=== PATIENT | female | born 1970 | race Hispanic/Latino ===

== ENCOUNTER 2017-12-10 20:14 | Emergency (ER) | payer OTHER ==
[2017-12-10 21:38] LABS: Potassium 4.1 mEq/L (3.6-5.0)
[2017-12-10 22:10] LABS: MCH 28.6 pg (27.0-35.0); MCV 86.6 fL (80-100); MPV 8.4 fL (7.6-11.3); RBC Red Blood Cell Count 3.47 M/uL (3.86-4.86)
[2017-12-10 22:32] LABS: Blood Morphology Comment NOT SEEN (NOT SEEN); Platelet Estimate ADEQ
--- NOTE | 2017-12-10 22:35 | ER ---
Nurse's Notes [facility] Name: Jazmín Perez Age: 47 yrs Sex: Female : 1970 Arrival Date: 12/10/2017 Time: 20:15 Bed 30 Private MD: Diagnosis: Chest pain, unspecified Presentation: 12/10 20:25 Presenting complaint: Patient states: left chest wall pain since 1500. pt c/o left arm ak1 pain with palpation. pt denies N/V, denies SOB. Transition of care: patient was not received from another setting of care. Onset of symptoms was December 10, 2017. Initial Sepsis Screen: Does the patient meet any 2 criteria? No. Patient's initial sepsis screen is negative. Does the patient have a suspected source of infection? No. Patient's initial sepsis screen is negative. Care prior to arrival: None. 20:25 Method Of Arrival: Ambulatory ak1 20:25 Acuity: LOU 3 ak1 Triage Assessment: 20:27 General: Appears in no apparent distress. General: Appears Behavior is calm, ak1 cooperative. Pain: Complains of pain in chest. EENT: No signs and/or symptoms were reported regarding the EENT system. Neuro: No deficits noted. Cardiovascular: Reports chest pain. Respiratory: No deficits noted. GI: No signs and/or symptoms were reported involving the gastrointestinal system. : No signs and/or symptoms were reported regarding the genitourinary system. Derm: No signs and/or symptoms reported regarding the dermatologic system. Musculoskeletal: No signs and/or symptoms reported regarding the musculoskeletal system. 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 - Social history:: Smoking status: Patient/guardian denies using tobacco. - Family history:: not pertinent. - Hospitalizations: : No recent hospitalization is reported. Assessment: 23:00 Reassessment: Patient appears in no apparent distress at this time. Patient is alert, aa1 oriented x 3, equal unlabored respirations, skin warm/dry/pink. Discussed d/c \T\ f/u instructions with pt; denies questions or concerns at this time Patient states feeling better. Vital Signs: 20:27 BP 137 / 61; Pulse 85; Resp 20; Temp 98.3(TE); Pulse Ox 98% on R/A; Weight 117.93 kg ak1 (R); Height 5 ft. 2 in. (157.48 cm) (R); Pain 7/10; 23:00 BP 122 / 76; Pulse 81; Resp 18; Pulse Ox 99% on R/A; Pain 0/10; aa1 20:27 Body Mass Index 47.55 (117.93 kg, 157.48 cm) ak1 ED Course: 20:15 Patient arrived in ED. al2 20:26 Triage completed. ak1 20:27 Arm band placed on Patient placed in an exam room, on a stretcher, Patient notified of ak1 wait time. 20:35 Krzysztof Em MD is Attending Physician. rn 20:43 EKG done, by ED staff, reviewed by Krzysztof Em MD. aa1 20:44 Dago Gunter, BERNABE is Primary Nurse. mb3 20:53 X-ray completed. Portable x-ray completed in exam room. Patient tolerated procedure ml well. 20:54 XRAY Chest (1 view) In Process Unspecified. EDMS 21:00 Inserted saline lock: 20 gauge in left forearm, using aseptic technique. Patient mb3 maintains SpO2 saturation greater than 95% on room air. 23:02 No provider procedures requiring assistance completed. IV discontinued, intact, aa1 bleeding controlled, No redness/swelling at site. Pressure dressing applied. Administered Medications: 22:56 Drug: Ibuprofen 800 mg Route: PO; aa1 23:04 Follow up: Response: No adverse reaction; Medication administered at discharge. aa1 Outcome: 22:33 Discharge ordered by MD. rn 23:00 Discharged to home ambulatory, with family. aa1 23:00 Condition: good 23:00 Discharge instructions given to patient, family, Instructed on discharge instructions, follow up and referral plans. medication usage, Demonstrated understanding of instructions, follow-up care, medications. 23:04 Patient left the ED. aa1 Signatures: Dispatcher [employer] EDMS Hermelinda Galo RN RN arlette1 Yeni Infante Roman, MD MD rn Krenek, Amber, RN RN della1 Oliva Henson Mark, RN RN mb3
--- NOTE | 2017-12-10 22:35 | EDPHYS ---
Physician Documentation [facility] Name: Jazmín Perez Age: 47 yrs Sex: Female : 1970 Arrival Date: 12/10/2017 Time: 20:15 Bed 30 Private MD: ED Physician Krzysztof Em HPI: 12/10 21:07 This 47 yrs old Female presents to ER via Ambulatory with complaints of Chest rn Pain, LEFT ARM NUMBNESS. 21:07 The patient or guardian reports chest pain that is located primarily in the anterior rn chest wall, left. Onset: today. The pain radiates to the left arm. The chest pain is described as aching. Duration: The patient or guardian reports a single episode, that is still ongoing. Severity of pain: At its worst the pain was mild in the emergency department the pain is unchanged. The patient has not experienced similar symptoms in the past. Reports doing normal stuff today, + left upper outer chest wall pain, shoots to proximal shoulder, no injury, left handed, does work with arms a lot, no fever/cough/sob, constant chest pain since this early afternoon. No famhx of early cardiac problems/SC. 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 - Social history:: Smoking status: Patient/guardian denies using tobacco. - Family history:: not pertinent. - Hospitalizations: : No recent hospitalization is reported. ROS: 21:07 Constitutional: Negative for fever, chills, and weight loss, Eyes: Negative for injury, rn pain, redness, and discharge, Neck: Negative for injury, pain, and swelling, Cardiovascular: Negative for edema, Respiratory: Negative for shortness of breath, cough, wheezing, and pleuritic chest pain, Abdomen/GI: Negative for abdominal pain, nausea, vomiting, diarrhea, and constipation, Back: Negative for injury and pain, MS/Extremity: Negative for injury and deformity, Skin: Negative for injury, rash, and discoloration, Neuro: Negative for headache, weakness, and seizure. Exam: 20:43 ECG was reviewed by the Attending Physician. rn 21:07 Constitutional: Overweight female, no acute distress Head/Face: Normocephalic, rn atraumatic. Eyes: Pupils equal round and reactive to light, extra-ocular motions intact. Lids and lashes normal. Conjunctiva and sclera are non-icteric and not injected. Cornea within normal limits. Periorbital areas with no swelling, redness, or edema. Neck: Trachea midline, no thyromegaly or masses palpated, and no cervical lymphadenopathy. Supple, full range of motion without nuchal rigidity, or vertebral point tenderness. No Meningismus. Chest/axilla: + reproducible left anterior/upper/outer chest tenderness, no crepitus Cardiovascular: Regular rate and rhythm with a normal S1 and S2. No gallops, murmurs, or rubs. Normal PMI, no JVD. No pulse deficits. Respiratory: Lungs have equal breath sounds bilaterally, clear to auscultation and percussion. No rales, rhonchi or wheezes noted. No increased work of breathing, no retractions or nasal flaring. Abdomen/GI: Soft, non-tender, with normal bowel sounds. No distension or tympany. No guarding or rebound. No evidence of tenderness throughout. Skin: Warm, dry with normal turgor. Normal color with no rashes, no lesions, and no evidence of cellulitis. MS/ Extremity: Pulses equal, no cyanosis. Neurovascular intact. Full, normal range of motion. Equal circumference. Neuro: Awake and alert, GCS 15, oriented to person, place, time, and situation. Cranial nerves II-XII grossly intact. Motor strength 5/5 in all extremities. Sensory grossly intact. Cerebellar exam normal. Normal gait. Vital Signs: 20:27 BP 137 / 61; Pulse 85; Resp 20; Temp 98.3(TE); Pulse Ox 98% on R/A; Weight 117.93 kg ak1 (R); Height 5 ft. 2 in. (157.48 cm) (R); Pain 7/10; 23:00 BP 122 / 76; Pulse 81; Resp 18; Pulse Ox 99% on R/A; Pain 0/10; aa1 20:27 Body Mass Index 47.55 (117.93 kg, 157.48 cm) ak1 MDM: 20:35 Patient medically screened. rn 20:43 ED course: no Change in ECG compared to 2007, twave inversions still present. rn 22:32 Differential diagnosis: acute myocardial infarction, acute pericarditis, coronary rn artery disease chest wall pain, costochondritis, esophagitis, gastritis, gastroesophageal reflux disease (GERD), pleurisy, pneumothorax. Data reviewed: vital signs, nurses notes, lab test result(s), EKG, radiologic studies, plain films, and as a result, I will discharge patient. Counseling: I had a detailed discussion with the patient and/or guardian regarding: the historical points, exam findings, and any diagnostic results supporting the discharge/admit diagnosis, lab results, radiology results, the need for outpatient follow up, to return to the emergency department if symptoms worsen or persist or if there are any questions or concerns that arise at home. Special discussion: Based on the patient's history, exam, and Dx evaluation, there is no indication for emergent intervention or inpatient Tx. It is understood by the patient/guardian that if the Sx's persist or worsen they need to return immediately for re-evaluation. I discussed with the patient/guardian in detail that at this point there is no indication for admission to the hospital. It is understood, however, that if the symptoms persist or worsen the patient needs to return immediately for re-evaluation. ED course: Reproducible chest wall tenderness, no change or ischemia on ecg, trop neg, will dc home with cardiology and pcp f/u. . 12/10 20:42 Order name: Basic Metabolic Panel; Complete Time: 22:30 rn 12/10 20:42 Order name: BNP; Complete Time: 22:30 rn 12/10 20:42 Order name: CBC with Diff rn 12/10 20:42 Order name: Troponin (emerg Dept Use Only); Complete Time: 22:30 rn 12/10 22:13 Order name: Manual Differential EDMS 12/10 22:32 Order name: Urine Dipstick--Ancillary (enter results) em1 12/10 20:42 Order name: Urine Dipstick-Ancillary (obtain specimen); Complete Time: 22:29 rn 12/10 20:42 Order name: Urine Test (obtain specimen); Complete Time: 22:29 rn 12/10 20:42 Order name: XRAY Chest (1 view) rn 12/10 20:42 Order name: EKG; Complete Time: 20:43 rn 12/10 20:42 Order name: Cardiac monitoring; Complete Time: 21:33 rn 12/10 20:42 Order name: EKG - Nurse/Tech; Complete Time: 20:48 rn 12/10 20:42 Order name: IV Saline Lock; Complete Time: 21:33 rn 12/10 20:42 Order name: Labs collected and sent; Complete Time: 21:33 rn 12/10 20:42 Order name: O2 Per Protocol; Complete Time: : rn 12/10 20:42 Order name: O2 Sat Monitoring; Complete Time: 21:33 rn EC:43 Rate is 74 beats/min. Rhythm is regular. QRS [place] is Normal. AK interval is normal. QRS rn interval is normal. QT interval is normal. No Q waves. T waves are Inverted in leads V1, V2, V3. No ST changes noted. Clinical impression: NSR w/ Non-specific ST/T Changes. Interpreted by me. Administered Medications: 22:56 Drug: Ibuprofen 800 mg Route: PO; aa1 23:04 Follow up: Response: No adverse reaction; Medication administered at discharge. aa1 Disposition: 12/10/17 22:33 Discharged to Home. Impression: Chest pain, unspecified. - Condition is Stable. - Discharge Instructions: Nonspecific Chest Pain, Chest Wall Pain, Pain Without a Known Cause. - Medication Reconciliation Form, Thank You Letter, Antibiotic Education, Prescription Opioid Use form. - Follow up: Private Physician; When: As needed; Reason: Recheck today's complaints, Re-evaluation by your physician. - Problem is new. - Symptoms have improved. Signatures: Dispatcher [employer] EDMS Hermelinda Galo, RN RN aa1 Krzysztof Em MD MD rn Krenek, Amber, RN RN ak1 Corrections: (The following items were deleted from the chart) 23:04 22:33 12/10/2017 22:33 Discharged to Home. Impression: Chest pain, unspecified. aa1 Condition is Stable. Forms are Medication Reconciliation Form, Thank You Letter, Antibiotic Education, Prescription Opioid Use. Follow up: Private Physician; When: As needed; Reason: Recheck today's complaints, Re-evaluation by your physician. Problem is new. Symptoms have improved. rn
[2017-12-10 22:52] LABS: Urine Blood NEGATIVE (NEG); Urine Glucose NEGATIVE (NEG); Urine Protein NEGATIVE (NEG)
[2017-12-10] MEDS ORDERED: IBUPROFEN 400 MG TAB ONE (22:56)
[2017-12-10 23:14] VITALS: BP 137/61; TEMP 98.3; O2SAT 98
--- NOTE | 2017-12-11 06:04 | EKG ---
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
--- NOTE | 2017-12-11 07:20 | RAD REPORT ---
EXAM DESCRIPTION: RAD - Chest Single View - 12/10/2017 8:56 pm CLINICAL HISTORY: Left chest wall pain COMPARISON: None. TECHNIQUE: AP portable chest image was obtained 2045 hours . FINDINGS: Low lung volumes are noted. No failure, infiltrate or mass. Heart and vasculature are norm al. No measurable pleural effusion and no pneumothorax. No gross bony abnormality seen. No acute aort ic findings suspected. IMPRESSION: No acute cardiopulmonary process.
== END 2017-12-10 23:04 | disposition home or self-care (01) ==
LOC: ER 20:14
DX: R07.9 Chest pain, unspecified (principal); E11.9 Type 2 diabetes mellitus without complications
CPT/HCPCS: 36415; 71045; 80048; 81003; 83880; 84484; 85025; 93005; 99284

== ENCOUNTER 2018-02-24 05:43 | Emergency (ER) | payer OTHER ==
[2018-02-24] MEDS ORDERED: FENTANYL CITR 100 MCG/2 ML ONE ×2 (06:16→07:16)
[2018-02-24] MEDS ORDERED: NA CHLORIDE 0.9% 1,000 ML ONE ×2 (06:16→09:19)
[2018-02-24] MEDS ORDERED: KETOROLAC 30 MG/ML INJ ONE (06:16)
[2018-02-24] MEDS ORDERED: ONDANSETRON 4 MG/2 ML VIAL ONE (06:16)
[2018-02-24 06:23] LABS: Absolute Lymphocytes (CBC) 3.1 K/uL (0.7-4.9); Absolute Neutrophil 5.3 K/uL (1.8-8.0); Basophils % 0.4 % (0-1.3); Eosinophils % 1.2 % (0-4.4); Hematocrit 33.9 % (36.0-45.0); Lymphocytes % 33.8 % (15.3-44.8); MCH 28.6 pg (27.0-35.0); MCV 86.8 fL (80-100); MPV 8.8 fL (7.6-11.3); Monocytes % 6.3 % (3.3-12.3); RBC Red Blood Cell Count 3.91 M/uL (3.86-4.86)
[2018-02-24 06:24] LABS: Absolute Monocytes 0.6 K/uL (0.1-1.3)
[2018-02-24 06:41] LABS: ALT/SGPT 23 U/L (12-78); AST/SGOT 16 U/L (15-37); Albumin 3.5 g/dL (3.4-5.0); Alkaline Phosphatase 100 U/L (45-117); Amylase Level 56 U/L (25-115); BUN Blood Urea Nitrogen 10 mg/dL (7-18); Bicarbonate 27 mmol/L (21-32); Bilirubin Direct < 0.1 mg/dL (0-0.2); Bilirubin Total 0.2 mg/dL (0.2-1.0); Glucose Level 101 mg/dL (74-106); Lipase 164 U/L (73-393); Potassium 3.5 mmol/L (3.5-5.1); Protein, Total 8.2 g/dL (6.4-8.2); Sodium Level 141 mmol/L (136-145)
--- NOTE | 2018-02-24 08:43 | RAD REPORT ---
EXAM DESCRIPTION: CT - Stone Protocol - 02/24/2018 6:45 am CLINICAL HISTORY: Abdominal pain. For 2 hours COMPARISON: June 2017 TECHNIQUE: Computed axial tomography of the abdomen pelvis was obtained without oral or IV contrast. Lack of IV and oral contrast limits evaluation of solid organs, bowel, and vessels. Coronal reformat billy images were obtained and reviewed. All CT scans are performed using dose optimization technique as appropriate and may include automated exposure control or mA/KV adjustment according to patient size. FINDINGS: A small calculus is present within each kidney. Mild left hydronephrosis is present. A 2 m illimeter calculus is present within the proximal left ureter. The liver, spleen, pancreas and adrenals appear grossly normal There is no evidence of diverticulitis. The appendix appears normal The gallbladder has been removed. A small hiatal hernia is present Spondylosis involves lumbar spine resulting in spinal stenosis IMPRESSION: 2 millimeter calculus within the proximal left ureter with mild left hydronephrosis
--- NOTE | 2018-02-24 09:09 | EDPHYS ---
Physician Documentation [facility] Name: Jazmín Perez Age: 47 yrs Sex: Female : 1970 Arrival Date: 02/24/2018 Time: 05:46 Bed 7 Private MD: ED Physician Robert Olsen HPI: 02/24 06:20 This 47 yrs old Female presents to ER via Wheelchair with complaints of flank snw and abd pain. 06:20 The patient complains of pain in the left mid back. The pain radiates to the left lower snw quadrant. Onset: The symptoms/episode began/occurred suddenly, at 05:00. Associated signs and symptoms: Pertinent positives: nausea, Pertinent negatives: dysuria, fever. Severity of pain: At its worst the pain was severe this morning, in the emergency department the pain is unchanged. The patient has not experienced similar symptoms in the past. The patient has not recently seen a physician. takes metformin, no allergies. 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 - Social history:: Smoking status: Patient/guardian denies using tobacco. - Ebola Screening: : No symptoms or risks identified at this time. ROS: 06:19 Constitutional: Negative for fever, chills, and weight loss, Eyes: Negative for injury, snw pain, redness, and discharge, ENT: Negative for injury, pain, and discharge, Neck: Negative for injury, pain, and swelling, Cardiovascular: Negative for chest pain, palpitations, and edema, Respiratory: Negative for shortness of breath, cough, wheezing, and pleuritic chest pain, : Negative for injury, bleeding, discharge, and swelling, MS/Extremity: Negative for injury and deformity, Skin: Negative for injury, rash, and discoloration, Neuro: Negative for headache, weakness, numbness, tingling, and seizure. 06:19 Abdomen/GI: Positive for abdominal pain, nausea. 06:19 Back: Positive for flank pain, on the left. Exam: 06:18 Constitutional: This is a well developed, well nourished patient who is awake, alert, snw and in no acute distress. Head/Face: Normocephalic, atraumatic. Eyes: Pupils equal round and reactive to light, extra-ocular motions intact. Lids and lashes normal. Conjunctiva and sclera are non-icteric and not injected. Cornea within normal limits. Periorbital areas with no swelling, redness, or edema. ENT: Nares patent. No nasal discharge, no septal abnormalities noted. Tympanic membranes are normal and external auditory canals are clear. Oropharynx with no redness, swelling, or masses, exudates, or evidence of obstruction, uvula midline. Mucous membranes moist. Neck: Trachea midline, no thyromegaly or masses palpated, and no cervical lymphadenopathy. Supple, full range of motion without nuchal rigidity, or vertebral point tenderness. No Meningismus. Chest/axilla: Normal chest wall appearance and motion. Nontender with no deformity. No lesions are appreciated. Cardiovascular: Regular rate and rhythm with a normal S1 and S2. No gallops, murmurs, or rubs. Normal PMI, no JVD. No pulse deficits. Respiratory: Lungs have equal breath sounds bilaterally, clear to auscultation and percussion. No rales, rhonchi or wheezes noted. No increased work of breathing, no retractions or nasal flaring. Skin: Warm, dry with normal turgor. Normal color with no rashes, no lesions, and no evidence of cellulitis. MS/ Extremity: Pulses equal, no cyanosis. Neurovascular intact. Full, normal range of motion. Neuro: Awake and alert, GCS 15, oriented to person, place, time, and situation. Cranial nerves II-XII grossly intact. Motor strength 5/5 in all extremities. Sensory grossly intact. Cerebellar exam normal. Normal gait. 06:18 Abdomen/GI: Inspection: abdomen appears normal, Bowel sounds: normal, Palpation: abdomen is soft and non-tender, in the shooting pain that is minimally reproducible to left lower quad. 06:18 Back: CVA tenderness, is absent, + shooting left flank pain. Vital Signs: 05:54 BP 155 / 96; Pulse 80; Resp 18; Temp 97.2(TE); Pulse Ox 100% on R/A; Weight 107.95 kg; lp1 Height 5 ft. 2 in. (157.48 cm); Pain 10/10; 06:27 BP 142 / 79; Pulse 67; Resp 22; Pulse Ox 97% on R/A; aa1 07:30 BP 120 / 73; Pulse 70; Resp 17; Pulse Ox 100% on R/A; tw2 08:30 BP 117 / 75; Pulse 73; Resp 17; Pulse Ox 95% on R/A; tw2 09:23 BP 124 / 72; Pulse 60; Resp 17; Pulse Ox 97% on R/A; tw2 09:59 BP 123 / 74; Pulse 64; Resp 17; Pulse Ox 95% on R/A; tw2 05:54 Body Mass Index 43.53 (107.95 kg, 157.48 cm) lp1 MDM: 06:11 Patient medically screened. snw 09:09 Data reviewed: vital signs, nurses notes. Data interpreted: Pulse oximetry: on room air snw is 95 %. Interpretation: acceptable. Counseling: I had a detailed discussion with the patient and/or guardian regarding: the historical points, exam findings, and any diagnostic results supporting the discharge/admit diagnosis, lab results, radiology results, the need for outpatient follow up, to return to the emergency department if symptoms worsen or persist or if there are any questions or concerns that arise at home. Special discussion: Based on the patient's Hx, exam, and Dx evaluation, there is no indication for emergent surgery or inpatient Tx. It is understood by the patient/guardian that if the Sx's persist or worsen they need to return immediately for re-evaluation. Based on the history and exam findings, there is no indication for further emergent testing or inpatient evaluation. I discussed with the patient/guardian the need to see the primary care provider for further evaluation of the symptoms. I discussed with the patient/guardian the need to see the urologist for further evaluation of the symptoms. 02/24 06:05 Order name: Amylase, Serum; Complete Time: 06:41 aa02/24 06:05 Order name: Basic Metabolic Panel; Complete Time: 06:41 aa02/24 06:05 Order name: CBC with Diff; Complete Time: 07:02 aa02/24 06:05 Order name: Creatinine for Radiology; Complete Time: 06:41 02/24 06:05 Order name: Hepatic Function; Complete Time: 06:41 02/24 06:05 Order name: Lipase; Complete Time: 06:41 02/24 06:05 Order name: Urine Microscopic Only; Complete Time: 09:51 02/24 06:13 Order name: CT Stone Protocol; Complete Time: 08:49 snw 02/24 09:19 Order name: Urine Dipstick--Ancillary (enter results); Complete Time: 09:49 bd 02/24 09:19 Order name: Urine --Ancillary (enter results); Complete Time: 09:49 bd 02/24 06:05 Order name: IV Saline Lock; Complete Time: 06:05 02/24 06:05 Order name: Labs collected and sent; Complete Time: 06:05 02/24 06:05 Order name: Urine Dipstick-Ancillary (obtain specimen); Complete Time: 09:19 aa Administered Medications: 06:25 Drug: Zofran 4 mg Route: IVP; Site: right forearm; aa1 07:49 Follow up: Response: No adverse reaction tw2 06:26 Drug: fentaNYL (PF) 50 mcg Route: IVP; Site: right forearm; aa1 07:49 Follow up: Response: No adverse reaction tw2 06:26 Drug: NS 0.9% 1000 ml Route: IV; Rate: 1 bolus; Site: right forearm; aa1 09:11 Follow up: Response: No adverse reaction; IV Status: Completed infusion; IV Intake: tw2 1000ml 06:26 Drug: TORadol 30 mg Route: IVP; Site: right forearm; aa1 07:49 Follow up: Response: No adverse reaction; Pain is unchanged, physician notified tw2 07:15 Drug: fentaNYL (PF) 50 mcg Route: IVP; Site: right forearm; tw2 09:14 Follow up: Response: No adverse reaction 09:14 Drug: Flomax 0.4 mg Route: PO; 09:24 Follow up: Response: No adverse reaction 09:18 Drug: NS 0.9% 1000 ml Route: IV; Rate: 1 bolus; Site: right forearm; tw2 10:22 Follow up: Response: No adverse reaction; IV Status: Completed infusion; IV Intake: tw2 1000ml Disposition: 02/24/18 09:08 Discharged to Home. Impression: Hydronephrosis with renal and ureteral calculous obstruction. - Condition is Stable. - Discharge Instructions: Kidney Stones, Dietary Guidelines to Help Prevent Kidney Stones. - Prescriptions for Zofran 4 mg Oral Tablet - take 1 tablet by ORAL route every 12 hours As needed; 20 tablet. Diclofenac Sodium 75 mg Oral Tablet Sustained Release - take 1 tablet by ORAL route 2 times per day; 30 tablet. - Work release form, Medication Reconciliation Form, Thank You Letter, Antibiotic Education, Prescription Opioid Use form. - Follow up: Private Physician; When: 1 - 2 days; Reason: Recheck today's complaints, Continuance of care, Re-evaluation by your physician. Follow up: Emergency Department; When: As needed; Reason: Worsening of condition. Signatures: Dispatcher [employer] EDMS Hermelinda Galo RN RN aa1 Anusha Hernandez, RENAN-C FARM OPERATIONS MANAGER-Hilariaw Ailyn Luna RN RN lp1 Donna Jenkins RN RN tw2 Corrections: (The following items were deleted from the chart) 10:23 09:08 02/24/2018 09:08 Discharged to Home. Impression: Hydronephrosis with renal and tw2 ureteral calculous obstruction. Condition is Stable. Forms are Medication Reconciliation Form, Thank You Letter, Antibiotic Education, Prescription Opioid Use. Follow up: Private Physician; When: 1 - 2 days; Reason: Recheck today's complaints, Continuance of care, Re-evaluation by your physician. Follow up: Emergency Department; When: As needed; Reason: Worsening of condition. snw
--- NOTE | 2018-02-24 09:09 | ER ---
Nurse's Notes [facility] Name: Jazmín Perez Age: 47 yrs Sex: Female : 1970 Arrival Date: 02/24/2018 Time: 05:46 Bed 7 Private MD: Diagnosis: Hydronephrosis with renal and ureteral calculous obstruction Presentation: 02/24 05:52 Presenting complaint: Patient states: Pain to left low back radiating to abdomen that lp1 began 2 hours ago; Denies any pain with urination; states nausea at this time. Transition of care: patient was not received from another setting of care. Onset of symptoms was February 24, 2018 at 04:00. Risk Assessment: Do you want to hurt yourself or someone else? Patient reports no desire to harm self or others. Initial Sepsis Screen: Does the patient meet any 2 criteria? No. Patient's initial sepsis screen is negative. Does the patient have a suspected source of infection? No. Patient's initial sepsis screen is negative. Care prior to arrival: None. 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 - Social history:: Smoking status: Patient/guardian denies using tobacco. - Ebola Screening: : No symptoms or risks identified at this time. Screenin:57 Abuse screen: Denies threats or abuse. Denies injuries from another. Nutritional lp1 screening: No deficits noted. Tuberculosis screening: No symptoms or risk factors identified. Fall Risk None identified. Assessment: 06:00 General: Appears in no apparent distress. uncomfortable, obese, Behavior is aa1 cooperative, appropriate for age, restless. Pain: Complains of pain in left lower quadrant and left mid back Pain currently is 10 out of 10 on a pain scale. Quality of pain is described as sharp, stabbing, Pain began 2 hours ago. Is continuous. Neuro: Level of Consciousness is awake, alert, obeys commands, Oriented to person, place, time, situation, Moves all extremities. Full function Speech is normal. Cardiovascular: Heart tones S1 S2 present. Respiratory: Airway is patent Respiratory effort is even, unlabored, Respiratory pattern is regular, symmetrical. GI: Abdomen is obese, Abd is soft X 4 quads Reports lower abdominal pain, nausea. : Reports pain in left flank(s). EENT: No signs and/or symptoms were reported regarding the EENT system. Derm: Skin is intact, is healthy with good turgor, Skin is pink, warm \\T\\ dry. Musculoskeletal: Circulation, motion, and sensation intact. Capillary refill < 3 seconds. 06:40 Reassessment: Patient appears in no apparent distress at this time. Patient and/or aa1 family updated on plan of care and expected duration. Pain level reassessed. Patient is alert, oriented x 3, equal unlabored respirations, skin warm/dry/pink. Awaiting CT results. Pt reports she is still in pain. 07:30 Reassessment: Patient appears in no apparent distress at this time. Patient and/or tw2 family updated on plan of care and expected duration. Pain level reassessed. Patient is alert, oriented x 3, equal unlabored respirations, skin warm/dry/pink. Patient states symptoms have not improved. 08:30 Reassessment: No changes from previously documented assessment. Patient and/or family tw2 updated on plan of care and expected duration. Pain level reassessed. Patient is alert, oriented x 3, equal unlabored respirations, skin warm/dry/pink. 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 09:23 Reassessment: Patient appears in no apparent distress at this time. No changes from tw2 previously documented assessment. Patient and/or family updated on plan of care and expected duration. Pain level reassessed. Patient is alert, oriented x 3, equal unlabored respirations, skin warm/dry/pink. Vital Signs: 05:54 BP 155 / 96; Pulse 80; Resp 18; Temp 97.2(TE); Pulse Ox 100% on R/A; Weight 107.95 kg; lp1 Height 5 ft. 2 in. (157.48 cm); Pain 10/10; 06:27 BP 142 / 79; Pulse 67; Resp 22; Pulse Ox 97% on R/A; aa1 07:30 BP 120 / 73; Pulse 70; Resp 17; Pulse Ox 100% on R/A; tw2 08:30 BP 117 / 75; Pulse 73; Resp 17; Pulse Ox 95% on R/A; tw2 09:23 BP 124 / 72; Pulse 60; Resp 17; Pulse Ox 97% on R/A; tw2 09:59 BP 123 / 74; Pulse 64; Resp 17; Pulse Ox 95% on R/A; tw2 05:54 Body Mass Index 43.53 (107.95 kg, 157.48 cm) lp1 ED Course: 05:46 Patient arrived in ED. bb 05:54 Triage completed. lp1 05:54 Arm band placed on left wrist. lp1 05:57 Patient has correct armband on for positive identification. Bed in low position. Call lp1 light in reach. Pulse ox on. NIBP on. 06:06 Initial lab(s) drawn, by me, sent to lab. Inserted saline lock: 20 gauge in right aa1 forearm, using aseptic technique. Blood collected. 06:11 [facility]usha Hernandez FNP-C [facility] snw 06:11 Robert Olsen MD is Attending Physician. snw 06:21 Radiology exam delayed due to test not completed at this time. kw1 06:[address] via wheelchair. kw1 06:43 CT completed. Patient tolerated procedure well. Patient moved back from CT. kw1 06:44 CT Stone Protocol In Process Unspecified. EDMS 07:00 Report given to Donna Jenkins RN and Virginia Eubanks RN. aa1 07:14 Donna Jenkins, BERNABE is Primary Nurse. tw2 09:22 Awaiting: completion of IV fluids PRIOR to discharge. tw2 10:22 No provider procedures requiring assistance completed. IV discontinued, intact, tw2 bleeding controlled, No redness/swelling at site. Pressure dressing applied. Administered Medications: 06:25 Drug: Zofran 4 mg Route: IVP; Site: right forearm; aa1 07:49 Follow up: Response: No adverse reaction tw2 06:26 Drug: fentaNYL (PF) 50 mcg Route: IVP; Site: right forearm; aa1 07:49 Follow up: Response: No adverse reaction tw2 06:26 Drug: NS 0.9% 1000 ml Route: IV; Rate: 1 bolus; Site: right forearm; aa1 09:11 Follow up: Response: No adverse reaction; IV Status: Completed infusion; IV Intake: tw2 1000ml 06:26 Drug: TORadol 30 mg Route: IVP; Site: right forearm; aa1 07:49 Follow up: Response: No adverse reaction; Pain is unchanged, physician notified tw2 07:15 Drug: fentaNYL (PF) 50 mcg Route: IVP; Site: right forearm; tw2 09:14 Follow up: Response: No adverse reaction tw2 09:14 Drug: Flomax 0.4 mg Route: PO; tw2 09:24 Follow up: Response: No adverse reaction tw2 09:18 Drug: NS 0.9% 1000 ml Route: IV; Rate: 1 bolus; Site: right forearm; tw2 10:22 Follow up: Response: No adverse reaction; IV Status: Completed infusion; IV Intake: tw2 1000ml Intake: 09:11 IV: 1000ml; Total: 1000ml. tw2 10:22 IV: 1000ml; Total: 2000ml. 2 Outcome: 09:08 Discharge ordered by . snradha 10:22 Discharged to home ambulatory. tw 10:22 Condition: stable 10:22 Discharge instructions given to patient, Instructed on discharge instructions, follow up and referral plans. medication usage, Demonstrated understanding of instructions, follow-up care, medications, Prescriptions given X 2. 10:23 Patient left the ED. tw2 Signatures: Dispatcher [employer] EDMS Hermelinda Galo RN RN aa1 Anusha Hernandez, DISABILITY AIDE-C DISABILITY AIDE-Csnw Jennifer Dillon RN RN bb Ailyn Luna RN RN lp1 Donna Jenkins RN RN tw2 Nicky Churchill [facility]
[2018-02-24] MEDS ORDERED: TAMSULOSIN 0.4 MG SR CAP ONE (09:16)
[2018-02-24 09:44] LABS: Urine Blood 3+ (NEG); Urine Glucose NEGATIVE (NEG); Urine Protein 2+ (NEG); Urine Specific Gravity >1.030 (1.005-1.030)
[2018-02-24 09:50] LABS: Urine Bacteria <20 /HPF (<20); Urine RBC >50 /HPF (NONE SEEN)
[2018-02-24 09:51] LABS: Urine Culture Reflex Order NOT NEEDED; Urine Mucus 1+ /HPF (NONE SEEN)
[2018-02-24 10:29] VITALS: TEMP 97.2
[2018-02-24 10:35] VITALS: BP 123/74; O2SAT 95
== END 2018-02-24 10:23 | disposition home or self-care (01) ==
LOC: ER 05:43
DX: N13.2 Hydronephrosis with renal and ureteral calculous obstruction (principal); E11.9 Type 2 diabetes mellitus without complications; Z88.5 Allergy status to narcotic agent
CPT/HCPCS: 36415; 74176; 76377; 80048; 80076; 81003; 81015; 81025; 82150; 83690; 85025; 96361; 96374; 96375; 99284; J2405; J3010; J7030

== ENCOUNTER 2018-03-16 15:16 | Emergency (ER) | payer OTHER ==
--- NOTE | 2018-03-16 16:17 | RAD REPORT ---
EXAM DESCRIPTION: CTSpine Lumbar Wo Con03/16/2018 4:07 pm CLINICAL HISTORY: Right leg radiculopathy COMPARISON: None TECHNIQUE: Computed axial tomography lumbar spine was obtained with coronal and sagittal reconstruct ion. All CT scans are performed using dose optimization technique as appropriate and may include automated exposure control or mA/KV adjustment according to patient size. FINDINGS: No fracture is seen. No dislocation is noted. Spondylosis involves the distal thoracic spine L1-2, L2-3 and L3-4 demonstrate no significant abnormality. Disc bulge with ligamentum flavum and facet hypertrophy is present at L4-5. The thecal sac measures a bout 8.5 millimeters. Mild to moderate narrowing of the right neural foramina is present L5-S1 appears unremarkable IMPRESSION: Negative for a lumbar fracture. Spondylosis most marked at L4-5 resulting in mild central and mild to moderate right foraminal stenos is. If clinically indicated further evaluation could be obtained with MRI
[2018-03-16] MEDS ORDERED: FENTANYL CITR 100 MCG/2 ML ONE (16:21)
--- NOTE | 2018-03-16 17:00 | EDPHYS ---
Physician Documentation [facility] Name: Jazmín Perez Age: 47 yrs Sex: Female : 1970 Arrival Date: 03/16/2018 Time: 15:19 Bed 24 Private MD: Mahendra Moses M ED Physician Onel Rausch HPI: 03/16 16:00 This 47 yrs old Female presents to ER via Wheelchair with complaints of Leg snw Pain. 16:00 The patient presents with pain, that is acute. The complaints affect the right knee. snw Context: The problem was sustained at a parking lot, resulted from an unknown cause, the patient can partially bear weight, the patient is not able to ambulate, Problem is a result from a previous injury: No. Onset: The symptoms/episode began/occurred suddenly, just prior to arrival. Associated signs and symptoms: The patient has no apparent associated signs or symptoms. Treatment prior to arrival includes: no previous treatment. Severity of symptoms: At their worst the symptoms were moderate, severe. The patient has not experienced similar symptoms in the past. It is unknown whether or not the patient has recently seen a physician. hx of NIDDM. 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 - Social history:: Smoking status: Patient/guardian denies using tobacco. - Ebola Screening: : No symptoms or risks identified at this time. ROS: 16:04 Constitutional: Negative for fever, chills, and weight loss, Eyes: Negative for injury, snw pain, redness, and discharge, ENT: Negative for injury, pain, and discharge, Neck: Negative for injury, pain, and swelling, Cardiovascular: Negative for chest pain, palpitations, and edema, Respiratory: Negative for shortness of breath, cough, wheezing, and pleuritic chest pain, Abdomen/GI: Negative for abdominal pain, nausea, vomiting, diarrhea, and constipation, Back: Negative for injury and pain, : Negative for injury, bleeding, discharge, and swelling, Skin: Negative for injury, rash, and discoloration, Neuro: Negative for headache, weakness, numbness, tingling, and seizure, Psych: Negative for depression, anxiety, suicide ideation, homicidal ideation, and hallucinations. 16:04 MS/extremity: Positive for injury or acute deformity, pain, of the right knee. Exam: 16:04 Constitutional: This is a well developed, well nourished patient who is awake, alert, snw and in no acute distress. Head/Face: Normocephalic, atraumatic. Eyes: Pupils equal round and reactive to light, extra-ocular motions intact. Lids and lashes normal. Conjunctiva and sclera are non-icteric and not injected. Cornea within normal limits. Periorbital areas with no swelling, redness, or edema. ENT: Nares patent. No nasal discharge, no septal abnormalities noted. Tympanic membranes are normal and external auditory canals are clear. Oropharynx with no redness, swelling, or masses, exudates, or evidence of obstruction, uvula midline. Mucous membranes moist. Neck: Trachea midline, no thyromegaly or masses palpated, and no cervical lymphadenopathy. Supple, full range of motion without nuchal rigidity, or vertebral point tenderness. No Meningismus. Chest/axilla: Normal chest wall appearance and motion. Nontender with no deformity. No lesions are appreciated. Cardiovascular: Regular rate and rhythm with a normal S1 and S2. No gallops, murmurs, or rubs. Normal PMI, no JVD. No pulse deficits. Respiratory: Lungs have equal breath sounds bilaterally, clear to auscultation and percussion. No rales, rhonchi or wheezes noted. No increased work of breathing, no retractions or nasal flaring. Abdomen/GI: Soft, non-tender, with normal bowel sounds. No distension or tympany. No guarding or rebound. No evidence of tenderness throughout. Back: No spinal tenderness. No costovertebral tenderness. Full range of motion. Skin: Warm, dry with normal turgor. Normal color with no rashes, no lesions, and no evidence of cellulitis. Neuro: Awake and alert, GCS 15, oriented to person, place, time, and situation. Cranial nerves II-XII grossly intact. Motor strength 5/5 in all extremities. Sensory grossly intact. Cerebellar exam normal. Normal gait. Psych: Awake, alert, with orientation to person, place and time. Behavior, mood, and affect are within normal limits. 16:04 Musculoskeletal/extremity: pt unable to locate any tenderness but states she cannot bear weight or ambulate on right leg suddenly this am. Vital Signs: 15:45 BP 132 / 80; Pulse 93; Resp 22; Temp 98.5; Pulse Ox 98% ; Weight 113.4 kg; Height 5 ft. jl7 2 in. (157.48 cm); Pain 10/10; 16:21 BP 120 / 67; Pulse 83; Resp 18; Pulse Ox 96% on R/A; tl3 17:58 BP 141 / 81; Pulse 83; Resp 18; Pulse Ox 100% ; tl3 15:45 Body Mass Index 45.73 (113.40 kg, 157.48 cm) jl7 MDM: 15:48 Patient medically screened. snw 17:01 Data reviewed: vital signs, nurses notes. Data interpreted: Pulse oximetry: on room air snw is 96 %. Interpretation: acceptable. Counseling: I had a detailed discussion with the patient and/or guardian regarding: the historical points, exam findings, and any diagnostic results supporting the discharge/admit diagnosis, radiology results, the need for outpatient follow up, to return to the emergency department if symptoms worsen or persist or if there are any questions or concerns that arise at home. Special discussion: Based on the history and exam findings, there is no indication for further emergent testing or inpatient evaluation. I discussed with the patient/guardian the need to see the back specialist for further evaluation of the symptoms. I discussed with the patient/guardian the need to see the primary care provider for further evaluation of the symptoms. 03/16 15:54 Order name: CT Lumbar Spine Wo Con; Complete Time: 16:19 snw Administered Medications: 16:21 Drug: fentaNYL (PF) 50 mcg Route: IM; Site: left gluteus; tl3 18:00 Follow up: Response: No adverse reaction tl3 17:00 Drug: Valium 2 mg Route: PO; tl3 18:00 Follow up: Response: No adverse reaction tl3 Disposition: 03/17 11:16 Co-signature as Attending Physician, Onel Rausch MD I agree with the assessment and jae plan of care. Disposition: 03/16/18 16:59 Discharged to Home. Impression: Spondylosis, unspecified, Radiculopathy, lumbar region. - Condition is Stable. - Discharge Instructions: Back Pain, Adult, Lumbosacral Radiculopathy, Cryotherapy, Heat Therapy, Back Exercises, Back Injury Prevention. - Prescriptions for Diclofenac Sodium 75 mg Oral Tablet Sustained Release - take 1 tablet by ORAL route 2 times per day; 30 tablet. orphenadrine citrate 100 mg Oral Tablet Sustained Release - take 1 tablet by ORAL route 2 times per day As needed; 20 tablet. - Medication Reconciliation Form, Thank You Letter, Antibiotic Education, Prescription Opioid Use, Work release form form. - Follow up: Private Physician; When: 1 - 2 days; Reason: Recheck today's complaints, Continuance of care, Re-evaluation by your physician. Follow up: Emergency Department; When: As needed; Reason: Worsening of condition. - Problem is new. - Symptoms are unchanged. Signatures: Dispatcher [employer] EDID Onel Rausch MD MD cha Therrien, Shelly, TIE SAWYER-C TIE SAWYER-Csnw Marylou Warren RN RN jl7 Kelsi Rosales, RN RN tl3 Corrections: (The following items were deleted from the chart) 03/16 18:01 16:59 03/16/2018 16:59 Discharged to Home. Impression: Spondylosis, unspecified; tl3 Radiculopathy, lumbar region. Condition is Stable. Forms are Medication Reconciliation Form, Thank You Letter, Antibiotic Education, Prescription Opioid Use. Follow up: Private Physician; When: 1 - 2 days; Reason: Recheck today's complaints, Continuance of care, Re-evaluation by your physician. Follow up: Emergency Department; When: As needed; Reason: Worsening of condition. Problem is new. Symptoms are unchanged. snw
--- NOTE | 2018-03-16 17:00 | ER ---
Nurse's Notes [facility] Name: Jazmín Perez Age: 47 yrs Sex: Female : 1970 Arrival Date: 03/16/2018 Time: 15:19 Bed 24 Private MD: Mahendra Moses M Diagnosis: Spondylosis, unspecified;Radiculopathy, lumbar region Presentation: 03/16 15:42 Presenting complaint: Patient states: Right leg pain began at 1200, reports unable to jl7 walk. Denies any trauma. Transition of care: patient was not received from another setting of care. Onset of symptoms was March 16, 2018 at 12:00. Risk Assessment: Do you want to hurt yourself or someone else? Patient reports no desire to harm self or others. Initial Sepsis Screen: Does the patient meet any 2 criteria? No. Patient's initial sepsis screen is negative. Does the patient have a suspected source of infection? No. Patient's initial sepsis screen is negative. Care prior to arrival: None. 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 - Social history:: Smoking status: Patient/guardian denies using tobacco. - Ebola Screening: : No symptoms or risks identified at this time. Screenin:00 Abuse screen: Denies threats or abuse. Nutritional screening: No deficits noted. tl3 Tuberculosis screening: No symptoms or risk factors identified. Fall Risk None identified. Assessment: 16:00 General: Appears distressed, uncomfortable, well groomed, well developed, well tl3 nourished, Behavior is calm, cooperative, appropriate for age, anxious. Pain: Complains of pain in right hamstring, posterior aspect of right knee and right calf Pain currently is 10 out of 10 on a pain scale. Aggravated by weight bearing. Neuro: Level of Consciousness is awake, alert, obeys commands, Oriented to person, place, time, situation, Appropriate for age. Cardiovascular: Patient's skin is warm and dry. Respiratory: Airway is patent Respiratory effort is even, unlabored, Respiratory pattern is regular, symmetrical. GI: No signs and/or symptoms were reported involving the gastrointestinal system. : No signs and/or symptoms were reported regarding the genitourinary system. EENT: No signs and/or symptoms were reported regarding the EENT system. Derm: No signs and/or symptoms reported regarding the dermatologic system. Musculoskeletal: Range of motion: limited in right leg. Injury Description: Puncture no injury reported, pt was ambulating into work when her right leg began hurting, was unable to bear weight and can not fully extend right leg. 17:58 Reassessment: No changes from previously documented assessment. Patient and/or family tl3 updated on plan of care and expected duration. Pain level reassessed. Patient is alert, oriented x 3, equal unlabored respirations, skin warm/dry/pink. pt still having difficulty with using right leg, meds helped but did not completely take away the pain. Vital Signs: 15:45 BP 132 / 80; Pulse 93; Resp 22; Temp 98.5; Pulse Ox 98% ; Weight 113.4 kg; Height 5 ft. jl7 2 in. (157.48 cm); Pain 10/10; 16:21 BP 120 / 67; Pulse 83; Resp 18; Pulse Ox 96% on R/A; tl3 17:58 BP 141 / 81; Pulse 83; Resp 18; Pulse Ox 100% ; tl3 15:45 Body Mass Index 45.73 (113.40 kg, 157.48 cm) jl7 ED Course: 15:19 Patient arrived in ED. sb2 15:20 Mahendra Moses MD is Private Physician. sb2 15:44 Triage completed. jl7 15:45 Arm band placed on right wrist. jl7 15:47 [facility]C [facility] snw 15:47 Onel Rausch MD is Attending Physician. snw 15:54 Kelsi Rosales, BERNABE is Primary Nurse. tl3 15:[address] nj 16:00 Patient has correct armband on for positive identification. Bed in low position. Call tl3 light in reach. Pulse ox on. NIBP on. 16:00 No provider procedures requiring assistance completed. tl3 16:04 CT completed. Patient tolerated procedure well. Patient moved back from CT. vm2 16:06 CT Lumbar Spine Wo Con In Process Unspecified. EDMS 17:58 Patient did not have IV access during this emergency room visit. tl3 Administered Medications: 16:21 Drug: fentaNYL (PF) 50 mcg Route: IM; Site: left gluteus; tl3 18:00 Follow up: Response: No adverse reaction tl3 17:00 Drug: Valium 2 mg Route: PO; tl3 18:00 Follow up: Response: No adverse reaction tl3 Outcome: 16:59 Discharge ordered by . amol 17:58 Discharged to home via wheelchair. tl3 17:58 Condition: stable 17:58 Discharge instructions given to patient, Instructed on discharge instructions, Demonstrated understanding of instructions, follow-up care, Prescriptions given X 2. 18:01 Patient left the ED. tl3 Signatures: Dispatcher [employer] EDVT Anusha Hernandez, DUMP OPERATOR-C DUMP OPERATOR-Csnw Davin Joaquin Jahala, RN RN jl7 Rhiannon Bocanegra 2 Brigid Resendiz2 Kelsi Rosales, RN RN tl3
[2018-03-16] MEDS ORDERED: DIAZEPAM 2 MG TABLET ONE (17:03)
[2018-03-16 18:21] VITALS: TEMP 98.5
[2018-03-16 18:23] VITALS: BP 141/81; O2SAT 100
== END 2018-03-16 18:01 | disposition home or self-care (01) ==
LOC: ER 15:16
DX: M47.9 Spondylosis, unspecified (principal); M54.16 Radiculopathy, lumbar region; E11.9 Type 2 diabetes mellitus without complications; Z88.5 Allergy status to narcotic agent
CPT/HCPCS: 72131; 96372; 99284; J3010

== ENCOUNTER 2018-12-05 19:24 | Emergency (ER) | payer OTHER ==
[2018-12-05 20:32] LABS: Absolute Lymphocytes (CBC) 3.1 K/uL (0.7-4.9); Absolute Monocytes 0.7 K/uL (0.1-1.3); Absolute Neutrophil 5.1 K/uL (1.8-8.0); Basophils % 0.4 % (0-1.3); Hematocrit 33.5 % (36.0-45.0); Lymphocytes % 34.3 % (15.3-44.8); Monocytes % 7.5 % (3.3-12.3); RBC Red Blood Cell Count 3.85 M/uL (3.86-4.86)
[2018-12-05] MEDS ORDERED: MEPERIDINE HCL 25 MG/0.5 ML ONE (20:38)
[2018-12-05] MEDS ORDERED: ONDANSETRON 4 MG/2 ML VIAL ONE (20:38)
[2018-12-05] MEDS ORDERED: ACETAMINOPHEN 325 MG TABLET ONE (20:38)
[2018-12-05 20:50] LABS: ALT/SGPT 17 U/L (12-78); AST/SGOT 13 U/L (15-37); Albumin 3.4 g/dL (3.4-5.0); Alkaline Phosphatase 97 U/L (45-117); BUN Blood Urea Nitrogen 17 mg/dL (7-18); Bicarbonate 28 mmol/L (21-32); Bilirubin Direct < 0.1 mg/dL (0-0.2); Bilirubin Total 0.2 mg/dL (0.2-1.0); Glucose Level 107 mg/dL (74-106); Lipase 194 U/L (73-393); Potassium 3.9 mmol/L (3.5-5.1); Protein, Total 7.7 g/dL (6.4-8.2); Sodium Level 144 mmol/L (136-145)
[2018-12-05] MEDS ORDERED: MORPHINE 4 MG/ML SYR ONE (21:52)
--- NOTE | 2018-12-06 02:50 | ER ---
Nurse's Notes [facility] Name: Jazmín Perez Age: 48 yrs Sex: Female : 1970 Arrival Date: 12/05/2018 Time: 19:25 Bed 19 Private MD: Diagnosis: Unspecified abdominal pain Presentation: 12/05 19:30 Presenting complaint: Patient states: The lower left part of my stomach has been ed1 hurting. It started last week and went away some. Then it started back about 2 hours ago. Transition of care: patient was not received from another setting of care. Onset of symptoms was November 28, 2018. Risk Assessment: Do you want to hurt yourself or someone else? Patient reports no desire to harm self or others. Initial Sepsis Screen: Does the patient meet any 2 criteria? No. Patient's initial sepsis screen is negative. Does the patient have a suspected source of infection? No. Patient's initial sepsis screen is negative. Care prior to arrival: None. 19:30 Method Of Arrival: Wheelchair ed1 19:30 Acuity: LOU 3 ed1 Triage Assessment: 19:33 General: Appears uncomfortable, Behavior is calm, cooperative. Pain: Complains of pain ed1 in left lower quadrant Pain currently is 9 out of 10 on a pain scale. Quality of pain is described as unable to describe. Pt states "It's just there". GI: Abdomen is obese, Reports lower abdominal pain, Patient currently denies diarrhea, nausea, vomiting. 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 - Social history:: Smoking status: Patient/guardian denies using tobacco. - Ebola Screening: : Patient negative for fever greater than or equal to 101.5 degrees Fahrenheit, and additional compatible Ebola Virus Disease symptoms Patient denies exposure to infectious person Patient denies travel to an Ebola-affected area in the 21 days before illness onset. - Family history:: not pertinent. - Hospitalizations: : No recent hospitalization is reported. Screenin:08 Abuse screen: Denies threats or abuse. Denies injuries from another. Nutritional aj1 screening: No deficits noted. Tuberculosis screening: No symptoms or risk factors identified. 12/06 03:05 Fall Risk None identified. Assessment: 12/05 20:08 General: Appears in no apparent distress. uncomfortable, Behavior is cooperative, aj1 restless. Pain: Complains of pain in left lower quadrant. Neuro: Level of Consciousness is awake, alert, obeys commands, Oriented to person, place, time, situation. Cardiovascular: Patient's skin is warm and dry. Respiratory: Airway is patent Respiratory effort is even, unlabored, Respiratory pattern is regular, symmetrical. GI: Abdomen is distended, non-distended, Bowel sounds present X 4 quads. Abd is soft and non tender X 4 quads. Patient currently denies diarrhea, nausea, vomiting. : Denies burning with urination, discharge, urinary frequency, urgency, vaginal bleeding. EENT: No signs and/or symptoms were reported regarding the EENT system. Derm: No signs and/or symptoms reported regarding the dermatologic system. Skin is pink, warm \\T\\ dry. normal. Musculoskeletal: No signs and/or symptoms reported regarding the musculoskeletal system. Circulation, motion, and sensation intact. 21:05 Reassessment: Patient appears in no apparent distress at this time. No changes from aj1 previously documented assessment. Patient and/or family updated on plan of care and expected duration. Pain level reassessed. Patient states that her pain has not improved yet. 21:55 Reassessment: Patient states that her pain has not improved at all since she was given aj1 IV Demerol. Notified Dr. Em. Order received. 22:07 Reassessment: Patient states that she is cold, patient was provided with a warm aj1 blanket. Lights dimmed per patient request. 23:38 Reassessment: Patient appears in no apparent distress at this time. No changes from previously documented assessment. Patient and/or family updated on plan of care and expected duration. Pain level reassessed. 12/06 00:01 Reassessment: Pt complained of pain and nausea. Discussed with Dr Em and pt to get fc phenergan and Ns bolus. 00:35 Reassessment: Patient appears in no apparent distress at this time. No changes from previously documented assessment. Patient and/or family updated on plan of care and expected duration. Pain level reassessed. 01:13 Reassessment: Patient appears in no apparent distress at this time. No changes from previously documented assessment. Patient and/or family updated on plan of care and expected duration. Pain level reassessed. Patient is alert, oriented x 3, equal unlabored respirations, skin warm/dry/pink. 02:51 Reassessment: Patient appears in no apparent distress at this time. Patient and/or family updated on plan of care and expected duration. Pain level reassessed. Patient is alert, oriented x 3, equal unlabored respirations, skin warm/dry/pink. Patient states feeling better. Patient states symptoms have improved. Vital Signs: 12/05 19:33 BP 119 / 73; Pulse 106; Resp 20; Temp 99.1; Pulse Ox 99% on R/A; Height 5 ft. 2 in. ed1 (157.48 cm); Pain 9/10; 20:30 BP 113 / 76; Pulse 92; Resp 18; Pulse Ox 97% on R/A; aj1 21:30 BP 118 / 78; Pulse 84; Resp 16; Pulse Ox 97% on R/A; aj1 22:35 BP 110 / 75; Pulse 74; Resp 18; Pulse Ox 99% on R/A; 23:38 BP 146 / 100; Pulse 74; Resp 18; Pulse Ox 99% on R/A; 12/06 00:15 BP 126 / 70; Pulse 76; Resp 18; Pulse Ox 94% on R/A; 01:14 BP 98 / 82; Pulse 87; Resp 18; Pulse Ox 95% on R/A; 02:51 BP 114 / 80; Pulse 77; Resp 18; Pulse Ox 96% on R/A; 12/05 19:33 Pt unable to provide weight ed1 ED Course: 19:25 Patient arrived in ED. ss4 19:31 Triage completed. ed1 19:33 Arm band placed on right wrist. ed1 20:03 Krzysztof Em MD is Attending Physician. rn 20:08 Rosario Blackwell, BERNABE is Primary Nurse. aj1 20:08 Patient has correct armband on for positive identification. aj1 20:08 No provider procedures requiring assistance completed. aj1 23:10 Report given to BERNABE Del [facility]. [facility] 12/06 03:04 IV discontinued, intact, bleeding controlled, No redness/swelling at site. 04:22 CT Abd/Pelvis - W/Contrast In Process Unspecified. EDMS Administered Medications: 12/05 20:48 Drug: Tylenol 650 mg Route: PO; aj1 :57 Follow up: Response: No adverse reaction aj1 :49 Drug: Zofran 4 mg Route: IVP; Site: left upper arm; aj1 :57 Follow up: Response: No adverse reaction aj1 :49 Drug: Demerol 25 mg Route: IVP; Site: left upper arm; aj1 :57 Follow up: Response: No adverse reaction; Pain is decreased aj : Drug: morphine 4 mg Route: IVP; Site: left upper arm; 1 12/06 00:17 Follow up: Response: No adverse reaction; Pain is unchanged, physician notified 00:12 Drug: Phenergan 12.5 mg Route: IVP; Site: left antecubital; 03:05 Follow up: Response: No adverse reaction 00:12 Drug: NS 0.9% 500 ml Route: IV; Rate: bolus; Site: left antecubital; 03:05 Follow up: Response: No adverse reaction; IV Status: Completed infusion Outcome: 02:50 Discharge ordered by . rn 03:04 Discharged to home ambulatory, with family. 03:04 Condition: improved 03:04 Discharge instructions given to patient, Instructed on discharge instructions, follow up and referral plans. POC Abd Pain Demonstrated understanding of instructions, follow-up care, POC 03:05 Patient left the ED. Signatures: Dispatcher [employer] EDMS Rosario Blackwell RN RN aj1 Karyn Malloy RN RN Krzysztof Em MD MD rn Riggs, Erika, RN RN ed1 Habalo, Winsy Virginia Cee
--- NOTE | 2018-12-06 02:50 | EDPHYS ---
Physician Documentation [facility] Name: Jazmín Perez Age: 48 yrs Sex: Female : 1970 Arrival Date: 12/05/2018 Time: 19:25 Bed 19 Private MD: ED Physician Krzysztof Em HPI: 12/05 21:14 This 48 yrs old Female presents to ER via Wheelchair with complaints of rn Abdominal Pain. 21:14 The patient presents with abdominal pain in the left lower quadrant. Onset: The rn symptoms/episode began/occurred 1 hour(s) ago. The symptoms do not radiate. Associated signs and symptoms: Pertinent negatives: nausea and vomiting, anorexia, blood in stools, constipation, diarrhea, fever, hematuria. The symptoms are described as crampy. Modifying factors: The symptoms are alleviated by nothing, the symptoms are aggravated by touching the area. Severity of pain: At its worst the pain was moderate in the emergency department the pain is unchanged. The patient has not experienced similar symptoms in the past. The patient has not recently seen a physician. 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 - Social history:: Smoking status: Patient/guardian denies using tobacco. - Ebola Screening: : Patient negative for fever greater than or equal to 101.5 degrees Fahrenheit, and additional compatible Ebola Virus Disease symptoms Patient denies exposure to infectious person Patient denies travel to an Ebola-affected area in the 21 days before illness onset. - Family history:: not pertinent. - Hospitalizations: : No recent hospitalization is reported. ROS: 21:14 Constitutional: Negative for fever, chills, and weight loss, Eyes: Negative for injury, rn pain, redness, and discharge, Neck: Negative for injury, pain, and swelling, Cardiovascular: Negative for chest pain, palpitations, and edema, Respiratory: Negative for shortness of breath, cough, wheezing, and pleuritic chest pain, Abdomen/GI: Negative for nausea, vomiting, diarrhea, and constipation, MS/Extremity: Negative for injury and deformity, Skin: Negative for injury, rash, and discoloration, Neuro: Negative for headache, weakness, numbness, tingling, and seizure. Exam: 21:14 Constitutional: This is a well developed, well nourished patient who is awake, alert, rn and in no acute distress. Head/Face: Normocephalic, atraumatic. Eyes: Pupils equal round and reactive to light, extra-ocular motions intact. Lids and lashes normal. Conjunctiva and sclera are non-icteric and not injected. Cornea within normal limits. Periorbital areas with no swelling, redness, or edema. ENT: MMM Abdomen/GI: soft, + mild tenderness LLQ, no masses Skin: Warm, dry MS/ Extremity: Pulses equal, no cyanosis Neuro: Awake and alert, GCS 15, oriented to person, place, time, and situation. Cranial nerves II-XII grossly intact. Motor strength 5/5 in all extremities. Sensory grossly intact. Cerebellar exam normal. Normal gait. Vital Signs: 19:33 BP 119 / 73; Pulse 106; Resp 20; Temp 99.1; Pulse Ox 99% on R/A; Height 5 ft. 2 in. ed1 (157.48 cm); Pain 9/10; 20:30 BP 113 / 76; Pulse 92; Resp 18; Pulse Ox 97% on R/A; aj1 21:30 BP 118 / 78; Pulse 84; Resp 16; Pulse Ox 97% on R/A; aj1 22:35 BP 110 / 75; Pulse 74; Resp 18; Pulse Ox 99% on R/A; wh 23:38 BP 146 / 100; Pulse 74; Resp 18; Pulse Ox 99% on R/A; wh 12/06 00:15 BP 126 / 70; Pulse 76; Resp 18; Pulse Ox 94% on R/A; wh 01:14 BP 98 / 82; Pulse 87; Resp 18; Pulse Ox 95% on R/A; wh 02:51 BP 114 / 80; Pulse 77; Resp 18; Pulse Ox 96% on R/A; wh 12/05 19:33 Pt unable to provide weight ed1 MDM: 20:03 Patient medically screened. rn 12/06 02:38 Differential diagnosis: appendicitis, diverticulitis, gastritis, non-specific abd pain, rn pancreatitis, Ureterolithiasis. 02:49 Data reviewed: vital signs, nurses notes, lab test result(s), radiologic studies, CT rn scan, and as a result, I will discharge patient. Counseling: I had a detailed discussion with the patient and/or guardian regarding: the historical points, exam findings, and any diagnostic results supporting the discharge/admit diagnosis, lab results, radiology results, the need for outpatient follow up, to return to the emergency department if symptoms worsen or persist or if there are any questions or concerns that arise at home. Special discussion: Based on the patient's Hx, exam, and Dx evaluation, there is no indication for emergent surgery or inpatient Tx. It is understood by the patient/guardian that if the Sx's persist or worsen they need to return immediately for re-evaluation. I discussed with the patient/guardian in detail that at this point there is no indication for admission to the hospital. It is understood, however, that if the symptoms persist or worsen the patient needs to return immediately for re-evaluation. 12/05 20:10 Order name: Basic Metabolic Panel; Complete Time: 21:03 rn 12/05 20:10 Order name: CBC with Diff; Complete Time: 21:03 rn 12/05 20:10 Order name: Hepatic Function; Complete Time: 21: rn 12/05 20:10 Order name: Lipase; Complete Time: 21:03 rn 12/05 20:10 Order name: CT Abd/Pelvis - W/Contrast rn 12/06 02:59 Order name: Urine Dipstick--Ancillary (enter results) ed1 12/05 20:10 Order name: IV Saline Lock; Complete Time: 20:23 rn 12/05 20:10 Order name: Labs collected and sent; Complete Time: 20:23 rn 12/06 02:38 Order name: Urine Dipstick-Ancillary (obtain specimen); Complete Time: 02:45 rn Administered Medications: 12/05 20:48 Drug: Tylenol 650 mg Route: PO; aj1 21:57 Follow up: Response: No adverse reaction aj1 20:49 Drug: Zofran 4 mg Route: IVP; Site: left upper arm; aj1 21:57 Follow up: Response: No adverse reaction aj1 20:49 Drug: Demerol 25 mg Route: IVP; Site: left upper arm; aj1 21:57 Follow up: Response: No adverse reaction; Pain is decreased [facility][1] :57 Drug: morphine 4 mg Route: IVP; Site: left upper arm; aj1 12/06 00:17 Follow up: Response: No adverse reaction; Pain is unchanged, physician notified 00:12 Drug: Phenergan 12.5 mg Route: IVP; Site: left antecubital; 03:05 Follow up: Response: No adverse reaction 00:12 Drug: NS 0.9% 500 ml Route: IV; Rate: bolus; Site: left antecubital; 03:05 Follow up: Response: No adverse reaction; IV Status: Completed infusion Disposition: 12/06/18 02:50 Discharged to Home. Impression: Unspecified abdominal pain. - Condition is Stable. - Discharge Instructions: Abdominal Pain, Adult. - Medication Reconciliation Form, Thank You Letter, Antibiotic Education, Prescription Opioid Use form. - Follow up: Private Physician; When: As needed; Reason: Recheck today's complaints, Re-evaluation by your physician. - Problem is new. - Symptoms have improved. Signatures: Dispatcher [employer] EDMS Rosario Blackwell RN RN aj1 Karyn Malloy RN RN Krzysztof Em MD MD rn Riggs, Erika RN RN ed1 Eligio Howell Corrections: (The following items were deleted from the chart) 03:05 02:50 12/06/2018 02:50 Discharged to Home. Impression: Unspecified abdominal pain. Condition is Stable. Forms are Medication Reconciliation Form, Thank You Letter, Antibiotic Education, Prescription Opioid Use. Follow up: Private Physician; When: As needed; Reason: Recheck today's complaints, Re-evaluation by your physician. Problem is new. Symptoms have improved. rn
[2018-12-06 03:19] VITALS: TEMP 99.1
[2018-12-06 03:28] VITALS: BP 114/80; O2SAT 96
[2018-12-06 04:11] LABS: Urine Blood TRACE (NEG); Urine Glucose NEGATIVE (NEG); Urine Protein NEGATIVE (NEG); Urine Specific Gravity 1.025 (1.005-1.030); Urine pH 5.5 (5.0-7.0)
--- NOTE | 2018-12-08 11:06 | RAD REPORT ---
EXAM DESCRIPTION: CT - Abdomen Pelvis W Contrast - 12/06/2018 4:21 am CLINICAL HISTORY: Abdominal pain. Left lower quadrant pain COMPARISON: February 2018 TECHNIQUE: Computed axial tomography of the abdomen and pelvis was obtained. 100 cc Isovue-300 is ad ministered intravenously. Oral contrast was given. All CT scans are performed using dose optimization technique as appropriate and may include automated exposure control or mA/KV adjustment according to patient size. FINDINGS: Small nonobstructing right renal calculus The liver, spleen, pancreas, adrenals and kidneys appear un remarkable. The appendix is normal caliber. There is no evidence of diverticulitis Small umbilical hernia contains fat Cholecystectomy IMPRESSION: No acute abnormality displayed Exam was discussed with Dr. Em in the Emergency Room
== END 2018-12-06 03:05 | disposition home or self-care (01) ==
LOC: ER 19:24
DX: R10.32 Left lower quadrant pain (principal); E11.9 Type 2 diabetes mellitus without complications; Z79.84 Long term (current) use of oral hypoglycemic drugs
CPT/HCPCS: 36415; 74177; 80048; 80076; 81003; 83690; 85025; 99283; J2175; J2405; Q9967

== ENCOUNTER 2019-02-18 15:29 | Emergency (ER) | payer SELFPAY ==
[2019-02-18] MEDS ORDERED: ACETAMINOPHEN 325 MG TABLET ONE (16:30)
[2019-02-18] MEDS ORDERED: KETOROLAC 30 MG/ML INJ ONE (16:47)
[2019-02-18 16:52] LABS: Urine Blood TRACE (NEG); Urine Glucose NEGATIVE (NEG); Urine Protein NEGATIVE (NEG); Urine pH 5.5 (5.0-7.0)
[2019-02-18] MEDS ORDERED: ONDANSETRON 4 MG (ODT) TAB ONE (16:53)
--- NOTE | 2019-02-18 17:17 | RAD REPORT ---
EXAM DESCRIPTION: CT - Head C Spine Mpr Wo Con - 02/18/2019 5:01 pm CLINICAL HISTORY: Head and neck injury status post fall. Head and neck pain COMPARISON: None. TECHNIQUE: Computed axial tomography of the head and cervical spine was obtained. Sagittal and coronal reconstruction was performed. All CT scans are performed using dose optimization technique as appropriate and may include automated exposure control or mA/KV adjustment according to patient size. FINDINGS: An intracranial bleed is not seen. The ventricles are normal in caliber. An extra-axial fl uid collection is not noted.Fluid within the visualized sinuses and mastoids is not seen A cervical fracture is not visualized. No dislocation is noted. Loss of the normal lordosis may be se condary to muscle spasm. Spondylosis involves the cervical spine IMPRESSION: No acute intracranial abnormality is seen. A cervical fracture is not visualized. If the patient continues to have symptoms to suggest intracra nial /spinal cord pathology then MRI would be recommended
--- NOTE | 2019-02-18 17:47 | RAD REPORT ---
EXAM DESCRIPTION: RAD - Elbow Left 3 View - 02/18/2019 5:37 pm CLINICAL HISTORY: Left elbow pain status post trauma FINDINGS: No fracture or dislocation is seen.If patient continues have symptoms to suggest an occult fracture follow-up plain film series in 1 week would be recommended
--- NOTE | 2019-02-18 17:48 | RAD REPORT ---
EXAM DESCRIPTION: RAD - Forearm Left - 02/18/2019 5:39 pm CLINICAL HISTORY: Left forearm pain status post injury FINDINGS: No fracture is seen
--- NOTE | 2019-02-18 17:50 | RAD REPORT ---
EXAM DESCRIPTION: RAD - Knee Left 3 View - 02/18/2019 5:36 pm CLINICAL HISTORY: Left knee pain status post injury FINDINGS: No fracture or dislocation is seen.
--- NOTE | 2019-02-18 17:51 | RAD REPORT ---
EXAM DESCRIPTION: [place] Left02/18/2019 5:36 pm CLINICAL HISTORY: Left leg pain status post injury FINDINGS: No fracture is seen
--- NOTE | 2019-02-18 18:05 | RAD REPORT ---
EXAM DESCRIPTION: RAD - Pelvis - 02/18/2019 5:36 pm CLINICAL HISTORY: Pelvic pain status post injury FINDINGS: No fracture or dislocation is seen. If the patient continues to have symptoms to suggest an occult fracture then MRI would be recommended
--- NOTE | 2019-02-18 18:17 | ER ---
Nurse's Notes [facility] Name: Jazmín Perez Age: 48 yrs Sex: Female : 1970 Arrival Date: 02/18/2019 Time: 15:31 Bed 17 Private MD: Diagnosis: Other specified sprain of left wrist;Internal derangement of knee Presentation: 02/18 15:32 Presenting complaint: EMS states: Pt was walking into [facility] and tripped over rug, fell ph onto L side, denies LOC and does not take blood thinners, c/o pain to L knee and L wrist. Care prior to arrival: None. Mechanism of Injury: Fall from standing position. Trauma event details: Injury occurred in the [facility], Injury occurred: in a public building. Injury occurred: February 18, 2019. 15:32 Acuity: LOU 4 ph 15:32 Method Of Arrival: EMS: [facility] 15:39 Transition of care: patient was not received from another setting of care. Onset of ph symptoms was February 18, 2019. Risk Assessment: Do you want to hurt yourself or someone else? Patient reports no desire to harm self or others. Initial Sepsis Screen: Does the patient meet any 2 criteria? No. Patient's initial sepsis screen is negative. Does the patient have a suspected source of infection? No. Patient's initial sepsis screen is negative. Trauma Activation: Not Applicable Physician: ED Physician; Name: ; Notified At: ; Arrived At: Physician: General Surgeon; Name: ; Notified At: ; Arrived At: Physician: Radiology; Name: ; Notified At: ; Arrived At: Physician: Respiratory; Name: ; Notified At: ; Arrived At: Physician: Lab; Name: ; Notified At: ; Arrived At: Historical: - Allergies: 15:34 Codeine (Upset stomach); ph - Home Meds: 15:34 Claritin 10 mg Oral tab 1 tab once daily [Active]; metformin 1,000 mg Oral tab 1 tab 2 ph times per day [Active]; - PMHx: 15:34 allergies; Diabetes - NIDDM; ph - PSHx: 15:34 None; ph - Immunization history: Last tetanus immunization: unknown. - Social history:: Smoking status: Patient/guardian denies using tobacco. - Ebola Screening: : No symptoms or risks identified at this time. Screenin:39 Abuse screen: Denies threats or abuse. Denies injuries from another. Nutritional ph screening: No deficits noted. Tuberculosis screening: No symptoms or risk factors identified. Fall Risk Fall in past 12 months (25 points). No secondary diagnosis (0 pts). No IV (0 pts). Ambulatory Aid- None/Bed Rest/Nurse Assist (0 pts). Gait- Impaired (20 pts.). Mental Status- Oriented to own ability (0 pts). Total Meyers Fall Scale indicates Low Risk Score (25-44 pts). Fall prevention measures have been instituted. Side Rails Up X 2 Family Present and informed to notify staff if they need to leave bedside As available Patient and Family Educated on Fall Prevention Program and strategies. Primary Survey: 15:35 NO uncontrolled hemorrhage observed. A: The patient is alert. Airway: patent, No ph supplemental oxygen in use on arrival. Oral cavity: clear, Trachea midline. Breathing/Chest: Respiratory pattern: regular, Respiratory effort: spontaneous, unlabored, Chest inspection: symmetrical rise and fall of the chest. Circulation: Pulses: palpable right dorsalis pedis artery and left dorsalis pedis artery. Skin color: pink, Skin temperature: warm, dry. Disability Alert. Exposure/Environment: There is no evidence of uncontrolled external bleeding. Obvious injury(ies) are noted at this time: small abrasion to L knee, L knee swelling and pain]. 18:30 Reassessment Airway Airway Patent Breathing/Chest Respiratory pattern Regular ph Respiratory effort Spontaneous Unlabored Circulation Color [place] Temperature Warm Dry Disability Alert. Assessment: 15:37 General: Appears in no apparent distress. uncomfortable, obese, well groomed, Behavior ph is calm, cooperative, appropriate for age. Pain: Complains of pain in left knee and left wrist. Neuro: Level of Consciousness is awake, alert, obeys commands, Oriented to person, place, time, situation, Reports headache in left parietal area, Denies weakness blurred vision dizziness. Cardiovascular: Capillary refill < 3 seconds in bilateral fingers Patient's skin is warm and dry. Respiratory: Airway is patent Respiratory effort is even, unlabored, Respiratory pattern is regular, symmetrical. Derm: Skin is healthy with good turgor, Skin is pink, warm \T\ dry. Musculoskeletal: Circulation, motion, and sensation intact. Range of motion: limited in left knee Swelling present in left knee. Injury Description: Abrasion sustained to left knee. 16:45 Reassessment: Patient appears in no apparent distress at this time. Patient and/or ph family updated on plan of care and expected duration. Pain level reassessed. Patient is alert, oriented x 3, equal unlabored respirations, skin warm/dry/pink. pt assisted to restroom via wheelchair to obtain urine sample and change into gown, upon returning to room began to c/o nausea, dry heaving noted w/ no vomitus, ERP notified of nausea, PO Zofran and head CT ordered. 17:55 Reassessment: Patient appears in no apparent distress at this time. Patient and/or ph family updated on plan of care and expected duration. Pain level reassessed. Patient is alert, oriented x 3, equal unlabored respirations, skin warm/dry/pink. Pt resturned from radiology, continues to c/o pain to L knee. 18:50 Reassessment: Patient appears in no apparent distress at this time. Patient and/or ph family updated on plan of care and expected duration. Pain level reassessed. Patient is alert, oriented x 3, equal unlabored respirations, skin warm/dry/pink. Alvaro wrap placed to R knee and R wrist, d/c home w/ daughter. Vital Signs: 15:34 BP 150 / 77; Pulse 54; Resp 18; Temp 97.9; Pulse Ox 100% on R/A; Weight 127.01 kg; ph Height 5 ft. 1 in. (154.94 cm); 16:30 BP 135 / 78; Pulse 58; Resp 18; Pulse Ox 99% on R/A; ph 18:00 BP 142 / 76; Pulse 61; Resp 16; Temp 97.5; Pulse Ox 99% on R/A; ph 15:34 Body Mass Index 52.90 (127.01 kg, 154.94 cm) ph [place] Coma Score: 15:34 Eye Response: spontaneous(4). Verbal Response: oriented(5). Motor Response: obeys ph commands(6). Total: 15. 16:30 Eye Response: spontaneous(4). Verbal Response: oriented(5). Motor Response: obeys ph commands(6). Total: 15. 18:00 Eye Response: spontaneous(4). Verbal Response: oriented(5). Motor Response: obeys ph commands(6). Total: 15. Trauma Score (Adult): 15:34 Eye Response: spontaneous(1); Verbal Response: oriented(1); Motor Response: obeys ph commands(2); Systolic BP: > 89 mm Hg(4); Respiratory Rate: 10 to 29 per min(4); Carlos Score: 15; Trauma Score: 12 16:30 Eye Response: spontaneous(1); Verbal Response: oriented(1); Motor Response: obeys ph commands(2); Systolic BP: > 89 mm Hg(4); Respiratory Rate: 10 to 29 per min(4); [place]ken[place] Score: 15; Trauma Score: 12 18:00 Eye Response: spontaneous(1); Verbal Response: oriented(1); Motor Response: obeys ph commands(2); Systolic BP: > 89 mm Hg(4); Respiratory Rate: 10 to 29 per min(4); [place] Score: 15; Trauma Score: 12 ED Course: 15:31 Patient arrived in ED. ph 15:33 Triage completed. ph 15:37 Mahendra Mckenzie PA is PHCP. [facility] 15:37 Robert Olsen MD is Attending Physician. jmm 15:39 Arm band placed on. ph 15:40 Patient has correct armband on for positive identification. Bed in low position. Call ph light in reach. Side rails up X 1. Pulse ox on. NIBP on. Door closed. Noise minimized. Warm blanket given. Ice pack to injury. 15:40 Patient maintains SpO2 saturation greater than 95% on room air. Thermoregulation: warm ph blanket given to patient. 16:03 Autumn Sky, RN is Primary Nurse. ph 16:22 Radiology exam delayed due to PAIN MEDS. sw 17:01 CT Head C Spine In Process Unspecified. EDMS 17:37 Elbow Left 3 View XRAY In Process Unspecified. EDMS 17:37 Forearm Left XRAY In Process Unspecified. EDMS 17:37 Pelvis XRAY In Process Unspecified. EDMS 17:37 Knee Left 3 View XRAY In Process Unspecified. EDMS 17:37 Tib Fib Left XRAY In Process Unspecified. EDMS 17:50 No provider procedures requiring assistance completed. Patient did not have IV access ph during this emergency room visit. Administered Medications: 16:15 Drug: Tylenol 650 mg Route: PO; ph 18:19 Follow up: Response: No adverse reaction ph 16:50 Drug: Zofran 4 mg Route: PO; ph 18:20 Follow up: Response: No adverse reaction ph 16:51 Drug: Ketorolac 30 mg Route: IM; Site: left vastus lateralis; ph 18:19 Follow up: Response: No adverse reaction ph Intake: 15:34 PO: 0ml; Total: 0ml. ph 16:30 PO: 0ml; Total: 0ml. ph Output: 15:34 Urine: 0ml; Total: 0ml. ph 16:30 Urine: 0ml; Total: 0ml. ph Outcome: 18:16 Discharge ordered by . bienvenido 18:54 Patient left the ED. ph 18:54 Discharged to home via wheelchair, with family. ph 18:54 Condition: good 18:54 Patient's length of stay was not longer than 2 hours. 18:54 Discharge instructions given to patient, Instructed on discharge instructions, follow ph up and referral plans. medication usage, Demonstrated understanding of instructions, follow-up care, medications, Prescriptions given X 1. Signatures: Dispatcher [employer] EDMS Mahendra Mckenzie PA PA jmm Hall, Patricia, RN RN Mary Ch
--- NOTE | 2019-02-18 18:17 | EDPHYS ---
Physician Documentation [facility] Name: Jazmín Perez Age: 48 yrs Sex: Female : 1970 Arrival Date: 02/18/2019 Time: 15:31 Bed 17 Private MD: ED Physician Robert Olsen HPI: 02/18 15:55 This 48 yrs old Female presents to ER via EMS with complaints of Fall Injury. jmm 15:55 Details of fall: The patient fell from an upright position, while walking. Onset: The jmm symptoms/episode began/occurred acutely, just prior to arrival. Associated injuries: The patient sustained left arm, left knee, right hip. This is a 48 year old female with a history of dm that presents to the ED with complaints of headache, left arm pain, left knee, pain, and right hip pain after a fall which occurred just prior to arrival. Patient states she tripped on a rug landing on her left side. Patient denies Loc but states she is nauseous. . Historical: - Allergies: 15:34 Codeine (Upset stomach); ph - Home Meds: 15:34 Claritin 10 mg Oral tab 1 tab once daily [Active]; metformin 1,000 mg Oral tab 1 tab 2 ph times per day [Active]; - PMHx: 15:34 allergies; Diabetes - NIDDM; ph - PSHx: 15:34 None; ph - Immunization history: Last tetanus immunization: unknown. - Social history:: Smoking status: Patient/guardian denies using tobacco. - Ebola Screening: : No symptoms or risks identified at this time. ROS: 15:55 Constitutional: Negative for fever, chills, and weight loss, Cardiovascular: Negative jmm for chest pain, palpitations, and edema, Respiratory: Negative for shortness of breath, cough, wheezing, and pleuritic chest pain. 15:55 MS/extremity: Positive for injury or acute deformity, pain. 15:55 Neuro: Positive for headache. 15:55 All other systems are negative. Exam: 15:55 Head/Face: atraumatic. Eyes: EOMI, no conjunctival erythema appreciated ENT: Moist jmm Mucus Membranes Neck: Trachea midline, Supple Chest/axilla: Normal chest wall appearance and motion. Cardiovascular: Regular rate and rhythm. No edema appreciated Respiratory: Normal respirations, no respiratory distress appreciated Abdomen/GI: Non distended, soft Back: Normal ROM 15:55 Constitutional: The patient appears alert, awake, anxious, uncomfortable. 15:55 Musculoskeletal/extremity: pain is elicited on palpation of the left forearm, no snuffbox tenderness noted to the left wrist, painful rom noted, < 2 sec distal cap refill, NVI. Left anterior knee ttp, left tibia ttp diffusely, no obvious deformity appreciated, from appreciated, right hip TTP, no obvious deformity appreciated. . 15:55 Skin: abrasion noted to the left knee. 15:55 Neuro: Orientation: is normal, Mentation: is normal, Memory: is normal. 15:55 Psych: Behavior/mood is pleasant, cooperative. Vital Signs: 15:34 BP 150 / 77; Pulse 54; Resp 18; Temp 97.9; Pulse Ox 100% on R/A; Weight 127.01 kg; ph Height 5 ft. 1 in. (154.94 cm); 16:30 BP 135 / 78; Pulse 58; Resp 18; Pulse Ox 99% on R/A; ph 18:00 BP 142 / 76; Pulse 61; Resp 16; Temp 97.5; Pulse Ox 99% on R/A; ph 15:34 Body Mass Index 52.90 (127.01 kg, 154.94 cm) ph Carlos Coma Score: 15:34 Eye Response: spontaneous(4). Verbal Response: oriented(5). Motor Response: obeys ph commands(6). Total: 15. 16:30 Eye Response: spontaneous(4). Verbal Response: oriented(5). Motor Response: obeys ph commands(6). Total: 15. 18:00 Eye Response: spontaneous(4). Verbal Response: oriented(5). Motor Response: obeys ph commands(6). Total: 15. Trauma Score (Adult): 15:34 Eye Response: spontaneous(1); Verbal Response: oriented(1); Motor Response: obeys ph commands(2); Systolic BP: > 89 mm Hg(4); Respiratory Rate: 10 to 29 per min(4); Carlos Score: 15; Trauma Score: 12 16:30 Eye Response: spontaneous(1); Verbal Response: oriented(1); Motor Response: obeys ph commands(2); Systolic BP: > 89 mm Hg(4); Respiratory Rate: 10 to 29 per min(4); Carlos Score: 15; Trauma Score: 12 18:00 Eye Response: spontaneous(1); Verbal Response: oriented(1); Motor Response: obeys ph commands(2); Systolic BP: > 89 mm Hg(4); Respiratory Rate: 10 to 29 per min(4); Stebbins Score: 15; Trauma Score: 12 MDM: 15:52 Patient medically screened. [facility] 18:14 Data reviewed: vital signs, nurses notes. Counseling: I had a detailed discussion with bienvenido the patient and/or guardian regarding: the historical points, exam findings, and any diagnostic results supporting the discharge/admit diagnosis, radiology results, the need for outpatient follow up, to return to the emergency department if symptoms worsen or persist or if there are any questions or concerns that arise at home. Response to treatment: the patient's symptoms have mildly improved after treatment. 02/18 16:44 Order name: Urine Dipstick--Ancillary (enter results) 02/18 16:44 Order name: Urine --Ancillary (enter results); Complete Time: 18:10 02/18 15:58 Order name: Elbow Left 3 View XRAY; Complete Time: 18:10 [facility] 02/18 15:58 Order name: Forearm Left XRAY; Complete Time: 18:10 [facility] 02/18 15:58 Order name: Pelvis XRAY; Complete Time: 18:10 [facility] 02/18 16:45 Order name: Urine Dipstick-Ancillary; Complete Time: 18:10 [facility] 02/18 15:58 Order name: Knee Left 3 View XRAY; Complete Time: 18:10 [facility] 02/18 15:58 Order name: Tib Fib Left XRAY; Complete Time: 18:10 [facility] 02/18 16:19 Order name: Urine Dipstick-Ancillary (obtain specimen); Complete Time: 17:10 [facility] 02/18 16:46 Order name: CT Head C Spine; Complete Time: 18:10 [facility] 02/18 18:16 Order name: Alvaro wrap-joint; Complete Time: 18:54 [facility] Administered Medications: 16:15 Drug: Tylenol 650 mg Route: PO; ph 18:19 Follow up: Response: No adverse reaction ph 16:50 Drug: Zofran 4 mg Route: PO; ph 18:20 Follow up: Response: No adverse reaction ph 16:51 Drug: Ketorolac 30 mg Route: IM; Site: left vastus lateralis; ph 18:19 Follow up: Response: No adverse reaction ph Disposition: 02/18/19 18:16 Discharged to Home. Impression: Other specified sprain of left wrist, Internal derangement of knee. - Condition is Stable. - Discharge Instructions: Knee Pain, Wrist Sprain. - Prescriptions for Ibuprofen 800 mg Oral Tablet - take 1 tablet by ORAL route every 8 hours As needed take with food; 30 tablet. Cyclobenzaprine 10 mg Oral Tablet - take 1 tablet by ORAL route every 8 hours As needed; 30 tablet. - Medication Reconciliation Form, Thank You Letter, Antibiotic Education, Prescription Opioid Use, Work release form form. - Follow up: Private Physician; When: 2 - 3 days; Reason: Recheck today's complaints, Continuance of care, Re-evaluation by your physician. Addendum: 02/20/2019 07:54 Co-signature as Attending Physician, Robert Olsen MD. g s Signatures: Dispatcher [employer] EDMS Mahendra Mckenzie PA PA jmm Hall, Patricia, RN RN Pretty, MD CHINTAN Jones Corrections: (The following items were deleted from the chart) 02/18 18:54 18:16 02/18/2019 18:16 Discharged to Home. Impression: Other specified sprain of left ph wrist; Internal derangement of knee. Condition is Stable. Forms are Medication Reconciliation Form, Thank You Letter, Antibiotic Education, Prescription Opioid Use. Follow up: Private Physician; When: 2 - 3 days; Reason: Recheck today's complaints, Continuance of care, Re-evaluation by your physician. bienvenido
[2019-02-18 19:09] VITALS: BP 150/77; TEMP 97.9; O2SAT 100
== END 2019-02-18 18:54 | disposition home or self-care (01) ==
LOC: ER 15:29
DX: S63.502A Unspecified sprain of left wrist, initial encounter (principal); M23.92 Unspecified internal derangement of left knee; W01.0XXA Fall on same level from slipping, tripping and stumbling without subsequent striking against object, initial encounter; Y93.01 Activity, walking, marching and hiking; M25.551 Pain in right hip; E11.9 Type 2 diabetes mellitus without complications; Z79.84 Long term (current) use of oral hypoglycemic drugs; Z88.5 Allergy status to narcotic agent
CPT/HCPCS: 70450; 72125; 72170; 81003; 81025; 96372; 99284

== ENCOUNTER 2019-08-14 22:10 | Emergency (ER) | payer OTHER ==
[2019-08-14] MEDS ORDERED: ONDANSETRON 4 MG/2 ML VIAL ONE (22:48)
[2019-08-14] MEDS ORDERED: KETOROLAC 30 MG/ML INJ ONE (22:48)
[2019-08-14] MEDS ORDERED: NA CHLORIDE 0.9% 1,000 ML ONE (22:48)
[2019-08-14] MEDS ORDERED: MORPHINE 4 MG/ML SYR ONE (22:49)
[2019-08-14 22:52] LABS: Absolute Lymphocytes (CBC) 2.5 K/uL (0.7-4.9); Basophils % 0.7 % (0-1.3); Hematocrit 33.2 % (36.0-45.0); Lymphocytes % 30.4 % (15.3-44.8); Protime INR 0.97
[2019-08-14 23:03] LABS: Urine Blood 1+ (NEG); Urine Glucose NEGATIVE (NEG); Urine Protein NEGATIVE (NEG); Urine Specific Gravity >1.030 (1.005-1.030); Urine pH 6.5 (5.0-7.0)
[2019-08-14 23:08] LABS: ALT/SGPT 19 U/L (12-78); AST/SGOT 10 U/L (15-37); Albumin 3.3 g/dL (3.4-5.0); Alkaline Phosphatase 126 U/L (45-117); BUN Blood Urea Nitrogen 17 mg/dL (7-18); Bicarbonate 28 mmol/L (21-32); Bilirubin Direct < 0.1 mg/dL (0-0.2); Bilirubin Total 0.2 mg/dL (0.2-1.0); Glucose Level 97 mg/dL (74-106); Lipase 265 U/L (73-393); Magnesium 1.7 mg/dL (1.8-2.4); NT PRO-BNP 19 pg/mL (<125); Potassium 3.9 mmol/L (3.5-5.1); Protein, Total 7.5 g/dL (6.4-8.2); Sodium Level 145 mmol/L (136-145); Troponin (Emerg Dept Use Only) < 0.02 ng/mL (0.0-0.045)
--- NOTE | 2019-08-14 23:10 | RAD REPORT ---
EXAM DESCRIPTION: RAD - Chest Single View - 08/14/2019 11:04 pm CLINICAL HISTORY: ABDOMINAL DISTENTION Chest pain. COMPARISON: Chest Single View dated 12/10/2017 FINDINGS: Portable technique limits examination quality. The lungs are grossly clear. The heart is normal in size. No displaced fractures. IMPRESSION: No acute intrathoracic process suspected.
[2019-08-15] MEDS ORDERED: MAGNESIUM SULFATE 1 gm IVPB 1 GM/100 ML BAG IV ONE (00:36)
[2019-08-15] MEDS ORDERED: CEFTRIAXONE/SWI 1gm 1 GM/10 ML SYR ONE (00:36)
[2019-08-15] MEDS ORDERED: MORPHINE 4 MG/ML SYR ONE (00:37)
--- NOTE | 2019-08-15 00:54 | ER ---
Nurse's Notes [facility] Name: Jazmín Perez Age: 49 yrs Sex: Female : 1970 Arrival Date: 08/14/2019 Time: 22:13 Bed 6 Private MD: Diagnosis: Abdominal tenderness;Type 2 diabetes mellitus;Obesity, unspecified;Hypomagnesemia Presentation: 08/14 22:16 Presenting complaint: Patient states: I have been having lower back pain for the past 2 jb4 days. Tonight it got worse at around 9pm so I drove here. My entire lower back hurts and it radiates to my left lower stomach. 22:16 Transition of care: patient was not received from another setting of care. Onset of jb4 symptoms was August 12, 2019. Risk Assessment: Do you want to hurt yourself or someone else? Patient reports no desire to harm self or others. Initial Sepsis Screen: Does the patient meet any 2 criteria? No. Patient's initial sepsis screen is negative. Does the patient have a suspected source of infection? Yes: Acute abdominal pain. Care prior to arrival: None. 22:16 Method Of Arrival: Wheelchair jb4 22:16 Acuity: LOU 3 jb4 Historical: - Allergies: 22:16 Codeine (Upset stomach); jb4 - Home Meds: 22:16 None [Active]; jb4 - PMHx: 22:16 Diabetes - NIDDM; allergies; jb4 - PSHx: 22:16 Tubal ligation; jb4 - Immunization history:: Adult Immunizations up to date. - Social history:: Smoking status: Patient/guardian denies using tobacco, Patient/guardian denies using alcohol, street drugs. - Ebola Screening: : No symptoms or risks identified at this time. Screenin:16 Abuse screen: Denies threats or abuse. Nutritional screening: No deficits noted. jb4 Tuberculosis screening: No symptoms or risk factors identified. Fall Risk None identified. Assessment: 22:16 General: Appears in no apparent distress. uncomfortable, Behavior is calm, cooperative, jb4 appropriate for age. Pain: Complains of pain in low back area Pain radiates to left lower quadrant Pain currently is 8 out of 10 on a pain scale. Neuro: Level of Consciousness is awake, alert, obeys commands, Oriented to person, place, time, situation. Cardiovascular: Patient's skin is warm and dry. Respiratory: Airway is patent Respiratory effort is even, unlabored, Respiratory pattern is regular, symmetrical. GI: Abdomen is non-distended, obese. : No signs and/or symptoms were reported regarding the genitourinary system. EENT: No signs and/or symptoms were reported regarding the EENT system. Derm: Skin is intact, Skin is pink, warm \T\ dry. Musculoskeletal: Circulation, motion, and sensation intact. Range of motion: intact in all extremities. 23:15 Reassessment: Patient appears in no apparent distress at this time. Patient and/or jb4 family updated on plan of care and expected duration. Pain level reassessed. Patient is alert, oriented x 3, equal unlabored respirations, skin warm/dry/pink. Pt to CT. 08/15 00:30 Reassessment: Patient appears in no apparent distress at this time. Patient and/or jb4 family updated on plan of care and expected duration. Pain level reassessed. Patient is alert, oriented x 3, equal unlabored respirations, skin warm/dry/pink. 01:30 Reassessment: Patient appears in no apparent distress at this time. Patient and/or jb4 family updated on plan of care and expected duration. Pain level reassessed. Patient is alert, oriented x 3, equal unlabored respirations, skin warm/dry/pink. 01:52 Reassessment: Dr. Rausch at bedside to discuss results with patient, demonstrates 1 understanding. Vital Signs: 08/14 22:16 BP 142 / 82; Pulse 89; Resp 20; Temp 98.6(O); Pulse Ox 98% on R/A; Weight 104.33 kg [facility] (R); Height 5 ft. 1 in. (154.94 cm) (R); Pain 8/10; 23:00 BP 121 / 76; Pulse 86; Resp 16; Pulse Ox 98% on R/A; jb4 08/15 00:15 BP 106 / 63; Pulse 78; Resp 18; Pulse Ox 98% on R/A; jb4 01:45 BP 121 / 81; Pulse 75; Resp 18; Pulse Ox 98% on R/A; lp1 08/14 22:16 Body Mass Index 43.46 (104.33 kg, 154.94 cm) [facility] ED Course: 08/14 22:13 Patient arrived in ED. jg7 22:16 Thanh Conde, RN is Primary Nurse. jb4 22:16 Onel Rausch MD is Attending Physician. jae 22:16 Arm band placed on right wrist. jb4 22:16 Patient has correct armband on for positive identification. Placed in gown. Bed in low jb4 position. Call light in reach. Side rails up X 1. youth nutritional monitor on. Pulse ox on. NIBP on. 22:27 Triage completed. jb4 22:54 Radiology exam delayed due to pt states: I am not moving without pain meds- Nurse Maikel mw3 Notified. 23:04 XRAY Chest (1 view) In Process Unspecified. EDMS 08/15 00:15 CT Stone Protocol In Process Unspecified. EDMS 00:15 Missed attempt(s): 20 gauge Bleeding controlled, band aid applied, catheter tip intact. oe 00:18 Inserted saline lock: 22 gauge in right forearm, using aseptic technique. oe 01:54 No provider procedures requiring assistance completed. IV discontinued, No lp1 redness/swelling at site. Pressure dressing applied. Administered Medications: 08/14 23:05 Drug: Zofran 4 mg Route: IVP; Site: right antecubital; 4 23:30 Follow up: Response: No adverse reaction jb 23:08 Drug: TORadol 30 mg Route: IVP; Site: right antecubital; 4 08/15 00:00 Follow up: Response: No adverse reaction; Pain is unchanged, physician notified [facility] 08/14 23:09 Drug: morphine 4 mg {Note: Rass score 0.} Route: IVP; Site: right antecubital; 4 08/15 00:00 Follow up: Response: No adverse reaction; Pain is unchanged, physician notified [facility] 08/14 23:10 Drug: NS 0.9% 1000 ml Route: IV; Rate: 125 ml/hr; Site: right antecubital; [facility] 08/15 01:59 Follow up: Response: No adverse reaction; IV Status: Order to discontinue infusion jb4 00:44 Drug: morphine 4 mg {Note: Rass score 0.} Route: IVP; Site: right forearm; [facility] 01:00 Follow up: Response: Pain is decreased jb4 00:46 Drug: Rocephin 1 grams Route: IV; Rate: per protocol; Site: right forearm; jb4 00:48 Follow up: Response: No adverse reaction; IV Status: Completed infusion; IV Intake: [id number] 00:48 Drug: Magnesium Sulfate 1 grams Route: IVPB; Infused Over: 1 hrs; Site: right forearm; jb4 01:52 Follow up: IV Status: Completed infusion; IV Intake: 100ml lp1 Intake: 00:48 IV: 10ml; Total: 10ml. jb4 01:52 IV: 100ml; Total: 110ml. lp1 Outcome: 00:53 Discharge ordered by . jae 01:54 Discharged to home ambulatory, with family. lp1 01:54 Condition: good 01:54 Discharge instructions given to patient, Instructed on discharge instructions, follow up and referral plans. medication usage, Demonstrated understanding of instructions, follow-up care, medications, Prescriptions given X 3. 02:03 Patient left the ED. lp1 Signatures: Dispatcher [employer] EDMS Onel Rausch MD MD cha Pena, Laura, RN RN lp1 Thanh Conde, BERNABE RN jb4 [place] Michelle mw3 Cathryn Downing jg7 Corrections: (The following items were deleted from the chart) 00:20 00:18 Missed attempt(s): 20 gauge Bleeding controlled, band aid applied, catheter tip oe intact. oe
--- NOTE | 2019-08-15 00:55 | EDPHYS ---
Physician Documentation [facility] Name: Jazmín Perez Age: 49 yrs Sex: Female : 1970 Arrival Date: 08/14/2019 Time: 22:13 Bed 6 Private MD: BERNARD Physician Onel Rausch HPI: 08/14 23:45 This 49 yrs old Female presents to ER via Wheelchair with complaints of jae Abdominal Pain, Back Pain. 23:45 The patient presents with pain that is acute, with no known mechanism of injury. The jae symptoms are located in the low back, lumbar area, left low back and right low back. Onset: The symptoms/episode began/occurred 2 day(s) ago. The pain radiates to the left low back, left mid back, right mid back and right low back. Historical: - Allergies: 22:16 Codeine (Upset stomach); jb4 - Home Meds: 22:16 None [Active]; jb4 - PMHx: 22:16 Diabetes - NIDDM; allergies; jb4 - PSHx: 22:16 Tubal ligation; jb4 - Immunization history:: Adult Immunizations up to date. - Social history:: Smoking status: Patient/guardian denies using tobacco, Patient/guardian denies using alcohol, street drugs. - Ebola Screening: : No symptoms or risks identified at this time. ROS: 23:55 Constitutional: Negative for fever, chills, and weight loss, Eyes: Negative for injury, jae pain, redness, and discharge, ENT: Negative for injury, pain, and discharge, Neck: Negative for injury, pain, and swelling, Cardiovascular: Negative for chest pain, palpitations, and edema, Respiratory: Negative for shortness of breath, cough, wheezing, and pleuritic chest pain, : Negative for injury, bleeding, discharge, and swelling, MS/Extremity: Negative for injury and deformity, Skin: Negative for injury, rash, and discoloration, Neuro: Negative for headache, weakness, numbness, tingling, and seizure, Psych: Negative for depression, anxiety, suicide ideation, homicidal ideation, and hallucinations, Allergy/Immunology: Negative for hives, rash, and allergies, Endocrine: Negative for neck swelling, polydipsia, polyuria, polyphagia, and marked weight changes, Hematologic/Lymphatic: Negative for swollen nodes, abnormal bleeding, and unusual bruising. 23:55 Abdomen/GI: Positive for abdominal pain, of the posterior aspect of right lateral abdomen, posterior aspect of left lateral abdomen, right lower quadrant and left lower quadrant. 23:55 Back: Positive for pain at rest, flank pain, on the left. Exam: 23:55 Constitutional: This is a well developed, well nourished patient who is awake, alert, jae and in no acute distress. Head/Face: Normocephalic, atraumatic. Eyes: Pupils equal round and reactive to light, extra-ocular motions intact. Lids and lashes normal. Conjunctiva and sclera are non-icteric and not injected. Cornea within normal limits. Periorbital areas with no swelling, redness, or edema. ENT: Nares patent. No nasal discharge, no septal abnormalities noted. Tympanic membranes are normal and external auditory canals are clear. Oropharynx with no redness, swelling, or masses, exudates, or evidence of obstruction, uvula midline. Mucous membranes moist. Neck: Trachea midline, no thyromegaly or masses palpated, and no cervical lymphadenopathy. Supple, full range of motion without nuchal rigidity, or vertebral point tenderness. No Meningismus. Chest/axilla: Normal chest wall appearance and motion. Nontender with no deformity. No lesions are appreciated. Cardiovascular: Regular rate and rhythm with a normal S1 and S2. No gallops, murmurs, or rubs. Normal PMI, no JVD. No pulse deficits. Respiratory: Lungs have equal breath sounds bilaterally, clear to auscultation and percussion. No rales, rhonchi or wheezes noted. No increased work of breathing, no retractions or nasal flaring. Skin: Warm, dry with normal turgor. Normal color with no rashes, no lesions, and no evidence of cellulitis. MS/ Extremity: Pulses equal, no cyanosis. Neurovascular intact. Full, normal range of motion. Neuro: Awake and alert, GCS 15, oriented to person, place, time, and situation. Cranial nerves II-XII grossly intact. Motor strength 5/5 in all extremities. Sensory grossly intact. Cerebellar exam normal. Normal gait. Psych: Awake, alert, with orientation to person, place and time. Behavior, mood, and affect are within normal limits. 23:55 Abdomen/GI: Inspection: distension, Bowel sounds: normal, Palpation: moderate abdominal tenderness, in the posterior aspect of left lateral abdomen, anterior aspect of left lateral abdomen and left lower quadrant, Liver: no appreciated palpable abnormalities. Vital Signs: 22:16 BP 142 / 82; Pulse 89; Resp 20; Temp 98.6(O); Pulse Ox 98% on R/A; Weight 104.33 kg jb4 (R); Height 5 ft. 1 in. (154.94 cm) (R); Pain 8/10; 23:00 BP 121 / 76; Pulse 86; Resp 16; Pulse Ox 98% on R/A; jb4 08/15 00:15 BP 106 / 63; Pulse 78; Resp 18; Pulse Ox 98% on R/A; jb4 01:45 BP 121 / 81; Pulse 75; Resp 18; Pulse Ox 98% on R/A; lp1 08/14 22:16 Body Mass Index 43.46 (104.33 kg, 154.94 cm) 4 MDM: 08/14 22:16 Patient medically screened. [facility] 23:59 Data reviewed: vital signs, nurses notes, lab test result(s), radiologic studies, CT jae scan. 08/14 22:17 Order name: Basic Metabolic Panel [facility] 08/14 22:17 Order name: CBC with Diff [facility] 08/14 22:17 Order name: LFT's; Complete Time: 00:04 [facility] 08/14 22:17 Order name: Magnesium; Complete Time: 00:04 [facility] 08/14 22:17 Order name: NT PRO-BNP; Complete Time: 00:04 [facility] 08/14 22:17 Order name: PT-INR; Complete Time: 00:04 [facility] 08/14 22:17 Order name: Troponin (emerg Dept Use Only); Complete Time: 00:04 [facility] 08/14 22:17 Order name: XRAY Chest (1 view); Complete Time: 00:04 [facility] 08/14 22:17 Order name: Lipase; Complete Time: 00:04 [facility] 08/14 22:17 Order name: Urine Culture [facility] 08/14 22:18 Order name: Basic Metabolic Panel; Complete Time: 00:04 EDMS 08/14 22:18 Order name: CBC with Automated Diff; Complete Time: 00:04 EDTX 08/14 22:43 Order name: Urine Dipstick--Ancillary (enter results); Complete Time: 00:04 [facility] 08/14 22:43 Order name: Urine --Ancillary (enter results); Complete Time: 00:04 [facility] 08/14 22:17 Order name: EKG; Complete Time: 22:18 [facility] 08/14 22:17 Order name: Cardiac monitoring; Complete Time: 23:18 [facility] 08/14 22:17 Order name: EKG - Nurse/Tech; Complete Time: 23:18 [facility] 08/14 22:17 Order name: IV Saline Lock; Complete Time: 22:43 [facility] 08/14 22:17 Order name: Labs collected and sent; Complete Time: 22:43 [facility] 08/14 22:17 Order name: O2 Per Protocol; Complete Time: :43 [facility] 08/14 22:17 Order name: O2 Sat Monitoring; Complete Time: :43 [facility] 08/14 22:17 Order name: Urine Dipstick-Ancillary (obtain specimen); Complete Time: :43 [facility] 08/14 22:26 Order name: CT Stone Protocol jae Administered Medications: 23:05 Drug: Zofran 4 mg Route: IVP; Site: right antecubital; 23:30 Follow up: Response: No adverse reaction 23:08 Drug: TORadol 30 mg Route: IVP; Site: right antecubital; 08/15 00:00 Follow up: Response: No adverse reaction; Pain is unchanged, physician notified 08/14 23:09 Drug: morphine 4 mg {Note: Rass score 0.} Route: IVP; Site: right antecubital; 08/15 00:00 Follow up: Response: No adverse reaction; Pain is unchanged, physician notified 08/14 23:10 Drug: NS 0.9% 1000 ml Route: IV; Rate: 125 ml/hr; Site: right antecubital; 08/15 01:59 Follow up: Response: No adverse reaction; IV Status: Order to discontinue infusion 00:44 Drug: morphine 4 mg {Note: Rass score 0.} Route: IVP; Site: right forearm; 4 01:00 Follow up: Response: Pain is decreased jb4 00:46 Drug: Rocephin 1 grams Route: IV; Rate: per protocol; Site: right forearm; 00:48 Follow up: Response: No adverse reaction; IV Status: Completed infusion; IV Intake: [id number] 00:48 Drug: Magnesium Sulfate 1 grams Route: IVPB; Infused Over: 1 hrs; Site: right forearm; jb4 01:52 Follow up: IV Status: Completed infusion; IV Intake: 100ml lp1 Disposition: 08/15/19 00:53 Discharged to Home. Impression: Abdominal tenderness, Type 2 diabetes mellitus, Obesity, unspecified, Hypomagnesemia. - Condition is Stable. - Discharge Instructions: Abdominal Pain, Adult, Type 2 Diabetes Mellitus, Diagnosis, Adult, Hypomagnesemia, Nausea and Vomiting, Adult, Abdominal Pain, Adult, [id number], Type 2 Diabetes Mellitus, Diagnosis, Adult, [id number]. - Prescriptions for Bentyl 20 mg Oral Tablet - take 1 tablet by ORAL route every 6 hours As needed; 20 tablet. Pepcid 20 mg Oral Tablet - take 1 tablet by ORAL route every 12 hours for 10 days; 20 tablet. Zofran 4 mg Oral Tablet - take 1 tablet by ORAL route every 12 hours As needed; 20 tablet. - Medication Reconciliation Form, Thank You Letter, Antibiotic Education, Prescription Opioid Use, Work release form form. - Follow up: Private Physician; When: 2 - 3 days; Reason: Recheck today's complaints, Continuance of care, Re-evaluation by your physician. - Problem is new. - Symptoms have improved. Signatures: Dispatcher [employer] EDOnel Gambino MD MD cha Pena, Laura, RN RN lp1 Thanh Conde RN RN jb4 Corrections: (The following items were deleted from the chart) 00:54 00:53 08/15/2019 00:53 Discharged to Home. Impression: Abdominal tenderness; Type 2 jae diabetes mellitus; Obesity, unspecified. Condition is Stable. Forms are Medication Reconciliation Form, Thank You Letter, Antibiotic Education, Prescription Opioid Use. Follow up: Private Physician; When: 2 - 3 days; Reason: Recheck today's complaints, Continuance of care, Re-evaluation by your physician. Problem is new. Symptoms have improved. jae 02:03 00:54 08/15/2019 00:53 Discharged to Home. Impression: Abdominal tenderness; Type 2 lp1 diabetes mellitus; Obesity, unspecified; Hypomagnesemia. Condition is Stable. Forms are Medication Reconciliation Form, Thank You Letter, Antibiotic Education, Prescription Opioid Use. Follow up: Private Physician; When: 2 - 3 days; Reason: Recheck today's complaints, Continuance of care, Re-evaluation by your physician. Problem is new. Symptoms have improved. jae
[2019-08-15 02:56] VITALS: TEMP 98.6; O2SAT 98
[2019-08-15 03:00] VITALS: BP 121/81
--- NOTE | 2019-08-15 06:32 | EKG ---
Test Date: 2019-08-14 Test Time: 23:09:20 Director Call: JENNIFER MEASUREMENT RESULTS: Intervals: Rate: 82 DE: 144 QRSD: 90 QT: 396 QTc: 462 [place]: P: 48 DE: 144 QRS: 65 T: 78 INTERPRETIVE STATEMENTS: Normal sinus rhythm Normal ECG Compared to ECG 12/10/2017 20:37:57 T-wave abnormality no longer present Electronically Signed On 08-15-19 06:32:23 TOOL HONING MACHINE SET UP OPERATOR by Froylan Mccoy
--- NOTE | 2019-08-16 11:02 | RAD REPORT ---
EXAM DESCRIPTION: Stone Protocol CLINICAL HISTORY: ABD PAIN COMPARISON: None Available. TECHNIQUE: CT of the abdomen and pelvis without IV contrast. Evaluation of the solid organs and vasc ulature is suboptimal due to lack of IV contrast. FINDINGS: Lung Bases: The visualized lung bases are clear. Bones: Multilevel degenerative endplate spondylosis and facet arthropathy. Abdomen: Liver: The liver has normal size and density. Gallbladder: Prior cholecystectomy. Spleen, Pancreas, and Adrenal Glands: The spleen, pancreas, and adrenal glands are unremarkable. Kidneys: The kidneys have normal size without evidence of hydronephrosis. No obstructing ureteral danielle culi. Punctate nonobstructing right nephrolithiasis. Vasculature: The aorta and IVC have normal caliber and position. Stomach: The stomach and duodenum have normal course. Other: No free intraperitoneal air. No free fluid or lymphadenopathy. Pelvis: Bladder: Urinary bladder is unremarkable. Bowel: No dilated loops of large or small bowel. Appendix: Normal appendix. Pelvis: Uterus is not enlarged. IMPRESSION: 1. No acute inflammatory or obstructive process identified. There is an eccentric. Punct ate nonobstructing right nephrolithiasis. This exam was performed according to our departmental dose-optimization program, which includes autom ated exposure control, adjustment of the mA and/or kV according to patient size and/or use of iterati ve reconstruction technique. Electronically signed by: Laureano Su 08/15/2019 12:31 AM ASSISTANT PROFESSOR OF SOCIOLOGY Due to temporary technical issues with the PACS/Fluency reporting system, reports are being signed by the in house radiologist as a courtesy to ensure prompt reporting. The interpreting radiologist is f ully responsible for the content of the report.
== END 2019-08-15 02:03 | disposition home or self-care (01) ==
LOC: ER 22:10
DX: R10.819 Abdominal tenderness, unspecified site (principal); E83.42 Hypomagnesemia; E11.9 Type 2 diabetes mellitus without complications; E66.9 Obesity, unspecified; Z88.5 Allergy status to narcotic agent
CPT/HCPCS: 96365; 96361; 93005; 87088; 85025; 87086; 80048; 36415; 83735; 81025; 85610; 80076; 81003; 84484; 83690; 83880; 76377; 74176; 71045; 96375; 99284; J3475; J0696; J7030; J2405

== ENCOUNTER 2019-10-05 22:23 | Emergency (ER) | payer OTHER ==
[2019-10-05] MEDS ORDERED: ASPIRIN 81 MG CHEWABLE TABLET ONE (23:26)
[2019-10-05 23:37] LABS: Absolute Lymphocytes (CBC) 2.6 K/uL (0.7-4.9); Basophils % 0.4 % (0-1.3); Hematocrit 31.5 % (36.0-45.0); Lymphocytes % 34.3 % (15.3-44.8); MPV 8.9 fL (7.6-11.3); Protime INR 0.98; RBC Red Blood Cell Count 3.71 M/uL (3.86-4.86)
[2019-10-05 23:55] LABS: ALT/SGPT 15 U/L (12-78); AST/SGOT 10 U/L (15-37); Albumin 3.1 g/dL (3.4-5.0); Alkaline Phosphatase 121 U/L (45-117); BUN Blood Urea Nitrogen 15 mg/dL (7-18); Bicarbonate 28 mmol/L (21-32); Bilirubin Direct < 0.1 mg/dL (0-0.2); Bilirubin Total 0.2 mg/dL (0.2-1.0); Glucose Level 109 mg/dL (74-106); Lipase 149 U/L (73-393); Magnesium 1.7 mg/dL (1.8-2.4); NT PRO-BNP 27 pg/mL (<125); Potassium 3.7 mmol/L (3.5-5.1); Protein, Total 7.5 g/dL (6.4-8.2); Sodium Level 144 mmol/L (136-145); Troponin (Emerg Dept Use Only) < 0.02 ng/mL (0.0-0.045)
[2019-10-06] MEDS ORDERED: MAGNESIUM SULFATE 1 gm IVPB 1 GM/100 ML BAG IV ONE (00:46)
[2019-10-06] MEDS ORDERED: KETOROLAC 30 MG/ML INJ ONE (00:46)
[2019-10-06] MEDS ORDERED: HYDROCODONE/APAP 10/325 TAB ONE (01:29)
[2019-10-06] MEDS ORDERED: ONDANSETRON 4 MG/2 ML VIAL ONE (01:49)
[2019-10-06 02:07] LABS: Urine Blood 1+ (NEG); Urine Glucose NEGATIVE (NEG); Urine Protein NEGATIVE (NEG); Urine Specific Gravity 1.025 (1.005-1.030)
[2019-10-06 02:12] LABS: Urine Bacteria <20 /HPF (<20); Urine Culture Reflex Order REFLEXED
[2019-10-06] MEDS ORDERED: AMOX/K CLAV 875 MG TAB ONE (03:04)
--- NOTE | 2019-10-06 03:04 | EDPHYS ---
Physician Documentation [facility] Name: Jazmín Perez Age: 49 yrs Sex: Female : 1970 Arrival Date: 10/05/2019 Time: 22:25 Bed 20 Private MD: ED Physician Krzysztof Em HPI: 10/04 23:15 This 49 yrs old Female presents to ER via Ambulatory with complaints of Chest cp Pain, Sore Throat, Low Back Pain, Ear Pain. 23:15 The patient or guardian reports chest pain that is located primarily in the anterior cp chest wall, left. 23:15 Onset: today. The patient or guardian reports cough, that is intermittent, sore throat, cp ear pain. Onset: The symptoms/episode began/occurred 3 day(s) ago. The pain does not radiate. Associated signs and symptoms: Pertinent positives: low back pain, Pertinent negatives: diarrhea, fever, vomiting. The chest pain is described as aching. 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 - Social history:: Smoking status: Patient/guardian denies using. ROS: 23:20 Constitutional: Negative for chills, fever, poor PO intake. cp 23:20 Eyes: Negative for injury, pain, redness, and discharge. cp 23:20 ENT: Positive for ear pain, sore throat, Negative for drainage from ear(s), sinus congestion, sinus pain, difficulty swallowing, difficulty handling secretions. 23:20 Cardiovascular: Positive for chest pain, Negative for edema, palpitations. 23:20 Respiratory: Positive for cough, Negative for shortness of breath, wheezing. 23:20 Abdomen/GI: Negative for abdominal pain, vomiting, diarrhea, constipation. 23:20 Back: Positive for pain at rest, pain with movement, of the low back area. 23:20 Skin: Negative for cellulitis, rash. 23:20 Neuro: Negative for altered mental status, dizziness, headache, syncope, weakness. 23:20 All other systems are negative. Exam: 23:13 ECG was reviewed by the Attending Physician. cp 23:25 Head/Face: Normocephalic, atraumatic. Eyes: Pupils equal round and reactive to light, cp extra-ocular motions intact. Lids and lashes normal. Conjunctiva and sclera are non-icteric and not injected. Cornea within normal limits. Periorbital areas with no swelling, redness, or edema. ENT: Nares patent. No nasal discharge, no septal abnormalities noted. Tympanic membranes are normal and external auditory canals are clear. Oropharynx with no redness, swelling, or masses, exudates, or evidence of obstruction, uvula midline. Mucous membranes moist. 23:25 Chest/axilla: Normal chest wall appearance and motion. Nontender with no deformity. No lesions are appreciated. Cardiovascular: Regular rate and rhythm with a normal S1 and S2. No gallops, murmurs, or rubs. Normal PMI, no JVD. No pulse deficits. Respiratory: Lungs have equal breath sounds bilaterally, clear to auscultation and percussion. No rales, rhonchi or wheezes noted. No increased work of breathing, no retractions or nasal flaring. Abdomen/GI: Soft, non-tender, with normal bowel sounds. No distension or tympany. No guarding or rebound. No evidence of tenderness throughout. 23:25 Constitutional: The patient appears in no acute distress, alert, awake, non-diaphoretic, non-toxic, well developed, well nourished, obese. 23:25 Neck: ROM/movement: is normal, is supple, without pain, no range of motions limitations, no meningismus. 23:25 Back: pain, that is mild, of the low back area, ROM is normal. 23:25 Skin: no rash present. 23:25 Neuro: Orientation: to person, place \T\ time. Mentation: is normal, Motor: moves all fours, strength is normal, Gait: is steady, at a normal pace, without difficulty. 10/05 02:21 ECG was reviewed by the Attending Physician. cp Vital Signs: 10/04 22:36 BP 140 / 76; Pulse 84; Resp 17; Temp 99.6; Pulse Ox 99% ; Weight 110.22 kg; Height 5 wh ft. 2 in. (157.48 cm); 10/05 00:00 BP 115 / 59; Pulse 71; Resp 18; Pulse Ox 99% on R/A; 01:00 BP 100 / 61; Pulse 75; Resp 18; Pulse Ox 97% on R/A; 03:00 BP 111 / 58; Pulse 74; Resp 18; Pulse Ox 99% on R/A; 10/04 22:36 Body Mass Index 44.44 (110.22 kg, 157.48 cm) MDM: 10/04 22:31 Patient medically screened. 23:30 Differential diagnosis: bronchitis, abnormal EKG, acute myocardial infarction, acute cp pericarditis, chest wall pain, pneumonia, pneumothorax, pulmonary embolus, influenza, UTI, strep throat. 10/05 00:21 ED course: chest xray negative for infiltrates or focal pneumonia. 01:21 HEART Score: History: Slightly Suspicious (0), ECG: Non specific repolarization cp disturbance / LBTB / PM (1), Age: > 45 and < 65 years (1), Risk Factors: 1 or 2 risk factors (1), [DM] [Obesity] Troponin: < or = 1 x Normal Limit (0). The patient was given aspirin in the Emergency Department. 03:02 Data reviewed: vital signs, nurses notes, lab test result(s), EKG, radiologic studies, cp CT scan, and as a result, I will discharge patient. 10/04 23:03 Order name: Basic Metabolic Panel; Complete Time: 00: 10/05 00:18 Interpretation: Normal except: CL 110; GLUC 109; GFR 82; CA 8.2. 10/04 23:03 Order name: CBC with Diff; Complete Time: : 10/05 00:17 Interpretation: Normal except: RBC 3.71; HGB 9.9; HCT 31.5; MCH 26.8; MCHC 31.5; RDW cp 15.9. 10/04 23:03 Order name: LFT's; Complete Time: : 10/05 00:17 Interpretation: Normal except: AST 10; ALK 121; ALB 3.1; GLOB 4.4; A/G 0.7. 10/04 23:03 Order name: Magnesium; Complete Time: 00: 10/05 00:17 Interpretation: Abnormal: MG 1.7. 10/04 23:03 Order name: NT PRO-BNP; Complete Time: 00:16 10/04 23:03 Order name: PT-INR; Complete Time: 00:16 10/04 23:03 Order name: Troponin (emerg Dept Use Only); Complete Time: 00:16 10/05 00:18 Interpretation: Within normal limits: TROPED < 0.02; Reviewed. cp 10/04 23:03 Order name: Lipase; Complete Time: 00:16 10/04 23:08 Order name: Strep; Complete Time: 00:16 cp 10/05 00:17 Interpretation: Abnormal: GP A STREP SC \T\nbsp; GROUP A STREP SCREEN-- \T\nbsp; \T\nbsp; cp POSITIVE. 10/04 23:09 Order name: Urine Microscopic Only; Complete Time: 02:42 cp 10/05 02:42 Interpretation: Normal except: UWBC 5-10; URBC 5-10. cp 10/05 01:37 Order name: Urine Dipstick--Ancillary (enter results); Complete Time: 02:42 mw2 10/05 02:42 Interpretation: Normal except: UBLD 1+. cp 10/05 01:37 Order name: Urine --Ancillary (enter results); Complete Time: 02:42 mw2 10/05 02:12 Order name: Troponin (emerg Dept Use Only) 10/04 23:03 Order name: EKG; Complete Time: 23:11 10/04 23:03 Order name: Cardiac monitoring; Complete Time: 23:27 10/04 23:03 Order name: EKG - Nurse/Tech; Complete Time: 23:27 10/04 23:03 Order name: IV Saline Lock; Complete Time: 23:27 10/04 23:03 Order name: Labs collected and sent; Complete Time: 23:27 10/04 23:03 Order name: O2 Per Protocol; Complete Time: 23:28 10/04 23:03 Order name: O2 Sat Monitoring; Complete Time: 23:28 10/04 23:08 Order name: XRAY Chest Pa And Lat (2 Views) 10/05 02:14 Order name: Urine Culture EDNY 10/04 23:09 Order name: Urine Dipstick-Ancillary (obtain specimen); Complete Time: 01:31 10/04 23:09 Order name: Urine Test (obtain specimen); Complete Time: 01:31 cp 10/05 02:12 Order name: EKG - Nurse/Tech; Complete Time: 02:37 EC/03 23:13 Rate is 76 beats/min. Rhythm is regular. WI interval is normal. QRS interval is normal. cp QT interval is normal. T waves are Inverted in leads aVL, V2, V3. Interpreted by me. Reviewed by me. 10/05 02:21 Rate is 71 beats/min. Rhythm is regular. WI interval is normal. QRS interval is normal. cp QT interval is normal. T waves are Inverted in leads aVL, V2. Interpreted by me. Reviewed by me. Administered Medications: 10/04 23:37 Drug: Aspirin Chewable Tablet 324 mg Route: PO; rr5 10/05 02:13 Follow up: Response: No adverse reaction 00:44 Drug: TORadol 30 mg Route: IVP; Site: left forearm; 02:13 Follow up: Response: No adverse reaction 00:46 Drug: Magnesium Sulfate 1 grams Route: IVPB; Infused Over: 1 hrs; Site: left forearm; 02:13 Follow up: Response: No adverse reaction; IV Status: Completed infusion 01:28 Drug: HYDROcodone-acetaminophen 10 mg-325 mg 1 tabs {Note: RASS 0.} Route: PO; 02:14 Follow up: Response: No adverse reaction; Pain is decreased; RASS: Alert and Calm (0) 01:50 Drug: Zofran (Ondansetron) 4 mg Route: IVP; Site: left forearm; 02:14 Follow up: Response: No adverse reaction; Nausea is decreased 03:00 Drug: Augmentin 875 mg Route: PO; 03:22 Follow up: Response: No adverse reaction Disposition: 03:52 Co-signature as Attending Physician, Krzysztof Em MD. rn Disposition: 10/06/19 03:03 Discharged to Home. Impression: Streptococcal pharyngitis, Cough, Other chest pain, Low back pain. - Condition is Stable. - Discharge Instructions: Back Pain, Adult, Nonspecific Chest Pain, Strep Throat, Aspirin and Your Heart, Cough, Adult, Heat Therapy, Back Exercises. - Prescriptions for Augmentin 875- 125 mg Oral Tablet - take 1 tablet by ORAL route every 12 hours for 10 days; 20 tablet. Zofran 4 mg Oral Tablet - take 1 tablet by ORAL route every 12 hours As needed; 20 tablet. Tessalon Perles 100 mg Oral Capsule - take 2 capsule by ORAL route every 8 hours As needed; 30 capsule. Cyclobenzaprine 10 mg Oral Tablet - take 1 tablet by ORAL route every 8 hours As needed; 20 tablet. Diclofenac Sodium 75 mg Oral Tablet, Delayed Release (E.C.) - take 1 tablet by ORAL route 2 times per day; 20 tablet. - Medication Reconciliation Form, Thank You Letter, Antibiotic Education, Prescription Opioid Use, Work release form form. - Follow up: Private Physician; When: 2 - 3 days; Reason: symptoms continue. - Problem is new. - Symptoms have improved. Signatures: Dispatcher [employer] [facility] Krzysztof Em MD MD rn Onel Gibbs PA PA cp [place]alo, Winsy wh Roque, Raymond RN RN [id number] Corrections: (The following items were deleted from the chart) 10/04 23:27 23:11 Chest Single View+[email or web address] ordered. [facility] 10/05 00:18 00:17 Normal except: CL 110; GLUC 109; GFR 82. cp cp 03:22 03:03 10/06/2019 03:03 Discharged to Home. Impression: Streptococcal pharyngitis; wh Cough; Other chest pain; Low back pain. Condition is Stable. Forms are Medication Reconciliation Form, Thank You Letter, Antibiotic Education, Prescription Opioid Use. Follow up: Private Physician; When: 2 - 3 days; Reason: symptoms continue. Problem is new. Symptoms have improved. cp
--- NOTE | 2019-10-06 03:04 | ER ---
Nurse's Notes [facility] Name: Jazmín Perez Age: 49 yrs Sex: Female : 1970 Arrival Date: 10/05/2019 Time: 22:25 Bed 20 Private MD: Diagnosis: Streptococcal pharyngitis;Cough;Other chest pain;Low back pain Presentation: 10/04 22:36 Chief complaint: Patient states: C/O chest pain that started today, coughing, sore wh throat, ear pain and fever for a few days now accompanied by lower back pain. Coronavirus screen: The patient has NOT traveled to [place] in the past 14 days. Ebola Screen: Patient negative for fever greater than or equal to 101.5 degrees Fahrenheit, and additional compatible Ebola Virus Disease symptoms Patient denies exposure to infectious person. Initial Sepsis Screen: Does the patient meet any 2 criteria? No. Patient's initial sepsis screen is negative. Does the patient have a suspected source of infection? Yes: Productive cough/pneumonia. Risk Assessment: Do you want to hurt yourself or someone else? Patient reports no desire to harm self or others. 22:36 Method Of Arrival: Ambulatory 22:36 Acuity: LOU 3 22:42 Onset of symptoms is unknown. 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 - Social history:: Smoking status: Patient/guardian denies using. Screenin:39 Abuse screen: Denies threats or abuse. Denies injuries from another. Nutritional screening: No deficits noted. Tuberculosis screening: No symptoms or risk factors identified. Fall Risk None identified. Assessment: 22:40 General: Appears in no apparent distress. Behavior is calm, cooperative, appropriate for age. Pain: Complains of pain in chest Pain does not radiate. Pain currently is 8 out of 10 on a pain scale. Quality of pain is described as pressure, Pain began 1 day ago. Neuro: Level of Consciousness is awake, alert, obeys commands, Oriented to person, place, time, situation, Appropriate for age. Cardiovascular: Heart tones S1 S2. Respiratory: Airway is patent Respiratory effort is even, unlabored, Respiratory pattern is regular, symmetrical, Breath sounds are clear bilaterally. GI: Abdomen is round non-distended, Abd is soft and non tender X 4 quads. : No signs and/or symptoms were reported regarding the genitourinary system. EENT: Throat is pink. Derm: Skin is intact, is healthy with good turgor, Skin is pink, warm \T\ dry. normal. Musculoskeletal: Circulation, motion, and sensation intact. 10/05 00:10 Reassessment: Patient appears in no apparent distress at this time. No changes from previously documented assessment. Patient and/or family updated on plan of care and expected duration. Pain level reassessed. Patient is alert, oriented x 3, equal unlabored respirations, skin warm/dry/pink. 01:29 Reassessment: Patient appears in no apparent distress at this time. No changes from previously documented assessment. Patient and/or family updated on plan of care and expected duration. Pain level reassessed. Patient is alert, oriented x 3, equal unlabored respirations, skin warm/dry/pink. 03:00 Reassessment: Patient appears in no apparent distress at this time. No changes from previously documented assessment. Patient and/or family updated on plan of care and expected duration. Pain level reassessed. Patient is alert, oriented x 3, equal unlabored respirations, skin warm/dry/pink. Patient states feeling better. Patient states symptoms have improved. Vital Signs: 10/04 22:36 BP 140 / 76; Pulse 84; Resp 17; Temp 99.6; Pulse Ox 99% ; Weight 110.22 kg; Height 5 ft. 2 in. (157.48 cm); 10/05 00:00 BP 115 / 59; Pulse 71; Resp 18; Pulse Ox 99% on R/A; 01:00 BP 100 / 61; Pulse 75; Resp 18; Pulse Ox 97% on R/A; 03:00 BP 111 / 58; Pulse 74; Resp 18; Pulse Ox 99% on R/A; 10/04 22:36 Body Mass Index 44.44 (110.22 kg, 157.48 cm) ED Course: 10/04 22:25 Patient arrived in ED. jg7 22:30 Onel Gibbs PA is PHCP. cp 22:30 Krzysztof Em MD is Attending Physician. cp 22:35 Eligio Howell is Primary Nurse. 22:38 Triage completed. 22:42 Arm band placed on right wrist. wh 22:42 Patient has correct armband on for positive identification. Placed in gown. Bed in low wh position. Call light in reach. Side rails up X 1. hall monitor on. Pulse ox on. NIBP on. 22:43 Patient maintains SpO2 saturation greater than 95% on room air. wh 23:05 Inserted saline lock: 20 gauge in left forearm, using aseptic technique. Blood rr5 collected. 23:10 Strep swab sent to lab. patient refused for the flu test. rr5 23:36 XRAY Chest Pa And Lat (2 Views) In Process Unspecified. EDMS 04 03:21 No provider procedures requiring assistance completed. IV discontinued, intact, wh bleeding controlled, No redness/swelling at site. Administered Medications: 03 23:37 Drug: Aspirin Chewable Tablet 324 mg Route: PO; rr5 03/04 02:13 Follow up: Response: No adverse reaction 00:44 Drug: TORadol 30 mg Route: IVP; Site: left forearm; 02:13 Follow up: Response: No adverse reaction 00:46 Drug: Magnesium Sulfate 1 grams Route: IVPB; Infused Over: 1 hrs; Site: left forearm; 02:13 Follow up: Response: No adverse reaction; IV Status: Completed infusion 01:28 Drug: HYDROcodone-acetaminophen 10 mg-325 mg 1 tabs {Note: RASS 0.} Route: PO; 02:14 Follow up: Response: No adverse reaction; Pain is decreased; RASS: Alert and Calm (0) 01:50 Drug: Zofran (Ondansetron) 4 mg Route: IVP; Site: left forearm; 02:14 Follow up: Response: No adverse reaction; Nausea is decreased 03:00 Drug: Augmentin 875 mg Route: PO; 03:22 Follow up: Response: No adverse reaction Outcome: 03:03 Discharge ordered by . cp 03:21 Discharged to home ambulatory. 03:21 Condition: stable 03:21 Discharge instructions given to patient, Instructed on discharge instructions, follow up and referral plans. medication usage, POC Demonstrated understanding of instructions, follow-up care, medications, POC Prescriptions given X 4. 03:22 Patient left the ED. Signatures: Dispatcher [employer] EDMS Onel Gibbs PA PA cp [place], Winsy Leo Neri RN RN rr5 Cathryn Downingg7 Corrections: (The following items were deleted from the chart) 01:28 01:28 HYDROcodone-acetaminophen 10 mg-325 mg 1 tabs PO [facility]
[2019-10-06 03:43] VITALS: TEMP 99.6
[2019-10-06 03:46] VITALS: BP 111/58; O2SAT 99
--- NOTE | 2019-10-06 08:15 | RAD REPORT ---
EXAM DESCRIPTION: RAD - Chest Pa And Lat (2 Views) - 10/05/2019 11:36 pm CLINICAL HISTORY: Cough;Chest pain Chest pain. COMPARISON: Chest Single View dated 08/14/2019; Chest Single View dated 12/10/2017 FINDINGS: The lungs are clear. The heart is upper limit of normal in size. No displaced fractures.
--- NOTE | 2019-10-06 08:24 | EKG ---
Test Date: 2019-10-05 Test Time: 23:03:15 Critical Care Rn: RAY MEASUREMENT RESULTS: Intervals: Rate: 76 CA: 154 QRSD: 90 QT: 384 QTc: 432 [place]: P: 71 CA: 154 QRS: 75 T: 88 INTERPRETIVE STATEMENTS: Normal sinus rhythm Nonspecific T wave abnormality Abnormal ECG Compared to ECG 08/14/2019 23:09:20 T-wave abnormality now present Electronically Signed On 10-06-19 08:23:38 HYDRAULIC TESTER by Froylan Mccoy
--- NOTE | 2019-10-06 09:04 | EKG ---
Test Date: 2019-10-06 Test Time: 02:16:46 Strategic Intelligence Officer: JESSICA MEASUREMENT RESULTS: Intervals: Rate: 71 TN: 162 QRSD: 92 QT: 440 QTc: 478 [place]: P: 52 TN: 162 QRS: 49 T: 76 INTERPRETIVE STATEMENTS: Normal sinus rhythm Nonspecific ST and T wave abnormality Prolonged QT Abnormal ECG Compared to ECG 10/05/2019 23:03:15 ST (T wave) deviation now present Prolonged QT interval now present T-wave abnormality no longer present Electronically Signed On 10-06-19 09:03:56 LOSS CONTROL REPRESENTATIVE by Froylan Mccoy
== END 2019-10-06 03:22 | disposition home or self-care (01) ==
LOC: ER 22:23
DX: J02.0 Streptococcal pharyngitis (principal); R05 Cough; R07.89 Other chest pain; M54.5 Low back pain; Z88.6 Allergy status to analgesic agent; E11.9 Type 2 diabetes mellitus without complications
CPT/HCPCS: 96365; 93005 ×2; 87088; 85025; 87086; 80048; 36415; 83735; 81025; 85610; 80076; 87081; 84484 ×2; 83690; 83880; 71046; 96375; 99285; J3475; J2405; 81003; 81015

== ENCOUNTER 2020-05-14 08:14 | Emergency (ER) | payer OTHER ==
--- OUTSIDE RECORDS SUMMARY | 2020-05-14 08:16 | XMS REPORT | Continuity of Care Document ---
:1970 Author Organization [facility] t Address [address] [place] [address] Care Team Providers Name Role Phone Lazar DO Attending Clinician Doctor Unassigned, Name Attending Clinician Unavailable Problems Condition Condition Condition Status Onset Resolution Last Treating Co mments Source Name Details Category Date Date Treatment Clinician Date Trigger Trigger Problem Active [facility], [facility] right ring [facility] Trigger Trigger Problem Active [facility] left ring Eder ebenezer [facility] Pain, Pain, Diagnosis Active [facility], left hand, left [facility] Pain, Pain, Problem Active [facility] Allergies, Adverse Reactions, Alerts This patient has no known allergies or adverse reactions. Medications Ordered Filled Start Stop Current Ordering Indication Dosage Frequency Signature Comments Components Source Medication Medication Date Date Medication? Clinician (SIG) Name Name Meloxicam Meloxicam Yes Ron[facility] not [facility] [place] [facility] Metformin Metformin Yes Ron[facility] not [facility] HCl HCl [place] [facility] Naproxen Naproxen Yes Ronen not [facility] [place] [facility] Amoxicillin Amoxicillin Yes Ronen not [facility] -Pot -Pot [place] [facility] Clavulanate Clavulanate [facility] Hydrochloro Hydrochloro Yes Ronen not [facility] thiazide thiazide [place] [facility] Cyclobenzap Cyclobenzap Yes Ronen not [facility] rine HCl rine HCl [place] [facility] Vitamin D Vitamin D Yes Ron[facility] not [facility] (Ergocalcif (Ergocalcif [place] defined [facility] satya) satya) [facility] Ferrous Ferrous Yes Ronen not [facility] Sulfate Sulfate [place] [facility] Amitriptyli Amitriptyli Yes Ronen not [facility] ne HCl ne HCl [place] [facility] Methocarbam Methocarbam Yes Ronen not [facility] ol ol [place] [facility] Ondansetron Ondansetron Yes Ronen not [facility] HCl HCl [place] [facility] BusPIRone BusPIRone Yes Ron[facility] not [facility] HCl HCl [place] [facility] Diclofenac Diclofenac Yes Ronen not [facility] Sodium Sodium [place] [facility] Benzonatate Benzonatate Yes Ronen not [facility] [place] [facility] Gabapentin Gabapentin Yes Ronen not [facility] [place] [facility] Procedures This patient has no known procedures. Encounters Start End Encounter Admission Attending Care Care Encounter Source Date/Time Date/Time Type Type Clinicians Facility Department ID 2020-01-26 2020-01-26 Emergency Lazar, [facility] [id number] 20:05:19 21:04:00 Calin Hurtado [id number] [place] [id number] [place] [id number] 2020-01-26 2020-01-26 Orders Doctor TRANG [id number] 22 00:00:00 00:00:00 Only Unassigned, DIONICIO [id number] [place] [facility] [id number] 2020-01-20 2020-01-20 [facility] [id number] [facility] 08:00:00 08:00:00 [facility] Clin[facility] 2020-01-20 2020-01-20 Orders Doctor TRANG [id number] 00:00:00 00:00:00 Only Unassigned, DIONICIO [id number] [place] [facility] [id number] Results This patient has no known results.
[2020-05-14 08:57] LABS: Urine Blood 2+ (NEG); Urine Glucose NEGATIVE (NEG); Urine Protein NEGATIVE (NEG); Urine Specific Gravity 1.025 (1.005-1.030)
[2020-05-14 08:58] LABS: Urine Bacteria 20-50 /HPF (<20); Urine Culture Reflex Order REFLEXED; Urine Mucus LIGHT /HPF (NONE SEEN); Urine RBC <5 /HPF (NONE SEEN)
[2020-05-14] MEDS ORDERED: KETOROLAC 30 MG/ML INJ ONE (09:04)
--- NOTE | 2020-05-14 09:18 | RAD REPORT ---
EXAM DESCRIPTION: CT - Stone Protocol - 05/14/2020 8:57 am CLINICAL HISTORY: Abdominal pain. COMPARISON: August 2019 TECHNIQUE: Computed axial tomography of the abdomen pelvis was obtained without oral or IV contrast. Lack of IV and oral contrast limits evaluation of solid organs, bowel, and vessels. Coronal reformat billy images were obtained and reviewed. All CT scans are performed using dose optimization technique as appropriate and may include automated exposure control or mA/KV adjustment according to patient size. FINDINGS: 3 millimeter calculus right kidney. No hydronephrosis. No left renal calculus. Ureteral ca lculus is not seen. No bladder calculus. The liver, spleen, pancreas and adrenals appear grossly normal There is no evidence of diverticulitis. The appendix appears normal. Cholecystectomy Small ventral hernia contains fat at the level of the mid to lower abdomen. IMPRESSION: Nonobstructing right renal calculus
--- NOTE | 2020-05-14 09:39 | ER ---
Nurse's Notes [facility] Name: Jazmín Perez Age: 50 yrs Sex: Female : 1970 Arrival Date: 05/14/2020 Time: 08:16 Bed 5 Private MD: Diagnosis: Right kidney stone.;renal colic;back pain Presentation: 05/14 08:23 Risk Assessment: Do you want to hurt yourself or someone else? Patient reports no ph desire to harm self or others. 08:23 Chief complaint: Patient states: low back pain that began this morning. No known ss injury. Pt also c/o urinary frequency. Coronavirus screen: Client denies travel out of the [place] in the last 14 days. Ebola Screen: Patient denies exposure to infectious person. Patient denies travel to an Ebola-affected area in the 21 days before illness onset. Initial Sepsis Screen: Does the patient meet any 2 criteria? No. Patient's initial sepsis screen is negative. Does the patient have a suspected source of infection? No. Patient's initial sepsis screen is negative. Onset of symptoms was May 14, 2020. 08:23 Method Of Arrival: Ambulatory ss 08:23 Acuity: LOU 4 ss Historical: - Allergies: 08:27 Codeine (Upset stomach); ss - Home Meds: 08:27 metformin 500 mg Oral tr24 1 tab once daily [Active]; ss - PMHx: 08:27 Diabetes - NIDDM; ss - Immunization history:: Adult Immunizations up to date. - Social history:: Smoking status: Patient denies any tobacco usage or history of. Screenin:22 Abuse screen: Denies threats or abuse. Denies injuries from another. Nutritional ph screening: No deficits noted. Tuberculosis screening: No symptoms or risk factors identified. Fall Risk None identified. Assessment: 08:21 Reassessment: Dr Lazar at beside. ph 08:35 General: Appears in no apparent distress. uncomfortable, obese, well groomed, Behavior ph is calm, cooperative, appropriate for age, Denies fever. Pain: Complains of pain in left low back. Neuro: Level of Consciousness is awake, alert, obeys commands, Oriented to person, place, time, situation. Cardiovascular: Capillary refill < 3 seconds in bilateral fingers Patient's skin is warm and dry. Respiratory: Airway is patent Respiratory effort is even, unlabored. GI: No signs and/or symptoms were reported involving the gastrointestinal system. : Reports urinary frequency, Denies burning with urination. Derm: Skin is intact, is healthy with good turgor, Skin is pink, warm \T\ dry. Musculoskeletal: Circulation, motion, and sensation intact. Range of motion: limited in all extremities. 10:17 Reassessment: attempted to discharge patient. Pt c/o severe pain and states that ss previous medication administration did not seem to help. Dr. Lazar notified. Additional medications ordered and administered. Will continue to monitor patient. Vital Signs: 08:36 BP 131 / 69; Pulse 78; Resp 18; Temp 98.3; Pulse Ox 98% on R/A; ph 10:00 BP 128 / 78; Pulse 72; Resp 16; Temp 98.0; Pulse Ox 99% on R/A; ph ED Course: 08:16 Patient arrived in ED. ds1 08:18 Calin Lazar MD is Attending Physician. ps1 08:19 Autumn Sky, BERNABE is Primary Nurse. ph 08:22 Patient has correct armband on for positive identification. Bed in low position. Call ph light in reach. Side rails up X 1. Pulse ox on. NIBP on. 08:27 Triage completed. ss 08:27 Arm band placed on right wrist. ss 08:57 Stone Protocol In Process Unspecified. EDMS 10:07 No provider procedures requiring assistance completed. Patient did not have IV access ss during this emergency room visit. Administered Medications: 09:22 Drug: TORadol - Ketorolac 30 mg Route: IM; Site: right deltoid; hb 09:52 Follow up: Response: No adverse reaction hb 10:18 Follow up: Response: Pain is unchanged, physician notified ss 10:15 Drug: Zofran (Ondansetron) 4 mg Route: PO; ss 10:20 Follow up: Response: No adverse reaction ph 10:16 Drug: [place] 5 mg-325 mg 1 tabs Route: PO; ss 10:20 Follow up: Response: No adverse reaction ph Outcome: 09:39 Discharge ordered by . ps1 10:07 Discharged to home via wheelchair. ss 10:07 Condition: good 10:07 Discharge instructions given to patient, Instructed on discharge instructions, follow up and referral plans. medication usage, Demonstrated understanding of instructions, follow-up care, medications, Prescriptions given X 3. 10:08 Patient left the ED. 10:20 Patient left the ED. Signatures: Dispatcher [employer] [facility] Roberta Castillo ds1 Rosaura Michelle RN RN ss Autumn Sky RN RN ph Geraldine Platt RN RN hb Singer, Phillip, MD MD ps1 Corrections: (The following items were deleted from the chart) 08:38 08:23 Risk Assessment: Do you want to hurt yourself or someone else? Patient reports no ph desire to harm self or others. ph
--- NOTE | 2020-05-14 09:39 | EDPHYS ---
Physician Documentation [facility] Name: Jazmín Perez Age: 50 yrs Sex: Female : 1970 Arrival Date: 05/14/2020 Time: 08:16 Bed 5 Private MD: ED Physician Calin Lazar HPI: 05/14 08:23 This 50 yrs old Female presents to ER via Ambulatory with complaints of Lower ps1 Back Pain. 08:23 The patient presents with pain that is acute, with no known mechanism of injury. The ps1 symptoms are located in the low back, left low back. The pain does not radiate. The problem was sustained without known cause, Woke up this morning in pain. . Associated signs and symptoms: The patient has no apparent associated signs or symptoms, Pertinent negatives: abdominal pain, fever, incontinence, numbness, tingling, urinary retention, weakness. Severity of symptoms: At their worst the symptoms were severe, in the emergency department the symptoms are unchanged. Historical: - Allergies: 08:27 Codeine (Upset stomach); ss - Home Meds: 08:27 metformin 500 mg Oral tr24 1 tab once daily [Active]; ss - PMHx: 08:27 Diabetes - NIDDM; ss - Immunization history:: Adult Immunizations up to date. - Social history:: Smoking status: Patient denies any tobacco usage or history of. ROS: 08:23 Constitutional: Negative for fever, chills, and weight loss, Eyes: Negative for injury, ps1 pain, redness, and discharge, Cardiovascular: Negative for chest pain, palpitations, and edema, Respiratory: Negative for shortness of breath, cough, wheezing, and pleuritic chest pain, Abdomen/GI: Negative for abdominal pain, nausea, vomiting, diarrhea, and constipation, Skin: Negative for injury, rash, and discoloration, Neuro: Negative for headache, weakness, numbness, tingling, and seizure. 08:23 Back: Positive for pain with movement, Negative for injury or acute deformity, radiated pain. Exam: 08:23 Constitutional: This is a well developed, well nourished patient who is awake, alert, ps1 and in no acute distress. Head/Face: Normocephalic, atraumatic. Eyes: Pupils equal round and reactive to light, extra-ocular motions intact. Lids and lashes normal. Conjunctiva and sclera are non-icteric and not injected. Cardiovascular: Regular rate and rhythm. No gallops, murmurs, or rubs. Normal PMI, no JVD. No pulse deficits. Respiratory: Lungs have equal breath sounds bilaterally, clear to auscultation and percussion. No rales, rhonchi or wheezes noted. No increased work of breathing, no retractions or nasal flaring. Abdomen/GI: Soft, non-tender, with normal bowel sounds. No distension or tympany. No guarding or rebound. No evidence of tenderness throughout. Skin: Warm, dry with normal turgor. Normal color with no rashes, no lesions, and no evidence of cellulitis. MS/ Extremity: Pulses equal, no cyanosis. Neurovascular intact. Full, normal range of motion. Neuro: Awake and alert, GCS 15, oriented to person, place, time, and situation. Cranial nerves II-XII grossly intact. Sensory grossly intact. 08:23 Back: pain, that is moderate, of the left low back, ROM is normal, kyphosis, CVA tenderness, is absent, vertebral tenderness, is not appreciated, muscle spasm, is appreciated in the left low back, patient has leg length discrepancy. SI joint dysfunction. Paraspinal tenderness. Vital Signs: 08:36 BP 131 / 69; Pulse 78; Resp 18; Temp 98.3; Pulse Ox 98% on R/A; ph 10:00 BP 128 / 78; Pulse 72; Resp 16; Temp 98.0; Pulse Ox 99% on R/A; ph MDM: 08:23 Differential diagnosis: strain, sciatica, UTI, somatic dysfunction, Sacroiliitis. ps1 08:23 Data reviewed: vital signs, nurses notes. ED course: Patient has lower back pain cw ps1 sacroiliitis and fullness with palpation. Offered OMT to adjust in which the patient refused. Check UA for UTI. Atraumatic back pain and without features of CCS. No urinary retention or overflow. No saddle anesthesia or VPT. Patient had hematuria. CT stone ordered and had 3 mm non-obstructing stone. Home with Toradol and Zofran. Expectant management. Follow up with Arnoldo ([facility]) for further evaluation. . 08:34 Patient medically screened. ps1 05/14 08:33 Order name: Urine Microscopic Only; Complete Time: 09:01 05/14 08:39 Order name: Urine Dipstick-Ancillary; Complete Time: 09:01 EDCT 05/14 08:36 Order name: Stone Protocol; Complete Time: 09:46 EDCT 05/14 08:39 Order name: Urine --Ancillary; Complete Time: 09:01 EDCT 05/14 09:00 Order name: Urine Culture [facility] 05/14 08:30 Order name: Urine Dipstick-Ancillary (obtain specimen); Complete Time: 08:35 ps1 Administered Medications: 09:22 Drug: TORadol - Ketorolac 30 mg Route: IM; Site: right deltoid; hb 09:52 Follow up: Response: No adverse reaction hb 10:18 Follow up: Response: Pain is unchanged, physician notified ss 10:15 Drug: Zofran (Ondansetron) 4 mg Route: PO; ss 10:20 Follow up: Response: No adverse reaction ph 10:16 Drug: [place] 5 mg-325 mg 1 tabs Route: PO; ss 10:20 Follow up: Response: No adverse reaction ph Disposition: 05/14/20 09:39 Discharged to Home. Impression: Right kidney stone., renal colic, back pain. - Condition is Stable. - Discharge Instructions: Kidney Stones. - Prescriptions for ketorolac 10 mg Oral tablet - take 1 tablet by ORAL route every 4-6 hours not to exceed 40mg in 24hrs for up to 5 days total use; 10 tablet. Zofran 4 mg Oral Tablet - take 1 tablet by ORAL route every 12 hours As needed; 20 tablet. Keflex 500 mg Oral Capsule - take 1 capsule by ORAL route every 8 hours for 5 days; 15 capsule. - Medication Reconciliation Form, Thank You Letter, Antibiotic Education, Prescription Opioid Use form. - Follow up: Emergency Department; When: As needed; Reason: Fever > 102 F, Worsening of condition. Follow up: Private Physician; When: 1 - 2 days; Reason: Further diagnostic work-up. - Problem is new. - Symptoms have improved. Signatures: Dispatcher [employer] [facility] Rosaura Michelle RN RN Geraldine Platt RN RN Calin Lazar MD MD [facility] Autumn Sky RN ph Corrections: (The following items were deleted from the chart) 08:58 08:45 Stone Protocol+CT.RAD.BRZ ordered. EDMS EDMS 09:42 08:23 ED course: Patient has lower back pain cw sacroiliitis and fullness with ps1 palpation. Offered OMT to adjust in which the patient refused. Check UA for UTI. Atraumatic back pain and without features of CCS. No urinary retention or overflow. No saddle anesthesia or VPT. Home with Anaprox and Robaxin. Follow up with pain control if symptoms last longer than 2 weeks for further evaluation and management. . ps1 09:47 08:23 ED course: Patient has lower back pain cw sacroiliitis and fullness with ps1 palpation. Offered OMT to adjust in which the patient refused. Check UA for UTI. Atraumatic back pain and without features of CCS. No urinary retention or overflow. No saddle anesthesia or VPT. Patient had hematuria. CT stone ordered and had 5mm non-obstructing stone. Home with toradol and zofran. Expectant management. Follow up with Arnoldo ([facility]) for further evaluation. . ps1 09:47 09:39 05/14/2020 09:39 Discharged to Home. Impression: Right kidney stone.; renal ps1 colic; back pain. Condition is Stable. Forms are Medication Reconciliation Form, Thank You Letter, Antibiotic Education, Prescription Opioid Use. Follow up: Emergency Department; When: As needed; Reason: Fever > 102 F, Worsening of condition. Follow up: Private Physician; When: 1 - 2 days; Reason: Further diagnostic work-up. Problem is new. Symptoms have improved. ps1 10:08 09:47 05/14/2020 09:39 Discharged to Home. Impression: Right kidney stone.; renal ss colic; back pain. Condition is Stable. Discharge Instructions: Kidney Stones. Prescriptions for ketorolac 10 mg Oral tablet - take 1 tablet by ORAL route every 4-6 hours not to exceed 40mg in 24hrs for up to 5 days total use; 10 tablet, Zofran 4 mg Oral Tablet - take 1 tablet by ORAL route every 12 hours As needed; 20 tablet. and Forms are Medication Reconciliation Form, Thank You Letter, Antibiotic Education, Prescription Opioid Use. Follow up: Emergency Department; When: As needed; Reason: Fever > 102 F, Worsening of condition. Follow up: Private Physician; When: 1 - 2 days; Reason: Further diagnostic work-up. Problem is new. Symptoms have improved. ps1 10:20 10:08 05/14/2020 09:39 Discharged to Home. Impression: Right kidney stone.; renal ss colic; back pain. Condition is Stable. Discharge Instructions: Kidney Stones. Prescriptions for ketorolac 10 mg Oral tablet - take 1 tablet by ORAL route every 4-6 hours not to exceed 40mg in 24hrs for up to 5 days total use; 10 tablet, Zofran 4 mg Oral Tablet - take 1 tablet by ORAL route every 12 hours As needed; 20 tablet, Keflex 500 mg Oral Capsule - take 1 capsule by ORAL route every 8 hours for 5 days; 15 capsule. and Forms are Medication Reconciliation Form, Thank You Letter, Antibiotic Education, Prescription Opioid Use. Follow up: Emergency Department; When: As needed; Reason: Fever > 102 F, Worsening of condition. Follow up: Private Physician; When: 1 - 2 days; Reason: Further diagnostic work-up. Problem is new. Symptoms have improved. ss
[2020-05-14 10:16] VITALS: BP 131/69; TEMP 98.3; O2SAT 98
[2020-05-14] MEDS ORDERED: HYDROCODONE/APAP 5/325 MG TAB ONE (10:24)
[2020-05-14] MEDS ORDERED: ONDANSETRON 4 MG (ODT) TAB ONE (10:24)
== END 2020-05-14 10:20 | disposition home or self-care (01) ==
LOC: ER 08:14
DX: N20.0 Calculus of kidney (principal); E11.9 Type 2 diabetes mellitus without complications; Z88.5 Allergy status to narcotic agent
CPT/HCPCS: 74176; 76377; 81003; 81015; 81025; 87086; 87088; 96372; 99284

== ENCOUNTER 2020-05-29 22:27 | Emergency (ER) | payer OTHER ==
--- OUTSIDE RECORDS SUMMARY | 2020-05-29 22:29 | XMS REPORT | Continuity of Care Document ---
:1970 Author Organization [facility] t Address [address] [place] [address] Care Team Providers Name Role Phone Lazar [...] St (Ergocalcif (Ergocalcif [place] defined [facility] Ferrous Ferrous Yes Ronen not [facility] Sulfate Sulfate [facility] defined [facility] Amitriptyli Amitriptyli Yes Ronen not [facility] ne HCl ne HCl Puag defined [facility] [...] Department ID 2020-01-26 2020-01-26 Emergency Lazar, [facility] [place] [id number] 20:05:19 21:04:00 Calin Hurtado [id number] [place] [id number] [place] [id number] 2020-01-26 2020-01-26 Orders Doctor TRANG [id number] 00:00:00 00:00:00 Only UnassignedDIONICIO [id number] [place] [facility] [id number] 2020-01-20 2020-01-20 [facility] [id number] 08:00:00 08:00:00 [facility] ent Clinics 2020-01-20 2020-01-20 Orders Doctor TRANG [id number] 00:00:00 00:00:00 Only Unassigned, DIONICIO [id number] [place] [facility] [id number] Results This patient has no known results.
--- NOTE | 2020-05-29 22:43 | ER ---
Nurse's Notes [facility] Name: Jazmín Perez Age: 50 yrs Sex: Female : 1970 Arrival Date: 05/29/2020 Time: 22:31 Bed External Waiting Private MD: Diagnosis: Assessment: 05/29 22:42 Reassessment: contacted pt at [phone], pt reports she had to go home and will come sg back at a later time. ED Course: 22:31 Patient arrived in ED. bp1 22:35 William Villa MD is Attending Physician. mh7 Administered Medications: No medications were administered Outcome: 22:41 Eloped from waiting room. sg 22:41 Condition: good 22:42 Patient left the ED. Signatures: Aditya Zabala RN RN Anne Rivero bp1 William Villa MD MD mh7
== END 2020-05-29 22:42 | disposition left against medical advice (07) ==
LOC: ER 22:27
DX: Z02.9 Encounter for administrative examinations, unspecified (principal)

== ENCOUNTER 2020-08-02 | Emergency (ER) | payer SELFPAY ==
--- OUTSIDE RECORDS SUMMARY | 2020-08-02 15:52 | XMS REPORT ---
:1970 Author Organization [facility] Address [address] [place] [address] Care Team Providers Name Role Phone Ronen Puga Unavailable [phone] PROBLEMS Type Condition ICD9-CM [id number] Onset Condition SNOMED Code Notes Code Code Dates Status Problem Pain, joint, M25.542 Active 9600980296970356 hand, left Problem Primary M16.12 Active 310269013502566 osteoarthritis of left hip Problem Trigger finger, M65.342 Active 674820670 left ring finger Problem Trigger finger, M65.341 Active 990460650 right ring finger Problem Pain, joint, M25.541 Active 1795824378486939 hand, right ALLERGIES No Known Allergies ENCOUNTERS from 1970 to 2020-07-17 Encounter Location Date Provider Diagnosis [facility] [address] [place] [address] IMMUNIZATIONS Vaccine Route Administration Date Status Depo-Medrol (Methylprednisolone) 40mg Unknown January 19 Administered Depo-Medrol (Methylprednisolone) 40mg Unknown January 19 Administered LIDOCAINE HCL 10MG/ML Unknown January 20, 2020 Administer ed LIDOCAINE HCL 10MG/ML Unknown January 20, 2020 Administer ed SOCIAL HISTORY Tobacco Use: Social History Observation Description Date Details (start date - stop date) Never Smoker Sex Assigned At : Social History Observation Description Sex Assigned At Unknown Alcohol Screen Question Answer Notes Did you have a drink containing alcohol in the past year? No Points 0 Interpretation Negative Tobacco Use/Smoking Question Answer Notes Are you a never smoker Additional Findings: Tobacco Non-User Current non-smoker REASON FOR REFERRAL No Information VITAL SIGNS No information MEDICATIONS Medication SIG (Take, Route, Notes Start Date End Date Status Frequency, Duration) Ketorolac Tromethamine No t-Taking Diclofenac Sodium Not-Jarod ing Metformin HCl Active PROCEDURES No Information RESULTS No Results REASON FOR VISIT new water therapy orders MEDICAL (GENERAL) HISTORY Type Description Date Medical History DIABETES Surgical History gallstones Surgical History right shoulder Goals Section No Information Health Concerns No Information MEDICAL EQUIPMENT No Information MENTAL STATUS No Information FUNCTIONAL STATUS No Information ASSESSMENTS No Information PLAN OF TREATMENT Next Appt Details Provider Name:Ronen Puga, 2020-08-08 1 0:00:00 AM, [address], [place], [address], Insurance Providers Payer Name Payer Payer Insured Patient Coverage Coverage End Address Phone Name Relationship to Start Date Jose Daniel e Insured Ambetter from [phone] Shelly Da Silva self [place] [id number] a Health Plan [facility] [id number]
--- OUTSIDE RECORDS SUMMARY | 2020-08-02 15:52 | XMS REPORT ---
:1970 Author Organization [facility] Address [address] [place] [address] Care Team Providers Name Role Phone Ronen Puga Unavailable [phone] PROBLEMS Type Condition ICD9-CM [id number] Onset Condition SNOMED Code Notes Code Code Dates Status Problem Pain, joint, M25.542 Active 2208286505302961 hand, left Problem Primary M16.12 Active 002530306201635 osteoarthritis of left hip Problem Trigger finger, M65.342 Active 108764085 left ring finger Problem Trigger finger, M65.341 Active 370026455 right ring finger Problem Pain, joint, M25.541 Active 9442493850242876 hand, right ALLERGIES No Known Allergies ENCOUNTERS from 1970 to 2020-07-20 Encounter Location Date Provider Diagnosis [facility] [address], [place] [address] IMMUNIZATIONS Vaccine Route Administration Date Status Depo-Medrol [...] Information RESULTS No Results REASON FOR VISIT mobic refill MEDICAL (GENERAL) HISTORY Type Description Date Medical History DIABETES Surgical History gallstones Surgical History right shoulder Goals Section No Information Health Concerns No Information MEDICAL EQUIPMENT No Information MENTAL STATUS No Information FUNCTIONAL STATUS No Information ASSESSMENTS No Information PLAN OF TREATMENT Next Appt Details Provider Name:Ronen Puga, 2020-08-08 1 0:00:00 AM, [address], [place], [address], Insurance Providers Payer Name Payer Payer Insured Patient Coverage Coverage End Address Phone Name Relationship to Start Date Jose Daniel e Insured Ambetter from [phone] Shelly Da [place] self [place] [id number] [phone] a Health Plan [facility] [id number]
--- OUTSIDE RECORDS SUMMARY | 2020-08-02 15:52 | XMS REPORT | Continuity of Care Document ---
:1970 Author Organization [facility] t Address [address] [place] [address] Care Team Providers Name Role Phone Lazar DO Attending Clinician Doctor Unassigned, Name Attending Clinician Unavailable Problems This patient has no known problems. Allergies, Adverse Reactions, Alerts This patient has [...] Date/Time Type Type Clinicians Facility Department ID 2020-07-20 2020-07-20 Outpatient [facility] [id number] [facility] 2020-07-12 2020-07-12 Outpatient [facility] [id number] [facility] 2020-06-21 2020-06-21 Outpatient [facility] [id number] [facility] 2020-06-12 2020-06-12 Outpatient [facility] [id number] [facility] 2020-06-06 2020-06-06 Outpatient [facility] [id number] [facility] 2020-01-26 2020-01-26 [facility] [id number] 20:05:19 21:04:00 Calin Hurtado 350.1.13.10 [place] [id number] [place] [id number] 2020-01-26 2020-01-26 Orders Doctor TRANG [id number] 22 00:00:00 00:00:00 Only UnassignedDIONICIO 350.1.13.10 [place] [id number] [id number] 2020-01-20 2020-01-20 [facility] [id number] 08:00:00 08:00:00 [facility] ent Clinics 2020-01-20 2020-01-20 Orders Doctor TRANG [id number] 00:00:00 00:00:00 Only UnassignedDIONICIO 350.1.13.10 [place] [address]686 [id number] [id number] Results This patient has no known results.
--- NOTE | 2020-08-02 16:39 | ER ---
Nurse's Notes [facility] Name: Jazmín Perez Age: 50 yrs Sex: Female : 1970 Arrival Date: 08/02/2020 Time: 15:50 Bed Waiting Private MD: Diagnosis: Presentation: 08/02 16:00 Chief complaint: Patient states: right elbow pain that began 1 week ago. Pt denies aa5 known injury. Coronavirus screen: Client denies travel out of the [place] in the last 14 days. At this time, the client does not indicate any symptoms associated with coronavirus-19. Ebola Screen: Patient negative for fever greater than or equal to 101.5 degrees Fahrenheit, and additional compatible Ebola Virus Disease symptoms. Initial Sepsis Screen: Does the patient meet any 2 criteria? No. Patient's initial sepsis screen is negative. Does the patient have a suspected source of infection? No. Patient's initial sepsis screen is negative. Risk Assessment: Do you want to hurt yourself or someone else? Patient reports no desire to harm self or others. Onset of symptoms was July 2020. 16:00 Acuity: LOU 4 aa5 16:00 Method Of Arrival: Ambulatory aa5 Historical: - Allergies: 16:01 Codeine (Upset stomach); aa5 - Home Meds: 16:01 metformin 500 mg Oral tr24 1 tab once daily [Active]; meloxicam oral oral [Active]; aa5 - PMHx: 16:01 allergies; Diabetes - NIDDM; aa5 - Immunization history:: Adult Immunizations unknown. - Social history:: Smoking status: Patient denies any tobacco usage or history of. Vital Signs: 16:01 BP 126 / 84; Pulse 93; Resp 18 S; Temp 99.6(O); Pulse Ox 98% on R/A; Pain 8/10; aa5 ED Course: 15:50 Patient arrived in ED. ag5 15:59 Arm band placed on. aa5 16:00 Triage completed. aa5 Administered Medications: No medications were administered Outcome: 16:38 Patient left the ED. dm5 Signatures: Ama Malin RN RN dm5 Maria T Jeffrey RN RN aa5 Gale Amaya [facility]
== END 2020-08-02 16:38 | disposition left against medical advice (07) ==
DX: Z53.21 Procedure and treatment not carried out due to patient leaving prior to being seen by health care provider (principal)
CPT/HCPCS: 99281

== ENCOUNTER 2022-05-16 18:12 | Emergency (ER) | payer OTHER ==
--- OUTSIDE RECORDS SUMMARY | 2022-05-16 18:16 | XMS REPORT | Continuity of Care Document ---
:1970 Author Organization [facility] t Address [facility] [place] [address] Care Team Providers Name Role Phone RICASAM WILLOUGHBYIN Primary Care Physician Unavailable KAYLA LUTZ Attending Clinician Unavailable LACEY IVERSON Attending Clinician Unavailable BERNICE COLUNGA Attending Clinician Unavailable Bernice Amaya Attending Clinician FILIPE WIGGINS Attending Clinician Unavailable CLAYTON GARRIDO Attending Clinician Unavailable Kayla Lutz MD Attending Clinician Bharath Padgett CRNA Attending Clinician Trang Hunt MD Attending Clinician Doctor Unassigned, [place] Attending Clinician Unavailable Pob, Adc Lab Main Attending Clinician Unavailable Only, Adc Test Attending Clinician Unavailable RENÉE AGUILERA Attending Clinician Unavailable RENÉE AGUILERA Attending Clinician Unavailable ANDREW RESENDIZ Attending Clinician Unavailable Nurse, Hailey Pob Immunization Attending Clinician Unavailable Andrew Resendiz DO Attending Clinician Jonas Barker MD Attending Clinician Kyler Lazar DOip Attending Clinician KAYLA LUTZ Admitting Clinician Unavailable Kayla Lutz MD Admitting Clinician BERNICE COLUNGA Admitting Clinician Unavailable Payers Payer Name Policy Type Policy Number Effective Date Expiration Date Lucrecia clement [facility] JEY [id number] 2021 PLUS 00:00:00 [facility] [id number] 2015 HEALTH CHOICE 00:00:00 AMBETTER [id number] 2020 [facility] 00:00:00 PLAN Ambetter from [id number] Common Spi rit [facility] HIM AMBETTER [id number] 2019 FROM [place] 00:00:00 HEALTH Ambetter from [id number] Common Spi rit [facility] Ambetter from [id number] Common Spi rit [facility] Ambetter from [id number] Common Spi rit [facility] Problems Condition Condition Condition Status Onset Resolution Last Treating Co mments Source Name Details Category Date Date Treatment Clinician Date Morbid Morbid Disease Active Univers obesity obesity 6-14 [place] of with [place] mass index 00 [place] dical of of Branch 40.0-49.9 40.0-49.9 Arthritis Arthritis Disease Active Overview: Univers of left of left 01-04 Formattin ity o f hip hip 00:00: g of this [place] [address] note Medical might be Branch different from the original. Added automatic ally from request for surgery [id number] Hip pain, Hip pain, Disease Active UT left left 12-18 Health 00:00: 00 Left knee Left knee Disease Active UT pain pain 17 Health 00:00: 00 Arthritis Arthritis Disease Active Last UT of right of right 17 Assessmen Angela lth hip hip 00:00: t & Plan: 00 Formattin g of this note might be different from the original. She does have a component of hip arthritis on both hips, but more severe osteoarth ritis of the left knee as well. Today, I recommend ed activity modificat ions, weight loss, NSAIDs as needed (if no contraind ication such as a history of kidney disease), and gentle self-driv en exercise program. We discussed joint replaceme nt as a last resort option, which is guided by progressi ve symptomat ic worsening and unsuccess ful non-opera tive treatment . She does have a history of diet-cont rolled and medicatio n controlle d diabetes which she has worked very hard to try and control per her history. I recommend ed avoiding oral or injectabl e corticost eroid injection today. In the follow-up in 6 weeks as needed after failed physical therapy. Patient verbalize d cherrie vann. Recommend weight loss. 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 jail Disease Active Uni vers (current) (current) 8 ity of use of use of 00:00: [place] non-steroi non-steroi 00 Me dical jaiden jaiden Branch anti-infla anti-infla mmatories mmatories (nsaid) (nsaid) Other iron Other iron Disease Active U nivers deficiency deficiency 828 it y of anemia anemia 00:00: Medical Branch Subcutaneo Subcutaneo Disease Active U nivers us nodules us nodules 8 it y of 00:00: [place] [facility] Bilateral Bilateral Disease Active Uni vers knee pain knee pain 3-09 ity of 00:00: [place] [facility] [id number] [place] [address] osteoarthr Spirit itis of - [facility] left hip [facility] [id number] Trigger Problem Active Commo n finger, Spirit right ring - [facility] finger [facility] [id number] Pain, Problem Active Commo n [id number] joint, Spirit hand, - [facility] right [facility] [id number] Pain, Problem Active Commo n [id number] joint, Spirit hand, left - [facility] Allergies, Adverse Reactions, Alerts Allergy Allergy Status Severity Reaction(s) Onset Inactive Treating Comm ents Source Name Type Date Date Clinician CODEINE DRUG Active N/V Univers INGREDI 2-04 ity of 00:00: [place] [facility] Codeine Propensi Active Nausea And UT ty to Vomiting 09-07 Health adverse 00:00: reaction 00 s Social History Social Habit Start Date Stop Date Quantity Comments Source History of Common Spirit - Tobacco Use [facility] Sex Assigned At Common Sp mingo - [facility] History [facility] Alcohol Std Drinks History [facility] Alcohol Binge Exposure to 2022-04-09 2022-04-19 Not sure [facility]-CoV-2 00:00:00 08:10:00 [facility] (event) [place] Alcohol intake 2020-12-18 2020-12-18 Lif[facility] [place] Health 00:00:00 00:00:00 non-drinker (finding) History [facility] 2020-12-18 2020-12-18 1 [facility] Alcohol Frequency 00:00:00 00:00:00 Tobacco use and 2017-07-24 2017-07-24 Smokeless tobacco Un iversity of exposure 00:00:00 00:00:00 non-user [facility] Smoking Status Start Date Stop Date Source Never Smoker [facility] Never smoked tobacco [facility] Medications Ordered Filled Start Stop Current Ordering Indication Dosage Frequency Signature Comments Components Source Medication Medication Date Date Medication? Clinician (SIG) Name Name amitriptyli Yes amitriptyl Univers ne 150 mg 6-13 ine 150 mg ity of tablet 09:33: tablet [place] [id number] Take 1 Medical tablet Branch every day by oral route for 30 days. Fesoterodin Yes Toviaz 4 Un james e (TOVIAZ) 6-13 mg ity of 4 mg tablet 09:33: tablet,ext [place] 45 ended Medical release Branch oxybutynin Yes oxybutynin U nivers 10 mg 24 hr 6-13 chloride ity of tablet 09:33: ER 10 mg [place] 45 tablet,ext Medical ended Branch release 24 hr semaglutide Yes .25mg 0.25 mg. U nivers (OZEMPIC) 6-13 ity of 0.25 mg or 09:33: [place] 0.5 mg(2 45 Medical mg/1.5 mL) Branch PnIj semaglutide Yes Wegovy Univ ers , weight 6-13 0.25 ity of loss, 09:33: mg/0.5 mL [place] (WEGOVY) 45 subcutaneo Medic al 0.25 mg/0.5 us pen Branch mL PnIj SC injector injection 0.25 mg SC qwk x4wk, then 0.5 mg SC qwk x4wk, then 1 mg SC qwk x4wk, then 1.7 mg SC qwk x4wk, then 2.4 mg SC qwk dapaglifloz Yes Xigduo XR U nivers in-metformi 6-13 10 mg-500 ity of n (XIGDUO 09:33: mg [place] XR) 10-500 45 tablet,ext Med ical mg TBph ended Branch release Take 1 tablet every day by oral route for 30 days. clindamycin Yes clindamyci Univers 300 mg 6-13 n HCl 300 ity of capsule 09:33: mg capsule [place] 45 Take 1 Medical capsule 3 Branch times a day by oral route for 10 days. cyclobenzap Yes 10mg Take 10 mg Univers rine 10 mg 6-13 by mouth 2 ity of tablet 09:33: (two) [place] 45 times Medical daily. Branch DULoxetine Yes 60mg Take 60 mg U nivers 60 mg 6-13 by mouth ity of capsule 09:33: daily. [place] 45 Medical Branch gabapentin 0 Yes 100mg Take 100 Un james 100 mg 4-28 mg by ity of capsule 00:00: mouth 2 [place] 00 (two) Medical times Branch daily. lidocaine-p Yes APPLY TO Un james rilocaine 2-28 AFFECTED ity of 2.5-2.5 % 00:00: AREA EVERY [place] cream 00 DAY Medical NEEDED Branch eszopiclone Yes 1mg Take 1 mg U nivers 1 mg tablet 2-28 by mouth ity of 00:00: daily. [place] 00 Medical Branch methylPREDN 0 Yes [id number] 84mg Take 21 Univers ISolone 2-21 tablets by ity of (MEDROL, 00:00: mouth [place] LUNA,) 4 mg 00 SEE-INSTRU Med ical tablets CTIONS. Branch follow package directions methylPREDN 2020-08 Yes [id number] 84mg Take 21 Univers ISolone 0-19 [id number] tablets by ity of (MEDROL, 00:00: mouth [place] LUNA,) 4 mg 00 SEE-INSTRU Med ical tablets CTIONS. Branch follow package directions methocarbam Yes [id number] 750mg [id number] Take 1 UT ol 5-17 9103 [id number] tablet Health (Robaxin) 00:00: 3D (750 mg 750 MG 00 total) by tablet mouth 3 (three) times a day if needed for muscle spasms for up to 10 days. methocarbam 2020- No [id number] 750mg Q.[id number] Take 1 UT ol 5-17 05-28 9103 [id number] tablet Health (Robaxin) 00:00: 04:59 3D (750 mg 750 MG 00 :00 total) by tablet mouth 3 (three) times a day if needed for muscle spasms for up to 10 days. metFORMIN Yes UT (Glucophage 5-13 Health ) 1000 MG 00:00: tablet 00 metFORMIN Yes UT (Glucophage 5-13 Health ) 1000 MG 00:00: tablet 00 benzonatate 2019- Yes [id number] 100mg Take 1 Univers 100 mg 6-24 capsule by ity of capsule 00:00: mouth 3 [place] 00 (three) Medical times Branch daily as needed for Cough. chlorphenir Yes [id number] 4mg Take 1 Univers amine 4 mg 6-24 tablet by ity of tablet 00:00: mouth [place] 00 every 6 Medical (six) Branch hours as needed for Allergies or Runny nose. loratadine Yes 10mg Take 10 mg U nivers 10 mg 7-31 by mouth ity of tablet 00:00: daily. [address] Branch metFORMIN Yes TAKE 1 Univer s 1,000 mg 7-07 TABLET BY ity of tablet 00:00: MOUTH [place] 00 TWICE A Medical DAY Branch NEEDED WITH MORNING AND EVENING MEAL famotidine 2017 Yes 40mg Take 1 Unive rs 40 mg 2-20 tablet by ity of tablet 00:00: mouth [place] 00 daily. Medical Branch Meloxicam Meloxicam Yes Ronen not Co mmon [place] defined [facility] Metformin Metformin Yes Ronen not Co mmon HCl HCl [place] defined [facility] Naproxen Naproxen Yes Ronen not Comm on [place] defined [facility] Amoxicillin Amoxicillin Yes Ronen not Common -Pot -Pot [place] defined Spirit Clavulanate Clavulanate [facility] Hydrochloro Hydrochloro Yes Ronen not Common thiazide thiazide [place] defined [facility] Cyclobenzap Cyclobenzap Yes Ronen not Common rine HCl rine HCl [place] defined [facility] Vitamin D Vitamin D Yes Ronen not Co mmon (Ergocalcif (Ergocalcif [place] defined Spirit satya) satya) [facility] Ferrous Ferrous Yes Ronen not Common Sulfate Sulfate [place] defined [facility] Amitriptyli Amitriptyli Yes Ronen not Common ne HCl ne HCl [place] defined [facility] Methocarbam Methocarbam Yes Ronen not Common ol ol [place] defined [facility] Ondansetron Ondansetron Yes Ronen not Common HCl HCl [place] defined [facility] BusPIRone BusPIRone Yes Ronen not Co mmon HCl HCl [place] defined [facility] Diclofenac Diclofenac Yes Ronen not Common Sodium Sodium [place] defined [facility] Benzonatate Benzonatate Yes Ronen not Common [place] defined [facility] Gabapentin Gabapentin Yes Ronen not Common [place] defined [facility] Ketorolac Ketorolac No Ketorolac Tromethamin Tromethamin Tromethami e e ne Diclofenac Diclofenac No Diclofenac Sodium Sodium Sodium Metformin Metformin No Metformin HCl HCl HCl Ketorolac Ketorolac No Ketorolac Tromethamin Tromethamin Tromethami e e ne Diclofenac Diclofenac No Diclofenac Sodium Sodium Sodium Metformin Metformin No Metformin HCl HCl HCl Ketorolac Ketorolac No Ketorolac Tromethamin Tromethamin Tromethami e e ne Diclofenac Diclofenac No Diclofenac Sodium Sodium Sodium Metformin Metformin No Metformin HCl HCl HCl Ketorolac Ketorolac No Ketorolac Tromethamin Tromethamin Tromethami e e ne Diclofenac Diclofenac No Diclofenac Sodium Sodium Sodium metFORMIN metFORMIN No metFORMIN HCl HCl HCl Immunizations Ordered Filled Immunization Date Status Comments Sourc e Immunization Name Name SARS-COV-2 COVID-19 2021-04-23 Completed Unive rsity of PFIZER VACCINE 00:00:00 [facility] SARS-COV-2 COVID-19 2021-04-23 Completed Unive rsity of ALY/J&J VACCINE 00:00:00 [facility] SARS-COV-2 COVID-19 2021-04-02 Completed Unive rsity of PFIZER VACCINE 00:00:00 [facility] SARS-COV-2 COVID-19 2021-04-02 Completed Unive rsity of ALY/J&J VACCINE 00:00:00 [facility] Influenza Virus 2020-05-12 Completed Universit y of Vaccine Quad IM 3+ 00:00:00 [facility] LIDOCAINE HCL LIDOCAINE HCL 2020-01-20 Completed Common S pirit - 10MG/ML 10MG/ML 08:45:00 [facility] LIDOCAINE HCL LIDOCAINE HCL 2020-01-20 Completed Common S pirit - 10MG/ML 10MG/ML 08:45:00 [facility] LIDOCAINE HCL LIDOCAINE HCL 2020-01-20 Completed Common S pirit - 10MG/ML 10MG/ML 08:45:00 [facility] LIDOCAINE HCL LIDOCAINE HCL 2020-01-20 Completed Common S pirit - 10MG/ML 10MG/ML 08:45:00 [facility] LIDOCAINE HCL LIDOCAINE HCL 2020-01-20 Completed Common S pirit - 10MG/ML 10MG/ML 08:45:00 [facility] LIDOCAINE HCL LIDOCAINE HCL 2020-01-20 Completed Common S pirit - 10MG/ML 10MG/ML 08:45:00 [facility] Depo-Medrol Depo-Medrol 2020-01-20 Completed Common Spiri t - (Methylprednisolone (Methylprednisolone 08:44:00 [facility] ) 40mg ) 40mg [facility] Depo-Medrol Depo-Medrol 2020-01-20 Completed Common Spiri t - (Methylprednisolone (Methylprednisolone 08:44:00 [facility] ) 40mg ) 40mg Medical Center Depo-Medrol Depo-Medrol 2020-01-20 Completed Common Spiri t - (Methylprednisolone (Methylprednisolone 08:44:[address] [facility] ) 40mg ) 40mg Medical Center Depo-Medrol Depo-Medrol 2020-01-20 Completed Common Spiri t - (Methylprednisolone (Methylprednisolone 08:43:[address] [facility] ) 40mg ) 40mg [facility] Depo-Medrol Depo-Medrol 2020-01-20 Completed Common Spiri t - (Methylprednisolone (Methylprednisolone 08:43:[address] [facility] ) 40mg ) 40mg Medical Center Depo-Medrol Depo-Medrol 2020-01-20 Completed Common Spiri t - (Methylprednisolone (Methylprednisolone 08:43:[address] [facility] ) 40mg ) 40mg [facility] Influenza Virus 2019-09-13 Completed Universit y of Vaccine Quad IM 3+ 00:00:00 [facility] Vital Signs Vital Name Observation Time Observation Value Comments Source Systolic blood 2022-04-19 13:32:00 127 [facility]Hg[facility] Diastolic blood 2022-04-19 13:32:00 67 mm[Hg] [place] [facility] [place] Heart rate 2022-04-19 13:32:00 88 /min [facility] Body height 2022-04-19 13:32:00 154.9 cm [facility] Body weight 2022-04-19 13:32:00 117.028 kg [facility] BMI 2022-04-19 13:32:00 48.75 kg/m2 [facility] Body height 2020-12-18 16:17:00 157.5 [facility] weight 2020-12-18 16:17:00 115.667 [facility] BMI 2020-12-18 16:17:00 46.64 kg/m2 [facility] Body height 2020-12-18 16:17:00 157.5 cm [facility] Body weight 2020-12-18 16:17:00 115.667 [facility] BMI 2020-12-18 16:17:00 46.64 kg/m2 [facility] Procedures This patient has no known procedures. Encounters Start End Encounter Admission Attending Care Care Encounter Source Date/Time Date/Time Type Type Clinicians Facility Department ID 2022-01-04 Outpatient Shira LUTZ [facility] SOR [id number] Univers 12:25:16 KAYLA [facility] 2021-08-29 Outpatient [facility] Common 12:51:44 [id number] [facility] 2021-08-29 [facility] Common 11:59:56 [id number] [facility] 2021-08-29 [facility] Common 11:28:05 [id number] [facility] 2021-08-29 [facility] Common 11:27:12 [id number] [facility] 2021-06-01 Emergency [facility] [id number] Univers 02:46:06 [facility] 2020-12-18 Outpatient [facility] [id number] UT 09:37:27 [facility] 2020-12-18 Outpatient [facility] [id number] UT 09:37:27 [facility] 2020-12-18 Outpatient [facility] [id number] UT 09:37:27 [facility] 2020-12-15 Outpatient [facility] [id number] UT 12:03:34 [facility] 2020-12-15 Outpatient [facility] [id number] UT 12:03:34 [facility] 2020-12-15 Outpatient [facility] [id number] UT 12:00:05 [facility] 2020-12-09 [facility] [id number] UT 04:06:39 [facility] 2022-04-19 2022-04-19 Outpatient Shira COLUNGA [facility] [id number] Univers 08:55:00 23:59:00 BERNICE [facility] 2022-04-19 2022-04-19 Office Keanu [facility] [id number] Univers 08:45:00 09:00:00 Visit Bernice [facility] [id number] it [facility] [id number] Blaze as GREGOR?BLEA [id number] Pr betsy [address] OFFICE [facility] 2022-04-19 2022-04-19 Outpatient R KEANU [facility] [id number] Univers 08:45:00 08:45:00 BERNICE [facility] 2022-02-25 2022-02-25 [facility] [id number] Univers 15:15:00 15:15:00 [facility] 2022-02-21 2022-02-21 [facility] [id number] Univers 10:45:00 10:45:00 [facility] 2022-02-18 2022-02-18 Outpatient R ROSALIE [facility] [id number] Univers 10:30:00 10:30:00 CHILVANA ity o f [facility] 2022-01-18 2022-01-18 Outpatient R HEMA [facility] [id number] Univers 10:00:00 10:00:00 [facility]TON [facility] 2022-01-17 2022-01-17 Refill [facility] [id number] Univers 00:00:00 00:00:00 Kayla Serra [facility] [id number] it y of [place] [id number] Blaze as GREGOR?BLEA [id number] Pr betsy [address] OFFICE [facility] 2022-01-14 2022-01-14 [facility] [id number] Univers 06:59:00 09:15:00 KAYLA hills [facility] 2022-01-14 2022-01-14 Hospital [facility] [id number] Univers 06:59:00 09:15:00 Encounter Kayla MEEKS [id number] ity of [place].2.[place].2.686 [place] SUR[place] [id number] [place] [id number] Branch 2022-01-14 2022-01-14 Surgery [facility] [id number] Univers 08:20:00 09:12:00 Kayla MEEKS [id number] i ty of [place].2.[place].2.686 [place]ICAL [id number] [facility] 020 Branch 2022-01-14 2022-01-14 Anesthesia Bharath Padgett [facility] [id number] Univers 08:25:00 08:39:00 Event Trang Hunt [id number] ity of [facility] 4.2.7.2.686 [place]ICAL [id number] [facility] 020 Branch 2022-01-14 2022-01-14 Orders Doctor TRANG [id number] Univers 00:00:00 00:00:00 Only Unassigned, DIONICIO 350.1.13.[address] [facility] 4.2.7.2.686 Blaze as [id number] [facility] 009 Branch 2022-01-11 2022-01-11 [facility] [id number] Univers 07:39:32 23:59:00 Encounter Kayla MEEKS 350.1.13.10 ity of [place].2.7.2.[place] [id number] [facility] 807 Branch 2022-01-11 2022-01-11 [facility] [id number] Univers 07:39:18 23:59:00 KAYLA ity of [facility] 2022-01-11 2022-01-11 Sociology Instructor Luzmaria, Adc Lab Main [facility] [id number] [id number] Univers 08:30:00 08:45:00 Visit Kayla Lutz 350.1.13.10 ity of [place] 4.2.7.2.686 [place] PROFESSIO [id number] [facility] 353 Branch BUILDING 2022-01-11 2022-01-11 Laboratory Only, Adc Test [facility] 1.2.840. [id number] Univers 08:15:00 08:30:00 Only Kayla Lutz 350.1.13.10 ity of [place].2.[place].2.[place] [id number] [address] 2022-01-11 2022-01-11 Outpatient R BOLIVAR [facility] [id number] Univers 08:15:00 08:15:00 KAYLA hills [facility] 2022-01-11 2022-01-11 Telephone [facility] [id number] [id number] Univers 00:00:00 00:00:00 Kayla Serra HEALTH 350.1.13.10 it y of [place] 4.2.7.2.686 Blaze as GREGOR?BLEA [id number] Pr betsy PAREDES [address] [place] [address] OFFICE [facility] 2022-01-04 2022-01-04 Office [facility] [id number] Univers 11:15:00 11:30:00 Visit Bernice Singer [facility] [id number] it y of [place] 4.2.7.2.686 Blaze as GREGOR?BLEA [id number] Pr betsy PAREDES [address] [place] [address] OFFICE [facility] 2022-01-04 2022-01-04 Outpatient R KEANU [facility] [id number] Univers 11:15:00 11:15:00 [facility] 2022-01-04 2022-01-04 Outpatient [facility] [id number] Univers 11:15:00 11:15:00 [facility] 2022-01-04 2022-01-04 [facility] .2.840.114 [id number] Univers 00:00:00 00:00:00 Surgery Kayla Serra HEALTH 350.1.13.10 it y of [place] 4.2.7.2.686 Blaze as GREGOR?BLEA [id number] Pr betsy [address]NA[address] OFFICE [facility] 2021-12-20 2021-12-20 [facility] [id number] Univers 10:00:00 10:00:00 KAYLA hills [facility] 2021-12-11 2021-12-11 Telephone [facility] .2.840.114 [id number] Univers 00:00:00 00:00:00 Kayla Serra HEALTH 350.1.13.10 it y of [place] 4.2.7.2.686 Blaze as GREGOR?BLEA [id number] Pr betsy PAREDES [address] MEDICAL OFFICE [facility] 2021-12-07 2021-12-07 Outpatient R KEANU [facility] [id number] Univers 10:23:58 23:59:00 BERNICE ity of [facility] 2021-12-07 2021-12-07 Hospital [facility] 1.2.840.114 [id number] Univers 10:23:58 23:59:00 Encounter Bernice MEEKS 350.1.13.10 ity of [place] 4.2.7.2.686 [place] [id number] [facility] [address] [place] 2021-11-30 2021-11-30 Office [facility] 1.2.840.114 [id number] Univers 10:45:00 11:13:44 Visit Bernice Singer [facility] 350.1.13.10 it y of [place] 4.2.7.2.686 Blaze as GREGOR?BLEA [id number] Pr betsy PAREDES [address] [place] [address] OFFICE [facility] 2021-11-30 2021-11-30 Outpatient R KEANU [facility] [id number] Univers 10:45:00 11:13:44 BERNICE ity [facility] 2021-11-30 2021-11-30 [facility] [id number] Univers 10:45:00 10:45:00 BERNICE ity of [facility] 2021-11-28 2021-11-28 Telephone [place] [facility] 1.2.840.114 [id number] Univers 00:00:00 00:00:00 [facility] 350.1.13.10 it y of [place] 4.2.7.2.686 Blaze as GREGOR?BLEA [phone] Pr dicbernard PAREDES [address] [place] [address] MEDICAL OFFICE [facility] 2021-11-28 2021-11-28 Orders Doctor COSTELLO 1.2.840.114 [id number] Univers 00:00:00 00:00:00 Only Unassigned, DIONICIO 350.1.13.[address] [place] [facility] 4.2.7.2.686 Blaze as [phone] [address] 2021-11-27 2021-11-27 Telephone [facility] 1.2.840.114 [id number] Univers 00:00:00 00:00:00 Kayla L HEALTH 350.1.13.10 it y of [place] 4.2.7.2.686 Blaze as GREGOR?BLEA [phone] Pr betsy PAREDES [address] MEDICAL OFFICE [facility] 2021-11-22 2021-11-22 Orders Doctor TRANG 1.2.840.114 [id number] Univers 00:00:00 00:00:00 Only Unassigned, DIONICIO 350.1.13.[address] [facility] 4.2.7.2.686 Blaze as [phone] [address] 2021-11-21 2021-11-21 Telephone [facility] 1.2.840.114 [id number] Univers 00:00:00 00:00:00 Kayla L HEALTH 350.1.13.10 it y of [place] 4.2.7.2.686 Blaze as GREGOR?BLEA [phone] Pr betsy PAREDES [address] [place] [address] OFFICE [facility] 2021-11-21 2021-11-21 Telephone [facility] 1.2.840.114 [id number] Univers 00:00:00 00:00:00 Kayla L HEALTH 350.1.13.10 it y of [place] 4.2.7.2.686 Blaze as GREGOR?BLEA [phone] Pr betsy PAREDES [address] [place] [address] OFFICE [facility] 2021-11-19 2021-11-[address] [facility] 1.2.902.138 [id number] Univers 00:00:00 00:00:00 Bernice S HEALTH 350.1.13.10 it y of [place] 4.2.7.2.686 Blaze as GREGOR?BLEA [phone] Pr betsy PAREDES [address] [facility] OFFICE [facility] 2021-11-19 2021-11-19 Telephone [facility] 1.2.840.114 [id number] Univers 00:00:00 00:00:00 Kayla L HEALTH 350.1.13.10 it y of [place] 4.2.7.2.686 Blaze as GREGOR?BLEA [phone] Me betsy PAREDES [address] [facility] OFFICE [facility] 2021-11-12 2021-11-12 Telephone [facility] 1.2.840.114 [id number] Univers 00:00:00 00:00:00 Kayla L HEALTH 350.1.13.10 it y of [place] 4.2.7.2.686 Blaze as GREGOR?BLEA [phone] Pr betsy PAREDES [address] [facility] OFFICE [facility] 2021-10-29 2021-10-29 Telephone [facility] 1.2.840.114 [id number] Univers 00:00:00 00:00:00 Kayla L HEALTH 350.1.13.10 it y of [place] 4.2.7.2.686 Blaze as GREGOR?BLEA [phone] Pr betsy PAREDES 198 [facility] 2021-10-26 2021-10-26 Telephone [facility] 1.2.840.114 [id number] Univers 00:00:00 00:00:00 Kayla L HEALTH 350.1.13.10 it y of [place] 4.2.7.2.686 Blaze as GREGOR?BLEA [phone] Pr betsy PAREDES 198 [facility] 2021-10-24 2021-10-24 Outpatient Shira COLUNGA [facility] [id number] Univers 09:30:00 10:20:40 [facility] 2021-10-24 2021-10-24 [facility] 1..840.114 [id number] Univers 09:30:00 10:20:40 Visit [facility] 350.1.13.10 it y of [place] 4.2.7.2.686 Blaze as GREGOR?BLEA [phone] Pr betsy PAREDES [address] [place] [address] OFFICE [facility] 2021-10-24 2021-10-24 Outpatient [facility] [id number] Univers 09:30:00 10:20:40 [facility] 2021-10-24 2021-10-24 [facility] 1.2.840.114 [id number] Univers 09:30:00 10:20:40 Visit Bernice S HEALTH 350.1.13.10 it y of [place] 4.2.7.2.686 Blaze as GREGOR?BLEA [phone] Pr betsy PAREDES 198 [facility] 2021-10-19 2021-10-19 [facility]phone [facility] 1.2.294.338 [id number] Univers 00:00:00 00:00:00 Bernice S HEALTH 350.1.13.10 it y of [place] 4.2.7.2.686 Blaze as GREGOR?BLEA [phone] Pr betsy PAREDES [address] [place] [address] 2021-10-18 2021-10-18 [facility]phone [facility] 1.2.629.002 [id number] Univers 00:00:00 00:00:00 Bernice S HEALTH 350.1.13.10 it y of [place] 4.2.7.2.686 Blaze as GREGOR?BLEA [phone] Pr betsy PAREDES [address] [place] [address] 2021-10-12 2021-10-12 Outpatient R RENÉE AGUILERA [facility] [id number] Univers 14:00:00 15:00:16 [facility] 2021-10-02 2021-10-[address] [facility] 1.2.195.048 [id number] Univers 00:00:00 00:00:00 Bernice Singer HEALTH 350.1.13.10 it y of [place] 4.2.7.2.686 Blaze as GREGOR?BLEA [phone] Pr betsy PAREDES [address] [place] [address] 2021-10-02 2021-10-02 Orders Doctor TRANG 1.2.840.114 [id number] Univers 00:00:00 00:00:00 Only Unassigned, DIONICIO 350.1.13.10 ity of [place] [facility] 4.2.7.2.686 Blaze as [phone] [address] 2021-09-27 2021-09-27 Orders Doctor TRANG 1.2.840.114 [id number] Univers 00:00:00 00:00:00 Only Unassigned, DIONICIO 350.1.13.10 ity of [place] [facility] 4.2.7.2.686 Blaze as [phone] [address] 2021-09-24 2021-09-24 [facility]patient [facility] [id number] Univers 15:50:00 23:59:00 [facility] 2021-07-02 2021-07-02 (TEL) STLMLC STLMLC [id number] Co mmon 00:00:00 00:00:00 [facility] 2021-06-27 2021-06-27 Outpatient Shira COLUNGA [facility] [id number] Univers 14:15:00 14:15:00 [facility] 2021-06-27 2021-06-27 [facility]patient [facility] [id number] Univers 14:15:00 14:15:00 [facility] 2021-06-27 2021-06-[address] [facility] 1.2.840.114 [id number] Univers 13:39:57 13:54:57 Visit Bernice Singer [place] 350.1.13.10 it y [facility] 4.2.7.2.686 Blaze as GREGOR?BLEA [phone] [address] MEDICAL OFFICE BUILDING 2021-06-26 2021-06-26 Outpatient [facility] [id number] Univers 15:45:00 15:45:00 [facility] 2021-06-26 2021-06-26 Outpatient [facility] [id number] Univers 15:45:00 15:45:00 [facility] 2021-06-25 2021-06-[address] [facility] 1.2.303.069 [id number] Univers 00:00:00 00:00:00 Bernice Lucrecia FUENTESTON 350.1.13.10 i ty of [place] [phone] Pr betsy [place] [address] [address] BUILDING 2021-05-23 2021-05-[address] [facility] 1.2.702.570 [id number] Univers 00:00:00 00:00:00 Bernice Singer [facility] 350.1.13.10 it y of [place] 4.2.7.2.686 Blaze as Gregor?Blea [phone] Pr betsy paredes 198 [facility] Office [facility] 2021-05-22 2021-05-[address] [facility] 1.2.840.114 [id number] Univers 13:00:00 23:59:00 Encounter [facility] 350.1.13.10 ity of [place] 4.2.7.2.686 Blaze as Gregor?Blea [phone] Pr betsy paredes 809 [facility] Office [facility] 2021-05-22 2021-05-22 Outpatient R [facility] [id number] Univers 16:15:00 14:56:21 [facility] 2021-05-22 2021-05-22 Outpatient R [facility] [id number] Univers 16:15:00 14:56:21 [facility] 2021-05-22 2021-05-[address] [facility] 1.2.840.114 [id number] Univers 12:47:56 14:56:21 Visit [facility] 350.1.13.10 it y of [place] 4.2.7.2.686 Blaze as Gregor?Blea [phone] Pr betsy paredes 198 [facility] 2021-05-22 2021-05-22 Orders Doctor TRANG 1.2.840.114 [id number] Univers 00:00:00 00:00:00 Only Unassigned, DIONICIO 350.1.13.[address] [place] [facility] 4.2.7.2.686 Blaze as [phone] [address] 2021-04-23 2021-04-23 Outpatient R ASTRID [facility] [id number] Univers 10:10:00 10:10:00 ANDREW hills [facility] 2021-04-23 2021-04-23 Imm/Inj Nurse, Adc Pob Immunization [facility] 1.2.840.114 [id number] Univers 10:00:06 10:00:17 Visit Andrew Resendiz 350.1.13 .10 ity of [place] [phone] Pr dical nal [address] [facility] 2021-04-02 2021-04-02 Outpatient R ASTRID [facility] [id number] Univers 14:40:00 14:40:00 ANDREW hills [facility] 2021-04-02 2021-04-02 Imm/Inj Nurse, Adc Pob Immunization [facility] 1.2.840.114 [id number] Univers 13:41:25 13:41:44 Visit Andrew Resendiz 350.1.13 .10 [facility] [place]2.7.2.[place] [phone] Pr dical nal [address] [facility] 2021-01-26 2021-01-26 RefANIHSA Mccormack 1.2.840.114 [id number] CO 00:00:00 00:00:00 Lacey DARDENJOSE 350.1.13.58 [facility] Lillie TORRES 9.2.7.2.686 SPECIALTY [phone] CLINIC 1 2021-01-26 2021-01-26 Refill ANISHA Iverson 1.2.840.114 [id number] 00:00:00 00:00:00 Lacey [facility] 350.1.13.58 Lillie MULTI 9.2.7.2.686 SPECIALTY [phone] CLINIC 1 2020-12-18 2020-12-18 Office Timbo [facility] 1.2.840.114 [id number] [place] 09:22:21 12:11:17 Visit PAUL Hayward 350.1.13.58 [facility] Jonas MEDICAL 9.2.7.2.686 [address] 2 [phone] 2020-12-18 2020-12-18 Office Noemi-Baldomero [facility] 1.2.840.114 [id number] 09:22:21 12:11:17 Visit PAUL Hayward 350.1.13.58 [place] MEDICAL 9.2.7.2.686 [address] 1 [phone] [id number] 2020-09-06 2020-09-06 (TEL) STLMLC STLMLC [id number] Co mmon 00:00:00 00:00:00 [facility] 2020-07-20 2020-07-20 (TEL) STLMLC STLMLC [id number] Co mmon 00:00:00 00:00:00 [facility] 2020-07-12 2020-07-12 (TEL) STLMLC STLMLC [id number] Co mmon 00:00:00 00:00:00 [facility] 2020-06-21 2020-06-21 Outpatient STLMLC STLMLC [id number] Common 00:00:00 00:00:00 [facility] 2020-06-12 2020-06-12 Outpatient STLMLC STLMLC [id number] Common 00:00:00 00:00:00 [facility] 2020-06-06 2020-06-06 Outpatient STLMLC STLMLC [id number] Common 00:00:00 00:00:00 [facility] 2020-01-26 2020-01-26 Emergency [place], [facility] 1.2.062.898 [id number] Univers 20:05:19 21:04:00 Calin Meeks 350.1.13.10 i ty of [place] 4.2.7.2.686 [facility] [phone] [facility] [address] 2020-01-26 2020-01-26 Emergency [facility] 1.2.436.971 [id number] 20:05:19 21:04:00 Calin Meeks 350.1.13.10 [place] 4.2.7.2.686 [place] [phone] [facility] 2020-01-26 2020-01-26 Orders Doctor TRANG 1.2.840.114 [id number] Univers 00:00:00 00:00:00 Only Unassigned, DIONICIO 350.1.13.[address] [place] [facility] 4.2.7.2.686 Blaze [phone] [facility] [address] 2020-01-26 2020-01-26 Orders Doctor TRANG 1.2.840.114 [id number] 00:00:00 00:00:00 Only Unassigned, DIONICIO 350.1.13.[address] [facility] [phone] 009 2020-01-20 2020-01-20 Outpatient [id number] Common 08:00:00 08:00:00 [facility] 2020-01-20 2020-01-20 Orders Doctor TRANG Matthews.2.840.114 [id number] Univers 00:00:00 00:00:00 Only UnassignedDIONICIO 350.1.13.[address] [place] [facility] 4.2.7.2.686 Blaze as [phone] [facility] [address] 2020-01-20 2020-01-20 Orders Doctor TRANG Matthews.2.840.114 [id number] 00:00:00 00:00:00 Only UnassignedDIONICIO [facility].13.10 [facility] 4.2.7.2.686 [phone] 009 Results This patient has no known results.
[2022-05-16] MEDS ORDERED: ACETAMINOPHEN 500 MG TAB ONE (18:44)
--- NOTE | 2022-05-16 18:59 | RAD REPORT ---
EXAM DESCRIPTION: CT - Head Brain Wo Cont - 05/16/2022 6:53 pm CLINICAL HISTORY: headache, ear pain Headache, drowsiness COMPARISON: No comparisons TECHNIQUE: All CT scans are performed using dose optimization technique as appropriate and may inclu de automated exposure control or mA/KV adjustment according to patient size. FINDINGS: No intracranial hemorrhage, hydrocephalus or extra-axial fluid collection.No areas of brai n edema or evidence of midline shift. The paranasal sinuses and mastoids are clear. The calvarium is intact. IMPRESSION: No acute intracranial abnormality.
[2022-05-16] MEDS ORDERED: IBUPROFEN 400 MG TAB ONE (19:22)
--- NOTE | 2022-05-16 19:51 | ER ---
Nurse's Notes [facility] Name: Jazmín Perez Age: 52 yrs Sex: Female : 1970 Arrival Date: 05/16/2022 Time: 18:20 Bed Treatment Private MD: Diagnosis: Otitis media, unspecified, bilateral;Headache Presentation: 05/16 18:34 Chief complaint: Patient states: my ears and back of my head hurting so bad since [facility] today. Coronavirus screen: Vaccine status: Patient reports receiving the 2nd dose of the covid vaccine. Client denies travel out of the [place] in the last 14 days. Ebola Screen: Patient negative for fever greater than or equal to 101.5 degrees Fahrenheit, and additional compatible Ebola Virus Disease symptoms Patient denies exposure to infectious person. Patient denies travel to an Ebola-affected area in the 21 days before illness onset. Initial Sepsis Screen: Does the patient meet any 2 criteria? No. Patient's initial sepsis screen is negative. Does the patient have a suspected source of infection? No. Patient's initial sepsis screen is negative. Risk Assessment: Do you want to hurt yourself or someone else? Patient reports no desire to harm self or others. Onset of symptoms was May 16, 2022. 18:34 Method Of Arrival: Ambulatory [facility] 18:34 Acuity: LOU 3 [facility] Triage Assessment: 18:36 General: Appears uncomfortable, obese, Behavior is calm, cooperative, appropriate for [facility] age, anxious. Pain: Complains of pain in left ear. EENT: Reports pain in left ear ringing. 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 - Social history:: Smoking status: Patient denies any tobacco usage or history of. Screenin:50 Abuse screen: Denies threats or abuse. Nutritional screening: No deficits noted. em6 Tuberculosis screening: No symptoms or risk factors identified. Fall Risk Total Meyers Fall Scale indicates No Risk (0-24 pts). Assessment: 18:49 General: Appears uncomfortable, Behavior is cooperative. Pain: Complains of pain in em6 left ear. Neuro: Level of Consciousness is awake, alert, obeys commands, Oriented to person, place, time, situation. Cardiovascular: Patient's skin is warm and dry. Respiratory: Airway is patent Respiratory effort is even, unlabored, Respiratory pattern is regular, symmetrical. GI: No signs and/or symptoms were reported involving the gastrointestinal system. : No signs and/or symptoms were reported regarding the genitourinary system. EENT: Reports left ear pain . Derm: No signs and/or symptoms reported regarding the dermatologic system. Musculoskeletal: Circulation, motion, and sensation intact. Range of motion: intact in all extremities. Vital Signs: 18:34 BP 131 / 88; Pulse 106; Resp 18; Temp 98.8; Pulse Ox 98% ; Weight 104.33 kg; Height 5 5 ft. 1 in. (154.94 cm); Pain 10/10; 18:34 Body Mass Index 43.46 (104.33 kg, 154.94 cm) 5 ED Course: 18:20 Patient arrived in ED. mr 18:21 Onel Gibbs PA is PHCP. cp 18:21 Krzysztof Em MD is Attending Physician. cp 18:36 Triage completed. [facility] 18:36 Arm band placed on right wrist. [facility] 18:42 Hayde Holland, BERNABE is Primary Nurse. em6 18:51 Call light in reach. Warm blanket given. em6 18:51 CT Head Brain wo Cont Sent. em6 20:26 No provider procedures requiring assistance completed. Patient did not have IV access kb3 during this emergency room visit. Administered Medications: 18:49 Drug: Tylenol 1000 mg Route: PO; em6 19:33 Follow up: Response: No adverse reaction em6 19:24 Drug: Ibuprofen 800 mg Route: PO; em6 20:00 Follow up: Response: No adverse reaction; Pain is unchanged, physician notified kb3 20:20 Drug: morphine 8 mg Route: IM; Site: right ventrogluteal; kb3 20:26 Follow up: Response: No adverse reaction kb3 Medication: 20:26 VIS not applicable for this client. kb3 Outcome: 19:50 Discharge ordered by . cp 20:26 Discharged to home ambulatory. kb3 20:26 Condition: stable 20:26 Discharge instructions given to patient, Instructed on discharge instructions, follow up and referral plans. medication usage, Demonstrated understanding of instructions, follow-up care, medications. 20:27 Patient left the ED. kb3 Signatures: Lacey Dowd mr Bernie, ENEDINA Sykes cp, Jessica RN RN jh5 Hayde Holland RN RN em6 Brionna Dow RN RN kb3 Corrections: (The following items were deleted from the chart) 18:36 18:36 Allergies: Codeine (Upset stomach) [Inactive]; ginger 5
--- NOTE | 2022-05-16 19:51 | EDPHYS ---
Physician Documentation [facility] Name: Jazmín Perez Age: 52 yrs Sex: Female : 1970 Arrival Date: 05/16/2022 Time: 18:20 Bed Treatment Private MD: ED Physician Krzysztof Em HPI: 05/16 18:45 This 52 yrs old Female presents to ER via Ambulatory with complaints of Ear cp Pain. 18:45 The patient presents with pain, that is acute. The complaints affect the left ear and cp left occipital area. 18:45 Onset: The symptoms/episode began/occurred today. Associated signs and symptoms: cp Pertinent negatives: cough, fever, sinus trouble, sore throat, vomiting, neck pain. 18:45 Severity of symptoms: in the emergency department the symptoms are unchanged has not cp taken anything at home for pain. 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 - Social history:: Smoking status: Patient denies any tobacco usage or history of. ROS: 18:50 Constitutional: Negative for body aches, chills, fever, poor PO intake. cp 18:50 Eyes: Negative for injury, pain, redness, and discharge. cp 18:50 ENT: Positive for ear pain, Negative for drainage from ear(s), sore throat, difficulty swallowing, difficulty handling secretions. 18:50 Neck: Negative for pain with movement, pain at rest, stiffness, tenderness. 18:50 Cardiovascular: Negative for chest pain, palpitations. 18:50 Respiratory: Negative for cough, shortness of breath, wheezing. 18:50 Abdomen/GI: Negative for abdominal pain, nausea, vomiting, and diarrhea. 18:50 Skin: Negative for cellulitis, rash. 18:50 Neuro: Positive for headache, of the left occipital area, Negative for altered mental status, dizziness, numbness, syncope, weakness. 18:50 All other systems are negative. Exam: 18:55 Constitutional: The patient appears in no acute distress, alert, awake, non-toxic, well cp developed, well nourished, obese. 18:55 Head/face: Noted is swelling, that is mild, of the left occipital area, tenderness, cp that is moderate. 18:55 Eyes: Periorbital structures: appear normal, Pupils: equal, round, and reactive to light and accomodation, Extraocular movements: intact throughout, Conjunctiva: normal, no exudate, no injection, Sclera: no appreciated abnormality, Lids and lashes: appear normal, bilaterally. 18:55 ENT: External ear(s): are unremarkable, Ear canal(s): are normal, clear, TM's: bulging, is not appreciated, bilaterally, erythema, that is mild, bilaterally, Nose: is normal, Mouth: Lips: moist, Oral mucosa: pink and intact, moist, Posterior pharynx: Airway: no evidence of obstruction, patent, Tonsils: are normal in appearance, erythema, is not appreciated, exudate, is not appreciated. 18:55 Neck: C-spine: vertebral tenderness, is not appreciated, crepitus, is not appreciated, ROM/movement: is normal, is supple, without pain, no range of motions limitations, no meningismus, Lymph nodes: no appreciated lymphadenopathy. 18:55 Chest/axilla: Inspection: normal. 18:55 Cardiovascular: Rate: normal. 18:55 Respiratory: the patient does not display signs of respiratory distress, Respirations: normal, Breath sounds: are clear throughout, no decreased breath sounds, no stridor, no wheezing. 18:55 Abdomen/GI: Exam negative for discomfort, distension, guarding, Inspection: abdomen appears normal. 18:55 Back: pain, is absent, ROM is normal. 18:55 Skin: cellulitis, is not appreciated, no rash present. 18:55 Neuro: Orientation: to person, place \T\ time. Mentation: is normal, Motor: moves all fours, strength is normal, Sensation: is normal, Gait: is steady, at a normal pace, without difficulty. Vital Signs: 18:34 BP 131 / 88; Pulse 106; Resp 18; Temp 98.8; Pulse Ox 98% ; Weight 104.33 kg; Height 5 [facility] ft. 1 in. (154.94 cm); Pain 10/10; 18:34 Body Mass Index 43.46 (104.33 kg, 154.94 cm) [facility] MDM: 18:41 Patient medically screened. cp 19:00 Differential diagnosis: otitis media, otitis externa, ruptured TM, foreign body, acute cp otalgia, cerumen impaction. 19:50 Data reviewed: vital signs, nurses notes, radiologic studies, CT scan. cp 19:50 Counseling: I had a detailed discussion with the patient and/or guardian regarding: the cp historical points, exam findings, and any diagnostic results supporting the discharge/admit diagnosis, radiology results, to return to the emergency department if symptoms worsen or persist or if there are any questions or concerns that arise at home. Response to treatment: the patient's symptoms have markedly improved after treatment, and as a result, I will discharge patient. 05/16 18:42 Order name: CT Head Brain wo Cont cp 05/16 19:00 Order name: CT; Complete Time: 19:33 EDMS 05/16 19:33 Interpretation: Report reviewed. cp Administered Medications: 18:49 Drug: Tylenol 1000 mg Route: PO; em6 19:33 Follow up: Response: No adverse reaction em6 19:24 Drug: Ibuprofen 800 mg Route: PO; em6 20:00 Follow up: Response: No adverse reaction; Pain is unchanged, physician notified kb3 20:20 Drug: morphine 8 mg Route: IM; Site: right ventrogluteal; kb3 20:26 Follow up: Response: No adverse reaction kb3 Disposition Summary: 05/16/22 19:50 Discharge Ordered Location: Home cp Problem: new cp Symptoms: have improved cp Condition: Stable cp Diagnosis - Otitis media, unspecified, bilateral cp - Headache cp Followup: cp - With: Private Physician - When: 1 - 2 days - Reason: Recheck today's complaints Discharge Instructions: - Discharge Summary Sheet cp - Otitis Media, Adult cp - General Headache Without Cause cp Forms: - Medication Reconciliation Form cp - Thank You Letter cp - Antibiotic Education cp - Prescription Opioid Use cp Prescriptions: - Amoxicillin 875 mg Oral Tablet - take 1 tablet by ORAL route every 12 hours for 10 days; 20 tablet; Refills: 0, cp Product Selection Permitted - Diclofenac Sodium 75 mg Oral Tablet Sustained Release - take 1 tablet by ORAL route 2 times per day; 30 tablet; Refills: 0, Product cp Selection Permitted Addendum: 05/20/2022 21:07 Co-signature as Attending Physician, Krzysztof Em MD. r n Signatures: Dispatcher [employer] EDKrzysztof Branch MD MD rn Onel Gibbs, Cathryn Jose cp, RN RN jh5 Hayde Holland, RN RN em6 Brionna Dow RN RN kb3 Corrections: (The following items were deleted from the chart) 05/16 18:36 18:36 Allergies: Codeine (Upset stomach) [Inactive]; ginger jh5
[2022-05-16] MEDS ORDERED: MORPHINE 4 MG/ML SYR ONE (20:14)
[2022-05-16 20:50] VITALS: BP 131/88; TEMP 98.8; O2SAT 98
== END 2022-05-16 20:27 | disposition home or self-care (01) ==
LOC: ER 18:12
DX: H66.93 Otitis media, unspecified, bilateral (principal); R51.9 Headache, unspecified; E11.9 Type 2 diabetes mellitus without complications
CPT/HCPCS: 70450; 96372; 99283

== ENCOUNTER 2022-07-10 13:38 | Emergency (ER) | payer OTHER ==
--- OUTSIDE RECORDS SUMMARY | 2022-07-10 13:44 | XMS REPORT | Continuity of Care Document ---
:1970 Author Organization [facility] t Address [address] [place] [address] [address] [place] [address] Care Team Providers Name Role Phone AZUCENA STRAUSS Primary Care Physician Unavailable KAYLA LUTZ Attending Clinician Unavailable LACEY CLEMENTS Attending Clinician Unavailable Clemente KIDD, Chelo Larson Attending Clinician Unavailable ANNAMARIA BARKER Attending Clinician Unavailable Brodie Clemons MD Attending Clinician Annamaria Barker DO Attending Clinician BERNICE COLUNGA Attending Clinician Unavailable Bernice Amaya Attending Clinician FILIPE WIGGINS Attending Clinician Unavailable CLAYTON GARRIDO Attending Clinician Unavailable Kayla Lutz MD Attending Clinician Bharath Padgett CRNA Attending Clinician Trang Hunt MD Attending Clinician Doctor Unassigned, [place] Attending Clinician Unavailable Pob, Adc Lab Main Attending Clinician Unavailable Only, Adc Test Attending Clinician Unavailable RENÉE AGUILERA Attending Clinician Unavailable WILLY, RENÉE GENE Attending Clinician Unavailable ANDREW RESENDIZ Attending Clinician Unavailable Nurse, Adc Pob Immunization Attending Clinician Unavailable Andrew Resendiz DO Attending Clinician Timbo Hayward MD, Jonas Attending Clinician Calin Lazar DO Attending Clinician KAYLA LUTZ Admitting Clinician Unavailable ANNAMARIA BARKER Admitting Clinician Unavailable Annamaria Barker DO Admitting Clinician Kayla Lutz MD Admitting Clinician BERNICE COLUNGA Admitting Clinician Unavailable Payers Payer Name Policy Type Policy Number Effective Date Expiration Date Lucrecia clement [facility] [id number] 2021 PLUS 00:00:00 REPLACED BY [facility] [id number] 2015 HEALTH CHOICE 00:00:00 AMBETTER [id number] 2020 [facility] 00:00:00 PLAN Ambetter from [id number] Common Spi rit [facility] AMBETTER [id number] 2019 FROM [place] 00:00:00 HEALTH Ambetter from [id number] Common Spi rit [facility] Ambetter from [id number] Common Spi rit [facility] Ambetter from [id number] Common Spi rit [facility] Problems Condition Condition Condition Status Onset Resolution Last Treating Co mments Source Name Details Category Date Date Treatment Clinician Date Right Right Disease Active 2021-08 Univers lower lower 1-07 ity of quadrant quadrant 00:00: [place] abdominal abdominal 00 Medi danielle pain pain Branch Morbid Morbid Disease Active Univers obesity obesity 6-14 ity of with body with body 00:[place] mass index mass index 00 Me dical of of Branch 40.0-49.9 40.0-49.9 Arthritis Arthritis Disease Active Overview: Univers of left of left 603 Formatt[place] ity o f hip hip 00:00: g of this [place] 00 note Medical might be Branch different from the original. Added automatic ally from request for surgery [id number] Hip pain, Hip pain, Disease Active [facility] left left 5-17 Health 00:00: 00 Left knee Left knee Disease Active [facility] pain pain 5-17 Health 00:00: 00 Arthritis Arthritis Disease Active Last [facility] of right of right 5-17 Assessmen Angela lth hip hip 00:00: t [...] needed after failed physical therapy. Patient verbalize kate vann. Recommend weight loss. 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) (current) 8-28 ity of use of use of 00:00: [place] non-steroi non-steroi 00 Me dical jaiden jaiden Branch anti-infla anti-infla mmatories mmatories (nsaid) (nsaid) Other iron Other iron Disease Active U nivers deficiency deficiency 8-28 it y of anemia anemia 00:00: Medical Branch Subcutaneo Subcutaneo Disease Active U nivers us nodules us nodules 8-28 it y of 00:00: [place] 00 Medical Branch Bilateral Bilateral Disease Active Uni vers knee pain knee pain 3- ity of 00:00: [place] [address] Medical Branch Bilateral Bilateral Disease Active Uni vers knee pain knee pain 3- ity of 00:00: [place] [address] Medical Branch [id number] Pain, Problem Active Commo n [id number] joint, [facility] hand, left - [facility] [id number] [place] [address] osteoarthr [facility] itis of - [facility] left hip [facility] [id number] Trigger Problem Active Commo n finger, [facility] right ring - [facility] finger [facility] [id number] Pain, Problem Active Commo n [id number] joint, [facility] hand, - [facility] right [facility] Allergies, Adverse Reactions, Alerts Allergy Allergy Status Severity Reaction(s) Onset Inactive Treating Comm ents Source Name Type Date Date Clinician CODEINE DRUG Active N/V Univers INGREDI 2- ity of 00:00: [place] [address] Medical Branch Codeine Propensi Active Nausea And [facility] ty to Vomiting 09-07 Health adverse 00:00: reaction 00 s Social History Social Habit Start Date Stop Date Quantity Comments Source History [facility] Health Alcohol Std Drinks History [facility] Health Alcohol Binge History of Common [facility] - Tobacco Use [facility] Sex Assigned At Common Sp mingo - [facility] History [facility] Food 2022-06-13 2022-06-13 1 Univers ity of Worry 00:00:00 00:00:00 [facility] Branch History [facility] Food 2022-06-13 2022-06-13 1 Univers ity of Scarcity 00:00:00 00:00:00 [place] [facility] History SDOH 2022-06-13 2022-06-13 2 University o f Transport Med 00:00:00 00:00:00 [place] Medic al Branch History SDTX 2022-06-13 2022-06-13 2 University o f Transport Non-Med 00:00:00 00:00:00 [place] M edical Branch Tobacco use and 2022-06-11 2022-06-11 Smokeless tobacco Un iversity of exposure 00:00:00 00:00:00 non-user [facility] Exposure to 2022-05-31 2022-06-10 Not sure University of SARS-CoV-2 00:00:00 19:45:00 [facility] (event) Branch Education 2022-06-10 2022-06-10 21 [facility] :00:00 00:00:00 [facility] Alcohol intake 2020-12-18 2020-12-18 Lifetime [facility] 00:00:00 00:00:00 non-drinker (finding) History SDOH 2020-12-18 2020-12-18 1 [facility] Alcohol Frequency 00:00:00 00:00:00 Smoking Status Start Date Stop Date Source Never smoked tobacco [facility] Medications Ordered Filled Start Stop Current Ordering Indication Dosage Frequency Signature Comments Components Source Medication Medication Date Date Medication? Clinician (SIG) Name Name cefTRIAXone 2021-08- Yes 1000mg 1,000 mg, Univers (ROCEPHIN) 08-13 IV ity of 1,000 mg in 18:00: 17:59 [facility], [place] NaCl 0.9% 00 :00 Q24H ABX, Medic al (NS) 50 mL 2 doses, Branc h MINI-BAG First dose (after last modificati on) on Sneha 06/13/22 at 1200, Last dose on Fri06/14/22 at 1200, Administer over 30 Minutes, 50 mL
Reas on for Anti-Infec tive: Documented Infection< br>Documen billy Infection Site: Urine
D uration of Therapy: 7 days lactobacill 2021-08- Yes [id number] .5mg Take 1 Univers us 08-13-11 tablet by ity of acidophilus 00:00: 05:59 mouth in [place] 00 :00 the Medical morning [place] for 30 days. polyethylen 2021-08- Yes [id number] 17g Take 1 Univers e glycol 08-13-11 Packet by ity o f 3350 17 00:00: 05:59 mouth in [place] gram powder 00 :00 the Medical morning [place] for 30 days. lactobacill 2021-08- Yes [id number] .5mg Take 1 Univers us - 12-11 tablet by ity of acidophilus 00:00: 05:59 mouth [place] 00 :00 the Medical morning [place] for 30 days. polyethylen 2021-08- Yes [id number] 17g Take 1 Univers e glycol 1-10 12- Packet by ity o f 3350 17 00:00: 05:59 mouth in [place] gram powder 00 :00 the Medical morning Branch for 30 days. sennosides- 2021-08 Yes 1{tbl} 1 tablet, Univers docusate 1-09 Oral, ity of sodium 16:15: DAILY, [place] (SENOKOT-S) 00 First dose Me dical 8.6-50 mg on Fri per tablet 06/12/22 at 1 tablet 1015, Until Discontinu ed, Routine polyethylen 2021-08 Yes 17g 17 g, Unive rs e glycol -09 Oral, ity of 3350 powder 16:15: DAILY, [place] 17 g 00 First dose Medical on Fri Branch 06/12/22 at 1015, Until Discontinu ed, Routine amitriptyli 2021-08 Yes amitriptyl Univers ne 150 mg 1-09 ine 150 mg ity of tablet 16:08: tablet 30 Take 1 Medical tablet Branch every day by oral route for 30 days. Fesoterodin 2021-08 Yes Toviaz 4 Un james e (TOVIAZ) 1-09 mg ity of 4 mg tablet 16:08: tablet,ext [place] 30 ended Medical release Branch dapaglifloz 2021-08 Yes Xigduo XR U nivers in-metformi -09 10 mg-500 ity of n (XIGDUO 16:08: mg [place] XR) 10-500 30 tablet,ext Med ical mg TBph ended Branch release Take 1 tablet every day by oral route for 30 days. cyclobenzap 2021-08 Yes 10mg Take 10 mg Univers rine 10 mg -09 by mouth 2 ity of tablet 16:08: (two) [place] 30 times Medical daily. Branch DULoxetine 2021-08 Yes 60mg Take 60 mg U nivers 60 mg -09 by mouth ity of capsule 16:08: daily. [place] 30 Medical Branch amitriptyli 2021-08 Yes amitriptyl Univers ne 150 mg 1-09 ine 150 mg ity of tablet 16:08: tablet [place] 30 Take 1 Medical tablet Branch every day by oral route for 30 days. Fesoterodin 2021-08 Yes Toviaz 4 Un james e (TOVIAZ) 1-09 mg ity of 4 mg tablet 16:08: tablet,ext [place] 30 ended Medical release Branch dapaglifloz 2021-08 Yes Xigduo XR U nivers in-metformi -09 10 mg-500 ity of n (XIGDUO 16:08: mg [place] XR) 10-500 30 tablet,ext Med ical mg TBph ended Branch release Take 1 tablet every day by oral route for 30 days. cyclobenzap 2021-08 Yes 10mg Take 10 mg Univers rine 10 mg 09 by mouth 2 ity of tablet 16:08: (two) [place] 30 times Medical daily. Branch DULoxetine 2021-08 Yes 60mg Take 60 mg U nivers 60 mg 09 by mouth ity of capsule 16:08: daily. [place] 30 Medical Branch proMETHazin 2021-08 Yes [id number] 25mg Take 1 Univers e 25 mg 09 tablet by ity of tablet 00:00: mouth [place] 00 every 4 Medical (four) Branch hours as needed for N/V unresponsi ve to Ondansetro n. proMETHazin 2021-08 Yes [id number] 25mg Take 1 Univers e 25 mg 09 tablet by ity of tablet 00:00: mouth [place] 00 every 4 Medical (four) Branch hours as needed for N/V unresponsi ve to Ondansetro n. docusate 2021-08- Yes [id number] 100mg Take 1 Univers 100 mg 08-12 12-10 capsule by ity of capsule 00:00: 05:59 mouth in [place] 00 :00 the Medical morning Branch and 1 capsule in the evening. Do all this for 30 days. docusate 2021-08- Yes [id number] 100mg Take 1 Univers 100 mg 08-12 12-10 capsule by ity of capsule 00:00: 05:59 mouth in [place] 00 :00 the Medical morning Branch and 1 capsule in the evening. Do all this for 30 days. HYDROcodone 2021-08- Yes [id number] 1{tbl} Take 1 U nivers -acetaminop 08-12 11-17 tablet by it y of hen 5-325 00:00: 05:59 mouth [place] mg tablet 00 :00 every 6 Medical (six) Branch hours as needed for Pain (scale 7-10) for up to 7 days. Indication s: acute pain ciprofloxac 2021-08- Yes [id number] 500mg Take 1 Univers in HCl 500 08-12 tablet by ity of mg tablet 00:00: 05:59 mouth [place] 00 :00 every 12 Medical (twelve) Branch hours for 7 days. metroNIDAZO 2021-08- Yes [id number] 500mg Take 2 Univers LE 250 mg 08-12 tablets by ity of tablet 00:00: 05:59 mouth [place] 00 :00 every 12 Medical (twelve) Branch hours for 7 days. HYDROcodone 2021-08- Yes [id number] 1{tbl} Take 1 U nivers -acetaminop 08-12 tablet by it y of hen 5-325 00:00: 05:59 mouth [place] mg tablet 00 :00 every 6 Medical (six) Branch hours as needed for Pain (scale 7-10) for up to 7 days. Indication s: acute pain ciprofloxac 2021-08- Yes [id number] 500mg Take 1 Univers in HCl 500 08-12 tablet by ity of mg tablet 00:00: 05:59 mouth [place] 00 :00 every 12 Medical (twelve) Branch hours for 7 days. metroNIDAZO 2021-08- Yes [id number] 500mg Take 2 Univers LE 250 mg 08-12 tablets by ity of tablet 00:00: 05:59 mouth [place] 00 :00 every 12 Medical (twelve) Branch hours for 7 days. proMETHazin 2021-08 Yes 25mg 25 mg, IV U nivers e 08-11 Piggyback, ity of (PHENERGAN) 21:26: Q4HPRN, [place] 25 mg in 59 Starting Medical NaCl 0.9% on Fri (NS) 50 mL 06/11/22 at IV 1526, piggyback Until Discontinu ed, Routine, Nausea and Vomiting (N/V), N/V unresponsi ve to Ondansetro n acetaminoph 2021-08 Yes 650mg 650 mg, Un james en 08-11 Oral, ity of (TYLENOL) 15:55: Q6HPRN, [place] tablet 650 26 Starting Medic al mg on Fri Branch 06/11/22 at 0955, Until Discontinu ed, Routine, Pain (scale 1-3) enoxaparin 2021-08 Yes 40mg 40 mg, Unive rs (LOVENOX) 08 Subcutaneo ity of injection 15:00: [place], [place]ILY, [place] 40 mg 00 First dose Medical on [facility] 06/11/22 at 0900, Until Discontinu ed, Routine DULoxetine 2021-08 Yes 60mg 60 mg, Unive rs (CYMBALTA) 08 Oral, ity of capsule 60 15:00: DAILY, [place] mg 00 First dose Medical on [facility] 06/11/22 at 0900, Until Discontinu ed, Routine lactobacill 2021-08 Yes .5mg 0.5 mg, Uni vers us 08 Oral, ity of acidophilus 15:00: DAILY, [place] tablet 0.5 00 First dose Med ical mg on [facility] 06/11/22 at 0900, Until Discontinu ed, Routine Sliding 2021-08 Yes Subcutaneo Univ ers Scale 1-08 us, TID ity of Insulin - 14:00: MEALS, [place] Lispro 00 First dose Medical (HumaLOG) + on [facility] Fsbg 06/11/22 at Testing 0800, Until Discontinu ed, Routine morpHINE (4 2021-08 Yes 4mg 4 mg, Slow Univers mg/mL) 08-11 IV Push, ity of injection 4 12:52: Q4HPRN, [place] mg 08 Starting Medical on [facility] 06/11/22 at 0652, Until Discontinu ed, Routine, Pain (scale 7-10) cefTRIAXone 2021-08 No 1000mg 1,000 mg, Univers (ROCEPHIN) 08-11 11-09 IV ity of 1,000 mg in 08:00: 18:21 Piggyback, [place] NaCl 0.9% 00 :49 Q12H ABX, Medic al (NS) 50 mL 14 doses, Bran ch MINI-BAG First dose (after last reorder) on Fri06/11/22 at 0200, Last dose on Fri06/17/22 at 1400, Administer over 30 Minutes, 50 mL
Reas on for Anti-Infec tive: Documented Infection< br>Documen billy Infection Site: Urine
D uration of Therapy: 7 days docusate 2021-08 Yes 100mg 100 mg, Unive rs (COLACE) 1-08 Oral, BID, ity o f capsule 100 06:15: First dose [place] mg 00 on [facility] 06/11/22 at Branch 0015, Until Discontinu ed, Routine gabapentin 2021-08 Yes 200mg 200 mg, Uni vers (NEURONTIN) 108 Oral, BID, it y of capsule 200 06:15: First dose [place] mg 00 on [facility] 06/11/22 at Branch 0015, Until Discontinu ed, Routine cyclobenzap 2021-08 Yes 10mg 10 mg, Univ ers rine 108 Oral, BID, ity of (FLEXERIL) 06:15: First dose [place] tablet 10 00 on [facility] mg 06/11/22 at Branch 0015, Until Discontinu ed, Routine ondansetron 2021-08 Yes 4mg 4 mg, Slow Univers (ZOFRAN 08-11 IV Push, ity of (PF)) 06:06: Q6HPRN, [place] injection 4 47 Starting Medi danielle mg on [facility] 06/11/22 at 0006, Until Discontinu ed, Routine, Nausea and Vomiting (N/V) traMADoL 2021-08- Yes 50mg 50 mg, Univer s (ULTRAM) 08-1110 Oral, ity of tablet 50 06:06: 06:05 Q8HPRN, [place] mg 37 :37 Starting Medical on 06/11/22 at 0006, Until Sneha 06/13/22 at 0005, Routine, Pain (scale 4-6) FENTanyl PF 2021-08- No 50ug 50 mcg, Un james (SUBLIMAZE 08-11 Slow IV ity o f (PF)) 05:58: 12:52 Push, [place] injection 16 :20 Q4HPRN, Medical 50 mcg Starting Branch on Fri06/10/22 at 2358, Until Fri06/11/22 at 0652, Routine, Pain (scale 7-10) NaCl 0.9% 2021-08 Yes 1000mL at 100 Univ ers (NS) IV 1-08 mL/hr, IV ity of infusion 04:30: Infusion, [place] 1,000 mL 00 CONTINUOUS Medic al , Starting Branch on Fri06/10/22 at 2230, Until Discontinu ed, Routine NaCl 0.9% 2021-08 No 1500mL at 999 Uni vers (NS) bolus 08-11 mL/hr, ity of infusion 03:45: 03:33 1,500 mL, [place] 1,500 mL 00 :01 IV Medical Infusion, Branch ONCE, 1 dose, On Fri06/10/22 at 2145, KUNAL ondansetron 2021-08 No 4mg 4 mg, Slow Univers (ZOFRAN 08-11 IV Push, ity of (PF)) 03:17: 06:07 Q6HPRN, [place] injection 4 24 :04 Starting Medi danielle mg on Fri06/10/22 at 2117, Until Fri06/11/22 at 0007, KUNAL, Nausea and Vomiting (N/V) metoclopram 2021-08 No 10mg 10 mg, Uni vers raven HCl 08-11 Slow IV ity of (REGLAN) 03:17: 21:27 Push, [place] injection 15 :54 TIDPRN, Medical 10 mg Starting Branch on Fri06/10/22 at 2117, Until Fri06/11/22 at 1527, Routine, Nausea and Vomiting (N/V) morpHINE (4 2021-08 4mg 4 mg, Slow Univers mg/mL) 08-11 IV Push, ity of injection 4 03:16: 05:58 Q4HPRN, [place] mg 49 :48 Starting Medical on Fri06/10/22 at 2116, Until Fri06/10/22 at 2358, Routine, Pain (scale 7-10) oxybutynin 2021-08- No oxybutynin Univers 10 mg 24 hr 08-11 chloride ity of tablet 00:05: 00:00 ER 10 mg [place] 07 :00 tablet,ext Medical ended Branch release 24 hr semaglutide 2021-08- No .25mg 0.25 mg. Univers (OZEMPIC) 08-11 ity of 0.25 mg or 00:05: 00:00 [place] 0.5 mg(2 07 :00 Medical mg/1.5 mL) Branch PnIj semaglutide 2021-08 Wegovy Uni vers , weight 08-11 0.25 ity of loss, 00:05: 00:00 mg/0.5 mL [place] (WEGOVY) 07 :00 subcutaneo Medic al 0.25 mg/0.5 us pen Branch mL PnIj SC injector injection 0.25 mg SC qwk x4wk, then 0.5 mg [place] qwk x4wk, then 1 mg [place] qwk x4wk, then 1.7 mg [place] qwk x4wk, then 2.4 mg [place] qwk clindamycin 2021-08 clindamyci Univers 300 mg 08-11 n HCl 300 ity of capsule 00:05: 00:00 mg capsule [place] 07 :00 Take 1 Medical capsule 3 Branch times a day by oral route for 10 days. NaCl 0.9% 2021-08 500mL at 999 Univ ers (NS) bolus 08-11 mL/hr, 500 it y of infusion 00:00: 00:17 mL, IV [place] 500 mL 00 :00 Infusion, Medical ONCE, 1 Branch dose, On 06/10/22 at 1800, STAT proMETHazin 2021-08 No 25mg 25 mg, IV Univers e 08-11 Piggyback, ity of (PHENERGAN) 00:00: 00:06 ONCE, 1 [place] 25 mg in 00 :00 dose, On Medical NaCl 0.9% Mon Branch (NS) 50 mL 06/10/22 at IV 1800, KUNAL piggyback ondansetron 2021-08 No 4mg 4 mg, Slow Univers (ZOFRAN 08-10 IV Push, ity of (PF)) 23:15: 22:25 ONCE, 1 [place] injection 4 00 :00 dose, On Medi danielle mg [facility] Branch 06/10/22 at 1715, KUNAL morpHINE (4 2021-08 No 4mg 4 mg, Slow Univers mg/mL) 08-10 IV Push, ity of injection 4 22:15: 21:21 ONCE, 1 [place] mg 00 :00 dose, On Medical [facility] Branch 06/10/22 at 1615, STAT cefTRIAXone 2021-08- No 1000mg 1,000 mg, Univers (ROCEPHIN) 08-10 IV ity of 1,000 mg in 20:15: 20:51 Piggyback, [place] NaCl 0.9% 00 :00 ONCE, 1 Medical (NS) 50 mL dose, On Bran h MINI-BAG Fri06/10/22 at 1415, Administer over 30 Minutes, 50 mL
Reas on for Anti-Infec tive: Documented Infection< br>Documen billy Infection Site: Urine<br&g t;Duration of Therapy: 7 days ketorolac 2021-08 No 30mg 30 mg, Unive rs (TORADOL) 08-10 Slow IV ity of injection 20:00: 19:01 Push, [place] 30 mg 00 :00 ONCE, 1 Medical dose, On Branch Fri06/10/22 at 1400, Routine morpHINE (4 2021-08 No 4mg 4 mg, Slow Univers mg/mL) 08-10 IV Push, ity of injection 4 19:30: 19:29 ONCE, 1 [place] mg 00 :00 dose, On Medical [facility] Branch 06/10/22 at 1330, STAT ondansetron 2021-08 No 4mg 4 mg, Slow Univers (ZOFRAN 08-10 IV Push, ity of (PF)) 19:30: 19:29 ONCE, 1 [place] injection 4 00 :00 dose, On Medi danielle mg [facility] 06/10/22 at 1330, KUNAL FENTanyl PF 2021-08 No 50ug 50 mcg, Un james (SUBLIMAZE 08-10 Slow IV ity o f (PF)) 18:01: 18:02 Push, [place] injection 00 :00 ONCE, 1 Medical 50 mcg dose, On Branch Fri06/10/22 at 1215, Routine cefpodoxime 2021-08 No [id number] 100mg Take 1 Univers 100 mg 08-10 tablet by ity of tablet 00:00: 00:00 mouth in [place] 00 :00 the Medical morning Branch and 1 tablet in the evening. Do all this for 7 days. amitriptyli Yes amitriptyl Univers ne 150 mg 6-13 ine 150 mg ity of tablet 09:33: tablet [place] 45 Take 1 Medical tablet Branch every day by oral route for 30 days. Fesoterodin Yes Toviaz 4 Un james e (TOVIAZ) 6-13 mg ity of 4 mg tablet 09:33: tablet,ext [place] 45 ended Medical release Branch oxybutynin 0 Yes oxybutynin U nivers 10 mg 24 hr 6-13 chloride ity of tablet 09:33: ER 10 mg [place] 45 tablet,ext Medical ended Branch release 24 [...] 09:33: daily. [place] 45 Medical Branch gabapentin 2022-0 Yes 100mg Take 100 Un james 100 mg 4-28 mg by ity of capsule 00:00: mouth 2 [place] (two) Medical times Branch daily. gabapentin 2022-0 Yes 100mg Take 100 Un james 100 mg 4-28 mg by ity of capsule 00:00: mouth 2 [place] (two) Medical times Branch daily. gabapentin 2022-0 Yes 100mg Take 100 Un james 100 mg 4-28 mg by ity of capsule 00:00: mouth 2 [place] (two) Medical times Branch daily. lidocaine-p 2021-0 Yes APPLY TO Un james rilocaine 2-28 AFFECTED ity of 2.5-2.5 % 00:00: AREA EVERY [place] cream 00 DAY Medical NEEDED Branch eszopiclone 2021-0 Yes 1mg Take 1 mg U nivers 1 mg tablet 2-28 by mouth ity of 00:00: daily. [place] [facility] Branch lidocaine-p 2021-0 Yes APPLY TO Un james rilocaine 2-28 AFFECTED ity of 2.5-2.5 % 00:00: AREA EVERY [place] cream 00 DAY Medical NEEDED Branch eszopiclone 2021-0 Yes 1mg Take 1 mg U nivers 1 mg tablet 2-28 by mouth ity of 00:00: daily. [place] [facility] Branch lidocaine-p 2-0 Yes APPLY TO Un james rilocaine 2-28 AFFECTED ity of 2.5-2.5 % 00:00: AREA EVERY [place] cream 00 DAY Medical NEEDED Branch eszopiclone 2021-0 Yes 1mg Take 1 mg U nivers 1 mg tablet 2-28 by mouth ity of 00:00: daily. [address] Branch methylPREDN 2-0 Yes [id number] 84mg Take 21 Univers ISolone 2-21 tablets by ity of (MEDROL, 00:00: mouth Medardo CARRASCO,) 4 mg 00 SEE-INSTRU Med ical tablets CTIONS. Branch follow package directions methylPREDN 2-0 2- No [id number] 84mg Take 21 Univers ISolone 2-21 11-08 tablets by ity o f (MEDROL, 00:00: 00:00 mouth Medardo CARRASCO,) 4 mg 00 :00 SEE-INSTRU Med ical tablets CTIONS. Branch follow package directions methylPREDN 2020-08 Yes [id number] 84mg Take 21 Univers ISolone 0-19 [id number] tablets by ity of (MEDROL, 00:00: mouth [place] LUNA,) 4 mg 00 SEE-INSTRU Med ical tablets CTIONS. Branch follow package directions methylPREDN 2020-08- No [id number] 84mg Take 21 Univers ISolone 0-19 11-08 [id number] tablets by ity of (MEDROL, 00:00: 00:00 mouth [place] LUNA,) 4 mg 00 :00 SEE-INSTRU Med ical tablets CTIONS. Branch follow package directions methocarbam Yes [id number] 750mg Q.[id number] Take 1 [place] ol 5-17 9103 [id number] tablet Health (Robaxin) 00:00: 3D (750 mg 750 MG 00 total) by tablet mouth 3 (three) times a day if needed for muscle spasms for up to 10 days. methocarbam 2020- No [id number] 750mg Q.[id number] Take 1 [place] ol 5-17 05-28 9103 [id number] tablet Health (Robaxin) 00:00: 04:59 3D (750 mg 750 MG 00 :00 total) by tablet mouth 3 (three) times a day if needed for muscle spasms for up to 10 days. metFORMIN Yes [place] (Glucophage 5-13 Health ) 1000 MG 00:00: tablet 00 metFORMIN Yes [place] (Glucophage 5-13 Health ) 1000 MG 00:00: tablet 00 benzonatate 2019- Yes [id number] 100mg Take 1 Univers 100 mg 6-24 capsule by ity of capsule 00:00: mouth 3 [place] 00 (three) Medical times Branch daily as needed for Cough. chlorphenir 2019-0 Yes [id number] 4mg Take 1 Univers amine 4 mg 6-24 tablet by ity of tablet 00:00: mouth [place] 00 every 6 Medical (six) Branch hours as needed for Allergies or Runny nose. benzonatate 0 2021- No [id number] 100mg Take 1 Univers 100 mg 6-24 11-08 capsule by ity of capsule 00:00: 00:00 mouth 3 [place] 00 :00 (three) Medical times Branch daily as needed for Cough. chlorphenir 2019-0 2- No [id number] 4mg Take 1 Univers amine 4 mg 6-24 -08 tablet by ity of tablet 00:00: 00:00 mouth [place] 00 :00 every 6 Medical (six) Branch hours as needed for Allergies or Runny nose. loratadine Yes 10mg Take 10 mg U nivers 10 mg 7-31 by mouth ity of tablet 00:00: daily. Medical Branch loratadine Yes 10mg Take 10 mg U nivers 10 mg 7-31 by mouth ity of tablet 00:00: daily. Medical Branch loratadine Yes 10mg Take 10 mg U nivers 10 mg 7-31 by mouth ity of tablet 00:00: daily. [place] Medical Branch metFORMIN Yes TAKE 1 Univer s 1,000 mg 7-07 TABLET BY ity of tablet 00:00: MOUTH [place] 00 TWICE A Medical DAY Branch NEEDED WITH MORNING AND EVENING MEAL metFORMIN Yes TAKE 1 Univer s 1,000 mg 7-07 TABLET BY ity of tablet 00:00: MOUTH [place] 00 TWICE A Medical DAY Branch NEEDED WITH MORNING AND EVENING MEAL metFORMIN Yes TAKE 1 Univer s 1,000 mg 7-07 TABLET BY ity of tablet 00:00: MOUTH 00 TWICE A Medical DAY Branch NEEDED WITH MORNING AND EVENING MEAL famotidine Yes 40mg Take 1 Unive rs 40 mg 2-20 tablet by ity of tablet 00:00: mouth [place] 00 daily. Medical Branch famotidine Yes 40mg Take 1 Unive rs 40 mg 2-20 tablet by ity of tablet 00:00: mouth [place] 00 daily. Medical Branch famotidine Yes 40mg Take 1 Unive rs 40 mg 2-20 tablet by ity of tablet 00:00: mouth [place] 00 daily. Medical Branch Meloxicam Meloxicam Yes Ronen not Co mmon [place] defined [facility] Metformin Metformin Yes Ronen not Co mmon HCl HCl [place] defined [facility] Naproxen Naproxen Yes Ronen not Comm on [place] defined [facility] Amoxicillin Amoxicillin Yes Ronen not Common -Pot -Pot [place] defined Spirit Clavulanate Clavulanate - [facility] Hydrochloro Hydrochloro Yes Ronen not Common thiazide thiazide [place] defined [facility] Cyclobenzap Cyclobenzap Yes Ronen not Common rine HCl rine HCl [place] defined [facility] Vitamin D Vitamin D Yes Ronen not Co mmon (Ergocalcif (Ergocalcif [place] defined Spirit satya) satya) [facility] Ferrous Ferrous Yes Ronen not Common Sulfate Sulfate [place] defined [facility] Amitriptyli Amitriptyli Yes Ronen not Common ne HCl ne HCl [place] defined [facility] Methocarbam Methocarbam Yes Ronen not Common ol ol [place] defined [facility] Ondansetron Ondansetron Yes Ronen not Common HCl HCl [place] defined [facility] BusPIRone BusPIRone Yes Ronen not Co mmon HCl HCl [place] defined [facility] Diclofenac Diclofenac Yes Ronen not Common Sodium Sodium [place] defined [facility] Benzonatate Benzonatate Yes Ronen not Common [place] defined [facility] Gabapentin Gabapentin Yes Ronen not Common [place] defined [facility] Ketorolac Ketorolac No Ketorolac Tromethamin [...] Status Comments Sourc e Immunization Name Name Influenza Virus 2021-06-24 Completed Universit y of Vaccine Quad IM 3+ 00:00:00 [facility] Influenza Virus 2021-06-24 Completed Universit y of Vaccine Quad IM 3+ 00:00:00 [facility] SARS-COV-2 COVID-19 2021-04-23 Completed Unive rsity of PFIZER VACCINE 00:00:00 [facility] [place] [facility] SARS-COV-2 COVID-19 2021-04-23 Completed Unive rsity of ALY/J&J VACCINE 00:00:00 [facility] SARS-COV-2 COVID-19 2021-04-23 Completed Unive rsity of PFIZER VACCINE 00:00:00 [facility] [place] [facility] SARS-COV-2 COVID-19 2021-04-23 Completed Unive rsity of ALY/J&J VACCINE 00:00:00 [facility] SARS-COV-2 COVID-19 2021-04-23 Completed Unive rsity of PFIZER VACCINE 00:00:00 [facility] [place] [facility] SARS-COV-2 COVID-19 2021-04-23 Completed Unive rsity of ALY/J&J VACCINE 00:00:00 [facility] SARS-COV-2 COVID-19 2021-04-02 Completed Unive rsity of PFIZER VACCINE 00:00:00 [facility] [place] [facility] SARS-COV-2 COVID-19 2021-04-02 Completed Unive rsity of ALY/J&J VACCINE 00:00:00 [facility] SARS-COV-2 COVID-19 2021-04-02 Completed Unive rsity of PFIZER VACCINE 00:00:00 [facility] [place] [facility] SARS-COV-2 COVID-19 2021-04-02 Completed Unive rsity of ALY/J&J VACCINE 00:00:00 [facility] SARS-COV-2 COVID-19 2021-04-02 Completed Unive rsity of PFIZER VACCINE 00:00:00 [facility] [place] [facility] SARS-COV-2 COVID-19 2021-04-02 Completed Unive rsity of ALY/J&J VACCINE 00:00:00 [facility] Influenza Virus 2020-05-12 Completed Universit y of Vaccine Quad IM 3+ 00:00:00 [facility] Influenza Virus 2020-05-12 Completed Universit y of Vaccine Quad IM 3+ 00:00:00 [facility] Influenza Virus 2020-05-12 Completed Universit y of Vaccine Quad IM 3+ 00:00:00 [facility] LIDOCAINE HCL LIDOCAINE HCL 2020-01-20 Completed Common S pirit - 10MG/ML 10MG/ML 08:45:00 [facility] LIDOCAINE HCL LIDOCAINE HCL 2020-01-20 Completed Common S pirit - 10MG/ML 10MG/ML 08:45:00 [facility] LIDOCAINE HCL LIDOCAINE HCL 2020-01-20 Completed Common S pirit - 10MG/ML 10MG/ML 08:45:00 [facility] LIDOCAINE HCL LIDOCAINE HCL 2020-01-20 Completed Common S pirit - 10MG/ML 10MG/ML 08:45:00 [facility] LIDOCAINE HCL LIDOCAINE HCL 2020-01-20 Completed Common S pirit - 10MG/ML 10MG/ML 08:45:00 [facility] LIDOCAINE HCL LIDOCAINE HCL 2020-01-20 Completed Common S pirit - 10MG/ML 10MG/ML 08:45:00 [facility] Depo-Medrol Depo-Medrol 2020-01-20 Completed Common Spiri t - (Methylprednisolone (Methylprednisolone 08:44:[address] [facility] ) 40mg ) 40mg [facility] Depo-Medrol Depo-Medrol 2020-01-20 Completed Common Spiri t - (Methylprednisolone (Methylprednisolone 08:44:[address] [facility] ) 40mg ) 40mg [facility] Depo-Medrol Depo-Medrol 2020-01-20 Completed Common Spiri t - (Methylprednisolone (Methylprednisolone 08:44:[address] [facility] ) 40mg ) 40mg [facility] Depo-Medrol Depo-Medrol 2020-01-20 Completed Common Spiri t - (Methylprednisolone (Methylprednisolone 08:43:[address] [facility] ) 40mg ) 40mg [facility] Depo-Medrol Depo-Medrol 2020-01-20 Completed Common Spiri t - (Methylprednisolone (Methylprednisolone 08:43:[address] [facility] ) 40mg ) 40mg [facility] Depo-Medrol Depo-Medrol 2020-01-20 Completed Common Spiri t - (Methylprednisolone (Methylprednisolone 08:43:[address] [facility] ) 40mg ) 40mg [facility] Influenza Virus 2019-09-13 Completed Universit y of Vaccine Quad IM 3+ 00:00:00 [facility] Influenza Virus 2019-09-13 Completed Universit y of Vaccine Quad IM 3+ 00:00:00 [facility] Influenza Virus 2019-09-13 Completed Universit y of Vaccine Quad IM 3+ 00:00:00 [facility] Vital Signs Vital Name Observation Time Observation Value Comments Source Systolic blood 2022-06-12 18:06:00 155 mm[Hg] Univer sity of pressure [facility] Diastolic blood 2022-06-12 18:06:00 84 mm[Hg] Unive rsity of pressure [facility] Heart rate 2022-06-12 18:06:00 90 /min Universi ty of [facility] Body temperature 2022-06-12 18:06:00 36 Vika [facility] Respiratory rate 2022-06-12 18:06:00 18 /min [facility] Oxygen saturation in 2022-06-12 18:06:00 94 /min [facility] Arterial blood by [facility] Pulse oximetry Branch Body weight 2022-06-11 09:20:00 113.49 kg Universi ty of [facility] BMI 2022-06-11 09:20:00 47.27 kg/m2 Universi ty of [facility] Body height 2022-06-11 01:52:00 154.9 cm Universi ty of [facility] Systolic blood 2022-04-19 13:32:00 127 mm[Hg] Univer sity of [facility] Diastolic blood 2022-04-19 13:32:00 67 mm[Hg] Unive rsity of [facility] Heart rate 2022-04-19 13:32:00 88 /min Universi ty of [facility] Body height 2022-04-19 13:32:00 154.9 cm Universi ty of [facility] Body weight 2022-04-19 13:32:00 117.028 kg Universi ty of [facility] BMI 2022-04-19 13:32:00 48.75 kg/m2 Universi ty of [facility] Body height 2020-12-18 16:17:00 [facility] 2020-12-18 16:17:00 115[facility]667 [facility] BMI 2020-12-18 16:17:00 46.64 kg/m2 [facility] Body height 2020-12-18 16:17:00 157[facility] weight 2020-12-18 16:17:00 [facility]667 [facility] BMI 2020-12-18 16:17:00 46.64 [facility]/m2 [facility] Procedures Procedure Date / Time Performing Clinician Source Performed POCT GLUCOSE (AUTOMATED) 2022-06-12 18:08:00 Annamaria Barker [facility] BASIC METABOLIC PANEL 2022-06-12 09:27:00 Jimmy Rowland [facility] (NA, K, CL, CO2, Medical Branch GLUCOSE, BUN, CREATININE, CA) CBC WITH DIFF 2022-06-12 09:27:[address] [facility] POCT GLUCOSE (AUTOMATED) 2022-06-12 07:56:00 Annamaria Barker [facility] POCT GLUCOSE (AUTOMATED) 2022-06-12 01:45:00 Annamaria Barker [facility] POCT GLUCOSE (AUTOMATED) 2022-06-11 22:56:00 Annamaria Barker [facility] POCT GLUCOSE (AUTOMATED) 2022-06-11 18:11:00 Annamaria Barker [facility] POCT GLUCOSE (AUTOMATED) 2022-06-11 14:05:00 Annamaria Barker [facility] PHOSPHORUS 2022-06-11 10:40:00 Bhaskar [facility] CREATINE KINASE 2022-06-11 10:40:00 Bhaskar [facility] AMYLASE 2022-06-11 10:40:00 Bhaskar [facility] LIPASE 2022-06-11 10:40:00 Bhaskar [facility] MAGNESIUM 2022-06-11 10:40:00 Bhaskar [facility] COMP. METABOLIC PANEL 2022-06-11 10:40:00 Robbi Muro [facility] ([id number]) [facility] CBC WITH DIFF 2022-06-11 10:40:00 Bhaskar [facility] GLYCOSYLATED HEMOGLOBIN 2022-06-11 10:40:00 Jimmy Rowland [facility] (A1C) [facility] N-TERMINAL PRO-BNP 2022-06-11 10:40:00 Robbi Muro [facility] POCT GLUCOSE (AUTOMATED) 2022-06-11 07:56:[address] [facility] URINE CULTURE 2022-06-11 05:18:00 Bhaskar [facility] PROTHROMBIN TIME / INR 2022-06-11 03:24:00 Bhaskar ender [facility] LACTIC ACID WHOLE BLOOD 2022-06-11 03:18:00 Bhaskar [facility] C-REACTIVE PROTEIN 2022-06-11 03:17:00 Bhaskar [facility] SEDIMENTATION RATE 2022-06-11 03:17:00 Bhaskar [facility] PROCALCITONIN 2022-06-11 03:17:00 Bhaskar [facility] US OVARY TORSION 2022-06-10 22:01:[address] [facility] URINALYSIS 2022-06-10 19:14:[address] [facility] CT ABDOMEN PELVIS WO 2022-06-10 18:36:36 Brodie Clemons [facility] CONTRAST [facility] PHOSPHORUS 2022-06-10 17:54:00 Bhaskar [facility] URIC ACID 2022-06-10 17:54:00 Bhaskar [facility] LIPASE 2022-06-10 17:54:[address] [facility] MAGNESIUM 2022-06-10 17:54:00 Bhaskar [facility] FERRITIN SERUM 2022-06-10 17:54:00 Bhaskar [facility] HEPATIC FUNCTION PANEL 2022-06-10 17:54:00 Brodie Clemons [facility] ([id number]) (ALB,T.PRO,BILI [facility] Branch T,BU/BC,ALT,AST,ALK PHOS) BASIC METABOLIC PANEL 2022-06-10 17:54:00 Brodie Clemons [facility] (NA, K, CL, CO2, Medical Branch GLUCOSE, BUN, CREATININE, CA) IRON PANEL 2022-06-10 17:54:[address] [facility] CBC WITH DIFF 2022-06-10 17:54:[address] [facility] N-TERMINAL PRO-BNP 2022-06-10 17:54:00 Robbi Muro [facility] CONSENT/REFUSAL FOR 2022-06-10 17:38:54 Doctor Unassigned, No Un [facility] DIAGNOSIS AND TREATMENT Name Medical Branch Encounters Start End Encounter Admission Attending Care Care Encounter Source Date/Time Date/Time Type Type Clinicians Facility Department ID 2022-01-04 Outpatient Shira LUTZ, [facility] SOR [id number] Univers 12:25:16 KAYLA [facility] 2021-08-29 Outpatient STLMLC STLMLC Common 12:51:44 [id number] [facility] 2021-08-29 Outpatient STLMLC STLMLC Common 11:59:56 [id number] [facility] 2021-08-29 Outpatient STLMLC STLMLC Common 11:28:05 [id number] [facility] 2021-08-29 Outpatient STLMLC STLMLC Common 11:27:12 [id number] [facility] 2021-06-01 Emergency [facility] [id number] Univers 02:46:06 [facility] 2020-12-18 Outpatient [facility] [id number] [place] 09:37:27 [facility] 2020-12-18 Outpatient [facility] [id number] [place] 09:37:27 [facility] 2020-12-18 Outpatient [facility] [id number] [place] 09:37:27 [facility] 2020-12-15 Outpatient [facility] [id number] [place] 12:03:34 [facility] 2020-12-15 Outpatient [facility] [id number] [place] 12:03:34 [facility] 2020-12-15 Outpatient [facility] [id number] [place] 12:00:05 [facility] 2020-12-09 Outpatient STARR [facility] [id number] [place] 04:06:39 [facility] 2022-06-13 2022-06-13 Transition TOM Cornejo [id number] Univers 00:00:00 00:00:00 of Care Chelo SIDDIQIY [id number] it y of [place] [id number] [facility] 403 Branch 2022-06-10 2022-06-12 Outpatient X MJ [facility] [id number] Univers 11:37:00 16:00:00 ANNAMARIA hills [facility] 2022-06-10 2022-06-[address] [facility] [id number] Univers 11:37:00 16:00:00 Annamaria Barker 350.1.13.10 ity of [id number] [id number] [facility] [address] 2022-04-19 2022-04-19 Outpatient [facility] [id number] Univers 08:55:00 23:59:00 [facility] 2022-04-19 2022-04-19 Outpatient [facility] [id number] Univers 08:55:00 23:59:00 [facility] 2022-04-19 2022-04-19 Office [facility] 1.2.840.114 [id number] Univers 08:45:00 09:00:00 Visit [facility] [id number] it y of [place]AN[place] [id number] Blaze as [place]REGOR?BLEA [id number] Co betsy [address] MEDICAL OFFICE [facility] 2022-02-25 2022-02-25 Outpatient [facility] [id number] Univers 15:15:00 15:15:00 BERNICE dahlia [facility] 2022-02-21 2022-02-21 Outpatient [facility] [id number] Univers 10:45:00 10:45:00 BERNICE [facility] 2022-02-18 2022-02-18 Outpatient Shira WIGGINS [facility] [id number] Univers 10:30:00 10:30:00 CHIZACH ity o f [facility] 2022-01-18 2022-01-18 Outpatient R [facility] [id number] Univers 10:00:00 10:00:00 CLAYTON ity of [facility] 2022-01-17 2022-01-17 [facility] [id number] Univers 00:00:00 00:00:00 Kayla Serra [facility] 350.1.13.10 it y [facility] 4.2.7.2.686 Blaze as GREGOR?BLEA [id number] [address] MEDICAL OFFICE BUILDING 2022-01-14 2022-01-14 Outpatient [facility] S[facility] [id number] Univers 06:59:00 09:15:00 KAYLA ity of [facility] 2022-01-14 2022-01-14 Hospital [facility] 1.2.840.114 [id number] Univers 06:59:00 09:15:00 Encounter Kayla MEEKS 350.1.13.10 ity of [place] [id number] [facility] 071 Branch 2022-01-14 2022-01-14 Surgery [facility] [id number] Univers 08:20:00 09:12:00 Kayla MEEKS 350.1.13.10 i ty of [place] [id number] [facility] [address] 2022-01-14 2022-01-[address] [facility] [id number] Univers 08:25:00 08:39:00 Event Trang Hunt 350.1.13.10 ity [facility] 4.2.7.2.[place] [id number] [facility] [address] 2022-01-14 2022-01-14 Orders Doctor COSTELLO 1.2.840.114 [id number] Univers 00:00:00 00:00:00 Only Unassigned, DIONICIO 350.1.13.10 ity of [place] [facility] 4.2.7.2.686 Blaze as [id number] [facility] 009 Branch 2022-01-11 2022-01-[address] [facility] 1.2.840.114 [id number] Univers 07:39:32 23:59:00 Encounter Kayla MEEKS 350.1.13.10 ity of [facility] 4.2.7.2.686 [facility] [id number] [facility] 807 [address] 2022-01-11 2022-01-11 Outpatient R BOLIVAR [facility] [id number] Univers 07:39:18 23:59:00 KAYLA hills [facility] 2022-01-11 2022-01-11 Media Reconciliation Specialist Luzmaria, Adc Lab Main [facility] [id number] Univers 08:30:00 08:45:00 Visit Kayla Lutz 350.1.13.10 ity of [facility] 4.2.7.2.[place] [phone] Co betsy JEAN-BAPTISTE [address] [facility] 2022-01-11 2022-01-11 Laboratory Only, Adc Test [facility] 1.2.840. [id number] Univers 08:15:00 08:30:00 Only Kayla Lutz 350.1.13.10 ity of [facility] 4.2.7.2.686 [facility] [phone] [facility] 353 Branch 2022-01-11 2022-01-11 Outpatient R BOLIVAR [facility] [id number] Univers 08:15:00 08:15:00 KAYLA hills [facility] 2022-01-11 2022-01-[address] [facility] 1.2.840.114 [id number] Univers 00:00:00 00:00:00 Kayla Serra HEALTH 350.1.13.10 it y of [facility] 4.2.7.2.686 Blaze as [place]REGOR?BLEA [phone] Co dical KNEY [address] MEDICAL OFFICE BUILDING 2022-01-04 2022-01-04 Office [facility] 1.2.840.114 [id number] Univers 11:15:00 11:30:00 Visit Bernice S HEALTH 350.1.13.10 it y of [place] 4.2.7.2.686 Blaze as GREGOR?BLEA [id number] Co betsy PAREDES 198 [facility] OFFICE [facility] 2022-01-04 2022-01-04 Outpatient Shira COLUNGA [facility] [id number] Univers 11:15:00 11:15:00 BERNICE itdahlia [facility] 2022-01-04 2022-01-04 Outpatient Shira COLUNGA [facility] [id number] Univers 11:15:00 11:15:00 [facility] 2022-01-04 2022-01-04 Prep [facility] 1.2.840.114 [id number] Univers 00:00:00 00:00:00 Surgery Kayla Serra Suja Juice 350.1.13.10 it y of [place] 4.2.7.2.686 Blaze as GREGOR?BLEA [phone] Co betsy PAREDES 198 [facility] 2021-12-20 2021-12-20 Outpatient R BOLIVAR [facility] [id number] Univers 10:00:00 10:00:00 [facility] 2021-12-11 2021-12-11 Telephone [facility] 1.2.840.114 [id number] Univers 00:00:00 00:00:00 Kayla Serra HEALTH 350.1.13.10 it y of [place] 4.2.7.2.686 Blaze as GREGOR?BLEA [phone] Co betsy PAREDES 198 [facility] 2021-12-07 2021-12-07 Outpatient Shira COLUNGA [facility] [id number] Univers 10:23:58 23:59:00 BERNICE ity [facility] 2021-12-07 2021-12-07 [facility] 1.2.840.114 [id number] Univers 10:23:58 23:59:00 Encounter Bernice FUNETESTON 350.1.13.10 ity of [place].2.686 [place] [id number] [facility] [address] 2021-11-30 2021-11-30 Outpatient Shira COLUNGA [facility] [id number] Univers 10:45:00 11:13:44 BERNICE ity [facility] 2021-11-30 2021-11-[address] [facility] 1.2.840.114 [id number] Univers 10:45:00 11:13:44 Visit Bernice Singer HEALTH 350.1.13.10 it y of [place] 4.2.7.2.686 Blaze as GREGOR?BLEA [id number] Co betsy PAREDES [address] [place] [address] OFFICE [facility] 2021-11-30 2021-11-30 Outpatient R KEANU [facility] [id number] Univers 10:45:00 11:13:44 BERNICE ity [facility] 2021-11-28 2021-11-28 Telephone [facility] 1.2.840.114 [id number] Univers 00:00:00 00:00:00 Kayla HEALTH 350.1.13.10 it y of [place] 4.2.7.2.686 Blaze as GREGOR?BLEA [phone] Co betsy PAREDES [address] [place] [address] OFFICE [facility] 2021-11-28 2021-11-28 Orders Doctor TRANG 1.2.840.114 [id number] Univers 00:00:00 00:00:00 Only Unassigned, DIONICIO 350.1.13.10 ity of [place] [facility] 4.2.7.2.686 Blaze as [id number] [address] 2021-11-27 2021-11-[address] [facility] 1.2.840.114 [id number] Univers 00:00:00 00:00:00 Kayla HEALTH 350.1.13.10 it y of [place] 4.2.7.2.686 Blaze as GREGOR?BLEA [phone] Co betsy PAREDES [address] [place] [address] OFFICE [facility] 2021-11-22 2021-11-22 Orders Doctor TRANG 1.2.840.114 [id number] Univers 00:00:00 00:00:00 Only Unassigned, DIONICIO 350.1.13.10 ity of [place] [facility] 4.2.7.2.686 Blaze as [id number] [address] 2021-11-21 2021-11-21 Telephone [facility] 1.2.840.114 [id number] Univers 00:00:00 00:00:00 Kayla L HEALTH 350.1.13.10 it y of [place] 4.2.7.2.686 Blaze as GREGOR?BLEA [phone] Co betsy PAREDES 198 [facility] OFFICE [facility] 2021-11-21 2021-11-21 Telephone [facility] 1.2.840.114 [id number] Univers 00:00:00 00:00:00 Kayla L HEALTH 350.1.13.10 it y of [place] 4.2.7.2.686 Blaze as GREGOR?BLEA [phone] Co betsy PAREDES 198 [facility] OFFICE [facility] 2021-11-19 2021-11-19 Telephone [facility] [id number] Univers 00:00:00 00:00:00 Bernice S HEALTH 350.1.13.10 it y of [place] 4.2.7.2.686 Blaze as GREGOR?BLEA [id number] Co betsy PAREDES 198 [facility] OFFICE [facility] 2021-11-19 2021-11-19 Telephone [facility] 1.2.840.114 [id number] Univers 00:00:00 00:00:00 Kayla L HEALTH 350.1.13.10 it y of [place] 4.2.7.2.686 Blaze as GREGOR?BLEA [id number] Co betsy PAREDES 198 [facility] OFFICE [facility] 2021-11-12 2021-11-12 Telephone [facility] 1.2.840.114 [id number] Univers 00:00:00 00:00:00 Kayla L HEALTH 350.1.13.10 it y of [place] 4.2.7.2.686 Blaze as GREGOR?BLEA [phone] Co betsy PAREDES 198 [facility] OFFICE [facility] 2021-10-29 2021-10-29 Telephone [facility] 1.2.840.114 [id number] Univers 00:00:00 00:00:00 Kayla L HEALTH 350.1.13.10 it y of [place] 4.2.7.2.686 Blaze as GREGOR?BLEA [phone] Me betsy PAREDES 198 [facility] OFFICE [facility] 2021-10-26 2021-10-26 Telephone [facility] [place] 1.2.840.114 [id number] Univers 00:00:00 00:00:00 Kayla L HEALTH 350.1.13.10 it y of [place] 4.2.7.2.686 Blaze as GREGOR?BLEA [phone] Co betsy PAREDES 198 [facility] OFFICE [facility] 2021-10-24 2021-10-24 [facility]patient [facility] [id number] Univers 09:30:00 10:20:40 [facility] 2021-10-24 [facility] 1.2.840.114 [id number] Univers 09:30:00 10:20:40 Visit Bernice S HEALTH 350.1.13.10 it y of [place] 4.2.7.2.686 Blaze as GREGOR?BLEA [phone] Co betsy PAREDES [address] [place] [address] OFFICE [facility] 2021-10-24 2021-10-24 Outpatient [facility] [id number] Univers 09:30:00 10:20:40 BERNICE [facility] 2021-10-24 2021-10-24 Office [facility] 1.2.840.114 [id number] Univers 09:30:00 10:20:40 Visit Bernice S HEALTH 350.1.13.10 it y of [place] 4.2.7.2.686 Blaze as GREGOR?BLEA [phone] Co betsy PAREDES [address] [place] [address] OFFICE [facility] 2021-10-19 2021-10-19 Telephone [facility] [id number] Univers 00:00:00 00:00:00 Bernice S HEALTH 350.1.13.10 it y of [place] 4.2.7.2.686 Blaze as GREGOR?BLEA [phone] Co betsy PAREDES 198 [facility] OFFICE [facility] 2021-10-18 2021-10-18 Telephone [facility] 1.2.162.284 [id number] Univers 00:00:00 00:00:00 Bernice S HEALTH 350.1.13.10 it y of [place] 4.2.7.2.686 Blaze as GREGOR?BLEA [phone] Co betsy FERNANDEZ 198 [facility] OFFICE [facility] 2021-10-12 2021-10-12 Outpatient R WILLY RENÉE [facility] [id number] Univers 14:00:00 15:00:16 RENÉE AGUILERA [facility] 2021-10-02 2021-10-[address] [facility] 1.2.286.350 [id number] Univers 00:00:00 00:00:00 [facility] 350.1.13.10 it y of [place] 4.2.7.2.686 Blaze as GREGOR?BLEA [phone] Co betsy [address] OFFICE [facility] 2021-10-02 2021-10-02 Orders Doctor COSTELLO 1.2.840.114 [id number] Univers 00:00:00 00:00:00 Only Unassigned, DIONICIO 350.1.13.10 ity of [place] [facility] 4.2.7.2.686 Blaze as [phone] [address] 2021-09-27 2021-09-27 Orders Doctor TRANG 1.2.840.114 [id number] Univers 00:00:00 00:00:00 Only Unassigned, DIONICIO 350.1.13.10 ity of [place] [facility] 4.2.7.2.686 Blaze as [phone] [address] 2021-09-24 2021-09-24 Outpatient Shira COLUNGA [facility] [id number] Univers 15:50:00 23:59:00 [facility] 2021-07-02 2021-07-02 (TEL) STLMLC STLMLC [id number] Co mmon 00:00:00 00:00:00 [facility] 2021-06-27 2021-06-27 Outpatient Shira COLUNGA [facility] [id number] Univers 14:15:00 14:15:00 [facility] 2021-06-27 2021-06-27 Outpatient Shira COLUNGA [facility] [id number] Univers 14:15:00 14:15:00 [facility] 2021-06-27 2021-06-27 Office [facility] 1.2.840.114 [id number] Univers 13:39:57 13:54:57 Visit Bernice S HEALTH 350.1.13.10 it y of [place] 4.2.7.2.686 Blaze as GREGOR?BLEA [phone] Co betsy PAREDES 198 [facility] OFFICE [facility] 2021-06-26 2021-06-26 Outpatient [facility] [id number] Univers 15:45:00 15:45:00 BERNICE [facility] 2021-06-26 2021-06-26 Outpatient [facility] [id number] Univers 15:45:00 15:45:00 [facility] 2021-06-25 2021-06-25 Telephone [facility] [id number] Univers 00:00:00 00:00:00 Bernice S [place] 350.1.13.10 i ty of [place]2.7.2.[place] [phone] Co betsy JEAN-BAPTISTE 198 [facility] 2021-05-23 2021-05-23 Telephone [facility] 1.2.614.518 [id number] Univers 00:00:00 00:00:00 Bernice S Health 350.1.13.10 it y of [place] 4.2.7.2.686 Blaze as Gregor?Blea [phone] Co dicbernard paredes 198 [facility] 2021-05-22 2021-05-22 [facility] 1.2.840.114 [id number] Univers 13:00:00 23:59:00 Encounter Bernice S Health 350.1.13.10 ity of [place] 4.2.7.2.686 Blaze as Gregor?Blea [phone] Co dical reggie 809 [facility] Office [facility] 2021-05-22 2021-05-22 Outpatient [facility] [id number] Univers 16:15:00 14:56:21 BERNICE [facility] 2021-05-22 2021-05-22 Outpatient [facility] [id number] Univers 16:15:00 14:56:21 BERNICE dahlia [facility] 2021-05-22 2021-05-22 Office [facility] 1.2.840.114 [id number] Univers 12:47:56 14:56:21 Visit Bernice [facility] 350.1.13.10 it y of [place] 4.2.7.2.686 Blaze as Gregor?Blea [phone] Co dical [facility] 198 [facility] Office [facility] 2021-05-22 2021-05-22 Orders Doctor TRANG 1.2.840.114 [id number] Univers 00:00:00 00:00:00 Only Unassigned, DIONICIO 350.1.13.10 ity of [place] [facility] 4.2.7.2.686 Blaze as [phone] [address] 2021-04-23 2021-04-23 Outpatient Shira [facility] [id number] Univers 10:10:00 10:10:00 ANDREW hills [facility] 2021-04-23 2021-04-23 Imm/Inj Nurse, Adc Pob Immunization [facility] 1.2.840.114 [id number] Univers 10:00:06 10:00:17 Visit Andrew Resendiz 350.1.13 .10 ity [facility] [place]2.7.2.[place] [phone] Co dical [facility] 421 [facility] 2021-04-02 2021-04-02 Outpatient Shira RESENDIZ [facility] [id number] Univers 14:40:00 14:40:00 ANDREW hills [facility] 2021-04-02 2021-04-02 Imm/Inj Nurse, Adc Pob Immunization [facility] 1.2.840.114 [id number] Univers 13:41:25 13:41:44 Visit Andrew Resendiz 350.1.13 .10 ity [facility] 4.2.7.2.[place] [phone] Co dical nal 421 [facility] 2021-01-26 2021-01-26 RefANISHA Mccormack 1.2.840.114 [id number] [place] 00:00:00 00:00:00 Lacey DARDENJOSE 350.1.13.58 [facility] Lillie MULTI 9.2.7.2.686 SPECIALTY [phone] CLINIC 1 2021-01-26 2021-01-26 ANISHA Granados 1.2.840.114 [id number] 00:00:00 00:00:00 Lacey DARDENJOSE 350.1.13.58 Lillie TORRSE 9.2.7.2.686 SPECIALTY [phone] CLINIC 1 2020-12-18 2020-12-18 Office Timbo [facility] 1.2.840.114 [id number] [place] 09:22:21 12:11:17 Visit ROGERS HaywardBRITTANY 350.1.13.58 H [facility] 9.2.7.2.686 [place] 2 [phone] [id number] 2020-12-18 2020-12-18 Office Timbo [facility] 1.2.840.114 [id number] 09:22:21 12:11:17 Visit ROGERS HaywardBRITTANY 350.1.13.58 [facility] 9.2.7.2.686 [place] 2 [id number] [id number] 2020-09-06 2020-09-06 (TEL) STLMLC STLMLC [id number] Co mmon 00:00:00 00:00:00 [facility] 2020-07-20 2020-07-20 (TEL) STLMLC STLMLC [id number] Co mmon 00:00:00 00:00:00 [facility] 2020-07-12 2020-07-12 (TEL) STLMLC STLMLC [id number] Co mmon 00:00:00 00:00:00 [facility] 2020-06-21 2020-06-21 Outpatient STLMLC STLMLC [id number] Common 00:00:00 00:00:00 [facility] 2020-06-12 2020-06-12 Outpatient STLMLC STLMLC [id number] Common 00:00:00 00:00:00 [facility] 2020-06-06 2020-06-06 Outpatient STLMLC STLMLC [id number] Common 00:00:00 00:00:00 [facility] 2020-01-26 2020-01-26 Emergency , [facility] [id number] [id number] [facility] 20:05:19 21:04:00 Calin Meeks 350.1.13.10 i ty of [place] 4.2.7.2.686 [place] [facility] [phone] [address] 2020-01-26 2020-01-26 Emergency , [facility] [id number] 20:05:19 21:04:00 Calin Meeks 350.1.13.10 [place] 4.2.7.2.686 [place] [phone] [facility] 2020-01-26 2020-01-26 Orders Doctor COSTELLO 1.2.840.114 [id number] Univers 00:00:00 00:00:00 Only Unassigned, DIONICIO 350.1.13.10 ity of [place] [facility] 4.2.7.2.686 Blaze as [phone] [address] 2020-01-26 2020-01-26 Orders Doctor COSTELLO 1.2.840.114 [id number] 00:00:00 00:00:00 Only Unassigned, DIONICIO 350.1.13.10 [place] [facility] [phone] 009 2020-01-20 2020-01-20 [id number] Common 08:00:00 08:00:00 [facility] 2020-01-20 2020-01-20 Orders Doctor TRANG Matthews.2.840.114 [id number] Univers 00:00:00 00:00:00 Only Unassigned, DIONICIO 350.1.13.10 ity of [place] [facility] 4.2.7.2.686 Blaze as [phone] [address] 2020-01-20 2020-01-20 Orders Doctor TRANG Bolanos2.840.114 [id number] 00:00:00 00:00:00 Only Unassigned, DIONICIO 350.1.13.10 [place] [facility] 4.2.7.2.686 [id number] 009 Results Test Description Test Time Test Comments Results Result Comments Source POCT GLUCOSE (AUTOMATED) 2022-06-12 18:17:12 Test Item Value Reference Range Interpretation Comme nts POCT GLU (test code = 0434661147) 161 mg/dL 70-110 H Lab Interpretation (test code = 18792-0) Abnormal [facility] GLUCOSE (AUTOMATED)2022-06-12 08:00:25 Test Item Value Reference Range Interpretation Comments POCT GLU (test code = 7257410867) 122 mg/dL 70-110 H Lab Interpretation (test code = Abnormal 80008-0) [facility] GLUCOSE (AUTOMATED)2022-06-12 01:58:54 Test Item Value Reference Range Interpretation Comments POCT GLU (test code = 3007455453) 124 mg/dL 70-110 H Lab Interpretation (test code = Abnormal 06398-2) [facility] GLUCOSE (AUTOMATED)2022-06-11 22:59:46 Test Item Value Reference Range Interpretation Comments POCT GLU (test code = 6163823987) 115 mg/dL 70-110 H Lab Interpretation (test code = Abnormal 61145-3) [facility] GLUCOSE (AUTOMATED)2022-06-11 22:59:46 Test Item Value Reference Range Interpretation Comments POCT GLU (test code = 5903036187) 104 mg/dL 70-110 Lab Interpretation (test code = Normal 85650-6) [facility] GLUCOSE (AUTOMATED)2022-06-11 14:11:49 Test Item Value Reference Range Interpretation Comments POCT GLU (test code = 8413772372) 91 mg/dL 70-110 Lab Interpretation (test code = Normal 86578-2) [id number] 09:07:50 Test Item Value Reference Range Interpretation Comments IRON (test code = 7406470934) 39 ug/dL 50-160 L TIBC (test code = 7578500978) 346 ug/dL 250-410 % FE SAT (test code = 9039997641) 11 % 20-50 L Lab Interpretation (test code = Abnormal 79455-2) [facility] [id number] 08:27:06 Test Item Value Reference Range Interpretation Comments FERRITIN (test code = 7.5 ng/mL 11.0-264.0 L 4615173547) SRIRAM (test code = SRIRAM) Biotin has been reported to cause a negative bias, interpret results relative to patient's use of biotin. Lab Interpretation (test Abnormal code = 93711-3) [id number] 08:01:40 Test Item Value Reference Range Interpretation Comments NT-proBNP (test code 39 pg/mL See_Comment [Autom ated = 8065240658) message] The system which generated this result transmitted reference range : <=125. The reference range was not used to interpret this result as normal/abnormal . SRIRAM (test code = SRIRAM) Biotin has been reported to cause a negative bias, interpret results relative to patient's use of biotin. Lab Interpretation Normal (test code = 00893-2) [facility]2022-06-11 07:59:15 Test Item Value Reference Range Interpretation Comments POCT GLU (test code = 4484310518) 141 mg/dL 70-110 H Lab Interpretation (test code = Abnormal 68671-3) [facility]2022-[facility]-08 07:59:15 Test Item Value Reference Range Interpretation Comments MAGNESIUM (test code = 1399364776) 1.6 mg/dL 1.7-2.4 L Lab Interpretation (test code = Abnormal 17344-8) [facility]22-[facility]-08 07:59:10 Test Item Value Reference Range Interpretation Comments PHOSPHORUS (test code = 1804479391) 2.6 mg/dL 2.5-5.0 Lab Interpretation (test code = Normal 06688-9) [facility] [id number] 07:59:05 Test Item Value Reference Range Interpretation Comments URIC ACID (test code = 1019640676) 3.0 mg/dL 2.9-6.0 Lab Interpretation (test code = Normal 06270-2) [facility]OL[facility] (NA, K, CL, CO2, GLUCOSE, BUN, CREATININE, CA)2022-06-10 18:34:39 Test Item Value Reference Range Interpretation Comments NA (test code = 139 mmol/L 135-145 4495459526) K (test code = 4.2 mmol/L 3.5-5.0 8079983693) CL (test code = 105 mmol/L 98-108 0652936768) CO2 TOTAL (test code 28 mmol/L 23-31 = 1561018577) AGAP (test code = 2-16 2326642509) BUN (test code = 15 mg/dL 7-23 9783676038) GLUCOSE (test code = 106 mg/dL 70-110 7425662680) CREATININE (test code 0.75 mg/dL 0.50-1.04 = 0784645394) CALCIUM (test code = 9.0 mg/dL 8.6-10.6 2855576248) eGFR (test code = mL/min/1.73m2 8649284423) SRIRAM (test code = SRIRAM) Association of Glomerular Filtration Rate (GFR) and Staging of Kidney Disease* + + +- +| GFR (mL/min/1.73 m2) ?| With Kidney Damage ?| ?Without Kidney Damage+ ------+ ----+ ------+| ?>90 ?| ?Stage one ?| ? Normal ?+ -+ + -+| ?60-89 ?| ?Stage two ?| ? Decreased GFR ? + + +- +| ?30-59 ?| ?Stage three ?| ? Stage three ? + + +- +| ?15-29 ?| ?Stage four ? | ? Stage four ?+ -+ + -+| ?<15 (or dialysis) ? ?| ?Stage five ? | ? Stage five ?+ -+ + -+ *Each stage assumes the associated GFR level has been in effect for at least three months. ?Stages 1 to 5, with or without kidney disease, indicate chronic kidney disease. Notes: Determination of stages one and two (with eGFR >59mL/min/1.73 m2) requires estimation of kidney damage for at least three months as defined by structural or functional abnormalities of the kidney, manifested by either:Pathological abnormalities or Markers of kidney damage (including abnormalities in the composition of the blood or urine or abnormalities in imaging tests). [facility] (73682) (ALB,T.PRO,BILI T,BU/BC,ALT,AST,ALK PHOS)2022-06-10 18:34:39 Test Item Value Reference Range Interpretation Comments TOTAL BILI (test code = 1245681789) 0.4 mg/dL 0.1-1.1 BILI UNCON (test code = 3369817014) 0.2 mg/dL 0.1-1.1 BILI CONJ (test code = 6255424438) 0.0 mg/dL 0.0-0.3 T PROTEIN (test code = 4102421557) 6.9 g/dL 6.3-8.2 ALBUMIN (test code = 0144382522) 4.0 g/dL 3.5-5.0 ALK PHOS (test code = 6079171923) 139 U/L 34-122 H ALTv (test code = 1742-6) 23 U/L 5-35 AST(SGOT) (test code = 1451006717) 21 U/L 13-40 Lab Interpretation (test code = Abnormal 44043-9) [facility] 18:34:39 Test Item Value Reference Range Interpretation Comments LIPASE (test code = 2839078288) 108 U/L 0-220 Lab Interpretation (test code = Normal 83224-8) [facility] WITH [id number] 18:27:20 Test Item Value Reference Range Interpretation Comments WBC (test code = See_Comment [Automated message] 2190-2) The system [employer] generated this result transmitted ref erence range: 4.30 - 1 1.10 10*3/?L. The re ference range was not u sed to interpret this result as normal/abnor mal. RBC (test code = See_Comment [Automated message] 349-8) The system [employer] generated this result transmitted ref erence range: 3.93 - 5 .25 10*6/?L. The re ference range was not u sed to interpret this result as normal/abnor mal. HGB (test code = 11.7 g/dL 11.6-15.0 718-7) HCT (test code = 36.8 % 35.7-45.2 4544-3) MCV (test code = 87.6 fL 80.6-95.5 787-2) MCH (test code = 27.9 pg 25.9-32.8 785-6) MCHC (test code = 31.8 g/dL 31.6-35.1 786-4) RDW-SD (test code 48.3 fL 39.0-49.9 = 42131-7) RDW-CV (test code 15.4 % 12.0-15.5 = 788-0) PLT (test code = See_Comment [Automated message] 777-3) The system whic h generated this result transmitted ref erence range: 166 - 35 8 10*3/?L. The re ference range was not u sed to interpret this result as normal/abnor mal. MPV (test code = 10.4 fL 9.5-12.9 43570-9) NRBC/100 WBC (test See_Comment [Automat ed message] code = 2331395162) The syste m which generated this result transmitted ref erence range: 0.0 - 10 .0 /100 WBCs. The refer ence range was not u sed to interpret this result as normal/abnor mal. NRBC x10^3 (test See_Comment [Automated message] code = 5307249951) The syste m which generated this result transmitted ref erence range: 10*3/?L. The reference range was not used to interpr et this result as normal/abnormal . GRAN MAT (NEUT) % 62.1 % (test code = 770-8) IMM GRAN % (test 0.50 % code = 9591054628) LYMPH % (test code 29.1 % = 736-9) MONO % (test code 7.3 % = 5905-5) EOS % (test code = 0.6 % 713-8) BASO % (test code 0.4 % = 706-2) GRAN MAT 5.30 10*3/uL 1.88-7.09 x10^3(ANC) (test code = 3028419852) IMM GRAN x10^3 0.04 10*3/uL 0.00-0.06 (test code = 6090298755) LYMPH x10^3 (test 2.48 10*3/uL 1.32-3.29 code = 731-0) MONO x10^3 (test 0.62 10*3/uL 0.33-0.92 code = 742-7) EOS x10^3 (test 0.05 10*3/uL 0.03-0.39 code = 711-2) BASO x10^3 (test 0.03 10*3/uL 0.01-0.07 code = 704-7) [facility]"
--- NOTE | 2022-07-10 15:08 | RAD REPORT ---
EXAM DESCRIPTION: CT - Stone Protocol - 07/10/2022 2:46 pm CLINICAL HISTORY: RLQ pain, flank pain COMPARISON: Stone Protocol dated 05/14/2020 TECHNIQUE: Axial 3 mm thick images were obtained without oral or IV contrast. The [id number] span s the entirety of the system including uppermost abdomen and lung bases. All CT scans are performed using dose optimization technique as appropriate and may include automated exposure control or mA/KV adjustment according to patient size. FINDINGS: No hydronephrosis is present and no obstructing ureteral calculi. Patient has a 3-4 mm danielle yx calcification mid right kidney unchanged from the 2020 study. No suspicious renal masses. Isodense masses and pyelonephritis are not excluded on a stone protocol CT scan. No significant adrenal findi ng. Urinary bladder is fully contracted limiting evaluation. No bladder calculi seen. Uterus and ovar ies show no suspicious findings. Imaged portions of the liver, spleen and pancreas show no suspicious findings on non-contrast imaging . Cholecystectomy clips are present. No abnormal biliary tree dilatation. Liver attenuation is border line for fatty infiltration. Moderate stool volume is seen in the colon. No acute GI process seen. The appendix is well-visualized and normal. A few small scattered mesenteric subcentimeter lymph nodes are seen. No mass or bulky lymphadenopathy. Patient has a 4 centimeter diameter fat only supraumbilical midline ventral hernia. Neck is 2 cm. This does not appear significantly different from 2020 imaging. No duane e air, free fluid or inflammatory stranding. No significant bony abnormality. IMPRESSION: No hydronephrosis, obstructing calculus or acute finding. A 3-4 mm right-side calyx c alcification has not change from 2020 exam. Isodense masses and pyelonephritis are not excluded on stone protocol technique. Nonacute findings are detailed in the body of the report.
[2022-07-10] MEDS ORDERED: MORPHINE 4 MG/ML SYR ONE ×2 (15:32→17:28)
[2022-07-10] MEDS ORDERED: ONDANSETRON 4 MG/2 ML VIAL ONE (15:32)
[2022-07-10 15:35] LABS: Absolute Lymphocytes (CBC) 1.7 K/uL (0.7-4.9); MCV 87.7 fL (80-100); MPV 8.3 fL (7.6-11.3); RBC Red Blood Cell Count 4.33 M/uL (3.86-4.86)
[2022-07-10] MEDS ORDERED: NA CHLORIDE 0.9% 1,000 ML ONE (15:39)
[2022-07-10 15:43] LABS: Albumin 3.4 g/dL (3.4-5.0); Bilirubin Total 0.4 mg/dL (0.2-1.0); Magnesium 1.9 mg/dL (1.8-2.4); Potassium 3.6 mmol/L (3.5-5.1); Protein, Total 7.8 g/dL (6.4-8.2)
[2022-07-10 17:13] LABS: Urine Blood Trace-intact (Negative); Urine Glucose 2+ (Negative); Urine Protein 1+ (Negative); Urine Specific Gravity 1.025 (1.005-1.030)
--- NOTE | 2022-07-10 18:03 | EDPHYS ---
Physician Documentation [facility] Name: Jazmín Perez Age: 52 yrs Sex: Female : 1970 Arrival Date: 07/10/2022 Time: 13:42 Bed 12 Private MD: Dhara Linda ED Physician Krzysztof Em HPI: 07/10 14:27 This 52 yrs old Female presents to ER via Ambulatory with complaints of sb4 Abdominal Pain. 14:27 The patient presents with abdominal pain in the lower abdomen, that is diffuse. Onset: sb4 The symptoms/episode began/occurred just prior to arrival. Associated signs and symptoms: Pertinent positives: nausea and vomiting, Pertinent negatives: dysuria, fever, hematuria. Severity of pain: in the emergency department the pain is a 10 / 10. The patient has experienced a previous episode, approximately 3 weeks ago, but today's symptoms are worse. The patient has been recently seen by a physician: in the hospital, in [facility]. Patient reports that she was seen at [facility] 3 weeks ago where they found a 3 mm kidney stone. She was admitted to the hospital for 2 days for pain control. She states the pain was under control but is returned today and is now a 10 out of 10. She denies dysuria, flank pain, or hematuria.. Historical: - Allergies: 14:17 No Known Allergies; vg1 - Home Meds: 14:17 Ozempic [Active]; vg1 - PMHx: 14:17 allergies; Diabetes - NIDDM; vg1 - Immunization history:: Client reports receiving the 2nd dose of the Covid vaccine. - Social history:: Smoking status: Patient denies any tobacco usage or history of. ROS: 14:29 Constitutional: Negative for fever, chills, and weight loss, Eyes: Negative for injury, sb4 pain, redness, and discharge, Cardiovascular: Negative for chest pain, palpitations, and edema, Respiratory: Negative for shortness of breath, cough, wheezing, and pleuritic chest pain, MS/Extremity: Negative for injury and deformity, Skin: Negative for injury, rash, and discoloration. 14:29 Abdomen/GI: Positive for abdominal pain, nausea. 14:29 : Negative for urinary symptoms, hematuria, flank pain, burning with urination, difficulty urinating. Exam: 14:30 Constitutional: This is a well developed, well nourished patient who is awake, alert, sb4 and in no acute distress. Head/Face: Normocephalic, atraumatic. ENT: Mucous membranes moist. Chest/axilla: Normal chest wall appearance and motion. Nontender with no deformity. No lesions are appreciated. Cardiovascular: Regular rate and rhythm with a normal S1 and S2. Respiratory: Lungs have equal breath sounds bilaterally, clear to auscultation and percussion. No rales, rhonchi or wheezes noted. No increased work of breathing, no retractions or nasal flaring. 14:30 Abdomen/GI: Inspection: abdomen appears normal, Bowel sounds: normal, Palpation: mild abdominal tenderness, in the suprapubic area and right lower quadrant. Vital Signs: 14:14 BP 130 / 83; Pulse 106; Resp 18; Temp 98.6; Pulse Ox 97% ; Weight 111.13 kg; Height 5 vg1 ft. 2 in. (157.48 cm); Pain 10/10; 16:27 BP 126 / 74; Pulse 96; Resp 18; Pulse Ox 98% on R/A; ld1 14:14 Body Mass Index 44.81 (111.13 kg, 157.48 cm) vg1 MDM: 14:23 Patient medically screened. sb4 18:02 Data reviewed: vital signs, nurses notes, lab test result(s), radiologic studies, and sb4 as a result, I will discharge patient. 07/10 14:25 Order name: CBC with Diff; Complete Time: 15:37 sb4 07/10 14:25 Order name: CMP; Complete Time: 15:44 sb4 07/10 14:25 Order name: CT Stone Protocol; Complete Time: 15:11 sb4 07/10 14:25 Order name: Magnesium; Complete Time: 15:44 sb4 07/10 17:13 Order name: Urine Dipstick-Ancillary; Complete Time: 17:14 EDMS 07/10 14:25 Order name: Urine Dipstick-Ancillary (obtain specimen); Complete Time: 17:13 sb4 Administered Medications: 14:28 Drug: TORadol (ketorolac) 30 mg Route: IM; Site: right gluteus; vg1 17:46 Follow up: Response: No adverse reaction ld1 15:36 Drug: morphine 4 mg Route: IVP; Infused Over: 4 mins; Site: right antecubital; ld1 17:46 Follow up: Response: No adverse reaction ld1 15:36 Drug: Zofran (Ondansetron) 4 mg Route: IVP; Site: right antecubital; ld1 17:46 Follow up: Response: No adverse reaction ld1 16:04 Drug: NS 0.9% 1000 ml Route: IV; Rate: 1 bolus; Site: left forearm; ld1 17:46 Follow up: Response: No adverse reaction; IV Status: Completed infusion; IV Intake: ld1 1000ml 17:33 Drug: morphine 4 mg Route: IVP; Infused Over: 4 mins; Site: left forearm; ld1 17:46 Follow up: Response: No adverse reaction ld1 Disposition: 18:49 Co-signature as Attending Physician, Krzysztof Em MD. Chart complete. rn Disposition Summary: 07/10/22 18:03 Discharge Ordered Location: Home sb4 Problem: new sb4 Symptoms: have improved sb4 Condition: Stable sb4 Diagnosis - Lower abdominal pain, unspecified sb4 - Calculus of kidney sb4 Followup: sb4 - With: Dhara Linad - When: 1 - 2 days - Reason: Recheck today's complaints, Continuance of care, Re-evaluation by your physician Discharge Instructions: - Discharge Summary Sheet sb4 - Kidney Stones, [id number] sb4 Forms: - Medication Reconciliation Form sb4 - Thank You Letter sb4 - Antibiotic Education sb4 - Prescription Opioid Use sb4 Prescriptions: - Cyclobenzaprine 5 mg Oral Tablet - take 1 tablet by ORAL route 3 times per day As needed; 15 tablet; Refills: 0, sb4 Product Selection Permitted Signatures: Dispatcher [employer] EDKrzysztof Branch MD MD rn Garcia, Victoria RN RN vg1 Celia Curran RN RN ld1 Bethany Baca PA-C PA-C sb4 Corrections: (The following items were deleted from the chart) 14:31 14:29 : Positive for Negative for urinary symptoms, hematuria, flank pain, burning sb4 with urination, difficulty urinating, sb4
--- NOTE | 2022-07-10 18:03 | ER ---
Nurse's Notes [facility] Name: Jazmín Perez Age: 52 yrs Sex: Female : 1970 Arrival Date: 07/10/2022 Time: 13:42 Bed 12 Private MD: Dhara Linda Diagnosis: Lower abdominal pain, unspecified;Calculus of kidney Presentation: 07/10 14:14 Chief complaint: Patient states: Lower ABD pain that began about an hour ago and CP; vg1 also stated about 3 [address] [facility] for same thing and was dx with a 3 mm kidney stone. Also states nausea. Coronavirus screen: Vaccine status: Patient reports receiving the 2nd dose of the covid vaccine. Client denies travel out of the [place] in the last 14 days. Ebola Screen: Patient negative for fever greater than or equal to 101.5 degrees Fahrenheit, and additional compatible Ebola Virus Disease symptoms. Initial Sepsis Screen: Does the patient meet any 2 criteria? HR > 90 bpm. Does the patient have a suspected source of infection? No. Patient's initial sepsis screen is negative. Risk Assessment: Do you want to hurt yourself or someone else? Patient reports no desire to harm self or others. Onset of symptoms was July 10, 2022. 14:14 Method Of Arrival: Ambulatory vg1 14:14 Acuity: LOU 3 vg1 Triage Assessment: 14:17 General: Appears uncomfortable, Behavior is cooperative, crying. Pain: Complains of vg1 pain in posterior aspect of right lateral abdomen, right lower quadrant and left lower quadrant Pain currently is 10 out of 10 on a pain scale. GI: Abdomen is non-distended, Reports nausea. : Denies burning with urination. Historical: - Allergies: 14:17 No Known Allergies; vg1 - Home Meds: 14:17 Ozempic [Active]; vg1 - PMHx: 14:17 allergies; Diabetes - NIDDM; vg1 - Immunization history:: Client reports receiving the 2nd dose of the Covid vaccine. - Social history:: Smoking status: Patient denies any tobacco usage or history of. Screenin:20 Abuse screen: Denies threats or abuse. Denies injuries from another. Nutritional ld1 screening: No deficits noted. Tuberculosis screening: No symptoms or risk factors identified. Fall Risk None identified. Assessment: 14:23 Reassessment: received VO from Keven MCCONNELL to administer Ketorolac 30 mg IM x1. vg1 18:20 GI: Bowel sounds present X 4 quads. ld1 Vital Signs: 14:14 BP 130 / 83; Pulse 106; Resp 18; Temp 98.6; Pulse Ox 97% ; Weight 111.13 kg; Height 5 vg1 ft. 2 in. (157.48 cm); Pain 10/10; 16:27 BP 126 / 74; Pulse 96; Resp 18; Pulse Ox 98% on R/A; ld1 14:14 Body Mass Index 44.81 (111.13 kg, 157.48 cm) vg1 ED Course: 13:42 Patient arrived in ED. mr 13:42 Dhara Linda is Private Physician. mr 14:17 Triage completed. vg1 14:17 Arm band placed on. vg1 14:23 Bethany Baca [facility]-C [facility]. sb4 14:23 Krzysztof Em MD is Attending Physician. sb4 14:47 CT Stone Protocol In Process Unspecified. EDMS 15:19 Initial lab(s) drawn, by or, sent to lab. Inserted saline lock: 20 gauge in right iw antecubital area, using aseptic technique. Blood collected. 15:24 Celia Curran, BERNABE is Primary Nurse. ld1 16:05 Inserted saline lock: 20 gauge in left forearm, using aseptic technique. ld1 18:02 Dhara Linda is Referral Physician. sb4 18:20 No provider procedures requiring assistance completed. IV discontinued, intact, ld1 bleeding controlled, No redness/swelling at site. 18:21 Patient has correct armband on for positive identification. Placed in gown. Bed in low ld1 position. Call light in reach. Side rails up X2. Pulse ox on. NIBP on. Administered Medications: 14:28 Drug: TORadol (ketorolac) 30 mg Route: IM; Site: right gluteus; vg1 17:46 Follow up: Response: No adverse reaction ld1 15:36 Drug: morphine 4 mg Route: IVP; Infused Over: 4 mins; Site: right antecubital; ld1 17:46 Follow up: Response: No adverse reaction ld1 15:36 Drug: Zofran (Ondansetron) 4 mg Route: IVP; Site: right antecubital; ld1 17:46 Follow up: Response: No adverse reaction ld1 16:04 Drug: NS 0.9% 1000 ml Route: IV; Rate: 1 bolus; Site: left forearm; ld1 17:46 Follow up: Response: No adverse reaction; IV Status: Completed infusion; IV Intake: ld1 1000ml 17:33 Drug: morphine 4 mg Route: IVP; Infused Over: 4 mins; Site: left forearm; ld1 17:46 Follow up: Response: No adverse reaction ld1 Medication: 18:20 VIS not applicable for this client. ld1 Intake: 17:46 IV: 1000ml; Total: 1000ml. ld1 Outcome: 18:03 Discharge ordered by . sb4 18:20 Discharged to home ambulatory, with family. ld1 18:20 Condition: stable 18:20 Discharge instructions given to patient, family, Instructed on discharge instructions, follow up and referral plans. medication usage, Demonstrated understanding of instructions, follow-up care, medications, Prescriptions given X 1. 18:21 Patient left the ED. ld1 Signatures: Dispatcher [employer] Lacey Eric Irene, RN RN Rhiannon Woods RN RN vg1 Celia Curran RN RN ld1 Bethany Baca, PADeborah woods4
[2022-07-10 22:55] VITALS: TEMP 98.6
[2022-07-10 22:56] VITALS: BP 126/74; O2SAT 98
== END 2022-07-10 18:21 | disposition home or self-care (01) ==
LOC: ER 13:38
DX: N20.0 Calculus of kidney (principal); E11.9 Type 2 diabetes mellitus without complications
CPT/HCPCS: 85025; 36415; 83735; 81003; 80053; 76377; 74176; J7030; J2405

== ENCOUNTER 2022-08-20 20:35 | Emergency (ER) | payer OTHER ==
--- OUTSIDE RECORDS SUMMARY | 2022-08-20 20:41 | XMS REPORT | Continuity of Care Document ---
:1970 Author Organization [facility] t Address [address] [place] [address] [address] [place] [address] Care Team Providers Name Role Phone AZUCENA STRAUSS Primary Care Physician Unavailable KAYLA LUTZ Attending Clinician Unavailable LACEY CLEMENTS Attending Clinician Unavailable Clemente KIDD, Chelo Larson Attending Clinician Unavailable ANNAMARIA BARKER Attending Clinician Unavailable Brodie Clemons MD Attending Clinician Annamaria Barker DO Attending Clinician BERNICE COLUNGA Attending Clinician Unavailable Bernice Amaya Attending Clinician FILIPE WIGGINS Attending Clinician Unavailable CLAYTON GARRIDO Attending Clinician Unavailable Kayal Lutz MD Attending Clinician Bharath Padgett CRNA Attending Clinician Trang Hunt MD Attending Clinician Doctor Unassigned, Ali Molina Attending Clinician Unavailable Pob, Adc Lab Main [...] Number Effective Date Expiration Date Lucrecia clement [facility] [id number] 2021 PLUS 00:00:00 FORMERLY [facility] [id number] 2015 HEALTH CHOICE 00:00:00 AMBETTER [id number] 2020 [facility] 00:00:00 PLAN Ambetter from [id number] Common Spi rit [facility] AMBETTER [id number] 2019 FROM [facility]UNEDIN 00:00:00 HEALTH Ambetter from [id number] Common Spi rit [facility] Ambetter from [id number] Common Spi rit [facility] Ambetter from [id number] Common Spi rit [facility] Problems Condition Condition Condition Status Onset [...] Added automatic ally from request for surgery [id number] Hip pain, Hip pain, Disease Active UT [...] of 00:00: [place] 00 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 (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) (current) 8-28 [...] pain knee pain 3- ity of 00:00: [place] [address] Medical Branch Bilateral Bilateral Disease Active Uni vers knee pain knee pain 3- ity of 00:00: [place] [address] Medical Branch [id number] Pain, Problem Active Commo n [id number] joint, Spirit hand, left - [facility] [id number] [place] [id number] osteoarthr Spirit itis of - [facility] left hip [facility] [id number] Trigger Problem Active Commo n finger, Spirit right ring - [facility] finger [facility] [id number] Pain, Problem Active Commo n [id number] joint, Spirit hand, - [facility] right [facility] Allergies, Adverse Reactions, Alerts Allergy Allergy Status Severity Reaction(s) Onset Inactive Treating Comm ents Source Name Type Date Date Clinician CODEINE DRUG Active N/V Univers INGREDI 2- ity of 00:00: [place] [address] Medical Branch Codeine Propensi Active Nausea And [place] ty to Vomiting 09-07 Health adverse 00:00: reaction 00 s Social History Social Habit Start Date Stop Date Quantity Comments Source History [facility] Health Alcohol Std Drinks History [facility] Health Alcohol Binge History of Common Spirit - Tobacco Use [facility] Sex Assigned At Common Sp mingo - [facility] History [facility] Food 2022-06-13 2022-06-13 1 Univers ity of Worry 00:00:00 00:00:00 [facility] Branch History [facility] Food 2022-06-13 2022-06-13 1 Univers ity of Scarcity 00:00:00 00:00:00 [place] [facility] History SDOH 2022-06-13 2022-06-13 2 University o f Transport Med 00:00:00 00:00:00 [place] Medic al Branch History SDTN 2022-06-13 2022-06-13 2 University o f Transport Non-Med 00:00:00 00:00:00 [place] M edical Branch Tobacco use and 2022-06-11 2022-06-11 Smokeless tobacco Un iversity of exposure 00:00:00 00:00:00 non-user [facility] Exposure to 2022-05-31 2022-06-10 Not sure University of SARS-CoV-2 00:00:00 19:45:00 [facility] (event) Branch Education 2022-06-10 2022-06-10 21 [facility] :00:00 00:00:00 [facility] Alcohol intake 2020-12-18 2020-12-18 Lifetime [facility] 00:00:00 00:00:00 non-drinker (finding) History SDOH 2020-12-18 2020-12-18 1 [facility] Alcohol Frequency 00:00:00 00:00:00 Smoking Status Start Date Stop Date Source Never smoked tobacco [facility] Medications Ordered Filled Start Stop Current Ordering Indication Dosage Frequency Signature Comments Components Source Medication Medication Date Date Medication? Clinician (SIG) Name Name cefTRIAXone 2021-08- Yes 1000mg 1,000 mg, Univers (ROCEPHIN) 08-13 IV ity of 1,000 mg [facility]:00[facility] [place] NaCl 0.9% 00 :00 Q24H ABX, Medic al (NS) 50 mL 2 doses, Branc h MINI-BAG First dose (after last modificati on) on Sneha 06/13/22 at 1200, Last dose on Fri06/14/22 at 1200, Administer over 30 Minutes, 50 mL
Reas on for Anti-Infec tive: Documented Infection< br>Documen billy Infection Site: Urine
D uration of Therapy: 7 days lactobacill 2021-08- Yes [id number] .5mg Take 1 Univers us 08-13-11 tablet by ity of acidophilus 00:00: 05:59 mouth in [place] 00 :00 the Medical morning Tiro for 30 days. polyethylen 2021-08- Yes [id number] 17g Take 1 Univers e glycol 08-13-11 Packet by ity o f 3350 17 00:00: 05:59 mouth in [place] gram powder 00 :00 the Medical morning Tiro for 30 days. lactobacill 2021-08- Yes [id number] .5mg Take 1 Univers us - 12-11 tablet by ity of acidophilus 00:00: 05:59 [place] 00 :[place] the Medical morning Tiro for 30 days. polyethylen 2021-08- Yes [id number] 17g Take 1 Univers e glycol 1-10 [...] mouth 2 ity of tablet 16:08: (two) [place] 30 times Medical daily. Branch DULoxetine 2021-08 Yes 60mg Take 60 mg U nivers 60 mg 09 by mouth ity of capsule 16:08: daily. [place] 30 Medical Branch proMETHazin 2021-08 Yes [id number] 25mg Take 1 Univers e 25 mg 09 tablet by ity of tablet 00:00: mouth [place] 00 every 4 Medical (four) Branch hours as needed for N/V unresponsi ve to Ondansetro n. proMETHazin 2021-08 Yes [id number] 25mg Take 1 Univers e 25 mg 09 tablet by ity of tablet 00:00: mouth [place] 00 every 4 Medical (four) Branch hours as needed for N/V unresponsi ve to Ondansetro n. docusate 2021-08- Yes [id number] 100mg Take 1 Univers 100 mg 08-12 12-10 capsule by ity of capsule 00:00: 05:59 mouth in [place] 00 :00 the Medical morning Branch and 1 capsule in the evening. Do all this for 30 days. docusate 2021-08- Yes [id number] 100mg Take 1 Univers 100 mg 08-12 12-10 capsule by ity of capsule 00:00: 05:59 mouth in [place] 00 :00 the Medical morning Branch and [...] Indication s: acute pain ciprofloxac 2021-08- Yes [id number] 500mg Take 1 Univers in HCl 500 08-12 tablet by ity of mg tablet 00:00: 05:59 mouth [place] 00 :00 every 12 Medical (twelve) Branch hours for 7 days. metroNIDAZO 2021-08- Yes [id number] 500mg Take 2 Univers LE 250 mg [...] Indication s: acute pain ciprofloxac 2021-08- Yes [id number] 500mg Take 1 Univers in HCl 500 08-12 tablet by ity of mg tablet 00:00: 05:59 mouth [place] 00 :00 every 12 Medical (twelve) Branch hours for 7 days. metroNIDAZO 2021-08- Yes [id number] 500mg Take 2 Univers LE 250 mg [...] 40 mg 00 First dose Medical on [facility] 06/11/22 at 0900, Until Discontinu ed, Routine DULoxetine 2021-08 Yes 60mg 60 mg, Unive rs (CYMBALTA) 08 Oral, ity of capsule 60 15:00: DAILY, [place] mg 00 First dose Medical on [facility] 06/11/22 at 0900, Until Discontinu ed, Routine lactobacill 2021-08 Yes .5mg 0.5 mg, Uni vers us 08 Oral, ity of acidophilus 15:00: DAILY, [place] tablet 0.5 00 First dose Med ical mg on [facility] 06/11/22 at 0900, Until Discontinu ed, Routine Sliding 2021-08 Yes Subcutaneo Univ ers Scale 1-08 us, TID ity of Insulin - 14:00: MEALS, [place] Lispro 00 First dose Medical (HumaLOG) + on [facility] Fsbg 06/11/22 at Testing 0800, Until Discontinu ed, Routine morpHINE (4 2021-08 Yes 4mg 4 mg, Slow Univers mg/mL) 08-11 IV Push, ity of injection 4 12:52: Q4HPRN, [place] mg 08 Starting Medical on [facility] 06/11/22 at 0652, Until Discontinu ed, Routine, Pain (scale 7-10) cefTRIAXone 2021-08 No 1000mg 1,000 mg, Univers (ROCEPHIN) 08-11 11-09 IV ity of 1,000 mg in 08:00: 18:21 Piggyback, [place] NaCl 0.9% 00 :49 Q12H ABX, Medic [...] 06:15: First dose [place] mg 00 on [facility] 06/11/22 at Branch 0015, Until Discontinu ed, Routine gabapentin 2021-08 Yes 200mg 200 mg, Uni vers (NEURONTIN) 108 Oral, BID, it y of capsule 200 06:15: First dose [place] mg 00 on [facility] 06/11/22 at Branch 0015, Until Discontinu ed, Routine cyclobenzap 2021-08 Yes 10mg 10 mg, Univ ers rine 108 Oral, BID, ity of (FLEXERIL) 06:15: First dose [place] tablet 10 00 on [facility] mg 06/11/22 at Branch 0015, Until Discontinu ed, Routine ondansetron 2021-08 Yes 4mg 4 mg, Slow Univers (ZOFRAN 08-11 IV Push, ity of (PF)) 06:06: Q6HPRN, [place] injection 4 47 Starting Medi danielle mg on [facility] 06/11/22 at 0006, Until Discontinu ed, Routine, [...] ity o f (PF)) 05:58: 12:52 Push, [place] injection 16 :20 Q4HPRN, Medical 50 mcg [...] IV ity of (REGLAN) 03:17: 21:27 Push, [place] injection 15 :54 TIDPRN, Medical 10 mg [...] 00 :00 dose, On Medi danielle mg [facility] Branch 06/10/22 at 1715, KUNAL morpHINE (4 2021-08 No 4mg 4 mg, Slow Univers mg/mL) 08-10 IV Push, ity of injection 4 22:15: 21:21 ONCE, 1 [place] mg 00 :00 dose, On Medical [facility] Branch 06/10/22 at 1615, STAT cefTRIAXone 2021-08- No 1000mg 1,000 mg, Univers (ROCEPHIN) 08-10 IV ity of 1,000 mg in 20:15: 20:51 Piggyback, [place] NaCl 0.9% 00 :00 ONCE, 1 Medical [...] [place] mg 00 :00 dose, On Medical [facility] Branch 06/10/22 at 1330, STAT ondansetron 2021-08 No 4mg 4 mg, Slow Univers (ZOFRAN 08-10 IV Push, ity of (PF)) 19:30: 19:29 ONCE, 1 [place] injection 4 00 :00 dose, On Medi danielle mg [facility] 06/10/22 at 1330, KUNAL FENTanyl PF 2021-08 No 50ug 50 mcg, Un james (SUBLIMAZE 08-10 Slow IV ity o f (PF)) 18:01: 18:02 Push, [place] injection 00 :00 ONCE, 1 Medical 50 mcg dose, On Branch Fri06/10/22 at 1215, Routine cefpodoxime 2021-08 No [id number] 100mg Take 1 Univers 100 mg 08-10 tablet by ity of tablet 00:00: 00:00 mouth in [place] 00 :00 the Medical morning Branch and [...] by ity of capsule 00:00: mouth 2 [place] (two) Medical times Branch daily. gabapentin 2022-0 Yes 100mg Take 100 Un james 100 mg 4-28 mg by ity of capsule 00:00: mouth 2 [place] (two) Medical times Branch daily. gabapentin 2022-0 Yes 100mg Take 100 Un james 100 mg 4-28 mg by ity of capsule 00:00: mouth 2 [place] (two) Medical times Branch daily. lidocaine-p 2021-0 Yes APPLY TO Un james rilocaine 2-28 AFFECTED ity of 2.5-2.5 % 00:00: AREA EVERY [place] cream 00 DAY Medical NEEDED Branch eszopiclone 2021-0 Yes 1mg Take 1 mg U nivers 1 mg tablet 2-28 by mouth ity of 00:00: daily. [place] [facility] Branch lidocaine-p 2021-0 Yes APPLY TO Un james rilocaine 2-28 AFFECTED ity of 2.5-2.5 % 00:00: AREA EVERY [place] cream 00 DAY Medical NEEDED Branch eszopiclone 2021-0 Yes 1mg Take 1 mg U nivers 1 mg tablet 2-28 by mouth ity of 00:00: daily. [place] [facility] Branch lidocaine-p 2-0 Yes APPLY TO Un james rilocaine 2-28 AFFECTED ity of 2.5-2.5 % 00:00: AREA EVERY [place] cream 00 DAY Medical NEEDED Branch eszopiclone 2021-0 Yes 1mg Take 1 mg U nivers 1 mg tablet 2-28 by mouth ity of 00:00: daily. [address] Branch methylPREDN 2-0 Yes [id number] 84mg Take 21 Univers ISolone 2-21 tablets by ity of (MEDROL, 00:00: mouth Medardo CARRASCO,) 4 mg 00 SEE-INSTRU Med ical tablets CTIONS. Branch follow package directions methylPREDN 2-0 2- No [id number] 84mg Take 21 Univers ISolone 2-21 11-08 tablets by ity o f (MEDROL, 00:00: 00:00 mouth Medardo CARRASCO,) 4 mg 00 :00 SEE-INSTRU Med ical tablets CTIONS. Branch follow package directions methylPREDN 2020-08 Yes [id number] 84mg Take 21 Univers ISolone 0-19 [id number] tablets by ity of (MEDROL, 00:00: mouth [place] LUNA,) 4 mg 00 SEE-INSTRU Med ical tablets CTIONS. Branch follow package directions methylPREDN 2020-08- No [id number] 84mg Take 21 Univers ISolone 0-19 11-08 [id number] tablets by ity of (MEDROL, 00:00: 00:00 mouth [place] LUNA,) 4 mg 00 :00 SEE-INSTRU Med ical tablets CTIONS. Branch follow package directions methocarbam Yes [id number] 750mg [id number] Take 1 [place] ol 5-17 9103 [id number] tablet Health (Robaxin) 00:00: 3D (750 mg 750 MG 00 total) by tablet mouth 3 (three) times a day if needed for muscle spasms for up to 10 days. methocarbam 2020- No [id number] 750mg Q.[id number] Take 1 [place] ol 5-17 05-28 9103 [id number] tablet Health (Robaxin) 00:00: 04:59 3D (750 mg 750 MG 00 :00 total) by tablet mouth 3 (three) times a day if needed for muscle spasms for up to 10 days. metFORMIN Yes [place] (Glucophage 5-13 Health ) 1000 MG 00:00: tablet 00 metFORMIN Yes [place] (Glucophage 5-13 Health ) 1000 MG 00:00: tablet 00 benzonatate 2019- Yes [id number] 100mg Take 1 Univers 100 mg 6-24 capsule by ity of capsule 00:00: mouth 3 [place] 00 (three) Medical times Branch daily as needed for Cough. chlorphenir 2019-0 Yes [id number] 4mg Take 1 Univers amine 4 mg 6-24 tablet by ity of tablet 00:00: mouth [place] 00 every 6 Medical (six) Branch hours as needed for Allergies or Runny nose. benzonatate 0 2021- No [id number] 100mg Take 1 Univers 100 mg 6-24 11-08 capsule by ity of capsule 00:00: 00:00 mouth 3 [place] 00 :00 (three) Medical times Branch daily as needed for Cough. chlorphenir 2019-0 2- No [id number] 4mg Take 1 Univers amine 4 mg [...] by mouth ity of tablet 00:00: daily. [place] Medical Branch metFORMIN Yes TAKE 1 Univer [...] Co mmon [place] defined Spirit - [facility] Metformin Metformin Yes Ronen not Co mmon HCl HCl [place] Spirit - [facility] Naproxen Naproxen Yes Ronen not Comm on [place] Spirit - [facility] Amoxicillin Amoxicillin Yes Ronen not Common -Pot -Pot [place] Spirit Clavulanate Clavulanate - [facility] Hydrochloro Hydrochloro Yes Ronen not Common thiazide thiazide [place] defined [facility] Cyclobenzap Cyclobenzap Yes Ronen not Common rine HCl rine HCl [place] defined [facility] Vitamin D Vitamin D Yes Ronen not Co mmon (Ergocalcif (Ergocalcif [place] Spirit satya) satya) [facility] Ferrous Ferrous Yes Ronen not Common Sulfate Sulfate [place] defined [facility] Amitriptyli Amitriptyli Yes Ronen not Common ne HCl ne HCl [place] defined [facility] Methocarbam Methocarbam Yes Ronen not Common ol ol [place] defined [facility] Ondansetron Ondansetron Yes Ronen not Common HCl HCl [place] [facility] BusPIRone BusPIRone Yes Ronen not Co mmon HCl HCl [place] defined [facility] Diclofenac Diclofenac Yes Ronen not Common Sodium Sodium [place] defined [facility] Benzonatate Benzonatate Yes Ronen not Common [place] [facility] Gabapentin Gabapentin Yes Ronen not Common [place] defined [facility] Ketorolac Ketorolac No Ketorolac Tromethamin [...] y of Vaccine Quad IM 3+ 00:00:00 [facility] Influenza Virus 2021-06-24 Completed Universit y of Vaccine Quad IM 3+ 00:00:00 [facility] SARS-COV-2 COVID-19 2021-04-23 Completed Unive rsity of PFIZER VACCINE 00:00:00 [facility] SARS-COV-2 COVID-19 2021-04-23 Completed Unive rsity of ALY/J&J VACCINE 00:00:00 [facility] SARS-COV-2 COVID-19 2021-04-23 Completed Unive rsity of PFIZER VACCINE 00:00:00 [facility] SARS-COV-2 COVID-19 2021-04-23 Completed Unive rsity of ALY/J&J VACCINE 00:00:00 [facility] SARS-COV-2 COVID-19 2021-04-23 Completed Unive rsity of PFIZER VACCINE 00:00:00 [facility] SARS-COV-2 COVID-19 2021-04-23 Completed Unive rsity of ALY/J&J VACCINE 00:00:00 [facility] SARS-COV-2 COVID-19 2021-04-02 Completed Unive rsity of PFIZER VACCINE 00:00:00 [facility] SARS-COV-2 COVID-19 2021-04-02 Completed Unive rsity of ALY/J&J VACCINE 00:00:00 [facility] SARS-COV-2 COVID-19 2021-04-02 Completed Unive rsity of PFIZER VACCINE 00:00:00 [facility] SARS-COV-2 COVID-19 2021-04-02 Completed Unive rsity of ALY/J&J VACCINE 00:00:00 [facility] SARS-COV-2 COVID-19 2021-04-02 Completed Unive rsity of PFIZER VACCINE 00:00:00 [facility] SARS-COV-2 COVID-19 2021-04-02 Completed Unive rsity of ALY/J&J VACCINE 00:00:00 [facility] Influenza Virus 2020-05-12 Completed Universit y of Vaccine Quad IM 3+ 00:00:00 [facility] Influenza Virus 2020-05-12 Completed Universit y of Vaccine Quad IM 3+ 00:00:00 [facility] Influenza Virus 2020-05-12 Completed Universit y of Vaccine Quad IM 3+ 00:00:00 [facility] LIDOCAINE HCL LIDOCAINE HCL 2020-01-20 Completed Common S pirit - 10MG/ML 10MG/ML 08:45:00 [facility] LIDOCAINE HCL LIDOCAINE HCL 2020-01-20 Completed Common S pirit - 10MG/ML 10MG/ML 08:45:00 [facility] LIDOCAINE HCL LIDOCAINE HCL 2020-01-20 Completed Common S pirit - 10MG/ML 10MG/ML 08:45:00 [facility] LIDOCAINE HCL LIDOCAINE HCL 2020-01-20 Completed Common S pirit - 10MG/ML 10MG/ML 08:45:00 [facility] LIDOCAINE HCL LIDOCAINE HCL 2020-01-20 Completed Common S pirit - 10MG/ML 10MG/ML 08:45:00 [facility] LIDOCAINE HCL LIDOCAINE HCL 2020-01-20 Completed Common S pirit - 10MG/ML 10MG/ML 08:45:00 [facility] Depo-Medrol Depo-Medrol 2020-01-20 Completed Common Spiri t - (Methylprednisolone (Methylprednisolone 08:44:[address] [facility] 40mg ) 40mg [facility] Depo-Medrol Depo-Medrol 2020-01-20 Completed Common Spiri t - (Methylprednisolone (Methylprednisolone 08:44:[address] [facility] ) 40mg ) 40mg [facility] Depo-Medrol Depo-Medrol 2020-01-20 Completed Common Spiri t - (Methylprednisolone (Methylprednisolone 08:44:[address] [facility] ) 40mg ) 40mg [facility] Depo-Medrol Depo-Medrol 2020-01-20 Completed Common Spiri t - (Methylprednisolone (Methylprednisolone 08:43:[address] [facility] ) 40mg ) 40mg [facility] Depo-Medrol Depo-Medrol 2020-01-20 Completed Common Spiri t - (Methylprednisolone (Methylprednisolone 08:43:[address] [facility] ) 40mg ) 40mg [facility] Depo-Medrol Depo-Medrol 2020-01-20 Completed Common Spiri t - (Methylprednisolone (Methylprednisolone 08:43:[address] [facility] ) 40mg ) 40mg [facility] Influenza Virus 2019-09-13 Completed Universit y of Vaccine Quad IM 3+ 00:00:00 [facility] Influenza Virus 2019-09-13 Completed Universit y of Vaccine Quad IM 3+ 00:00:00 [facility] Influenza Virus 2019-09-13 Completed Universit y of Vaccine Quad IM 3+ 00:00:00 [facility] Vital Signs Vital Name Observation Time Observation Value Comments Source Systolic blood 2022-06-12 18:06:00 155 mm[Hg] Univer sity of pressure [facility] Diastolic blood 2022-06-12 18:06:00 84 mm[Hg] Unive rsity of pressure [facility] Heart rate 2022-06-12 18:06:00 90 /min Universi ty of [facility] Body temperature 2022-06-12 18:06:00 36 [facility] Respiratory rate 2022-06-12 18:06:00 18 /min [facility] Oxygen saturation in 2022-06-12 18:06:00 94 /min [facility] Arterial blood by [facility] Pulse oximetry Branch Body weight 2022-06-11 09:20:00 113.49 kg Universi ty of [facility] BMI 2022-06-11 09:20:00 47.27 kg/m2 Universi ty of [facility] Body height 2022-06-11 01:52:00 154.9 cm Universi ty of [facility] Systolic blood 2022-04-19 13:32:00 127 mm[Hg] Univer sity of [facility] Diastolic blood 2022-04-19 13:32:00 67 mm[Hg] Unive rsity of [facility] Heart rate 2022-04-19 13:32:00 88 /min Universi ty of [facility] Body height 2022-04-19 13:32:00 154.9 cm Universi ty of [facility] Body weight 2022-04-19 13:32:00 117.028 kg Universi ty of [facility] BMI 2022-04-19 13:32:00 48.75 kg/m2 Universi ty of [facility] Body height 2020-12-18 16:17:00 [facility] 2020-12-18 16:17:00 115[facility]667 [facility] BMI 2020-12-18 16:17:00 46.64 kg[facility]m2 [facility] Body height 2020-12-18 16:17:00 [facility]5 [facility] 2020-12-18 16:17:00 [facility]667 [facility] 2020-12-18 16:17:00 46.64 kg/m2 [facility] [place] [facility] h Procedures Procedure Date / Time Performing Clinician Source Performed POCT GLUCOSE (AUTOMATED) 2022-06-12 18:08:00 Annamaria Barker [facility] BASIC METABOLIC PANEL 2022-06-12 09:27:00 Jimmy Rowland [facility] (NA, K, CL, CO2, Medical Branch GLUCOSE, BUN, CREATININE, CA) CBC WITH DIFF 2022-06-12 09:27:00 Jimmy Rowland [facility] POCT GLUCOSE (AUTOMATED) 2022-06-12 07:56:00 Annamaria Barker [facility] POCT GLUCOSE (AUTOMATED) 2022-06-12 01:45:00 Annamaria Barker [facility] POCT GLUCOSE (AUTOMATED) 2022-06-11 22:56:00 Annamaria Barker [facility] POCT GLUCOSE (AUTOMATED) 2022-06-11 18:11:00 Annamaria Barker [facility] POCT GLUCOSE (AUTOMATED) 2022-06-11 14:05:00 Annamaria Barker [facility] PHOSPHORUS 2022-06-11 10:40:00 Bhaskar [facility] CREATINE KINASE 2022-06-11 10:40:00 Bhaskar [facility] AMYLASE 2022-06-11 10:40:00 Bhaskar [facility] LIPASE 2022-06-11 10:40:00 Bhaskar [facility] MAGNESIUM 2022-06-11 10:40:00 Bhaskar [facility] COMP. METABOLIC PANEL 2022-06-11 10:40:00 Robbi Muro [facility] ([id number]) [facility] CBC WITH DIFF 2022-06-11 10:40:00 Bhaskar [facility] GLYCOSYLATED HEMOGLOBIN 2022-06-11 10:40:00 Jimmy Rowland [facility] (A1C) [facility] N-TERMINAL PRO-BNP 2022-06-11 10:40:00 Robbi Muro [facility] POCT GLUCOSE (AUTOMATED) 2022-06-11 07:56:00 Annamaria Barker [facility] URINE CULTURE 2022-06-11 05:18:00 Bhaskar [facility] PROTHROMBIN TIME / INR 2022-06-11 03:24:00 Bhaskar ender [facility] LACTIC ACID WHOLE BLOOD 2022-06-11 03:18:00 Bhaskar [facility] C-REACTIVE PROTEIN 2022-06-11 03:17:00 Bhaskar [facility] SEDIMENTATION RATE 2022-06-11 03:17:00 Bhaskar [facility] PROCALCITONIN 2022-06-11 03:17:00 Bhaskar [facility] US OVARY TORSION 2022-06-10 22:01:56 Brodie Clemons [facility] URINALYSIS 2022-06-10 19:14:00 Brodie Clemons [facility] CT ABDOMEN PELVIS WO 2022-06-10 18:36:36 Brodie Clemons [facility] CONTRAST [facility] PHOSPHORUS 2022-06-10 17:54:00 Bhaskar [facility] URIC ACID 2022-06-10 17:54:00 Bhaskar [facility] LIPASE 2022-06-10 17:54:00 Brodie Clemons [facility] MAGNESIUM 2022-06-10 17:54:00 Bhaskar [facility] FERRITIN SERUM 2022-06-10 17:54:00 Bhaskar [facility] HEPATIC FUNCTION PANEL 2022-06-10 17:54:00 Brodie Clemons [facility] ([id number]) (ALB,T.PRO,BILI [facility] Branch T,BU/BC,ALT,AST,ALK PHOS) BASIC METABOLIC PANEL 2022-06-10 17:54:00 Brodie Clemons [facility] (NA, K, CL, CO2, Medical Branch GLUCOSE, BUN, CREATININE, CA) IRON PANEL 2022-06-10 17:54:00 Robbi Muro [facility] CBC WITH DIFF 2022-06-10 17:54:00 Brodie Clemons [facility] N-TERMINAL PRO-BNP 2022-06-10 17:54:00 Robbi Muro [facility] CONSENT/REFUSAL FOR 2022-06-10 17:38:54 Doctor Unassigned, No Un [facility] DIAGNOSIS AND TREATMENT Name Medical Branch Encounters Start End Encounter Admission Attending Care Care Encounter Source Date/Time Date/Time Type Type Clinicians Facility Department ID 2022-01-04 Outpatient Shira LUTZ, [facility] SOR [id number] Univers 12:25:16 KAYLA [facility] 2021-08-29 Outpatient STLMLC STLMLC Common 12:51:44 [id number] [facility] 2021-08-29 Outpatient STLMLC STLMLC Common 11:59:56 [id number] [facility] 2021-08-29 Outpatient STLMLC STLMLC Common 11:28:05 [id number] [facility] 2021-08-29 Outpatient STLMLC STLMLC Common 11:27:12 [id number] [facility] 2021-06-01 Emergency [facility] [id number] Univers 02:46:06 [facility] 2020-12-18 Outpatient [facility] [id number] [place] 09:37:27 [facility] 2020-12-18 Outpatient [facility] [id number] [place] 09:37:27 [facility] 2020-12-18 Outpatient [facility] [id number] [place] 09:37:27 [facility] 2020-12-15 Outpatient [facility] [id number] [place] 12:03:34 [facility] 2020-12-15 Outpatient [facility] [id number] [place] 12:03:34 [facility] 2020-12-15 Outpatient [facility] [id number] [place] 12:00:05 [facility] 2020-12-09 Outpatient STARR [facility] [id number] [place] 04:06:39 [facility] 2022-06-13 2022-06-13 Transition TOM Cornejo 1.2.840.114 [id number] Univers 00:00:00 00:00:00 of Care Chelo SIDDIQIY 350.1.13.10 it y of [place] [phone] [facility] 403 Branch 2022-06-10 2022-06-12 Outpatient X MJ [facility] [id number] Univers 11:37:00 16:00:00 ANNAMARIA hills [facility] 2022-06-10 2022-06-12 Emergency Deonte Jackson [facility] 1.2.840.1 14 [id number] Univers 11:37:00 16:00:00 Annamaria Barker 350.1.13.10 ity of [place] [phone] [facility] 081 Tiro 2022-04-19 2022-04-19 Outpatient [facility] [id number] Univers 08:55:00 23:59[facility] 2022-04-19 2022-04-19 Outpatient Sh[facility] [id number] Univers 08:55:00 23:59:00 [facility] 2022-04-19 2022-04-19 Office [email or web address] 1.2.840.114 [id number] Univers 08:45:00 09:00:00 Visit [facility] 350.1.13.10 it y of [place] 4.2.7.2.686 Blaze as GREGOR?BLEA [phone] Ak betsy [address] MEDICAL OFFICE [facility] 2022-02-25 2022-02-25 Outpatient Shira [facility] [id number] Univers 15:15:00 15:15:00 BERNICE dahlia [facility] 2022-02-21 2022-02-21 Outpatient Sh[facility] [id number] Univers 10:45:00 10:45:00 BERNICE [facility] 2022-02-18 2022-02-18 Outpatient Shira WIGGINS [facility] [id number] Univers 10:30:00 10:30:00 CHIZACH ity o f [facility] 2022-01-18 2022-01-18 Outpatient R [facility] [id number] Univers 10:00:00 10:00:00 CLAYTON ity of [facility] 2022-01-17 2022-01-17 [facility]ill [email or web address] 1.2.447.509 [id number] Univers 00:00:00 00:00:00 Kayla Serra [facility] 350.1.13.10 it y [facility] 4.2.7.2.686 Blaze as GREGOR?BLEA [phone] [address] MEDICAL OFFICE BUILDING 2022-01-14 2022-01-14 Outpatient R [email or web address] SOR [id number] Univers 06:59:00 09:15:00 KAYLA ity of [facility] 2022-01-14 2022-01-14 Hospital [facility] 1.2.840.114 [id number] Univers 06:59:00 09:15:00 Encounter Kayla MEEKS 350.1.13.10 ity of [place] SURGICAL [id number] [facility] 071 Branch 2022-01-14 2022-01-14 Surgery [facility] 1.2.005.804 [id number] Univers 08:20:00 09:12:00 Kayla MEEKS 350.1.13.10 i ty of [place] SURGICAL [phone] [facility] 020 Tiro 2022-01-14 2022-01-14 Anesthesia Bharath Padgett [facility] 1.2.840.11 [id number] Univers 08:25:00 08:39:00 Event Trang Hunt 350.1.13.10 ity of [facility] 4.2.7.2.[place]GICAL [id number] [facility] 020 Tiro 2022-01-14 2022-01-14 Orders Doctor COSTELLO 1.2.840.114 [id number] Univers 00:00:00 00:00:00 Only Unassigned, DIONICIO 350.1.13.10 ity of Ali Molina [facility] 4.2.7.2.686 Blaze as [phone] [facility] 009 Branch 2022-01-11 2022-01-11 Hospital Bolivar [facility] 1.2.840.114 [id number] Univers 07:39:32 23:59:00 Encounter Kayla MEEKS 350.1.13.10 ity of [facility] 4.2.7.2.686 [facility] [id number] [facility] 807 Branch 2022-01-11 2022-01-11 Outpatient R BOLIVAR [facility] [id number] Univers 07:39:18 23:59:00 KAYLA hills [facility] 2022-01-11 2022-01-11 Bailer Operators Supervisor Luzmaria, Adc Lab Main [facility] 1.2.8 40.114 [id number] Univers 08:30:00 08:45:00 Visit Kayla Lutz 350.1.13.10 ity of [facility] 4.2.7.2.[place] [phone] Ak betsy JEAN-BAPTISTE 353 [facility] 2022-01-11 2022-01-11 Laboratory Only, Adc Test [facility] 1.2.840. 114 [id number] Univers 08:15:00 08:30:00 Only Kayla Lutz 350.1.13.10 ity of [facility] 4.2.7.2.686 [facility] [phone] [facility] 353 Branch 2022-01-11 2022-01-11 Outpatient R BOLIVAR [facility] [id number] Univers 08:15:00 08:15:00 KAYLA hills [facility] 2022-01-11 2022-01-11 Telephone Bolivar [facility] 1.2.840.114 [id number] Univers 00:00:00 00:00:00 Kayla Serra HEALTH 350.1.13.10 it y [facility] 4.2.7.2.686 Blaze as GREGOR?BLEA [phone] Ak dical KNEY [address] MEDICAL OFFICE BUILDING 2022-01-04 2022-01-04 Office [facility] 1.2.840.114 [id number] Univers 11:15:00 11:30:00 Visit Bernice S HEALTH 350.1.13.10 it y of [place] 4.2.7.2.686 Blaze as GREGOR?BLEA [id number] Ak betsy PAREDES 198 [facility] OFFICE [facility] 2022-01-04 2022-01-04 Outpatient Shira COLUNGA [facility] [id number] Univers 11:15:00 11:15:00 BERNICE itdahlia [facility] 2022-01-04 2022-01-04 Outpatient Shira COLUNGA [facility] [id number] Univers 11:15:00 11:15:00 [facility] 2022-01-04 2022-01-04 Prep For [email or web address] 1.2.840.114 [id number] Univers 00:00:00 00:00:00 Surgery Kayla Serra MadeiraMadeira 350.1.13.10 it y of [place] 4.2.7.2.686 Blaze as GREGOR?BLEA [id number] Ak betsy PAREDES [address] [facility] 2021-12-20 2021-12-20 Outpatient R BOLIVAR [facility] [id number] Univers 10:00:00 10:00:00 [facility] 2021-12-11 2021-12-11 Telephone [email or web address] 1.2.840.114 [id number] Univers 00:00:00 00:00:00 Kayla Serra HEALTH 350.1.13.10 it y of [place] 4.2.7.2.686 Blaze as GREGOR?BLEA [phone] Ak betsy PAREDES [address] [facility] 2021-12-07 2021-12-07 Outpatient Shira COLUNGA [facility] [id number] Univers 10:23:58 23:59:00 BERNICE ity [facility] 2021-12-07 2021-12-07 [email or web address] 1.2.840.114 [id number] Univers 10:23:58 23:59:00 Encounter Bernice FUENTESTON 350.1.13.10 ity of [place] [phone] [facility] 804 Tiro 2021-11-30 2021-11-30 Outpatient Shira COLUNGA [facility] [id number] Univers 10:45:00 11:13:44 BERNICE ity [facility] 2021-11-30 2021-11-30 Office Keanu [facility] 1.2.840.114 [id number] Univers 10:45:00 11:13:44 Visit Bernice Singer HEALTH 350.1.13.10 it y of [place] 4.2.7.2.686 Blaze as GREGOR?BLEA [phone] Ak betsy PAREDES [address] [place] [address] OFFICE [facility] 2021-11-30 2021-11-30 Outpatient R KEANU [facility] [id number] Univers 10:45:00 11:13:44 BERNICE ity [facility] 2021-11-28 2021-11-28 Telephone [email or web address] 1.2.840.114 [id number] Univers 00:00:00 00:00:00 Kayla HEALTH 350.1.13.10 it y of [place] 4.2.7.2.686 Blaze as GREGOR?BLEA [phone] Ak betsy PAREDES [address] [place] [address] OFFICE [facility] 2021-11-28 2021-11-28 Orders Doctor TRANG 1.2.840.114 [id number] Univers 00:00:00 00:00:00 Only Unassigned, DIONICIO 350.1.13.10 ity of Ali Molina [facility] 4.2.7.2.686 Blaze as [phone] [address] 2021-11-27 2021-11-27 Telephone Bolivar [facility] 1.2.840.114 [id number] Univers 00:00:00 00:00:00 Kayla HEALTH 350.1.13.10 it y of [place] 4.2.7.2.686 Blaze as GREGOR?BLEA [phone] Ak betsy PAREDES [address] [place] [address] OFFICE [facility] 2021-11-22 2021-11-22 Orders Doctor TRANG 1.2.840.114 [id number] Univers 00:00:00 00:00:00 Only Unassigned, DIONICIO 350.1.13.10 ity of Ali Molina [facility] 4.2.7.2.686 Blaze as [phone] [address] 2021-11-21 2021-11-21 Telephone [email or web address] 1.2.840.114 [id number] Univers 00:00:00 00:00:00 Kayla L HEALTH 350.1.13.10 it y of [place] 4.2.7.2.686 Blaze as GREGOR?BLEA [phone] Ak betsy PAREDES 198 [facility] OFFICE [facility] 2021-11-21 2021-11-21 Telephone [email or web address] 1.2.840.114 [id number] Univers 00:00:00 00:00:00 Kayla L HEALTH 350.1.13.10 it y of [place] 4.2.7.2.686 Blaze as GREGOR?BLEA [phone] Ak betsy PAREDES 198 [facility] OFFICE [facility] 2021-11-19 2021-11-19 Telephone [facility] 1.2.398.829 [id number] Univers 00:00:00 00:00:00 Bernice S HEALTH 350.1.13.10 it y of [place] 4.2.7.2.686 Blaze as GREGOR?BLEA [phone] Ak betsy PAREDES 198 [facility] OFFICE [facility] 2021-11-19 2021-11-19 Telephone [email or web address] 1.2.840.114 [id number] Univers 00:00:00 00:00:00 Kayla L HEALTH 350.1.13.10 it y of [place] 4.2.7.2.686 Blaze as GREGOR?BLEA [phone] Ak ebtsy PAREDES 198 [facility] OFFICE [facility] 2021-11-12 2021-11-12 Telephone [email or web address] 1.2.840.114 [id number] Univers 00:00:00 00:00:00 Kayla L HEALTH 350.1.13.10 it y of [place] 4.2.7.2.686 Blaze as GREGOR?BLEA [phone] Ak betsy PAREDES 198 [facility] OFFICE [facility] 2021-10-29 2021-10-29 Telephone [email or web address] 1.2.840.114 [id number] Univers 00:00:00 00:00:00 Kayla L HEALTH 350.1.13.10 it y of [place] 4.2.7.2.686 Blaze as GREGOR?BLEA [phone] Me betsy PAREDES 198 [facility] OFFICE [facility] 2021-10-26 2021-10-26 Telephone [email or web address] 1.2.840.114 [id number] Univers 00:00:00 00:00:00 Kayla L HEALTH 350.1.13.10 it y of [place] 4.2.7.2.686 Blaze as GREGOR?BLEA [phone] Ak betsy PAREDES 198 [facility] OFFICE [facility] 2021-10-24 2021-10-24 Outpatient [facility] [id number] Univers 09:30:00 10:20:40 [facility] 2021-10-24 2021-10-24 Office [email or web address] 1.2.840.114 [id number] Univers 09:30:00 10:20:40 Visit Bernice S HEALTH 350.1.13.10 it y of [place] 4.2.7.2.686 Blaze as GREGOR?BLEA [phone] Ak betsy PAREDES [address] [place] [address] OFFICE [facility] 2021-10-24 2021-10-24 Outpatient R [facility] [id number] Univers 09:30:00 10:20:40 BERNICE [facility] 2021-10-24 2021-10-24 Office [facility] 1.2.840.114 [id number] Univers 09:30:00 10:20:40 Visit Bernice S HEALTH 350.1.13.10 it y of [place] 4.2.7.2.686 Blaze as GREGOR?BLEA [phone] Ak betsy PAREDES [address] [place] [address] OFFICE [facility] 2021-10-19 2021-10-19 Telephone [email or web address] 1.2.410.404 [id number] Univers 00:00:00 00:00:00 Bernice S HEALTH 350.1.13.10 it y of [place] 4.2.7.2.686 Blaze as GREGOR?BLEA [phone] Ak betsy PAREDES 198 [facility] OFFICE [facility] 2021-10-18 2021-10-18 Telephone [email or web address] 1.2.516.315 [id number] Univers 00:00:00 00:00:00 Bernice S HEALTH 350.1.13.10 it y of [place] 4.2.7.2.686 Blaze as GREGOR?BLEA [phone] Ak betsy FERNANDEZ 198 [facility] OFFICE [facility] 2021-10-12 2021-10-12 Outpatient R WILLY RENÉE [facility] [id number] Univers 14:00:00 15:00:16 RENÉE AGUILERA [facility] 2021-10-02 2021-10-02 Fabi Colunga [facility] 1.2.903.026 [id number] Univers 00:00:00 00:00:00 [facility] 350.1.13.10 it y of [place] 4.2.7.2.686 Blaze as GREGOR?BLEA [phone] Ak betsy [address] OFFICE [facility] 2021-10-02 2021-10-02 Orders Doctor COSTELLO 1.2.840.114 [id number] Univers 00:00:00 00:00:00 Only Unassigned, DIONICIO 350.1.13.10 ity of Ali Molina [facility] 4.2.7.2.686 Blaze as [phone] [address] 2021-09-27 2021-09-27 Orders Doctor TRANG 1.2.840.114 [id number] Univers 00:00:00 00:00:00 Only Unassigned, DIONICIO 350.1.13.10 ity of [place] [facility] 4.2.7.2.686 Blaze as [phone] [address] 2021-09-24 2021-09-24 Outpatient Shira COLUNGA [facility] [id number] Univers 15:50:00 23:59:00 [facility] 2021-07-02 2021-07-02 (TEL) STLMLC STLMLC [id number] Co mmon 00:00:00 00:00:00 [facility] 2021-06-27 2021-06-27 Outpatient Shira COLUNGA [facility] [id number] Univers 14:15:00 14:15:00 [facility] 2021-06-27 2021-06-27 Outpatient Shira COLUNGA [facility] [id number] Univers 14:15:00 14:15:00 [facility] 2021-06-27 2021-06-27 Office [facility] 1.2.840.114 [id number] Univers 13:39:57 13:54:57 Visit Bernice S HEALTH 350.1.13.10 it y of [place] 4.2.7.2.686 Blaze as GREGOR?BLEA [phone] Ak betsy PAREDES 198 [facility] OFFICE [facility] 2021-06-26 2021-06-26 Outpatient R [facility] [id number] Univers 15:45:00 15:45:00 BERNICE [facility] 2021-06-26 2021-06-26 Outpatient R [facility] [id number] Univers 15:45:00 15:45:00 [facility] 2021-06-25 2021-06-25 Telephone [facility] 1.2.254.719 [id number] Univers 00:00:00 00:00:00 Bernice S [place] 350.1.13.10 i ty of [place].2.[place] [phone] Ak betsy JEAN-BAPTISTE 198 [facility] 2021-05-23 2021-05-23 Telephone [facility] 1.2.601.908 [id number] Univers 00:00:00 00:00:00 Bernice S Health 350.1.13.10 it y of [place] 4.2.7.2.686 Blaze as Gregor?Blea [phone] Ak dicbernard paredes 198 [facility] 2021-05-22 2021-05-22 [facility] 1.2.840.114 [id number] Univers 13:00:00 23:59:00 Encounter Bernice S Health 350.1.13.10 ity of [place] 4.2.7.2.686 Blaze as Gregor?Blea [phone] Ak dical reggie 809 [facility] Office [facility] 2021-05-22 2021-05-22 Outpatient [facility] [id number] Univers 16:15:00 14:56:21 BERNICE [facility] 2021-05-22 2021-05-22 Outpatient R [facility] [id number] Univers 16:15:00 14:56:21 BERNICE dahlia [facility] 2021-05-22 2021-05-22 Office [email or web address] 1.2.840.114 [id number] Univers 12:47:56 14:56:21 Visit Bernice [facility] 350.1.13.10 it y of [place] 4.2.7.2.686 Blaze as Gregor?Blea [phone] Ak dical [facility] 198 [facility] Office [facility] 2021-05-22 2021-05-22 Orders Doctor TRANG 1.2.840.114 [id number] Univers 00:00:00 00:00:00 Only Unassigned, DIONICIO 350.1.13.10 ity of [place] [facility] 4.2.7.2.686 Blaze as [phone] [address] 2021-04-23 2021-04-23 Outpatient Shira [facility] [id number] Univers 10:10:00 10:10:00 ANDREW hills [facility] 2021-04-23 2021-04-23 Imm/Inj Nurse, Adc Pob Immunization [facility] 1.2.840.114 [id number] Univers 10:00:06 10:00:17 Visit Andrew Resendiz 350.1.13 .10 ity [facility] 4.2.7.2.[place] [phone] Ak dical [facility] 421 [facility] 2021-04-02 2021-04-02 Outpatient Shira RESENDIZ [facility] [id number] Univers 14:40:00 14:40:00 ANDREW hills [facility] 2021-04-02 2021-04-02 Imm/Inj Nurse, Adc Pob Immunization [facility] 1.2.840.114 [id number] Univers 13:41:25 13:41:44 Visit Andrew Resendiz 350.1.13 .10 ity [facility] 4.2.7.2.[place] Profess[place] [phone] Ak dical nal 421 [facility] 2021-01-26 2021-01-26 RefANISHA Mccormack 1.2.840.114 [id number] [place] 00:00:00 00:00:00 Lacey DARDENJOSE 350.1.13.58 [facility] Lillie MULTI 9.2.7.2.686 SPECIALTY [id number] CLINIC 1 2021-01-26 2021-01-26 ANISHA Granados 1.2.840.114 [id number] 00:00:00 00:00:00 Lacey DARDENJOSE 350.1.13.58 Lillie TORRES 9.2.7.2.686 SPECIALTY [id number] CLINIC 1 2020-12-18 2020-12-18 Office Timbo [facility] 1.2.840.114 [id number] [place] 09:22:21 12:11:17 Visit ROGERS HaywardBRITTANY 350.1.13.[address] [facility] 9.2.7.2.686 [address] 5 [phone] 7 2020-12-18 2020-12-18 Office Timbo [facility] 1.2.840.114 [id number] 09:22:21 12:11:17 Visit ROGERS HaywardBRITTANY 350.1.13.58 [facility] 9.2.7.2.686 [address] [phone] 7 2020-09-06 2020-09-06 (TEL) STLMLC STLMLC [id number] Co mmon 00:00:00 00:00:00 [facility] 2020-07-20 2020-07-20 (TEL) STLMLC STLMLC [id number] Co mmon 00:00:00 00:00:00 [facility] 2020-07-12 2020-07-12 (TEL) STLMLC STLMLC [id number] Co mmon 00:00:00 00:00:00 [facility] 2020-06-21 2020-06-21 Outpatient STLMLC STLMLC [id number] Common 00:00:00 00:00:00 [facility] 2020-06-12 2020-06-12 Outpatient STLMLC STLMLC [id number] Common 00:00:00 00:00:00 [facility] 2020-06-06 2020-06-06 Outpatient STLMLC STLMLC [id number] Common 00:00:00 00:00:00 Spirit [facility] 2020-01-26 2020-01-26 Emergency , [facility] 1.2.529.994 [id number] [facility] 20:05:19 21:04:00 Calin Meeks 350.1.13.10 i ty of [place] 4.2.7.2.686 [place] [facility] [phone] [address] 2020-01-26 2020-01-26 Emergency , [facility] 1.2.918.610 [id number] 20:05:19 21:04:00 Calin Meeks 350.1.13.10 [place] 4.2.7.2.686 [place] [phone] [facility] 2020-01-26 2020-01-26 Orders Doctor COSTELLO 1.2.840.114 [id number] Univers 00:00:00 00:00:00 Only Unassigned, DIONICIO 350.1.13.10 ity of Ali Mol[facility] 4.2.7.2.686 Blaze as [id number] [address] 2020-01-26 2020-01-26 Orders Doctor COSTELLO 1.2.840.114 [id number] 00:00:00 00:00:00 Only Unassigned, DIONICIO 350.1.13.10 [place]ina [facility] 4.2.7.2.686 [id number] 009 2020-01-20 2020-01-20 Outpatient [facility] [id number] Common 08:00:00 08:00:00 [facility] 2020-01-20 2020-01-20 Orders Doctor TRANG Matthews.2.840.114 [id number] Univers 00:00:00 00:00:00 Only Unassigned, DIONICIO 350.1.13.10 [facility] of [facility] 4.2.7.2.686 Blaze as [phone] [address] 2020-01-20 2020-01-20 Orders Doctor TRANG Bolanos2.840.114 [id number] 43 00:00:00 00:00:00 Only Unassigned, DIONICIO 350.1.13.10 [facility] 4.2.7.2.686 [id number] Results Test Description Test Time Test Comments Results Result Comments Source POCT GLUCOSE (AUTOMATED) 2022-06-12 18:17:12 Test Item Value Reference Range Interpretation Comme nts POCT GLU (test code = 8575694128) 161 mg/dL 70-110 H Lab Interpretation (test code = 14583-5) Abnormal [facility] GLUCOSE (AUTOMATED)2022-06-12 08:00:25 Test Item Value Reference Range Interpretation Comments POCT GLU (test code = 0912305867) 122 mg/dL 70-110 H Lab Interpretation (test code = Abnormal 14314-2) [facility] GLUCOSE (AUTOMATED)2022-06-12 01:58:54 Test Item Value Reference Range Interpretation Comments POCT GLU (test code = 6969925138) 124 mg/dL 70-110 H Lab Interpretation (test code = Abnormal 51036-0) [facility] GLUCOSE (AUTOMATED)2022-06-11 22:59:46 Test Item Value Reference Range Interpretation Comments POCT GLU (test code = 8971423433) 115 mg/dL 70-110 H Lab Interpretation (test code = Abnormal 34243-6) [facility] GLUCOSE (AUTOMATED)2022-06-11 22:59:46 Test Item Value Reference Range Interpretation Comments POCT GLU (test code = 1843667777) 104 mg/dL 70-110 Lab Interpretation (test code = Normal 35467-3) [facility] GLUCOSE (AUTOMATED)2022-06-11 14:11:49 Test Item Value Reference Range Interpretation Comments POCT GLU (test code = 9857386193) 91 mg/dL 70-110 Lab Interpretation (test code = Normal 93682-7) [id number]07:50 Test Item Value Reference Range Interpretation Comments IRON (test code = 8889600659) 39 ug/dL 50-160 L TIBC (test code = 9638294584) 346 ug/dL 250-410 % FE SAT (test code = 1009816601) 11 % 20-50 L Lab Interpretation (test code = Abnormal 96858-3) [facility] [id number] 08:27:06 Test Item Value Reference Range Interpretation Comments FERRITIN (test code = 7.5 ng/mL 11.0-264.0 L [id number]) SRIRAM (test code = SRIRAM) Biotin has been reported to cause a negative bias, interpret results relative to patient's use of biotin. Lab Interpretation (test Abnormal code = 22097-4) [id number] 08:01:40 Test Item Value Reference Range Interpretation Comments NT-proBNP (test code 39 pg/mL See_Comment [Autom ated = 3861858124) message] The system which generated this result transmitted reference range : <=125. The reference range was not used to interpret this result as normal/abnormal . SRIRAM (test code = SRIRAM) Biotin has been reported to cause a negative bias, interpret results relative to patient's use of biotin. Lab Interpretation Normal (test code = 69940-6) [facility]22-06-11 07:59:15 Test Item Value Reference Range Interpretation Comments POCT GLU (test code = 5632617152) 141 mg/dL 70-110 H Lab Interpretation (test code = Abnormal 52451-7) [facility] 07:59:15 Test Item Value Reference Range Interpretation Comments MAGNESIUM (test code = 4459538688) 1.6 mg/dL 1.7-2.4 L Lab Interpretation (test code = Abnormal 04404-6) [facility] 07:59:10 Test Item Value Reference Range Interpretation Comments PHOSPHORUS (test code = 7967208640) 2.6 mg/dL 2.5-5.0 Lab Interpretation (test code = Normal 73352-7) [facility] [id number] 07:59:05 Test Item Value Reference Range Interpretation Comments URIC ACID (test code = 1610345257) 3.0 mg/dL 2.9-6.0 Lab Interpretation (test code = Normal 29259-5) [facility] (NA, K, CL, CO2, GLUCOSE, BUN, CREATININE, CA)2022-06-10 18:34:39 Test Item Value Reference Range Interpretation Comments NA (test code = 139 mmol/L 135-145 9777088918) K (test code = 4.2 mmol/L 3.5-5.0 5800764631) CL (test code = 105 mmol/L 98-108 5191048242) CO2 TOTAL (test code 28 mmol/L 23-31 = 7826833786) AGAP (test code = 2-16 6300821862) BUN (test code = 15 mg/dL 7-23 5585895725) GLUCOSE (test code = 106 mg/dL 70-110 1759514888) CREATININE (test code 0.75 mg/dL 0.50-1.04 = 7272288976) CALCIUM (test code = 9.0 mg/dL 8.6-10.6 1720159145) eGFR (test code = mL/min/1.73m2 0054175981) SRIRAM (test code = SRIRAM) Association of [...] or urine or abnormalities in imaging tests). [facility]68993[facility] (ALB,T.PRO,BILI T,BU/BC,ALT,AST,ALK PHOS)2022-06-10 18:34:39 Test Item Value Reference Range Interpretation Comments TOTAL BILI (test code = 5882272697) 0.4 mg/dL 0.1-1.1 BILI UNCON (test code = 7287396779) 0.2 mg/dL 0.1-1.1 BILI CONJ (test code = 1192326445) 0.0 mg/dL 0.0-0.3 T PROTEIN (test code = 0799138679) 6.9 g/dL 6.3-8.2 ALBUMIN (test code = 3968409904) 4.0 g/dL 3.5-5.0 ALK PHOS (test code = 8316893920) 139 U/L 34-122 H ALTv (test code = 1742-6) 23 U/L 5-35 AST(SGOT) (test code = 0150815898) 21 U/L 13-40 Lab Interpretation (test code = Abnormal 08026-4) [facility] 18:34:39 Test Item Value Reference Range Interpretation Comments LIPASE (test code = 4897616805) 108 U/L 0-220 Lab Interpretation (test code = Normal 38220-9) [facility] WITH [id number] 18:27:20 Test Item Value Reference Range Interpretation Comments WBC (test code = See_Comment [Automated message] 5990-2) The system CSS99 generated this result transmitted ref erence range: 4.30 - 1 1.10 10*3/?L. The re ference range was not u sed to interpret this result as normal/abnor mal. RBC (test code = See_Comment [Automated message] 589-8) The system CSS99 generated this result transmitted ref erence range: [...] RDW-SD (test code 48.3 fL 39.0-49.9 = 82550-1) RDW-CV (test code 15.4 % 12.0-15.5 = 788-0) PLT (test code = See_Comment [Automated message] 777-3) The system whic h generated this result transmitted ref erence range: 166 - 35 8 10*3/?L. The re ference range was not u sed to interpret this result as normal/abnor mal. MPV (test code = 10.4 fL 9.5-12.9 22664-8) NRBC/100 WBC (test See_Comment [Automat ed message] code = 2101482385) The syste m which generated this result transmitted ref erence range: 0.0 - 10 .0 /100 WBCs. The refer ence range was not u sed to interpret this result as normal/abnor mal. NRBC x10^3 (test See_Comment [Automated message] code = 3940045787) The syste m which generated this result transmitted ref erence range: 10*3/?L. The reference range was not used to interpr et this result as normal/abnormal . GRAN MAT (NEUT) % 62.1 % (test code = 770-8) IMM GRAN % (test 0.50 % code = 2560920648) LYMPH % (test code 29.1 % = 736-9) MONO % (test code 7.3 % = 5905-5) EOS % (test code = 0.6 % 713-8) BASO % (test code 0.4 % = 706-2) GRAN MAT 5.30 10*3/uL 1.88-7.09 x10^3(ANC) (test code = 8108286646) IMM GRAN x10^3 0.04 10*3/uL 0.00-0.06 (test code = 0232028522) LYMPH x10^3 (test 2.48 10*3/uL 1.32-3.29 code = 731-0) MONO x10^3 (test 0.62 10*3/uL 0.33-0.92 code = 742-7) EOS x10^3 (test 0.05 10*3/uL 0.03-0.39 code = 711-2) BASO x10^3 (test 0.03 10*3/uL 0.01-0.07 code = 704-7) [facility]"
[2022-08-20] MEDS ORDERED: MORPHINE 4 MG/ML SYR ONE (21:34)
[2022-08-20] MEDS ORDERED: ONDANSETRON 4 MG/2 ML VIAL ONE (21:34)
[2022-08-20] MEDS ORDERED: NA CHLORIDE 0.9% 1,000 ML ONE (21:34)
[2022-08-20 21:49] LABS: Urine Blood Trace-lysed (Negative); Urine Glucose 2+ (Negative); Urine Protein Negative (Negative); Urine pH 5.5 (5.0-7.0)
[2022-08-20 21:52] LABS: Absolute Lymphocytes (CBC) 2.1 K/uL (0.7-4.9); Hematocrit 35.4 % (36.0-45.0); Lymphocytes % 17.1 % (15.3-44.8); MCV 89.8 fL (80-100); MPV 8.4 fL (7.6-11.3); RBC Red Blood Cell Count 3.94 M/uL (3.86-4.86)
[2022-08-20 21:54] LABS: Urine Bacteria <20 /HPF (<20); Urine Mucus 1+ /HPF (None Seen); Urine RBC <5 /HPF (None Seen)
[2022-08-20] MEDS ORDERED: HYDROMORPHONE HCL 1 MG/ML INJ ONE (22:16)
[2022-08-20 22:47] LABS: Albumin 3.1 g/dL (3.4-5.0); Bilirubin Total 0.2 mg/dL (0.2-1.0); Potassium 3.6 mmol/L (3.5-5.1); Protein, Total 6.8 g/dL (6.4-8.2)
[2022-08-20] MEDS ORDERED: KETOROLAC 30 MG/ML INJ ONE (23:50)
[2022-08-21] MEDS ORDERED: HYDROMORPHONE HCL 1 MG/ML INJ ONE (00:26)
[2022-08-21] MEDS ORDERED: CEFTRIAXONE 1000 MG/VIAL ONE (01:11)
--- NOTE | 2022-08-21 05:08 | EDPHYS ---
Physician Documentation [facility] Name: Jazmín Perez Age: 52 yrs Sex: Female : 1970 Arrival Date: 08/20/2022 Time: 20:37 Bed 16 Private MD: ED Physician Krzysztof Em HPI: 08/20 21:35 This 52 yrs old Female presents to ER via Wheelchair with complaints of cp Abdominal Pain. 21:35 The patient presents with abdominal pain right lower quadrant. Onset: The cp symptoms/episode began/occurred 2 hour(s) ago. 21:35 The symptoms do not radiate. Associated signs and symptoms: Pertinent negatives: blood cp in stools, chest pain, constipation, diarrhea, fever, vomiting. The symptoms are described as constant. 21:35 Severity of pain: in the emergency department the pain is unchanged despite home cp interventions. 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 - Social history:: Smoking status: Patient denies any tobacco usage or history of. ROS: 21:40 Constitutional: Negative for body aches, chills, fever, poor PO intake. cp 21:40 Eyes: Negative for injury, pain, redness, and discharge. cp 21:40 ENT: Negative for drainage from ear(s), ear pain, sore throat, difficulty swallowing, difficulty handling secretions. 21:40 Cardiovascular: Negative for chest pain. 21:40 Respiratory: Negative for cough, shortness of breath, wheezing. 21:40 Abdomen/GI: Positive for abdominal pain, Negative for vomiting, diarrhea, constipation, anorexia, black/tarry stool, rectal bleeding. 21:40 : Negative for hematuria, pelvic pain, vaginal bleeding, vaginal discharge. 21:40 All other systems are negative. Exam: 21:45 Constitutional: The patient appears in no acute distress, alert, awake, cp non-diaphoretic, non-toxic, well developed, well nourished, obese. 21:45 Head/Face: Normocephalic, atraumatic. cp 21:45 Eyes: Periorbital structures: appear normal, Conjunctiva: normal, no exudate, no injection, Sclera: no appreciated abnormality, Lids and lashes: appear normal, bilaterally. 21:45 ENT: External ear(s): are unremarkable, Nose: is normal, Mouth: Lips: moist, Oral mucosa: moist, Posterior pharynx: Airway: no evidence of obstruction, patent, swelling, is not appreciated, erythema, is not appreciated, exudate, is not appreciated. 21:45 Chest/axilla: Inspection: normal. 21:45 Cardiovascular: Rate: normal. 21:45 Respiratory: the patient does not display signs of respiratory distress, Respirations: normal, no use of accessory muscles, no retractions, labored breathing, is not present, Breath sounds: are clear throughout, no decreased breath sounds, no stridor, no wheezing. 21:45 Abdomen/GI: Inspection: obese Bowel sounds: active, all quadrants, Palpation: soft, in all quadrants, moderate abdominal tenderness, in the right lower quadrant, rebound tenderness, is not appreciated, involuntary guarding, is not appreciated. 21:45 Back: CVA tenderness, is absent. 21:45 Neuro: Orientation: to person, place \T\ time. Mentation: is normal. Vital Signs: 21:06 Temp 98.5(O); Weight 106.14 kg (R); Height 5 ft. 2 in. (157.48 cm) (R); Pain 10/10; ll3 21:10 BP 133 / 72; Pulse 97; Resp 18 S; Pulse Ox 97% on R/A; as6 22:00 BP 125 / 70; Pulse 94; Resp 18 S; Pulse Ox 99% on R/A; as6 23:17 BP 105 / 60; Pulse 95; Resp 19 S; Pulse Ox 96% on R/A; as6 18 00:26 BP 102 / 62; Pulse 94; Resp 18; Pulse Ox 92% on R/A; as6 08/20 21:06 Body Mass Index 42.80 (106.14 kg, 157.48 cm) ll3 MDM: 08/20 21:10 Patient medically screened. cp 22:00 Differential diagnosis: appendicitis, non-specific abd pain, Pyelonephritis, cp Ureterolithiasis, urinary tract infection. 08/21 00:52 Data reviewed: vital signs, nurses notes, lab test result(s), radiologic studies, CT cp scan. 00:52 I considered the following discharge prescriptions or medication management in the emergency department Medications were administered in the Emergency Department. See MAR. Test considered but Not performed: Other Details US. Care significantly affected by the following chronic conditions: Diabetes, Obesity. Counseling: I had a detailed discussion with the patient and/or guardian regarding: the historical points, exam findings, and any diagnostic results supporting the discharge/admit diagnosis, lab results, radiology results, the need for outpatient follow up, a family practitioner, to return to the emergency department if symptoms worsen or persist or if there are any questions or concerns that arise at home. Response to treatment: Pain improved. Review of labs, CT abdomen/pelvis do not give indication of significant causes of patient's complaints. Will discharge to home for continued monitor. Patient may return if pain/symptoms worsen for reevaluation. 08/20 21:28 Order name: CBC with Diff; Complete Time: 22:11 cp 08/21 00:04 Interpretation: Normal except: WBC 12.30; HGB 11.2; HCT 35.4; MCHC 31.6; RDW 16.6; NEUT cp A 9.0. 08/20 21:28 Order name: CMP; Complete Time: 22:51 cp 08/21 00:05 Interpretation: Normal except: CL 113; GLUC 126; GFR 73; AST 11; ALB 3.1; GLOB 3.7; A/G cp 0.8. 08/20 21:28 Order name: Lipase; Complete Time: 22:51 cp 08/20 21:28 Order name: Urine Microscopic Only; Complete Time: 22:11 cp 08/21 00:05 Interpretation: Reviewed. 08/20 21:50 Order name: Urine Dipstick-Ancillary; Complete Time: 22:11 EDMS 08/21 00:05 Interpretation: Normal except: UGLUC 2+; UBLD Trace-lysed. 08/20 21:55 Order name: Urine --Ancillary (enter results); Complete Time: 22:11 mw2 08/20 22:52 Order name: CT Abd/Pelvis - IV Contrast Only cp 08/20 21:28 Order name: IV Saline Lock; Complete Time: 21:49 cp 08/20 21:28 Order name: Labs collected and sent; Complete Time: 21:49 cp 08/20 21:28 Order name: Urine Dipstick-Ancillary (obtain specimen); Complete Time: 21:49 cp 08/20 21:28 Order name: Urine Test (obtain specimen); Complete Time: 21:49 cp 08/20 21:58 Order name: Labs - recollect needed: blue top needed; Complete Time: 22:12 mw2 Administered Medications: 08/20 21:49 Drug: Zofran (Ondansetron) 4 mg Route: IVP; Site: left forearm; as6 21:49 Drug: morphine 4 mg Route: IVP; Infused Over: 4 mins; Site: left forearm; as6 21:49 Drug: NS 0.9% 1000 ml Route: IV; Rate: 1 bolus; Site: left forearm; as6 22:17 Drug: Dilaudid (HYDROmorphone) 1 mg Route: IVP; Site: left forearm; as6 23:49 Drug: Ketorolac 30 mg Route: IVP; Site: left forearm; as6 08/21 00:25 Drug: Dilaudid (HYDROmorphone) 1 mg Route: IVP; Site: left forearm; as6 01:13 Drug: Rocephin (cefTRIAXone) 1 grams Route: IV; Rate: calculated rate; Site: left jj7 forearm; Disposition: 04:51 Co-signature as Attending Physician, Krzysztof Em MD. rn Disposition Summary: 08/21/22 00:53 Discharge Ordered Location: Home cp Problem: new cp Symptoms: have improved cp Condition: Stable cp Diagnosis - Lower abdominal pain, unspecified cp - Acute cystitis cp Followup: cp - With: Private Physician - When: 1 - 2 days - Reason: Recheck today's complaints Discharge Instructions: - Discharge Summary Sheet cp - Abdominal Pain, Adult cp - Urinary Tract Infection, Adult cp Forms: - Medication Reconciliation Form cp - Thank You Letter cp - Antibiotic Education cp - Prescription Opioid Use cp Prescriptions: - Diclofenac Sodium 75 mg Oral Tablet Sustained Release - take 1 tablet by ORAL route 2 times per day; 30 tablet; Refills: 0, Product cp Selection Permitted - Macrobid 100 mg Oral Capsule - take 1 capsule by ORAL route every 12 hours for 7 days; 14 capsule; Refills: 0, cp Product Selection Permitted - Tramadol 50 mg Oral Tablet - take 1 tablet by ORAL route every 8 hours as needed; 12 tablet; Refills: 0, cp Product Selection Permitted Signatures: Dispatcher [employer] EDMS Krzysztof Em MD MD rn Onel Gibbs PA PA cp Connie Carlin mw2 Jeet Calloway RN RN as6 Demetrio Minor RN RN ll3 Maria E Blackwell RN RN jj7 Corrections: (The following items were deleted from the chart) :08/19 21:35 This 52 yrs old Female presents to ER via Wheelchair with cp complaints of Abdominal Pain. cp 08/21 23:24 08/19 21:35 The patient presents with abdominal pain right lower quadrant, cp cp 08/21 23:24 08/19 21:35 Onset: The symptoms/episode began/occurred 2 hour(s) ago, cp cp
--- NOTE | 2022-08-21 05:08 | ER ---
Nurse's Notes [facility] Name: Jazmín Perez Age: 52 yrs Sex: Female : 1970 Arrival Date: 08/20/2022 Time: 20:37 Bed 16 Private MD: Diagnosis: Lower abdominal pain, unspecified;Acute cystitis Presentation: 08/20 21:05 Chief complaint: Chief complaint: Patient states: C/o RLQ pain, N/V, and dizziness ll3 since 1930. 21:06 Coronavirus screen: Vaccine status: Patient reports receiving the 2nd dose of the covid ll3 vaccine. muscle pain, nausea, vomiting. Ebola Screen: No symptoms or risks identified at this time. Initial Sepsis Screen: Does the patient meet any 2 criteria? No. Patient's initial sepsis screen is negative. Does the patient have a suspected source of infection? No. Patient's initial sepsis screen is negative. Risk Assessment: Do you want to hurt yourself or someone else? Patient reports no desire to harm self or others. Onset of symptoms was August 20, 2022 at 19:30. 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 - Social history:: Smoking status: Patient denies any tobacco usage or history of. Screenin:29 [facility] ED Fall Risk Assessment (Adult) Score/Fall Risk Level 0 - 2 = Low Risk. Abuse as6 screen: Denies threats or abuse. Denies injuries from another. Nutritional screening: No deficits noted. Tuberculosis screening: No symptoms or risk factors identified. Assessment: 21:30 General: Appears uncomfortable, obese, Behavior is crying, restless. Pain: Complains of as6 pain in right lower quadrant Pain radiates to right flank Quality of pain is described as sharp, shooting. Neuro: Level of Consciousness is awake, alert, obeys commands, Oriented to person, place, time, situation. Cardiovascular: Capillary refill < 3 seconds Patient's skin is warm and dry. Respiratory: Respiratory effort is even, unlabored, Respiratory pattern is regular, symmetrical. GI: Reports lower abdominal pain, nausea. 23:19 General: pt restless in the bed, moaning. provider aware . as6 Vital Signs: 21:06 Temp 98.5(O); Weight 106.14 kg (R); Height 5 ft. 2 in. (157.48 cm) (R); Pain 10/10; ll3 21:10 BP 133 / 72; Pulse 97; Resp 18 S; Pulse Ox 97% on R/A; as6 22:00 BP 125 / 70; Pulse 94; Resp 18 S; Pulse Ox 99% on R/A; as6 23:17 BP 105 / 60; Pulse 95; Resp 19 S; Pulse Ox 96% on R/A; as6 08/21 00:26 BP 102 / 62; Pulse 94; Resp 18; Pulse Ox 92% on R/A; as6 08/20 21:06 Body Mass Index 42.80 (106.14 kg, 157.48 cm) ll3 ED Course: 08/20 20:37 Patient arrived in ED. ja2 21:00 Onel Gibbs PA is PHCP. cp 21:00 Krzysztof Em MD is Attending Physician. cp 21:03 Jeet Calloway, BERNABE is Primary Nurse. as6 21:08 Triage completed. ll3 21:08 Arm band placed on Patient placed in an exam room, on a stretcher, on pulse oximetry. ll3 21:30 Placed in gown. Bed in low position. Call light in reach. Side rails up X2. as6 21:40 Inserted saline lock: 20 gauge in left forearm, using aseptic technique. Blood as6 collected. 21:49 CBC with Diff Sent. as6 21:49 CMP Sent. as6 21:49 Lipase Sent. as6 21:49 Urine Microscopic Only Sent. as6 23:38 CT Abd/Pelvis - IV Contrast Only In Process Unspecified. EDMS 08/21 01:18 No provider procedures requiring assistance completed. IV discontinued, intact, jj7 bleeding controlled, No redness/swelling at site. Pressure dressing applied. Administered Medications: 08/20 21:49 Drug: Zofran (Ondansetron) 4 mg Route: IVP; Site: left forearm; as6 21:49 Drug: morphine 4 mg Route: IVP; Infused Over: 4 mins; Site: left forearm; as6 21:49 Drug: NS 0.9% 1000 ml Route: IV; Rate: 1 bolus; Site: left forearm; as6 22:17 Drug: Dilaudid (HYDROmorphone) 1 mg Route: IVP; Site: left forearm; as6 23:49 Drug: Ketorolac 30 mg Route: IVP; Site: left forearm; as6 08/21 00:25 Drug: Dilaudid (HYDROmorphone) 1 mg Route: IVP; Site: left forearm; as6 01:13 Drug: Rocephin (cefTRIAXone) 1 grams Route: IV; Rate: calculated rate; Site: left jj7 forearm; Medication: 08/20 21:30 VIS not applicable for this client. Outcome: 08/21 00:53 Discharge ordered by . yony 01:18 Discharged to home ambulatory. jj7 01:18 Condition: improved 01:18 Discharge instructions given to patient, Instructed on discharge instructions, follow up and referral plans. medication usage, Demonstrated understanding of instructions, follow-up care, medications, Prescriptions given X 2. 01:19 Patient left the ED. jj7 Signatures: Dispatcher [employer] EDMS Onel Gibbs PA PA cp Alexander, Jessica ja2 Slawson, Ashby, RN RN as6 Demetrio Minor RN RN ll3 Maria E Blackwell RN RN jj7 Corrections: (The following items were deleted from the chart) 08/20 21:08 21:05 Chief complaint: ll3 ll3
[2022-08-21 06:12] VITALS: TEMP 98.5
[2022-08-21 06:16] VITALS: BP 102/62; O2SAT 92
--- NOTE | 2022-08-21 10:48 | RAD REPORT ---
EXAM DESCRIPTION: CT of the abdomen and pelvis with contrast CLINICAL HISTORY: Right lower abdomen pain. COMPARISON: CT of the abdomen and pelvis without contrast from July 10, 2022. CLINICAL HISTORY: Right lower abdomen pain. COMPARISON: CT of the abdomen and pelvis without contrast from July 10, 2022. TECHNIQUE: CT of the abdomen and pelvis was performed following intravenous administration of iodina billy contrast. Arterial phase images through the abdomen, and portal venous phase images through the a bdomen and pelvis were obtained. Oral contrast was not administered. Axial, coronal, and sagittal sof t tissue window reconstructions were created and sent to PACS. This exam was performed according to our departmental dose-optimization program, which includes autom ated exposure control, adjustment of the mA and/or kV according to patient size and/or use of iterati ve reconstruction technique. FINDINGS: Thoracic: No significant abnormality. Hepatobiliary: No concerning hepatic lesion identified. The portal veins are patent. The gallbladder is surgically absent. No biliary ductal dilatation. Pancreas: Unremarkable. Spleen: Unremarkable. Gastrointestinal: No evidence of bowel obstruction or perienteric inflammation. The appendix is chito l. Mild left colonic diverticulosis. Small to moderate amount of fecal material throughout the colon. Adrenals: No abnormality identified in either adrenal gland. Renal: No concerning parenchymal abnormality in either kidney. Punctate nonobstructive calculus in th e mid right kidney. No hydronephrosis or ureteral calculi bilaterally. Bladder/Reproductive: Few punctate foci of gas within the urinary bladder. Unremarkable CT appearance of the uterus and ovaries. Vascular/Lymphatics: No lymphadenopathy identified by CT size criteria. Abdominal aorta is normal in caliber. Musculoskeletal: No concerning osseous lesion identified. Small periumbilical fat-containing hernia w ith no associated inflammatory changes. Moderate bilateral hip osteoarthrosis, worse on the left. Fluid / peritoneum: No significant free fluid. No free intraperitoneal air identified. IMPRESSION 1. Few punctate foci of gas in the urinary bladder. Correlate for potential cystitis. 2. Normal appendix. Electronically signed by: Dinah Long MD 08/21/2022 12:00 AM MENDING CARRIER Due to temporary technical issues with the PACS/Fluency reporting system, reports are being signed by the in house radiologists without review as a courtesy to insure prompt reporting. The interpreting radiologist is fully responsible for the content of the report.
== END 2022-08-21 01:19 | disposition home or self-care (01) ==
LOC: ER 20:35
DX: N30.00 Acute cystitis without hematuria (principal); E11.9 Type 2 diabetes mellitus without complications
CPT/HCPCS: 85025; 36415; 81025; 83690; 80053; 74177; Q9967; J1170; J7030; J2405; 81003; 81015

== ENCOUNTER 2022-08-26 14:02 | Emergency (ER) | payer OTHER ==
--- OUTSIDE RECORDS SUMMARY | 2022-08-26 14:07 | XMS REPORT | Continuity of Care Document ---
:[address] [facility] t Address [address] [place] [address] Dr. Rosales [address] [place] [address] Care Team Providers Name Role Phone AZUCENA [...] Trang Hunt MD Attending Clinician Doctor Unassigned, [place] Attending Clinician Unavailable Pob, Adc Lab Main [...] Number Effective Date Expiration Date Lucrecia clement FORMERLY [facility] [id number] 2021 [facility] 00:00[facility] [id number] 2015 HEALTH CHOICE 00:00:00 AMBETTER [id number] 2020 [facility] 00:00:00 PLAN Ambetter from [id number] Common Spi rit [facility] AMBETTER [id number] 2019 FROM [place] 00:00:00 HEALTH Ambetter from [id number] Common Spi rit [facility] Ambetter from [id number] Common Spi rit [facility] Ambetter from [id number] Common Spi rit [facility] Problems Condition Condition Condition Status Onset Resolution [...] Added automatic ally from request for surgery [id number] Hip pain, Hip pain, Disease Active UT [...] ity of 00:00: [place] 00 Medical Branch MCFP rn long term care Disease Active Uni vers (current) (current) 8-28 [...] pain knee pain 3- ity of 00:00: [place] [address] Medical Branch Bilateral Bilateral Disease Active Uni vers knee pain knee pain 3- ity of 00:00: [place] [address] Medical Branch [id number] Pain, Problem Active Commo n [id number] joint, Spirit hand, left - [facility] [id number] [place] [id number] osteoarthr Spirit itis of - [facility] left hip [facility] [id number] Trigger Problem Active Commo n finger, Spirit right ring - [facility] finger [facility] [id number] Pain, Problem Active Commo n [id number] joint, Spirit hand, - [facility] right [facility] Allergies, Adverse Reactions, Alerts Allergy Allergy Status Severity Reaction(s) Onset Inactive Treating Comm ents Source Name Type Date Date Clinician CODEINE DRUG Active N/V Univers INGREDI 2- ity of 00:00: [place] [address] Medical Branch Codeine Propensi Active Nausea And UT ty to Vomiting 09-07 Health adverse 00:00: reaction 00 s Social History Social Habit Start Date Stop Date Quantity Comments Source History [facility] Health Alcohol Std Drinks History [facility] Health Alcohol Binge History of Common Spirit - Tobacco Use [facility] Sex Assigned At Common Sp mingo - [facility] History [facility] Food 2022-06-13 2022-06-13 1 Univers ity of Worry 00:00:00 00:00:00 [facility] Branch History [facility] Food 2022-06-13 2022-06-13 1 Univers ity of Scarcity 00:00:00 00:00:00 [place] [facility] History SDOH 2022-06-13 2022-06-13 2 University o f Transport Med 00:00:00 00:00:00 [place] [facility] History SDWI 2022-06-13 2022-06-13 2 University o f Transport Non-Med 00:00:00 00:00:00 [place] M edical Branch Tobacco use and 2022-06-11 2022-06-11 Smokeless tobacco Un iversity of exposure 00:00:00 00:00:00 non-user [facility] Exposure to 2022-05-31 2022-06-10 Not sure University of SARS-CoV-2 00:00:00 19:45:00 [facility] (event) Branch Education 2022-06-10 2022-06-10 21 [facility] :00:00 00:00:00 [facility] Alcohol intake 2020-12-18 2020-12-18 Lifetime [facility] 00:00:00 00:00:00 non-drinker (finding) History SDOH 2020-12-18 2020-12-18 1 [facility] Alcohol Frequency 00:00:00 00:00:00 Smoking Status Start Date Stop Date Source Never smoked tobacco [facility] Medications Ordered Filled Start Stop Current Ordering Indication Dosage Frequency Signature Comments Components Source Medication Medication Date Date Medication? Clinician (SIG) Name Name cefTRIAXone 2021-08- Yes 1000mg 1,000 mg, Univers (ROCEPHIN) 08-13 IV ity of 1,000 mg in 18:00: 17:[facility] [place] NaCl 0.9% 00 :00 Q24H ABX, Medic al (NS) 50 mL 2 doses, Branc h MINI-BAG First dose (after last modificati on) on Sneha 06/13/22 at 1200, Last dose on Fri06/14/22 at 1200, Administer over 30 Minutes, 50 mL
Reas on for Anti-Infec tive: Documented Infection< br>Documen billy Infection Site: Urine
D uration of Therapy: 7 days lactobacill 2021-08- Yes [id number] .5mg Take 1 Univers us 08-13-11 tablet by ity of acidophilus 00:00: 05:59 mouth in [place] 00 :00 the Medical morning [place] for 30 days. polyethylen 2021-08- Yes [id number] 17g Take 1 Univers e glycol 08-13-11 Packet by ity o f 3350 17 00:00: 05:59 mouth in [place] gram powder 00 :00 the Medical morning [place] for 30 days. lactobacill 2021-08- Yes [id number] .5mg Take 1 Univers us - 12-11 tablet by ity of acidophilus 00:00: 05:59 mouth [place] 00 :[place] the Medical morning [place] for 30 days. polyethylen 2021-08- Yes [id number] 17g Take 1 Univers e glycol 1-10 [...] mouth 2 ity of tablet 16:08: (two) [place] 30 times Medical daily. Branch DULoxetine 2021-08 Yes 60mg Take 60 mg U nivers 60 mg 09 by mouth ity of capsule 16:08: daily. [place] 30 Medical Branch proMETHazin 2021-08 Yes [id number] 25mg Take 1 Univers e 25 mg 09 tablet by ity of tablet 00:00: mouth [place] 00 every 4 Medical (four) Branch hours as needed for N/V unresponsi ve to Ondansetro n. proMETHazin 2021-08 Yes [id number] 25mg Take 1 Univers e 25 mg 09 tablet by ity of tablet 00:00: mouth [place] 00 every 4 Medical (four) Branch hours as needed for N/V unresponsi ve to Ondansetro n. docusate 2021-08- Yes [id number] 100mg Take 1 Univers 100 mg 08-12 12-10 capsule by ity of capsule 00:00: 05:59 mouth in [place] 00 :00 the Medical morning Branch and 1 capsule in the evening. Do all this for 30 days. docusate 2021-08- Yes [id number] 100mg Take 1 Univers 100 mg 08-12 12-10 capsule by ity of capsule 00:00: 05:59 mouth in [place] 00 :00 the Medical morning Branch and [...] Indication s: acute pain ciprofloxac 2021-08- Yes [id number] 500mg Take 1 Univers in HCl 500 08-12 tablet by ity of mg tablet 00:00: 05:59 mouth [place] 00 :00 every 12 Medical (twelve) Branch hours for 7 days. metroNIDAZO 2021-08- Yes [id number] 500mg Take 2 Univers LE 250 mg [...] Indication s: acute pain ciprofloxac 2021-08- Yes [id number] 500mg Take 1 Univers in HCl 500 08-12 tablet by ity of mg tablet 00:00: 05:59 mouth [place] 00 :00 every 12 Medical (twelve) Branch hours for 7 days. metroNIDAZO 2021-08- Yes [id number] 500mg Take 2 Univers LE 250 mg [...] 40 mg 00 First dose Medical on [facility] 06/11/22 at 0900, Until Discontinu ed, Routine DULoxetine 2021-08 Yes 60mg 60 mg, Unive rs (CYMBALTA) 08 Oral, ity of capsule 60 15:00: DAILY, [place] mg 00 First dose Medical on [facility] 06/11/22 at 0900, Until Discontinu ed, Routine lactobacill 2021-08 Yes .5mg 0.5 mg, Uni vers us 08 Oral, ity of acidophilus 15:00: DAILY, [place] tablet 0.5 00 First dose Med ical mg on [facility] 06/11/22 at 0900, Until Discontinu ed, Routine Sliding 2021-08 Yes Subcutaneo Univ ers Scale 1-08 us, TID ity of Insulin - 14:00: MEALS, [place] Lispro 00 First dose Medical (HumaLOG) + on [facility] Fsbg 06/11/22 at Testing 0800, Until Discontinu ed, Routine morpHINE (4 2021-08 Yes 4mg 4 mg, Slow Univers mg/mL) 08-11 IV Push, ity of injection 4 12:52: Q4HPRN, [place] mg 08 Starting Medical on [facility] 06/11/22 at 0652, Until Discontinu ed, Routine, Pain (scale 7-10) cefTRIAXone 2021-08 No 1000mg 1,000 mg, Univers (ROCEPHIN) 08-11 11-09 IV ity of 1,000 mg in 08:00: 18:21 Pig[place]back, [place] NaCl 0.9% 00 :49 Q12H ABX, Medic [...] 06:15: First dose [place] mg 00 on [facility] 06/11/22 at Branch 0015, Until Discontinu ed, Routine gabapentin 2021-08 Yes 200mg 200 mg, Uni vers (NEURONTIN) 108 Oral, BID, it y of capsule 200 06:15: First dose [place] mg 00 on [facility] 06/11/22 at Branch 0015, Until Discontinu ed, Routine cyclobenzap 2021-08 Yes 10mg 10 mg, Univ ers rine 108 Oral, BID, ity of (FLEXERIL) 06:15: First dose [place] tablet 10 00 on [facility] mg 06/11/22 at Branch 0015, Until Discontinu ed, Routine ondansetron 2021-08 Yes 4mg 4 mg, Slow Univers (ZOFRAN 08-11 IV Push, ity of (PF)) 06:06: Q6HPRN, [place] injection 4 47 Starting Medi danielle mg on [facility] 06/11/22 at 0006, Until Discontinu [...] ity o f (PF)) 05:58: 12:52 Push, [place] injection 16 :20 Q4HPRN, Medical 50 mcg [...] IV ity of (REGLAN) 03:17: 21:27 Push, [place] injection 15 :54 TIDPRN, Medical 10 mg [...] 00 :00 dose, On Medi danielle mg [facility] 06/10/22 at 1715, KUNAL morpHINE (4 2021-08 No 4mg 4 mg, Slow Univers mg/mL) 08-10 IV Push, ity of injection 4 22:15: 21:21 ONCE, 1 [place] mg 00 :00 dose, On Medical [facility] 06/10/22 at 1615, STAT cefTRIAXone 2021-08- No 1000mg 1,000 mg, Univers (ROCEPHIN) 08-10 IV ity of 1,000 mg in 20:15: 20:51 [place], [place] NaCl 0.9% 00 :00 ONCE, 1 Medical [...] [place] mg 00 :00 dose, On Medical [facility] 06/10/22 at 1330, STAT ondansetron 2021-08 No 4mg 4 mg, Slow Univers (ZOFRAN 08-10 IV Push, ity of (PF)) 19:30: 19:29 ONCE, 1 [place] injection 4 00 :00 dose, On Medi danielle mg [facility] 06/10/22 at 1330, KUNAL FENTanyl PF 2021-08 No 50ug 50 mcg, Un james (SUBLIMAZE 08-10 Slow IV ity o f (PF)) 18:01: 18:02 Push, [place] injection 00 :00 ONCE, 1 Medical 50 mcg dose, On Branch Fri06/10/22 at 1215, Routine cefpodoxime 2021-08 No [id number] 100mg Take 1 Univers 100 mg 08-10 tablet by ity of tablet 00:00: 00:00 mouth in [place] 00 :00 the Medical morning Branch and 1 tablet in the evening. Do all this for 7 days. amitriptyli Yes amitriptyl Univers ne 150 mg 6-13 ine 150 mg ity of tablet 09:33: tablet [place] 45 Take 1 Medical tablet Branch every day by oral route for 30 days. Fesoterodin Yes Toviaz 4 Un jaems e (TOVIAZ) 6-13 mg ity of 4 [...] by ity of capsule 00:00: mouth 2 [place] (two) Medical times Branch daily. gabapentin 2022-0 Yes 100mg Take 100 Un james 100 mg 4-28 mg by ity of capsule 00:00: mouth 2 [place] (two) Medical times Branch daily. gabapentin 2022-0 Yes 100mg Take 100 Un james 100 mg 4-28 mg by ity of capsule 00:00: mouth 2 [place] (two) Medical times Branch daily. lidocaine-p 2021-0 Yes APPLY TO Un james rilocaine 2-28 AFFECTED ity of 2.5-2.5 % 00:00: AREA EVERY [place] cream 00 DAY Medical NEEDED Branch eszopiclone 2021-0 Yes 1mg Take 1 mg U nivers 1 mg tablet 2-28 by mouth ity of 00:00: daily. [place] [facility] Branch lidocaine-p 2021-0 Yes APPLY TO Un james rilocaine 2-28 AFFECTED ity of 2.5-2.5 % 00:00: AREA EVERY [place] cream 00 DAY Medical NEEDED Branch eszopiclone 2021-0 Yes 1mg Take 1 mg U nivers 1 mg tablet 2-28 by mouth ity of 00:00: daily. [place] [facility] Branch lidocaine-p 2-0 Yes APPLY TO Un james rilocaine 2-28 AFFECTED ity of 2.5-2.5 % 00:00: AREA EVERY [place] cream 00 DAY Medical NEEDED Branch eszopiclone 2021-0 Yes 1mg Take 1 mg U nivers 1 mg tablet 2-28 by mouth ity of 00:00: daily. [address] Branch methylPREDN 2-0 Yes [id number] 84mg Take 21 Univers ISolone 2-21 tablets by ity of (MEDROL, 00:00: mouth Medardo CARRASCO,) 4 mg 00 SEE-INSTRU Med ical tablets CTIONS. Branch follow package directions methylPREDN 2-0 2- No [id number] 84mg Take 21 Univers ISolone 2-21 11-08 tablets by ity o f (MEDROL, 00:00: 00:00 mouth Med[place] CARRASCO,) 4 mg 00 :00 SEE-INSTRU Med ical tablets CTIONS. Branch follow package directions methylPREDN 2020-08 Yes [id number] 84mg Take 21 Univers ISolone 0-19 [id number] tablets by ity of (MEDROL, 00:00: mouth [place] LUNA,) 4 mg 00 SEE-INSTRU Med ical tablets CTIONS. Branch follow package directions methylPREDN 2020-08- No [id number] 84mg Take 21 Univers ISolone 0-19 11-08 [id number] tablets by ity of (MEDROL, 00:00: 00:00 mouth [place] LUNA,) 4 mg 00 :00 SEE-INSTRU Med ical tablets CTIONS. Branch follow package directions methocarbam Yes [id number] 750mg [id number] Take 1 [place] ol 5-17 9103 [id number] tablet Health (Robaxin) 00:00: 3D (750 mg 750 MG 00 total) by tablet mouth 3 (three) times a day if needed for muscle spasms for up to 10 days. methocarbam 2020- No [id number] 750mg Q.[id number] Take 1 [place] ol 5-17 05-28 9103 [id number] tablet Health (Robaxin) 00:00: 04:59 3D (750 mg 750 MG 00 :00 total) by tablet mouth 3 (three) times a day if needed for muscle spasms for up to 10 days. metFORMIN Yes [facility] (Glucophage 5-13 Health ) 1000 MG 00:00: tablet 00 metFORMIN Yes [place] (Glucophage 5-13 Health ) 1000 MG 00:00: tablet 00 benzonatate 2019- Yes [id number] 100mg Take 1 Univers 100 mg 6-24 capsule by ity of capsule 00:00: mouth 3 [place] 00 (three) Medical times Branch daily as needed for Cough. chlorphenir 2019-0 Yes [id number] 4mg Take 1 Univers amine 4 mg 6-24 tablet by ity of tablet 00:00: mouth [place] 00 every 6 Medical (six) Branch hours as needed for Allergies or Runny nose. benzonatate 0 2021- No [id number] 100mg Take 1 Univers 100 mg 6-24 11-08 capsule by ity of capsule 00:00: 00:00 mouth 3 [place] 00 :00 (three) Medical times Branch daily as needed for Cough. chlorphenir 2019-0 2- No [id number] 4mg Take 1 Univers amine 4 mg [...] by mouth ity of tablet 00:00: daily. [place] Medical Branch metFORMIN Yes TAKE 1 Univer [...] Co mmon [place] defined Spirit - [facility] Metformin Metformin Yes Ronen not Co mmon HCl HCl [place] Spirit - [facility] Naproxen Naproxen Yes Ron[place] not Comm on [place] defined Spirit - [facility] Amoxicillin Amoxicillin Yes Ronen not Common -Pot -Pot [place] Spirit Clavulanate Clavulanate - [facility] Hydrochloro Hydrochloro Yes Ronen not Common thiazide thiazide [place] defined [facility] Cyclobenzap Cyclobenzap Yes Ronen not Common rine HCl rine HCl [place] defined [facility] Vitamin D Vitamin D Yes Ronen not Co mmon (Ergocalcif (Ergocalcif [place] defined Spirit satya) satya) [facility] Ferrous Ferrous Yes Ronen not Common Sulfate Sulfate [place] defined [facility] Amitriptyli Amitriptyli Yes Ronen not Common ne HCl ne HCl [place] defined [facility] Methocarbam Methocarbam Yes Ronen not Common ol ol [place] defined [facility] Ondansetron Ondansetron Yes Ronen not Common HCl HCl [place] defined [facility] BusPIRone BusPIRone Yes Ronen not Co mmon HCl HCl [place] defined [facility] Diclofenac Diclofenac Yes Ronen not Common Sodium Sodium [place] defined [facility] Benzonatate Benzonatate Yes Ronen not Common [place] defined [facility] Gabapentin Gabapentin Yes Ronen not Common [place] defined [facility] Ketorolac Ketorolac No Ketorolac Tromethamin [...] y of Vaccine Quad IM 3+ 00:00:00 [facility] Influenza Virus 2021-06-24 Completed Universit y of Vaccine Quad IM 3+ 00:00:00 [facility] SARS-COV-2 COVID-19 2021-04-23 Completed Unive rsity of PFIZER VACCINE 00:00:00 [facility] SARS-COV-2 COVID-19 2021-04-23 Completed Unive rsity of ALY/J&J VACCINE 00:00:00 [facility] SARS-COV-2 COVID-19 2021-04-23 Completed Unive rsity of PFIZER VACCINE 00:00:00 [facility] SARS-COV-2 COVID-19 2021-04-23 Completed Unive rsity of ALY/J&J VACCINE 00:00:00 [facility] SARS-COV-2 COVID-19 2021-04-23 Completed Unive rsity of PFIZER VACCINE 00:00:00 [facility] SARS-COV-2 COVID-19 2021-04-23 Completed Unive rsity of ALY/J&J VACCINE 00:00:00 [facility] SARS-COV-2 COVID-19 2021-04-02 Completed Unive rsity of PFIZER VACCINE 00:00:00 [facility] SARS-COV-2 COVID-19 2021-04-02 Completed Unive rsity of ALY/J&J VACCINE 00:00:00 [facility] SARS-COV-2 COVID-19 2021-04-02 Completed Unive rsity of PFIZER VACCINE 00:00:00 [facility] SARS-COV-2 COVID-19 2021-04-02 Completed Unive rsity of ALY/J&J VACCINE 00:00:00 [facility] SARS-COV-2 COVID-19 2021-04-02 Completed Unive rsity of PFIZER VACCINE 00:00:00 [facility] SARS-COV-2 COVID-19 2021-04-02 Completed Unive rsity of ALY/J&J VACCINE 00:00:00 [facility] Influenza Virus 2020-05-12 Completed Universit y of Vaccine Quad IM 3+ 00:00:00 [facility] Influenza Virus 2020-05-12 Completed Universit y of Vaccine Quad IM 3+ 00:00:00 [facility] Influenza Virus 2020-05-12 Completed Universit y of Vaccine Quad IM 3+ 00:00:00 [facility] LIDOCAINE HCL LIDOCAINE HCL 2020-01-20 Completed Common S pirit - 10MG/ML 10MG/ML 08:45:00 [facility] LIDOCAINE HCL LIDOCAINE HCL 2020-01-20 Completed Common S pirit - 10MG/ML 10MG/ML 08:45:00 [facility] LIDOCAINE HCL LIDOCAINE HCL 2020-01-20 Completed Common S pirit - 10MG/ML 10MG/ML 08:45:00 [facility] LIDOCAINE HCL LIDOCAINE HCL 2020-01-20 Completed Common S pirit - 10MG/ML 10MG/ML 08:45:00 [facility] LIDOCAINE HCL LIDOCAINE HCL 2020-01-20 Completed Common S pirit - 10MG/ML 10MG/ML 08:45:00 [facility] LIDOCAINE HCL LIDOCAINE HCL 2020-01-20 Completed Common S pirit - 10MG/ML 10MG/ML 08:45:00 [facility] Depo-Medrol Depo-Medrol 2020-01-20 Completed Common Spiri t - (Methylprednisolone (Methylprednisolone 08:44:[address] [facility] 40mg ) 40mg [facility] Depo-Medrol Depo-Medrol 2020-01-20 Completed Common Spiri t - (Methylprednisolone (Methylprednisolone 08:44:[address] [facility] ) 40mg ) 40mg [facility] Depo-Medrol Depo-Medrol 2020-01-20 Completed Common Spiri t - (Methylprednisolone (Methylprednisolone 08:44:[address] [facility] ) 40mg ) 40mg [facility] Depo-Medrol Depo-Medrol 2020-01-20 Completed Common Spiri t - (Methylprednisolone (Methylprednisolone 08:43:[address] [facility] ) 40mg ) 40mg [facility] Depo-Medrol Depo-Medrol 2020-01-20 Completed Common Spiri t - (Methylprednisolone (Methylprednisolone 08:43:[address] [facility] ) 40mg ) 40mg [facility] Depo-Medrol Depo-Medrol 2020-01-20 Completed Common Spiri t - (Methylprednisolone (Methylprednisolone 08:43:[address] [facility] ) 40mg ) 40mg [facility] Influenza Virus 2019-09-13 Completed Universit y of Vaccine Quad IM 3+ 00:00:00 [facility] Influenza Virus 2019-09-13 Completed Universit y of Vaccine Quad IM 3+ 00:00:00 [facility] Influenza Virus 2019-09-13 Completed Universit y of Vaccine Quad IM 3+ 00:00:00 [facility] Vital Signs Vital Name Observation Time Observation Value Comments Source Systolic blood 2022-06-12 18:06:00 155 mm[Hg] Univer sity of pressure [facility] Diastolic blood 2022-06-12 18:06:00 84 mm[Hg] Unive rsity of pressure [facility] Heart rate 2022-06-12 18:06:00 90 /min Universi ty of [facility] Body temperature 2022-06-12 18:06:00 36 [place] [facility] Respiratory rate 2022-06-12 18:06:00 18 /min [facility] Oxygen saturation in 2022-06-12 18:06:00 94 /min [facility] Arterial blood by [facility] Pulse oximetry Branch Body weight 2022-06-11 09:20:00 113.49 kg Universi ty of [facility] BMI 2022-06-11 09:20:00 47.27 kg/m2 Universi ty of [facility] Body height 2022-06-11 01:52:00 154.9 cm Universi ty of [facility] Systolic blood 2022-04-19 13:32:00 127 mm[Hg] Univer sity of [facility] Diastolic blood 2022-04-19 13:32:00 67 mm[Hg] Unive rsity of [facility] Heart rate 2022-04-19 13:32:00 88 /min Universi ty of [facility] Body height 2022-04-19 13:32:00 154.9 cm Universi ty of [facility] Body weight 2022-04-19 13:32:00 117.028 kg Universi ty of [facility] BMI 2022-04-19 13:32:00 48.75 kg/m2 Universi ty of [facility] Body height 2020-12-18 16:17:00 [facility] 2020-12-18 16:17:00 115[facility]667 [facility] BMI 2020-12-18 16:17:00 46.64 kg[facility]m2 [facility] Body height 2020-12-18 16:17:00 [facility]5 [facility] 2020-12-18 16:17:00 115.667 [facility] BMI 2020-12-18 16:17:00 46.64 kg/m2 [facility] h Procedures Procedure Date / Time Performing Clinician Source Performed POCT GLUCOSE (AUTOMATED) 2022-06-12 18:08:00 Annamaria Barker [facility] BASIC METABOLIC PANEL 2022-06-12 09:27:00 Jimmy Rowland [facility] (NA, K, CL, CO2, Medical Branch GLUCOSE, BUN, CREATININE, CA) CBC WITH DIFF 2022-06-12 09:27:00 Jimmy Rowland [facility] POCT GLUCOSE (AUTOMATED) 2022-06-12 07:56:00 Annamaria Barker [facility] POCT GLUCOSE (AUTOMATED) 2022-06-12 01:45:00 Annamaria Barker [facility] POCT GLUCOSE (AUTOMATED) 2022-06-11 22:56:00 Annamaria Barker [facility] POCT GLUCOSE (AUTOMATED) 2022-06-11 18:11:00 Annamaria Barker [facility] POCT GLUCOSE (AUTOMATED) 2022-06-11 14:05:00 Annamaria Barker [facility] PHOSPHORUS 2022-06-11 10:40:00 Bhaskar [facility] CREATINE KINASE 2022-06-11 10:40:00 Bhaskar [facility] AMYLASE 2022-06-11 10:40:00 Bhaskar [facility] LIPASE 2022-06-11 10:40:00 Bhaskar [facility] MAGNESIUM 2022-06-11 10:40:00 Bhaskar [facility] COMP. METABOLIC PANEL 2022-06-11 10:40:00 Robbi Muro [facility] ([id number]) [facility] CBC WITH DIFF 2022-06-11 10:40:00 Bhaskar [facility] GLYCOSYLATED HEMOGLOBIN 2022-06-11 10:40:00 Jimmy Rowland [facility] (A1C) [facility] N-TERMINAL PRO-BNP 2022-06-11 10:40:00 Robbi Muro [facility] POCT GLUCOSE (AUTOMATED) 2022-06-11 07:56:00 Annamaria Barker [facility] URINE CULTURE 2022-06-11 05:18:00 Bhaskar [facility] PROTHROMBIN TIME / INR 2022-06-11 03:24:00 Bhaskar ender [facility] LACTIC ACID WHOLE BLOOD 2022-06-11 03:18:00 Bhaskar [facility] C-REACTIVE PROTEIN 2022-06-11 03:17:00 Bhaskar [facility] SEDIMENTATION RATE 2022-06-11 03:17:00 Bhaskar [facility] PROCALCITONIN 2022-06-11 03:17:00 Bhaskar [facility] US OVARY TORSION 2022-06-10 22:01:56 Brodie Clemons [facility] URINALYSIS 2022-06-10 19:14:00 Brodie Clemons [facility] CT ABDOMEN PELVIS WO 2022-06-10 18:36:36 Brodie Clemons [facility] CONTRAST [facility] PHOSPHORUS 2022-06-10 17:54:00 Bhaskar [facility] URIC ACID 2022-06-10 17:54:00 Bhaskar [facility] LIPASE 2022-06-10 17:54:00 Brodie Clemons [facility] MAGNESIUM 2022-06-10 17:54:00 Bhaskar [facility] FERRITIN SERUM 2022-06-10 17:54:00 Bhaskar [facility] HEPATIC FUNCTION PANEL 2022-06-10 17:54:00 Brodie Clemons [facility] ([id number]) (ALB,T.PRO,BILI [facility] Branch T,BU/BC,ALT,AST,ALK PHOS) BASIC METABOLIC PANEL 2022-06-10 17:54:00 Brodie Clemons [facility] (NA, K, CL, CO2, Medical Branch GLUCOSE, BUN, CREATININE, CA) IRON PANEL 2022-06-10 17:54:00 Robbi Muro [facility] CBC WITH DIFF 2022-06-10 17:54:00 Brodie Clemons [facility] N-TERMINAL PRO-BNP 2022-06-10 17:54:00 Robbi Muro [facility] CONSENT/REFUSAL FOR 2022-06-10 17:38:54 Doctor Unassigned, No Un [facility] DIAGNOSIS AND TREATMENT Name Medical Branch Encounters Start End Encounter Admission Attending Care Care Encounter Source Date/Time Date/Time Type Type Clinicians Facility Department ID 2022-01-04 Outpatient Shira LUTZ, [facility] SOR [id number] Univers 12:25:16 KAYLA [facility] 2021-08-29 Outpatient STLMLC STLMLC Common 12:51:44 [id number] [facility] 2021-08-29 Outpatient STLMLC STLMLC Common 11:59:56 [id number] [facility] 2021-08-29 Outpatient STLMLC STLMLC Common 11:28:05 [id number] [facility] 2021-08-29 Outpatient STLMLC STLMLC Common 11:27:12 [id number] [facility] 2021-06-01 Emergency [facility] [id number] Univers 02:46:06 [facility] 2020-12-[address] [facility] [id number] [place] 09:37:27 [facility] 2020-12-[address] [facility] [id number] [place] 09:37:27 [facility] 2020-12-[address] [facility] [id number] [place] 09:37:27 [facility] 2020-12-[address] [facility] [id number] [place] 12:03:34 [facility] 2020-12-[address] [facility] [id number] [place] 12:03:34 [facility] 2020-12-[address] [facility] [id number] [place] 12:00:05 [facility] 2020-12-[address] [facility] [id number] [place] 04:06:39 [facility] 2022-06-13 2022-06-13 Transition TOM Cornejo 1.2.840.114 [id number] Univers 00:00:00 00:00:00 of Care Chelo SIDDIQIY 350.1.13.10 it y of [place] [id number] [facility] 403 Branch 2022-06-10 2022-06-12 Outpatient X MJ [facility] [id number] Univers 11:37:00 16:00:[address] [facility] 2022-06-10 2022-06-12 Emergency Deonte Jackson [facility] 1.2.840.1 [id number] Univers 11:37:00 16:00:00 Annamaria Barker 350.1.13.10 ity of [place] MARTINEZ [id number] [facility] [address] [place] 2022-04-19 2022-04-19 Outpatient [facility] [id number] Univers 08:55:00 23:59:[facility] 2022-04-19 2022-04-19 Outpatient Sh[facility] [id number] Univers 08:55:00 23:59:00 [facility] 2022-04-19 2022-04-19 [facility] 1.2.840.114 [id number] Univers 08:45:00 09:00:[address] [facility] 350.1.13.10 it y of [place] 4.2.7.2.686 Blaze [place] GREGOR?BLEA [id number] Ri betsy [address] MEDICAL OFFICE [facility] 2022-02-25 2022-02-25 Outpatient Sh[facility] [id number] Univers 15:15:00 15:15:[address] [facility] 2022-02-21 2022-02-21 Outpatient Sh[facility] [id number] Univers 10:45:00 10:45:00 BERNICE [facility] 2022-02-18 2022-02-18 Outpatient Shira WIGGINS [facility] [id number] Univers 10:30:00 10:30:00 CHIZACH ity o f [facility] 2022-01-18 2022-01-18 Outpatient R [facility] [id number] Univers 10:00:00 10:00:00 CLAYTON ity of [facility] 2022-01-17 2022-01-17 [facility] 1.2.357.828 [id number] Univers 00:00:00 00:00:00 Kayla Serra [facility] 350.1.13.10 it y of [facility] 4.2.7.2.686 Blaze as GREGOR?BLEA [id number] [address] MEDICAL OFFICE BUILDING 2022-01-14 2022-01-14 [facility] [id number] Univers 06:59:00 09:15:00 KAYLA ity of [facility] 2022-01-14 2022-01-14 Hospital [facility] 1.2.840.114 [id number] Univers 06:59:00 09:15:00 Encounter Kayla MEEKS 350.1.13.10 ity of [place] SURGICAL [id number] [facility] 071 Branch 2022-01-14 2022-01-14 Surgery [facility] 1.2.391.811 [id number] Univers 08:20:00 09:12:00 Kayla MEEKS 350.1.13.10 i ty of [place] SURGICAL [id number] [facility] [address] [place] 2022-01-14 2022-01-14 Anesthesia Bharath Padgett [facility] 1.2.840.11 [id number] Univers 08:25:00 08:39:00 Event Trang Hunt 350.1.13.10 ity of [facility] [place].2.7.2.[place]ICAL [id number] [facility] [address] [place] 2022-01-14 2022-01-14 Orders Doctor COSTELLO 1.2.840.114 [id number] Univers 00:00:00 00:00:00 Only Unassigned, DIONICIO 350.1.13.[address] [place] [facility] 4.2.7.2.686 Blaze as [id number] [facility] 009 Branch 2022-01-11 2022-01-11 Hospital Bolivar [facility] 1.2.840.114 [id number] Univers 07:39:32 23:59:00 Encounter Kayla MEEKS 350.1.13.10 ity of [facility] 4.2.7.2.[address] [facility] [id number] [facility] 807 Branch 2022-01-11 2022-01-11 Outpatient R BOLIVAR [facility] [id number] Univers 07:39:18 23:59:[address] 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 114 [id number] Univers 08:15:00 08:30:00 Only Kayla Lutz 350.1.13.10 ity of [facility] 4.2.7.2.[address] [facility] [id number] [facility] 353 Branch 2022-01-11 2022-01-11 Outpatient R BOLIVAR [facility] [id number] Univers 08:15:00 08:15:[address] [facility] 2022-01-11 2022-01-11 Telephone Bolivar [facility] 1.2.840.114 [id number] Univers 00:00:00 00:00:00 Kayla Serra HEALTH 350.1.13.10 it y of [facility] 4.2.7.2.686 Blaze as GREGOR?BLEA [phone] Ri dical KNEY [address] [place] MEDICAL OFFICE BUILDING 2022-01-04 2022-01-04 Office [facility] 1.2.840.114 [id number] Univers 11:15:00 11:30:00 Visit Bernice S HEALTH 350.1.13.10 it y of [place] 4.2.7.2.686 Blaze as GREGOR?BLEA [id number] Ri betsy PAREDES 198 [facility] OFFICE [facility] 2022-01-04 2022-01-04 Outpatient Shira COLUNGA [facility] [id number] Univers 11:15:00 11:15:[address] [facility] 2022-01-04 2022-01-04 Outpatient Shira COLUNGA [facility] [id number] Univers 11:15:00 11:15:00 [facility] 2022-01-04 2022-01-04 Prep [facility] 1.2.840.114 [id number] Univers 00:00:00 00:00:00 Surgery Kayla Serra [facility] 350.1.13.10 it y of [place] 4.2.7.2.686 Blaze as GREGOR?BLEA [phone] Ri betsy PAREDES 198 [facility] 2021-12-20 2021-12-20 Outpatient R BOLIVAR [facility] [id number] Univers 10:00:00 10:00:00 [facility] 2021-12-11 2021-12-11 Telephone [facility] 1.2.840.114 [id number] Univers 00:00:00 00:00:00 Kayla Serra HEALTH 350.1.13.10 it y of [place] 4.2.7.2.686 Blaze as GREGOR?BLEA [id number] Ri betsy PAREDES 198 [facility] 2021-12-07 2021-12-07 Outpatient Shira COLUNGA [facility] [id number] Univers 10:23:58 23:59:[address] [facility] 2021-12-07 2021-12-07 [facility] 1.2.840.114 [id number] Univers 10:23:58 23:59:00 Encounter Bernice FUENTESTON 350.1.13.10 ity of [place].2.[place]ART[place] [id number] [facility] [address] [place] 2021-11-30 2021-11-30 Outpatient Shira COLUNGA [facility] [id number] Univers 10:45:00 11:13:[address] [facility] 2021-11-30 2021-11-30 Office Keanu [facility] 1.2.840.114 [id number] Univers 10:45:00 11:13:44 Visit Bernice Singer HEALTH 350.1.13.10 it y of [place] 4.2.7.2.686 Blaze as GREGOR?BLEA [phone] Ri betsy PAREDES [address] [place] [address] OFFICE [facility] 2021-11-30 2021-11-30 Outpatient R KEANU [facility] [id number] Univers 10:45:00 11:13:[address] [facility] 2021-11-28 2021-11-28 Telephone [facility] 1.2.840.114 [id number] Univers 00:00:00 00:00:00 Kayla HEALTH 350.1.13.10 it y of [place] 4.2.7.2.686 Blaze as GREGOR?BLEA [phone] Ri betsy PAREDES [address] [place] [address] OFFICE [facility] 2021-11-28 2021-11-28 Orders Doctor TRANG 1.2.840.114 [id number] Univers 00:00:00 00:00:00 Only Unassigned, DIONICIO 350.1.13.10 ity of [place] 4.2.7.2.686 Blaze as [phone] [address] 2021-11-27 2021-11-27 Telephone Bolivar [facility] 1.2.840.114 [id number] Univers 00:00:00 00:00:00 Kayla HEALTH 350.1.13.10 it y of [place] 4.2.7.2.686 Blaze as GREGOR?BLEA [phone] Ri betsy PAREDES [address] [place] [address] OFFICE [facility] 2021-11-22 2021-11-22 Orders Doctor TRANG 1.2.840.114 [id number] Univers 00:00:00 00:00:00 Only Unassigned, DIONICIO 350.1.13.10 ity of [place] [facility] 4.2.7.2.686 Blaze as [phone] [address] 2021-11-21 2021-11-21 Telephone [facility] 1.2.840.114 [id number] Univers 00:00:00 00:00:00 Kayla L HEALTH 350.1.13.10 it y of [place] 4.2.7.2.686 Blaze as GREGOR?BLEA [phone] Ri betsy PAREDES 198 [facility] OFFICE [facility] 2021-11-21 2021-11-21 Telephone [facility] 1.2.840.114 [id number] Univers 00:00:00 00:00:00 Kayla L HEALTH 350.1.13.10 it y of [place] 4.2.7.2.686 Blaze as GREGOR?BLEA [id number] Ri betsy PAREDES 198 [facility] OFFICE [facility] 2021-11-19 2021-11-19 Telephone [facility] 1.2.146.183 [id number] Univers 00:00:00 00:00:00 Bernice S HEALTH 350.1.13.10 it y of [place] 4.2.7.2.686 Blaze as GREGOR?BLEA [phone] Ri betsy PAREDSE 198 [facility] OFFICE [facility] 2021-11-19 2021-11-19 Telephone [facility] 1.2.840.114 [id number] Univers 00:00:00 00:00:00 Kayla L HEALTH 350.1.13.10 it y of [place] 4.2.7.2.686 Blaze as GREGOR?BLEA [phone] Ri betsy PAREDES 198 [facility] OFFICE [facility] 2021-11-12 2021-11-12 Telephone [facility] 1.2.840.114 [id number] Univers 00:00:00 00:00:00 Kayla L HEALTH 350.1.13.10 it y of [place] 4.2.7.2.686 Blaze as GREGOR?BLEA [phone] Ri betsy PAREDES 198 [facility] OFFICE [facility] 2021-10-29 2021-10-29 Telephone [facility] 1.2.840.114 [id number] Univers 00:00:00 00:00:00 Kayla L HEALTH 350.1.13.10 it y of [place] 4.2.7.2.686 Blaze as GREGOR?BLEA [id number] Me betsy PAREDES 198 [facility] OFFICE [facility] 2021-10-26 2021-10-26 Telephone [facility] 1.2.840.114 [id number] Univers 00:00:00 00:00:00 Kayla L HEALTH 350.1.13.10 it y of [place] 4.2.7.2.686 Blaze as GREGOR?BLEA [phone] Ri betsy PAREDES 198 [facility] OFFICE [facility] 2021-10-24 2021-10-24 Out[facility] [id number] Univers 09:30:00 10:20:40 [facility] 2021-10-24 2021-10-24 Office [facility] 1.2.840.114 [id number] Univers 09:30:00 10:20:40 Visit Bernice S HEALTH 350.1.13.10 it y of [place] 4.2.7.2.686 Blaze as GREGOR?BLEA [phone] Ri betsy PAREDES [address] [place] [address] OFFICE [facility] 2021-10-24 2021-10-24 Outpatient [facility] [id number] Univers 09:30:00 10:20:40 BERNICE [facility] 2021-10-24 2021-10-24 Office [facility] 1.2.840.114 [id number] Univers 09:30:00 10:20:40 Visit Bernice S HEALTH 350.1.13.10 it y of [place] 4.2.7.2.686 Blaze as GREGOR?BLEA [phone] Ri betsy PAREDES [address] [place] [address] OFFICE [facility] 2021-10-19 2021-10-19 Telephone [facility] 1.2.945.924 [id number] Univers 00:00:00 00:00:00 Bernice S HEALTH 350.1.13.10 it y of [place] 4.2.7.2.686 Blaze as GREGOR?BLEA [phone] Ri betsy PAREDES 198 [facility] OFFICE [facility] 2021-10-18 2021-10-18 Telephone [facility] 1.2.943.606 [id number] Univers 00:00:00 00:00:00 Bernice S HEALTH 350.1.13.10 it y of [place] 4.2.7.2.686 Blaze as GREGOR?BLEA [phone] Ri betsy FERNANDEZ 198 [facility] OFFICE [facility] 2021-10-12 2021-10-12 Outpatient R WILLY RENÉE [facility] [id number] Univers 14:00:00 15:00:16 RENÉE AGUILERA [facility] 2021-10-02 2021-10-02 Fabi Colunga [facility] 1.2.953.475 [id number] Univers 00:00:00 00:00:00 [facility] 350.1.13.10 it y of [place] 4.2.7.2.686 Blaze as GREGOR?BLEA [id number] Ri betsy [address] OFFICE [facility] 2021-10-02 2021-10-02 Orders Doctor COSTELLO 1.2.840.114 [id number] Univers 00:00:00 00:00:00 Only Unassigned, DIONICIO 350.1.13.10 ity of [place] [facility] 4.2.7.2.686 Blaze as [phone] [address] 2021-09-27 2021-09-27 Orders Doctor TRANG 1.2.840.114 [id number] Univers 00:00:00 00:00:00 Only Unassigned, DIONICIO 350.1.13.10 ity of [place] [facility] 4.2.7.2.686 Blaze as [phone] [address] 2021-09-24 2021-09-24 Outpatient Shira COLUNGA [facility] [id number] Univers 15:50:00 23:59:00 [facility] 2021-07-02 2021-07-02 (TEL) STLMLC STLMLC [id number] Co mmon 00:00:00 00:00:00 [facility] 2021-06-27 2021-06-27 Outpatient Shira COLUNGA [facility] [id number] Univers 14:15:00 14:15:00 [facility] 2021-06-27 2021-06-27 Outpatient Shira COLUNGA [facility] [id number] Univers 14:15:00 14:15:00 [facility] 2021-06-27 2021-06-27 Office [facility] 1.2.840.114 [id number] Univers 13:39:57 13:54:57 Visit Bernice S HEALTH 350.1.13.10 it y of [place] 4.2.7.2.686 Blaze as GREGOR?BLEA [phone] Ri betsy PAREDES 198 [facility] OFFICE [facility] 2021-06-26 2021-06-26 Out[facility] [id number] Univers 15:45:00 15:45:00 BERNICE [facility] 2021-06-26 2021-06-26 Out[facility] [id number] Univers 15:45:00 15:45:00 [facility] 2021-06-25 2021-06-25 Telephone [facility] 1.2.889.030 [id number] Univers 00:00:00 00:00:00 Bernice S [place] 350.1.13.10 i ty of [place].2.[place] [phone] Ri betsy JEAN-BAPTISTE 198 [facility] 2021-05-23 2021-05-23 Telephone [facility] 1.2.275.500 [id number] Univers 00:00:00 00:00:00 Bernice S Health 350.1.13.10 it y of [place] 4.2.7.2.686 Blaze as Gregor?Blea [phone] Ri dicbernard paredes 198 [facility] 2021-05-22 2021-05-22 [facility] 1.2.840.114 [id number] Univers 13:00:00 23:59:00 Encounter Bernice S Health 350.1.13.10 ity of [place] 4.2.7.2.686 Blaze as Gregor?Blea [phone] Ri dical reggie [address] [facility] Office [facility] 2021-05-22 2021-05-22 Outpatient [facility] [id number] Univers 16:15:00 14:56:21 BERNICE [facility] 2021-05-22 2021-05-22 Outpatient [facility] [id number] Univers 16:15:00 14:56:[address] [facility] 2021-05-22 2021-05-22 Office [facility] 1.2.840.114 [id number] Univers 12:47:56 14:56:21 Visit Bernice [facility] 350.1.13.10 it y of [place] 4.2.7.2.686 Blaze as Gregor?Blea [phone] Ri dical [facility] 198 [facility] Office [facility] 2021-05-22 2021-05-22 Orders Doctor TRANG 1.2.840.114 [id number] Univers 00:00:00 00:00:00 Only Unassigned, DIONICIO 350.1.13.[address] [place] [facility] 4.2.7.2.686 Blaze as [phone] [address] 2021-04-23 2021-04-23 Outpatient [facility] [id number] Univers 10:10:00 10:10:[address] [facility] 2021-04-23 2021-04-23 Imm/Inj Nurse, Adc Pob Immunization [facility] 1.2.840.114 [id number] Univers 10:00:06 10:00:17 Visit Andrew Resendiz 350.1.13 .10 ity [facility] [place].2.7.2.[place] [phone] Ri dical [facility] 2021-04-02 2021-04-02 Outpatient Shira RESENDIZ [facility] [id number] Univers 14:40:00 14:40:[address] [facility] 2021-04-02 2021-04-02 Imm/Inj Nurse, Adc Pob Immunization [facility] 1.2.840.114 [id number] Univers 13:41:25 13:41:44 Visit Andrew Resendiz 350.1.13 .10 ity [facility] 4.2.7.2.[place] [phone] Ri dical nal 421 [facility] 2021-01-26 2021-01-26 ANISHA Granados 1.2.840.114 [id number] 00:00:00 00:00:00 [facility] 350.1.13.58 Lillie TORRES 9.2.7.2.686 SPECIALTY [id number] CLINIC 1 2021-01-26 2021-01-26 RefANISHA Mccormack 1.2.840.114 [id number] [place] 00:00:00 00:00:00 Lacey DARDENJOSE 350.1.13.58 [facility] Lillie TORRES 9.2.7.2.686 SPECIALTY [id number] CLINIC 1 2020-12-18 2020-12-18 Office Timbo [facility] 1.2.840.114 [id number] 09:22:21 12:11:17 Visit PAUL Hayward 350.1.13.58 [facility] 9.2.7.2.686 [address] [phone] 7 2020-12-18 2020-12-18 Office Timbo [facility] 1.2.840.114 [id number] UT 09:22:21 12:11:17 Visit [facility].13.58 [facility] 9.2.7.2.686 [address] [id number] 7 2020-09-06 2020-09-06 (TEL) STLMLC STLMLC [id number] Co mmon 00:00:00 00:00:00 [facility] 2020-07-20 2020-07-20 (TEL) STLMLC STLMLC [id number] Co mmon 00:00:00 00:00:00 [facility] 2020-07-12 2020-07-12 (TEL) STLMLC STLMLC [id number] Co mmon 00:00:00 00:00:00 [facility] 2020-06-21 2020-06-21 Outpatient STLMLC STLMLC [id number] Common 00:00:00 00:00:00 [facility] 2020-06-12 2020-06-12 Outpatient STLMLC STLMLC [id number] Common 00:00:00 00:00:00 [facility] 2020-06-06 2020-06-06 Outpatient STLMLC STLMLC [id number] Common 00:00:00 00:00:00 [facility] 2020-01-26 2020-01-26 Emergency , [facility] 1.2.579.504 [id number] [facility] 20:05:19 21:04:00 Calin Meeks 350.1.13.10 i ty of [place] 4.2.7.2.686 [place] [facility] [phone] [address] 2020-01-26 2020-01-26 Emergency , [facility] 1.2.456.307 [id number] 20:05:19 21:04:00 Calin Meeks 350.1.13.10 [place] 4.2.7.2.686 [place] [phone] [facility] 2020-01-26 2020-01-26 Orders Doctor COSTELLO 1.2.840.114 [id number] Univers 00:00:00 00:00:00 Only Unassigned, DIONICIO 350.1.13.10 ity of [place] [facility] 4.2.7.2.686 Blaze as [phone] [address] 2020-01-26 2020-01-26 Orders Doctor COSTELLO 1.2.840.114 [id number] 00:00:00 00:00:00 Only Unassigned, DIONICIO 350.1.13.[address] [place] [facility] 4.2.7.2.686 [id number] 009 2020-01-20 2020-01-20 Outpatient [facility] [id number] Common 08:00:00 08:00:00 [facility] 2020-01-20 2020-01-20 Orders Doctor TRANG Matthews.2.840.114 [id number] Univers 00:00:00 00:00:00 Only Unassigned, DIONICIO 350.1.13.10 ity of [place] [facility] 4.2.7.2.686 Blaze as [phone] [address] 2020-01-20 2020-01-20 Orders Doctor TRANG Bolanos2.840.114 [id number] 00:00:00 00:00:00 Only Unassigned, DIONICIO 350.1.13.10 [place] [facility] 4.2.7.2.686 [phone] 009 Results Test Description Test Time Test Comments Results Result Comments Source POCT GLUCOSE (AUTOMATED) 2022-06-12 18:17:12 Test Item Value Reference Range Interpretation Comme nts POCT GLU (test code = 8245812090) 161 mg/dL 70-110 H Lab Interpretation (test code = 99246-3) Abnormal [facility] GLUCOSE (AUTOMATED)2022-06-12 08:00:25 Test Item Value Reference Range Interpretation Comments POCT GLU (test code = 4805959563) 122 mg/dL 70-110 H Lab Interpretation (test code = Abnormal 32929-3) [facility] GLUCOSE (AUTOMATED)2022-06-12 01:58:54 Test Item Value Reference Range Interpretation Comments POCT GLU (test code = 9416745398) 124 mg/dL 70-110 H Lab Interpretation (test code = Abnormal 96405-3) [facility] GLUCOSE (AUTOMATED)2022-06-11 22:59:46 Test Item Value Reference Range Interpretation Comments POCT GLU (test code = 3349041530) 115 mg/dL 70-110 H Lab Interpretation (test code = Abnormal 74545-7) [facility] GLUCOSE (AUTOMATED)2022-06-11 22:59:46 Test Item Value Reference Range Interpretation Comments POCT GLU (test code = 2090849993) 104 mg/dL 70-110 Lab Interpretation (test code = Normal 84859-9) [facility] GLUCOSE (AUTOMATED)2022-06-11 14:11:49 Test Item Value Reference Range Interpretation Comments POCT GLU (test code = 9773738079) 91 mg/dL 70-110 Lab Interpretation (test code = Normal 12606-3) [id number]:07:50 Test Item Value Reference Range Interpretation Comments IRON (test code = 3605539532) 39 ug/dL 50-160 L TIBC (test code = 8135067422) 346 ug/dL 250-410 % FE SAT (test code = 4718082189) 11 % 20-50 L Lab Interpretation (test code = Abnormal 71425-4) [facility] [id number] 08:27:06 Test Item Value Reference Range Interpretation Comments FERRITIN (test code = 7.5 ng/mL 11.0-264.0 L [id number]) SRIRAM (test code = SRIRAM) Biotin has been reported to cause a negative bias, interpret results relative to patient's use of biotin. Lab Interpretation (test Abnormal code = 69275-2) [facility] [id number] 08:01:40 Test Item Value Reference Range Interpretation Comments NT-proBNP (test code 39 pg/mL See_Comment [Autom ated = [id number]) message] The system which generated this result transmitted reference range : <=125. The reference range was not used to interpret this result as normal/abnormal . SRIRAM (test code = SRIRAM) Biotin has been reported to cause a negative bias, interpret results relative to patient's use of biotin. Lab Interpretation Normal (test code = 09503-7) [facility] 07:59:15 Test Item Value Reference Range Interpretation Comments POCT GLU (test code = 6046136937) 141 mg/dL 70-110 H Lab Interpretation (test code = Abnormal 04276-5) [facility] 07:59:15 Test Item Value Reference Range Interpretation Comments MAGNESIUM (test code = 0892309956) 1.6 mg/dL 1.7-2.4 L Lab Interpretation (test code = Abnormal 18014-5) [facility] 07:59:10 Test Item Value Reference Range Interpretation Comments PHOSPHORUS (test code = 3713831681) 2.6 mg/dL 2.5-5.0 Lab Interpretation (test code = Normal 60463-3) [id number] 07:59:05 Test Item Value Reference Range Interpretation Comments URIC ACID (test code = 7371570744) 3.0 mg/dL 2.9-6.0 Lab Interpretation (test code = Normal 60918-3) [facility] (NA, K, CL, CO2, GLUCOSE, BUN, CREATININE, CA)2022-06-10 18:34:39 Test Item Value Reference Range Interpretation Comments NA (test code = 139 mmol/L 135-145 0431417953) K (test code = 4.2 mmol/L 3.5-5.0 5847519433) CL (test code = 105 mmol/L 98-108 7383770142) CO2 TOTAL (test code 28 mmol/L 23-31 = 6125541312) AGAP (test code = 2-16 7162883423) BUN (test code = 15 mg/dL 7-23 1722408082) GLUCOSE (test code = 106 mg/dL 70-110 1602810039) CREATININE (test code 0.75 mg/dL 0.50-1.04 = 2518334266) CALCIUM (test code = 9.0 mg/dL 8.6-10.6 6956230523) eGFR (test code = mL/min/1.73m2 8189363601) SRIRAM (test code = SRIRAM) Association of [...] or urine or abnormalities in imaging tests). [facility]64136[facility] (ALB,T.PRO,BILI T,BU/BC,ALT,AST,ALK PHOS)2022-06-10 18:34:39 Test Item Value Reference Range Interpretation Comments TOTAL BILI (test code = 4000237250) 0.4 mg/dL 0.1-1.1 BILI UNCON (test code = 5470408662) 0.2 mg/dL 0.1-1.1 BILI CONJ (test code = 4832975743) 0.0 mg/dL 0.0-0.3 T PROTEIN (test code = 1707814896) 6.9 g/dL 6.3-8.2 ALBUMIN (test code = 9331207350) 4.0 g/dL 3.5-5.0 ALK PHOS (test code = 1823372358) 139 U/L 34-122 H ALTv (test code = 1742-6) 23 U/L 5-35 AST(SGOT) (test code = 7495403061) 21 U/L 13-40 Lab Interpretation (test code = Abnormal 50578-7) [facility] 18:34:39 Test Item Value Reference Range Interpretation Comments LIPASE (test code = 9772603040) 108 U/L 0-220 Lab Interpretation (test code = Normal 10214-0) [facility] WITH [id number] 18:27:20 Test Item Value Reference Range Interpretation Comments WBC (test code = See_Comment [Automated message] 6090-2) The system [employer] generated this result transmitted ref erence range: 4.30 - 1 1.10 10*3/?L. The re ference range was not u sed to interpret this result as normal/abnor mal. RBC (test code = See_Comment [Automated message] 409-8) The system [employer] generated this result transmitted ref erence range: [...] RDW-SD (test code 48.3 fL 39.0-49.9 = 06176-4) RDW-CV (test code 15.4 % 12.0-15.5 = 788-0) PLT (test code = See_Comment [Automated message] 777-3) The system whic h generated this result transmitted ref erence range: 166 - 35 8 10*3/?L. The re ference range was not u sed to interpret this result as normal/abnor mal. MPV (test code = 10.4 fL 9.5-12.9 87298-8) NRBC/100 WBC (test See_Comment [Automat ed message] code = 5837114148) The syste m which generated this result transmitted ref erence range: 0.0 - 10 .0 /100 WBCs. The refer ence range was not u sed to interpret this result as normal/abnor mal. NRBC x10^3 (test See_Comment [Automated message] code = 1849871175) The syste m which generated this result transmitted ref erence range: 10*3/?L. The reference range was not used to interpr et this result as normal/abnormal . GRAN MAT (NEUT) % 62.1 % (test code = 770-8) IMM GRAN % (test 0.50 % code = 2182554312) LYMPH % (test code 29.1 % = 736-9) MONO % (test code 7.3 % = 5905-5) EOS % (test code = 0.6 % 713-8) BASO % (test code 0.4 % = 706-2) GRAN MAT 5.30 10*3/uL 1.88-7.09 x10^3(ANC) (test code = 6999947327) IMM GRAN x10^3 0.04 10*3/uL 0.00-0.06 (test code = 8662653256) LYMPH x10^3 (test 2.48 10*3/uL 1.32-3.29 code = 731-0) MONO x10^3 (test 0.62 10*3/uL 0.33-0.92 code = 742-7) EOS x10^3 (test 0.05 10*3/uL 0.03-0.39 code = 711-2) BASO x10^3 (test 0.03 10*3/uL 0.01-0.07 code = 704-7) [facility]"
[2022-08-26] MEDS ORDERED: KETOROLAC 30 MG/ML INJ ONE (14:57)
[2022-08-26] MEDS ORDERED: HYDROCODONE/APAP 10/325 TAB ONE (14:57)
--- NOTE | 2022-08-26 15:49 | RAD REPORT ---
EXAM DESCRIPTION: CT - CTHCSPWOC - 08/26/2022 3:35 pm CLINICAL HISTORY: fall injury COMPARISON: Head C Spine Mpr Wo Con dated 02/18/2019 TECHNIQUE: Axial 5 mm thick images of the head were obtained. Axial 2 mm thick images of the cervic al spine were obtained with sagittal and coronal reconstruction images generated and reviewed. All CT scans are performed using dose optimization technique as appropriate and may include automated exposure control or mA/KV adjustment according to patient size. FINDINGS: No intracranial hemorrhage, mass, edema or acute intracranial finding. No suspicion for ac nez perce infarction. No extra-axial fluid collections. Mastoid air cells and paranasal sinuses are clear. No globe or orbit abnormality seen. Cervical bodies are normal in height. No subluxation abnormality seen. No reversal of the usual cervi danielle lordosis which matches the prior imaging. Minimal disc space narrowing at C4-5 and C5-6 as well a s C6-7. Small endplate spurs are present. No significant degree of canal or foramen stenosis from the endplate spurring. No fracture or acute bony abnormality. Central canal detail is inherently limite d. No paraspinal mass or hematoma. IMPRESSION: Negative CT head examination for acute or significant finding. Negative CT cervical spine examination for acute or significant finding.
--- NOTE | 2022-08-26 16:14 | RAD REPORT ---
EXAM DESCRIPTION: RAD - Tib Fib Left - 08/26/2022 4:01 pm CLINICAL HISTORY: Fall, leg pain COMPARISON: None. FINDINGS: No fracture is identified. There is no dislocation or periosteal reaction noted. No acute or suspicious bony finding. Mild degenerative changes are present in the lateral compartment of the k nee. No foreign body or other soft tissue abnormality. IMPRESSION: Negative left tibia & fibula examination for acute finding.
--- NOTE | 2022-08-26 16:16 | RAD REPORT ---
EXAM DESCRIPTION: RAD - Humerus Left - 08/26/2022 4:01 pm CLINICAL HISTORY: Fall, arm pain COMPARISON: None. FINDINGS: No fracture is identified. There is no dislocation or periosteal reaction noted. No forei gn body or other soft tissue abnormality. IMPRESSION: Negative left humerus examination.
--- NOTE | 2022-08-26 16:16 | RAD REPORT ---
EXAM DESCRIPTION: RAD - Hip Left 2 View - 08/26/2022 4:01 pm CLINICAL HISTORY: PAIN COMPARISON: Hip Left 2 View dated 12/14/2020 FINDINGS: AP and frogleg views of the left hip were obtained. No acute fractures seen. There is no dislocation or periosteal reaction. Patient has very advanced fo r age degenerative change at the left hip joint. The joint space is effaced and there is subcortical cystic change in the superior aspect of the femoral head. Femoral head articular marginal spurring is present along with spurring superior acetabular rim. Femoral head has a slightly irregular contour. Developing AVN is not excluded. No fracture of the left hemipelvis. SI joint and pubic symphysis show no significant findings. No pat hologic bone process. No soft tissue abnormality. IMPRESSION: Left hip examination shows no acute finding. Patient has very advanced degenerative change of the left hip joint that has progressed even further since the December 2020 study.
--- NOTE | 2022-08-26 16:17 | RAD REPORT ---
EXAM DESCRIPTION: RAD - Forearm Left - 08/26/2022 4:01 pm CLINICAL HISTORY: PAINafter fall COMPARISON: February 2019 FINDINGS: No fracture is identified. There is no dislocation or periosteal reaction noted. No foreign body or other soft tissue abnormality. IMPRESSION: Negative left forearm examination.
--- NOTE | 2022-08-26 16:18 | RAD REPORT ---
EXAM DESCRIPTION: RAD - Hand Left 3 View - 08/26/2022 4:01 pm CLINICAL HISTORY: PAINafter fall COMPARISON: None. FINDINGS: No fracture, dislocation or periosteal reaction noted. No acute or destructive bone proces s. No abnormal joint space narrowing, spurring or erosive change. No air or foreign body in the soft tissues. IMPRESSION: Negative left hand examination.
--- NOTE | 2022-08-26 16:46 | ER ---
Nurse's Notes [facility] Name: Jazmín Perez Age: 52 yrs Sex: Female : 1970 Arrival Date: 08/26/2022 Time: 14:04 Bed 11 Private MD: Diagnosis: Contusion of shoulder and upper arm;Contusion of lower leg;Acute post-traumatic headache Presentation: 08/26 14:35 Chief complaint: Patient states: fell down two steps, fell on left side, hit her head iw and left arm. 14:35 Acuity: LOU 4 iw 14:36 Coronavirus screen: At this time, the client does not indicate any symptoms associated iw with coronavirus-19. Ebola Screen: Patient negative for fever greater than or equal to 101.5 degrees Fahrenheit, and additional compatible Ebola Virus Disease symptoms Patient denies exposure to infectious person. Patient denies travel to an Ebola-affected area in the 21 days before illness onset. No symptoms or risks identified at this time. Initial Sepsis Screen: Does the patient meet any 2 criteria? No. Patient's initial sepsis screen is negative. Does the patient have a suspected source of infection? No. Patient's initial sepsis screen is negative. Risk Assessment: Do you want to hurt yourself or someone else? Patient reports no desire to harm self or others. Onset of symptoms was August 26, 2022. 14:36 Method Of Arrival: Wheelchair iw ED Course: 14:04 Patient arrived in ED. mr 14:18 Jean Aponte PA is PHCP. jr8 14:18 Gerardo Velazquez DO is Attending Physician. jr8 14:36 Triage completed. iw 14:53 Marlen Gutierrez, RN is Primary Nurse. iw 15:36 CT Head C Spine In Process Unspecified. EDMS 16:02 Humerus Left XRAY In Process Unspecified. EDMS 16:02 Forearm Left XRAY In Process Unspecified. EDMS 16:02 Hand Left 3 View XRAY In Process Unspecified. EDMS 16:02 Hip Left 2 View XRAY In Process Unspecified. EDMS 16:02 Tib Fib Left XRAY In Process Unspecified. EDMS Administered Medications: 15:00 Drug: [place] (HYDROcodone-acetaminophen) 10 mg-325 mg 1 tabs Route: PO; iw 15:00 Drug: Ketorolac 30 mg Route: IM; Site: left ventrogluteal; iw 17:08 Drug: morphine 4 mg Route: IM; Site: left ventrogluteal; iw 17:08 Drug: Ondansetron 4 mg Route: PO; iw Outcome: 16:45 Discharge ordered by MD. ochoa 17:19 Patient left the ED. iw Signatures: Dispatcher [employer] Lacey Eric Irene, RN RN iw Jean Aponte PA PA jrOrlando
--- NOTE | 2022-08-26 16:46 | EDPHYS ---
Physician Documentation [facility] Name: Jazmín Perez Age: 52 yrs Sex: Female : 1970 Arrival Date: 08/26/2022 Time: 14:04 Bed 11 Private MD: ED Physician Gerardo Velazquez HPI: 08/26 16:06 This 52 yrs old Female presents to ER via Wheelchair with complaints of Fall jr8 Injury, Head Injury-Adult. 16:06 Details of fall: The patient fell from a height, down approximately 4 stairs. Onset: jr8 The symptoms/episode began/occurred acutely, today. Associated injuries: The patient sustained injury to the head, neck injury, left arm and left leg. Severity of symptoms: At their worst the symptoms were moderate, in the emergency department the symptoms are unchanged. The patient has not experienced similar symptoms in the past. The patient has not recently seen a physician. +LOC. ROS: 16:06 Eyes: Negative for injury, pain, redness, and discharge, ENT: Negative for injury, jr8 pain, and discharge, Cardiovascular: Negative for chest pain, palpitations, and edema, Respiratory: Negative for shortness of breath, cough, wheezing, and pleuritic chest pain, Abdomen/GI: Negative for abdominal pain, nausea, vomiting, diarrhea, and constipation, Back: Negative for injury and pain, Skin: Negative for injury, rash, and discoloration. 16:06 Neck: Positive for pain with movement, pain at rest, tenderness. 16:06 MS/extremity: Positive for decreased range of motion, pain, tenderness, of the left arm and left leg. 16:06 Neuro: Positive for headache, loss of consciousness. Exam: 16:06 Head/Face: Normocephalic, atraumatic. Eyes: Pupils equal round and reactive to light, jr8 extra-ocular motions intact. Lids and lashes normal. Conjunctiva and sclera are non-icteric and not injected. Cornea within normal limits. Periorbital areas with no swelling, redness, or edema. ENT: Nares patent. No nasal discharge, no septal abnormalities noted. Tympanic membranes are normal and external auditory canals are clear. Oropharynx with no redness, swelling, or masses, exudates, or evidence of obstruction, uvula midline. Mucous membranes moist. 16:06 Cardiovascular: Regular rate and rhythm with a normal S1 and S2. No gallops, murmurs, or rubs. Normal PMI, no JVD. No pulse deficits. Respiratory: Lungs have equal breath sounds bilaterally, clear to auscultation and percussion. No rales, rhonchi or wheezes noted. No increased work of breathing, no retractions or nasal flaring. Abdomen/GI: Soft, non-tender, with normal bowel sounds. No distension or tympany. No guarding or rebound. No evidence of tenderness throughout. Back: No spinal tenderness. No costovertebral tenderness. Full range of motion. Skin: Warm, dry with normal turgor. Normal color with no rashes, no lesions, and no evidence of cellulitis. Neuro: Awake and alert, GCS 15, oriented to person, place, time, and situation. Motor strength 5/5 in all extremities. Sensory grossly intact. 16:06 Constitutional: The patient appears alert, awake, in obvious pain. 16:06 Neck: External neck: tenderness, that is mild, of the left mid cervical area and left trapezius, C-spine: appears grossly normal, Thyroid: appears normal, Trachea: is midline with no obvious abnormalities, ROM/movement: pain, that is moderate, with any movement. 16:06 Musculoskeletal/extremity: Extremities: grossly normal except: noted in the left arm: pain, tenderness, To left upper humerus down through left distal humerus. Pain also to left forearm and left wrist and CMC region of left thumb. Mild bruising noted to the CMC region the left thumb into the dorsal forearm., noted in the left leg: Patient has tenderness to the left hip, left lateral aspect of the proximal tibia, and left ankle. Small abrasion noted to the left ankle lateral malleolus., ROM: intact in all extremities, limited active range of motion due to pain, limited passive range of motion due to pain, Circulation is intact in all extremities. Sensation intact. MDM: 14:33 Patient medically screened. jr8 16:20 Data reviewed: vital signs, nurses notes, radiologic studies, CT scan, plain films. I jr8 considered the following discharge prescriptions or medication management in the emergency department Medications were administered in the Emergency Department. See MAR. Counseling: I had a detailed discussion with the patient and/or guardian regarding: the historical points, exam findings, and any diagnostic results supporting the discharge/admit diagnosis, radiology results, the need for outpatient follow up, a family practitioner, to return to the emergency department if symptoms worsen or persist or if there are any questions or concerns that arise at home. Response to treatment: the patient's symptoms have mildly improved after treatment. ED course: Discussed with patient that there are no acute findings on CT scan or plain film images. Patient has had some improvement with pain medication both oral and IM. Will go home on medication to help as well. Needs to follow-up with family practice. If after a week she is still having pain to certain areas to come back for reimaging or follow-up and primary care can order outpatient imaging. Otherwise patient hemodynamically stable at this time and being that there is no acute fracture or other acute abnormality on physical exam can go home safely.. 08/26 14:39 Order name: CT Head C Spine; Complete Time: 15:54 08/26 14:39 Order name: Humerus Left XRAY; Complete Time: 16:20 08/26 14:39 Order name: Forearm Left XRAY; Complete Time: 16:20 08/26 14:39 Order name: Hand Left 3 View XRAY; Complete Time: 16:20 08/26 14:39 Order name: Hip Left 2 View XRAY; Complete Time: 16:20 08/26 14:39 Order name: Tib Fib Left XRAY; Complete Time: 16:20 Administered Medications: 15:00 Drug: [place] (HYDROcodone-acetaminophen) 10 mg-325 mg 1 tabs Route: PO; iw 15:00 Drug: Ketorolac 30 mg Route: IM; Site: left ventrogluteal; iw 17:08 Drug: morphine 4 mg Route: IM; Site: left ventrogluteal; iw 17:08 Drug: Ondansetron 4 mg Route: PO; iw Disposition: 19:21 Co-signature as Attending Physician, Gerardo PIERRE was immediately available on-site ms3 in the Emergency Department for consultation in the care of the patient. Disposition Summary: 08/26/22 16:45 Discharge Ordered Location: Home jr8 Problem: new jr8 Symptoms: have improved jr8 Condition: Stable jr8 Diagnosis - Contusion of shoulder and upper arm jr8 - Contusion of lower leg jr8 - Acute post-traumatic headache jr8 Followup: jr8 - With: Private Physician - When: 2 - 3 days - Reason: Recheck today's complaints, Continuance of care, Re-evaluation by your physician Discharge Instructions: - Discharge Summary Sheet jr8 Forms: - Medication Reconciliation Form jr8 - Thank You Letter jr8 - Antibiotic Education jr8 - Prescription Opioid Use jr8 Prescriptions: - Ibuprofen 800 mg Oral Tablet - take 1 tablet by ORAL route every 8 hours As needed take with food; 30 tablet; jr8 Refills: 0, Product Selection Permitted - Tylenol-Codeine #3 300 mg-30 mg Oral - take 2 tablet by ORAL route every 8 hours As needed; 18 tablet; Refills: 0, jr8 Product Selection Permitted Signatures: Dispatcher [employer] EDMS Marlen Gutierrez RN RN iw Jean Aponte PA PA jr8 Gerardo Velazquez DO DO ms3 Corrections: (The following items were deleted from the chart) 16:44 16:20 ED course: Discussed with patient that there are no acute findings on CT scan or jr8 plain film images. Patient has had some improvement with pain medication both oral and IM. Will go home on medication to help as well. Needs to follow-up with family practice. If after a week she is still having pain to certain areas to come back for reimaging or follow-up and primary care can order outpatient imaging. Otherwise patient hemodynamically stable at this time and being that there is no acute fracture or other acute abnormality on physical exam can go home safely.. jr8
[2022-08-26] MEDS ORDERED: ONDANSETRON 4 MG (ODT) TAB ONE (17:08)
[2022-08-26] MEDS ORDERED: MORPHINE 4 MG/ML SYR ONE (17:08)
== END 2022-08-26 17:19 | disposition home or self-care (01) ==
LOC: ER 14:02
DX: S40.012A Contusion of left shoulder, initial encounter (principal); S40.022A Contusion of left upper arm, initial encounter; S80.12XA Contusion of left lower leg, initial encounter; G44.319 Acute post-traumatic headache, not intractable
CPT/HCPCS: 70450; 72125; 73130; 73502; 73090; 73060; 73590; Q0162; 96372; 99283

== ENCOUNTER 2022-09-17 21:28 | Emergency (ER) | payer OTHER ==
--- OUTSIDE RECORDS SUMMARY | 2022-09-17 22:12 | XMS REPORT | Continuity of Care Document ---
:1970 Author Organization [facility] t Address [address] [place] [address] [address] [place] [address] Care Team Providers Name Role Phone RICA AZUCENA Primary Care Physician Unavailable KAYLA LUTZ Attending Clinician Unavailable LACEY CLEMENTS Attending Clinician Unavailable Doctor Unassigned, [place] Attending Clinician Unavailable Kayla Lutz MD Attending Clinician BERNICE COLUNGA Attending Clinician Unavailable Bernice Amaya Attending Clinician Chelo Cornejo RN Attending Clinician Unavailable ANNAMARIA BARKER Attending Clinician Unavailable Brodie Celmons MD Attending Clinician Annamaria Barker DO Attending Clinician FILIPE WIGGINS Attending Clinician Unavailable CLAYTON GARRIDO Attending Clinician Unavailable Bharath Padgett CRNA Attending Clinician Trang Hunt MD Attending Clinician Pob, [facility] Main Attending Clinician Unavailable [...] Policy Number Effective Date Expiration Date Lucrecia CANALES/[facility] [id number] 2022 DUAL COMP HMO D 00:00:00 [facility] [id number] 2021 PLUS 00:00:00 [facility] [id number] 2015 HEALTH CHOICE 00:00:00 AMBETTER [id number] 2020 [facility] 00:00:00 PLAN Ambetter from [id number] Common [facility] [place] HIM AMBETTER [id number] 2019 FROM [place] 00:00:00 HEALTH Ambetter from [id number] Common [facility] [place] Ambetter from [id number] Common [facility] [place] Ambetter from [id number] Common [facility] [place] Problems Condition Condition Condition Status Onset Resolution [...] Active Overview: Univers of left of left 03 Formattin ity o f hip hip 00:00: g of this [place] 00 note Medical might be Branch different from the original. Added automatic ally from request for surgery [id number] Arthritis Arthritis Disease Active [facility] of left of left 5-17 Health hip hip 00:00: 00 Arthritis Arthritis Disease Active [place] of left of left 5-17 Health knee knee 00:00: 00 Trochanter Trochanter Disease Active U T ic ic -17 Health bursitis, bursitis, 00:00: left hip left hip 00 Hip pain, Hip pain, Disease Active UT [...] verbalize d cherrie vann. Recommend weight loss. 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 half-way Disease Active Uni vers (current) (current) 8-28 ity of use of use of 00:00: [place] non-steroi non-steroi 00 Me dical jaiden jaiden Branch anti-infla anti-infla mmatories mmatories (nsaid) (nsaid) Other iron Other iron Disease Active U nivers deficiency deficiency 8-28 it y of anemia anemia 00:00: [place] [address] Medical Branch Subcutaneo Subcutaneo Disease Active U nivers us nodules us nodules 8-28 it y of 00:00: [place] [address] Medical Branch Bilateral Bilateral Disease Active Uni vers knee pain knee pain 3- ity of 00:00: [place] [address] Medical Branch Bilateral Bilateral Disease Active Uni vers knee pain knee pain 3- ity of 00:00: [place] [address] Medical Branch [id number] Pain, Problem Active Commo n [id number] joint, Spirit hand, left - [facility] [id number] [place] [id number] osteoarthr Spirit itis of [facility] left hip [facility] [id number] Trigger Problem Active Commo n finger, Spirit right ring - [facility] finger [facility] [id number] Pain, Problem Active Commo n [id number] joint, [facility] hand, - [facility] right [facility] Allergies, Adverse Reactions, Alerts Allergy Allergy Status Severity Reaction(s) Onset Inactive Treating Comm ents Source Name Type Date Date Clinician CODEINE DRUG Active N/V Univers INGREDI 2-04 ity of 00:00: [place] [address] Medical Branch Codeine Propensi Active Nausea And [facility] ty to Vomiting 2-04 Health adverse 00:00: reaction 00 s Social History Social Habit Start Date Stop Date Quantity Comments Source History [facility] Alcohol Std Drinks History [facility] Alcohol Binge History of Common [facility] - Tobacco Use [facility] Sex Assigned At Common Sp mingo - [facility] Exposure to 2022-08-31 2022-09-10 Not sure University of SARS-CoV-2 00:00:00 15:32:00 [place] Medical (event) Branch History SDOH Food 2022-06-13 2022-06-13 1 Univers ity of Worry 00:00:00 00:00:00 [place] [facility] History SDOH Food 2022-06-13 2022-06-13 1 Univers ity of Scarcity 00:00:00 00:00:00 [place] [facility] History SDOH 2022-06-13 2022-06-13 2 University o f Transport Med 00:00:00 00:00:00 [place] Medic al Branch History SDOH 2022-06-13 2022-06-13 2 University o f Transport Non-Med 00:00:00 00:00:00 [facility] Tobacco use and 2022-06-11 2022-06-11 Smokeless tobacco Un iversity of exposure 00:00:00 00:00:00 non-user [facility] [place] [facility] Education 2022-06-10 2022-06-10 21 [facility] 00:00:00 00:00:00 [facility] [place] [facility] Alcohol intake 2020-12-18 2020-12-18 [facility] 00:00:00 00:00:00 non-drinker (finding) History SDOH 2020-12-18 2020-12-18 1 [facility] Alcohol Frequency 00:00:00 00:00:00 Smoking Status Start Date Stop Date Source Never smoked tobacco [facility] Medications Ordered Filled Start Stop Current Ordering Indication Dosage Frequency Signature Comments Components Source Medication Medication Date Date Medication? Clinician (SIG) Name Name cefTRIAXone 2021-08 1000mg 1,000 mg, Univers (ROCEPHIN) 08-13 IV ity of 1,000 mg in 18:00: 17:59 [place], [place] NaCl 0.9% 00 :00 Q24H ABX, Medic al (NS) 50 mL 2 doses, Branc h MINI-BAG First dose (after last modificati on) on Sneha 06/13/22 at 1200, Last dose on Fri06/14/22 at 1200, Administer over 30 Minutes, 50 mL
Reas on for Anti-Infec tive: Documented Infection< br>Documen billy Infection Site: Urine
D uration of Therapy: 7 days lactobacill 2021-08- No [id number] .5mg Take 1 Univers us 08-13- tablet by ity of acidophilus 00:00: 05:59 mouth in [place] 00 :00 the Medical morning [place] for 30 days. polyethylen 2021-08- No [id number] 17g Take 1 Univers e glycol 08-13- Packet by ity o f 3350 17 00:00: 05:59 mouth in [place] gram powder 00 :00 the Medical morning [place] for 30 days. lactobacill 2021-08- No [id number] .5mg Take 1 Univers us 08-13- tablet by ity of acidophilus 00:00: 05:59 mouth in [place] 00 :00 the Medical morning [place] for 30 days. polyethylen 2021-08- No [id number] 17g Take 1 Univers e glycol 1-10 12-11 Packet by ity o f 3350 17 00:00: 05:59 mouth in [place] gram powder 00 :00 the Medical morning Branch for 30 days. sennosides- 2021-08 Yes 1{tbl} 1 tablet, Univers docusate -09 Oral, ity of sodium 16:15: DAILY, [place] (SENOKOT-S) 00 First dose Me dical 8.6-50 mg on Fri Branch per tablet 06/12/22 at 1 tablet 1015, [...] Take 60 mg U nivers 60 mg 1-09 by mouth ity of capsule 16:08: daily. [...] 2021-08 Yes Xigduo XR U nivers in-metformi 1-09 10 mg-500 ity of n (XIGDUO 16:08: mg [place] XR) 10-500 30 tablet,ext Med ical mg TBph ended Branch release Take 1 tablet every day by oral route for 30 days. cyclobenzap 2021-08 Yes 10mg Take 10 mg Univers rine 10 mg 1-09 by mouth 2 ity of tablet 16:08: (two) [place] 30 times Medical daily. Branch DULoxetine 2021-08 Yes 60mg Take 60 mg U nivers 60 mg 1-09 by mouth ity of capsule 16:08: daily. 30 Medical Branch amitriptyli 2021-08 Yes amitriptyl [...] Take 10 mg Univers rine 10 mg 1-09 by mouth 2 ity of tablet 16:08: (two) [place] 30 times Medical daily. Branch DULoxetine 2021-08 Yes 60mg Take 60 mg U nivers 60 mg 1-09 by mouth ity of capsule 16:08: daily. [...] 2021-08 Yes Xigduo XR U nivers in-metformi 1-09 10 mg-500 ity of n (XIGDUO 16:08: mg [place] XR) 10-500 30 tablet,ext Med ical mg TBph ended Branch release Take 1 tablet every day by oral route for 30 days. cyclobenzap 2021-08 Yes 10mg Take 10 mg Univers rine 10 mg 1-09 by mouth 2 ity of tablet 16:08: (two) [place] 30 times Medical daily. Branch DULoxetine 2021-08 Yes 60mg Take 60 mg U nivers 60 mg 1-09 by mouth ity of capsule 16:08: daily. [...] 2021-08 Yes Xigduo XR U nivers in-metformi 1-09 10 mg-500 ity of n (XIGDUO 16:08: mg [place] XR) 10-500 30 tablet,ext Med ical mg TBph ended Branch release Take 1 tablet every day by oral route for 30 days. cyclobenzap 2021-08 Yes 10mg Take 10 mg Univers rine 10 mg 1-09 by mouth 2 ity of tablet 16:08: (two) [place] 30 times Medical daily. Branch DULoxetine 2021-08 Yes 60mg Take 60 mg U nivers 60 mg 1-09 by mouth ity of capsule 16:08: daily. [...] 2021-08 Yes Xigduo XR U nivers in-metformi 1-09 10 mg-500 ity of n (XIGDUO 16:08: mg [place] XR) 10-500 30 tablet,ext Med ical mg TBph ended Branch release Take 1 tablet every day by oral route for 30 days. cyclobenzap 2021-08 Yes 10mg Take 10 mg Univers rine 10 mg 1-09 by mouth 2 ity of tablet 16:08: (two) [place] 30 times Medical daily. Branch DULoxetine 2021-08 Yes 60mg Take 60 mg U nivers 60 mg 1-09 by mouth ity of capsule 16:08: daily. 30 Medical Branch amitriptyli 2021-08 Yes amitriptyl [...] 2021-08 Yes Xigduo XR U nivers in-metformi 1-09 10 mg-500 ity of n (XIGDUO 16:08: mg [place] XR) 10-500 30 tablet,ext Med ical mg TBph ended Branch release Take 1 tablet every day by oral route for 30 days. cyclobenzap 2021-08 Yes 10mg Take 10 mg Univers rine 10 mg 1-09 by mouth 2 ity of tablet 16:08: (two) [place] 30 times Medical daily. Branch DULoxetine 2021-08 Yes 60mg Take 60 mg U nivers 60 mg 1-09 by mouth ity of capsule 16:08: daily. 30 Medical Branch amitriptyli 2021-08 Yes amitriptyl [...] 2021-08 Yes Xigduo XR U nivers in-metformi 1-09 10 mg-500 ity of n (XIGDUO 16:08: mg [place] XR) 10-500 30 tablet,ext Med ical mg TBph ended Branch release Take 1 tablet every day by oral route for 30 days. cyclobenzap 2021-08 Yes 10mg Take 10 mg Univers rine 10 mg 1-09 by mouth 2 ity of tablet 16:08: (two) [place] 30 times Medical daily. Branch DULoxetine 2021-08 Yes 60mg Take 60 mg U nivers 60 mg 1-09 by mouth ity of capsule 16:08: daily. 30 Medical Branch amitriptyli 2021-08 Yes amitriptyl Univers ne 150 mg 1- ine 150 mg ity of tablet 16:08: tablet 30 Take 1 Medical tablet Branch every day by oral route for 30 days. Fesoterodin 2021-08 Yes Toviaz 4 Un james e (TOVIAZ) 1-09 mg ity of 4 mg tablet 16:08: tablet,ext [place] 30 ended Medical release Branch dapaglifloz 2021-08 Yes Xigduo XR U nivers in-metformi 1-09 10 mg-500 ity of n (XIGDUO 16:08: mg [place] XR) 10-500 30 tablet,ext Med ical mg TBph ended Branch release Take 1 tablet every day by oral route for 30 days. cyclobenzap 2021-08 Yes 10mg Take 10 mg Univers rine 10 mg 1-09 by mouth 2 ity of tablet 16:08: (two) [place] 30 times Medical daily. Branch DULoxetine 2021-08 Yes 60mg Take 60 mg U nivers 60 mg 1-09 by mouth ity of capsule 16:08: daily. 30 Medical Branch proMETHazin 2021-08 Yes [id number] 25mg Take 1 Univers e 25 mg 1-09 tablet by ity of tablet 00:00: mouth [place] 00 every 4 Medical (four) Branch hours as needed for N/V unresponsi ve to Ondansetro n. proMETHazin 2021-08 Yes [id number] 25mg Take 1 Univers e 25 mg 1-09 tablet by ity of tablet 00:00: mouth [place] 00 every 4 Medical (four) Branch hours as needed for N/V unresponsi ve to Ondansetro n. proMETHazin 2021-08 Yes [id number] 25mg Take 1 Univers e 25 mg 1-09 tablet by ity of tablet 00:00: mouth [place] 00 every 4 Medical (four) Branch hours as needed for N/V unresponsi ve to Ondansetro n. proMETHazin 2021-08 Yes [id number] 25mg Take 1 Univers e 25 mg 1-09 tablet by ity of tablet 00:00: mouth [place] 00 every 4 Medical (four) Branch hours as needed for N/V unresponsi ve to Ondansetro n. proMETHazin 2021-08 Yes [id number] 25mg Take 1 Univers e 25 mg 1-09 tablet by ity of tablet 00:00: mouth [place] 00 every 4 Medical (four) Branch hours as needed for N/V unresponsi ve to Ondansetro n. proMETHazin 2021-08 Yes [id number] 25mg Take 1 Univers e 25 mg 1-09 tablet by ity of tablet 00:00: mouth [place] 00 every 4 Medical (four) Branch hours as needed for N/V unresponsi ve to Ondansetro n. proMETHazin 2021-08 Yes [id number] 25mg Take 1 Univers e 25 mg 1-09 tablet by ity of tablet 00:00: mouth [place] 00 every 4 Medical (four) Branch hours as needed for N/V unresponsi ve to Ondansetro n. proMETHazin 2021-08 Yes [id number] 25mg Take 1 Univers e 25 mg 1-09 tablet by ity of tablet 00:00: mouth [place] 00 every 4 Medical (four) Branch hours as needed for N/V unresponsi ve to Ondansetro n. proMETHazin 2021-08 Yes [id number] 25mg Take 1 Univers e 25 mg 1-09 tablet by ity of tablet 00:00: mouth [place] 00 every 4 Medical (four) Branch hours as needed for N/V unresponsi ve to Ondansetro n. docusate 2021-08- No [id number] 100mg Take 1 Univers 100 mg - 12-10 capsule by ity of capsule 00:00: 05:59 mouth in [place] 00 :00 the Medical morning Branch and 1 capsule in the evening. Do all this for 30 days. docusate 2021-08- No [id number] 100mg Take 1 Univers 100 mg 08-12 capsule by ity of capsule 00:00: 05:59 mouth in [place] 00 :00 the Medical morning Branch and 1 capsule in the evening. Do all this for 30 days. HYDROcodone 2021-08- No [id number] 1{tbl} Take 1 U nivers -acetaminop 08-12 tablet by it y of hen 5-325 00:00: 05:59 mouth [place] mg tablet 00 :00 every 6 Medical (six) Branch hours as needed for Pain (scale 7-10) for up to 7 days. Indication s: acute pain ciprofloxac 2021-08- No [id number] 500mg Take 1 Univers in HCl 500 08-12 tablet by ity of mg tablet 00:00: 05:59 mouth [place] 00 :00 every 12 Medical (twelve) Branch hours for 7 days. metroNIDAZO 2021-08- No [id number] 500mg Take 2 Univers LE 250 mg 08-12 tablets by ity of tablet 00:00: 05:59 mouth [place] 00 :00 every 12 Medical (twelve) Branch hours for 7 days. HYDROcodone 2021-08- No [id number] 1{tbl} Take 1 U nivers -acetaminop 08-12 tablet by it y of hen 5-325 00:00: 05:59 mouth [place] mg tablet 00 :00 every 6 Medical (six) Branch hours as needed for Pain (scale 7-10) for up to 7 days. Indication s: acute pain ciprofloxac 2021-08- No [id number] 500mg Take 1 Univers in HCl 500 08-12 tablet by ity of mg tablet 00:00: 05:59 mouth [place] 00 :00 every 12 Medical (twelve) Branch hours for 7 days. metroNIDAZO 2021-08- No [id number] 500mg Take 2 Univers LE 250 mg 08-12 tablets by ity of tablet 00:00: 05:59 mouth [place] 00 :00 every 12 Medical (twelve) Branch hours for 7 days. proMETHazin 2021-08 Yes 25mg 25 mg, IV U nivers e 08-11 Piggyback, ity of (PHENERGAN) 21:26: Q4HPRN, [place] 25 mg in 59 Starting Medical NaCl 0.9% on (NS) 50 mL 06/11/22 at IV 1526, piggyback Until Discontinu ed, Routine, Nausea and Vomiting (N/V), N/V unresponsi ve to Ondansetro n acetaminoph 2021-08 Yes 650mg 650 mg, Un james en 08 Oral, ity of (TYLENOL) 15:55: Q6HPRN, [place] tablet 650 26 Starting Medic al mg on 06/11/22 at 0955, Until Discontinu ed, Routine, Pain (scale 1-3) enoxaparin 2021-08 Yes 40mg 40 mg, Unive rs (LOVENOX) 08 Subcutaneo ity of injection 15:00: us, DAILY, [place] 40 mg 00 First dose Medical on [facility] 06/11/22 at 0900, Until Discontinu ed, Routine DULoxetine 2021-08 Yes 60mg 60 mg, Unive rs (CYMBALTA) 08 Oral, ity of capsule 60 15:00: DAILY, [place] mg 00 First dose Medical on [facility] 06/11/22 at 0900, Until Discontinu ed, Routine lactobacill 2021-08 Yes .5mg 0.5 mg, Uni vers us 08 Oral, ity of acidophilus 15:00: DAILY, [place] tablet 0.5 00 First dose Med ical mg on [facility] 06/11/22 at 0900, Until Discontinu ed, Routine Sliding 2021-08 Yes Subcutaneo Univ ers Scale 1-08 us, TID ity of Insulin - 14:00: MEALS, [place] Lispro 00 First dose Medical (HumaLOG) + on Fri Fsbg 06/11/22 at Testing 0800, Until Discontinu ed, Routine morpHINE (4 2021-08 Yes 4mg 4 mg, Slow Univers mg/mL) 1-08 IV Push, ity of injection 4 12:52: Q4HPRN, [place] mg 08 Starting Medical on Fri06/11/22 at 0652, Until Discontinu ed, Routine, Pain (scale 7-10) cefTRIAXone 2021-08 No 1000mg 1,000 mg, Univers (ROCEPHIN) 08-1109 IV ity of 1,000 mg in 08:00: 18:21 [place], [place] NaCl 0.9% 00 :49 Q12H ABX, Medic [...] Yes 100mg 100 mg, Unive rs (COLACE) 108 Oral, BID, ity o f capsule 100 06:15: First dose [place] mg 00 on [facility] 06/11/22 at Branch 0015, Until Discontinu ed, Routine gabapentin 2021-08 Yes 200mg 200 mg, Uni vers (NEURONTIN) 08-11 Oral, BID, it y of capsule 200 06:15: First dose [place] mg 00 on [facility] 06/11/22 at Branch 0015, Until Discontinu ed, Routine cyclobenzap 2021-08 Yes 10mg 10 mg, Univ ers rine 08-11 Oral, BID, ity of (FLEXERIL) 06:15: First dose [place] tablet 10 00 on [facility] mg 06/11/22 at Branch 0015, Until Discontinu ed, Routine ondansetron 2021-08 Yes 4mg 4 mg, Slow Univers (ZOFRAN 08-11 IV Push, ity of (PF)) 06:06: Q6HPRN, [place] injection 4 47 Starting Medi danielle mg on [facility] 06/11/22 at 0006, Until Discontinu ed, Routine, Nausea and Vomiting (N/V) traMADoL 2021-08- No 50mg 50 mg, Univer s (ULTRAM) 08-1110 Oral, ity of tablet 50 06:06: 06:05 Q8HPRN, [place] mg 37 :37 Starting Medical on [facility] 06/11/22 at 0006, Until [place] 06/13/22 at 0005, Routine, Pain (scale 4-6) FENTanyl PF 2021-08 No 50ug 50 mcg, Un james (SUBLIMAZE 08-11 Slow IV ity o f (PF)) 05:58: 12:52 [place], [place] injection 16 :20 Q4HPRN, Medical 50 mcg [...] IV ity of (REGLAN) 03:17: 21:27 [place], [place] injection 15 :54 TIDPRN, Medical 10 mg Starting Branch on Fri06/10/22 at 2117, Until Fri06/11/22 at 1527, Routine, Nausea and Vomiting (N/V) morpHINE (4 2021-08 No 4mg 4 mg, Slow Univers mg/mL) 08-11 IV Push, ity of injection 4 03:16: 05:58 Q4HPRN, [place] mg 49 :48 Starting Medical on Fri06/10/22 at 2116, Until Fri06/10/22 at 2358, Routine, Pain (scale 7-10) oxybutynin 2021-08 No oxybutynin Univers 10 mg 24 hr 08-11 chloride ity of tablet 00:05: 00:00 ER 10 mg [place] 07 :00 tablet,ext Medical ended Branch release 24 hr semaglutide 2021-08 No .25mg 0.25 mg. Univers (OZEMPIC) 08-11 [...] route for 10 days. NaCl 0.9% 2021-08 No 500mL at 999 Univ ers (NS) bolus 08-11 mL/hr, 500 it y of infusion 00:00: 00:17 mL, IV [place] 500 mL 00 :00 Infusion, Medical ONCE, 1 Branch dose, On Fri06/10/22 at 1800, STAT proMETHazin 2021-08 No 25mg [...] 00 :00 dose, On Medi danielle mg [facility] 06/10/22 at 1715, KUNAL morpHINE (4 2021-08 No 4mg 4 mg, Slow Univers mg/mL) 08-10 IV Push, ity of injection 4 22:15: 21:21 ONCE, 1 [place] mg 00 :00 dose, On Medical [facility] 06/10/22 at 1615, STAT cefTRIAXone 2021-08 No 1000mg 1,000 mg, Univers (ROCEPHIN) 08-10 IV ity of 1,000 mg in 20:15: 20:51 [place], [place] NaCl 0.9% 00 :00 ONCE, 1 Medical (NS) 50 mL dose, On Bran h MINI-BAG [facility] 06/10/22 at 1415, Administer over 30 Minutes, 50 mL
Reas on for Anti-Infec tive: Documented Infection< br>Documen billy Infection Site: Urine<br&g t;Duration of Therapy: 7 days ketorolac 2021-08 No 30mg 30 mg, Unive rs (TORADOL) 08-10 Slow IV ity of injection 20:00: 19:01 Push, [place] 30 mg 00 :00 ONCE, 1 Medical dose, On Branch [facility] 06/10/22 at 1400, Routine morpHINE (4 2021-08 No 4mg 4 mg, Slow Univers mg/mL) 08-10 IV Push, ity of injection 4 19:30: 19:29 ONCE, 1 [place] mg 00 :00 dose, On Medical [facility] 06/10/22 at 1330, STAT ondansetron 2021-08 No 4mg 4 mg, Slow Univers (ZOFRAN 08-10 IV Push, ity of (PF)) 19:30: 19:29 ONCE, 1 [place] injection 4 00 :00 dose, On Medi danielle mg [facility] 06/10/22 at 1330, KUNAL FENTanyl PF 2022-1 2022- No 50ug 50 mcg, Un james (SUBLIMAZE 08-10 Slow IV ity o f (PF)) 18:01: 18:02 Push, [place] injection 00 :00 ONCE, 1 Medical 50 mcg dose, On Branch 06/10/22 at 1215, Routine cefpodoxime 2021-08- No [id number] 100mg Take 1 Univers 100 mg 08-10 tablet by ity of tablet 00:00: 00:00 mouth in [place] 00 :00 the Medical morning Branch and [...] by oral route for 30 days. clindamycin 2022-0 Yes clindamyci Univers 300 mg 6-13 n HCl 300 ity of capsule 09:33: mg capsule [place] 45 Take 1 Medical capsule 3 Branch times a day by oral route for 10 days. cyclobenzap 2022-0 Yes 10mg Take 10 mg Univers rine 10 mg 6-13 by mouth 2 ity of tablet 09:33: (two) [place] 45 times Medical daily. Branch DULoxetine 2022-0 Yes 60mg Take 60 mg U nivers 60 mg 6-13 by mouth ity of capsule 09:33: daily. [place] 45 Medical Branch gabapentin 2022-0 Yes 100mg Take 100 Un james 100 mg 4-28 mg by ity of capsule 00:00: mouth [place] (two) Medical times Branch daily. gabapentin 2022-0 Yes 100mg Take 100 Un james 100 mg 4-28 mg by ity of capsule 00:00: mouth [place] (two) Medical times Branch daily. gabapentin 2022-0 Yes 100mg Take 100 Un james 100 mg 4-28 mg by ity of capsule 00:00: mouth [place] (two) Medical times Branch daily. gabapentin 2022-0 Yes 100mg Take 100 Un james 100 mg 4-28 mg by ity of capsule 00:00: mouth [place] (two) Medical times Branch daily. gabapentin 2022-0 Yes 100mg Take 100 Un james 100 mg 4-28 mg by ity of capsule 00:00: mouth [place] (two) Medical times Branch daily. gabapentin 2022-0 Yes 100mg Take 100 Un james 100 mg 4-28 mg by ity of capsule 00:00: mouth [place] (two) Medical times Branch daily. gabapentin 2022-0 Yes 100mg Take 100 Un james 100 mg 4-28 mg by ity of capsule 00:00: mouth [place] (two) Medical times Branch daily. gabapentin 2022-0 Yes 100mg Take 100 Un james 100 mg 4-28 mg by ity of capsule 00:00: mouth 2 [place] (two) Medical times Branch daily. gabapentin 2022-0 Yes 100mg Take 100 Un james 100 mg 4-28 mg by ity of capsule 00:00: mouth 2 (two) Medical times Branch daily. gabapentin 2021-0 Yes 100mg Take 100 Un james 100 mg 4-28 mg by ity of capsule 00:00: mouth 2 (two) Medical times Branch daily. lidocaine-p 202-0 Yes APPLY TO Un james rilocaine 2-28 AFFECTED ity of 2.5-2.5 % 00:00: AREA EVERY [place] cream 00 DAY Medical NEEDED Branch eszopiclone 2021-0 Yes 1mg Take 1 mg U nivers 1 mg tablet 2-28 by mouth ity of 00:00: daily. Medical Branch lidocaine-p 2021-0 Yes APPLY TO Un james rilocaine 2-28 AFFECTED ity of 2.5-2.5 % 00:00: AREA EVERY [place] cream 00 DAY Medical NEEDED Branch eszopiclone 2021-0 Yes 1mg Take 1 mg U nivers 1 mg tablet 2-28 by mouth ity of 00:00: daily. Medical Branch lidocaine-p 2021-0 Yes APPLY TO Un james rilocaine 2-28 AFFECTED ity of 2.5-2.5 % 00:00: AREA EVERY [place] cream 00 DAY Medical NEEDED Branch eszopiclone 2021-0 Yes 1mg Take 1 mg U nivers 1 mg tablet 2-28 by mouth ity of 00:00: daily. Medical Branch lidocaine-p 2-0 Yes APPLY TO Un [place]ames rilocaine 2-28 AFFECTED ity of 2.5-2.5 % 00:00: AREA EVERY [place] cream 00 DAY Medical NEEDED Branch eszopiclone 2021-0 Yes 1mg Take 1 mg U nivers 1 mg tablet 2-28 by mouth ity of 00:00: daily. Medical Branch lidocaine-p 2-0 Yes APPLY TO Un james rilocaine 2-28 AFFECTED ity of 2.5-2.5 % 00:00: AREA EVERY [place] cream 00 DAY Medical NEEDED Branch eszopiclone 2021-0 Yes 1mg Take 1 mg U nivers 1 mg tablet 2-28 by mouth ity of 00:00: daily. Medical Branch lidocaine-p 2022-0 Yes APPLY TO Un james rilocaine 2-28 AFFECTED ity of 2.5-2.5 % 00:00: AREA EVERY [place] cream 00 DAY Medical NEEDED Branch eszopiclone 2021-0 Yes 1mg Take 1 mg U nivers 1 mg tablet 2-28 by mouth ity of 00:00: daily. [place] Medical Branch lidocaine-p 2021-0 Yes APPLY TO Un james rilocaine 2-28 AFFECTED ity of 2.5-2.5 % 00:00: AREA EVERY [place] cream 00 DAY Medical NEEDED Branch eszopiclone 2021-0 Yes 1mg Take 1 mg U nivers 1 mg tablet 2-28 by mouth ity of 00:00: daily. [place] Medical Branch lidocaine-p 2021- Yes APPLY TO Un james rilocaine 2-28 AFFECTED ity of 2.5-2.5 % 00:00: AREA EVERY [place] cream 00 DAY Medical NEEDED Branch eszopiclone Yes 1mg Take 1 mg U nivers 1 mg tablet 2-28 by mouth ity of 00:00: daily. [place] Medical Branch lidocaine-p 2021-0 Yes APPLY TO Un james rilocaine 2-28 AFFECTED ity of 2.5-2.5 % 00:00: AREA EVERY [place] cream 00 DAY Medical NEEDED Branch eszopiclone 0 Yes 1mg Take 1 mg U nivers 1 mg tablet 2-28 by mouth ity of 00:00: daily. [place] Medical Branch lidocaine-p 2021-0 Yes APPLY TO Un james rilocaine 2-28 AFFECTED ity of 2.5-2.5 % 00:00: [place]A [place] cream 00 DAY Medical NEEDED Branch eszopiclone 2021- Yes 1mg Take 1 mg U nivers 1 mg tablet 2-28 by mouth ity of 00:00: daily. [place] [facility] methylPREDN 2021-0 Yes [id number] 84mg Take 21 Univers ISolone 2-21 tablets by ity of (MEDROL, 00:00: mouth [place] LUNA,) 4 mg 00 SEE-INSTRU Med ical tablets CTIONS. Branch follow package directions methylPREDN 2021-2021- No [id number] 84mg Take 21 Univers ISolone 2-21 11-08 tablets by ity o f (MEDROL, 00:00: 00:00 mouth [place] LUNA,) 4 mg 00 :00 SEE-INSTRU Med ical tablets CTIONS. Branch follow package directions methylPREDN 2020-08 Yes [id number] 84mg Take 21 Univers ISolone 0-19 [id number] tablets by ity of (MEDROL, 00:00: mouth [place] LUNA,) 4 mg 00 SEE-INSTRU Med ical tablets CTIONS. Branch follow package directions methylPREDN 2020-08- No [id number] 84mg Take 21 Univers ISolone 0-19 11-08 [id number] tablets by ity of (MEDROL, 00:00: 00:00 mouth [place] LUNA,) 4 mg 00 :00 SEE-INSTRU Med ical tablets CTIONS. Branch follow package directions methocarbam Yes [id number] 750mg [id number] Take 1 [place] ol 5-17 9103 [id number] tablet Health (Robaxin) 00:00: 3D (750 mg 750 MG 00 total) by tablet mouth 3 (three) times a day if needed for muscle spasms for up to 10 days. methocarbam 2020- No [id number] 750mg [id number] Take 1 [place] ol 5-17 05-28 9103 [id number] tablet Health (Robaxin) 00:00: 04:59 3D (750 mg 750 MG 00 :00 total) by tablet mouth 3 (three) times a day if needed for muscle spasms for up to 10 days. metFORMIN Yes [place] (Glucophage 5-13 Health ) 1000 MG 00:00: tablet 00 metFORMIN Yes [place] (Glucophage 5-13 Health ) 1000 MG 00:00: tablet 00 benzonatate Yes [id number] 100mg Take 1 Univers 100 mg 6-24 capsule by ity of capsule 00:00: mouth 3 [place] 00 (three) Medical times Branch daily as needed for Cough. chlorphenir Yes [id number] 4mg Take 1 Univers amine 4 mg 6-24 tablet by ity of tablet 00:00: mouth [place] 00 every 6 Medical (six) Branch hours as needed for Allergies or Runny nose. benzonatate 2021- No [id number] 100mg Take 1 Univers 100 mg 6-24 11-08 capsule by ity of capsule 00:00: 00:00 mouth 3 [place] 00 :00 (three) Medical times Branch daily as needed for Cough. chlorphenir 2019-0 2- No [id number] 4mg Take 1 Univers amine 4 mg [...] by mouth ity of tablet 00:00: daily. [facility] Branch loratadine Yes 10mg Take 10 mg U nivers 10 mg 7-31 by mouth ity of tablet 00:00: daily. [facility] Branch loratadine Yes 10mg Take 10 mg U nivers 10 mg 7-31 by mouth ity of tablet 00:00: daily. [facility] Branch loratadine Yes 10mg Take 10 mg U nivers 10 mg 7-31 by mouth ity of tablet 00:00: daily. [place] [facility] Branch loratadine Yes 10mg Take 10 mg U nivers 10 mg 7-31 by mouth ity of tablet 00:00: daily. [facility] Branch loratadine Yes 10mg Take 10 mg U nivers 10 mg 7-31 by mouth ity of tablet 00:00: daily. [facility] Branch loratadine Yes 10mg Take 10 mg U nivers 10 mg 7-31 by mouth ity of tablet 00:00: daily. [facility] Branch loratadine Yes 10mg Take 10 mg U nivers 10 mg 7-31 by mouth ity of tablet 00:00: daily. [place] [facility] Branch loratadine Yes 10mg Take 10 mg U nivers 10 mg 7-31 by mouth ity of tablet 00:00: daily. [place] [facility] Branch metFORMIN Yes TAKE 1 Univer s 1,000 mg 7-07 TABLET BY ity of tablet 00:00: MOUTH [place] [address] TWICE A Medical DAY Branch NEEDED WITH MORNING AND EVENING MEAL metFORMIN Yes TAKE 1 Univer s 1,000 mg 7-07 TABLET BY ity of tablet 00:00: MOUTH [place] 00 TWICE A Medical DAY Branch NEEDED WITH MORNING AND EVENING MEAL metFORMIN 2016- Yes TAKE 1 Univer s 1,000 mg [...] NEEDED WITH MORNING AND EVENING MEAL metFORMIN 2016- Yes TAKE 1 Univer s 1,000 mg [...] mouth [place] 00 daily. Medical Branch famotidine 2017 Yes 40mg Take 1 Unive rs 40 mg 2-20 tablet by ity of tablet 00:00: mouth [place] 00 daily. [facility] Branch famotidine 2017 Yes 40mg Take 1 Unive rs 40 mg 2-20 tablet by ity of tablet 00:00: mouth [place] 00 daily. [facility] Branch famotidine Yes 40mg Take 1 Unive rs 40 mg 2-20 tablet by ity of tablet 00:00: mouth [place] 00 daily. [facility] Branch famotidine Yes 40mg Take 1 Unive rs 40 mg 2-20 tablet by ity of tablet 00:00: mouth [place] 00 daily. [facility] Branch famotidine Yes 40mg Take 1 Unive rs 40 mg 2-20 tablet by ity of tablet 00:00: mouth [place] 00 daily. [facility] Branch famotidine Yes 40mg Take 1 Unive rs 40 mg 2-20 tablet by ity of tablet 00:00: mouth [place] 00 daily. Medical Branch Meloxicam Meloxicam Yes Ronen not Co mmon [place] defined [facility] Metformin Metformin Yes Ronen not Co mmon HCl HCl [place] defined [facility] Naproxen Naproxen Yes Ronen not Comm on [place] defined [facility] Amoxicillin Amoxicillin Yes Ronen not Common -Pot -Pot [place] defined [facility] Clavulanate Clavulanate [facility] Hydrochloro Hydrochloro Yes Ronen not Common thiazide thiazide [place] defined [facility] Cyclobenzap Cyclobenzap Yes Ronen not Common rine HCl rine HCl [place] defined [facility] Vitamin D Vitamin D Yes Ronen not Co mmon (Ergocalcif (Ergocalcif [place] defined Spirit satya) satya) [facility] Ferrous Ferrous Yes Ronen not Common Sulfate Sulfate [place] defined [facility] Amitriptyli Amitriptyli Yes Ronen not Common ne HCl ne HCl [place] defined [facility] Methocarbam Methocarbam Yes Ronen not Common ol ol [place] defined [facility] Ondansetron Ondansetron Yes Ronen not Common HCl HCl [place] defined [facility] BusPIRone BusPIRone Yes Ronen not Co mmon HCl HCl [place] defined [facility] Diclofenac Diclofenac Yes Ronen not Common Sodium Sodium [place] defined [facility] Benzonatate Benzonatate Yes Ronen not Common [place] defined [facility] Gabapentin Gabapentin Yes Ronen not Common [place] defined [facility] Ketorolac Ketorolac No Ketorolac Tromethamin Tromethamin Tromethami [...] Immunizations Ordered Filled Immunization Date Status Comments Sour e Immunization Name Name Influenza Virus 2021-06-24 Completed Universit y of Vaccine Quad IM 3+ 00:00:00 [facility] Influenza Virus 2021-06-24 Completed Universit y of Vaccine Quad IM 3+ 00:00:00 [facility] Influenza Virus 2021-06-24 Completed Universit y of Vaccine Quad IM 3+ 00:00:00 [facility] Influenza Virus 2021-06-24 Completed Universit y of Vaccine Quad IM 3+ 00:00:00 [facility] Influenza Virus 2021-06-24 Completed Universit y of Vaccine Quad IM 3+ 00:00:00 [facility] Influenza Virus 2021-06-24 Completed Universit y of Vaccine Quad IM 3+ 00:00:00 [facility] Influenza Virus 2021-06-24 Completed Universit y of Vaccine Quad IM 3+ 00:00:00 [facility] Influenza Virus 2021-06-24 Completed Universit y of Vaccine Quad IM 3+ 00:00:00 [facility] Influenza Virus 2021-06-24 Completed Universit y of Vaccine Quad IM 3+ 00:00:00 [facility] SARS-COV-2 COVID-19 2021-04-23 Completed Unive rsity of PFIZER VACCINE 00:00:00 [facility] SARS-COV-2 COVID-19 2021-04-23 Completed Unive rsity of ALY/J&J VACCINE 00:00:00 [facility] [place] [facility] SARS-COV-2 COVID-19 2021-04-23 Completed Unive rsity of PFIZER VACCINE 00:00:00 [facility] SARS-COV-2 COVID-19 2021-04-23 Completed Unive rsity of ALY/J&J VACCINE 00:00:00 [facility] [place] [facility] SARS-COV-2 COVID-19 2021-04-23 Completed Unive rsity of PFIZER VACCINE 00:00:00 [facility] SARS-COV-2 COVID-19 2021-04-23 Completed Unive rsity of ALY/J&J VACCINE 00:00:00 [facility] [place] [facility] SARS-COV-2 COVID-19 2021-04-23 Completed Unive rsity of PFIZER VACCINE 00:00:00 [facility] SARS-COV-2 COVID-19 2021-04-23 Completed Unive rsity of ALY/J&J VACCINE 00:00:00 [facility] [place] [facility] SARS-COV-2 COVID-19 2021-04-23 Completed Unive rsity of PFIZER VACCINE 00:00:00 [facility] SARS-COV-2 COVID-19 2021-04-23 Completed Unive rsity of ALY/J&J VACCINE 00:00:00 [facility] [place] [facility] SARS-COV-2 COVID-19 2021-04-23 Completed Unive rsity of PFIZER VACCINE 00:00:00 [facility] SARS-COV-2 COVID-19 2021-04-23 Completed Unive rsity of ALY/J&J VACCINE 00:00:00 [facility] [place] [facility] SARS-COV-2 COVID-19 2021-04-23 Completed Unive rsity of PFIZER VACCINE 00:00:00 [facility] SARS-COV-2 COVID-19 2021-04-23 Completed Unive rsity of ALY/J&J VACCINE 00:00:00 [facility] [place] [facility] SARS-COV-2 COVID-19 2021-04-23 Completed Unive rsity of PFIZER VACCINE 00:00:00 [facility] SARS-COV-2 COVID-19 2021-04-23 Completed Unive rsity of ALY/J&J VACCINE 00:00:00 [facility] Branch SARS-COV-2 COVID-19 2021-04-23 Completed Unive rsity of PFIZER VACCINE 00:00:00 [facility] Branch SARS-COV-2 COVID-19 2021-04-23 Completed Unive rsity of ALY/J&J VACCINE 00:00:00 [facility] Branch SARS-COV-2 COVID-19 2021-04-23 Completed Unive rsity of PFIZER VACCINE 00:00:00 [facility] Branch SARS-COV-2 COVID-19 2021-04-23 Completed Unive rsity of ALY/J&J VACCINE 00:00:00 [facility] Branch SARS-COV-2 COVID-19 2021-04-02 Completed Unive rsity of PFIZER VACCINE 00:00:00 [facility] SARS-COV-2 COVID-19 2021-04-02 Completed Unive rsity of ALY/J&J VACCINE 00:00:00 [facility] Branch SARS-COV-2 COVID-19 2021-04-02 Completed Unive rsity of PFIZER VACCINE 00:00:00 [facility] SARS-COV-2 COVID-19 2021-04-02 Completed Unive rsity of ALY/J&J VACCINE 00:00:00 [facility] Branch SARS-COV-2 COVID-19 2021-04-02 Completed Unive rsity of PFIZER VACCINE 00:00:00 [facility] SARS-COV-2 COVID-19 2021-04-02 Completed Unive rsity of ALY/J&J VACCINE 00:00:00 [facility] Branch SARS-COV-2 COVID-19 2021-04-02 Completed Unive rsity of PFIZER VACCINE 00:00:00 [facility] SARS-COV-2 COVID-19 2021-04-02 Completed Unive rsity of ALY/J&J VACCINE 00:00:00 [facility] Branch SARS-COV-2 COVID-19 2021-04-02 Completed Unive rsity of PFIZER VACCINE 00:00:00 [facility] SARS-COV-2 COVID-19 2021-04-02 Completed Unive rsity of ALY/J&J VACCINE 00:00:00 [place] [facility] SARS-COV-2 COVID-19 2021-04-02 Completed Unive rsity of PFIZER VACCINE 00:00:00 [facility] SARS-COV-2 COVID-19 2021-04-02 Completed Unive rsity of ALY/J&J VACCINE 00:00:00 [facility] [place] [facility] SARS-COV-2 COVID-19 2021-04-02 Completed Unive rsity of PFIZER VACCINE 00:00:00 [facility] SARS-COV-2 COVID-19 2021-04-02 Completed Unive rsity of ALY/J&J VACCINE 00:00:00 [facility] [place] [facility] SARS-COV-2 COVID-19 2021-04-02 Completed Unive rsity of PFIZER VACCINE 00:00:00 [facility] SARS-COV-2 COVID-19 2021-04-02 Completed Unive rsity of ALY/J&J VACCINE 00:00:00 [facility] [place] [facility] SARS-COV-2 COVID-19 2021-04-02 Completed Unive rsity of PFIZER VACCINE 00:00:00 [facility] SARS-COV-2 COVID-19 2021-04-02 Completed Unive rsity of ALY/J&J VACCINE 00:00:00 [facility] [place] [facility] SARS-COV-2 COVID-19 2021-04-02 Completed Unive rsity of PFIZER VACCINE 00:00:00 [facility] SARS-COV-2 COVID-19 2021-04-02 Completed Unive rsity of ALY/J&J VACCINE 00:00:00 [facility] [place] [facility] Influenza Virus 2020-05-12 Completed Universit y of Vaccine Quad IM 3+ 00:00:00 [facility] Influenza Virus 2020-05-12 Completed Universit y of Vaccine Quad IM 3+ 00:00:00 [facility] Influenza Virus 2020-05-12 Completed Universit y of Vaccine Quad IM 3+ 00:00:00 [facility] Influenza Virus 2020-05-12 Completed Universit y of Vaccine Quad IM 3+ 00:00:00 [facility] Influenza Virus 2020-05-12 Completed Universit y of Vaccine Quad IM 3+ 00:00:00 [facility] Influenza Virus 2020-05-12 Completed Universit y of Vaccine Quad IM 3+ 00:00:00 [facility] Influenza Virus 2020-05-12 Completed Universit y of Vaccine Quad IM 3+ 00:00:00 [facility] Influenza Virus 2020-05-12 Completed Universit y of Vaccine Quad IM 3 00:00:00 [facility] Influenza Virus 2020-05-12 Completed Universit y of Vaccine Quad IM 3 00:00:00 [facility] Influenza Virus 2020-05-12 Completed Universit y of Vaccine Quad IM 3+ 00:00:00 [facility] LIDOCAINE HCL LIDOCAINE HCL 2020-01-20 Completed Common S pirit - 10MG/ML 10MG/ML 08:45:00 [facility] LIDOCAINE HCL LIDOCAINE HCL 2020-01-20 Completed Common S pirit - 10MG/ML 10MG/ML 08:45:00 [facility] LIDOCAINE HCL LIDOCAINE HCL 2020-01-20 Completed Common S pirit - 10MG/ML 10MG/ML 08:45:00 [facility] LIDOCAINE HCL LIDOCAINE HCL 2020-01-20 Completed Common S pirit - 10MG/ML 10MG/ML 08:45:00 [facility] LIDOCAINE HCL LIDOCAINE HCL 2020-01-20 Completed Common S pirit - 10MG/ML 10MG/ML 08:45:00 [facility] LIDOCAINE HCL LIDOCAINE HCL 2020-01-20 Completed Common S pirit - 10MG/ML 10MG/ML 08:45:00 [facility] Depo-Medrol Depo-Medrol 2020-01-20 Completed Common Spiri t - (Methylprednisolone (Methylprednisolone 08:44:00 [facility] ) 40mg ) 40mg [facility] Depo-Medrol Depo-Medrol 2020-01-20 Completed Common Spiri t - (Methylprednisolone (Methylprednisolone 08:44:00 [facility] ) 40mg ) 40mg [facility] Depo-Medrol Depo-Medrol 2020-01-20 Completed Common Spiri t - (Methylprednisolone (Methylprednisolone 08:44:00 [facility] ) 40mg ) 40mg [facility] Depo-Medrol Depo-Medrol 2020-01-20 Completed Common Spiri t - (Methylprednisolone (Methylprednisolone 08:43:00 [facility] ) 40mg ) 40mg [facility] Depo-Medrol Depo-Medrol 2020-01-20 Completed Common Spiri t - (Methylprednisolone (Methylprednisolone 08:43:00 [facility] ) 40mg ) 40mg [facility] Depo-Medrol Depo-Medrol 2020-01-20 Completed Common Spiri t - (Methylprednisolone (Methylprednisolone 08:43:[address] [facility] ) 40mg ) 40mg [facility] Influenza Virus 2019-09-13 Completed Universit y of Vaccine Quad IM 3+ 00:00:00 [facility] Influenza Virus 2019-09-13 Completed Universit y of Vaccine Quad IM 3+ 00:00:00 [facility] Influenza Virus 2019-09-13 Completed Universit y of Vaccine Quad IM 3+ 00:00:00 [facility] Influenza Virus 2019-09-13 Completed Universit y of Vaccine Quad IM 3+ 00:00:00 [facility] Influenza Virus 2019-09-13 Completed Universit y of Vaccine Quad IM 3+ 00:00:00 [facility] Influenza Virus 2019-09-13 Completed Universit y of Vaccine Quad IM 3+ 00:00:00 [facility] Influenza Virus 2019-09-13 Completed Universit y of Vaccine Quad IM 3+ 00:00:00 [facility] Influenza Virus 2019-09-13 Completed Universit y of Vaccine Quad IM 3+ 00:00:00 [facility] Influenza Virus 2019-09-13 Completed Universit y of Vaccine Quad IM 3+ 00:00:00 [facility] Influenza Virus 2019-09-13 Completed Universit y of Vaccine Quad IM 3+ 00:00:00 [facility] Vital Signs Vital Name Observation Time Observation Value Comments Source Body weight 2022-09-10 21:39:00 113.399 kg [facility] BMI 2022-09-10 21:39:00 47.24 kg/m2 [facility] Systolic blood 2022-06-12 18:06:00 155 mm[Hg] Univer sity of pressure [facility] [place] [facility] Diastolic blood 2022-06-12 18:06:00 84 mm[Hg] Unive rsity of pressure [facility] [place] [facility] Heart rate 2022-06-12 18:06:00 90 /min [facility] Body temperature 2022-06-12 18:06:00 36 Vika [facility] Respiratory rate 2022-06-12 18:06:00 18 /min [facility] Oxygen saturation in 2022-06-12 18:06:00 94 /min [facility] blood by [facility] Pulse oximetry Branch Body weight 2022-06-11 09:20:00 113.49 [address] [facility]i [facility] BMI 2022-06-11 09:20:00 47.27 kg/m2 Universi ty [facility] Body height 2022-06-11 01:52:00 154.9 cm [facility]i ty [facility] Systolic blood 2022-04-19 13:32:00 127 mm[Hg] Univer sity of pressure [facility] [place] [facility] Diastolic blood 2022-04-19 13:32:00 67 mm[Hg] [facility] Heart rate 2022-04-19 13:32:00 88 /min Universi ty [facility] Body height 2022-04-19 13:32:00 154.9 cm [facility]i [facility] Body weight 2022-04-19 13:32:00 117.028 kg [facility]i [facility] BMI 2022-04-19 13:32:00 48.75 kg/m2 Universi ty [facility] Body height 2020-12-18 16:17:00 [facility] 2020-12-18 16:17:00 [facility] BMI 2020-12-18 16:17:00 46.64 kg[facility] Body height 2020-12-18 16:17:00 [facility] Body weight 2020-12-18 16:17:00 115[facility]667 [facility] BMI 2020-12-18 16:17:00 46.64 kg[facility] Procedures Procedure Date / Time Performing Clinician Source Performed EXTERNAL PROVIDER 2022-09-17 06:01:00 Doctor Unassigned, No [facility] RECORDS Name Medical Branch ASSIGNMENT OF BENEFITS 2022-09-10 21:32:35 Doctor Unassigned, No [facility] Name [facility] Branch POCT GLUCOSE (AUTOMATED) 2022-06-12 18:08:00 Annamaria Barker [facility] BASIC METABOLIC PANEL 2022-06-12 09:27:00 Jimmy Rowland [facility] (NA, K, CL, CO2, Medical Branch GLUCOSE, BUN, CREATININE, CA) CBC WITH DIFF 2022-06-12 09:27:00 Jimmy Rowland [facility] POCT GLUCOSE (AUTOMATED) 2022-06-12 07:56:00 Annamaria Barker [facility] POCT GLUCOSE (AUTOMATED) 2022-06-12 01:45:00 Annamaria Barker [facility] POCT GLUCOSE (AUTOMATED) 2022-06-11 22:56:00 Annamaria Barker [facility] POCT GLUCOSE (AUTOMATED) 2022-06-11 18:11:00 Annamaria Barker [facility] POCT GLUCOSE (AUTOMATED) 2022-06-11 14:05:00 Annamaria Barker [facility] PHOSPHORUS 2022-06-11 10:40:00 Bhaskar [facility] CREATINE KINASE 2022-06-11 10:40:00 Bhaskar [facility] AMYLASE 2022-06-11 10:40:00 Bhaskar [facility] LIPASE 2022-06-11 10:40:00 Bhaskar [facility] MAGNESIUM 2022-06-11 10:40:00 Bhaskar [facility] COMP. METABOLIC PANEL 2022-06-11 10:40:00 Robbi Muro [facility] ([id number]) [facility] CBC WITH DIFF 2022-06-11 10:40:00 Bhaskar ender [facility] GLYCOSYLATED HEMOGLOBIN 2022-06-11 10:40:00 Jimmy Rowland [facility] (A1C) [facility] N-TERMINAL PRO-BNP 2022-06-11 10:40:00 Robbi Muro [facility] POCT GLUCOSE (AUTOMATED) 2022-06-11 07:56:00 Annamaria Barker [facility] URINE CULTURE 2022-06-11 05:18:00 Bhaskar ender [facility] PROTHROMBIN TIME / INR 2022-06-11 03:24:00 Robbi Muro [facility] LACTIC ACID WHOLE BLOOD 2022-06-11 03:18:00 Robbi Muro [facility] C-REACTIVE PROTEIN 2022-06-11 03:17:00 Bhaskar ender [facility] SEDIMENTATION RATE 2022-06-11 03:17:00 Bhaskar [facility] PROCALCITONIN 2022-06-11 03:17:00 Bhaskar ender [facility] US OVARY TORSION 2022-06-10 22:01:56 Brodie Clemons [facility] URINALYSIS 2022-06-10 19:14:00 Brodie Clemons [facility] CT ABDOMEN PELVIS WO 2022-06-10 18:36:[address] [facility] CONTRAST [facility] PHOSPHORUS 2022-06-10 17:54:00 Bhaskar [facility] URIC ACID 2022-06-10 17:54:00 Bhaskar [facility] LIPASE 2022-06-10 17:54:00 Brodie Clemons [facility] MAGNESIUM 2022-06-10 17:54:00 Bhaskar [facility] FERRITIN SERUM 2022-06-10 17:54:00 Bhaskar [facility] HEPATIC FUNCTION PANEL 2022-06-10 17:54:00 Brodie Clemons [facility] ([id number]) (ALB,T.PRO,BILI [facility] Branch T,BU/BC,ALT,AST,ALK PHOS) BASIC METABOLIC PANEL 2022-06-10 17:54:00 Brodie Clemons [facility] (NA, K, CL, CO2, Medical Branch GLUCOSE, BUN, CREATININE, CA) IRON PANEL 2022-06-10 17:54:00 Bhaskar [facility] CBC WITH DIFF 2022-06-10 17:54:00 Brodie Clemons [facility] N-TERMINAL PRO-BNP 2022-06-10 17:54:00 Bhaskar ender [facility] CONSENT/REFUSAL FOR 2022-06-10 17:38:54 Doctor Unassigned, No Un [facility] DIAGNOSIS AND TREATMENT Name Medical Branch Encounters Start End Encounter Admission Attending Care Care Encounter Source Date/Time Date/Time Type Type Clinicians Facility Department ID 2022-09-17 [id number] Univers 09:38:49 [facility] 2022-01-04 [facility] [id number] Univers 12:25:16 [facility] 2021-08-29 Outpatient [facility] Common 12:51:44 [id number] [facility] 2021-08-29 [facility] Common 11:59:56 [id number] [facility] 2021-08-29 [facility] Common 11:28:05 [id number] [facility] 2021-08-29 [facility] Common 11:27:12 [id number] [facility] 2021-06-01 Emergency [facility] [id number] Univers 02:46:06 [facility] 2020-12-18 Outpatient [facility] [id number] [place] 09:37:27 [facility] 2020-12-18 Outpatient [facility] [id number] [place] 09:37:27 [facility] 2020-12-18 Outpatient [facility] [id number] [place] 09:37:27 [facility] 2020-12-15 Outpatient [facility] [id number] [place] 12:03:34 [facility] 2020-12-15 Outpatient [facility] [id number] [place] 12:03:34 [facility] 2020-12-15 Outpatient [facility] [id number] [place] 12:00:05 [facility] 2020-12-09 Outpatient STARR [facility] [id number] [place] 04:06:39 [facility] 2022-09-19 2022-09-19 Outpatient [facility] [id number] [facility] 00:00:00 00:00:00 [facility] [place] 2022-09-17 2022-09-17 Orders Doctor COSTELLO 1.2.840.114 [id number] Univers 00:00:00 00:00:00 Only Unassigned, DIONICIO 350.1.13.10 ity of [facility] 4.2.7.2.686 Blaze as [phone] [address] 2022-09-16 2022-09-16 [facility] 1.2.840.114 [id number] Univers 00:00:00 00:00:00 Surgery Kayla L HEALTH 350.1.13.10 it y of [place] 4.2.7.2.686 Blaze as GREGOR?BLEA [phone] Wi betsy [address] OFFICE [facility] 2022-09-10 2022-09-10 Outpatient [facility] [id number] Univers 16:30:00 23:59:00 BERNICE ity of [facility] 2022-09-10 2022-09-10 Office [facility] 1.2.840.114 [id number] Univers 16:00:00 16:15:00 Visit [facility] HEALTH 350.1.13.10 it y [facility] 4.2.7.2.686 Blaze as GREGOR?BLEA [phone] [address] OFFICE [facility] 2022-09-10 2022-09-10 Orders Doctor TRANG 1.2.840.114 [id number] Univers 00:00:00 00:00:00 Only Unassigned, DIONICIO 350.1.13.10 ity of [facility] 4.2.7.2.686 Blaze as [phone] [address] 2022-09-10 2022-09-[address] [facility] 1.2.147.918 [id number] Univers 00:00:00 00:00:00 Bernice S HEALTH 350.1.13.10 it y of [place] 4.2.7.2.686 Blaze as GREGOR?BLEA [phone] [facility] [address] OFFICE [facility] 2022-09-09 2022-09-09 Telephone [facility] 1.2.642.254 [id number] [id number] Univers 00:00:00 00:00:00 Bernice S HEALTH 350.1.13.10 it y of [place] 4.2.7.2.686 Blaze as GREGOR?BLEA [phone] Me betsy PAREDES [address] [place] MEDICAL OFFICE [facility] 2022-06-13 2022-06-13 Transition TOM Cornejo 1.2.840.114 [id number] Univers 00:00:00 00:00:00 of Dinesh SIMS 350.1.13.10 it y of [place].2.[place] [phone] [facility] [address] 2022-06-10 2022-06-12 Outpatient X [facility] [id number] Univers 11:37:00 16:00:[address] [facility] 2022-06-10 2022-06-12 Emergency Brodie Clemons [facility] 1.2.840.1 14 [id number] Univers 11:37:00 16:00:00 Annamaria Barker 350.1.13.10 ity of [facility] 4.2.7.2.686 [place] [phone] [facility] [address] [place] 2022-04-19 2022-04-19 Outpatient Shira COLUNGA [facility] [id number] Univers 08:55:00 23:59:00 [facility] 2022-04-19 2022-04-19 Outpatient Shira [facility] [id number] Univers 08:55:00 23:59:00 [facility] 2022-04-19 2022-04-19 Office [facility] 1.2.840.114 [id number] Univers 08:45:00 09:00:00 Visit [facility] 350.1.13.10 it y [facility] 4.2.7.2.686 Blaze as GREGOR?BLEA [phone] Wi betsy PAREDES [address] [facility] OFFICE [facility] 2022-02-25 2022-02-25 Outpatient Shira COLUNGA [facility] [id number] Univers 15:15:00 15:15:00 [facility] 2022-02-21 2022-02-21 Outpatient Shira COLUNGA [facility] [id number] Univers 10:45:00 10:45:00 BERNICE [facility] 2022-02-18 2022-02-18 Outpatient R ROSALIE, [facility] [id number] Univers 10:30:00 10:30:00 CHISONALISHANA ity o f [facility] 2022-01-18 2022-01-18 Outpatient R [facility] [id number] Univers 10:00:00 10:00:00 CLAYTON [facility] 2022-01-17 2022-01-17 [facility] 1.2.854.473 [id number] Univers 00:00:00 00:00:00 Kayla Serra HEALTH 350.1.13.10 it y of [place] 4.2.7.2.686 Blaze as GREGOR?BLEA [phone] Wi ag[address] MEDICAL OFFICE BUILDING 2022-01-14 2022-01-14 Outpatient R [facility] SOR [id number] Univers 06:59:00 09:15:[address] [facility] 2022-01-14 2022-01-14 [facility] 1.2.840.114 [id number] Univers 06:59:00 09:15:00 Encounter Kayla MEEKS 350.1.13.10 ity of [facility] 4.2.7.2.686 [place] [phone] [facility] [address] [place] 2022-01-14 2022-01-14 Surgery [facility] 1.2.485.327 [id number] Univers 08:20:00 09:12:00 Kayla MEEKS 350.1.13.10 i ty of [place] 4.2.7.2.686 [place] SURGICAL [phone] [facility] [address] [place] 2022-01-14 2022-01-14 Anesthesia Bharath Padgett [facility] 1.2.840.11 4 [id number] Univers 08:25:00 08:39:00 Event Trang Hunt 350.1.13.10 ity of [place] 4.2.7.2.686 [place] SURGICAL [id number] [facility] [address] [place] 2022-01-14 2022-01-14 Orders Doctor COSTELLO 1.2.840.114 [id number] Univers 00:00:00 00:00:00 Only Unassigned, DIONICIO 350.1.13.10 ity of [facility] 4.2.7.2.686 Blaze as [phone] [facility] [address] 2022-01-11 2022-01-11 Hospital [facility] 1.2.840.114 [id number] Univers 07:39:32 23:59:00 Encounter Kayla MEEKS 350.1.13.10 ity of [facility] 4.2.7.2.686 [place] [phone] [facility] [address] 2022-01-11 2022-01-11 Outpatient [facility] [id number] Univers 07:39:18 23:59:[address] [facility] 2022-01-11 2022-01-11 It Assistant Luzmaria, Adc Lab Main [facility] 1.2.8 40.114 [id number] Univers 08:30:00 08:45:00 Visit Kayla Lutz Ponce MEEKS 350.1.13.10 ity of [facility] 4.2.7.2.686 [place] [phone] [facility] 353 [facility] 2022-01-11 2022-01-11 Laboratory Only, Adc Test [facility] 1.2.840. 114 [id number] Univers 08:15:00 08:30:00 Only Kayla Lutz Ponce JEANNA 350.1.13.10 ity of [facility] 4.2.7.2.686 [place] [id number] [facility] [address] [place] 2022-01-11 2022-01-11 Outpatient R BOLIVAR [facility] [id number] Univers 08:15:00 08:15:[address] [facility] 2022-01-11 2022-01-11 Telephone Bolivar [facility] 1.2.840.114 [id number] Univers 00:00:00 00:00:00 Kayla Serra HEALTH 350.1.13.10 it y [facility] 4.2.7.2.686 Blaze as GREGOR?BLEA [phone] Wi dical KNEY [address] MEDICAL OFFICE BUILDING 2022-01-04 2022-01-[address] [facility] 1.2.840.114 [id number] Univers 11:15:00 11:30:00 Visit Bernice Singer HEALTH 350.1.13.10 it y of [place] 4.2.7.2.686 Blaze as GREGOR?BLEA [phone] Wi betsy PAREDES [address] [place] [address] OFFICE [facility] 2022-01-04 2022-01-04 Outpatient R KEANU [facility] [id number] Univers 11:15:00 11:15:00 [facility] 2022-[facility]-04 2022-01-04 Outpatient [facility] [id number] Univers 11:15:00 11:15:00 [facility] 2022-01-04 2022-01-04 Prep [facility] 1.2.840.114 [id number] Univers 00:00:00 00:00:00 Surgery Kayla Serra HEALTH 350.1.13.10 it y of [place] 4.2.7.2.686 Blaze as GREGOR?BLEA [phone] Wi betsy PAREDES [address] [place] [address] OFFICE [facility] 2021-12-20 2021-12-20 Outpatient [facility] [id number] Univers 10:00:00 10:00:00 [facility] 2021-12-11 2021-12-11 Telephone [facility] 1..840.114 93 [id number] Univers 00:00:00 00:00:00 Kayla Serra HEALTH 350.1.13.10 it y of [place] 4.2.7.2.686 Blaze as GREGOR?BLEA [phone] Wi betsy PAREDES [address] [place] [address] OFFICE [facility] 2021-12-07 2021-12-07 Outpatient [facility] [id number] Univers 10:23:58 23:59:00 [facility] 2021-12-07 2021-12-07 [facility] 1.2.840.114 [id number] Univers 10:23:58 23:59:00 Encounter Bernice Singer [place] 350.1.13.10 ity of [facility] 4.2.7.2.686 [place] [facility] [phone] [facility] [address] [place] 2021-11-30 2021-11-30 Outpatient [facility] [id number] Univers 10:45:00 11:13:[address] [facility] 2021-11-30 2021-11-[address] [facility] 1.2.840.114 [id number] Univers 10:45:00 11:13:44 Visit Bernice [facility] 350.1.13.10 it y of [place] 4.2.7.2.686 Blaze as GREGOR?BLEA [phone] Wi ag[address] OFFICE [facility] 2021-11-30 2021-11-30 Outpatient R [facility] [id number] Univers 10:45:00 11:13:[address] [facility] 2021-11-28 2021-11-28 Telephone [facility] 1.2.840.114 [id number] Univers 00:00:00 00:00:00 [facility] HEALTH 350.1.13.10 it y of [place] 4.2.7.2.686 Blaze as GREGOR?BLEA [phone] Wi ag[address] MEDICAL OFFICE [facility] 2021-11-28 2021-11-28 Orders Doctor TRANG 1.2.840.114 [id number] Univers 00:00:00 00:00:00 Only Unassigned, DIONICIO 350.1.13.10 ity of [place] [facility] 4.2.7.2.686 Blaze as [phone] [facility] [address] [place] 2021-11-27 2021-11-27 Telephone [facility] 1.2.840.114 [id number] Univers 00:00:00 00:00:00 Kayla HEALTH 350.1.13.10 it y of [facility] 4.2.7.2.686 Blaze as GREGOR?BLEA [phone] Wi betsy [address] MEDICAL OFFICE [facility] 2021-11-22 2021-11-22 Orders Doctor TRANG 1.2.840.114 [id number] Univers 00:00:00 00:00:00 Only Unassigned, DIONICIO 350.1.13.10 [facility] 4.2.7.2.686 Blaze as [phone] [address] 2021-11-21 2021-11-21 Telephone [facility] 1.2.840.114 [id number] Univers 00:00:00 00:00:00 Kayla L HEALTH 350.1.13.10 it y of [place] 4.2.7.2.686 Blaze as GREGOR?BLEA [phone] Wi betsy PAREDES [address] [place] MEDICAL OFFICE [facility] 2021-11-21 2021-11-21 Telephone [facility] 1.2.840.114 [id number] Univers 00:00:00 00:00:00 Kayla L HEALTH 350.1.13.10 it y of [place] 4.2.7.2.686 Blaze as GREGOR?BLEA [phone] Wi betsy PAREDES [address] [facility] OFFICE [facility] 2021-11-19 2021-11-[address] [facility] 1.2.561.332 [id number] Univers 00:00:00 00:00:00 [facility] HEALTH 350.1.13.10 it y of [place] 4.2.7.2.686 Blaze as GREGOR?BLEA [phone] Wi betsy PAREDES [address] [facility] OFFICE [facility] 2021-11-19 2021-11-19 Telephone [facility] 1.2.840.114 [id number] Univers 00:00:00 00:00:00 Kayla L HEALTH 350.1.13.10 it y of [place] 4.2.7.2.686 Blaze as GREGOR?BLEA [phone] Wi betsy PAREDES [address] [facility] OFFICE [facility] 2021-11-12 2021-11-12 Telephone [facility] 1.2.840.114 [id number] Univers 00:00:00 00:00:00 Kayla L HEALTH 350.1.13.10 it y of [place] 4.2.7.2.686 Blaze as GREGOR?BLEA [phone] Wi betsy PAREDES [address] [facility] OFFICE [facility] 2021-10-29 2021-10-29 [facility]phone [facility] 1.2.840.114 [id number] Univers 00:00:00 00:00:00 Kayla L HEALTH 350.1.13.10 it y of [place] 4.2.7.2.686 Blaze as GREGOR?BLEA [phone] Me agal LINDA 198 [facility] OFFICE BUILDING 2021-10-26 2021-10-26 Telephone [facility] 1.2.840.114 [id number] Univers 00:00:00 00:00:00 Kayla L HEALTH 350.1.13.10 it y of [place] 4.2.7.2.686 Blaze as GREGOR?BLEA [phone] Me betsy PAREDES [address] [facility] OFFICE [facility] 2021-10-24 2021-10-24 Outpatient Shira COLUNGA [facility] [id number] Univers 09:30:00 10:20:40 [facility] 2021-10-24 2021-10-24 Office [facility] 1.2.840.114 [id number] Univers 09:30:00 10:20:40 Visit Bernice S HEALTH 350.1.13.10 it y of [place] 4.2.7.2.686 Blaze as GREGOR?BLEA [phone] Wi betsy PAREDES [address] [facility] OFFICE [facility] 2021-10-24 2021-10-24 Outpatient Shira [facility] [id number] Univers 09:30:00 10:20:40 [facility] 2021-10-24 2021-10-24 Office [facility] 1.2.840.114 [id number] Univers 09:30:00 10:20:40 Visit Bernice S HEALTH 350.1.13.10 it y of [place] 4.2.7.2.686 Blaze as GREGOR?BLEA [phone] Wi betsy PAREDES [address] [facility] OFFICE [facility] 2021-10-19 2021-10-19 Telephone [facility] 1.2.750.164 [id number] Univers 00:00:00 00:00:00 Bernice S HEALTH 350.1.13.10 it y of [place] 4.2.7.2.686 Blaze as GREGOR?BLEA [phone] Wi dical LINDA [address] [facility] OFFICE [facility] 2021-10-182021-10-[address] [facility] 1.2.836.815 [id number] Univers 00:00:00 00:00:00 Bernice S HEALTH 350.1.13.10 it y [facility] 4.2.7.2.686 Blaze as GREGOR?BLEA [phone] Wi betsy FERNANDEZ [address] [facility] OFFICE [facility] 2021-10-12 2021-10-12 Outpatient R RENÉE AGUILERA [facility] [id number] Univers 14:00:00 15:00:16 RENÉE AGUILERA [facility] 2021-10-02 2021-10-02 Telephone [facility] 1.2.954.495 [id number] Univers 00:00:00 00:00:00 Bernice S HEALTH 350.1.13.10 it y of [facility] 4.2.7.2.686 Blaze as GREGOR?BLEA [phone] Wi agbernard [facility] 198 [facility] 2021-10-02 2021-10-02 Orders Doctor TRANG 1.2.840.114 [id number] Univers 00:00:00 00:00:00 Only Unassigned, DIONICIO 350.1.13.10 ity of [facility] 4.2.7.2.686 Blaze as [phone] [address] 2021-09-27 2021-09-27 Orders Doctor TRANG 1.2.840.114 [id number] Univers 00:00:00 00:00:00 Only Unassigned, DIONICIO 350.1.13.10 ity of [facility] 4.2.7.2.686 Blaze as [phone] [address] 2021-09-24 2021-09-24 Outpatient Shira COLUNGA [facility] [id number] Univers 15:50:00 23:59:00 BERNICE [facility] 2021-07-02 2021-07-02 (TEL) STLMLC STLMLC [id number] Co mmon 00:00:00 00:00:00 [facility] 2021-06-27 2021-06-27 Outpatient Shira COLUNGA [facility] [id number] Univers 14:15:00 14:15:00 [facility] 2021-06-27 2021-06-27 Outpatient [facility] [id number] Univers 14:15:00 14:15:00 [facility] 2021-06-27 2021-06-[address] [facility] 1.2.840.114 [id number] Univers 13:39:57 13:54:57 Visit Bernice S HEALTH 350.1.13.10 it y of [place] 4.2.7.2.686 Blaze as GREGOR?BLEA [phone] Wi betsy PAREDES 198 [facility] 2021-06-26 2021-06-26 Outpatient [facility] [id number] Univers 15:45:00 15:45:00 [facility] 2021-06-26 2021-06-26 Outpatient Shira [facility] [id number] Univers 15:45:00 15:45:00 [facility] 2021-06-25 2021-06-[address] [facility] 1.2.975.518 [id number] Univers 00:00:00 00:00:00 Bernice S [place] 350.1.13.10 i ty of [facility] 4.2.7.2.686 [place] [phone] Wi betsy JEAN-BAPTISTE 198 [facility] 2021-05-23 2021-05-[address] [facility] 1.2.014.649 [id number] Univers 00:00:00 00:00:00 Bernice S Health 350.1.13.10 it y of [place] 4.2.7.2.686 Blaze as Gregor?Blea [phone] Wi dicbernard paredes 198 [facility] 2021-05-22 2021-05-22 [facility] 1.2.840.114 [id number] Univers 13:00:00 23:59:00 Encounter Bernice S Health 350.1.13.10 ity of [place] 4.2.7.2.686 Blaze as Gregor?Blea [phone] Wi dicbernard paredes 809 [facility] 2021-05-22 2021-05-22 Outpatient R [facility] [id number] Univers 16:15:00 14:56:[address] [facility] 2021-05-22 2021-05-22 Outpatient Shira COLUNGA [facility] [id number] Univers 16:15:00 14:56:[address] [facility] 2021-05-22 2021-05-22 Office [facility] 1.2.840.114 [id number] Univers 12:47:56 14:56:21 Visit Bernice [facility] 350.1.13.10 it y of [place] 4.2.7.2.686 Blaze as Gregor?Blea [phone] Wi dical kney [address] [place] Medical Office [facility] 2021-05-22 2021-05-22 Orders Doctor TRANG 1.2.840.114 [id number] Univers 00:00:00 00:00:00 Only Unassigned, DIONICIO 350.1.13.10 ity of [place] [facility] 4.2.7.2.686 Blaze as [phone] [address] 2021-04-23 2021-04-23 Outpatient [facility] [id number] Univers 10:10:00 10:10:[address] [facility] 2021-04-23 2021-04-23 Imm/Inj Nurse, Adc Pob Immunization [facility] 1.2.840.114 [id number] Univers 10:00:06 10:00:17 Visit Andrew Resendiz 350.1.13 .10 ity [place].2.7.2.686 [place] [phone] Wi betsy jean-baptiste 421 [facility] 2021-04-02 2021-04-02 Outpatient [facility] [id number] Univers 14:40:00 14:40:[address] [facility] 2021-04-02 2021-04-02 Imm/Inj Nurse, Adc Pob Immunization [facility] 1.2.840.114 [id number] Univers 13:41:25 13:41:44 Visit Andrew Resendiz 350.1.13 .10 ity [facility] 4.2.7.2.686 [place] Profess[place] [phone] Wi dical nal [address] [facility] 2021-01-26 2021-01-26 Refill Starr ANISHA 1.2.840.114 [id number] [place] 00:00:00 00:00:00 [place] 350.1.13.58 [facility] Lillie TORRES 9.2.7.2.686 SPECIALTY [phone] CLINIC 1 2021-01-26 2021-01-26 Refill Starr [facility] 1.2.840.114 [id number] 00:00:00 00:00:00 [place] 350.1.13.58 Lillie TORRES 9.2.7.2.686 SPECIALTY [phone] CLINIC 1 2020-12-18 2020-12-18 Office Timbo [facility] 1.2.840.114 [id number] [place] 09:22:21 12:11:17 Visit PAUL [place] 350.1.13.58 H [facility] 9.2.7.2.686 [address] [phone] 7 2020-12-18 2020-12-18 Office Timbo [facility] 1.2.840.114 [id number] 09:22:21 12:11:17 Visit PAUL [place] 350.1.13.58 [facility] 9.2.7.2.686 [address] [id number] 7 2020-09-06 2020-09-06 (TEL) STLMLC STLMLC [id number] Co mmon 00:00:00 00:00:00 [facility] 2020-07-20 2020-07-20 (TEL) STLMLC STLMLC [id number] Co mmon 00:00:00 00:00:00 [facility] 2020-07-12 2020-07-12 (TEL) STLMLC STLMLC [id number] Co mmon 00:00:00 00:00:00 [facility] 2020-06-21 2020-06-21 Outpatient STLMLC STLMLC [id number] Common 00:00:00 00:00:00 [facility] 2020-06-12 2020-06-12 [facility] [id number] Common 00:00:00 00:00:00 [facility] 2020-06-06 2020-06-06 [facility] [id number] Common 00:00:00 00:00:00 [facility] 2020-01-26 2020-01-26 Emergency Lazar, [facility] 1.2.359.094 [id number] [facility] 20:05:19 21:04:00 Calin Meeks 350.1.13.10 i ty of [place] 4.2.7.2.686 [facility] s Winder [phone] [facility] danielle [address] 2020-01-26 2020-01-26 Emergency Lazar, [facility] 1.2.549.798 [id number] [id number] 20:05:19 21:04:00 Calin Meeks 350.1.13.10 [place] 4.2.7.2.686 [place] [phone] [facility] 2020-01-26 2020-01-26 Orders Doctor COSTELLO 1.2.840.114 [id number] 00:00:00 00:00:00 Only Unassigned, DIONICIO 350.1.13.10 [place] [facility] 4.2.7.2.686 [id number] 009 2020-01-26 2020-01-26 Orders Doctor COSTELLO 1.2.840.114 [id number] [facility] 00:00:00 00:00:00 Only Unassigned, DIONICIO 350.1.13.10 ity of [place] [facility] 4.2.7.2.686 Blaze [phone] [facility] danielle [address] 2020-01-20 2020-01-20 [facility] [id number] Common 08:00:00 08:00:00 [facility] 2020-01-20 2020-01-20 Orders Doctor TRANG Bolanos2.840.114 [id number] 00:00:00 00:00:00 Only Unassigned, DIONICIO 350.1.13.10 [place] [facility] 4.2.7.2.686 [id number] 009 2020-01-20 2020-01-20 Orders Doctor TRANG 1Yohana2.840.114 [id number] 43 Univers 00:00:00 00:00:00 Only Unassigned, DIONICIO 350.1.13.10 ity of [place] [facility] 4.2.7.2.686 Blaze as [phone] [address] Results Test Description Test Time Test Comments Results Result Comments Source POCT GLUCOSE (AUTOMATED) 2022-06-12 18:17:12 Test Item Value Reference Range Interpretation Comme nts POCT GLU (test code = 9564325157) 161 mg/dL 70-110 H Lab Interpretation (test code = 61378-8) Abnormal [facility] GLUCOSE (AUTOMATED)2022-06-12 08:00:25 Test Item Value Reference Range Interpretation Comments POCT GLU (test code = 8277197035) 122 mg/dL 70-110 H Lab Interpretation (test code = Abnormal 74347-8) [facility] GLUCOSE (AUTOMATED)2022-06-12 01:58:54 Test Item Value Reference Range Interpretation Comments POCT GLU (test code = 0750267282) 124 mg/dL 70-110 H Lab Interpretation (test code = Abnormal 04642-2) [facility] GLUCOSE (AUTOMATED)2022-06-11 22:59:46 Test Item Value Reference Range Interpretation Comments POCT GLU (test code = 2579238095) 115 mg/dL 70-110 H Lab Interpretation (test code = Abnormal 67393-3) [facility] GLUCOSE (AUTOMATED)2022-06-11 22:59:46 Test Item Value Reference Range Interpretation Comments POCT GLU (test code = 7278753698) 104 mg/dL 70-110 Lab Interpretation (test code = Normal 87586-1) [facility] GLUCOSE (AUTOMATED)2022-06-11 14:11:49 Test Item Value Reference Range Interpretation Comments POCT GLU (test code = 1853776130) 91 mg/dL 70-110 Lab Interpretation (test code = Normal 45736-0) [id number] 09:07:50 Test Item Value Reference Range Interpretation Comments IRON (test code = 3561250314) 39 ug/dL 50-160 L TIBC (test code = 1351065872) 346 ug/dL 250-410 % FE SAT (test code = 1020509779) 11 % 20-50 L Lab Interpretation (test code = Abnormal 83054-0) [facility] [id number] 08:27:06 Test Item Value Reference Range Interpretation Comments FERRITIN (test code = 7.5 ng/mL 11.0-264.0 L 6106123070) SRIRAM (test code = SRIRAM) Biotin has been reported to cause a negative bias, interpret results relative to patient's use of biotin. Lab Interpretation (test Abnormal code = 81754-4) [facility] [id number] 08:01:40 Test Item Value Reference Range Interpretation Comments NT-proBNP (test code 39 pg/mL See_Comment [Autom ated = [id number]) message] The system which generated this result transmitted reference range : <=125. The reference range was not used to interpret this result as normal/abnormal . SRIRAM (test code = SRIRAM) Biotin has been reported to cause a negative bias, interpret results relative to patient's use of biotin. Lab Interpretation Normal (test code = 51144-5) [facility]-11 07:59:15 Test Item Value Reference Range Interpretation Comments POCT GLU (test code = 7034239809) 141 mg/dL 70-110 H Lab Interpretation (test code = Abnormal 27167-3) [facility] 07:59:15 Test Item Value Reference Range Interpretation Comments MAGNESIUM (test code = 8188103275) 1.6 mg/dL 1.7-2.4 L Lab Interpretation (test code = Abnormal 81308-5) [facility] 07:59:10 Test Item Value Reference Range Interpretation Comments PHOSPHORUS (test code = 4934663531) 2.6 mg/dL 2.5-5.0 Lab Interpretation (test code = Normal 64112-3) [facility] [id number] 07:59:05 Test Item Value Reference Range Interpretation Comments URIC ACID (test code = 8588719301) 3.0 mg/dL 2.9-6.0 Lab Interpretation (test code = Normal 55642-7) [facility] (NA, K, CL, CO2, GLUCOSE, BUN, CREATININE, CA)2022-06-10 18:34:39 Test Item Value Reference Range Interpretation Comments NA (test code = 139 mmol/L 135-145 7177196493) K (test code = 4.2 mmol/L 3.5-5.0 7736045471) CL (test code = 105 mmol/L 98-108 9572678585) CO2 TOTAL (test code 28 mmol/L 23-31 = 0592156903) AGAP (test code = 2-16 1960967333) BUN (test code = 15 mg/dL 7-23 2526713907) GLUCOSE (test code = 106 mg/dL 70-110 2117786562) CREATININE (test code 0.75 mg/dL 0.50-1.04 = 0766001433) CALCIUM (test code = 9.0 mg/dL 8.6-10.6 2243016879) eGFR (test code = mL/min/1.73m2 6268189241) SRIRAM (test code = SRIRAM) Association of [...] or urine or abnormalities in imaging tests). [facility]382[facility] (ALB,T.PRO,BILI T,BU/BC,ALT,AST,ALK PHOS)2022-06-10 18:34:39 Test Item Value Reference Range Interpretation Comments TOTAL BILI (test code = 2178447219) 0.4 mg/dL 0.1-1.1 BILI UNCON (test code = 2858765810) 0.2 mg/dL 0.1-1.1 BILI CONJ (test code = 5295001047) 0.0 mg/dL 0.0-0.3 T PROTEIN (test code = 9032717735) 6.9 g/dL 6.3-8.2 ALBUMIN (test code = 0843695581) 4.0 g/dL 3.5-5.0 ALK PHOS (test code = 1707067444) 139 U/L 34-122 H ALTv (test code = 1742-6) 23 U/L 5-35 AST(SGOT) (test code = 2695644280) 21 U/L 13-40 Lab Interpretation (test code = Abnormal 79875-8) [facility] 18:34:39 Test Item Value Reference Range Interpretation Comments LIPASE (test code = 5131320996) 108 U/L 0-220 Lab Interpretation (test code = Normal 31078-4) [facility] [id number] 18:27:20 Test Item Value Reference Range Interpretation Comments WBC (test code = See_Comment [Automated message] 6690-2) The system [employer] generated this result transmitted ref erence range: 4.30 - 1 1.10 10*3/?L. The re ference range was not u sed to interpret this result as normal/abnor mal. RBC (test code = See_Comment [Automated message] 789-8) The system [employer] generated this result transmitted ref erence range: [...] RDW-SD (test code 48.3 fL 39.0-49.9 = 80212-6) RDW-CV (test code 15.4 % 12.0-15.5 = 788-0) PLT (test code = See_Comment [Automated message] 777-3) The system whic h generated this result transmitted ref erence range: 166 - 35 8 10*3/?L. The re ference range was not u sed to interpret this result as normal/abnor mal. MPV (test code = 10.4 fL 9.5-12.9 69153-2) NRBC/100 WBC (test See_Comment [Automat ed message] code = 6750408693) The syste m which generated this result transmitted ref erence range: 0.0 - 10 .0 /100 WBCs. The refer ence range was not u sed to interpret this result as normal/abnor mal. NRBC x10^3 (test See_Comment [Automated message] code = 0671707163) The syste m which generated this result transmitted ref erence range: 10*3/?L. The reference range was not used to interpr et this result as normal/abnormal . GRAN MAT (NEUT) % 62.1 % (test code = 770-8) IMM GRAN % (test 0.50 % code = 2332878759) LYMPH % (test code 29.1 % = 736-9) MONO % (test code 7.3 % = 5905-5) EOS % (test code = 0.6 % 713-8) BASO % (test code 0.4 % = 706-2) GRAN MAT 5.30 10*3/uL 1.88-7.09 x10^3(ANC) (test code = 6575972621) IMM GRAN x10^3 0.04 10*3/uL 0.00-0.06 (test code = 5835014158) LYMPH x10^3 (test 2.48 10*3/uL 1.32-3.29 code = 731-0) MONO x10^3 (test 0.62 10*3/uL 0.33-0.92 code = 742-7) EOS x10^3 (test 0.05 10*3/uL 0.03-0.39 code = 711-2) BASO x10^3 (test 0.03 10*3/uL 0.01-0.07 code = 704-7) [facility]"
[2022-09-18] MEDS ORDERED: MORPHINE 4 MG/ML SYR ONE ×2 (01:49→04:28)
[2022-09-18] MEDS ORDERED: ONDANSETRON 4 MG/2 ML VIAL ONE (01:49)
[2022-09-18] MEDS ORDERED: NA CHLORIDE 0.9% 1,000 ML ONE (01:50)
[2022-09-18 02:39] LABS: Absolute Lymphocytes (CBC) 2.1 K/uL (0.7-4.9); Hematocrit 34.1 % (36.0-45.0); Lymphocytes % 24.2 % (15.3-44.8); MCV 90.3 fL (80-100); MPV 8.4 fL (7.6-11.3); RBC Red Blood Cell Count 3.78 M/uL (3.86-4.86)
[2022-09-18 02:44] LABS: Albumin 3.3 g/dL (3.4-5.0); Bilirubin Total 0.4 mg/dL (0.2-1.0); Potassium 3.6 mmol/L (3.5-5.1); Protein, Total 7.1 g/dL (6.4-8.2)
[2022-09-18 03:57] LABS: Urine Blood Negative (Negative); Urine Glucose 2+ (Negative); Urine Protein Negative (Negative); Urine pH 5.5 (5.0-7.0)
--- NOTE | 2022-09-18 04:32 | EDPHYS ---
Physician Documentation [facility] Name: Jazmín Perez Age: 52 yrs Sex: Female : 1970 Arrival Date: 09/17/2022 Time: 21:31 Bed Treatment Private MD: Onel Tucker HPI: 09/18 03:09 This 52 yrs old Female presents to ER via Ambulatory with complaints of jae Abdominal Pain, Nausea. 03:09 The patient presents to the emergency department with nausea, vomiting, abdominal pain, jae of the posterior aspect of right lateral abdomen, anterior aspect of right lateral abdomen and right lower quadrant. Onset: The symptoms/episode began/occurred 2 day(s) ago. Possible causes: unknown. The symptoms are aggravated by. Associated signs and symptoms: The patient has no apparent associated signs or symptoms. Severity of symptoms: At their worst the symptoms were. The patient has not experienced similar symptoms in the past. Historical: - Allergies: 09/17 21:43 Codeine; kl - Home Meds: 21:43 ozempic [Active]; kl - PMHx: 21:43 allergies; Diabetes - NIDDM; kl - Immunization history:: Adult Immunizations up to date. - Social history:: Smoking status: Patient denies any tobacco usage or history of. ROS: 09/18 03:10 Constitutional: Negative for fever, chills, and weight loss, Eyes: Negative for injury, jae pain, redness, and discharge, ENT: Negative for injury, pain, and discharge, Neck: Negative for injury, pain, and swelling, Cardiovascular: Negative for chest pain, palpitations, and edema, Respiratory: Negative for shortness of breath, cough, wheezing, and pleuritic chest pain, Back: Negative for injury and pain, : Negative for injury, bleeding, discharge, and swelling, MS/Extremity: Negative for injury and deformity, Skin: Negative for injury, rash, and discoloration, Neuro: Negative for headache, weakness, numbness, tingling, and seizure, Psych: Negative for depression, anxiety, suicide ideation, homicidal ideation, and hallucinations, Allergy/Immunology: Negative for hives, rash, and allergies, Endocrine: Negative for neck swelling, polydipsia, polyuria, polyphagia, and marked weight changes, Hematologic/Lymphatic: Negative for swollen nodes, abnormal bleeding, and unusual bruising. Abdomen/GI: Positive for abdominal pain, nausea and vomiting, of the right lower quadrant. Exam: 03:10 Constitutional: This is a well developed, well nourished patient who is awake, alert, jae and in no acute distress. Head/Face: Normocephalic, atraumatic. Eyes: Pupils equal round and reactive to light, extra-ocular motions intact. Lids and lashes normal. Conjunctiva and sclera are non-icteric and not injected. Cornea within normal limits. Periorbital areas with no swelling, redness, or edema. ENT: Nares patent. No nasal discharge, no septal abnormalities noted. Tympanic membranes are normal and external auditory canals are clear. Oropharynx with no redness, swelling, or masses, exudates, or evidence of obstruction, uvula midline. Mucous membranes moist. Neck: Trachea midline, no thyromegaly or masses palpated, and no cervical lymphadenopathy. Supple, full range of motion without nuchal rigidity, or vertebral point tenderness. No Meningismus. Chest/axilla: Normal chest wall appearance and motion. Nontender with no deformity. No lesions are appreciated. Cardiovascular: Regular rate and rhythm with a normal S1 and S2. No gallops, murmurs, or rubs. Normal PMI, no JVD. No pulse deficits. Respiratory: Lungs have equal breath sounds bilaterally, clear to auscultation and percussion. No rales, rhonchi or wheezes noted. No increased work of breathing, no retractions or nasal flaring. Back: No spinal tenderness. No costovertebral tenderness. Full range of motion. Female : Normal external genitalia. Skin: Warm, dry with normal turgor. Normal color with no rashes, no lesions, and no evidence of cellulitis. MS/ Extremity: Pulses equal, no cyanosis. Neurovascular intact. Full, normal range of motion. Neuro: Awake and alert, GCS 15, oriented to person, place, time, and situation. Cranial nerves II-XII grossly intact. Motor strength 5/5 in all extremities. Sensory grossly intact. Cerebellar exam normal. Normal gait. Psych: Awake, alert, with orientation to person, place and time. Behavior, mood, and affect are within normal limits. 03:10 Abdomen/GI: Inspection: distension, that is mild, obese Bowel sounds: normal, in all quadrants, active, all quadrants, high pitched, all quadrants. Palpation: mild abdominal tenderness, in the right lower quadrant, Liver: no appreciated palpable abnormalities, Hernia: not appreciated. Vital Signs: 09/17 21:40 BP 126 / 69; Pulse 96; Resp 18; Temp 98(O); Pulse Ox 98% ; Weight 106.14 kg (R); Height kl 5 ft. 2 in. (157.48 cm); Pain 10/10; 09/18 03:56 BP 132 / 88; Pulse 79; Resp 16; kl 04:49 BP 128 / 75; Pulse 68; Resp 18; kl 09/17 21:40 Body Mass Index 42.80 (106.14 kg, 157.48 cm) MDM: 09/17 21:49 Patient medically screened. [facility] 09/18 03:12 Differential diagnosis: Nonspecific abd pain. Data reviewed: vital signs, nurses notes, [facility] lab test result(s), radiologic studies, CT scan. Consideration of Admission/Observation Patient was admitted/placed on observation. Escalation of care including admission/observation considered. Test considered but Not performed: MRI: MRI ABD PELVIS. Care significantly affected by the following chronic conditions: Diabetes. 09/18 01:41 Order name: CBC with Diff [facility] 09/18 01:41 Order name: CMP [facility] 09/18 01:41 Order name: Lipase [facility] 09/18 01:41 Order name: Urine Microscopic Only [facility] 09/18 01:41 Order name: CT Abd/Pelvis - IV Contrast Only [facility] 09/18 02:44 Order name: CBC with Automated Diff; Complete Time: 03:09 [facility] 09/18 02:45 Order name: Comprehensive Metabolic Panel; Complete Time: 03:09 [facility] 09/18 02:45 Order name: Lipase; Complete Time: 03:09 [facility] 09/18 03:57 Order name: Urine Dipstick-Ancillary; Complete Time: 04:29 [facility] 09/18 01:41 Order name: IV Saline Lock [facility] 09/18 01:41 Order name: Labs collected and sent [facility] 09/18 03:09 Order name: Urine Dipstick-Ancillary (obtain specimen) [facility] Administered Medications: 02:15 Drug: NS 0.9% 1000 ml Route: IV; Rate: 1 bolus; Site: right forearm; 02:15 Drug: Zofran (Ondansetron) 4 mg Route: IVP; Site: right forearm; kl 02:15 Drug: morphine 4 mg Route: IVP; Infused Over: 4 mins; Site: right forearm; kl 04:30 Drug: morphine 4 mg Route: IVP; Infused Over: 4 mins; Site: right forearm; kl 04:48 Follow up: Response: No adverse reaction; Marked relief of symptoms kl 04:31 Drug: ProTONIX (pantoprazole) 40 mg Route: IVP; Site: right forearm; kl 04:48 Follow up: Response: No adverse reaction kl 04:35 Drug: Ketorolac 30 mg Route: IVP; Site: right forearm; kl 04:48 Follow up: Response: No adverse reaction kl Disposition Summary: 09/18/22 04:31 Discharge Ordered Location: Home jae Problem: new jae Symptoms: have improved jae Condition: Stable jae Diagnosis - Right lower quadrant abdominal tenderness jae - Acute gastritis without bleeding jae Followup: jae - With: Private Physician - When: 2 - 3 days - Reason: Recheck today's complaints, Continuance of care, Re-evaluation by your physician Discharge Instructions: - Discharge Summary Sheet jae - Abdominal Pain, Adult jae - Abdominal Pain, Adult, [id number] jae - Gastritis, Adult jae Forms: - Medication Reconciliation Form [facility] - Thank You Letter jae - Antibiotic Education jae - Prescription Opioid Use [facility] Prescriptions: - Zofran 4 mg Oral Tablet - take 1 tablet by ORAL route every 12 hours As needed; 20 tablet; Refills: 0, jae Product Selection Permitted - Protonix 40 mg Oral Tablet - take 1 tablet by ORAL route once daily; 30 tablet; Refills: 0, Product [facility] Selection Permitted - dicyclomine 20 mg Oral Tablet - take 1 tablet by ORAL route 4 times per day; 28 tablet; Refills: 0, Product [facility] Selection Permitted Signatures: Dispatcher [employer] Nicky Larson RN RN kl Anderson, Corey, MD MD cha Page, Corey, PA PA cp Corrections: (The following items were deleted from the chart) 00:33 00:32 IV Saline Lock ordered. cp cp 00:33 00:32 Labs collected and sent ordered. cp cp 00:33 00:32 Urine Dipstick-Ancillary ordered. cp cp
--- NOTE | 2022-09-18 04:32 | ER ---
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 Coronavirus screen: Vaccine status: Patient reports receiving the 2nd dose of the covid vaccine. Ebola Screen: Patient negative for fever greater than or equal to 101.5 degrees Fahrenheit, and additional compatible Ebola Virus Disease symptoms. Initial Sepsis Screen: Does the patient meet any 2 criteria? No. Patient's initial sepsis screen is negative. Does the patient have a suspected source of infection? No. Patient's initial sepsis screen is negative. Risk Assessment: Do you want to hurt yourself or someone else? Patient reports no desire to harm self or others. 21:40 Method Of Arrival: Ambulatory 21:40 Acuity: LOU 3 kl Triage Assessment: 21:44 General: Appears distressed, uncomfortable. General: Behavior is anxious. Pain: kl Complains of pain in right lower quadrant Pain currently is 10 out of 10 on a pain scale. GI: Reports intolerance of fluids, intolerance of food, nausea, vomiting. Historical: - Allergies: 21:43 Codeine; kl - Home Meds: 21:43 ozempic [Active]; kl - PMHx: 21:43 allergies; Diabetes - NIDDM; kl - Immunization history:: Adult Immunizations up to date. - Social history:: Smoking status: Patient denies any tobacco usage or history of. Screenin/15 02:14 [facility] ED Fall Risk Assessment (Adult) History of falling in the last 3 months, kl including since admission No falls in past 3 months (0 pts) Confusion or Disorientation No (0 pts) Intoxicated or Sedated No (0 pts) Impaired Gait No (0 pts) Mobility Assist Device Used No (0 pt) Altered Elimination No (0 pt) Score/Fall Risk Level 0 - 2 = Low Risk Oriented to surroundings, Maintained a safe environment. Abuse screen: Denies threats or abuse. Nutritional screening: No deficits noted. Tuberculosis screening: No symptoms or risk factors identified. Assessment: 02:14 General: Appears uncomfortable, Behavior is calm, cooperative. Pain: Complains of pain kl in abdomen and right lower quadrant Pain currently is 10 out of 10 on a pain scale. Quality of pain is described as aching, crampy. Cardiovascular: No deficits noted. Respiratory: No deficits noted. GI: Bowel sounds present X 4 quads. Abd is soft Abdomen is tender to palpation X 4 quads. 02:49 Reassessment: Patient appears in no apparent distress at this time. Patient and/or kl family updated on plan of care and expected duration. Pain level reassessed. Patient is alert, oriented x 3, equal unlabored respirations, skin warm/dry/pink. Patient states symptoms have improved. 03:56 Reassessment: Patient and/or family updated on plan of care and expected duration. Pain kl level reassessed. Patient is alert, oriented x 3, equal unlabored respirations, skin warm/dry/pink. Vital Signs: 09/17 21:40 BP 126 / 69; Pulse 96; Resp 18; Temp 98(O); Pulse Ox 98% ; Weight 106.14 kg (R); Height kl 5 ft. 2 in. (157.48 cm); Pain 10/10; 09/18 03:56 BP 132 / 88; Pulse 79; Resp 16; kl 04:49 BP 128 / 75; Pulse 68; Resp 18; kl 02 21:40 Body Mass Index 42.80 (106.14 kg, 157.48 cm) ED Course: 09/17 21:31 Patient arrived in ED. ag3 21:43 Triage completed. kl 21:48 [facility] cp 21:48 Onel Rausch MD is Attending Physician. cp 09/18 01:34 Onel Rausch MD is Attending Physician. jae 02:13 No provider procedures requiring assistance completed. Inserted saline lock: 20 gauge kl in right forearm, using aseptic technique. 03:24 CBC with Diff Sent. kl 03:24 CMP Sent. kl 03:24 Lipase Sent. kl 04:49 IV discontinued, intact, bleeding controlled, No redness/swelling at site. Pressure kl dressing applied. 04:49 Patient has correct armband on for positive identification. kl Administered Medications: 02:15 Drug: NS 0.9% 1000 ml Route: IV; Rate: 1 bolus; Site: right forearm; kl 02:15 Drug: Zofran (Ondansetron) 4 mg Route: IVP; Site: right forearm; kl 02:15 Drug: morphine 4 mg Route: IVP; Infused Over: 4 mins; Site: right forearm; kl 04:30 Drug: morphine 4 mg Route: IVP; Infused Over: 4 mins; Site: right forearm; kl 04:48 Follow up: Response: No adverse reaction; Marked relief of symptoms kl 04:31 Drug: ProTONIX (pantoprazole) 40 mg Route: IVP; Site: right forearm; kl 04:48 Follow up: Response: No adverse reaction kl 04:35 Drug: Ketorolac 30 mg Route: IVP; Site: right forearm; kl 04:48 Follow up: Response: No adverse reaction kl Medication: 04:50 VIS not applicable for this client. kl Outcome: 04:31 Discharge ordered by . jae 04:49 Discharged to home ambulatory. kl 04:49 Condition: improved 04:49 Discharge instructions given to patient, Instructed on discharge instructions, follow up and referral plans. medication usage, Demonstrated understanding of instructions, follow-up care, medications, Prescriptions given X 3. 04:50 Patient left the ED. kl Signatures: Nicky Woodruff RN RN kl Anderson, Corey, MD MD cha Page, Corey, PA PA cp Gomez, Alice 3
[2022-09-18] MEDS ORDERED: KETOROLAC 30 MG/ML INJ ONE (04:46)
[2022-09-18] MEDS ORDERED: PANTOPRAZOLE 40 MG INJ ONE (04:46)
[2022-09-18 05:04] VITALS: TEMP 98; O2SAT 98
[2022-09-18 05:34] VITALS: BP 128/75
--- NOTE | 2022-09-18 15:11 | RAD REPORT ---
EXAM DESCRIPTION: CT - Abdomen Pelvis W Contrast - 09/18/2022 5:31 am CLINICAL HISTORY: ABD PAIN COMPARISON: 08/20/2022 TECHNIQUE: CT of the abdomen and pelvis performed following IV administration of iodinated contras t. This exam was performed according to our departmental dose-optimization program, which includes au tomated exposure control, adjustment of the mA and/or kV according to patient size and/or use of iter ative reconstruction technique. FINDINGS: Lung Bases: Mild bibasilar dependent atelectasis. Bones: Multilevel endplate spondylosis and facet arthropathy. Abdomen: Liver: The liver has normal size and decreased density. No intrahepatic biliary dilatation. Gallbladder: Prior cholecystectomy. Spleen, Pancreas, and Adrenal Glands: The spleen, pancreas, and adrenal glands are unremarkable. Kidneys: No hydronephrosis or obstructing calculus. Small bilateral renal cysts. No follow-up shonna ging structures recommended. Nonobstructing right nephrolithiasis. Vasculature: The aorta and IVC have normal caliber and position. The portal vein is patent. The pro ximal visceral and renal arteries are patent. Stomach: Mild wall thickening gastric antrum. Other: No free intraperitoneal air. No free fluid or lymphadenopathy. Small fat-containing ventra l hernia. Pelvis: Bladder: Urinary bladder is unremarkable. Bowel: No dilated loops of large or small bowel. Scattered diverticula of the colon. Moderate amoun t of stool. Appendix: Normal appendix. Pelvis: Uterus is not enlarged. IMPRESSION: 1. Mild wall thickening of the gastric antrum. This could be seen with gastritis. 2. Nonobstructing right nephrolithiasis. 3. Hepatic steatosis. 4. Diverticulosis without evidence of acute diverticulitis. Electronically signed by: Laureano Su 09/18/2022 3:52 AM FINE GRADER Due to temporary technical issues with the PACS/Fluency reporting system, reports are being signed by the in house radiologists without review as a courtesy to insure prompt reporting. The interpreting radiologist is fully responsible for the content of the report.
== END 2022-09-18 04:50 | disposition home or self-care (01) ==
LOC: ER 21:28
DX: K29.00 Acute gastritis without bleeding (principal); E11.9 Type 2 diabetes mellitus without complications; Z88.5 Allergy status to narcotic agent
CPT/HCPCS: 36415; 74177; 80053; 81003; 83690; 85025; C9113; J2405; J7030; Q9967

== ENCOUNTER 2022-12-12 18:07 | Observation (INO) | payer OTHER ==
--- OUTSIDE RECORDS SUMMARY | 2022-12-12 18:43 | XMS REPORT | Continuity of Care Document ---
:1970 Author Organization [facility] t Address [address] [place] [address] [place] [id number] Care Team Providers Name Role Phone AZUCENA STRAUSS Primary Care Physician Unavailable KAYLA LUTZ Attending Clinician Unavailable LACEY IVERSON Attending Clinician Unavailable Kayla Lutz MD Attending Clinician Doctor Unassigned, [place] Attending Clinician Unavailable Bernice Amaya Attending Clinician PEDRO LUIS RUSHING Attending Clinician Unavailable PEDRO LUIS RUSHING Attending Clinician Unavailable Pob, [facility] Main Attending Clinician Unavailable BERNICE COLUNGA Attending Clinician Unavailable Chelo Cornejo RN Attending Clinician Unavailable ANNAMARIA BARKER Attending Clinician Unavailable Brodie Clemons MD Attending Clinician Annamaria Barker DO Attending Clinician FILIPE WIGGINS Attending Clinician Unavailable CLAYTON GARRIDO Attending Clinician Unavailable Bharath Padgett CRNA Attending Clinician Trang Hunt MD Attending Clinician Only, Adc Test Attending Clinician Unavailable RENÉE AGUILERA Attending Clinician Unavailable RENÉE AGUILERA Attending Clinician Unavailable ANDREW RESENDIZ Attending Clinician Unavailable Nurse, Adc Pob Immunization Attending Clinician Unavailable Andrew Resendiz DO Attending Clinician Timbo Hayward MD, Jonas Attending Clinician Calin Lazar DO Attending Clinician KAYLA LUTZ Admitting Clinician Unavailable Kayla Lutz MD Admitting Clinician ANNAMARIA BARKER Admitting Clinician Unavailable Annamaria Barker DO Admitting Clinician BERNICE COLUNGA Admitting Clinician Unavailable Payers Payer Name Policy Type Policy Number Effective Date Expiration Date Lucrecia clement [facility] [id number] 2021 PLUS 00:00:00 [facility] [id number] 2015 HEALTH CHOICE 00:00:00 AMBETTER [id number] 2020 [facility] 00:00:00 PLAN [facility] [id number] 2022 DUAL COMP HMO D 00:00:00 SNP Ambetter from [id number] [facility] Spi [facility] HIM AMBETTER [id number] 2019 FROM [place] 00:00:00 HEALTH Ambetter from [id number] Common Spi [facility] Ambetter from [id number] Common [facility] Ambetter from [id number] Common [facility] Problems Condition Condition Condition Status Onset Resolution [...] f hip hip 00:00: g of this [place] 00 note Medical might be Branch different from the original. Added automatic ally from request for surgery [id number] Hip pain, Hip pain, Disease Active [facility] left left -17 Health 00:00: 00 Left knee Left knee Disease Active [facility] pain pain -17 Health 00:00: 00 Arthritis Arthritis Disease Active Last UT of right of right -17 Assessmen Angela lth hip hip 00:00: t [...] Disease Active [facility] of left of left -17 Health hip hip 00:00: 00 Arthritis Arthritis Disease Active [facility] of left of left -17 Health knee knee 00:00: 00 Trochanter Trochanter Disease Active U T ic ic 17 Health bursitis, bursitis, 00:00: left hip left hip 00 ESR raised ESR raised Disease Active U nivers 8-28 ity of 00:00: [place] 00 Medical Branch 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 Uni vers (current) (current) 8-28 ity of use of use of 00:00: [place] non-steroi non-steroi 00 Me dical jaiden jaiden Branch anti-infla anti-infla mmatories mmatories (nsaid) (nsaid) Other iron Other iron Disease Active U nivers deficiency deficiency 8-28 it y of anemia anemia 00:00: [place] [facility] Subcutaneo Subcutaneo Disease Active U nivers us nodules us nodules 8 it y of 00:: [place] [facility] Bilateral Bilateral Disease Active Uni vers knee pain knee pain 3- ity of 00:00: [place] [address] Medical Branch Bilateral Bilateral Disease Active Uni vers knee pain knee pain 3- ity of 00:00: [place] [address] Medical Branch [id number] Pain, Problem Active Commo n [id number] joint, Spirit hand, left - [facility] [id number] Primary [place] [id number] osteoarthr Spirit itis of - [facility] left hip [facility] [id number] Trigger Problem Active Commo n finger, Spirit right ring - [facility] finger [facility] [id number] Pain, Problem Active Commo n [id number] joint, Spirit hand, - [facility] right [facility] Allergies, Adverse Reactions, Alerts Allergy Allergy Status Severity Reaction(s) Onset Inactive Treating Comm ents Source Name Type Date Date Clinician CODEINE DRUG Active N/V Univers INGREDI 2-04 ity of 00:00: [place] [address] Medical Branch Codeine Propensi Active Nausea And UT ty to Vomiting -04 Health adverse 00:00: reaction 00 s Social History Social Habit Start Date Stop Date Quantity Comments Source History [facility] Alcohol Binge History of [facility] - Tobacco Use [facility] Sex Assigned At [facility] mingo - [facility] History [facility] Alcohol Std Drinks Exposure to 2022-09-09 2022-09-19 Not sure University of SARS-CoV-2 00:00:00 10:00:00 [place] Medical (event) Branch History SDOH Food 2022-06-13 2022-06-13 1 Univers ity of Worry 00:00:00 00:00:00 [place] [facility] History SDOH Food 2022-06-13 2022-06-13 1 Univers ity of Scarcity 00:00:00 00:00:00 [place] [facility] History SDOH 2022-06-13 2022-06-13 2 University o f Transport Med 00:00:00 00:00:00 [place] Medic al Branch History SDOH 2022-06-13 2022-06-13 2 University o f Transport Non-Med 00:00:00 00:00:00 [facility] [place] [facility] Tobacco use and 2022-06-11 2022-06-11 Smokeless tobacco Un iversity of exposure 00:00:00 00:00:00 non-user [facility] Education 2022-06-10 2022-06-10 21 [facility] 00:00:00 00:00:00 [facility] Alcohol intake 2020-12-18 2020-12-18 [facility] 00:00:00 00:00:00 non-drinker (finding) History SDOH 2020-12-18 2020-12-18 1 [facility] Alcohol Frequency 00:00:00 00:00:00 Smoking Status Start Date Stop Date Source Never smoked tobacco [facility] Never Smoker [facility] Medications Ordered Filled Start Stop Current Ordering Indication Dosage Frequency Signature Comments Components Source Medication Medication Date Date Medication? Clinician (SIG) Name Name FENTanyl Yes 25ug 25 mcg, Uni vers (SUBLIMAZE 2-20 Slow IV ity of (PF)) 14:14: Push, [place] injection 37 Q5MIN PRN, Medi danielle 25 mcg 4 doses, Branch Starting on Fri09/23/22 at 0814, Until Discontinu ed, Routine, Pain (scale 4-6), PACU ondansetron 2022- No 4mg 4 mg, Slow Univers (ZOFRAN 2- 02-20 IV Push, ity of (PF)) 14:14: 14:16 PRN, 1 [place] injection 4 37 :00 dose, Medical mg Starting Branch on Fri09/23/22 at 0814, Until Fri09/23/22 at 0816, Routine, Nausea and Vomiting (N/V), PACU FENTanyl PF 2022- No 25ug 25 mcg, Un james (SUBLIMAZE 2-20 02-20 Slow IV ity o f (PF)) 14:14: 17:13 Push, [place] injection 37 :49 Q5MIN PRN, Medi danielle 25 mcg 4 doses, Branch Starting on Fri09/23/22 at 0814, Until Fri09/23/22 at 1113, Routine, Pain (scale 4-6), PACU ondansetron 2023-0 2023- No 4mg 4 mg, Slow Univers (ZOFRAN 09-23 IV Push, ity of (PF)) 14:14: 14:16 PRN, 1 [place] injection 4 37 :00 dose, Medical mg Starting Branch on Fri09/23/22 at 0814, Until Fri09/23/22 at 0816, Routine, Nausea and Vomiting (N/V), PACU triamcinolo 2022- No PRN, Unive rs ne 09-23 Starting ity of acetonide 13:55: 17:13 on [facility] (KENALOG) 00 :49 09/23/22 at [facility] injection 0755, Branch Until Fri09/23/22 at 1113, Routine, Intra-op bupivacaine 2022- No PRN, Unive rs (preserv 09-23 Starting ity of free) 0.5% 13:55: 17:13 [place] ([place]ENS[place]IN 00 :49 09/23/22 at [facility]) 0.5 0755, Branch % (5 mg/mL) Until Fri injection 09/23/22 at 1113, Routine, Intra-op triamcinolo 2022- No PRN, Unive rs ne 09-23 Starting ity of acetonide 13:53: 17:13 on Fri [place] (KENALOG) 00 :49 09/23/22 at [facility] danielle injection 0753, Branch Until Fri09/23/22 at 1113, Routine, Intra-op bupivacaine 2022- No PRN, Unive rs (preserv 09-23 Starting ity of free) 0.5% 13:53: 17:13 on [facility] [place] (SENSORCAIN 00 :49 [facility] 0.5 0753, Branch % (5 mg/mL) Until Fri injection 09/23/22 at 1113, Routine, Intra-op lactated 2022- No 1000mL at 42 Unive rs ringers IV 09-23- mL/hr, ity of infusion 12:45: 13:02 1,000 mL, [place] 1,000 mL 00 :00 IV Medical Infusion, Branch ONCE, 1 dose, On Fri09/23/22 at 0645, Routine, DSU Pre-op lactated 2023-0 2023- No 1000mL at 42 Unive rs ringers IV 2-20 02-20 mL/hr, ity of infusion 12:45: 13:02 1,000 mL, [place] 1,000 mL 00 :00 IV Medical Infusion, Branch ONCE, 1 dose, On Fri09/23/22 at 0645, Routine, DSU Pre-op amitriptyli 2022-0 Yes amitriptyl Univers ne 150 mg 2-20 ine 150 mg ity of tablet 09:08: tablet [place] [address] Take 1 Medical tablet Branch every day by oral route for 30 days. Fesoterodin 2022-0 Yes Toviaz 4 Un james e (TOVIAZ) 2-20 mg ity of 4 mg tablet 09:08: tablet,ext [place] 45 ended Medical release Branch dapaglifloz 2022-0 Yes Xigduo XR U nivers in-metformi 2-20 10 mg-500 ity of n (XIGDUO 09:08: mg [place] XR) 10-500 45 tablet,ext Med ical mg TBph ended Branch release Take 1 tablet every day by oral route for 30 days. cyclobenzap 0 Yes 10mg Take 10 mg Univers rine 10 mg 2-20 by mouth 2 ity of tablet 09:08: (two) [place] [address] times Medical daily. Branch DULoxetine 0 Yes 60mg Take 60 mg U nivers 60 mg 2-20 by mouth ity of capsule 09:08: daily. [place] [address] Medical Branch atorvastati 2022-0 Yes 10mg Take 10 mg Univers n 10 mg 2-20 by mouth ity of tablet 09:08: in the [place] [address] morning. Medical Branch celecoxib 2022-0 Yes 200mg Take 200 Uni vers 200 mg 2-20 mg by ity of capsule 09:08: mouth in [place] [address] the Medical morning Branch and 200 mg in the evening. semaglutide 2022-0 Yes 1.25mg inject Un james (OZEMPIC) 1 2-20 1.25 mg ity o f mg/dose (4 09:08: under the [place] mg/3 mL) 45 skin Medical PnIj weekly. Branch amitriptyli 2022-0 Yes amitriptyl Univers ne 150 mg 2-20 ine 150 mg ity of tablet 09:08: tablet [place] 45 Take 1 Medical tablet Branch every day by oral route for 30 days. Fesoterodin 3-0 Yes Toviaz 4 Un james e (TOVIAZ) 2-20 mg ity of 4 mg tablet 09:08: tablet,ext [place] 45 ended Medical release Branch dapaglifloz 2022-0 Yes Xigduo XR U nivers in-metformi 2-20 10 mg-500 ity of n (XIGDUO 09:08: mg [place] XR) 10-500 45 tablet,ext Med ical mg TBph ended Branch release Take 1 tablet every day by oral route for 30 days. cyclobenzap 2022-0 Yes 10mg Take 10 mg Univers rine 10 mg 2-20 by mouth 2 ity of tablet 09:08: (two) [place] [address] times Medical daily. Branch DULoxetine 2022-0 Yes 60mg Take 60 mg U nivers 60 mg 2-20 by mouth ity of capsule 09:08: daily. [place] [address] Medical Branch atorvastati 2022-0 Yes 10mg Take 10 mg Univers n 10 mg 2-20 by mouth ity of tablet 09:08: in the [place] [address] morning. Medical Branch celecoxib 2022-0 Yes 200mg Take 200 Uni vers 200 mg 2-20 mg by ity of capsule 09:08: mouth in [place] [address] the Medical morning Branch and 200 mg in the evening. semaglutide 2022-0 Yes 1.25mg inject Un james (OZEMPIC) 1 2-20 1.25 mg ity o f mg/dose (4 09:08: under the [place] mg/3 mL) 45 skin Medical PnIj weekly. Branch amitriptyli 2022-0 Yes amitriptyl Univers ne 150 mg 2-20 ine 150 mg ity of tablet 09:08: tablet [place] [address] Take 1 Medical tablet Branch every day by oral route for 30 days. Fesoterodin 3-0 Yes Toviaz 4 Un james e (TOVIAZ) 2-20 mg ity of 4 mg tablet 09:08: tablet,ext [place] 45 ended Medical release Branch dapaglifloz 2022-0 Yes Xigduo XR U nivers in-metformi 2-20 10 mg-500 ity of n (XIGDUO 09:08: mg [place] XR) 10-500 45 tablet,ext Med ical mg TBph ended Branch release Take 1 tablet every day by oral route for 30 days. cyclobenzap 2022-0 Yes 10mg Take 10 mg Univers rine 10 mg 2-20 by mouth 2 ity of tablet 09:08: (two) [place] [address] times Medical daily. Branch DULoxetine 2022-0 Yes 60mg Take 60 mg U nivers 60 mg 2-20 by mouth ity of capsule 09:08: daily. [place] [address] Medical Branch atorvastati 2022-0 Yes 10mg Take 10 mg Univers n 10 mg 2-20 by mouth ity of tablet 09:08: in the [place] [address] morning. Medical Branch celecoxib 2022-0 Yes 200mg Take 200 Uni vers 200 mg 2-20 mg by ity of capsule 09:08: mouth in [place] [address] the Medical morning Branch and 200 mg in the evening. semaglutide 2022-0 Yes 1.25mg inject Un james (OZEMPIC) 1 2-20 1.25 mg ity o f mg/dose (4 09:08: under the [place] mg/3 mL) 45 skin Medical PnIj weekly. Branch aspirin 325 2023-0 2023- Yes [id number] 325mg Take 1 Univers mg tablet 2-20 03-21 tablet by ity of 00:00: 04:59 mouth in [place] 00 :00 the Medical morning Branch and 1 tablet in the evening. Take with meals. Do all this for 28 days. aspirin 325 2023-0 2023- Yes [id number] 325mg Take 1 Univers mg tablet 2-20 03-21 tablet by ity of 00:00: 04:59 mouth in [place] 00 :00 the Medical morning Branch and 1 tablet in the evening. Take with meals. Do all this for 28 days. aspirin 325 2023-0 2023- Yes [id number] 325mg Take 1 Univers mg tablet 2-20 03-21 tablet by ity of 00:00: 04:59 mouth in [place] 00 :00 the Medical morning Branch and 1 tablet in the evening. Take with meals. Do all this for 28 days. semaglutide 2022-0 Yes 1.25mg inject Un james (OZEMPIC) 1 2-14 1.25 mg ity o f mg/dose (4 13:39: under the [place] mg/3 mL) 54 skin Medical PnIj weekly. Branch semaglutide 2023-0 Yes 1.25mg inject Un james (OZEMPIC) 1 2-14 1.25 mg ity o f mg/dose (4 13:39: under the [place] mg/3 mL) 54 skin Medical PnIj weekly. Branch semaglutide 2023-0 Yes 1.25mg inject Un james (OZEMPIC) 1 2-14 1.25 mg ity o f mg/dose (4 13:39: under the [place] mg/3 mL) 54 skin Medical PnIj weekly. Branch semaglutide 2023-0 Yes 1.25mg inject Un james (OZEMPIC) 1 2-14 1.25 mg ity o f mg/dose (4 13:39: under the [place] mg/3 mL) 54 skin Medical PnIj weekly. Branch semaglutide 2023-0 Yes 1.25mg inject Un james (OZEMPIC) 1 2-14 1.25 mg ity o f mg/dose (4 13:39: under the [place] mg/3 mL) 54 skin Medical PnIj weekly. Branch atorvastati 2023-0 Yes 10mg Take 10 mg Univers n 10 mg 2-14 by mouth ity of tablet 13:19: in the [place] [address] morning. Medical Branch celecoxib 2023-0 Yes 200mg Take 200 Uni vers 200 mg 2-14 mg by ity of capsule 13:19: mouth in [place] [address] the Medical morning Branch and 200 mg in the evening. atorvastati 2023-0 Yes 10mg Take 10 mg Univers n 10 mg 2-14 by mouth ity of tablet 13:19: in the [place] [address] morning. Medical Branch celecoxib 2023-0 Yes 200mg Take 200 Uni vers 200 mg 2-14 mg by ity of capsule 13:19: mouth in [place] 59 the Medical morning Branch and 200 mg in the evening. atorvastati 2023-0 Yes 10mg Take 10 mg Univers n 10 mg 2-14 by mouth ity of tablet 13:19: in the [place] [address] morning. Medical Branch celecoxib 2023-0 Yes 200mg Take 200 Uni vers 200 mg 2-14 mg by ity of capsule 13:19: mouth in [place] [address] the Medical morning Branch and 200 mg in the evening. atorvastati 2023-0 Yes 10mg Take 10 mg Univers n 10 mg 2-14 by mouth ity of tablet 13:19: in the [place] [address] morning. Medical Branch celecoxib 3-0 Yes 200mg Take 200 Uni vers 200 mg 2-14 mg by ity of capsule 13:19: mouth in [place] [address] the Medical morning Branch and 200 mg in the evening. atorvastati 3-0 Yes 10mg Take 10 mg Univers n 10 mg 2-14 by mouth ity of tablet 13:19: in the [place] 59 morning. Medical Branch celecoxib 3-0 Yes 200mg Take 200 Uni vers 200 mg 2-14 mg by ity of capsule 13:19: mouth in [place] 59 the Medical morning Branch and 200 mg in the evening. amitriptyli 2022-0 Yes amitriptyl Univers ne 150 mg 2-14 ine 150 mg ity of tablet 13:09: tablet [place] [address] Take 1 Medical tablet Branch every day by oral route for 30 days. Fesoterodin 2022-0 Yes Toviaz 4 Un james e (TOVIAZ) 2-14 mg ity of 4 mg tablet 13:09: tablet,ext [place] [address] ended Medical release Branch dapaglifloz 2022-0 Yes Xigduo XR U nivers in-metformi 2-14 10 mg-500 ity of n (XIGDUO 13:09: mg [place] XR) 10-500 tablet,ext Med ical mg TBph ended Branch release Take 1 tablet every day by oral route for 30 days. cyclobenzap 2022-0 Yes 10mg Take 10 mg Univers rine 10 mg 2-14 by mouth 2 ity of tablet 13:09: (two) [place] [address] times Medical daily. Branch DULoxetine 2022-0 Yes 60mg Take 60 mg U nivers 60 mg 2-14 by mouth ity of capsule 13:09: daily. [place] [address] Medical Branch amitriptyli 2022-0 Yes amitriptyl Univers ne 150 mg 2-14 ine 150 mg ity of tablet 13:09: tablet [place] [address] Take 1 Medical tablet Branch every day by oral route for 30 days. Fesoterodin 3-0 Yes Toviaz 4 Un james e (TOVIAZ) 2-14 mg ity of 4 mg tablet 13:09: tablet,ext [place] [address] ended Medical release Branch dapaglifloz 2022-0 Yes Xigduo XR U nivers in-metformi 2-14 10 mg-500 ity of n (XIGDUO 13:09: mg [place] XR) 10-500 47 tablet,ext Med ical mg TBph ended Branch release Take 1 tablet every day by oral route for 30 days. cyclobenzap 2022-0 Yes 10mg Take 10 mg Univers rine 10 mg 2-14 by mouth 2 ity of tablet 13:09: (two) [place] [address] times Medical daily. Branch DULoxetine 2022-0 Yes 60mg Take 60 mg U nivers 60 mg 2-14 by mouth ity of capsule 13:09: daily. [place] [address] Medical Branch amitriptyli 2022-0 Yes amitriptyl Univers ne 150 mg 2-14 ine 150 mg ity of tablet 13:09: tablet [place] [address] Take 1 Medical tablet Branch every day by oral route for 30 days. Fesoterodin 2022-0 Yes Toviaz 4 Un james e (TOVIAZ) 2-14 mg ity of 4 mg tablet 13:09: tablet,ext [place] [address] ended Medical release Branch dapaglifloz 2022-0 Yes Xigduo XR U nivers in-metformi 2-14 10 mg-500 ity of n (XIGDUO 13:09: mg [place] XR) 10-500 47 tablet,ext Med ical mg TBph ended Branch release Take 1 tablet every day by oral route for 30 days. cyclobenzap 0 Yes 10mg Take 10 mg Univers rine 10 mg 2-14 by mouth 2 ity of tablet 13:09: (two) [place] [address] times Medical daily. Branch DULoxetine 2022-0 Yes 60mg Take 60 mg U nivers 60 mg 2-14 by mouth ity of capsule 13:09: daily. [place] [address] Medical Branch amitriptyli 2022-0 Yes amitriptyl Univers ne 150 mg 2-14 ine 150 mg ity of tablet 13:09: tablet [place] [address] Take 1 Medical tablet Branch every day by oral route for 30 days. Fesoterodin 2022-0 Yes Toviaz 4 Un james e (TOVIAZ) 2-14 mg ity of 4 mg tablet 13:09: tablet,ext [place] [address] ended Medical release Branch dapaglifloz 2022-0 Yes Xigduo XR U nivers in-metformi 2-14 10 mg-500 ity of n (XIGDUO 13:09: mg [place] XR) 10-500 47 tablet,ext Med ical mg TBph ended Branch release Take 1 tablet every day by oral route for 30 days. cyclobenzap 0 Yes 10mg Take 10 mg Univers rine 10 mg 2-14 by mouth 2 ity of tablet 13:09: (two) [place] [address] times Medical daily. Branch DULoxetine 0 Yes 60mg Take 60 mg U nivers 60 mg 2-14 by mouth ity of capsule 13:09: daily. [place] [address] Medical Branch amitriptyli 0 Yes amitriptyl Univers ne 150 mg 2-14 ine 150 mg ity of tablet 13:09: tablet [place] [address] Take 1 Medical tablet Branch every day by oral route for 30 days. Fesoterodin 0 Yes Toviaz 4 Un james e (TOVIAZ) 2-14 mg ity of 4 mg tablet 13:09: tablet,ext [place] [address] ended Medical release Branch dapaglifloz 0 Yes Xigduo XR U nivers in-metformi 2-14 10 mg-500 ity of n (XIGDUO 13:09: mg [place] XR) 10-500 47 tablet,ext Med ical mg TBph ended Branch release Take 1 tablet every day by oral route for 30 days. cyclobenzap 0 Yes 10mg Take 10 mg Univers rine 10 mg 2-14 by mouth 2 ity of tablet 13:09: (two) [place] [address] times Medical daily. Branch DULoxetine 0 Yes 60mg Take 60 mg U nivers 60 mg 2-14 by mouth ity of capsule 13:09: daily. [place] [address] Medical Branch cefTRIAXone 2021-08 202- No 1000mg 1,000 mg, Univers (ROCEPHIN) 1-10 11-12 IV ity of 1,000 mg in 18:00: 17:59 Piggyback, [place] NaCl 0.9% 00 :00 Q24H ABX, Medic al (NS) 50 mL 2 doses, Branc h MINI-BAG First dose (after last modificati on) on Sneha 06/13/22 at 1200, Last dose on Fri06/14/22 at 1200, Administer over 30 Minutes, 50 mL
Reas on for Anti-Infec tive: Documented Infection< br>Henry cervantes Infection Site: Urine
D uration of Therapy: 7 days lactobacill 2021-08- No [id number] .5mg Take 1 Univers us 08-13-11 tablet by ity of acidophilus 00:00: 05:59 mouth in [place] 00 :00 the Medical morning Branch for 30 days. polyethylen 2021-08- No [id number] 17g Take 1 Univers e glycol 08-13-11 Packet by ity o f 3350 17 00:00: 05:59 mouth in [place] gram powder 00 :00 the Medical morning Branch for 30 days. lactobacill 2021-08- No [id number] .5mg Take 1 Univers us 08-13-11 tablet by ity of acidophilus 00:00: 05:59 mouth in [place] 00 :00 the Medical morning Branch for 30 days. polyethylen 2021-08- No [id number] 17g Take 1 Univers e glycol 08-13-11 Packet by ity o f 3350 17 00:00: 05:59 mouth in [place] gram powder 00 :00 the Medical morning Branch for 30 days. sennosides- 2021-08 Yes 1{tbl} 1 tablet, Univers docusate 09 Oral, ity of sodium 16:15: DAILY, [place] (SENOKOT-S) 00 First dose Me dical 8.6-50 [...] 150 mg ity of tablet 16:08: tablet [place] 30 Take 1 Medical tablet Branch every [...] 2021-08 Yes Xigduo XR U nivers in-metformi - 10 mg-500 ity of n (XIGDUO 16:08: [...] capsule 16:08: daily. [place] 30 Medical Branch proMETHazin 2021-08 Yes [id number] 25mg Take 1 Univers e 25 mg 1-09 tablet by ity of tablet 00:00: mouth [place] 00 every 4 Medical (four) Branch hours as needed for N/V unresponsi ve to Ondansetro n. proMETHazin 2021-08 Yes [id number] 25mg Take 1 Univers e 25 mg 1-09 tablet by ity of tablet 00:00: mouth [place] 00 every 4 Medical (four) Branch hours as needed for N/V unresponsi ve to Ondansetro n. proMETHazin 2021-08 Yes [id number] 25mg Take 1 Univers e 25 mg 1-09 tablet by ity of tablet 00:00: mouth [place] 00 every 4 Medical (four) Branch hours as needed for N/V unresponsi ve to Ondansetro n. proMETHazin 2021-08 Yes [id number] 25mg Take 1 Univers e 25 mg 1-09 tablet by ity of tablet 00:00: mouth [place] 00 every 4 Medical (four) Branch hours as needed for N/V unresponsi ve to Ondansetro n. proMETHazin 2021-08 Yes [id number] 25mg Take 1 Univers e 25 mg 1-09 tablet by ity of tablet 00:00: mouth [place] 00 every 4 Medical (four) Branch hours as needed for N/V unresponsi ve to Ondansetro n. proMETHazin 2021-08 Yes [id number] 25mg Take 1 Univers e 25 mg 1-09 tablet by ity of tablet 00:00: mouth [place] 00 every 4 Medical (four) Branch hours as needed for N/V unresponsi ve to Ondansetro n. proMETHazin 2021-08 Yes [id number] 25mg Take 1 Univers e 25 mg 1-09 tablet by ity of tablet 00:00: mouth [place] 00 every 4 Medical (four) Branch hours as needed for N/V unresponsi ve to Ondansetro n. proMETHazin 2021-08 Yes [id number] 25mg Take 1 Univers e 25 mg 09 tablet by ity of tablet 00:00: mouth [place] 00 every 4 Medical (four) Branch hours as needed for N/V unresponsi ve to Ondansetro n. proMETHazin 2021-08 Yes [id number] 25mg Take 1 Univers e 25 mg 09 tablet by ity of tablet 00:00: mouth [place] 00 every 4 Medical (four) Branch hours as needed for N/V unresponsi ve to Ondansetro n. proMETHazin 2021-08- No [id number] 25mg Take 1 Univers e 25 mg 08-12 tablet by ity of tablet 00:00: 00:00 mouth [place] 00 :00 every 4 Medical (four) Branch hours as needed for N/V unresponsi ve to Ondansetro n. proMETHazin 2021-08- No [id number] 25mg Take 1 Univers e 25 mg 08-12 tablet by ity of tablet 00:00: 00:00 mouth [place] 00 :00 every 4 Medical (four) Branch hours as needed for N/V unresponsi ve to Ondansetro n. docusate 2021-08- No [id number] 100mg Take 1 Univers 100 mg 08-12 capsule by ity of capsule 00:00: 05:59 mouth in [place] 00 :00 the Medical morning Branch and 1 capsule in the evening. Do all this for 30 days. docusate 2021-08- No [id number] 100mg Take 1 Univers 100 mg 08-12 [...] Indication s: acute pain ciprofloxac 2021-08- No [id number] 500mg Take 1 Univers in HCl 500 1-09 11-17 tablet by ity of mg tablet 00:00: 05:59 mouth [place] 00 :00 every 12 Medical (twelve) Branch hours for 7 days. metroNIDAZO 2021-08- No [id number] 500mg Take 2 Univers LE 250 mg [...] Indication s: acute pain ciprofloxac 2021-08- No [id number] 500mg Take 1 Univers in HCl 500 08-12 tablet by ity of mg tablet 00:00: 05:59 mouth [place] 00 :00 every 12 Medical (twelve) Branch hours for 7 days. metroNIDAZO 2021-08- No [id number] 500mg Take 2 [facility] LE 250 mg 08-12 tablets by ity of tablet 00:00: 05:59 mouth [place] 00 :00 every 12 Medical (twelve) Branch hours for 7 days. proMETHazin 2021-08 Yes 25mg 25 mg, IV U nivers e 08-11 Piggyback, ity of (PHENERGAN) 21:26: Q4HPRN, [place] 25 mg in 59 Starting Medical NaCl 0.9% on Fri Branch (NS) 50 mL 06/11/22 at IV 1526, [...] Yes 40mg 40 mg, Unive rs (LOVENOX) 1-08 Subcutaneo ity of injection 15:00: [place], [place]ILY, [place] 40 mg 00 First dose Medical on [facility] 06/11/22 at 0900, Until Discontinu ed, Routine DULoxetine 2021-08 Yes 60mg 60 mg, Unive rs (CYMBALTA) 08 Oral, ity of capsule 60 15:00: DAILY, [place] mg 00 First dose Medical on [facility] 06/11/22 at 0900, Until Discontinu ed, Routine lactobacill 2021-08 Yes .5mg 0.5 mg, Uni vers us 08 Oral, ity of acidophilus 15:00: DAILY, [place] tablet 0.5 00 First dose Med ical mg on [facility] 06/11/22 at 0900, Until Discontinu ed, Routine Sliding 2021-08 Yes Subcutaneo Univ ers Scale 1-08 us, TID ity of Insulin - 14:00: MEALS, [place] Lispro 00 First dose Medical (HumaLOG) + on [facility] Fsbg 06/11/22 at Testing 0800, Until Discontinu ed, Routine morpHINE (4 2021-08 Yes 4mg 4 mg, Slow Univers mg/mL) 08-11 IV Push, ity of injection 4 12:52: Q4HPRN, [place] mg 08 Starting Medical on [facility] 06/11/22 at 0652, Until Discontinu ed, Routine, Pain (scale 7-10) cefTRIAXone 2021-08 No 1000mg 1,000 mg, Univers (ROCEPHIN) 08-11 11-09 IV ity of 1,000 mg in 08:00: 18:21 Piggyback, [place] NaCl 0.9% 00 :49 Q12H ABX, Medic [...] Yes 100mg 100 mg, Unive rs (COLACE) 08 Oral, BID, ity o f capsule 100 06:15: First dose [place] mg 00 on [facility] 06/11/22 at Branch 0015, Until Discontinu ed, Routine gabapentin 2021-08 Yes 200mg 200 mg, Uni vers (NEURONTIN) 08 Oral, BID, it y of capsule 200 06:15: First dose [place] mg 00 on [facility] 06/11/22 at Branch 0015, Until Discontinu ed, Routine cyclobenzap 2021-08 Yes 10mg 10 mg, Univ ers rine 08 Oral, BID, ity of (FLEXERIL) 06:15: First dose [place] tablet 10 00 on [facility] Medical mg 06/11/22 at Branch 0015, Until Discontinu ed, Routine ondansetron 2021-08 Yes 4mg 4 mg, Slow Univers (ZOFRAN 08-11 IV Push, ity of (PF)) 06:06: Q6HPRN, [place] injection 4 47 Starting Medi danielle mg on [facility] 06/11/22 at 0006, Until Discontinu ed, Routine, Nausea and Vomiting (N/V) traMADoL 2021-08 No 50mg 50 mg, Univer s (ULTRAM) 08-11 1110 Oral, ity of tablet 50 06:06: 06:05 Q8HPRN, [place] mg 37 :37 Starting Medical on [facility] 06/11/22 at 0006, Until Sneha 06/13/22 at 0005, Routine, Pain (scale 4-6) FENTanyl PF 2021-08 No 50ug 50 mcg, Un james (SUBLIMAZE 08-1108 Slow IV ity o f (PF)) 05:58: 12:52 Push, [place] injection 16 :20 Q4HPRN, Medical 50 mcg [...] 24 :04 Starting Medi danielle mg on Fri Branch 06/10/22 at 2117, Until Fri06/11/22 at 0007, KUNAL, Nausea and Vomiting (N/V) metoclopram 2021-08 No 10mg 10 mg, Uni vers raven HCl 08-11 Slow IV ity of (REGLAN) 03:17: 21:27 Push, [place] injection 15 :54 TIDPRN, Medical 10 mg Starting Branch on Fri06/10/22 at 2117, Until Fri06/11/22 at 1527, Routine, Nausea and Vomiting (N/V) morpHINE (4 2021-08 No 4mg 4 mg, Slow Univers mg/mL) 08-11 IV Push, ity of injection 4 03:16: 05:58 Q4HPRN, [place] mg 49 :48 Starting Medical on Fri Branch 06/10/22 at 2116, Until Fri06/10/22 at 2358, Routine, [...] Medical mg/1.5 mL) Branch PnIj semaglutide 2021-08 No Wegovy Uni vers , weight 08-11 0.25 [...] 00 :00 dose, On Medical NaCl 0.9% [facility] Branch (NS) 50 mL 06/10/22 at IV 1800, KUNAL piggyback ondansetron 2021-08 No 4mg 4 mg, Slow Univers (ZOFRAN 08-10 IV Push, ity of (PF)) 23:15: 22:25 ONCE, 1 [place] injection 4 00 :00 dose, On Medi danielle mg Mon Branch 06/10/22 at 1715, KUNAL morpHINE (4 2021-08 No 4mg 4 mg, Slow Univers mg/mL) 08-10 IV Push, ity of injection 4 22:15: 21:21 ONCE, 1 [place] mg 00 :00 dose, On Medical Mon Branch 06/10/22 at 1615, STAT cefTRIAXone 2021-08 No 1000mg 1,000 mg, Univers (ROCEPHIN) 08-10 IV ity of 1,000 mg in 20:15: 20:51 Piggyback, [place] NaCl 0.9% 00 :00 ONCE, 1 Medical (NS) 50 mL dose, On Branc h MINI-BAG Fri06/10/22 at 1415, Administer over [...] [place] mg 00 :00 dose, On Medical [facility] 06/10/22 at 1330, STAT ondansetron 2021-08 No 4mg 4 mg, Slow Univers (ZOFRAN 08-10 IV Push, ity of (PF)) 19:30: 19:29 ONCE, 1 [place] injection 4 00 :00 dose, On Medi danielle mg [facility] 06/10/22 at 1330, KUNAL FENTanyl PF 2021-08 No 50ug 50 mcg, Un james (SUBLIMAZE 08-10 Slow IV ity o f (PF)) 18:01: 18:02 Push, [place] injection 00 :00 ONCE, 1 Medical 50 mcg dose, On Branch Fri06/10/22 at 1215, Routine cefpodoxime 2021-08- No [id number] 100mg Take 1 Univers 100 mg 08-10 tablet by ity of tablet 00:00: 00:00 mouth in [place] 00 :00 the Medical morning Branch and 1 tablet in the evening. Do all this for 7 days. amitriptyli Yes amitriptyl Univers ne 150 mg 6-13 ine 150 mg ity of tablet 09:33: tablet [place] 45 Take 1 Medical tablet Branch every day by oral route for 30 days. Fesoterodin 0 Yes Toviaz 4 Un james e (TOVIAZ) 6-13 mg ity of 4 mg tablet 09:33: tablet,ext [place] 45 ended Medical release Branch oxybutynin 0 Yes oxybutynin U nivers 10 mg 24 hr 6-13 chloride ity of tablet 09:33: ER 10 mg [place] 45 tablet,ext Medical ended Branch release 24 hr semaglutide 0 Yes .25mg 0.25 mg. U nivers (OZEMPIC) [...] by oral route for 10 days. cyclobenzap 0 Yes 10mg Take 10 mg Univers rine 10 mg 6-13 by mouth 2 ity of tablet 09:33: (two) [place] 45 times Medical daily. Branch DULoxetine 0 Yes 60mg Take 60 mg U nivers 60 mg 6-13 by mouth ity of capsule 09:33: daily. [place] 45 Medical Branch gabapentin 0 Yes 100mg Take 100 Un james 100 mg 4-28 mg by ity of capsule 00:00: mouth (two) Medical times Branch daily. gabapentin 2022-0 Yes 100mg Take 100 [place] 100 mg 4-28 mg by ity of capsule 00:00: mouth (two) Medical times Branch daily. gabapentin 2022-0 Yes 100mg Take 100 [place] 100 mg 4-28 mg by ity of capsule 00:00: mouth (two) Medical times Branch daily. gabapentin 2022-0 Yes 100mg Take 100 [place] 100 mg 4-28 mg by ity of capsule 00:00: mouth (two) Medical times Branch daily. gabapentin 2022-0 Yes 100mg Take 100 [place]ames 100 mg 4-28 mg by ity of capsule 00:00: mouth (two) Medical times Branch daily. gabapentin 2022-0 Yes 100mg Take 100 [place] 100 mg 4-28 mg by ity of capsule 00:00: mouth (two) Medical times Branch daily. gabapentin 2022-0 Yes 100mg Take 100 Un [place]ames 100 mg 4-28 mg by ity of capsule 00:00: mouth (two) Medical times Branch daily. gabapentin 2022-0 Yes 100mg Take 100 [place] 100 mg 4-28 mg by ity of capsule 00:00: mouth (two) Medical times Branch daily. gabapentin 2022-0 Yes 100mg Take 100 [place] 100 mg 4-28 mg by ity of capsule 00:00: mouth (two) Medical times Branch daily. gabapentin 2022-0 Yes 100mg Take 100 [place] 100 mg 4-28 mg by ity of capsule 00:00: mouth (two) Medical times Branch daily. gabapentin 2022-0 Yes 100mg Take 100 Un [place]ames 100 mg 4-28 mg by ity of capsule 00:00: mouth (two) Medical times Branch daily. gabapentin 2022-0 Yes 100mg Take 100 Un james 100 mg 4-28 mg by ity of capsule 00:00: mouth (two) Medical times Branch daily. gabapentin 2022-0 Yes 100mg Take 100 [place] 100 mg 4-28 mg by ity of capsule 00:00: mouth (two) Medical times Branch daily. gabapentin 2022-0 Yes 100mg Take 100 Un [place]ames 100 mg 4-28 mg by ity of capsule 00:00: mouth 2 (two) Medical times Branch daily. gabapentin 2022-0 Yes 100mg Take 100 [place] 100 mg 4-28 mg by ity of capsule 00:00: mouth 2 (two) Medical times Branch daily. gabapentin 2022-0 Yes 100mg Take 100 [place] 100 mg 4-28 mg by ity of capsule 00:00: mouth 2 (two) Medical times Branch daily. gabapentin 2022-0 Yes 100mg Take 100 Un [place] 100 mg 4-28 mg by ity of capsule 00:00: mouth (two) Medical times Branch daily. gabapentin 2022-0 Yes 100mg Take 100 [place]ames 100 mg 4-28 mg by ity of capsule 00:00: mouth (two) Medical times Branch daily. lidocaine-p 2022-0 Yes APPLY TO Un james rilocaine 2-28 AFFECTED ity of 2.5-2.5 % 00:00: AREA EVERY [place] cream 00 DAY Medical NEEDED Branch eszopiclone 2-0 Yes 1mg Take 1 mg U nivers 1 mg tablet 2-28 by mouth ity of 00:00: daily. Medical Branch lidocaine-p 2022-0 Yes APPLY TO [facility] [place]ames rilocaine 2-28 AFFECTED ity of 2.5-2.5 % 00:00: AREA EVERY [place] cream 00 DAY Medical NEEDED Branch eszopiclone 2-0 Yes 1mg Take 1 mg U nivers 1 mg tablet 2-28 by mouth ity of 00:00: daily. Medical Branch lidocaine-p 2022-0 Yes APPLY TO Un [place]ames rilocaine 2-28 AFFECTED ity of 2.5-2.5 % 00:00: AREA EVERY [place] cream 00 DAY Medical NEEDED Branch eszopiclone 2022-0 Yes 1mg Take 1 mg U nivers [...] 1 mg U nivers 1 mg tablet 10-01 by mouth ity of 00:00: daily. [place] 00 Medical Branch lidocaine-p 2021-0 Yes APPLY TO Un james rilocaine 2-28 AFFECTED ity of 2.5-2.5 % 00:00: AREA EVERY [place] cream 00 DAY Medical NEEDED Branch lidocaine-p 2021-0 Yes APPLY TO [facility] [place]ames rilocaine 2-28 AFFECTED ity of 2.5-2.5 % 00:00: AREA EVERY [place] cream 00 DAY Medical NEEDED Branch lidocaine-p 2021-0 Yes APPLY TO [place] rilocaine 2-28 AFFECTED ity of 2.5-2.5 % 00:00: AREA EVERY [place] cream 00 DAY Medical NEEDED Branch lidocaine-p 2021-0 Yes APPLY TO [facility] [place]ames rilocaine 2-28 AFFECTED ity of 2.5-2.5 % 00:00: AREA EVERY [place] cream 00 DAY Medical NEEDED Branch lidocaine-p 2021-0 Yes APPLY TO Un [place]ames rilocaine 2-28 AFFECTED ity of 2.5-2.5 % 00:00: AREA EVERY [place] cream 00 DAY Medical NEEDED Branch lidocaine-p 2021-0 Yes APPLY TO [place] rilocaine 2-28 AFFECTED ity of 2.5-2.5 % 00:00: AREA EVERY [place] cream 00 DAY Medical NEEDED Branch lidocaine-p 2021-0 Yes APPLY TO [place] rilocaine 2-28 AFFECTED ity of 2.5-2.5 % 00:00: AREA EVERY [place] cream 00 DAY Medical NEEDED Branch lidocaine-p 2021-0 Yes APPLY TO [facility] [place]ames rilocaine 2-28 AFFECTED ity of 2.5-2.5 % 00:00: AREA EVERY [place] cream 00 DAY Medical NEEDED Branch eszopiclone 2021-0 2022- No 1mg Take 1 mg Univers 1 mg tablet 10-01 by mouth ity of 00:00: 00:00 daily. [place] 00 :00 Medical Branch eszopiclone 2021-0 2022- No 1mg Take 1 mg Univers 1 mg tablet 2-28 02-14 by mouth ity of 00:00: 00:00 daily. [place] 00 :00 Medical Branch methylPREDN Yes [id number] 84mg Take 21 Univers ISolone 2-21 tablets by ity of (MEDROL, 00:00: mouth [place] LUNA,) 4 mg 00 SEE-INSTRU Med ical tablets CTIONS. Branch follow package directions methylPREDN 2021- No [id number] 84mg Take 21 Univers ISolone 2-21 11-08 tablets by ity o f (MEDROL, 00:00: 00:00 mouth [place] LUNA,) 4 mg 00 :00 SEE-INSTRU Med ical tablets CTIONS. Branch follow package directions methylPREDN 2020-08 Yes [id number] 84mg Take 21 Univers ISolone 0-19 [id number] tablets by ity of (MEDROL, 00:00: mouth [place] LUNA,) 4 mg 00 SEE-INSTRU Med ical tablets CTIONS. Branch follow package directions methylPREDN 2020-08- No [id number] 84mg Take 21 Univers ISolone 0-19 11-08 [id number] tablets by ity of (MEDROL, 00:00: 00:00 mouth [place] LUNA,) 4 mg 00 :00 SEE-INSTRU Med ical tablets CTIONS. Branch follow package directions methocarbam Yes [id number] 750mg [id number] Take 1 [place] ol 5-17 9103 [id number] tablet Health (Robaxin) 00:00: 3D (750 mg 750 MG 00 total) by tablet mouth 3 (three) times a day if needed for muscle spasms for up to 10 days. methocarbam 2020- No [id number] 750mg [id number] Take 1 [place] ol 5-17 05-28 9103 [id number] tablet Health (Robaxin) 00:00: 04:59 3D (750 mg 750 MG 00 :00 total) by tablet mouth 3 (three) times a day if needed for muscle spasms for up to 10 days. metFORMIN Yes [place] (Glucophage 5-13 Health ) 1000 MG 00:00: tablet 00 metFORMIN Yes [place] (Glucophage 5-13 Health ) 1000 MG 00:00: tablet 00 benzonatate Yes [id number] 100mg Take 1 Univers 100 mg 6-24 capsule by ity of capsule 00:00: mouth 3 [place] 00 (three) Medical times Branch daily as needed for Cough. chlorphenir 2020-0 Yes [id number] 4mg Take 1 Univers amine 4 mg 6-24 tablet by ity of tablet 00:00: mouth [place] 00 every 6 Medical (six) Branch hours as needed for Allergies or Runny nose. benzonatate 2020-0 2021- No [id number] 100mg Take 1 Univers 100 mg 6-24 11-08 capsule by ity of capsule 00:00: 00:00 mouth 3 [place] 00 :00 (three) Medical times Branch daily as needed for Cough. chlorphenir 2019-0 2021- No [id number] 4mg Take 1 [facility] amine 4 mg 6-24 11-08 tablet by ity of tablet 00:00: 00:00 mouth [place] 00 :00 every 6 Medical (six) Branch hours as needed for Allergies or Runny nose. loratadine 2017-0 Yes 10mg Take 10 mg U nivers 10 mg 7-31 by mouth ity of tablet 00:00: daily. [place] [facility] loratadine 2017-0 Yes 10mg Take 10 mg U nivers 10 mg 7-31 by mouth ity of tablet 00:00: daily. [place] [facility] loratadine 2017-0 Yes 10mg Take 10 mg U nivers 10 mg 7-31 by mouth ity of tablet 00:00: daily. [place] [facility] loratadine 2017-0 Yes 10mg Take 10 mg U nivers 10 mg 7-31 by mouth ity of tablet 00:00: daily. [place] [facility] loratadine 2017-0 Yes 10mg Take 10 mg U nivers 10 mg 7-31 by mouth ity of tablet 00:00: daily. [place] [facility] loratadine 2017-0 Yes 10mg Take 10 mg U nivers 10 mg 7-31 by mouth ity of tablet 00:00: daily. [address] loratadine 2017-0 Yes 10mg Take 10 mg U nivers 10 mg 7-31 by mouth ity of tablet 00:00: daily. [address] loratadine 2017-0 Yes 10mg Take 10 mg U nivers 10 mg 7-31 by mouth ity of tablet 00:00: daily. [address] loratadine 2017-0 Yes 10mg Take 10 mg U nivers 10 mg 7-31 by mouth ity of tablet 00:00: daily. [place] [facility] loratadine 2016-0 Yes 10mg Take 10 mg U nivers 10 mg 7-31 by mouth ity of tablet 00:00: daily. [place] [facility] loratadine 2016-0 Yes 10mg Take 10 mg U nivers 10 mg 7-31 by mouth ity of tablet 00:00: daily. [place] [facility] loratadine 2016-0 Yes 10mg Take 10 mg U nivers 10 mg 7-31 by mouth ity of tablet 00:00: daily. [place] [facility] loratadine 2016-0 Yes 10mg Take 10 mg U nivers 10 mg 7-31 by mouth ity of tablet 00:00: daily. [place] [facility] loratadine 2016-0 Yes 10mg Take 10 mg U nivers 10 mg 7-31 by mouth ity of tablet 00:00: daily. [place] [facility] loratadine 2016-0 Yes 10mg Take 10 mg U nivers 10 mg 7-31 by mouth ity of tablet 00:00: daily. [place] [facility] loratadine 2016-0 Yes 10mg Take 10 mg U nivers 10 mg 7-31 by mouth ity of tablet 00:00: daily. [place] [facility] loratadine 2016-0 Yes 10mg Take 10 mg U nivers 10 mg 7-31 by mouth ity of tablet 00:00: daily. [place] [facility] loratadine 2016-0 Yes 10mg Take 10 mg U nivers 10 mg 7-31 by mouth ity of tablet 00:00: daily. [place] [facility] metFORMIN 2016-0 Yes TAKE 1 Univer s 1,000 mg 7-07 TABLET BY ity of tablet 00:00: MOUTH TWICE A Medical DAY Branch NEEDED WITH MORNING AND EVENING MEAL metFORMIN Yes TAKE 1 Univer s 1,000 mg 7-07 TABLET BY ity of tablet 00:00: MOUTH TWICE A Medical DAY Branch NEEDED WITH MORNING AND EVENING MEAL metFORMIN 2016- Yes TAKE 1 Univer s 1,000 mg 7-07 TABLET BY ity of tablet 00:00: MOUTH TWICE A Medical DAY Branch NEEDED WITH [...] NEEDED WITH MORNING AND EVENING MEAL metFORMIN 2016-2022- No TAKE 1 Unive rs 1,000 mg 7-02 02-14 TABLET BY ity o f tablet 00:00: 00:00 MOUTH [place] 00 :00 TWICE A Medical DAY Branch NEEDED WITH MORNING AND EVENING MEAL metFORMIN 2016-2022- No TAKE 1 Unive rs 1,000 mg 7-07 -14 TABLET BY ity o f tablet 00:00: 00:00 MOUTH [place] 00 :00 TWICE A Medical DAY Branch NEEDED WITH [...] mouth [place] 00 daily. Medical Branch famotidine 2017-0 Yes 40mg Take 1 Unive rs 40 mg 2-20 tablet by ity of tablet 00:00: mouth [place] 00 daily. [facility] Branch famotidine Yes 40mg Take 1 Unive rs 40 mg 2-20 tablet by ity of tablet 00:00: mouth [place] 00 daily. [facility] famotidine Yes 40mg Take 1 Unive rs 40 mg 2-20 tablet by ity of tablet 00:00: mouth [place] 00 daily. [facility] Branch famotidine Yes 40mg Take 1 Unive rs 40 mg 2-20 tablet by ity of tablet 00:00: mouth [place] 00 daily. [facility] Branch famotidine Yes 40mg Take 1 Unive rs 40 mg 2-20 tablet by ity of tablet 00:00: mouth [place] 00 daily. [facility] famotidine Yes 40mg Take 1 Unive rs 40 mg 2-20 tablet by ity of tablet 00:00: mouth [place] 00 daily. [facility] famotidine Yes 40mg Take 1 Unive rs 40 mg 2-20 tablet by ity of tablet 00:00: mouth [place] 00 daily. [facility] famotidine 202- No 40mg Take 1 Univ ers 40 mg 2-20 02-14 tablet by ity of tablet 00:00: 00:00 mouth [place] 00 :00 daily. [facility] famotidine 2022- No 40mg Take 1 Univ ers 40 mg 2-20 02-14 tablet by ity of tablet 00:00: 00:00 mouth [place] 00 :00 daily. Medical Branch Meloxicam Meloxicam Yes [place] not Co mmon [place] [facility] Metformin Metformin Yes [place] not Co mmon HCl HCl [place] [facility] Naproxen Naproxen Yes [place] not Comm on [place] [facility] Amoxicillin Amoxicillin Yes [place] not Common -Pot -Pot [place] [facility] Clavulanate Clavulanate [facility] Hydrochloro Hydrochloro Yes [place] not Common thiazide thiazide [place] [facility] Cyclobenzap Cyclobenzap Yes [place] not Common rine HCl rine HCl [place] [facility] Vitamin D Vitamin D Yes [place] not Co mmon (Ergocalcif (Ergocalcif [place] [facility] satya) satya) [facility] Ferrous Ferrous Yes [place] not Common Sulfate Sulfate [place] [facility] Amitriptyli Amitriptyli Yes [place] not Common ne HCl ne HCl [place] [facility] Methocarbam Methocarbam Yes [place] not Common ol ol [place] [facility] Ondansetron Ondansetron Yes [place] not Common HCl HCl [place] [facility] BusPIRone BusPIRone Yes [place] not Co mmon HCl HCl [place] [facility] Diclofenac Diclofenac Yes [place] not Common Sodium Sodium [place] [facility] Benzonatate Benzonatate Yes [place] not Common [place] [facility] Gabapentin Gabapentin Yes [place] not Common [place] [facility] Ketorolac Ketorolac No Ketorolac Tromethamin Tromethamin Tromethami [...] y of Vaccine Quad IM 3+ 00:00:00 [facility] Influenza Virus 2021-06-24 Completed Universit y of Vaccine Quad IM 3+ 00:00:00 [facility] Influenza Virus 2021-06-24 Completed Universit y of Vaccine Quad IM 3+ 00:00:00 [facility] Influenza Virus 2021-06-24 Completed Universit y of Vaccine Quad IM 3+ 00:00:00 [facility] Influenza Virus 2021-06-24 Completed Universit y of Vaccine Quad IM 3+ 00:00:00 [facility] Influenza Virus 2021-06-24 Completed Universit y of Vaccine Quad IM 3+ 00:00:00 [facility] Influenza Virus 2021-06-24 Completed Universit y of Vaccine Quad IM 3+ 00:00:00 [facility] Influenza Virus 2021-06-24 Completed Universit y of Vaccine Quad IM 3+ 00:00:00 [facility] Influenza Virus 2021-06-24 Completed Universit y of Vaccine Quad IM 3+ 00:00:00 [facility] Influenza Virus 2021-06-24 Completed Universit y of Vaccine Quad IM 3+ 00:00:00 [facility] Influenza Virus 2021-06-24 Completed Universit y of Vaccine Quad IM 3+ 00:00:00 [facility] Influenza Virus 2021-06-24 Completed Universit y of Vaccine Quad IM 3+ 00:00:00 [facility] Influenza Virus 2021-06-24 Completed Universit y of Vaccine Quad IM 3+ 00:00:00 [facility] Influenza Virus 2021-06-24 Completed Universit y of Vaccine Quad IM 3+ 00:00:00 [facility] Influenza Virus 2021-06-24 Completed Universit y of Vaccine Quad IM 3+ 00:00:00 [facility] Influenza Virus 2021-06-24 Completed Universit y of Vaccine Quad IM 3+ 00:00:00 [facility] Influenza Virus 2021-06-24 Completed Universit y of Vaccine Quad IM 3+ 00:00:00 [facility] SARS-COV-2 COVID-19 2021-04-23 Completed Unive rsity of PFIZER VACCINE 00:00:00 [place] [facility] SARS-COV-2 COVID-19 2021-04-23 Completed Unive rsity of ALY/J&J VACCINE 00:00:00 [facility] SARS-COV-2 COVID-19 2021-04-23 Completed Unive rsity of PFIZER VACCINE 00:00:00 [facility] SARS-COV-2 COVID-19 2021-04-23 Completed Unive rsity of ALY/J&J VACCINE 00:00:00 [facility] SARS-COV-2 COVID-19 2021-04-23 Completed Unive rsity of PFIZER VACCINE 00:00:00 [facility] SARS-COV-2 COVID-19 2021-04-23 Completed Unive rsity of ALY/J&J VACCINE 00:00:00 [facility] SARS-COV-2 COVID-19 2021-04-23 Completed Unive rsity of PFIZER VACCINE 00:00:00 [facility] SARS-COV-2 COVID-19 2021-04-23 Completed Unive rsity of ALY/J&J VACCINE 00:00:00 [facility] SARS-COV-2 COVID-19 2021-04-23 Completed Unive rsity of PFIZER VACCINE 00:00:00 [facility] SARS-COV-2 COVID-19 2021-04-23 Completed Unive rsity of ALY/J&J VACCINE 00:00:00 [facility] SARS-COV-2 COVID-19 2021-04-23 Completed Unive rsity of PFIZER VACCINE 00:00:00 [facility] SARS-COV-2 COVID-19 2021-04-23 Completed Unive rsity of ALY/J&J VACCINE 00:00:00 [facility] SARS-COV-2 COVID-19 2021-04-23 Completed Unive rsity of PFIZER VACCINE 00:00:00 [facility] SARS-COV-2 COVID-19 2021-04-23 Completed Unive rsity of ALY/J&J VACCINE 00:00:00 [facility] SARS-COV-2 COVID-19 2021-04-23 Completed Unive rsity of PFIZER VACCINE 00:00:00 [facility] SARS-COV-2 COVID-19 2021-04-23 Completed Unive rsity of ALY/J&J VACCINE 00:00:00 [facility] Branch SARS-COV-2 COVID-19 2021-04-23 Completed Unive rsity of PFIZER VACCINE 00:00:00 [facility] SARS-COV-2 COVID-19 2021-04-23 Completed Unive rsity of ALY/J&J VACCINE 00:00:00 [facility] SARS-COV-2 COVID-19 2021-04-23 Completed Unive rsity of PFIZER VACCINE 00:00:00 [facility] SARS-COV-2 COVID-19 2021-04-23 Completed Unive rsity of ALY/J&J VACCINE 00:00:00 [facility] SARS-COV-2 COVID-19 2021-04-23 Completed Unive rsity of PFIZER VACCINE 00:00:00 [facility] SARS-COV-2 COVID-19 2021-04-23 Completed Unive rsity of ALY/J&J VACCINE 00:00:00 [facility] Branch SARS-COV-2 COVID-19 2021-04-23 Completed Unive rsity of PFIZER VACCINE 00:00:00 [facility] SARS-COV-2 COVID-19 2021-04-23 Completed Unive rsity of ALY/J&J VACCINE 00:00:00 [facility] Branch SARS-COV-2 COVID-19 2021-04-23 Completed Unive rsity of PFIZER VACCINE 00:00:00 [facility] SARS-COV-2 COVID-19 2021-04-23 Completed Unive rsity of ALY/J&J VACCINE 00:00:00 [facility] Branch SARS-COV-2 COVID-19 2021-04-23 Completed Unive rsity of PFIZER VACCINE 00:00:00 [facility] SARS-COV-2 COVID-19 2021-04-23 Completed Unive rsity of ALY/J&J VACCINE 00:00:00 [facility] SARS-COV-2 COVID-19 2021-04-23 Completed Unive rsity of PFIZER VACCINE 00:00:00 [facility] SARS-COV-2 COVID-19 2021-04-23 Completed Unive rsity of ALY/J&J VACCINE 00:00:00 [facility] SARS-COV-2 COVID-19 2021-04-23 Completed Unive rsity of PFIZER VACCINE 00:00:00 [facility] SARS-COV-2 COVID-19 2021-04-23 Completed Unive rsity of ALY/J&J VACCINE 00:00:00 [facility] SARS-COV-2 COVID-19 2021-04-23 Completed Unive rsity of PFIZER VACCINE 00:00:00 [facility] SARS-COV-2 COVID-19 2021-04-23 Completed Unive rsity of ALY/J&J VACCINE 00:00:00 [facility] SARS-COV-2 COVID-19 2021-04-23 Completed Unive rsity of PFIZER VACCINE 00:00:00 [facility] SARS-COV-2 COVID-19 2021-04-23 Completed Unive rsity of ALY/J&J VACCINE 00:00:00 [facility] SARS-COV-2 COVID-19 2021-04-02 Completed Unive rsity of PFIZER VACCINE 00:00:00 [facility] SARS-COV-2 COVID-19 2021-04-02 Completed Unive rsity of ALY/J&J VACCINE 00:00:00 [facility] SARS-COV-2 COVID-19 2021-04-02 Completed Unive rsity of PFIZER VACCINE 00:00:00 [facility] SARS-COV-2 COVID-19 2021-04-02 Completed Unive rsity of ALY/J&J VACCINE 00:00:00 [facility] SARS-COV-2 COVID-19 2021-04-02 Completed Unive rsity of PFIZER VACCINE 00:00:00 [facility] SARS-COV-2 COVID-19 2021-04-02 Completed Unive rsity of ALY/J&J VACCINE 00:00:00 [facility] SARS-COV-2 COVID-19 2021-04-02 Completed Unive rsity of PFIZER VACCINE 00:00:00 [facility] SARS-COV-2 COVID-19 2021-04-02 Completed Unive rsity of ALY/J&J VACCINE 00:00:00 [facility] SARS-COV-2 COVID-19 2021-04-02 Completed Unive rsity of PFIZER VACCINE 00:00:00 [facility] SARS-COV-2 COVID-19 2021-04-02 Completed Unive rsity of ALY/J&J VACCINE 00:00:00 [facility] SARS-COV-2 COVID-19 2021-04-02 Completed Unive rsity of PFIZER VACCINE 00:00:00 [facility] SARS-COV-2 COVID-19 2021-04-02 Completed Unive rsity of ALY/J&J VACCINE 00:00:00 [facility] SARS-COV-2 COVID-19 2021-04-02 Completed Unive rsity of PFIZER VACCINE 00:00:00 [facility] SARS-COV-2 COVID-19 2021-04-02 Completed Unive rsity of ALY/J&J VACCINE 00:00:00 [facility] SARS-COV-2 COVID-19 2021-04-02 Completed Unive rsity of PFIZER VACCINE 00:00:00 [facility] SARS-COV-2 COVID-19 2021-04-02 Completed Unive rsity of ALY/J&J VACCINE 00:00:00 [facility] SARS-COV-2 COVID-19 2021-04-02 Completed Unive rsity of PFIZER VACCINE 00:00:00 [facility] SARS-COV-2 COVID-19 2021-04-02 Completed Unive rsity of ALY/J&J VACCINE 00:00:00 [facility] SARS-COV-2 COVID-19 2021-04-02 Completed Unive rsity of PFIZER VACCINE 00:00:00 [facility] SARS-COV-2 COVID-19 2021-04-02 Completed Unive rsity of ALY/J&J VACCINE 00:00:00 [facility] SARS-COV-2 COVID-19 2021-04-02 Completed Unive rsity of PFIZER VACCINE 00:00:00 [facility] SARS-COV-2 COVID-19 2021-04-02 Completed Unive rsity of ALY/J&J VACCINE 00:00:00 [facility] SARS-COV-2 COVID-19 2021-04-02 Completed Unive rsity of PFIZER VACCINE 00:00:00 [facility] SARS-COV-2 COVID-19 2021-04-02 Completed Unive rsity of ALY/J&J VACCINE 00:00:00 [facility] SARS-COV-2 COVID-19 2021-04-02 Completed Unive rsity of PFIZER VACCINE 00:00:00 [facility] SARS-COV-2 COVID-19 2021-04-02 Completed Unive rsity of ALY/J&J VACCINE 00:00:00 [facility] SARS-COV-2 COVID-19 2021-04-02 Completed Unive rsity of PFIZER VACCINE 00:00:00 [facility] SARS-COV-2 COVID-19 2021-04-02 Completed Unive rsity of ALY/J&J VACCINE 00:00:00 [facility] SARS-COV-2 COVID-19 2021-04-02 Completed Unive rsity of PFIZER VACCINE 00:00:00 [facility] SARS-COV-2 COVID-19 2021-04-02 Completed Unive rsity of ALY/J&J VACCINE 00:00:00 [facility] SARS-COV-2 COVID-19 2021-04-02 Completed Unive rsity of PFIZER VACCINE 00:00:00 [facility] SARS-COV-2 COVID-19 2021-04-02 Completed Unive rsity of ALY/J&J VACCINE 00:00:00 [facility] SARS-COV-2 COVID-19 2021-04-02 Completed Unive rsity of PFIZER VACCINE 00:00:00 [facility] SARS-COV-2 COVID-19 2021-04-02 Completed Unive rsity of ALY/J&J VACCINE 00:00:00 [facility] SARS-COV-2 COVID-19 2021-04-02 Completed Unive rsity of PFIZER VACCINE 00:00:00 [facility] SARS-COV-2 COVID-19 2021-04-02 Completed Unive rsity of ALY/J&J VACCINE 00:00:00 [facility] Influenza Virus 2020-05-12 Completed Universit y of Vaccine Quad IM 3+ 00:00:00 [facility] Influenza Virus 2020-05-12 Completed Universit y of Vaccine Quad IM 3+ 00:00:00 [facility] Influenza Virus 2020-05-12 Completed Universit y of Vaccine Quad IM 3+ 00:00:00 [facility] Influenza Virus 2020-05-12 Completed Universit y of Vaccine Quad IM 3+ 00:00:00 [facility] Influenza Virus 2020-05-12 Completed Universit y of Vaccine Quad IM 3+ 00:00:00 [facility] Influenza Virus 2020-05-12 Completed Universit y of Vaccine Quad IM 3+ 00:00:00 [facility] Influenza Virus 2020-05-12 Completed Universit y of Vaccine Quad IM 3+ 00:00:00 [facility] Influenza Virus 2020-05-12 Completed Universit y of Vaccine Quad IM 3+ 00:00:00 [facility] Influenza Virus 2020-05-12 Completed Universit y of Vaccine Quad IM 3+ 00:00:00 [facility] Influenza Virus 2020-05-12 Completed Universit y of Vaccine Quad IM 3+ 00:00:00 [facility] Influenza Virus 2020-05-12 Completed Universit y of Vaccine Quad IM 3+ 00:00:00 [facility] Influenza Virus 2020-05-12 Completed Universit y of Vaccine Quad IM 3+ 00:00:00 [facility] Influenza Virus 2020-05-12 Completed Universit y of Vaccine Quad IM 3+ 00:00:00 [facility] Influenza Virus 2020-05-12 Completed Universit y of Vaccine Quad IM 3+ 00:00:00 [facility] Influenza Virus 2020-05-12 Completed Universit y of Vaccine Quad IM 3+ 00:00:00 [facility] Influenza Virus 2020-05-12 Completed Universit y of Vaccine Quad IM 3+ 00:00:00 [facility] Influenza Virus 2020-05-12 Completed Universit y of Vaccine Quad IM 3+ 00:00:00 [facility] Influenza Virus 2020-05-12 Completed Universit y of Vaccine Quad IM 3+ 00:00:00 [facility] LIDOCAINE HCL LIDOCAINE HCL 2020-01-20 Completed Common S pirit - 10MG/ML 10MG/ML 08:45:00 [facility] LIDOCAINE HCL LIDOCAINE HCL 2020-01-20 Completed Common S pirit - 10MG/ML 10MG/ML 08:45:00 [facility] LIDOCAINE HCL LIDOCAINE HCL 2020-01-20 Completed Common S pirit - 10MG/ML 10MG/ML 08:45:00 [facility] LIDOCAINE HCL LIDOCAINE HCL 2020-01-20 Completed Common S pirit - 10MG/ML 10MG/ML 08:45:00 [facility] LIDOCAINE HCL LIDOCAINE HCL 2020-01-20 Completed Common S pirit - 10MG/ML 10MG/ML 08:45:00 [facility] LIDOCAINE HCL LIDOCAINE HCL 2020-01-20 Completed Common S pirit - 10MG/ML 10MG/ML 08:45:00 [facility] Depo-Medrol Depo-Medrol 2020-01-20 Completed Common Spiri t - (Methylprednisolone (Methylprednisolone 08:44:00 [facility] ) 40mg ) 40mg [facility] Depo-Medrol Depo-Medrol 2020-01-20 Completed Common Spiri t - (Methylprednisolone (Methylprednisolone 08:44:00 [facility] ) 40mg ) 40mg [facility] Depo-Medrol Depo-Medrol 2020-01-20 Completed Common Spiri t - (Methylprednisolone (Methylprednisolone 08:44:[address] [facility] ) 40mg ) 40mg [facility] Depo-Medrol Depo-Medrol 2020-01-20 Completed Common Spiri t - (Methylprednisolone (Methylprednisolone 08:43:[address] [facility] ) 40mg ) 40mg [facility] Depo-Medrol Depo-Medrol 2020-01-20 Completed Common Spiri t - (Methylprednisolone (Methylprednisolone 08:43:[address] [facility] ) 40mg ) 40mg [facility] Depo-Medrol Depo-Medrol 2020-01-20 Completed Common Spiri t - (Methylprednisolone (Methylprednisolone 08:43:[address] [facility] ) 40mg ) 40mg [facility] Influenza Virus 2019-09-13 Completed Universit y of Vaccine Quad IM 3+ 00:00:00 [facility] Influenza Virus 2019-09-13 Completed Universit y of Vaccine Quad IM 3+ 00:00:00 [facility] Influenza Virus 2019-09-13 Completed Universit y of Vaccine Quad IM 3+ 00:00:00 [facility] Influenza Virus 2019-09-13 Completed Universit y of Vaccine Quad IM 3+ 00:00:00 [facility] Influenza Virus 2019-09-13 Completed Universit y of Vaccine Quad IM 3+ 00:00:00 [facility] Influenza Virus 2019-09-13 Completed Universit y of Vaccine Quad IM 3+ 00:00:00 [facility] Influenza Virus 2019-09-13 Completed Universit y of Vaccine Quad IM 3+ 00:00:00 [facility] Influenza Virus 2019-09-13 Completed Universit y of Vaccine Quad IM 3+ 00:00:00 [facility] Influenza Virus 2019-09-13 Completed Universit y of Vaccine Quad IM 3+ 00:00:00 [facility] Influenza Virus 2019-09-13 Completed Universit y of Vaccine Quad IM 3+ 00:00:00 [facility] Influenza Virus 2019-09-13 Completed Universit y of Vaccine Quad IM 3+ 00:00:00 [facility] Influenza Virus 2019-09-13 Completed Universit y of Vaccine Quad IM 3+ 00:00:00 [facility] Influenza Virus 2019-09-13 Completed Universit y of Vaccine Quad IM 3+ 00:00:00 [facility] Influenza Virus 2019-09-13 Completed Universit y of Vaccine Quad IM 3+ 00:00:00 [facility] Influenza Virus 2019-09-13 Completed Universit y of Vaccine Quad IM 3+ 00:00:00 [facility] Influenza Virus 2019-09-13 Completed Universit y of Vaccine Quad IM 3+ 00:00:00 [facility] Influenza Virus 2019-09-13 Completed Universit y of Vaccine Quad IM 3+ 00:00:00 [facility] Influenza Virus 2019-09-13 Completed Universit y of Vaccine Quad IM 3+ 00:00:00 [facility] Vital Signs Vital Name Observation Time Observation Value Comments Source Systolic blood 2022-09-23 14:42:00 141 mm[Hg] Univer sity of pressure [facility] Diastolic blood 2022-09-23 14:42:00 74 mm[Hg] Unive rsity of [facility] Heart rate 2022-09-23 14:42:00 76 /min Universi ty [facility] Respiratory rate 2022-09-23 14:42:00 8 /min [facility] Oxygen saturation in 2022-09-23 14:42:00 100 /min University of Arterial blood by [employer] Pulse oxim[facility] Branch Body temperature 2022-09-23 14:07:00 36.5 Vika [facility] Body height 2022-09-17 19:30:00 [facility] Body weight 2022-09-17 19:30:00 113.399 kg [facility] BMI 2022-09-17 19:30:00 47.24 kg/m2 [facility] Systolic blood 2022-09-23 12:46:00 144 mm[Hg] Univer sity of pressure [facility] Diastolic blood 2022-09-23 12:46:00 68 mm[Hg] Unive rsity of pressure [facility] Heart rate 2022-09-23 12:46:00 90 /min Universi ty [facility] Body temperature 2022-09-23 12:46:00 36.56 Vika Univ ersity of [facility] Respiratory rate 2022-09-23 12:46:00 17 /min [facility] Oxygen saturation in 2022-09-23 12:46:00 95 /min University of Arterial blood by [employer] Branch Body height 2022-09-17 19:30:00 154.9 cm [facility] Body weight 2022-09-17 19:30:00 113.399 kg [facility] BMI 2022-09-17 19:30:00 47.24 kg/m2 [facility] Systolic blood 2022-09-19 16:02:00 125 mm[Hg] Univer sity of pressure [facility] Diastolic blood 2022-09-19 16:02:00 81 mm[Hg] Unive rsity of pressure [facility] Heart rate 2022-09-19 16:02:00 79 /min Universi ty [facility] Body temperature 2022-09-19 16:02:00 36.94 Vika Univ ersity of [facility] Respiratory rate 2022-09-19 16:02:00 18 /min Univ ersity of [place] [facility] [place] Body height 2022-09-19 16:02:00 154.9 cm Universi ty [facility] Body weight 2022-09-19 16:02:00 104.327 kg [facility] BMI 2022-09-19 16:02:00 43.46 kg/m2 [facility] ty [facility] Oxygen saturation in 2022-09-19 16:02:00 98 /min University of Arterial blood by [place] [employer] [facility] oxim[facility] Body weight 2022-09-10 21:39:00 113.399 kg [facility] BMI 2022-09-10 21:39:00 47.24 kg/m2 [facility] Systolic blood 2022-06-12 18:06:00 155 mm[Hg] Univer sity of pressure [facility] Diastolic blood 2022-06-12 18:06:00 84 mm[Hg] Unive rsity of pressure [facility] Heart rate 2022-06-12 18:06:00 90 /min Universi ty [facility] Body temperature 2022-06-12 18:06:00 36 Vika Univ ersity of [facility] Respiratory rate 2022-06-12 18:06:00 18 /min Univ ersity [facility] Oxygen saturation in 2022-06-12 18:06:00 94 /min University of Arterial blood by [facility] Pulse oximetry Branch Body weight 2022-06-11 09:20:00 113.49 kg Universi ty [facility] BMI 2022-06-11 09:20:00 47.27 kg/m2 Universi ty [facility] Body height 2022-06-11 01:52:00 154.9 cm Universi [facility] Systolic blood 2022-04-19 13:32:00 127 mm[Hg] Univer sity of pressure [facility] Diastolic blood 2022-04-19 13:32:00 67 mm[Hg] [facility] Heart rate 2022-04-19 13:32:00 88 /min Universi ty [facility] Body height 2022-04-19 13:32:00 154.9 cm Universi [facility] Body weight 2022-04-19 13:32:00 117.028 kg Universi [facility] BMI 2022-04-19 13:32:00 48.75 kg/m2 Universi [facility] Body height 2020-12-18 16:17:00 [facility] 2020-12-18 16:17:00 115[facility]667 [facility] BMI 2020-12-18 16:17:00 46.64 kg[facility]m2 [facility] Body height 2020-12-18 16:17:00 157.5 [facility] Body weight 2020-12-18 16:17:00 115.667 [facility] BMI 2020-12-18 16:17:00 46.64 kg[facility]m2 [facility] Procedures Procedure Date / Time Performing Clinician Source Performed [place] TIME OR 2022-09-23 14:53:25 Kayla Lutz [facility] (NON-REPORTABLE) [facility] [place] TIME OR 2022-09-23 14:53:25 Kayla Lutz [facility] (NON-REPORTABLE) [facility] MAJOR JOINT INJECTION 2022-09-23 13:32:00 Kayla Lutz [facility] POCT GLUCOSE (AUTOMATED) 2022-09-23 12:50:00 Kayla Lutz [facility] POCT GLUCOSE (AUTOMATED) 2022-09-23 12:50:00 Kayla Lutz [facility] HB ABO GROUPING 2022-09-23 12:45:00 Kayla Lutz [facility] HB ABO GROUPING 2022-09-23 12:45:00 Kayla Lutz [facility] DAY SURGERY - ADC 2022-09-23 06:01:00 Doctor Unassigned, No [facility] TROPONIN I 2022-09-19 15:38:00 Rushing, [facility] XR CHEST 2 VW 2022-09-19 14:38:32 Kayla Lutz [facility] ASSIGNMENT OF BENEFITS 2022-09-19 14:20:21 Doctor Unassigned, No [facility] EXTERNAL PROVIDER 2022-09-17 06:01:00 Doctor Unassigned, No [facility] ASSIGNMENT OF BENEFITS 2022-09-10 21:32:35 Doctor Unassigned, No [facility] POCT GLUCOSE (AUTOMATED) 2022-06-12 18:08:00 Annamaria Barker [facility] BASIC METABOLIC PANEL 2022-06-12 09:27:[address] [facility] (NA, K, CL, CO2, Medical [place] GLUCOSE, BUN, CREATININE, CA) CBC WITH DIFF 2022-06-12 09:27:00 Jimmy Rowland [facility] POCT GLUCOSE (AUTOMATED) 2022-06-12 07:56:00 Annamaria Barker [facility] POCT GLUCOSE (AUTOMATED) 2022-06-12 01:45:00 Annamaria Barker [facility] POCT GLUCOSE (AUTOMATED) 2022-06-11 22:56:00 Annamaria Barker [facility] POCT GLUCOSE (AUTOMATED) 2022-06-11 18:11:00 Annamaria Barker [facility] POCT GLUCOSE (AUTOMATED) 2022-06-11 14:05:00 Annamaria Barker [facility] PHOSPHORUS 2022-06-11 10:40:00 Robbi [facility] CREATINE KINASE 2022-06-11 10:40:00 Robbi [facility]uro [facility] AMYLASE 2022-06-11 10:40:00 Bhaskar [facility] LIPASE 2022-06-11 10:40:00 Bhaskar [facility] MAGNESIUM 2022-06-11 10:40:00 Bhaskar [facility] COMP. METABOLIC PANEL 2022-06-11 10:40:00 Robbi Muro [facility] ([id number]) [facility] CBC WITH DIFF 2022-06-11 10:40:00 Bhaskar [facility] GLYCOSYLATED HEMOGLOBIN 2022-06-11 10:40:00 Jimmy Rowland [facility] (A1C) [facility] N-TERMINAL PRO-BNP 2022-06-11 10:40:00 Bhaskar [facility] POCT GLUCOSE (AUTOMATED) 2022-06-11 07:56:00 Annamaria Barker [facility] URINE CULTURE 2022-06-11 05:18:00 Bhaskar [facility] PROTHROMBIN TIME / INR 2022-06-11 03:24:00 Bhaskar ender [facility] LACTIC ACID WHOLE BLOOD 2022-06-11 03:18:00 Robbi Muro [facility] C-REACTIVE PROTEIN 2022-06-11 03:17:00 Bhaskar [facility] SEDIMENTATION RATE 2022-06-11 03:17:00 Bhaskar [facility] PROCALCITONIN 2022-06-11 03:17:00 [facility]ar [facility] US OVARY TORSION 2022-06-10 22:01:56 Brodie Clemons [facility] URINALYSIS 2022-06-10 19:14:00 Brodie Clemons [facility] CT ABDOMEN PELVIS WO 2022-06-10 18:36:36 Brodie Clemons [facility] PHOSPHORUS 2022-06-10 17:54:00 Bhaskar [facility] URIC ACID 2022-06-10 17:54:00 Robbi Muro [facility] LIPASE 2022-06-10 17:54:00 Brodie Clemons [facility] MAGNESIUM 2022-06-10 17:54:00 Bhaskar [facility] FERRITIN SERUM 2022-06-10 17:54:00 Bhaskar [facility] HEPATIC FUNCTION PANEL 2022-06-10 17:54:00 Brodie Clemons [facility] ([id number]) (ALB,T.PRO,BILI [facility] T,BU/BC,ALT,AST,ALK PHOS) BASIC METABOLIC PANEL 2022-06-10 17:54:00 Brodie Clemons [facility] (NA, K, CL, CO2, Medical Branch GLUCOSE, BUN, CREATININE, CA) IRON PANEL 2022-06-10 17:54:00 Robbi Muro [facility] CBC WITH DIFF 2022-06-10 17:54:00 Brodie Clemons [facility] N-TERMINAL PRO-BNP 2022-06-10 17:54:00 Robbi Muro [facility] CONSENT/REFUSAL FOR 2022-06-10 17:38:54 Doctor Unassigned, No Un [facility] DIAGNOSIS AND TREATMENT Name [facility] Encounters Start End Encounter Admission Attending Care Care Encounter Source Date/Time Date/Time Type Type Clinicians Facility Department ID 2022-01-04 Outpatient Shira LUTZ [facility] [id number] Univers 12:25:16 KAYLA hills [facility] 2021-08-29 Outpatient STLMLC STLMLC [id number] Common 12:51:44 [id number] [facility] 2021-08-29 Outpatient STLMLC STLMLC [id number] Common 11:59:56 [id number] [facility] 2021-08-29 Outpatient STLMLC STLMLC [id number] Common 11:28:05 [id number] [facility] 2021-08-29 Outpatient STLMLC STLMLC [id number] Common 11:27:12 [id number] [facility] 2021-06-01 Emergency [facility] [id number] Univers 02:46:06 ity of [facility] 2020-12-18 Outpatient [facility] [id number] [place] 09:37:27 Health 2020-12-18 Outpatient [facility] [id number] [place] 09:37:27 [facility] 2020-12-18 Outpatient [facility] [id number] [place] 09:37:27 [facility] 2020-12-15 Outpatient [facility] [id number] [place] 12:03:34 [facility] 2020-12-15 Outpatient [facility] [id number] [place] 12:03:34 [facility] 2020-12-15 Outpatient [facility] [id number] [place] 12:00:05 [facility] 2020-12-09 Outpatient STARR, [facility] [id number] [place] 04:06:39 [facility] 2022-09-23 2022-09-23 [facility]patient [facility] SOR [id number] Univers 06:38:00 09:05:00 KAYLA hills [facility] 2022-09-23 2022-09-23 [facility] [id number] Univers 06:38:00 09:05:00 Encounter Kayla MEEKS [id number] [id number] [id number] [facility] [address] [place] 2022-09-23 2022-09-23 Surgery [facility] [id number] Univers 07:25:00 07:50:00 Kayla MEEKS [id number] i [id number]ICAL [id number] [facility] [address] Branch 2022-09-23 2022-09-23 Orders Doctor TRANG [id number] Univers 00:00:00 00:00:00 Only Unassigned, DIONICIO [id number] ity of [place] [facility] [id number] [place]aze as [id number] [address] 2022-09-20 2022-09-20 Telephone Keanu [facility] [id number] Univers 00:00:00 00:00:00 [facility] [id number] it y of [facility] [id number] Blaze as GREGOR?BLEA [id number] Mt dicbernard KNEY [address] [place] MEDICAL OFFICE BUILDING 2022-09-19 2022-09-19 Emergency X PEDRO LUIS RUSHING [facility] ERT 1 [id number] Univers 10:05:00 11:39:00 PEDRO LUIS RUSHING itdahlia of [facility] 2022-09-19 2022-09-19 Emergency Сергей [facility] [id number] Univers 10:05:00 11:39:00 Pedro Luis MEEKS [id number] i [id number] [id number] [facility] [address] [place] 2022-09-19 2022-09-19 Dredge Worker Luzmaria, [facility] [id number] Univers 10:15:00 10:30:00 Visit Kayla Lutz [id number] [id number] PROF[place] [id number] Mt betsy [facility] [address] [place] BUILDING 2022-09-19 2022-09-19 [facility] [id number] Univers 08:22:49 10:04:00 Encounter Kayla MEEKS [id number] [id number] [id number] [facility] [address] [place] 2022-09-19 2022-09-19 Outpatient R BOLIVAR [facility] [id number] Univers 08:21:46 08:21:46 KAYLA hills [facility] 2022-09-19 2022-09-19 Orders Doctor TRANG [id number] Univers 00:00:00 00:00:00 Only Unassigned, DIONICIO 350.1.13.10 ity of [facility] 4.2.7.2.686 Blaze as [id number] [facility] [address] 2022-09-17 2022-09-17 Orders Doctor TRANG 1.2.840.114 [id number] Univers 00:00:00 00:00:00 Only Unassigned, DIONICIO 350.1.13.10 ity of [facility] 4.2.7.2.686 Blaze as [id number] [address] 2022-09-16 2022-09-16 Prep [facility] 1.2.840.114 [id number] Univers 00:00:00 00:00:00 Surgery [facility] HEALTH 350.1.13.10 it y of [place] 4.2.7.2.686 Blaze as GREGOR?BLEA [phone] Mt agbernard PAREDES [address] [place] [address] 2022-09-10 2022-09-10 Outpatient [facility] [id number] Univers 16:30:00 23:59:00 [facility]-10 2022-09-10 Office [facility] 1.2.840.114 [id number] Univers 16:00:00 16:15:00 Visit [facility] 350.1.13.10 it y [facility] 4.2.7.2.686 Blaze as GREGOR?BLEA [phone] Mt agbernard [address] 2022-09-10 2022-09-10 Orders Doctor TRANG 1.2.840.114 [id number] Univers 00:00:00 00:00:00 Only Unassigned, DIONICIO 350.1.13.10 ity of [facility] 4.2.7.2.686 Blaze as [phone] [address] 2022-09-10 2022-09-10 Telephone [facility] 1.2.534.336 [id number] Univers 00:00:00 00:00:00 [facility] HEALTH 350.1.13.10 it y of [place] 4.2.7.2.686 Blaze as GREGOR?BLEA [phone] Mt betsy PAREDES [address] [place] [address] 2022-09-09 2022-09-09 Telephone [facility] 1.2.787.208 [id number] Univers 00:00:00 00:00:00 [facility] 350.1.13.10 it y of [place] 4.2.7.2.686 Blaze as GREGOR?BLEA [phone] Mt betsy PAREDES [address] MEDICAL OFFICE [facility] 2022-06-13 2022-06-13 Transition TOM Cornejo 1.2.840.114 [id number] Univers 00:00:00 00:00:00 of Care Chelo SIDDIQIY 350.1.13.10 it y of [place] [id number] [facility] [address] 2022-06-10 2022-06-12 Outpatient X [facility] [id number] Univers 11:37:00 16:00:00 ANNAMARIA dahlia [facility] 2022-06-10 2022-06-12 Emergency Brodie Clemons [facility] 1.2.840.1 14 [id number] Univers 11:37:00 16:00:00 Annamaria Barker 350.1.13.10 ity of [place] 4.2.7.2.686 [place] [facility] [id number] [facility] [address] [place] 2022-04-19 2022-04-19 Outpatient Shira COLUNGA [facility] [id number] Univers 08:55:00 23:59:00 [facility] 2022-04-19 2022-04-19 Outpatient Shira [facility] [id number] Univers 08:55:00 23:59:00 [facility] 2022-04-19 2022-04-19 Office [facility] 1.2.840.114 [id number] Univers 08:45:00 09:00:00 Visit [facility] 350.1.13.10 it y of [place] 4.2.7.2.686 Blaze as GREGOR?BLEA [phone] Mt agbernard PAREDES 198 [facility] 2022-02-25 2022-02-25 Outpatient Shira [facility] [id number] Univers 15:15:00 15:15:00 [facility] 2022-02-21 2022-02-21 Outpatient Shira [facility] [id number] Univers 10:45:00 10:45:00 BERNICE ity [facility] 2022-02-18 2022-02-18 Outpatient R ROSALIE, [facility] [id number] Univers 10:30:00 10:30:00 CHISONALISHANA ity o f [facility] 2022-01-18 2022-01-18 Outpatient R HEMA, [facility] [id number] Univers 10:00:00 10:00:00 [facility] 2022-01-17 2022-01-17 [facility] 1.2.933.742 [id number] Univers 00:00:00 00:00:00 Kayla LEE 350.1.13.10 it y of [place] 4.2.7.2.686 Blaze as GREGOR?BLEA [id number] [address] MEDICAL OFFICE BUILDING 2022-01-14 2022-01-14 Outpatient R [facility] SOR [id number] Univers 06:59:00 09:15:00 KAYLA itdahlia [facility] 2022-01-14 2022-01-14 [facility] 1.2.840.114 [id number] Univers 06:59:00 09:15:00 Encounter Kayla MEEKS 350.1.13.10 ity of [place].2.[place] SURGICAL [id number] [facility] [address] 2022-01-14 2022-01-14 Surgery [facility] 1.2.958.300 [id number] Univers 08:20:00 09:12:00 Kayla MEEKS 350.1.13.10 i ty of [place] 4.2.7.2.[place] SURGICAL [id number] [facility] [address] 2022-01-14 2022-01-14 Anesthesia Bharath Padgett [facility] 1.2.840.11 [id number] Univers 08:25:00 08:39:00 Event Trang Hunt 350.1.13.10 ity of [place] 4.2.7.2.686 [place] SURGICAL [phone] [facility] [address] 2022-01-14 2022-01-14 Orders Doctor TRANG 1.2.840.114 [id number] Univers 00:00:00 00:00:00 Only Unassigned, DIONICIO 350.1.13.10 ity of [facility] 4.2.7.2.686 Blaze as [id number] [facility] [address] 2022-01-11 2022-01-11 Hospital [facility] 1.2.840.114 [id number] Univers 07:39:32 23:59:00 Encounter Kayla Ponce MEEKS 350.1.13.10 ity of [place] 4.2.7.2.[place] C[place]US [id number] [facility] [address] 2022-01-11 2022-01-11 Outpatient R [facility] [id number] Univers 07:39:18 23:59:00 KAYLA hills [facility] 2022-01-11 2022-01-11 Dredge Worker Luzmaria, Adc Lab Main [facility] 1.2.8 40.114 [id number] Univers 08:30:00 08:45:00 Visit Kayla Lutz Ponce MEEKS 350.1.13.10 ity of [place] 4.2.7.2.[place] PROFESSIO [phone] [facility] 353 [facility] 2022-01-11 2022-01-11 Laboratory Only, Adc Test [facility] 1.2.840. 114 [id number] Univers 08:15:00 08:30:00 Only Kayla Lutz Ponce MEEKS 350.1.13.10 ity of [place] 4.2.7.2.[place] C[place]US [id number] [facility] [address] 2022-01-11 2022-01-11 Outpatient R BOLIVAR [facility] [id number] Univers 08:15:00 08:15:00 KAYLA floyddahlia [facility] 2022-01-11 2022-01-11 Telephone Bolivar [facility] 1.2.840.114 [id number] Univers 00:00:00 00:00:00 Kayla Serra HEALTH 350.1.13.10 it y of [place] 4.2.7.2.686 Blaze as GREGOR?BLEA [phone] Me betsy PAREDES 198 [facility] OFFICE [facility] 2022-01-04 2022-01-04 Office [facility] 1.2.840.114 [id number] Univers 11:15:00 11:30:00 Visit [facility] 350.1.13.10 it y of [place] 4.2.7.2.686 Blaze as GREGOR?BLEA [id number] Mt betsy PAREDES [address] [place] [address] OFFICE [facility] 2022-01-04 2022-01-04 Outpatient R KEANU [facility] [id number] Univers 11:15:00 11:15:00 [facility] 2022-01-04 2022-01-04 Outpatient R [facility] [id number] Univers 11:15:00 11:15:00 [facility] 2022-01-04 2022-01-04 Prep For [facility] 1..840.114 [id number] Univers 00:00:00 00:00:00 Surgery [facility] 350.1.13.10 it y of [place] 4.2.7.2.686 Blaze as GREGOR?BLEA [id number] Mt betsy PAREDES [address] [place] [address] 2021-12-20 2021-12-20 Outpatient R [facility] [id number] Univers 10:00:00 10:00:00 [facility] 2021-12-11 2021-12-11 Telephone [facility] ..840.114 [id number] Univers 00:00:00 00:00:00 [facility] 350.1.13.10 it y of [place] 4.2.7.2.686 Blaze as GREGOR?BLEA [id number] Mt betsy PAREDES [address] [place] [address] OFFICE [facility] 2021-12-07 2021-12-07 Outpatient R [facility] [id number] Univers 10:23:58 23:59:00 [facility] 2021-12-07 2021-12-07 [facility] .2.840.114 [id number] Univers 10:23:58 23:59:00 Encounter Bernice MEEKS 350.1.13.10 ity of [place] 4.2.7.2.686 [place] [id number] [facility] [address] 2021-11-30 2021-11-30 Outpatient Shira [facility] [id number] Univers 10:45:00 11:13:44 BERNICE ity [facility] 2021-11-30 2021-11-30 Office [facility] 1.2.840.114 [id number] Univers 10:45:00 11:13:44 Visit Bernice Singer HEALTH 350.1.13.10 it y of [facility] 4.2.7.2.686 Blaze as GREGOR?BLEA [id number] Mt ag[address] OFFICE [facility] 2021-11-30 2021-11-30 Outpatient Shira [facility] [id number] Univers 10:45:00 11:13:44 BERNICE ity [facility] 2021-11-28 2021-11-28 Telephone [facility] 1.2.840.114 [id number] Univers 00:00:00 00:00:00 [facility] Sn[facility] 350.1.13.10 it y of [place] 4.2.7.2.686 Blaze as GREGOR?BLEA [id number] [address] 2021-11-28 2021-11-28 Orders Doctor COSTELLO 1.2.840.114 [id number] Univers 00:00:00 00:00:00 Only Unassigned, DIONICIO 350.1.13.10 ity of [facility] [facility] 4.2.7.2.686 Blaze as [id number] [facility] [address] [place] 2021-11-27 2021-11-27 Telephone [facility] 1.2.840.114 [id number] Univers 00:00:00 00:00:00 Kayla L HEALTH 350.1.13.10 it y of [place] 4.2.7.2.686 Blaze as GREGOR?BLEA [id number] Mt ag[address] OFFICE [facility] 2021-11-22 2021-11-22 Orders Doctor COSTELLO 1.2.840.114 [id number] Univers 00:00:00 00:00:00 Only Unassigned, DIONICIO 350.1.13.10 ity of [place] [facility] 4.2.7.2.686 Blaze as [phone] [address] 2021-11-21 2021-11-21 Telephone [facility] 1.2.840.114 [id number] Univers 00:00:00 00:00:00 Kayla L HEALTH 350.1.13.10 it y of [place] 4.2.7.2.686 Blaze as GREGOR?BLEA [id number] Mt betsy PAREDES [address] MEDICAL OFFICE BUILDING 2021-11-21 2021-11-21 Telephone [facility] 1.2.840.114 [id number] Univers 00:00:00 00:00:00 Kayla L HEALTH 350.1.13.10 it y of [place] 4.2.7.2.686 Blaze as GREGOR?BLEA [id number] Mt betsy PAREDES [address] MEDICAL OFFICE [facility] 2021-11-19 2021-11-19 Telephone [facility] 1.2.818.924 [id number] Univers 00:00:00 00:00:00 Bernice S HEALTH 350.1.13.10 it y of [place] 4.2.7.2.686 Blaze as GREGOR?BLEA [phone] Mt betsy PAREDES [address] MEDICAL OFFICE [facility] 2021-11-19 2021-11-19 Telephone [facility] 1.2.840.114 [id number] Univers 00:00:00 00:00:00 Kayla L HEALTH 350.1.13.10 it y of [place] 4.2.7.2.686 Blaze as GREGOR?BLEA [phone] Mt betsy PAREDES [address] MEDICAL OFFICE [facility] 2021-11-12 2021-11-12 Telephone [facility] 1.2.840.114 [id number] Univers 00:00:00 00:00:00 Kayla L HEALTH 350.1.13.10 it y of [place] 4.2.7.2.686 Blaze as GREGOR?BLEA [id number] Mt betsy PAREDES [address] [place] MEDICAL OFFICE [facility] 2021-10-29 2021-10-29 Telephone [facility] 1.2.840.114 [id number] Univers 00:00:00 00:00:00 Kayla Serra HEALTH 350.1.13.10 it y of [place] 4.2.7.2.686 Blaze as GREGOR?BLEA [id number] Mt betsy PAREDES 198 [facility] OFFICE [facility] 2021-10-26 2021-10-26 Telephone [facility] 1.2.840.114 [id number] Univers 00:00:00 00:00:00 Kayla Serra HEALTH 350.1.13.10 it y of [place] 4.2.7.2.686 Blaze as GREGOR?BLEA [id number] Mt betsy PAREDES 198 [facility] OFFICE [facility] 2021-10-24 2021-10-24 Outpatient Shira [facility] [id number] Univers 09:30:00 10:20:40 [facility] 2021-10-24 2021-10-24 Office [facility] 1.2.840.114 [id number] Univers 09:30:00 10:20:40 Visit [facility] HEALTH 350.1.13.10 it y of [place] 4.2.7.2.686 Blaze as GREGOR?BLEA [phone] Mt betsy PAREDES [address] [place] [address] OFFICE [facility] 2021-10-24 2021-10-24 Outpatient R [facility] [id number] Univers 09:30:00 10:20:40 [facility] 2021-10-24 2021-10-24 Office [facility] 1.2.840.114 [id number] Univers 09:30:00 10:20:40 Visit [facility] HEALTH 350.1.13.10 it y of [place] 4.2.7.2.686 Blaze as GREGOR?BLEA [phone] Mt betsy PAREDES 198 [facility] OFFICE [facility] 2021-10-19 2021-10-19 Telephone [facility] 1.2.733.883 [id number] Univers 00:00:00 00:00:00 Bernice S HEALTH 350.1.13.10 it y of [place] 4.2.7.2.686 Blaze as GREGOR?BLEA [phone] Mt betsy PAREDES 198 [facility] 2021-10-18 2021-10-18 Telephone [facility] 1.2.520.454 [id number] Univers 00:00:00 00:00:00 Bernice S HEALTH 350.1.13.10 it y of [place] 4.2.7.2.686 Blaze as GREGOR?BLEA [phone] Mt betsy PAREDES 198 [facility] 2021-10-12 2021-10-12 Outpatient R RENÉE AGUILERA [facility] [id number] Univers 14:00:00 15:00:16 R[address]ÉE [address] [facility] 2021-10-02 2021-10-02 Telephone [facility] 1.2.896.668 [id number] Univers 00:00:00 00:00:00 Bernice S HEALTH 350.1.13.10 it y of [place] 4.2.7.2.686 Blaze as GREGOR?BLEA [phone] Mt betsy PAREDES [address] [place] [address] 2021-10-02 2021-10-02 Orders Doctor TRANG 1.2.840.114 [id number] Univers 00:00:00 00:00:00 Only Unassigned, DIONICIO 350.1.13.10 ity of [facility] [facility] 4.2.7.2.686 Blaze as [id number] [address] 2021-09-27 2021-09-27 Orders Doctor TRANG 1.2.840.114 [id number] Univers 00:00:00 00:00:00 Only Unassigned, DIONICIO 350.1.13.10 ity of [facility] [facility] 4.2.7.2.686 Blaze as [phone] [address] 2021-09-24 2021-09-24 Outpatient Shira COLUNGA [facility] [id number] Univers 15:50:00 23:59:00 BERNICE dahlia [facility] 2021-07-02 2021-07-02 (TEL) STLMLC STLMLC [id number] Co mmon 00:00:00 00:00:00 [facility] 2021-06-27 2021-06-27 Outpatient R KEANU [facility] [id number] Univers 14:15:00 14:15:[address] [facility] 2021-06-27 2021-06-27 Outpatient Shira [facility] [id number] Univers 14:15:00 14:15:[address] [facility] 2021-06-27 2021-06-27 Office [facility] 1.2.840.114 [id number] Univers 13:39:57 13:54:57 Visit Bernice S HEALTH 350.1.13.10 it y of [place] 4.2.7.2.686 Blaze as GREGOR?BLEA [phone] Mt betsy FERNANDEZ[address] 2021-06-26 2021-06-26 Outpatient Shira [facility] [id number] Univers 15:45:00 15:45:00 [facility] 2021-06-26 2021-06-26 Outpatient Shira [facility] [id number] Univers 15:45:00 15:45:00 [facility] 2021-06-25 2021-06-25 Telephone [facility] 1.2.727.429 [id number] Univers 00:00:00 00:00:00 Bernice S [place] 350.1.13.10 i ty of [facility] [place] 4.2.7.2.[place] PROFESS[place] [phone] Mt betsy JEAN-BAPTISTE [address] [place] [address] 2021-05-23 2021-05-23 Telephone [facility] 1.2.793.976 [id number] Univers 00:00:00 00:00:00 Bernice S Health 350.1.13.10 it y of [place] 4.2.7.2.686 Blaze as Gregor?Blea [id number] Mt betsy paredes 198 [facility] 2021-05-22 2021-05-22 [facility] 1.2.840.114 [id number] Univers 13:00:00 23:59:00 Encounter Bernice S Health 350.1.13.10 ity of [place] 4.2.7.2.686 Blaze as Gregor?Blea [phone] Mt betsy paredes 809 [facility] 2021-05-22 2021-05-22 Outpatient R KEANU [facility] [id number] Univers 16:15:00 14:56:21 BERNICE dahlia [facility] 2021-05-22 2021-05-22 Outpatient R [facility] [id number] Univers 16:15:00 14:56:21 BERNICE hills [facility] 2021-05-22 2021-05-22 Office [facility] 1.2.840.114 [id number] Univers 12:47:56 14:56:21 Visit Bernice [facility] 350.1.13.10 it y of [place] 4.2.7.2.686 Blaze as Gregor?Blea [phone] Mt btesy paredes 198 [facility] 2021-05-22 2021-05-22 Orders Doctor TRANG 1.2.840.114 [id number] Univers 00:00:00 00:00:00 Only Unassigned, DIONICIO 350.1.13.10 ity of [place] [facility] 4.2.7.2.686 Blaze as [phone] [address] 2021-04-23 2021-04-23 Outpatient R ASTRID [facility] [id number] Univers 10:10:00 10:10:00 ANDREW barrientosdahlia [facility] 2021-04-23 2021-04-23 Imm/Inj Nurse, Adc Pob Immunization [facility] 1.2.840.114 [id number] Univers 10:00:06 10:00:17 Visit Andrew Resendiz 350.1.13 .10 ity [facility] 4.2.7.2.[place] [id number] Mt agbernard jean-baptiste 421 [facility] 2021-04-02 2021-04-02 Outpatient Shira RESENDIZ [facility] [id number] Univers 14:40:00 14:40:00 ANDREW hills [facility] 2021-04-02 2021-04-02 Imm/Inj Nurse, Adc Pob Immunization [facility] 1.2.840.114 [id number] Univers 13:41:25 13:41:44 Visit Andrew Resendiz 350.1.13 .10 [place] 4.2.7.2.686 Farnaz Bobo [id number] Mt dical nal 421 [facility] 2021-01-26 2021-01-26 Refrachid Iverson ANISHA 1.2.840.114 [id number] [place] 00:00:00 00:00:00 [place] 350.1.13.58 [facility] Lillie TORRES 9.2.7.2.686 SPECIALTY [id number] CLINIC 1 2021-01-26 2021-01-26 Refill Starr [facility] 1.2.840.114 [id number] 00:00:00 00:00:00 Lacey [place] 350.1.13.58 Lillie TORRES 9.2.7.2.686 SPECIALTY [id number] CLINIC 1 2020-12-18 2020-12-18 Office Petronang [place] 1.2.840.114 [id number] [place] 09:22:21 12:11:17 Visit YesyPAUL [facility].1.13.58 [facility] 9.2.7.2.686 [place] [address] [id number] 7 2020-12-18 2020-12-18 Office Timbo [place] 1.2.840.114 [id number] 09:22:21 12:11:17 Visit YesyPAUL 350.1.13.58 [facility] 9.2.7.2.686 [place] 7 [id number] 7 2020-09-06 2020-09-06 (TEL) STLMLC STLMLC [id number] Co mmon 00:00:00 00:00:00 [facility] 2020-07-20 2020-07-20 (TEL) STLMLC STLMLC [id number] Co mmon 00:00:00 00:00:00 [facility] 2020-07-12 2020-07-12 (TEL) STLMLC STLMLC [id number] Co mmon 00:00:00 00:00:00 [facility] 2020-06-21 2020-06-21 Outpatient STLMLC STLMLC [id number] Common 00:00:00 00:00:00 [facility] 2020-06-12 2020-06-12 [facility] [id number] Common 00:00:00 00:00:00 [facility] 2020-06-06 2020-06-06 [facility] [id number] Common 00:00:00 00:00:00 [facility] 2020-01-26 2020-01-26 Emergency [facility] 1.2.079.653 [id number] 20:05:19 21:04:00 Calin Meeks 350.1.13.10 [place] 4.2.7.2.686 [place] [phone] [facility] 2020-01-26 2020-01-26 Emergency [facility] 1.2.592.008 [id number] [facility] 20:05:19 21:04:00 Calin Meeks 350.1.13.10 i ty of [place] 4.2.7.2.686 [facility] [id number] [facility] [address] 2020-01-26 2020-01-26 Orders Doctor TRANG 1.2.840.114 [id number] 00:00:00 00:00:00 Only Unassigned, DIONICIO 350.1.13.10 [facility] 4.2.7.2.686 [id number] [facility] 2020-01-26 2020-01-26 Orders Doctor TRANG 1.2.840.114 [id number] [facility] 00:00:00 00:00:00 Only Unassigned, DIONICIO 350.1.13.10 ity of [place] [facility] 4.2.7.2.686 [facility] [id number] [facility] [address] 2020-01-20 2020-01-20 Outpatient [facility] 30 [id number] Common 08:00:00 08:00:00 [facility] 2020-01-20 2020-01-20 Orders Doctor TRANG Matthews.2.840.[id number] [place] [address] 00:00:00 00:00:00 Only Unassigned, DIONICIO 350.1.13.10 ity of [place] [facility] 4.2.7.2.686 Blaze as [phone] [facility] [address] 2020-01-20 2020-01-20 Orders Doctor TRANG 1.2.840.114 [id number] 00:00:00 00:00:00 Only Unassigned, DIONICIO 350.1.13.10 [place] [facility] 4.2.7.2.686 [id number] 009 Results Test Description Test Time Test Comments Results Result Comments Source Type and Screen - This is a pre-surgical type and scre en. ONCE 2022-09-23 13:38:39 KUNAL Test Item Value Reference Range Interpretation Comme nts ABO & RH (test code = 20) O Positive Pe rformed at [facility] Laboratory [facility] Blood [address] [place], [place] [id number] Free: [phone] A No. [id number] IAT (test code = 1185) Negative Perfo rmed at [facility] Laboratory [facility] Blood [address] [place], [place] [address]Toll Free: [phone] A No. [id number] [facility] This is a pre-surgical type and screen. ONCE [id number] 13:38:39 Test Item Value Reference Range Interpretation Comments ABO & RH (test code O Positive Performe d at [facility] = 20) Laboratory [facility] [place], [place] [address]Toll Free: [phone] A No. [id number] IAT (test code = Negative Performed a t [facility] 1185) Laboratory [facility] Blood Bank[address] [place] [id number] Free: [phone] A No. [id number] [facility] GLUCOSE (AUTOMATED)2022-09-23 12:53:02 Test Item Value Reference Range Interpretation Comments POCT GLU (test code = 0066204877) 105 mg/dL 70-110 Lab Interpretation (test code = Normal 26754-2) [facility] GLUCOSE (AUTOMATED)2022-09-23 12:53:02 Test Item Value Reference Range Interpretation Comments POCT GLU (test code = 3180134941) 105 mg/dL 70-110 Lab Interpretation (test code = Normal 17250-1) [facility] [id number] 17:00:16 Test Item Value Reference Range Interpretation Comments TROPONIN I (test code = 0.003 ng/mL <=0.034 [id number]) SRIRAM (test code = SRIRAM) Reference (Normal) Range (defined by the 99th percentile reference limit): <= 0.034 ng/mL Note: Cardiac troponin begins to rise 3-4 hours after the onset of ischemia. Repeat in 4-6 hours if the sample was drawn within 3-4 hours of the onset of the symptom and found normal. Diagnosis of myocardial injury is made with acute changes in cTn concentrations with at least one serial sample above the 99th percentile upper reference limit (URL), taken together with the patient's clinical presentation. Biotin has been reported to cause a negative bias, interpret results relative to patient's use of biotin. Lab Interpretation Normal (test code = 05598-6) [facility] GLUCOSE (AUTOMATED)2022-06-12 18:17:12 Test Item Value Reference Range Interpretation Comments POCT GLU (test code = 1128322503) 161 mg/dL 70-110 H Lab Interpretation (test code = Abnormal 25449-6) [facility] GLUCOSE (AUTOMATED)2022-06-12 08:00:25 Test Item Value Reference Range Interpretation Comments POCT GLU (test code = 7450272686) 122 mg/dL 70-110 H Lab Interpretation (test code = Abnormal 43240-3) [facility] GLUCOSE (AUTOMATED)2022-06-12 01:58:54 Test Item Value Reference Range Interpretation Comments POCT GLU (test code = 5681248928) 124 mg/dL 70-110 H Lab Interpretation (test code = Abnormal 03684-6) [facility] GLUCOSE (AUTOMATED)2022-06-11 22:59:46 Test Item Value Reference Range Interpretation Comments POCT GLU (test code = 1055334545) 115 mg/dL 70-110 H Lab Interpretation (test code = Abnormal 28145-9) [facility] GLUCOSE (AUTOMATED)2022-06-11 22:59:46 Test Item Value Reference Range Interpretation Comments POCT GLU (test code = 4033599879) 104 mg/dL 70-110 Lab Interpretation (test code = Normal 12121-9) [facility] GLUCOSE (AUTOMATED)2022-06-11 14:11:49 Test Item Value Reference Range Interpretation Comments POCT GLU (test code = 2473715448) 91 mg/dL 70-110 Lab Interpretation (test code = Normal 82724-3) [id number] 09:07:50 Test Item Value Reference Range Interpretation Comments IRON (test code = 6096030818) 39 ug/dL 50-160 L TIBC (test code = 2625263253) 346 ug/dL 250-410 % FE SAT (test code = 6553335750) 11 % 20-50 L Lab Interpretation (test code = Abnormal 47423-8) [facility] [id number] 08:27:06 Test Item Value Reference Range Interpretation Comments FERRITIN (test code = 7.5 ng/mL 11.0-264.0 L 5408989029) SRIRAM (test code = SRIRAM) Biotin has been reported to cause a negative bias, interpret results relative to patient's use of biotin. Lab Interpretation (test Abnormal code = 80684-5) [facility]AL [id number] 08:01:40 Test Item Value Reference Range Interpretation Comments NT-proBNP (test code 39 pg/mL See_Comment [Autom ated = 6673054156) message] The system which generated this result transmitted reference range : <=125. The reference range was not used to interpret this result as normal/abnormal . SRIRAM (test code = SRIRAM) Biotin has been reported to cause a negative bias, interpret results relative to patient's use of biotin. Lab Interpretation Normal (test code = 12589-0) [facility] GLUCOSE (AUTOMATED)2022-06-11 07:59:15 Test Item Value Reference Range Interpretation Comments POCT GLU (test code = 1939010129) 141 mg/dL 70-110 H Lab Interpretation (test code = Abnormal 48897-0) [facility]20[facility] 07:59:15 Test Item Value Reference Range Interpretation Comments MAGNESIUM (test code = 7167139060) 1.6 mg/dL 1.7-2.4 L Lab Interpretation (test code = Abnormal 35067-8) [facility]2022-11-08 07:59:10 Test Item Value Reference Range Interpretation Comments PHOSPHORUS (test code = 4629691469) 2.6 mg/dL 2.5-5.0 Lab Interpretation (test code = Normal 40345-8) [facility]UR[facility] [id number] 07:59:05 Test Item Value Reference Range Interpretation Comments URIC ACID (test code = 3486153325) 3.0 mg/dL 2.9-6.0 Lab Interpretation (test code = Normal 69911-5) [facility] (NA, K, CL, CO2, GLUCOSE, BUN, CREATININE, CA)2022-06-10 18:34:39 Test Item Value Reference Range Interpretation Comments NA (test code = 139 mmol/L 135-145 0547130316) K (test code = 4.2 mmol/L 3.5-5.0 4646063783) CL (test code = 105 mmol/L 98-108 7497069161) CO2 TOTAL (test code 28 mmol/L 23-31 = 8433404285) AGAP (test code = 2-16 9515733764) BUN (test code = 15 mg/dL 7-23 1284654582) GLUCOSE (test code = 106 mg/dL 70-110 7948248957) CREATININE (test code 0.75 mg/dL 0.50-1.04 = 8805014006) CALCIUM (test code = 9.0 mg/dL 8.6-10.6 5915975850) eGFR (test code = mL/min/1.73m2 8808556011) SRIRAM (test code = SRIRAM) Association of [...] or urine or abnormalities in imaging tests). [facility] (35294[facility] (ALB,T.PRO,BILI T,BU/BC,ALT,AST,ALK PHOS)2022-06-10 18:34:39 Test Item Value Reference Range Interpretation Comments TOTAL BILI (test code = 3039579966) 0.4 mg/dL 0.1-1.1 BILI UNCON (test code = 0282543226) 0.2 mg/dL 0.1-1.1 BILI CONJ (test code = 8458190455) 0.0 mg/dL 0.0-0.3 T PROTEIN (test code = 9629101805) 6.9 g/dL 6.3-8.2 ALBUMIN (test code = 7723025128) 4.0 g/dL 3.5-5.0 ALK PHOS (test code = 5213914073) 139 U/L 34-122 H ALTv (test code = 1742-6) 23 U/L 5-35 AST(SGOT) (test code = 0206665153) 21 U/L 13-40 Lab Interpretation (test code = Abnormal 24396-7) [facility]2022-[facility]-07 18:34:39 Test Item Value Reference Range Interpretation Comments LIPASE (test code = 9077860037) 108 U/L 0-220 Lab Interpretation (test code = Normal 36932-6) [facility] CenterCBC WITH [id number] 18:27:20 Test Item Value Reference Range Interpretation Comments WBC (test code = See_Comment [Automated message] 6690-2) The system [employer]! generated this result transmitted ref erence range: 4.30 - 1 1.10 10*3/?L. The re ference range was not u sed to interpret this result as normal/abnor mal. RBC (test code = See_Comment [Automated message] 789-8) The system [employer] generated this result transmitted ref erence range: [...] RDW-SD (test code 48.3 fL 39.0-49.9 = 78734-4) RDW-CV (test code 15.4 % 12.0-15.5 = 788-0) PLT (test code = See_Comment [Automated message] 777-3) The system [employer]! generated this result transmitted ref erence range: 166 - 35 8 10*3/?L. The re ference range was not u sed to interpret this result as normal/abnor mal. MPV (test code = 10.4 fL 9.5-12.9 90853-8) NRBC/100 WBC (test See_Comment [Automat ed message] code = 3001923342) The syste [employer] which generated this result transmitted ref erence range: 0.0 - 10 .0 /100 WBCs. The refer ence range was not u sed to interpret this result as normal/abnor mal. NRBC x10^3 (test See_Comment [Automated message] code = 8141051269) The syste m which generated this result transmitted ref erence range: 10*3/?L. The reference range was not used to interpr et this result as normal/abnormal . GRAN MAT (NEUT) % 62.1 % (test code = 770-8) IMM GRAN % (test 0.50 % code = 9705850716) LYMPH % (test code 29.1 % = 736-9) MONO % (test code 7.3 % = 5905-5) EOS % (test code = 0.6 % 713-8) BASO % (test code 0.4 % = 706-2) GRAN MAT 5.30 10*3/uL 1.88-7.09 x10^3(ANC) (test code = 3399595086) IMM GRAN x10^3 0.04 10*3/uL 0.00-0.06 (test code = 2263955753) LYMPH x10^3 (test 2.48 10*3/uL 1.32-3.29 code = 731-0) MONO x10^3 (test 0.62 10*3/uL 0.33-0.92 code = 742-7) EOS x10^3 (test 0.05 10*3/uL 0.03-0.39 code = 711-2) BASO x10^3 (test 0.03 10*3/uL 0.01-0.07 code = 704-7) [facility]"
[2022-12-12 19:11] LABS: Absolute Lymphocytes (CBC) 1.8 K/uL (0.7-4.9); Hematocrit 38.2 % (36.0-45.0); RBC Red Blood Cell Count 4.06 M/uL (3.86-4.86)
[2022-12-12 19:12] LABS: Protime INR 0.94
--- NOTE | 2022-12-12 19:28 | RAD REPORT ---
EXAM DESCRIPTION: RAD - Chest Single View - 12/12/2022 6:56 pm CLINICAL HISTORY: CHEST PAIN COMPARISON: Chest Pa And Lat (2 Views) dated 10/05/2019; Chest Single View dated 08/14/2019; Chest Sing le View dated 12/10/2017 FINDINGS: Lines: None. Lungs: No evidence of edema or pneumonia. Pleural: No significant pleural effusions or pneumothorax. Cardiac: The heart size is within normal limits. Mediastinum: Within normal limits. Bones: No acute fractures. Other: None IMPRESSION: No acute cardiopulmonary disease.
[2022-12-12 19:32] LABS: Albumin 3.3 g/dL (3.4-5.0); Bilirubin Direct 0.1 mg/dL (0-0.2); Bilirubin Indirect, Calculated 0.1 (0.2-0.8); Bilirubin Total 0.2 mg/dL (0.2-1.0); Magnesium 1.9 mg/dL (1.6-2.4); Potassium 3.3 mEq/L (3.5-5.1); Protein, Total 7.7 g/dL (6.4-8.2); Troponin High Sensitivity 3.7 pg/mL (<58.9)
--- NOTE | 2022-12-12 19:37 | RAD REPORT ---
EXAM DESCRIPTION: CT - Head Brain Wo Cont - 12/12/2022 7:20 pm CLINICAL HISTORY: SYNCOPE COMPARISON: Head Brain Wo Cont dated 05/16/2022 TECHNIQUE: All CT scans are performed using dose optimization technique as appropriate and may inclu de automated exposure control or mA/KV adjustment according to patient size. FINDINGS: No intracranial hemorrhage, hydrocephalus or extra-axial fluid collection.No areas of brai n edema or evidence of midline shift. The paranasal sinuses and mastoids are clear. The calvarium is intact. IMPRESSION: No acute intracranial abnormality.
[2022-12-12] MEDS ORDERED: LORazepam 2 MG/ML VIAL ONE (19:51)
[2022-12-12 20:21] LABS: Barbiturates NEGATIVE (NEGATIVE); Benzodiazepines NEGATIVE (NEGATIVE); Cocaine NEGATIVE (NEGATIVE); METHAMPHETAM NEGATIVE (NEGATIVE); Methadone NEGATIVE (NEGATIVE); Opiates NEGATIVE (NEGATIVE); Phencyclidine NEGATIVE (NEGATIVE); THC Cannibis NEGATIVE (NEGATIVE)
[2022-12-12] MEDS ORDERED: FAMOTIDINE 20 MG/2 ML VIAL IV ONE (22:02)
[2022-12-12] MEDS ORDERED: KETOROLAC 30 MG/ML INJ ONE (22:02)
[2022-12-12] MEDS ORDERED: NA CHLORIDE 0.9% 1,000 ML ONE (22:02)
[2022-12-12] MEDS ORDERED: MORPHINE 4 MG/ML SYR ONE (23:31)
[2022-12-12] MEDS ORDERED: ONDANSETRON 4 MG/2 ML VIAL ONE (23:36)
--- NOTE | 2022-12-12 23:39 | EDPHYS ---
Physician Documentation [facility] Name: Jazmín Perez Age: 52 yrs Sex: Female : 1970 Arrival Date: 12/12/2022 Time: 18:07 Bed 14 Private MD: ED Physician Yoshi Santiago HPI: 12/12 18:20 This 52 yrs old Female presents to ER via EMS with complaints of Chest Pain, cp Syncope. 18:20 Patient is a 52-year-old female with a history of spc-zudgsym-mamouyvlf diabetes and cp anxiety who was brought to the emergency department by EMS after reported syncopal episode. Patient began to complain of some chest pain in route and chest pain continues here in the emergency department. EMS reports that patient was [place] the [place] [employer] dealing with an issue with her son and reportedly became upset and while seated in her car passed out briefly. No seizure type activity was observed and patient has been responsive to sternal rub. Upon initial interview, patient answers questions appropriately and is responsive to light tapping of the shoulder. Historical: - Allergies: 18:00 Codeine; nj1 - PMHx: 18:00 allergies; Diabetes - NIDDM; Anxiety; nj1 - Immunization history:: Client reports receiving the 2nd dose of the Covid vaccine. - Social history:: Smoking status: Patient denies any tobacco usage or history of. ROS: 18:25 Constitutional: Negative for body aches, chills, fever, poor PO intake. cp 18:25 Cardiovascular: Positive for chest pain, Negative for edema, palpitations. cp 18:25 Respiratory: Negative for cough, shortness of breath, wheezing. 18:25 Abdomen/GI: Negative for abdominal pain, vomiting, diarrhea, constipation. 18:25 Neuro: Positive for syncope, Negative for altered mental status, dizziness, headache, numbness, weakness. 18:25 Eyes: Negative for injury, pain, redness, and discharge. cp 18:25 ENT: Negative for drainage from ear(s), ear pain, sore throat, difficulty swallowing, cp difficulty handling secretions. 18:25 Back: Negative for pain at rest, pain with movement. 18:25 All other systems are negative. Exam: 18:30 Constitutional: The patient appears in no acute distress, alert, awake, cp non-diaphoretic, non-toxic, well developed, well nourished, obese. 18:30 Head/Face: Normocephalic, atraumatic. cp 18:30 Eyes: Periorbital structures: appear normal, Pupils: equal, round, and reactive to cp light and accomodation, Extraocular movements: intact throughout, Conjunctiva: normal, no exudate, no injection, Sclera: no appreciated abnormality, Lids and lashes: appear normal, bilaterally. 18:30 ENT: External ear(s): are unremarkable, Nose: is normal, Mouth: Lips: moist, Oral mucosa: pink and intact, moist, Posterior pharynx: is normal, airway is patent, no erythema, no exudate. 18:30 Neck: ROM/movement: is normal, is supple, without pain, no range of motions limitations. 18:30 Chest/axilla: Inspection: normal. 18:30 Cardiovascular: Rate: normal, Rhythm: regular, Edema: is not appreciated, JVD: is not appreciated. 18:30 Respiratory: the patient does not display signs of respiratory distress, Respirations: normal, no use of accessory muscles, no retractions, labored breathing, is not present, Breath sounds: are clear throughout, no decreased breath sounds, no stridor, no wheezing. 18:30 Abdomen/GI: Inspection: abdomen appears normal, Palpation: abdomen is soft and non-tender, in all quadrants. 18:30 Back: pain, is absent, ROM is normal. 18:30 Neuro: Orientation: to person, situation, Mentation: able to follow commands, slow to respond, Cerebellar function: is grossly normal, Motor: moves all fours, strength is normal, Sensation: is normal. 18:39 ECG was reviewed by the Attending Physician. cp Vital Signs: 18:00 BP 133 / 71; Pulse 95; Resp 18; Temp 98.9; Pulse Ox 100% on R/A; Weight 98.88 kg; nj1 Height 5 ft. 2 in. ; Pain 7/10; 18:42 BP 121 / 62; Pulse 87; Resp 22; Pulse Ox 100% on R/A; Pain 7/10; nj1 19:45 BP 132 / 65; Pulse 94; Resp 21; Pulse Ox 100% on R/A; nj1 20:30 BP 128 / 69; Pulse 99; Resp 21; Pulse Ox 97% on R/A; nj1 21:30 BP 120 / 72; Pulse 89; Resp 20; Pulse Ox 100% on R/A; nj1 22:25 Pulse 88; Resp 16; Pulse Ox 98% on R/A; kd3 23:33 BP 133 / 88; Pulse 95; Resp 19; Pulse Ox 100% on R/A; kd3 05 01:47 BP 141 / 90; Pulse 80; Resp 18; Pulse Ox 98% on R/A; 3 12/12 18:00 Body Mass Index 39.87 (98.88 kg, 157.48 cm) co1 12/12 18:00 Pain Scale: Adult nj1 18:42 Pain Scale: Adult nj1 MDM: 12/12 18:16 Patient medically screened. cp 19:00 Differential diagnosis: abnormal EKG, acute myocardial infarction, anxiety, cp cholecystitis, Cholelithiasis pancreatitis, pleurisy, pneumonia, pneumothorax, pulmonary embolus, stable angina, thoracic aortic disection, unstable angina. 23:50 The patient was given aspirin in the Emergency Department. cp 23:50 Data reviewed: vital signs, nurses notes, lab test result(s), EKG, radiologic studies, cp plain films. Consideration of Admission/Observation Patient was admitted/placed on observation. Management of patient was discussed with the following: Hospitalist: Torsten Barajas, [employer] will admit after discussing patient reports chest pain. Care significantly affected by the following chronic conditions: Diabetes, Obesity. 12/12 18:16 Order name: Basic Metabolic Panel; Complete Time: 20:14 cp 12/12 20:14 Interpretation: Normal except: K 3.3; CL 110; GFR 76. cp 12/12 18:16 Order name: CBC with Diff; Complete Time: 20:14 cp 12/12 20:14 Interpretation: Reviewed. 12/12 18:16 Order name: LFT's; Complete Time: 20:14 12/12 20:14 Interpretation: Normal except: AST 10; ALK 132; IBILI, CALC 0.1; ALB 3.3; GLOB 4.4; A/G cp 0.8. 12/12 18:16 Order name: Magnesium; Complete Time: 20:14 cp 12/12 18:16 Order name: NT PRO-BNP; Complete Time: 20:14 cp 12/12 18:16 Order name: PT-INR; Complete Time: 20:14 cp 12/12 18:16 Order name: Troponin HS; Complete Time: 20:14 cp 12/12 20:14 Interpretation: Reviewed. 12/12 18:16 Order name: UDS; Complete Time: 23:36 cp 12/12 21:55 Order name: Troponin High Sensitivity: redraw at 2215; Complete Time: 00:27 cp 12/12 23:32 Order name: Urinalysis W/Microscopic; Complete Time: 00:27 12/13 01:01 Interpretation: Normal except: Urine SG > 1.030; UGLUC 4+ (Over); UKET TRACE; UUROB 1+; cp UESTR 25; UBACT >50; MUCUS 3+. 12/12 23:37 Order name: D-Dimer; Complete Time: 00:27 cp 12/13 01:02 Interpretation: Abnormal: D-DIMER 1056. 12/12 18:16 Order name: XRAY Chest (1 view); Complete Time: 20:14 cp 12/12 18:16 Order name: CT Head Brain wo Cont; Complete Time: 20:14 12/13 00:17 Order name: Chest For PE Angio CT la1 12/12 18:16 Order name: EKG; Complete Time: 18:17 cp 12/12 18:16 Order name: Cardiac monitoring; Complete Time: 18:40 cp 12/12 18:16 Order name: EKG - Nurse/Tech; Complete Time: 18:40 cp 12/12 18:16 Order name: IV Saline Lock; Complete Time: 19:54 cp 12/12 18:16 Order name: Labs collected and sent; Complete Time: 19:00 12/12 18:16 Order name: O2 Per Protocol; Complete Time: 18:40 12/12 18:16 Order name: O2 Sat Monitoring; Complete Time: 18:40 cp EC:39 Rate is 86 beats/min. Rhythm is regular. AR interval is normal. QRS interval is normal. cp QT interval is normal. T waves are Inverted in lead aVR. Interpreted by me. Reviewed by me. Administered Medications: 19:48 Drug: Ativan IVP 1 mg Route: IVP; Site: right forearm; nj1 20:31 Follow up: Response: No adverse reaction nj1 22:10 Drug: Ketorolac IVP 15 mg Route: IVP; Site: right forearm; nj1 12/13 01:49 Follow up: Response: No adverse reaction; Pain is decreased 3 12/12 22:10 Drug: NS 0.9% IV 1000 ml Route: IV; Rate: 1 bolus; Site: right forearm; co12/13 01:48 Follow up: IV Status: Completed infusion 3 12/12 22:10 Drug: Famotidine IVP 20 mg Route: IVP; Site: right forearm; co12/13 01:49 Follow up: Response: No adverse reaction 3 12/12 23:28 Drug: morphine IVP or IV 4 mg Route: IVP; Infused Over: 4 mins; Site: right forearm; 3 12/13 01:48 Follow up: Response: No adverse reaction; Pain is decreased 12/12 23:33 Drug: Ondansetron IVP 4 mg Route: IVP; Site: left forearm; 12/13 01:49 Follow up: Response: No adverse reaction 12/12 23:53 Drug: Aspirin PO Chewable Tablet 324 mg Route: PO; 12/13 01:48 Follow up: Response: No adverse reaction kd3 01:30 Drug: Rocephin IV 1 grams Route: IV; Rate: calculated rate; Site: right antecubital; kd3 01:48 Follow up: IV Status: Completed infusion kd3 01:31 Drug: Ativan IVP 0.5 mg Route: IVP; Site: right antecubital; 3 01:48 Follow up: Response: No adverse reaction 3 Disposition: 08:58 Co-signature as Attending Physician, Yoshi Santiago MD I reviewed the patient's care rt provided by the Advanced Practice Provider and agree with the diagnosis and treatment plan. Disposition Summary: 12/12/22 23:38 Hospitalization Ordered Hospitalization Status: Observation cp Provider: Leo Em cp Location: Telemetry/MedSurg (observation) cp Condition: Stable cp Problem: new cp Symptoms: have improved cp Bed/Room Type: Standard cp Room Assignment: 401(12/13/22 00:08) cg Diagnosis - Chest pain, unspecified cp - Syncope cp Forms: - Medication Reconciliation Form cp - SBAR form cp Signatures: Dispatcher [employer] EDMS Torsten Barajas FNP-C BAKER-Cla1 Onel [employer] PA PA cp Anum Ray RN RN cg Mariela Ibrahim RN RN kd3 Yoshi Santiago MD MD rt Rachel Qureshi RN RN nj1 Corrections: (The following items were deleted from the chart) 12/12 19:53 19:52 This 52 yrs old Female presents to ER via EMS with complaints of Chest cp Pain, Syncope. cp 12/13 00:08 12/12 23:38 cp cg
--- NOTE | 2022-12-12 23:39 | ER ---
Nurse's Notes [facility] Name: Jazmín Perez Age: 52 yrs Sex: Female : 1970 Arrival Date: 12/12/2022 Time: 18:07 Bed 14 Private MD: Diagnosis: Chest pain, unspecified;Syncope Presentation: 12/12 18:00 Chief complaint: EMS states: Son had trouble with police, patient pass out while nj1 sitting in vehicle. [place] chest pain while on route to hospital. On/off consciousness x2. Coronavirus screen: Vaccine status: Patient reports receiving the 2nd dose of the covid vaccine. Ebola Screen: No symptoms or risks identified at this time. Initial Sepsis Screen: Does the patient meet any 2 criteria? No. Patient's initial sepsis screen is negative. Does the patient have a suspected source of infection? No. Patient's initial sepsis screen is negative. 18:00 Method Of Arrival: EMS: [facility] 18:00 Risk Assessment: Do you want to hurt yourself or someone else? Patient reports no [facility] desire to harm self or others. Onset of symptoms was December 12, 2022. 18:00 Acuity: LOU 3 nj1 Historical: - Allergies: 18:00 Codeine; nj1 - PMHx: 18:00 allergies; Diabetes - NIDDM; Anxiety; nj1 - Immunization history:: Client reports receiving the 2nd dose of the Covid vaccine. - Social history:: Smoking status: Patient denies any tobacco usage or history of. Screenin:00 [facility] ED Fall Risk Assessment (Adult) History of falling in the last 3 months, nj1 including since admission No falls in past 3 months (0 pts) Confusion or Disorientation Yes (5 pts) Intoxicated or Sedated No (0 pts) Impaired Gait No (0 pts) Mobility Assist Device Used No (0 pt) Altered Elimination No (0 pt) Score/Fall Risk Level 3 or more points = High Risk Oriented to surroundings, Maintained a safe environment, Assessed \T\ reinforced patient's understanding of fall precautions, Hourly rounding (assess needs \T\ fall precautionary measures) done, Remained w/in arm's length of patient and in sight while toileting, Offered frequent toileting (1:1 observation), Remained with patient while ambulating. 18:00 Abuse screen: Denies threats or abuse. Denies injuries from another. Nutritional nj1 screening: No deficits noted. Tuberculosis screening: No symptoms or risk factors identified. Assessment: 18:00 General: Appears in no apparent distress. uncomfortable, Behavior is calm, cooperative, nj1 appropriate for age, anxious, crying. Pain: Complains of pain in chest Pain currently is 7 out of 10 on a pain scale. 18:00 Neuro: Level of Consciousness is awake, alert, obeys commands, Oriented to person, nj1 time, situation. Cardiovascular: Patient's skin is warm and dry. Chest pain. Respiratory: Airway is patent Respiratory effort is even, unlabored. 19:00 Reassessment: Patient appears in no apparent distress at this time. Patient and/or nj1 family updated on plan of care and expected duration. Pain level reassessed. Patient is alert, oriented x 3, equal unlabored respirations, skin warm/dry/pink. 20:00 Reassessment: Patient appears in no apparent distress at this time. Patient and/or nj1 family updated on plan of care and expected duration. Pain level reassessed. Patient is alert, oriented x 3, equal unlabored respirations, skin warm/dry/pink. 21:00 Reassessment: Patient appears in no apparent distress at this time. Patient and/or nj1 family updated on plan of care and expected duration. Pain level reassessed. Patient is alert, oriented x 3, equal unlabored respirations, skin warm/dry/pink. 22:00 Reassessment: Patient appears in no apparent distress at this time. Patient and/or nj1 family updated on plan of care and expected duration. Pain level reassessed. Patient is alert, oriented x 3, equal unlabored respirations, skin warm/dry/pink. 22:55 General: Appears uncomfortable, Behavior is cooperative, anxious. Pain: Complains of kd3 pain in chest. Neuro: Level of Consciousness is awake, alert, obeys commands, Oriented to person, place, time, situation. Vital Signs: 18:00 BP 133 / 71; Pulse 95; Resp 18; Temp 98.9; Pulse Ox 100% on R/A; Weight 98.88 kg; nj1 Height 5 ft. 2 in. ; Pain 7/10; 18:42 BP 121 / 62; Pulse 87; Resp 22; Pulse Ox 100% on R/A; Pain 7/10; nj1 19:45 BP 132 / 65; Pulse 94; Resp 21; Pulse Ox 100% on R/A; nj1 20:30 BP 128 / 69; Pulse 99; Resp 21; Pulse Ox 97% on R/A; nj1 21:30 BP 120 / 72; Pulse 89; Resp 20; Pulse Ox 100% on R/A; nj1 22:25 Pulse 88; Resp 16; Pulse Ox 98% on R/A; kd3 23:33 BP 133 / 88; Pulse 95; Resp 19; Pulse Ox 100% on R/A; kd3 12/13 01:47 BP 141 / 90; Pulse 80; Resp 18; Pulse Ox 98% on R/A; kd3 12/12 18:00 Body Mass Index 39.87 (98.88 kg, 157.48 cm) [facility] 12/12 18:00 Pain Scale: Adult [facility] 18:42 Pain Scale: Adult [facility] ED Course: 12/12 18:00 Patient has correct armband on for positive identification. Bed in low position. Call [facility] light in reach. Side rails up X 1. 18:12 Patient arrived in ED. 1 18:14 Onel Gibbs PA is PHCP. cp 18:14 Yoshi Santiago MD is Attending Physician. cp 18:39 Rachel Qureshi, BERNABE is Primary Nurse. nj1 18:58 XRAY Chest (1 view) In Process Unspecified. EDMS 19:16 Triage completed. nj1 19:19 Arm band placed on. nj1 19:21 CT Head Brain wo Cont In Process Unspecified. EDMS 19:30 Missed attempt(s): 22 gauge in right antecubital area. Bleeding controlled, band aid iw applied, catheter tip intact. 19:39 Inserted saline lock: 24 gauge in right forearm, using aseptic technique. iw 23:04 Troponin High Sensitivity: redraw at 2215 Sent. kd3 23:37 Leo Em MD is Hospitalizing Provider. cp 23:53 D-Dimer Sent. kd3 23:53 Urinalysis W/Microscopic Sent. kd3 12/13 00:54 Inserted saline lock: 20 gauge in right antecubital area, using aseptic technique. kd3 Blood collected. 01:46 No provider procedures requiring assistance completed. Patient admitted, IV remains in kd3 place. Administered Medications: 05/11 19:48 Drug: Ativan IVP 1 mg Route: IVP; Site: right forearm; pr1 20:31 Follow up: Response: No adverse reaction [facility] 22:10 Drug: Ketorolac IVP 15 mg Route: IVP; Site: right forearm; [facility] 12/13 01:49 Follow up: Response: No adverse reaction; Pain is decreased [facility] 12/12 22:10 Drug: NS 0.9% IV 1000 ml Route: IV; Rate: 1 bolus; Site: right forearm; pr12/13 01:48 Follow up: IV Status: Completed infusion 3 12/12 22:10 Drug: Famotidine IVP 20 mg Route: IVP; Site: right forearm; pr12/13 01:49 Follow up: Response: No adverse reaction [facility] 12/12 23:28 Drug: morphine IVP or IV 4 mg Route: IVP; Infused Over: 4 mins; Site: right forearm; 3 12/13 01:48 Follow up: Response: No adverse reaction; Pain is decreased [facility] 12/12 23:33 Drug: Ondansetron IVP 4 mg Route: IVP; Site: left forearm; 3 12/13 01:49 Follow up: Response: No adverse reaction [facility] 12/12 23:53 Drug: Aspirin PO Chewable Tablet 324 mg Route: PO; 12/13 01:48 Follow up: Response: No adverse reaction 3 01:30 Drug: Rocephin IV 1 grams Route: IV; Rate: calculated rate; Site: right antecubital; 3 01:48 Follow up: IV Status: Completed infusion 3 01:31 Drug: Ativan IVP 0.5 mg Route: IVP; Site: right antecubital; 3 01:48 Follow up: Response: No adverse reaction 3 Medication: 12/12 22:25 VIS not applicable for this client. 3 Outcome: 23:38 Decision to Hospitalize by Provider. 12/13 01:47 Admitted to Med/surg kd3 Condition: stable Discharge instructions given to patient, family, Instructed on the need for admit, Demonstrated understanding of instructions. 01:50 Patient left the ED. kd3 Signatures: Dispatcher [employer] EDMarlen Stevens RN RN Onel Lowe PA PA cp Lewis, Lynsay, RN RN ll1 Mariela Ibrahim RN RN kd3 Rachel Qureshi RN RN nj1 Corrections: (The following items were deleted from the chart) 12/12 22:19 18:00 [facility] ED Fall Risk Assessment (Adult) History of falling in the last 3 months, nj1 including since admission No falls in past 3 months (0 pts) nj1
--- NOTE | 2022-12-12 23:51 | P.HP ---
Certification for Inpatient Patient admitted to: Observation With expected LOS: <2 Midnights Patient will require the following post-hospital care: None Practitioner: I am a practitioner with admitting privileges, knowledge of patient current condition, hospital course, and medical plan of care. Services: Services provided to patient in accordance with Admission requirements found in Title 42 Section 412.3 of the Code of Federal Regulations Patient History Date of Service: 12/12/22 Reason for admission: Chest pain History of Present Illness: 52-year-old female with history of wyw-efsduei-ewyopwphx diabetes, anxiety presents emergency department chief complaint of chest pain, shortness of breath, syncope. She reports she was given some bad news regarding her oldest son today which caused her to experience chest pain, she also had a syncopal event which she describes after hyperventilating. She was evaluated in the emergency department initial high-sensitivity opponent negative EKG without STEMI criteria chest x-ray unremarkable, initial plan was for repeat troponin and discharge but patient continued to experience significant chest pain described as pressure/squeezing with associated shortness of breath. ED provider wishes to admit under observation for ACS rule out. Allergies codeine Allergy (Unverified 02/24/18 10:26) Unknown - Past Medical/Surgical History -: Diabetes mellitus type 2 -: anxiety -: none Psychosocial/ Personal History: Patient lives at home with her , family - Family History Family History: Reviewed- Non-Contributory - Social History Smoking Status: Never smoker Alcohol use: No CD- Drugs: No Caffeine use: Yes Place of Residence: Home Review of Systems 10-point ROS is otherwise unremarkable Respiratory: Shortness of Breath Cardiovascular: Chest Pain Physical Examination - Physical Exam General: Alert, In no apparent distress, Obese HEENT: Atraumatic, PERRLA, Mucous membr. moist/pink, EOMI, Sclerae nonicteric Neck: Supple, 2+ carotid pulse no bruit, No LAD, Without JVD or thyroid a bnormality Respiratory: Clear to auscultation bilaterally, Normal air movement Cardiovascular: No edema, Regular rate/rhythm, Normal S1 S2 Capillary refill: <2 Seconds Gastrointestinal: Normal bowel sounds, No tenderness Musculoskeletal: No tenderness Integumentary: No rashes Neurological: Normal speech, Normal strength at 5/5 x4 extr, Normal tone, Normal affect - Studies Laboratory Data (last 24 hrs) 12/12/22 18:50: PT 10.3, INR 0.94 12/12/22 18:50: WBC 8.30, Hgb 12.3, Hct 38.2, Plt Count 276 12/12/22 18:50: Sodium 140, Potassium 3.3 L, BUN 16, Creatinine 0.90, Glucose 101, Magnesium 1.9, Total Bilirubin 0.2, AST 10 L, ALT 20, Alkaline Phosphatase 132 H Assessment and Plan - Plan Assessment: Chest pain rule out ACS Diabetes mellitus type [id number]-ohgwhyddr Plan: Chest pain rule out ACS Troponins, monitor on telemetry, cardiology consult. Suspect this is related to anxiety/panic attack, patient describes hyperventilation/syncope as well. Will obtain D-dimer to rule out pulmonary embolism given ongoing chest pain, subjective shortness of breath, syncope. Given aspirin in ED. Diabetes mellitus type [id number]-phvmtbooi ACHS Accu-Chek, sliding scale insulin. A1c in the morning. DVT PPX: Lovenox Code status: full Discharge Plan: Home Plan to discharge in: 24 Hours - Advance Directives Does patient have a Living Will: No Does patient have a Durable POA for Healthcare: No - Code Status/Comfort Care Code Status Assessed: Yes (Full code) Critical Care: No Time Spent Managing Pts Care (In Minutes): 55
[2022-12-12] MEDS ORDERED: ASPIRIN 81 MG CHEWABLE TABLET ONE (23:55)
[2022-12-13 00:25] LABS: Specific Gravity > 1.030 (1.005-1.030); Urine Bacteria >50 /HPF (<20); Urine Bilirubin NEGATIVE (Negative); Urine Blood Negative (Negative); Urine Clarity Clear (Clear); Urine Color Yellow (Yellow); Urine Glucose 4+ (Over) (Negative); Urine Mucus 3+ /HPF (None Seen); Urine Protein NEGATIVE (Negative); Urine RBC None Seen /HPF (None Seen); Urine Urobilinogen 1+ (Normal); Urine pH 5.5 (5.0-7.0)
[2022-12-13] MEDS ORDERED: LORazepam 2 MG/ML VIAL ONE (01:30)
[2022-12-13] MEDS ORDERED: CEFTRIAXONE 1000 MG/VIAL ONE (01:30)
[2022-12-13] MEDS ORDERED: ONDANSETRON 4 MG/2 ML VIAL IV PRN (01:49)
[2022-12-13 05:20] LABS: Absolute Lymphocytes (CBC) 1.7 K/uL (0.7-4.9); Hematocrit 33.6 % (36.0-45.0); Lymphocytes % 26.5 % (15.3-44.8); MCV 94.3 fL (80-100); MPV 7.9 fL (7.6-11.3); RBC Red Blood Cell Count 3.56 M/uL (3.86-4.86)
--- NOTE | 2022-12-13 05:33 | EKG ---
Test Date: 2022-12-12 Test Time: 23:03:01 Librarian Assistant: BITA MEASUREMENT RESULTS: Intervals: Rate: 84 IL: 146 QRSD: 96 QT: 404 QTc: 477 [place]: P: 70 IL: 146 QRS: 73 T: 88 INTERPRETIVE STATEMENTS: Normal sinus rhythm Nonspecific T wave abnormality Prolonged QT Abnormal ECG Compared to ECG 12/12/2022 18:32:15 Prolonged QT interval now present T-wave abnormality still present Electronically Signed On 12-13-22 05:32:47 CDT by Aime Ramos
[2022-12-13 05:34] LABS: Potassium 3.7 mEq/L (3.5-5.1)
--- NOTE | 2022-12-13 05:34 | EKG ---
Test Date: 2022-12-12 Test Time: 18:32:15 Rag Production Worker: RADHA MEASUREMENT RESULTS: Intervals: Rate: 86 ND: 142 QRSD: 100 QT: 374 QTc: 447 [place]: P: 63 ND: 142 QRS: 73 T: 58 INTERPRETIVE STATEMENTS: Normal sinus rhythm Nonspecific T wave abnormality Abnormal ECG Compared to ECG 10/06/2019 02:16:46 T-wave abnormality now present ST (T wave) deviation no longer present Prolonged QT interval no longer present Electronically Signed On 12-13-22 05:32:56 CDT by Aime Ramos
--- NOTE | 2022-12-13 07:18 | P.PN ---
Date of Service: 12/13/22 Subjective: feels chest pain/tightness remains about the same, started yesterday States is hurts to take deep breaths, +burning/tightness with tenderness of left anterior chest anxious; crying at times, worried about her son in [place] ROS: 10 point ROS as noted above, otherwise negative Physical Exam: GEN: Alert, oriented, NAD HEENT: Normal conjunctiva, sclera anicteric CV: Regular rate and rhythm, no edema Pulm: Nonlabored respirations on room air ABD: Soft, nontender, nondistended MSK: tender to palpation in left anterior chest Neuro: Normal speech,anxious vitals reviewed Problem List: Chest pain syncope, secondary to hyperventilation anxiety DM2 [id number] Chest pain Suspect this is related to anxiety/panic attack, patient describes hyperventilation/syncope as well. Given aspirin in ED. stress test today with mild area of mild stress-induced ischemia cardiology plans for outpatient eval patient was to be discharged home today, however she stated she was dizzy and chest pain returned when dc paperwork was being reviewed did receive dose of klonopin before CT head 12/12 - negative CXR 12/12 - negative CTA chest 12/13 - negative echo pending EKG normal D-dimer elevated Trend troponins monitor on telemetry cardiology consulted Stress test 12/13 - mild area of mild stress-induced ischemia DM2 wfc-[id number]-ggjoeqemz continue sliding scale insulin A1c in the morning VTE: Lovenox Code: Full Dispo: Home within 24hrs
[2022-12-13] MEDS ORDERED: REGADENOSON 0.4 MG/5 ML SYR IV ONE (07:28)
[2022-12-13] MEDS: INSULIN -REGULAR HUMAN 50 UNIT/0.5 ML ML SQ SCH ×4 (07:30→20:27)
[2022-12-13] MEDS: MORPHINE 2 MG/ML SYR IV PRN ×2 (08:06→14:13)
[2022-12-13] MEDS ORDERED: ASPIRIN EC 81 MG TAB PO SCH (09:00)
[2022-12-13] MEDS ORDERED: ENOXAPARIN 40 MG/0.4 ML SQ SCH (09:00)
[2022-12-13] MEDS ORDERED: POTASSIUM CL SA 10 MEQ TAB PO ONE (09:00)
--- NOTE | 2022-12-13 09:51 | P.DS ---
Admission Date: 12/12/22 Discharge Date: 12/14/22 Disposition: ROUTINE DISCHARGE Discharge Condition: FAIR Reason for Admission: Chest pain, syncope Consultations: Cardiology - Dr. Ramos Brief History of Present Illness: 52yo F, PMH: xos-memyxfp-cbfexbmcc diabetes, anxiety Patient presents emergency department chief complaint of chest pain, shortness of breath, syncope. She reports she was given some bad news regarding her oldest son today which caused her to experience chest pain, she also had a syncopal event which she describes after hyperventilating. She was evaluated in the emergency department initial high-sensitivity opponent negative EKG without STEMI criteria chest x-ray unremarkable, initial plan was for repeat troponin and discharge but patient continued to experience significant chest pain described as pressure/squeezing with associated shortness of breath. ED provider wishes to admit under observation for ACS rule out. Hospital Course: Problem List: Chest pain syncope, secondary to hyperventilation anxiety DM2 [id number]-acocoynlp Patient presented with chest pain, shortness of breath, syncope. Troponins were negative x3, EKG normal, Chest xray was obtained and unremarkable. CTA chest negative for any acute findings. D-dimer was noted to be elevated, no evidence of DVT or PE. Syncope suspected to be secondary to hyperventilation, as results of stress induced anxiety. Cardiology was consulted. Stress test noted what appears to be mild area of mild stress-induced ischemia. Dr. Ramos recommended discharge home and will arrange for further evaluation as outpatient next week. Patient was noted to have some component of her chest pain to be musculoskeletal in etiology, tender to palpation. Prescribed aspirin 81mg daily, atorvastatin 20mg daily Follow-up PCP within 1 week Cardiology within ~1 week, for further testing Physical Exam: GEN: Alert, oriented, NAD HEENT: Normal conjunctiva, sclera anicteric CV: Regular rate and rhythm, no edema Pulm: Nonlabored respirations on room air ABD: Soft, nontender, nondistended MSK: tender to palpation of left anterior chest Neuro: anxious, no focal deficit Vital Signs/Physical Exam: Temp Pulse Resp BP Pulse Ox 97.1 F 105 H 18 122/71 96 12/13/22 08:00 12/13/22 08:00 12/13/22 08:06 12/13/22 08:00 12/13/22 08:06 Laboratory Data at Discharge: WBC 6.50 thou/uL (4.3-10.9) 12/13/22 05:01 Hgb 10.9 g/dL (12.0-15.0) L D 12/13/22 05:01 Hct 33.6 % (36.0-45.0) L 12/13/22 05:01 Plt Count 226 thou/uL (152-406) 12/13/22 05:01 PT 10.3 SECONDS (9.5-12.5) 12/12/22 18:50 INR 0.94 12/12/22 18:50 Sodium 139 mEq/L (136-145) 12/13/22 05:01 Potassium 3.7 mEq/L (3.5-5.1) 12/13/22 05:01 BUN 12 mg/dL (7-18) 12/13/22 05:01 Creatinine 0.69 mg/dL (0.55-1.02) 12/13/22 05:01 Glucose 101 mg/dL (74-106) 12/13/22 05:01 Magnesium 1.9 mg/dL (1.6-2.4) 12/12/22 18:50 Total Bilirubin 0.2 mg/dL (0.2-1.0) 12/12/22 18:50 AST 10 U/L (15-37) L 12/12/22 18:50 ALT 20 U/L (13-56) 12/12/22 18:50 Alkaline Phosphatase 132 U/L (45-117) H 12/12/22 18:50 Triglycerides 79 mg/dL (<150) 12/13/22 05:01 Cholesterol 137 mg/dL (<200) 12/13/22 05:01 HDL Cholesterol 47 mg/dL (40-60) 12/13/22 05:01 Cholesterol/HDL Ratio 2.91 12/13/22 05:01 Home Medications: Aspirin [Aspirin EC 81 MG] 81 mg PO DAILY 30 Days #30 tab 12/13/22 Atorvastatin Calcium [Lipitor] 40 mg PO BEDTIME 30 Days #30 tab 12/13/22 Celecoxib [Celebrex] 200 mg PO BID 12/13/22 Cyclobenzaprine [Flexeril*] 10 mg PO BID 12/13/22 Duloxetine HCl [Cymbalta] 30 mg PO TID 12/13/22 Fesoterodine Fumarate [Fesoterodine Fumarate ER] 4 mg PO DAILY 12/13/22 Gabapentin 400 mg PO BID 12/13/22 Semaglutide [Ozempic] 1 mg SQ Q7D 12/13/22 clonazePAM [Klonopin] 0.5 tab PO Q12H PRN 5 Days #5 tab 12/13/22 New Medications: Aspirin [Aspirin EC 81 MG] 81 mg PO DAILY 30 Days #30 tab clonazePAM [Klonopin] 0.5 tab PO Q12H PRN 5 Days #5 tab PRN Reason: Anxiety Atorvastatin Calcium [Lipitor] 40 mg PO BEDTIME 30 Days #30 tab Physician Discharge Instructions: Patient presented with chest pain, shortness of breath, syncope. Troponins were negative x3, EKG normal, Chest xray was obtained and unremarkable. CTA chest negative for any acute findings. D-dimer was noted to be elevated, no evidence of DVT or PE. Syncope suspected to be secondary to hyperventilation, as results of stress induced anxiety. Cardiology was consulted. Stress test noted what appears to be mild area of mild stress-induced ischemia. Dr. Ramos recommended discharge home and will arrange for further evaluation as outpatient next week. Patient was noted to have some component of her chest pain to be musculoskeletal in etiology, tender to palpation. Prescribed aspirin 81mg daily, atorvastatin 20mg daily Follow-up PCP within 1 week Cardiology within ~1 week Followup: Aime Ramos MD [ACTIVE - CAN ADMIT] - NONE,NONE [Primary Care Provider] - Time spent managing pt's care (in minutes): 45
[2022-12-13] MEDS: NITROGLYCERIN 0.4 MG/TAB SL PRN ×2 (10:47→11:02)
--- NOTE | 2022-12-13 12:00 | CON ---
Date of Consultation: 12/13/2022 Reason For Consultation: Admitted on 12/12/[address] mE for chest pain and syncope. History Of Present Illness: Ms. Perez is a 52-year-old, was under significant amount of stress and has a history of diabetes and anxiety. She takes Cymbalta and Ozempic at home. Came in with episod e of atypical chest pain, hyperventilation, syncope. No nausea, vomiting, diaphoresis, PND, orthopne a, pedal edema, or palpitations. Denies any fever or chills. All her symptoms occurred following a stressful situation. Allergies: INCLUDE CODEINE. Review of Systems: Negative. Social History: Negative. Family History: Negative. Physical Examination: Vital Signs: Stable. Afebrile. HEENT: Negative. Neck: Supple with no bruit. Chest: Clear. Cardiac: Normal. Abdomen: Benign. Extremities: Revealed no clubbing, cyanosis, or edema. Diagnostic Data: D-dimer is 1056, potassium 3.3. EKG, chest x-ray unremarkable. Impression And Plan: Atypical chest pain with syncope. Echocardiogram and Lexiscan are pending. Co ntinue present regimen. I do not think her chest pain is cardiac. I think her syncope is secondary to hyperventilation. We will see what the echo and Lexiscan shows before making final deci sions. SANJUANITA/JULIO CÉSAR Voice ID: [id number] Report ID: [id number]
--- NOTE | 2022-12-13 14:06 | RAD REPORT ---
EXAM DESCRIPTION: NM - Rest Stress Cardiac Imaging - 12/13/2022 1:59 pm CLINICAL HISTORY: CP Chest pain. COMPARISON: No comparisons TECHNIQUE: The patient was administered approximately 10mCi of Tc 99m Sestamibi prior to resting SPE CT imaging of the heart. The patient was then administered approximately 30 mCi of Tc 99m Sestamibi f ollowing exercise or pharmacologic stress. Multiplanar SPECT images were reviewed. FINDINGS: There is a mild sized area of mild stress-induced ischemia LV apex. No fixed defect is see n to suggest hibernating myocardium or scarred myocardium. The end diastolic volume is 59 ml, the end systolic volume is 19 ml, and the ejection fraction is 69 %. IMPRESSION: Small area of mild stress-induced ischemia is seen LV apex.
[2022-12-13] MEDS: ACETAMINOPHEN 500 MG TAB PO PRN ×3 (14:17→21:53)
[2022-12-13 14:42] VITALS: O2SAT 98
[2022-12-13] MEDS ORDERED: clonazePAM 1 MG TAB PO ONE (16:00)
[2022-12-13] MEDS ORDERED: MELATONIN 5 MG TABLET PO PRN (20:39)
[2022-12-13] MEDS ORDERED: ATORVASTATIN 40 MG TAB PO SCH (21:00)
--- NOTE | 2022-12-13 22:22 | P.PN ---
Date of Service: 12/13/22 I was called by nursing staff notified that patient had a fall which was unwitnessed by staff, I went to speak with patient she reports that she got up and walked to the bathroom began feeling dizzy in the bathroom and fell hitting her left hip, left shoulder. She was ambulatory with full range of motion of her left shoulder at time of my examination complaining of mild pain in his areas. She denies LOC. We will obtain orthostatic vital signs, x-rays of left shoulder/left hip.
--- NOTE | 2022-12-13 22:26 | RAD REPORT ---
EXAM DESCRIPTION: RAD - Shoulder Left 2 View - 12/13/2022 10:17 pm CLINICAL HISTORY: fall, pain COMPARISON: <Comparisons> FINDINGS: No fracture or dislocation seen. If pain persists, consider follow-up CT imaging.
--- NOTE | 2022-12-13 22:29 | RAD REPORT ---
EXAM DESCRIPTION: RAD - Hip Left 2 View - 12/13/2022 10:17 pm CLINICAL HISTORY: fall, pain COMPARISON: <Comparisons> FINDINGS: Severe osteoarthritis affects the left hip. No acute fracture or dislocation seen.
[2022-12-14 00:42] VITALS: BMI 42.0
[2022-12-14] MEDS: ACETAMINOPHEN 500 MG TAB PO PRN (03:37)
[2022-12-14 04:34] LABS: Absolute Lymphocytes (CBC) 1.7 K/uL (0.7-4.9); Hematocrit 31.6 % (36.0-45.0); Lymphocytes % 25.4 % (15.3-44.8); MCV 93.6 fL (80-100); MPV 8.2 fL (7.6-11.3); RBC Red Blood Cell Count 3.38 M/uL (3.86-4.86)
[2022-12-14 04:41] LABS: Potassium 4.1 mEq/L (3.5-5.1)
[2022-12-14] MEDS: INSULIN -REGULAR HUMAN 50 UNIT/0.5 ML ML SQ SCH (07:30)
[2022-12-14] MEDS ORDERED: FESOTERODINE FUMARATE 4 MG PO SCH (09:00)
[2022-12-14] MEDS ORDERED: GABAPENTIN 400 MG CAP PO SCH (09:00)
[2022-12-14] MEDS ORDERED: DULOXETINE 30 MG CAP PO SCH (09:00)
[2022-12-14 09:09] VITALS: BP 129/60; TEMP 97.4
--- NOTE | 2022-12-16 06:58 | ECHO ---
HEIGHT: 5 ft 2 in WEIGHT: 230 lb 0 oz DATE OF STUDY: 12/13/[address]: Aime Ramos MD 2-DIMENSIONAL: YES M.MODE: YES DOPPLER: YES COLOR FLOW: YES TDS: YES PORTABLE: YES DEFINITY: NO BUBBLE STUDY: NO DIAGNOSIS: CHEST PAIN/ SYNCOPE CARDIAC HISTORY: CATHERIZATION: SURGERY: PROSTHETIC VALVE: PACEMAKER: MEASUREMENTS (cm) DIASTOLIC (NORMALS) SYSTOLIC (NORMALS) IVSd 1.0 (0.6-1.2) LA Diam 3.0 (1.9-4.0) LVEF 53% LVIDd 3.7 (3.5-5.7) LVIDs 2.7 (2.0-3.5) %FS 27% LVPWd 1.1 (0.6-1.2) Ao Diam 2.3 (2.0-3.7) 2 DIMENSIONAL ASSESSMENT: RIGHT ATRIUM: NORMAL LEFT ATRIUM: NORMAL RIGHT VENTRICLE: NORMAL LEFT VENTRICLE: NORMAL TRICUSPID VALVE: MILD TRICUSPID REGURGITATION MITRAL VALVE: NORMAL PULMONIC VALVE: MILD PULMONIC INSUFFICIENCY AORTIC VALVE: NORMAL PERICARDIAL EFFUSION: NONE AORTIC ROOT: NORMAL LEFT VENTRICULAR WALL MOTION: NORMAL. DOPPLER/COLOR FLOW: SEE BELOW. COMMENTS: NORMAL LEFT VENTRICULAR EJECTION FRACTION 55-60% NORMAL WALL MOTION MILD TRICUSPID REGURGITATION MILD PULMONIC INSUFFICIENCY GRADE I DIASTOLIC DYSFUNCTION TECHNOLOGIST: CAIN BURR
--- NOTE | 2022-12-16 07:03 | TREADPHA ---
DX: CHEST PAIN Date of Study: 12/13/22 Ht: 5' 2 " Wt: 230 lb 0 oz Consulting Physician: MARCO A MEDICATIONS: ASPIRIN, LIPITOR, LOVENOX, NOVOLIN-R HISTORY: DIABETES MELLITUS PHYSICIAL EXAMINATION: RESTING B.P.: 115/64 RESTING H.R.: 76 RESTING EKG: NORMAL SINUS RHYTHM WITH T WAVE DEPRESSION IN ANTERIO LEAD PROTOCOL: LEXISCAN EXERCISE TIME: 3:30 B.P. AT PEAK STRESS: 86/65 IMPRESSION: LEXISCAN INJECTED. CARDIOLITE INJECTED ( SEE NUCLEAR MEDICINE REPORT) NO COMPLAINTS OF CHEST PAIN OR SHORTNESS OF BREATH, COMPLAINTS OF HEADACHE. NO VENTRICULAR TACHYCARDIA/ SUPRA VENTRICULAR TACHYCARDIA. NO ARRHYTHMIAS NOTED. LAST BLOOD PRESSURE 113/65. NO EKG CHANGES WITH LEXISCAN
--- NOTE | 2022-12-17 08:56 | RAD REPORT ---
EXAM DESCRIPTION: CT - Chest For Pe Angio - 12/13/2022 2:46 am CLINICAL HISTORY: The patient is 52 years old and is Female; chest pain, syncope, positive dd B [facility] MAIN TECHNIQUE: Axial computed tomographic angiography images of the chest with intravenous contrast. S agittal and coronal reformatted images were created and reviewed. This CT exam was performed using one or more of the following dose reduction techniques: automated exposure control, adjustment of t he mA and/or kV according to patient size, and/or use of iterative reconstruction technique. MIP reconstructed images were created and reviewed. COMPARISON: No relevant prior studies available. FINDINGS: PULMONARY ARTERIES: Unremarkable. No pulmonary embolism. AORTA: No acute findings. No significant calcified atherosclerosis of the thoracic aorta. No aneurysmal dilatation or g ross dissection. LUNGS: Bibasilar scarring versus subsegmental atelectasis. No mass. PLEURAL SPACE: Unremarkable. No significant effusion. No pneumothorax. HEART: Unremarkable. No cardiomegaly. No significant pericardial effusion. No evidence of RV dysfunction. BONES/JOINTS: No acute fracture. No dislocation. SOFT TISSUES: Unremarkable. LYMPH NODES: Unremarkable. No enlarged lymph nodes. GALLBLADDER AND BILE DUCTS: Cholecystectomy. IMPRESSION: 1. No acute findings in the visualized arteries of the chest. 2. No acute cardiopulmonary abnormality. Electronically signed by: Esau Saavedra MD 12/13/2022 1:55 AM CDT Due to temporary technical issues with the PACS/Fluency reporting system, reports are being signed by the in house radiologist without review as a courtesy to ensure prompt reporting. The interpreting r adiologist is fully responsible for the content of the report.
== END 2022-12-14 09:45 | disposition home or self-care (01) ==
LOC: ER 18:07 → ERHOLD 23:45 → 4TH 12-13 01:21
PROVIDERS: ADMIT Hospitalist; ATTEND Hospitalist
DX: R07.9 Chest pain, unspecified (principal); R55 Syncope and collapse; F41.9 Anxiety disorder, unspecified; R06.4 Hyperventilation; E11.9 Type 2 diabetes mellitus without complications; Z88.6 Allergy status to analgesic agent
CPT/HCPCS: 93005; 93017; 93306; 85025 ×3; 81001; 80048 ×3; 36415 ×2; 83735; 85610; 80061; 82947 ×5; 85379; 80076; 83036; 84484 ×3; 83880; 80307; 70450; 71275; 71045; 73502; 73030; 78452; 99285; Q9967; J2785; J1650; J2270 ×2; J2405; J7030; J0696; A9500; G0378 ×3

== ENCOUNTER 2023-02-09 00:37 | Observation (INO) | payer OTHER ==
--- OUTSIDE RECORDS SUMMARY | 2023-02-09 00:57 | XMS REPORT | Continuity of Care Document ---
:1970 [facility] Organization [facility] t Address [address] [place] [address] [place] [id number] Care Team Providers Name Role Phone Maddi Dhara Primary Care Physician Kenya Evans Attending Clinician Unavailable KAYLA LUTZ Attending Clinician Unavailable LACEY CLEMENTS Attending Clinician Unavailable Bree Welsh MD Attending Clinician Doctor Unassigned, [place] Attending Clinician Unavailable BREE WELSH Attending Clinician Unavailable Kayla Lutz MD Attending Clinician Bernice Amaya Attending Clinician PEDRO LUIS RUSHING [...] Unavailable ANDREW RESENDIZ Attending Clinician Unavailable Nurse, [facility] Pob Immunization Attending Clinician Unavailable Andrew Resendiz DO Attending Clinician Jonas Barker MD Attending Clinician Calin Lazar DO Attending Clinician KAYLA LUTZ Admitting Clinician Unavailable Kayla Lutz MD Admitting Clinician ANNAMARIA BARKER Admitting Clinician Unavailable Annamaria Barker DO Admitting Clinician BERNICE COLUNGA Admitting Clinician Unavailable Payers Payer Name Policy Type Policy Number Effective Date Expiration Date Lucrecia clement [facility] [id number] 2021 PLUS 00:00:00 [facility] [id number] 2015 HEALTH CHOICE 00:00:00 AMBETTER [id number] 2020 [facility] 00:00:00 PLAN Ambetter from [id number] [facility] [place] 2] AMBETTER [id number] 2019 FROM [place] 00:00:00 HEALTH Ambetter from [id number] Common Spi rit [facility] Ambetter from [id number] Common Spi rit [facility] Ambetter from [id number] Common Spi rit [facility] Problems Condition Condition Condition Status [...] Active Overview: Univers of left of left 6-03 Formattin ity o f hip hip 00:00: g of this [place] 00 note Medical might be Branch different from the original. 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 Uni vers (current) (current) 8-28 ity of use of use of 00:00: [place] non-steroi non-steroi 00 Me dical jaiden jaiden Branch anti-infla anti-infla mmatories mmatories (nsaid) (nsaid) Other iron Other iron Disease Active U nivers deficiency deficiency 8-28 it y of anemia anemia 00:00: Medical Branch Subcutaneo Subcutaneo Disease Active U nivers us nodules us nodules 8 it y of 00:00: [place] [facility] Bilateral Bilateral Disease Active Uni vers knee pain knee pain 3- ity of 00:00: [place] [facility] Bilateral Bilateral Disease Active Uni vers knee pain knee pain 3- ity of 00:00: [place] [address] Medical Branch [id number] Pain, Problem Active Commo n [id number] joint, Spirit hand, left - [facility] [id number] [place] [address] osteoarthr Spirit itis of - [facility] left hip [facility] [id number] Trigger Problem Active Commo n finger, Spirit right ring - [facility] finger [facility] [id number] Pain, Problem Active Commo n [id number] joint, Spirit hand, - [facility] right [facility] Allergies, Adverse Reactions, Alerts Allergy Allergy Status Severity Reaction(s) Onset Inactive Treating Comm ents Source Name Type Date Date Clinician CODEINE DRUG Active N/V Univers INGREDI 2-04 ity of 00:00: [place] [address] Medical Branch Codeine Propensi Active Nausea And [place] ty to Vomiting 2-04 Health adverse 00:00: reaction 00 s Social History Social Habit Start Date Stop Date Quantity Comments Source History [facility] Health Alcohol Std Drinks History [facility] Health Alcohol Binge History of [facility] - Tobacco Use [facility] Sex Assigned At Common Sp mingo - [facility] Exposure to 2022-12-17 2022-12-27 Not sure [facility] SARS-CoV-2 00:00:00 08:47:00 [place] Medical (event) Branch History SDOH Food 2022-06-13 2022-06-13 1 Univers ity of Worry 00:00:00 00:00:00 [place] [facility] History SDOH Food 2022-06-13 2022-06-13 1 Univers ity of Scarcity 00:00:00 00:00:00 [place] [facility] History SDOH 2022-06-13 2022-06-13 2 University o f Transport Med 00:00:00 00:00:00 [place] Medic al Branch History SDOH 2022-06-13 2022-06-13 2 University o f Transport Non-Med 00:00:00 00:00:00 [place] M edical Branch Tobacco use and 2022-06-11 2022-06-11 Smokeless tobacco Un iversity of exposure 00:00:00 00:00:00 non-user [facility] Education 2022-06-10 2022-06-10 21 [facility] 00:00:00 00:00:00 [facility] Alcohol intake 2020-12-18 2020-12-18 [facility] 00:00:00 00:00:00 non-drinker (finding) History SDOH 2020-12-18 2020-12-18 1 [facility] Alcohol Frequency 00:00:00 00:00:00 Smoking Status Start Date Stop Date Source Never smoked tobacco [facility] Medications Ordered Filled Start Stop Current Ordering Indication Dosage Frequency Signature Comments Components Source Medication Medication Date Date Medication? Clinician (SIG) Name Name atorvastati 2022- No 10mg Take 1 Uni vers n 10 mg 5-26 05-26 tablet by ity of tablet 09:06: 00:00 mouth in [place] 57 :00 the Medical morning. Branch atorvastati 2022- No 10mg Take 1 Uni vers n 10 mg 5-26 05-26 tablet by ity of tablet 09:06: 00:00 mouth in [place] 57 :00 the Medical morning. Branch atorvastati 2022- No 10mg Take 1 Uni vers n 10 mg 5-26 05-26 tablet by ity of tablet 09:06: 00:00 mouth in [place] 57 :00 the Medical morning. Branch amitriptyli Yes amitriptyl Univers ne 150 mg 5-26 ine 150 mg ity of tablet 08:56: tablet [place] 31 Take 1 Medical tablet Branch every day by oral route for 30 days. Fesoterodin Yes Toviaz 4 Un james e (TOVIAZ) 5-26 mg ity of 4 mg tablet 08:56: tablet,ext [place] 31 ended Medical release Branch dapaglifloz Yes Xigduo XR U nivers in-metformi 5-26 10 mg-500 ity of n (XIGDUO 08:56: mg [place] XR) 10-500 31 tablet,ext Med ical mg TBph ended Branch release Take 1 tablet every day by oral route for 30 days. cyclobenzap 2023-0 Yes 10mg Take 1 Univ ers rine 10 mg 5-26 tablet by ity of tablet 08:56: mouth in [place] [address] the Medical morning Branch and 1 tablet in the evening. DULoxetine 2023-0 Yes 60mg Take 1 Unive rs 60 mg 5-26 capsule by ity of capsule 08:56: mouth in [place] [address] the Medical morning. Branch celecoxib 2023-0 Yes 200mg Take 1 Unive rs 200 mg 5-26 capsule by ity of capsule 08:56: mouth in [place] [address] the Medical morning Branch and 1 capsule in the evening. semaglutide 2023-0 Yes 1.25mg inject Un james (OZEMPIC) 1 5-26 1.25 mg ity o f mg/dose (4 08:56: under the [place] mg/3 mL) skin Medical PnIj weekly. Branch amitriptyli 3-0 Yes amitriptyl Univers ne 150 mg 5-26 ine 150 mg ity of tablet 08:56: tablet [place] [address] Take 1 Medical tablet Branch every day by oral route for 30 days. Fesoterodin 3-0 Yes Toviaz 4 Un james e (TOVIAZ) 5-26 mg ity of 4 mg tablet 08:56: tablet,ext [place] 31 ended Medical release Branch dapaglifloz 3-0 Yes Xigduo XR U nivers in-metformi 5-26 10 mg-500 ity of n (XIGDUO 08:56: mg [place] XR) 10-500 31 tablet,ext Med ical mg TBph ended Branch release Take 1 tablet every day by oral route for 30 days. cyclobenzap 2023-0 Yes 10mg Take 1 Univ ers rine 10 mg 5-26 tablet by ity of tablet 08:56: mouth in [place] [address] the Medical morning Branch and 1 tablet in the evening. DULoxetine 2023-0 Yes 60mg Take 1 Unive rs 60 mg 5-26 capsule by ity of capsule 08:56: mouth in [place] [address] the Medical morning. Branch celecoxib 2023-0 Yes 200mg Take 1 Unive rs 200 mg 5-26 capsule by ity of capsule 08:56: mouth in [place] [address] the Medical morning Branch and 1 capsule in the evening. semaglutide 2023-0 Yes 1.25mg inject Un james (OZEMPIC) 1 5-26 1.25 mg ity o f mg/dose (4 08:56: under the [place] mg/3 mL) 31 skin Medical PnIj weekly. Branch amitriptyli 2022-0 Yes amitriptyl Univers ne 150 mg 5-26 ine 150 mg ity of tablet 08:56: tablet [place] [address] Take 1 Medical tablet Branch every day by oral route for 30 days. Fesoterodin 2023-0 Yes Toviaz 4 Un james e (TOVIAZ) 5-26 mg ity of 4 mg tablet 08:56: tablet,ext [place] [address] ended Medical release Branch dapaglifloz 2022-0 Yes Xigduo XR U nivers in-metformi 5-26 10 mg-500 ity of n (XIGDUO 08:56: mg [place] XR) 10-500 31 tablet,ext Med ical mg TBph ended Branch release Take 1 tablet every day by oral route for 30 days. cyclobenzap 2023-0 Yes 10mg Take 1 Univ ers rine 10 mg 5-26 tablet by ity of tablet 08:56: mouth in [place] [address] the Medical morning Branch and 1 tablet in the evening. DULoxetine 2023-0 Yes 60mg Take 1 Unive rs 60 mg 5-26 capsule by ity of capsule 08:56: mouth in [place] [address] the Medical morning. Branch celecoxib 2023-0 Yes 200mg Take 1 Unive rs 200 mg 5-26 capsule by ity of capsule 08:56: mouth in [place] [address] the Medical morning Branch and 1 capsule in the evening. semaglutide 3-0 Yes 1.25mg inject Un james (OZEMPIC) 1 5-26 1.25 mg ity o f mg/dose (4 08:56: under the [place] mg/3 mL) 31 skin Medical PnIj weekly. Branch amitriptyli 2022-0 Yes amitriptyl Univers ne 150 mg 5-26 ine 150 mg ity of tablet 08:56: tablet [place] [address] Take 1 Medical tablet Branch every day by oral route for 30 days. Fesoterodin 3-0 Yes Toviaz 4 Un james e (TOVIAZ) 5-26 mg ity of 4 mg tablet 08:56: tablet,ext [place] [address] ended Medical release Branch dapaglifloz 2023-0 Yes Xigduo XR U nivers in-metformi 5-26 10 mg-500 ity of n (XIGDUO 08:56: mg [place] XR) 10-500 31 tablet,ext Med ical mg TBph ended Branch release Take 1 tablet every day by oral route for 30 days. cyclobenzap 2023-0 Yes 10mg Take 1 Univ ers rine 10 mg 5-26 tablet by ity of tablet 08:56: mouth in [place] [address] the Medical morning Branch and 1 tablet in the evening. DULoxetine 2023-0 Yes 60mg Take 1 Unive rs 60 mg 5-26 capsule by ity of capsule 08:56: mouth in [place] [address] the Medical morning. Branch celecoxib 2023-0 Yes 200mg Take 1 Unive rs 200 mg 5-26 capsule by ity of capsule 08:56: mouth in [place] [address] the Medical morning Branch and 1 capsule in the evening. semaglutide 3-0 Yes 1.25mg inject Un james (OZEMPIC) 1 5-26 1.25 mg ity o f mg/dose (4 08:56: under the [place] mg/3 mL) 31 skin Medical PnIj weekly. Branch amitriptyli 3-0 Yes amitriptyl Univers ne 150 mg 5-26 ine 150 mg ity of tablet 08:56: tablet [place] [address] Take 1 Medical tablet Branch every day by oral route for 30 days. Fesoterodin 3-0 Yes Toviaz 4 Un james e (TOVIAZ) 5-26 mg ity of 4 mg tablet 08:56: tablet,ext [place] [address] ended Medical release Branch dapaglifloz 3-0 Yes Xigduo XR U nivers in-metformi 5-26 10 mg-500 ity of n (XIGDUO 08:56: mg [place] XR) 10-500 31 tablet,ext Med ical mg TBph ended Branch release Take 1 tablet every day by oral route for 30 days. cyclobenzap 2023-0 Yes 10mg Take 1 Univ ers rine 10 mg 5-26 tablet by ity of tablet 08:56: mouth in [place] [address] the Medical morning Branch and 1 tablet in the evening. DULoxetine 2023-0 Yes 60mg Take 1 Unive rs 60 mg 5-26 capsule by ity of capsule 08:56: mouth in [place] 31 the Medical morning. Branch celecoxib 3-0 Yes 200mg Take 1 Unive rs 200 mg 5-26 capsule by ity of capsule 08:56: mouth in [place] 31 the Medical morning Branch and 1 capsule in the evening. semaglutide 3-0 Yes 1.25mg inject Un james (OZEMPIC) 1 5-26 1.25 mg ity o f mg/dose (4 08:56: under the [place] mg/3 mL) 31 skin Medical PnIj weekly. Branch traMADoL 50 2022-0 Yes TAKE 1 Univ ers mg tablet 5-20 TABLET BY ity o f 00:00: MOUTH [place] 00 EVERY 8 Medical HOURS Branch NEEDED FOR 10 DAYS traMADoL 50 2022-0 Yes TAKE 1 Univ ers mg tablet 5-20 TABLET BY ity o f 00:00: MOUTH [place] 00 EVERY 8 Medical HOURS Branch NEEDED FOR 10 DAYS traMADoL 50 2022-0 Yes TAKE 1 Univ ers mg tablet 5-20 TABLET BY ity o f 00:00: MOUTH [place] 00 EVERY 8 Medical HOURS Branch NEEDED FOR 10 DAYS traMADoL 50 3-0 Yes TAKE 1 Univ ers mg tablet 5-20 TABLET BY ity o f 00:00: MOUTH [place] 00 EVERY 8 Medical HOURS Branch NEEDED FOR 10 DAYS traMADoL 50 2022-0 Yes TAKE 1 Univ ers mg tablet 5-20 TABLET BY ity o f 00:00: MOUTH [place] 00 EVERY 8 Medical HOURS Branch NEEDED FOR 10 DAYS clonazePAM 3-0 Yes TAKE 1 Unive rs 0.5 mg 5-19 TABLET BY ity of tablet 00:00: MOUTH [place] 00 THREE Medical TIMES A Branch DAY NEEDED FOR 15 DAYS clonazePAM 2023-0 Yes TAKE 1 Unive rs 0.5 mg 5-19 TABLET BY ity of tablet 00:00: MOUTH [place] 00 THREE Medical TIMES A Branch DAY NEEDED FOR 15 DAYS clonazePAM 2023-0 Yes TAKE 1 Unive rs 0.5 mg 5-19 TABLET BY ity of tablet 00:00: MOUTH [place] 00 THREE Medical TIMES A Branch DAY NEEDED FOR 15 DAYS clonazePAM 2023-0 Yes TAKE 1 Unive rs 0.5 mg 5-19 TABLET BY ity of tablet 00:00: MOUTH [place] 00 THREE Medical TIMES A Branch DAY NEEDED FOR 15 DAYS clonazePAM 2023-0 Yes TAKE 1 Unive rs 0.5 mg 5-19 TABLET BY ity of tablet 00:00: MOUTH [place] 00 THREE Medical TIMES A Branch DAY NEEDED FOR 15 DAYS FENTanyl PF Yes 25ug 25 mcg, Uni vers (SUBLIMAZE 2-20 Slow IV ity of (PF)) 14:14: Push, [place] injection 37 Q5MIN PRN, Medi danielle 25 mcg 4 doses, Branch Starting on Fri09/23/22 at 0814, Until Discontinu ed, Routine, Pain (scale 4-6), PACU ondansetron 2022- No 4mg 4 mg, Slow Univers (ZOFRAN 09-2320 IV Push, ity of (PF)) 14:14: 14:16 PRN, 1 [place] injection 4 37 :00 dose, Medical mg Starting Branch on Fri09/23/22 at 0814, Until Fri09/23/22 at 0816, Routine, Nausea and Vomiting (N/V), PACU FENTanyl PF 2022- No 25ug 25 mcg, Un james (SUBLIMAZE 09-23 Slow IV ity o f (PF)) 14:14: 17:13 Push, [place] injection 37 :49 Q5MIN PRN, Medi danielle 25 mcg 4 doses, Branch Starting on Fri09/23/22 at 0814, Until Fri09/23/22 at 1113, Routine, Pain (scale 4-6), PACU ondansetron 2022- No 4mg 4 mg, Slow Univers (ZOFRAN 09-23 IV Push, ity of (PF)) 14:14: 14:16 PRN, 1 [place] injection 4 37 :00 dose, Medical mg Starting Branch on Fri09/23/22 at 0814, Until Fri09/23/22 at 0816, Routine, Nausea and Vomiting (N/V), PACU triamcinolo 2022- No PRN, Unive rs ne 09-23 Starting ity of acetonide 13:55: 17:13 on Fri (KENALOG) 00 :49 09/23/22 at Medi danielle injection 0755, Branch Until Fri09/23/22 at 1113, Routine, Intra-op bupivacaine 2022- No PRN, Unive rs (preserv 09-23 Starting ity of free) 0.5% 13:55: 17:13 on [place] ([facility]ORCAIN [facility] 0755, Branch % (5 mg/mL) Until Mon injection 09/23/22 at 1113, Routine, Intra-op triamcinolo 2022- No PRN, Unive rs ne 09-23 Starting ity of acetonide 13:53: 17:13 on Fri [place] (KENALOG) 00 :49 09/23/22 at [facility] danielle injection 0753, Branch Until 09/23/22 at 1113, Routine, Intra-op bupivacaine 2022- No PRN, Unive rs (preserv 09-23 Starting ity of free) 0.5% 13:53: 17:13 [place] Fri [place] (SENSORCAIN 00 :49 09/23/22 at [facility]) 0.5 0753, Branch % (5 mg/mL) Until Mon injection 09/23/22 at 1113, Routine, Intra-op lactated 2022- No 1000mL at 42 Unive rs ringers IV 2- 02-20 mL/hr, ity of infusion 12:45: 13:02 1,000 mL, [place] 1,000 mL 00 :00 IV Medical Infusion, Branch ONCE, 1 dose, On Fri09/23/22 at 0645, Routine, DSU Pre-op lactated 2022- No 1000mL at 42 Unive rs ringers IV 2-20 02-20 mL/hr, ity of infusion 12:45: 13:02 1,000 mL, [place] 1,000 mL 00 :00 IV Medical Infusion, Branch ONCE, 1 dose, On Fri09/23/22 at 0645, Routine, DSU Pre-op amitriptyli Yes amitriptyl Univers ne 150 mg 2-20 ine 150 mg ity of tablet 09:08: tablet [place] 45 Take 1 Medical tablet Branch every [...] mouth 2 ity of tablet 09:08: (two) [place] [address] times Medical daily. Branch DULoxetine 2022-0 Yes 60mg Take 60 mg U nivers 60 mg 2-20 by mouth ity of capsule 09:08: daily. [place] [address] Medical Branch atorvastati 2022-0 Yes 10mg Take 10 mg Univers n 10 mg 2-20 by mouth ity of tablet 09:08: in the [place] [address] morning. Medical Branch celecoxib 2022-0 Yes 200mg Take 200 Uni vers 200 mg 2-20 mg by ity of capsule 09:08: mouth in [place] [address] the Medical morning Branch and 200 mg in the evening. semaglutide 2022-0 Yes 1.25mg inject Un james (OZEMPIC) 1 2-20 1.25 mg ity o f mg/dose (4 09:08: under the [place] mg/3 mL) 45 skin Medical PnIj weekly. Branch amitriptyli 2022-0 Yes amitriptyl Univers ne 150 mg 2-20 ine 150 mg ity of tablet 09:08: tablet [place] 45 Take 1 Medical tablet Branch every [...] mouth 2 ity of tablet 09:08: (two) [place] [address] times Medical daily. Branch DULoxetine 2022-0 Yes 60mg Take 60 mg U nivers 60 mg 2-20 by mouth ity of capsule 09:08: daily. [place] [address] Medical Branch atorvastati 2022-0 Yes 10mg Take 10 mg Univers n 10 mg 2-20 by mouth ity of tablet 09:08: in the [place] [address] morning. Medical Branch celecoxib 2022-0 Yes 200mg Take 200 Uni vers 200 mg 2-20 mg by ity of capsule 09:08: mouth in [place] [address] the Medical morning Branch and 200 mg in the evening. semaglutide 2022-0 Yes 1.25mg inject Un james (OZEMPIC) 1 2-20 1.25 mg ity o f mg/dose (4 09:08: under the [place] mg/3 mL) 45 skin Medical PnIj weekly. Branch amitriptyli 2022-0 Yes amitriptyl Univers ne 150 mg 2-20 ine 150 mg ity of tablet 09:08: tablet [place] [address] Take 1 Medical tablet Branch every day by oral route for 30 days. Fesoterodin 2022-0 Yes Toviaz 4 Un james e (TOVIAZ) 2-20 mg ity of 4 mg tablet 09:08: tablet,ext [place] [address] ended Medical release Branch dapaglifloz 2022-0 Yes [...] mouth 2 ity of tablet 09:08: (two) [place] [address] times Medical daily. Branch DULoxetine 2022-0 Yes 60mg Take 60 mg U nivers 60 mg 2-20 by mouth ity of capsule 09:08: daily. [place] [address] Medical Branch atorvastati 2022-0 Yes 10mg Take 10 mg Univers n 10 mg 2-20 by mouth ity of tablet 09:08: in the [place] [address] morning. Medical Branch celecoxib 2022-0 Yes 200mg Take 200 Uni vers 200 mg 2-20 mg by ity of capsule 09:08: mouth in [place] 45 the Medical morning Branch and 200 mg in the evening. semaglutide 3-0 Yes 1.25mg inject Un james (OZEMPIC) 1 2-20 1.25 mg ity o f mg/dose (4 09:08: under the [place] mg/3 mL) 45 skin Medical PnIj weekly. Branch aspirin 325 3-0 3- No [id number] 325mg Take 1 Univers mg tablet 2-21 10-21 tablet by ity of 00:00: 04:59 mouth in [place] 00 :00 the Medical morning Branch and 1 tablet in the evening. Take with meals. Do all this for 28 days. aspirin 325 3-0 2022- No [id number] 325mg Take 1 Univers mg tablet 2-21 10- tablet by ity of 00:00: 04:59 mouth in [place] 00 :00 the Medical morning Branch and 1 tablet in the evening. Take with meals. Do all this for 28 days. aspirin 325 2022-0 2022- No [id number] 325mg Take 1 Univers mg tablet 09-23- tablet by ity of 00:00: 04:59 mouth in [place] 00 :00 the Medical morning Branch and 1 tablet in the evening. Take with meals. Do all this for 28 days. semaglutide 3-0 Yes 1.25mg inject Un james (OZEMPIC) 1 2-14 1.25 mg ity o f mg/dose (4 13:39: under the [place] mg/3 mL) 54 skin Medical PnIj weekly. Branch semaglutide 3-0 Yes 1.25mg inject Un james (OZEMPIC) 1 [...] mouth ity of tablet 13:19: in the [place] [address] morning. Medical Branch celecoxib 2023-0 Yes 200mg Take 200 Uni vers 200 mg 2-14 mg by ity of capsule 13:19: mouth in [place] [address] the Medical morning Branch and 200 mg in the evening. atorvastati 2023-0 Yes 10mg Take 10 mg Univers n 10 mg 2-14 by mouth ity of tablet 13:19: in the [place] [address] morning. Medical Branch celecoxib 2023-0 Yes 200mg Take 200 Uni vers 200 mg 2-14 mg by ity of capsule 13:19: mouth in [place] [address] the Medical morning Branch and 200 mg in the evening. atorvastati 2023-0 Yes 10mg Take 10 mg Univers n 10 mg 2-14 by mouth ity of tablet 13:19: in the [place] [address] morning. Medical Branch celecoxib 2023-0 Yes 200mg Take 200 Uni vers 200 mg 2-14 mg by ity of capsule 13:19: mouth in [place] [address] the Medical morning Branch and 200 mg in the evening. atorvastati 2023-0 Yes 10mg Take 10 mg Univers n 10 mg 2-14 by mouth ity of tablet 13:19: in the [place] [address] morning. Medical Branch celecoxib 2023-0 Yes 200mg Take 200 Uni vers 200 mg 2-14 mg by ity of capsule 13:19: mouth in [place] [address] the Medical morning Branch and 200 mg in the evening. atorvastati 2023-0 Yes 10mg Take 10 mg Univers n 10 mg 2-14 by mouth ity of tablet 13:19: in the [place] [address] morning. Medical Branch celecoxib 2023-0 Yes 200mg Take 200 Uni vers 200 mg 2-14 mg by ity of capsule 13:19: mouth in [place] [address] the Medical morning Branch and 200 mg in the evening. amitriptyli 2023-0 Yes amitriptyl Univers ne 150 mg 2-14 ine 150 mg ity of tablet 13:09: tablet [place] [address] Take 1 Medical tablet Branch every day by oral route for 30 days. Fesoterodin 2022-0 Yes Toviaz 4 Un james e (TOVIAZ) 2-14 mg ity of 4 mg tablet 13:09: tablet,ext [place] [address] ended Medical release Branch dapaglifloz 2022-0 Yes [...] mouth 2 ity of tablet 13:09: (two) [place] [address] times Medical daily. Branch DULoxetine 2022-0 Yes 60mg Take 60 mg U nivers 60 mg 2-14 by mouth ity of capsule 13:09: daily. [place] [address] Medical Branch amitriptyli 2022-0 Yes amitriptyl Univers ne 150 mg 2-14 ine 150 mg ity of tablet 13:09: tablet [place] [address] Take 1 Medical tablet Branch every day by oral route for 30 days. Fesoterodin 2022-0 Yes Toviaz 4 Un james e (TOVIAZ) 2-14 mg ity of 4 mg tablet 13:09: tablet,ext [place] [address] ended Medical release Branch dapaglifloz 2022-0 Yes [...] mouth 2 ity of tablet 13:09: (two) [place] [address] times Medical daily. Branch DULoxetine 2022-0 Yes 60mg Take 60 mg U nivers 60 mg 2-14 by mouth ity of capsule 13:09: daily. [place] [address] Medical Branch amitriptyli 2022-0 Yes amitriptyl Univers ne 150 mg 2-14 ine 150 mg ity of tablet 13:09: tablet [place] [address] Take 1 Medical tablet Branch every day by oral route for 30 days. Fesoterodin 2022-0 Yes Toviaz 4 Un james e (TOVIAZ) 2-14 mg ity of 4 mg tablet 13:09: tablet,ext [place] 47 ended Medical release Branch dapaglifloz 2022-0 Yes [...] mouth 2 ity of tablet 13:09: (two) [place] [address] times Medical daily. Branch DULoxetine 2022-0 Yes 60mg Take 60 mg U nivers 60 mg 2-14 by mouth ity of capsule 13:09: daily. [place] [address] Medical Branch amitriptyli 2022-0 Yes amitriptyl Univers ne 150 mg 2-14 ine 150 mg ity of tablet 13:09: tablet [place] [address] Take 1 Medical tablet Branch every day by oral route for 30 days. Fesoterodin 2022-0 Yes Toviaz 4 Un james e (TOVIAZ) 2-14 mg ity of 4 mg tablet 13:09: tablet,ext [place] [address] ended Medical release Branch dapaglifloz 2022-0 Yes [...] mouth 2 ity of tablet 13:09: (two) [place] [address] times Medical daily. Branch DULoxetine 2022-0 Yes 60mg Take 60 mg U nivers 60 mg 2-14 by mouth ity of capsule 13:09: daily. [place] [address] Medical Branch amitriptyli 2022-0 Yes amitriptyl Univers ne 150 mg 2-14 ine 150 mg ity of tablet 13:09: tablet [place] [address] Take 1 Medical tablet Branch every day by oral route for 30 days. Fesoterodin Yes Toviaz 4 Un james e (TOVIAZ) 2-14 mg ity of 4 mg tablet 13:09: tablet,ext [place] [address] ended Medical release Branch dapaglifloz 0 Yes Xigduo XR U nivers in-metformi 2-14 10 mg-500 ity of n (XIGDUO 13:09: mg [place] XR) 10-500 47 tablet,ext Med ical mg TBph ended Branch release Take 1 tablet every day by oral route for 30 days. cyclobenzap Yes 10mg Take 10 mg Univers rine 10 mg 2-14 by mouth 2 ity of tablet 13:09: (two) [place] [address] times Medical daily. Branch DULoxetine Yes 60mg Take 60 mg U nivers 60 mg 2-14 by mouth ity of capsule 13:09: daily. [address] Branch cefTRIAXone 2021-08- No 1000mg 1,000 mg, Univers (ROCEPHIN) 08-1312 IV ity of 1,000 mg in 18:00: 17:59 Piggyback, [place] NaCl 0.9% 00 :00 Q24H ABX, Medic al (NS) 50 mL 2 doses, Branc h MINI-BAG First dose (after last modificati on) on Sneha 06/13/22 at 1200, Last dose on Fri06/14/22 at 1200, Administer over 30 Minutes, 50 mL
Reas on for Anti-Infec tive: Documented Infection< br>Documen billy Infection Site: Urine
D uration of Therapy: 7 days lactobacill 2021-08- No [id number] .5mg Take 1 [facility] us 08-1311 tablet by ity of acidophilus 00:00: 05:59 mouth in [place] 00 :00 the Medical morning Branch for 30 days. polyethylen 2021-08- No [id number] 17g Take 1 Univers e glycol 08-13 Packet by ity o f 3350 17 00:00: 05:59 mouth in [place] gram powder 00 :00 the Medical morning Branch for 30 days. lactobacill 2021-08- No [id number] .5mg Take 1 [facility] us 08-13 tablet by ity of acidophilus 00:00: 05:59 mouth [place] 00 :00 the Medical morning Branch for 30 days. polyethylen 2021-08- No [id number] 17g Take 1 Univers e glycol 08-1311 Packet by ity o f 3350 17 00:00: 05:59 mouth in [place] gram powder 00 :00 the Medical morning Branch for 30 days. sennosides- 2021-08 Yes 1{tbl} 1 tablet, Univers docusate 09 Oral, ity of sodium 16:15: DAILY, [place] (SENOKOT-S) 00 First dose Me dical 8.6-50 mg on Fri Branch per tablet 06/12/22 at 1 tablet 1015, Until Discontinu ed, Routine polyethylen 2021-08 Yes 17g 17 g, Unive rs e glycol 08-12 Oral, ity of 3350 powder 16:15: DAILY, [place] 17 g 00 First dose Medical on Fri Branch 06/12/22 at 1015, Until Discontinu ed, Routine amitriptyli 2021-08 Yes amitriptyl Univers ne 150 mg -09 ine 150 mg ity of tablet 16:08: [...] capsule 16:08: daily. [place] 30 Medical Branch amitriptyli 2021-08 Yes amitriptyl [...] [place] 30 Medical Branch proMETHazin 2021-08 Yes [id number] 25mg Take 1 Univers e 25 mg 1-09 tablet by ity of tablet 00:00: mouth [place] 00 every 4 Medical (four) Branch hours as needed for N/V unresponsi ve to Ondansetro n. proMETHazin 2021-08 Yes [id number] 25mg Take 1 Univers e 25 mg 1-09 tablet by ity of tablet 00:00: mouth [place] 00 every 4 Medical (four) Branch hours as needed for N/V unresponsi ve to Ondansetro n. proMETHazin 2021-08 Yes [id number] 25mg Take 1 Univers e 25 mg 1-09 tablet by ity of tablet 00:00: mouth [place] 00 every 4 Medical (four) Branch hours as needed for N/V unresponsi ve to Ondansetro n. proMETHazin 2021-08 Yes [id number] 25mg Take 1 Univers e 25 mg 1-09 tablet by ity of tablet 00:00: mouth [place] 00 every 4 Medical (four) Branch hours as needed for N/V unresponsi ve to Ondansetro n. proMETHazin 2021-08 Yes [id number] 25mg Take 1 Univers e 25 mg 1-09 tablet by ity of tablet 00:00: mouth [place] 00 every 4 Medical (four) Branch hours as needed for N/V unresponsi ve to Ondansetro n. proMETHazin 2021-08 Yes [id number] 25mg Take 1 Univers e 25 mg 1-09 tablet by ity of tablet 00:00: mouth [place] 00 every 4 Medical (four) Branch hours as needed for N/V unresponsi ve to Ondansetro n. proMETHazin 2021-08 Yes [id number] 25mg Take 1 Univers e 25 mg 1-09 tablet by ity of tablet 00:00: mouth [place] 00 every 4 Medical (four) Branch hours as needed for N/V unresponsi ve to Ondansetro n. proMETHazin 2021-08 Yes [id number] 25mg Take 1 Univers e 25 mg 1-09 tablet by ity of tablet 00:00: mouth [place] 00 every 4 Medical (four) Branch hours as needed for N/V unresponsi ve to Ondansetro n. proMETHazin 2021-08 Yes [id number] 25mg Take 1 Univers e 25 mg 1-09 tablet by ity of tablet 00:00: mouth [place] 00 every 4 Medical (four) Branch hours as needed for N/V unresponsi ve to Ondansetro n. proMETHazin 2021-083- No [id number] 25mg Take 1 Univers e 25 mg 1-09 02-14 tablet by ity of tablet 00:00: 00:00 mouth [place] 00 :00 every 4 Medical (four) Branch hours as needed for N/V unresponsi ve to Ondansetro n. proMETHazin 2021-08- No [id number] 25mg Take 1 Univers e 25 mg 08-12 tablet by ity of tablet 00:00: 00:00 mouth [place] 00 :00 every 4 Medical (four) Branch hours as needed for N/V unresponsi ve to Ondansetro n. docusate 2021-08- No [id number] 100mg Take 1 [facility] 100 mg 08-12 capsule by ity of capsule 00:00: 05:59 mouth in [place] 00 :00 the Medical morning Branch and 1 capsule in the evening. Do all this for 30 days. docusate 2021-08- No [id number] 100mg Take 1 [facility] 100 mg 08-12 [...] Indication s: acute pain ciprofloxac 2021-08- No [id number] 500mg Take 1 Univers in HCl 500 08-12 tablet by ity of mg tablet 00:00: 05:59 mouth [place] 00 :00 every 12 Medical (twelve) Branch hours for 7 days. metroNIDAZO 2021-08- No [id number] 500mg Take 2 Univers LE 250 mg [...] Indication s: acute pain ciprofloxac 2021-08- No [id number] 500mg Take 1 Univers in HCl 500 08-12 tablet by ity of mg tablet 00:00: 05:59 mouth [place] 00 :00 every 12 Medical (twelve) Branch hours for 7 days. metroNIDAZO 2021-08- No [id number] 500mg Take 2 Univers LE 250 mg 08-12 tablets by ity of tablet 00:00: 05:59 mouth [place] 00 :00 every 12 Medical (twelve) Branch hours for 7 days. proMETHazin 2021-08 Yes 25mg 25 mg, IV U nivers e 08-11 Piggyback, ity of (PHENERGAN) 21:26: Q4HPRN, [place] 25 mg in 59 Starting Medical NaCl 0.9% on [facility] (NS) 50 mL 06/11/22 at IV 1526, piggyback Until Discontinu ed, Routine, Nausea and Vomiting (N/V), N/V unresponsi ve to Ondansetro n acetaminoph 2021-08 Yes 650mg 650 mg, Un james en 08-11 Oral, ity of (TYLENOL) 15:55: Q6HPRN, [place] tablet 650 26 Starting Medic al mg on [facility] 06/11/22 at 0955, Until Discontinu ed, Routine, Pain (scale 1-3) enoxaparin 2021-08 Yes 40mg 40 mg, Unive rs (LOVENOX) 08-11 Subcutaneo ity of injection 15:00: us, DAILY, [place] 40 mg 00 First dose Medical on [facility] 06/11/22 at 0900, Until Discontinu ed, Routine DULoxetine 2021-08 Yes 60mg 60 mg, Unive rs (CYMBALTA) 08-11 Oral, ity of capsule 60 15:00: DAILY, [place] mg 00 First dose Medical on [facility] 06/11/22 at 0900, Until Discontinu ed, Routine lactobacill 2021-08 Yes .5mg 0.5 mg, Uni vers us 08-11 Oral, ity of acidophilus 15:00: DAILY, [place] tablet 0.5 00 First dose Med ical mg on [facility] 06/11/22 at 0900, Until Discontinu ed, Routine Sliding 2021-08 Yes Subcutaneo Univ ers Scale 1-08 us, TID ity of Insulin - 14:00: MEALS, [place] Lispro 00 First dose Medical (HumaLOG) + on [facility] Fsbg 06/11/22 at Testing 0800, Until Discontinu ed, Routine morpHINE (4 2021-08 Yes 4mg 4 mg, Slow Univers mg/mL) 108 IV Push, ity of injection 4 12:52: Q4HPRN, [place] mg 08 Starting Medical on [facility] 06/11/22 at 0652, Until Discontinu ed, Routine, Pain (scale 7-10) cefTRIAXone 2021-08 1000mg 1,000 mg, Univers (ROCEPHIN) 08-11 11-09 [...] 06:15: First dose [place] mg 00 on [facility] 06/11/22 at Branch 0015, Until Discontinu ed, Routine gabapentin 2021-08 Yes 200mg 200 mg, Uni vers (NEURONTIN) 1-08 Oral, BID, it y of capsule 200 06:15: First dose [place] mg 00 on [facility] 06/11/22 at Branch 0015, Until Discontinu ed, Routine cyclobenzap 2021-08 Yes 10mg 10 mg, Univ ers rine 1-08 Oral, BID, ity of (FLEXERIL) 06:15: First dose [place] tablet 10 00 on [facility] mg 06/11/22 at Branch 0015, Until Discontinu ed, Routine ondansetron 2021-08 Yes 4mg 4 mg, Slow Univers (ZOFRAN 08-11 IV Push, ity of (PF)) 06:06: Q6HPRN, [place] injection 4 47 Starting Medi danielle mg on Fri06/11/22 at 0006, Until Discontinu ed, Routine, Nausea and Vomiting (N/V) traMADoL 2021-08 No 50mg 50 mg, Univer s (ULTRAM) 08-1110 Oral, ity of tablet 50 06:06: 06:05 Q8HPRN, [place] mg 37 :37 Starting Medical on Fri06/11/22 at 0006, Until Sneha 06/13/22 at 0005, [...] 2358, Routine, Pain (scale 7-10) oxybutynin 2021-08 oxybutynin Univers 10 mg 24 hr 08-11 [...] ity of loss, 00:05: 00:00 mg/0.5 mL [place] (MACOGOVY) 07 :00 subcutaneo Medic al 0.25 mg/0.5 us pen Branch mL PnIj SC injector injection 0.25 mg SC qwk x4wk, then 0.5 mg SC qwk x4wk, then 1 mg SC qwk x4wk, then 1.7 mg SC qwk x4wk, then 2.4 mg SC qwk clindamycin 2021-08 No clindamyci Univers 300 mg 08-11 n HCl [...] 00 :00 dose, On Medical NaCl 0.9% [facility] Branch (NS) 50 mL 06/10/22 at IV 1800, KUNAL piggyback ondansetron 2021-08 No 4mg 4 mg, Slow Univers (ZOFRAN 08-10 IV Push, ity of (PF)) 23:15: 22:25 ONCE, 1 [place] injection 4 00 :00 dose, On Medi danielle mg [facility] 06/10/22 at 1715, KUNAL morpHINE (4 2021-08 No 4mg 4 mg, Slow Univers mg/mL) 08-10 IV Push, ity of injection 4 22:15: 21:21 ONCE, 1 [place] mg 00 :00 dose, On Medical [facility] 06/10/22 at 1615, STAT cefTRIAXone 2021-08 No 1000mg 1,000 mg, Univers (ROCEPHIN) 08-10 IV ity of 1,000 mg in 20:15: 20:51 Piggyback, [place] NaCl 0.9% 00 :00 ONCE, 1 Medical (NS) 50 mL dose, On Branc h MINI-BAG [facility] 06/10/22 at 1415, Administer over 30 Minutes, 50 mL
Reas on for Anti-Infec tive: Documented Infection< br>Documen billy Infection Site: Urine<br&g t;Duration of Therapy: 7 days ketorolac 2021-08 No 30mg 30 mg, Unive rs (TORADOL) 08-10 Slow IV ity of injection 20:00: 19:01 Push, [place] 30 mg 00 :00 ONCE, 1 Medical dose, On Branch [facility] 06/10/22 at 1400, Routine morpHINE (4 2021-08- No 4mg 4 mg, Slow Univers mg/mL) 08-10 IV Push, ity of injection 4 19:30: 19:29 ONCE, 1 [place] mg 00 :00 dose, On Medical Mon Branch 06/10/22 at 1330, STAT ondansetron 2021-08 No 4mg 4 mg, Slow Univers (ZOFRAN 08-10 IV Push, ity of (PF)) 19:30: 19:29 ONCE, 1 [place] injection 4 00 :00 dose, On Medi danielle mg Mon Branch 06/10/22 at 1330, KUNAL FENTanyl PF 2021-08 No 50ug 50 mcg, Un james (SUBLIMAZE 08-10 Slow IV ity o f (PF)) 18:01: 18:02 Push, [place] injection 00 :00 ONCE, 1 Medical 50 mcg dose, On Branch [facility] 06/10/22 at 1215, Routine cefpodoxime 2021-08- No [id number] 100mg Take 1 Univers 100 mg 08-10 [...] [place] 45 ended Medical release Branch oxybutynin 2021-0 Yes oxybutynin U nivers 10 mg 24 hr 6-13 chloride ity of tablet 09:33: ER 10 mg [place] 45 tablet,ext Medical ended Branch release 24 hr semaglutide 2021-0 Yes .25mg 0.25 mg. U nivers (OZEMPIC) 6-13 ity of 0.25 mg or 09:33: [place] 0.5 mg(2 45 Medical mg/1.5 mL) Branch PnIj semaglutide 2022-0 Yes [place] Univ ers , weight 6-13 0.25 ity of loss, 09:33: mg/0.5 mL [place] (WEGOVY) 45 subcutaneo Medic al 0.25 mg/0.5 us pen Branch mL PnIj SC injector injection 0.25 mg SC qwk x4wk, then 0.5 mg SC qwk x4wk, then 1 mg SC qwk x4wk, then 1.7 mg SC qwk x4wk, then 2.4 mg SC qwk dapaglifloz 2021-0 Yes Xigduo XR U nivers in-metformi 6-13 10 mg-500 ity of n (XIGDUO 09:33: mg [place] XR) 10-500 45 tablet,ext Med ical mg TBph ended Branch release Take 1 tablet every day by oral route for 30 days. clindamycin 2021-0 Yes clindamyci Univers 300 mg 6-13 n HCl 300 ity of capsule 09:33: mg capsule [place] 45 Take 1 Medical capsule 3 Branch times a day by oral route for 10 days. cyclobenzap 2021-0 Yes 10mg Take 10 mg Univers rine 10 mg 6-13 by mouth 2 ity of tablet 09:33: (two) [place] 45 times Medical daily. Branch DULoxetine 2021-0 Yes 60mg Take 60 mg U nivers 60 mg 6-13 by mouth ity of capsule 09:33: daily. [place] 45 Medical Branch gabapentin 2022-0 Yes 100mg Take 100 Un james 100 mg 4-28 mg by ity of capsule 00:00: mouth 2 [place] 00 (two) Medical times Branch daily. gabapentin 2022-0 Yes 100mg Take 100 Un james 100 mg 4-28 mg by ity of capsule 00:00: mouth 2 [place] 00 (two) Medical times Branch daily. gabapentin 2022-0 Yes 100mg Take 100 Un james 100 mg 4-28 mg by ity of capsule 00:00: mouth 2 [place] 00 (two) Medical times Branch daily. gabapentin 2022-0 Yes 100mg Take 100 Un james 100 mg 4-28 mg by ity of capsule 00:00: mouth 2 [place] 00 (two) Medical times Branch daily. gabapentin 2022-0 [...] [place] 00 (two) Medical times Branch daily. gabapentin 2022-0 Yes 100mg Take 100 Un james 100 mg 4-28 mg by ity of capsule 00:00: mouth 2 [place] 00 (two) Medical times Branch daily. gabapentin 2022-0 Yes 100mg Take 1 Univ ers 100 mg 4-28 capsule by ity of capsule 00:00: mouth in [place] 00 the Medical morning Branch and 1 capsule in the evening. gabapentin 2022-0 Yes 100mg Take 1 Univ ers 100 mg 4-28 capsule by ity of capsule 00:00: mouth in [place] 00 the Medical morning Branch and 1 capsule in the evening. gabapentin 2022-0 Yes 100mg Take 1 Univ ers 100 mg 4-28 capsule by ity of capsule 00:00: mouth in [place] 00 the Medical morning Branch and 1 capsule in the evening. gabapentin 2022-0 Yes 100mg Take 1 Univ ers 100 mg 4-28 capsule by ity of capsule 00:00: mouth in [place] 00 the Medical morning Branch and 1 capsule in the evening. gabapentin 2022-0 Yes 100mg Take 1 Univ ers 100 mg 4-28 capsule by ity of capsule 00:00: mouth in [place] 00 the Medical morning Branch and 1 capsule in the evening. lidocaine-p 2022-0 Yes APPLY TO Un james rilocaine 2-28 AFFECTED ity of 2.5-2.5 % 00:00: AREA EVERY [place] cream 00 DAY Medical NEEDED Branch eszopiclone 2022-0 Yes 1mg Take 1 mg U nivers 1 mg tablet 2-28 by mouth ity of 00:00: daily. [place] Medical Branch lidocaine-p 2022-0 Yes APPLY TO Un james rilocaine 2-28 AFFECTED ity of 2.5-2.5 % 00:00: AREA EVERY [place] cream 00 DAY Medical NEEDED Branch eszopiclone 2022-0 Yes 1mg Take 1 mg U nivers 1 mg tablet 2-28 by mouth ity of 00:00: daily. [place] Medical Branch lidocaine-p 2022-0 Yes APPLY TO Un james rilocaine 2-28 AFFECTED ity of 2.5-2.5 % 00:00: AREA EVERY [place] cream 00 DAY Medical NEEDED Branch eszopiclone 2022-0 Yes 1mg Take 1 mg U nivers 1 mg tablet 2-28 by mouth ity of 00:00: daily. [place] Medical Branch lidocaine-p 2021-0 Yes APPLY TO Un james rilocaine 2-28 AFFECTED ity of 2.5-2.5 % 00:00: AREA EVERY [place] cream 00 DAY Medical NEEDED Branch eszopiclone 2021-0 Yes 1mg Take 1 mg U nivers 1 mg tablet 2-28 by mouth ity of 00:00: daily. [place] Medical Branch lidocaine-p 2021-0 Yes APPLY TO Un james rilocaine 2-28 AFFECTED ity of 2.5-2.5 % 00:00: AREA EVERY [place] cream 00 DAY Medical NEEDED Branch eszopiclone 2021-0 Yes 1mg Take 1 mg U nivers 1 mg tablet 2-28 by mouth ity of 00:00: daily. [place] Medical Branch lidocaine-p 2021-0 Yes APPLY TO Un james rilocaine 2-28 AFFECTED ity of 2.5-2.5 % 00:00: AREA EVERY [place] cream 00 DAY Medical NEEDED Branch eszopiclone 2021-0 Yes 1mg Take 1 mg U nivers 1 mg tablet 2-28 by mouth ity of 00:00: daily. [place] Medical Branch lidocaine-p 2021-0 Yes APPLY TO Un james rilocaine 2-28 AFFECTED ity of 2.5-2.5 % 00:00: AREA EVERY [place] cream 00 DAY Medical NEEDED Branch eszopiclone 2021-0 Yes 1mg Take 1 mg U nivers 1 mg tablet 2-28 by mouth ity of 00:00: daily. [place] Medical Branch lidocaine-p 2021-0 Yes APPLY TO Un james rilocaine 2-28 AFFECTED ity of 2.5-2.5 % 00:00: AREA EVERY [place] cream 00 DAY Medical NEEDED Branch eszopiclone 2021-0 Yes 1mg Take 1 mg U nivers 1 mg tablet 2-28 by mouth ity of 00:00: daily. [place] Medical Branch lidocaine-p 2021-0 Yes APPLY TO Un james rilocaine 2-28 AFFECTED ity of 2.5-2.5 % 00:00: AREA EVERY [place] cream 00 DAY Medical NEEDED Branch eszopiclone 2021-0 Yes 1mg Take 1 mg U nivers 1 mg tablet 2-28 by mouth ity of 00:00: daily. [place] Medical Branch lidocaine-p 2022-0 Yes APPLY TO Un james rilocaine 2-28 AFFECTED ity of 2.5-2.5 % 00:00: AREA EVERY [place] cream 00 DAY Medical NEEDED Branch eszopiclone 2-0 Yes 1mg Take 1 mg U nivers 1 mg tablet 2-28 by mouth ity of 00:00: daily. [place] [id number] Medical Branch lidocaine-p 2022-0 Yes APPLY TO Un james rilocaine 2-28 AFFECTED ity of 2.5-2.5 % 00:00: AREA EVERY [place] cream 00 DAY Medical NEEDED Branch lidocaine-p 2022-0 Yes APPLY TO Un james rilocaine 2-28 AFFECTED ity of 2.5-2.5 % 00:00: AREA EVERY [place] cream 00 DAY Medical NEEDED Branch lidocaine-p 2022-0 Yes APPLY TO Un james rilocaine 2-28 AFFECTED ity of 2.5-2.5 % 00:00: AREA EVERY [place] cream 00 DAY Medical NEEDED Branch lidocaine-p 2022-0 Yes APPLY TO Un james rilocaine 2-28 AFFECTED ity of 2.5-2.5 % 00:00: AREA EVERY [place] cream 00 DAY Medical NEEDED Branch lidocaine-p 2022-0 Yes APPLY TO Un james rilocaine 2-28 AFFECTED ity of 2.5-2.5 % 00:00: AREA EVERY [place] cream 00 DAY Medical NEEDED Branch lidocaine-p 2022-0 Yes APPLY TO Un james rilocaine 2-28 AFFECTED ity of 2.5-2.5 % 00:00: AREA EVERY [place] cream 00 DAY Medical NEEDED Branch lidocaine-p 2022-0 Yes APPLY TO Un james rilocaine 2-28 AFFECTED ity of 2.5-2.5 % 00:00: AREA EVERY [place] cream 00 DAY Medical NEEDED Branch lidocaine-p 2022-0 Yes APPLY TO Un james rilocaine 2-28 AFFECTED ity of 2.5-2.5 % 00:00: AREA EVERY [place] cream 00 DAY Medical NEEDED Branch lidocaine-p 2022-0 Yes APPLY TO Un [...] cream 00 DAY Medical NEEDED Branch eszopiclone 2021-2022- No 1mg Take 1 mg Univers 1 mg tablet 10-0114 by mouth ity of 00:00: 00:00 daily. [place] 00 :00 Medical Branch eszopiclone 2022- No 1mg Take 1 mg Univers 1 mg tablet 10-0114 by mouth ity of 00:00: 00:00 daily. [place] 00 :00 Medical Branch methylPREDN Yes [id number] 84mg Take 21 Univers ISolone 2-21 tablets by ity of (MEDROL, 00:00: mouth [place] LUNA,) 4 mg 00 SEE-INSTRU Med ical tablets CTIONS. Branch follow package directions methylPREDN 2021- No [id number] 84mg Take 21 Univers ISolone 2-21 11-08 tablets by ity o f (MEDROL, 00:00: 00:00 mouth [place] LUNA,) 4 mg 00 :00 SEE-INSTRU Med ical tablets CTIONS. Branch follow package directions methylPREDN 2020-08 Yes [id number] 84mg Take 21 Univers ISolone 0-19 [id number] tablets by ity of (MEDROL, 00:00: mouth [place] LUNA,) 4 mg 00 SEE-INSTRU Med ical tablets CTIONS. Branch follow package directions methylPREDN 2020-08- No [id number] 84mg Take 21 Univers ISolone 0-19 11-08 [id number] tablets by ity of (MEDROL, 00:00: 00:00 mouth [place] LUNA,) 4 mg 00 :00 SEE-INSTRU Med ical tablets CTIONS. Branch follow package directions methocarbam Yes [id number] 750mg [id number] Take 1 [place] ol 5-17 9103 [id number] tablet Health (Robaxin) 00:00: 3D (750 mg 750 MG 00 total) by tablet mouth 3 (three) times a day if needed for muscle spasms for up to 10 days. methocarbam 2020- No [id number] 750mg [id number] Take 1 [place] ol 5-17 05-28 9103 [id number] tablet Health (Robaxin) 00:00: 04:59 3D (750 mg 750 MG 00 :00 total) by tablet mouth 3 (three) times a day if needed for muscle spasms for up to 10 days. metFORMIN Yes [place] (Glucophage 5-13 Health ) 1000 MG 00:00: tablet 00 metFORMIN Yes [place] (Glucophage 5-13 Health ) 1000 MG 00:00: tablet 00 benzonatate Yes [id number] 100mg Take 1 [facility] 100 mg 6-24 capsule by ity of capsule 00:00: mouth 3 [place] 00 (three) Medical times Branch daily as needed for Cough. chlorphenir Yes [id number] 4mg Take 1 Univers amine 4 mg 6-24 tablet by ity of tablet 00:00: mouth [place] 00 every 6 Medical (six) Branch hours as needed for Allergies or Runny nose. benzonatate 0 2021- No [id number] 100mg Take 1 Univers 100 mg 6-24 11-08 capsule by ity of capsule 00:00: 00:00 mouth 3 [place] 00 :00 (three) Medical times Branch daily as needed for Cough. chlorphenir 2021- No [id number] 4mg Take 1 Univers amine 4 mg 6-24 11-08 tablet by ity of tablet 00:00: 00:00 mouth [place] 00 :00 every 6 Medical (six) Branch hours as needed for Allergies or Runny nose. loratadine Yes 10mg Take 10 mg U nivers 10 mg 7-31 by mouth ity of tablet 00:00: daily. [facility] loratadine 2017-0 Yes 10mg Take 10 mg U nivers 10 mg 7-31 by mouth ity of tablet 00:00: daily. [facility] loratadine 2017-0 Yes 10mg Take 10 mg U nivers 10 mg 7-31 by mouth ity of tablet 00:00: daily. [facility] loratadine 2016-0 Yes 10mg Take 10 mg U nivers 10 mg 7-31 by mouth ity of tablet 00:00: daily. [facility] loratadine 2016-0 Yes 10mg Take 10 mg U nivers 10 mg 7-31 by mouth ity of tablet 00:00: daily. [place] [facility] loratadine 2017-0 Yes 10mg Take 10 mg U nivers 10 mg 7-31 by mouth ity of tablet 00:00: daily. [place] [facility] loratadine 2016-0 Yes 10mg Take 10 mg U nivers 10 mg 7-31 by mouth ity of tablet 00:00: daily. [place] [facility] loratadine 2016-0 Yes 10mg Take 10 mg U nivers 10 mg 7-31 by mouth ity of tablet 00:00: daily. [place] [facility] loratadine 2016-0 Yes 10mg Take 10 mg U nivers 10 mg 7-31 by mouth ity of tablet 00:00: daily. [place] [facility] loratadine 2016-0 Yes 10mg Take 10 mg U nivers 10 mg 7-31 by mouth ity of tablet 00:00: daily. [place] [facility] loratadine 2017-0 Yes 10mg Take 10 mg U nivers 10 mg 7-31 by mouth ity of tablet 00:00: daily. [place] [facility] loratadine 2016-0 Yes 10mg Take 10 mg U nivers 10 mg 7-31 by mouth ity of tablet 00:00: daily. [place] [facility] loratadine 2017-0 Yes 10mg Take 10 mg U nivers 10 mg 7-31 by mouth ity of tablet 00:00: daily. [place] [facility] loratadine 2016-0 Yes 10mg Take 10 mg U nivers 10 mg 7-31 by mouth ity of tablet 00:00: daily. [place] [facility] loratadine 2016-0 Yes 10mg Take 10 mg U nivers 10 mg 7-31 by mouth ity of tablet 00:00: daily. Medical Branch loratadine 2017-0 Yes 10mg Take 10 mg U nivers 10 mg 7-31 by mouth ity of tablet 00:00: daily. Medical Branch loratadine 2017-0 Yes 10mg Take 10 mg U nivers 10 mg 7-31 by mouth ity of tablet 00:00: daily. Medical Branch loratadine 2017-0 Yes 10mg Take 10 mg U nivers 10 mg 7-31 by mouth ity of tablet 00:00: daily. Medical Branch loratadine 2017-0 Yes 10mg Take 1 Unive rs 10 mg 7-31 tablet by ity of tablet 00:00: mouth in [place] the Medical morning. Branch loratadine 2017-0 Yes 10mg Take 1 Unive rs 10 mg 7-31 tablet by ity of tablet 00:00: mouth in [place] the Medical morning. Branch loratadine 2016-0 Yes 10mg Take 1 Unive rs 10 mg 7-31 tablet by ity of tablet 00:00: mouth in [place] the Medical morning. Branch loratadine 2016-0 Yes 10mg Take 1 Unive rs 10 mg 7-31 tablet by ity of tablet 00:00: mouth in [place] the Medical morning. Branch loratadine 2017-0 Yes 10mg Take 1 Unive rs 10 mg 7-31 tablet by ity of tablet 00:00: mouth in [place] the Medical morning. Branch metFORMIN Yes TAKE 1 Univer s 1,000 mg 7-07 TABLET BY ity of tablet 00:00: MOUTH [place] 00 TWICE A Medical DAY Branch NEEDED WITH MORNING AND EVENING MEAL metFORMIN Yes TAKE 1 Univer s 1,000 mg 7-07 TABLET BY ity of tablet 00:00: MOUTH [place] 00 TWICE A Medical DAY Branch NEEDED WITH MORNING AND EVENING MEAL metFORMIN Yes TAKE 1 Univer s 1,000 mg 7-07 TABLET BY ity of tablet 00:00: MOUTH [place] 00 TWICE A Medical DAY Branch NEEDED WITH MORNING AND EVENING MEAL metFORMIN Yes TAKE 1 Univer s 1,000 mg 7-07 TABLET BY ity of tablet 00:00: MOUTH [place] 00 TWICE A Medical DAY Branch NEEDED [...] NEEDED WITH MORNING AND EVENING MEAL metFORMIN 2022- No TAKE 1 Unive rs 1,000 mg 7-02 02-14 TABLET BY ity o f tablet 00:00: 00:00 MOUTH [place] 00 :00 TWICE A Medical DAY Branch NEEDED WITH MORNING AND EVENING MEAL metFORMIN 2016-2022- No TAKE 1 Unive rs 1,000 mg 7-07 02-14 TABLET BY ity o f tablet [...] of tablet 00:00: mouth [place] 00 daily. [facility] Branch famotidine Yes 40mg Take 1 Unive rs 40 mg 2-20 tablet by ity of tablet 00:00: mouth [place] 00 daily. [facility] Branch famotidine Yes 40mg Take 1 Unive rs 40 mg 2-20 tablet by ity of tablet 00:00: mouth [place] 00 daily. [facility] Branch famotidine 2022- No 40mg Take 1 Univ ers 40 mg 2-20 02-14 tablet by ity of tablet 00:00: 00:00 mouth [place] 00 :00 daily. [facility] Branch famotidine 2022- No 40mg Take 1 Univ ers 40 mg 2-20 02-14 tablet by ity of tablet 00:00: 00:00 mouth [place] 00 :00 daily. Medical Branch Meloxicam Meloxicam Yes [place] not Co mmon [place] defined [facility] Metformin Metformin Yes [place] not Co mmon HCl HCl [place] defined [facility] Naproxen Naproxen Yes [place] not Comm on [place] defined [facility] Amoxicillin Amoxicillin Yes Ronen not Common -Pot -Pot [place] defined [facility] Clavulan[facility] Clavulanate [facility] Hydrochloro Hydrochloro Yes Ronen not Common thiazide thiazide [place] defined [facility] Cyclobenzap Cyclobenzap Yes Ronen not Common rine HCl rine HCl [place] defined [facility] Vitamin D Vitamin D Yes Ronen not Co mmon (Ergocalcif (Ergocalcif [place] defined Spirit satya) satya) [facility] Ferrous Ferrous Yes Ronen not Common Sulfate Sulfate [place] defined [facility] Amitriptyli Amitriptyli Yes Ronen not Common ne HCl ne HCl Puga defined [facility] Methocarbam Methocarbam Yes Ronen not Common ol ol Puga defined [facility] Ondansetron Ondansetron Yes Ronen not Common HCl HCl Puga defined [facility] BusPIRone BusPIRone Yes Rnoen not Co mmon HCl HCl Puga defined [facility] Diclofenac Diclofenac Yes Ronen not Common Sodium Sodium Puga defined [facility] Benzonatate Benzonatate Yes Ronen not Common Puga defined [facility] Gabapentin Gabapentin Yes Ronen not Common Puga defined [facility] Ketorolac Ketorolac No Ketorolac Tromethamin Tromethamin Tromethami [...] Vaccine Quad IM 3+ 00:00:00 [facility] Influenza Virus 2021-06-24 Completed Universit y of Vaccine Quad IM 3+ 00:00:00 [facility] Influenza Virus 2021-06-24 Completed Universit y of Vaccine Quad IM 3+ 00:00:00 [facility] Influenza Virus 2021-06-24 Completed [facility]it y of Vaccine Quad IM 3+ 00:00:00 [facility] Influenza Virus 2021-06-24 Completed [facility]it y of Vaccine Quad IM 3+ 00:00:00 [facility] Influenza Virus 2021-06-24 Completed [facility]it y of Vaccine Quad IM 3+ 00:00:00 [facility] Influenza Virus 2021-06-24 Completed [facility]it y of Vaccine Quad IM 3+ 00:00:00 [facility] Influenza Virus 2021-06-24 Completed [facility]it y of Vaccine Quad IM 3+ 00:00:00 [facility] Influenza Virus 2021-06-24 Completed [facility]it y of Vaccine Quad IM 3+ 00:00:00 [facility] Influenza Virus 2021-06-24 Completed [facility]it y of Vaccine Quad IM 3+ 00:00:00 [facility] Influenza Virus 2021-06-24 Completed [facility]it y of Vaccine Quad IM 3+ 00:00:00 [facility] Influenza Virus 2021-06-24 Completed [facility]it y of Vaccine Quad IM 3+ 00:00:00 [facility] Influenza Virus 2021-06-24 Completed [facility]it y of Vaccine Quad IM 3+ 00:00:00 [facility] Influenza Virus 2021-06-24 Completed [facility]it y of Vaccine Quad IM 3+ 00:00:00 [facility] Influenza Virus 2021-06-24 Completed [facility]it y of Vaccine Quad IM 3+ 00:00:00 [facility] Influenza Virus 2021-06-24 Completed [facility]it y of Vaccine Quad IM 3+ 00:00:00 [facility] Influenza Virus 2021-06-24 Completed [facility]it y of Vaccine Quad IM 3+ 00:00:00 [facility] Influenza Virus 2021-06-24 Completed [facility]it y of Vaccine Quad IM 3+ 00:00:00 [facility] Influenza Virus 2021-06-24 Completed [facility]it y of Vaccine Quad IM 3+ 00:00:00 [facility] Influenza Virus 2021-06-24 Completed [facility]it y of Vaccine Quad IM 3+ 00:00:00 [facility] Influenza Virus 2021-06-24 Completed [facility]it y of Vaccine Quad IM 3+ 00:00:00 [facility] Influenza Virus 2021-06-24 Completed [facility]it y of Vaccine Quad IM 3+ 00:00:00 [facility] SARS-COV-2 COVID-19 2021-04-23 Completed Unive rsity of PFIZER VACCINE 00:00:00 [facility] SARS-COV-2 COVID-19 2021-04-23 Completed Unive rsity of ALY/J&J VACCINE 00:00:00 [facility] SARS-COV-2 COVID-19 2021-04-23 Completed Unive rsity of PFIZER VACCINE 00:00:00 [facility] SARS-COV-2 COVID-19 2021-04-23 Completed Unive rsity of ALY/J&J VACCINE 00:00:00 [facility] SARS-COV-2 COVID-19 2021-04-23 Completed Unive rsity of PFIZER VACCINE 00:00:00 [facility] SARS-COV-2 COVID-19 2021-04-23 Completed Unive rsity of ALY/J&J VACCINE 00:00:00 [facility] SARS-COV-2 COVID-19 2021-04-23 Completed Unive rsity of PFIZER VACCINE 00:00:00 [facility] SARS-COV-2 COVID-19 2021-04-23 Completed Unive rsity of ALY/J&J VACCINE 00:00:00 [facility] SARS-COV-2 COVID-19 2021-04-23 Completed Unive rsity of PFIZER VACCINE 00:00:00 [facility] SARS-COV-2 COVID-19 2021-04-23 Completed Unive rsity of ALY/J&J VACCINE 00:00:00 [facility] SARS-COV-2 COVID-19 2021-04-23 Completed Unive rsity of PFIZER VACCINE 00:00:00 [facility] SARS-COV-2 COVID-19 2021-04-23 Completed Unive rsity of ALY/J&J VACCINE 00:00:00 [facility] SARS-COV-2 COVID-19 2021-04-23 Completed Unive rsity of PFIZER VACCINE 00:00:00 [facility] SARS-COV-2 COVID-19 2021-04-23 Completed Unive rsity of ALY/J&J VACCINE 00:00:00 [facility] SARS-COV-2 COVID-19 2021-04-23 Completed Unive rsity of PFIZER VACCINE 00:00:00 [facility] SARS-COV-2 COVID-19 2021-04-23 Completed Unive rsity of ALY/J&J VACCINE 00:00:00 [facility] SARS-COV-2 COVID-19 2021-04-23 Completed Unive rsity of PFIZER VACCINE 00:00:00 [facility] SARS-COV-2 COVID-19 2021-04-23 Completed Unive rsity of ALY/J&J VACCINE 00:00:00 [facility] SARS-COV-2 COVID-19 2021-04-23 Completed Unive rsity of PFIZER VACCINE 00:00:00 [facility] SARS-COV-2 COVID-19 2021-04-23 Completed Unive rsity of ALY/J&J VACCINE 00:00:00 [facility] SARS-COV-2 COVID-19 2021-04-23 Completed Unive rsity of PFIZER VACCINE 00:00:00 [facility] SARS-COV-2 COVID-19 2021-04-23 Completed Unive rsity of ALY/J&J VACCINE 00:00:00 [facility] SARS-COV-2 COVID-19 2021-04-23 Completed Unive rsity of PFIZER VACCINE 00:00:00 [facility] SARS-COV-2 COVID-19 2021-04-23 Completed Unive rsity of ALY/J&J VACCINE 00:00:00 [facility] SARS-COV-2 COVID-19 2021-04-23 Completed Unive rsity of PFIZER VACCINE 00:00:00 [facility] SARS-COV-2 COVID-19 2021-04-23 Completed Unive rsity of ALY/J&J VACCINE 00:00:00 [facility] SARS-COV-2 COVID-19 2021-04-23 Completed Unive rsity of PFIZER VACCINE 00:00:00 [facility] SARS-COV-2 COVID-19 2021-04-23 Completed Unive rsity of ALY/J&J VACCINE 00:00:00 [facility] SARS-COV-2 COVID-19 2021-04-23 Completed Unive rsity of PFIZER VACCINE 00:00:00 [facility] SARS-COV-2 COVID-19 2021-04-23 Completed Unive rsity of ALY/J&J VACCINE 00:00:00 [facility] SARS-COV-2 COVID-19 2021-04-23 Completed Unive rsity of PFIZER VACCINE 00:00:00 [facility] SARS-COV-2 COVID-19 2021-04-23 Completed Unive rsity of ALY/J&J VACCINE 00:00:00 [facility] SARS-COV-2 COVID-19 2021-04-23 Completed Unive rsity of PFIZER VACCINE 00:00:00 [facility] SARS-COV-2 COVID-19 2021-04-23 Completed Unive rsity of ALY/J&J VACCINE 00:00:00 [facility] SARS-COV-2 COVID-19 2021-04-23 Completed Unive rsity of PFIZER VACCINE 00:00:00 [facility] SARS-COV-2 COVID-19 2021-04-23 Completed Unive rsity of ALY/J&J VACCINE 00:00:00 [facility] SARS-COV-2 COVID-19 2021-04-23 Completed Unive rsity of PFIZER VACCINE 00:00:00 [facility] SARS-COV-2 COVID-19 2021-04-23 Completed Unive rsity of ALY/J&J VACCINE 00:00:00 [facility] SARS-COV-2 COVID-19 2021-04-23 Completed Unive rsity of PFIZER VACCINE 00:00:00 [facility] SARS-COV-2 COVID-19 2021-04-23 Completed Unive rsity of ALY/J&J VACCINE 00:00:00 [facility] SARS-COV-2 COVID-19 2021-04-23 Completed Unive rsity of PFIZER VACCINE 00:00:00 [facility] SARS-COV-2 COVID-19 2021-04-23 Completed Unive rsity of ALY/J&J VACCINE 00:00:00 [facility] SARS-COV-2 COVID-19 2021-04-23 Completed Unive rsity of PFIZER VACCINE 00:00:00 [facility] SARS-COV-2 COVID-19 2021-04-23 Completed Unive rsity of ALY/J&J VACCINE 00:00:00 [facility] SARS-COV-2 COVID-19 2021-04-23 Completed Unive rsity of PFIZER VACCINE 00:00:00 [facility] SARS-COV-2 COVID-19 2021-04-23 Completed Unive rsity of ALY/J&J VACCINE 00:00:00 [facility] SARS-COV-2 COVID-19 2021-04-02 Completed Unive rsity of PFIZER VACCINE 00:00:00 [facility] SARS-COV-2 COVID-19 2021-04-02 Completed Unive rsity of ALY/J&J VACCINE 00:00:00 [facility] SARS-COV-2 COVID-19 2021-04-02 Completed Unive rsity of PFIZER VACCINE 00:00:00 [facility] SARS-COV-2 COVID-19 2021-04-02 Completed Unive rsity of ALY/J&J VACCINE 00:00:00 [facility] SARS-COV-2 COVID-19 2021-04-02 Completed Unive rsity of PFIZER VACCINE 00:00:00 [facility] SARS-COV-2 COVID-19 2021-04-02 Completed Unive rsity of ALY/J&J VACCINE 00:00:00 [facility] SARS-COV-2 COVID-19 2021-04-02 Completed Unive rsity of PFIZER VACCINE 00:00:00 [facility] SARS-COV-2 COVID-19 2021-04-02 Completed Unive rsity of ALY/J&J VACCINE 00:00:00 [facility] SARS-COV-2 COVID-19 2021-04-02 Completed Unive rsity of PFIZER VACCINE 00:00:00 [facility] SARS-COV-2 COVID-19 2021-04-02 Completed Unive rsity of ALY/J&J VACCINE 00:00:00 [facility] SARS-COV-2 COVID-19 2021-04-02 Completed Unive rsity of PFIZER VACCINE 00:00:00 [facility] SARS-COV-2 COVID-19 2021-04-02 Completed Unive rsity of ALY/J&J VACCINE 00:00:00 [facility] SARS-COV-2 COVID-19 2021-04-02 Completed Unive rsity of PFIZER VACCINE 00:00:00 [facility] SARS-COV-2 COVID-19 2021-04-02 Completed Unive rsity of ALY/J&J VACCINE 00:00:00 [facility] SARS-COV-2 COVID-19 2021-04-02 Completed Unive rsity of PFIZER VACCINE 00:00:00 [facility] SARS-COV-2 COVID-19 2021-04-02 Completed Unive rsity of ALY/J&J VACCINE 00:00:00 [facility] SARS-COV-2 COVID-19 2021-04-02 Completed Unive rsity of PFIZER VACCINE 00:00:00 [facility] SARS-COV-2 COVID-19 2021-04-02 Completed Unive rsity of ALY/J&J VACCINE 00:00:00 [facility] SARS-COV-2 COVID-19 2021-04-02 Completed Unive rsity of PFIZER VACCINE 00:00:00 [facility] SARS-COV-2 COVID-19 2021-04-02 Completed Unive rsity of ALY/J&J VACCINE 00:00:00 [facility] SARS-COV-2 COVID-19 2021-04-02 Completed Unive rsity of PFIZER VACCINE 00:00:00 [facility] SARS-COV-2 COVID-19 2021-04-02 Completed Unive rsity of ALY/J&J VACCINE 00:00:00 [facility] SARS-COV-2 COVID-19 2021-04-02 Completed Unive rsity of PFIZER VACCINE 00:00:00 [facility] SARS-COV-2 COVID-19 2021-04-02 Completed Unive rsity of ALY/J&J VACCINE 00:00:00 [facility] SARS-COV-2 COVID-19 2021-04-02 Completed Unive rsity of PFIZER VACCINE 00:00:00 [facility] SARS-COV-2 COVID-19 2021-04-02 Completed Unive rsity of ALY/J&J VACCINE 00:00:00 [facility] SARS-COV-2 COVID-19 2021-04-02 Completed Unive rsity of PFIZER VACCINE 00:00:00 [facility] SARS-COV-2 COVID-19 2021-04-02 Completed Unive rsity of ALY/J&J VACCINE 00:00:00 [facility] SARS-COV-2 COVID-19 2021-04-02 Completed Unive rsity of PFIZER VACCINE 00:00:00 [facility] SARS-COV-2 COVID-19 2021-04-02 Completed Unive rsity of ALY/J&J VACCINE 00:00:00 [facility] SARS-COV-2 COVID-19 2021-04-02 Completed Unive rsity of PFIZER VACCINE 00:00:00 [facility] SARS-COV-2 COVID-19 2021-04-02 Completed Unive rsity of ALY/J&J VACCINE 00:00:00 [facility] SARS-COV-2 COVID-19 2021-04-02 Completed Unive rsity of PFIZER VACCINE 00:00:00 [facility] SARS-COV-2 COVID-19 2021-04-02 Completed Unive rsity of ALY/J&J VACCINE 00:00:00 [facility] SARS-COV-2 COVID-19 2021-04-02 Completed Unive rsity of PFIZER VACCINE 00:00:00 [facility] SARS-COV-2 COVID-19 2021-04-02 Completed Unive rsity of ALY/J&J VACCINE 00:00:00 [facility] SARS-COV-2 COVID-19 2021-04-02 Completed Unive rsity of PFIZER VACCINE 00:00:00 [facility] SARS-COV-2 COVID-19 2021-04-02 Completed Unive rsity of ALY/J&J VACCINE 00:00:00 [facility] SARS-COV-2 COVID-19 2021-04-02 Completed Unive rsity of PFIZER VACCINE 00:00:00 [facility] SARS-COV-2 COVID-19 2021-04-02 Completed Unive rsity of ALY/J&J VACCINE 00:00:00 [facility] SARS-COV-2 COVID-19 2021-04-02 Completed Unive rsity of PFIZER VACCINE 00:00:00 [facility] SARS-COV-2 COVID-19 2021-04-02 Completed Unive rsity of ALY/J&J VACCINE 00:00:00 [facility] SARS-COV-2 COVID-19 2021-04-02 Completed Unive rsity of PFIZER VACCINE 00:00:00 [facility] SARS-COV-2 COVID-19 2021-04-02 Completed Unive rsity of ALY/J&J VACCINE 00:00:00 [facility] SARS-COV-2 COVID-19 2021-04-02 Completed Unive rsity of PFIZER VACCINE 00:00:00 [facility] SARS-COV-2 COVID-19 2021-04-02 Completed Unive rsity of ALY/J&J VACCINE 00:00:00 [facility] Influenza Virus 2020-05-12 Completed Universit y of Vaccine Quad IM 3+ 00:00:00 [facility] Influenza Virus 2020-05-12 Completed Universit y of Vaccine Quad IM 3+ 00:00:00 [facility] Influenza Virus 2020-05-12 Completed Universit y of Vaccine Quad IM 3+ 00:00:00 [facility] Influenza Virus 2020-05-12 Completed Universit y of Vaccine Quad IM 3+ 00:00:00 [facility] Influenza Virus 2020-05-12 Completed Universit y of Vaccine Quad IM 3+ 00:00:00 [facility] Influenza Virus 2020-05-12 Completed Universit y of Vaccine Quad IM 3+ 00:00:00 [facility] Influenza Virus 2020-05-12 Completed Universit y of Vaccine Quad IM 3+ 00:00:00 [facility] Influenza Virus 2020-05-12 Completed Universit y of Vaccine Quad IM 3+ 00:00:00 [facility] Influenza Virus 2020-05-12 Completed Universit y of Vaccine Quad IM 3+ 00:00:00 [facility] Influenza Virus 2020-05-12 Completed Universit y of Vaccine Quad IM 3+ 00:00:00 [facility] Influenza Virus 2020-05-12 Completed Universit y of Vaccine Quad IM 3+ 00:00:00 [facility] Influenza Virus 2020-05-12 Completed Universit y of Vaccine Quad IM 3+ 00:00:00 [facility] Influenza Virus 2020-05-12 Completed Universit y of Vaccine Quad IM 3+ 00:00:00 [facility] Influenza Virus 2020-05-12 Completed Universit y of Vaccine Quad IM 3+ 00:00:00 [facility] Influenza Virus 2020-05-12 Completed Universit y of Vaccine Quad IM 3+ 00:00:00 [facility] Influenza Virus 2020-05-12 Completed Universit y of Vaccine Quad IM 3+ 00:00:00 [facility] Influenza Virus 2020-05-12 Completed Universit y of Vaccine Quad IM 3+ 00:00:00 [facility] Influenza Virus 2020-05-12 Completed [facility]it y of Vaccine Quad IM 3+ 00:00:00 [facility] Influenza Virus 2020-05-12 Completed Universit y of Vaccine Quad IM 3+ 00:00:00 [facility] Influenza Virus 2020-05-12 Completed [facility]it y of Vaccine Quad IM 3+ 00:00:00 [facility] Influenza Virus 2020-05-12 Completed [facility]it y of Vaccine Quad IM 3 00:00:00 [facility] Influenza Virus 2020-05-12 Completed Universit y of Vaccine Quad IM 3+ 00:00:00 [facility] Influenza Virus 2020-05-12 Completed Universit y of Vaccine Quad IM 3+ 00:00:00 [facility] LIDOCAINE HCL LIDOCAINE HCL 2020-01-20 Completed Common S pirit - 10MG/ML 10MG/ML 08:45:00 [facility] LIDOCAINE HCL LIDOCAINE HCL 2020-01-20 Completed Common S pirit - 10MG/ML 10MG/ML 08:45:00 [facility] LIDOCAINE HCL LIDOCAINE HCL 2020-01-20 Completed Common S pirit - 10MG/ML 10MG/ML 08:45:00 [facility] LIDOCAINE HCL LIDOCAINE HCL 2020-01-20 Completed Common S pirit - 10MG/ML 10MG/ML 08:45:00 [facility] LIDOCAINE HCL LIDOCAINE HCL 2020-01-20 Completed Common S pirit - 10MG/ML 10MG/ML 08:45:00 [facility] LIDOCAINE HCL LIDOCAINE HCL 2020-01-20 Completed Common S pirit - 10MG/ML 10MG/ML 08:45:00 [facility] Depo-Medrol Depo-Medrol 2020-01-20 Completed Common Spiri t - (Methylprednisolone (Methylprednisolone 08:44:00 [facility] ) 40mg ) 40mg [facility] Depo-Medrol Depo-Medrol 2020-01-20 Completed Common Spiri t - (Methylprednisolone (Methylprednisolone 08:44:00 [facility] ) 40mg ) 40mg [facility] Depo-Medrol Depo-Medrol 2020-01-20 Completed Common Spiri t - (Methylprednisolone (Methylprednisolone 08:44:00 [facility] ) 40mg ) 40mg [facility] Depo-Medrol Depo-Medrol 2020-01-20 Completed Common Spiri t - (Methylprednisolone (Methylprednisolone 08:43:00 [facility] ) 40mg ) 40mg [facility] Depo-Medrol Depo-Medrol 2020-01-20 Completed Common Spiri t - (Methylprednisolone (Methylprednisolone 08:43:00 [facility] ) 40mg ) 40mg [facility] Depo-Medrol Depo-Medrol 2020-01-20 Completed Common Spiri t - (Methylprednisolone (Methylprednisolone 08:43:[address] [facility] ) 40mg ) 40mg [facility] Influenza Virus 2019-09-13 Completed Universit y of Vaccine Quad IM 3+ 00:00:00 [facility] Influenza Virus 2019-09-13 Completed Universit y of Vaccine Quad IM 3+ 00:00:00 [facility] Influenza Virus 2019-09-13 Completed [facility]it y of Vaccine Quad IM 3+ 00:00:00 [facility] Influenza Virus 2019-09-13 Completed [facility]it y of Vaccine Quad IM 3+ 00:00:00 [facility] Influenza Virus 2019-09-13 Completed [facility]it y of Vaccine Quad IM 3+ 00:00:00 [facility] Influenza Virus 2019-09-13 Completed [facility]it y of Vaccine Quad IM 3+ 00:00:00 [facility] Influenza Virus 2019-09-13 Completed [facility]it y of Vaccine Quad IM 3+ 00:00:00 [facility] Influenza Virus 2019-09-13 Completed [facility]it y of Vaccine Quad IM 3+ 00:00:00 [facility] Influenza Virus 2019-09-13 Completed [facility]it y of Vaccine Quad IM 3+ 00:00:00 [facility] Influenza Virus 2019-09-13 Completed [facility]it y of Vaccine Quad IM 3+ 00:00:00 [facility] Influenza Virus 2019-09-13 Completed [facility]it y of Vaccine Quad IM 3+ 00:00:00 [facility] Influenza Virus 2019-09-13 Completed [facility]it y of Vaccine Quad IM 3+ 00:00:00 [facility] Influenza Virus 2019-09-13 Completed [facility]it y of Vaccine Quad IM 3+ 00:00:00 [facility] Influenza Virus 2019-09-13 Completed [facility]it y of Vaccine Quad IM 3+ 00:00:00 [facility] Influenza Virus 2019-09-13 Completed [facility]it y of Vaccine Quad IM 3+ 00:00:00 [facility] Influenza Virus 2019-09-13 Completed [facility]it y of Vaccine Quad IM 3+ 00:00:00 [facility] Influenza Virus 2019-09-13 Completed [facility]it y of Vaccine Quad IM 3+ 00:00:00 [facility] Influenza Virus 2019-09-13 Completed Universit y of Vaccine Quad IM 3+ 00:00:00 [facility] Influenza Virus 2019-09-13 Completed Universit y of Vaccine Quad IM 3+ 00:00:00 [facility] Influenza Virus 2019-09-13 Completed Universit y of Vaccine Quad IM 3+ 00:00:00 [facility] Influenza Virus 2019-09-13 Completed Universit y of Vaccine Quad IM 3+ 00:00:00 [facility] Influenza Virus 2019-09-13 Completed Universit y of Vaccine Quad IM 3+ 00:00:00 [facility] Influenza Virus 2019-09-13 Completed [facility]it y of Vaccine Quad IM 3+ 00:00:00 [facility] Vital Signs Vital Name Observation Time Observation Value Comments Source Systolic blood 2022-12-27 14:00:00 120 mm[Hg] Univer [facility]ity of pressure [facility] Diastolic blood 2022-12-27 14:00:00 87 mm[Hg] Unive rsity of pressure [facility] Heart rate 2022-12-27 14:00:00 102 /min [facility] Body height 2022-12-27 14:00:00 152.4 cm [facility] Body weight 2022-12-27 14:00:00 101.696 kg [facility] BMI 2022-12-27 14:00:00 43.79 kg/m2 [facility] Oxygen saturation in 2022-12-27 14:00:00 98 /min [facility]terial blood by [facility] Pulse oximetry Branch Systolic blood 2022-09-23 14:42:00 141 mm[Hg] Univer sity of pressure [facility] Diastolic blood 2022-09-23 14:42:00 74 mm[Hg] Unive rsity of pressure [facility] Heart rate 2022-09-23 14:42:00 76 /min [facility] Respiratory rate 2022-09-23 14:42:00 8 /[facility] 2022-09-23 14:42:00 100 /min [facility] blood by [facility] Body temperature 2022-09-23 14:07:00 36.5 Vika Univ ersity of [facility] Body height 2022-09-17 19:30:00 154.9 cm [facility] Body weight 2022-09-17 19:30:00 113.399 kg [facility] BMI 2022-09-17 19:30:00 47.24 kg/m2 [facility] Systolic blood 2022-09-23 12:46:00 144 mm[Hg] [facility] Diastolic blood 2022-09-23 12:46:00 68 mm[Hg] [facility] Heart rate 2022-09-23 12:46:00 90 /min [facility] Body temperature 2022-09-23 12:46:00 36.56 Vika [facility] Respiratory rate 2022-09-23 12:46:00 17 /min [facility] Oxygen saturation in 2022-09-23 12:46:00 95 /min [facility] Arterial blood by [facility] Pulse oximetry Branch Body height 2022-09-17 19:30:00 154.9 cm [facility] Body weight 2022-09-17 19:30:00 113.399 kg [facility] BMI 2022-09-17 19:30:00 47.24 kg/m2 [facility] Systolic blood 2022-09-19 16:02:00 125 mm[Hg] [facility] Diastolic blood 2022-09-19 16:02:00 81 mm[Hg] [facility] Heart rate 2022-09-19 16:02:00 79 /min [facility] Body temperature 2022-09-19 16:02:00 36.94 Vika [facility] Respiratory rate 2022-09-19 16:02:00 18 /min [facility] Body height 2022-09-19 16:02:00 154.9 cm [facility] Body weight 2022-09-19 16:02:00 104.327 kg [facility] BMI 2022-09-19 16:02:00 43.46 kg/m2 [facility] Oxygen saturation in 2022-09-19 16:02:00 98 /min [facility] Arterial blood by [facility] danielle Pulse oximetry Branch Body weight 2022-09-10 21:39:00 113.399 kg [facility] BMI 2022-09-10 21:39:00 47.24 kg/m2 [facility] Systolic blood 2022-06-12 18:06:00 155 mm[Hg] [facility] Diastolic blood 2022-06-12 18:06:00 84 mm[Hg] [facility] Heart rate 2022-06-12 18:06:00 90 /min [facility] Body temperature 2022-06-12 18:06:00 36 Vika [facility] Respiratory rate 2022-06-12 18:06:00 18 /min [facility] Oxygen saturation in 2022-06-12 18:06:00 94 /min [facility] Arterial blood by [facility] Pulse oximetry Branch Body weight 2022-06-11 09:20:00 113.49 kg [facility] BMI 2022-06-11 09:20:00 47.27 kg/m2 [facility] Body height 2022-06-11 01:52:00 154.9 cm [facility] Systolic blood 2022-04-19 13:32:00 127 mm[Hg] [facility] Diastolic blood 2022-04-19 13:32:00 67 mm[Hg] [facility] Heart rate 2022-04-19 13:32:00 88 /min [facility] Body height 2022-04-19 13:32:00 154.9 cm [facility] Body weight 2022-04-19 13:32:00 117.028 kg [facility] BMI 2022-04-19 13:32:00 48.75 kg/m2 [facility] Body height 2020-12-18 16:17:00 [facility] 2020-12-18 16:17:00 115[facility]667 [facility] BMI 2020-12-18 16:17:00 46.64 kg[facility]m2 [facility] height 2020-12-18 16:17:00 [facility]5 [facility] 2020-12-18 16:17:00 115.667 [facility] BMI 2020-12-18 16:17:00 46.64 kg/m2 [facility] Procedure Date / Time Performing Clinician Source Performed EXTERNAL PROVIDER - [facility] 2022-12-31 05:01:00 Doctor Unassigned, N o [facility] [place] TIME OR 2022-09-23 14:53:25 Kayla Lutz [facility] (NON-REPORTABLE) [facility] [place] TIME OR 2022-09-23 14:53:25 Kayla Lutz [facility] (NON-REPORTABLE) [facility] MAJOR JOINT INJECTION 2022-09-23 13:32:00 Kayla Lutz [facility] POCT GLUCOSE (AUTOMATED) 2022-09-23 12:50:00 Kayla Lutz [facility] POCT GLUCOSE (AUTOMATED) 2022-09-23 12:50:00 Kayla Lutz [facility] HB ABO GROUPING 2022-09-23 12:45:00 Kayla Lutz [facility] HB ABO GROUPING 2022-09-23 12:45:00 Kayla Lutz [facility] DAY SURGERY - [facility] 2022-09-23 06:01:00 Doctor Unassigned, No General acute hospital TROPONIN I 2022-09-19 15:38:00 Pedro Luis Rushing [place] o [facility] XR CHEST 2 VW 2022-09-19 14:38:32 Kayla Lutz [facility] ASSIGNMENT OF BENEFITS 2022-09-19 14:20:21 Doctor Unassigned, No [facility] EXTERNAL PROVIDER 2022-09-17 06:01:00 Doctor Unassigned, No [facility] ASSIGNMENT OF BENEFITS 2022-09-10 21:32:35 Doctor Unassigned, No [facility] POCT GLUCOSE (AUTOMATED) 2022-06-12 18:08:00 Annamaria Barker [facility] BASIC METABOLIC PANEL 2022-06-12 09:27:00 Jimmy Rowland [facility] (NA, K, CL, CO2, Medical Branch GLUCOSE, BUN, CREATININE, CA) CBC WITH DIFF 2022-06-12 09:27:00 Jimmy Rowland [facility] POCT GLUCOSE (AUTOMATED) 2022-06-12 07:56:00 Annamaria Barker [facility] POCT GLUCOSE (AUTOMATED) 2022-06-12 01:45:00 Annamaria Barker [facility] POCT GLUCOSE (AUTOMATED) 2022-06-11 22:56:00 Annamaria Barker [facility] POCT GLUCOSE (AUTOMATED) 2022-06-11 18:11:00 Annamaria Barker [facility] POCT GLUCOSE (AUTOMATED) 2022-06-11 14:05:00 Annamaria Barker [facility] PHOSPHORUS 2022-06-11 10:40:00 [facility] CREATINE KINASE 2022-06-11 10:40:00 [facility] AMYLASE 2022-06-11 10:40:00 [facility] LIPASE 2022-06-11 10:40:00 [facility] MAGNESIUM 2022-06-11 10:40:00 [facility] COMP. METABOLIC PANEL 2022-06-11 10:40:00 Robbi Muro [facility] ([id number]) [facility] CBC WITH DIFF 2022-06-11 10:40:00 [facility] GLYCOSYLATED HEMOGLOBIN 2022-06-11 10:40:[address] [facility] (A1C) [facility] N-TERMINAL PRO-BNP 2022-06-11 10:40:00 Robbi Muro [facility] POCT GLUCOSE (AUTOMATED) 2022-06-11 07:56:00 Annamaria Barker [facility] URINE CULTURE 2022-06-11 05:18:00 [facility] PROTHROMBIN TIME / INR 2022-06-11 03:24:00 Robbi Muro [facility] LACTIC ACID WHOLE BLOOD 2022-06-11 03:18:00 [facility] C-REACTIVE PROTEIN 2022-06-11 03:17:00 [facility] SEDIMENTATION RATE 2022-06-11 03:17:00 [facility] PROCALCITONIN 2022-06-11 03:17:00 [facility] US OVARY TORSION 2022-06-10 22:01:56 Brodie Clemons [facility] URINALYSIS 2022-06-10 19:14:00 Brodie Clemons [facility] CT ABDOMEN PELVIS WO 2022-06-10 18:36:36 Brodie Clemons [facility] CONTRAST [facility] PHOSPHORUS 2022-06-10 17:54:00 [facility] URIC ACID 2022-06-10 17:54:00 [facility] LIPASE 2022-06-10 17:54:00 Brodie Clemons [facility] MAGNESIUM 2022-06-10 17:54:00 [facility] FERRITIN SERUM 2022-06-10 17:54:00 [facility] HEPATIC FUNCTION PANEL 2022-06-10 17:54:00 Brodie Clemons [facility] ([id number]) (ALB,T.PRO,BILI [facility] Branch T,BU/BC,ALT,AST,ALK PHOS) BASIC METABOLIC PANEL 2022-06-10 17:54:00 Brodie Clemons [facility] (NA, K, CL, CO2, Medical Branch GLUCOSE, BUN, CREATININE, CA) IRON PANEL 2022-06-10 17:54:00 [facility] CBC WITH DIFF 2022-06-10 17:54:00 Brodie Clemons [facility] N-TERMINAL PRO-BNP 2022-06-10 17:54:00 Robbi Muro [facility] CONSENT/REFUSAL FOR 2022-06-10 17:38:54 Doctor Unassigned, No Un [facility] DIAGNOSIS AND TREATMENT Name Medical Branch Encounters Start End Encounter Admission Attending Care Care Encounter Source Date/Time Date/Time Type Type Clinicians Facility Department ID 2023-01-10 Outpatient Nathan STEFREMLC STLMLC [id number] Common 09:10:01 [place] [id number] [facility] 2023-01-07 Outpatient Nathan STEFREMLC STLMLC [id number] Common 11:56:01 [place] [id number] [facility] 2022-12-24 Outpatient Nathan STEFREMLC STLMLC [id number] Common 16:13:00 [place] [id number] [facility] 2022-01-04 Outpatient Shira LUTZ [facility] [id number] Univers 12:25:16 KAYLA [facility] 2021-08-29 Outpatient STLMLC STLMLC [id number] Common 12:51:44 [id number] [facility] 2021-08-29 Outpatient STLMLC STLMLC [id number] Common 11:59:56 [id number] [facility] 2021-08-29 Outpatient STLMLC STLMLC [id number] Common 11:28:05 [id number] [facility] 2021-08-29 Outpatient STLMLC STLMLC [id number] Common 11:27:12 [id number] [facility] 2021-06-01 Emergency [facility] [id number] Univers 02:46:06 [facility] 2020-12-18 Outpatient [facility] [id number] [place] 09:37:27 Health 2020-12-18 Outpatient [facility] [id number] [place] 09:37:27 [facility] 2020-12-18 Outpatient [facility] [id number] [place] 09:37:27 [facility] 2020-12-15 Outpatient [facility] [id number] [place] 12:03:34 Health 2020-12-15 Outpatient [facility] [id number] [place] 12:03:34 [facility] 2020-12-15 Outpatient [facility] [id number] MD 12:00:05 [facility] 2020-12-09 Outpatient STARR, [facility] [id number] MD 04:06:39 [facility] 2022-12-31 2022-12-31 Telephone [facility] [id number] [id number] Univers 00:00:00 00:00:00 Mayrarenuwanda JEANNA 350.1.13.10 ity of [facility] 4.2.7.2.[place] [id number] Ut dical NAL [address] [place] [address] 2022-12-31 2022-12-31 Orders Doctor TRANG 1.2.840.114 [id number] Univers 00:00:00 00:00:00 Only Unassigned, DIONICIO 350.1.13.10 ity of [place] [facility] 4.2.7.2.686 Blaze as [id number] [address] 2022-12-27 2022-12-27 Office [facility] 1.2.840.114 [id number] Univers 09:20:00 09:20:00 Visit Bree MEEKS 350.1.13.10 ity of [facility] 4.2.7.2.[place] [id number] Ut dical NAL [address] [place] [address] 2022-12-27 2022-12-27 Out[facility] [id number] Univers 09:20:00 09:12:16 BREE [place] o [facility] 2022-12-26 2022-12-26 Outpatient [facility] [id number] Univers 09:40:00 09:40:00 BREE [place] o [facility] 2022-09-23 2022-09-23 Outpatient [facility] SOR [id number] Univers 06:38:00 09:05:00 KAYLA hills of [facility] 2022-09-23 2022-09-23 [facility] 1.2.840.114 [id number] Univers 06:38:00 09:05:00 Encounter Kayla MEEKS 350.1.13.10 ity of [facility] 4.2.7.2.[place] SURGICAL [id number] [facility] 071 Branch 2022-09-23 2022-09-23 Surgery Bolivar [facility] 1.2.910.653 [id number] Univers 07:25:00 07:50:00 Kayla MEEKS 350.1.13.10 i ty of [place] 4.2.7.2.[place] SUR[place]ICAL [id number] [facility] 020 Branch 2022-09-23 2022-09-23 Orders Doctor TRANG 1.2.840.114 [id number] Univers 00:00:00 00:00:00 Only Unassigned, DIONICIO 350.1.13.10 ity of [place] [facility] 4.2.7.2.686 Blaze as [id number] [facility] 009 Branch 2022-09-20 2022-09-20 Telephone Keanu [facility] 1.2.123.197 [id number] Univers 00:00:00 00:00:00 [facility] 350.1.13.10 it y of [facility] 4.2.7.2.686 Blaze as GREGOR?BLEA [id number] Ut betsy KNEY [address] MEDICAL OFFICE BUILDING 2022-09-19 2022-09-19 Emergency X PEDRO LUIS RUSHING [facility] ERT 1 [id number] Univers 10:05:00 11:39:00 RUSHING PEDRO LUIS floyddahlia of [facility] 2022-09-19 2022-09-19 Emergency Сергей [facility] 1.2.466.324 [id number] Univers 10:05:00 11:39:00 Pedro Luis MEEKS 350.1.13.10 i ty of [facility] 4.2.7.2.686 [place] CAMPUS [id number] [facility] 084 Branch 2022-09-19 2022-09-19 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 Main [facility] 1.2.8 40.114 [id number] Univers 10:15:00 10:30:00 Visit Kayla Lutz 350.1.13.10 ity of [place] 4.2.7.2.[place] [id number] Ut betsy JEAN-BAPTISTE 353 Branch BUILDING 2022-09-19 2022-09-19 [facility] 1.2.840.114 [id number] Univers 08:22:49 10:04:00 Encounter Kayla MEEKS 350.1.13.10 ity of [place] 4.2.7.2.686 [place] [facility] [id number] [facility] [address] 2022-09-19 2022-09-19 Outpatient [facility] [id number] Univers 08:21:46 08:21:46 KAYLAKIRSTEN hills [facility] 2022-09-19 2022-09-19 Orders Doctor TRANG 1.2.840.114 [id number] Univers 00:00:00 00:00:00 Only Unassigned, DIONICIO 350.1.13.10 ity of [place] [facility] 4.2.7.2.686 Blaze as [phone] [facility] [address] 2022-09-17 2022-09-17 Orders Doctor TRANG 1.2.840.114 [id number] Univers 00:00:00 00:00:00 Only Unassigned, DIONICIO 350.1.13.10 ity of [place] [facility] 4.2.7.2.686 Blaze as [id number] [facility] [address] 2022-09-16 2022-09-16 Prep For [facility] 1.2.840.114 [id number] Univers 00:00:00 00:00:00 Surgery Kayla Serra [facility] 350.1.13.10 it y of [facility] 4.2.7.2.686 Blaze as GREGOR?BLEA [id number] Ut betsy PAREDES [address] MEDICAL OFFICE BUILDING 2022-09-10 2022-09-10 Outpatient R [facility] [id number] Univers 16:30:00 23:59:00 BERNICE reinier [facility] 2022-09-10 2022-09-10 Office [facility] 1.2.840.114 [id number] Univers 16:00:00 16:15:00 Visit Bernice Singer [facility] 350.1.13.10 it y of [facility] 4.2.7.2.686 Blaze as GREGOR?BLEA [id number] Ut betsy PAREDES [address] MEDICAL OFFICE BUILDING 2022-09-10 2022-09-10 Orders Doctor TRANG 1.2.840.114 [id number] Univers 00:00:00 00:00:00 Only Unassigned, DIONICIO 350.1.13.10 ity of [place] [facility] 4.2.7.2.686 Blaze as [id number] [facility] [address] 2022-09-10 2022-09-10 Telephone [facility] 1.2.729.483 [id number] Univers 00:00:00 00:00:00 Bernice S HEALTH 350.1.13.10 it y of [facility] 4.2.7.2.686 Blaze as GREGOR?BLEA [id number] Ut betsy PAREDES [address] [place] [address] 2022-09-09 2022-09-09 Telephone [facility] 1.2.760.727 [id number] Univers 00:00:00 00:00:00 Bernice S HEALTH 350.1.13.10 it y of [place] 4.2.7.2.686 Blaze as GREGOR?BLEA [id number] Ut betsy FERNANDE[address] 2022-06-13 2022-06-13 Transition TOM Cornejo 1.2.840.114 [id number] Univers 00:00:00 00:00:00 of Care Chelo SIMS 350.1.13.10 it y of [place]2.7.2.[place] [id number] [facility] [address] 2022-06-10 2022-06-12 Outpatient X MJ [facility] [id number] Univers 11:37:00 16:00:00 ANNAMARIA hills of [facility] 2022-06-10 2022-06-12 Emergency Brodie Clemons [facility] 1.2.840.1 [id number] Univers 11:37:00 16:00:00 Annamaria Barker 350.1.13.10 ity of [place] 4[place]2.7.2.686 [place] [id number] [facility] [address] 2022-04-19 2022-04-19 Outpatient R KEANU [facility] [id number] Univers 08:55:00 23:59:00 [facility] 2022-04-19 2022-04-19 Outpatient R [facility] [id number] Univers 08:55:00 23:59:00 [facility] 2022-04-19 2022-04-19 Office [facility] 1.2.840.114 [id number] Univers 08:45:00 09:00:00 Visit Bernice [facility] 350.1.13.10 it y of [facility] 4.2.7.2.686 Blaze as GREGOR?BLEA [id number] Ut ag[address] OFFICE [facility] 2022-02-25 2022-02-25 Outpatient R [facility] [id number] Univers 15:15:00 15:15:00 [facility] 2022-02-21 2022-02-21 Outpatient Shira [facility] [id number] Univers 10:45:00 10:45:00 [facility] 2022-02-18 2022-02-18 Outpatient R [facility] [id number] Univers 10:30:00 10:30:00 CHILVANA ity o f [facility] 2022-01-18 2022-01-18 Outpatient R H[facility]AB[facility] [id number] Univers 10:00:00 10:00:00 CLAYTON [facility] 2022-01-17 2022-01-17 [facility] 1.2.600.732 [id number] Univers 00:00:00 00:00:00 Kayla L [facility] 350.1.13.10 it y of [place] 4.2.7.2.686 Blaze as GREGOR?BLEA [id number] Ut betsy [address] OFFICE [facility] 2022-01-14 2022-01-14 Outpatient R [facility] SOR [id number] Univers 06:59:00 09:15:00 KAYLA [facility] 2022-01-14 2022-01-14 [facility] 1.2.840.114 [id number] Univers 06:59:00 09:15:00 Encounter Kayla [facility] 350.1.13.10 ity of [place] 4.2.7.2.686 [place] SURGICAL [id number] [facility] 071 [address] 2022-01-14 2022-01-14 Surgery [facility] 1.2.734.795 [id number] Univers 08:20:00 09:12:00 Kayla Ponce MEEKS 350.1.13.10 i ty of [facility] 4.2.7.2.686 [place] SURGICAL [id number] [facility] 020 Branch 2022-01-14 2022-01-14 Anesthesia Bharath Padgett [facility] 1.2.840.11 [id number] Univers 08:25:00 08:39:00 Event Trang Hunt 350.1.13.10 ity of [place] 4.2.7.2.686 [place] SURGICAL [id number] [facility] 020 Branch 2022-01-14 2022-01-14 Orders Doctor TRANG 1.2.840.114 [id number] Univers 00:00:00 00:00:00 Only Unassigned, DIONICIO 350.1.13.10 ity of [place] [facility] 4.2.7.2.686 Blaze as [id number] [facility] 009 Branch 2022-01-11 2022-01-11 Hospital [facility] 1.2.840.114 [id number] Univers 07:39:32 23:59:00 Encounter Kalya MEEKS 350.1.13.10 ity of [facility] 4.2.7.2.686 [place] CAMPUS [id number] [facility] 807 Branch 2022-01-11 2022-01-11 Outpatient R [facility] [id number] Univers 07:39:18 23:59:00 KAYLA ity of [facility] 2022-01-11 2022-01-11 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 Main [facility] 1.2.8 40.114 [id number] Univers 08:30:00 08:45:00 Visit Kayla Lutz 350.1.13.10 ity of [facility] 4.2.7.2.686 [place] [id number] Ut dicbernard JEAN-BAPTISTE 353 [facility] 2022-01-11 2022-01-11 Laboratory Only, Adc Test [facility] 1.2.840. 114 [id number] Univers 08:15:00 08:30:00 Only Kayla Lutz 350.1.13.10 ity of [place] 4.2.7.2.686 [place] [facility] [id number] [address] 2022-01-11 2022-01-11 Outpatient R BOLIVAR [facility] [id number] Univers 08:15:00 08:15:00 KAYLA [facility] 2022-01-11 2022-01-11 Telephone Bolivar [facility] 1.2.840.114 [id number] Univers 00:00:00 00:00:00 Kayla Serra [facility] 350.1.13.10 it y of [place] 4.2.7.2.686 Blaze as GREGOR?BLEA [id number] Ut dicbernard PAREDES [address] [place] [address] OFFICE [facility] 2022-01-04 2022-01-04 Office Keanu [facility] 1.2.840.114 [id number] Univers 11:15:00 11:30:00 Visit [facility] 350.1.13.10 it y of [facility] 4.2.7.2.686 Blaze as GREGOR?BLEA [id number] Ut dicbernard PAREDES [address] [place] [address] OFFICE [facility] 2022-01-04 2022-01-04 Outpatient Shira COLUNGA [facility] [id number] Univers 11:15:00 11:15:00 [facility] 2022-01-04 2022-01-04 Outpatient Shira COLUNGA [facility] [id number] Univers 11:15:00 11:15:00 [facility] 2022-01-04 2022-01-04 Prep For Bolivar [facility] 1..840.114 [id number] Univers 00:00:00 00:00:00 Surgery Kayla Serra [facility] 350.1.13.10 it y of [place] 4.2.7.2.686 Blaze as GREGOR?BLEA [id number] Ut dicbernard PAREDES [address] [place] [address] OFFICE [facility] 2021-12-20 2021-12-20 Outpatient [facility] [id number] Univers 10:00:00 10:00:00 KAYLA hills [facility] 2021-12-11 2021-12-11 Telephone [facility] 1.2.840.114 [id number] Univers 00:00:00 00:00:00 Kayla Serra HEALTH 350.1.13.10 it y of [facility] 4.2.7.2.686 Blaze as GREGOR?BLEA [id number] Ut agbernard LINDA [address] [facility] OFFICE [facility] 2021-12-07 2021-12-07 Outpatient R [facility] [id number] Univers 10:23:58 23:59:00 BERNICE hills [facility] 2021-12-07 2021-12-07 Hospital [facility] 1.2.840.114 [id number] Univers 10:23:58 23:59:00 Encounter Bernice S [place] 350.1.13.10 ity [facility] 4.2.7.2.686 [place] [facility] [id number] [address] 2021-11-30 2021-11-30 Outpatient R [facility] [id number] Univers 10:45:00 11:13:44 BERNICEVALERIA hills [facility] 2021-11-30 2021-11-30 Office [facility] 1.2.840.114 [id number] Univers 10:45:00 11:13:44 Visit Bernice [facility] 350.1.13.10 it y of [facility] 4.2.7.2.686 Blaze as GREGOR?BLEA [id number] Ut agbernard PAREDES [address] [place] [address] OFFICE [facility] 2021-11-30 2021-11-30 Outpatient R [facility] [id number] Univers 10:45:00 11:13:44 BERNICE hills [facility] 2021-11-28 2021-11-28 Telephone [facility] 1.2.840.114 [id number] Univers 00:00:00 00:00:00 Kayla Serra HEALTH 350.1.13.10 it y of [place] 4.2.7.2.686 Blaze as GREGOR?BLEA [id number] Ut betsy PAREDES [address] [facility] OFFICE [facility] 2021-11-28 2021-11-28 Orders Doctor TRANG 1.2.840.114 [id number] Univers 00:00:00 00:00:00 Only Unassigned, DIONICIO 350.1.13.10 ity of [place] [facility] 4.2.7.2.686 Blaze as [id number] [address] 2021-11-27 2021-11-27 Telephone [facility] 1.2.840.114 [id number] Univers 00:00:00 00:00:00 Kayla L HEALTH 350.1.13.10 it y of [place] 4.2.7.2.686 Blaze as GREGOR?BLEA [id number] Ut betsy PAREDES 198 [facility] 2021-11-22 2021-11-22 Orders Doctor TRANG 1.2.840.114 [id number] Univers 00:00:00 00:00:00 Only Unassigned, DIONICIO 350.1.13.10 ity of [place] [facility] 4.2.7.2.686 Blaze as [id number] [address] 2021-11-21 2021-11-21 Telephone [facility] 1.2.840.114 [id number] Univers 00:00:00 00:00:00 Kayla L HEALTH 350.1.13.10 it y of [place] 4.2.7.2.686 Blaze as GREGOR?BLEA [id number] Ut betsy PAREDES [address] [place] [address] 2021-11-21 2021-11-21 Telephone [facility] 1.2.840.114 [id number] Univers 00:00:00 00:00:00 Kayla L HEALTH [id number] it y of [place] [id number] Blaze as GREGOR?BLEA [phone] Ut betsy PAREDES [address] [facility] OFFICE [facility] 2021-11-19 2021-11-19 Telephone [facility] [id number] Univers 00:00:00 00:00:00 Bernice S HEALTH [id number] it y of [place] [id number] Blaze as GREGOR?BLEA [phone] Me betsy PAREDES [address] [facility] OFFICE [facility] 2021-11-19 2021-11-19 [facility] [id number] Univers 00:00:00 00:00:00 Kayla L HEALTH [id number] it y of [place] [id number] Blaze as GREGOR?BLEA [phone] Me betsy PAREDES [address] [facility] OFFICE [facility] 2021-11-12 2021-11-12 Telephone [facility] 1.2.840.114 [id number] Univers 00:00:00 00:00:00 Kayla L HEALTH [id number] it y of [place] 4.2.7.2.686 Blaze as GREGOR?BLEA [phone] Ut betsy PAREDES [address] [facility] OFFICE [facility] 2021-10-29 2021-10-29 Telephone [facility] 1.2.840.114 [id number] Univers 00:00:00 00:00:00 Kayla L HEALTH [id number] it y of [place] [id number] Blaze as GREGOR?BLEA [phone] Ut betsy PAREDES [address] [facility] OFFICE [facility] 2021-10-26 2021-10-26 Telephone [facility] 1.2.840.114 [id number] Univers 00:00:00 00:00:00 Kayla L HEALTH 350.1.13.10 it y of [place] 4.2.7.2.686 Blaze as GREGOR?BLEA [phone] Ut betsy PAREDES 198 [facility] OFFICE [facility] 2021-10-24 2021-10-24 Outpatient R KEANU [facility] [id number] Univers 09:30:00 10:20:40 BERNICE hills of [facility] 2021-10-24 2021-10-24 Office Keanu [facility] 1.2.840.114 [id number] Univers 09:30:00 10:20:40 Visit [facility] 350.1.13.10 it y of [place] 4.2.7.2.686 Blaze as GREGOR?BLEA [phone] Ut betsy PAREDES [address] [place] [address] OFFICE [facility] 2021-10-24 2021-10-24 Outpatient R KEANU [facility] [id number] Univers 09:30:00 10:20:40 BERNICE ity of [facility] 2021-10-24 2021-10-24 [facility] 1.2.840.114 [id number] Univers 09:30:00 10:20:40 Visit Bernice S HEALTH 350.1.13.10 it y of [place] 4.2.7.2.686 Blaze as GREGOR?BLEA [phone] Ut betsy PAREDES [address] [place] [address] OFFICE [facility] 2021-10-19 2021-10-19 Telephone [facility] 1.2.162.485 [id number] Univers 00:00:00 00:00:00 Bernice S HEALTH 350.1.13.10 it y of [place] 4.2.7.2.686 Blaze as GREGOR?BLEA [phone] Ut betsy PAREDES [address] [place] [address] 2021-10-18 2021-10-18 Allred [facility] 1.2.862.334 [id number] Univers 00:00:00 00:00:00 Bernice S HEALTH 350.1.13.10 it y of [place] 4.2.7.2.686 Blaze as GREGOR?BLEA [phone] Ut betsy PAREDES [address] [place] [address] 2021-10-12 2021-10-12 Outpatient R RENÉE AGUILERA [facility] [id number] Univers 14:00:00 15:00:16 RENÉE AGUILERA ity [facility] 2021-10-02 2021-10-02 [facility] 1.2.020.877 [id number] Univers 00:00:00 00:00:00 Bernice S HEALTH 350.1.13.10 it y of [place] 4.2.7.2.686 Blaze as GREGOR?BLEA [phone] Ut betsy PAREDES [address] [place] [address] OFFICE [facility] 2021-10-02 2021-10-02 Orders Doctor COSTELLO 1.2.840.114 [id number] Univers 00:00:00 00:00:00 Only Unassigned, DIONICIO 350.1.13.10 ity of [place] [facility] 4.2.7.2.686 Blaze as [phone] [address] 2021-09-27 2021-09-27 Orders Doctor TRANG 1.2.840.114 [id number] Univers 00:00:00 00:00:00 Only Unassigned, DIONICIO 350.1.13.10 ity of [place] [facility] 4.2.7.2.686 Blaze as [phone] [address] 2021-09-24 2021-09-24 Outpatient [facility] [id number] Univers 15:50:00 23:59:00 [facility] 2021-07-02 2021-07-02 (TEL) [facility] [id number] Co mmon 00:00:00 00:00:00 [facility] 2021-06-27 2021-06-27 Outpatient Sh[facility] [id number] Univers 14:15:00 14:15:00 [facility] 2021-06-27 2021-06-27 Outpatient Shira [facility] [id number] Univers 14:15:00 14:15:00 [facility] 2021-06-27 2021-06-27 Office [facility] 1.2.840.114 [id number] Univers 13:39:57 13:54:57 Visit Bernice [facility] 350.1.13.10 it y [place] 4.2.7.2.686 Blaze as GREGOR?BLEA [phone] Ut ag[address] MEDICAL OFFICE BUILDING 2021-06-26 2021-06-26 Outpatient Shira [facility] [id number] Univers 15:45:00 15:45:00 [facility] 2021-06-26 2021-06-26 Outpatient Shira [facility] [id number] Univers 15:45:00 15:45:00 [facility] 2021-06-25 2021-06-25 Telephone [facility] [id number] Univers 00:00:00 00:00:00 [facility] 350.1.13.10 i ty [facility] 4.2.7.2.[place] [phone] Ut dicbernard JEAN-BAPTISTE 198 [facility] 2021-05-23 2021-05-23 Telephone [facility] 1.2.381.285 [id number] Univers 00:00:00 00:00:00 Bernice [facility] 350.1.13.10 it y of [place] 4.2.7.2.686 Blaze as Gregor?Blea [phone] Ut dicbernard paredes 198 [facility] Office [facility] 2021-05-22 2021-05-22 [facility] 1.2.840.114 [id number] Univers 13:00:00 23:59:00 Encounter Bernice [facility] 350.1.13.10 ity of [place] 4.2.7.2.686 Lbaze as Gregor?Blea [phone] Ut dicbernard paredes 809 [facility] 2021-05-22 2021-05-22 Outpatient [facility] [id number] Univers 16:15:00 14:56:[address] [facility] 2021-05-22 2021-05-22 Outpatient [facility] [id number] Univers 16:15:00 14:56:[address] [facility] 2021-05-22 2021-05-22 Office [facility] 1.2.840.114 [id number] Univers 12:47:56 14:56:21 Visit Bernice [facility] 350.1.13.10 it y of [place] 4.2.7.2.686 Blaze as Gregor?Blea [phone] Ut dicbernard paredes 198 [facility] Office [facility] 2021-05-22 2021-05-22 Orders Doctor TRANG 1.2.840.114 [id number] Univers 00:00:00 00:00:00 Only Unassigned, DIONICIO 350.1.13.10 ity of [place] [facility] 4.2.7.2.686 Blaze as [phone] [address] 2021-04-23 2021-04-23 Outpatient Shira RESENDIZ [facility] [id number] Univers 10:10:00 10:10:00 ANDREW hills [facility] 2021-04-23 2021-04-23 Imm/Inj Nurse, Adc Pob Immunization [facility] 1.2.840.114 [id number] [facility] 10:00:06 10:00:17 Visit Andrew Resendiz Jeanna 350.1.13 .10 ity [facility] 4.2.7.2.[place] [phone] Ut dical nal [address] [place] [address] 2021-04-02 2021-04-02 Outpatient R ZION [facility] [id number] [facility] 14:40:00 14:40:00 ANDREW dahlia [facility] 2021-04-02 2021-04-02 Imm/Inj Nurse, Adc Pob Immunization [facility] 1.2.840.114 [id number] [facility] 13:41:25 13:41:44 Visit ZionAndrew Jimmy Meeks 350.1.13 .10 [facility] 4.2.7.2.[place] [phone] Ut dical nal [address] [place] [address] 2021-01-26 2021-01-26 Refill Starr, NAISHA 1.2.840.114 [id number] UT 00:00:00 00:00:00 Lacey [facility] 350.1.13.58 [facility] Lillie MULTI 9.2.7.2.686 SPECIALTY [phone] CLINIC 1 2021-01-26 2021-01-26 Refill Starr, UTP 1.2.840.114 [id number] 00:00:00 00:00:00 Lacey [facility] 350.1.13.58 Lill[place] MULTI 9.2.7.2.686 SPECIALTY [id number] CLINIC 1 2020-12-18 2020-12-18 Office Noemi-Baldomero UTP [facility] 1.2.840.114 [id number] MD 09:22:21 12:11:17 Visit PAUL [facility]ward 350.1.13.58 [facility] Jonas [facility] 9.2.7.2.686 [place] 6 [phone] 2020-12-18 2020-12-18 Office Li-Baldomero UTP [facility] 1.2.840.114 [id number] 09:22:21 12:11:17 Visit PAUL Hayward 350.1.13.58 [facility] 9.2.7.2.686 [place] [id number] 7 2020-09-06 2020-09-06 (TEL) STLMLC [facility] [id number] Co mmon 00:00:00 00:00:00 [facility] 2020-07-20 2020-07-20 (TEL) STLMLC STLMLC [id number] Co mmon 00:00:00 00:00:00 [facility] 2020-07-12 2020-07-12 (TEL) STLMLC STLMLC [id number] Co mmon 00:00:00 00:00:00 [facility] 2020-06-21 2020-06-21 Outpatient STLMLC STL[facility] [id number] Common 00:00:00 00:00:00 [facility] 2020-06-12 2020-06-12 Outpatient STLMLC STLMLC [id number] Common 00:00:00 00:00:00 [facility] 2020-06-06 2020-06-06 Outpatient STLMLC STLMLC [id number] Common 00:00:00 00:00:00 [facility] 2020-01-26 2020-01-26 Emergency Lazar, [facility] 1.2.324.413 [id number] [facility] 20:05:19 21:04:00 Calin Meeks 350.1.13.10 i ty of [place] 4.2.7.2.686 [facility] [phone] [address] 2020-01-26 2020-01-26 Emergency Lazar, [facility] 1.2.599.104 [id number] 20:05:19 21:04:00 Calin Meeks 350.1.13.10 [place] 4.2.7.2.686 [place] [phone] [facility] 2020-01-26 2020-01-26 Orders Doctor TRANG 1.2.840.114 [id number] Univers 00:00:00 00:00:00 Only Unassigned, DIONICIO 350.1.13.10 ity of [place] [facility] 4.2.7.2.686 Blaze as [phone] [place] [address] [place] 2020-01-26 2020-01-26 Orders Doctor TRANG 1.2.840.114 [id number] 00:00:00 00:00:00 Only Unassigned, DIONICIO 350.1.13.10 [place] [facility] 4.2.7.2.686 [id number] 009 2020-01-20 2020-01-20 Outpatient [id number] Common 08:00:00 08:00:00 [facility] 2020-01-20 2020-01-20 Orders Doctor TRANG 1.2.840.114 [id number] Univers 00:00:00 00:00:00 Only Unassigned, DIONICIO 350.1.13.10 ity of [place] [facility] 4.2.7.2.686 Blaze as [phone] [address] 2020-01-20 2020-01-20 Orders Doctor TRANG 1.2.840.114 [id number] 00:00:00 00:00:00 Only Unassigned, DIONICIO 350.1.13.10 [place] [facility] 4.2.7.2.686 [id number] 009 Results Test Description Test Time Test Comments Results Result Comments Source Type and Screen - This is a pre-surgical type and scre en. ONCE 2022-09-23 13:38:39 KUNAL Test Item Value Reference Range Interpretation Comme nts ABO & RH (test code = 20) O Positive Pe rformed at [facility] Laboratory Services - [facility] Blood [address] [place], [place] [address]Toll Free: [phone] A No. [id number] IAT (test code = 1185) Negative Perfo rmed at [facility] Laboratory [facility] - [facility] Blood [address]Toll Free: [phone] A No. [id number] [facility] - This is a pre-surgical type and screen. ONCE [id number] 13:38:39 Test Item Value Reference Range Interpretation Comments ABO & RH (test code O Positive Performe d at [facility] = 20) Laboratory Serv [facility] Blood Bank1 [address] [place] [address]Fbxi Free: [phone] A No. [id number] IAT (test code = Negative Performed a t [facility] 1185) Laboratory Serv [facility] Blood Bank1 [address] [place] [address]Pnjp Free: [phone] A No. [id number] [facility] GLUCOSE (AUTOMATED)2022-09-23 12:53:02 Test Item Value Reference Range Interpretation Comments POCT GLU (test code = 3731659888) 105 mg/dL 70-110 Lab Interpretation (test code = Normal 36412-4) [facility] GLUCOSE (AUTOMATED)2022-09-23 12:53:02 Test Item Value Reference Range Interpretation Comments POCT GLU (test code = 7020349094) 105 mg/dL 70-110 Lab Interpretation (test code = Normal 86084-5) [facility] [id number] 17:00:16 Test Item Value Reference Range Interpretation Comments TROPONIN I (test code = 0.003 ng/mL <=0.034 6217779774) SRIRAM (test code = SRIRAM) Reference (Normal) [...] biotin. Lab Interpretation Normal (test code = 32890-1) [facility] GLUCOSE (AUTOMATED)2022-06-12 18:17:12 Test Item Value Reference Range Interpretation Comments POCT GLU (test code = 9665263694) 161 mg/dL 70-110 H Lab Interpretation (test code = Abnormal 62470-4) [facility] GLUCOSE (AUTOMATED)2022-06-12 08:00:25 Test Item Value Reference Range Interpretation Comments POCT GLU (test code = 9579535144) 122 mg/dL 70-110 H Lab Interpretation (test code = Abnormal 32794-7) [facility] GLUCOSE (AUTOMATED)2022-06-12 01:58:54 Test Item Value Reference Range Interpretation Comments POCT GLU (test code = 9999013549) 124 mg/dL 70-110 H Lab Interpretation (test code = Abnormal 32678-1) [facility] GLUCOSE (AUTOMATED)2022-06-11 22:59:46 Test Item Value Reference Range Interpretation Comments POCT GLU (test code = 9166752577) 115 mg/dL 70-110 H Lab Interpretation (test code = Abnormal 32589-6) [facility] GLUCOSE (AUTOMATED)2022-06-11 22:59:46 Test Item Value Reference Range Interpretation Comments POCT GLU (test code = 6583911208) 104 mg/dL 70-110 Lab Interpretation (test code = Normal 08817-9) [facility] GLUCOSE (AUTOMATED)2022-06-11 14:11:49 Test Item Value Reference Range Interpretation Comments POCT GLU (test code = 9972540779) 91 mg/dL 70-110 Lab Interpretation (test code = Normal 15355-0) [facility] [id number] 09:07:50 Test Item Value Reference Range Interpretation Comments IRON (test code = 2645440695) 39 ug/dL 50-160 L TIBC (test code = 3846977424) 346 ug/dL 250-410 % FE SAT (test code = 3838597296) 11 % 20-50 L Lab Interpretation (test code = Abnormal 85381-9) [facility] HospitalFERRITIN [id number] 08:27:06 Test Item Value Reference Range Interpretation Comments FERRITIN (test code = 7.5 ng/mL 11.0-264.0 L 7725180781) SRIRAM (test code = SRIRAM) Biotin has been reported to cause a negative bias, interpret results relative to patient's use of biotin. Lab Interpretation (test Abnormal code = 08361-4) [facility] HospitalN-TERMINAL [id number] 08:01:40 Test Item Value Reference Range Interpretation Comments NT-proBNP (test code 39 pg/mL See_Comment [Autom ated = 2817264154) message] The system which generated this result transmitted reference range : <=125. The reference range was not used to interpret this result as normal/abnormal . SRIRAM (test code = SRIRAM) Biotin has been reported to cause a negative bias, interpret results relative to patient's use of biotin. Lab Interpretation Normal (test code = 79558-9) [facility]AUT[facility])2022-06-11 07:59:15 Test Item Value Reference Range Interpretation Comments POCT GLU (test code = 4881530112) 141 mg/dL 70-110 H Lab Interpretation (test code = Abnormal 76191-5) [facility]UM2022-11-08 07:59:15 Test Item Value Reference Range Interpretation Comments MAGNESIUM (test code = 3964397748) 1.6 mg/dL 1.7-2.4 L Lab Interpretation (test code = Abnormal 50603-9) [facility]PHOSPHORUS2022-11-08 07:59:10 Test Item Value Reference Range Interpretation Comments PHOSPHORUS (test code = 8350123178) 2.6 mg/dL 2.5-5.0 Lab Interpretation (test code = Normal 49037-3) [facility] HospitalURIC [id number] 07:59:05 Test Item Value Reference Range Interpretation Comments URIC ACID (test code = 0175222919) 3.0 mg/dL 2.9-6.0 Lab Interpretation (test code = Normal 56627-6) [facility] (NA, K, CL, CO2, GLUCOSE, BUN, CREATININE, CA)2022-06-10 18:34:39 Test Item Value Reference Range Interpretation Comments NA (test code = 139 mmol/L 135-145 0340999382) K (test code = 4.2 mmol/L 3.5-5.0 4917043038) CL (test code = 105 mmol/L 98-108 6325575274) CO2 TOTAL (test code 28 mmol/L 23-31 = 3528541778) AGAP (test code = 2-16 8774524401) BUN (test code = 15 mg/dL 7-23 4605917415) GLUCOSE (test code = 106 mg/dL 70-110 0520907983) CREATININE (test code 0.75 mg/dL 0.50-1.04 = 7239910987) CALCIUM (test code = 9.0 mg/dL 8.6-10.6 1111622264) eGFR (test code = mL/min/1.73m2 4865425173) SRIRAM (test code = SRIRAM) Association of [...] or urine or abnormalities in imaging tests). [facility] HospitalHEPATIC FUNCTION PANEL (00824) (ALB,T.PRO,BILI T,BU/BC,ALT,AST,ALK PHOS)2022-06-10 18:34:39 Test Item Value Reference Range Interpretation Comments TOTAL BILI (test code = 5190488380) 0.4 mg/dL 0.1-1.1 BILI UNCON (test code = 6415928317) 0.2 mg/dL 0.1-1.1 BILI CONJ (test code = 2987570421) 0.0 mg/dL 0.0-0.3 T PROTEIN (test code = 4098383693) 6.9 g/dL 6.3-8.2 ALBUMIN (test code = 2047776508) 4.0 g/dL 3.5-5.0 ALK PHOS (test code = 2513441328) 139 U/L 34-122 H ALTv (test code = 1742-6) 23 U/L 5-35 AST(SGOT) (test code = 0008248894) 21 U/L 13-40 Lab Interpretation (test code = Abnormal 77742-6) [facility] HospitalLIPASE2022-11-07 18:34:39 Test Item Value Reference Range Interpretation Comments LIPASE (test code = 3628439049) 108 U/L 0-220 Lab Interpretation (test code = Normal 20816-2) [facility] WITH [id number] 18:27:20 Test Item Value Reference Range Interpretation Comments WBC (test code = See_Comment [Automated message] 9890-2) The system Phyl[employer] generated this result transmitted ref erence range: 4.30 - 1 1.10 10*3/?L. The re ference range was not u sed to interpret this result as normal/abnor mal. RBC (test code = See_Comment [Automated message] 699-8) The system Phyl[employer] generated this result transmitted ref erence range: [...] RDW-SD (test code 48.3 fL 39.0-49.9 = 45884-5) RDW-CV (test code 15.4 % 12.0-15.5 = 788-0) PLT (test code = See_Comment [Automated message] 777-3) The system whic h generated this result transmitted ref erence range: 166 - 35 8 10*3/?L. The re ference range was not u sed to interpret this result as normal/abnor mal. MPV (test code = 10.4 fL 9.5-12.9 59399-2) NRBC/100 WBC (test See_Comment [Automat ed message] code = 2092765198) The syste m which generated this result transmitted ref erence range: 0.0 - 10 .0 /100 WBCs. The refer ence range was not u sed to interpret this result as normal/abnor mal. NRBC x10^3 (test See_Comment [Automated message] code = 1910703264) The syste m which generated this result transmitted ref erence range: 10*3/?L. The reference range was not used to interpr et this result as normal/abnormal . GRAN MAT (NEUT) % 62.1 % (test code = 770-8) IMM GRAN % (test 0.50 % code = 1514964830) LYMPH % (test code 29.1 % = 736-9) MONO % (test code 7.3 % = 5905-5) EOS % (test code = 0.6 % 713-8) BASO % (test code 0.4 % = 706-2) GRAN MAT 5.30 10*3/uL 1.88-7.09 x10^3(ANC) (test code = 9014553028) IMM GRAN x10^3 0.04 10*3/uL 0.00-0.06 (test code = 5257668391) LYMPH x10^3 (test 2.48 10*3/uL 1.32-3.29 code = 731-0) MONO x10^3 (test 0.62 10*3/uL 0.33-0.92 code = 742-7) EOS x10^3 (test 0.05 10*3/uL 0.03-0.39 code = 711-2) BASO x10^3 (test 0.03 10*3/uL 0.01-0.07 code = 704-7) [facility]"
[2023-02-09 01:24] LABS: Lymphocytes % 24.5 % (15.3-44.8); MCV 96.2 fL (80-100); RBC Red Blood Cell Count 3.63 M/uL (3.86-4.86)
[2023-02-09] MEDS ORDERED: ASPIRIN 81 MG CHEWABLE TABLET ONE (01:28)
[2023-02-09] MEDS ORDERED: MORPHINE 4 MG/ML SYR ONE (01:28)
[2023-02-09] MEDS ORDERED: ONDANSETRON 4 MG/2 ML VIAL ONE (01:28)
[2023-02-09 01:43] LABS: ALT/SGPT 21 U/L (13-56); AST/SGOT 8 U/L (15-37); Albumin 3.1 g/dL (3.4-5.0); Alkaline Phosphatase 122 U/L (45-117); BUN Blood Urea Nitrogen 34 mg/dL (7-18); Bicarbonate 27 mEq/L (21-32); Bilirubin Direct 0.1 mg/dL (0-0.2); Bilirubin Indirect, Calculated 0.1 mg/dL (0.2-0.8); Bilirubin Total 0.2 mg/dL (0.2-1.0); Glomerular Filtration Rate 33 ml/min (=/>90); Glucose Level 100 mg/dL (74-106); Magnesium 1.9 mg/dL (1.6-2.4); NT PRO-BNP 56 pg/mL (<125); Protein, Total 7.2 g/dL (6.4-8.2); Sodium Level 141 mEq/L (136-145)
[2023-02-09 01:56] LABS: Troponin High Sensitivity < 3.0 pg/mL (<58.9)
[2023-02-09] MEDS ORDERED: LORazepam 2 MG/ML VIAL ONE (02:09)
--- NOTE | 2023-02-09 06:43 | ER ---
Nurse's Notes [facility] Name: Jazmín Perez Age: 52 yrs Sex: Female : 1970 Arrival Date: 02/09/2023 Time: 00:37 Bed 17 Private MD: Diagnosis: Chest pain, unspecified;Acute Renal Injury (1.81 Cr) Presentation: 02/09 00:47 Chief complaint: Patient states: I have a horrible chest pain that started an hour and ha1 a half ago. Also, I feel shortness of breath. 00:47 Coronavirus screen: Vaccine status:. Ebola Screen: No symptoms or risks identified at ha1 this time. Initial Sepsis Screen: Does the patient meet any 2 criteria? No. Patient's initial sepsis screen is negative. Does the patient have a suspected source of infection? No. Patient's initial sepsis screen is negative. Risk Assessment: Do you want to hurt yourself or someone else? Patient reports no desire to harm self or others. Onset of symptoms was February 09, 2023. 00:47 Method Of Arrival: Wheelchair ha1 00:47 Acuity: LOU 3 ha1 Triage Assessment: 00:47 General: Appears uncomfortable, Behavior is calm, cooperative. Pain: Complains of pain ha1 in chest Pain does not radiate. Pain currently is 10 out of 10 on a pain scale. 00:47 Neuro: Level of Consciousness is awake, alert, obeys commands, Oriented to person, ha1 place, time, situation. Cardiovascular: Reports chest pain, Heart tones S1 S2 present Patient's skin is warm and dry. 00:47 Respiratory: Airway is patent Respiratory effort is even, unlabored, Respiratory ha1 pattern is regular, symmetrical. GI: Abdomen is round non-distended, obese, Bowel sounds present X 4 quads. : No signs and/or symptoms were reported regarding the genitourinary system. Derm: Skin is pink, warm \T\ dry. Musculoskeletal: Circulation, motion, and sensation intact. Range of motion: intact in all extremities. Historical: - Allergies: 00:47 Codeine; ha1 - PMHx: 00:47 allergies; Anxiety; Diabetes - NIDDM; ha1 - Immunization history:: Adult Immunizations unknown. - Social history:: Smoking status: Patient denies any tobacco usage or history of. Screenin:47 Abuse screen: Denies threats or abuse. Denies injuries from another. Nutritional ha1 screening: No deficits noted. Tuberculosis screening: No symptoms or risk factors identified. 00:47 [facility] ED Fall Risk Assessment (Adult) History of falling in the last 3 months, ha1 including since admission No falls in past 3 months (0 pts) Confusion or Disorientation No (0 pts) Intoxicated or Sedated No (0 pts) Impaired Gait Mobility Assist Device Used No (0 pt) Altered Elimination No (0 pt) Score/Fall Risk Level 0 - 2 = Low Risk Oriented to surroundings, Maintained a safe environment, Educated pt \T\ family on fall prevention, incl call for assistance when getting out of bed, Hourly rounding (assess needs \T\ fall precautionary measures) done. Assessment: 00:47 Pain: Pain began suddenly, 1 hour ago. ha1 01:30 Reassessment: Patient and/or family updated on plan of care and expected duration. Pain ha1 level reassessed. Patient is alert, oriented x 3, equal unlabored respirations, skin warm/dry/pink. 02:30 Reassessment: Patient and/or family updated on plan of care and expected duration. Pain ha1 level reassessed. Patient is alert, oriented x 3, equal unlabored respirations, skin warm/dry/pink. 03:30 Reassessment: Patient and/or family updated on plan of care and expected duration. Pain ha1 level reassessed. Patient is alert, oriented x 3, equal unlabored respirations, skin warm/dry/pink. Patient states feeling better. Patient states symptoms have improved. 04:30 Reassessment: eyes closed. Cardiovascular: Patient's skin is warm and dry. Respiratory: ha1 Airway is patent Trachea midline Respiratory effort is even, unlabored, Respiratory pattern is regular, symmetrical. 05:30 Reassessment: eyes closed. ha1 05:30 Pain: Unable to use pain scale. FLACC scale score is 0 out of 10. Respiratory: Airway ha1 is patent Trachea midline Respiratory effort is even, unlabored, Respiratory pattern is regular, symmetrical. 06:30 Reassessment: Patient and/or family updated on plan of care and expected duration. Pain ha1 level reassessed. Patient is alert, oriented x 3, equal unlabored respirations, skin warm/dry/pink. 07:00 Reassessment: Patient appears in no apparent distress at this time. No changes from kc6 previously documented assessment. Patient and/or family updated on plan of care and expected duration. Pain level reassessed. Patient is alert, oriented x 3, equal unlabored respirations, skin warm/dry/pink. 08:00 Reassessment: Patient appears in no apparent distress at this time. No changes from kc6 previously documented assessment. Patient and/or family updated on plan of care and expected duration. Pain level reassessed. Patient is alert, oriented x 3, equal unlabored respirations, skin warm/dry/pink. 09:50 Reassessment: attempted to call report to 2nd floor, nurse Tiffanie unavailable at this kc6 time. Vital Signs: 00:47 BP 134 / 100; Pulse 92; Resp 17 S; Pulse Ox 97% on R/A; Weight 102.06 kg; Height 5 ft. ha1 5 in. ; Pain 10/10; 01:30 BP 102 / 61; Pulse 88; Resp 18 S; Pulse Ox 94% on R/A; ha1 02:30 BP 101 / 69; Pulse 82; Resp 13 S; Pulse Ox 95% on R/A; ha1 03:30 BP 118 / 73; Pulse 82; Resp 14 S; Pulse Ox 98% on R/A; ha1 04:30 BP 130 / 83; Pulse 85; Resp 18 S; Pulse Ox 98% on R/A; ha1 05:30 BP 122 / 74; Pulse 82; Resp 14 S; Pulse Ox 98% on 2 lpm NC; ha1 06:00 BP 109 / 72; Pulse 79; Resp 14 S; Pulse Ox 100% on 2 lpm NC; ha1 07:00 BP 112 / 81; Pulse 77; Resp 16 S; Pulse Ox 100% on 2 lpm NC; ha1 08:06 BP 112 / 64; Pulse 85; Resp 16 S; Pulse Ox 93% on R/A; kc6 00:47 Body Mass Index 37.44 (102.06 kg, 165.1 cm) ha1 00:47 Pain Scale: Adult 1 ED Course: 00:39 Patient arrived in ED. jj6 00:47 Patient maintains SpO2 saturation greater than 95% on room air. ha1 00:47 Arm band placed on left wrist. ha1 00:47 Patient has correct armband on for positive identification. Placed in gown. Bed in low ha1 position. Call light in reach. Side rails up X 1. 00:47 Client placed on continuous cardiac and pulse oximetry monitoring. NIBP monitoring ha1 applied. 00:51 Mitesh Owen MD is Attending Physician. kdr 01:10 No provider procedures requiring assistance completed. Inserted saline lock: 22 gauge ha1 in left antecubital area, using aseptic technique. Blood collected. 01:15 Tiara Belle RN is Primary Nurse. ha1 01:17 Basic Metabolic Panel Sent. ha1 01:17 CBC with Diff Sent. ha1 01:17 LFT's Sent. ha1 01:17 Magnesium Sent. ha1 01:17 NT PRO-BNP Sent. ha1 01:17 Troponin HS Sent. ha1 01:48 XRAY Chest (1 view) In Process Unspecified. EDMS 01:52 Triage completed. ha1 06:42 Leo Em MD is Hospitalizing Provider. kdr 07:10 Report given to Tiara Belle RN. kc6 10:20 Patient admitted, IV remains in place. kc6 Administered Medications: 01:20 Drug: Ondansetron IVP 4 mg Route: IVP; Site: left antecubital; ha1 02:50 Follow up: Response: No adverse reaction ha1 01:25 Drug: morphine IVP or IV 4 mg Route: IVP; Infused Over: 4 mins; Site: left antecubital; ha1 01:50 Follow up: Response: No adverse reaction; Pain is unchanged, physician notified; RASS: ha1 Alert and Calm (0) 01:29 Drug: Aspirin PO Chewable Tablet 324 mg Route: PO; ha1 07:41 Follow up: Response: No adverse reaction kc6 02:05 Drug: Ativan IVP 1 mg Route: IVP; Site: left antecubital; ha1 02:30 Follow up: Response: No adverse reaction; RASS: Alert and Calm (0) ha1 Medication: 00:47 VIS not applicable for this client. ha1 Outcome: 06:42 Decision to Hospitalize by Provider. kdr 10:20 Admitted to Med/surg accompanied by nurse, via wheelchair, room 216, with chart, Report kc6 called to Tiffanie Roman RN 10:20 Condition: improved 10:20 Instructed on the need for admit. 10:22 Patient left the ED. kc6 Signatures: Dispatcher [employer] EDMS Mitesh Owen MD MD [facility] Yaneli Gaytan jj6 Tiara Belle RN RN ha1 Rocio Lynn RN RN kc6 Corrections: (The following items were deleted from the chart) 05:11 00:47 General: Appears uncomfortable, Behavior is calm, cooperative, ha1 ha1 06:23 00:47 Chief complaint: Patient states: I have a horrible chest pain that started an ha1 hour ago. ha1 06:26 00:25 morphine IVP or IV 4 mg IVP in left antecubital over 4 mins ha1 ha1 06:27 02:50 Response: No adverse reaction; Pain is unchanged, physician notified; RASS: Alert ha1 and Calm (0) ha1
--- NOTE | 2023-02-09 06:43 | EDPHYS ---
Physician Documentation [facility] Name: Jazmín Perez Age: 52 yrs Sex: Female : 1970 Arrival Date: 02/09/2023 Time: 00:37 Bed 17 Private MD: ED Physician Mitesh Owen HPI: 02/09 20:00 This 52 yrs old Female presents to ER via Wheelchair with complaints of Chest kdr Pain. 20:00 The patient or guardian reports chest pain that is located primarily in the substernal kdr area. 20:01 Patient presents with chest pain that is midsternal and nonradiating. Pain began about kdr an hour and a half ago. She also feels shortness of breath. Patient appears in moderate discomfort and is otherwise nonacute. Onset: The symptoms/episode began/occurred suddenly, 1.5 hour(s) ago. Severity of symptoms: At their worst the symptoms were mild moderate just prior to arrival, in the emergency department the symptoms are unchanged. The patient has experienced similar episodes in the past, a few times. The patient has not recently seen a physician. Historical: - Allergies: 00:47 Codeine; ha1 - PMHx: 00:47 allergies; Anxiety; Diabetes - NIDDM; ha1 - Immunization history:: Adult Immunizations unknown. - Social history:: Smoking status: Patient denies any tobacco usage or history of. ROS: 20:01 Constitutional: Negative for fever, chills, and weight loss, Eyes: Negative for injury, kdr pain, redness, and discharge, Neck: Negative for injury, pain, and swelling, Respiratory: Negative for shortness of breath, cough, wheezing, and pleuritic chest pain, Abdomen/GI: Negative for abdominal pain, nausea, vomiting, diarrhea, and constipation, Back: Negative for injury and pain, : Negative for injury, bleeding, discharge, and swelling, MS/Extremity: Negative for injury and deformity, Skin: Negative for injury, rash, and discoloration, Neuro: Negative for headache, weakness, numbness, tingling, and seizure activity. Psych: Negative for depression, anxiety, suicide ideation, homicidal ideation, and hallucinations, Allergy/Immunology: Negative for hives, rash, and allergies, Endocrine: Negative for neck swelling, polydipsia, polyuria, polyphagia, and marked weight changes, Hematologic/Lymphatic: Negative for swollen nodes, abnormal bleeding, and unusual bruising. 20:01 Cardiovascular: Positive for chest pain, Negative for edema, orthopnea, palpitations, paroxysmal nocturnal dyspnea. 20:01 Respiratory: Positive for shortness of breath, Negative for hemoptysis, orthopnea. Exam: 20:01 Constitutional: This is a well developed, well nourished patient who is awake, alert, kdr and in moderate distress. Head/Face: Normocephalic, atraumatic. Eyes: Pupils equal round and reactive to light, extra-ocular motions intact. Lids and lashes normal. Conjunctiva and sclera are non-icteric and not injected. Cornea within normal limits. Periorbital areas with no swelling, redness, or edema. Neck: Trachea midline, no thyromegaly or masses palpated, and no cervical lymphadenopathy. Supple, full range of motion without nuchal rigidity, or vertebral point tenderness. No Meningismus. Chest/axilla: Normal chest wall appearance and motion. Nontender with no deformity. No lesions are appreciated. Cardiovascular: Regular rate and rhythm with a normal S1 and S2. No gallops, murmurs, or rubs. Normal PMI, no JVD. No pulse deficits. Respiratory: Lungs have equal breath sounds bilaterally, clear to auscultation and percussion. No rales, rhonchi or wheezes noted. No increased work of breathing, no retractions or nasal flaring. Abdomen/GI: Soft, non-tender, with normal bowel sounds. No distension or tympany. No guarding or rebound. No evidence of tenderness throughout. Back: No spinal tenderness. No costovertebral tenderness. Full range of motion. Skin: Warm, dry with normal turgor. Normal color with no rashes, no lesions, and no evidence of cellulitis. MS/ Extremity: Pulses equal, no cyanosis. Neurovascular intact. Full, normal range of motion. Neuro: Awake and alert, GCS 15, oriented to person, place, time, and situation. Cranial nerves II-XII grossly intact. Motor strength 5/5 in all extremities. Sensory grossly intact. Cerebellar exam normal. Normal gait. Psych: Awake, alert, with orientation to person, place and time. Behavior, mood, and affect are within normal limits. Vital Signs: 00:47 BP 134 / 100; Pulse 92; Resp 17 S; Pulse Ox 97% on R/A; Weight 102.06 kg; Height 5 ft. ha1 5 in. ; Pain 10/10; 01:30 BP 102 / 61; Pulse 88; Resp 18 S; Pulse Ox 94% on R/A; ha1 02:30 BP 101 / 69; Pulse 82; Resp 13 S; Pulse Ox 95% on R/A; ha1 03:30 BP 118 / 73; Pulse 82; Resp 14 S; Pulse Ox 98% on R/A; ha1 04:30 BP 130 / 83; Pulse 85; Resp 18 S; Pulse Ox 98% on R/A; ha1 05:30 BP 122 / 74; Pulse 82; Resp 14 S; Pulse Ox 98% on 2 lpm NC; ha1 06:00 BP 109 / 72; Pulse 79; Resp 14 S; Pulse Ox 100% on 2 lpm NC; ha1 07:00 BP 112 / 81; Pulse 77; Resp 16 S; Pulse Ox 100% on 2 lpm NC; ha1 08:06 BP 112 / 64; Pulse 85; Resp 16 S; Pulse Ox 93% on R/A; kc6 00:47 Body Mass Index 37.44 (102.06 kg, 165.1 cm) ha1 00:47 Pain Scale: Adult ha1 MDM: 06:42 Patient medically screened. kdr 20:01 Data reviewed: vital signs, nurses notes, lab test result(s), radiologic studies. kdr 02/09 01:08 Order name: Basic Metabolic Panel; Complete Time: 02:55 kdr 02/09 01:08 Order name: CBC with Diff; Complete Time: 02:55 kdr 02/09 01:08 Order name: LFT's; Complete Time: 02:55 kdr 02/09 01:08 Order name: Magnesium; Complete Time: 02:55 kdr 02/09 01:08 Order name: NT PRO-BNP; Complete Time: 02:55 kdr 02/09 01:08 Order name: Troponin HS; Complete Time: 02:55 kdr 02/09 02:31 Order name: Troponin High Sensitivity: draw three hours after initial draw; Complete kdr Time: 03:37 02/09 05:18 Order name: Troponin High Sensitivity; Complete Time: 06:29 ha1 02/09 06:52 Order name: D-Dimer kdr 02/09 08:35 Order name: Urinalysis w/ reflexes EDMS 02/09 08:35 Order name: Basic Metabolic Panel EDMS 02/09 08:35 Order name: Basic Metabolic Panel EDMS 02/09 08:35 Order name: CBC with Automated Diff EDMS 02/09 08:35 Order name: CBC with Automated Diff EDMS 02/09 08:35 Order name: Magnesium EDMS 02/09 08:35 Order name: Magnesium EDMS 02/09 08:35 Order name: Troponin High Sensitivity EDMS 02/09 01:08 Order name: XRAY Chest (1 view) kdr 02/09 08:39 Order name: Extrem Venous W Compress Lyndon EDMS 02/09 01:08 Order name: EKG; Complete Time: 01:09 kdr 02/09 08:33 Order name: CONS Physician Consult EDMS 02/09 08:35 Order name: Heart Healthy EDMS 02/09 01:08 Order name: Cardiac monitoring; Complete Time: 01:14 kdr 02/09 01:08 Order name: EKG - Nurse/Tech; Complete Time: 01:14 kdr 02/09 01:08 Order name: IV Saline Lock; Complete Time: 01:14 kdr 02/09 01:08 Order name: Labs collected and sent; Complete Time: 01:14 kdr 02/09 01:08 Order name: O2 Per Protocol; Complete Time: 01:14 kdr 02/09 01:08 Order name: O2 Sat Monitoring; Complete Time: 01:14 kdr Administered Medications: 01:20 Drug: Ondansetron IVP 4 mg Route: IVP; Site: left antecubital; ha1 02:50 Follow up: Response: No adverse reaction ha1 01:25 Drug: morphine IVP or IV 4 mg Route: IVP; Infused Over: 4 mins; Site: left antecubital; ha1 01:50 Follow up: Response: No adverse reaction; Pain is unchanged, physician notified; RASS: ha1 Alert and Calm (0) 01:29 Drug: Aspirin PO Chewable Tablet 324 mg Route: PO; ha1 07:41 Follow up: Response: No adverse reaction kc6 02:05 Drug: Ativan IVP 1 mg Route: IVP; Site: left antecubital; ha1 02:30 Follow up: Response: No adverse reaction; RASS: Alert and Calm (0) ha1 Disposition Summary: 02/09/23 06:42 Hospitalization Ordered Hospitalization Status: Inpatient Admission kdr Provider: Leo Em Location: Telemetry/MedSurg (Inpatient) kdr Condition: Fair kdr Problem: new kdr Symptoms: have improved kdr Bed/Room Type: Standard kdr Room Assignment: 216(02/09/23 09:18) eb Diagnosis - Chest pain, unspecified kdr - Acute Renal Injury (1.81 Cr) kdr Forms: - Medication Reconciliation Form kdr - SBAR form kdr Signatures: Dispatcher [employer] EDMS Mitesh Owen MD MD kdr Botello, Elizabeth eb Ayala, Heidy RN RN ha1 Rocio Lynn RN kc6 Corrections: (The following items were deleted from the chart) 09:18 06:42 kdr eb
--- NOTE | 2023-02-09 08:07 | P.HP ---
Certification for Inpatient Patient admitted to: Observation With expected LOS: <2 Midnights Practitioner: I am a practitioner with admitting privileges, knowledge of patient current condition, hospital course, and medical plan of care. Services: Services provided to patient in accordance with Admission requirements found in Title 42 Section 412.3 of the Code of Federal Regulations Patient History Date of Service: 02/09/23 Reason for admission: Chest pain, BRANDY History of Present Illness: 52yo F, PMH: hnj-nygnryv-otssiddus diabetes, anxiety Presents to ED due to chest pain that began yesterday. She states she was running errands yesterday, didn't eat/drink much - only 1 bottle of tea/water, and small kids size burger. She got home and did the dishes, afterwards she beg an to feel left anterior chest pain / squeezing discomfort. It didn't improve so she presented to the ED overnight. She denies any recent change in medications, no OTC medications, no nausea/vomiting, no fever. She has been taking Ozembic for ~4 months now, and states she can occasionally goes 2 days without eating or drinking much of anything. On average she drinks 1-2 bottles of water/liquids a day. She has had less intake in the last 2-3 days than usual do to running errands / being busy. She was recently admitted for similar symptoms ~6-8 weeks ago. At that time troponins were negative as well, stress testing did indicate a questionable small area of reversible ischemia. At that time, Dr. Ramos recommended outpatient follow up. Patient states she followed up with Dr. Maloney, due to insurance issues, and reports no changes in medications / no further testing was ordered/done. In the ED, troponins are negative x3, EKG without ST elevation, no other ST/Twave changes. Labwork notable for elevated creatinine of 1.81. ED physician requests observation for BRANDY and chest pain. At the time of my exam, she is breathing 95-98% on room air, without tachycardia, and without tachypnea. She just urinated in bedside commode and noted to have dark/ brandon colored urine, and reports left chest pain. Allergies codeine Allergy (Mild, Verified 12/13/22 03:14) Nausea/Vomiting Home Medications: Celecoxib [Celebrex] 200 mg PO BID 12/13/22 Cyclobenzaprine [Flexeril*] 10 mg PO BID 12/13/22 Duloxetine HCl [Cymbalta] 30 mg PO TID 12/13/22 Fesoterodine Fumarate [Fesoterodine Fumarate ER] 4 mg PO DAILY 12/13/22 Gabapentin 400 mg PO BID 12/13/22 Semaglutide [Ozempic] 1 mg SQ Q7D 12/13/22 clonazePAM [Klonopin] 0.5 tab PO Q12H PRN 5 Days #5 tab 12/13/22 - Past Medical/Surgical History Diabetic: Yes -: Diabetes mellitus type 2 -: anxiety -: RHEUMATOID ARTHRITIS -: BLADDER SPASMS -: none Psychosocial/ Personal History: Patient lives at home with her , family - Family History Family History: Reviewed- Non-Contributory - Social History Alcohol use: No CD- Drugs: No Caffeine use: Yes Place of Residence: Home Review of Systems 10-point ROS is otherwise unremarkable Physical Examination - Studies Laboratory Data (last 24 hrs) 02/09/23 01:10: WBC 8.10, Hgb 11.2 L, Hct 35.0 L, Plt Count 243 02/09/23 01:10: Sodium 141, Potassium 4.0, BUN 34 H, Creatinine 1.81 H, Glucose 100, Magnesium 1.9, Total Bilirubin 0.2, AST 8 L, ALT 21, Alkaline Phosphatase 122 H Assessment and Plan - Advance Directives Does patient have a Living Will: No Does patient have a Durable POA for Healthcare: No Physician Review Additional Text: Physical Exam: GEN: Alert, oriented, NAD HEENT: Normal conjunctiva, sclera anicteric CV: Regular rate and rhythm, no edema Pulm: Nonlabored respirations on room air, clear bilaterally ABD: Soft, nontender, nondistended MSK: Tenderness to palpation at 4th intercostal space left of sternum Integumentary: No rashes / no overlying skin changes Neuro: Normal speech, normal affect Problem List BRANDY, likely hypovolemia/prerenal Chest Pain Elevated d-dimer Anxiety NIDDM2 reports low PO intake since taking ozembic only ~2 bottles of water/liquid in a day occasionally goes 2 days without eating much borderline low BP, urine dark/brandon most consistent with dehydration / prerenal start IVF continue home medications tylenol and lidocaine patch for pain trop negative x3 negative ~6-8 weeks ago stress test from 12/2022 did show a small area with possible reversible ischemia she states she followed up with cardiology (?Dr. Maloney) and no changes to meds or further testing was done/advised at that time chest pain is reproducible on exam patient states she has been having a lot of stress/anxiety elevated d-dimer similar to last time negative venous dopplers, negative CTA current renal function precludes CTA not hypoxic, not tachycardia check venous dopplers, she reports left foot cramping pain monitor closely, on telemetry if worsens / more concern, VQ scan in AM vs possibly CTA if renal function improved given body habitus and prior negative CTA -- VQ scan less ideal VTE: lovenox Code: full Dispo: anticipate home, in ~24hrs Time Spent Managing Pts Care (In Minutes): 70
[2023-02-09] MEDS: ENOXAPARIN 40 MG/0.4 ML SQ SCH (09:00)
[2023-02-09] MEDS: DULOXETINE 30 MG CAP PO SCH ×3 (09:00→20:01)
[2023-02-09] MEDS: LIDOCAINE 4% PATCH TOP SCH (09:00)
[2023-02-09] MEDS: ASPIRIN EC 81 MG TAB PO SCH (09:00)
[2023-02-09] MEDS: GABAPENTIN 400 MG CAP PO SCH ×2 (09:00→20:02)
[2023-02-09] MEDS ORDERED: ACETAMINOPHEN 500 MG TAB ONE (09:02)
[2023-02-09] MEDS ORDERED: DULOXETINE 30 MG CAP PO ONE (09:02)
[2023-02-09] MEDS ORDERED: LIDOCAINE 4% PATCH ONE (09:03)
[2023-02-09] MEDS ORDERED: ENOXAPARIN 40 MG/0.4 ML SQ ONE (09:03)
[2023-02-09] MEDS ORDERED: ASPIRIN EC 81 MG TAB PO ONE (09:03)
[2023-02-09] MEDS ORDERED: GABAPENTIN 400 MG CAP ONE (09:07)
[2023-02-09] MEDS: ACETAMINOPHEN 500 MG TAB PO PRN ×3 (09:43→23:54)
[2023-02-09] MEDS: CYCLOBENZAPRINE 10 MG TAB PO PRN (11:30)
--- NOTE | 2023-02-09 12:07 | RAD REPORT ---
EXAM DESCRIPTION: US - Extrem Venous W Compress Lyndon - 02/09/2023 11:25 am CLINICAL HISTORY: Extremity pain. Rule out DVT COMPARISON: None. TECHNIQUE: Real-time sonographic evaluation of the bilateral lower extremity deep venous systems was performed. FINDINGS: Normal compressibility, flow augmentation, phasic flow and spontaneous flow is identified in both the left and right lower extremity deep venous systems. No intraluminal filling defects seen. IMPRESSION: No DVT in either lower extremity.
[2023-02-09] MEDS: Ringers Lactate 1,000 ML IV SCH (16:57)
[2023-02-09] MEDS: clonazePAM 0.5 MG TAB PO PRN (16:57)
[2023-02-09] MEDS: ONDANSETRON 4 MG/2 ML VIAL IV PRN (20:01)
[2023-02-09] MEDS: ATORVASTATIN 40 MG TAB PO SCH (20:02)
[2023-02-09] MEDS ORDERED: MORPHINE 4 MG/ML SYR IV ONE (20:42)
[2023-02-09] MEDS ORDERED: NALOXONE HCL 2 MG/2 ML VIAL IV ONE (21:30)
[2023-02-09] MEDS ORDERED: NALOXONE HCL 2 MG/2 ML VIAL ONE (21:38)
[2023-02-10] MEDS: CYCLOBENZAPRINE 10 MG TAB PO PRN (01:27)
[2023-02-10] MEDS: Ringers Lactate 1,000 ML IV SCH ×3 (03:24→20:52)
[2023-02-10] MEDS: ACETAMINOPHEN 500 MG TAB PO PRN ×2 (03:25→11:09)
[2023-02-10 03:53] LABS: Absolute Lymphocytes (CBC) 1.6 K/uL (0.7-4.9); Hematocrit 33.2 % (36.0-45.0); MCV 95.5 fL (80-100); MPV 8.1 fL (7.6-11.3); RBC Red Blood Cell Count 3.48 M/uL (3.86-4.86)
[2023-02-10 04:09] LABS: Magnesium 1.8 mg/dL (1.6-2.4); Potassium 3.9 mEq/L (3.5-5.1)
[2023-02-10] MEDS ORDERED: MAGNESIUM SULFATE 1 gm IVPB 1 GM/100 ML BAG IV ONE ×2 (04:12→09:00)
[2023-02-10] MEDS ORDERED: HYDROCODONE/APAP 7.5/325 MG TAB PO ONE (04:29)
[2023-02-10] MEDS: ONDANSETRON 4 MG/2 ML VIAL IV PRN (04:45)
[2023-02-10] MEDS: LIDOCAINE 4% PATCH TOP SCH (04:56)
[2023-02-10] MEDS ORDERED: POTASSIUM CL SA 10 MEQ TAB PO ONE ×2 (08:10→09:00)
[2023-02-10] MEDS: ENOXAPARIN 40 MG/0.4 ML SQ SCH (08:29)
[2023-02-10] MEDS: ASPIRIN EC 81 MG TAB PO SCH (08:32)
[2023-02-10] MEDS: DULOXETINE 30 MG CAP PO SCH ×3 (08:33→20:45)
[2023-02-10] MEDS: GABAPENTIN 400 MG CAP PO SCH ×2 (08:33→20:45)
[2023-02-10] MEDS ORDERED: HEPA 1000U/500MLS 2,000 UNIT/1,000 ML BAG IV ONE (11:00)
[2023-02-10] MEDS ORDERED: LIDOCAINE 1% 20 ML MDV ONE (11:00)
[2023-02-10] MEDS ORDERED: FENTANYL CITR 100 MCG/2 ML ONE (11:00)
[2023-02-10] MEDS ORDERED: HEPARIN 10,000 UNIT/10 ML VIAL IV ONE (11:01)
[2023-02-10] MEDS ORDERED: VERAPAMIL HCL 10 MG/4 ML VIAL IV ONE (11:01)
[2023-02-10] MEDS ORDERED: MIDAZOLAM HCL 2 MG/2 ML INJ ONE (11:01)
[2023-02-10] MEDS ORDERED: NITROGLYCERIN 100 MCG/ML SYR (for cath lab use only) IV ONE (11:01)
[2023-02-10] MEDS ORDERED: HEPARIN 5000 UNIT/ML 1 ML VIAL ONE (11:01)
[2023-02-10] MEDS ORDERED: NITROGLYCERIN/D5W 25 MG/250 ML BTL IV ONE (11:02)
[2023-02-10] MEDS ORDERED: ATROPINE SULF 1 MG/10 ML SYR IV ONE (11:02)
[2023-02-10] MEDS: clonazePAM 0.5 MG TAB PO PRN (11:09)
[2023-02-10] MEDS ORDERED: NA CHLORIDE 0.9% 500 ML ONE (11:09)
--- NOTE | 2023-02-10 11:16 | CON ---
Date of Consultation: 02/10/[address] Em and Dr. Zavala on 02/09/2023 for chest pain and acute kidney injury. I saw the patient on 02/10/2023. History Of Present Illness: Ms. Perez is 52. Has a history of anxiety and diabetes and chronic pa in. She was here in the hospital in December 2022 with very atypical chest pain. Had a normal echo, had an apical ischemia on stress test, decided to be treated medically. Went home, came back yesterday w ith chest pressure. No radiation. Some diaphoresis, shortness of breath. No nausea, vomiting, PND, orthopnea, pedal edema, palpitations, or syncope. MT is ruled out. EKG is nonspecific. Creatinine was 1.81 and went down to 0.87 with hydration. D-dimer was 494 with a negative venous Doppler. The patient is presently on aspirin, Lipitor, and Lovenox. Past Medical History: As stated above. Allergies: INCLUDE CODEINE. Review of Systems: Negative. Social History: Negative. Family History: Negative. Medications: At home include Ozempic, Flexeril, and Celebrex. Physical Examination: This was done by Dr. Em, Dr. Zavala in the emergency room. Vital Signs: Stable, afebrile. HEENT: Negative. Neck: Supple with no bruit. Chest: Clear. Cardiac: Normal. Abdomen: Obese, but benign. Extremities: Revealed no clubbing, cyanosis, or edema. Diagnostic Data: As stated earlier. Impression And Plan: Atypical chest pain in a patient with obesity, diabetes, high cardiac risk fact ors, positive stress test in December, recurrent symptoms. I think she needs to have a heart catheterizat ion to define her coronary anatomy. She agreed to proceed. Dr. North will do the case today. She understands the risk and the benefits of the procedure. We will continue to follow her after the cat heterization. Her kidney function has improved back to normal. Her D-dimer is elevated with a negat gabi venous Doppler. No change in medical therapy for now. NB/MODL Voice ID: [id number] Report ID: [id number]
--- NOTE | 2023-02-10 12:06 | P.PN ---
Subjective Date of Service: 02/10/23 Chief Complaint: Chest pain, BRANDY Subjective: No new changes Review of Systems 10-point ROS is otherwise unremarkable Cardiovascular: Chest Pain Physical Examination - Vital Signs Temperature: 97.6 F Blood Pressure: 120/61 Pulse: 100 Respirations: 18 Pulse Ox (%): 99 - Physical Exam General: Alert, Mild distress HEENT: Atraumatic, PERRLA, EOMI Neck: Supple, JVD not distended Respiratory: Clear to auscultation bilaterally, Normal air movement Cardiovascular: Regular rate/rhythm, Normal S1 S2 Gastrointestinal: Normal bowel sounds, No tenderness Musculoskeletal: No tenderness Integumentary: No rashes Neurological: Normal speech, Normal tone, Normal affect Lymphatics: No axilla or inguinal lymphadenopathy Assessment And Plan - Current Problems (Diagnosis) (1) Atypical chest pain Current Visit: Yes Status: Acute Plan: plans for cath today. She had a positive stress test [address] North will be doing the procedure (2) DM2 (diabetes mellitus, type 2) Current Visit: Yes Status: Acute Plan: seems strange she is on 30 units of levemir. Her a1c in december was 5.6 Will start weaning her down. 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 Will continue to work with her. may need some benzodiazepams in the short term for her anxiety Qualifiers: Schizophrenia type: disorganized schizophrenia Qualified Code(s): F20.1 - Disorganized schizophrenia Discharge Plan: Home Plan to discharge in: 24 Hours - Code Status/Comfort Care Code Status Assessed: No Critical Care: No Time Spent Managing PTS Care (In Minutes): 45
--- NOTE | 2023-02-10 12:52 | RAD REPORT ---
EXAM DESCRIPTION: RAD - Chest Single View - 02/09/2023 1:46 am CLINICAL HISTORY: 52 years, Female, CHEST PAIN COMPARISON: None FINDINGS: Single view of the chest was obtained portable. No prior films are available for compariso n. The cardiomediastinal silhouette demonstrate to be unremarkable. The heart is not enlarged. The th oracic aorta is mildly tortuous. The pulmonary vasculature is normal distribution. Costophrenic angle s are sharp. No areas of consolidation or masses are seen. The rest of the soft tissue and bony s tructures demonstrate to be unremarkable. IMPRESSION: NO ACUTE CARDIOPULMONARY DISEASE SEEN. Electronically signed by: Oliver Steen MD 02/09/2023 2:03 AM CDT Due to temporary technical issues with the PACS/Fluency reporting system, reports are being signed by the in house radiologist without review as a courtesy to ensure prompt reporting. The interpreting r adiologist is fully responsible for the content of the report.
--- NOTE | 2023-02-10 13:13 | OP ---
Date of Procedure: 02/10/2023 Surgeon: JEANNE YBARRA Procedures Performed: 1.Selective coronary angiogram. 2.Left heart catheterization. Indication: Unstable angina and abnormal stress test. Access: Right radial artery 6-Venezuelan closed with TR band. Complications: None. Bleeding: Less than 20 mL. Anesthesia: Total sedation time was 30 minutes. Used fentanyl and Versed. Description Of Procedure: After risks, benefits, and alternatives were explained, the patient agreed to the procedure and signed informed consent. The patient was brought into the cardiac catheterizat ion laboratory, prepped and draped in the usual sterile fashion. Then, I accessed right radial arter y using pediatric micropuncture kit, placed a 6-Venezuelan Slender sheath and then took 5-Venezuelan [place] 4. 0 catheter into the aortic root, engaged left main and then right coronary artery, took standard view s. Then, the catheter was pushed over the wire into the LV, measured LVEDP, pullback did not record any gradient. Then, I removed the catheter and sheath, placed TR band with good hemostasis. Findings: 1.Left main; large and normal. 2.LAD; large vessel, normal. Normal diagonal branches. 3.Left circumflex; moderate size and normal. 4.RCA; very large and dominant and normal. 5.Elevated LVEDP at 18 mmHg. Conclusion: 1.Normal coronary arteries. 2.Elevated LVEDP, likely due to diastolic dysfunction. Recommendations: Weight loss and diuretics. SR/MODL Voice ID: [id number] Report ID: [id number]
[2023-02-10] MEDS ORDERED: ACETAMINOPHEN 325 MG TABLET PO ONE (14:11)
--- NOTE | 2023-02-10 17:13 | EKG ---
Test Date: 2023-02-09 Test Time: 00:54:50 Assistant Financial Accountant: TYRONE MEASUREMENT RESULTS: Intervals: Rate: 89 MS: 160 QRSD: 92 QT: 386 QTc: 469 [place]: P: 59 MS: 160 QRS: 62 T: 61 INTERPRETIVE STATEMENTS: Normal sinus rhythm Nonspecific ST abnormality Abnormal ECG Compared to ECG 12/12/2022 23:03:01 ST (T wave) deviation now present T-wave abnormality no longer present Prolonged QT interval no longer present Electronically Signed On 02-10-23 17:11:28 CDT by Edvin North
[2023-02-10] MEDS: TRAMADOL HCL 50 MG TAB PO PRN (17:27)
[2023-02-10] MEDS: ATORVASTATIN 40 MG TAB PO SCH (20:46)
[2023-02-10] MEDS ORDERED: LORazepam 2 MG/ML VIAL IV ONE (21:22)
[2023-02-11 02:43] VITALS: O2SAT 97
[2023-02-11] MEDS: TRAMADOL HCL 50 MG TAB PO PRN (02:51)
[2023-02-11 04:26] LABS: Potassium 4.5 mEq/L (3.5-5.1)
[2023-02-11 04:43] LABS: Magnesium 1.9 mg/dL (1.6-2.4)
[2023-02-11] MEDS: Ringers Lactate 1,000 ML IV SCH (05:39)
[2023-02-11] MEDS: ONDANSETRON 4 MG/2 ML VIAL IV PRN (05:39)
[2023-02-11] MEDS: ACETAMINOPHEN 500 MG TAB PO PRN (05:40)
[2023-02-11] MEDS: clonazePAM 0.5 MG TAB PO PRN (05:49)
[2023-02-11 08:32] VITALS: BP 113/67; TEMP 97.5
--- NOTE | 2023-02-11 08:38 | P.DS ---
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 Please see the note. Hospital Course: The patient was admitted for chest pain. Had a lot of anxiety during her stay. She had a negative troponins and angiogram. She does have some diastolic dysfunction. the patient may need an outpatient sleep study. Will have her follow up with Dr. North and her PCP. Thank you for allowing me to take part in her care. Vital Signs/Physical Exam: Temp Pulse Resp BP Pulse Ox 97.5 F 83 17 113/67 97 02/11/23 08:00 02/11/23 08:00 02/11/23 08:00 02/11/23 08:00 02/11/23 08:00 General: Alert, In no apparent distress HEENT: Atraumatic, PERRLA, EOMI Neck: Supple, JVD not distended Respiratory: Clear to auscultation bilaterally, Normal air movement Cardiovascular: Regular rate/rhythm, Normal S1 S2 Gastrointestinal: Normal bowel sounds, No tenderness Musculoskeletal: No tenderness Integumentary: No rashes Neurological: Normal speech, Normal tone, Normal affect Lymphatics: No axilla or inguinal lymphadenopathy Laboratory Data at Discharge: WBC 6.90 thou/uL (4.3-10.9) 02/10/23 02:31 Hgb 10.9 g/dL (12.0-15.0) L 02/10/23 02:31 Hct 33.2 % (36.0-45.0) L 02/10/23 02:31 Plt Count 214 thou/uL (152-406) 02/10/23 02:31 Sodium 141 mEq/L (136-145) 02/11/23 02:14 Potassium 4.5 mEq/L (3.5-5.1) D 02/11/23 02:14 BUN 13 mg/dL (7-18) 02/11/23 02:14 Creatinine 0.80 mg/dL (0.55-1.02) 02/11/23 02:14 Glucose 123 mg/dL (74-106) H 02/11/23 02:14 Magnesium 1.9 mg/dL (1.6-2.4) 02/11/23 02:14 Total Bilirubin 0.2 mg/dL (0.2-1.0) 02/09/23 01:10 AST 8 U/L (15-37) L 02/09/23 01:10 ALT 21 U/L (13-56) 02/09/23 01:10 Alkaline Phosphatase 122 U/L (45-117) H 02/09/23 01:10 Home Medications: Celecoxib [Celebrex] 200 mg PO BID 12/13/22 Cyclobenzaprine [Flexeril*] 10 mg PO BID 12/13/22 Duloxetine HCl [Cymbalta] 30 mg PO TID 12/13/22 Fesoterodine Fumarate [Fesoterodine Fumarate ER] 4 mg PO DAILY 12/13/22 Gabapentin 800 mg PO TID 12/13/22 Semaglutide [Ozempic] 1 mg SQ Q7D 12/13/22 clonazePAM [Klonopin] 0.5 tab PO Q12H PRN 5 Days #5 tab 12/13/22 Followup: Amelia Evans MD [Primary Care Provider] - Edvin North MD [ACTIVE - CAN ADMIT] - 1-2 Weeks Time spent managing pt's care (in minutes): 30
[2023-02-11] MEDS: ASPIRIN EC 81 MG TAB PO SCH (08:57)
[2023-02-11] MEDS: DULOXETINE 30 MG CAP PO SCH (08:57)
[2023-02-11] MEDS: GABAPENTIN 400 MG CAP PO SCH (08:57)
[2023-02-11] MEDS: ENOXAPARIN 40 MG/0.4 ML SQ SCH (09:02)
[2023-02-11] MEDS: LIDOCAINE 4% PATCH TOP SCH (09:02)
[2023-02-11 09:09] VITALS: BMI 38.4
--- NOTE | 2023-02-11 20:26 | EKG ---
Test Date: 2023-02-09 Test Time: 21:53:19 [employer]: WADE MEASUREMENT RESULTS: Intervals: Rate: 73 [place]: 140 QRSD: 86 QT: 420 QTc: 462 [place]: P: 42 [place]: 140 QRS: 33 T: 67 INTERPRETIVE STATEMENTS: Normal sinus rhythm Possible Inferior infarct, age undetermined Cannot rule out Anterior infarct, age undetermined Abnormal ECG Compared to ECG 02/09/2023 00:54:50 Myocardial infarct finding now present ST (T wave) deviation no longer present Electronically Signed On 02-11-23 20:24:01 CDT by Aime Rmaos
== END 2023-02-11 09:31 | disposition home or self-care (01) ==
LOC: ER 00:37 → ERHOLD 08:46 → 2ND 09:51
PROVIDERS: ADMIT Hospitalist; ATTEND Internal Medicine
PROC: 4A023N7 Measurement of Cardiac Sampling and Pressure, Left Heart, Percutaneous Approach (ICD-10-PCS; principal; 2023-02-10)
PROC: B2011ZZ Plain Radiography of Multiple Coronary Arteries using Low Osmolar Contrast (ICD-10-PCS; 2023-02-10)
DX: R07.89 Other chest pain (principal); N17.9 Acute kidney failure, unspecified; E11.9 Type 2 diabetes mellitus without complications; F20.1 Disorganized schizophrenia; F41.9 Anxiety disorder, unspecified; R79.89 Other specified abnormal findings of blood chemistry; M06.9 Rheumatoid arthritis, unspecified; G89.29 Other chronic pain; E66.9 Obesity, unspecified; Z68.38 Body mass index [BMI] 38.0-38.9, adult; Z79.85 Long-term (current) use of injectable non-insulin antidiabetic drugs; Z79.899 Other long term (current) drug therapy; Z88.5 Allergy status to narcotic agent
CPT/HCPCS: 93005 ×2; 85025 ×2; 80048 ×3; 36415 ×2; 83735 ×3; 82947 ×7; 85379; 80076; 84484 ×4; 83880; 71045; 93458; 76937; 93970; 94760 ×5; 96375; 96374; 99285; C1893; Q9966; J1644; J2001 ×4; J3475; J2310; J1650 ×2; J2250; J3010; J2405 ×4; J7120 ×4; J7040; G0378; J0461

== ENCOUNTER 2023-10-05 21:48 | Emergency (ER) | payer OTHER ==
--- OUTSIDE RECORDS SUMMARY | 2023-10-05 21:57 | XMS REPORT | Continuity of Care Document ---
Author Name Unknown Address [address] [facility] [place] [address] [facility] thconnect Address [address] [facility] [place] [address] Care Team Providers Care Archival Studies Professor Name Role Phone Kenya Evans Primary Care Physician [phone] Kenya Evans Attending Clinician Unavailable KAYLA LUTZ Attending Clinician UnavailLACEY Guzman Attending Clinician Unava ilBREE Pelaez Attending Clinician Unavailable Doctor Unassigned, House Attending Clinician U michaela Espinoza RN, Veronika Serra Attending Clinician Unavail able ANNAMARIA BARKER Attending Clinician Unavailable Yony GOMEZ, Marylou Sanabria Attending Clinician [phone] Annamaria Barker DO Attending Clinician [phone] Billy WOODSON, Bree Attending Clinician [phone] Kayla Lutz MD Attending Clinician [phone] Bernice Amaya Attending Clinician [phone] PEDRO LUIS RUSHING Attending Clinician Unavailable PEDRO LUIS RUSHING Attending Clinician Unavailable Pob, [facility] Main Attending Clinician UnavailBERNICE Conrad Attending Clinician Unavailable Clemente KIDD, Chelo Larson Attending Clinician Unavailab Brodie Woodard MD Attending Clinician [phone] FILIPE WIGGINS Attending Clinician Unavailable CLAYTON GARRIDO Attending Clinician Unavail able Bharath Padgett CRNA Attending Clinician [phone] Oliver Hunt MD Attending Clinician [phone] Only, Adc Test Attending Clinician Unavailable RENÉE AGUILERA Attending Clinician Unavail able RENÉE AGUILERA Attending Clinician Unavail able ANDREW RESENDIZ Attending Clinician Unavail able Nurse, Adc Pob Immunization Attending Clinician Unavailable Andrew Resendiz DO Attending Clinician Jonas Barker MD Attending Clinician Calin Lazar DO Attending Clinician [phone] KAYLA LUTZ Admitting Clinician UnavailANNAMARIA Amado Admitting Clinician Unavailable Annamaria Barker DO Admitting Clinician [phone] Kayla Lutz MD Admitting Clinician [phone] BERNICE COLUNGA Admitting Clinician Unavailable Payers Payer Name Policy Type Policy Number Effective Date Expirati on Date Source [facility] PL[facility] [id number] 2021 00:00:00 [facility] [id number] 2015 00:00:00 [facility] [id number] 2020 00:00:00 Amb[facility] from [facility] [id number] [facility] AMBETTER FROM [facility] [id number] 2019 00:00:00 Ambetter from [facility] [id number] [facility] Ambetter from [facility] [id number] [facility] Ambetter from [facility] [id number] [facility] Problems Condition Name Condition Details Condition Category Status Onset Date Resolution Date Last Treatment Date Treating Clinician Comments Source Abnormal nuclear cardiac imaging test Abnormal nuclear cardiac imaging test Disease Active 08-30 00:00: 00 [facility] Chest pain, unspecifie d type Chest pain, unspecifie d type Disease Active 08-29 00:00: 00 [facility] Right lower quadrant abdominal pain Right lower quadrant abdominal pain Disease Active 2021-08 00:00: 00 [facility] Morbid obesity with body mass index of 40.0-49.9 Morbid obesity with body mass index of 40.0-49.9 Disease Active 01-15 00:00: 00 [facility] Arthritis of left hip Arthritis of left hip Disease Active 01-04 00:00: 00 Overview: Formattin g of this note might be different from the original. 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 non-steroi jaiden anti-infla mmatories (nsaid) correction (current) use of non-steroi jaiden anti-infla mmatories (nsaid) Disease Active 03-31 00:00: 00 [facility] Other iron deficiency anemia Other iron deficiency anemia Disease Active 03-31 00:00: 00 [facility] Subcutaneo us nodules Subcutaneo us nodules Disease Active 03-31 00:00: 00 [facility] Bilateral knee pain Bilateral knee pain Disease Active 10-10 00:00: 00 [facility] Bilateral knee pain Bilateral knee pain Disease Active 10-10 00:00: 00 [facility] [id number] Pain, joint, hand, left Problem Active [facility] [id number] Primary osteoarthr itis of left hip Problem Active [facility] [id number] Trigger finger, right ring finger Problem Active [facility] [id number] Pain, joint, hand, right Problem Active [facility] [id number] Pain, joint, hip, right Problem [facility] [id number] Arthritis of right hip Problem [facility] [id number] Trochanter ic bursitis of left hip Problem [facility] [id number] Status post total replacemen t of left hip Problem [facility] Allergies, Adverse Reactions, Alerts Allergy Name Allergy Type Status Severity Reaction(s) Onset Date Inactive Date Treating Clinician Comments Source Codeine Propensi ty to adverse reaction s Active Nausea And Vomiting 09-07 00:00: 00 [facility] CODEINE DRUG INGREDI Active N/V 09-07 00:00: 00 [facility] codeine codeine Active Unknown [facility] Social History Social Habit Start Date Stop Date Quantity Comments Source Gender identity [facility] of [facility] Use [facility] Sex Assigned At [facility] History SDOH Alcohol Std Drinks [facility] History SDOH Alcohol Binge [facility] Exposure to SARS-CoV-2 (event) 2022-12-17 00:00:00 2022-12-27 08:47:00 Not sure [facility] History of Social function 2022-09-23 00:00:00 2022-09-23 00:00:00 [facility] History SDOH Food Worry 2022-06-13 00:00:00 2022-06-13 00:00:00 1 [facility] History SDOH Food Scarcity 2022-06-13 00:00:00 2022-06-13 00:00:00 1 [facility] History SDOH Transport Med 2022-06-13 00:00:00 2022-06-13 00:00:00 2 [facility] History SDOH Transport Non-Med 2022-06-13 00:00:00 2022-06-13 00:00:00 2 [facility] Tobacco use and exposure 2022-06-11 00:00:00 2022-06-11 00:00:00 Smokeless tobacco non-user [facility] Education - What is the highest level of school you have completed or the highest degree you have received? 2022-06-10 00:00:00 2022-06-10 00:00:00 Some college, no degree [facility] Alcohol intake 2020-12-18 00:00:00 2020-12-18 00:00:00 Lifetime non-drinker (finding) [facility] History SDOH Alcohol Frequency 2020-12-18 00:00:00 2020-12-18 00:00:00 1 [facility] Smoking Status Start Date Stop Date Source Never smoked tobacco [facility] Medications Ordered Medication Name Filled Medication Name Start Date Stop Date Current Medication? Ordering Clinician Indication Dosage Frequency Signature (SIG) Comments Components Source amitriptyli ne (ELAVIL) tablet 150 mg 08-30 15:00: 00 Yes 150mg 150 mg, Oral, DAILY, First dose on 08/30/23 at 0900, Until Discontinu ed, Routine [facility] enoxaparin (LOVENOX) injection 40 mg 08-30 15:00: 00 Yes 40mg 40 mg, Subcutaneo us, DAILY, First dose on 08/30/23 at 0900, Until Discontinu ed, Routine [facility] amitriptyli ne 150 mg tablet 08-30 14:20: 33 Yes amitriptyl ine 150 mg tablet Take 1 tablet every day by oral route for 30 days. [facility] cyclobenzap rine 10 mg tablet 08-30 14:20: 33 Yes 10mg Take 1 tablet by mouth in the morning and 1 tablet in the evening. [facility] celecoxib 200 mg capsule 08-30 14:20: 33 Yes 200mg Take 1 capsule by mouth in the morning and 1 capsule in the evening. [facility] semaglutide (OZEMPIC) 1 mg/dose (4 mg/3 mL) PnIj 08-30 14:20: 33 Yes 1.25mg inject 1.25 mg under the skin weekly. [facility] amitriptyli ne 150 mg tablet 08-30 14:20: 33 Yes amitriptyl ine 150 mg tablet Take 1 tablet every day by oral route for 30 days. [facility] cyclobenzap rine 10 mg tablet 08-30 14:20: 33 Yes 10mg Take 1 tablet by mouth in the morning and 1 tablet in the evening. [facility] celecoxib 200 mg capsule 08-30 14:20: 33 Yes 200mg Take 1 capsule by mouth in the morning and 1 capsule in the evening. [facility] semaglutide (OZEMPIC) 1 mg/dose (4 mg/3 mL) PnIj 08-30 14:20: 33 Yes 1.25mg inject 1.25 mg under the skin weekly. [facility] amitriptyli ne 150 mg tablet 08-30 14:20: 33 Yes amitriptyl ine 150 mg tablet Take 1 tablet every day by oral route for 30 days. [facility] cyclobenzap rine 10 mg tablet 08-30 14:20: 33 Yes 10mg Take 1 tablet by mouth in the morning and 1 tablet in the evening. [facility] celecoxib 200 mg capsule 08-30 14:20: 33 Yes 200mg Take 1 capsule by mouth in the morning and 1 capsule in the evening. [facility] semaglutide (OZEMPIC) 1 mg/dose (4 mg/3 mL) PnIj 08-30 14:20: 33 Yes 1.25mg inject 1.25 mg under the skin weekly. [facility] amitriptyli ne 150 mg tablet 08-30 14:20: 33 Yes amitriptyl ine 150 mg tablet Take 1 tablet every day by oral route for 30 days. [facility] cyclobenzap rine 10 mg tablet 08-30 14:20: 33 Yes 10mg Take 1 tablet by mouth in the morning and 1 tablet in the evening. [facility] celecoxib 200 mg capsule 08-30 14:20: 33 Yes 200mg Take 1 capsule by mouth in the morning and 1 capsule in the evening. [facility] semaglutide (OZEMPIC) 1 mg/dose (4 mg/3 mL) PnIj 08-30 14:20: 33 Yes 1.25mg inject 1.25 mg under the skin weekly. [facility] cyclobenzap rine (FLEXERIL) tablet 10 mg 08-30 14:00: 00 Yes 10mg 10 mg, Oral, BID, First dose on Fri08/30/23 at 0800, Until Discontinu ed, Routine [facility] cyclobenzap rine (FLEXERIL) tablet 10 mg 08-30 08:34: 16 Yes 10mg 10 mg, Oral, TIDPRN, Starting on Fri08/30/23 at 0234, Until Discontinu ed, Routine, Muscle Spasms [facility] Sliding Scale Insulin - Lispro (HumaLOG) 08-30 03:00: 00 Yes Subcutaneo us, TID MEALS+HS, First dose on Fri08/29/23 at 2100, Until Discontinu ed, Routine [facility] pantoprazol e (PROTONIX) injection 40 mg 08-30 02:00: 00 Yes 40mg 40 mg, Slow IV Push, Q24H, First dose on Fri08/29/23 at 2000, Until Discontinu ed [facility] NaCl 0.9% (NS) IV infusion 1,000 mL 08-30 01:15: 00 Yes 1000mL at 75 mL/hr, IV Infusion, CONTINUOUS , Starting on Fri08/29/23 at 1915, Until Discontinu ed, Routine [facility] iopamidol (ISOVUE 370-500 mL) injection 75 mL 08-30 00:15: 00 08-30 00:15 :00 No [id number] 75mL 75 mL, Intravenou s, ONCE, 1 dose, On Fri08/29/23 at 1815, Routine [facility] proMETHazin e (PHENERGAN) 12.5 mg in NS 50 mL IV piggyback (CNR) 08-30 00:01: 07 Yes 12.5mg 12.5 mg, IV Piggyback, at 200 mL/hr Administer over 15 Minutes, Q4HPRN, Starting on Fri08/29/23 at 1801, Until Discontinu ed, Routine, N/V unresponsi ve to Ondansetro n [facility] ondansetron (ZOFRAN (PF)) injection 4 mg 08-30 00:00: 10 Yes 4mg 4 mg, Slow IV Push, Q6HPRN, Starting on Fri08/29/23 at 1800, Until Discontinu ed, Routine, Nausea and Vomiting (N/V) [facility] glucagon (GLUCAGEN DIAGNOSTIC KIT) injection 1 mg 08-29 23:59: 42 Yes 1mg 1 mg, Intramuscu lar, PRN, Starting on Fri08/29/23 at 1759, Until Discontinu ed, KUNAL, Blood Glucose < or = 70 mg/dL and patient is NPO, unable to swallow or has mental changes. [facility] dextrose 50 % in water (D50W) injection 25 mL 08-29 23:59: 42 Yes 25mL 25 mL, Slow IV Push, PRN, Starting on Fri08/29/23 at 1759, Until Discontinu ed, KUNAL, Blood Glucose < or = 70 mg/dL and patient is NPO, unable to swallow or has mental status changes. [facility] FENTanyl PF (SUBLIMAZE (PF)) injection 25 mcg 08-29 23:59: 16 08-30 23:58 :16 Yes 25ug 25 mcg, Slow IV Push, Q3HPRN, Starting on Fri08/29/23 at 1759, Until 08/30/23 at 1758, Routine, Pain (scale 7-10) [facility] acetaminoph en (TYLENOL) tablet 650 mg 08-29 23:59: 10 Yes 650mg 650 mg, Oral, Q6HPRN, Starting on Fri08/29/23 at 1759, Until Discontinu ed, Routine, Pain (scale 1-3) [facility] haloperidol lactate (HALDOL) injection 2.5 mg 08-29 22:30: 00 08-30 00:08 :00 No 2.5mg 2.5 mg, Intravenou s, ONCE, 1 dose, On Fri08/29/23 at 1630, STAT [facility] morpHINE (4 mg/mL) injection 4 mg 08-29 21:00: 00 08-29 20:55 :00 No 4mg 4 mg, Slow IV Push, ONCE, 1 dose, On Fri08/29/23 at 1500, STAT [facility] Fesoterodin e (TOVIAZ) 4 mg tablet 08-29 20:23: 58 08-29 00:00 :00 No Toviaz 4 mg tablet,ext ended release [facility] dapaglifloz in-metformi n (XIGDUO XR) 10-500 mg [facility] 08-29 20:23: 58 08-29 00:00 :00 No Xigduo XR 10 mg-500 mg tablet,ext ended release Take 1 tablet every day by oral route for 30 days. [facility] DULoxetine 60 mg capsule 08-29 20:23: 58 08-29 00:00 :00 No 60mg Take 1 capsule by mouth in the morning. [facility] proMETHazin e (PHENERGAN) 12.5 mg in NS 50 mL IV piggyback (CNR) 08-29 20:00: 00 08-29 20:48 :00 No 12.5mg 12.5 mg, IV Piggyback, at 200 mL/hr Administer over 15 Minutes, ONCE, 1 dose, On Fri08/29/23 at 1400, [facility] iopamidol (ISOVUE 370-500 mL) injection 100 mL 08-29 20:00: 00 08-29 20:00 :00 No [id number] 100mL 100 mL, Intravenou s, ONCE, 1 dose, On Fri08/29/23 at 1400, Routine [facility] morpHINE (4 mg/mL) injection 4 mg 08-29 18:30: 00 08-29 18:45 :00 No 4mg 4 mg, Slow IV Push, ONCE, 1 dose, On Fri08/29/23 at 1230, STAT [facility] ketorolac (TORADOL) injection 30 mg 08-29 17:45: 00 08-29 16:48 :00 No 30mg 30 mg, Slow IV Push, ONCE, 1 dose, On Fri08/29/23 at 1145, Routine [facility] NaCl 0.9% (NS) bolus infusion 1,000 mL 08-29 17:30: 00 08-29 17:42 :00 No 1000mL at 999 mL/hr, 1,000 mL, IV Infusion, ONCE, 1 dose, On Fri08/29/23 at 1130, [facility] famotidine (PEPCID (PF)) injection 20 mg 08-29 16:45: 00 08-29 16:45 :00 No 20mg 20 mg, Slow IV Push, ONCE, 1 dose, On Fri08/29/23 at 1045, [facility] ondansetron (ZOFRAN (PF)) injection 4 mg 08-29 16:45: 00 08-29 16:44 :00 No 4mg 4 mg, Slow IV Push, ONCE, 1 dose, On Fri08/29/23 at 1045, [facility] HYDROcodone -Acetaminop hen 7.5-325 MG HYDROcodone -Acetaminop hen 7.5-325 MG 2022- 9-06 00:00: 00 No 1{table t_as_ne eded} QID HYDROcodon e-Acetamin ophen 7.5-325 MG HYDROcodone -Acetaminop hen 7.5-325 MG HYDROcodone -Acetaminop hen 7.5-325 MG 2023-0 9-06 00:00: 00 No 1{table t_as_ne eded} QID HYDROcodon e-Acetamin ophen 7.5-325 MG HYDROcodone -Acetaminop hen 7.5-325 MG HYDROcodone -Acetaminop hen 7.5-325 MG 2023-0 9- 00:00: 00 No 1{table t_as_ne eded} QID HYDROcodon e-Acetamin ophen 7.5-325 MG HYDROcodone -Acetaminop hen 7.5-325 MG HYDROcodone -Acetaminop hen 7.5-325 MG 2023-0 9- 00:00: 00 No 1{table t_as_ne eded} QID HYDROcodon e-Acetamin ophen 7.5-325 MG HYDROcodone -Acetaminop hen 7.5-325 MG HYDROcodone -Acetaminop hen 7.5-325 MG 2023-0 9- 00:00: 00 No 1{table t_as_ne eded} QID HYDROcodon e-Acetamin ophen 7.5-325 MG HYDROcodone -Acetaminop hen 7.5-325 MG HYDROcodone -Acetaminop hen 7.5-325 MG 2023-0 9- 00:00: 00 No 1{table t_as_ne eded} QID HYDROcodon e-Acetamin ophen 7.5-325 MG HYDROcodone -Acetaminop hen 7.5-325 MG HYDROcodone -Acetaminop hen 7.5-325 MG 2023-0 9- 00:00: 00 No 1{table t_as_ne eded} QID HYDROcodon e-Acetamin ophen 7.5-325 MG HYDROcodone -Acetaminop hen 7.5-325 MG HYDROcodone -Acetaminop hen 7.5-325 MG 2023-0 9- 00:00: 00 No 1{table t_as_ne eded} QID HYDROcodon e-Acetamin ophen 7.5-325 MG HYDROcodone -Acetaminop hen 7.5-325 MG HYDROcodone -Acetaminop hen 7.5-325 MG 2023-0 9-06 00:00: 00 No 1{table t_as_ne eded} QID HYDROcodon e-Acetamin ophen 7.5-325 MG HYDROcodone -Acetaminop hen 7.5-325 MG HYDROcodone -Acetaminop hen 7.5-325 MG 2023-0 9-06 00:00: 00 No 1{table t_as_ne eded} QID HYDROcodon e-Acetamin ophen 7.5-325 MG Xarelto 10 MG Xarelto 10 MG 2023-0 9-05 00:00: 00 No 1{table t} QD Xarelto 10 MG Xarelto 10 MG Xarelto 10 MG 2023-0 9-05 00:00: 00 No 1{table t} QD Xarelto 10 MG Xarelto 10 MG Xarelto 10 MG 3-0 9-05 00:00: 00 No 1{table t} QD Xarelto 10 MG Xarelto 10 MG Xarelto 10 MG 2023-0 9-05 00:00: 00 No 1{table t} QD Xarelto 10 MG Xarelto 10 MG Xarelto 10 MG 2023-0 9-05 00:00: 00 No 1{table t} QD Xarelto 10 MG Xarelto 10 MG Xarelto 10 MG 3-0 9-05 00:00: 00 No 1{table t} QD Xarelto 10 MG Xarelto 10 MG Xarelto 10 MG 2023-0 9-05 00:00: 00 No 1{table t} QD Xarelto 10 MG Xarelto 10 MG Xarelto 10 MG 3-0 9-05 00:00: 00 No 1{table t} QD Xarelto 10 MG Xarelto 10 MG Xarelto 10 MG 2023-0 9-05 00:00: 00 No 1{table t} QD Xarelto 10 MG Xarelto 10 MG Xarelto 10 MG 3-0 9-05 00:00: 00 No 1{table t} QD Xarelto 10 MG Lidocaine Lidocaine 3-0 6-12 00:00: 00 No 5mL [facility] Kenalog (Triamcinol one) Kenalog (Triamcinol one) 2022-0 6-12 00:00: 00 No 2mL [facility] Lidocaine Lidocaine 2022-0 -12 00:00: 00 No 5mL [facility] Kenalog (Triamcinol one) Kenalog (Triamcinol one) 0 6-12 00:00: 00 No 2mL [facility] Lidocaine Lidocaine 2022-0 -12 00:00: 00 No 5mL [facility] Kenalog (Triamcinol one) Kenalog (Triamcinol one) 2022-0 6-12 00:00: 00 No 2mL [facility] Lidocaine Lidocaine 2022-0 -12 00:00: 00 No 5mL [facility] Kenalog (Triamcinol one) Kenalog (Triamcinol one) 2022-0 6-12 00:00: 00 No 2mL [facility] Lidocaine Lidocaine 2022-0 -12 00:00: 00 No 5mL [facility] Kenalog (Triamcinol one) Kenalog (Triamcinol one) 2022-0 6-12 00:00: 00 No 2mL [facility] Lidocaine Lidocaine 2022-0 -12 00:00: 00 No 5mL [facility] Kenalog (Triamcinol one) Kenalog (Triamcinol one) 2022-0 6-12 00:00: 00 No 2mL [facility] Lidocaine Lidocaine 2022-0 -12 00:00: 00 No 5mL [facility] Kenalog (Triamcinol one) Kenalog (Triamcinol one) 2022-0 6-12 00:00: 00 No 2mL [facility] Lidocaine Lidocaine 2022-0 -12 00:00: 00 No 5mL [facility] Kenalog (Triamcinol one) Kenalog (Triamcinol one) 2022-0 6-12 00:00: 00 No 2mL [facility] Lidocaine Lidocaine 2022-0 6-12 00:00: 00 No 5mL [facility] Kenalog (Triamcinol one) Kenalog (Triamcinol one) 01-13 00:00: 00 No 2mL [facility] Lidocaine Lidocaine 01-13 00:00: 00 No 5mL [facility] Kenalog (Triamcinol one) Kenalog (Triamcinol one) 01-13 00:00: 00 No 2mL [facility] atorvastati n 10 mg tablet 12-27 09:06: 57 12-27 00:00 :00 No 10mg Take 1 tablet by mouth in the morning. [facility] atorvastati n 10 mg tablet 12-27 09:06: 57 12-27 00:00 :00 No 10mg Take 1 tablet by mouth in the morning. [facility] atorvastati n 10 mg tablet 12-27 09:06: 57 12-27 00:00 :00 No 10mg Take 1 tablet by mouth in the morning. [facility] amitriptyli ne 150 mg tablet 12-27 08:56: 31 Yes amitriptyl ine 150 mg tablet Take 1 tablet every day by oral route for 30 days. [facility] Fesoterodin e (TOVIAZ) 4 mg tablet 12-27 08:56: 31 Yes Toviaz 4 mg tablet,ext ended release [facility] dapaglifloz in-metformi n (XIGDUO XR) 10-500 mg [facility] 12-27 08:56: 31 Yes Xigduo XR 10 mg-500 mg tablet,ext ended release Take 1 tablet every day by oral route for 30 days. [facility] cyclobenzap rine 10 mg tablet 12-27 08:56: 31 Yes 10mg Take 1 tablet by mouth in the morning and 1 tablet in the evening. [facility] DULoxetine 60 mg capsule 12-27 08:56: 31 Yes 60mg Take 1 capsule by mouth in the morning. [facility] celecoxib 200 mg capsule 12-27 08:56: 31 Yes 200mg Take 1 capsule by mouth in the morning and 1 capsule in the evening. [facility] semaglutide (OZEMPIC) 1 mg/dose (4 mg/3 mL) PnIj 12-27 08:56: 31 Yes 1.25mg inject 1.25 mg under the skin weekly. [facility] amitriptyli ne 150 mg tablet 12-27 08:56: 31 Yes amitriptyl ine 150 mg tablet Take 1 tablet every day by oral route for 30 days. [facility] Fesoterodin e (TOVIAZ) 4 mg tablet 12-27 08:56: 31 Yes Toviaz 4 mg tablet,ext ended release [facility] dapaglifloz in-metformi n (XIGDUO XR) 10-500 mg [facility] 12-27 08:56: 31 Yes Xigduo XR 10 mg-500 mg tablet,ext ended release Take 1 tablet every day by oral route for 30 days. [facility] cyclobenzap rine 10 mg tablet 12-27 08:56: 31 Yes 10mg Take 1 tablet by mouth in the morning and 1 tablet in the evening. [facility] DULoxetine 60 mg capsule 12-27 08:56: 31 Yes 60mg Take 1 capsule by mouth in the morning. [facility] celecoxib 200 mg capsule 12-27 08:56: 31 Yes 200mg Take 1 capsule by mouth in the morning and 1 capsule in the evening. [facility] semaglutide (OZEMPIC) 1 mg/dose (4 mg/3 mL) PnIj 12-27 08:56: 31 Yes 1.25mg inject 1.25 mg under the skin weekly. [facility] amitriptyli ne 150 mg tablet 12-27 08:56: 31 Yes amitriptyl ine 150 mg tablet Take 1 tablet every day by oral route for 30 days. [facility] Fesoterodin e (TOVIAZ) 4 mg tablet 12-27 08:56: 31 Yes Toviaz 4 mg tablet,ext ended release [facility] dapaglifloz in-metformi n (XIGDUO XR) 10-500 mg [facility] 12-27 08:56: 31 Yes Xigduo XR 10 mg-500 mg tablet,ext ended release Take 1 tablet every day by oral route for 30 days. [facility] cyclobenzap rine 10 mg tablet 12-27 08:56: 31 Yes 10mg Take 1 tablet by mouth in the morning and 1 tablet in the evening. [facility] DULoxetine 60 mg capsule 12-27 08:56: 31 Yes 60mg Take 1 capsule by mouth in the morning. [facility] celecoxib 200 mg capsule 12-27 08:56: 31 Yes 200mg Take 1 capsule by mouth in the morning and 1 capsule in the evening. [facility] semaglutide (OZEMPIC) 1 mg/dose (4 mg/3 mL) PnIj 12-27 08:56: 31 Yes 1.25mg inject 1.25 mg under the skin weekly. [facility] amitriptyli ne 150 mg tablet 12-27 08:56: 31 Yes amitriptyl ine 150 mg tablet Take 1 tablet every day by oral route for 30 days. [facility] Fesoterodin e (TOVIAZ) 4 mg tablet 12-27 08:56: 31 Yes Toviaz 4 mg tablet,ext ended release [facility] dapaglifloz in-metformi n (XIGDUO XR) 10-500 mg [facility] 12-27 08:56: 31 Yes Xigduo XR 10 mg-500 mg tablet,ext ended release Take 1 tablet every day by oral route for 30 days. [facility] cyclobenzap rine 10 mg tablet 12-27 08:56: 31 Yes 10mg Take 1 tablet by mouth in the morning and 1 tablet in the evening. [facility] DULoxetine 60 mg capsule 12-27 08:56: 31 Yes 60mg Take 1 capsule by mouth in the morning. [facility] celecoxib 200 mg capsule 12-27 08:56: 31 Yes 200mg Take 1 capsule by mouth in the morning and 1 capsule in the evening. [facility] semaglutide (OZEMPIC) 1 mg/dose (4 mg/3 mL) PnIj 12-27 08:56: 31 Yes 1.25mg inject 1.25 mg under the skin weekly. [facility] amitriptyli ne 150 mg tablet 12-27 08:56: 31 Yes amitriptyl ine 150 mg tablet Take 1 tablet every day by oral route for 30 days. [facility] Fesoterodin e (TOVIAZ) 4 mg tablet 12-27 08:56: 31 Yes Toviaz 4 mg tablet,ext ended release [facility] dapaglifloz in-metformi n (XIGDUO XR) 10-500 mg [facility] 12-27 08:56: 31 Yes Xigduo XR 10 mg-500 mg tablet,ext ended release Take 1 tablet every day by oral route for 30 days. [facility] cyclobenzap rine 10 mg tablet 12-27 08:56: 31 Yes 10mg Take 1 tablet by mouth in the morning and 1 tablet in the evening. [facility] DULoxetine 60 mg capsule 12-27 08:56: 31 Yes 60mg Take 1 capsule by mouth in the morning. [facility] celecoxib 200 mg capsule 12-27 08:56: 31 Yes 200mg Take 1 capsule by mouth in the morning and 1 capsule in the evening. [facility] semaglutide (OZEMPIC) 1 mg/dose (4 mg/3 mL) PnIj 12-27 08:56: 31 Yes 1.25mg inject 1.25 mg under the skin weekly. [facility] amitriptyli ne 150 mg tablet 12-27 08:56: 31 Yes amitriptyl ine 150 mg tablet Take 1 tablet every day by oral route for 30 days. [facility] Fesoterodin e (TOVIAZ) 4 mg tablet 12-27 08:56: 31 Yes Toviaz 4 mg tablet,ext ended release [facility] dapaglifloz in-metformi n (XIGDUO XR) 10-500 mg [facility] 12-27 08:56: 31 Yes Xigduo XR 10 mg-500 mg tablet,ext ended release Take 1 tablet every day by oral route for 30 days. [facility] cyclobenzap rine 10 mg tablet 12-27 08:56: 31 Yes 10mg Take 1 tablet by mouth in the morning and 1 tablet in the evening. [facility] DULoxetine 60 mg capsule 12-27 08:56: 31 Yes 60mg Take 1 capsule by mouth in the morning. [facility] celecoxib 200 mg capsule 12-27 08:56: 31 Yes 200mg Take 1 capsule by mouth in the morning and 1 capsule in the evening. [facility] semaglutide (OZEMPIC) 1 mg/dose (4 mg/3 mL) PnIj 12-27 08:56: 31 Yes 1.25mg inject 1.25 mg under the skin weekly. [facility] traMADoL 50 mg tablet 12-21 00:00: 00 Yes TAKE 1 TABLET BY MOUTH EVERY 8 HOURS NEEDED FOR 10 DAYS [facility] traMADoL 50 mg tablet 12-21 00:00: 00 Yes TAKE 1 TABLET BY MOUTH EVERY 8 HOURS NEEDED FOR 10 DAYS [facility] traMADoL 50 mg tablet 12-21 00:00: 00 Yes TAKE 1 TABLET BY MOUTH EVERY 8 HOURS NEEDED FOR 10 DAYS [facility] traMADoL 50 mg tablet 12-21 00:00: 00 Yes TAKE 1 TABLET BY MOUTH EVERY 8 HOURS NEEDED FOR 10 DAYS [facility] traMADoL 50 mg tablet 12-21 00:00: 00 Yes TAKE 1 TABLET BY MOUTH EVERY 8 HOURS NEEDED FOR 10 DAYS [facility] traMADoL 50 mg tablet 12-21 00:00: 00 08-29 00:00 :00 No TAKE 1 TABLET BY MOUTH EVERY 8 HOURS NEEDED FOR 10 DAYS [facility] clonazePAM 0.5 mg tablet 0 12-20 00:00: 00 Yes TAKE 1 TABLET BY MOUTH THREE TIMES A DAY NEEDED FOR 15 DAYS [facility] clonazePAM 0.5 mg tablet 2022-0 12-20 00:00: 00 Yes TAKE 1 TABLET BY MOUTH THREE TIMES A DAY NEEDED FOR 15 DAYS [facility] clonazePAM 0.5 mg tablet 0 12-20 00:00: 00 Yes TAKE 1 TABLET BY MOUTH THREE TIMES A DAY NEEDED FOR 15 DAYS [facility] clonazePAM 0.5 mg tablet 0 12-20 00:00: 00 Yes TAKE 1 TABLET BY MOUTH THREE TIMES A DAY NEEDED FOR 15 DAYS [facility] clonazePAM 0.5 mg tablet 2022-0 12-20 00:00: 00 Yes TAKE 1 TABLET BY MOUTH THREE TIMES A DAY NEEDED FOR 15 DAYS [facility] clonazePAM 0.5 mg tablet 0 12-20 00:00: 00 08-29 00:00 :00 No TAKE 1 TABLET BY MOUTH THREE TIMES A DAY NEEDED FOR 15 DAYS [facility] FENTanyl PF (SUBLIMAZE (PF)) injection 25 mcg 09-23 14:14: 37 Yes 25ug 25 mcg, Slow IV Push, Q5MIN PRN, 4 doses, Starting on Fri09/23/22 at 0814, Until Discontinu ed, Routine, Pain (scale 4-6), PACU [facility] ondansetron (ZOFRAN (PF)) injection 4 mg 09-23 14:14: 37 09-23 14:16 :00 No 4mg 4 mg, Slow IV Push, PRN, 1 dose, Starting on Fri09/23/22 at 0814, Until Fri09/23/22 at 0816, Routine, Nausea and Vomiting (N/V), PACU [facility] FENTanyl PF (SUBLIMAZE (PF)) injection 25 mcg 09-23 14:14: 37 09-23 17:13 :49 No 25ug 25 mcg, Slow IV Push, Q5MIN PRN, 4 doses, Starting on Fri09/23/22 at 0814, Until Fri09/23/22 at 1113, Routine, Pain (scale 4-6), PACU [facility] ondansetron (ZOFRAN (PF)) injection 4 mg 09-23 14:14: 37 09-23 14:16 :00 No 4mg 4 mg, Slow IV Push, PRN, 1 dose, Starting on Fri09/23/22 at 0814, Until Fri09/23/22 at 0816, Routine, Nausea and Vomiting (N/V), PACU [facility] triamcinolo ne acetonide (KENALOG) injection 09-23 13:55: 00 09-23 17:13 :49 No PRN, Starting on Fri09/23/22 at 0755, Until Fri09/23/22 at 1113, Routine, Intra-op [facility] bupivacaine (preserv free) 0.5% (SENSORCAIN E MPF) 0.5 % (5 mg/mL) injection 09-23 13:55: 00 09-23 17:13 :49 No PRN, Starting on Fri09/23/22 at 0755, Until Fri09/23/22 at 1113, Routine, Intra-op [facility] triamcinolo ne acetonide (KENALOG) injection 09-23 13:53: 00 09-23 17:13 :49 No PRN, Starting on Fri09/23/22 at 0753, Until Fri09/23/22 at 1113, Routine, Intra-op [facility] bupivacaine (preserv free) 0.5% (SENSORCAIN E MPF) 0.5 % (5 mg/mL) injection 09-23 13:53: 00 09-23 17:13 :49 No PRN, Starting on Fri09/23/22 at 0753, Until Fri09/23/22 at 1113, Routine, Intra-op [facility] lactated ringers IV infusion 1,000 mL 09-23 12:45: 00 09-23 13:02 :00 No 1000mL at 42 mL/hr, 1,000 mL, IV Infusion, ONCE, 1 dose, On Fri09/23/22 at 0645, Routine, DSU Pre-op [facility] lactated ringers IV infusion 1,000 mL 09-23 12:45: 00 09-23 13:02 :00 No 1000mL at 42 mL/hr, 1,000 mL, IV Infusion, ONCE, 1 dose, On Fri09/23/22 at 0645, Routine, DSU Pre-op [facility] amitriptyli ne 150 mg tablet 09-23 09:08: 45 Yes amitriptyl ine 150 mg tablet Take 1 tablet every day by oral route for 30 days. [facility] Fesoterodin e (TOVIAZ) 4 mg tablet 09-23 09:08: 45 Yes Toviaz 4 mg tablet,ext ended release [facility] dapaglifloz in-metformi n (XIGDUO XR) 10-500 mg [facility] 09-23 09:08: 45 Yes Xigduo XR 10 mg-500 mg tablet,ext ended release Take 1 tablet every day by oral route for 30 days. [facility] cyclobenzap rine 10 mg tablet 09-23 09:08: 45 Yes 10mg Take 10 mg by mouth 2 (two) times daily. [facility] DULoxetine 60 mg capsule 09-23 09:08: 45 Yes 60mg Take 60 mg by mouth daily. [facility] atorvastati n 10 mg tablet 09-23 09:08: 45 Yes 10mg Take 10 mg by mouth in the morning. [facility] celecoxib 200 mg capsule 09-23 09:08: 45 Yes 200mg Take 200 mg by mouth in the morning and 200 mg in the evening. [facility] semaglutide (OZEMPIC) 1 mg/dose (4 mg/3 mL) PnIj 09-23 09:08: 45 Yes 1.25mg inject 1.25 mg under the skin weekly. [facility] amitriptyli ne 150 mg tablet 09-23 09:08: 45 Yes amitriptyl ine 150 mg tablet Take 1 tablet every day by oral route for 30 days. [facility] Fesoterodin e (TOVIAZ) 4 mg tablet 09-23 09:08: 45 Yes Toviaz 4 mg tablet,ext ended release [facility] dapaglifloz in-metformi n (XIGDUO XR) 10-500 mg [facility] 09-23 09:08: 45 Yes Xigduo XR 10 mg-500 mg tablet,ext ended release Take 1 tablet every day by oral route for 30 days. [facility] cyclobenzap rine 10 mg tablet 09-23 09:08: 45 Yes 10mg Take 10 mg by mouth 2 (two) times daily. [facility] DULoxetine 60 mg capsule 09-23 09:08: 45 Yes 60mg Take 60 mg by mouth daily. [facility] atorvastati n 10 mg tablet 09-23 09:08: 45 Yes 10mg Take 10 mg by mouth in the morning. [facility] celecoxib 200 mg capsule 09-23 09:08: 45 Yes 200mg Take 200 mg by mouth in the morning and 200 mg in the evening. [facility] semaglutide (OZEMPIC) 1 mg/dose (4 mg/3 mL) PnIj 09-23 09:08: 45 Yes 1.25mg inject 1.25 mg under the skin weekly. [facility] amitriptyli ne 150 mg tablet 09-23 09:08: 45 Yes amitriptyl ine 150 mg tablet Take 1 tablet every day by oral route for 30 days. [facility] Fesoterodin e (TOVIAZ) 4 mg tablet 09-23 09:08: 45 Yes Toviaz 4 mg tablet,ext ended release [facility] dapaglifloz in-metformi n (XIGDUO XR) 10-500 mg [facility] 09-23 09:08: 45 Yes Xigduo XR 10 mg-500 mg tablet,ext ended release Take 1 tablet every day by oral route for 30 days. [facility] cyclobenzap rine 10 mg tablet 09-23 09:08: 45 Yes 10mg Take 10 mg by mouth 2 (two) times daily. [facility] DULoxetine 60 mg capsule 09-23 09:08: 45 Yes 60mg Take 60 mg by mouth daily. [facility] atorvastati n 10 mg tablet 09-23 09:08: 45 Yes 10mg Take 10 mg by mouth in the morning. [facility] celecoxib 200 mg capsule 09-23 09:08: 45 Yes 200mg Take 200 mg by mouth in the morning and 200 mg in the evening. [facility] semaglutide (OZEMPIC) 1 mg/dose (4 mg/3 mL) PnIj 09-23 09:08: 45 Yes 1.25mg inject 1.25 mg under the skin weekly. [facility] aspirin 325 mg tablet 09-23 00:00: 00 10-22 04:59 :00 No [id number] 325mg Take 1 tablet by mouth in the morning and 1 tablet in the evening. Take with meals. Do all this for 28 days. [facility] aspirin 325 mg tablet 20 00:00: 00 10-22 04:59 :00 No [id number] 325mg Take 1 tablet by mouth in the morning and 1 tablet in the evening. Take with meals. Do all this for 28 days. [facility] aspirin 325 mg tablet 20 00:00: 00 10-22 04:59 :00 No [id number] 325mg Take 1 tablet by mouth in the morning and 1 tablet in the evening. Take with meals. Do all this for 28 days. [facility] semaglutide (OZEMPIC) 1 mg/dose (4 mg/3 mL) PnIj 2-14 13:39: 54 Yes 1.25mg inject 1.25 mg under the skin weekly. [facility] semaglutide (OZEMPIC) 1 mg/dose (4 mg/3 mL) PnIj 2022-0 -14 13:39: 54 Yes 1.25mg inject 1.25 mg under the skin weekly. [facility] semaglutide (OZEMPIC) 1 mg/dose (4 mg/3 mL) PnIj 0 -14 13:39: 54 Yes 1.25mg inject 1.25 mg under the skin weekly. [facility] semaglutide (OZEMPIC) 1 mg/dose (4 mg/3 mL) PnIj 2022-0 -14 13:39: 54 Yes 1.25mg inject 1.25 mg under the skin weekly. [facility] semaglutide (OZEMPIC) 1 mg/dose (4 mg/3 mL) Ij 0 -14 13:39: 54 Yes 1.25mg inject 1.25 mg under the skin weekly. [facility] atorvastati n 10 mg tablet 2022-0 -14 13:19: 59 Yes 10mg Take 10 mg by mouth in the morning. [facility] celecoxib 200 mg capsule 2022-0 -14 13:19: 59 Yes 200mg Take 200 mg by mouth in the morning and 200 mg in the evening. [facility] atorvastati n 10 mg tablet 2022-0 -14 13:19: 59 Yes 10mg Take 10 mg by mouth in the morning. [facility] celecoxib 200 mg capsule 2022-0 -14 13:19: 59 Yes 200mg Take 200 mg by mouth in the morning and 200 mg in the evening. [facility] atorvastati n 10 mg tablet 3-0 -14 13:19: 59 Yes 10mg Take 10 mg by mouth in the morning. [facility] celecoxib 200 mg capsule 2022-0 2-14 13:19: 59 Yes 200mg Take 200 mg by mouth in the morning and 200 mg in the evening. [facility] atorvastati n 10 mg tablet 2022-0 -14 13:19: 59 Yes 10mg Take 10 mg by mouth in the morning. [facility] celecoxib 200 mg capsule 09-17 13:19: 59 Yes 200mg Take 200 mg by mouth in the morning and 200 mg in the evening. [facility] atorvastati n 10 mg tablet 09-17 13:19: 59 Yes 10mg Take 10 mg by mouth in the morning. [facility] celecoxib 200 mg capsule 09-17 13:19: 59 Yes 200mg Take 200 mg by mouth in the morning and 200 mg in the evening. [facility] amitriptyli ne 150 mg tablet 09-17 13:09: 47 Yes amitriptyl ine 150 mg tablet Take 1 tablet every day by oral route for 30 days. [facility] Fesoterodin e (TOVIAZ) 4 mg tablet 09-17 13:09: 47 Yes Toviaz 4 mg tablet,ext ended release [facility] dapaglifloz in-metformi n (XIGDUO XR) 10-500 mg [facility] 09-17 13:09: 47 Yes Xigduo XR 10 mg-500 mg tablet,ext ended release Take 1 tablet every day by oral route for 30 days. [facility] cyclobenzap rine 10 mg tablet 09-17 13:09: 47 Yes 10mg Take 10 mg by mouth 2 (two) times daily. [facility] DULoxetine 60 mg capsule 09-17 13:09: 47 Yes 60mg Take 60 mg by mouth daily. [facility] amitriptyli ne 150 mg tablet 09-17 13:09: 47 Yes amitriptyl ine 150 mg tablet Take 1 tablet every day by oral route for 30 days. [facility] Fesoterodin e (TOVIAZ) 4 mg tablet 09-17 13:09: 47 Yes Toviaz 4 mg tablet,ext ended release [facility] dapaglifloz in-metformi n (XIGDUO XR) 10-500 mg [facility] 09-17 13:09: 47 Yes Xigduo XR 10 mg-500 mg tablet,ext ended release Take 1 tablet every day by oral route for 30 days. [facility] cyclobenzap rine 10 mg tablet 09-17 13:09: 47 Yes 10mg Take 10 mg by mouth 2 (two) times daily. [facility] DULoxetine 60 mg capsule 09-17 13:09: 47 Yes 60mg Take 60 mg by mouth daily. [facility] amitriptyli ne 150 mg tablet 09-17 13:09: 47 Yes amitriptyl ine 150 mg tablet Take 1 tablet every day by oral route for 30 days. [facility] Fesoterodin e (TOVIAZ) 4 mg tablet 09-17 13:09: 47 Yes Toviaz 4 mg tablet,ext ended release [facility] dapaglifloz in-metformi n (XIGDUO XR) 10-500 mg [facility] 09-17 13:09: 47 Yes Xigduo XR 10 mg-500 mg tablet,ext ended release Take 1 tablet every day by oral route for 30 days. [facility] cyclobenzap rine 10 mg tablet 09-17 13:09: 47 Yes 10mg Take 10 mg by mouth 2 (two) times daily. [facility] DULoxetine 60 mg capsule 09-17 13:09: 47 Yes 60mg Take 60 mg by mouth daily. [facility] amitriptyli ne 150 mg tablet 09-17 13:09: 47 Yes amitriptyl ine 150 mg tablet Take 1 tablet every day by oral route for 30 days. [facility] Fesoterodin e (TOVIAZ) 4 mg tablet 09-17 13:09: 47 Yes Toviaz 4 mg tablet,ext ended release [facility] dapaglifloz in-metformi n (XIGDUO XR) 10-500 mg [facility] 09-17 13:09: 47 Yes Xigduo XR 10 mg-500 mg tablet,ext ended release Take 1 tablet every day by oral route for 30 days. [facility] cyclobenzap rine 10 mg tablet 09-17 13:09: 47 Yes 10mg Take 10 mg by mouth 2 (two) times daily. [facility] DULoxetine 60 mg capsule 09-17 13:09: 47 Yes 60mg Take 60 mg by mouth daily. [facility] amitriptyli ne 150 mg tablet 09-17 13:09: 47 Yes amitriptyl ine 150 mg tablet Take 1 tablet every day by oral route for 30 days. [facility] Fesoterodin e (TOVIAZ) 4 mg tablet 09-17 13:09: 47 Yes Toviaz 4 mg tablet,ext ended release [facility] dapaglifloz in-metformi n (XIGDUO XR) 10-500 mg [facility] 09-17 13:09: 47 Yes Xigduo XR 10 mg-500 mg tablet,ext ended release Take 1 tablet every day by oral route for 30 days. [facility] cyclobenzap rine 10 mg tablet 09-17 13:09: 47 Yes 10mg Take 10 mg by mouth 2 (two) times daily. [facility] DULoxetine 60 mg capsule 09-17 13:09: 47 Yes 60mg Take 60 mg by mouth daily. [facility] cefTRIAXone (ROCEPHIN) 1,000 mg in NaCl 0.9% (NS) 50 mL MINI-BAG 2021-08 18:00: 00 06-15 17:59 :00 No 1000mg 1,000 mg, IV Piggyback, Q24H ABX, 2 doses, First dose (after last modificati on) on Fri06/13/22 at 1200, Last dose on Fri06/14/22 at 1200, Administer over 30 Minutes, 50 mL
Reas on for Anti-Infec tive: Documented Infection< br>Documen billy Infection Site: Urine
D uration of Therapy: 7 days [facility] lactobacill us acidophilus 2021-08 00:00: 00 07-14 05:59 :00 No [id number] .5mg Take 1 tablet by mouth in the morning for 30 days. [facility] polyethylen e glycol 3350 17 gram powder 2021-08 00:00: 00 07-14 05:59 :00 No [id number] 17g Take 1 Packet by mouth in the morning for 30 days. [facility] lactobacill us acidophilus 2021-08 00:00: 00 07-14 05:59 :00 No [id number] .5mg Take 1 tablet by mouth in the morning for 30 days. [facility] polyethylen e glycol 3350 17 gram powder 2021-08 00:00: 00 07-14 05:59 :00 No [id number] 17g Take 1 Packet by mouth in the morning for 30 days. [facility] sennosides- docusate sodium (SENOKOT-S) 8.6-50 mg per tablet 1 tablet 2021-08 16:15: 00 Yes 1{tbl} 1 tablet, Oral, DAILY, First dose on Fri06/12/22 at 1015, Until Discontinu ed, Routine [facility] polyethylen e glycol 3350 powder 17 g 2021-08 16:15: 00 Yes 17g 17 g, Oral, DAILY, First dose on Fri06/12/22 at 1015, Until Discontinu ed, Routine [facility] amitriptyli ne 150 mg tablet 2021-08 16:08: 30 Yes amitriptyl ine 150 mg tablet Take 1 tablet every day by oral route for 30 days. [facility] Fesoterodin e (TOVIAZ) 4 mg tablet 2021-08 16:08: 30 Yes Toviaz 4 mg tablet,ext ended release [facility] dapaglifloz in-metformi n (XIGDUO XR) 10-500 mg [facility] 2021-08 16:08: 30 Yes Xigduo XR 10 mg-500 mg tablet,ext ended release Take 1 tablet every day by oral route for 30 days. [facility] cyclobenzap rine 10 mg tablet 2021-08 16:08: 30 Yes 10mg Take 10 mg by mouth 2 (two) times daily. [facility] DULoxetine 60 mg capsule 2021-08 16:08: 30 Yes 60mg Take 60 mg by mouth daily. [facility] amitriptyli ne 150 mg tablet 2021-08 16:08: 30 Yes amitriptyl ine 150 mg tablet Take 1 tablet every day by oral route for 30 days. [facility] Fesoterodin e (TOVIAZ) 4 mg tablet 2021-08 16:08: 30 Yes Toviaz 4 mg tablet,ext ended release [facility] dapaglifloz in-metformi n (XIGDUO XR) 10-500 mg [facility] 2021-08 16:08: 30 Yes Xigduo XR 10 mg-500 mg tablet,ext ended release Take 1 tablet every day by oral route for 30 days. [facility] cyclobenzap rine 10 mg tablet 2021-08 16:08: 30 Yes 10mg Take 10 mg by mouth 2 (two) times daily. [facility] DULoxetine 60 mg capsule 2021-08 16:08: 30 Yes 60mg Take 60 mg by mouth daily. [facility] amitriptyli ne 150 mg tablet 2021-08 16:08: 30 Yes amitriptyl ine 150 mg tablet Take 1 tablet every day by oral route for 30 days. [facility] Fesoterodin e (TOVIAZ) 4 mg tablet 2021-08 16:08: 30 Yes Toviaz 4 mg tablet,ext ended release [facility] dapaglifloz in-metformi n (XIGDUO XR) 10-500 mg [facility] 2021-08 16:08: 30 Yes Xigduo XR 10 mg-500 mg tablet,ext ended release Take 1 tablet every day by oral route for 30 days. [facility] cyclobenzap rine 10 mg tablet 2021-08 16:08: 30 Yes 10mg Take 10 mg by mouth 2 (two) times daily. [facility] DULoxetine 60 mg capsule 2021-08 16:08: 30 Yes 60mg Take 60 mg by mouth daily. [facility] amitriptyli ne 150 mg tablet 2021-08 16:08: 30 Yes amitriptyl ine 150 mg tablet Take 1 tablet every day by oral route for 30 days. [facility] Fesoterodin e (TOVIAZ) 4 mg tablet 2021-08 16:08: 30 Yes Toviaz 4 mg tablet,ext ended release [facility] dapaglifloz in-metformi n (XIGDUO XR) 10-500 mg [facility] 2021-08 16:08: 30 Yes Xigduo XR 10 mg-500 mg tablet,ext ended release Take 1 tablet every day by oral route for 30 days. [facility] cyclobenzap rine 10 mg tablet 2021-08 16:08: 30 Yes 10mg Take 10 mg by mouth 2 (two) times daily. [facility] DULoxetine 60 mg capsule 2021-08 16:08: 30 Yes 60mg Take 60 mg by mouth daily. [facility] amitriptyli ne 150 mg tablet 2021-08 16:08: 30 Yes amitriptyl ine 150 mg tablet Take 1 tablet every day by oral route for 30 days. [facility] Fesoterodin e (TOVIAZ) 4 mg tablet 2021-08 16:08: 30 Yes Toviaz 4 mg tablet,ext ended release [facility] dapaglifloz in-metformi n (XIGDUO XR) 10-500 mg [facility] 2021-08 16:08: 30 Yes Xigduo XR 10 mg-500 mg tablet,ext ended release Take 1 tablet every day by oral route for 30 days. [facility] cyclobenzap rine 10 mg tablet 2021-08 16:08: 30 Yes 10mg Take 10 mg by mouth 2 (two) times daily. [facility] DULoxetine 60 mg capsule 2021-08 16:08: 30 Yes 60mg Take 60 mg by mouth daily. [facility] amitriptyli ne 150 mg tablet 2021-08 16:08: 30 Yes amitriptyl ine 150 mg tablet Take 1 tablet every day by oral route for 30 days. [facility] Fesoterodin e (TOVIAZ) 4 mg tablet 2021-08 16:08: 30 Yes Toviaz 4 mg tablet,ext ended release [facility] dapaglifloz in-metformi n (XIGDUO XR) 10-500 mg [facility] 2021-08 16:08: 30 Yes Xigduo XR 10 mg-500 mg tablet,ext ended release Take 1 tablet every day by oral route for 30 days. [facility] cyclobenzap rine 10 mg tablet 2021-08 16:08: 30 Yes 10mg Take 10 mg by mouth 2 (two) times daily. [facility] DULoxetine 60 mg capsule 2021-08 16:08: 30 Yes 60mg Take 60 mg by mouth daily. [facility] amitriptyli ne 150 mg tablet 2021-08 16:08: 30 Yes amitriptyl ine 150 mg tablet Take 1 tablet every day by oral route for 30 days. [facility] Fesoterodin e (TOVIAZ) 4 mg tablet 2021-08 16:08: 30 Yes Toviaz 4 mg tablet,ext ended release [facility] dapaglifloz in-metformi n (XIGDUO XR) 10-500 mg [facility] 2021-08 16:08: 30 Yes Xigduo XR 10 mg-500 mg tablet,ext ended release Take 1 tablet every day by oral route for 30 days. [facility] cyclobenzap rine 10 mg tablet 2021-08 16:08: 30 Yes 10mg Take 10 mg by mouth 2 (two) times daily. [facility] DULoxetine 60 mg capsule 2021-08 16:08: 30 Yes 60mg Take 60 mg by mouth daily. [facility] amitriptyli ne 150 mg tablet 2021-08 16:08: 30 Yes amitriptyl ine 150 mg tablet Take 1 tablet every day by oral route for 30 days. [facility] Fesoterodin e (TOVIAZ) 4 mg tablet 2021-08 16:08: 30 Yes Toviaz 4 mg tablet,ext ended release [facility] dapaglifloz in-metformi n (XIGDUO XR) 10-500 mg [facility] 2021-08 16:08: 30 Yes Xigduo XR 10 mg-500 mg tablet,ext ended release Take 1 tablet every day by oral route for 30 days. [facility] cyclobenzap rine 10 mg tablet 2021-08 16:08: 30 Yes 10mg Take 10 mg by mouth 2 (two) times daily. [facility] DULoxetine 60 mg capsule 2021-08 16:08: 30 Yes 60mg Take 60 mg by mouth daily. [facility] amitriptyli ne 150 mg tablet 2021-08 16:08: 30 Yes amitriptyl ine 150 mg tablet Take 1 tablet every day by oral route for 30 days. [facility] Fesoterodin e (TOVIAZ) 4 mg tablet 2021-08 16:08: 30 Yes Toviaz 4 mg tablet,ext ended release [facility] dapaglifloz in-metformi n (XIGDUO XR) 10-500 mg [facility] 2021-08 16:08: 30 Yes Xigduo XR 10 mg-500 mg tablet,ext ended release Take 1 tablet every day by oral route for 30 days. [facility] cyclobenzap rine 10 mg tablet 2021-08 16:08: 30 Yes 10mg Take 10 mg by mouth 2 (two) times daily. [facility] DULoxetine 60 mg capsule 2021-08 16:08: 30 Yes 60mg Take 60 mg by mouth daily. [facility] proMETHazin e 25 mg tablet 2021-08 00:00: 00 Yes [id number] 25mg Take 1 tablet by mouth every 4 (four) hours as needed for N/V unresponsi ve to Ondansetro n. [facility] proMETHazin e 25 mg tablet 2021-08 00:00: 00 Yes [id number] 25mg Take 1 tablet by mouth every 4 (four) hours as needed for N/V unresponsi ve to Ondansetro n. [facility] proMETHazin e 25 mg tablet 2021-08 00:00: 00 Yes [id number] 25mg Take 1 tablet by mouth every 4 (four) hours as needed for N/V unresponsi ve to Ondansetro n. [facility] proMETHazin e 25 mg tablet 2021-08 00:00: 00 Yes [id number] 25mg Take 1 tablet by mouth every 4 (four) hours as needed for N/V unresponsi ve to Ondansetro n. [facility] proMETHazin e 25 mg tablet 2021-08 00:00: 00 Yes [id number] 25mg Take 1 tablet by mouth every 4 (four) hours as needed for N/V unresponsi ve to Ondansetro n. [facility] proMETHazin e 25 mg tablet 2021-08 00:00: 00 Yes [id number] 25mg Take 1 tablet by mouth every 4 (four) hours as needed for N/V unresponsi ve to Ondansetro n. [facility] proMETHazin e 25 mg tablet 2021-08 00:00: 00 Yes [id number] 25mg Take 1 tablet by mouth every 4 (four) hours as needed for N/V unresponsi ve to Ondansetro n. [facility] proMETHazin e 25 mg tablet 2021-08 00:00: 00 Yes [id number] 25mg Take 1 tablet by mouth every 4 (four) hours as needed for N/V unresponsi ve to Ondansetro n. [facility] proMETHazin e 25 mg tablet 2021-08 00:00: 00 Yes [id number] 25mg Take 1 tablet by mouth every 4 (four) hours as needed for N/V unresponsi ve to Ondansetro n. [facility] proMETHazin e 25 mg tablet 2021-08 00:00: 09-17 00:00 :00 No [id number] 25mg Take 1 tablet by mouth every 4 (four) hours as needed for N/V unresponsi ve to Ondansetro n. [facility] proMETHazin e 25 mg tablet 2021-08 00:00: 00 09-17 00:00 :00 No [id number] 25mg Take 1 tablet by mouth every 4 (four) hours as needed for N/V unresponsi ve to Ondansetro n. [facility] docusate 100 mg capsule 2021-08 00:00: 00 07-13 05:59 :00 No [id number] 100mg Take 1 capsule by mouth in the morning and 1 capsule in the evening. Do all this for 30 days. [facility] docusate 100 mg capsule 2021-08 00:00: 00 07-13 05:59 :00 No [id number] 100mg Take 1 capsule by mouth in the morning and 1 capsule in the evening. Do all this for 30 days. [facility] HYDROcodone -acetaminop hen 5-325 mg tablet 2021-08 00:00: 00 06-20 05:59 :00 No [id number] 1{tbl} Take 1 tablet by mouth every 6 (six) hours as needed for Pain (scale 7-10) for up to 7 days. Indication s: acute pain [facility] ciprofloxac in HCl 500 mg tablet 2021-08 00:00: 00 06-20 05:59 :00 No [id number] 500mg Take 1 tablet by mouth every 12 (twelve) hours for 7 days. [facility] metroNIDAZO LE 250 mg tablet 2021-08 00:00: 00 06-20 05:59 :00 No [id number] 500mg Take 2 tablets by mouth every 12 (twelve) hours for 7 days. [facility] HYDROcodone -acetaminop hen 5-325 mg tablet 2021-08 00:00: 00 06-20 05:59 :00 No [id number] 1{tbl} Take 1 tablet by mouth every 6 (six) hours as needed for Pain (scale 7-10) for up to 7 days. Indication s: acute pain [facility] ciprofloxac in HCl 500 mg tablet 2021-08 00:00: 00 06-20 05:59 :00 No [id number] 500mg Take 1 tablet by mouth every 12 (twelve) hours for 7 days. [facility] metroNIDAZO LE 250 mg tablet 2021-08 00:00: 00 06-20 05:59 :00 No [id number] 500mg Take 2 tablets by mouth every 12 (twelve) hours for 7 days. [facility] proMETHazin e (PHENERGAN) 25 mg in NaCl 0.9% (NS) 50 mL IV piggyback 2021-08 21:26: 59 Yes 25mg 25 mg, IV Piggyback, Q4HPRN, Starting on Fri06/11/22 at 1526, Until Discontinu ed, Routine, Nausea and Vomiting (N/V), N/V unresponsi ve to Ondansetro n [facility] acetaminoph en (TYLENOL) tablet 650 mg 2021-08 15:55: 26 Yes 650mg 650 mg, Oral, Q6HPRN, Starting on Fri06/11/22 at 0955, Until Discontinu ed, Routine, Pain (scale 1-3) [facility] enoxaparin (LOVENOX) injection 40 mg 2021-08 15:00: 00 Yes 40mg 40 mg, Subcutaneo us, DAILY, First dose on Fri06/11/22 at 0900, Until Discontinu ed, Routine [facility] DULoxetine (CYMBALTA) capsule 60 mg 2021-08 15:00: 00 Yes 60mg 60 mg, Oral, DAILY, First dose on Fri06/11/22 at 0900, Until Discontinu ed, Routine [facility] lactobacill us acidophilus tablet 0.5 mg 2021-08 15:00: 00 Yes .5mg 0.5 mg, Oral, DAILY, First dose on Fri06/11/22 at 0900, Until Discontinu ed, Routine [facility] Sliding Scale Insulin - Lispro (HumaLOG) + Fsbg Testing 2021-08 14:00: 00 Yes Subcutaneo us, TID MEALS, First dose on Fri06/11/22 at 0800, Until Discontinu ed, Routine [facility] mor[facility]INE (4 mg/mL) injection 4 mg 2021-08 12:52: 08 Yes 4mg 4 mg, Slow IV Push, Q4HPRN, Starting on Fri06/11/22 at 0652, Until Discontinu ed, Routine, Pain (scale 7-10) [facility] cefTRIAXone (ROCEPHIN) 1,000 mg in NaCl 0.9% (NS) 50 mL MINI-BAG 2021-08 08:00: 00 06-12 18:21 :49 No 1000mg 1,000 mg, IV Piggyback, Q12H ABX, 14 doses, First dose (after last reorder) on Fri06/11/22 at 0200, Last dose on Fri06/17/22 at 1400, Administer over 30 Minutes, 50 mL
Reas on for Anti-Infec tive: Documented Infection< br>Documen billy Infection Site: Urine
D uration of Therapy: 7 days [facility] docusate (COLACE) capsule 100 mg 2021-08 06:15: 00 Yes 100mg 100 mg, Oral, BID, First dose on Fri06/11/22 at 0015, Until Discontinu ed, Routine [facility] gabapentin (NEURONTIN) capsule 200 mg 2021-08 06:15: 00 Yes 200mg 200 mg, Oral, BID, First dose on Fri06/11/22 at 0015, Until Discontinu ed, Routine [facility] cyclobenzap rine (FLEXERIL) tablet 10 mg 2021-08 06:15: 00 Yes 10mg 10 mg, Oral, BID, First dose on Fri06/11/22 at 0015, Until Discontinu ed, Routine [facility] ondansetron (ZOFRAN (PF)) injection 4 mg 2021-08 06:06: 47 Yes 4mg 4 mg, Slow IV Push, Q6HPRN, Starting on Fri06/11/22 at 0006, Until Discontinu ed, Routine, Nausea and Vomiting (N/V) [facility] traMADoL (ULTRAM) tablet 50 mg 2021-08 06:06: 37 06-13 06:05 :37 No 50mg 50 mg, Oral, Q8HPRN, Starting on Fri06/11/22 at 0006, Until Sneha 06/13/22 at 0005, Routine, Pain (scale 4-6) [facility] FENTanyl PF (SUBLIMAZE (PF)) injection 50 mcg 2021-08 05:58: 16 06-11 12:52 :20 No 50ug 50 mcg, Slow IV Push, Q4HPRN, Starting on Fri06/10/22 at 2358, Until Fri06/11/22 at 0652, Routine, Pain (scale 7-10) [facility] NaCl 0.9% (NS) IV infusion 1,000 mL 2021-08 04:30: 00 Yes 1000mL at 100 mL/hr, IV Infusion, CONTINUOUS , Starting on Fri06/10/22 at 2230, Until Discontinu ed, Routine [facility] NaCl 0.9% (NS) bolus infusion 1,500 mL 2021-08 03:45: 00 06-11 03:33 :01 No 1500mL at 999 mL/hr, 1,500 mL, IV Infusion, ONCE, 1 dose, On Fri06/10/22 at 2145, KUNAL [facility] ondansetron (ZOFRAN (PF)) injection 4 mg 2021-08 03:17: 24 06-11 06:07 :04 No 4mg 4 mg, Slow IV Push, Q6HPRN, Starting on Fri06/10/22 at 2117, Until Fri06/11/22 at 0007, KUNAL, Nausea and Vomiting (N/V) [facility] metoclopram raven HCl (REGLAN) injection 10 mg 2021-08 03:17: 15 06-11 21:27 :54 No 10mg 10 mg, Slow IV Push, TIDPRN, Starting on Fri06/10/22 at 2117, Until Fri06/11/22 at 1527, Routine, Nausea and Vomiting (N/V) [facility] morpHINE (4 mg/mL) injection 4 mg 2021-08 03:16: 49 06-11 05:58 :48 No 4mg 4 mg, Slow IV Push, Q4HPRN, Starting on Fri06/10/22 at 2116, Until Fri06/10/22 at 2358, Routine, Pain (scale 7-10) [facility] oxybutynin 10 mg 24 hr tablet 2021-08 00:05: 06-11 00:00 :00 No oxybutynin chloride ER 10 mg tablet,ext ended release 24 hr [facility] semaglutide (OZEMPIC) 0.25 mg or 0.5 mg(2 mg/1.5 mL) PnIj 2021-08 00:05: 06-11 00:00 :00 No .25mg 0.25 mg. [facility] semaglutide , weight loss, (WEGOVY) 0.25 mg/0.5 mL PnIj SC injection 2021-08 00:05: 07 06-11 00:00 :00 No Wegovy 0.25 mg/0.5 mL subcutaneo us pen injector 0.25 mg SC qwk x4wk, then 0.5 mg SC qwk x4wk, then 1 mg SC qwk x4wk, then 1.7 mg SC qwk x4wk, then 2.4 mg SC qwk [facility] clindamycin 300 mg capsule 2021-08 00:05: 06-11 00:00 :00 No clindamyci n HCl 300 mg capsule Take 1 capsule 3 times a day by oral route for 10 days. [facility] NaCl 0.9% (NS) bolus infusion 500 mL 2021-08 00:00: 00 06-11 00:17 :00 No 500mL at 999 mL/hr, 500 mL, IV Infusion, ONCE, 1 dose, On Fri06/10/22 at 1800, STAT [facility] proMETHazin e (PHENERGAN) 25 mg in NaCl 0.9% (NS) 50 mL IV piggyback 2021-08 00:00: 00 06-11 00:06 :00 No 25mg 25 mg, IV Piggyback, ONCE, 1 dose, [facility]10/22 at 1800[facility] 4 mg 2021-08 23:15: 00 06-10 22:25 :00 No 4mg 4 mg, Slow IV Push, ONCE, 1 dose, On Fri06/10/22 at 1715, [facility] morpHINE (4 mg/mL) injection 4 mg 2021-08 22:15: 00 06-10 21:21 :00 No 4mg 4 mg, Slow IV Push, ONCE, 1 dose, On Fri06/10/22 at 1615, STAT [facility] cefTRIAXone (ROCEPHIN) 1,000 mg in NaCl 0.9% (NS) 50 mL MINI-BAG 2021-08 20:15: 00 06-10 20:51 :00 No 1000mg 1,000 mg, IV Piggyback, ONCE, 1 dose, On Fri06/10/22 at 1415, Administer over 30 Minutes, 50 mL
Reas on for Anti-Infec tive: Documented Infection< br>Documen billy Infection Site: Urine
D uration of Therapy: 7 days [facility] ketorolac (TORADOL) injection 30 mg 2021-08 20:00: 00 06-10 19:01 :00 No 30mg 30 mg, Slow IV Push, ONCE, 1 dose, On Fri06/10/22 at 1400, Routine [facility] morpHINE (4 mg/mL) injection 4 mg 2021-08 19:30: 00 06-10 19:29 :00 No 4mg 4 mg, Slow IV Push, ONCE, 1 dose, On Fri06/10/22 at 1330, STAT [facility] ondansetron (ZOFRAN (PF)) injection 4 mg 2021-08 19:30: 00 06-10 19:29 :00 No 4mg 4 mg, Slow IV Push, ONCE, 1 dose, On Fri06/10/22 at 1330, KUNAL [facility] FENTanyl PF (SUBLIMAZE (PF)) injection 50 mcg 2021-08 18:01: 00 06-10 18:02 :00 No 50ug 50 mcg, Slow IV Push, ONCE, 1 dose, On Fri06/10/22 at 1215, Routine [facility] cefpodoxime 100 mg tablet 2021-08 00:00: 00 06-12 00:00 :00 No [id number] 100mg Take 1 tablet by mouth in the morning and 1 tablet in the evening. Do all this for 7 days. [facility] amitriptyli ne 150 mg tablet 01-14 09:33: 45 Yes amitriptyl ine 150 mg tablet Take 1 tablet every day by oral route for 30 days. [facility] Fesoterodin e (TOVIAZ) 4 mg tablet 01-14 09:33: 45 Yes Toviaz 4 mg tablet,ext ended release [facility] oxybutynin 10 mg 24 hr tablet 01-14 09:33: 45 Yes oxybutynin chloride ER 10 mg tablet,ext ended release 24 hr [facility] semaglutide (OZEMPIC) 0.25 mg or 0.5 mg(2 mg/1.5 mL) PnIj 01-14 09:33: 45 Yes .25mg 0.25 mg. [facility] semaglutide , weight loss, (WEGOVY) 0.25 mg/0.5 mL PnIj SC injection 01-14 09:33: 45 Yes Wegovy 0.25 mg/0.5 mL subcutaneo us pen injector 0.25 mg SC qwk x4wk, then 0.5 mg SC qwk x4wk, then 1 mg SC qwk x4wk, then 1.7 mg SC qwk x4wk, then 2.4 mg SC qwk [facility] dapaglifloz in-metformi n (XIGDUO XR) 10-500 mg TBph 01-14 09:33: 45 Yes Xigduo XR 10 mg-500 mg tablet,ext ended release Take 1 tablet every day by oral route for 30 days. [facility] clindamycin 300 mg capsule 01-14 09:33: 45 Yes clindamyci n HCl 300 mg capsule Take 1 capsule 3 times a day by oral route for 10 days. [facility] cyclobenzap rine 10 mg tablet 01-14 09:33: 45 Yes 10mg Take 10 mg by mouth 2 (two) times daily. [facility] DULoxetine 60 mg capsule 01-14 09:33: 45 Yes 60mg Take 60 mg by mouth daily. [facility] gabapentin 100 mg capsule 11-29 00:00: 00 Yes 100mg Take 100 mg by mouth 2 (two) times daily. [facility] gabapentin 100 mg capsule 11-29 00:00: 00 Yes 100mg Take 100 mg by mouth 2 (two) times daily. [facility] gabapentin 100 mg capsule 11-29 00:00: 00 Yes 100mg Take 100 mg by mouth 2 (two) times daily. [facility] gabapentin 100 mg capsule 11-29 00:00: 00 Yes 100mg Take 100 mg by mouth 2 (two) times daily. [facility] gabapentin 100 mg capsule 11-29 00:00: 00 Yes 100mg Take 100 mg by mouth 2 (two) times daily. [facility] gabapentin 100 mg capsule 11-29 00:00: 00 Yes 100mg Take 100 mg by mouth 2 (two) times daily. [facility] gabapentin 100 mg capsule 11-29 00:00: 00 Yes 100mg Take 100 mg by mouth 2 (two) times daily. [facility] 2-0 28 00:00: 00 Yes 100mg Take 100 mg by mouth 2 (two) times daily. [facility] gab[facility] mg capsule 2-0 28 00:00: 00 Yes 100mg Take 100 mg by mouth 2 (two) times daily. [facility] gab[facility] mg capsule 2-0 28 00:00: 00 Yes 100mg Take 100 mg by mouth 2 (two) times daily. [facility] gab[facility] mg capsule 2-0 28 00:00: 00 Yes 100mg Take 100 mg by mouth 2 (two) times daily. [facility] gabapentin 100 mg capsule 2-0 28 00:00: 00 Yes 100mg Take 100 mg by mouth 2 (two) times daily. [facility] gabapentin 100 mg capsule 2-0 28 00:00: 00 Yes 100mg Take 100 mg by mouth 2 (two) times daily. [facility] gabapentin 100 mg capsule 2-0 11-29 00:00: 00 Yes 100mg Take 100 mg by mouth 2 (two) times daily. [facility] gabapentin 100 mg capsule 2-0 28 00:00: 00 Yes 100mg Take 100 mg by mouth 2 (two) times daily. [facility] gabapentin 100 mg capsule 2-0 28 00:00: 00 Yes 100mg Take 1 capsule by mouth in the morning and 1 capsule in the evening. [facility] gabapentin 100 mg capsule 2-0 28 00:00: 00 Yes 100mg Take 1 capsule by mouth in the morning and 1 capsule in the evening. [facility] gabapentin 100 mg capsule 2-0 28 00:00: 00 Yes 100mg Take 1 capsule by mouth in the morning and 1 capsule in the evening. [facility] gabapentin 100 mg capsule 2022-0 28 00:00: 00 Yes 100mg Take 1 capsule by mouth in the morning and 1 capsule in the evening. [facility] gabapentin 100 mg capsule 2022-0 4-28 00:00: 00 Yes 100mg Take 1 capsule by mouth in the morning and 1 capsule in the evening. [facility] gabapentin 100 mg capsule 2021-0 11-29 00:00: 00 Yes 100mg Take 1 capsule by mouth in the morning and 1 capsule in the evening. [facility] gabapentin 100 mg capsule 2021-0 11-29 00:00: 00 Yes 800mg Take 8 capsules by mouth in the morning and 8 capsules at noon and 8 capsules in the evening. [facility] gabapentin 100 mg capsule 2021-0 11-29 00:00: 00 Yes 800mg Take 8 capsules by mouth in the morning and 8 capsules at noon and 8 capsules in the evening. [facility] gabapentin 100 mg capsule 2021-0 11-29 00:00: 00 Yes 800mg Take 8 capsules by mouth in the morning and 8 capsules at noon and 8 capsules in the evening. [facility] gabapentin 100 mg capsule 2021-0 11-29 00:00: 00 Yes 800mg Take 8 capsules by mouth in the morning and 8 capsules at noon and 8 capsules in the evening. [facility] gabapentin 100 mg capsule 2021-0 11-29 00:00: 00 Yes 100mg Take 100 mg by mouth 2 (two) times daily. [facility] gabapentin 100 mg capsule 2021-0 11-29 00:00: 00 Yes 100mg Take 100 mg by mouth 2 (two) times daily. [facility] gabapentin 100 mg capsule 2021-0 11-29 00:00: 00 Yes 100mg Take 100 mg by mouth 2 (two) times daily. [facility] lidocaine-p rilocaine 2.5-2.5 % cream 0 10-01 00:00: 00 Yes APPLY TO AFFECTED AREA EVERY DAY NEEDED [facility] eszopiclone 1 mg tablet 10-01 00:00: 00 Yes 1mg Take 1 mg by mouth daily. [facility] lidocaine-p rilocaine 2.5-2.5 % cream 2021-0 10-01 00:00: 00 Yes APPLY TO AFFECTED AREA EVERY DAY NEEDED [facility] eszopiclone 1 mg tablet 10-01 00:00: 00 Yes 1mg Take 1 mg by mouth daily. [facility] lidocaine-p rilocaine 2.5-2.5 % cream 0 10-01 00:00: 00 Yes APPLY TO AFFECTED AREA EVERY DAY NEEDED [facility] eszopiclone 1 mg tablet 0 10-01 00:00: 00 Yes 1mg Take 1 mg by mouth daily. [facility] lidocaine-p rilocaine 2.5-2.5 % cream 0 10-01 00:00: 00 Yes APPLY TO AFFECTED AREA EVERY DAY NEEDED [facility] eszopiclone 1 mg tablet 0 10-01 00:00: 00 Yes 1mg Take 1 mg by mouth daily. [facility] lidocaine-p rilocaine 2.5-2.5 % cream 0 10-01 00:00: 00 Yes APPLY TO AFFECTED AREA EVERY DAY NEEDED [facility] eszopiclone 1 mg tablet 0 10-01 00:00: 00 Yes 1mg Take 1 mg by mouth daily. [facility] lidocaine-p rilocaine 2.5-2.5 % cream 0 10-01 00:00: 00 Yes APPLY TO AFFECTED AREA EVERY DAY NEEDED [facility] eszopiclone 1 mg tablet 0 10-01 00:00: 00 Yes 1mg Take 1 mg by mouth daily. [facility] lidocaine-p rilocaine 2.5-2.5 % cream 0 10-01 00:00: 00 Yes APPLY TO AFFECTED AREA EVERY DAY NEEDED [facility] eszopiclone 1 mg tablet 0 10-01 00:00: 00 Yes 1mg Take 1 mg by mouth daily. [facility] lidocaine-p rilocaine 2.5-2.5 % cream 0 10-01 00:00: 00 Yes APPLY TO AFFECTED AREA EVERY DAY NEEDED [facility] eszopiclone 1 mg tablet 2021-0 10-01 00:00: 00 Yes 1mg Take 1 mg by mouth daily. [facility] lidocaine-p rilocaine 2.5-2.5 % cream 10-01 00:00: 00 Yes APPLY TO AFFECTED AREA EVERY DAY NEEDED [facility] eszopiclone 1 mg tablet 10-01 00:00: 00 Yes 1mg Take 1 mg by mouth daily. [facility] lidocaine-p rilocaine 2.5-2.5 % cream 10-01 00:00: 00 Yes APPLY TO AFFECTED AREA EVERY DAY NEEDED [facility] eszopiclone 1 mg tablet 10-01 00:00: 00 Yes 1mg Take 1 mg by mouth daily. [facility] lidocaine-p rilocaine 2.5-2.5 % cream 10-01 00:00: 00 Yes APPLY TO AFFECTED AREA EVERY DAY NEEDED [facility] lidocaine-p rilocaine 2.5-2.5 % cream 10-01 00:00: 00 Yes APPLY TO AFFECTED AREA EVERY DAY NEEDED [facility] lidocaine-p rilocaine 2.5-2.5 % cream 10-01 00:00: 00 Yes APPLY TO AFFECTED AREA EVERY DAY NEEDED [facility] lidocaine-p rilocaine 2.5-2.5 % cream 10-01 00:00: 00 Yes APPLY TO AFFECTED AREA EVERY DAY NEEDED [facility] lidocaine-p rilocaine 2.5-2.5 % cream 10-01 00:00: 00 Yes APPLY TO AFFECTED AREA EVERY DAY NEEDED [facility] lidocaine-p rilocaine 2.5-2.5 % cream 0 10-01 00:00: 00 Yes APPLY TO AFFECTED AREA EVERY DAY NEEDED [facility] lidocaine-p rilocaine 2.5-2.5 % cream 10-01 00:00: 00 Yes APPLY TO AFFECTED AREA EVERY DAY NEEDED [facility] lidocaine-p rilocaine 2.5-2.5 % cream 10-01 00:00: 00 Yes APPLY TO AFFECTED AREA EVERY DAY NEEDED [facility] lidocaine-p rilocaine 2.5-2.5 % cream 10-01 00:00: 00 Yes APPLY TO AFFECTED AREA EVERY DAY NEEDED [facility] lidocaine-p rilocaine 2.5-2.5 % cream 10-01 00:00: 00 Yes APPLY TO AFFECTED AREA EVERY DAY NEEDED [facility] lidocaine-p rilocaine 2.5-2.5 % cream 10-01 00:00: 00 Yes APPLY TO AFFECTED AREA EVERY DAY NEEDED [facility] lidocaine-p rilocaine 2.5-2.5 % cream 10-01 00:00: 00 Yes APPLY TO AFFECTED AREA EVERY DAY NEEDED [facility] lidocaine-p rilocaine 2.5-2.5 % cream 10-01 00:00: 00 Yes APPLY TO AFFECTED AREA EVERY DAY NEEDED [facility] lidocaine-p rilocaine 2.5-2.5 % cream 10-01 00:00: 00 Yes APPLY TO AFFECTED AREA EVERY DAY NEEDED [facility] lidocaine-p rilocaine 2.5-2.5 % cream 10-01 00:00: 00 Yes APPLY TO AFFECTED AREA EVERY DAY NEEDED [facility] lidocaine-p rilocaine 2.5-2.5 % cream 10-01 00:00: 00 Yes APPLY TO AFFECTED AREA EVERY DAY NEEDED [facility] lidocaine-p rilocaine 2.5-2.5 % cream 10-01 00:00: 00 Yes APPLY TO AFFECTED AREA EVERY DAY NEEDED [facility] lidocaine-p rilocaine 2.5-2.5 % cream 10-01 00:00: 00 Yes APPLY TO AFFECTED AREA EVERY DAY NEEDED [facility] eszopiclone 1 mg tablet 10-01 00:00: 00 09-17 00:00 :00 No 1mg Take 1 mg by mouth daily. [facility] eszopiclone 1 mg tablet 10-01 00:00: 00 09-17 00:00 :00 No 1mg Take 1 mg by mouth daily. [facility] methylPREDN ISolone (MEDROL, LUNA,) 4 mg tablets 09-24 00:00: 00 Yes [id number] 84mg Take 21 tablets by mouth SEE-INSTRU CTIONS. follow package directions [facility] methylPREDN ISolone (MEDROL, LUNA,) 4 mg tablets 2 00:00: 00 06-11 00:00 :00 No [id number] 84mg Take 21 tablets by mouth SEE-INSTRU CTIONS. follow package directions [facility] methylPREDN ISolone (MEDROL, LUNA,) 4 mg tablets 2020-08 0 00:00: 00 Yes [id number] 84mg Take 21 tablets by mouth SEE-INSTRU CTIONS. follow package directions [facility] methylPREDN ISolone (MEDROL, LUNA,) 4 mg tablets 2020-08 00:00: 00 06-11 00:00 :00 No [id number] 84mg Take 21 tablets by mouth SEE-INSTRU CTIONS. follow package directions [facility] methocarbam ol (Robaxin) 750 MG tablet 12-18 00:00: 00 Yes [id number] 750mg [id number] 3D Take 1 tablet (750 mg total) by mouth 3 (three) times a day if needed for muscle spasms for up to 10 days. [facility] methocarbam ol (Robaxin) 750 MG tablet 12-18 00:00: 00 12-29 04:59 :00 No [id number] 750mg [id number] 3D Take 1 tablet (750 mg total) by mouth 3 (three) times a day if needed for muscle spasms for up to 10 days. [facility] metFORMIN (Glucophage ) 1000 MG tablet 12-14 00:00: 00 Yes [facility] metFORMIN (Glucophage ) 1000 MG tablet 12-14 00:00: 00 Yes [facility] benzonatate 100 mg capsule 624 00:00: 00 Yes [id number] 100mg Take 1 capsule by mouth 3 (three) times daily as needed for Cough. [facility] chlorphenir amine 4 mg tablet 01-25 00:00: 00 Yes [id number] 4mg Take 1 tablet by mouth every 6 (six) hours as needed for Allergies or Runny nose. [facility] benzonatate 100 mg capsule 01-25 00:00: 06-11 00:00 :00 No [id number] 100mg Take 1 capsule by mouth 3 (three) times daily as needed for Cough. [facility] chlorphenir amine 4 mg tablet 01-25 00:00: 06-11 00:00 :00 No [id number] 4mg Take 1 tablet by mouth every 6 (six) hours as needed for Allergies or Runny nose. [facility] LIDOCAINE HCL 10MG/ML LIDOCAINE HCL 10MG/ML 0 18 00:00: 00 No .5mL [facility] Depo-Medrol (Methylpred nisolone) 40mg Depo-Medrol (Methylpred nisolone) 40mg 2019-0 18 00:00: 00 No .5mL [facility] Depo-Medrol (Methylpred nisolone) 40mg Depo-Medrol (Methylpred nisolone) 40mg 2019-0 18 00:00: 00 No .5mL [facility] LIDOCAINE HCL 10MG/ML LIDOCAINE HCL 10MG/ML 0 18 00:00: 00 No .5mL [facility] LIDOCAINE HCL 10MG/ML LIDOCAINE HCL 10MG/ML 0 18 00:00: 00 No .5mL [facility] Depo-Medrol (Methylpred nisolone) 40mg Depo-Medrol (Methylpred nisolone) 40mg 2019-0 6-18 00:00: 00 No .5mL [facility] Depo-Medrol (Methylpred nisolone) 40mg Depo-Medrol (Methylpred nisolone) 40mg 2019-0 618 00:00: 00 No .5mL [facility] LIDOCAINE HCL 10MG/ML LIDOCAINE HCL 10MG/ML 2020-0 6-18 00:00: 00 No .5mL [facility] LIDOCAINE HCL 10MG/ML LIDOCAINE HCL 10MG/ML 2020-0 6-18 00:00: 00 No .5mL [facility] Depo-Medrol (Methylpred nisolone) 40mg Depo-Medrol (Methylpred nisolone) 40mg 2020-0 6-18 00:00: 00 No .5mL [facility] Depo-Medrol (Methylpred nisolone) 40mg Depo-Medrol (Methylpred nisolone) 40mg 2020-0 6-18 00:00: 00 No .5mL [facility] LIDOCAINE HCL 10MG/ML LIDOCAINE HCL 10MG/ML 2019-0 6-18 00:00: 00 No .5mL [facility] LIDOCAINE HCL 10MG/ML LIDOCAINE HCL 10MG/ML 2019-0 618 00:00: 00 No .5mL [facility] Depo-Medrol (Methylpred nisolone) 40mg Depo-Medrol (Methylpred nisolone) 40mg 2019-0 6-18 00:00: 00 No .5mL [facility] Depo-Medrol (Methylpred nisolone) 40mg Depo-Medrol (Methylpred nisolone) 40mg 2019-0 618 00:00: 00 No .5mL [facility] LIDOCAINE HCL 10MG/ML LIDOCAINE HCL 10MG/ML 2019-0 6-18 00:00: 00 No .5mL [facility] LIDOCAINE HCL 10MG/ML LIDOCAINE HCL 10MG/ML 2020-0 6-18 00:00: 00 No .5mL [facility] Depo-Medrol (Methylpred nisolone) 40mg Depo-Medrol (Methylpred nisolone) 40mg 2020-0 6-18 00:00: 00 No .5mL [facility] Depo-Medrol (Methylpred nisolone) 40mg Depo-Medrol (Methylpred nisolone) 40mg 2020-0 6-18 00:00: 00 No .5mL [facility] LIDOCAINE HCL 10MG/ML LIDOCAINE HCL 10MG/ML 2020-0 6-18 00:00: 00 No .5mL [facility] LIDOCAINE HCL 10MG/ML LIDOCAINE HCL 10MG/ML 2019-0 6-18 00:00: 00 No .5mL [facility] Depo-Medrol (Methylpred nisolone) 40mg Depo-Medrol (Methylpred nisolone) 40mg 2019-0 6-18 00:00: 00 No .5mL [facility] Depo-Medrol (Methylpred nisolone) 40mg Depo-Medrol (Methylpred nisolone) 40mg 2019-0 618 00:00: 00 No .5mL [facility] LIDOCAINE HCL 10MG/ML LIDOCAINE HCL 10MG/ML 2019-0 618 00:00: 00 No .5mL [facility] LIDOCAINE HCL 10MG/ML LIDOCAINE HCL 10MG/ML 0 18 00:00: 00 No .5mL [facility] Depo-Medrol (Methylpred nisolone) 40mg Depo-Medrol (Methylpred nisolone) 40mg 2019-0 618 00:00: 00 No .5mL [facility] Depo-Medrol (Methylpred nisolone) 40mg Depo-Medrol (Methylpred nisolone) 40mg 2019-0 6-18 00:00: 00 No .5mL [facility] LIDOCAINE HCL 10MG/ML LIDOCAINE HCL 10MG/ML 2019-0 6-18 00:00: 00 No .5mL [facility] LIDOCAINE HCL 10MG/ML LIDOCAINE HCL 10MG/ML 2020-0 6-18 00:00: 00 No .5mL [facility] Depo-Medrol (Methylpred nisolone) 40mg Depo-Medrol (Methylpred nisolone) 40mg 2020-0 6-18 00:00: 00 No .5mL [facility] Depo-Medrol (Methylpred nisolone) 40mg Depo-Medrol (Methylpred nisolone) 40mg 2019-0 18 00:00: 00 No .5mL [facility] LIDOCAINE HCL 10MG/ML LIDOCAINE HCL 10MG/ML 2019-0 18 00:00: 00 No .5mL [facility] LIDOCAINE HCL 10MG/ML LIDOCAINE HCL 10MG/ML 2019-0 18 00:00: 00 No .5mL [facility] Depo-Medrol (Methylpred nisolone) 40mg Depo-Medrol (Methylpred nisolone) 40mg 2019-0 18 00:00: 00 No .5mL [facility] Depo-Medrol (Methylpred nisolone) 40mg Depo-Medrol (Methylpred nisolone) 40mg 2019-0 18 00:00: 00 No .5mL [facility] LIDOCAINE HCL 10MG/ML LIDOCAINE HCL 10MG/ML 0 01-19 00:00: 00 No .5mL [facility] LIDOCAINE HCL 10MG/ML LIDOCAINE HCL 10MG/ML 0 18 00:00: 00 No .5mL [facility] Depo-Medrol (Methylpred nisolone) 40mg Depo-Medrol (Methylpred nisolone) 40mg 2019-0 18 00:00: 00 No .5mL [facility] Depo-Medrol (Methylpred nisolone) 40mg Depo-Medrol (Methylpred nisolone) 40mg 0 01-19 00:00: 00 No .5mL [facility] LIDOCAINE HCL 10MG/ML LIDOCAINE HCL 10MG/ML 0 18 00:00: 00 No .5mL [facility] loratadine 10 mg tablet 03-03 00:00: 00 Yes 10mg Take 10 mg by mouth daily. [facility] loratadine 10 mg tablet 03-03 00:00: 00 Yes 10mg Take 10 mg by mouth daily. [facility] loratadine 10 mg tablet 03-03 00:00: 00 Yes 10mg Take 10 mg by mouth daily. [facility] loratadine 10 mg tablet 03-03 00:00: 00 Yes 10mg Take 10 mg by mouth daily. [facility] loratadine 10 mg tablet 03-03 00:00: 00 Yes 10mg Take 10 mg by mouth daily. [facility] loratadine 10 mg tablet 03-03 00:00: 00 Yes 10mg Take 10 mg by mouth daily. [facility] loratadine 10 mg tablet 03-03 00:00: 00 Yes 10mg Take 10 mg by mouth daily. [facility] loratadine 10 mg tablet 03-03 00:00: 00 Yes 10mg Take 10 mg by mouth daily. [facility] loratadine 10 mg tablet 03-03 00:00: 00 Yes 10mg Take 10 mg by mouth daily. [facility] loratadine 10 mg tablet 03-03 00:00: 00 Yes 10mg Take 10 mg by mouth daily. [facility] loratadine 10 mg tablet 03-03 00:00: 00 Yes 10mg Take 10 mg by mouth daily. [facility] loratadine 10 mg tablet 03-03 00:00: 00 Yes 10mg Take 10 mg by mouth daily. [facility] loratadine 10 mg tablet 03-03 00:00: 00 Yes 10mg Take 10 mg by mouth daily. [facility] loratadine 10 mg tablet 03-03 00:00: 00 Yes 10mg Take 10 mg by mouth daily. [facility] loratadine 10 mg tablet 03-03 00:00: 00 Yes 10mg Take 10 mg by mouth daily. [facility] loratadine 10 mg tablet 03-03 00:00: 00 Yes 10mg Take 10 mg by mouth daily. [facility] loratadine 10 mg tablet 03-03 00:00: 00 Yes 10mg Take 10 mg by mouth daily. [facility] loratadine 10 mg tablet 03-03 00:00: 00 Yes 10mg Take 10 mg by mouth daily. [facility] loratadine 10 mg tablet 03-03 00:00: 00 Yes 10mg Take 1 tablet by mouth in the morning. [facility] loratadine 10 mg tablet 03-03 00:00: 00 Yes 10mg Take 1 tablet by mouth in the morning. [facility] loratadine 10 mg tablet 03-03 00:00: 00 Yes 10mg Take 1 tablet by mouth in the morning. [facility] loratadine 10 mg tablet 03-03 00:00: 00 Yes 10mg Take 1 tablet by mouth in the morning. [facility] loratadine 10 mg tablet 03-03 00:00: 00 Yes 10mg Take 1 tablet by mouth in the morning. [facility] loratadine 10 mg tablet 03-03 00:00: 00 Yes 10mg Take 1 tablet by mouth in the morning. [facility] loratadine 10 mg tablet 03-03 00:00: 00 Yes 10mg Take 1 tablet by mouth in the morning. [facility] loratadine 10 mg tablet 03-03 00:00: 00 Yes 10mg Take 1 tablet by mouth in the morning. [facility] loratadine 10 mg tablet 03-03 00:00: 00 Yes 10mg Take 1 tablet by mouth in the morning. [facility] loratadine 10 mg tablet 03-03 00:00: 00 Yes 10mg Take 1 tablet by mouth in the morning. [facility] metFORMIN 1,000 mg tablet 02-07 00:00: 00 Yes TAKE 1 TABLET BY MOUTH TWICE A DAY NEEDED WITH MORNING AND EVENING MEAL [facility] metFORMIN 1,000 mg tablet 02-07 00:00: 00 Yes TAKE 1 TABLET BY MOUTH TWICE A DAY NEEDED WITH MORNING AND EVENING MEAL [facility] metFORMIN 1,000 mg tablet 02-07 00:00: 00 Yes TAKE 1 TABLET BY MOUTH TWICE A DAY NEEDED WITH MORNING AND EVENING MEAL [facility] metFORMIN 1,000 mg tablet 02-07 00:00: 00 Yes TAKE 1 TABLET BY MOUTH TWICE A DAY NEEDED WITH MORNING AND EVENING MEAL [facility] metFORMIN 1,000 mg tablet 02-07 00:00: 00 Yes TAKE 1 TABLET BY MOUTH TWICE A DAY NEEDED WITH MORNING AND EVENING MEAL [facility] metFORMIN 1,000 mg tablet 02-07 00:00: 00 Yes TAKE 1 TABLET BY MOUTH TWICE A DAY NEEDED WITH MORNING AND EVENING MEAL [facility] metFORMIN 1,000 mg tablet 02-07 00:00: 00 Yes TAKE 1 TABLET BY MOUTH TWICE A DAY NEEDED WITH MORNING AND EVENING MEAL [facility] metFORMIN 1,000 mg tablet 02-07 00:00: 00 Yes TAKE 1 TABLET BY MOUTH TWICE A DAY NEEDED WITH MORNING AND EVENING MEAL [facility] metFORMIN 1,000 mg tablet 02-07 00:00: 00 Yes TAKE 1 TABLET BY MOUTH TWICE A DAY NEEDED WITH MORNING AND EVENING MEAL [facility] metFORMIN 1,000 mg tablet 02-07 00:00: 00 Yes TAKE 1 TABLET BY MOUTH TWICE A DAY NEEDED WITH MORNING AND EVENING MEAL [facility] metFORMIN 1,000 mg tablet 02-07 00:00: 00 09-17 00:00 :00 No TAKE 1 TABLET BY MOUTH TWICE A DAY NEEDED WITH MORNING AND EVENING MEAL [facility] metFORMIN 1,000 mg tablet 02-07 00:00: 00 09-17 00:00 :00 No TAKE 1 TABLET BY MOUTH TWICE A DAY NEEDED WITH MORNING AND EVENING MEAL [facility] famotidine 40 mg tablet 09-23 00:00: 00 Yes 40mg Take 1 tablet by mouth daily. [facility] famotidine 40 mg tablet 09-23 00:00: 00 Yes 40mg Take 1 tablet by mouth daily. [facility] famotidine 40 mg tablet 09-23 00:00: 00 Yes 40mg Take 1 tablet by mouth daily. [facility] famotidine 40 mg tablet 09-23 00:00: 00 Yes 40mg Take 1 tablet by mouth daily. [facility] famotidine 40 mg tablet 09-23 00:00: 00 Yes 40mg Take 1 tablet by mouth daily. [facility] famotidine 40 mg tablet 09-23 00:00: 00 Yes 40mg Take 1 tablet by mouth daily. [facility] famotidine 40 mg tablet 09-23 00:00: 00 Yes 40mg Take 1 tablet by mouth daily. [facility] famotidine 40 mg tablet 09-23 00:00: 00 Yes 40mg Take 1 tablet by mouth daily. [facility] famotidine 40 mg tablet 09-23 00:00: 00 Yes 40mg Take 1 tablet by mouth daily. [facility] famotidine 40 mg tablet 09-23 00:00: 00 Yes 40mg Take 1 tablet by mouth daily. [facility] famotidine 40 mg tablet 09-23 00:00: 00 09-17 00:00 :00 No 40mg Take 1 tablet by mouth daily. [facility] famotidine 40 mg tablet 09-23 00:00: 00 09-17 00:00 :00 No 40mg Take 1 tablet by mouth daily. [facility] Meloxicam Meloxicam Yes Ronen Puga not defined [facility] Metformin HCl Metformin HCl Yes Ronen Puga not defined [facility] Naproxen Naproxen Yes Ronen Puga not defined [facility] Amoxicillin -Pot Clavulanate Amoxicillin -Pot Clavulanate Yes Ronen Puga not defined [facility] Hydrochloro thiazide Hydrochloro thiazide Yes Ronen Puga not defined [facility] Cyclobenzap rine HCl Cyclobenzap rine HCl Yes Ronen Puga not defined [facility] Vitamin D (Ergocalcif satya) Vitamin D (Ergocalcif satya) Yes Ronen Puga not defined [facility] Ferrous Sulfate Ferrous Sulfate Yes Ronen Puga not defined [facility] Amitriptyli ne HCl Amitriptyli ne HCl Yes Ronen Puga not defined [facility] Methocarbam ol Methocarbam ol Yes Ronen Puga not defined [facility] Ondansetron HCl Ondansetron HCl Yes Ronen Puga not defined [facility] BusPIRone HCl BusPIRone HCl Yes Ronen Puga not defined [facility] Diclofenac Sodium Diclofenac Sodium Yes Ronen Puga not defined [facility] Benzonatate Benzonatate Yes Faraz s Puga not defined [facility] Gabapentin Gabapentin Yes Ronen Puga not defined [facility] Gabapentin Gabapentin No Gabapentin Codeine Sulfate Codeine Sulfate No Codeine Sulfate Diclofenac Sodium Diclofenac Sodium No Diclofenac Sodium Voltaren Voltaren No Voltaren metFORMIN HCl metFORMIN HCl No metFORMIN HCl Ozempic Ozempic No Ozempic DULoxetine HCl DULoxetine HCl No DULoxetine HCl clonazePAM clonazePAM No clonazePAM Xigduo XR Xigduo XR No Xigduo XR Ketorolac Tromethamin e Ketorolac Tromethamin e No Ketorolac Tromethami ne Gabapentin Gabapentin No Gabapentin Codeine Sulfate Codeine Sulfate No Codeine Sulfate Diclofenac Sodium Diclofenac Sodium No Diclofenac Sodium Voltaren Voltaren No Voltaren metFORMIN HCl metFORMIN HCl No metFORMIN HCl Ozempic Ozempic No Ozempic DULoxetine HCl DULoxetine HCl No DULoxetine HCl clonazePAM clonazePAM No clonazePAM Ketorolac Tromethamin e Ketorolac Tromethamin e No Ketorolac Tromethami ne Xigduo XR Xigduo XR No Xigduo XR Ketorolac Tromethamin e Ketorolac Tromethamin e No Ketorolac Tromethami ne Diclofenac Sodium Diclofenac Sodium No Diclofenac Sodium Gabapentin Gabapentin No Gabapentin Codeine Sulfate Codeine Sulfate No Codeine Sulfate Diclofenac Sodium Diclofenac Sodium No Diclofenac Sodium Voltaren Voltaren No Voltaren metFORMIN HCl metFORMIN HCl No metFORMIN HCl Ozempic Ozempic No Ozempic DULoxetine HCl DULoxetine HCl No DULoxetine HCl clonazePAM clonazePAM No clonazePAM Metformin HCl Metformin HCl No Metformin HCl Xigduo XR Xigduo XR No Xigduo XR Ketorolac Tromethamin e Ketorolac Tromethamin e No Ketorolac Tromethami ne Gabapentin Gabapentin No Gabapentin Codeine Sulfate Codeine Sulfate No Codeine Sulfate Diclofenac Sodium Diclofenac Sodium No Diclofenac Sodium Voltaren Voltaren No Voltaren metFORMIN HCl metFORMIN HCl No metFORMIN HCl Ozempic Ozempic No Ozempic DULoxetine HCl DULoxetine HCl No DULoxetine HCl clonazePAM clonazePAM No clonazePAM Xigduo XR Xigduo XR No Xigduo XR Ketorolac Tromethamin e Ketorolac Tromethamin e No Ketorolac Tromethami ne Gabapentin Gabapentin No Gabapentin Codeine Sulfate Codeine Sulfate No Codeine Sulfate Diclofenac Sodium Diclofenac Sodium No Diclofenac Sodium Voltaren Voltaren No Voltaren metFORMIN HCl metFORMIN HCl No metFORMIN HCl Ozempic Ozempic No Ozempic DULoxetine HCl DULoxetine HCl No DULoxetine HCl clonazePAM clonazePAM No clonazePAM Xigduo XR Xigduo XR No Xigduo XR Ketorolac Tromethamin e Ketorolac Tromethamin e No Ketorolac Tromethami ne Ketorolac Tromethamin e Ketorolac Tromethamin e No Ketorolac Tromethami ne Gabapentin Gabapentin No Gabapentin Codeine Sulfate Codeine Sulfate No Codeine Sulfate Diclofenac Sodium Diclofenac Sodium No Diclofenac Sodium Voltaren Voltaren No Voltaren metFORMIN HCl metFORMIN HCl No metFORMIN HCl Ozempic Ozempic No Ozempic DULoxetine HCl DULoxetine HCl No DULoxetine HCl Diclofenac Sodium Diclofenac Sodium No Diclofenac Sodium clonazePAM clonazePAM No clonazePAM Xigduo XR Xigduo XR No Xigduo XR Ketorolac Tromethamin e Ketorolac Tromethamin e No Ketorolac Tromethami ne Metformin HCl Metformin HCl No Metformin HCl Gabapentin Gabapentin No Gabapentin Codeine Sulfate Codeine Sulfate No Codeine Sulfate Diclofenac Sodium Diclofenac Sodium No Diclofenac Sodium Voltaren Voltaren No Voltaren metFORMIN HCl metFORMIN HCl No metFORMIN HCl Ozempic Ozempic No Ozempic DULoxetine HCl DULoxetine HCl No DULoxetine HCl clonazePAM clonazePAM No clonazePAM Xigduo XR Xigduo XR No Xigduo XR Ketorolac Tromethamin e Ketorolac Tromethamin e No Ketorolac Tromethami ne metFORMIN HCl metFORMIN HCl No metFORMIN HCl Xigduo XR Xigduo XR No Xigduo XR Gabapentin Gabapentin No Gabapentin clonazePAM clonazePAM No clonazePAM Ozempic Ozempic No Ozempic Diclofenac Sodium Diclofenac Sodium No Diclofenac Sodium Voltaren Voltaren No Voltaren DULoxetine HCl DULoxetine HCl No DULoxetine HCl Ketorolac Tromethamin e Ketorolac Tromethamin e No Ketorolac Tromethami ne Codeine Sulfate Codeine Sulfate No Codeine Sulfate Ketorolac Tromethamin e Ketorolac Tromethamin e No Ketorolac Tromethami ne Diclofenac Sodium Diclofenac Sodium No Diclofenac Sodium Metformin HCl Metformin HCl No Metformin HCl Ketorolac Tromethamin e Ketorolac Tromethamin e No Ketorolac Tromethami ne Diclofenac Sodium Diclofenac Sodium No Diclofenac Sodium metFORMIN HCl metFORMIN HCl No metFORMIN HCl Gabapentin Gabapentin No Gabapentin Codeine Sulfate Codeine Sulfate No Codeine Sulfate Diclofenac Sodium Diclofenac Sodium No Diclofenac Sodium Voltaren Voltaren No Voltaren metFORMIN HCl metFORMIN HCl No metFORMIN HCl Ozempic Ozempic No Ozempic DULoxetine HCl DULoxetine HCl No DULoxetine HCl clonazePAM clonazePAM No clonazePAM Xigduo XR Xigduo XR No Xigduo XR Ketorolac Tromethamin e Ketorolac Tromethamin e No Ketorolac Tromethami ne Gabapentin Gabapentin No Gabapentin Codeine Sulfate Codeine Sulfate No Codeine Sulfate Diclofenac Sodium Diclofenac Sodium No Diclofenac Sodium Voltaren Voltaren No Voltaren metFORMIN HCl metFORMIN HCl No metFORMIN HCl Ozempic Ozempic No Ozempic DULoxetine HCl DULoxetine HCl No DULoxetine HCl clonazePAM clonazePAM No clonazePAM Xigduo XR Xigduo XR No Xigduo XR Ketorolac Tromethamin e Ketorolac Tromethamin e No Ketorolac Tromethami ne Immunizations Ordered Immunization Name Filled Immunization Name Date Status Comments Source Influenza Virus Vaccine Quad IM 3+ YRS 2021-06-24 00:00:00 Completed [facility] Influenza Virus Vaccine Quad IM 3+ YRS 2021-06-24 00:00:00 Completed [facility] Influenza Virus Vaccine Quad IM 3+ YRS 2021-06-24 00:00:00 Completed [facility] Influenza Virus Vaccine Quad IM 3+ YRS 2021-06-24 00:00:00 Completed [facility] Influenza Virus Vaccine Quad IM 3+ YRS 2021-06-24 00:00:00 Completed [facility] Influenza Virus Vaccine Quad IM 3+ YRS 2021-06-24 00:00:00 Completed [facility] Influenza Virus Vaccine Quad IM 3+ YRS 2021-06-24 00:00:00 Completed [facility] Influenza Virus Vaccine Quad IM 3+ YRS 2021-06-24 00:00:00 Completed [facility] Influenza Virus Vaccine Quad IM 3+ YRS 2021-06-24 00:00:00 Completed [facility] Influenza Virus Vaccine Quad IM 3+ YRS 2021-06-24 00:00:00 Completed [facility] Influenza Virus Vaccine Quad IM 3+ YRS 2021-06-24 00:00:00 Completed [facility] Influenza Virus Vaccine Quad IM 3+ YRS 2021-06-24 00:00:00 Completed [facility] Influenza Virus Vaccine Quad IM 3+ YRS 2021-06-24 00:00:00 Completed [facility] Influenza Virus Vaccine Quad IM 3+ YRS 2021-06-24 00:00:00 Completed [facility] Influenza Virus Vaccine Quad IM 3+ YRS 2021-06-24 00:00:00 Completed [facility] Influenza Virus Vaccine Quad IM 3+ YRS 2021-06-24 00:00:00 Completed [facility] Influenza Virus Vaccine Quad IM 3+ YRS 2021-06-24 00:00:00 Completed [facility] Influenza Virus Vaccine Quad IM 3+ YRS 2021-06-24 00:00:00 Completed [facility] Influenza Virus Vaccine Quad IM 3+ YRS 2021-06-24 00:00:00 Completed [facility] Influenza Virus Vaccine Quad IM 3+ YRS 2021-06-24 00:00:00 Completed [facility] Influenza Virus Vaccine Quad IM 3+ YRS 2021-06-24 00:00:00 Completed [facility] Influenza Virus Vaccine Quad IM 3+ YRS 2021-06-24 00:00:00 Completed [facility] Influenza Virus Vaccine Quad IM 3+ YRS 2021-06-24 00:00:00 Completed [facility] SARS-COV-2 COVID-19 PFIZER VACCINE 2021-04-23 00:00:00 Completed [facility] SARS-COV-2 COVID-19 ALY/J&J VACCINE 2021-04-23 00:00:00 Completed [facility] SARS-COV-2 COVID-19 PFIZER VACCINE 2021-04-23 00:00:00 Completed [facility] SARS-COV-2 COVID-19 ALY/J&J VACCINE 2021-04-23 00:00:00 Completed [facility] SARS-COV-2 COVID-19 PFIZER VACCINE 2021-04-23 00:00:00 Completed [facility] SARS-COV-2 COVID-19 ALY/J&J VACCINE 2021-04-23 00:00:00 Completed [facility] SARS-COV-2 COVID-19 PFIZER VACCINE 2021-04-23 00:00:00 Completed [facility] SARS-COV-2 COVID-19 ALY/J&J VACCINE 2021-04-23 00:00:00 Completed [facility] SARS-COV-2 COVID-19 PFIZER VACCINE 2021-04-23 00:00:00 Completed [facility] SARS-COV-2 COVID-19 ALY/J&J VACCINE 2021-04-23 00:00:00 Completed [facility] SARS-COV-2 COVID-19 PFIZER VACCINE 2021-04-23 00:00:00 Completed [facility] SARS-COV-2 COVID-19 ALY/J&J VACCINE 2021-04-23 00:00:00 Completed [facility] SARS-COV-2 COVID-19 PFIZER VACCINE 2021-04-23 00:00:00 Completed [facility] SARS-COV-2 COVID-19 ALY/J&J VACCINE 2021-04-23 00:00:00 Completed [facility] SARS-COV-2 COVID-19 PFIZER VACCINE 2021-04-23 00:00:00 Completed [facility] SARS-COV-2 COVID-19 ALY/J&J VACCINE 2021-04-23 00:00:00 Completed [facility] SARS-COV-2 COVID-19 PFIZER VACCINE 2021-04-23 00:00:00 Completed [facility] SARS-COV-2 COVID-19 ALY/J&J VACCINE 2021-04-23 00:00:00 Completed [facility] SARS-COV-2 COVID-19 PFIZER VACCINE 2021-04-23 00:00:00 Completed [facility] SARS-COV-2 COVID-19 ALY/J&J VACCINE 2021-04-23 00:00:00 Completed [facility] SARS-COV-2 COVID-19 PFIZER VACCINE 2021-04-23 00:00:00 Completed [facility] SARS-COV-2 COVID-19 ALY/J&J VACCINE 2021-04-23 00:00:00 Completed [facility] SARS-COV-2 COVID-19 PFIZER VACCINE 2021-04-23 00:00:00 Completed [facility] SARS-COV-2 COVID-19 ALY/J&J VACCINE 2021-04-23 00:00:00 Completed [facility] SARS-COV-2 COVID-19 PFIZER VACCINE 2021-04-23 00:00:00 Completed [facility] SARS-COV-2 COVID-19 ALY/J&J VACCINE 2021-04-23 00:00:00 Completed [facility] SARS-COV-2 COVID-19 PFIZER VACCINE 2021-04-23 00:00:00 Completed [facility] SARS-COV-2 COVID-19 ALY/J&J VACCINE 2021-04-23 00:00:00 Completed [facility] SARS-COV-2 COVID-19 PFIZER VACCINE 2021-04-23 00:00:00 Completed [facility] SARS-COV-2 COVID-19 ALY/J&J VACCINE 2021-04-23 00:00:00 Completed [facility] SARS-COV-2 COVID-19 PFIZER VACCINE 2021-04-23 00:00:00 Completed [facility] SARS-COV-2 COVID-19 ALY/J&J VACCINE 2021-04-23 00:00:00 Completed [facility] SARS-COV-2 COVID-19 PFIZER VACCINE 2021-04-23 00:00:00 Completed [facility] SARS-COV-2 COVID-19 ALY/J&J VACCINE 2021-04-23 00:00:00 Completed [facility] SARS-COV-2 COVID-19 PFIZER VACCINE 2021-04-23 00:00:00 Completed [facility] SARS-COV-2 COVID-19 ALY/J&J VACCINE 2021-04-23 00:00:00 Completed [facility] SARS-COV-2 COVID-19 PFIZER VACCINE 2021-04-23 00:00:00 Completed [facility] SARS-COV-2 COVID-19 ALY/J&J VACCINE 2021-04-23 00:00:00 Completed [facility] SARS-COV-2 COVID-19 PFIZER VACCINE 2021-04-23 00:00:00 Completed [facility] SARS-COV-2 COVID-19 ALY/J&J VACCINE 2021-04-23 00:00:00 Completed [facility] SARS-COV-2 COVID-19 PFIZER VACCINE 2021-04-23 00:00:00 Completed [facility] SARS-COV-2 COVID-19 ALY/J&J VACCINE 2021-04-23 00:00:00 Completed [facility] SARS-COV-2 COVID-19 PFIZER VACCINE 2021-04-23 00:00:00 Completed [facility] SARS-COV-2 COVID-19 ALY/J&J VACCINE 2021-04-23 00:00:00 Completed [facility] SARS-COV-2 COVID-19 PFIZER VACCINE 2021-04-23 00:00:00 Completed [facility] SARS-COV-2 COVID-19 ALY/J&J VACCINE 2021-04-23 00:00:00 Completed [facility] SARS-COV-2 COVID-19 PFIZER VACCINE 2021-04-23 00:00:00 Completed [facility] SARS-COV-2 COVID-19 ALY/J&J VACCINE 2021-04-23 00:00:00 Completed [facility] SARS-COV-2 COVID-19 PFIZER VACCINE 2021-04-02 00:00:00 Completed [facility] SARS-COV-2 COVID-19 ALY/J&J VACCINE 2021-04-02 00:00:00 Completed [facility] SARS-COV-2 COVID-19 PFIZER VACCINE 2021-04-02 00:00:00 Completed [facility] SARS-COV-2 COVID-19 ALY/J&J VACCINE 2021-04-02 00:00:00 Completed [facility] SARS-COV-2 COVID-19 PFIZER VACCINE 2021-04-02 00:00:00 Completed [facility] SARS-COV-2 COVID-19 ALY/J&J VACCINE 2021-04-02 00:00:00 Completed [facility] SARS-COV-2 COVID-19 PFIZER VACCINE 2021-04-02 00:00:00 Completed [facility] SARS-COV-2 COVID-19 ALY/J&J VACCINE 2021-04-02 00:00:00 Completed [facility] SARS-COV-2 COVID-19 PFIZER VACCINE 2021-04-02 00:00:00 Completed [facility] SARS-COV-2 COVID-19 ALY/J&J VACCINE 2021-04-02 00:00:00 Completed [facility] SARS-COV-2 COVID-19 PFIZER VACCINE 2021-04-02 00:00:00 Completed [facility] SARS-COV-2 COVID-19 ALY/J&J VACCINE 2021-04-02 00:00:00 Completed [facility] SARS-COV-2 COVID-19 PFIZER VACCINE 2021-04-02 00:00:00 Completed [facility] SARS-COV-2 COVID-19 ALY/J&J VACCINE 2021-04-02 00:00:00 Completed [facility] SARS-COV-2 COVID-19 PFIZER VACCINE 2021-04-02 00:00:00 Completed [facility] SARS-COV-2 COVID-19 ALY/J&J VACCINE 2021-04-02 00:00:00 Completed [facility] SARS-COV-2 COVID-19 PFIZER VACCINE 2021-04-02 00:00:00 Completed [facility] SARS-COV-2 COVID-19 ALY/J&J VACCINE 2021-04-02 00:00:00 Completed [facility] SARS-COV-2 COVID-19 PFIZER VACCINE 2021-04-02 00:00:00 Completed [facility] SARS-COV-2 COVID-19 ALY/J&J VACCINE 2021-04-02 00:00:00 Completed [facility] SARS-COV-2 COVID-19 PFIZER VACCINE 2021-04-02 00:00:00 Completed [facility] SARS-COV-2 COVID-19 ALY/J&J VACCINE 2021-04-02 00:00:00 Completed [facility] SARS-COV-2 COVID-19 PFIZER VACCINE 2021-04-02 00:00:00 Completed [facility] SARS-COV-2 COVID-19 ALY/J&J VACCINE 2021-04-02 00:00:00 Completed [facility] SARS-COV-2 COVID-19 PFIZER VACCINE 2021-04-02 00:00:00 Completed [facility] SARS-COV-2 COVID-19 ALY/J&J VACCINE 2021-04-02 00:00:00 Completed [facility] SARS-COV-2 COVID-19 PFIZER VACCINE 2021-04-02 00:00:00 Completed [facility] SARS-COV-2 COVID-19 ALY/J&J VACCINE 2021-04-02 00:00:00 Completed [facility] SARS-COV-2 COVID-19 PFIZER VACCINE 2021-04-02 00:00:00 Completed [facility] SARS-COV-2 COVID-19 ALY/J&J VACCINE 2021-04-02 00:00:00 Completed [facility] SARS-COV-2 COVID-19 PFIZER VACCINE 2021-04-02 00:00:00 Completed [facility] SARS-COV-2 COVID-19 ALY/J&J VACCINE 2021-04-02 00:00:00 Completed [facility] SARS-COV-2 COVID-19 PFIZER VACCINE 2021-04-02 00:00:00 Completed [facility] SARS-COV-2 COVID-19 ALY/J&J VACCINE 2021-04-02 00:00:00 Completed [facility] SARS-COV-2 COVID-19 PFIZER VACCINE 2021-04-02 00:00:00 Completed [facility] SARS-COV-2 COVID-19 ALY/J&J VACCINE 2021-04-02 00:00:00 Completed [facility] SARS-COV-2 COVID-19 PFIZER VACCINE 2021-04-02 00:00:00 Completed [facility] SARS-COV-2 COVID-19 ALY/J&J VACCINE 2021-04-02 00:00:00 Completed [facility] SARS-COV-2 COVID-19 PFIZER VACCINE 2021-04-02 00:00:00 Completed [facility] SARS-COV-2 COVID-19 ALY/J&J VACCINE 2021-04-02 00:00:00 Completed [facility] SARS-COV-2 COVID-19 PFIZER VACCINE 2021-04-02 00:00:00 Completed [facility] SARS-COV-2 COVID-19 ALY/J&J VACCINE 2021-04-02 00:00:00 Completed [facility] SARS-COV-2 COVID-19 PFIZER VACCINE 2021-04-02 00:00:00 Completed [facility] SARS-COV-2 COVID-19 ALY/J&J VACCINE 2021-04-02 00:00:00 Completed [facility] SARS-COV-2 COVID-19 PFIZER VACCINE 2021-04-02 00:00:00 Completed [facility] SARS-COV-2 COVID-19 ALY/J&J VACCINE 2021-04-02 00:00:00 Completed [facility] SARS-COV-2 COVID-19 PFIZER VACCINE 2021-04-02 00:00:00 Completed [facility] SARS-COV-2 COVID-19 ALY/J&J VACCINE 2021-04-02 00:00:00 Completed [facility] Influenza Virus Vaccine Quad IM 3+ 2020-05-12 00:00:00 Completed [facility] Influenza Virus Vaccine Quad IM 3+ 2020-05-12 00:00:00 Completed [facility] Influenza Virus Vaccine Quad IM 3+ YRS 2020-05-12 00:00:00 Completed [facility] Influenza Virus Vaccine Quad IM 3+ 2020-05-12 00:00:00 Completed [facility] Influenza Virus Vaccine Quad IM 3+ YRS 2020-05-12 00:00:00 Completed [facility] Influenza Virus Vaccine Quad IM 3+ YRS 2020-05-12 00:00:00 Completed [facility] Influenza Virus Vaccine Quad IM 3+ YRS 2020-05-12 00:00:00 Completed [facility] Influenza Virus Vaccine Quad IM 3+ YRS 2020-05-12 00:00:00 Completed [facility] Influenza Virus Vaccine Quad IM 3+ YRS 2020-05-12 00:00:00 Completed [facility] Influenza Virus Vaccine Quad IM 3+ YRS 2020-05-12 00:00:00 Completed [facility] Influenza Virus Vaccine Quad IM 3+ YRS 2020-05-12 00:00:00 Completed [facility] Influenza Virus Vaccine Quad IM 3+ YRS 2020-05-12 00:00:00 Completed [facility] Influenza Virus Vaccine Quad IM 3+ YRS 2020-05-12 00:00:00 Completed [facility] Influenza Virus Vaccine Quad IM 3+ YRS 2020-05-12 00:00:00 Completed [facility] Influenza Virus Vaccine Quad IM 3+ YRS 2020-05-12 00:00:00 Completed [facility] Influenza Virus Vaccine Quad IM 3+ YRS 2020-05-12 00:00:00 Completed [facility] Influenza Virus Vaccine Quad IM 3+ YRS 2020-05-12 00:00:00 Completed [facility] Influenza Virus Vaccine Quad IM 3+ YRS 2020-05-12 00:00:00 Completed [facility] Influenza Virus Vaccine Quad IM 3+ YRS 2020-05-12 00:00:00 Completed [facility] Influenza Virus Vaccine Quad IM 3+ YRS 2020-05-12 00:00:00 Completed [facility] Influenza Virus Vaccine Quad IM 3+ YRS 2020-05-12 00:00:00 Completed [facility] Influenza Virus Vaccine Quad IM 3+ YRS 2020-05-12 00:00:00 Completed [facility] Influenza Virus Vaccine Quad IM 3+ YRS 2020-05-12 00:00:00 Completed [facility] Influenza Virus Vaccine Quad IM 3+ YRS 2020-05-12 00:00:00 Completed [facility] LIDOCAINE HCL 10MG/ML LIDOCAINE HCL 10MG/ML 2020-01-20 08:45:00 Completed [facility] LIDOCAINE HCL 10MG/ML LIDOCAINE HCL 10MG/ML 2020-01-20 08:45:00 Completed [facility] LIDOCAINE HCL 10MG/ML LIDOCAINE HCL 10MG/ML 2020-01-20 08:45:00 Completed [facility] LIDOCAINE HCL 10MG/ML LIDOCAINE HCL 10MG/ML 2020-01-20 08:45:00 Completed [facility] LIDOCAINE HCL 10MG/ML LIDOCAINE HCL 10MG/ML 2020-01-20 08:45:00 Completed [facility] LIDOCAINE HCL 10MG/ML LIDOCAINE HCL 10MG/ML 2020-01-20 08:45:00 Completed [facility] Depo-Medrol (Methylprednisolone ) 40mg Depo-Medrol (Methylprednisolon e) 40mg 2020-01-20 08:44:00 Completed [facility] Depo-Medrol (Methylprednisolone ) 40mg Depo-Medrol (Methylprednisolon e) 40mg 2020-01-20 08:44:00 Completed [facility] Depo-Medrol (Methylprednisolone ) 40mg Depo-Medrol (Methylprednisolon e) 40mg 2020-01-20 08:44:00 Completed [facility] Depo-Medrol (Methylprednisolone ) 40mg Depo-Medrol (Methylprednisolon e) 40mg 2020-01-20 08:43:00 Completed [facility] Depo-Medrol (Methylprednisolone ) 40mg Depo-Medrol (Methylprednisolon e) 40mg 2020-01-20 08:43:00 Completed [facility] Depo-Medrol (Methylprednisolone ) 40mg Depo-Medrol (Methylprednisolon e) 40mg 2020-01-20 08:43:00 Completed [facility] Influenza Virus Vaccine Quad IM 3+ YRS 2019-09-13 00:00:00 Completed [facility] Influenza Virus Vaccine Quad IM 3+ 2019-09-13 00:00:00 Completed [facility] Influenza Virus Vaccine Quad IM 3+ 2019-09-13 00:00:00 Completed [facility] Influenza Virus Vaccine Quad IM 3+ 2019-09-13 00:00:00 Completed [facility] Influenza Virus Vaccine Quad IM 3+ 2019-09-13 00:00:00 Completed [facility] Influenza Virus Vaccine Quad IM 3+ YRS 2019-09-13 00:00:00 Completed [facility] Influenza Virus Vaccine Quad IM 3+ YRS 2019-09-13 00:00:00 Completed [facility] Influenza Virus Vaccine Quad IM 3+ 2019-09-13 00:00:00 Completed [facility] Influenza Virus Vaccine Quad IM 3+ YRS 2019-09-13 00:00:00 Completed [facility] Influenza Virus Vaccine Quad IM 3+ YRS 2019-09-13 00:00:00 Completed [facility] Influenza Virus Vaccine Quad IM 3+ YRS 2019-09-13 00:00:00 Completed [facility] Influenza Virus Vaccine Quad IM 3+ YRS 2019-09-13 00:00:00 Completed [facility] Influenza Virus Vaccine Quad IM 3+ YRS 2019-09-13 00:00:00 Completed [facility] Influenza Virus Vaccine Quad IM 3+ YRS 2019-09-13 00:00:00 Completed [facility] Influenza Virus Vaccine Quad IM 3+ YRS 2019-09-13 00:00:00 Completed [facility] Influenza Virus Vaccine Quad IM 3+ YRS 2019-09-13 00:00:00 Completed [facility] Influenza Virus Vaccine Quad IM 3+ YRS 2019-09-13 00:00:00 Completed [facility] Influenza Virus Vaccine Quad IM 3+ YRS 2019-09-13 00:00:00 Completed [facility] Influenza Virus Vaccine Quad IM 3+ YRS 2019-09-13 00:00:00 Completed [facility] Influenza Virus Vaccine Quad IM 3+ YRS 2019-09-13 00:00:00 Completed [facility] Influenza Virus Vaccine Quad IM 3+ YRS 2019-09-13 00:00:00 Completed [facility] Influenza Virus Vaccine Quad IM 3+ YRS 2019-09-13 00:00:00 Completed [facility] Influenza Virus Vaccine Quad IM 3+ YRS 2019-09-13 00:00:00 Completed [facility] Influenza Virus Vaccine Quad IM 3+ YRS 2019-09-13 00:00:00 Completed [facility] SARS-COV-2 COVID-19 PFIZER VACCINE Unknown Completed [facility] SARS-COV-2 COVID-19 PFIZER VACCINE Unknown Completed [facility] SARS-COV-2 COVID-19 ALY/J&J VACCINE Unknown Completed [facility] SARS-COV-2 COVID-19 ALY/J&J VACCINE Unknown Completed [facility] Influenza Virus Vaccine Quad IM 3+ YRS Unknown Completed [facility] Influenza Virus Vaccine Quad IM 3+ YRS Unknown Completed [facility] Influenza Virus Vaccine Quad IM 3+ YRS Unknown Completed [facility] SARS-COV-2 COVID-19 PFIZER VACCINE Unknown Completed [facility] SARS-COV-2 COVID-19 PFIZER VACCINE Unknown Completed [facility] SARS-COV-2 COVID-19 ALY/J&J VACCINE Unknown Completed [facility] SARS-COV-2 COVID-19 ALY/J&J VACCINE Unknown Completed [facility] Influenza Virus Vaccine Quad IM 3+ YRS Unknown Completed [facility] Influenza Virus Vaccine Quad IM 3+ YRS Unknown Completed [facility] Influenza Virus Vaccine Quad IM 3+ YRS Unknown Completed [facility] SARS-COV-2 COVID-19 PFIZER VACCINE Unknown Completed [facility] SARS-COV-2 COVID-19 PFIZER VACCINE Unknown Completed [facility] SARS-COV-2 COVID-19 ALY/J&J VACCINE Unknown Completed [facility] SARS-COV-2 COVID-19 ALY/J&J VACCINE Unknown Completed [facility] Influenza Virus Vaccine Quad IM 3+ YRS Unknown Completed [facility] Influenza Virus Vaccine Quad IM 3+ YRS Unknown Completed [facility] Influenza Virus Vaccine Quad IM 3+ YRS Unknown Completed [facility] SARS-COV-2 COVID-19 PFIZER VACCINE Unknown Completed [facility] SARS-COV-2 COVID-19 PFIZER VACCINE Unknown Completed [facility] SARS-COV-2 COVID-19 ALY/J&J VACCINE Unknown Completed [facility] SARS-COV-2 COVID-19 ALY/J&J VACCINE Unknown Completed [facility] Influenza Virus Vaccine Quad IM 3+ YRS Unknown Completed [facility] Influenza Virus Vaccine Quad IM 3+ YRS Unknown Completed [facility] Influenza Virus Vaccine Quad IM 3+ YRS Unknown Completed [facility] Vital Signs Vital Name Observation Time Observation Value Comments S ource height 2023-09-18 14:30:00 61.5 [in_i] Comm on [facility] weight 2023-09-18 14:30:00 217.6 [lb_av] Co mmon [facility] temperature 2023-09-18 14:30:00 97.9 [degF] Com mon [facility] bmi 2023-09-18 14:30:00 40.44 kg/m2 Comm on [facility] blood pressure systolic 2023-09-18 14:30:00 128 mm[Hg] [facility] blood pressure diastolic 2023-09-18 14:30:00 83 mm[Hg] [facility] Systolic blood pressure 2023-08-30 17:41:00 129 mm[Hg] [facility] Diastolic blood pressure 2023-08-30 17:41:00 73 mm[Hg] [facility] Heart rate 2023-08-30 17:41:00 93 /min [facility] Body temperature 2023-08-30 17:41:00 36.67 Vika [facility] Respiratory rate 2023-08-30 17:41:00 18 /min [facility] Oxygen saturation in Arterial blood by Pulse oximetry 2023-08-30 17:41:00 97 /min [facility] Body height 2023-08-30 01:53:00 157.5 cm [facility] Body weight 2023-08-30 01:53:00 103.42 kg [facility] BMI 2023-08-30 01:53:00 41.70 kg/m2 [facility] height 2023-05-23 10:30:00 61.5 [in_i] Comm on [facility] weight 2023-05-23 10:30:00 225 [lb_av] Comm on [facility] temperature 2023-05-23 10:30:00 98.1 [degF] Com mon [facility] bmi 2023-05-23 10:30:00 41.82 kg/m2 Comm on [facility] blood pressure systolic 2023-05-23 10:30:00 131 mm[Hg] [facility] blood pressure diastolic 2023-05-23 10:30:00 82 mm[Hg] [facility] height 2023-05-07 09:30:00 61.5 [in_i] Comm on [facility] weight 2023-05-07 09:30:00 227 [lb_av] Comm on [facility] temperature 2023-05-07 09:30:00 97.6 [degF] Com mon [facility] bmi 2023-05-07 09:30:00 42.19 kg/m2 Comm on [facility] blood pressure systolic 2023-05-07 09:30:00 130 mm[Hg] [facility] blood pressure diastolic 2023-05-07 09:30:00 78 mm[Hg] [facility] height 2023-03-17 13:45:00 61.5 [in_i] Comm on [facility] weight 2023-03-17 13:45:00 220 [lb_av] Comm on [facility] temperature 2023-03-17 13:45:00 98.2 [degF] Com mon [facility] bmi 2023-03-17 13:45:00 40.89 kg/m2 Comm on [facility] blood pressure systolic 2023-03-17 13:45:00 132 mm[Hg] [facility] blood pressure diastolic 2023-03-17 13:45:00 84 mm[Hg] [facility] height 2023-01-13 08:45:00 61.5 [in_i] Comm on [facility] weight 2023-01-13 08:45:00 221 [lb_av] Comm on [facility] temperature 2023-01-13 08:45:00 97.9 [degF] Com mon [facility] bmi 2023-01-13 08:45:00 41.08 kg/m2 Comm on [facility] blood pressure systolic 2023-01-13 08:45:00 128 mm[Hg] [facility] blood pressure diastolic 2023-01-13 08:45:00 82 mm[Hg] [facility] height 2023-01-07 09:30:00 61.5 [in_i] Comm on [facility] weight 2023-01-07 09:30:00 221 [lb_av] Comm on [facility] temperature 2023-01-07 09:30:00 97.7 [degF] Com mon [facility] bmi 2023-01-07 09:30:00 41.08 kg/m2 Comm on [facility] blood pressure systolic 2023-01-07 09:30:00 134 mm[Hg] [facility] blood pressure diastolic 2023-01-07 09:30:00 80 mm[Hg] [facility] Systolic blood pressure 2022-12-27 14:00:00 120 mm[Hg] [facility] Diastolic blood pressure 2022-12-27 14:00:00 87 mm[Hg] [facility] Heart rate 2022-12-27 14:00:00 102 /min [facility] Body height 2022-12-27 14:00:00 152.4 cm [facility] Body weight 2022-12-27 14:00:00 101.696 kg [facility] BMI 2022-12-27 14:00:00 43.79 kg/m2 [facility] Oxygen saturation in Arterial blood by Pulse oximetry 2022-12-27 14:00:00 98 /min [facility] Systolic blood pressure 2022-09-23 14:42:00 141 mm[Hg] [facility] Diastolic blood pressure 2022-09-23 14:42:00 74 mm[Hg] [facility] Heart rate 2022-09-23 14:42:00 76 /min [facility] Respiratory rate 2022-09-23 14:42:00 8 /min [facility] Oxygen saturation in Arterial blood by Pulse oximetry 2022-09-23 14:42:00 100 /min [facility] Body temperature 2022-09-23 14:07:00 36.5 Vika [facility] Body height 2022-09-17 19:30:00 154.9 cm [facility] Body weight 2022-09-17 19:30:00 113.399 kg [facility] BMI 2022-09-17 19:30:00 47.24 kg/m2 [facility] Systolic blood pressure 2022-09-23 12:46:00 144 mm[Hg] [facility] Diastolic blood pressure 2022-09-23 12:46:00 68 mm[Hg] [facility] Heart rate 2022-09-23 12:46:00 90 /min [facility] Body temperature 2022-09-23 12:46:00 36.56 Vika [facility] Respiratory rate 2022-09-23 12:46:00 17 /min [facility] Oxygen saturation in Arterial blood by Pulse oximetry 2022-09-23 12:46:00 95 /min [facility] Body height 2022-09-17 19:30:00 154.9 cm [facility] Body weight 2022-09-17 19:30:00 113.399 kg [facility] BMI 2022-09-17 19:30:00 47.24 kg/m2 [facility] Systolic blood pressure 2022-09-19 16:02:00 125 mm[Hg] [facility] Diastolic blood pressure 2022-09-19 16:02:00 81 mm[Hg] [facility] Heart rate 2022-09-19 16:02:00 79 /min [facility] Body temperature 2022-09-19 16:02:00 36.94 Vika [facility] Respiratory rate 2022-09-19 16:02:00 18 /min [facility] Body height 2022-09-19 16:02:00 154.9 cm [facility] Body weight 2022-09-19 16:02:00 104.327 kg [facility] BMI 2022-09-19 16:02:00 43.46 kg/m2 [facility] Oxygen saturation in Arterial blood by Pulse oximetry 2022-09-19 16:02:00 98 /min [facility] Body weight 2022-09-10 21:39:00 113.399 kg [facility] BMI 2022-09-10 21:39:00 47.24 kg/m2 [facility] Systolic blood pressure 2022-06-12 18:06:00 155 mm[Hg] [facility] Diastolic blood pressure 2022-06-12 18:06:00 84 mm[Hg] [facility] Heart rate 2022-06-12 18:06:00 90 /min [facility] Body temperature 2022-06-12 18:06:00 36 Vika [facility] Respiratory rate 2022-06-12 18:06:00 18 /min [facility] Oxygen saturation in Arterial blood by Pulse oximetry 2022-06-12 18:06:00 94 /min [facility] Body weight 2022-06-11 09:20:00 113.49 kg [facility] BMI 2022-06-11 09:20:00 47.27 kg/m2 [facility] Body height 2022-06-11 01:52:00 154.9 cm [facility] Systolic blood pressure 2022-04-19 13:32:00 127 mm[Hg] [facility] Diastolic blood pressure 2022-04-19 13:32:00 67 mm[Hg] [facility] Heart rate 2022-04-19 13:32:00 88 /min [facility] 2022-04-19 13:32:00 154.9 cm [facility] Body weight 2022-04-19 13:32:00 117.028 kg [facility] BMI 2022-04-19 13:32:00 48.75 kg/m2 [facility] Body height 2020-12-18 16:17:00 [facility] 2020-12-18 16:17:00 115[facility]667 [facility] BMI 2020-12-18 16:17:00 46.64 [facility] height 2020-12-18 16:17:00 [facility] 2020-12-18 16:17:00 115[facility]667 [facility] BMI 2020-12-18 16:17:00 46.64 [facility]m2 [facility] Procedures Procedure Date / Time Performed Performing Clinician Source POCT GLUCOSE (AUTOMATED) 2023-08-30 18:30:00 Jarred Barker [facility] POCT GLUCOSE (AUTOMATED) 2023-08-30 13:51:00 Jarred Barker [facility] TROPONIN I 2023-08-30 09:22:00 [facility] GLYCOSYLATED HEMOGLOBIN (A1C) 2023-08-30 04:51:00 Annamaria Barker [facility] TROPONIN I 2023-08-30 04:50:00 Tom [facility] POCT GLUCOSE (AUTOMATED) 2023-08-30 02:21:00 [facility] URINE DRUG (IMMUNOASSAY) - COMPREHENSIVE DRUG SCREEN W/O REFLEX 2023-08-30 00:00:00 Marylou Driver [facility] CT ABDOMEN PELVIS W CONTRAST 2023-08-29 23:18:33 Marylou Driver [facility] CT CHEST PULMONARY ANGIOGRAM 2023-08-29 19:11:03 Marylou Driver [facility] URINALYSIS 2023-08-29 17:44:00 Marylou Driver [facility] XR CHEST 1 VW 2023-08-29 17:05:57 Marylou Driver [facility] LIPASE 2023-08-29 16:43:00 Marylou Driver [facility] MAGNESIUM 2023-08-29 16:43:00 Marylou Driver [facility] TROPONIN I 2023-08-29 16:43:00 Marylou Driver [facility] COMP. METABOLIC PANEL ([id number]) 2023-08-29 16:43:00 Marylou Driver [facility] CBC WITH DIFF 2023-08-29 16:43:00 Marylou Driver [facility] D-DIMER 2023-08-29 16:43:00 Marylou Driver [facility] HB ECG ROUTINE & RHYTHM STRIP 2023-08-29 16:32:22 Marylou Driver [facility] - [facility] CARD[facility] 2022-12-31 05:01:00 Doctor Unassigned, House [facility] EXTERNAL PROVIDER - [facility] REFERRAL 2022-12-20 05:01:00 Doctor Unassigned, House [facility] FL TIME OR (NON-REPORTABLE) 2022-09-23 14:53:25 Kayla Lutz [facility] [place] TIME OR (NON-REPORTABLE) 2022-09-23 14:53:25 Kayla Lutz [facility] MAJOR JOINT INJECTION 2022-09-23 13:32:00 Inderjit Lutz [facility] POCT GLUCOSE (AUTOMATED) 2022-09-23 12:50:00 Kayla Lutz [facility] POCT GLUCOSE (AUTOMATED) 2022-09-23 12:50:00 Kayla Lutz [facility] HB ABO GROUPING 2022-09-23 12:45:00 Kayla Lutz [facility] HB ABO GROUPING 2022-09-23 12:45:00 Kayla Lutz [facility] DAY SURGERY - ADC 2022-09-23 06:01:00 Doctor Rena ssigned, House [facility] TROPONIN I 2022-09-19 15:38:00 [facility] X[facility] CHEST 2 VW 2022-09-19 14:38:32 [facility] 2022-09-19 14:20:21 Docto r Unassigned, House [facility] EXTERNAL PROVIDER RECORDS 2022-09-17 06:01:00 Doctor Unassigned, House [facility] ASSIGNMENT OF BENEFITS 2022-09-10 21:32:35 Docto r Unassigned, House [facility] POCT GLUCOSE (AUTOMATED) 2022-06-12 18:08:00 Jarred Barker [facility] BASIC METABOLIC PANEL (NA, K, CL, CO2, GLUCOSE, BUN, CREATININE, CA) 2022-06-12 09:27:00 Jimmy Rowland [facility] CBC WITH DIFF 2022-06-12 09:27:00 Jimmy Rowland [facility] POCT GLUCOSE (AUTOMATED) 2022-06-12 07:56:00 Jarred Barker [facility] POCT GLUCOSE (AUTOMATED) 2022-06-12 01:45:00 Jarred Barker [facility] POCT GLUCOSE (AUTOMATED) 2022-06-11 22:56:00 Jarred Barker [facility] POCT GLUCOSE (AUTOMATED) 2022-06-11 18:11:00 Jarred Barker [facility] POCT GLUCOSE (AUTOMATED) 2022-06-11 14:05:00 Jarred Barker [facility] PHOSPHORUS 2022-06-11 10:40:00 Robbi Muro [facility] CREATINE KINASE 2022-06-11 10:40:00 Robbi Muro [facility] AMYLASE 2022-06-11 10:40:00 Robbi Muro [facility] LIPASE 2022-06-11 10:40:00 Robbi Muro [facility] MAGNESIUM 2022-06-11 10:40:00 Bhaskar ender [facility] COMP. METABOLIC PANEL (82633) 2022-06-11 10:40:00 Robbi Muro [facility] CBC WITH DIFF 2022-06-11 10:40:00 Robbi Muro [facility] GLYCOSYLATED HEMOGLOBIN (A1C) 2022-06-11 10:40:00 Jimmy Rowland [facility] N-TERMINAL PRO-BNP 2022-06-11 10:40:00 Robbi Muro [facility] POCT GLUCOSE (AUTOMATED) 2022-06-11 07:56:00 Jarred Barker [facility] URINE CULTURE 2022-06-11 05:18:00 Robbi Muro [facility] PROTHROMBIN TIME / INR 2022-06-11 03:24:00 Thang Muro [facility] LACTIC ACID WHOLE BLOOD 2022-06-11 03:18:00 Jory Muro [facility] C-REACTIVE PROTEIN 2022-06-11 03:17:00 Robbi Muro [facility] SEDIMENTATION RATE 2022-06-11 03:17:00 Robbi Muro [facility] PROCALCITONIN 2022-06-11 03:17:00 Robbi Muro [facility] US OVARY TORSION 2022-06-10 22:01:56 [facility] 2022-06-10 19:14:00 Brodie Clemons [facility] CT ABDOMEN PELVIS WO CONTRAST 2022-06-10 18:36:36 Brodie Clemons [facility] PHOSPHORUS 2022-06-10 17:54:00 Robbi Muro [facility] URIC ACID 2022-06-10 17:54:00 Bhaskar ender [facility] LIPASE 2022-06-10 17:54:00 Brodie Clemons [facility] MAGNESIUM 2022-06-10 17:54:00 Bhaskar ender [facility] FERRITIN SERUM 2022-06-10 17:54:00 Robbi Muro [facility] HEPATIC FUNCTION PANEL (13418) (ALB,T.PRO,BILI T,BU/BC,ALT,AST,ALK PHOS) 2022-06-10 17:54:00 Brodie Clemons [facility] BASIC METABOLIC PANEL (NA, K, CL, CO2, GLUCOSE, BUN, CREATININE, CA) 2022-06-10 17:54:00 Brodie Clemons [facility] IRON PANEL 2022-06-10 17:54:00 Robbi Muro [facility] CBC WITH DIFF 2022-06-10 17:54:00 [facility] N-TERMINAL PRO-BNP 2022-06-10 17:54:00 Robbi Muro [facility] CONSENT/REFUSAL FOR DIAGNOSIS AND TREATMENT 2022-06-10 17:38:54 Doctor Unassigned, House [facility] Encounters Start Date/Time End Date/Time Encounter Type Admission Type Attending [facility] Care Facility Care Department Encounter ID Source 2023-09-16 15:59:01 Outpatient Kenya Evans STLMLC [facility] [id number] [facility] 2023-09-15 13:03:00 Outpatient Kenya Evans STLML[facility] ST[facility] [id number] [facility] 2023-01-10 09:10:01 Outpatient Kenya Evans STLMLC ST[facility] [id number] [facility] 2023-01-07 11:56:01 Outpatient Kenya Evans STLMLC STL[facility] [id number] [facility] 2022-12-24 16:13:00 Outpatient Kenya Evans STLMLC STLMLC [id number] [facility] 2022-01-04 12:25:16 Outpatient KAYLA MAGDALENO [facility] [id number] [facility] 2021-08-29 12:51:44 Outpatient STLMLC STLMLC [id number] [facility] 2021-08-29 11:59:56 Outpatient STLMLC STLMLC [id number] [facility] 2021-08-29 11:28:05 Outpatient STLMLC STLMLC [id number] [facility] 2021-08-29 11:27:12 Outpatient STLMLC STLMLC [id number] [facility] 2021-06-01 02:46:06 Emergency [facility] [id number] [facility] 2020-12-18 09:37:27 Outpatient [facility] [id number] [facility] 2020-12-18 09:37:27 Outpatient [facility] [id number] [facility] 2020-12-18 09:37:27 Outpatient [facility] [id number] [facility] 2020-12-15 12:03:34 Outpatient [facility] [id number] [facility] 2020-12-15 12:03:34 Outpatient [facility] [id number] [facility] 2020-12-15 12:00:05 Outpatient [facility] [id number] [facility] 2020-12-09 04:06:39 Outpatient LACEY CLEMENTS [facility] [id number] [facility] 2023-09-18 00:00:00 2023-09-18 00:00:00 (ESTPT) Dayne love Patient [facility] [id number] [facility] 2023-09-03 00:00:00 2023-09-03 00:00:00 Patient Secure Msg Doctor Unassigned, House [facility] 1.2840.114 350.1.13.10 4.2.7.2.686 [id number] [facility] 2023-09-01 00:00:00 2023-09-01 00:00:00 Transition of Care Veronika Espinoza 1.2.840.114 350.1.13.10 4.2.7.2.686 [id number] [facility] 2023-08-29 10:29:00 2023-08-30 14:13:00 Outpatient ANNAMARIA RAY [facility] [id number] [facility] 2023-08-29 10:29:00 2023-08-30 14:13:00 Emergency Marylou Driver David [facility] 1.840.114 350.1.13.10 4.2.7.2.686 [id number] [facility] 2023-08-30 00:00:00 2023-08-30 00:00:00 Telephone Bree Cervantes [facility] [place] [id number] 350.1.13.10 4.2.7.2.686 [id number] [facility] 2023-05-23 00:00:00 2023-05-23 00:00:00 (PO) Post Op STLMLC STLMLC [id number] [facility] 2023-05-07 00:00:00 2023-05-07 00:00:00 NON-BILLAB LE VISIT STLMLC STLMLC [id number] [facility] 2023-04-29 00:00:00 2023-04-29 00:00:00 (TEL) STLMLC STLMLC [id number] [facility] 2023-04-08 00:00:00 2023-04-08 00:00:00 (TEL) STLMLC STLMLC [id number] [facility] 2023-04-03 00:00:00 2023-04-03 00:00:00 (TEL) STLMLC STLMLC [id number] [facility] 2023-03-19 00:00:00 2023-03-19 00:00:00 (TEL) STLMLC STLMLC [id number] [facility] 2023-03-17 00:00:00 2023-03-17 00:00:00 OFFICE VISIT ESTAB PT LEVEL 3 STLMLC STLMLC [id number] [facility] 2023-01-13 00:00:00 2023-01-13 00:00:00 OFFICE VISIT ESTAB PT LEVEL 3 STLMLC STLMLC [id number] [facility] 2023-01-07 00:00:00 2023-01-07 00:00:00 OFFICE VISIT ESTAB PT LEVEL 4 STLMLC STLMLC [id number] [facility] 2022-12-31 00:00:00 2022-12-31 00:00:00 Telephone [facility] [id number] 350.1.13.10 4.2.7.2.686 [id number] [facility] 2022-12-31 00:00:00 2022-12-31 00:00:00 Orders Only Doctor Unassigned, House [facility] 1.2840.114 350.1.13.10 4.2.7.2.686 [id number] [facility] 2022-12-27 09:20:00 2022-12-27 09:20:00 [facility] 1.840.114 350.1.13.10 4.2.7.2.686 [id number] [facility] 2022-12-27 09:20:00 2022-12-27 09:12:16 Outpatient R [facility]Y [facility] [id number] [facility] 2022-12-26 09:40:00 2022-12-26 09:40:00 Outpatient R BILLY [facility] [id number] [facility] 2022-12-20 00:00:00 2022-12-20 00:00:00 Orders Only Doctor Unassigned, House [facility] 1.2840.114 350.1.13.10 4.2.7.2.686 [id number] [facility] 2022-09-23 06:38:00 2022-09-23 09:05:00 Outpatient R KAYLA LUTZ [facility] [id number] [facility] 2022-09-23 06:38:00 2022-09-23 09:05:00 Hospital Encounter Kayla Lutz [facility] 1.2840.114 350.1.13.10 4.2.7.2.686 [id number] [facility] 2022-09-23 07:25:00 2022-09-23 07:50:00 Surgery Kayla Lutz [facility] 1.2840.114 350.1.13.10 4.2.7.2.686 [id number] [facility] 2022-09-23 00:00:00 2022-09-23 00:00:00 Orders Only Doctor Unassigned, House [facility] 1.2840.114 350.1.13.10 4.2.7.2.686 [id number] [facility] 2022-09-20 00:00:00 2022-09-20 00:00:00 [facility]phone [facility] 1.2840.114 350.1.13.10 4.2.7.2.686 [id number] [facility] 2022-09-19 10:05:00 2022-09-19 11:39:00 Emergency X PEDRO LUIS RUSHING PEDRO LUIS [facility] ERT [id number] [facility] 2022-09-19 10:05:00 2022-09-19 11:39:00 Emergency Pedro Luis Rushing [facility] 1.2840.114 350.1.13.10 4.2.7.2.686 [id number] [facility] 2022-09-19 10:15:00 2022-09-19 10:30:00 Engineer Sergeant Visit Pob, Adc Lab Main Kayla Lutz [facility] PROFESSIO NAL BUILDING 1.0.114 350.1.13.10 4.2.7.2.686 [id number] [facility] 2022-09-19 08:22:49 2022-09-19 10:04:00 Hospital Encounter Kayla Lutz [facility] 1.2840.114 350.1.13.10 4.2.7.2.686 [id number] [facility] 2022-09-19 08:21:46 2022-09-19 08:21:46 Outpatient R KAYLA LUTZ [facility] [id number] [facility] 2022-09-19 00:00:00 2022-09-19 00:00:00 Orders Only Doctor Unassigned, House [facility] 1.2840.114 350.1.13.10 4.2.7.2.686 [id number] [facility] 2022-09-17 00:00:00 2022-09-17 00:00:00 Orders Only Doctor Unassigned, House [facility] 1.2840.114 350.1.13.10 4.2.7.2.686 [id number] [facility] 2022-09-16 00:00:00 2022-09-16 00:00:00 Prep For Surgery Kayla Lutz [facility] MEDICAL OFFICE BUILDING 1.2840.114 350.1.13.10 4.2.7.2.686 [id number] [facility] 2022-09-10 16:30:00 2022-09-10 23:59:00 Outpatient R BERNICE COLUNGA [facility] [id number] [facility] 2022-09-10 16:00:00 2022-09-10 16:15:00 Office Visit Bernice Colunga [facility] MEDICAL OFFICE BUILDING 1.2.840.114 350.1.13.10 4.2.7.2.686 [id number] [facility] 2022-09-10 00:00:00 2022-09-10 00:00:00 Orders Only Doctor Unassigned, House [facility] 1.2840.114 350.1.13.10 4.2.7.2.686 [id number] [facility] 2022-09-10 00:00:00 2022-09-10 00:00:00 Telephone Keanu [facility] 1.2.840.114 350.1.13.10 4.2.7.2.686 [id number] [facility] 2022-09-09 00:00:00 2022-09-09 00:00:00 Telephone Keanu [facility] 1.2.840.114 350.1.13.10 4.2.7.2.686 [id number] [facility] 2022-06-13 00:00:00 2022-06-13 00:00:00 Transition of Care Chelo Cornejo [facility] 1..840.114 350.1.13.10 4.2.7.2.686 [id number] [facility] 2022-06-10 11:37:00 2022-06-12 16:00:00 Outpatient ANNAMARIA RAY [facility] [id number] [facility] 2022-06-10 11:37:00 2022-06-12 16:00:00 Emergency Brodie Clemons David [facility] 1..840.114 350.1.13.10 4.2.7.2.686 [id number] [facility] 2022-04-19 08:55:00 2022-04-19 23:59:00 Outpatient R BERNICE COLUNGA [facility] [id number] [facility] 2022-04-19 08:55:00 2022-04-19 23:59:00 Outpatient R KEANU [facility] [id number] [facility] 2022-04-19 08:45:00 2022-04-19 09:00:00 [facility] MED[facility] OFF[facility] BUILDING 1..840.114 350.1.13.10 4.2.7.2.686 [id number] [facility] 2022-02-25 15:15:00 2022-02-25 15:15:00 Outpatient BERNICE REYES [facility] [id number] [facility] 2022-02-21 10:45:00 2022-02-21 10:45:00 Outpatient R BERNICE COLUNGA [facility] [id number] [facility] 2022-02-18 10:30:00 2022-02-18 10:30:00 Outpatient R FILIPE WIGGINS [facility] [id number] [facility] 2022-01-18 10:00:00 2022-01-18 10:00:00 Outpatient CLAYTON THOMAS [facility] [id number] [facility] 2022-01-17 00:00:00 2022-01-17 00:00:00 Refill Kayla Lutz [facility] 1..840.114 350.1.13.10 4.2.7.2.686 [id number] [facility] 2022-01-14 06:59:00 2022-01-14 09:15:00 Outpatient R KAYLA LUTZ [facility] [id number] [facility] 2022-01-14 06:59:00 2022-01-14 09:15:00 Hospital Encounter Kayla Lutz [facility] 1.284.114 350.1.13.10 4.2.7.2.686 [id number] [facility] 2022-01-14 08:20:00 2022-01-14 09:12:00 Surgery Kayla Lutz [facility] 1.2840.114 350.1.13.10 4.2.7.2.686 [id number] [facility] 2022-01-14 08:25:00 2022-01-14 08:39:00 Anesthesia Event [facility] 1.2840.114 350.1.13.10 4.2.7.2.686 [id number] [facility] 2022-01-14 00:00:00 2022-01-14 00:00:00 Orders Only Doctor Unassigned, House [facility] 1.2840.114 350.1.13.10 4.2.7.2.686 [id number] [facility] 2022-01-11 07:39:32 2022-01-11 23:59:00 Hospital Encounter Kayla Lutz [facility] 1.2840.114 350.1.13.10 4.2.7.2.686 [id number] [facility] 2022-01-11 07:39:18 2022-01-11 23:59:00 Outpatient R KAYLA LUTZ [facility] [id number] [facility] 2022-01-11 08:30:00 2022-01-11 08:45:00 Engineer Sergeant Visit Pob, Adc Lab Main Kayla Lutz [facility] 1..114 350.1.13.10 4.2.7.2.686 [id number] [facility] 2022-01-11 08:15:00 2022-01-11 08:30:00 Laboratory Only Only, Adc Test Kayal Lutz [facility] 1.20.114 350.1.13.10 4.2.7.2.686 [id number] [facility] 2022-01-11 08:15:00 2022-01-11 08:15:00 Outpatient R KAYLA LUTZ [facility] [id number] [facility] 2022-01-11 00:00:00 2022-01-11 00:00:00 Telephone Kayla Lutz [facility] 1..840.114 350.1.13.10 4.2.7.2.686 [id number] [facility] 2022-01-04 11:15:00 2022-01-04 11:30:00 Office Visit Colunga Bernice Lucrecia [facility] 1..840.114 350.1.13.10 4.2.7.2.686 [id number] [facility] 2022-01-04 11:15:00 2022-01-04 11:15:00 Outpatient R KEANU BERNICE [facility] [id number] [facility] 2022-01-04 11:15:00 2022-01-04 11:15:00 Outpatient R KEANU BERNICE [facility] [id number] [facility] 2022-01-04 00:00:00 2022-01-04 00:00:00 Prep For Surgery Kayla Lutz [facility] 1..840.114 350.1.13.10 4.2.7.2.686 [id number] [facility] 2021-12-20 10:00:00 2021-12-20 10:00:00 Outpatient R KAYLA LUTZ [facility] [id number] [facility] 2021-12-11 00:00:00 2021-12-11 00:00:00 Telephone Kayla Lutz [facility] 1.2.840.114 350.1.13.10 4.2.7.2.686 [id number] [facility] 2021-12-07 10:23:58 2021-12-07 23:59:00 Outpatient R BERNICE COLUNGA [facility] [id number] [facility] 2021-12-07 10:23:58 2021-12-07 23:59:00 Hospital Encounter Bernice Colunga [facility] 1..114 350.1.13.10 4.2.7.2.686 [id number] [facility] 2021-11-30 10:45:00 2021-11-30 11:13:44 Outpatient R BERNICE COLUNGA [facility] [id number] [facility] 2021-11-30 10:45:00 2021-11-30 11:13:44 Office Visit Bernice Colunga [facility]?NATY [facility] MED[facility] OFF[facility] BUILD[facility] 1.114 350.1.13.10 4.2.7.2.686 [id number] [facility] 2021-11-30 10:45:00 2021-11-30 11:13:44 Outpatient R KEANU [facility] [id number] [facility] 2021-11-28 00:00:00 2021-11-28 00:00:00 [facility]ILD[facility] 1.114 350.1.13.10 4.2.7.2.686 [id number] [facility] 2021-11-28 00:00:00 2021-11-28 00:00:00 Orders Only Doctor Unassigned, House [facility] 1.114 350.1.13.10 4.2.7.2.686 [id number] [facility] 2021-11-27 00:00:00 2021-11-27 00:00:00 Telephone Kayla Lutz COUNTS [facility]CLUDE 234 [facility] AT [facility] 1..114 350.1.13.10 4.2.7.2.686 [id number] 198 [id number] [facility] 2021-11-22 00:00:00 2021-11-22 00:00:00 Orders Only Doctor Unassigned, House [facility] 1.2840.114 350.1.13.10 4.2.7.2.686 [id number] [facility] 2021-11-21 00:00:00 2021-11-21 00:00:00 Telephone LutzKayla Ponce [facility] BUILD[facility] 1.20.114 350.1.13.10 4.2.7.2.686 [id number] [facility] 2021-11-21 00:00:00 2021-11-21 00:00:00 Telephone Joni Kayla Ponce [facility] MEDICAL OFFICE BUILDING 1.20.114 350.1.13.10 4.2.7.2.686 [id number] [facility] 2021-11-19 00:00:00 2021-11-19 00:00:00 Telephone [facility]a [facility] MEDICAL OFFICE BUILDING 1.2840.114 350.1.13.10 4.2.7.2.686 [id number] [facility] 2021-11-19 00:00:00 2021-11-19 00:00:00 Telephone Kayla Lutz [facility] MEDICAL OFFICE BUILDING 1.20.114 350.1.13.10 4.2.7.2.686 [id number] 198 [id number] [facility] 2021-11-12 00:00:00 2021-11-12 00:00:00 Telephone Joni Kayla Ponce [facility] MEDICAL OFFICE BUILDING 1.2840.114 350.1.13.10 4.2.7.2.686 [id number] [facility] 2021-10-29 00:00:00 2021-10-29 00:00:00 Telephone Kayla Lutz [facility] 1..840.114 350.1.13.10 4.2.7.2.686 [id number] [facility] 2021-10-26 00:00:00 2021-10-26 00:00:00 Telephone Kayla Lutz [facility] OFF[facility] BUILD[facility] 1..840.114 350.1.13.10 4.2.7.2.686 [id number] [facility] 2021-10-24 09:30:00 2021-10-24 10:20:40 Outpatient R KEANU [facility] [id number] [facility] 2021-10-24 09:30:00 2021-10-24 10:20:40 Office Visit Keanu [facility] MED[facility] OFFICE BUILDING 1..840.114 350.1.13.10 4.2.7.2.686 [id number] [facility] 2021-10-24 09:30:00 2021-10-24 10:20:40 Outpatient R KEANU [facility] [id number] [facility] 2021-10-24 09:30:00 2021-10-24 10:20:40 Office Visit Keanu [facility] OFF[facility] BUILD[facility] 1..840.114 350.1.13.10 4.2.7.2.686 [id number] [facility] 2021-10-19 00:00:00 2021-10-19 00:00:00 [facility] 1.2.840.114 350.1.13.10 4.2.7.2.686 [id number] [facility] 2021-10-18 00:00:00 2021-10-18 00:00:00 Telephone Keanu [facility] 1..840.114 350.1.13.10 4.2.7.2.686 [id number] [facility] 2021-10-12 14:00:00 2021-10-12 15:00:16 Outpatient RENÉE VILLARREAL HOWARD [facility] [id number] [facility] 2021-10-02 00:00:00 2021-10-02 00:00:00 Telephone Keanu [facility] OFF[facility] BUILD[facility] 1..840.114 350.1.13.10 4.2.7.2.686 [id number] 198 [id number] [facility] 2021-10-02 00:00:00 2021-10-02 00:00:00 Orders Only Doctor Unassigned, House [place] [address].2.840.114 350.1.13.10 4.2.7.2.686 [id number] [id number] [facility] 2021-09-27 00:00:00 2021-09-27 00:00:00 Orders Only Doctor Unassigned, House [place] [id number] 350.1.13.10 4.2.7.2.686 [id number] [facility] 2021-09-24 15:50:00 2021-09-24 23:59:00 Outpatient BERNICE REYES [facility] [id number] [facility] 2021-07-02 00:00:00 2021-07-02 00:00:00 (TEL) [facility] [id number] [facility] 2021-06-27 14:15:00 2021-06-27 14:15:00 Outpatient R BERNICE COLUNGA [facility] [id number] [facility] 2021-06-27 14:15:00 2021-06-27 14:15:00 Outpatient R BERNICE COLUNGA [facility] [id number] [facility] 2021-06-27 13:39:57 2021-06-27 13:54:57 Office Visit Keanu [facility] 1..840.114 350.1.13.10 4.2.7.2.686 [id number] [facility] 2021-06-26 15:45:00 2021-06-26 15:45:00 [facility] [id number] [facility] 2021-06-26 15:45:00 2021-06-26 15:45:00 Outpatient R BERNICE COLUNGA [facility] [id number] [facility] 2021-06-25 00:00:00 2021-06-25 00:00:00 Telephone Keanu [facility] 1..840.114 350.1.13.10 4.2.7.2.686 [id number] [facility] 2021-05-23 00:00:00 2021-05-23 00:00:00 Telephone Keanu [facility] Gregor?Naty paredes [facility] 1..840.114 350.1.13.10 4.2.7.2.686 [id number] [facility] 2021-05-22 13:00:00 2021-05-22 23:59:00 Hospital Encounter Keanu [facility] Gregor?Naty paredes [facility] 1..840.114 350.1.13.10 4.2.7.2.686 [id number] [facility] 2021-05-22 16:15:00 2021-05-22 14:56:21 Outpatient R COLUNGABERNICE [facility] [id number] [facility] 2021-05-22 16:15:00 2021-05-22 14:56:21 Outpatient R BERNICE COLUNGA [facility] [id number] [facility] 2021-05-22 12:47:56 2021-05-22 14:56:21 [facility]Naty pared[facility] 1..840.114 350.1.13.10 4.2.7.2.686 [id number] [facility] 2021-05-22 00:00:00 2021-05-22 00:00:00 Orders Only Doctor Unassigned, House [facility] 1.840.114 350.1.13.10 4.2.7.2.686 [id number] [facility] 2021-04-23 10:10:00 2021-04-23 10:10:00 [facility] [id number] [facility] 2021-04-23 10:00:06 2021-04-23 10:00:17 Imm[facility]Inj [facility] 1.840.114 350.1.13.10 4.2.7.2.686 [id number] [facility] 2021-04-02 14:40:00 2021-04-02 14:40:00 [facility] [id number] [facility] 2021-04-02 13:41:25 2021-04-02 13:41:44 Imm/Inj Visit NurseHailey Immuniztoo [facility] 1.840.114 350.1.13.10 4.2.7.2.686 [id number] [facility] 2021-01-26 00:00:00 2021-01-26 00:00:00 [place] Granados [facility] 1.2.840.114 350.1.13.58 9.2.7.2.686 [id number] 2021-01-26 00:00:00 2021-01-26 00:00:00 Lacey Granados [facility] 1.2.840.114 350.1.13.58 9.2.7.2.686 [id number] [facility] 2020-12-18 09:22:21 2020-12-18 12:11:17 Office Visit Jonas Barker [facility] 1 1.2.840.114 350.1.13.58 9.2.7.2.686 [id number] 2020-12-18 09:22:21 2020-12-18 12:11:17 Office Visit Jonas Barker [facility] 1 1.2.840.114 350.1.13.58 9.2.7.2.686 [id number] [facility] 2020-09-06 00:00:00 2020-09-06 00:00:00 (TEL) STLMLC STLMLC [id number] [facility] 2020-07-20 00:00:00 2020-07-20 00:00:00 (TEL) STLMLC STLMLC [id number] [facility] 2020-07-12 00:00:00 2020-07-12 00:00:00 (TEL) STLMLC STLMLC [id number] [facility] 2020-06-21 00:00:00 2020-06-21 00:00:00 Outpatient STLMLC STLMLC [id number] [facility] 2020-06-12 00:00:00 2020-06-12 00:00:00 Outpatient ST[facility] [id number] [facility] 2020-06-06 00:00:00 2020-06-06 00:00:00 Outpatient [facility] [id number] [facility] 2020-01-26 20:05:19 2020-01-26 21:04[facility] 1.2.840.114 350.1.13.10 4.2.7.2.686 [id number] [id number] 2020-01-26 20:05:19 2020-01-26 21:04:00 [facility] 1.2.840.114 350.1.13.10 4.2.7.2.686 [id number] [id number] [facility] 2020-01-26 00:00:00 2020-01-26 00:00:00 Orders Only Doctor Unassigned, House [facility] 1.2.840.114 350.1.13.10 4.2.7.2.686 [id number] 009 [id number] 2020-01-26 00:00:00 2020-01-26 00:00:00 Orders Only Doctor Unassigned, House [facility] 1.2.840.114 350.1.13.10 4.2.7.2.686 [id number] [id number] [facility] 2020-01-20 08:00:00 2020-01-20 08:00:00 Outpatient [facility] [id number] [facility] 2020-01-20 00:00:00 2020-01-20 00:00:00 Orders Only Doctor Unassigned, House [facility] 1.2.840.114 350.1.13.10 4.2.7.2.686 [id number] 009 [id number] 2020-01-20 00:00:00 2020-01-20 00:00:00 Orders Only Doctor Unassigned, House [facility] 1.2.840.114 350.1.13.10 4.2.7.2.686 [id number] [facility] Results Test Description Test Time Test Comments Results Result Co mments Source [facility] GLUCOSE (AUTOMATED)2023-08-30 13:51:48* Test Item Value Reference Range Interpretation Comme [facility] POCT GLU (test code = 2036696338) 105 mg/dL 70-110 Lab Interpretation (test cod e = 28399-8) [facility] Hospital[facility] Hem[facility] (A1C)2023-08-30 05:45:04* Test Item Value Reference Range Interpretation Comme [facility] HGB A1C (test code = 4548-4) 6.0 % 4.0-5.7 H SRIRAM (test code = SRIRAM) Reference RangesNormal: <5.7%Prediabetes: 5.7 - 6.4%Diabetes: > 6.5% Lab Interpretation (test code = 85927-3) Abnormal [facility] GLUCOSE (AUTOMATED)2023-08-30 02:23:04* Test Item Value Reference Range Interpretation Comme [facility] POCT GLU (test code = 1158721619) 101 mg/dL 70-110 Lab Interpretation (test cod e = 30327-4) Normal [facility] ABDOMEN PELVIS W [id number] 00:26:53PROCEDURE:CT ABDOMEN PELVIS W CONTRAST ORDERING PHYSICIAN: MARYLOU DRIVER HISTORY: ?Abdominal painTECHNIQUE: Helical CT of the abdomen and pelvis was performed usingnon-ionic intravenous contrast. CT scan was performed according to ALARA (as low as reasonably achievable)principle. TECHNICAL QUALIT Y: Adequate COMPARISON: ?CT abdomen/pelvis W FINDINGS CT ABDOMEN/PELVIS: Lower thorax: ?The lung bases are clear. Liver: The liver is normal in size. There is no intrahepatic mass. Biliary tree:The patient is post cholecystectomy. There is no biliaryductal dilatation. Spleen: The spleen is normal in size. Pancreas: ?The pancreas is normal in size and enhances homogenously. Adrenal glands: ?The adrenal glands are normal in size and shape. Kidneys: ?There are bilateral symmetric nephrogramswithout hydronephrosis. Lymph nodes: Abdomen: There is no abdominal adenopathy. Pelvis: There is nopelvic adenopathy. Vasculature: ?The aorta is normal caliber. Peritoneum/mesentery/omentum: ?There is no free fluid or free air. GI tract: ?There is no bowel obstruction.The appendix is within normallimits. Pelvic urogenital structures:There is residual contrast in the bladder. Theuterus is present. There is no adnexal mass Body wall: ?There are no aggressive osseous lesions. Vazquez: (S/I) = seriesnumber / image numberUnMethodist Specialty and Transplant HospitalCT CHEST PULMONARY ANGIOGRAM 2023-08-29 19:22:01CT SCAN OF THE CHEST WITH CONTRAST 08/29/2023 1:00 PM TECHNIQUE: Multidetector helical CT scan of the chest was performedfollowing the intravenous administration of contrast. Coronal and sagittalreformats as well axial MIPs imaging were acquired. CLINICAL INFORMATION: PE suspected, intermediate prob, positive D-dimer COMPARISON: Chest x-ray obtained on the same date FINDINGS: CARDIOVASCULAR: The enhancement of the pulmonary artery is adequate. Nopulmonary emboli to the level of subsegmental pulmonary arteries.Main pulmonary artery is normal in caliber. The thoracic aorta is normal incaliber.The cardiac size is normal. ?No pericardial effusion. There is nosignificant coronary artery calcification. LYMPH NODES: No thoracic adenopathy. MEDIASTINUM/ LOWER NECK: ?No mediastinal mass is seen.. No actionablethyroid nodule is present. BRONCHOPULMONARY/PLEURA: The central airways are patent. Patchy groundglass and linear opacities atthe dependent portion of the lungs likely dependent and subsegmentalatelectasis. Low lung volumes. Slight mosaic appearance to the lungs mayrepresent an element of very mild air trapping. No suspicious nodules..No pleural effusion. No pneumothorax. UPPER ABDOMEN: Tiny hiatal hernia. Gallbladder is surgically absent.Otherwise the visualized upper abdomen is unremarkable. BONES/ CHEST WALL: No aggressive or acute abnormalities.[facility] HospitalTRANUPAM [id number] 17:47:43* Test Item Value Reference Range Interpretation Comme nts TROPONIN I (test code = 0239684389) 0.001 ng/mL <=0.034 SRIRAM (test code = SRIRAM) Reference (Normal) [...] patient's use of biotin. Lab Interpretation (test code = 14396-2) Normal [facility] HospitalMagnesium2024-01-26 17:36:59* Test Item Value Reference Range Interpretation Comme nts MAGNESIUM (test code = 1779285485) 1.7 mg/dL 1.7-2.4 Lab Interpretation (test cod e = 47572-7) Normal [facility] HospitalCOMP. METABOLIC PANEL (53762)2023-08-29 17:36:38* Test Item Value Reference Range Interpretation Comme nts NA (test code = 4643108403) 139 mmol/L 135-145 K (test code = 4550429375) 4.1 mmol/L 3.5-5.0 CL (test code = 5558581031) 107 mmol/L 98-108 CO2 TOTAL (test code = 6998495978) 25 mmol/L 23-31 AGAP (test code = 7064992981) 7 2-16 BUN (test code = 1574253862) 13 mg/dL 7-23 GLUCOSE (test code = 7018925668) 114 mg/dL 70-110 H CREATININE (test code = 0790218294) 0.75 mg/dL 0.50-1.04 TOTAL BILI (test code = 9839722012) 0.6 mg/dL 0.1-1.1 CALCIUM (test code = 4981738895) 9.6 mg/dL 8.6-10.6 T PROTEIN (test code = 0002676861) 7.7 g/dL 6.3-8.2 ALBUMIN (test code = 9044365536) 4.1 g/dL 3.5-5.0 ALK PHOS (test code = 7172182924) 121 U/L 34-122 ALTv (test code = 1742-6) 16 U/L 5-35 AST(SGOT) (test code = 4403335931) 24 U/L 13-40 eGFR (test code = 40452-7) 94.7 mL/min/1.73m2 CKD-EPI eGFR (2020). Assuming creatinine has been stable day-to-day for at least three months, the eGFR indicates Category G1 (>= 90 mL/min/1.73 m2) Lab Interpretation (test code = 27718-1) Abnormal [facility] HospitalLIPASE2024-01-26 17:36:22* Test Item Value Reference Range Interpretation Comme nts LIPASE (test code = 5728043200) 82 U/L 0-220 Lab Interpretation (test cod e = 26076-1) Normal [facility] HospitalD-[id number] 17:34:40* Test Item Value Reference Range Interpretation Comments D-DIMER (test code = 6589906136) 0.96 See_Comment H [Automated message] The system which generated this result transmitted reference range: <0.41 ?g/mL (FEU). The reference range was not used to interpret this result as normal/abnormal. SRIRAM (test code = SRIRAM) This test may be used in conjunction with a clinical pretest probability (PTP) assessment model to exclude venous thromboembolism (VTE) in patients suspected of deep venous thrombosis (DVT) and pulmonary embolism (PE) A D-Dimer value less than 0.50 ?g/ml (FEU) has a negative predicative value of 96 to 100% (95% CI)and 97 to 100% (95% CI) as an aid in the diagnosis of deep vein thrombosis (DVT) and pulmonary embolism when there is low or moderate pretest probability of PE or DVT. D-Dimer values are expressed in initial fibrinogen equivalent units (FEU)" The assay results should be used with other information, including the clinical context, in forming a diagnosis. Lab Interpretation (test code = 14146-2) Abnormal [facility] HospitalXR CHEST 1 [id number] 17:17:59EXAM: XR CHEST 1 08/29/2023 10:59 AM HISTORY: 53 years-old Female with chest pain . TECHNIQUE: Portable AP view of the chest. COMPARISON: None. FINDINGS: Lines and tubes: None. Cardiomediastinal: The cardiomediastinal silhouette is normal in sizeaccounting for depth of inspiration. Lungs and pleura: Low lung volumes. Noacute infiltrate or effusion. Included osseous structures show no acute abnor mality.[facility] WITH [id number] 17:17:19* Test Item Value Reference Range Interpretation Comme nts WBC (test code = 6690-2) 6.09 See_Comment [Automated messa ge] The system which generated this result transmitted reference range: 4.30 - 11.10 10*3/?L. The reference range was not used to interpret this result as normal/abnormal. RBC (test code = 789-8) 3.87 See_Comment L [Automated messa ge] The system which generated this result transmitted reference range: 3.93 - 5.25 10*6/?L. The reference range was not used to interpret this result as normal/abnormal. HGB (test code = 718-7) 9.7 g/dL 11.6-15.0 L HCT (test code = 4544-3) 32.4 % 35.7-45.2 L MCV (test code = 787-2) 83.7 fL 80.6-95.5 MCH (test code = 785-6) 25.1 pg 25.9-32.8 L MCHC (test code = 786-4) 29.9 g/dL 31.6-35.1 L RDW-SD (test code = 39642-4) 52.5 fL 39.0-49.9 H RDW-CV (test code = 788-0) 17.5 % 12.0-15.5 H PLT (test code = 777-3) 344 See_Comment [Automated messa ge] The system which generated this result transmitted reference range: 166 - 358 10*3/?L. The reference range was not used to interpret this result as normal/abnormal. MPV (test code = 09946-9) 10.0 fL 9.5-12.9 NRBC/100 WBC (test code = 7410172264) 0.0 See_Comment [Automated [employer]] The system which generated this result transmitted reference range: 0.0 - 10.0 /100 WBCs. The reference range was not used to interpret this result as normal/abnormal. NRBC x10^3 (test code = 2962486927) See_Comment [Automated messa ge] The system which generated this result transmitted reference range: 10*3/?L. The reference range was not used to interpret this result as normal/abnormal. GRAN MAT (NEUT) % (test code = 770-8) 68.0 % IMM GRAN % (test code = 2656025405) 0.20 % LYMPH % (test code = 736-9) 23.8 % MONO % (test code = 5905-5) 6.1 % EOS % (test code = 713-8) 1.6 % BASO % (test code = 706-2) 0.3 % GRAN MAT x10^3(ANC) (test code = 2093557025) 4.14 10*3/uL 1.88-7.09 IMM GRAN x10^3 (test code = 5945227705) 0.00-0.06 LYMPH x10^3 (test code = 731-0) 1.45 10*3/uL 1.32-3.29 MONO x10^3 (test code = 742-7) 0.37 10*3/uL 0.33-0.92 EOS x10^3 (test code = 711-2) 0.10 10*3/uL 0.03-0.39 BASO x10^3 (test code = 704-7) 0.01-0.07 Lab Interpretation (test code = 31521-3) Abnormal [facility] BranchType and Screen - This is a pre-surgical type and screen. ONCE [id number] 13:38:39* Test Item Value Reference Range Interpretation Comme nts ABO & RH (test code = 20) O Positive Performed at [facility] Laboratory Services - [facility] Blood [address] [place], [place] [id number] Free: [phone] No. [id number] IAT (test code = 1185) Negative Performed at [facility] Laboratory Services - [facility] Blood [address] [place], [place] [address]Toll Free: [phone] No. [id number] [facility] HospitalType and Screen - This is a pre-surgical type and screen. ONCE [id number] 13:38:39* Test Item Value Reference Range Interpretation Comme nts ABO & RH (test code = 20) O Positive Performed at [facility] Laboratory [facility] - [facility] Blood [address] [place] [address] Free: [phone] No. [id number] IAT (test code = 1185) Negative Performed at [facility] Laboratory [facility] Blood [place] [address]Toll Free: [phone] No. [id number] [facility] GLUCOSE (AUTOMATED)2022-09-23 12:53:02* Test Item Value Reference Range Interpretation Comme nts POCT GLU (test code = 0257870443) 105 mg/dL 70-110 Lab Interpretation (test cod e = 46236-8) Normal [facility] GLUCOSE (AUTOMATED)2022-09-23 12:53:02* Test Item Value Reference Range Interpretation Comme nts POCT GLU (test code = 9129714767) 105 mg/dL 70-110 Lab Interpretation (test cod e = 11382-0) Normal [facility] HospitalTROPONIN [id number] 17:00:16* Test Item Value Reference Range Interpretation Comme nts TROPONIN I (test code = 4446619245) 0.003 ng/mL <=0.034 SRIRAM (test code = SRIRAM) Reference (Normal) [...] patient's use of biotin. Lab Interpretation (test code = 81093-3) Normal [facility] GLUCOSE (AUTOMATED)2022-06-12 18:17:12* Test Item Value Reference Range Interpretation Comme nts POCT GLU (test code = 2866236128) 161 mg/dL 70-110 H Lab Interpretation (test cod e = 09358-6) Abnormal [facility] GLUCOSE (AUTOMATED)2022-06-12 08:00:25* Test Item Value Reference Range Interpretation Comme nts POCT GLU (test code = 7147031079) 122 mg/dL 70-110 H Lab Interpretation (test cod e = 25192-8) Abnormal [facility] GLUCOSE (AUTOMATED)2022-06-12 01:58:54* Test Item Value Reference Range Interpretation Comme nts POCT GLU (test code = 7930585383) 124 mg/dL 70-110 H Lab Interpretation (test cod e = 20511-7) Abnormal [facility] GLUCOSE (AUTOMATED)2022-06-11 22:59:46* Test Item Value Reference Range Interpretation Comme nts POCT GLU (test code = 0559918377) 115 mg/dL 70-110 H Lab Interpretation (test cod e = 78639-0) Abnormal [facility] GLUCOSE (AUTOMATED)2022-06-11 22:59:46* Test Item Value Reference Range Interpretation Comme nts POCT GLU (test code = 8311716819) 104 mg/dL 70-110 Lab Interpretation (test cod e = 54756-4) Normal [facility] GLUCOSE (AUTOMATED)2022-06-11 14:11:49* Test Item Value Reference Range Interpretation Comme nts POCT GLU (test code = 6527217048) 91 mg/dL 70-110 Lab Interpretation (test cod e = 55811-8) Normal [facility] HospitalIRON [id number] 09:07:50* Test Item Value Reference Range Interpretation Comme nts IRON (test code = 5469727668) 39 ug/dL 50-160 L TIBC (test code = 7247485559) 346 ug/dL 250-410 % FE SAT (test code = 3703727355) 11 % 20-50 L Lab Interpretation (test cod e = 00925-0) Abnormal [facility] HospitalFERRITIN [id number] 08:27:06* Test Item Value Reference Range Interpretation Comme nts FERRITIN (test code = 1708220492) 7.5 ng/mL 11.0-264.0 L SRIRAM (test code = SRIRAM) Biotin has been reported to cause a negative bias, interpret results relative to patient's use of biotin. Lab Interpretation (test code = 93071-5) Abnormal [facility] HospitalN-TERMINAL [id number] 08:01:40* Test Item Value Reference Range Interpretation Comme nts NT-proBNP (test code = 8506049158) 39 pg/mL See_Comment [Automated message] The system which generated this result transmitted reference range: <=125. The reference range was not used to interpret this result as normal/abnormal. SRIRAM (test code = SRIRAM) Biotin has been reported to cause a negative bias, interpret results relative to patient's use of biotin. Lab Interpretation (test code = 37441-7) Normal [facility] HospitalPOCT GLUCOSE (AUTOMATED)2022-06-11 07:59:15* Test Item Value Reference Range Interpretation Comme nts POCT GLU (test code = 6236663924) 141 mg/dL 70-110 H Lab Interpretation (test cod e = 62120-2) Abnormal [facility] HospitalMAGNESIUM2022-11-08 07:59:15* Test Item Value Reference Range Interpretation Comme nts MAGNESIUM (test code = 2158539118) 1.6 mg/dL 1.7-2.4 L Lab Interpretation (test cod e = 75704-4) Abnormal [facility] HospitalPHOSPHORUS2022-11-08 07:59:10* Test Item Value Reference Range Interpretation Comme nts PHOSPHORUS (test code = 0388960136) 2.6 mg/dL 2.5-5.0 Lab Interpretation (test cod e = 66236-7) Normal [facility] HospitalURIC [id number] 07:59:05* Test Item Value Reference Range Interpretation Comme nts URIC ACID (test code = 3277353849) 3.0 mg/dL 2.9-6.0 Lab Interpretation (test cod e = 02686-4) Normal [facility] (NA, K, CL, CO2, GLUCOSE, BUN, CREATININE, CA)2022-06-10 18:34:39* Test Item Value Reference Range Interpretation Comme nts NA (test code = 3178965240) 139 mmol/L 135-145 K (test code = 5259737457) 4.2 mmol/L 3.5-5.0 CL (test code = 1836318941) 105 mmol/L 98-108 CO2 TOTAL (test code = 8044249471) 28 mmol/L 23-31 AGAP (test code = 3131662734) 2-16 BUN (test code = 6904039271) 15 mg/dL 7-23 GLUCOSE (test code = 2670806760) 106 mg/dL 70-110 CREATININE (test code = 8092421745) 0.75 mg/dL 0.50-1.04 CALCIUM (test code = 0883167892) 9.0 mg/dL 8.6-10.6 eGFR (test code = 3264126470) mL/min/1.73m2 SRIRAM (test code = SRIRAM) Association of [...] or urine or abnormalities in imaging tests). [facility] HospitalHEPATIC FUNCTION PANEL (76375) (ALB,T.PRO,BILI T,BU/BC,ALT,AST,ALK PHOS)2022-06-10 18:34:39* Test Item Value Reference Range Interpretation Comme nts TOTAL BILI (test code = 0692626898) 0.4 mg/dL 0.1-1.1 BILI UNCON (test code = 6499615889) 0.2 mg/dL 0.1-1.1 BILI CONJ (test code = 0352117861) 0.0 mg/dL 0.0-0.3 T PROTEIN (test code = 5927486044) 6.9 g/dL 6.3-8.2 ALBUMIN (test code = 2748947645) 4.0 g/dL 3.5-5.0 ALK PHOS (test code = 6138566974) 139 U/L 34-122 H ALTv (test code = 1742-6) 23 U/L 5-35 AST(SGOT) (test code = 2948636732) 21 U/L 13-40 Lab Interpretation (test cod e = 27096-6) Abnormal [facility] HospitalLIPASE2022-11-07 18:34:39* Test Item Value Reference Range Interpretation Comme nts LIPASE (test code = 4311655477) 108 U/L 0-220 Lab Interpretation (test cod e = 42282-9) Normal [facility] HospitalCB WITH [id number] 18:27:20* Test Item Value Reference Range Interpretation Comme nts WBC (test code = 6690-2) See_Comment [Automated [employer]] The system which generated this result transmitted reference range: 4.30 - 11.10 10*3/?L. The reference range was not used to interpret this result as normal/abnormal. RBC (test code = 789-8) See_Comment [Automated [employer]] The system which generated this result transmitted reference range: 3.93 - 5.25 10*6/?L. The reference range was not used to interpret this result as normal/abnormal. HGB (test code = 718-7) 11.7 g/dL 11.6-15.0 HCT (test code = 4544-3) 36.8 % 35.7-45.2 MCV (test code = 787-2) 87.6 fL 80.6-95.5 MCH (test code = 785-6) 27.9 pg 25.9-32.8 MCHC (test code = 786-4) 31.8 g/dL 31.6-35.1 RDW-SD (test code = 64796-3) 48.3 fL 39.0-49.9 RDW-CV (test code = 788-0) 15.4 % 12.0-15.5 PLT (test code = 777-3) See_Comment [Automated messa ge] The system which generated this result transmitted reference range: 166 - 358 10*3/?L. The reference range was not used to interpret this result as normal/abnormal. MPV (test code = 64200-9) 10.4 fL 9.5-12.9 NRBC/100 WBC (test code = 8551298168) See_Comment [Automated me ssage] The system which generated this result transmitted reference range: 0.0 - 10.0 /100 WBCs. The reference range was not used to interpret this result as normal/abnormal. NRBC x10^3 (test code = 6924362792) See_Comment [Automated me ssage] The system which generated this result transmitted reference range: 10*3/?L. The reference range was not used to interpret this result as normal/abnormal. GRAN MAT (NEUT) % (test code = 770-8) 62.1 % IMM GRAN % (test code = 7653866279) 0.50 % LYMPH % (test code = 736-9) 29.1 % MONO % (test code = 5905-5) 7.3 % EOS % (test code = 713-8) 0.6 % BASO % (test code = 706-2) 0.4 % GRAN MAT x10^3(ANC) (test code = 1851821613) 5.30 10*3/uL 1.88-7.09 IMM GRAN x10^3 (test code = 5064853342) 0.04 10*3/uL 0.00-0.06 LYMPH x10^3 (test code = 731-0) 2.48 10*3/uL 1.32-3.29 MONO x10^3 (test code = 742-7) 0.62 10*3/uL 0.33-0.92 EOS x10^3 (test code = 711-2) 0.05 10*3/uL 0.03-0.39 BASO x10^3 (test code = 704-7) 0.03 10*3/uL 0.01-0.07 [facility] Consult Notes Date/Time Note Provider Source 2023-08-30 13:19:15 [id number] [id number]:19:15A ssociated Order(s): CONSULT [facility]OLOGY [facility] Cardiology ConsultPCP: Kenya EvansDate of Service: 4CHIEF COMPLAINT/reason for consult: Chest painHISTORY OF PRESENT ILLNESSThis is a 53 years old female with past med history of type 2 diabetes and morbid obesity. She came to [facility] for chest pain. It is left-sided chest pressure, not exertional, without radiation, associated with dyspnea, nausea and vomiting. It lasted a few hours. No aggravating or relieving factors. EKG showed no acute changes. Troponin x [address] scan of the chest showed no coronary artery calcification.PAST MEDICAL HISTORYPast Medical History:Diagnosis DateAllergic rhinitisArthritisBilateral knee pain 10/11/2015Diabetes mellitusPast Surgical History:Procedure Laterality DateINJECTION THERAPEUTIC AGENT LOWER EXTREMITY (SHX) Left 01/14/2022urgeon: Kayla Lutz MD; [facility] SURGERYright shoulderMAJOR JOINT INJECTION Bilateral 09/23/2022Surgeon: Kayla Lutz MD; [facility] LIGATIONFamily HistoryProblem Relation Age of OnsetNo Significant Medical Problems MotherNo Significant Medical Problems FatherALLERGIESAllergiesAllergen ReactionsCodeine Nausea and/or VomitingMEDICATIONSNo current facility-administered medications on file prior to encounter.Current Outpatient Medications on File Prior to EncounterMedication Sig Dispense Refillsemaglutide (OZEMPIC) 1 mg/dose (4 mg/3 mL) PnIj inject 1.25 mg under the skin weekly.cyclobenzaprine 10 mg tablet Take 1 tablet by mouth in the morning and 1 tablet in the evening.gabapentin 100 mg capsule Take 8 capsules by mouth in the morning and 8 capsules at noon and 8 capsules in the evening.lidocaine-prilocaine 2.5-2.5 % cream APPLY TO AFFECTED AREA EVERY DAY NEEDEDamitriptyline 150 mg tablet amitriptyline 150 mg tabletTake 1 tablet every day by oral route for 30 days.celecoxib 200 mg capsule Take 1 capsule by mouth in the morning and 1 capsule in the evening.loratadine 10 mg tablet Take 1 tablet by mouth in the morning. 3SOCIAL HISTORYSocial HistorySocioeconomic HistoryMarital status: MarriedNumber of children: 4Highest education level: Some college, no degreeOccupational HistoryOccupation: disabledTobacco UseSmoking status: NeverSmokeless tobacco: NeverSubstance and Sexual ActivityAlcohol use: NoDrug use: NoSexual activity: YesPartners: MaleBirth control/protection: SurgicalSocial History NarrativeMarried, 4 childrenCleans housesSocial Determinants of HealthFood Insecurity: No Food Insecurity (06/13/2022)Hunger Vital SignWorried About Running Out of Food in the Last Year: Never trueRan Out of Food in the Last Year: Never trueTransportation Needs: No Transportation Needs (06/13/2022)PRAPARE - TransportationLack of Transportation (Medical): NoLack of Transportation (Non-Medical): NoREVIEW OF SYSTEMSAt least 10 systems reviewed, negative except as mentioned in HPIPHYSICAL EXAMINATIONVitals:08/29/23 2311 08/30/23 0306 08/30/23 0713 08/30/23 1141BP: 125/64 105/57 115/63 129/73BP Location: Right armPatient Position: SupinePulse: 79 100 87 93Resp: 18 18 18 18Temp: 36.2 ?C (97.1 ?F) 36.1 ?C (97 ?F) 36.6 ?C (97.8 ?F) 36.7 ?C (98 ?F)TempSrc: Temporal ArterySpO2: 100% 96% 93% 97%Weight:Height:Constitutional: alert and oriented x 3 (person, place and date/time); no apparent distress, obeseENT: normocephalic atraumatic, supple, no lymphadenopathy, no bruits, no JVDLungs: clear to auscultation bilaterallyCardiovascular: S1, S2 normal, regular; no murmurs, rubs or gallopsGI: soft; non-tender; non-distended; normoactive bowel soundsGU: not examinedMusculoskeletal: Extremities: no clubbing, cyanosis, or edemaSkin: no rashesNeuro: no focal deficitsLABS - reviewed pertinent labs as below:CBC BMP PT/INRWBC (10*3/?L)Date Value08/29/2023 6.09NA (mmol/L)Date Value08/29/2023 139No results found for: "PT"PLT (10*3/?L)Date Value08/29/2023 344K (mmol/L)Date Value08/29/2023 4.1INR (no units)Date Value06/10/2022 1.0HGB (g/dL)Date Value08/29/2023 9.7 (L)BUN (mg/dL)Date Value08/29/2023 13HCT (%)Date Value08/29/2023 32.4 (L)CREATININE (mg/dL)Date Value08/29/2023 0.75LIPID PROFILEGLUCOSE (mg/dL)Date Value08/29/2023 114 (H)No results found for: "CHOL"TSH No results found for: "LDL"No results found for: "TSH" CARDIAC ENZYMES No results found for: "HDL"CK (U/L)Date Value06/11/2022 61No results found for: "TRIG"LFTs CK-MB (ng/mL)Date Value01/30/2015 0.64AST(SGOT) (U/L)Date Value08/29/2023 24TROPONIN I (ng/mL)Date Value08/30/2023 0.000ALTv (U/L)Date Value08/29/2023 16No results found for: "BNP"IMAGING - reviewed, pertinent results as below: Chest b-jnb-cklogCQC:Normal sinus rhythm, nonspecific T wave abnormalityASSESSMENT/PLANPrincipal Problem:Chest pain, unspecified typeActive Problems:Other iron deficiency anemiaMorbid obesity with body mass index of 40.0-49.9Abnormal nuclear cardiac imaging testChest pain-atypical chest pain. No acute EKG changes. Myocardial infarction has been ruled out by negative troponin. Her nuclear stress test from outside facility in December 2022 showed a small apical ischemia. Echocardiogram showed normal ejection fraction and wall motion. CT scan showed no coronary artery calcification. I recommend outpatient CT coronary angiography to assess CAD.Anemia-stable hemoglobin. Defer to primary team.Abnormal nuclear stress test-it is possible artifact versus ischemia. Recommend outpatient CT coronary angiography.Morbid obesity-recommend diet, exercise and weight loss.Thank you for allowing us to participate in the care of your patient. Please feel free to contact us for any questions or if we can be of further assistance.Bree Cervantes MD, FAC, FASEAssociate ProfessorDivision of Cardiovascular MedicineNacogdoches Memorial Hospital 323[address]-9Lgjlaje wtumYQ3871-23-74P17:24:23Consult noteTXT1.2.840.495055.1.13.104.2.7.2.02126 9|[id number] for patient rlha97289-0Sremzwy noteLNNARRATIVEFormatted C-CDA narrative textUTLOV[facility] - [address] Yj[id number] HEUHYRFLASNDLHGS9091-19-92S60:24:231.2.840 .571207.1.72.3.15|1.2.840.197893.1.13.104. 2.7.2.727879_[id number] [facility] - Health History and Physical Notes Date/Time Note Provider Source 2023-08-29 20:24:02 RSWTN+8v5nNQn0Ab2Lq9xlZ4q8I7OTrxE41jjZ0 90TGiPd1o9e3pDcO8RwFG18Jc3407-55-10R79: 24:02 MEDICINE MEGATN ADMIT H&PDate of Service: 4CHIEF COMPLAINT: chest painSubjectiveHistory of Present Bfwtmvz16 yo female with pmh of allergic rhinitis, DM who presents to the ED secondary to chest pain that started about morning. She describes her pain as left sided chest pain. Associated symptoms: dizziness, shortness of breath, and nausea and vomiting. Appears the pain in reproducible with palpitation or movement.ROS: +headache,PAST MEDICAL HISTORYPast Medical History:Diagnosis DateAllergic rhinitisArthritisBilateral knee pain 10/11/2015Diabetes mellitusPast Surgical History:Procedure Laterality DateINJECTION THERAPEUTIC AGENT LOWER EXTREMITY (SHX) Left 01/14/2022urgeon: Kayla Lutz MD; [facility]ERYright shoulderMAJOR JOINT INJECTION Bilateral 09/23/2022Surgeon: Kayla Lutz MD; [facility]UBAL LIGATIONFamily HistoryProblem Relation Age of OnsetNo Significant Medical Problems MotherNo Significant Medical Problems FatherALLERGIESAllergiesAllergen ReactionsCodeine Nausea and/or VomitingMEDICATIONSNo current facility-administered medications on file prior to encounter.Current Outpatient Medications on File Prior to EncounterMedication Sig Dispense Refillsemaglutide (OZEMPIC) 1 mg/dose (4 mg/3 mL) PnIj inject 1.25 mg under the skin weekly.cyclobenzaprine 10 mg tablet Take 1 tablet by mouth in the morning and 1 tablet in the evening.gabapentin 100 mg capsule Take 8 capsules by mouth in the morning and 8 capsules at noon and 8 capsules in the evening.lidocaine-prilocaine 2.5-2.5 % cream APPLY TO AFFECTED AREA EVERY DAY NEEDEDamitriptyline 150 mg tablet amitriptyline 150 mg tabletTake 1 tablet every day by oral route for 30 days.celecoxib 200 mg capsule Take 1 capsule by mouth in the morning and 1 capsule in the evening.loratadine 10 mg tablet Take 1 tablet by mouth in the morning. 3I attest that the foregoing medication list in the medical record is true, accurate and complete to the best of my knowledge.SOCIAL HISTORYSocial HistorySocioeconomic HistoryMarital status: MarriedNumber of children: 4Highest education level: Some college, no degreeOccupational HistoryOccupation: disabledTobacco UseSmoking status: NeverSmokeless tobacco: NeverSubstance and Sexual ActivityAlcohol use: NoDrug use: NoSexual activity: YesPartners: MaleBirth control/protection: SurgicalSocial History NarrativeMarried, 4 childrenCleans housesSocial Determinants of HealthFood Insecurity: No Food Insecurity (06/13/2022)Hunger Vital SignWorried About Running Out of Food in the Last Year: Never trueRan Out of Food in the Last Year: Never trueTransportation Needs: No Transportation Needs (06/13/2022)PRAPARE - TransportationLack of Transportation (Medical): NoLack of Transportation (Non-Medical): NoREVIEW OF SYSTEMSReview of SystemsConstitutional: Negative.HENT: Negative.Eyes: Negative.Respiratory: Positive for shortness of breath. Negative for apnea, cough, choking, chest tightness, wheezing and stridor.Breasts: Negative.Cardiovascular: Positive for chest pain. Negative for palpitations and leg swelling.Gastrointestinal: Positive for nausea. Negative for abdominal distention, abdominal pain, anal bleeding, blood in stool, constipation, diarrhea, rectal pain and vomiting.Genitourinary: Negative.Musculoskeletal: Negative.Skin: Negative.Neurological: Positive for dizziness and headaches. Negative for tremors, seizures, syncope, facial asymmetry, speech difficulty, weakness, light-headedness and numbness.Psychiatric/Behavioral: Negative.Endocrine: Endocrine negativeObjectivePHYSICAL EXAMINATIONVitals:08/29/23 1731 08/29/23 1800 08/29/23 1929 08/29/23 1953BP: 120/52 121/72 127/69Pulse: 72 77Resp: 17 14 18Temp: 36.9 ?C (98.5 ?F)TempSrc:SpO2: 100% 100% 99%Weight: 102.1 kg (225 lb) 103.4 kg (228 lb)Height: 1.575 m (5' 2")Physical ExamVitals and nursing note reviewed.Constitutional:General: She is not in acute distress.Appearance: Normal appearance. She is obese. She is not ill-appearing, toxic-appearing or diaphoretic.HENT:Head: Normocephalic and atraumatic.Right Ear: External ear normal.Left Ear: External ear normal.Nose: Nose normal. No congestion.Mouth/Throat:Mouth: Mucous membranes are moist.Pharynx: No oropharyngeal exudate or posterior oropharyngeal erythema.Eyes:General: No scleral icterus.Extraocular Movements: Extraocular movements intact.Conjunctiva/sclera: Conjunctivae normal.Pupils: Pupils are equal, round, and reactive to light.Cardiovascular:Rate and Rhythm: Normal rate and regular rhythm.Heart sounds: No murmur heard.No friction rub. No gallop.Pulmonary:Effort: Pulmonary effort is normal. No respiratory distress.Breath sounds: Normal breath sounds. No wheezing or rales.Chest:Chest wall: Tenderness present.Abdominal:General: Abdomen is flat. Bowel sounds are normal. There is no distension.Palpations: Abdomen is soft.Tenderness: There is no abdominal tenderness. There is no guarding.Musculoskeletal:General: Normal range of motion.Cervical back: Normal range of motion.Skin:General: Skin is warm and dry.Neurological:Mental Status: She is alert.Psychiatric:Mood and Affect: Mood normal.Behavior: Behavior normal.Thought Content: Thought content normal.Judgment: Judgment normal.LABS/IMAGING - reviewedEXAM: XR CHEST 1 VW 08/29/2023 10:59 AMHISTORY: 53 years-old Female with chest pain .TECHNIQUE: Portable AP view of the chest.COMPARISON: None.FINDINGS:Lines and tubes: None.Cardiomediastinal: The cardiomediastinal silhouette is normal in sizeaccounting for depth of inspiration. Lungs and pleura: Low lung volumes. Noacute infiltrate or effusion.Included osseous structures show no acute abnormality.IMPRESSIONNo acute cardiopulmonary abnormality. CT SCAN OF THE CHEST WITH CONTRAST 08/29/2023 1:00 PMTECHNIQUE: Multidetector helical CT scan of the chest was performedfollowing the intravenous administration of contrast. Coronal and sagittalreformats as well axial MIPs imaging were acquired.CLINICAL INFORMATION: PE suspected, intermediate prob, positive D-dimerCOMPARISON: Chest x-ray obtained on the same dateFINDINGS:CARDIOVASCULAR: The enhancement of the pulmonary artery is adequate. Nopulmonary emboli to the level of subsegmental pulmonary arteries.Main pulmonary artery is normal in caliber. The thoracic aorta is normal incaliber.The cardiac size is normal. No pericardial effusion. There is nosignificant coronary artery calcification.LYMPH NODES: No thoracic adenopathy.MEDIASTINUM/ LOWER NECK: No mediastinal mass is seen.. No actionablethyroid nodule is present.BRONCHOPULMONARY/PLEURA:The central airways are patent. Patchy groundglass and linear opacities atthe dependent portion of the lungs likely dependent and subsegmentalatelectasis. Low lung volumes. Slight mosaic appearance to the lungs mayrepresent an element of very mild air trapping. No suspicious nodules..No pleural effusion. No pneumothorax.UPPER ABDOMEN: Tiny hiatal hernia. Gallbladder is surgically absent.Otherwise the visualized upper abdomen is unremarkable.BONES/ CHEST WALL: No aggressive or acute abnormalities.IMPRESSIONNo CT evidence of pulmonary embolus. PROC EDURE:CT ABDOMEN PELVIS W CONTRASTORDERING PHYSICIAN: MARYLOU MARTINVERHISTORY: Abdominal painTECHNIQUE: Helical CT of the abdomen and pelvis was performed usingnon-ionic intravenous contrast.CT scan was performed according to ALARA (as low as reasonably achievable)principle.TECHNICAL QUALITY: AdequateCOMPARISON: CT abdomen/pelvis WFINDINGS CT ABDOMEN/PELVIS:Lower thorax: The lung bases are clear.Liver: The liver is normal in size. There is no intrahepatic mass.Biliary tree: The patient is post cholecystectomy. There is no biliaryductal dilatation.Spleen: The spleen is normal in size.Pancreas: The pancreas is normal in size and enhances homogenously.Adrenal glands: The adrenal glands are normal in size and shape.Kidneys: There are bilateral symmetric nephrograms without hydronephrosis.Lymph nodes:Abdomen: There is no abdominal adenopathy.Pelvis: There is no pelvic adenopathy.Vasculature: The aorta is normal caliber.Peritoneum/mesentery/omentum: There is no free fluid or free air.GI tract: There is no bowel obstruction.The appendix is within normal limits.Pelvic urogenital structures:There is residual contrast in the bladder. Theuterus is present. There is no adnexal massBody wall: There are no aggressive osseous lesions.Vazquez: (S/I) = series number / image numberIMPRESSIONNo acute abdominal or pelvic processNo bowel obstruction C T SCAN OF THE CHEST WITH CONTRAST 08/29/2023 1:00 PMTECHNIQUE: Multidetector helical CT scan of the chest was performedfollowing the intravenous administration of contrast. Coronal and sagittalreformats as well axial MIPs imaging were acquired.CLINICAL INFORMATION: PE suspected, intermediate prob, positive D-dimerCOMPARISON: Chest x-ray obtained on the same dateFINDINGS:CARDIOVASCULAR: The enhancement of the pulmonary artery is adequate. Nopulmonary emboli to the level of subsegmental pulmonary arteries.Main pulmonary artery is normal in caliber. The thoracic aorta is normal incaliber.The cardiac size is normal. No pericardial effusion. There is nosignificant coronary artery calcification.LYMPH NODES: No thoracic adenopathy.MEDIASTINUM/ LOWER NECK: No mediastinal mass is seen.. No actionablethyroid nodule is present.BRONCHOPULMONARY/PLEURA:The central airways are patent. Patchy groundglass and linear opacities atthe dependent portion of the lungs likely dependent and subsegmentalatelectasis. Low lung volumes. Slight mosaic appearance to the lungs mayrepresent an element of very mild air trapping. No suspicious nodules..No pleural effusion. No pneumothorax.UPPER ABDOMEN: Tiny hiatal hernia. Gallbladder is surgically absent.Otherwise the visualized upper abdomen is unremarkable.BONES/ CHEST WALL: No aggressive or acute abnormalities.IMPRESSIONNo CT evidence of pulmonary embolus.EKG: sinus rhythmAssessment & PlanLisa Jory Rowell is a 53 year old female with PMH as listed above, admitted to the hospital with:1. Chest pain atypical: So, far EKG and troponin are negative for an acute myocardial infarction. Noted to have muscular tenderness on examination-- Will order pain control, oxygen, nitroglycerin prn, and aspirin.-- Will continue to trend the troponin-- Echocardiogram is pending-- Flexeril has been added-- Cardiology has been consulted.2. Diabetes:-- Will start insulin sliding scale as neededProphylaxis: DVT- enoxaparinCode Status: Full Code 44428-1Zrrfvha and physical itxjCY6637-36-58V38:39:31History and physical noteTXT1.2.840.008611.1.13.104.2.7.2.72 7879|[id number] for patient grib50908-1Bwxtnul and physical noteLNNARRATIVEFormatted C-CDA narrative textEMCARE EMERGENCY PHYSICIAN STAFFEMCARE EMERGENCY PHYSICIAN STAFF[address] Nt[id number] GXZBDQIGBJNPJQRIJXD8604-12-45K58:39:311 .2.840.354529.1.72.3.15|1.2.840.144473. 1.13.104.2.7.2.727879_[id number] [facility] Notes Date/Time Note Provider Source 2023-09-02 12:28:06 XK8SzgzUKfc+ZEj3Zx0M XntdlvkakGkRvO5 GqDTvRBNufTAAAhi8fmik6xx0v5br9141-1 09-02T12:28:06 TRANSITIONAL CARE MANAGEMENT ASSESSMENT09/02/2023Jazmín RowellNwlrljw617147XWyoi Jory Rowell is a 53 year old /White female was admitted on 08/29/23 to [facility], [facility]. She was discharged on 08/30/23 with discharge disposition of HR- Routine Discharge.Admitting Physician: John Barker Diagnosis: Chest pain, unspecified typeLinked EpisodesType: Episode: Status: Noted: Resolved: Last update: Updated by:TRANSITION OF CARE TCM Active 08/30/2023 09/02/2023 12:27 PM Veronika Espinoza RNComments:TCM Kia-gypj-af-face outreach documentation:Discharge AssessmentChart Assessed: 09/02/23TCM Outreach Completed: 09/02/23Care Transitions Nurse CM made f/u call to patient post-discharge. No answer, call went to voicemail. CM left discreet message with CM's call back information.DEVIN Salazar, RN, CCRNCare Line Tender [place], Transitions of [facility] [phone] Appointments: 78266-3Coxpvrplf encounter QxmfCL7921-12-42E50:29:19Telephone encounter NoteTXT1.2.840.134391.1.13.104.2.7. 2.766489|[id number] for patient werv47959-6XrkgDWOOJLRHRZPAdqzstrvc C-CDA narrative pajh148523197Ypkqnf L Deborde RN[address] Iw[id number] 6EUGTYOUQZDMTNMIUDCJNEX6996-57-26M2 2:29:191.2.840.064507.1.72.3.15|1.2 .840.258007.1.13.104.2.7.2.727879_2 [id number] Veronika Espinoza RN [facility] 2023-09-01 14:35:55 Qnzu3jiau+fUpf6tsCCr Uivt7ZDoCq5L9Yo pZkLVNTIsMESXrOgxgAJHk/FllQk11820-6 09-01T14:35:55 Care Transitions Nurse CM made f/u call to patient post-discharge. No answer, call went to voicemail. CM left discreet message with CM's call back information. CM will try again at a later time.DEVIN Salazar, RN, CCRNCare Line Tender [place], Transitions [facility] [phone] 49615-9Dbbwaftzb encounter RueyJF5509-77-14C08:36:12Telephone encounter NoteTXT1.2.840.339275.1.13.104.2.7. 2.292856|[id number] for patient oowg62494-1DuuyEUPPMVDJTLFYkzftfere C-CDA narrative [id number] 1AZQMVXUKYRWRZARDZZLJTJ4532-53-56W7 4:36:121.2.840.838078.1.72.3.15|1.2 .840.174088.1.13.104.2.7.2.727879_2 [id number] [facility] 2023-08-30 18:10:02 10rn9YqMLXdpSb0UEZih BpKLpMIcyQSjGZx 1duGGzKnEAWqMUHOnoXppbwmaJ/Fm1369-8 8:10:02 The patient was seen in the hospital for chest pain. Previously mildly abnormal nuclear stress test. Will proceed with CT coronary angiography to assess CAD. 44082-3Gbtzdofww encounter SvnnDR0450-13-86T22:10:46Telephone encounter NoteTXT1.2.840.545547.1.13.104.2.7. 2.929806|[id number] for patient ltzd42836-2EbbwKSIZVLNUNKBHbfuiewph C-CDA narrative [id number] 3WUAAISCZGSTDGLPUJDGXNP2507-91-56U3 8:10:461.2.840.404290.1.72.3.15|1.2 .840.819726.1.13.104.2.7.2.727879_2 [id number] [facility] 2023-08-30 13:55:38 Urdzev7PhXFUd+Sh8GFp TxIER6eKNWCsscT CV+jx12PVEmBqygZNm71nRI3ENJMT5036-2 08-30T13:55:38 Problem: Discharge PlanningGoal: Adequate for discharge08/30/2023 1355 by Julisa Parikh RNOutcome: Adequate for dischargeProblem: Discharge PlanningGoal: Adequate for discharge08/30/2023 135 by Julisa Parikh RNOutcome: ResolvedProblem: Discharge PlanningGoal: Effective communication08/30/2023 135 by Julisa Parikh RNOutcome: ResolvedProblem: Discharge PlanningGoal: Effective communication08/30/2023 135 by Julisa Parikh RNOutcome: Adequate for dischargeProblem: PainGoal: Control of pain at or below patient's documented comfort goal08/30/2023 1355 by Julisa Parikh RNOutcome: ResolvedProblem: PainGoal: Control of pain at or below patient's documented comfort goal08/30/2023 1355 by Julisa Parikh, RNOutcome: Adequate for dischargeProblem: PainGoal: Reduction in pain sensation08/30/2023 1355 by Julisa Parikh, RNOutcome: ResolvedProblem: PainGoal: Reduction in pain sensation08/30/2023 1355 by Julisa Parikh, RNOutcome: Adequate for dischargeProblem: Venous Thromboembolism, (actual or risk of)Goal: Absence of venous thromboembolism (Risk)08/30/2023 1355 by Julisa Parikh RNOutcome: ResolvedProblem: Venous Thromboembolism, (actual or risk of)Goal: Absence of venous thromboembolism (Risk)08/30/2023 1355 by Julisa Parikh, RNOutcome: Adequate for dischargeProblem: Falls, Risk ofGoal: Absence of falls08/30/2023 1355 by Julisa Parikh RNOutcome: ResolvedProblem: Falls, Risk ofGoal: Absence of falls08/30/2023 1355 by Julisa Parikh RNOutcome: Adequate for discharge 59104-7Nnxd of care tmxfZS7261-38-36K16:56:13Plan of care noteTXT1.2.840.277747.1.13.104.2.7. 2.732479|[id number] for patient haqj94676-2SyebMJWVZOMLRLBOvbwjmalb C-CDA narrative text[address] Yg[id number] 0RODDCWFPXLMNIBVMHNDZQY1252-39-07N4 3:56:131.2.840.584739.1.72.3.15|1.2 .840.584060.1.13.104.2.7.2.727879_2 [id number] [facility] 2023-08-30 01:54:12 drV+49zmKiLt84d9ukom HVWmD5D7Elbz2L3 c+uwncMPkNQLWsXSc6k8tW3yyyyuE8275-2 08-30T01:54:12 Problem: Discharge PlanningGoal: Adequate for dischargeOutcome: Progressing as expectedGoal: Effective communicationOutcome: Progressing as expectedProblem: PainGoal: Control of pain at or below patient's documented comfort goalOutcome: Progressing as expectedGoal: Reduction in pain sensationOutcome: Progressing as expectedProblem: Venous Thromboembolism, (actual or risk of)Goal: Absence of venous thromboembolism (Risk)Outcome: Progressing as expectedProblem: Falls, Risk ofGoal: Absence of fallsOutcome: Progressing as expected 70934-6Bbre of care vkzeDH3763-40-35A36:54:30Plan of care noteTXT1.2.840.745156.1.13.104.2.7. 2.130215|[id number] for patient ktbn07737-6MzviNECWRCCMFDOAlvswuuwt C-CDA narrative [id number] A O'Connor RN[address]Tw[id number] 7DHEXIPPTIXRIUKDTJBWVFB6738-37-01K8 1:54:301.2.840.151798.1.72.3.15|1.2 .840.736166.1.13.104.2.7.2.727879_2 [id number] Samantha Rodriguez RN [facility] 2023-08-29 19:15:25 aKwuCzkQ6lT2XumgTJgl fBTvEosPYYoH1Hk uAsFahSbpQbUYXUepq939BMFZhnKX0213-9 08-29T19:15:25 Report given to Samantha KIDD in [place]/S. 64021-5Gcqclyhtd department JoroPZ1808-15-04V64:15:49[facility] NoteTXT1.2.840.319201.1.13.104.2.7. 2.770042|[id number] for patient szwv94845-3LcflNNFOHINLYFISihvdidwx C-CDA narrative [id number] Fief RN[address]Alje[id number] 9JXKUDZWZERTZEHUBFKUASY6383-69-34N4 9:15:491.2.840.972323.1.72.3.15|1.2 .840.121012.1.13.104.2.7.2.727879_2 [id number] Mana James RN [facility] 2023-08-29 15:10:00 +4fZ/yXyicXXN7jr57Ci 0Wupmf6rNe3QrfC VvmAgiVVwyQDOqThJSBG1roZ4SPFJ9375-7 08-29T15:10:00 Patient given ice for po challenge, patient actively vomiting immediately after challenge. 00911-7Skntnlgvk department SjfbQD9196-57-28M49:23:18[facility] department NoteTXT1.2.840.711028.1.13.104.2.7. 2.079974|[id number] for patient cpot39785-6LxnrQRMXLPKOQKCCerbqkmme C-CDA narrative [id number] M Herrera RN[address]AouzWkufacytxTuohdlugbTDFB567142366 8SXTYKJCAYWPLRUUZPQXJAY1022-84-11D8 5:23:181.2.840.952469.1.72.3.15|1.2 .840.279724.1.13.104.2.7.2.727879_2 [id number] Allyn Berman RN [facility] 2023-08-29 13:50:00 f2AqLsObaibEkmfzd2wp U4I3eitr1nBYr0C B+V0O4Q6BSdb63HZ8tK64ZX0OCscT3682-7 3:50:00 Patient po challenge with ice 30816-2Knsotlnpo department ExrfWV3598-61-14H45:03:04[facility] department NoteTXT1.2.840.447953.1.13.104.2.7. 2.589163|[id number] for patient mzup87117-1PtlaCQGUTJOGNKNCeobheqzt C-CDA narrative [id number] 3KKHZNUDUKVEZXRGXJRRRXY5286-98-93P0 4:03:041.2.840.449542.1.72.3.15|1.2 .840.152209.1.13.104.2.7.2.727879_2 [id number] [facility] 2023-08-29 10:51:43 G0ECdZ0W0ZEcaE+qIzhS TRoYNj+G1eOv4pq mNh7kHbnh7TjRbp4fM29lGch08d/F4214-5 08-29T10:51:43 Report received from BERNABE James 83715-3Gxmlylkqm department LyetTG5623-02-27L85:52:02[facility] department NoteTXT1.2.840.011443.1.13.104.2.7. 2.323486|[id number] for patient xnqb19057-4MuqfZEENAZYBRBJIrcegrwqe C-CDA narrative [id number] 5XPRQOJALTXBSTLXFWCPWPS1075-74-42L2 0:52:021.2.840.792528.1.72.3.15|1.2 .840.995832.1.13.104.2.7.2.727879_2 [id number] [facility] 2023-08-29 10:26:14 FyQ9wASKe3EZKv4cz2Pk zWUjStry3Y+ieQL U2+UdnJo/f7lrY2k7duk8c6ySZUBC4960-1 08-29T10:26:14 Pt c/o left sided CP that started ~1.5 hours [employer] accompanied by dizziness, SOB, and N/V. States N/V started last night. 71164-1Dkikvafcc department Triage loqlMA8637-71-09S66:27:13[facility] department Triage [id number]. [id number] for patient [id number] department NoteLNNARRATIVEFormatted C-CDA narrative [id number] N Dewoody RN[address] Td[id number] 0:27:[id number]|1.2 .84[id number] Lillie Pathak RN [facility] 2023-08-29 10:17:00 KxPZC+mmn+J2TeydPeE4 0szYwXYOQuOLNJ5 [id number]/dTJR9434-5 08-29T10:17:00 AdmissionCareGuideline: Vomiting - OBS, ObservationBased on the indications selected for the patient, the bed status of Admit to Observation was determined to be METThe following indications were selected as present at the time of evaluation of the patient:- Vomiting that persists despite emergency department careAdmissionCare documentation entered by: Marylou DriverUniversity Hospitals St. John Medical Center, 27th edition, Copyright ? 2022 [facility] [employer] [facility] All Rights Reserved.[id number]:31:55-06:00E lectronically signed by Marylou Driver NP at 08/29/2023 5:31 PM [id number] Admission [id number]:31:56EC Admission [id number]. [id number] for patient [id number] C-CDA narrative text[address] H[id number] 7:31:561.2.840.953904.1.72.3.15|1.2 .84[id number] [facility]
[2023-10-06] MEDS ORDERED: ACETAMINOPHEN 500 MG TAB ONE (00:26)
[2023-10-06 00:50] LABS: Absolute Lymphocytes (CBC) 1.1 K/uL (0.7-4.9); Basophils % 0.4 % (0-1.3); Hematocrit 27.9 % (36.0-45.0); Lymphocytes % 16.8 % (15.3-44.8); MCV 81.3 fL (80-100); MPV 8.1 fL (7.6-11.3); Platelets 346 thou/uL (152-406); RBC Red Blood Cell Count 3.44 M/uL (3.86-4.86)
[2023-10-06 00:53] LABS: Protime INR 1.1
[2023-10-06 01:11] LABS: ALT/SGPT 17 U/L (13-56); AST/SGOT 13 U/L (15-37); Albumin 2.9 g/dL (3.4-5.0); Albumin/Globulin Ratio 0.7 (1.1-1.8); Alkaline Phosphatase 131 U/L (45-117); Anion Gap 8.8 mEq/L (5.0-15.0); BUN Blood Urea Nitrogen 18 mg/dL (7-18); Bicarbonate 28 mEq/L (21-32); Bilirubin Direct < 0.1 mg/dL (0-0.2); Bilirubin Indirect, Calculated ND mg/dL (0.2-0.8); Bilirubin Total 0.2 mg/dL (0.2-1.0); Glomerular Filtration Rate 75 ml/min (=/>90); Glucose Level 109 mg/dL (74-106); Magnesium 1.9 mg/dL (1.6-2.4); NT PRO-BNP 23 pg/mL (<125); Potassium 3.8 mEq/L (3.5-5.1); Protein, Total 7.3 g/dL (6.4-8.2); Sodium Level 140 mEq/L (136-145); Troponin High Sensitivity 5.5 pg/mL (<58.9)
[2023-10-06 01:11] LABS: Urine Bacteria None Seen /HPF (<20); Urine Bilirubin NEGATIVE (Negative); Urine Blood Trace (Negative); Urine Clarity Clear (Clear); Urine Color Light-Yellow (Yellow); Urine Glucose 4+ (Over) (Negative); Urine Mucus Slight /HPF (None Seen); Urine Protein NEGATIVE (Negative); Urine RBC <5 /HPF (None Seen); Urine Urobilinogen Normal (Normal)
[2023-10-06] MEDS ORDERED: IPRATROPIUM BROM 0.5MG/2.5ML ONE (01:58)
[2023-10-06] MEDS ORDERED: ALBUTEROL 2.5 MG/3 ML NEB SOL ONE (01:58)
[2023-10-06] MEDS ORDERED: METHYLPREDNISOLONE 125 MG INJ ONE (01:59)
--- NOTE | 2023-10-06 02:19 | EDPHYS ---
Physician Documentation [facility] Name: Jazmní Perez Age: 53 yrs Sex: Female : 1970 Arrival Date: 10/05/2023 Time: 21:48 Bed 13 Private MD: ED Physician Hamilton Castillo HPI: 10/04 22:45 This 53 yrs old Female presents to ER via Wheelchair with complaints of Flu cp Symptoms, Chest Pain, Shortness Of Breath. 22:45 The patient or guardian reports chest pain that is located primarily in the anterior cp chest wall, left. 22:45 Onset: gradually. Associated signs and symptoms: Pertinent positives: non-productive cp cough, shortness of breath. The patient has been recently been admitted at [facility], reports discharge last Friday after admission for pneumonia. Patient reports she does not feel symptoms have improved. Continues to have cough, congestion, chest pain and shortness of breath. Historical: - Allergies: 22:02 Codeine; tl4 - Home Meds: 22:02 Tessalon Perles Oral [Active]; Prednisone Oral [Active]; tl4 - PMHx: 22:02 allergies; Anxiety; Diabetes - NIDDM; tl4 - PSHx: 22:02 None; tl4 - Immunization history:: Adult Immunizations unknown. - Social history:: Smoking status: Patient denies any tobacco usage or history of. ROS: 22:50 Constitutional: Negative for fever, poor PO intake, cp 22:50 Eyes: Negative for injury, pain, redness, and discharge, cp 22:50 ENT: Negative for drainage from ear(s), ear pain, sore throat, difficulty swallowing, difficulty handling secretions, 22:50 Cardiovascular: Positive for chest pain, Negative for edema, 22:50 Respiratory: Positive for cough, with no reported sputum, shortness of breath, Negative for wheezing, 22:50 Abdomen/GI: Negative for abdominal pain, vomiting, diarrhea, constipation, 22:50 : Negative for urinary symptoms, 22:50 Neuro: Positive for weakness, Negative for altered mental status, numbness, tingling, 22:50 All other systems are negative, Exam: 22:55 Constitutional: The patient appears in no acute distress, alert, awake, cp non-diaphoretic, non-toxic, well developed, well nourished, obese, 22:55 Head/Face: Normocephalic, atraumatic. cp 22:55 Eyes: Periorbital structures: appear normal, Conjunctiva: normal, no exudate, no injection, Sclera: no appreciated abnormality, Lids and lashes: appear normal, bilaterally, 22:55 ENT: External ear(s): are unremarkable, Nose: is normal, Mouth: Lips: moist, Oral mucosa: pink and intact, moist, 22:55 Chest/axilla: Inspection: normal, 22:55 Cardiovascular: Rate: normal, Rhythm: regular, 22:55 Respiratory: the patient does not display signs of respiratory distress, Respirations: normal, no use of accessory muscles, no retractions, labored breathing, is not present, Breath sounds: are clear throughout, no decreased breath sounds, no stridor, no wheezing, 22:55 Abdomen/GI: Inspection: abdomen appears normal, Palpation: abdomen is soft and non-tender, in all quadrants, 23:35 ECG was reviewed by the Attending Physician. cp Vital Signs: 21:56 BP 137 / 67; Pulse 108; Resp 20; Temp 99.4(O); Pulse Ox 98% on R/A; Weight 102.51 kg; tl4 Height 5 ft. 2 in. ; Pain 9/10; 23:00 BP 101 / 62; Pulse 97; Resp 20; Temp 99.4; Pulse Ox 96% on R/A; as9 10/05 00:00 BP 128 / 75; Pulse 94; Resp 19; Temp 99.1; Pulse Ox 96% on R/A; Pain 6/10; pf1 01:00 BP 128 / 65; Pulse 95; Resp 20; Temp 98.1; Pulse Ox 96% on R/A; Pain 5/10; pf1 02:00 BP 110 / 54; Pulse 90; Resp 20; Temp 98; Pulse Ox 97% on R/A; Pain 4/10; pf1 10/04 21:56 Body Mass Index 41.34 (102.51 kg, 157.48 cm) tl4 10/04 21:56 Pain Scale: Adult tl4 10/05 00:00 Pain Scale: Adult pf1 01:00 Pain Scale: Adult pf1 02:00 Pain Scale: Adult pf1 MDM: 10/04 22:11 Patient medically screened. cp 10/04 22:38 Order name: Basic Metabolic Panel; Complete Time: 01:43 cp / 01:44 Interpretation: Normal except: GLUC 109; GFR 75. cp 10/04 22:38 Order name: CBC with Diff; Complete Time: 00:58 cp / 00:58 Interpretation: Normal except: RBC 3.44; HGB 8.9; HCT 27.9; MCH 25.8; MCHC 31.7; RDW cp 19.4. 10/04 22:38 Order name: LFT's; Complete Time: 01:43 cp / 01:44 Interpretation: Normal except: AST 13; ALK 131; ALB 2.9; GLOB 4.4; A/G 0.7. cp 10/04 22:38 Order name: Magnesium; Complete Time: 01:43 cp 10/04 22:38 Order name: NT PRO-BNP; Complete Time: 01:43 cp 10/04 22:38 Order name: PT-INR; Complete Time: 00:58 cp 10/04 22:38 Order name: Troponin HS; Complete Time: 01:43 cp 10/05 01:44 Interpretation: Reviewed. cp 10/04 22:38 Order name: COVID-19 SARS RT PCR; Complete Time: 00:58 cp 10/05 00:59 Interpretation: Reviewed. cp 10/04 22:38 Order name: Influenza Screen (a \T\ B); Complete Time: 00:58 cp / 00:13 Order name: Urinalysis W/Microscopic; Complete Time: 01:43 cp 10/05 01:44 Interpretation: Normal except: UGLUC 4+ (Over); UBLD Trace; UESTR 25. cp 03/ 02:04 Order name: Troponin High Sensitivity cp 10/04 22:38 Order name: XRAY Chest (1 view) cp / 01:10 Order name: CT Chest For PE Angio cp 10/04 22:38 Order name: EKG; Complete Time: 22:39 cp 10/04 22:38 Order name: Cardiac monitoring; Complete Time: 23:33 cp 10/04 22:38 Order name: EKG - Nurse/Tech; Complete Time: 23:33 cp 10/04 22:38 Order name: IV Saline Lock; Complete Time: 23:55 cp 10/04 22:38 Order name: Labs collected and sent; Complete Time: 23:55 cp 10/04 22:38 Order name: O2 Per Protocol; Complete Time: 23:34 cp 10/04 22:38 Order name: O2 Sat Monitoring; Complete Time: 23:34 cp EC:35 Rate is 93 beats/min. Rhythm is regular. MO interval is normal. QRS interval is normal. cp QT interval is normal. Interpreted by me. Reviewed by me. Administered Medications: 10/05 00:25 Drug: Acetaminophen PO 1000 mg PO once Route: PO; pf1 01:43 Follow up: Response: No adverse reaction; Marked relief of symptoms; Temperature is pf1 decreased; Pain is decreased 02:11 Drug: DuoNeb Nebulize (2.5 mg - 0.5 mg) 3 ml Nebulizer once Route: Nebulizer; pf1 02:30 Follow up: Response: No adverse reaction; Marked relief of symptoms pf1 02:11 Drug: MethylPrednisoLONE IVP 125 mg IVP once Route: IVP; Site: right antecubital; pf1 02:30 Follow up: Response: No adverse reaction pf1 Disposition: 02:18 I agree with the assessment and plan of care. sp3 Disposition Summary: 10/06/23 02:19 Discharge Ordered Notes: Location: Home sp3 Condition: Stable sp3 Diagnosis - dyspnea sp3 Followup: sp3 - With: Private Physician - When: Upon discharge from the Emergency Department - Reason: Recheck today's complaints, Continuance of care Discharge Instructions: - Discharge Summary Sheet sp3 - Shortness of Breath, Adult sp3 Forms: - Medication Reconciliation Form sp3 - Thank You Letter sp3 - Antibiotic Education sp3 - Prescription Opioid Use sp3 - Patient Portal Instructions sp3 - Leadership Thank You Letter sp3 Signatures: Dispatcher [employer] EDMS Onel Gibbs PA PA cp Patel, Setul, MD MD sp3 Marylou Baer RN RN pf1 Tamir Mcghee RN RN tl4
--- NOTE | 2023-10-06 02:19 | ER ---
Nurse's Notes [facility] Name: Jazmín Perez Age: 53 yrs Sex: Female : 1970 Arrival Date: 10/05/2023 Time: 21:48 Bed 13 Private MD: Diagnosis: dyspnea Presentation: 10/04 21:56 Chief complaint: Patient states: Pt recently discharged from this facility after tl4 admission for pneumonia. Pt has not felt better since prior to admission. Pt has completed course of abx, prednisone, and zyrtec without relief of symptoms. Pt states she feels worse today with weakness, non-productive cough, decreased appetite, chills. Coronavirus screen: chills, congestion, cough unrelated to allergies. Ebola Screen: No symptoms or risks identified at this time. Initial Sepsis Screen: Does the patient meet any 2 criteria? No. Patient's initial sepsis screen is negative. Does the patient have a suspected source of infection? No. Patient's initial sepsis screen is negative. Risk Assessment: Do you want to hurt yourself or someone else? Patient reports no desire to harm self or others. Onset of symptoms was September 25, 2023. 21:56 Method Of Arrival: Wheelchair tl4 21:56 Acuity: LOU 3 tl4 Triage Assessment: 22:03 General: Appears uncomfortable, Behavior is calm, cooperative. Pain: Complains of pain tl4 in back and chest Aggravated by coughing. EENT: Reports nasal congestion nasal discharge. Neuro: No deficits noted. Cardiovascular: No deficits noted. Respiratory: Reports cough that is pain with cough. Respiratory:. GI: No deficits noted. No signs and/or symptoms were reported involving the gastrointestinal system. : No deficits noted. No signs and/or symptoms were reported regarding the genitourinary system. Derm: No deficits noted. No signs and/or symptoms reported regarding the dermatologic system. Musculoskeletal: No deficits noted. No signs and/or symptoms reported regarding the musculoskeletal system. Historical: - Allergies: 22:02 Codeine; tl4 - Home Meds: 22:02 Tessalon Perles Oral [Active]; Prednisone Oral [Active]; tl4 - PMHx: 22:02 allergies; Anxiety; Diabetes - NIDDM; tl4 - PSHx: 22:02 None; tl4 - Immunization history:: Adult Immunizations unknown. - Social history:: Smoking status: Patient denies any tobacco usage or history of. Screenin:00 [facility] ED Fall Risk Assessment (Adult) History of falling in the last 3 months, pf1 including since admission No falls in past 3 months (0 pts) Confusion or Disorientation No (0 pts) Intoxicated or Sedated No (0 pts) Impaired Gait Yes (1 pt) Mobility Assist Device Used No (0 pt) Altered Elimination No (0 pt) Score/Fall Risk Level 0 - 2 = Low Risk Oriented to surroundings, Maintained a safe environment, Educated pt \T\ family on fall prevention, incl call for assistance when getting out of bed, Assessed \T\ reinforced patient's understanding of fall precautions, Provided non-skid footwear, Hourly rounding (assess needs \T\ fall precautionary measures) done, Used ambulatory aids as needed (educated on \T\ assisted with), Used gait belt as appropriate. 22:00 Abuse screen: Denies threats or abuse. Nutritional screening: No deficits noted. pf1 Tuberculosis screening: No symptoms or risk factors identified. Assessment: 22:47 General: Appears in no apparent distress. uncomfortable, obese, well groomed, well pf1 developed, Behavior is calm, cooperative, appropriate for age, quiet. 22:47 Pain: Complains of pain in chest and generalized body aches Pain does not radiate. Pain pf1 currently is 6 out of 10 on a pain scale. Pain began 2-3 days ago. Neuro: No deficits noted. Level of Consciousness is awake, alert, obeys commands, Oriented to person, place, time, situation. Cardiovascular: Reports chest pain, Capillary refill < 3 seconds Patient's skin is warm and dry. Respiratory: Reports cough that is Airway is patent Respiratory effort is even, unlabored, Respiratory pattern is regular, symmetrical. GI: No deficits noted. No signs and/or symptoms were reported involving the gastrointestinal system. : No deficits noted. No signs and/or symptoms were reported regarding the genitourinary system. Musculoskeletal: Reports pain in chest and generalized body aches since 6. 03/ 00:30 Reassessment: Patient appears in no apparent distress at this time. Patient and/or pf1 family updated on plan of care and expected duration. Pain level reassessed. Patient is alert, oriented x 3, equal unlabored respirations, skin warm/dry/pink. 01:30 Reassessment: Patient appears in no apparent distress at this time. Patient and/or pf1 family updated on plan of care and expected duration. Pain level reassessed. Patient is alert, oriented x 3, equal unlabored respirations, skin warm/dry/pink. Patient states symptoms have improved. Vital Signs: 10/04 21:56 BP 137 / 67; Pulse 108; Resp 20; Temp 99.4(O); Pulse Ox 98% on R/A; Weight 102.51 kg; tl4 Height 5 ft. 2 in. ; Pain 9/10; 23:00 BP 101 / 62; Pulse 97; Resp 20; Temp 99.4; Pulse Ox 96% on R/A; as9 10/05 00:00 BP 128 / 75; Pulse 94; Resp 19; Temp 99.1; Pulse Ox 96% on R/A; Pain 6/10; pf1 01:00 BP 128 / 65; Pulse 95; Resp 20; Temp 98.1; Pulse Ox 96% on R/A; Pain 5/10; pf1 02:00 BP 110 / 54; Pulse 90; Resp 20; Temp 98; Pulse Ox 97% on R/A; Pain 4/10; pf1 10/04 21:56 Body Mass Index 41.34 (102.51 kg, 157.48 cm) tl4 10/04 21:56 Pain Scale: Adult tl4 10/05 00:00 Pain Scale: Adult pf1 01:00 Pain Scale: Adult pf1 02:00 Pain Scale: Adult pf1 ED Course: 10/04 21:50 Patient arrived in ED. im 22:00 Patient maintains SpO2 saturation greater than 95% on room air. pf1 22:01 Onel Gibbs PA is PHCP. cp 22:01 Hamilton Castillo MD is Attending Physician. cp 22:02 Triage completed. tl4 22:02 Arm band placed on right wrist. tl4 22:47 Patient has correct armband on for positive identification. Bed in low position. Call pf1 light in reach. Side rails up X 1. 22:47 Client placed on continuous cardiac and pulse oximetry monitoring. NIBP monitoring pf1 applied. desk monitor on. Pulse ox on. 23:00 XRAY Chest (1 view) In Process Unspecified. EDMS 23:45 No provider procedures requiring assistance completed. Inserted saline lock: 22 gauge pf1 in right antecubital area, using aseptic technique. Blood collected. 23:55 Influenza Screen (a \T\ B) Sent. pf1 23:55 COVID-19 SARS RT PCR Sent. pf1 23:55 Basic Metabolic Panel Sent. pf1 23:55 CBC with Diff Sent. pf1 23:55 LFT's Sent. pf1 23:55 Magnesium Sent. pf1 23:55 NT PRO-BNP Sent. pf1 23:55 PT-INR Sent. pf1 23:55 Troponin HS Sent. pf1 03/04 00:56 Urinalysis W/Microscopic Sent. pf1 01:53 CT Chest For PE Angio In Process Unspecified. EDMS 02:11 Troponin High Sensitivity Sent. pf1 02:30 Provided Education on: follow up. pf1 02:30 IV discontinued, intact, bleeding controlled, No redness/swelling at site. Pressure pf1 dressing applied. Administered Medications: 00:25 Drug: Acetaminophen PO 1000 mg PO once Route: PO; pf1 01:43 Follow up: Response: No adverse reaction; Marked relief of symptoms; Temperature is pf1 decreased; Pain is decreased 02:11 Drug: DuoNeb Nebulize (2.5 mg - 0.5 mg) 3 ml Nebulizer once Route: Nebulizer; pf1 02:30 Follow up: Response: No adverse reaction; Marked relief of symptoms pf1 02:11 Drug: MethylPrednisoLONE IVP 125 mg IVP once Route: IVP; Site: right antecubital; pf1 02:30 Follow up: Response: No adverse reaction pf1 Medication: 02:30 VIS not applicable for this client. pf1 Outcome: 02:19 Discharge ordered by . sp3 02:30 Discharged to home via wheelchair, pf1 02:30 Condition: improved pf1 02:30 Discharge instructions given to patient, Instructed on discharge instructions, follow up and referral plans. Demonstrated understanding of instructions, follow-up care, 02:42 Patient left the ED. pf1 Signatures: Dispatcher [employer] EDTX Onel Gibbs PA PA cp Patel, Setul, MD MD sp3 Marylou Baer RN RN pf1 Calli Martinez Toni, RN RN tl4 Flavio Sauer RN RN as9 Corrections: (The following items were deleted from the chart) 00:55 00:46 General: Appears pf1 pf1
[2023-10-06 03:10] VITALS: BP 110/54; TEMP 98; O2SAT 97
--- NOTE | 2023-10-06 11:59 | RAD REPORT ---
EXAM DESCRIPTION: CTA THORAX - PULMONARY ARTERIES TECHNIQUE: Suspected pulmonary embolus. COMPARISON: CT chest abdomen pelvis 09/25/2023. TECHNIQUE: Intravenous low osmolar contrast. Coronal and sagittal reformations including 3D maximu m intensity projections. This exam was performed according to our departmental dose-optimization program, which includes autom ated exposure control, adjustment of the mA and/or kV according to patient size and/or use of iterati ve reconstruction technique. FINDINGS: PULMONARY ARTERIAL SYSTEM: Contrast bolus is adequate. No CT evidence for pulmonary embo lism. CARDIAC: Normal. AORTA/VASCULAR: No aneurysm. LYMPH NODES/MEDIASTINUM: No thoracic adenopathy. CENTRAL AIRWAYS: Central airways are patent. LUNGS: Multifocal right upper lobe groundglass opacities, significantly improved compared to 4. Bibasilar atelectasis. PLEURA: Normal. ESOPHAGUS: Collapsed and not well assessed by CT, without obvious abnormality. THYROID: Negative, where seen. CHEST WALL: Normal. UPPER ABDOMEN: Cholecystectomy. No acute findings. THORACIC SKELETAL: No acute finding. ADDITIONAL CHEST FINDINGS: None. IMPRESSION: 1. No evidence of acute pulmonary embolus. 2. Multifocal right upper lobe groundglass opacities, significantly improved compared to 09/25/2023, suggesting resolving atypical/viral pneumonia in the appropriate clinical setting. Electronically signed by: Ang Merritt MD 10/06/2023 02:03 AM HOUSE WIRER HELPER Due to temporary technical issues with the PACS/Fluency reporting system, reports are being signed by the in house radiologists without review as a courtesy to insure prompt reporting. The interpreting radiologist is fully responsible for the content of the report.
--- NOTE | 2023-10-06 12:15 | RAD REPORT ---
EXAM DESCRIPTION: Chest singe view CLINICAL HISTORY: CHEST PAIN COMPARISON: Chest x-ray 09/25/2023 TECHNIQUE: Single AP view of the chest. FINDINGS: Lung volumes adequate. Cardiac silhouette is normal in size. No pneumothorax. No large pleural effusion. Subtle reticular opacities in the right peripheral upper lobe, likely scarring/atelectasis. No focal consolidation. No acute bony finding. IMPRESSION: Subtle reticular opacities in the peripheral right upper lobe, likely scarring/atelectas is. No focal consolidation. Electronically signed by: Ang Merritt MD 10/05/2023 11:13 PM RESEARCH PROFESSOR OF BIOSTATISTICS Due to temporary technical issues with the PACS/Fluency reporting system, reports are being signed by the in house radiologists without review as a courtesy to insure prompt reporting. The interpreting radiologist is fully responsible for the content of the report.
--- NOTE | 2023-10-07 17:09 | EKG ---
Test Date: 2023-10-05 Test Time: 23:30:59 Bar Host/Hostess: TYRONE MEASUREMENT RESULTS: Intervals: Rate: 93 OH: 140 QRSD: 96 QT: 362 QTc: 450 Kinsman: P: 50 OH: 140 QRS: 69 T: 96 INTERPRETIVE STATEMENTS: Normal sinus rhythm Nonspecific T wave abnormality Abnormal ECG Compared to ECG 09/25/2023 15:13:32 T-wave abnormality now present Sinus tachycardia no longer present Myocardial infarct finding no longer present Electronically Signed On 10-07-23 17:04:03 NEWSPAPER JOURNALIST by Edvin North
== END 2023-10-06 02:42 | disposition home or self-care (01) ==
LOC: ER 21:48
DX: R06.00 Dyspnea, unspecified (principal); R07.89 Other chest pain; R05.9 Cough, unspecified; E11.9 Type 2 diabetes mellitus without complications; Z11.52 Encounter for screening for COVID-19; Z88.5 Allergy status to narcotic agent
CPT/HCPCS: 93005; 85025; 80048; 36415; 83735; 85610; 80076; 84484; 83880; 87635; 87804 ×2; 71275; 71045; 94640; 96374; 99285; Q9967

== ENCOUNTER 2023-12-02 05:51 | Inpatient (IN) | payer OTHER ==
[2023-11-28 09:50] LABS: Absolute Eosinophils 0.1 K/uL (0-0.5); Absolute Lymphocytes (CBC) 1.4 K/uL (0.7-4.9); Absolute Monocytes 0.3 K/uL (0.1-1.3); Absolute Neutrophil 2.9 K/uL (1.8-8.0); Basophils % 0.5 % (0-1.3); Eosinophils % 2.8 % (0-4.4); Hematocrit 30.7 % (36.0-45.0); Hemoglobin 9.7 g/dL (12.0-15.0); Lymphocytes % 29.3 % (15.3-44.8); MCHC 31.5 g/dL (32.0-36.0); MCV 82.5 fL (80-100); MPV 8.1 fL (7.6-11.3); Neutrophils % 60.4 % (41.7-73.7); Nucleated Red Blood Cells % 0.1 % (0-0); Platelets 288 thou/uL (152-406); RBC Red Blood Cell Count 3.72 M/uL (3.86-4.86)
[2023-11-28 09:52] LABS: Specific Gravity 1.023 (1.005-1.030); Sqamous Epithelial <5 /HPF (None Seen); Urine Bacteria 20-50 /HPF (<20); Urine Bilirubin NEGATIVE (Negative); Urine Blood Negative (Negative); Urine Clarity Turbid (Clear); Urine Color Light-Yellow (Yellow); Urine Culture Reflex Order NOT NEEDED; Urine Glucose 4+ (Over) (Negative); Urine Ketones NEGATIVE (Negative); Urine Microscopic Reflex YN ORDER UMIC; Urine Mucus Slight /HPF (None Seen); Urine Nitrite NEGATIVE (Negative); Urine Protein TRACE (Negative); Urine RBC <5 /HPF (None Seen); Urine Urobilinogen Normal (Normal); Urine WBC Clump Rare /HPF (None Seen); Urine pH 5.5 (5.0-7.0)
[2023-11-28 09:55] LABS: PT Prothrombin Time 11.1 SECONDS (9.5-12.5); PTT, Activated Partial Thromb 31.9 SECONDS (24.3-36.9); Protime INR 1.01
[2023-11-28 10:07] LABS: Albumin 3.3 g/dL (3.4-5.0); Albumin/Globulin Ratio 0.8 (1.1-1.8); Anion Gap 8.8 mEq/L (5.0-15.0); Bilirubin Total 0.3 mg/dL (0.2-1.0); Globulin 4.1 g/dL (2.3-3.5); Potassium 3.8 mEq/L (3.5-5.1); Protein, Total 7.4 g/dL (6.4-8.2)
[2023-12-02] MEDS: NA CHLORIDE 0.9% 1,000 ML ONE ×3 (06:25→10:09)
[2023-12-02] MEDS: MORPHINE SULFATE/PF 1 MG/ML (10 ML AMP) ONE (06:29)
[2023-12-02] MEDS: BUPIVACAINE 0.75% (PF) 2 ML SP ONE (06:29)
[2023-12-02] MEDS: TRANEXAMIC ACID 1,000 MG/10 ML VIAL IV ONE (06:30)
[2023-12-02] MEDS ORDERED: FENTANYL CITR 100 MCG/2 ML ONE (06:36)
[2023-12-02] MEDS ORDERED: propofoL 200 MG/20 ML VIAL IV ONE ×2 (06:39→07:37)
[2023-12-02] MEDS ORDERED: MIDAZOLAM HCL 2 MG/2 ML INJ ONE ×2 (06:39→07:11)
[2023-12-02] MEDS ORDERED: LIDOCAINE 2% MPF 5 ML VIAL ONE ×3 (06:39→08:39)
[2023-12-02] MEDS: ONDANSETRON 4 MG/2 ML VIAL ONE (06:40)
[2023-12-02] MEDS: CELECOXIB 100 MG CAPSULE ONE (06:42)
[2023-12-02] MEDS: GABAPENTIN 100 MG CAP ONE (06:42)
[2023-12-02] MEDS: Oxycodone HCl/Acetaminophen 5/325 MG TAB ONE (06:42)
[2023-12-02] MEDS: ACETAMINOPHEN 500 MG TAB ONE (06:42)
[2023-12-02] MEDS ORDERED: ROCURONIUM 50 MG/5 ML VIAL IV ONE (07:48)
[2023-12-02] MEDS: CEFAZOLIN SODIUM 2 GM/VIAL ONE (07:55)
[2023-12-02] MEDS ORDERED: NS 0.9% VIAL 10 ML ONE (08:01)
[2023-12-02] MEDS: DEXMEDETOMIDINE HCL 200 MCG/2 ML VIAL ONE (08:36)
[2023-12-02] MEDS: MAGNESIUM SULFATE 1 gm IVPB 1 GM/100 ML BAG IV ONE (08:36)
[2023-12-02] MEDS ORDERED: KETAMINE HCL IN 0.9 % NACL 50 MG/5 ML SYRINGE IV ONE (08:41)
[2023-12-02] MEDS ORDERED: Phenylephrine HCl 10 MG/ML 1 ML VIAL ONE (08:55)
--- NOTE | 2023-12-02 09:23 | RAD REPORT ---
EXAM DESCRIPTION: RAD - Hip Right 1 View - 12/02/2023 9:14 am CLINICAL HISTORY: Right hip surgery FINDINGS: Three intraoperative films obtained demonstrating performance of a right hip arthroplasty No significant abnormality is displayed
[2023-12-02] MEDS ORDERED: DOCUSATE NA 100 MG CAP PO PRN (09:36)
--- NOTE | 2023-12-02 09:42 | P.BOP ---
Preoperative diagnosis: right hip arthritis Postoperative diagnosis: same Primary procedure: right toal hip arthoplasty Estimated blood loss: 150 Anesthesia: General Complications: None Transferred to: Recovery Room Condition: Good
[2023-12-02] MEDS: DIPHENHYDRAMINE 50 MG/ML VIAL ONE (10:36)
[2023-12-02] MEDS: FENTANYL CITR 100 MCG/2 ML ONE (10:43)
[2023-12-02] MEDS: KETOROLAC 30 MG/ML INJ ONE (11:01)
[2023-12-02] MEDS: MIDAZOLAM HCL 2 MG/2 ML INJ ONE (11:14)
[2023-12-02 11:20] LABS: Hematocrit 24.6 % (36.0-45.0); Hemoglobin 7.6 g/dL (12.0-15.0)
--- OUTSIDE RECORDS SUMMARY | 2023-12-02 12:05 | XMS REPORT | Continuity of Care Document ---
Author Name Unknown Address [address] [facility] [place] [address] [facility] thconnect Address [address] [facility] [address] [place] [address] Care Team Providers Care Career Development Director Name Role Phone ESTEFANY EVANS Primary Care Physician Unavaila Estefany Bergman Attending Clinician Unavailable KAYLA LUTZ Attending Clinician UnavailLACEY Guzman Attending Clinician Unava ilBREE Pelaez Attending Clinician Unavailable Doctor Unassigned, [place] Attending Clinician U michaela Espinoza RN, Veronika Serra Attending Clinician Unavail able ANNAMARIA BARKER Attending Clinician Unavailable Yony GOMEZ, Marylou Sanabria Attending Clinician [phone] Annamaria Barker DO Attending Clinician [phone] Billy WOODSON, Bree Attending Clinician [phone] Kayla Lutz MD Attending Clinician [phone] Bernice Amaya Attending Clinician [phone] PEDRO LUIS RUSHING Attending Clinician Unavailable PEDRO LUIS RUSHING Attending Clinician Unavailable Pob, [facility] Attending Clinician UnavailBERNICE Conrad Attending Clinician Unavailable Chelo Cornejo RN Attending Clinician Unavailab carmelo Clemons MD, Brodie Evangelista Attending Clinician [phone] FILIPE WIGGINS Attending Clinician Unavailable HEMA CLAYTON ARPITA Attending Clinician Unavail able Bharaht Padgett CRNA Attending Clinician [phone] Oliver Hunt MD Attending Clinician [phone] Only, Adc Test Attending Clinician Unavailable RENÉE AGUILERA Attending Clinician Unavail able RENÉE AGUILERA Attending Clinician Unavail able ANDREW RESENDIZ Attending Clinician Unavail able Nurse, Adc Pob Immunization Attending Clinician Unavailable Andrew Resendiz DO Attending Clinician Jonas Barker MD Attending Clinician Calin Lazar DO Attending Clinician [phone] KAYLA LUTZ Admitting Clinician UnavailANNAMARIA Amado Admitting Clinician Unavailable Annamaria Barker DO Admitting Clinician [phone] Kayla Lutz MD Admitting Clinician [phone] BERNICE COLUNGA Admitting Clinician Unavailable Payers Payer Name Policy Type Policy Number Effective Date Expirati on Date Source [facility] [place] STAR PLUS [id number] 2021 00:00:00 [facility] HEALTH CHOICE [id number] 2015 00:00:00 [facility] [id number] 2020 00:00:00 [facility] DUAL COMP CHOICE PPO DSNP [id number] 2023 00:00:00 Ambetter from [facility] [id number] [facility] HIM [facility]ETTER FROM [facility] [id number] 2019 00:00:00 Ambetter from [facility] [id number] [facility] Ambetter from [facility] [id number] [facility] Ambetter from [facility] [id number] [facility] Problems Condition Name Condition Details Condition Category Status Onset Date Resolution Date Last Treatment Date Treating Clinician Comments Source Abnormal nuclear cardiac imaging test Abnormal nuclear cardiac imaging test Disease Active 08-30 00:00: 00 [facility] Chest pain, unspecifie d type Chest pain, unspecifie d type Disease Active 08-29 00:00: 00 [facility] Right lower quadrant abdominal pain Right lower quadrant abdominal pain Disease Active 2021-08 00:00: 00 [facility] Morbid obesity with body mass index of 40.0-49.9 Morbid obesity with body mass index of 40.0-49.9 Disease Active 01-15 00:00: 00 [facility] Arthritis of left hip Arthritis of left hip Disease Active 01-04 00:00: 00 Overview: Formattin g of this note might be different from the original. 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 of non-steroi jaiden anti-infla mmatories (nsaid) 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 (nsaid) Disease Active 03-31 00:00: 00 [facility] Other iron deficiency anemia Other iron deficiency anemia Disease Active 03-31 00:00: 00 [facility] Subcutaneo us nodules Subcutaneo us nodules Disease Active 03-31 00:00: 00 [facility] Bilateral knee pain Bilateral knee pain Disease Active 10-10 00:00: 00 [facility] Bilateral knee pain Bilateral knee pain Disease Active 10-10 00:00: 00 [facility] [id number] Pain, joint, hand, left Problem Active [facility] [id number] Primary osteoarthr itis of left hip Problem Active [facility] [id number] Trigger finger, right ring finger Problem Active [facility] [id number] Pain, joint, hand, right Problem Active [facility] [id number] Pain, joint, hip, right Problem [facility] [id number] Arthritis of right hip Problem [facility] [id number] Trochanter ic bursitis of left hip Problem [facility] [id number] Status post total replacemen t of left hip Problem [facility] Allergies, Adverse Reactions, Alerts Allergy Name Allergy Type Status Severity Reaction(s) Onset Date Inactive Date Treating Clinician Comments Source Codeine Propensi ty to adverse reaction s Active Nausea And Vomiting 09-07 00:00: 00 [facility] CODEINE DRUG INGREDI Active N/V 09-07 00:00: 00 [facility] codeine codeine Active Unknown [facility] Social History Social Habit Start Date Stop Date Quantity Comments Source History of Tobacco Use [facility] Sex Assigned At [facility] History SDOH Alcohol Std Drinks [facility] History SDOH Alcohol Binge [facility] Gender identity [facility] Exposure to SARS-CoV-2 (event) 2022-12-17 00:00:00 2022-12-27 08:47:[address] [facility] History of Social function 2022-09-23 00:00:00 2022-09-23 00:00:00 [facility] History SDOH Food Worry 2022-06-13 00:00:00 2022-06-13 00:00:[address] [facility] History SDOH Food Scarcity 2022-06-13 00:00:00 2022-06-13 00:00:[address] [facility] History SDOH Transport Med 2022-06-13 00:00:00 2022-06-13 00:00:[address] [facility] History SDOH Transport Non-Med 2022-06-13 00:00:00 2022-06-13 00:00:[address] [facility] Tobacco use and exposure 2022-06-11 00:00:00 2022-06-11 00:00:00 Smokeless tobacco non-user [facility] Education - What is the highest level of school you have completed or the highest degree you have received? 2022-06-10 00:00:00 2022-06-10 00:00:00 Some college, no degree [facility] Alcohol intake 2020-12-18 00:00:00 2020-12-18 00:00:00 Lifetime non-drinker (finding) [facility] History SDOH Alcohol Frequency 2020-12-18 00:00:00 2020-12-18 00:00:00 1 [facility] Smoking Status Start Date Stop Date Source Never smoked tobacco [facility] Medications Ordered Medication Name Filled Medication Name Start Date Stop Date Current Medication? Ordering Clinician Indication Dosage Frequency Signature (SIG) Comments Components Source amitriptyli ne (ELAVIL) tablet 150 mg 08-30 15:00: 00 Yes 150mg 150 mg, Oral, DAILY, First dose on 08/30/23 at 0900, Until Discontinu ed, Routine [facility] enoxaparin (LOVENOX) injection 40 mg 08-30 15:00: 00 Yes 40mg 40 mg, Subcutaneo us, DAILY, First dose on 08/30/23 at 0900, Until Discontinu ed, Routine [facility] amitriptyli ne 150 mg tablet 08-30 14:20: 33 Yes amitriptyl ine 150 mg tablet Take 1 tablet every day by oral route for 30 days. [facility] cyclobenzap rine 10 mg tablet 08-30 14:20: 33 Yes 10mg Take 1 tablet by mouth in the morning and 1 tablet in the evening. [facility] celecoxib 200 mg capsule 08-30 14:20: 33 Yes 200mg Take 1 capsule by mouth in the morning and 1 capsule in the evening. [facility] semaglutide (OZEMPIC) 1 mg/dose (4 mg/3 mL) PnIj 08-30 14:20: 33 Yes 1.25mg inject 1.25 mg under the skin weekly. [facility] cyclobenzap rine (FLEXERIL) tablet 10 mg 08-30 14:00: 00 Yes 10mg 10 mg, Oral, BID, First dose on Fri08/30/23 at 0800, Until Discontinu ed, Routine [facility] cyclobenzap rine (FLEXERIL) tablet 10 mg 08-30 08:34: 16 Yes 10mg 10 mg, Oral, TIDPRN, Starting on Fri08/30/23 at 0234, Until Discontinu ed, Routine, Muscle Spasms [facility] Sliding Scale Insulin - Lispro (HumaLOG) 08-30 03:00: 00 Yes Subcutaneo us, TID MEALS+HS, First dose on Fri08/29/23 at 2100, Until Discontinu ed, Routine [facility] pantoprazol e (PROTONIX) injection 40 mg 08-30 02:00: 00 Yes 40mg 40 mg, Slow IV Push, Q24H, First dose on Fri08/29/23 at 2000, Until Discontinu ed [facility] NaCl 0.9% (NS) IV infusion 1,000 mL 08-30 01:15: 00 Yes 1000mL at 75 mL/hr, IV Infusion, CONTINUOUS , Starting on Fri08/29/23 at 1915, Until Discontinu ed, Routine [facility] iopamidol (ISOVUE 370-500 mL) injection 75 mL 08-30 00:15: 00 08-30 00:15 :00 No [id number] 75mL 75 mL, Intravenou s, ONCE, 1 dose, On Fri08/29/23 at 1815, Routine [facility] proMETHazin e (PHENERGAN) 12.5 mg in NS 50 mL IV piggyback (CNR) 08-30 00:01: 07 Yes 12.5mg 12.5 mg, IV Piggyback, at 200 mL/hr Administer over 15 Minutes, Q4HPRN, Starting on Fri08/29/23 at 1801, Until Discontinu ed, Routine, N/V unresponsi ve to Ondansetro n [facility] ondansetron (ZOFRAN (PF)) injection 4 mg 08-30 00:00: 10 Yes 4mg 4 mg, Slow IV Push, Q6HPRN, Starting on Fri08/29/23 at 1800, Until Discontinu ed, Routine, Nausea and Vomiting (N/V) [facility] glucagon (GLUCAGEN DIAGNOSTIC KIT) injection 1 mg 08-29 23:59: 42 Yes 1mg 1 mg, Intramuscu lar, PRN, Starting on Fri08/29/23 at 1759, Until Discontinu ed, KUNAL, Blood Glucose < or = 70 mg/dL and patient is NPO, unable to swallow or has mental changes. [facility] dextrose 50 % in water (D50W) injection 25 mL 08-29 23:59: 42 Yes 25mL 25 mL, Slow IV Push, PRN, Starting on Fri08/29/23 at 1759, Until Discontinu ed, KUANL, Blood Glucose < or = 70 mg/dL and patient is NPO, unable to swallow or has mental status changes. [facility] FENTanyl PF (SUBLIMAZE (PF)) injection 25 mcg 08-29 23:59: 16 08-30 23:58 :16 No 25ug 25 mcg, Slow IV Push, Q3HPRN, Starting on Fri08/29/23 at 1759, Until 08/30/23 at 1758, Routine, Pain (scale 7-10) [facility] acetaminoph en (TYLENOL) tablet 650 mg 08-29 23:59: 10 Yes 650mg 650 mg, Oral, Q6HPRN, Starting on Fri08/29/23 at 1759, Until Discontinu ed, Routine, Pain (scale 1-3) [facility] haloperidol lactate (HALDOL) injection 2.5 mg 08-29 22:30: 00 08-30 00:08 :00 No 2.5mg 2.5 mg, Intravenou s, ONCE, 1 dose, On Fri08/29/23 at 1630, STAT [facility] morpHINE (4 mg/mL) injection 4 mg 08-29 21:00: 00 08-29 20:55 :00 No 4mg 4 mg, Slow IV Push, ONCE, 1 dose, On Fri08/29/23 at 1500, STAT [facility] Fesoterodin e (TOVIAZ) 4 mg tablet 08-29 20:23: 58 08-29 00:00 :00 No Toviaz 4 mg tablet,ext ended release [facility] dapaglifloz in-metformi n (XIGDUO XR) 10-500 mg TBph 08-29 20:23: 58 08-29 00:00 :00 No Xigduo XR 10 mg-500 mg tablet,ext ended release Take 1 tablet every day by oral route for 30 days. [facility] DULoxetine 60 mg capsule 08-29 20:23: 58 08-29 00:00 :00 No 60mg Take 1 capsule by mouth in the morning. [facility] proMETHazin e (PHENERGAN) 12.5 mg in NS 50 mL IV piggyback (CNR) 08-29 20:00: 00 08-29 20:48 :00 No 12.5mg 12.5 mg, IV Piggyback, at 200 mL/hr Administer over 15 Minutes, ONCE, 1 dose, On Fri08/29/23 at 1400, KUNAL [facility] iopamidol (ISOVUE 370-500 mL) injection 100 mL 08-29 20:00: 00 08-29 20:00 :00 No [id number] 100mL 100 mL, Intravenou s, ONCE, 1 dose, On Fri08/29/23 at 1400, Routine [facility] morpHINE (4 mg/mL) injection 4 mg 08-29 18:30: 00 08-29 18:45 :00 No 4mg 4 mg, Slow IV Push, ONCE, 1 dose, On Fri08/29/23 at 1230, STAT [facility] ketorolac (TORADOL) injection 30 mg 08-29 17:45: 00 08-29 16:48 :00 No 30mg 30 mg, Slow IV Push, ONCE, 1 dose, On Fri08/29/23 at 1145, Routine [facility] NaCl 0.9% (NS) bolus infusion 1,000 mL 08-29 17:30: 00 08-29 17:42 :00 No 1000mL at 999 mL/hr, 1,000 mL, IV Infusion, ONCE, 1 dose, [facility] Fri08/29/23 at 1130[facility] ([facility]ID (PF[facility] 20 mg 08-29 16:45: 00 08-29 16:45 :00 No 20mg 20 mg, Slow IV Push, ONCE, 1 dose, On Fri08/29/23 at 1045, [facility] ondansetron (ZOFRAN (PF)) injection 4 mg 08-29 16:45: 00 08-29 16:44 :00 No 4mg 4 mg, Slow IV Push, ONCE, 1 dose, On Fri08/29/23 at 1045, [facility] HYDROcodone -Acetaminop hen 7.5-325 MG HYDROcodone -Acetaminop hen 7.5-325 MG 9 00:00: 00 No 1{table t_as_ne eded} QID [...] 00:00: 00 No 5mL [facility] Kenalog (Triamcinol one) Kenalog (Triamcinol one) 3-0 6-12 00:00: 00 No [facility]mL [facility] Lidocaine Lidocaine 3-0 6-12 00:00: 00 No 5mL [facility] Kenalog (Triamcinol one) Kenalog (Triamcinol one) 0 01-13 00:00: 00 No 2mL [facility] Lidocaine Lidocaine 0 01-13 00:00: 00 No 5mL [facility] Kenalog (Triamcinol one) Kenalog (Triamcinol one) 0 - 00:00: 00 No 2mL [facility] Lidocaine Lidocaine 0 01-13 00:00: 00 No 5mL [facility] Kenalog (Triamcinol one) Kenalog (Triamcinol one) 0 01-13 00:00: 00 No 2mL [facility] Lidocaine Lidocaine 0 01-13 00:00: 00 No 5mL [facility] Kenalog (Triamcinol one) Kenalog (Triamcinol one) 0 01-13 00:00: 00 No 2mL [facility] Lidocaine Lidocaine 0 01-13 00:00: 00 No 5mL [facility] Kenalog (Triamcinol one) Kenalog (Triamcinol one) 0 01-13 00:00: 00 No 2mL [facility] Lidocaine Lidocaine 0 01-13 00:00: 00 No 5mL [facility] Kenalog (Triamcinol one) Kenalog (Triamcinol one) 0 01-13 00:00: 00 No 2mL [facility] Lidocaine Lidocaine 0 01-13 00:00: 00 No 5mL [facility] Kenalog (Triamcinol one) Kenalog (Triamcinol one) 0 01-13 00:00: 00 No 2mL [facility] Lidocaine Lidocaine 2022-0 01-13 00:00: 00 No 5mL [facility] Kenalog (Triamcinol one) Kenalog (Triamcinol one) 2022-0 - 00:00: 00 No 2mL [facility] Lidocaine Lidocaine 01-13 00:00: 00 No 5mL [facility] Kenalog (Triamcinol one) Kenalog (Triamcinol one) 01-13 00:00: 00 No 2mL [facility] atorvastati n 10 mg tablet 12-27 09:06: 57 12-27 00:00 :00 No 10mg Take 1 tablet by mouth in the morning. [facility] amitriptyli ne 150 mg tablet 12-27 08:56: 31 Yes amitriptyl ine 150 mg tablet Take 1 tablet every day by oral route for 30 days. [facility] Fesoterodin e (TOVIAZ) 4 mg tablet 12-27 08:56: 31 Yes Toviaz 4 mg tablet,ext ended release [facility] dapaglifloz in-metformi n (XIGDUO XR) 10-500 mg TBph 12-27 08:56: 31 Yes Xigduo XR 10 mg-500 mg tablet,ext ended release Take 1 tablet every day by oral route for 30 days. [facility] cyclobenzap rine 10 mg tablet 12-27 08:56: 31 Yes 10mg Take 1 tablet by mouth in the morning and 1 tablet in the evening. [facility] DULoxetine 60 mg capsule 12-27 08:56: 31 Yes 60mg Take 1 capsule by mouth in the morning. [facility] celecoxib 200 mg capsule 12-27 08:56: 31 Yes 200mg Take 1 capsule by mouth in the morning and 1 capsule in the evening. [facility] semaglutide (OZEMPIC) 1 mg/dose (4 mg/3 mL) PnIj 12-27 08:56: 31 Yes 1.25mg inject 1.25 mg under the skin weekly. [facility] traMADoL 50 mg tablet 12-21 00:00: 00 08-29 00:00 :00 No TAKE 1 TABLET BY MOUTH EVERY 8 HOURS NEEDED FOR 10 DAYS [facility] clonazePAM 0.5 mg tablet -19 00:00: 00 08-29 00:00 :00 No TAKE 1 TABLET BY MOUTH THREE TIMES A DAY NEEDED FOR 15 DAYS [facility] ondansetron (ZOFRAN (PF)) injection 4 mg 09-23 14:14: 37 09-23 14:16 :00 No 4mg 4 mg, Slow IV Push, PRN, 1 dose, Starting on Fri09/23/22 at 0814, Until Fri09/23/22 at 0816, Routine, Nausea and Vomiting (N/V), PACU [facility] FENTanyl PF (SUBLIMAZE (PF)) injection 25 mcg 09-23 14:14: 37 09-23 17:13 :49 No 25ug 25 mcg, Slow IV Push, Q5MIN PRN, 4 doses, Starting on Fri09/23/22 at 0814, Until Fri09/23/22 at 1113, Routine, Pain (scale 4-6), PACU [facility] triamcinolo ne acetonide (KENALOG) injection 09-23 13:55: 00 09-23 17:13 :49 No PRN, Starting on Fri09/23/22 at 0755, Until Fri09/23/22 at 1113, Routine, Intra-op [facility] bupivacaine (preserv free) 0.5% (SENSORCAIN E MPF) 0.5 % (5 mg/mL) injection 09-23 13:55: 00 09-23 17:13 :49 No PRN, Starting on Fri09/23/22 at 0755, Until Fri09/23/22 at 1113, Routine, Intra-op [facility] triamcinolo ne acetonide (KENALOG) injection 09-23 13:53: 00 09-23 17:13 :49 No PRN, Starting on Fri09/23/22 at 0753, Until Fri09/23/22 at 1113, Routine, Intra-op [facility] bupivacaine (preserv free) 0.5% (SENSORCAIN E MPF) 0.5 % (5 mg/mL) injection 09-23 13:53: 00 09-23 17:13 :49 No PRN, Starting on Fri09/23/22 at 0753, Until Fri09/23/22 at 1113, Routine, Intra-op [facility] lactated ringers IV infusion 1,000 mL 09-23 12:45: 00 09-23 13:02 :00 No 1000mL at 42 mL/hr, 1,000 mL, IV Infusion, ONCE, 1 dose, On Fri09/23/22 at 0645, Routine, DSU Pre-op [facility] amitriptyli ne 150 mg tablet 09-23 09:08: 45 Yes amitriptyl ine 150 mg tablet Take 1 tablet every day by oral route for 30 days. [facility] Fesoterodin e (TOVIAZ) 4 mg tablet 09-23 09:08: 45 Yes Toviaz 4 mg tablet,ext ended release [facility] dapaglifloz in-metformi n (XIGDUO XR) 10-500 mg TBph 09-23 09:08: 45 Yes Xigduo XR 10 mg-500 mg tablet,ext ended release Take 1 tablet every day by oral route for 30 days. [facility] cyclobenzap rine 10 mg tablet 09-23 09:08: 45 Yes 10mg Take 10 mg by mouth 2 (two) times daily. [facility] DULoxetine 60 mg capsule 09-23 09:08: 45 Yes 60mg Take 60 mg by mouth daily. [facility] atorvastati n 10 mg tablet 09-23 09:08: 45 Yes 10mg Take 10 mg by mouth in the morning. [facility] celecoxib 200 mg capsule 09-23 09:08: 45 Yes 200mg Take 200 mg by mouth in the morning and 200 mg in the evening. [facility] semaglutide (OZEMPIC) 1 mg/dose (4 mg/3 mL) PnIj 09-23 09:08: 45 Yes 1.25mg inject 1.25 mg under the skin weekly. [facility] aspirin 325 mg tablet 09-23 00:00: 00 10-22 04:59 :00 No [id number] 325mg Take 1 tablet by mouth in the morning and 1 tablet in the evening. Take with meals. Do all this for 28 days. [facility] semaglutide (OZEMPIC) 1 mg/dose (4 mg/3 mL) [facility] 09-17 13:39: 54 Yes 1.25mg inject 1.25 mg under the skin weekly. [facility] atorvastati n 10 mg tablet 09-17 13:19: 59 Yes 10mg Take 10 mg by mouth in the morning. [facility] celecoxib 200 mg capsule 09-17 13:19: 59 Yes 200mg Take 200 mg by mouth in the morning and 200 mg in the evening. [facility] amitriptyli ne 150 mg tablet 09-17 13:09: 47 Yes amitriptyl ine 150 mg tablet Take 1 tablet every day by oral route for 30 days. [facility] Fesoterodin e (TOVIAZ) 4 mg tablet 09-17 13:09: 47 Yes Toviaz 4 mg tablet,ext ended release [facility] dapaglifloz in-metformi n (XIGDUO XR) 10-500 mg [facility] 09-17 13:09: 47 Yes Xigduo XR 10 mg-500 mg tablet,ext ended release Take 1 tablet every day by oral route for 30 days. [facility] cyclobenzap rine 10 mg tablet 09-17 13:09: 47 Yes 10mg Take 10 mg by mouth 2 (two) times daily. [facility] DULoxetine 60 mg capsule 09-17 13:09: 47 Yes 60mg Take 60 mg by mouth daily. [facility] cefTRIAXone (ROCEPHIN) 1,000 mg in [...] Urine
D uration of Therapy: 7 days [facility] lactobacill us acidophilus 2021-08 00:00: 00 07-14 05:59 :00 No [id number] .5mg Take 1 tablet by mouth in the morning for 30 days. [facility] polyethylen e glycol 3350 17 gram powder 2021-08 00:00: 00 07-14 05:59 :00 No [id number] 17g Take 1 Packet by mouth in the morning for 30 days. [facility] sennosides- docusate sodium (SENOKOT-S) 8.6-50 mg per tablet 1 tablet 2021-08 16:15: 00 Yes 1{tbl} 1 tablet, Oral, DAILY, First dose on Fri06/12/22 at 1015, Until Discontinu ed, Routine [facility] polyethylen e glycol 3350 powder 17 g 2021-08 16:15: 00 Yes 17g 17 g, Oral, DAILY, First dose on Fri06/12/22 at 1015, Until Discontinu ed, Routine [facility] amitriptyli ne 150 mg tablet 2021-08 16:08: 30 Yes amitriptyl ine 150 mg tablet Take 1 tablet every day by oral route for 30 days. [facility] Fesoterodin e (TOVIAZ) 4 mg tablet 2021-08 16:08: 30 Yes Toviaz 4 mg tablet,ext ended release [facility] dapaglifloz in-metformi n (XIGDUO XR) 10-[facility] 2021-08 16:08: 30 Yes Xigduo XR 10 mg-500 mg tablet,ext ended release Take 1 tablet every day by oral route for 30 days. [facility] cyclobenzap rine 10 mg tablet 2021-08 16:08: 30 Yes 10mg Take 10 mg by mouth 2 (two) times daily. [facility] DULoxetine 60 mg capsule 2021-08 16:08: 30 Yes 60mg Take 60 mg by mouth daily. [facility] proMETHazin e 25 mg tablet 2021-08 00:00: 00 09-17 00:00 :00 No [id number] 25mg Take 1 tablet by mouth every 4 (four) hours as needed for N/V unresponsi ve to Ondansetro n. [facility] docusate 100 mg capsule 2021-08 00:00: 00 07-13 05:59 :00 No [id number] 100mg Take 1 capsule by mouth in the morning and 1 capsule in the evening. Do all this for 30 days. [facility] HYDROcodone -acetaminop hen 5-325 mg tablet 2021-08 00:00: 00 06-20 05:59 :00 No [id number] 1{tbl} Take 1 tablet by mouth every 6 (six) hours as needed for Pain (scale 7-10) for up to 7 days. Indication s: acute pain [facility] ciprofloxac in HCl 500 mg tablet 2021-08 00:00: 00 06-20 05:59 :00 No [id number] 500mg Take 1 tablet by mouth every 12 (twelve) hours for 7 days. [facility] metroNIDAZO LE 250 mg tablet 2021-08 00:00: 00 06-20 05:59 :00 No [id number] 500mg Take 2 tablets by mouth every 12 (twelve) hours for 7 days. [facility] proMETHazin e (PHENERGAN) 25 mg in NaCl 0.9% (NS) 50 mL IV piggyback 2021-08 21:26: 59 Yes 25mg 25 mg, IV Piggyback, Q4HPRN, Starting on Fri06/11/22 at 1526, Until Discontinu ed, Routine, Nausea and Vomiting (N/V), N/V unresponsi ve to Ondansetro n [facility] acetaminoph en (TYLENOL) tablet 650 mg 2021-08 15:55: 26 Yes 650mg 650 mg, Oral, Q6HPRN, Starting on Fri06/11/22 at 0955, Until Discontinu ed, Routine, Pain (scale 1-3) [facility] enoxaparin (LOVENOX) injection 40 mg 2021-08 15:00: 00 Yes 40mg 40 mg, Subcutaneo us, DAILY, First dose on Fri06/11/22 at 0900, Until Discontinu ed, Routine [facility] DULoxetine (CYMBALTA) capsule 60 mg 2021-08 15:00: 00 Yes 60mg 60 mg, Oral, DAILY, First dose on Fri06/11/22 at 0900, Until Discontinu ed, Routine [facility] lactobacill us acidophilus tablet 0.5 mg 2021-08 15:00: 00 Yes .5mg 0.5 mg, Oral, DAILY, First dose on Fri06/11/22 at 0900, Until Discontinu ed, Routine [facility] Sliding Scale Insulin - Lispro (HumaLOG) + Fsbg Testing 2021-08 14:00: 00 Yes Subcutaneo us, TID MEALS, First dose on Fri06/11/22 at 0800, Until Discontinu ed, Routine [facility] morpHINE (4 mg/mL) injection 4 mg 2021-08 12:52: 08 Yes 4mg 4 mg, Slow IV Push, Q4HPRN, Starting on Fri06/11/22 at 0652, Until Discontinu ed, Routine, Pain (scale 7-10) [facility] cefTRIAXone (ROCEPHIN) 1,000 mg in [...] Urine
D uration of Therapy: 7 days [facility] docusate (COLACE) capsule 100 mg 2021-08 06:15: 00 Yes 100mg 100 mg, Oral, BID, First dose on Fri06/11/22 at 0015, Until Discontinu ed, Routine [facility] gabapentin (NEURONTIN) capsule 200 mg 2021-08 06:15: 00 Yes 200mg 200 mg, Oral, BID, First dose on Fri06/11/22 at 0015, Until Discontinu ed, Routine [facility] cyclobenzap rine (FLEXERIL) tablet 10 mg 2021-08 06:15: 00 Yes 10mg 10 mg, Oral, BID, First dose on Fri06/11/22 at 0015, Until Discontinu ed, Routine [facility] ondansetron (ZOFRAN (PF)) injection 4 mg 2021-08 06:06: 47 Yes 4mg 4 mg, Slow IV Push, Q6HPRN, Starting on Fri06/11/22 at 0006, Until Discontinu ed, Routine, Nausea and Vomiting (N/V) [facility] traMADoL (ULTRAM) tablet 50 mg 2021-08 06:06: 37 06-13 06:05 :37 No 50mg 50 mg, Oral, Q8HPRN, Starting on Fri06/11/22 at 0006, Until Fri06/13/22 at 0005, Routine, Pain (scale 4-6) [facility] FENTanyl PF (SUBLIMAZE (PF)) injection 50 mcg 2021-08 05:58: 16 06-11 12:52 :20 No 50ug 50 mcg, Slow IV Push, Q4HPRN, Starting on Fri06/10/22 at 2358, Until Fri06/11/22 at 0652, Routine, Pain (scale 7-10) [facility] NaCl 0.9% (NS) IV infusion 1,000 mL 2021-08 04:30: 00 Yes 1000mL at 100 mL/hr, IV Infusion, CONTINUOUS , Starting on Fri06/10/22 at 2230, Until Discontinu ed, Routine [facility] NaCl 0.9% (NS) bolus infusion 1,500 mL 2021-08 03:45: 00 06-11 03:33 :01 No 1500mL at 999 mL/hr, 1,500 mL, IV Infusion, ONCE, 1 dose, On Fri06/10/22 at 2145, KUNAL [facility] ondansetron (ZOFRAN (PF)) injection 4 mg 2021-08 03:17: 24 06-11 06:07 :04 No 4mg 4 mg, Slow IV Push, Q6HPRN, Starting on Fri06/10/22 at 2117, Until Fri06/11/22 at 0007, KUNAL, Nausea and Vomiting (N/V) [facility] metoclopram raven HCl (REGLAN) injection 10 mg 2021-08 03:17: 15 06-11 21:27 :54 No 10mg 10 mg, Slow IV Push, TIDPRN, Starting on Fri06/10/22 at 2117, Until Fri06/11/22 at 1527, Routine, Nausea and Vomiting (N/V) [facility] morpHINE (4 mg/mL) injection 4 mg 2021-08 03:16: 49 06-11 05:58 :48 No 4mg 4 mg, Slow IV Push, Q4HPRN, Starting on Fri06/10/22 at 2116, Until Fri06/10/22 at 2358, Routine, Pain (scale 7-10) [facility] oxybutynin 10 mg 24 hr tablet 2021-08 00:05: 07 06-11 00:00 :00 No oxybutynin chloride ER 10 mg tablet,ext ended release 24 hr [facility] semaglutide (OZEMPIC) 0.25 mg or 0.5 mg(2 mg/1.5 mL) PnIj 2021-08 00:05: 07 06-11 00:00 :00 No .25mg 0.25 mg. [facility] semaglutide , weight loss, (WEGOVY) 0.25 mg/0.5 mL PnIj SC injection 2021-08 00:05: 07 06-11 00:00 :00 No Wegovy 0.25 mg/0.5 mL subcutaneo us pen injector 0.25 mg SC qwk x4wk, then 0.5 mg SC qwk x4wk, then 1 mg SC qwk x4wk, then 1.7 mg SC qwk x4wk, then 2.4 mg SC qwk [facility] clindamycin 300 mg capsule 2021-08 00:05: 07 06-11 00:00 :00 No clindamyci n HCl 300 mg capsule Take 1 capsule 3 times a day by oral route for 10 days. [facility] NaCl 0.9% (NS) bolus infusion 500 mL 2021-08 00:00: 00 06-11 00:17 :00 No 500mL at 999 mL/hr, 500 mL, IV Infusion, ONCE, 1 dose, On Fri06/10/22 at 1800, STAT [facility] proMETHazin e (PHENERGAN) 25 mg in NaCl 0.9% (NS) 50 mL IV piggyback 2021-08 00:00: 00 06-11 00:06 :00 No 25mg 25 mg, IV Piggyback, ONCE, 1 dose, On Fri06/10/22 at 1800, KUNAL [facility] ondansetron (ZOFRAN (PF)) injection 4 mg 2021-08 23:15: 00 06-10 22:25 :00 No 4mg 4 mg, Slow IV Push, ONCE, 1 dose, On Fri06/10/22 at 1715, KUNAL [facility] morpHINE (4 mg/mL) injection 4 mg 2021-08 22:15: 00 06-10 21:21 :00 No 4mg 4 mg, Slow IV Push, ONCE, 1 dose, On Fri06/10/22 at 1615, STAT [facility] cefTRIAXone (ROCEPHIN) 1,000 mg in NaCl 0.9% (NS) 50 mL MINI-BAG 2021-08 20:15: 00 06-10 20:51 :00 No 1000mg 1,000 mg, IV Piggyback, ONCE, 1 dose, On Fri06/10/22 at 1415, Administer over 30 Minutes, 50 mL
Reas on for Anti-Infec tive: Documented Infection< br>Documen billy Infection Site: Urine
D uration of Therapy: 7 days [facility] ketorolac (TORADOL) injection 30 mg 2021-08 20:00: 00 06-10 19:01 :00 No 30mg 30 mg, Slow IV Push, ONCE, 1 dose, On Fri06/10/22 at 1400, Routine [facility] morpHINE (4 mg/mL) injection 4 mg 2021-08 19:30: 00 06-10 19:29 :00 No 4mg 4 mg, Slow IV Push, ONCE, 1 dose, On Fri06/10/22 at 1330, STAT [facility] ondansetron (ZOFRAN (PF)) injection 4 mg 2021-08 19:30: 00 06-10 19:29 :00 No 4mg 4 mg, Slow IV Push, ONCE, 1 dose, On Fri06/10/22 at 1330, KUNAL [facility] FENTanyl PF (SUBLIMAZE (PF)) injection 50 mcg 2021-08 18:01: 00 06-10 18:02 :00 No 50ug 50 mcg, Slow IV Push, ONCE, 1 dose, On Fri06/10/22 at 1215, Routine [facility] cefpodoxime 100 mg tablet 2021-08 00:00: 00 06-12 00:00 :00 No [id number] 100mg Take 1 tablet by mouth in the morning and 1 tablet in the evening. Do all this for 7 days. [facility] amitriptyli ne 150 mg tablet 01-14 09:33: 45 Yes amitriptyl ine 150 mg tablet Take 1 tablet every day by oral route for 30 days. [facility] Fesoterodin e (TOVIAZ) 4 mg tablet 01-14 09:33: 45 Yes Toviaz 4 mg tablet,ext ended release [facility] oxybutynin 10 mg 24 hr tablet 01-14 09:33: 45 Yes oxybutynin chloride ER 10 mg tablet,ext ended release 24 hr [facility] semaglutide (OZEMPIC) 0.25 mg or 0.5 mg(2 mg/1.5 mL) PnIj 01-14 09:33: 45 Yes .25mg 0.25 mg. [facility] semaglutide , weight loss, (WEGOVY) 0.25 mg/0.5 mL PnIj SC injection 01-14 09:33: 45 Yes Wegovy 0.25 mg/0.5 mL subcutaneo us pen injector 0.25 mg SC qwk x4wk, then 0.5 mg SC qwk x4wk, then 1 mg SC qwk x4wk, then 1.7 mg SC qwk x4wk, then 2.4 mg SC qwk [facility] dapaglifloz in-metformi n (XIGDUO XR) 10-500 mg [facility] 01-14 09:33: 45 Yes Xigduo XR 10 mg-500 mg tablet,ext ended release Take 1 tablet every day by oral route for 30 days. [facility] clindamycin 300 mg capsule 01-14 09:33: 45 Yes clindamyci n HCl 300 mg capsule Take 1 capsule 3 times a day by oral route for 10 days. [facility] cyclobenzap rine 10 mg tablet 01-14 09:33: 45 Yes 10mg Take 10 mg by mouth 2 (two) times daily. [facility] DULoxetine 60 mg capsule 01-14 09:33: 45 Yes 60mg Take 60 mg by mouth daily. [facility] gabapentin 100 mg capsule 11-29 00:00: 00 Yes 100mg Take 1 capsule by mouth in the morning and 1 capsule in the evening. [facility] gabapentin 100 mg capsule 11-29 00:00: 00 Yes 800mg Take 8 capsules by mouth in the morning and 8 capsules at noon and 8 capsules in the evening. [facility] lidocaine-p rilocaine 2.5-2.5 % cream 10-01 00:00: 00 Yes APPLY TO AFFECTED AREA EVERY DAY NEEDED [facility] eszopiclone 1 mg tablet 10-01 00:00: 00 09-17 00:00 :00 No 1mg Take 1 mg by mouth daily. [facility] methylPREDN ISolone (MEDROL, LUNA,) 4 mg tablets 09-24 00:00: 00 06-11 00:00 :00 No [id number] 84mg Take 21 tablets by mouth SEE-INSTRU CTIONS. follow package directions [facility] methylPREDN ISolone (MEDROL, LUNA,) 4 mg tablets 2020-08 0 00:00: 00 06-11 00:00 :00 No [id number] 84mg Take 21 tablets by mouth SEE-INSTRU CTIONS. follow package directions [facility] methocarbam ol (Robaxin) 750 MG tablet 12-18 00:00: 00 Yes [id number] 750mg [id number] 3D Take 1 tablet (750 mg total) by mouth 3 (three) times a day if needed for muscle spasms for up to 10 days. [facility] metFORMIN (Glucophage ) 1000 MG tablet 12-14 00:00: 00 Yes [facility] benzonatate 100 mg capsule 24 00:00: 00 06-11 00:00 :00 No [id number] 100mg Take 1 capsule by mouth 3 (three) times daily as needed for Cough. [facility] chlorphenir amine 4 mg tablet 0 24 00:00: 00 06-11 00:00 :00 No [id number] 4mg Take 1 tablet by mouth every 6 (six) hours as needed for Allergies or Runny nose. [facility] LIDOCAINE HCL 10MG/ML LIDOCAINE HCL 10MG/ML 0 18 00:00: 00 No .5mL [facility] Depo-Medrol (Methylpred nisolone) 40mg Depo-Medrol (Methylpred nisolone) 40mg 2019-0 18 00:00: 00 No .5mL [facility] LIDOCAINE HCL 10MG/ML LIDOCAINE HCL 10MG/ML 0 18 00:00: 00 No .5mL [facility] Depo-Medrol (Methylpred nisolone) 40mg Depo-Medrol (Methylpred nisolone) 40mg 0 18 00:00: 00 No .5mL [facility] LIDOCAINE HCL 10MG/ML LIDOCAINE HCL 10MG/ML 0 18 00:00: 00 No .5mL [facility] Depo-Medrol (Methylpred nisolone) 40mg Depo-Medrol (Methylpred nisolone) 40mg 0 18 00:00: 00 No .5mL [facility] LIDOCAINE HCL 10MG/ML LIDOCAINE HCL 10MG/ML 0 18 00:00: 00 No .5mL [facility] Depo-Medrol (Methylpred nisolone) 40mg Depo-Medrol (Methylpred nisolone) 40mg 2019-0 18 00:00: 00 No .5mL [facility] LIDOCAINE HCL 10MG/ML LIDOCAINE HCL 10MG/ML 0 6-18 00:00: 00 No .5mL [facility] Depo-Medrol (Methylpred nisolone) 40mg Depo-Medrol (Methylpred nisolone) 40mg 2019-0 -18 00:00: 00 No .5mL [facility] LIDOCAINE HCL 10MG/ML LIDOCAINE HCL 10MG/ML 0 618 00:00: 00 No .5mL [facility] Depo-Medrol (Methylpred nisolone) 40mg Depo-Medrol (Methylpred nisolone) 40mg 2019-0 618 00:00: 00 No .5mL [facility] LIDOCAINE HCL 10MG/ML LIDOCAINE HCL 10MG/ML 0 18 00:00: 00 No .5mL [facility] Depo-Medrol (Methylpred nisolone) 40mg Depo-Medrol (Methylpred nisolone) 40mg 2019-0 618 00:00: 00 No .5mL [facility] LIDOCAINE HCL 10MG/ML LIDOCAINE HCL 10MG/ML 0 618 00:00: 00 No .5mL [facility] Depo-Medrol (Methylpred nisolone) 40mg Depo-Medrol (Methylpred nisolone) 40mg 0 18 00:00: 00 No .5mL [facility] LIDOCAINE HCL 10MG/ML LIDOCAINE HCL 10MG/ML 0 6-18 00:00: 00 No .5mL [facility] Depo-Medrol (Methylpred nisolone) 40mg Depo-Medrol (Methylpred nisolone) 40mg 0 18 00:00: 00 No .5mL [facility] LIDOCAINE HCL 10MG/ML LIDOCAINE HCL 10MG/ML 0 18 00:00: 00 No .5mL [facility] Depo-Medrol (Methylpred nisolone) 40mg Depo-Medrol (Methylpred nisolone) 40mg 2019-0 18 00:00: 00 No .5mL [facility] loratadine 10 mg tablet 03-03 00:00: 00 Yes 10mg Take 1 tablet by mouth in the morning. [facility] metFORMIN 1,000 mg tablet 02-07 00:00: 00 09-17 00:00 :00 No TAKE 1 TABLET BY MOUTH TWICE A DAY NEEDED WITH MORNING AND EVENING MEAL [facility] famotidine 40 mg tablet 09-23 00:00: 00 09-17 00:00 :00 No 40mg Take 1 tablet by mouth daily. [facility] Meloxicam Meloxicam Yes Ronen Puga not defined [facility] Metformin HCl Metformin HCl Yes Ronen Puga not defined [facility] Naproxen Naproxen Yes Ronen Puga not defined [facility] Amoxicillin -Pot Clavulanate Amoxicillin -Pot Clavulanate Yes Ronen Puga not defined [facility] Hydrochloro thiazide Hydrochloro thiazide Yes Ronen Puga not defined [facility] Cyclobenzap rine HCl Cyclobenzap rine HCl Yes Ronen Puga not defined [facility] Vitamin D (Ergocalcif satya) Vitamin D (Ergocalcif satya) Yes Ronen Puga not defined [facility] Ferrous Sulfate Ferrous Sulfate Yes Ronen Puga not defined [facility] Amitriptyli ne HCl Amitriptyli ne HCl Yes Ronen Puga not defined [facility] Methocarbam ol Methocarbam ol Yes Ronen Puga not defined [facility] Ondansetron HCl Ondansetron HCl Yes Ronen Puga not defined [facility] BusPIRone HCl BusPIRone HCl Yes Ronen Puga not defined [facility] Diclofenac Sodium Diclofenac Sodium Yes Ronen Puga not defined [facility] Benzonatate Benzonatate Yes Faraz Puga not defined [facility] Gabapentin Gabapentin Yes Ronen Puga not defined [facility] Gabapentin Gabapentin No Gabapentin Gabapentin Gabapentin No Gabapentin Ketorolac Tromethamin e Ketorolac Tromethamin e No Ketorolac Tromethami ne Gabapentin Gabapentin No Gabapentin Gabapentin Gabapentin No Gabapentin Gabapentin Gabapentin No Gabapentin Gabapentin Gabapentin No Gabapentin Gabapentin Gabapentin No Gabapentin metFORMIN HCl metFORMIN HCl No metFORMIN HCl Gabapentin Gabapentin No Gabapentin Gabapentin Gabapentin No Gabapentin Immunizations Ordered Immunization Name Filled Immunization Name Date Status Comments Source Influenza Virus Vaccine Quad IM 3+ YRS 2021-06-24 00:00:[address] [facility] Influenza Virus Vaccine Quad IM 3+ YRS 2021-06-24 00:00:[address] [facility] Influenza Virus Vaccine Quad IM 3+ YRS 2021-06-24 00:00:[address] [facility] Influenza Virus Vaccine Quad IM 3+ YRS 2021-06-24 00:00:[address] [facility] Influenza Virus Vaccine Quad IM 3+ YRS 2021-06-24 00:00:[address] [facility] Influenza Virus Vaccine Quad IM 3+ YRS 2021-06-24 00:00:[address] [facility] Influenza Virus Vaccine Quad IM 3+ YRS 2021-06-24 00:00:[address] [facility] Influenza Virus Vaccine Quad IM 3+ YRS 2021-06-24 00:00:[address] [facility] Influenza Virus Vaccine Quad IM 3+ YRS 2021-06-24 00:00:[address] [facility] Influenza Virus Vaccine Quad IM 3+ YRS 2021-06-24 00:00:[address] [facility] Influenza Virus Vaccine Quad IM 3+ YRS 2021-06-24 00:00:[address] [facility] Influenza Virus Vaccine Quad IM 3+ YRS 2021-06-24 00:00:[address] [facility] Influenza Virus Vaccine Quad IM 3+ YRS 2021-06-24 00:00:[address] [facility] Influenza Virus Vaccine Quad IM 3+ YRS 2021-06-24 00:00:[address] [facility] Influenza Virus Vaccine Quad IM 3+ YRS 2021-06-24 00:00:[address] [facility] Influenza Virus Vaccine Quad IM 3+ YRS 2021-06-24 00:00:[address] [facility] Influenza Virus Vaccine Quad IM 3+ YRS 2021-06-24 00:00:[address] [facility] Influenza Virus Vaccine Quad IM 3+ YRS 2021-06-24 00:00:[address] [facility] Influenza Virus Vaccine Quad IM 3+ YRS 2021-06-24 00:00:[address] [facility] Influenza Virus Vaccine Quad IM 3+ YRS 2021-06-24 00:00:[address] [facility] Influenza Virus Vaccine Quad IM 3+ YRS 2021-06-24 00:00:[address] [facility] Influenza Virus Vaccine Quad IM 3+ YRS 2021-06-24 00:00:[address] [facility] Influenza Virus Vaccine Quad IM 3+ YRS 2021-06-24 00:00:[address] [facility] SARS-COV-2 COVID-19 PFIZER VACCINE 2021-04-23 00:00:[address] [facility] SARS-COV-2 COVID-19 ALY/J&J VACCINE 2021-04-23 00:00:[address] [facility] SARS-COV-2 COVID-19 PFIZER VACCINE 2021-04-23 00:00:[address] [facility] SARS-COV-2 COVID-19 ALY/J&J VACCINE 2021-04-23 00:00:[address] [facility] SARS-COV-2 COVID-19 PFIZER VACCINE 2021-04-23 00:00:[address] [facility] SARS-COV-2 COVID-19 ALY/J&J VACCINE 2021-04-23 00:00:[address] [facility] SARS-COV-2 COVID-19 PFIZER VACCINE 2021-04-23 00:00:[address] [facility] SARS-COV-2 COVID-19 ALY/J&J VACCINE 2021-04-23 00:00:[address] [facility] SARS-COV-2 COVID-19 PFIZER VACCINE 2021-04-23 00:00:[address] [facility] SARS-COV-2 COVID-19 ALY/J&J VACCINE 2021-04-23 00:00:[address] [facility] SARS-COV-2 COVID-19 PFIZER VACCINE 2021-04-23 00:00:[address] [facility] SARS-COV-2 COVID-19 ALY/J&J VACCINE 2021-04-23 00:00:[address] [facility] SARS-COV-2 COVID-19 PFIZER VACCINE 2021-04-23 00:00:[address] [facility] SARS-COV-2 COVID-19 ALY/J&J VACCINE 2021-04-23 00:00:[address] [facility] SARS-COV-2 COVID-19 PFIZER VACCINE 2021-04-23 00:00:[address] [facility] SARS-COV-2 COVID-19 ALY/J&J VACCINE 2021-04-23 00:00:[address] [facility] SARS-COV-2 COVID-19 PFIZER VACCINE 2021-04-23 00:00:[address] [facility] SARS-COV-2 COVID-19 ALY/J&J VACCINE 2021-04-23 00:00:[address] [facility] SARS-COV-2 COVID-19 PFIZER VACCINE 2021-04-23 00:00:[address] [facility] SARS-COV-2 COVID-19 ALY/J&J VACCINE 2021-04-23 00:00:[address] [facility] SARS-COV-2 COVID-19 PFIZER VACCINE 2021-04-23 00:00:[address] [facility] SARS-COV-2 COVID-19 ALY/J&J VACCINE 2021-04-23 00:00:[address] [facility] SARS-COV-2 COVID-19 PFIZER VACCINE 2021-04-23 00:00:[address] [facility] SARS-COV-2 COVID-19 ALY/J&J VACCINE 2021-04-23 00:00:[address] [facility] SARS-COV-2 COVID-19 PFIZER VACCINE 2021-04-23 00:00:[address] [facility] SARS-COV-2 COVID-19 ALY/J&J VACCINE 2021-04-23 00:00:[address] [facility] SARS-COV-2 COVID-19 PFIZER VACCINE 2021-04-23 00:00:[address] [facility] SARS-COV-2 COVID-19 ALY/J&J VACCINE 2021-04-23 00:00:[address] [facility] SARS-COV-2 COVID-19 PFIZER VACCINE 2021-04-23 00:00:[address] [facility] SARS-COV-2 COVID-19 ALY/J&J VACCINE 2021-04-23 00:00:[address] [facility] SARS-COV-2 COVID-19 PFIZER VACCINE 2021-04-23 00:00:[address] [facility] SARS-COV-2 COVID-19 ALY/J&J VACCINE 2021-04-23 00:00:[address] [facility] SARS-COV-2 COVID-19 PFIZER VACCINE 2021-04-23 00:00:[address] [facility] SARS-COV-2 COVID-19 ALY/J&J VACCINE 2021-04-23 00:00:[address] [facility] SARS-COV-2 COVID-19 PFIZER VACCINE 2021-04-23 00:00:[address] [facility] SARS-COV-2 COVID-19 ALY/J&J VACCINE 2021-04-23 00:00:[address] [facility] SARS-COV-2 COVID-19 PFIZER VACCINE 2021-04-23 00:00:[address] [facility] SARS-COV-2 COVID-19 ALY/J&J VACCINE 2021-04-23 00:00:[address] [facility] SARS-COV-2 COVID-19 PFIZER VACCINE 2021-04-23 00:00:[address] [facility] SARS-COV-2 COVID-19 ALY/J&J VACCINE 2021-04-23 00:00:[address] [facility] SARS-COV-2 COVID-19 PFIZER VACCINE 2021-04-23 00:00:[address] [facility] SARS-COV-2 COVID-19 ALY/J&J VACCINE 2021-04-23 00:00:[address] [facility] SARS-COV-2 COVID-19 PFIZER VACCINE 2021-04-23 00:00:[address] [facility] SARS-COV-2 COVID-19 ALY/J&J VACCINE 2021-04-23 00:00:[address] [facility] SARS-COV-2 COVID-19 PFIZER VACCINE 2021-04-23 00:00:[address] [facility] SARS-COV-2 COVID-19 ALY/J&J VACCINE 2021-04-23 00:00:[address] [facility] SARS-COV-2 COVID-19 PFIZER VACCINE 2021-04-23 00:00:[address] [facility] SARS-COV-2 COVID-19 ALY/J&J VACCINE 2021-04-23 00:00:[address] [facility] SARS-COV-2 COVID-19 PFIZER VACCINE 2021-04-02 00:00:[address] [facility] SARS-COV-2 COVID-19 ALY/J&J VACCINE 2021-04-02 00:00:[address] [facility] SARS-COV-2 COVID-19 PFIZER VACCINE 2021-04-02 00:00:[address] [facility] SARS-COV-2 COVID-19 ALY/J&J VACCINE 2021-04-02 00:00:[address] [facility] SARS-COV-2 COVID-19 PFIZER VACCINE 2021-04-02 00:00:[address] [facility] SARS-COV-2 COVID-19 ALY/J&J VACCINE 2021-04-02 00:00:[address] [facility] SARS-COV-2 COVID-19 PFIZER VACCINE 2021-04-02 00:00:[address] [facility] SARS-COV-2 COVID-19 ALY/J&J VACCINE 2021-04-02 00:00:[address] [facility] SARS-COV-2 COVID-19 PFIZER VACCINE 2021-04-02 00:00:[address] [facility] SARS-COV-2 COVID-19 ALY/J&J VACCINE 2021-04-02 00:00:[address] [facility] SARS-COV-2 COVID-19 PFIZER VACCINE 2021-04-02 00:00:[address] [facility] SARS-COV-2 COVID-19 ALY/J&J VACCINE 2021-04-02 00:00:[address] [facility] SARS-COV-2 COVID-19 PFIZER VACCINE 2021-04-02 00:00:[address] [facility] SARS-COV-2 COVID-19 ALY/J&J VACCINE 2021-04-02 00:00:[address] [facility] SARS-COV-2 COVID-19 PFIZER VACCINE 2021-04-02 00:00:[address] [facility] SARS-COV-2 COVID-19 ALY/J&J VACCINE 2021-04-02 00:00:[address] [facility] SARS-COV-2 COVID-19 PFIZER VACCINE 2021-04-02 00:00:[address] [facility] SARS-COV-2 COVID-19 ALY/J&J VACCINE 2021-04-02 00:00:[address] [facility] SARS-COV-2 COVID-19 PFIZER VACCINE 2021-04-02 00:00:[address] [facility] SARS-COV-2 COVID-19 ALY/J&J VACCINE 2021-04-02 00:00:[address] [facility] SARS-COV-2 COVID-19 PFIZER VACCINE 2021-04-02 00:00:[address] [facility] SARS-COV-2 COVID-19 ALY/J&J VACCINE 2021-04-02 00:00:[address] [facility] SARS-COV-2 COVID-19 PFIZER VACCINE 2021-04-02 00:00:[address] [facility] SARS-COV-2 COVID-19 ALY/J&J VACCINE 2021-04-02 00:00:[address] [facility] SARS-COV-2 COVID-19 PFIZER VACCINE 2021-04-02 00:00:[address] [facility] SARS-COV-2 COVID-19 ALY/J&J VACCINE 2021-04-02 00:00:[address] [facility] SARS-COV-2 COVID-19 PFIZER VACCINE 2021-04-02 00:00:[address] [facility] SARS-COV-2 COVID-19 ALY/J&J VACCINE 2021-04-02 00:00:[address] [facility] SARS-COV-2 COVID-19 PFIZER VACCINE 2021-04-02 00:00:[address] [facility] SARS-COV-2 COVID-19 ALY/J&J VACCINE 2021-04-02 00:00:[address] [facility] SARS-COV-2 COVID-19 PFIZER VACCINE 2021-04-02 00:00:[address] [facility] SARS-COV-2 COVID-19 ALY/J&J VACCINE 2021-04-02 00:00:[address] [facility] SARS-COV-2 COVID-19 PFIZER VACCINE 2021-04-02 00:00:[address] [facility] SARS-COV-2 COVID-19 ALY/J&J VACCINE 2021-04-02 00:00:[address] [facility] SARS-COV-2 COVID-19 PFIZER VACCINE 2021-04-02 00:00:[address] [facility] SARS-COV-2 COVID-19 ALY/J&J VACCINE 2021-04-02 00:00:[address] [facility] SARS-COV-2 COVID-19 PFIZER VACCINE 2021-04-02 00:00:[address] [facility] SARS-COV-2 COVID-19 ALY/J&J VACCINE 2021-04-02 00:00:[address] [facility] SARS-COV-2 COVID-19 PFIZER VACCINE 2021-04-02 00:00:[address] [facility] SARS-COV-2 COVID-19 ALY/J&J VACCINE 2021-04-02 00:00:[address] [facility] SARS-COV-2 COVID-19 PFIZER VACCINE 2021-04-02 00:00:[address] [facility] SARS-COV-2 COVID-19 ALY/J&J VACCINE 2021-04-02 00:00:[address] [facility] SARS-COV-2 COVID-19 PFIZER VACCINE 2021-04-02 00:00:[address] [facility] SARS-COV-2 COVID-19 ALY/J&J VACCINE 2021-04-02 00:00:[address] [facility] SARS-COV-2 COVID-19 PFIZER VACCINE 2021-04-02 00:00:[address] [facility] SARS-COV-2 COVID-19 ALY/J&J VACCINE 2021-04-02 00:00:[address] [facility] SARS-COV-2 COVID-19 PFIZER VACCINE 2021-04-02 00:00:[address] [facility] SARS-COV-2 COVID-19 ALY/J&J VACCINE 2021-04-02 00:00:[address] [facility] Influenza Virus Vaccine Quad IM 3+ YRS 2020-05-12 00:00:[address] [facility] Influenza Virus Vaccine Quad IM 3+ YRS 2020-05-12 00:00:00 Completed [facility] Influenza Virus Vaccine Quad IM 3+ 2020-05-12 00:00:00 Completed [facility] Influenza Virus Vaccine Quad IM 2020-05-12 00:00:00 Completed [facility] Influenza Virus Vaccine Quad IM 32020-05-12 00:00:[address] [facility] Influenza Virus Vaccine Quad IM 3+ 2020-05-12 00:00:[address] [facility] Influenza Virus Vaccine Quad IM 3+ 2020-05-12 00:00:[address] [facility] Influenza Virus Vaccine Quad IM 3+ 2020-05-12 00:00:[address] [facility] Influenza Virus Vaccine Quad IM + 2020-05-12 00:00:[address] [facility] Influenza Virus Vaccine Quad IM 2020-05-12 00:00:[address] [facility] Influenza Virus Vaccine Quad IM 2020-05-12 00:00:[address] [facility] Influenza Virus Vaccine Quad IM 2020-05-12 00:00:[address] [facility] Influenza Virus Vaccine Quad IM 2020-05-12 00:00:[address] [facility] Influenza Virus Vaccine Quad IM 2020-05-12 00:00:[address] [facility] Influenza Virus Vaccine Quad IM 2020-05-12 00:00:[address] [facility] Influenza Virus Vaccine Quad IM 2020-05-12 00:00:[address] [facility] Influenza Virus Vaccine Quad IM 2020-05-12 00:00:[address] [facility] Influenza Virus Vaccine Quad IM 32020-05-12 00:00:[address] [facility] Influenza Virus Vaccine Quad IM 3+ 2020-05-12 00:00:00 Completed [facility] Influenza Virus Vaccine Quad IM 3+ 2020-05-12 00:00:00 Completed [facility] Influenza Virus Vaccine Quad IM 3+ 2020-05-12 00:00:[address] [facility] Influenza Virus Vaccine Quad IM + 2020-05-12 00:00:[address] [facility] Influenza Virus Vaccine Quad IM 2020-05-12 00:00:[address] [facility] Influenza Virus Vaccine Quad IM 3+ YRS 2020-05-12 00:00:[address] [facility] LIDOCAINE HCL 10MG/ML LIDOCAINE HCL 10MG/ML 2020-01-20 08:45:00 Completed [facility] LIDOCAINE HCL 10MG/ML LIDOCAINE HCL 10MG/ML 2020-01-20 08:45:00 Completed [facility] LIDOCAINE HCL 10MG/ML LIDOCAINE HCL 10MG/ML 2020-01-20 08:45:00 Completed [facility] LIDOCAINE HCL 10MG/ML LIDOCAINE HCL 10MG/ML 2020-01-20 08:45:00 Completed [facility] LIDOCAINE HCL 10MG/ML LIDOCAINE HCL 10MG/ML 2020-01-20 08:45:00 Completed [facility] LIDOCAINE HCL 10MG/ML LIDOCAINE HCL 10MG/ML 2020-01-20 08:45:00 Completed [facility] Depo-Medrol (Methylprednisolone ) 40mg Depo-Medrol (Methylprednisolon e) 40mg 2020-01-20 08:44:00 Completed [facility] Depo-Medrol (Methylprednisolone ) 40mg Depo-Medrol (Methylprednisolon e) 40mg 2020-01-20 08:44:00 Completed [facility] Depo-Medrol (Methylprednisolone ) 40mg Depo-Medrol (Methylprednisolon e) 40mg 2020-01-20 08:44:00 Completed [facility] Depo-Medrol (Methylprednisolone ) 40mg Depo-Medrol (Methylprednisolon e) 40mg 2020-01-20 08:43:00 Completed [facility] Depo-Medrol (Methylprednisolone ) 40mg Depo-Medrol (Methylprednisolon e) 40mg 2020-01-20 08:43:00 Completed [facility] Depo-Medrol (Methylprednisolone ) 40mg Depo-Medrol (Methylprednisolon e) 40mg 2020-01-20 08:43:00 Completed [facility] Influenza Virus Vaccine Quad IM 3+ YRS 2019-09-13 00:00:00 Completed [facility] Influenza Virus Vaccine Quad IM 3+ YRS 2019-09-13 00:00:00 Completed [facility] Influenza Virus Vaccine Quad IM 3+ YRS 2019-09-13 00:00:00 Completed [facility] Influenza Virus Vaccine Quad IM 3+ YRS 2019-09-13 00:00:00 Completed [facility] Influenza Virus Vaccine Quad IM 3+ YRS 2019-09-13 00:00:[address] [facility] Influenza Virus Vaccine Quad IM 3+ YRS 2019-09-13 00:00:[address] [facility] Influenza Virus Vaccine Quad IM 3+ YRS 2019-09-13 00:00:[address] [facility] Influenza Virus Vaccine Quad IM 3+ YRS 2019-09-13 00:00:[address] [facility] Influenza Virus Vaccine Quad IM 3+ YRS 2019-09-13 00:00:[address] [facility] Influenza Virus Vaccine Quad IM 3+ YRS 2019-09-13 00:00:[address] [facility] Influenza Virus Vaccine Quad IM 3+ YRS 2019-09-13 00:00:[address] [facility] Influenza Virus Vaccine Quad IM 3+ YRS 2019-09-13 00:00:[address] [facility] Influenza Virus Vaccine Quad IM 3+ YRS 2019-09-13 00:00:[address] [facility] Influenza Virus Vaccine Quad IM 3+ YRS 2019-09-13 00:00:[address] [facility] Influenza Virus Vaccine Quad IM 3+ YRS 2019-09-13 00:00:[address] [facility] Influenza Virus Vaccine Quad IM 3+ YRS 2019-09-13 00:00:[address] [facility] Influenza Virus Vaccine Quad IM 3+ YRS 2019-09-13 00:00:[address] [facility] Influenza Virus Vaccine Quad IM 3+ YRS 2019-09-13 00:00:00 Completed [facility] Influenza Virus Vaccine Quad IM 3+ YRS 2019-09-13 00:00:00 Completed [facility] Influenza Virus Vaccine Quad IM 3+ YRS 2019-09-13 00:00:[address] [facility] Influenza Virus Vaccine Quad IM 3+ YRS 2019-09-13 00:00:00 Completed [facility] Influenza Virus Vaccine Quad IM 3+ YRS 2019-09-13 00:00:[address] [facility] Influenza Virus Vaccine Quad IM 3+ YRS 2019-09-13 00:00:[address] [facility] Influenza Virus Vaccine Quad IM 3+ YRS 2019-09-13 00:00:[address] [facility] SARS-COV-2 COVID-19 PFIZER VACCINE Unknown Completed [facility] SARS-COV-2 COVID-19 PFIZER VACCINE Unknown Completed [facility] SARS-COV-2 COVID-19 ALY/J&J VACCINE Unknown Completed [facility] SARS-COV-2 COVID-19 ALY/J&J VACCINE Unknown Completed [facility] Influenza Virus Vaccine Quad IM 3+ YRS Unknown Completed [facility] Influenza Virus Vaccine Quad IM 3+ YRS Unknown Completed [facility] Influenza Virus Vaccine Quad IM 3+ YRS Unknown Completed [facility] SARS-COV-2 COVID-19 PFIZER VACCINE Unknown Completed [facility] SARS-COV-2 COVID-19 PFIZER VACCINE Unknown Completed [facility] SARS-COV-2 COVID-19 ALY/J&J VACCINE Unknown Completed [facility] SARS-COV-2 COVID-19 ALY/J&J VACCINE Unknown Completed [facility] Influenza Virus Vaccine Quad IM 3+ YRS Unknown Completed [facility] Influenza Virus Vaccine Quad IM 3+ YRS Unknown Completed [facility] Influenza Virus Vaccine Quad IM 3+ YRS Unknown Completed [facility] SARS-COV-2 COVID-19 PFIZER VACCINE Unknown Completed [facility] SARS-COV-2 COVID-19 PFIZER VACCINE Unknown Completed [facility] SARS-COV-2 COVID-19 ALY/J&J VACCINE Unknown Completed [facility] SARS-COV-2 COVID-19 ALY/J&J VACCINE Unknown Completed [facility] Influenza Virus Vaccine Quad IM 3+ YRS Unknown Completed [facility] Influenza Virus Vaccine Quad IM 3+ YRS Unknown Completed [facility] Influenza Virus Vaccine Quad IM 3+ YRS Unknown Completed [facility] SARS-COV-2 COVID-19 PFIZER VACCINE Unknown Completed [facility] SARS-COV-2 COVID-19 PFIZER VACCINE Unknown Completed [facility] SARS-COV-2 COVID-19 ALY/J&J VACCINE Unknown Completed [facility] SARS-COV-2 COVID-19 ALY/J&J VACCINE Unknown Completed [facility] Influenza Virus Vaccine Quad IM 3+ YRS Unknown Completed [facility] Influenza Virus Vaccine Quad IM 3+ YRS Unknown Completed [facility] Influenza Virus Vaccine Quad IM 3+ YRS Unknown Completed [facility] Vital Signs Vital Name Observation Time Observation Value Comments S leonce height 2023-09-18 14:30:00 61.5 [in_i] Comm on [facility] weight 2023-09-18 14:30:00 217.6 [lb_av] Co mmon [facility] temperature 2023-09-18 14:30:00 97.9 [degF] Com mon [facility] bmi 2023-09-18 14:30:00 40.44 kg/m2 Comm on [facility] blood pressure systolic 2023-09-18 14:30:00 128 mm[Hg] [facility] blood pressure diastolic 2023-09-18 14:30:00 83 mm[Hg] [facility] Systolic blood pressure 2023-08-30 17:41:00 129 mm[Hg] [facility] Diastolic blood pressure 2023-08-30 17:41:00 73 mm[Hg] [facility] Heart rate 2023-08-30 17:41:00 93 /min [facility] Body temperature 2023-08-30 17:41:[address] [facility] Respiratory rate 2023-08-30 17:41:00 18 /min [facility] Oxygen saturation in Arterial blood by Pulse oximetry 2023-08-30 17:41:00 97 /min [facility] Body height 2023-08-30 01:53:00 157.5 cm [facility] Body weight 2023-08-30 01:53:00 103.42 kg [facility] BMI 2023-08-30 01:53:00 41.70 kg/m2 [facility] height 2023-05-23 10:30:00 61.5 [in_i] Comm on [facility] weight 2023-05-23 10:30:00 225 [lb_av] Comm on [facility] temperature 2023-05-23 10:30:00 98.1 [degF] Com [facility] bmi 2023-05-23 10:30:00 41.82 kg/m2 Comm on [facility] blood pressure systolic 2023-05-23 10:30:00 131 mm[Hg] [facility] blood pressure diastolic 2023-05-23 10:30:00 82 mm[Hg] [facility] height 2023-05-07 09:30:00 61.5 [in_i] Comm on [facility] weight 2023-05-07 09:30:00 227 [lb_av] Comm on [facility] temperature 2023-05-07 09:30:00 97.6 [degF] Com [facility] bmi 2023-05-07 09:30:00 42.19 kg/m2 Comm on [facility] blood pressure systolic 2023-05-07 09:30:00 130 mm[Hg] [facility] blood pressure diastolic 2023-05-07 09:30:00 78 mm[Hg] [facility] height 2023-03-17 13:45:00 61.5 [in_i] Comm on [facility] weight 2023-03-17 13:45:00 220 [lb_av] Comm on [facility] temperature 2023-03-17 13:45:00 98.2 [degF] Com [facility] bmi 2023-03-17 13:45:00 40.89 kg/m2 Comm on [facility] blood pressure systolic 2023-03-17 13:45:00 132 mm[Hg] [facility] blood pressure diastolic 2023-03-17 13:45:00 84 mm[Hg] [facility] height 2023-01-13 08:45:00 61.5 [in_i] Comm on [facility] weight 2023-01-13 08:45:00 221 [lb_av] Comm on [facility] temperature 2023-01-13 08:45:00 97.9 [degF] Com mon [facility] bmi 2023-01-13 08:45:00 41.08 kg/m2 Comm on [facility] blood pressure systolic 2023-01-13 08:45:00 128 mm[Hg] [facility] blood pressure diastolic 2023-01-13 08:45:00 82 mm[Hg] [facility] height 2023-01-07 09:30:00 61.5 [in_i] Comm on [facility] weight 2023-01-07 09:30:00 221 [lb_av] Comm on [facility] temperature 2023-01-07 09:30:00 97.7 [degF] Com mon [facility] bmi 2023-01-07 09:30:00 41.08 kg/m2 Comm on [facility] blood pressure systolic 2023-01-07 09:30:00 134 mm[Hg] [facility] blood pressure diastolic 2023-01-07 09:30:00 80 mm[Hg] [facility] Systolic blood pressure 2022-12-27 14:00:00 120 mm[Hg] [facility] Diastolic blood pressure 2022-12-27 14:00:00 87 mm[Hg] [facility] Heart rate 2022-12-27 14:00:00 102 /[facility] Body height 2022-12-27 14:00:00 152.4 cm [facility] Body weight 2022-12-27 14:00:00 101.696 kg [facility] BMI 2022-12-27 14:00:00 43.79 kg/m2 [facility] Oxygen saturation in Arterial blood by Pulse oximetry 2022-12-27 14:00:00 98 /min [facility] Systolic blood pressure 2022-09-23 14:42:00 141 mm[Hg] [facility] Diastolic blood pressure 2022-09-23 14:42:00 74 mm[Hg] [facility] Heart rate 2022-09-23 14:42:00 76 /min [facility] Respiratory rate 2022-09-23 14:42:00 8 /min [facility] Oxygen saturation in Arterial blood by Pulse oximetry 2022-09-23 14:42:00 100 /min [facility] Body temperature 2022-09-23 14:07:[address] [facility] Body height 2022-09-17 19:30:00 154.9 cm [facility] Body weight 2022-09-17 19:30:00 113.399 kg [facility] BMI 2022-09-17 19:30:00 47.24 kg/m2 [facility] Systolic blood pressure 2022-09-23 12:46:00 144 mm[Hg] [facility] Diastolic blood pressure 2022-09-23 12:46:00 68 mm[Hg] [facility] Heart rate 2022-09-23 12:46:00 90 /min [facility] Body temperature 2022-09-23 12:46:[address] [facility] Respiratory rate 2022-09-23 12:46:00 17 /min [facility] Oxygen saturation in Arterial blood by Pulse oximetry 2022-09-23 12:46:00 95 /min [facility] Body height 2022-09-17 19:30:00 154.9 cm [facility] Body weight 2022-09-17 19:30:00 113.399 kg [facility] BMI 2022-09-17 19:30:00 47.24 kg/m2 [facility] Systolic blood pressure 2022-09-19 16:02:00 125 mm[Hg] [facility] Diastolic blood pressure 2022-09-19 16:02:00 81 mm[Hg] [facility] Heart rate 2022-09-19 16:02:00 79 /min [facility] Body temperature 2022-09-19 16:02:[address] [facility] Respiratory rate 2022-09-19 16:02:00 18 /min [facility] Body height 2022-09-19 16:02:00 154.9 cm [facility] Body weight 2022-09-19 16:02:00 104.327 kg [facility] BMI 2022-09-19 16:02:00 43.46 kg/m2 [facility] Oxygen saturation in Arterial blood by Pulse oximetry 2022-09-19 16:02:00 98 /min [facility] Body weight 2022-09-10 21:39:00 113.399 kg [facility] BMI 2022-09-10 21:39:00 47.24 kg/m2 [facility] Systolic blood pressure 2022-06-12 18:06:00 155 mm[Hg] [facility] Diastolic blood pressure 2022-06-12 18:06:00 84 mm[Hg] [facility] Heart rate 2022-06-12 18:06:00 90 /min [facility] Body temperature 2022-06-12 18:06:[address] [facility] Respiratory rate 2022-06-12 18:06:00 18 /min [facility] Oxygen saturation in Arterial blood by Pulse oximetry 2022-06-12 18:06:00 94 /min [facility] Body weight 2022-06-11 09:20:00 113.49 kg [facility] BMI 2022-06-11 09:20:00 47.27 kg/m2 [facility] Body height 2022-06-11 01:52:00 154.9 cm [facility] Systolic blood pressure 2022-04-19 13:32:00 127 mm[Hg] [facility] Diastolic blood pressure 2022-04-19 13:32:00 67 mm[Hg] [facility] Heart rate 2022-04-19 13:32:00 88 /min [facility] Body height 2022-04-19 13:32:00 154.9 cm [facility] Body weight 2022-04-19 13:32:00 117.028 kg [facility] BMI 2022-04-19 13:32:00 48.75 kg/m2 [facility] Body height 2020-12-18 16:17:00 [facility] Body weight 2020-12-18 16:17:00 115[facility]667 [facility] BMI 2020-12-18 16:17:00 46.64 kg/m2 [facility] Body height 2020-12-18 16:17:00 157.5 cm [facility] Body weight 2020-12-18 16:17:00 115.667 [facility] BMI 2020-12-18 16:17:00 46.64 kg/m2 [facility] Procedures Procedure Date / Time Performed Performing Clinician Source POCT GLUCOSE (AUTOMATED) 2023-08-30 18:30:[address] [facility] POCT GLUCOSE (AUTOMATED) 2023-08-30 13:51:[address] [facility] TROPONIN I 2023-08-30 09:22:00 Tom [facility] GLYCOSYLATED HEMOGLOBIN (A1C) 2023-08-30 04:51:[address] [facility] TROPONIN I 2023-08-30 04:50:00 Tom [facility] POCT GLUCOSE (AUTOMATED) 2023-08-30 02:21:[address] [facility] URINE DRUG (IMMUNOASSAY) - COMPREHENSIVE DRUG SCREEN W/O REFLEX 2023-08-30 00:00:[address] [facility] CT ABDOMEN PELVIS W CONTRAST 2023-08-29 23:18:[address] [facility] CT CHEST PULMONARY ANGIOGRAM 2023-08-29 19:11:[address] [facility] URINALYSIS 2023-08-29 17:44:00 Marylou Driver [facility] XR CHEST 1 VW 2023-08-29 17:05:57 Marylou Driver [facility] LIPASE 2023-08-29 16:43:00 Marylou Driver [facility] MAGNESIUM 2023-08-29 16:43:00 Marylou Driver [facility] TROPONIN I 2023-08-29 16:43:00 Marylou Driver [facility] COMP. METABOLIC PANEL (59315) 2023-08-29 16:43:[address] [facility] CBC WITH DIFF 2023-08-29 16:43:00 Marylou Driver [facility] D-DIMER 2023-08-29 16:43:00 Marylou Driver [facility] HB ECG ROUTINE & RHYTHM STRIP 2023-08-29 16:32:[address] [facility] EXTERNAL PROVIDER - ADC CARDIOLOGY 2022-12-31 05:01:00 Doctor Unassigned, [place] [facility] EXTERNAL PROVIDER - ADC REFERRAL 2022-12-20 05:01:00 Doctor Unassigned, [place] [facility] FL TIME OR (NON-REPORTABLE) 2022-09-23 14:53:[address] [facility] [place] TIME OR (NON-REPORTABLE) 2022-09-23 14:53:[address] [facility] MAJOR JOINT INJECTION 2022-09-23 13:32:[address] [facility] POCT GLUCOSE (AUTOMATED) 2022-09-23 12:50:[address] [facility] POCT GLUCOSE (AUTOMATED) 2022-09-23 12:50:[address] [facility] HB ABO GROUPING 2022-09-23 12:45:[address] [facility] HB ABO GROUPING 2022-09-23 12:45:[address] [facility] DAY SURGERY - ADC 2022-09-23 06:01:00 Doctor Rena ssigned, [place] [facility] TROPONIN I 2022-09-19 15:38:00 Pedro Luis Rushing [facility] XR CHEST 2 VW 2022-09-19 14:38:32 LutzPiotrig Ponce Un [facility] ASSIGNMENT OF BENEFITS 2022-09-19 14:20:21 Docto r Unassigned, [place] [facility] EXTERNAL PROVIDER RECORDS 2022-09-17 06:01:00 Doctor Unassigned, [place] [facility] ASSIGNMENT OF BENEFITS 2022-09-10 21:32:35 Docto r Unassigned, [place] [facility] POCT GLUCOSE (AUTOMATED) 2022-06-12 [facility]:08[facility] (NA, K, CL, CO2, GLUCOSE, BUN, CREATININE, CA) 2022-06-12 09:27:[address] [facility] CBC WITH DIFF 2022-06-12 09:27:00 Jimmy Rowland Un [facility] POCT GLUCOSE (AUTOMATED) 2022-06-12 07:56:00 [facility] 2022-06-12 01:45:00 [facility] POCT GLUCOSE (AUTOMATED) 2022-06-11 22:56:[address] [facility] POCT GLUCOSE (AUTOMATED) 2022-06-11 18:11:00 [facility] POCT GLUCOSE (AUTOMATED) 2022-06-11 14:05:[address] [facility] PHOSPHORUS 2022-06-11 10:40:00 Robbi Muro [facility] CREATINE KINASE 2022-06-11 10:40:00 Robbi Muro [facility] AMYLASE 2022-06-11 10:40:00 Robbi Muro [facility] LIPASE 2022-06-11 10:40:00 Robbi Muro [facility] MAGNESIUM 2022-06-11 10:40:00 [facility] COMP. METABOLIC PANEL (44031) 2022-06-11 10:40:[address] [facility] CBC WITH DIFF 2022-06-11 10:40:00 Robbi Muro [facility] GLYCOSYLATED HEMOGLOBIN (A1C) 2022-06-11 10:40:[address] [facility] N-TERMINAL PRO-BNP 2022-06-11 10:40:[address] [facility] POCT GLUCOSE (AUTOMATED) 2022-06-11 07:56:[address] [facility] URINE CULTURE 2022-06-11 05:18:00 Robbi Muro [facility] PROTHROMBIN TIME / INR 2022-06-11 03:24:[address] [facility] LACTIC ACID WHOLE BLOOD 2022-06-11 03:18:[address] [facility] C-REACTIVE PROTEIN 2022-06-11 03:17:[address] [facility] SEDIMENTATION RATE 2022-06-11 03:17:[address] [facility] PROCALCITONIN 2022-06-11 03:17:00 Robbi Muro [facility] US OVARY TORSION 2022-06-10 22:01:56 [facility] 2022-06-10 19:14:00 Brodie Clemons [facility] CT ABDOMEN PELVIS WO CONTRAST 2022-06-10 18:36:[address] [facility] PHOSPHORUS 2022-06-10 17:54:00 Robbi Muro [facility] URIC ACID 2022-06-10 17:54:00 Robbi Muro [facility] LIPASE 2022-06-10 17:54:00 Brodie Clemons [facility] MAGNESIUM 2022-06-10 17:54:00 Robbi Muro [facility] FERRITIN SERUM 2022-06-10 17:54:00 Robbi Muro [facility] HEPATIC FUNCTION PANEL (25400) (ALB,T.PRO,BILI T,BU/BC,ALT,AST,ALK PHOS) 2022-06-10 17:54:[address] [facility] BASIC METABOLIC PANEL (NA, K, CL, CO2, GLUCOSE, BUN, CREATININE, CA) 2022-06-10 17:54:[address] [facility] IRON PANEL 2022-06-10 17:54:00 Robbi Muro [facility] CBC WITH DIFF 2022-06-10 17:54:00 Brodie Clemons [facility] N-TERMINAL PRO-BNP 2022-06-10 17:54:[address] [facility] CONSENT/REFUSAL FOR DIAGNOSIS AND TREATMENT 2022-06-10 17:38:54 Doctor Unassigned, [place] [facility] Encounters Start Date/Time End Date/Time Encounter Type Admission Type Attending [facility] Care Facility Care Department Encounter ID Source 2023-09-16 15:59:01 Outpatient NathanEstefany [facility] [id number] [facility] 2023-09-15 13:03:00 Outpatient NathanRichardEstefany [facility] [id number] [facility] 2023-01-10 09:10:01 Outpatient [facility]Estefany [facility] [id number] [facility] 2023-01-07 11:56:01 Outpatient Nathan Estefany [facility] [id number] [facility] 2022-12-24 16:13:00 Outpatient NathanRichardEstefany [facility] [id number] [facility] 2022-01-04 12:25:16 Outpatient KAYLA MAGDALENO [facility] [id number] [facility] 2021-08-29 12:51:44 Outpatient STLMLC ST[facility] [id number] [facility] 2021-08-29 11:59:56 Outpatient STLMLC STL[facility]C [id number] [facility] 2021-08-29 11:28:05 Outpatient STLMLC STLMLC [id number] [facility] 2021-08-29 11:27:12 Outpatient STLMLC STLMLC [id number] [facility] 2021-06-01 02:46:06 Emergency [facility] [id number] [facility] 2020-12-18 09:37:27 Outpatient [facility] [id number] [facility] 2020-12-18 09:37:27 Outpatient [facility] [id number] [facility] 2020-12-18 09:37:27 Outpatient [facility] [id number] [facility] 2020-12-15 12:03:34 Outpatient [facility] [id number] [facility] 2020-12-15 12:03:34 Outpatient [facility] [id number] [facility] 2020-12-15 12:00:05 Outpatient [facility] [id number] [facility] 2020-12-09 04:06:39 Outpatient LACEY CLEMENTS [facility] [id number] [facility] 2023-10-22 00:00:00 2023-10-22 00:00:00 Outpatient Shira BREE WELSH [facility] [id number] [facility] 2023-09-18 00:00:00 2023-09-18 00:00:00 (ESTPT) Dayne love Patient STLMLC STLMLC [id number] [facility] 2023-09-03 00:00:00 2023-09-03 00:00:00 Patient Secure Msg Doctor Unassigned, [place] [facility] 1.2.840.114 350.1.13.10 4.2.7.2.686 [id number] [facility] 2023-09-01 00:00:00 2023-09-01 00:00:00 Transition of Care Veronika Espinoza 1..840.114 350.1.13.10 4.2.7.2.686 [id number] [facility] 2023-08-29 10:29:00 2023-08-30 14:13:00 Outpatient ANNAMARIA RAY [facility] [id number] [facility] 2023-08-29 10:29:00 2023-08-30 14:13:00 Emergency Drever, Annamaria Burgos [facility] 1..840.114 350.1.13.10 4.2.7.2.686 [id number] [facility] 2023-08-30 00:00:00 2023-08-30 00:00:00 Telephone Bree Welsh [facility] PROFESSIO [facility] 1..840.114 350.1.13.10 4.2.7.2.686 [id number] [facility] 2023-05-23 00:00:00 2023-05-23 00:00:00 (PO) Post Op STLC STLC [id number] [facility] 2023-05-07 00:00:00 2023-05-07 00:00:00 NON-BILLAB LE VISIT STLC STLC [id number] [facility] 2023-04-29 00:00:00 2023-04-29 00:00:00 (TEL) STLMLC STLMLC [id number] [facility] 2023-04-08 00:00:00 2023-04-08 00:00:00 (TEL) STLMLC STLMLC [id number] [facility] 2023-04-03 00:00:00 2023-04-03 00:00:00 (TEL) STLMLC STLMLC [id number] [facility] 2023-03-19 00:00:00 2023-03-19 00:00:00 (TEL) STLMLC STLMLC [id number] [facility] 2023-03-17 00:00:00 2023-03-17 00:00:00 OFFICE VISIT ESTAB PT LEVEL 3 STLMLC STLMLC [id number] [facility] 2023-01-13 00:00:00 2023-01-13 00:00:00 OFFICE VISIT ESTAB PT LEVEL 3 STLMLC STLMLC [id number] [facility] 2023-01-07 00:00:00 2023-01-07 00:00:00 OFFICE VISIT ESTAB PT LEVEL 4 STLMLC STLMLC [id number] [facility] 2022-12-31 00:00:00 2022-12-31 00:00:[address] [facility] 1.2.840.114 350.1.13.10 4.2.7.2.686 [id number] [facility] 2022-12-31 00:00:00 2022-12-31 00:00:00 Orders Only Doctor Unassigned, [place] [facility] 1.2.840.114 350.1.13.10 4.2.7.2.686 [id number] [facility] 2022-12-27 09:20:00 2022-12-27 09:20:00 Office Visit [facility] 1.2.840.114 350.1.13.10 4.2.7.2.686 [id number] [facility] 2022-12-27 09:20:00 2022-12-27 09:12:16 Outpatient R BREE WELSH [facility] [id number] [facility] 2022-12-26 09:40:00 2022-12-26 09:40:00 [facility] [id number] 2022-12-20 00:00:00 2022-12-20 00:00:00 Orders Only Doctor Unassigned, [place] [facility] 1.2840.114 350.1.13.10 4.2.7.2.686 [id number] [facility] 2022-09-23 06:38:00 2022-09-23 09:05:00 Outpatient R KAYLA LUTZ [facility] [id number] [facility] 2022-09-23 06:38:00 2022-09-23 09:05:00 Hospital Encounter Kayla Lutz [facility] 1.2.840.114 350.1.13.10 4.2.7.2.686 [id number] [facility] 2022-09-23 07:25:00 2022-09-23 07:50:00 Surgery Kayla Lutz [facility] 1.2.840.114 350.1.13.10 4.2.7.2.686 [id number] [facility] 2022-09-23 00:00:00 2022-09-23 00:00:00 Orders Only Doctor Unassigned, [place] [facility] 1.2840.114 350.1.13.10 4.2.7.2.686 [id number] [facility] 2022-09-20 00:00:00 2022-09-20 00:00:00 Telephone Bernice Colunga [facility] 1.2.840.114 350.1.13.10 4.2.7.2.686 [id number] [facility] 2022-09-19 10:05:00 2022-09-19 11:39:00 Emergency X PEDRO LUIS RUSHING TIMOTHY ALSEGUNDO ERT [id number] [facility] 2022-09-19 10:05:00 2022-09-19 11:39:00 Emergency Pedro Luis Rushing [facility] 1.2.840.114 350.1.13.10 4.2.7.2.686 [id number] [facility] 2022-09-19 10:15:00 2022-09-19 10:30:00 Drilling [employer] Professional Visit Pob, Adc Lab Main Kayla Lutz [facility] PROFESSIO [facility] 1.2840.114 350.1.13.10 4.2.7.2.686 [id number] [facility] 2022-09-19 08:22:49 2022-09-19 10:04:00 Hospital Encounter Kayla Lutz [facility] 1.2840.114 350.1.13.10 4.2.7.2.686 [id number] [facility] 2022-09-19 08:21:46 2022-09-19 08:21:46 Outpatient R [facility] [id number] [facility] 2022-09-19 00:00:00 2022-09-19 00:00:00 Orders Only Doctor Unassigned, [place] [facility] 1.2840.114 350.1.13.10 4.2.7.2.686 [id number] [facility] 2022-09-17 00:00:00 2022-09-17 00:00:00 Orders Only Doctor Unassigned, [place] [facility] 1.2840.114 350.1.13.10 4.2.7.2.686 [id number] [facility] 2022-09-16 00:00:00 2022-09-16 00:00:00 Prep For Surgery [facility] 1.2840.114 350.1.13.10 4.2.7.2.686 [id number] [facility] 2022-09-10 16:30:00 2022-09-10 23:59:00 Outpatient R BERNICE COLUNGA [facility] [id number] [facility] 2022-09-10 16:00:00 2022-09-10 16:15:00 Office Visit Keanu [facility] 1.2840.114 350.1.13.10 4.2.7.2.686 [id number] [facility] 2022-09-10 00:00:00 2022-09-10 00:00:00 Orders Only Doctor Unassigned, [place] [facility] 1.2840.114 350.1.13.10 4.2.7.2.686 [id number] [facility] 2022-09-10 00:00:00 2022-09-10 00:00:00 [facility] 1.284.114 350.1.13.10 4.2.7.2.686 [id number] [facility] 2022-09-09 00:00:00 2022-09-09 00:00:00 Telephone Keanu [facility] 1.284.114 350.1.13.10 4.2.7.2.686 [id number] [facility] 2022-06-13 00:00:00 2022-06-13 00:00:00 Transition of Care Chelo Cornejo 1.2840.114 350.1.13.10 4.2.7.2.686 [id number] [facility] 2022-06-10 11:37:00 2022-06-12 16:00:00 Outpatient ANNAMARIA RAY [facility] [id number] [facility] 2022-06-10 11:37:00 2022-06-12 16:00:00 Emergency Brodie Clemons Annamaria [facility] 1.2.840.114 350.1.13.10 4.2.7.2.686 [id number] [facility] 2022-04-19 08:55:00 2022-04-19 23:59:00 Outpatient Shira COLUNGA BERNICE [facility] [id number] [facility] 2022-04-19 08:55:00 2022-04-19 23:59:00 Outpatient Shira COLUNGA [facility] [id number] [facility] 2022-04-19 08:45:00 2022-04-19 09:00:00 Office Visit Bernice [facility]a [facility] 1.2.840.114 350.1.13.10 4.2.7.2.686 [id number] [facility] 2022-02-25 15:15:00 2022-02-25 15:15:00 Outpatient Shira COLUNGA [facility] [id number] [facility] 2022-02-21 10:45:00 2022-02-21 10:45:00 Outpatient Shira COLUNGA [facility] [id number] [facility] 2022-02-18 10:30:00 2022-02-18 10:30:00 Outpatient FILIPE HUMPHREY [facility] [id number] [facility] 2022-01-18 10:00:00 2022-01-18 10:00:00 Outpatient CLAYTON THOMAS [facility] [id number] [facility] 2022-01-17 00:00:00 2022-01-17 00:00:00 Kayla Rodriguez [facility] 1.2.840.114 350.1.13.10 4.2.7.2.686 [id number] [facility] 2022-01-14 06:59:00 2022-01-14 09:15:00 Outpatient R KAYLA LUTZ [facility] [id number] [facility] 2022-01-14 06:59:00 2022-01-14 09:15:00 Hospital Encounter [place] Kayla Ponce [facility] 1.2.840.114 350.1.13.10 4.2.7.2.686 [id number] [facility] 2022-01-14 08:20:00 2022-01-14 09:12:00 Surgery [place] Kayla [facility] 1.2.840.114 350.1.13.10 4.2.7.2.686 [id number] [facility] 2022-01-14 08:25:00 2022-01-14 08:39:00 Anesthesia Event Bharath Padgett [facility] 1.2.840.114 350.1.13.10 4.2.7.2.686 [id number] [facility] 2022-01-14 00:00:00 2022-01-14 00:00:00 Orders Only Doctor Unassigned, [place] [facility] 1.2.840.114 350.1.13.10 4.2.7.2.686 [id number] [facility] 2022-01-11 07:39:32 2022-01-11 23:59:00 Hospital Encounter Kayla Lutz Ponce [facility] 1.2.840.114 350.1.13.10 4.2.7.2.686 [id number] [facility] 2022-01-11 07:39:18 2022-01-11 23:59:00 Outpatient R KAYLA LUTZ [facility] [id number] [facility] 2022-01-11 08:30:00 2022-01-11 08:45:00 [employer]illing [employer] Professional Visit Pob, Adc Lab Main [facility] 1.2.840.114 350.1.13.10 4.2.7.2.686 [id number] [facility] 2022-01-11 08:15:00 2022-01-11 08:30:00 Laboratory Only Only, [facility] Test Kayla Lutz [facility] 1.2.840.114 350.1.13.10 4.2.7.2.686 [id number] [facility] 2022-01-11 08:15:00 2022-01-11 08:15:00 Outpatient R KAYLA LUTZ [facility] [id number] [facility] 2022-01-11 00:00:00 2022-01-11 00:00:00 Telephone Kayla Lutz [facility] 1.2.840.114 350.1.13.10 4.2.7.2.686 [id number] [facility] 2022-01-04 11:15:00 2022-01-04 11:30:00 Office Visit Bernice Colunga [facility] 1.2.840.114 350.1.13.10 4.2.7.2.686 [id number] [facility] 2022-01-04 11:15:00 2022-01-04 11:15:00 Outpatient BERNICE REYES [facility] [id number] [facility] 2022-01-04 11:15:00 2022-01-04 11:15:00 Outpatient BERNICE REYES [facility] [id number] [facility] 2022-01-04 00:00:00 2022-01-04 00:00:00 Prep For Surgery Kayla Lutz [facility] 1.2.840.114 350.1.13.10 4.2.7.2.686 [id number] [facility] 2021-12-20 10:00:00 2021-12-20 10:00:00 Outpatient R KAYLA LUTZ [facility] [id number] [facility] 2021-12-11 00:00:00 2021-12-11 00:00:00 Telephone Kayla Lutz [facility] 1.2.840.114 350.1.13.10 4.2.7.2.686 [id number] [facility] 2021-12-07 10:23:58 2021-12-07 23:59:00 Outpatient R KEANU [facility] [id number] [facility] 2021-12-07 10:23:58 2021-12-07 23:59:00 Hospital Encounter Bernice Colunga [facility] 1.2.840.114 350.1.13.10 4.2.7.2.686 [id number] [facility] 2021-11-30 10:45:00 2021-11-30 11:13:44 Outpatient R RADHA COLUNGATT [facility] [id number] [facility] 2021-11-30 10:45:00 2021-11-30 11:13:44 Office Visit Colunga [facility] 1.2.840.114 350.1.13.10 4.2.7.2.686 [id number] [facility] 2021-11-30 10:45:00 2021-11-30 11:13:44 Outpatient R KEANU [facility] [id number] [facility] 2021-11-28 00:00:00 2021-11-28 00:00:00 Telephone Kayla Lutz [facility] 1.2.840.114 350.1.13.10 4.2.7.2.686 [id number] [facility] 2021-11-28 00:00:00 2021-11-28 00:00:00 Orders Only Doctor Unassigned, [place] [facility] 1.2.840.114 350.1.13.10 4.2.7.2.686 [id number] [facility] 2021-11-27 00:00:00 2021-11-27 00:00:00 Telephone Kayla Lutz [facility] 1.2840.114 350.1.13.10 4.2.7.2.686 [id number] [facility] 2021-11-22 00:00:00 2021-11-22 00:00:00 Orders Only Doctor Unassigned, [place] [facility] 1.2.840.114 350.1.13.10 4.2.7.2.686 [id number] [facility] 2021-11-21 00:00:00 2021-11-21 00:00:00 Tele[facility] 1.2840.114 350.1.13.10 4.2.7.2.686 [id number] [facility] 2021-11-21 00:00:00 2021-11-21 00:00:00 Telephone Kay[facility] L[facility] [place] 1.2840.114 350.1.13.10 4.2.7.2.686 [id number] [facility] 2021-11-19 00:00:00 2021-11-19 00:00:00 Telephone [facility] 1.2.840.114 350.1.13.10 4.2.7.2.686 [id number] [facility] 2021-11-19 00:00:00 2021-11-19 00:00:00 Telephone [facility]utz [facility] 1.2.840.114 350.1.13.10 4.2.7.2.686 [id number] [facility] 2021-11-12 00:00:00 2021-11-12 00:00:00 Telephone [facility]utz [facility] 1.2.840.114 350.1.13.10 4.2.7.2.686 [id number] [facility] 2021-10-29 00:00:00 2021-10-29 00:00:00 Telephone [facility]utz [facility] 1.2.840.114 350.1.13.10 4.2.7.2.686 [id number] [facility] 2021-10-26 00:00:00 2021-10-26 00:00:00 Telephone [facility]utz [facility] 1.2.840.114 350.1.13.10 4.2.7.2.686 [id number] [facility] 2021-10-24 09:30:00 2021-10-24 10:20:40 Outpatient R BERNICE COLUNGA [facility] [id number] [facility] 2021-10-24 09:30:00 2021-10-24 10:20:40 [facility] 1.2.840.114 350.1.13.10 4.2.7.2.686 [id number] [facility] 2021-10-24 09:30:00 2021-10-24 10:20:40 Outpatient R KEANU [facility] [id number] [facility] 2021-10-24 09:30:00 2021-10-24 10:20:40 [facility] 1.2.840.114 350.1.13.10 4.2.7.2.686 [id number] [facility] 2021-10-19 00:00:00 2021-10-19 00:00:00 Telephone Keanu [facility] 1..840.114 350.1.13.10 4.2.7.2.686 [id number] [facility] 2021-10-18 00:00:00 2021-10-18 00:00:00 Telephone Keanu [facility] 1.2.840.114 350.1.13.10 4.2.7.2.686 [id number] [facility] 2021-10-12 14:00:00 2021-10-12 15:00:16 Outpatient RENÉE VILLARREAL [facility] [id number] [facility] 2021-10-02 00:00:00 2021-10-02 00:00:00 Telephone [facility] GREGOR?NATY [facility] 1.2.840.114 350.1.13.10 4.2.7.2.686 [id number] [facility] 2021-10-02 00:00:00 2021-10-02 00:00:00 Orders Only Doctor Unassigned, [place] [facility] 1.2.840.114 350.1.13.10 4.2.7.2.686 [id number] [facility] 2021-09-27 00:00:00 2021-09-27 00:00:00 Orders Only Doctor Unassigned, [place] [facility] 1.2.840.114 350.1.13.10 4.2.7.2.686 [id number] [facility] 2021-09-24 15:50:00 2021-09-24 23:59:00 Outpatient BERNICE [facility] [id number] [facility] 2021-07-02 00:00:00 2021-07-02 00:00:00 (TEL) [facility] [id number] [facility] 2021-06-27 14:15:00 2021-06-27 14:15:00 Outpatient BERNICE [facility] [id number] [facility] 2021-06-27 14:15:00 2021-06-27 14:15:00 Outpatient BERNICE [facility] [id number] [facility] 2021-06-27 13:39:57 2021-06-27 13:54:57 [facility] 1.2.840.114 350.1.13.10 4.2.7.2.686 [id number] [facility] 2021-06-26 15:45:00 2021-06-26 15:45:00 Outpatient BERNICE [facility] [id number] [facility] 2021-06-26 15:45:00 2021-06-26 15:45:00 [facility] [id number] [facility] 2021-06-25 00:00:00 2021-06-25 00:00:00 [facility] 1.2.840.114 350.1.13.10 4.2.7.2.686 [id number] [facility] 2021-05-23 00:00:00 2021-05-23 00:00:00 Telephone Keanu [facility] Gregor?Naty [facility] 1.2840.114 350.1.13.10 4.2.7.2.686 [id number] [facility] 2021-05-22 13:00:00 2021-05-22 23:59:00 Hospital Encounter Keanu [facility] Gregor?Naty [facility] 1.2.840.114 350.1.13.10 4.2.7.2.686 [id number] [facility] 2021-05-22 16:15:00 2021-05-22 14:56:21 Outpatient R KE[facility]U [facility] [id number] [facility] 2021-05-22 16:15:00 2021-05-22 14:56:21 Outpatient R [facility] [id number] [facility] [facility] 2021-05-22 12:47:56 2021-05-22 14:56:21 Office Visit Ke[facility] Gregor?[facility] Medical Office Building 1.2840.114 350.1.13.10 4.2.7.2.686 [id number] [facility] 2021-05-22 00:00:00 2021-05-22 00:00:00 Orders Only Doctor Unassigned, [place] [facility] 1.2840.114 350.1.13.10 4.2.7.2.686 [id number] [facility] 2021-04-23 10:10:00 2021-04-23 10:10:00 Outpatient [facility] [id number] [facility] 2021-04-23 10:00:06 2021-04-23 10:00:17 Imm/Inj Visit Nurse, Hailey Dutta Immunmegha Resendiz [facility] 1.2.840.114 350.1.13.10 4.2.7.2.686 [id number] [facility] 2021-04-02 14:40:00 2021-04-02 14:40:00 Outpatient Shira RESENDIZ [facility] [id number] [facility] 2021-04-02 13:41:25 2021-04-02 13:41:44 Imm/Inj Visit Nurse, Hailey Dutta [facility] 1.2.840.114 350.1.13.10 4.2.7.2.686 [id number] [facility] 2021-01-26 00:00:00 2021-01-26 00:00:[address] [facility] 1.2.840.114 350.1.13.58 9.2.7.2.686 [id number] [facility] 2021-01-26 00:00:00 2021-01-26 00:00:[address] [facility] 1.2840.114 350.1.13.58 9.2.7.2.686 [id number] 2020-12-18 09:22:21 2020-12-18 12:11:17 Office Visit Jonas Barker [facility] 1 1.2840.114 350.1.13.58 9.2.7.2.686 [id number] [facility] 2020-12-18 09:22:21 2020-12-18 12:11:17 Office Visit NoemiPashaBaldomero Hayward Jon[facility] 1 1.840.114 350.1.13.58 9.2.7.2.686 [id number] 2020-09-06 00:00:00 2020-09-06 00:00:00 (TEL) STLMLC STLMLC [id number] [facility] 2020-07-20 00:00:00 2020-07-20 00:00:00 (TEL) STLMLC STLMLC [id number] [facility] 2020-07-12 00:00:00 2020-07-12 00:00:00 (TEL) STLMLC STLMLC [id number] [facility] 2020-06-21 00:00:00 2020-06-21 00:00:00 Outpatient STLMLC STLMLC [id number] [facility] 2020-06-12 00:00:00 2020-06-12 00:00:00 Outpatient STLMLC STLMLC [id number] [facility] 2020-06-06 00:00:00 2020-06-06 00:00:00 Outpatient STLMLC STLMLC [id number] [facility] 2020-01-26 20:05:19 2020-01-26 21:04:00 Emergency Calin Lazar [facility] 1.0.114 350.1.13.10 4.2.7.2.686 [id number] 2020-01-26 20:05:19 2020-01-26 21:04:00 Emergency Calin Lazar [facility] 1.0.114 350.1.13.10 4.2.7.2.686 [id number] [facility] 2020-01-26 00:00:00 2020-01-26 00:00:00 Orders Only Doctor Unassigned, [place] [facility] 1.840.114 350.1.13.10 4.2.7.2.686 [id number] 2020-01-26 00:00:00 2020-01-26 00:00:00 Orders Only Doctor Unassigned, [place] [facility] 1.2.840.114 350.1.13.10 4.2.7.2.686 [id number] [facility] 2020-01-20 08:00:00 2020-01-20 08:00:00 Outpatient [facility] [id number] [facility] 2020-01-20 00:00:00 2020-01-20 00:00:00 Orders Only Doctor Unassigned, [place] [facility] 1.2.840.114 350.1.13.10 4.2.7.2.686 [id number] [facility] 2020-01-20 00:00:00 2020-01-20 00:00:00 Orders Only Doctor Unassigned, [place] [facility] 1.2.840.114 350.1.13.10 4.2.7.2.686 [id number] Results Test Description Test Time Test Comments Results Result Co mments Source [facility] GLUCOSE (AUTOMATED)2023-08-30 13:51:48* Test Item Value Reference Range Interpretation Comme [facility] POCT GLU (test code = 7598131332) 105 mg/dL 70-110 Lab Interpretation (test cod e = 59352-1) Normal [facility] CenterGlycosylated Hemoglobin (A1C)2023-08-30 05:45:04* Test Item Value Reference Range Interpretation Comme [facility] HGB A1C (test code = 4548-4) 6.0 % 4.0-5.7 H SRIRAM (test code = SRIRAM) Reference RangesNormal: <5.7%Prediabetes: 5.7 - 6.4%Diabetes: > 6.5% Lab Interpretation (test code = 82596-4) Abnormal [facility] GLUCOSE (AUTOMATED)2023-08-30 02:23:04* Test Item Value Reference Range Interpretation Comme [facility] POCT GLU (test code = 1789184648) 101 mg/dL 70-110 Lab Interpretation (test cod e = 77894-6) Normal [facility] CenterCT ABDOMEN PELVIS W LKJNMDAI0742-49-91 00:26:53PROCEDURE:CT ABDOMEN PELVIS W CONTRAST ORDERING PHYSICIAN: [...] lesions. Vazquez: (S/I) = seriesnumber / image numberUnBaylor Scott & White Medical Center – WaxahachieCT CHEST PULMONARY ANGIOGRAM 2023-08-29 19:22:01CT SCAN OF [...] BONES/ CHEST WALL: No aggressive or acute abnormalities.[facility] CenterTROPONIN [id number] 17:47:43* Test Item Value Reference Range Interpretation Comme nts TROPONIN I (test code = 0337195412) 0.001 ng/mL <=0.034 SRIRAM (test code = [...] of biotin. Lab Interpretation (test code = 97863-7) Normal [facility] CenterMagnesium2024-01-26 17:36:59* Test Item Value Reference Range Interpretation Comme nts MAGNESIUM (test code = 3260739232) 1.7 mg/dL 1.7-2.4 Lab Interpretation (test cod e = 15983-8) Normal [facility] CenterCOMP. METABOLIC PANEL (01968)2023-08-29 17:36:38* Test Item Value Reference Range Interpretation Comme nts NA (test code = 0075685687) 139 mmol/L 135-145 K (test code = 9918428114) 4.1 mmol/L 3.5-5.0 CL (test code = 7946109356) 107 mmol/L 98-108 CO2 TOTAL (test code = 5121660357) 25 mmol/L 23-31 AGAP (test code = 3705501008) 7 2-16 BUN (test code = 4244746031) 13 mg/dL 7-23 GLUCOSE (test code = 8432289835) 114 mg/dL 70-110 H CREATININE (test code = 3381118833) 0.75 mg/dL 0.50-1.04 TOTAL BILI (test code = 2249614919) 0.6 mg/dL 0.1-1.1 CALCIUM (test code = 2627149708) 9.6 mg/dL 8.6-10.6 T PROTEIN (test code = 6593787032) 7.7 g/dL 6.3-8.2 ALBUMIN (test code = 9585129611) 4.1 g/dL 3.5-5.0 ALK PHOS (test code = 3124454619) 121 U/L 34-122 ALTv (test code = 1742-6) 16 U/L 5-35 AST(SGOT) (test code = 5641839382) 24 U/L 13-40 eGFR (test code = 95700-1) 94.7 mL/min/1.73m2 CKD-EPI eGFR (2020). Assuming creatinine has been stable day-to-day for at least three months, the eGFR indicates Category G1 (>= 90 mL/min/1.73 m2) Lab Interpretation (test code = 66875-8) Abnormal [facility] CenterLIPASE2024-01-26 17:36:22* Test Item Value Reference Range Interpretation Comme nts LIPASE (test code = 5639116092) 82 U/L 0-220 Lab Interpretation (test cod e = 36143-4) Normal [facility] CenterD-AFMTV6651-34-18 17:34:40* Test Item Value Reference Range Interpretation Comments D-DIMER (test code = 9425322789) 0.96 See_Comment H [Automated message] The system [...] a diagnosis. Lab Interpretation (test code = 85301-9) Abnormal [facility] CenterXR CHEST 1 [id number] 17:17:59EXAM: XR CHEST 1 08/29/2023 10:59 AM HISTORY: 53 years-old Female with chest pain . TECHNIQUE: Portable AP view of the chest. COMPARISON: None. FINDINGS: Lines and tubes: None. Cardiomediastinal: The cardiomediastinal silhouette is normal in sizeaccounting for depth of inspiration. Lungs and pleura: Low lung volumes. Noacute infiltrate or effusion. Included osseous structures show no acute abnor mality.[facility] CenterCB WITH CVFH9141-36-37 17:17:19* Test Item Value Reference Range Interpretation Comme nts WBC (test code = 6690-2) 6.09 See_Comment [Automated [email or web address]] The system which generated this result transmitted reference range: 4.30 - 11.10 10*3/?L. The reference range was not used to interpret this result as normal/abnormal. RBC (test code = 789-8) 3.87 See_Comment L [Automated [email or web address]] The system which generated this result transmitted [...] g/dL 31.6-35.1 L RDW-SD (test code = 47206-0) 52.5 fL 39.0-49.9 H RDW-CV (test code = 788-0) 17.5 % 12.0-15.5 H PLT (test code = 777-3) 344 See_Comment [Automated [employer] ge] The system which generated this result transmitted reference range: 166 - 358 10*3/?L. The reference range was not used to interpret this result as normal/abnormal. MPV (test code = 33209-7) 10.0 fL 9.5-12.9 NRBC/100 WBC (test code = 6955352315) 0.0 See_Comment [Automated [employer] ssage] The system which generated this result transmitted reference range: 0.0 - 10.0 /100 WBCs. The reference range was not used to interpret this result as normal/abnormal. NRBC x10^3 (test code = 6417329105) See_Comment [Automated [employer] ge] The system which generated this result transmitted reference range: 10*3/?L. The reference range was not used to interpret this result as normal/abnormal. GRAN MAT (NEUT) % (test code = 770-8) 68.0 % IMM GRAN % (test code = 0837612288) 0.20 % LYMPH % (test code = 736-9) 23.8 % MONO % (test code = 5905-5) 6.1 % EOS % (test code = 713-8) 1.6 % BASO % (test code = 706-2) 0.3 % GRAN MAT x10^3(ANC) (test code = 9513191545) 4.14 10*3/uL 1.88-7.09 IMM GRAN x10^3 (test code = 5487156149) 0.00-0.06 LYMPH x10^3 (test code = 731-0) 1.45 10*3/uL 1.32-3.29 MONO x10^3 (test code = 742-7) 0.37 10*3/uL 0.33-0.92 EOS x10^3 (test code = 711-2) 0.10 10*3/uL 0.03-0.39 BASO x10^3 (test code = 704-7) 0.01-0.07 Lab Interpretation (test code = 48776-1) Abnormal [facility] CenterType and Screen - This is a pre-surgical type and screen. ONCE PCHP1795-14-33 13:38:39* Test Item Value Reference Range Interpretation Comme nts ABO & RH (test code = 20) O Positive Performed at [facility] Laboratory [facility] Blood [address] Free: [phone] No. [id number] IAT (test code = 1185) Negative Performed at [facility] Blood [place] [address]Toll Free: [phone] No. [id number] [facility] CenterType and Screen - This is a pre-surgical type and screen. ONCE [id number] 13:38:39* Test Item Value Reference Range Interpretation Comme nts ABO & RH (test code = 20) O Positive Performed at [facility] Laboratory [facility] Blood [address]Toll Free: [phone] No. [id number] IAT (test code = 1185) Negative Performed at [facility] Blood [place] [address]Toll Free: [phone] No. [id number] [facility] GLUCOSE (AUTOMATED)2022-09-23 12:53:02* Test Item Value Reference Range Interpretation Comme nts POCT GLU (test code = 3456046628) 105 mg/dL 70-110 Lab Interpretation (test cod e = 86926-2) Normal [facility] GLUCOSE (AUTOMATED)2022-09-23 12:53:02* Test Item Value Reference Range Interpretation Comme nts POCT GLU (test code = 8997548434) 105 mg/dL 70-110 Lab Interpretation (test cod e = 46905-9) Normal [facility] CenterTROPONIN P4158-31-95 17:00:16* Test Item Value Reference Range Interpretation Comme nts TROPONIN I (test code = 3244849574) 0.003 ng/mL <=0.034 SRIRAM (test code = [...] of biotin. Lab Interpretation (test code = 27311-2) Normal [facility] GLUCOSE (AUTOMATED)2022-06-12 18:17:12* Test Item Value Reference Range Interpretation Comme nts POCT GLU (test code = 3687800322) 161 mg/dL 70-110 H Lab Interpretation (test cod e = 93843-4) Abnormal [facility] GLUCOSE (AUTOMATED)2022-06-12 08:00:25* Test Item Value Reference Range Interpretation Comme nts POCT GLU (test code = 5354290688) 122 mg/dL 70-110 H Lab Interpretation (test cod e = 92023-6) Abnormal [facility] GLUCOSE (AUTOMATED)2022-06-12 01:58:54* Test Item Value Reference Range Interpretation Comme nts POCT GLU (test code = 1155465905) 124 mg/dL 70-110 H Lab Interpretation (test cod e = 21433-7) Abnormal [facility] GLUCOSE (AUTOMATED)2022-06-11 22:59:46* Test Item Value Reference Range Interpretation Comme nts POCT GLU (test code = 6028409480) 115 mg/dL 70-110 H Lab Interpretation (test cod e = 73068-7) Abnormal [facility] GLUCOSE (AUTOMATED)2022-06-11 22:59:46* Test Item Value Reference Range Interpretation Comme nts POCT GLU (test code = 1359828682) 104 mg/dL 70-110 Lab Interpretation (test cod e = 57509-3) Normal [facility] GLUCOSE (AUTOMATED)2022-06-11 14:11:49* Test Item Value Reference Range Interpretation Comme nts POCT GLU (test code = 1256951977) 91 mg/dL 70-110 Lab Interpretation (test cod e = 23527-2) Normal [facility] CenterIRON OSNPK3666-74-44 09:07:50* Test Item Value Reference Range Interpretation Comme nts IRON (test code = 8951502834) 39 ug/dL 50-160 L TIBC (test code = 6180255991) 346 ug/dL 250-410 % FE SAT (test code = 8828628469) 11 % 20-50 L Lab Interpretation (test cod e = 80225-6) Abnormal [facility] CenterFERRITIN TQIZV1877-58-15 08:27:06* Test Item Value Reference Range Interpretation Comme nts FERRITIN (test code = 3679440878) 7.5 ng/mL 11.0-264.0 L SRIRAM (test code = SRIRAM) Biotin has been reported to cause a negative bias, interpret results relative to patient's use of biotin. Lab Interpretation (test code = 68315-9) Abnormal [facility] CenterN-TERMINAL OGH-BMR6240-11-08 08:01:40* Test Item Value Reference Range Interpretation Comme nts NT-proBNP (test code = 9061858334) 39 pg/mL See_Comment [Automated message] The system which generated this result transmitted reference range: <=125. The reference range was not used to interpret this result as normal/abnormal. SRIRAM (test code = SRIRAM) Biotin has been reported to cause a negative bias, interpret results relative to patient's use of biotin. Lab Interpretation (test code = 91066-8) Normal [facility] GLUCOSE (AUTOMATED)2022-06-11 07:59:15* Test Item Value Reference Range Interpretation Comme nts POCT GLU (test code = 2220132482) 141 mg/dL 70-110 H Lab Interpretation (test cod e = 73884-1) Abnormal [facility] CenterMAGNESIUM2022-11-08 07:59:15* Test Item Value Reference Range Interpretation Comme nts MAGNESIUM (test code = 4491534667) 1.6 mg/dL 1.7-2.4 L Lab Interpretation (test cod e = 57462-5) Abnormal [facility] CenterPHOSPHORUS2022-11-08 07:59:10* Test Item Value Reference Range Interpretation Comme nts PHOSPHORUS (test code = 8688826914) 2.6 mg/dL 2.5-5.0 Lab Interpretation (test cod e = 52969-9) Normal [facility] CenterURIC YRZV4301-00-01 07:59:05* Test Item Value Reference Range Interpretation Comme nts URIC ACID (test code = 4516008684) 3.0 mg/dL 2.9-6.0 Lab Interpretation (test cod e = 03215-1) Normal [facility] CenterBASIC METABOLIC PANEL (NA, K, CL, CO2, GLUCOSE, BUN, CREATININE, CA)2022-06-10 18:34:39* Test Item Value Reference Range Interpretation Comme nts NA (test code = 0851987817) 139 mmol/L 135-145 K (test code = 1456510611) 4.2 mmol/L 3.5-5.0 CL (test code = 9198801537) 105 mmol/L 98-108 CO2 TOTAL (test code = 1054085655) 28 mmol/L 23-31 AGAP (test code = 6724124102) 2-16 BUN (test code = 0359147430) 15 mg/dL 7-23 GLUCOSE (test code = 8318860747) 106 mg/dL 70-110 CREATININE (test code = 5225495898) 0.75 mg/dL 0.50-1.04 CALCIUM (test code = 7057395620) 9.0 mg/dL 8.6-10.6 eGFR (test code = 4777847710) mL/min/1.73m2 SRIRAM (test code = SRIRAM) Association [...] or urine or abnormalities in imaging tests). [facility] CenterHEPATIC FUNCTION PANEL (23617) (ALB,T.PRO,BILI T,BU/BC,ALT,AST,ALK PHOS)2022-06-10 18:34:39* Test Item Value Reference Range Interpretation Comme nts TOTAL BILI (test code = 8500804416) 0.4 mg/dL 0.1-1.1 BILI UNCON (test code = 3948988651) 0.2 mg/dL 0.1-1.1 BILI CONJ (test code = 9946499451) 0.0 mg/dL 0.0-0.3 T PROTEIN (test code = 3439531605) 6.9 g/dL 6.3-8.2 ALBUMIN (test code = 8920400211) 4.0 g/dL 3.5-5.0 ALK PHOS (test code = 9173898478) 139 U/L 34-122 H ALTv (test code = 1742-6) 23 U/L 5-35 AST(SGOT) (test code = 4916507078) 21 U/L 13-40 Lab Interpretation (test cod e = 20610-5) Abnormal [facility] CenterLIPASE2022-11-07 18:34:39* Test Item Value Reference Range Interpretation Comme nts LIPASE (test code = 8797088444) 108 U/L 0-220 Lab Interpretation (test cod e = 49705-7) Normal [facility] CenterCBC WITH WEZB8689-65-98 18:27:20* Test Item Value Reference Range Interpretation Comme nts WBC (test code = 6690-2) See_Comment [Automated messa ge] The system which generated this result transmitted reference range: 4.30 - 11.10 10*3/?L. The reference range was not used to interpret this result as normal/abnormal. RBC (test code = 789-8) See_Comment [Automated messa ge] The system which [...] 31.8 g/dL 31.6-35.1 RDW-SD (test code = 51003-2) 48.3 fL 39.0-49.9 RDW-CV (test code = 788-0) 15.4 % 12.0-15.5 PLT (test code = 777-3) See_Comment [Automated messa ge] The system which generated this result transmitted reference range: 166 - 358 10*3/?L. The reference range was not used to interpret this result as normal/abnormal. MPV (test code = 88818-8) 10.4 fL 9.5-12.9 NRBC/100 WBC (test code = 8706618934) See_Comment [Automated me ssage] The system which generated this result transmitted reference range: 0.0 - 10.0 /100 WBCs. The reference range was not used to interpret this result as normal/abnormal. NRBC x10^3 (test code = 0813539664) See_Comment [Automated me ssage] The system which generated this result transmitted reference range: 10*3/?L. The reference range was not used to interpret this result as normal/abnormal. GRAN MAT (NEUT) % (test code = 770-8) 62.1 % IMM GRAN % (test code = 7790600428) 0.50 % LYMPH % (test code = 736-9) 29.1 % MONO % (test code = 5905-5) 7.3 % EOS % (test code = 713-8) 0.6 % BASO % (test code = 706-2) 0.4 % GRAN MAT x10^3(ANC) (test code = 0942870438) 5.30 10*3/uL 1.88-7.09 IMM GRAN x10^3 (test code = 3357070433) 0.04 10*3/uL 0.00-0.06 LYMPH x10^3 (test code = 731-0) 2.48 10*3/uL 1.32-3.29 MONO x10^3 (test code = 742-7) 0.62 10*3/uL 0.33-0.92 EOS x10^3 (test code = 711-2) 0.05 10*3/uL 0.03-0.39 BASO x10^3 (test code = 704-7) 0.03 10*3/uL 0.01-0.07 [facility] Consult Notes Date/Time Note Provider Source 2023-08-30 13:19:15 KxmtEdhfIMwnL1l3PvZF V2li5jB8qP277O9ARp2iBI IQ8KrNLr6Whrg6xVWpD3AQ1352-78-42C24:19:15A ssociated Order(s): CONSULT CARDIOLOGY [facility] Cardiology ConsultPCP: Estefany EvansDate of Service: 4CHIEF COMPLAINT/reason for consult: Chest painHISTORY OF PRESENT ILLNESSThis is a 53 years old female with past med history of type 2 diabetes and morbid obesity. She came to [facility] for chest pain. It is left-sided [...] (SHX) Left 01/14/2022urgeon: Kayla Lutz MD; Location: [facility] SURGERYright shoulderMAJOR JOINT INJECTION Bilateral 09/23/2022Surgeon: Kayla Lutz MD; Location: [facility] OR LOCATIONTUBAL LIGATIONFamily HistoryProblem Relation Age of OnsetNo Significant [...] - reviewed, pertinent results as below: Chest o-pnn-dwyvpZHO:Normal sinus rhythm, nonspecific T wave abnormalityASSESSMENT/PLANPrincipal Problem:Chest [...] if we can be of further assistance.Bree Welsh MD, FACC, FASEAssociate ProfessorDivision of Cardiovascular MedicineUnBaylor Scott & White [facility] [address]-6Iabzisp afqpJS0849-38-65Z53:24:23Consult noteTXT1.2.840.854128.1.13.104.2.7.2.86184 9|[id number] for patient dpzh96593-7Udgnymw noteLNNARRATIVEFormatted C-CDA narrative textUTMBUTMB - [address] IuloDmkbpnqsfUfwrtmtmfUTFS6606347356LSWNZI VKVLMRARRDUHVDVK1220-04-52I70:24:231.2.840 .591643.1.72.3.15|1.2.840.234983.1.13.104. 2.7.2.727879_[id number] [facility] - Health History and Physical Notes Date/Time Note Provider Source 2023-08-29 20:24:02 RSWTN+9j8qKIf5Xa7Tv5xyM9y8P2ISkgK35etZ4 73ORmTn9f5c8tUoT9PaTB17Md7340-44-05C50: 24:02 MEDICINE MEGADC ADMIT H&PDate of Service: 4CHIEF COMPLAINT: chest painSubjectiveHistory of Present Xxszzdb87 yo female with pmh of allergic rhinitis, [...] (SHX) Left 01/14/2022urgeon: Kayla Lutz MD; Location: [facility] EDJOINT SURGERYright shoulderMAJOR JOINT INJECTION Bilateral 09/23/2022Surgeon: Kayla Lutz MD; Location: [facility] EDTUBAL LIGATIONFamily HistoryProblem Relation Age of OnsetNo Significant [...] EDURE:CT ABDOMEN PELVIS W CONTRASTORDERING PHYSICIAN: MARYLOU Sanabria DREVERHISTORY: Abdominal painTECHNIQUE: Helical CT of the abdomen and pelvis was performed usingnon-ionic intravenous contrast.CT scan was performed according to ALARA (as low as reasonably achievable)principle.TECHNICAL QUALITY: AdequateCOMPARISON: CT abdomen/pelvis FINDINGS CT ABDOMEN/PELVIS:Lower thorax: The lung bases are [...] as neededProphylaxis: DVT- enoxaparinCode Status: Full Code 88141-7Kpsyxlf and physical eyrdTH1577-01-92U84:39:31History and physical noteTXT1.2.840.609047.1.13.104.2.7.2.72 7879|[id number] for patient ndng74467-4Hhskzmf and physical noteLNNARRATIVEFormatted C-CDA narrative textEMCARE EMERGENCY PHYSICIAN STAFFEMCARE EMERGENCY PHYSICIAN STAFFUT[address] PlmuGvccxjginFqwhrfogeQSIV0549045669OKE TWZVAFDMFWDVATJVRLB5489-74-60L09:39:311 .2.840.243451.1.72.3.15|1.2.840.349110. 1.13.104.2.7.2.727879_[id number] [facility] STAFF [facility] Notes Date/Time Note Provider Source 2023-09-02 12:28:06 VJ8PajyNQni+NBa4Mw8Q XntdlvkakGkRvO5 RsSElTBGdqPJDZoe4llri0we4o7xb8266-5 09-02T12:28:06 TRANSITIONAL CARE MANAGEMENT ASSESSMENT09/02/2023Jazmín RowellGltshcv762160LMpqy A Salazar is a 53 year old /White female was admitted on 08/29/23 to [facility], ADC MED SURG. She was discharged on 08/30/23 with discharge disposition of HR- Routine Discharge.Admitting Physician: John Barker Diagnosis: Chest pain, unspecified typeLinked EpisodesType: Episode: Status: Noted: Resolved: Last update: Updated by:TRANSITION OF CARE TCM Active 08/30/2023 09/02/2023 12:27 PM Veronika Espinoza RNComments:TCM Mok-rgnu-pp-face outreach documentation:Discharge AssessmentChart Assessed: 09/02/23TCM Outreach Completed: 09/02/23Care Transitions Nurse CM made f/u call to patient post-discharge. No answer, call went to voicemail. CM left discreet message with CM's call back information.ROSALINDA SalazarN, RN, CCRNCare Environmental Emergencies Planner, Transitions of [phone] Appointments: 01628-6Ejwblsryh encounter WatdLO3878-46-39H95:29:19Telephone encounter NoteTXT1.2.840.025550.1.13.104.2.7. 2.451170|[id number] for patient qtjo29241-1TyvpQFNITSOELSQLblfggihe C-CDA narrative [id number] VILLASEÑOR[address] Mj[id number] 6CHBNNDTSDUJIVTKRJWCDFX3636-62-64I7 2:29:191.2.840.755245.1.72.3.15|1.2 .840.926619.1.13.104.2.7.2.727879_2 [id number] Veronika Espinoza RN [facility] 2023-09-01 14:35:55 Ervk1ygdm+eGof3nuXYq Cybm1ANhTk0K2Ev pZkLVNTIsMESXrOgxgAJHk/EkqNc85572-7 4:35:55 Care Transitions Nurse CM made f/u call to patient post-discharge. No answer, call went to voicemail. CM left discreet message with CM's call back information. CM will try again at a later time.DEVIN Salazar, RN, CCRNCare Environmental Emergencies Planner, Transitions of [phone] 90281-2Ruuojabyk encounter ZmiuGN4118-14-09G04:36:12Telephone encounter NoteTXT1.2.840.387033.1.13.104.2.7. 2.107815|[id number] for patient wkvv03939-4TobsXJFDNGDQAZEAfxnkdutg C-CDA narrative textUT[address] Bw[id number] 5CQKPNNDXYLNSZEBAFJBDDM3518-29-06H3 4:36:121.2.840.490057.1.72.3.15|1.2 .840.108926.1.13.104.2.7.2.727879_2 [id number] [facility] 2023-08-30 18:10:02 45ot5AxTWKtiRc7BZFyn BpKLpMIcyQSjGZx 1duGGzKnEAWqMUHOnoXppbwmaJ/Ve0732-2 08-30T18:10:02 The patient was seen in the hospital for chest pain. Previously mildly abnormal nuclear stress test. Will proceed with CT coronary angiography to assess CAD. 17595-4Iiatolcru encounter DgsuCA7897-16-75U09:10:46Telephone encounter NoteTXT1.2.840.628790.1.13.104.2.7. 2.651718|[id number] for patient fgez11917-1QgqrIJCRIRBFYWGSyfcddbpc C-CDA narrative text[address] Px[id number] 9PVTCJHRBQFPOXZIRCBEGXT1699-59-75W9 8:10:461.2.840.722521.1.72.3.15|1.2 .840.019975.1.13.104.2.7.2.727879_2 [id number] [facility] 2023-08-30 13:55:38 Kevuop1VaHYRw+Sh8GFp BaFTM1dGFDOeslS CV+by60ITAsHssiPQj96qRQ3UGBLE0471-9 08-30T13:55:38 Problem: Discharge PlanningGoal: Adequate for discharge08/30/2023 1355 by Julisa Parikh RNOutcome: Adequate for dischargeProblem: Discharge PlanningGoal: Adequate for discharge08/30/2023 1355 by Julisa Parikh RNOutcome: ResolvedProblem: Discharge PlanningGoal: Effective communication08/30/2023 1355 by Julisa Parikh RNOutcome: ResolvedProblem: Discharge PlanningGoal: Effective communication08/30/2023 1355 by Julisa Parikh RNOutcome: Adequate for dischargeProblem: PainGoal: Control of pain at or below patient's documented comfort goal08/30/2023 1355 by Jl, Julisa M., RNOutcome: ResolvedProblem: PainGoal: Control of pain at or below patient's documented comfort goal08/30/2023 1355 by Julisa Parikh RNOutcome: Adequate for dischargeProblem: PainGoal: Reduction in pain sensation08/30/2023 1355 by Julisa Parikh RNOutcome: ResolvedProblem: PainGoal: Reduction in pain sensation08/30/2023 1355 by Julisa Parikh RNOutcome: Adequate for dischargeProblem: Venous Thromboembolism, (actual or risk of)Goal: Absence of venous thromboembolism (Risk)08/30/2023 1355 by Julisa Parikh RNOutcome: ResolvedProblem: Venous Thromboembolism, (actual or risk of)Goal: Absence of venous thromboembolism (Risk)08/30/2023 1355 by Julisa Parikh RNOutcome: Adequate for dischargeProblem: Falls, Risk ofGoal: Absence of falls08/30/2023 1355 by Julisa Parikh RNOutcome: ResolvedProblem: Falls, Risk ofGoal: Absence of falls08/30/2023 1355 by Julisa Parikh RNOutcome: Adequate for discharge 91190-5Vdom of care spzdRI5705-04-19U84:56:13Plan of care noteTXT1.2.840.766147.1.13.104.2.7. 2.611742|[id number] for patient pwqb84281-0MwhfMUBXORSLFWZOhpcnrgmj C-CDA narrative textUT[address] Aw[id number] 1APHJVDWHEJWIGNUHXLLLBN4976-06-53G7 3:56:131.2.840.154300.1.72.3.15|1.2 .840.832538.1.13.104.2.7.2.727879_2 [id number] [facility] 2023-08-30 01:54:12 drV+50asLoDr90d3eupb AWQcD9G1Orlp9E9 c+cddjXJyCBEZkHMm0i4dB5zvjbhP7549-8 08-30T01:54:12 Problem: Discharge PlanningGoal: Adequate for dischargeOutcome: Progressing as expectedGoal: Effective communicationOutcome: Progressing as expectedProblem: PainGoal: Control of pain at or below patient's documented comfort goalOutcome: Progressing as expectedGoal: Reduction in pain sensationOutcome: Progressing as expectedProblem: Venous Thromboembolism, (actual or risk of)Goal: Absence of venous thromboembolism (Risk)Outcome: Progressing as expectedProblem: Falls, Risk ofGoal: Absence of fallsOutcome: Progressing as expected 40058-7Zzlb of care dhffKJ7954-95-81R90:54:30Plan of care noteTXT1.2.840.108656.1.13.104.2.7. 2.156748|[id number] for patient dhtk81716-5SiypCLORYVGLLRVBbsmbqiph C-CDA narrative [id number] A O'Connor RNUT54 Mcd[address] StreetSi[id number] 4RIKOWYHELVJOLEHRRFKJDL6634-80-81Y7 1:54:301.2.840.267972.1.72.3.15|1.2 .840.203454.1.13.104.2.7.2.727879_2 [id number] Samantha Rodriguez RN [facility] 2023-08-29 19:15:25 xJmvYylP8vS3DfmzTHqn aQHqSzjXELaA2Gb sXdZfrUvfHoEQGOlwo913PRPEdpCQ1330-6 08-29T19:15:25 Report given to Samantha KIDD in [place]. [address]-1Fpcuwwkyn department ThsfND2521-87-84A14:15:49[facility] NoteTXT1.2.840.227567.1.13.104.2.7. 2.740494|[id number] for patient lybw22591-0OvyrRBJOASRTXADQlisnibqw C-CDA narrative [id number] Fief RN[id number] 4BEZLCSCSUEAPANYZABONTU4417-05-31P3 9:15:491.2.840.102980.1.72.3.15|1.2 .840.123832.1.13.104.2.7.2.727879_2 [id number] Mana James RN [facility] 2023-08-29 15:10:00 +4fZ/cErqkKGD2yi89Po 8Hqgzr0gUf0FyrT RztJvdGClgLUUyJxLGDX7hfI1YGAG7397-3 08-29T15:10:00 Patient given ice for po challenge, patient actively vomiting immediately after challenge. [address]-8Btcesob[address] SjyyJB3352-32-51E44:23:18[facility] department NoteTXT1.2.840.536890.1.13.104.2.7. 2.505417|[id number] for patient gnyp60162-4DwzvINIWJBDFITTKfkolrosm C-CDA narrative [id number] M Herrera RN[id number] 8MFUXJNUERQZUQHFXMBJTDT5852-87-89Y8 5:23:181.2.840.086116.1.72.3.15|1.2 .840.562473.1.13.104.2.7.2.727879_2 [id number] Allyn Berman RN [facility] 2023-08-29 13:50:00 k0ErPgCtmvtZfgdfu2uu F0B9fwit4tBUr0I B+Z2I5L6FXie99YI2mS11SV5AYoqW1198-6 08-29T13:50:00 Patient po challenge with ice 35916-0Ixtlwonbl department TdxnLC5335-13-24A86:03:04[facility] NoteTXT1.2.840.173313.1.13.104.2.7. 2.878166|[id number] for patient yfyc26405-3KrvtQABTQZKYSAUOpldqtypp C-CDA narrative text[address] Oy[id number] 7AOGGVTDZBONCJRMZHNMTPH2578-27-23I3 4:03:041.2.840.567229.1.72.3.15|1.2 .840.482044.1.13.104.2.7.2.727879_2 [id number] [facility] 2023-08-29 10:51:43 H7ZYtN8U8EGbaM+qIzhS TRoYNj+C8rZv8qm hZw6uObki4GpXyw3iQ32aMab08x/Q0349-6 08-29T10:51:43 Report received from BERNABE James 27601-6Yhmfhvsqv department MypsKR9945-85-88G67:52:02[facility] department NoteTXT1.2.840.187059.1.13.104.2.7. 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 States N/V started last night. 32244-2Hdgzrbjur department Triage ijakQN3435-47-61J10:27:13[facility] department Triage noteTXT1.2.840.162750.1.13.104.2.7. 2.921391|[id number] for patient acee19378-9Ioeifqtrl department NoteLNNARRATIVEFormatted C-CDA narrative [id number] N Dewoody RNUT[id number] 4DRMEXEXZFIGBHYJBUJMEMH0302-35-87T0 0:27:131.2.840.065605.1.72.3.15|1.2 .840.843524.1.13.104.2.7.2.727879_2 [id number] Lillie Pathak RN [facility] 2023-08-29 10:17:00 KxPZC+mmn+H0IageYgN5 4vyNlVBLKpOXSC6 0HcZJW0g7jNV0furCB73kCOD/zCDI3230-4 0:17:00 AdmissionCareGuideline: Vomiting - OBS, ObservationBased on the indications selected for the patient, the bed status of Admit to Observation was determined to be METThe following indications were selected as present at the time of evaluation of the patient:- Vomiting that persists despite emergency department careAdmissionCare documentation entered by: Marylou Sanabria [facility], 27th edition, Copyright ? 2022 [facility] All Rights Reserved.1163-25-12I54:31:55-06:00E lectronically signed by Marylou Driver, [employer] at 08/29/2023 5:31 PM [id number] Admission Criteria1.2.840.249660.1.13.104.2.7 .4.792255.80929368-84-16T27:31:56EC Admission CriteriaTXT1.2.840.626065.1.13.104. 2.7.2.103197|[id number] for patient urlw08627-3VeznDANBAHWOFVUYnrcztkjf C-CDA narrative textUT[address] Ss[id number] 1QDAIFXRJWGWRTFXKGZEVCJ8565-59-77U1 7:31:561.2.840.285045.1.72.3.15|1.2 .840.991184.1.13.104.2.7.2.727879_2 [id number] [facility]
[2023-12-02] MEDS ORDERED: SUCCINYLCHOLINE 20 MG/ML (10 ML) IV ONE (12:30)
[2023-12-02] MEDS: METOCLOPRAMIDE 10 MG/2mL INJ IV PRN (12:53)
[2023-12-02 13:09] VITALS: BMI 40.4
[2023-12-02] MEDS: DIPHENHYDRAMINE 50 MG/ML VIAL IV PRN (15:09)
[2023-12-02] MEDS: CEFAZOLIN 1 GM in NA CHLORIDE 0.9% 50 ML IVPB SCH (16:28)
[2023-12-02 17:46] LABS: Hematocrit 23.6 % (36.0-45.0); Hemoglobin 7.4 g/dL (12.0-15.0)
--- NOTE | 2023-12-02 19:54 | OP ---
Date of Procedure: 12/02/2023 Surgeon: Aditya Escobedo MD Preoperative Diagnosis: Severe right hip arthritis. Postoperative Diagnosis: Severe right hip arthritis. Procedure: Right total hip arthroplasty using the [place] system. Estimated Blood Loss: 150 cc. Complications: There were no complications. Indications For Operation: Ms. Perez is a 53-year-old female who had previously done her left tota l hip. She has done well from that. However, unfortunately still has debilitating pain related to h er right hip and x-rays demonstrated osteoarthritic change. Risks, benefits, and alternatives of dif ferent methods of treating this were discussed with her, and she is desiring total hip arthroplasty. The specific risks associated with this were again discussed, and she states she understands things as presented and wishes to proceed. Description Of Procedure: The patient was taken to the operating room. She was given a spinal anest hetic. She was then placed supine and a Savage was placed. She was also intubated. Following this, she was then rolled left side down with her bony prominences being checked. An axillary roll being u sed. She was in appropriate position using hip positioners. Following this, her right lower extremi ty was then prepped and draped in usual sterile fashion for the procedure. This was followed by jolly almonte posterior lateral incision which was taken down carefully through skin only. Meticulous hemosta sis being maintained using Bovie electrocautery. This leads to a fairly significant amount of adipos e tissue until the fascia was encountered. A small stab wound was made in the fascia and gluteal ten don was palpated to ensure we were in the correct position. Following this, the incision was then ta varsha up to near the tip of the greater trochanter where the greater fibers of the gluteus mulugeta were encountered. They were then spread gently using finger pressure. After the sciatic nerve was palpa billy and protected as the Charnley was placed, some bursal tissue was removed to give better visualiza tion of the external rotators which were then taken down along with the capsule and tagged for later repair. This leads to the hip, which was then dislocated. It was found to have a quite short neck a s well as very degenerated head. The head was measured and found to be around a size 44 or slightly larger and the acetabulum was inspected and it was found to be oblong with superior anterior aspect b eing somewhat flattened. The labrum was removed as well as the soft tissue within the acetabulum was then sequentially reamed up to a size of 50. There were still some oblong changes anteriorly. Marcum anuradha, it was felt that if we reamed higher than 50, most likely we could encounter problems with the w all thickness. The decision was made to stop there as her contralateral side had a size 46, where a size 50 cup would be used now as we did ream to a size 49, not a 50. There is a bleeding bone. The cup was then placed. Attention was then turned to the shaft. The box machine operator was used to establish a lateral entry portal for the canal finding reamer. It was then broached up to a size 3. At this ti me, x-rays were taken which demonstrates the acetabulum may not be completely seated. It may be a li ttle bit vertical as well. The stem appeared to be appropriate size. The stem was removed. The erin tabulum was redirected and placed more deeply with better contact. Attempts were made to add some an teversion as well as decrease the verticality, however, definitely it was best fit as positioned and decision made to retain this and secured with 1 screw. Another x-ray was taken. After this, the jennifer er was placed and the final stem was placed. It was then trialed with a standard. The standard appe ared to be very stable up to 90 degrees with approximately 30 degrees internal rotation, as it was br ought across the body for abduction, it does hit some pannus and wedges the hip out quite a little bi t more easily than I would like. Decision was therefore made to trial with a +3. The +3 is a little tighter. It does appear that we were getting the wedge effect of the pannus versus patient position ing and it appears to be stable. Decision was made to continue with this. After this, the wound was copiously irrigated. The final ball was placed and it was stable in above parameters. The wound wa s again irrigated and the external rotators were repaired back to the trochanter via bone tunnels. I t was again irrigated and the fascia was closed in a watertight fashion using heavy Vicryl sutures an d followed by closure of the skin with Vicryl and lubna. The patient was then placed in Aquacel dressing, awakened, and taken to the recovery room in good condition. /JULIO CÉSAR Voice ID: [id number] Report ID: [id number]
[2023-12-02] MEDS: NA CHLORIDE 0.9% 1,000 ML IV SCH ×2 (22:43→23:45)
[2023-12-02] MEDS ORDERED: MORPHINE 2 MG/ML SYR IV PRN (23:25)
[2023-12-02] MEDS ORDERED: HYDROCODONE/APAP 7.5/325 MG TAB PO PRN (23:25)
--- NOTE | 2023-12-02 23:25 | P.HP ---
Certification for Inpatient Patient admitted to: Inpatient With expected LOS: >2 Midnights Practitioner: I am a practitioner with admitting privileges, knowledge of patient current condition, hospital course, and medical plan of care. Services: Services provided to patient in accordance with Admission requirements found in Title 42 Section 412.3 of the Code of Federal Regulations Patient History Date of Service: 12/02/23 Reason for admission: Right hip total arthroplasty History of Present Illness: 53-year-old female with past medical history of diabetes, rheumatoid arthritis, osteoarthritis, end-stage osteoarthritis of right hip who underwent right total hip arthroplasty and was admitted for further management. Patient denies any chest pain or shortness of breath. No fever or chills. No acute events Patient is being admitted and hospitalist was consulted for medical management Allergies codeine Adverse Reaction (Mild, Verified 11/28/23 08:56) Nausea/Vomiting Home Medications: Celecoxib 200 mg PO BID 11/28/23 Cyclobenzaprine [Flexeril] 10 mg PO BID 11/28/23 Dapagliflozin/Metformin HCl [Xigduo Xr 10 mg-1,000 mg Tab] 1 each PO DAILY 11/28/23 Diclofenac Sodium [Diclofenac Sodium ER] 100 mg PO DAILY 11/28/23 Duloxetine HCl 30 mg PO DAILY 11/28/23 Fesoterodine Fumarate [Fesoterodine Fumarate ER] 8 mg PO DAILY 11/28/23 Gabapentin 800 mg PO TID 11/28/23 Semaglutide [Ozempic] 2 mg SQ Q7D 11/28/23 - Past Medical/Surgical History Diabetic: Yes -: diabetes -: rheumatoid arthritis -: osteoarthritis -: BLADDER SPASMS Past Surgical History: Reviewed- Non-Contributory -: left total hip replacement 2022 -: right rotator cuff repair Psychosocial/ Personal History: Patient lives at home with her , family - Family History Mother History Unknown: Yes -: Diabetes, Other (see notes) Notes: osteoarthritis Father History Unknown: Yes -: Diabetes - Social History Smoking Status: Never smoker Alcohol use: No CD- Drugs: No Caffeine use: Yes Place of Residence: Home Review of Systems 10-point ROS is otherwise unremarkable Physical Examination - Vital Signs Temperature: 96.8 F Blood Pressure: 113/45 Pulse: 84 Respirations: 16 Pulse Ox (%): 94 - Physical Exam General: Alert, In no apparent distress, Oriented x3 HEENT: Atraumatic, Normocephalic Neck: Supple, 2+ carotid pulse no bruit Respiratory: Clear to auscultation bilaterally, Normal air movement Cardiovascular: Regular rate/rhythm, Normal S1 S2 Capillary refill: <2 Seconds Gastrointestinal: Soft and benign, W/out hepatosplenomegaly Musculoskeletal: No clubbing, Tenderness Integumentary: No breakdown, No tenderness/swelling Neurological: Normal speech, Normal strength at 5/5 x4 extr, Cranial nerves 3-12 intact, Normal reflexes 2+ Lymphatics: No axilla or inguinal lymphadenopathy - Studies Laboratory Data (last 24 hrs) 12/02/23 12/02/23 17:38 11:03 Hgb 7.4 L 7.6 L Hct 23.6 L 24.6 L Assessment and Plan - Problems (Diagnosis) (1) DM2 (diabetes mellitus, type 2) Current Visit: No Status: Acute Plan: End-stage arthritis Right total hip arthroplasty Appreciate help from orthopedics Pain control PT OT evaluation Monitor closely Diabetes Insulin sliding scale Will add on basal insulin Accu-Chek before every meal and at bedtime Bladder spasms Continue home medications Acute blood loss anemia Monitor CBC daily Transfuse as needed Possible UTI Continue antibiotics Monitor closely GI/DVT prophylaxis Advanced directive full code Qualifiers: - Advance Directives Does patient have a Living Will: No Does patient have a Durable POA for Healthcare: No - Code Status/Comfort Care Code Status: Full Code Time Spent Managing Pts Care (In Minutes): 45
[2023-12-03] MEDS: HYDROCODONE/APAP 7.5/325 MG TAB PO PRN (02:50)
[2023-12-03] MEDS: ONDANSETRON 4 MG/2 ML VIAL IV PRN (02:54)
[2023-12-03 03:37] LABS: Hematocrit 22.4 % (36.0-45.0); Hemoglobin 7.2 g/dL (12.0-15.0)
--- NOTE | 2023-12-03 07:45 | P.PN ---
Subjective Date of Service: 12/03/23 Chief Complaint: Right hip total arthroplasty History of a right total hip, orthopedic consulted for intractable right hip, pain controlled with as needed analgesia PT OT eval - Physical Exam General: Alert, In no apparent distress, Oriented x3 HEENT: Atraumatic, Normocephalic Neck: Supple, 2+ carotid pulse no bruit Respiratory: Clear to auscultation bilaterally, Normal air movement Cardiovascular: Regular rate/rhythm, Normal S1 S2 Capillary refill: <2 Seconds Gastrointestinal: Soft and benign, W/out hepatosplenomegaly Musculoskeletal: No clubbing, Tenderness Integumentary: No breakdown, No tenderness/swelling Neurological: Normal speech, Normal strength at 5/5 x4 extr, Cranial nerves 3-12 intact, Normal reflexes 2+ Lymphatics: No axilla or inguinal lymphadenopathy <Barbie Quezada - Last Filed: 12/03/23 07:47> Date of Service: 12/03/23 <Cassandra Bledsoe - Last Filed: 12/07/23 18:50> Review of Systems Per HPI <Barbie Quezada - Last Filed: 12/03/23 07:47> Physical Examination - Vital Signs Temperature: 98.8 F Blood Pressure: 114/56 Pulse: 88 Respirations: 18 Pulse Ox (%): 100 - Studies Laboratory Data (last 24 hrs) 12/03/23 12/02/23 12/02/23 02:47 17:38 11:03 Hgb 7.2 L 7.4 L 7.6 L Hct 22.4 L 23.6 L 24.6 L <Barbie Quezada - Last Filed: 12/03/23 07:47> - Studies Laboratory Data (last 24 hrs) 12/07/23 12/07/23 03:49 03:49 WBC 5.00 Hgb 8.1 L D Hct 24.9 L Plt Count 214 Sodium 138 Potassium 3.8 BUN 14 Creatinine 0.63 Glucose 108 H <Cassandra Bledsoe - Last Filed: 12/07/23 18:50> Assessment And Plan - Plan Assessment and Plan End-stage arthritis Right total hip arthroplasty Appreciate help from orthopedics Dr Escobedo Pain control, empiric NSAIDs PT OT evaluation Monitor closely financial services counselor for discharge planning Morbid obesity BMI 40 Dietitian consult diabetic education, weight loss management Diabetes type II Insulin sliding scale Will add on basal insulin Accu-Chek before every meal and at bedtime Bladder spasms Continue home medications Acute blood loss anemia Monitor CBC daily, every 6 hours H&H Transfuse as needed Possible UTI Continue antibiotics Monitor closely GI/DVT prophylaxis Advanced directive full code - Code Status/Comfort Care Code Status: Full Code Critical Care: No Time Spent Managing PTS Care (In Minutes): 35 <Barbie Quezada - Last Filed: 12/03/23 07:47> Date of Service: 12/03/23 Patient chart was reviewed and patient was seen and examined. CLIFF history and physical reviewed as well. Agree with the assessment and plan-patient had a prolonged hospital stay on her last hip repair. Anticipate the same thing at this time as her pain is very poorly controlled. Continue with physical therapy and pain control. Monitor H&H. Most of the MDM was done by myself and plan of care was discussed with CLIFF as well as the patient. Plan to discharge once . Anticipated length of stay is 3 to 4 days. <Cassandra Bledsoe - Last Filed: 12/07/23 18:50>
[2023-12-03] MEDS: CELECOXIB 100 MG CAPSULE PO SCH (08:10)
[2023-12-03] MEDS: ENOXAPARIN 40 MG/0.4 ML SQ SCH (08:10)
[2023-12-03] MEDS: CYCLOBENZAPRINE 10 MG TAB PO SCH (08:10)
[2023-12-03] MEDS: GABAPENTIN 400 MG CAP PO SCH (08:10)
[2023-12-03] MEDS: DULOXETINE 30 MG CAP PO SCH (08:11)
[2023-12-03] MEDS: DICLOFENAC SODIUM 100 MG PO SCH (09:00)
[2023-12-03] MEDS: FESOTERODINE FUMARATE 8 MG PO SCH (09:00)
[2023-12-03 11:21] LABS: Absolute Eosinophils 0.1 K/uL (0-0.5); Absolute Lymphocytes (CBC) 1.7 K/uL (0.7-4.9); Absolute Monocytes 0.7 K/uL (0.1-1.3); Absolute Neutrophil 5.3 K/uL (1.8-8.0); Basophils % 0.3 % (0-1.3); Eosinophils % 0.8 % (0-4.4); Hematocrit 22.8 % (36.0-45.0); Lymphocytes % 21.6 % (15.3-44.8); MCH 25.8 pg (27.0-35.0); MCHC 30.8 g/dL (32.0-36.0); MCV 83.9 fL (80-100); Monocytes % 9.1 % (3.3-12.3); Neutrophils % 68.2 % (41.7-73.7); Platelets 219 thou/uL (152-406); RBC Red Blood Cell Count 2.72 M/uL (3.86-4.86); Red Cell Distribution Width 18.6 % (12.1-15.2)
[2023-12-03] MEDS: HYDROMORPHONE HCL 0.5 MG/0.5 ML INJ IV PRN (11:47)
[2023-12-03] MEDS: NA CHLORIDE 0.9% 250 ML IV SCH (18:45)
[2023-12-03] MEDS: clonazePAM 0.5 MG TAB PO PRN (20:52)
[2023-12-04 03:54] LABS: Absolute Eosinophils 0.1 K/uL (0-0.5); Absolute Lymphocytes (CBC) 1.7 K/uL (0.7-4.9); Absolute Monocytes 0.8 K/uL (0.1-1.3); Absolute Neutrophil 5.2 K/uL (1.8-8.0); Basophils % 0.2 % (0-1.3); Eosinophils % 1.8 % (0-4.4); Hematocrit 28.4 % (36.0-45.0); Hemoglobin 8.9 g/dL (12.0-15.0); Lymphocytes % 21.5 % (15.3-44.8); MCH 26.2 pg (27.0-35.0); MCHC 31.4 g/dL (32.0-36.0); MCV 83.4 fL (80-100); MPV 8.4 fL (7.6-11.3); Monocytes % 10.4 % (3.3-12.3); Neutrophils % 66.1 % (41.7-73.7); Platelets 195 thou/uL (152-406); RBC Red Blood Cell Count 3.41 M/uL (3.86-4.86); Red Cell Distribution Width 18.5 % (12.1-15.2)
[2023-12-04 04:00] LABS: Anion Gap 6.7 mEq/L (5.0-15.0); Potassium 3.7 mEq/L (3.5-5.1)
--- NOTE | 2023-12-04 12:20 | P.PN ---
Subjective Date of Service: 12/04/23 Chief Complaint: Right hip total arthroplasty History of a right total hip, orthopedic consulted for intractable right hip, pain controlled with as needed analgesia PT OT eval encouraged to walk with therapy BMI 40, dietitian consult on weight loss, patient currently taking Ozempic pa tient refused dietary education - Physical Exam General: Alert, In no apparent distress, Oriented x3 HEENT: Atraumatic, Normocephalic Neck: Supple, 2+ carotid pulse no bruit Respiratory: Clear to auscultation bilaterally, Normal air movement Cardiovascular: Regular rate/rhythm, Normal S1 S2 Capillary refill: <2 Seconds Gastrointestinal: Soft and benign, W/out hepatosplenomegaly Musculoskeletal: No clubbing, Tenderness with range of motion Integumentary: No breakdown, No tenderness/swelling, dry surgical dressing right hip Neurological: Normal speech, Normal strength at 5/5 x4 extr, Cranial nerves 3-12 intact, Normal reflexes 2+ Lymphatics: No axilla or inguinal lymphadenopathy <Barbie Quezada - Last Filed: 12/04/23 19:33> Date of Service: 12/04/23 <Cassandra Bledsoe - Last Filed: 12/07/23 18:51> Review of Systems per HPI <Barbie Quezada - Last Filed: 12/04/23 19:33> Physical Examination - Vital Signs Temperature: 98.0 F Blood Pressure: 99/42 Pulse: 98 Respirations: 17 Pulse Ox (%): 93 - Studies Laboratory Data (last 24 hrs) 12/04/23 12/04/23 12/04/23 03:00 02:45 02:45 WBC 7.90 Hgb Cancelled 8.9 L D Hct Cancelled 28.4 L Plt Count 195 Sodium 141 Potassium 3.7 BUN 15 Creatinine 1.10 H Glucose 124 H <Barbie Quezada - Last Filed: 12/04/23 19:33> - Studies Laboratory Data (last 24 hrs) 12/07/23 12/07/23 03:49 03:49 WBC 5.00 Hgb 8.1 L D Hct 24.9 L Plt Count 214 Sodium 138 Potassium 3.8 BUN 14 Creatinine 0.63 Glucose 108 H <Cassandra Bledsoe - Last Filed: 12/07/23 18:51> Assessment And Plan - Plan Assessment and Plan End-stage arthritis Right total hip arthroplasty Appreciate help from orthopedics Dr Escobedo Pain control, empiric NSAIDs as needed PT OT evaluation, treatment patient is declining PT OT at time Monitor closely manager support services for discharge planning plan to discharge home with home health Morbid obesity BMI 40 Dietitian consult diabetic education, weight loss management patient refused dietary education Diabetes type II Insulin sliding scale Will add on basal insulin Accu-Chek before every meal and at bedtime Bladder spasms Continue home medications Acute blood loss anemia Monitor CBC daily, every 6 hours H&H Transfuse as needed Transfused 2 units packed red blood cells Possible UTI Continue antibiotics Monitor closely GI/DVT prophylaxis Advanced directive full code Disposition Home with home health after discharge Discharge Plan: Home (Home health) - Code Status/Comfort Care Code Status: Full Code Critical Care: No Time Spent Managing PTS Care (In Minutes): 35 <Barbie Quezada - Last Filed: 12/04/23 19:33>
--- NOTE | 2023-12-04 12:20 | P.PN ---
Subjective Date of Service: 12/05/23 Chief Complaint: Right hip total arthroplasty History of a right total hip, orthopedic consulted for intractable right hip, pain controlled with as needed analgesia PT OT eval, patient encouraged to work with therapy - Physical Exam General: Alert, In no apparent distress, Oriented x3 HEENT: Atraumatic, Normocephalic Neck: Supple, 2+ carotid pulse no bruit Respiratory: Clear to auscultation bilaterally, Normal air movement Cardiovascular: Regular rate/rhythm, Normal S1 S2 Capillary refill: <2 Seconds Gastrointestinal: Soft and benign, W/out hepatosplenomegaly Musculoskeletal: No clubbing, Tenderness Integumentary: No breakdown, No tenderness/swelling Neurological: Normal speech, Normal strength at 5/5 x4 extr, Cranial nerves 3-12 intact, Normal reflexes 2+ Lymphatics: No axilla or inguinal lymphadenopathy Review of Systems Per HPI Physical Examination - Vital Signs Temperature: 98.0 F Blood Pressure: 99/42 Pulse: 98 Respirations: 17 Pulse Ox (%): 93 - Studies Laboratory Data (last 24 hrs) 12/04/23 12/04/23 12/04/23 03:00 02:45 02:45 WBC 7.90 Hgb Cancelled 8.9 L D Hct Cancelled 28.4 L Plt Count 195 Sodium 141 Potassium 3.7 BUN 15 Creatinine 1.10 H Glucose 124 H Assessment And Plan - Plan Assessment and Plan End-stage arthritis Right total hip arthroplasty Appreciate help from orthopedics Dr Escobedo Pain control, empiric NSAIDs PT OT evaluation Monitor closely rehabilitation services coordinator for discharge planning Morbid obesity BMI 40 Dietitian consult diabetic education, weight loss management Diabetes type II Insulin sliding scale Will add on basal insulin Accu-Chek before every meal and at bedtime Bladder spasms Continue home medications Acute blood loss anemia Monitor CBC daily, every 6 hours H&H Transfuse as needed Possible UTI Continue antibiotics Monitor closely GI/DVT prophylaxis Advanced directive full code Discharge Plan: Home - Code Status/Comfort Care Code Status: Full Code Critical Care: No Time Spent Managing PTS Care (In Minutes): 35
[2023-12-05 10:04] LABS: Absolute Eosinophils 0.2 K/uL (0-0.5); Absolute Lymphocytes (CBC) 1.6 K/uL (0.7-4.9); Absolute Monocytes 0.6 K/uL (0.1-1.3); Absolute Neutrophil 3.9 K/uL (1.8-8.0); Basophils % 0.3 % (0-1.3); Eosinophils % 3.2 % (0-4.4); Hematocrit 27.1 % (36.0-45.0); Hemoglobin 8.5 g/dL (12.0-15.0); Lymphocytes % 25.7 % (15.3-44.8); MCH 26.2 pg (27.0-35.0); MCHC 31.4 g/dL (32.0-36.0); MCV 83.3 fL (80-100); MPV 8.5 fL (7.6-11.3); Monocytes % 8.9 % (3.3-12.3); Neutrophils % 61.9 % (41.7-73.7); Nucleated Red Blood Cells % 0.1 % (0-0); Platelets 215 thou/uL (152-406); RBC Red Blood Cell Count 3.25 M/uL (3.86-4.86); Red Cell Distribution Width 19.1 % (12.1-15.2)
[2023-12-05] MEDS: BISACODYL E.C. 5 MG TAB PO SCH (10:42)
--- NOTE | 2023-12-05 19:17 | P.PN ---
Subjective Date of Service: 12/05/23 Chief Complaint: Right hip total arthroplasty History of a right total hip, orthopedic consulted for intractable right hip, pain controlled with as needed analgesia PT OT eval, patient encouraged to work with therapy Reports constipation will order as needed. - Physical Exam General: Alert, In no apparent distress, Oriented x3 HEENT: Atraumatic, Normocephalic Neck: Supple, 2+ carotid pulse no bruit Respiratory: Clear to auscultation bilaterally, Normal air movement Cardiovascular: Regular rate/rhythm, Normal S1 S2 Capillary refill: <2 Seconds Gastrointestinal: Soft and benign, W/out hepatosplenomegaly Musculoskeletal: No clubbing, Tenderness Integumentary: No breakdown, No tenderness/swelling Neurological: Normal speech, Normal strength at 5/5 x4 extr, Cranial nerves 3-12 intact, Normal reflexes 2+ Lymphatics: No axilla or inguinal lymphadenopathy Review of Systems Per HPI Physical Examination - Vital Signs Temperature: 98.0 F Blood Pressure: 99/42 Pulse: 98 Respirations: 17 Pulse Ox (%): 93 Assessment And Plan - Plan Assessment and Plan End-stage arthritis Right total hip arthroplasty Appreciate help from orthopedics Dr Escobedo Pain control, empiric NSAIDs PT OT evaluation encouraged to work with PT OT Monitor closely therapeutic activities services worker for discharge planning Constipation PRNs. Stool softener Morbid obesity BMI 40 Dietitian consult diabetic education, weight loss management patient refused education for weight loss/refused dietitian consult Diabetes type II Insulin sliding scale Will add on basal insulin Accu-Chek before every meal and at bedtime Bladder spasms Continue home medications Acute blood loss anemia Monitor CBC daily, every 6 hours H&H Transfuse as needed Possible UTI Continue antibiotics Monitor closely GI/DVT prophylaxis Advanced directive full code Discharge Plan: Home Critical Care: No Time Spent Managing PTS Care (In Minutes): 35
[2023-12-05] MEDS: LIDOCAINE 5% OINT 30 GM TUBE TOP SCH (21:00)
[2023-12-05] MEDS ORDERED: MUPIROCIN 2% OINT 22GM TUBE TOP ONE (21:56)
[2023-12-05] MEDS: MUPIROCIN 2% OINT 22GM TUBE TOP SCH (22:24)
[2023-12-06 03:55] LABS: Absolute Eosinophils 0.2 K/uL (0-0.5); Absolute Lymphocytes (CBC) 1.2 K/uL (0.7-4.9); Absolute Monocytes 0.6 K/uL (0.1-1.3); Absolute Neutrophil 4.7 K/uL (1.8-8.0); Basophils % 0.4 % (0-1.3); Eosinophils % 2.9 % (0-4.4); Hematocrit 27.8 % (36.0-45.0); Hemoglobin 8.9 g/dL (12.0-15.0); MCH 26.8 pg (27.0-35.0); MCHC 32.1 g/dL (32.0-36.0); MCV 83.6 fL (80-100); MPV 7.8 fL (7.6-11.3); Monocytes % 8.4 % (3.3-12.3); Neutrophils % 70.3 % (41.7-73.7); Nucleated Red Blood Cells % 0.1 % (0-0); Platelets 238 thou/uL (152-406); RBC Red Blood Cell Count 3.33 M/uL (3.86-4.86); Red Cell Distribution Width 18.5 % (12.1-15.2)
[2023-12-06 04:10] LABS: Anion Gap 5.3 mEq/L (5.0-15.0); Potassium 4.3 mEq/L (3.5-5.1)
--- NOTE | 2023-12-06 08:11 | P.PN ---
Subjective Date of Service: 12/07/23 Chief Complaint: Right hip total arthroplasty History of a right total hip, orthopedic consulted for intractable right hip, pain controlled with as needed analgesia PT OT eval, patient encouraged to work with therapy Reports constipation will order as needed. She reports unwitnessed fall today, LUE, LLE pain, will order LUE/LLE xray - Physical Exam General: Alert, In no apparent distress, Oriented x3 HEENT: Atraumatic, Normocephalic Neck: Supple, 2+ carotid pulse no bruit Respiratory: Clear to auscultation bilaterally, Normal air movement Cardiovascular: Regular rate/rhythm, Normal S1 S2 Capillary refill: <2 Seconds Gastrointestinal: Soft and benign, W/out hepatosplenomegaly Musculoskeletal: No clubbing, Tenderness Integumentary: No breakdown, No tenderness/swelling Neurological: Normal speech, Normal strength at 5/5 x4 extr, Cranial nerves 3-12 intact, Normal reflexes 2+ Lymphatics: No axilla or inguinal lymphadenopathy Review of Systems per HPI Physical Examination - Vital Signs Temperature: 98.2 F Blood Pressure: 109/56 Pulse: 107 Respirations: 15 Pulse Ox (%): 91 - Studies Laboratory Data (last 24 hrs) 12/06/23 12/06/23 12/05/23 03:36 03:36 06:16 WBC 6.70 Hgb 8.9 L Hct 27.8 L Plt Count 238 Sodium 140 141 Potassium 4.3 4.0 BUN 14 14 Creatinine 0.79 0.76 Glucose 129 H 114 H 12/05/23 06:16 WBC 6.20 Hgb 8.5 L Hct 27.1 L Plt Count 215 Sodium Potassium BUN Creatinine Glucose Assessment And Plan - Plan Assessment and Plan End-stage arthritis Right total hip arthroplasty status post RTHA 11/28 Dr Escobedo (plan to [place] home w [facility], PT) needs RW, possible shower bench Appreciate help from orthopedics Dr Escobedo Pain control, empiric NSAIDs PT OT evaluation encouraged to work with PT OT Monitor closely donor services technician for discharge planning reported unwitnessed fall today, LUE,LLE Xray to rule out fx Right forearm x-ray FINDINGS/IMPRESSION: No acute fracture. No malalignment. No significant focal degenerative changes. Hip x-ray FINDINGS/IMPRESSION: Intact right hip arthroplasty. No periprosthetic fractures. No acute fractures. The arthroplasty is located. Constipation PRNs. Stool softener Morbid obesity BMI 40 Dietitian consult diabetic education, weight loss management patient refused education for weight loss/refused dietitian consult Diabetes type II Insulin sliding scale Will add on basal insulin Accu-Chek before every meal and at bedtime Bladder spasms Continue home medications Acute blood loss anemia Monitor CBC daily, every 6 hours H&H Transfuse as needed Possible UTI Continue antibiotics Monitor closely GI/DVT prophylaxis Advanced directive full code Discharge Plan: Home - Code Status/Comfort Care Code Status: Full Code Critical Care: No Time Spent Managing PTS Care (In Minutes): 35
--- NOTE | 2023-12-06 08:17 | P.DS ---
Admission Date: 12/04/23 Discharge Date: 12/06/23 Disposition: [place] HOME/HOME HEALTH CARE Discharge Condition: GOOD Reason for Admission: Right hip total arthroplasty Brief History of Present Illness: 53-year-old female with past medical history of diabetes, rheumatoid arthritis, osteoarthritis, end-stage osteoarthritis of right hip who underwent right total hip arthroplasty and was admitted for further management. Patient denies any chest pain or shortness of breath. No fever or chills. - Physical Exam General: Alert, In no apparent distress, Oriented x3 HEENT: Atraumatic, Normocephalic Neck: Supple, 2+ carotid pulse no bruit Respiratory: Clear to auscultation bilaterally, Normal air movement Cardiovascular: Regular rate/rhythm, Normal S1 S2 Capillary refill: <2 Seconds Gastrointestinal: Soft and benign, W/out hepatosplenomegaly Musculoskeletal: No clubbing, Tenderness Integumentary: No breakdown, No tenderness/swelling Neurological: Normal speech, Normal strength at 5/5 x4 extr, Cranial nerves 3-12 intact, Normal reflexes 2+ Lymphatics: No axilla or inguinal lymphadenopathy Hospital Course: 53 female with past medical history of diabetes, rheumatoid arthritis, osteoarthritis, end-stage osteoarthritis of right hip who underwent right total hip arthroplasty and was admitted for further management. Was noted to have osteoarthritis. She was evaluated by PT surgery.Condition improved with right total hip arthroplasty Patient tolerating diet, stable for discharge to home with follow-up appointment with primary care physician. Follow-up with orthopedic surgery after, discharged home with home health, PT PROBLEM: rheumatoid arthritis, osteoarthritis, end-stage osteoarthritis of right hip status post RTHA 11/28 Dr Escobedo (plan to [place] home w [facility], PT) needs RW, possible shower bench Constipation as needed. Diabetes, patient refused diabetes education with dietitian Morbid obesity BMI over 40 Report unwitnessed fall in the right upper extremity right lower extremity pain x-rays right upper extremity right lower extremity negative for acute Anemia received 2 units of packed red blood cells monitor H&H outpatient No driving or or operating heavy equipment while on as needed analgesia/[place] Rad/Lab/Micro: 11/04 postoperative hip x-ray FINDINGS: Three intraoperative films obtained demonstrating performance of a right hip arthroplasty No significant abnormality is displayed 12/05 Left upper extremity left lower extremity Continue home medicines as previously prescribed GOAL: Clear understanding of disease process INSTRUCTIONS: Physician Discharge Instructions: -Follow-up with PCP in 1 to 2 weeks -Please call Dr. Bledsoe at [phone] if any questions regarding hospital stay -Please call nursing station at [phone] if any nursing or medication questions -Return to the emergency room if symptoms worsen Diet: ADA, low sodium Activity: Fall precautions Vital Signs/Physical Exam: Temp Pulse Resp BP Pulse Ox 98.2 F 107 H 15 109/56 L 91 12/06/23 08:11 12/06/23 08:11 12/06/23 08:11 12/06/23 08:11 12/06/23 08:11 Laboratory Data at Discharge: WBC 6.70 thou/uL (4.3-10.9) 12/06/23 03:36 Hgb 8.9 g/dL (12.0-15.0) L 12/06/23 03:36 Hct 27.8 % (36.0-45.0) L 12/06/23 03:36 Plt Count 238 thou/uL (152-406) 12/06/23 03:36 PT 11.1 SECONDS (9.5-12.5) 11/28/23 09:30 INR 1.01 11/28/23 09:30 APTT 31.9 SECONDS (24.3-36.9) 11/28/23 09:30 Sodium 140 mEq/L (136-145) 12/06/23 03:36 Potassium 4.3 mEq/L (3.5-5.1) 12/06/23 03:36 BUN 14 mg/dL (7-18) 12/06/23 03:36 Creatinine 0.79 mg/dL (0.55-1.02) 12/06/23 03:36 Glucose 129 mg/dL (74-106) H 12/06/23 03:36 Total Bilirubin 0.3 mg/dL (0.2-1.0) 11/28/23 09:30 AST 9 U/L (15-37) L 11/28/23 09:30 ALT 14 U/L (13-56) 11/28/23 09:30 Alkaline Phosphatase 114 U/L (45-117) 11/28/23 09:30 Home Medications: Celecoxib 200 mg PO BID 11/28/23 Cyclobenzaprine [Flexeril*] 10 mg PO BID 11/28/23 Dapagliflozin/Metformin HCl [Xigduo Xr 10 mg-1,000 mg Tab] 1 each PO DAILY 11/28/23 Diclofenac Sodium [Diclofenac Sodium ER] 100 mg PO DAILY 11/28/23 Duloxetine HCl 30 mg PO DAILY 11/28/23 Fesoterodine Fumarate [Fesoterodine Fumarate ER] 8 mg PO DAILY 11/28/23 Gabapentin 800 mg PO TID 11/28/23 Semaglutide [Ozempic] 2 mg SQ Q7D 11/28/23 Docusate [Colace Cap*] 100 mg PO DAILY PRN #30 cap 12/05/23 Hydrocodone 10/APAP 325 [[place] 10/325] 1 tab PO Q6H PRN #30 tab 12/05/23 clonazePAM [Klonopin*] 0.5 mg PO BEDTIME PRN #20 tab 12/05/23 clonazePAM [Klonopin] 0.5 mg PO BEDTIME PRN PRN #30 tab 12/05/23 New Medications: Docusate [Colace Cap*] 100 mg PO DAILY PRN #30 cap PRN Reason: Constipation clonazePAM [Klonopin] 0.5 mg PO BEDTIME PRN PRN #30 tab PRN Reason: Insomnia Hydrocodone 10/APAP 325 [[place] 10/325] 1 tab PO Q6H PRN #30 tab PRN Reason: Pain Physician Discharge Instructions: 53 female with past medical history of diabetes, rheumatoid arthritis, osteoarthritis, end-stage osteoarthritis of right hip who underwent right total hip arthroplasty and was admitted for further management. Was noted to have osteoarthritis. She was evaluated by PT surgery.Condition improved with right total hip arthroplasty Patient tolerating diet, stable for discharge to home with follow-up appointment with primary care physician. Follow-up with orthopedic surgery after PROBLEM: rheumatoid arthritis, osteoarthritis, end-stage osteoarthritis of right hip status post RTHA 11/28 Dr Escobedo (plan to [place] home w [facility], PT) needs RW, possible shower bench Constipation PRNs. As needed. Diabetes, patient refused diabetes education with dietitian Morbid obesity BMI over 40 Report unwitnessed fall in the right upper extremity right lower extremity pain x-rays right upper extremity right lower extremity negative for acute Anemia received 2 units of packed red blood cells monitor H&H outpatient No driving or or operating heavy equipment while on as needed analgesia/[place] Rad/Lab/Micro: 11/04 postoperative hip x-ray FINDINGS: Three intraoperative films obtained demonstrating performance of a right hip arthroplasty No significant abnormality is displayed 12/05 Left upper extremity left lower extremity Continue home medicines as previously prescribed GOAL: Clear understanding of disease process INSTRUCTIONS: Physician Discharge Instructions: -Follow-up with PCP in 1 to 2 weeks -Please call Dr. Bledsoe at [phone] if any questions regarding hospital stay -Please call nursing station at [phone] if any nursing or medication questions -Return to the emergency room if symptoms worsen Diet: ADA, low sodium Activity: Fall precautions Diet: AHA Activity: Hip precaution Followup: Aditya Escobedo MD [ACTIVE - CAN ADMIT] - Kenya Evans NP [Primary Care Provider] - Time spent managing pt's care (in minutes): 55
--- NOTE | 2023-12-06 09:05 | RAD REPORT ---
EXAM DESCRIPTION: RAD - Hip Right 2 View - 12/06/2023 8:55 am CLINICAL HISTORY: pt states she fell COMPARISON: Hip Right 1 View dated 12/02/2023; Hip Right 2 View dated 12/14/2020 FINDINGS/IMPRESSION: Intact right hip arthroplasty. No periprosthetic fractures. No acute fractures. The arthroplasty is located.
--- NOTE | 2023-12-06 09:05 | RAD REPORT ---
EXAM DESCRIPTION: RAD - Forearm Right - 12/06/2023 8:55 am CLINICAL HISTORY: pt states she fell, c/o pain to R arm COMPARISON: No comparisons FINDINGS/IMPRESSION: No acute fracture. No malalignment. No significant focal degenerative changes.
[2023-12-06] MEDS: LIDOCAINE 5% OINT 30 GM TUBE TOP SCH (11:45)
[2023-12-06] MEDS: HYDROCODONE/APAP 7.5/325 MG TAB PO PRN (17:09)
[2023-12-06] MEDS: MORPHINE 2 MG/ML SYR IV ONE (22:56)
[2023-12-07 04:34] LABS: Absolute Eosinophils 0.2 K/uL (0-0.5); Absolute Lymphocytes (CBC) 0.8 K/uL (0.7-4.9); Absolute Monocytes 0.4 K/uL (0.1-1.3); Absolute Neutrophil 3.6 K/uL (1.8-8.0); Basophils % 0.6 % (0-1.3); Eosinophils % 4.3 % (0-4.4); Hematocrit 24.9 % (36.0-45.0); Hemoglobin 8.1 g/dL (12.0-15.0); Lymphocytes % 15.3 % (15.3-44.8); MCH 26.9 pg (27.0-35.0); MCHC 32.4 g/dL (32.0-36.0); MPV 7.8 fL (7.6-11.3); Monocytes % 8.4 % (3.3-12.3); Neutrophils % 71.4 % (41.7-73.7); Platelets 214 thou/uL (152-406); RBC Red Blood Cell Count 3.01 M/uL (3.86-4.86); Red Cell Distribution Width 18.8 % (12.1-15.2)
[2023-12-07 04:57] LABS: Anion Gap 1.8 mEq/L (5.0-15.0); Potassium 3.8 mEq/L (3.5-5.1)
[2023-12-07] MEDS: MORPHINE 2 MG/ML SYR IV ONE (22:27)
[2023-12-07] MEDS: ZOLPIDEM TARTRATE 5 MG TABLET ONE (23:59)
[2023-12-08] MEDS: KETOROLAC 30 MG/ML INJ IV ONE (00:02)
[2023-12-08] MEDS: ZOLPIDEM TARTRATE 5 MG TABLET PO SCH (00:02)
[2023-12-08 08:51] LABS: Hematocrit 25.4 % (36.0-45.0)
[2023-12-08 09:08] VITALS: O2SAT 95
--- NOTE | 2023-12-08 13:22 | P.DS ---
Admission Date: 12/04/23 Discharge Date: 12/08/23 Disposition: [place] HOME/HOME HEALTH CARE Discharge Condition: GOOD Reason for Admission: Right hip total arthroplasty Brief History of Present Illness: 53-year-old female with past medical history of diabetes, rheumatoid arthritis, osteoarthritis, end-stage osteoarthritis of right hip who underwent right total hip arthroplasty and was admitted for further management. Patient denies any chest pain or shortness of breath. No fever or chills. No acute events Patient is being admitted and hospitalist was consulted for medical management Hospital Course: Pt is a 53 yo female with past medical history of diabetes, rheumatoid arthritis, osteoarthritis, end-stage osteoarthritis of right hip who underwent right total hip arthroplasty. Pt did well post-op. She continued to work well with the physical therapist. We gave prn norco and prn zofran. The psysical therapist cleared her to be discharged to home. Pt was advsed to lose weight. She was in NAD prior to discharge. Vital Signs/Physical Exam: Temp Pulse Resp BP Pulse Ox 97.6 F 103 H 17 122/58 L 96 12/08/23 12:00 12/08/23 12:00 12/08/23 12:00 12/08/23 12:00 12/08/23 12:00 Laboratory Data at Discharge: WBC 5.00 thou/uL (4.3-10.9) 12/07/23 03:49 Hgb 8.0 g/dL (12.0-15.0) L 12/08/23 08:14 Hct 25.4 % (36.0-45.0) L 12/08/23 08:14 Plt Count 214 thou/uL (152-406) 12/07/23 03:49 PT 11.1 SECONDS (9.5-12.5) 11/28/23 09:30 INR 1.01 11/28/23 09:30 APTT 31.9 SECONDS (24.3-36.9) 11/28/23 09:30 Sodium 138 mEq/L (136-145) 12/07/23 03:49 Potassium 3.8 mEq/L (3.5-5.1) 12/07/23 03:49 BUN 14 mg/dL (7-18) 12/07/23 03:49 Creatinine 0.63 mg/dL (0.55-1.02) 12/07/23 03:49 Glucose 108 mg/dL (74-106) H 12/07/23 03:49 Total Bilirubin 0.3 mg/dL (0.2-1.0) 11/28/23 09:30 AST 9 U/L (15-37) L 11/28/23 09:30 ALT 14 U/L (13-56) 11/28/23 09:30 Alkaline Phosphatase 114 U/L (45-117) 11/28/23 09:30 Home Medications: Celecoxib 200 mg PO BID 11/28/23 Cyclobenzaprine [Flexeril*] 10 mg PO BID 11/28/23 Dapagliflozin/Metformin HCl [Xigduo Xr 10 mg-1,000 mg Tab] 1 each PO DAILY 11/28/23 Diclofenac Sodium [Diclofenac Sodium ER] 100 mg PO DAILY 11/28/23 Duloxetine HCl 30 mg PO DAILY 11/28/23 Fesoterodine Fumarate [Fesoterodine Fumarate ER] 8 mg PO DAILY 11/28/23 Gabapentin 800 mg PO TID 11/28/23 Semaglutide [Ozempic] 2 mg SQ Q7D 11/28/23 Docusate [Colace Cap*] 100 mg PO DAILY PRN #30 cap 12/05/23 Hydrocodone 10/APAP 325 [[place] 10/325] 1 tab PO Q6H PRN #30 tab 12/05/23 clonazePAM [Klonopin*] 0.5 mg PO BEDTIME PRN #20 tab 12/05/23 clonazePAM [Klonopin] 0.5 mg PO BEDTIME PRN PRN #30 tab 12/05/23 Ondansetron [Zofran] 4 mg PO Q6H PRN 10 Days #30 tab 12/08/23 New Medications: Docusate [Colace Cap*] 100 mg PO DAILY PRN #30 cap PRN Reason: Constipation clonazePAM [Klonopin] 0.5 mg PO BEDTIME PRN PRN #30 tab PRN Reason: Insomnia Hydrocodone 10/APAP 325 [[place] 10/325] 1 tab PO Q6H PRN #30 tab PRN Reason: Pain Ondansetron [Zofran] 4 mg PO Q6H PRN 10 Days #30 tab PRN Reason: Nausea / Vomiting Physician Discharge Instructions: 53 female with past medical history of diabetes, rheumatoid arthritis, osteoarthritis, end-stage osteoarthritis of right hip who underwent right total hip arthroplasty and was admitted for further management. Was noted to have osteoarthritis. She was evaluated by PT surgery.Condition improved with right total hip arthroplasty Patient tolerating diet, stable for discharge to home with follow-up appointment with primary care physician. Follow-up with orthopedic surgery after PROBLEM: rheumatoid arthritis, osteoarthritis, end-stage osteoarthritis of right hip status post RTHA 11/28 Dr Escobedo (plan to dc home w [facility], PT) needs RW, possible shower bench Constipation PRNs. As needed. Diabetes, patient refused diabetes education with dietitian Morbid obesity BMI over 40 Report unwitnessed fall in the right upper extremity right lower extremity pain x-rays right upper extremity right lower extremity negative for acute Anemia received 2 units of packed red blood cells monitor H&H outpatient No driving or or operating heavy equipment while on as needed analgesia/[place] Rad/Lab/Micro: 11/04 postoperative hip x-ray FINDINGS: Three intraoperative films obtained demonstrating performance of a right hip arthroplasty No significant abnormality is displayed 12/05 Left upper extremity left lower extremity Continue home medicines as previously prescribed GOAL: Clear understanding of disease process INSTRUCTIONS: Physician Discharge Instructions: -Follow-up with PCP in 1 to 2 weeks -Please call Dr. Bledsoe at [phone] if any questions regarding hospital stay -Please call nursing station at [phone] if any nursing or medication quest ions -Return to the emergency room if symptoms worsen Diet: ADA, low sodium Activity: Fall precautions Diet: AHA Activity: Hip precaution Followup: Aditya Escobedo MD [ACTIVE - CAN ADMIT] - 1-2 Weeks Kenya Evans NP [Primary Care Provider] - 1-2 Weeks
[2023-12-08 13:36] VITALS: BP 122/58; TEMP 97.6
== END 2023-12-08 14:17 | disposition home health service (06) | DRG 470 ==
LOC: OR 05:51 → 2ND 09:36 → OBSVTOIN 12-04 10:48
PROVIDERS: ADMIT Orthopaedic Surgery; ATTEND Orthopaedic Surgery
PROC: 0SR903Z Replacement of Right Hip Joint with Ceramic Synthetic Substitute, Open Approach (ICD-10-PCS; principal; 2023-12-02 07:00)
PROC: 30233N1 Transfusion of Nonautologous Red Blood Cells into Peripheral Vein, Percutaneous Approach (ICD-10-PCS; 2023-12-03)
DX: M16.11 Unilateral primary osteoarthritis, right hip (principal); D62 Acute posthemorrhagic anemia; N39.0 Urinary tract infection, site not specified; Z68.41 Body mass index [BMI] 40.0-44.9, adult; E66.01 Morbid (severe) obesity due to excess calories; E11.9 Type 2 diabetes mellitus without complications; M06.9 Rheumatoid arthritis, unspecified; K59.00 Constipation, unspecified; N32.89 Other specified disorders of bladder; Z88.5 Allergy status to narcotic agent; Z96.642 Presence of left artificial hip joint; Z79.899 Other long term (current) drug therapy
CPT/HCPCS: 36415; 36430; 80048; 80053; 81001; 82947; 85014; 85018; 85025; 85610; 85730; 86850; 86900; 86901; 86920; 88304; 88305; 88311; 94760; 97110; 97116; 97161; 97165; 97530; A4216; G0378; J0690; J1170; J1200; J1650; J2001; J2250; J2270; J2371; J2405; J2704; J2765; J3010; J3475; J7030; J7050; P9016

== ENCOUNTER 2024-03-29 18:04 | Emergency (ER) | payer OTHER ==
--- OUTSIDE RECORDS SUMMARY | 2024-03-29 18:11 | XMS REPORT | Continuity of Care Document ---
Author Name Unknown Address [address] [facility] [place] [address] [facility] thconnect Address [address] [facility] [address] [place] [address] Care Team Providers Care Web Services Architect Name Role Phone ESTEFANY EVANS Primary Care Physician Unavaila Estefany Bergman Attending Clinician Unavailable KAYLA LUTZ Attending Clinician UnavailLACEY Guzman Attending Clinician Unava ilBREE Pelaez Attending Clinician Unavailable Doctor Unassigned, Tab Attending Clinician U michaela Espinoza RN, Veronika Serra Attending Clinician Unavail able ANNAMARIA BARKER Attending Clinician Unavailable Yony GOMEZ, Marylou Sanabria Attending Clinician [phone] Annamaria Barker DO Attending Clinician [phone] Billy WOODSON, Bree Attending Clinician [phone] Kayla Lutz MD Attending Clinician [phone] Bernice Amaya Attending Clinician [phone] PEDRO LUIS RUSHING Attending Clinician Unavailable PEDRO LUIS RUSHING Attending Clinician Unavailable Pob, [facility] Main Attending Clinician UnavailBERNICE Conrad Attending Clinician Unavailable Chelo Cornejo RN Attending Clinician Unavailab carmelo Clemons MD, Brodie Evangelista Attending Clinician [phone] FILIPE WIGGINS Attending Clinician Unavailable HEMA CLAYTONALMA PALM Attending Clinician Unavail able Bharath Padgett CRNA Attending Clinician [phone] Oliver Hunt MD Attending Clinician [phone] Only, Adc Test Attending Clinician Unavailable RENÉE AGUILERA Attending Clinician Unavail able RENÉE AGUILERA Attending Clinician Unavail able ANDREW RESENDIZ Attending Clinician Unavail able Nurse, Adc Pob Immunization Attending Clinician Unavailable Andrew Resendiz DO Attending Clinician Jonas Barker MD Attending Clinician Calin Lazar DO Attending Clinician [phone] KAYLA LUTZ Admitting Clinician UnavailANNAMARIA Amado Admitting Clinician Unavailable Annamaria Barker DO Admitting Clinician [phone] Kayla Lutz MD Admitting Clinician [phone] BERNICE COLUNGA Admitting Clinician Unavailable Payers Payer Name Policy Type Policy Number Effective Date Expirati on Date Source [facility] [place] [employer] [id number] 2021 00:00:00 [facility] [id number] 2015 00:00:00 [facility] [id number] 2020 00:00:00 [facility] DUAL COMP CHOICE PPO DSNP [id number] 2023 00:00:00 Ambetter from [facility] [id number] [facility] HIM AMBETTER FROM [facility] [id number] 2019 00:00:00 [facility]etter from [facility] [id number] [facility] Ambetter from [facility] [id number] [facility]etter from [facility] [id number] [facility] Problems Condition Name Condition Details Condition Category Status Onset Date Resolution Date Last Treatment Date Treating Clinician Comments Source Abnormal nuclear cardiac imaging test Abnormal nuclear cardiac imaging test Disease Active 08-30 00:00: 00 [facility] Chest pain, unspecifie d type Chest pain, unspecifie d type Disease Active 08-29 00:00: 00 [facility] Right lower quadrant abdominal pain Right lower quadrant abdominal pain Disease Active 2021-08 00:00: 00 [facility] Morbid obesity with body mass index of 40.0-49.9 Morbid obesity with body mass index of 40.0-49.9 Disease Active 01-15 00:00: 00 [facility] Arthritis of left hip Arthritis of left hip Disease Active 01-04 00:00: 00 Overview: Formattin g of this note might be different from the original. 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 (nsaid) 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 (nsaid) Disease Active 03-31 00:00: 00 [facility] Other iron deficiency anemia Other iron deficiency anemia Disease Active 03-31 00:00: 00 [facility] Subcutaneo us nodules Subcutaneo us nodules Disease Active 03-31 00:00: 00 [facility] Bilateral knee pain Bilateral knee pain Disease Active 10-10 00:00: 00 [facility] Bilateral knee pain Bilateral knee pain Disease Active 10-10 00:00: 00 [facility] [id number] Pain, joint, hand, left Problem Active [facility] [id number] Primary osteoarthr itis of left hip Problem Active [facility] [id number] Trigger finger, right ring finger Problem Active [facility] [id number] Pain, joint, hand, right Problem Active [facility] [id number] Pain, joint, hip, right Problem [facility] [id number] Arthritis of right hip Problem [facility] [id number] Primary osteoarthr itis of right hip Problem [facility] [id number] Trochanter ic bursitis of left hip Problem [facility] [id number] Status post total replacemen t of left hip Problem [facility] Allergies, Adverse Reactions, Alerts Allergy Name Allergy Type Status Severity Reaction(s) Onset Date Inactive Date Treating Clinician Comments Source Codeine Propensi ty to adverse reaction s Active Nausea And Vomiting 09-07 00:00: 00 [facility] CODEINE DRUG INGREDI Active N/V 09-07 00:00: 00 [facility] codeine codeine Active Unknown [facility] Social History Social Habit Start Date Stop Date Quantity Comments Source History of Tobacco Use [facility] Sex Assigned At [facility] History SDOH Alcohol Std Drinks [place] [facility] History SDOH Alcohol Binge [facility] Gender identity [facility] Sexual orientation [facility] Exposure to SARS-CoV-2 (event) 2022-12-17 00:00:00 2022-12-27 08:47:00 Not sure [facility] History of Social function 2022-09-23 00:00:00 2022-09-23 00:00:00 [facility] History SDOH Food Worry 2022-06-13 00:00:00 2022-06-13 00:00:00 1 [facility] History SDOH Food Scarcity 2022-06-13 00:00:00 2022-06-13 00:00:00 1 [facility] History SDOH Transport Med 2022-06-13 00:00:00 2022-06-13 00:00:00 2 [facility] History SDOH Transport Non-Med 2022-06-13 00:00:00 2022-06-13 00:00:00 2 [facility] Tobacco use and exposure 2022-06-11 00:00:00 2022-06-11 00:00:00 Smokeless tobacco non-user [facility] Education - What is the highest level of school you have completed or the highest degree you have received? 2022-06-10 00:00:00 2022-06-10 00:00:00 Some college, no degree [facility] Alcohol intake 2020-12-18 00:00:00 2020-12-18 00:00:00 Lifetime non-drinker (finding) [facility] History SDOH Alcohol Frequency 2020-12-18 00:00:00 2020-12-18 00:00:00 1 [facility] Smoking Status Start Date Stop Date Source Never smoked tobacco [facility] Medications Ordered Medication Name Filled Medication Name Start Date Stop Date Current Medication? Ordering Clinician Indication Dosage Frequency Signature (SIG) Comments Components Source amitriptyli ne (ELAVIL) tablet 150 mg 08-30 15:00: 00 Yes 150mg 150 mg, Oral, DAILY, First dose on 08/30/23 at 0900, Until Discontinu ed, Routine [facility] enoxaparin (LOVENOX) injection 40 mg 08-30 15:00: 00 Yes 40mg 40 mg, Subcutaneo us, DAILY, First dose on 08/30/23 at 0900, Until Discontinu ed, Routine [facility] amitriptyli ne 150 mg tablet 08-30 14:20: 33 Yes amitriptyl ine 150 mg tablet Take 1 tablet every day by oral route for 30 days. [facility] semaglutide (OZEMPIC) 1 mg/dose (4 mg/3 mL) PnIj 08-30 14:20: 33 Yes 1.25mg inject 1.25 mg under the skin weekly. [facility] Sliding Scale Insulin - Lispro (HumaLOG) 08-30 03:00: 00 Yes Subcutaneo us, TID MEALS+HS, First dose on Fri08/29/23 at 2100, Until Discontinu ed, Routine [facility] pantoprazol e (PROTONIX) injection 40 mg 08-30 02:00: 00 Yes 40mg 40 mg, Slow IV Push, Q24H, First dose on Fri08/29/23 at 2000, Until Discontinu ed [facility] NaCl 0.9% (NS) IV infusion 1,000 mL 08-30 01:15: 00 Yes 1000mL at 75 mL/hr, IV Infusion, CONTINUOUS , Starting on Fri08/29/23 at 1915, Until Discontinu ed, Routine [facility] iopamidol (ISOVUE 370-500 mL) injection 75 mL 08-30 00:15: 00 08-30 00:15 :00 No [id number] 75mL 75 mL, Intravenou s, ONCE, 1 dose, On Fri08/29/23 at 1815, Routine [facility] proMETHazin e (PHENERGAN) 12.5 mg in NS 50 mL IV piggyback (CNR) 08-30 00:01: 07 Yes 12.5mg 12.5 mg, IV Piggyback, at 200 mL/hr Administer over 15 Minutes, Q4HPRN, Starting on Fri08/29/23 at 1801, Until Discontinu ed, Routine, N/V unresponsi ve to Ondansetro n [facility] ondansetron (ZOFRAN (PF)) injection 4 mg 08-30 00:00: 10 Yes 4mg 4 mg, Slow IV Push, Q6HPRN, Starting on Fri08/29/23 at 1800, Until Discontinu ed, Routine, Nausea and Vomiting (N/V) [facility] glucagon (GLUCAGEN DIAGNOSTIC KIT) injection 1 mg 08-29 23:59: 42 Yes 1mg 1 mg, Intramuscu lar, PRN, Starting on Fri08/29/23 at 1759, Until Discontinu ed, KUNAL, Blood Glucose < or = 70 mg/dL and patient is NPO, unable to swallow or has mental changes. [facility] dextrose 50 % in water (D50W) injection 25 mL 08-29 23:59: 42 Yes 25mL 25 mL, Slow IV Push, PRN, Starting on Fri08/29/23 at 1759, Until Discontinu ed, KUNAL, Blood Glucose < or = 70 mg/dL and patient is NPO, unable to swallow or has mental status changes. [facility] FENTanyl PF (SUBLIMAZE (PF)) injection 25 mcg 08-29 23:59: 16 08-30 23:58 :16 No 25ug 25 mcg, Slow IV Push, Q3HPRN, Starting on Fri08/29/23 at 1759, Until 08/30/23 at 1758, Routine, Pain (scale 7-10) [facility] acetaminoph en (TYLENOL) tablet 650 mg 08-29 23:59: 10 Yes 650mg 650 mg, Oral, Q6HPRN, Starting on Fri08/29/23 at 1759, Until Discontinu ed, Routine, Pain (scale 1-3) [facility] haloperidol lactate (HALDOL) injection 2.5 mg 08-29 22:30: 00 08-30 00:08 :00 No 2.5mg 2.5 mg, Intravenou s, ONCE, 1 dose, On Fri08/29/23 at 1630, STAT [facility] morpHINE (4 mg/mL) injection 4 mg 08-29 21:00: 00 08-29 20:55 :00 No 4mg 4 mg, Slow IV Push, ONCE, 1 dose, On Fri08/29/23 at 1500, STAT [facility] Fesoterodin e (TOVIAZ) 4 mg tablet 08-29 20:23: 58 08-29 00:00 :00 No Toviaz 4 mg tablet,ext ended release [facility] DULoxetine 60 mg capsule 08-29 20:23: 58 08-29 00:00 :00 No 60mg Take 1 capsule by mouth in the morning. [facility] proMETHazin e (PHENERGAN) 12.5 mg in NS 50 mL IV piggyback (CNR) 08-29 20:00: 00 08-29 20:48 :00 No 12.5mg 12.5 mg, IV Piggyback, at 200 mL/hr Administer over 15 Minutes, ONCE, 1 dose, On Fri08/29/23 at 1400, KUNAL [facility] iopamidol (ISOVUE 370-500 mL) injection 100 mL 08-29 20:00: 00 08-29 20:00 :00 No [id number] 100mL 100 mL, Intravenou s, ONCE, 1 dose, On Fri08/29/23 at 1400, Routine [facility] morpHINE (4 mg/mL) injection 4 mg 08-29 18:30: 00 08-29 18:45 :00 No 4mg 4 mg, Slow IV Push, ONCE, 1 dose, On Fri08/29/23 at 1230, STAT [facility] ketorolac (TORADOL) injection 30 mg 08-29 17:45: 00 08-29 16:48 :00 No 30mg 30 mg, Slow IV Push, ONCE, 1 dose, On Fri08/29/23 at 1145, Routine [facility] NaCl 0.9% (NS) bolus infusion 1,000 mL 08-29 17:30: 00 08-29 17:42 :00 No 1000mL at 999 mL/hr, 1,000 mL, IV Infusion, ONCE, 1 dose, On Fri08/29/23 at 1130, KUNAL [facility] famotidine (PEPCID (PF)) injection 20 mg 08-29 16:45: 00 08-29 16:45 :00 No 20mg 20 mg, Slow IV Push, ONCE, 1 dose, On Fri08/29/23 at 1045, [facility] ondansetron (ZOFRAN (PF)) injection 4 mg 08-29 16:45: 00 08-29 16:44 :00 No 4mg 4 mg, Slow IV Push, ONCE, 1 dose, On Fri08/29/23 at 1045, [facility] Xarelto 10 MG Xarelto 10 MG 05 00:00: 00 No 1{table t} QD Xarelto 10 MG Lidocaine Lidocaine 01-13 00:00: 00 No 5mL [facility] Kenalog (Triamcinol one) Kenalog (Triamcinol one) 01-13 00:00: 00 No 2mL [facility] atorvastati n 10 mg tablet 12-27 09:06: 57 12-27 00:00 :00 No 10mg Take 1 tablet by mouth in the morning. [facility] amitriptyli ne 150 mg tablet 12-27 08:56: 31 Yes amitriptyl ine 150 mg tablet Take 1 tablet every day by oral route for 30 days. [facility] Fesoterodin e (TOVIAZ) 4 mg tablet 12-27 08:56: 31 Yes Toviaz 4 mg tablet,ext ended release [facility] DULoxetine 60 mg capsule 12-27 08:56: 31 Yes 60mg Take 1 capsule by mouth in the morning. [facility] semaglutide (OZEMPIC) 1 mg/dose (4 mg/3 mL) PnIj 12-27 08:56: 31 Yes 1.25mg inject 1.25 mg under the skin weekly. [facility] traMADoL 50 mg tablet 12-21 00:00: 00 08-29 00:00 :00 No TAKE 1 TABLET BY MOUTH EVERY 8 HOURS NEEDED FOR 10 DAYS [facility] FENTanyl PF (SUBLIMAZE (PF)) injection 25 mcg 09-23 14:14: 37 Yes 25ug 25 mcg, Slow IV Push, Q5MIN PRN, 4 doses, Starting on Fri09/23/22 at 0814, Until Discontinu ed, Routine, Pain (scale 4-6), PACU [facility] ondansetron (ZOFRAN (PF)) injection 4 mg 09-23 14:14: 37 09-23 14:16 :00 No 4mg 4 mg, Slow IV Push, PRN, 1 dose, Starting on Fri09/23/22 at 0814, Until Fri09/23/22 at 0816, Routine, Nausea and Vomiting (N/V), PACU [facility] triamcinolo ne acetonide (KENALOG) injection 09-23 13:55: 00 09-23 17:13 :49 No PRN, Starting on Fri09/23/22 at 0755, Until Fri09/23/22 at 1113, Routine, Intra-op [facility] bupivacaine (preserv free) 0.5% (SENSORCAIN E MPF) 0.5 % (5 mg/mL) injection 09-23 13:55: 00 09-23 17:13 :49 No PRN, Starting on Fri09/23/22 at 0755, Until Fri09/23/22 at 1113, Routine, Intra-op [facility] triamcinolo ne acetonide (KENALOG) injection 09-23 13:53: 00 09-23 17:13 :49 No PRN, Starting on Fri09/23/22 at 0753, Until Fri09/23/22 at 1113, Routine, Intra-op [facility] bupivacaine (preserv free) 0.5% (SENSORCAIN E MPF) 0.5 % (5 mg/mL) injection 09-23 13:53: 00 09-23 17:13 :49 No PRN, Starting on Fri09/23/22 at 0753, Until Fri09/23/22 at 1113, Routine, Intra-op [facility] lactated ringers IV infusion 1,000 mL 09-23 12:45: 00 09-23 13:02 :00 No 1000mL at 42 mL/hr, 1,000 mL, IV Infusion, ONCE, 1 dose, On 09/23/22 at 0645, Routine, DSU Pre-op [facility] amitriptyli ne 150 mg tablet 09-23 09:08: 45 Yes amitriptyl ine 150 mg tablet Take 1 tablet every day by oral route for 30 days. [facility] Fesoterodin e (TOVIAZ) 4 mg tablet 09-23 09:08: 45 Yes Toviaz 4 mg tablet,ext ended release [facility] DULoxetine 60 mg capsule 09-23 09:08: 45 Yes 60mg Take 60 mg by mouth daily. [facility] atorvastati n 10 mg tablet 09-23 09:08: 45 Yes 10mg Take 10 mg by mouth in the morning. [facility] semaglutide (OZEMPIC) 1 mg/dose (4 mg/3 mL) PnIj 09-23 09:08: 45 Yes 1.25mg inject 1.25 mg under the skin weekly. [facility] aspirin 325 mg tablet 09-23 00:00: 00 10-22 04:59 :00 No [id number] 325mg Take 1 tablet by mouth in the morning and 1 tablet in the evening. Take with meals. Do all this for 28 days. [facility] semaglutide (OZEMPIC) 1 mg/dose (4 mg/3 mL) PnIj 09-17 13:39: 54 Yes 1.25mg inject 1.25 mg under the skin weekly. [facility] atorvastati n 10 mg tablet 09-17 13:19: 59 Yes 10mg Take 10 mg by mouth in the morning. [facility] amitriptyli ne 150 mg tablet 09-17 13:09: 47 Yes amitriptyl ine 150 mg tablet Take 1 tablet every day by oral route for 30 days. [facility] Fesoterodin e (TOVIAZ) 4 mg tablet 09-17 13:09: 47 Yes Toviaz 4 mg tablet,ext ended release [facility] DULoxetine 60 mg capsule 09-17 13:09: 47 Yes 60mg Take 60 mg by mouth daily. [facility] cefTRIAXone (ROCEPHIN) 1,000 mg in NaCl [...] Urine
D uration of Therapy: 7 days [facility] lactobacill us acidophilus 2021-08 00:00: 00 07-14 05:59 :00 No [id number] .5mg Take 1 tablet by mouth in the morning for 30 days. [facility] polyethylen e glycol 3350 17 gram powder 2021-08 00:00: 00 07-14 05:59 :00 No [id number] 17g Take 1 Packet by mouth in the morning for 30 days. [facility] sennosides- docusate sodium (SENOKOT-S) 8.6-50 mg per tablet 1 tablet 2021-08 16:15: 00 Yes 1{tbl} 1 tablet, Oral, DAILY, First dose on Fri06/12/22 at 1015, Until Discontinu ed, Routine [facility] polyethylen e glycol 3350 powder 17 g 2021-08 16:15: 00 Yes 17g 17 g, Oral, DAILY, First dose on Fri06/12/22 at 1015, Until Discontinu ed, Routine [facility] amitriptyli ne 150 mg tablet 2021-08 16:08: 30 Yes amitriptyl ine 150 mg tablet Take 1 tablet every day by oral route for 30 days. [facility] Fesoterodin e (TOVIAZ) 4 mg tablet 2021-08 16:08: 30 Yes Toviaz 4 mg tablet,ext ended release [facility] DULoxetine 60 mg capsule 2021-08 16:08: 30 Yes 60mg Take 60 mg by mouth daily. [facility] proMETHazin e 25 mg tablet 2021-08 00:00: 00 09-17 00:00 :00 No [id number] 25mg Take 1 tablet by mouth every 4 (four) hours as needed for N/V unresponsi ve to Ondansetro n. [facility] docusate 100 mg capsule 2021-08 00:00: 00 07-13 05:59 :00 No [id number] 100mg Take 1 capsule by mouth in the morning and 1 capsule in the evening. Do all this for 30 days. [facility] HYDROcodone -acetaminop hen 5-325 mg tablet 2021-08 00:00: 00 06-20 05:59 :00 No [id number] 1{tbl} Take 1 tablet by mouth every 6 (six) hours as needed for Pain (scale 7-10) for up to 7 days. Indication s: acute pain [facility] ciprofloxac in HCl 500 mg tablet 2021-08 00:00: 00 06-20 05:59 :00 No [id number] 500mg Take 1 tablet by mouth every 12 (twelve) hours for 7 days. [facility] metroNIDAZO LE 250 mg tablet 2021-08 00:00: 00 06-20 05:59 :00 No [id number] 500mg Take 2 tablets by mouth every 12 (twelve) hours for 7 days. [facility] proMETHazin e (PHENERGAN) 25 mg in NaCl 0.9% (NS) 50 mL IV piggyback 2021-08 21:26: 59 Yes 25mg 25 mg, IV Piggyback, Q4HPRN, Starting on Fri06/11/22 at 1526, Until Discontinu ed, Routine, Nausea and Vomiting (N/V), N/V unresponsi ve to Ondansetro n [facility] acetaminoph en (TYLENOL) tablet 650 mg 2021-08 15:55: 26 Yes 650mg 650 mg, Oral, Q6HPRN, Starting on Fri06/11/22 at 0955, Until Discontinu ed, Routine, Pain (scale 1-3) [facility] enoxaparin (LOVENOX) injection 40 mg 2021-08 15:00: 00 Yes 40mg 40 mg, Subcutaneo us, DAILY, First dose on Fri06/11/22 at 0900, Until Discontinu ed, Routine [facility] DULoxetine (CYMBALTA) capsule 60 mg 2021-08 15:00: 00 Yes 60mg 60 mg, Oral, DAILY, First dose on Fri06/11/22 at 0900, Until Discontinu ed, Routine [facility] lactobacill us acidophilus tablet 0.5 mg 2021-08 15:00: 00 Yes .5mg 0.5 mg, Oral, DAILY, First dose on Fri06/11/22 at 0900, Until Discontinu ed, Routine [facility] Sliding Scale Insulin - Lispro (HumaLOG) + Fsbg Testing 2021-08 14:00: 00 Yes Subcutaneo us, TID MEALS, First dose on Fri06/11/22 at 0800, Until Discontinu ed, Routine [facility] morpHINE (4 mg/mL) injection 4 mg 2021-08 12:52: 08 Yes 4mg 4 mg, Slow IV Push, Q4HPRN, Starting on Fri06/11/22 at 0652, Until Discontinu ed, Routine, Pain (scale 7-10) [facility] cefTRIAXone (ROCEPHIN) 1,000 mg in NaCl [...] Urine
D uration of Therapy: 7 days [facility] docusate (COLACE) capsule 100 mg 2021-08 06:15: 00 Yes 100mg 100 mg, Oral, BID, First dose on Fri06/11/22 at 0015, Until Discontinu ed, Routine [facility] gabapentin (NEURONTIN) capsule 200 mg 2021-08 06:15: 00 Yes 200mg 200 mg, Oral, BID, First dose on Fri06/11/22 at 0015, Until Discontinu ed, Routine [facility] ondansetron (ZOFRAN (PF)) injection 4 mg 2021-08 06:06: 47 Yes 4mg 4 mg, Slow IV Push, Q6HPRN, Starting on Fri06/11/22 at 0006, Until Discontinu ed, Routine, Nausea and Vomiting (N/V) [facility] traMADoL (ULTRAM) tablet 50 mg 2021-08 06:06: 37 06-13 06:05 :37 No 50mg 50 mg, Oral, Q8HPRN, Starting on Fri06/11/22 at 0006, Until Sneha 06/13/22 at 0005, Routine, Pain (scale 4-6) [facility] FENTanyl PF (SUBLIMAZE (PF)) injection 50 mcg 2021-08 05:58: 16 06-11 12:52 :20 No 50ug 50 mcg, Slow IV Push, Q4HPRN, Starting on Fri06/10/22 at 2358, Until Fri06/11/22 at 0652, Routine, Pain (scale 7-10) [facility] NaCl 0.9% (NS) IV infusion 1,000 mL 2021-08 04:30: 00 Yes 1000mL at 100 mL/hr, IV Infusion, CONTINUOUS , Starting on Fri06/10/22 at 2230, Until Discontinu ed, Routine [facility] NaCl 0.9% (NS) bolus infusion 1,500 mL 2021-08 03:45: 00 06-11 03:33 :01 No 1500mL at 999 mL/hr, 1,500 mL, IV Infusion, ONCE, 1 dose, On Fri06/10/22 at 2145, KUNAL [facility] ondansetron (ZOFRAN (PF)) injection 4 mg 2021-08 03:17: 24 06-11 06:07 :04 No 4mg 4 mg, Slow IV Push, Q6HPRN, Starting on Fri06/10/22 at 2117, Until Fri06/11/22 at 0007, KUNAL, Nausea and Vomiting (N/V) [facility] metoclopram raven HCl (REGLAN) injection 10 mg 2021-08 03:17: 15 06-11 21:27 :54 No 10mg 10 mg, Slow IV Push, TIDPRN, Starting on Fri06/10/22 at 2117, Until Fri06/11/22 at 1527, Routine, Nausea and Vomiting (N/V) [facility] morpHINE (4 mg/mL) injection 4 mg 2021-08 03:16: 49 06-11 05:58 :48 No 4mg 4 mg, Slow IV Push, Q4HPRN, Starting on Fri06/10/22 at 2116, Until Fri06/10/22 at 2358, Routine, Pain (scale 7-10) [facility] oxybutynin 10 mg 24 hr tablet 2021-08 00:05: 07 06-11 00:00 :00 No oxybutynin chloride ER 10 mg tablet,ext ended release 24 hr [facility] semaglutide (OZEMPIC) 0.25 mg or 0.5 mg(2 mg/1.5 mL) PnIj 2021-08 00:05: 06-11 00:00 :00 No .25mg 0.25 mg. [facility] semaglutide , weight loss, (WEGOVY) 0.25 mg/0.5 mL PnIj SC injection 2021-08 00:05: 07 06-11 00:00 :00 No Wegovy 0.25 mg/0.5 mL subcutaneo us pen injector 0.25 mg SC qwk x4wk, then 0.5 mg SC qwk x4wk, then 1 mg SC qwk x4wk, then 1.7 mg SC qwk x4wk, then 2.4 mg SC qwk [facility] clindamycin 300 mg capsule 2021-08 00:05: 06-11 00:00 :00 No clindamyci n HCl 300 mg capsule Take 1 capsule 3 times a day by oral route for 10 days. [facility] NaCl 0.9% (NS) bolus infusion 500 mL 2021-08 00:00: 00 06-11 00:17 :00 No 500mL at 999 mL/hr, 500 mL, IV Infusion, ONCE, 1 dose, On Fri06/10/22 at 1800, STAT [facility] proMETHazin e (PHENERGAN) 25 mg in NaCl 0.9% (NS) 50 mL IV piggyback 2021-08 00:00: 00 06-11 00:06 :00 No 25mg 25 mg, IV Piggyback, ONCE, 1 dose, On Fri06/10/22 at 1800[facility]PF[facility] 4 mg 2021-08 23:15: 00 06-10 22:25 :00 No 4mg 4 mg, Slow IV Push, ONCE, 1 dose, On Fri06/10/22 at 1715, [facility] morpHINE (4 mg/mL) injection 4 mg 2021-08 22:15: 00 06-10 21:21 :00 No 4mg 4 mg, Slow IV Push, ONCE, 1 dose, On Fri06/10/22 at 1615, STAT [facility] cefTRIAXone (ROCEPHIN) 1,000 mg in NaCl 0.9% (NS) 50 mL MINI-BAG 2021-08 20:15: 00 06-10 20:51 :00 No 1000mg 1,000 mg, IV Piggyback, ONCE, 1 dose, On Fri06/10/22 at 1415, Administer over 30 Minutes, 50 mL
Reas on for Anti-Infec tive: Documented Infection< br>Documen iblly Infection Site: Urine
D uration of Therapy: 7 days [facility] ketorolac (TORADOL) injection 30 mg 2021-08 20:00: 00 06-10 19:01 :00 No 30mg 30 mg, Slow IV Push, ONCE, 1 dose, On Fri06/10/22 at 1400, Routine [facility] morpHINE (4 mg/mL) injection 4 mg 2021-08 19:30: 00 06-10 19:29 :00 No 4mg 4 mg, Slow IV Push, ONCE, 1 dose, On Fri06/10/22 at 1330, STAT [facility] ondansetron (ZOFRAN (PF)) injection 4 mg 2021-08 19:30: 00 06-10 19:29 :00 No 4mg 4 mg, Slow IV Push, ONCE, 1 dose, On Fri06/10/22 at 1330, KUNAL [facility] FENTanyl PF (SUBLIMAZE (PF)) injection 50 mcg 2021-08 18:01: 00 06-10 18:02 :00 No 50ug 50 mcg, Slow IV Push, ONCE, 1 dose, On Fri06/10/22 at 1215, Routine [facility] cefpodoxime 100 mg tablet 2021-08 00:00: 00 06-12 00:00 :00 No [id number] 100mg Take 1 tablet by mouth in the morning and 1 tablet in the evening. Do all this for 7 days. [facility] amitriptyli ne 150 mg tablet 01-14 09:33: 45 Yes amitriptyl ine 150 mg tablet Take 1 tablet every day by oral route for 30 days. [facility] Fesoterodin e (TOVIAZ) 4 mg tablet 01-14 09:33: 45 Yes Toviaz 4 mg tablet,ext ended release [facility] oxybutynin 10 mg 24 hr tablet 01-14 09:33: 45 Yes oxybutynin chloride ER 10 mg tablet,ext ended release 24 hr [facility] semaglutide (OZEMPIC) 0.25 mg or 0.5 mg(2 mg/1.5 mL) PnIj 01-14 09:33: 45 Yes .25mg 0.25 mg. [facility] semaglutide , weight loss, (WEGOVY) 0.25 mg/0.5 mL PnIj SC injection 01-14 09:33: 45 Yes Wegovy 0.25 mg/0.5 mL subcutaneo us pen injector 0.25 mg SC qwk x4wk, then 0.5 mg SC qwk x4wk, then 1 mg SC qwk x4wk, then 1.7 mg SC qwk x4wk, then 2.4 mg SC qwk [facility] clindamycin 300 mg capsule 01-14 09:33: 45 Yes clindamyci n HCl 300 mg capsule Take 1 capsule 3 times a day by oral route for 10 days. [facility] DULoxetine 60 mg capsule 01-14 09:33: 45 Yes 60mg Take 60 mg by mouth daily. [facility] gabapentin 100 mg capsule 11-29 00:00: 00 Yes 100mg Take 1 capsule by mouth in the morning and 1 capsule in the evening. [facility] gabapentin 100 mg capsule 11-29 00:00: 00 Yes 800mg Take 8 capsules by mouth in the morning and 8 capsules at noon and 8 capsules in the evening. [facility] lidocaine-p rilocaine 2.5-2.5 % cream 10-01 00:00: 00 Yes APPLY TO AFFECTED AREA EVERY DAY NEEDED [facility] eszopiclone 1 mg tablet 10-01 00:00: 00 09-17 00:00 :00 No 1mg Take 1 mg by mouth daily. [facility] methylPREDN ISolone (MEDROL, LUNA,) 4 mg tablets 09-24 00:00: 00 Yes [id number] 84mg Take 21 tablets by mouth SEE-INSTRU CTIONS. follow package directions [facility] methylPREDN ISolone (MEDROL, LUNA,) 4 mg tablets 2020-08 0 00:00: 00 Yes [id number] 84mg Take 21 tablets by mouth SEE-INSTRU CTIONS. follow package directions [facility] methocarbam ol (Robaxin) 750 MG tablet 12-18 00:00: 00 12-29 04:59 :00 No [id number] 750mg [id number] 3D Take 1 tablet (750 mg total) by mouth 3 (three) times a day if needed for muscle spasms for up to 10 days. [facility] metFORMIN (Glucophage ) 1000 MG tablet 12-14 00:00: 00 Yes [facility] benzonatate 100 mg capsule 01-25 00:00: 00 Yes [id number] 100mg Take 1 capsule by mouth 3 (three) times daily as needed for Cough. [facility] chlorphenir amine 4 mg tablet 01-25 00:00: 00 Yes [id number] 4mg Take 1 tablet by mouth every 6 (six) hours as needed for Allergies or Runny nose. [facility] LIDOCAINE HCL 10MG/ML LIDOCAINE HCL 10MG/ML 01-19 00:00: 00 No .5mL [facility] Depo-Medrol (Methylpred nisolone) 40mg Depo-Medrol (Methylpred nisolone) 40mg 01-19 00:00: 00 No .5mL [facility] loratadine 10 mg tablet 03-03 00:00: 00 Yes 10mg Take 1 tablet by mouth in the morning. [facility] metFORMIN 1,000 mg tablet 7-07 00:00: 00 09-17 00:00 :00 No TAKE 1 TABLET BY MOUTH TWICE A DAY NEEDED WITH MORNING AND EVENING MEAL [facility] famotidine 40 mg tablet 2-20 00:00: 00 09-17 00:00 :00 No 40mg Take 1 tablet by mouth daily. [facility] Xigduo XR 10-500 MG Xigduo XR 10-500 MG No 1{table t} QD Xigduo XR 10-500 MG DULoxetine HCl 30 MG DULoxetine HCl 30 MG No 1{capsu le} QD DULoxetine HCl 30 MG clonazePAM 0.5 MG clonazePAM 0.5 MG No 1{table t} QD clonazePAM 0.5 MG Gabapentin 800 MG Gabapentin 800 MG No 1{table t} QD Gabapentin 800 MG Fesoterodin e Fumarate ER 8 MG Fesoterodin e Fumarate ER 8 MG No Fesoterodi ne Fumarate ER 8 MG Mounjaro 2.5 MG/0.5ML Mounjaro 2.5 MG/0.5ML No Mounjaro 2.5 MG/0.5ML Cetirizine HCl 10 MG Cetirizine HCl 10 MG No Cetirizine HCl 10 MG Cyclobenzap rine HCl 10 MG Cyclobenzap rine HCl 10 MG No Cyclobenza thania HCl 10 MG Ondansetron 4 MG Ondansetron 4 MG No Ondansetro n 4 MG Diclofenac Sodium ER 100 MG Diclofenac Sodium ER 100 MG No Diclofenac Sodium ER 100 MG Celecoxib 200 MG Celecoxib 200 MG No Celecoxib 200 MG Immunizations Ordered Immunization Name Filled Immunization Name Date Status Comments Source Influenza Virus Vaccine Quad IM 3+ YRS 2021-06-24 00:00:00 Completed [facility] Influenza Virus Vaccine Quad IM 3+ YRS 2021-06-24 00:00:00 Completed [facility] Influenza Virus Vaccine Quad IM 3+ YRS 2021-06-24 00:00:00 Completed [facility] Influenza Virus Vaccine Quad IM 3+ YRS 2021-06-24 00:00:00 Completed [facility] Influenza Virus Vaccine Quad IM 3+ YRS 2021-06-24 00:00:00 Completed [facility] Influenza Virus Vaccine Quad IM 3+ YRS 2021-06-24 00:00:00 Completed [facility] Influenza Virus Vaccine Quad IM 3+ YRS 2021-06-24 00:00:00 Completed [facility] Influenza Virus Vaccine Quad IM 3+ YRS 2021-06-24 00:00:00 Completed [facility] Influenza Virus Vaccine Quad IM 3+ YRS 2021-06-24 00:00:00 Completed [facility] Influenza Virus Vaccine Quad IM 3+ YRS 2021-06-24 00:00:00 Completed [facility] Influenza Virus Vaccine Quad IM 3+ YRS 2021-06-24 00:00:00 Completed [facility] Influenza Virus Vaccine Quad IM 3+ YRS 2021-06-24 00:00:00 Completed [facility] Influenza Virus Vaccine Quad IM 3+ YRS 2021-06-24 00:00:00 Completed [facility] Influenza Virus Vaccine Quad IM 3+ YRS 2021-06-24 00:00:00 Completed [facility] Influenza Virus Vaccine Quad IM 3+ YRS 2021-06-24 00:00:00 Completed [facility] Influenza Virus Vaccine Quad IM 3+ YRS 2021-06-24 00:00:00 Completed [facility] Influenza Virus Vaccine Quad IM 3+ YRS 2021-06-24 00:00:00 Completed [facility] Influenza Virus Vaccine Quad IM 3+ YRS 2021-06-24 00:00:00 Completed [facility] Influenza Virus Vaccine Quad IM 3+ YRS 2021-06-24 00:00:00 Completed [facility] Influenza Virus Vaccine Quad IM 3+ YRS 2021-06-24 00:00:00 Completed [facility] Influenza Virus Vaccine Quad IM 3+ YRS 2021-06-24 00:00:00 Completed [facility] Influenza Virus Vaccine Quad IM 3+ YRS 2021-06-24 00:00:00 Completed [facility] Influenza Virus Vaccine Quad IM 3+ YRS 2021-06-24 00:00:00 Completed [facility] SARS-COV-2 COVID-19 PFIZER VACCINE 2021-04-23 00:00:00 Completed [facility] SARS-COV-2 COVID-19 ALY/J&J VACCINE 2021-04-23 00:00:00 Completed [facility] SARS-COV-2 COVID-19 PFIZER VACCINE 2021-04-23 00:00:00 Completed [facility] SARS-COV-2 COVID-19 ALY/J&J VACCINE 2021-04-23 00:00:00 Completed [facility] SARS-COV-2 COVID-19 PFIZER VACCINE 2021-04-23 00:00:00 Completed [facility] SARS-COV-2 COVID-19 ALY/J&J VACCINE 2021-04-23 00:00:00 Completed [facility] SARS-COV-2 COVID-19 PFIZER VACCINE 2021-04-23 00:00:00 Completed [facility] SARS-COV-2 COVID-19 ALY/J&J VACCINE 2021-04-23 00:00:00 Completed [facility] SARS-COV-2 COVID-19 PFIZER VACCINE 2021-04-23 00:00:00 Completed [facility] SARS-COV-2 COVID-19 ALY/J&J VACCINE 2021-04-23 00:00:00 Completed [facility] SARS-COV-2 COVID-19 PFIZER VACCINE 2021-04-23 00:00:00 Completed [facility] SARS-COV-2 COVID-19 ALY/J&J VACCINE 2021-04-23 00:00:00 Completed [facility] SARS-COV-2 COVID-19 PFIZER VACCINE 2021-04-23 00:00:00 Completed [facility] SARS-COV-2 COVID-19 ALY/J&J VACCINE 2021-04-23 00:00:00 Completed [facility] SARS-COV-2 COVID-19 PFIZER VACCINE 2021-04-23 00:00:00 Completed [facility] SARS-COV-2 COVID-19 ALY/J&J VACCINE 2021-04-23 00:00:00 Completed [facility] SARS-COV-2 COVID-19 PFIZER VACCINE 2021-04-23 00:00:00 Completed [facility] SARS-COV-2 COVID-19 ALY/J&J VACCINE 2021-04-23 00:00:00 Completed [facility] SARS-COV-2 COVID-19 PFIZER VACCINE 2021-04-23 00:00:00 Completed [facility] SARS-COV-2 COVID-19 ALY/J&J VACCINE 2021-04-23 00:00:00 Completed [facility] SARS-COV-2 COVID-19 PFIZER VACCINE 2021-04-23 00:00:00 Completed [facility] SARS-COV-2 COVID-19 ALY/J&J VACCINE 2021-04-23 00:00:00 Completed [facility] SARS-COV-2 COVID-19 PFIZER VACCINE 2021-04-23 00:00:00 Completed [facility] SARS-COV-2 COVID-19 ALY/J&J VACCINE 2021-04-23 00:00:00 Completed [facility] SARS-COV-2 COVID-19 PFIZER VACCINE 2021-04-23 00:00:00 Completed [facility] SARS-COV-2 COVID-19 ALY/J&J VACCINE 2021-04-23 00:00:00 Completed [facility] SARS-COV-2 COVID-19 PFIZER VACCINE 2021-04-23 00:00:00 Completed [facility] SARS-COV-2 COVID-19 ALY/J&J VACCINE 2021-04-23 00:00:00 Completed [facility] SARS-COV-2 COVID-19 PFIZER VACCINE 2021-04-23 00:00:00 Completed [facility] SARS-COV-2 COVID-19 ALY/J&J VACCINE 2021-04-23 00:00:00 Completed [facility] SARS-COV-2 COVID-19 PFIZER VACCINE 2021-04-23 00:00:00 Completed [facility] SARS-COV-2 COVID-19 ALY/J&J VACCINE 2021-04-23 00:00:00 Completed [facility] SARS-COV-2 COVID-19 PFIZER VACCINE 2021-04-23 00:00:00 Completed [facility] SARS-COV-2 COVID-19 ALY/J&J VACCINE 2021-04-23 00:00:00 Completed [facility] SARS-COV-2 COVID-19 PFIZER VACCINE 2021-04-23 00:00:00 Completed [facility] SARS-COV-2 COVID-19 ALY/J&J VACCINE 2021-04-23 00:00:00 Completed [facility] SARS-COV-2 COVID-19 PFIZER VACCINE 2021-04-23 00:00:00 Completed [facility] SARS-COV-2 COVID-19 ALY/J&J VACCINE 2021-04-23 00:00:00 Completed [facility] SARS-COV-2 COVID-19 PFIZER VACCINE 2021-04-23 00:00:00 Completed [facility] SARS-COV-2 COVID-19 ALY/J&J VACCINE 2021-04-23 00:00:00 Completed [facility] SARS-COV-2 COVID-19 PFIZER VACCINE 2021-04-23 00:00:00 Completed [facility] SARS-COV-2 COVID-19 ALY/J&J VACCINE 2021-04-23 00:00:00 Completed [facility] SARS-COV-2 COVID-19 PFIZER VACCINE 2021-04-23 00:00:00 Completed [facility] SARS-COV-2 COVID-19 ALY/J&J VACCINE 2021-04-23 00:00:00 Completed [facility] SARS-COV-2 COVID-19 PFIZER VACCINE 2021-04-23 00:00:00 Completed [facility] SARS-COV-2 COVID-19 ALY/J&J VACCINE 2021-04-23 00:00:00 Completed [facility] SARS-COV-2 COVID-19 PFIZER VACCINE 2021-04-23 00:00:00 Completed [facility] SARS-COV-2 COVID-19 ALY/J&J VACCINE 2021-04-23 00:00:00 Completed [facility] SARS-COV-2 COVID-19 PFIZER VACCINE 2021-04-02 00:00:00 Completed [facility] SARS-COV-2 COVID-19 ALY/J&J VACCINE 2021-04-02 00:00:00 Completed [facility] SARS-COV-2 COVID-19 PFIZER VACCINE 2021-04-02 00:00:00 Completed [facility] SARS-COV-2 COVID-19 ALY/J&J VACCINE 2021-04-02 00:00:00 Completed [facility] SARS-COV-2 COVID-19 PFIZER VACCINE 2021-04-02 00:00:00 Completed [facility] SARS-COV-2 COVID-19 ALY/J&J VACCINE 2021-04-02 00:00:00 Completed [facility] SARS-COV-2 COVID-19 PFIZER VACCINE 2021-04-02 00:00:00 Completed [facility] SARS-COV-2 COVID-19 ALY/J&J VACCINE 2021-04-02 00:00:00 Completed [facility] SARS-COV-2 COVID-19 PFIZER VACCINE 2021-04-02 00:00:00 Completed [facility] SARS-COV-2 COVID-19 ALY/J&J VACCINE 2021-04-02 00:00:00 Completed [facility] SARS-COV-2 COVID-19 PFIZER VACCINE 2021-04-02 00:00:00 Completed [facility] SARS-COV-2 COVID-19 ALY/J&J VACCINE 2021-04-02 00:00:00 Completed [facility] SARS-COV-2 COVID-19 PFIZER VACCINE 2021-04-02 00:00:00 Completed [facility] SARS-COV-2 COVID-19 ALY/J&J VACCINE 2021-04-02 00:00:00 Completed [facility] SARS-COV-2 COVID-19 PFIZER VACCINE 2021-04-02 00:00:00 Completed [facility] SARS-COV-2 COVID-19 ALY/J&J VACCINE 2021-04-02 00:00:00 Completed [facility] SARS-COV-2 COVID-19 PFIZER VACCINE 2021-04-02 00:00:00 Completed [facility] SARS-COV-2 COVID-19 ALY/J&J VACCINE 2021-04-02 00:00:00 Completed [facility] SARS-COV-2 COVID-19 PFIZER VACCINE 2021-04-02 00:00:00 Completed [facility] SARS-COV-2 COVID-19 ALY/J&J VACCINE 2021-04-02 00:00:00 Completed [facility] SARS-COV-2 COVID-19 PFIZER VACCINE 2021-04-02 00:00:00 Completed [facility] SARS-COV-2 COVID-19 ALY/J&J VACCINE 2021-04-02 00:00:00 Completed [facility] SARS-COV-2 COVID-19 PFIZER VACCINE 2021-04-02 00:00:00 Completed [facility] SARS-COV-2 COVID-19 ALY/J&J VACCINE 2021-04-02 00:00:00 Completed [facility] SARS-COV-2 COVID-19 PFIZER VACCINE 2021-04-02 00:00:00 Completed [facility] SARS-COV-2 COVID-19 ALY/J&J VACCINE 2021-04-02 00:00:00 Completed [facility] SARS-COV-2 COVID-19 PFIZER VACCINE 2021-04-02 00:00:00 Completed [facility] SARS-COV-2 COVID-19 ALY/J&J VACCINE 2021-04-02 00:00:00 Completed [facility] SARS-COV-2 COVID-19 PFIZER VACCINE 2021-04-02 00:00:00 Completed [facility] SARS-COV-2 COVID-19 ALY/J&J VACCINE 2021-04-02 00:00:00 Completed [facility] SARS-COV-2 COVID-19 PFIZER VACCINE 2021-04-02 00:00:00 Completed [facility] SARS-COV-2 COVID-19 ALY/J&J VACCINE 2021-04-02 00:00:00 Completed [facility] SARS-COV-2 COVID-19 PFIZER VACCINE 2021-04-02 00:00:00 Completed [facility] SARS-COV-2 COVID-19 ALY/J&J VACCINE 2021-04-02 00:00:00 Completed [facility] SARS-COV-2 COVID-19 PFIZER VACCINE 2021-04-02 00:00:00 Completed [facility] SARS-COV-2 COVID-19 ALY/J&J VACCINE 2021-04-02 00:00:00 Completed [facility] SARS-COV-2 COVID-19 PFIZER VACCINE 2021-04-02 00:00:00 Completed [facility] SARS-COV-2 COVID-19 ALY/J&J VACCINE 2021-04-02 00:00:00 Completed [facility] SARS-COV-2 COVID-19 PFIZER VACCINE 2021-04-02 00:00:00 Completed [facility] SARS-COV-2 COVID-19 ALY/J&J VACCINE 2021-04-02 00:00:00 Completed [facility] SARS-COV-2 COVID-19 PFIZER VACCINE 2021-04-02 00:00:00 Completed [facility] SARS-COV-2 COVID-19 ALY/J&J VACCINE 2021-04-02 00:00:00 Completed [facility] SARS-COV-2 COVID-19 PFIZER VACCINE 2021-04-02 00:00:00 Completed [facility] SARS-COV-2 COVID-19 ALY/J&J VACCINE 2021-04-02 00:00:00 Completed [facility] SARS-COV-2 COVID-19 PFIZER VACCINE 2021-04-02 00:00:00 Completed [facility] SARS-COV-2 COVID-19 ALY/J&J VACCINE 2021-04-02 00:00:00 Completed [facility] SARS-COV-2 COVID-19 PFIZER VACCINE 2021-04-02 00:00:00 Completed [facility] SARS-COV-2 COVID-19 ALY/J&J VACCINE 2021-04-02 00:00:00 Completed [facility] Influenza Virus Vaccine Quad IM 3+ YRS 2020-05-12 00:00:00 Completed [facility] Influenza Virus Vaccine Quad IM 3+ YRS 2020-05-12 00:00:00 Completed [facility] Influenza Virus Vaccine Quad IM 3+ YRS 2020-05-12 00:00:00 Completed [facility] Influenza Virus Vaccine Quad IM 3+ YRS 2020-05-12 00:00:00 Completed [facility] Influenza Virus Vaccine Quad IM 3+ YRS 2020-05-12 00:00:00 Completed [facility] Influenza Virus Vaccine Quad IM 3+ YRS 2020-05-12 00:00:00 Completed [facility] Influenza Virus Vaccine Quad IM 3+ YRS 2020-05-12 00:00:00 Completed [facility] Influenza Virus Vaccine Quad IM 3+ YRS 2020-05-12 00:00:00 Completed [facility] Influenza Virus Vaccine Quad IM 3+ YRS 2020-05-12 00:00:00 Completed [facility] Influenza Virus Vaccine Quad IM 3+ YRS 2020-05-12 00:00:00 Completed [facility] Influenza Virus Vaccine Quad IM 3+ YRS 2020-05-12 00:00:00 Completed [facility] Influenza Virus Vaccine Quad IM 3+ YRS 2020-05-12 00:00:00 Completed [facility] Influenza Virus Vaccine Quad IM 3+ YRS 2020-05-12 00:00:00 Completed [facility] Influenza Virus Vaccine Quad IM 3+ YRS 2020-05-12 00:00:00 Completed [facility] Influenza Virus Vaccine Quad IM 3+ YRS 2020-05-12 00:00:00 Completed [facility] Influenza Virus Vaccine Quad IM 3+ YRS 2020-05-12 00:00:00 Completed [facility] Influenza Virus Vaccine Quad IM 3+ YRS 2020-05-12 00:00:00 Completed [facility] Influenza Virus Vaccine Quad IM 3+ YRS 2020-05-12 00:00:00 Completed [facility] Influenza Virus Vaccine Quad IM 3+ YRS 2020-05-12 00:00:00 Completed [facility] Influenza Virus Vaccine Quad IM 3+ YRS 2020-05-12 00:00:00 Completed [facility] Influenza Virus Vaccine Quad IM 3+ YRS 2020-05-12 00:00:00 Completed [facility] Influenza Virus Vaccine Quad IM 3+ YRS 2020-05-12 00:00:00 Completed [facility] Influenza Virus Vaccine Quad IM 3+ YRS 2020-05-12 00:00:00 Completed [facility] Influenza Virus Vaccine Quad IM 3+ YRS 2020-05-12 00:00:00 Completed [facility] LIDOCAINE HCL 10MG/ML LIDOCAINE HCL 10MG/ML 2020-01-20 08:45:00 Completed [facility] LIDOCAINE HCL 10MG/ML LIDOCAINE HCL 10MG/ML 2020-01-20 08:45:00 Completed [facility] LIDOCAINE HCL 10MG/ML LIDOCAINE HCL 10MG/ML 2020-01-20 08:45:00 Completed [facility] LIDOCAINE HCL 10MG/ML LIDOCAINE HCL 10MG/ML 2020-01-20 08:45:00 Completed [facility] LIDOCAINE HCL 10MG/ML LIDOCAINE HCL 10MG/ML 2020-01-20 08:45:00 Completed [facility] LIDOCAINE HCL 10MG/ML LIDOCAINE HCL 10MG/ML 2020-01-20 08:45:00 Completed [facility] Depo-Medrol (Methylprednisolone ) 40mg Depo-Medrol (Methylprednisolon e) 40mg 2020-01-20 08:44:00 Completed [facility] Depo-Medrol (Methylprednisolone ) 40mg Depo-Medrol (Methylprednisolon e) 40mg 2020-01-20 08:44:00 Completed [facility] Depo-Medrol (Methylprednisolone ) 40mg Depo-Medrol (Methylprednisolon e) 40mg 2020-01-20 08:44:00 Completed [facility] Depo-Medrol (Methylprednisolone ) 40mg Depo-Medrol (Methylprednisolon e) 40mg 2020-01-20 08:43:00 Completed [facility] Depo-Medrol (Methylprednisolone ) 40mg Depo-Medrol (Methylprednisolon e) 40mg 2020-01-20 08:43:00 Completed [facility] Depo-Medrol (Methylprednisolone ) 40mg Depo-Medrol (Methylprednisolon e) 40mg 2020-01-20 08:43:00 Completed [facility] Influenza Virus Vaccine Quad IM 3+ YRS 2019-09-13 00:00:00 Completed [facility] Influenza Virus Vaccine Quad IM 3+ YRS 2019-09-13 00:00:00 Completed [facility] Influenza Virus Vaccine Quad IM 3+ YRS 2019-09-13 00:00:00 Completed [facility] Influenza Virus Vaccine Quad IM 3+ YRS 2019-09-13 00:00:00 Completed [facility] Influenza Virus Vaccine Quad IM 3+ YRS 2019-09-13 00:00:00 Completed [facility] Influenza Virus Vaccine Quad IM 3+ YRS 2019-09-13 00:00:00 Completed [facility] Influenza Virus Vaccine Quad IM 3+ YRS 2019-09-13 00:00:00 Completed [facility] Influenza Virus Vaccine Quad IM 3+ YRS 2019-09-13 00:00:00 Completed [facility] Influenza Virus Vaccine Quad IM 3+ YRS 2019-09-13 00:00:00 Completed [facility] Influenza Virus Vaccine Quad IM 3+ YRS 2019-09-13 00:00:00 Completed [facility] Influenza Virus Vaccine Quad IM 3+ YRS 2019-09-13 00:00:00 Completed [facility] Influenza Virus Vaccine Quad IM 3+ YRS 2019-09-13 00:00:00 Completed [facility] Influenza Virus Vaccine Quad IM 3+ YRS 2019-09-13 00:00:00 Completed [facility] Influenza Virus Vaccine Quad IM 3+ YRS 2019-09-13 00:00:00 Completed [facility] Influenza Virus Vaccine Quad IM 3+ YRS 2019-09-13 00:00:00 Completed [facility] Influenza Virus Vaccine Quad IM 3+ YRS 2019-09-13 00:00:00 Completed [facility] Influenza Virus Vaccine Quad IM 3+ YRS 2019-09-13 00:00:00 Completed [facility] Influenza Virus Vaccine Quad IM 3+ YRS 2019-09-13 00:00:00 Completed [facility] Influenza Virus Vaccine Quad IM 3+ YRS 2019-09-13 00:00:00 Completed [facility] Influenza Virus Vaccine Quad IM 3+ YRS 2019-09-13 00:00:00 Completed [facility] Influenza Virus Vaccine Quad IM 3+ YRS 2019-09-13 00:00:00 Completed [facility] Influenza Virus Vaccine Quad IM 3+ YRS 2019-09-13 00:00:00 Completed [facility] Influenza Virus Vaccine Quad IM 3+ YRS 2019-09-13 00:00:00 Completed [facility] Influenza Virus Vaccine Quad IM 3+ YRS 2019-09-13 00:00:00 Completed [facility] SARS-COV-2 COVID-19 PFIZER VACCINE Unknown Completed [facility] SARS-COV-2 COVID-19 ALY/J&J VACCINE Unknown Completed [facility] SARS-COV-2 COVID-19 ALY/J&J VACCINE Unknown Completed [facility] Influenza Virus Vaccine Quad IM 3+ YRS Unknown Completed [facility] Influenza Virus Vaccine Quad IM 3+ YRS Unknown Completed [facility] Influenza Virus Vaccine Quad IM 3+ YRS Unknown Completed [facility] SARS-COV-2 COVID-19 PFIZER VACCINE Unknown Completed [facility] SARS-COV-2 COVID-19 PFIZER VACCINE Unknown Completed [facility] SARS-COV-2 COVID-19 ALY/J&J VACCINE Unknown Completed [facility] SARS-COV-2 COVID-19 ALY/J&J VACCINE Unknown Completed [facility] Influenza Virus Vaccine Quad IM 3+ YRS Unknown Completed [facility] Influenza Virus Vaccine Quad IM 3+ YRS Unknown Completed [facility] Influenza Virus Vaccine Quad IM 3+ YRS Unknown Completed [facility] SARS-COV-2 COVID-19 PFIZER VACCINE Unknown Completed [facility] SARS-COV-2 COVID-19 PFIZER VACCINE Unknown Completed [facility] SARS-COV-2 COVID-19 ALY/J&J VACCINE Unknown Completed [facility] SARS-COV-2 COVID-19 ALY/J&J VACCINE Unknown Completed [facility] Influenza Virus Vaccine Quad IM 3+ YRS Unknown Completed [facility] Influenza Virus Vaccine Quad IM 3+ YRS Unknown Completed [facility] Influenza Virus Vaccine Quad IM 3+ YRS Unknown Completed [facility] SARS-COV-2 COVID-19 PFIZER VACCINE Unknown Completed [facility] SARS-COV-2 COVID-19 PFIZER VACCINE Unknown Completed [facility] SARS-COV-2 COVID-19 ALY/J&J VACCINE Unknown Completed [facility] SARS-COV-2 COVID-19 ALY/J&J VACCINE Unknown Completed [facility] Influenza Virus Vaccine Quad IM 3+ YRS Unknown Completed [facility] Influenza Virus Vaccine Quad IM 3+ YRS Unknown Completed [facility] Influenza Virus Vaccine Quad IM 3+ YRS Unknown Completed [facility] SARS-COV-2 COVID-19 PFIZER VACCINE Unknown Completed [facility] Vital Signs Vital Name Observation Time Observation Value Comments S ource height 2023-12-17 09:00:00 61.5 [in_i] Comm on [facility] weight 2023-12-17 09:00:00 213 [lb_av] Comm on [facility] temperature 2023-12-17 09:00:00 97.6 [degF] Com mon [facility] bmi 2023-12-17 09:00:00 39.59 kg/m2 Comm on [facility] blood pressure systolic 2023-12-17 09:00:00 126 mm[Hg] [facility] blood pressure diastolic 2023-12-17 09:00:00 78 mm[Hg] [facility] height 2023-11-28 08:00:00 61.5 [in_i] Comm on [facility] weight 2023-11-28 08:00:00 212 [lb_av] Comm on [facility] temperature 2023-11-28 08:00:00 97.4 [degF] Com mon [facility] bmi 2023-11-28 08:00:00 39.4 kg/m2 Commo n [facility] blood pressure systolic 2023-11-28 08:00:00 124 mm[Hg] [facility] blood pressure diastolic 2023-11-28 08:00:00 81 mm[Hg] Common [facility] height 2023-09-18 14:30:00 61.5 [in_i] Comm on [facility] weight 2023-09-18 14:30:00 217.6 [lb_av] Co mmon [facility] temperature 2023-09-18 14:30:00 97.9 [degF] Com mon [facility] bmi 2023-09-18 14:30:00 40.44 kg/m2 Comm on [facility] blood pressure systolic 2023-09-18 14:30:00 128 mm[Hg] [facility] blood pressure diastolic 2023-09-18 14:30:00 83 mm[Hg] Common [facility] Systolic blood pressure 2023-08-30 17:41:00 129 mm[Hg] [facility] Diastolic blood pressure 2023-08-30 17:41:00 73 mm[Hg] [facility] Heart rate 2023-08-30 17:41:00 93 /min [facility] Body temperature 2023-08-30 17:41:00 36.67 Vika [facility] Respiratory rate 2023-08-30 17:41:00 18 /min [facility] Oxygen saturation in Arterial blood by Pulse oximetry 2023-08-30 17:41:00 97 /min [facility] Body height 2023-08-30 01:53:00 157.5 cm [facility] Body weight 2023-08-30 01:53:00 103.42 kg [facility] BMI 2023-08-30 01:53:00 41.70 kg/m2 [facility] height 2023-05-23 10:30:00 61.5 [in_i] Comm on [facility] weight 2023-05-23 10:30:00 225 [lb_av] Comm on [facility] temperature 2023-05-23 10:30:00 98.1 [degF] Com mon [facility] bmi 2023-05-23 10:30:00 41.82 kg/m2 Comm on [facility] blood pressure systolic 2023-05-23 10:30:00 131 mm[Hg] Common [facility] blood pressure diastolic 2023-05-23 10:30:00 82 mm[Hg] Common [facility] height 2023-05-07 09:30:00 61.5 [in_i] Comm on [facility] weight 2023-05-07 09:30:00 227 [lb_av] Comm on [facility] temperature 2023-05-07 09:30:00 97.6 [degF] Com [facility] bmi 2023-05-07 09:30:00 42.19 kg/m2 Comm on [facility] blood pressure systolic 2023-05-07 09:30:00 130 mm[Hg] Common [facility] blood pressure diastolic 2023-05-07 09:30:00 78 mm[Hg] Common [facility] height 2023-03-17 13:45:00 61.5 [in_i] Comm on [facility] weight 2023-03-17 13:45:00 220 [lb_av] Comm on [facility] temperature 2023-03-17 13:45:00 98.2 [degF] Com mon [facility] bmi 2023-03-17 13:45:00 40.89 kg/m2 Comm on [facility] blood pressure systolic 2023-03-17 13:45:00 132 mm[Hg] Common [facility] blood pressure diastolic 2023-03-17 13:45:00 84 mm[Hg] Common [facility] height 2023-01-13 08:45:00 61.5 [in_i] Comm on [facility] weight 2023-01-13 08:45:00 221 [lb_av] Comm on [facility] temperature 2023-01-13 08:45:00 97.9 [degF] Com mon [facility] bmi 2023-01-13 08:45:00 41.08 kg/m2 Comm on [facility] blood pressure systolic 2023-01-13 08:45:00 128 mm[Hg] [facility] blood pressure diastolic 2023-01-13 08:45:00 82 mm[Hg] Common [facility] height 2023-01-07 09:30:00 61.5 [in_i] Comm on [facility] weight 2023-01-07 09:30:00 221 [lb_av] Comm on [facility] temperature 2023-01-07 09:30:00 97.7 [degF] Com mon [facility] bmi 2023-01-07 09:30:00 41.08 kg/m2 Comm on [facility] blood pressure systolic 2023-01-07 09:30:00 134 mm[Hg] Common [facility] blood pressure diastolic 2023-01-07 09:30:00 80 mm[Hg] Common [facility] Systolic blood pressure 2022-12-27 14:00:00 120 mm[Hg] [facility] Diastolic blood pressure 2022-12-27 14:00:00 87 mm[Hg] [facility] Heart rate 2022-12-27 14:00:00 102 /min [facility] Body height 2022-12-27 14:00:00 152.4 cm [facility] Body weight 2022-12-27 14:00:00 101.696 kg [facility] BMI 2022-12-27 14:00:00 43.79 kg/m2 [facility] Oxygen saturation in Arterial blood by Pulse oximetry 2022-12-27 14:00:00 98 /min [facility] Systolic blood pressure 2022-09-23 14:42:00 141 mm[Hg] [facility] Diastolic blood pressure 2022-09-23 14:42:00 74 mm[Hg] [facility] Heart rate 2022-09-23 14:42:00 76 /min [facility] Respiratory rate 2022-09-23 14:42:00 8 /min [facility] Oxygen saturation in Arterial blood by Pulse oximetry 2022-09-23 14:42:00 100 /min [facility] Body temperature 2022-09-23 14:07:00 36.5 Vika [facility] Body height 2022-09-17 19:30:00 154.9 cm [facility] Body weight 2022-09-17 19:30:00 113.399 kg [facility] BMI 2022-09-17 19:30:00 47.24 kg/m2 [facility] Systolic blood pressure 2022-09-23 12:46:00 144 mm[Hg] [facility] Diastolic blood pressure 2022-09-23 12:46:00 68 mm[Hg] [facility] Heart rate 2022-09-23 12:46:00 90 /min [facility] Body temperature 2022-09-23 12:46:00 36.56 Vika [facility] Respiratory rate 2022-09-23 12:46:00 17 /min [facility] Oxygen saturation in Arterial blood by Pulse oximetry 2022-09-23 12:46:00 95 /min [facility] Body height 2022-09-17 19:30:00 154.9 cm Univ [facility] Body weight 2022-09-17 19:30:00 113.399 kg [facility] BMI 2022-09-17 19:30:00 47.24 kg/m2 Univ [facility] Systolic blood pressure 2022-09-19 16:02:00 125 mm[Hg] [facility] Diastolic blood pressure 2022-09-19 16:02:00 81 mm[Hg] [facility] Heart rate 2022-09-19 16:02:00 79 /min [facility] Body temperature 2022-09-19 16:02:00 36.94 Vika [facility] Respiratory rate 2022-09-19 16:02:00 18 /min [facility] Body height 2022-09-19 16:02:00 154.9 cm [facility] Body weight 2022-09-19 16:02:00 104.327 kg [facility] BMI 2022-09-19 16:02:00 43.46 kg/m2 [facility] Oxygen saturation in Arterial blood by Pulse oximetry 2022-09-19 16:02:00 98 /min [facility] Body weight 2022-09-10 21:39:00 113.399 kg [facility] BMI 2022-09-10 21:39:00 47.24 kg/m2 [facility] Systolic blood pressure 2022-06-12 18:06:00 155 mm[Hg] [facility] Diastolic blood pressure 2022-06-12 18:06:00 84 mm[Hg] [facility] Heart rate 2022-06-12 18:06:00 90 /min [facility] Body temperature 2022-06-12 18:06:00 36 Vika [facility] Respiratory rate 2022-06-12 18:06:00 18 /min [facility] Oxygen saturation in Arterial blood by Pulse oximetry 2022-06-12 18:06:00 94 /min [facility] Body weight 2022-06-11 09:20:00 113.49 kg [facility] BMI 2022-06-11 09:20:00 47.27 kg/m2 [facility] Body height 2022-06-11 01:52:00 154.9 cm [facility] Systolic blood pressure 2022-04-19 13:32:00 127 mm[Hg] [facility] Diastolic blood pressure 2022-04-19 13:32:00 67 mm[Hg] [facility] Heart rate 2022-04-19 13:32:00 88 /min [facility] Body height 2022-04-19 13:32:00 154.9 cm [facility] Body weight 2022-04-19 13:32:00 117.028 kg [facility] BMI 2022-04-19 13:32:00 48.75 kg/m2 [facility] Body height 2020-12-18 16:17:00 157.5 cm [facility] weight 2020-12-18 16:17:00 115[facility]667 [facility] BMI 2020-12-18 16:17:00 46.64 kg/m2 [facility] height 2020-12-18 16:17:00 157.5 cm [facility] Body weight 2020-12-18 16:17:00 115.667 [facility] BMI 2020-12-18 16:17:00 46.64 kg/m2 [facility] Procedures Procedure Date / Time Performed Performing Clinician Source POCT GLUCOSE (AUTOMATED) 2023-08-30 18:30:00 Jarred Barker [facility] POCT GLUCOSE (AUTOMATED) 2023-08-30 13:51:00 Jarred Barker [facility] TROPONIN I 2023-08-30 09:22:00 Malgorzata Santos [facility] GLYCOSYLATED HEMOGLOBIN (A1C) 2023-08-30 04:51:00 Annamaria Barker [facility] TROPONIN I 2023-08-30 04:50:00 Malgorzata Santos [facility] POCT GLUCOSE (AUTOMATED) 2023-08-30 02:21:00 Jarred Barker [facility] URINE DRUG (IMMUNOASSAY) - COMPREHENSIVE DRUG SCREEN W/O REFLEX 2023-08-30 00:00:00 Marylou Driver [facility] CT ABDOMEN PELVIS W CONTRAST 2023-08-29 23:18:33 Marylou Driver [facility] CT CHEST PULMONARY ANGIOGRAM 2023-08-29 19:11:03 Marylou Driver [facility] URINALYSIS 2023-08-29 17:44:00 Marylou Driver [facility] XR CHEST 1 VW 2023-08-29 17:05:57 [facility] LIPASE 2023-08-29 16:43:00 Marylou Driver [facility] MAGNESIUM 2023-08-29 16:43:00 Marylou Driver [facility] TROPONIN I 2023-08-29 16:43:00 Marylou Driver [facility] COMP. METABOLIC PANEL (34448) 2023-08-29 16:43:00 Marylou Driver [facility] CBC WITH DIFF 2023-08-29 16:43:00 [facility] D-DIMER 2023-08-29 16:43:00 Marylou Driver [facility] HB ECG ROUTINE & RHYTHM STRIP 2023-08-29 16:32:22 Marylou Driver [facility] EXTERNAL PROVIDER - ADC CARDIOLOGY 2022-12-31 05:01:00 Doctor Unassigned, Tab [facility] EXTERNAL PROVIDER - ADC REFERRAL 2022-12-20 05:01:00 Doctor Unassigned, Tab [facility] FL TIME OR (NON-REPORTABLE) 2022-09-23 14:53:25 Kayla Lutz [facility] FL TIME OR (NON-REPORTABLE) 2022-09-23 14:53:25 Kayla Lutz [facility] MAJOR JOINT INJECTION 2022-09-23 13:32:00 Inderjit Lutz [facility] POCT GLUCOSE (AUTOMATED) 2022-09-23 12:50:00 Kayla Lutz [facility] POCT GLUCOSE (AUTOMATED) 2022-09-23 12:50:00 Kayla Lutz [facility] HB ABO GROUPING 2022-09-23 12:45:00 Kayla Lutz [facility] HB ABO GROUPING 2022-09-23 12:45:00 Kayla Lutz [facility] DAY SURGERY - ADC 2022-09-23 06:01:00 Doctor Rena ssigned, Tab [facility] TROPONIN I 2022-09-19 15:38:00 Pedro Luis Rushing [facility] XR CHEST 2 VW 2022-09-19 14:38:32 [facility]IGN[facility] OF BENEFITS 2022-09-19 14:20:21 Docto r Unassigned, Tab [facility] EXTERNAL PROVIDER RECORDS 2022-09-17 06:01:00 Doctor Unassigned, Tab [facility] ASSIGNMENT OF BENEFITS 2022-09-10 21:32:35 Docto r Unassigned, Tab [facility] POCT GLUCOSE (AUTOMATED) 2022-06-12 18:08:00 Jarred Barker [facility] BASIC METABOLIC PANEL (NA, K, CL, CO2, GLUCOSE, BUN, CREATININE, CA) 2022-06-12 09:27:00 Jimmy Rowland [facility] CBC WITH DIFF 2022-06-12 09:27:00 [facility] 2022-06-12 07:56:00 [facility] ([facility]) 2022-06-12 01:45:00 [facility] POCT GLUCOSE (AUTOMATED) 2022-06-11 22:56:00 Jarred Barker [facility] POCT GLUCOSE (AUTOMATED) 2022-06-11 18:11:00 Jarred Barker [facility] POCT GLUCOSE (AUTOMATED) 2022-06-11 14:05:00 Jarred Barker [facility] PHOSPHORUS 2022-06-11 10:40:00 Robbi Muro [facility] CREATINE KINASE 2022-06-11 10:40:00 [facility] AM[facility] 2022-06-11 10:40:00 Robbi Muro [facility] LIPASE 2022-06-11 10:40:00 Robbi Muro [facility] MAGNESIUM 2022-06-11 10:40:00 Robbi Muro [facility] COMP. METABOLIC PANEL (08446) 2022-06-11 10:40:00 Robbi Muro [facility] CBC WITH DIFF 2022-06-11 10:40:00 [facility] GLYCOSYLATED HEMOGLOBIN (A1C) 2022-06-11 10:40:00 Jimmy Rowland [facility] N-TERMINAL PRO-BNP 2022-06-11 10:40:00 Robbi Muro [facility] POCT GLUCOSE (AUTOMATED) 2022-06-11 07:56:00 Jarred Barker [facility] URINE CULTURE 2022-06-11 05:18:00 [facility] PROTHROMBIN TIME / INR 2022-06-11 03:24:00 Thang Muro [facility] LACTIC ACID WHOLE BLOOD 2022-06-11 03:18:00 Jory Muro [facility] C-REACTIVE PROTEIN 2022-06-11 03:17:00 Robbi Muro [facility] SEDIMENTATION RATE 2022-06-11 03:17:00 Robbi Muro [facility] PROCALCITONIN 2022-06-11 03:17:00 Robbi Muro [facility] US OVARY TORSION 2022-06-10 22:01:56 Brodie Celmons [facility] URINALYSIS 2022-06-10 19:14:00 Brodie Clemons [facility] CT ABDOMEN PELVIS WO CONTRAST 2022-06-10 18:36:36 Brodie Clemons [facility] PHOSPHORUS 2022-06-10 17:54:00 Bhaskar ender [facility] URIC ACID 2022-06-10 17:54:00 Bhaskar ender [facility] LIPASE 2022-06-10 17:54:00 Brodie Clemons [facility] MAGNESIUM 2022-06-10 17:54:00 Robbi Muro [facility] FERRITIN SERUM 2022-06-10 17:54:00 Robbi Muro [facility] HEPATIC FUNCTION PANEL (41991) (ALB,T.PRO,BILI T,BU/BC,ALT,AST,ALK PHOS) 2022-06-10 17:54:00 Brodie Clemons [facility] BASIC METABOLIC PANEL (NA, K, CL, CO2, GLUCOSE, BUN, CREATININE, CA) 2022-06-10 17:54:00 Brodie Clemons [facility] IRON PANEL 2022-06-10 17:54:00 Robbi Muro [facility] CBC WITH DIFF 2022-06-10 17:54:00 Brodie Clemons [facility] N-TERMINAL PRO-BNP 2022-06-10 17:54:00 Robbi Muro [facility] CONSENT/REFUSAL FOR DIAGNOSIS AND TREATMENT 2022-06-10 17:38:54 Doctor Unassigned, Tab [facility] Encounters Start Date/Time End Date/Time Encounter Type Admission Type Attending Clinicians Care Facility Care Department Encounter ID Source 2023-09-16 15:59:01 Outpatient Estefany Evans [facility] [id number] [facility] 2023-09-15 13:03:00 Outpatient Esteafny Evans [facility] [id number] [facility] 2023-01-10 09:10:01 Outpatient Estefany Evans STL[facility] ST[facility] [id number] [facility] 2023-01-07 11:56:01 Outpatient Estefany Evans STL[facility] ST[facility] [id number] [facility] 2022-12-24 16:13:00 Outpatient Estefany Evans [facility] ST[facility] [id number] [facility] 2022-01-04 12:25:16 Outpatient KAYLA MAGDALENO [facility] [id number] [facility] 2021-08-29 12:51:44 Outpatient STLML[facility] [id number] [facility] 2021-08-29 11:59:56 Outpatient STL[facility] [id number] [facility] 2021-08-29 11:28:05 Outpatient [facility] [id number] [facility] 2021-08-29 11:27:12 Outpatient [facility] [id number] [facility] 2021-06-01 02:46:06 Emergency [facility] [id number] [facility] 2020-12-18 09:37:27 Outpatient [facility] [id number] [facility] 2020-12-18 09:37:27 Outpatient [facility] [id number] [facility] 2020-12-18 09:37:27 Outpatient [facility] [id number] [facility] 2020-12-15 12:03:34 Outpatient [facility] [id number] [facility] 2020-12-15 12:03:34 Outpatient [facility] [id number] [facility] 2020-12-15 12:00:05 Outpatient [facility] [id number] [facility] 2020-12-09 04:06:39 Outpatient LACEY CLEMENTS [facility] [id number] [facility] 2023-12-17 00:00:00 2023-12-17 00:00:00 (PO) Post Op STLMLC STL[facility] [id number] [facility] 2023-12-11 00:00:00 2023-12-11 00:00:00 (TEL) STLMLC STL[facility] [id number] [facility] 2023-12-01 00:00:00 2023-12-01 00:00:00 (TEL) STLMLC STL[facility] [id number] [facility] 2023-11-28 00:00:00 2023-11-28 00:00:00 (F/U) Follow Up Visit STLMLC STL[facility] [id number] [facility] 2023-11-28 00:00:00 2023-11-28 00:00:00 (TEL) STLMLC STL[facility]C [id number] [facility] 2023-10-22 00:00:00 2023-10-22 00:00:00 Outpatient BREE GRIFFITH [facility] [id number] [facility] 2023-09-18 00:00:00 2023-09-18 00:00:00 (ESTPT) Establishe d Patient STLMLC STLMLC [id number] [facility] 2023-09-03 00:00:00 2023-09-03 00:00:00 Patient Secure Msg Doctor Unassigned, Tab [facility] 1.114 350.1.13.10 4.2.7.2.686 [id number] [facility] 2023-09-01 00:00:00 2023-09-01 00:00:00 Transition of Care Veronika Espinoza 1..114 350.1.13.10 4.2.7.2.686 [id number] [facility] 2023-08-29 10:29:00 2023-08-30 14:13:00 Outpatient Melvin ANNAMARIA BARKER [facility] [id number] [facility] 2023-08-29 10:29:00 2023-08-30 14:13:00 Emergency Marylou Driver Annamaria Barker [facility] [id number] 350.1.13.10 4.2.7.2.686 [id number] [facility] 2023-08-30 00:00:00 2023-08-30 00:00:00 Telephone Mayra Cervantesrenuwanda [facility] PROFESSIO [facility] [id number] 350.1.13.10 4.2.7.2.686 [id number] [facility] 2023-05-23 00:00:00 2023-05-23 00:00:00 (PO) Post Op STLMLC STL[facility]C [id number] [facility] 2023-05-07 00:00:00 2023-05-07 00:00:00 NON-BILLAB LE VISIT STLMLC STLMLC [id number] [facility] 2023-04-29 00:00:00 2023-04-29 00:00:00 (TEL) STLMLC STLMLC [id number] [facility] 2023-04-08 00:00:00 2023-04-08 00:00:00 (TEL) STLMLC STLMLC [id number] [facility] 2023-04-03 00:00:00 2023-04-03 00:00:00 (TEL) STLMLC STLMLC [id number] [facility] 2023-03-19 00:00:00 2023-03-19 00:00:00 (TEL) STLMLC STL[facility]C [id number] [facility] 2023-03-17 00:00:00 2023-03-17 00:00:00 OFFICE VISIT ESTAB PT LEVEL 3 STLMLC ST[facility] [id number] [facility] 2023-01-13 00:00:00 2023-01-13 00:00:00 OFFICE VISIT ESTAB PT LEVEL 3 [facility] [id number] [facility] 2023-01-07 00:00:00 2023-01-07 00:00:00 OFFICE VISIT ESTAB PT [facility]EVEL [address] [facility] [id number] [facility] 2022-12-31 00:00:00 2022-12-31 00:00:00 [facility] [id number] 350.1.13.10 4.2.7.2.686 [id number] [facility] 2022-12-31 00:00:00 2022-12-31 00:00:00 Orders Only Doctor Unassigned, Tab [place] [id number] 350.1.13.10 4.2.7.2.686 [id number] [facility] 2022-12-27 09:20:00 2022-12-27 09:20:00 [facility] 1.2.840.114 350.1.13.10 4.2.7.2.686 [id number] [facility] 2022-12-27 09:20:00 2022-12-27 09:12:16 [facility] [id number] [facility] 2022-12-26 09:40:00 2022-12-26 09:40:00 [facility] [id number] [facility] 2022-12-20 00:00:00 2022-12-20 00:00:00 Orders Only Doctor Unassigned, Tab [place] [id number] 350.1.13.10 4.2.7.2.686 [id number] [facility] 2022-09-23 06:38:00 2022-09-23 09:05:00 Outpatient R KAYLA LUTZ [facility] [id number] [facility] 2022-09-23 06:38:00 2022-09-23 09:05:00 Hospital Encounter Kayla Lutz [facility] [place] 1.20.114 350.1.13.10 4.2.7.2.686 [id number] [facility] 2022-09-23 07:25:00 2022-09-23 07:50:00 Surgery Kayla Lutz [facility] [place] 1.0.114 350.1.13.10 4.2.7.2.686 [id number] [facility] 2022-09-23 00:00:00 2022-09-23 00:00:00 Orders Only Doctor Unassigned, Tab [facility] 1.0.114 350.1.13.10 4.2.7.2.686 [id number] [facility] 2022-09-20 00:00:00 2022-09-20 00:00:00 Telephone Bernice Colunga [facility] 1.114 350.1.13.10 4.2.7.2.686 [id number] [facility] 2022-09-19 10:05:00 2022-09-19 11:39:00 Emergency X PEDRO LUIS RUSHING [facility] ERT [id number] [facility] 2022-09-19 10:05:00 2022-09-19 11:39:00 Emergency Pedro Luis Rushing [facility] 1.0.114 350.1.13.10 4.2.7.2.686 [id number] [facility] 2022-09-19 10:15:00 2022-09-19 10:30:00 Actuarial Trainee Visit Luzmaria, Ha[facility] Kayla Lutz [facility] PROFESSIO [facility] 1..114 350.1.13.10 4.2.7.2.686 [id number] [facility] 2022-09-19 08:22:49 2022-09-19 10:04:00 Hospital Encounter Kayla Lutz [facility] 1..114 350.1.13.10 4.2.7.2.686 [id number] [facility] 2022-09-19 08:21:46 2022-09-19 08:21:46 Outpatient R KAYLA LUTZ [facility] [id number] [facility] 2022-09-19 00:00:00 2022-09-19 00:00:00 Orders Only Doctor Unassigned, Tab [facility] 1..114 350.1.13.10 4.2.7.2.686 [id number] [facility] 2022-09-17 00:00:00 2022-09-17 00:00:00 Orders Only Doctor Unassigned, Tab [facility] 1..114 350.1.13.10 4.2.7.2.686 [id number] [facility] 2022-09-16 00:00:00 2022-09-16 00:00:00 Prep For Surgery Kayla Lutz [facility] 1.114 350.1.13.10 4.2.7.2.686 [id number] [facility] 2022-09-10 16:30:00 2022-09-10 23:59:00 Outpatient [facility] [id number] [facility] 2022-09-10 16:00:00 2022-09-10 16:15:00 Office Visit Ke[facility] 1.2.840.114 350.1.13.10 4.2.7.2.686 [id number] 198 [id number] [facility] 2022-09-10 00:00:00 2022-09-10 00:00:00 Orders Only Doctor Unassigned, Tab [facility] 1.2.840.114 350.1.13.10 4.2.7.2.686 [id number] [id number] [facility] 2022-09-10 00:00:00 2022-09-10 00:00:00 [facility] 1.2.840.114 350.1.13.10 4.2.7.2.686 [id number] [facility] 2022-09-09 00:00:00 2022-09-09 00:00:00 Telephone Keanu [facility] 1.2.840.114 350.1.13.10 4.2.7.2.686 [id number] [facility] 2022-06-13 00:00:00 2022-06-13 00:00:00 Transition of Care Chelo Cornejo 1.2.840.114 350.1.13.10 4.2.7.2.686 [id number] [facility] 2022-06-10 11:37:00 2022-06-12 16:00:00 Outpatient ANNAMARIA RAY [facility] [id number] [facility] 2022-06-10 11:37:00 2022-06-12 16:00:00 Emergency Brodie Clemons David [facility] 1..840.114 350.1.13.10 4.2.7.2.686 [id number] [facility] 2022-04-19 08:55:00 2022-04-19 23:59:00 Outpatient BERNICE [facility] [id number] [facility] 2022-04-19 08:55:00 2022-04-19 23:59:00 Outpatient Shira KEANU [facility] [id number] [facility] 2022-04-19 08:45:00 2022-04-19 09:00:00 Office Visit Bernice Colunga [facility]?NATY [facility] 1..840.114 350.1.13.10 4.2.7.2.686 [id number] [facility] 2022-02-25 15:15:00 2022-02-25 15:15:00 Outpatient Shira KEANU [facility] [id number] [facility] 2022-02-21 10:45:00 2022-02-21 10:45:00 Outpatient Shira EKANU [facility] [id number] [facility] 2022-02-18 10:30:00 2022-02-18 10:30:00 Outpatient R FILIPE WIGGINS [facility] [id number] [facility] 2022-01-18 10:00:00 2022-01-18 10:00:00 Outpatient R CLAYTON GARRIDO [facility] [id number] [facility] 2022-01-17 00:00:00 2022-01-17 00:00:00 Kayla Rodriguez [facility]?NATY [facility] 1..840.114 350.1.13.10 4.2.7.2.686 [id number] 198 [id number] [facility] 2022-01-14 06:59:00 2022-01-14 09:15:00 Outpatient R [facility] [id number] [facility] 2022-01-14 06:59:00 2022-01-14 09:15:00 Hospital Encounter Kayla Lutz [facility] 1.2.840.114 350.1.13.10 4.2.7.2.686 [id number] [facility] 2022-01-14 08:20:00 2022-01-14 09:12:00 Surgery Kayla Lutz [facility] 1.2.840.114 350.1.13.10 4.2.7.2.686 [id number] [facility] 2022-01-14 08:25:00 2022-01-14 08:39:00 Anesthesia Event Bharath Padgett John M [facility] 1.2.840.114 350.1.13.10 4.2.7.2.686 [id number] [facility] 2022-01-14 00:00:00 2022-01-14 00:00:00 Orders Only Doctor Unassigned, Tab [facility] 1.2.840.114 350.1.13.10 4.2.7.2.686 [id number] [id number] [facility] 2022-01-11 07:39:32 2022-01-11 23:59:00 Hospital Encounter Kayla Lutz [facility] 1.2.840.114 350.1.13.10 4.2.7.2.686 [id number] [facility] 2022-01-11 07:39:18 2022-01-11 23:59:00 Outpatient R BOLIVAR KAYLA [facility] [id number] [facility] 2022-01-11 08:30:00 2022-01-11 08:45:00 Actuarial Trainee Visit Pob, Adc Lab Main [facility] 1..840.114 350.1.13.10 4.2.7.2.686 [id number] [facility] 2022-01-11 08:15:00 2022-01-11 08:30:00 Laboratory Only Only, Adc Test Kayla Lutz [facility] 1.2840.114 350.1.13.10 4.2.7.2.686 [id number] [facility] 2022-01-11 08:15:00 2022-01-11 08:15:00 Outpatient R KAYLA LUTZ [facility] [id number] [facility] 2022-01-11 00:00:00 2022-01-11 00:00:00 Telephone Kayla Lutz [facility] 1..840.114 350.1.13.10 4.2.7.2.686 [id number] 198 [id number] [facility] 2022-01-04 11:15:00 2022-01-04 11:30:00 [facility] 1..840.114 350.1.13.10 4.2.7.2.686 [id number] [facility] 2022-01-04 11:15:00 2022-01-04 11:15:00 Outpatient BERNICE [facility] [id number] [facility] 2022-01-04 11:15:00 2022-01-04 11:15:00 Outpatient BERNICE [facility] [id number] [facility] 2022-01-04 00:00:00 2022-01-04 00:00:00 Prep For Surgery [facility] 1.2.840.114 350.1.13.10 4.2.7.2.686 [id number] [facility] 2021-12-20 10:00:00 2021-12-20 10:00:00 Outpatient R KAYLA LUTZ [facility] [id number] [facility] 2021-12-11 00:00:00 2021-12-11 00:00:00 Telephone LutzKayla tony [facility]?RITAJory [facility] 1..840.114 350.1.13.10 4.2.7.2.686 [id number] 198 [id number] [facility] 2021-12-07 10:23:58 2021-12-07 23:59:00 Outpatient R COLUNGA [facility] [id number] [facility] 2021-12-07 10:23:58 2021-12-07 23:59:00 Hospital Encounter Keanu Bernice [facility] 1..840.114 350.1.13.10 4.2.7.2.686 [id number] [facility] 2021-11-30 10:45:00 2021-11-30 11:13:44 Outpatient R COLUNGA [facility] [id number] [facility] 2021-11-30 10:45:00 2021-11-30 11:13:44 Office Visit Keanu [facility]?RITAJory [facility] 1..840.114 350.1.13.10 4.2.7.2.686 [id number] 198 [id number] [facility] 2021-11-30 10:45:00 2021-11-30 11:13:44 Outpatient R KEANU [facility] [id number] [facility] 2021-11-28 00:00:00 2021-11-28 00:00:00 Telephone Lutz Kayla L [facility]?NATY [facility] 1.2840.114 350.1.13.10 4.2.7.2.686 [id number] 198 [id number] [facility] 2021-11-28 00:00:00 2021-11-28 00:00:00 Orders Only Doctor Unassigned, Tab [facility] 1.2840.114 350.1.13.10 4.2.7.2.686 [id number] [id number] [facility] 2021-11-27 00:00:00 2021-11-27 00:00:00 Telephone Kayla Lutz [facility] 1.20.114 350.1.13.10 4.2.7.2.686 [id number] [facility] 2021-11-22 00:00:00 2021-11-22 00:00:00 Orders Only Doctor Unassigned, Tab [facility] 1.2840.114 350.1.13.10 4.2.7.2.686 [id number] [id number] [facility] 2021-11-21 00:00:00 2021-11-21 00:00:00 Telephone Kayla Lutz [facility] 1.840.114 350.1.13.10 4.2.7.2.686 [id number] 198 [id number] [facility] 2021-11-21 00:00:00 2021-11-21 00:00:00 Telephone Kayla Lutz [facility]?NATY [facility] 1.2840.114 350.1.13.10 4.2.7.2.686 [id number] 198 [id number] [facility] 2021-11-19 00:00:00 2021-11-19 00:00:00 Telephone Bernice Colunga [facility] 1.2840.114 350.1.13.10 4.2.7.2.686 [id number] 198 [id number] [facility] 2021-11-19 00:00:00 2021-11-19 00:00:00 [facility] 1.2.840.114 350.1.13.10 4.2.7.2.686 [id number] 198 [id number] [facility] 2021-11-12 00:00:00 2021-11-12 00:00:00 Telephone Kayla Lutz [facility] 1.2840.114 350.1.13.10 4.2.7.2.686 [id number] 198 [id number] [facility] 2021-10-29 00:00:00 2021-10-29 00:00:00 Telephone [facility] 1.840.114 350.1.13.10 4.2.7.2.686 [id number] 198 [id number] [facility] 2021-10-26 00:00:00 2021-10-26 00:00:00 Telephone [facility] 1.2.840.114 350.1.13.10 4.2.7.2.686 [id number] 198 [id number] [facility] 2021-10-24 09:30:00 2021-10-24 10:20:40 Outpatient R BERNICE [facility] [id number] [facility] 2021-10-24 09:30:00 2021-10-24 10:20:40 Office Visit Bernice Colunga [facility] [place]?[facility] 1.2.840.114 350.1.13.10 4.2.7.2.686 [id number] 198 [id number] [facility] 2021-10-24 09:30:00 2021-10-24 10:20:40 Outpatient R KEANU [facility] [id number] [facility] 2021-10-24 09:30:00 2021-10-24 10:20:40 Office Visit Keanu [facility] 1.2840.114 350.1.13.10 4.2.7.2.686 [id number] 198 [id number] [facility] 2021-10-19 00:00:00 2021-10-19 00:00:00 Telephone Keanu [facility]?NATY [facility] 1.84.114 350.1.13.10 4.2.7.2.686 [id number] 198 [id number] [facility] 2021-10-18 00:00:00 2021-10-18 00:00:00 Telephone Keanu [facility]?NATY [facility] 1.84.114 350.1.13.10 4.2.7.2.686 [id number] 198 [id number] [facility] 2021-10-12 14:00:00 2021-10-12 15:00:16 Outpatient RENÉE VILLARREAL [facility] [id number] [facility] 2021-10-02 00:00:00 2021-10-02 00:00:00 Telephone Keanu [facility] 1.284.114 350.1.13.10 4.2.7.2.686 [id number] 198 [id number] [facility] 2021-10-02 00:00:00 2021-10-02 00:00:00 Orders Only Doctor Unassigned, Tab [facility] 1.2840.114 350.1.13.10 4.2.7.2.686 [id number] [id number] [facility] 2021-09-27 00:00:00 2021-09-27 00:00:00 Orders Only Doctor Unassigned, Tab [facility] 1..840.114 350.1.13.10 4.2.7.2.686 [id number] [id number] [facility] 2021-09-24 15:50:00 2021-09-24 23:59:00 Outpatient BERNICE [facility] [id number] [facility] 2021-07-02 00:00:00 2021-07-02 00:00:00 (TEL) STLMLC STLMLC [id number] [facility] 2021-06-27 14:15:00 2021-06-27 14:15:00 Outpatient [facility]ICE [facility] [id number] [facility] 2021-06-27 14:15:00 2021-06-27 14:15:00 Outpatient [facility] [id number] [facility] 2021-06-27 13:39:57 2021-06-27 13:54:57 Office Visit Keanu [facility] 1..840.114 350.1.13.10 4.2.7.2.686 [id number] 198 [id number] [facility] 2021-06-26 15:45:00 2021-06-26 15:45:00 Outpatient [facility] [id number] [facility] 2021-06-26 15:45:00 2021-06-26 15:45:00 Outpatient Shira COLUNGA [facility] [id number] [facility] 2021-06-25 00:00:00 2021-06-25 00:00:00 Telephone [facility] 1..840.114 350.1.13.10 4.2.7.2.686 [id number] [facility] 2021-05-23 00:00:00 2021-05-23 00:00:00 [facility] 1.2.840.114 350.1.13.10 4.2.7.2.686 [id number] [facility] 2021-05-22 13:00:00 2021-05-22 23:59:00 [facility] 1.2.840.114 350.1.13.10 4.2.7.2.686 [id number] [facility] 2021-05-22 16:15:00 2021-05-22 14:56:21 Outpatient R KEANU [facility] [id number] [facility] 2021-05-22 16:15:00 2021-05-22 14:56:21 Outpatient R COLUNGA [facility] [id number] [facility] 2021-05-22 12:47:56 2021-05-22 14:56:21 [facility] 1.2.840.114 350.1.13.10 4.2.7.2.686 [id number] 198 [id number] [facility] 2021-05-22 00:00:00 2021-05-22 00:00:00 Orders Only Doctor Unassigned, Tab [facility] 1.2.840.114 350.1.13.10 4.2.7.2.686 [id number] 009 [id number] [facility] 2021-04-23 10:10:00 2021-04-23 10:10:00 Outpatient [facility] [id number] [facility] 2021-04-23 10:00:06 2021-04-23 10:00:17 Imm/Inj Visit Nurse, Hailey Pob Immunizatio johanne Resendiz [facility] 1.2840.114 350.1.13.10 4.2.7.2.686 [id number] [facility] 2021-04-02 14:40:00 2021-04-02 14:40:00 [id number] 2021-04-02 13:41:25 2021-04-02 13:41:44 Imm/Inj Visit Nurse, Hailey Dutta [facility]atio [facility] 1.2840.114 350.1.13.10 4.2.7.2.686 [id number] [facility] 2021-01-26 00:00:00 2021-01-26 00:00:00 Lacey Granados [facility] 1.2.840.114 350.1.13.58 9.2.7.2.686 [id number] [facility] 2021-01-26 00:00:00 2021-01-26 00:00:[address] [facility] 1.2.840.114 350.1.13.58 9.2.7.2.686 [id number] 2020-12-18 09:22:21 2020-12-18 12:11:17 Office Visit Jonas Barker [facility] 1 1.2.840.114 350.1.13.58 9.2.7.2.686 [id number] [facility] 2020-12-18 09:22:21 2020-12-18 12:11:17 Office Visit Jonas Barker [facility] 1 1.2.840.114 350.1.13.58 9.2.7.2.686 [id number] 2020-09-06 00:00:00 2020-09-06 00:00:00 (TEL) STLMLC STLMLC [id number] [facility] 2020-07-20 00:00:00 2020-07-20 00:00:00 (TEL) STLMLC STLMLC [id number] [facility] 2020-07-12 00:00:00 2020-07-12 00:00:00 (TEL) STLMLC STLMLC [id number] [facility] 2020-06-21 00:00:00 2020-06-21 00:00:00 Outpatient STLMLC STLMLC [id number] [facility] 2020-06-12 00:00:00 2020-06-12 00:00:00 Outpatient STLMLC STLMLC [id number] [facility] 2020-06-06 00:00:00 2020-06-06 00:00:00 Outpatient STLMLC STLMLC [id number] [facility] 2020-01-26 20:05:19 2020-01-26 21:04:00 Emergency [facility] 1.2840.114 350.1.13.10 4.2.7.2.686 [id number] 2020-01-26 20:05:19 2020-01-26 21:04:[facility] 1.2.840.114 350.1.13.10 4.2.7.2.686 [id number] [facility] 2020-01-26 00:00:00 2020-01-26 00:00:00 Orders Only Doctor Unassigned, Tab [facility] 1.2.840.114 350.1.13.10 4.2.7.2.686 [id number] [id number] 2020-01-26 00:00:00 2020-01-26 00:00:00 Orders Only Doctor Unassigned, Tab [facility] 1.2.840.114 350.1.13.10 4.2.7.2.686 [id number] [id number] [facility] 2020-01-20 08:00:00 2020-01-20 08:00:00 Outpatient [facility] [id number] [facility] 2020-01-20 00:00:00 2020-01-20 00:00:00 Orders Only Doctor Unassigned, Tab [facility] 1.2.840.114 350.1.13.10 4.2.7.2.686 [id number] [id number] [facility] 2020-01-20 00:00:00 2020-01-20 00:00:00 Orders Only Doctor Unassigned, Tab [facility] 1.2.840.114 350.1.13.10 4.2.7.2.686 [id number] [id number] Results Test Description Test Time Test Comments Results Result Co mments Source [facility] GLUCOSE (AUTOMATED)2023-08-30 13:51:48* Test Item Value Reference Range Interpretation [facility]me [facility] PO[facility] GLU (test code = 6582314187) 105 mg/dL 70-110 Lab Interpretation (test cod e = 40919-3) Normal [facility]2023-08-30 05:45:04* Test Item Value Reference Range Interpretation Comme [facility] HGB A1C (test code = 4548-4) 6.0 % 4.0-5.7 H SRIRAM (test code = SRIRAM) Reference RangesNormal: <5.7%Prediabetes: 5.7 - 6.4%Diabetes: > 6.5% Lab Interpretation (test code = 18400-7) Abnormal [facility] GLUCOSE (AUTOMATED)2023-08-30 02:23:04* Test Item Value Reference Range Interpretation Comme [facility] POCT GLU (test code = 1458284428) 101 mg/dL 70-110 Lab Interpretation (test cod e = 65479-5) Normal [facility] ABDOMEN PELVIS W [id number] 00:26:53PROCEDURE:CT ABDOMEN PELVIS W CONTRAST ORDERING PHYSICIAN: [...] lesions. Vazquez: (S/I) = seriesnumber / image numberUnCHRIST[facility]view[facility]ULMONARY ANGIOGRAM 2023-08-29 19:22:01CT SCAN OF [...] BONES/ CHEST WALL: No aggressive or acute abnormalities.[facility] CenterTROPONIN [id number] 17:47:43* Test Item Value Reference Range Interpretation Comme nts TROPONIN I (test code = 1448464668) 0.001 ng/mL <=0.034 SRIRAM (test code = [...] of biotin. Lab Interpretation (test code = 09299-2) Normal [facility] CenterMagnesium2024-01-26 17:36:59* Test Item Value Reference Range Interpretation Comme nts MAGNESIUM (test code = 8253003334) 1.7 mg/dL 1.7-2.4 Lab Interpretation (test cod e = 00016-4) Normal [facility] CenterCOMP. METABOLIC PANEL (80185)2023-08-29 17:36:38* Test Item Value Reference Range Interpretation Comme nts NA (test code = 3676351224) 139 mmol/L 135-145 K (test code = 8785532810) 4.1 mmol/L 3.5-5.0 CL (test code = 1090139672) 107 mmol/L 98-108 CO2 TOTAL (test code = 5462079871) 25 mmol/L 23-31 AGAP (test code = 8604560886) 7 2-16 BUN (test code = 5701842433) 13 mg/dL 7-23 GLUCOSE (test code = 8324377546) 114 mg/dL 70-110 H CREATININE (test code = 6239818762) 0.75 mg/dL 0.50-1.04 TOTAL BILI (test code = 7965024611) 0.6 mg/dL 0.1-1.1 CALCIUM (test code = 5255445210) 9.6 mg/dL 8.6-10.6 T PROTEIN (test code = 0525658849) 7.7 g/dL 6.3-8.2 ALBUMIN (test code = 8617549235) 4.1 g/dL 3.5-5.0 ALK PHOS (test code = 1205134721) 121 U/L 34-122 ALTv (test code = 1742-6) 16 U/L 5-35 AST(SGOT) (test code = 5701629969) 24 U/L 13-40 eGFR (test code = 34427-6) 94.7 mL/min/1.73m2 CKD-EPI eGFR (2020). Assuming creatinine has been stable day-to-day for at least three months, the eGFR indicates Category G1 (>= 90 mL/min/1.73 m2) Lab Interpretation (test code = 70510-1) Abnormal [facility] CenterLIPASE2024-01-26 17:36:22* Test Item Value Reference Range Interpretation Comme nts LIPASE (test code = 7274025658) 82 U/L 0-220 Lab Interpretation (test cod e = 28038-3) Normal [facility] CenterD-[id number] 17:34:40* Test Item Value Reference Range Interpretation Comments D-DIMER (test code = 2986676234) 0.96 See_Comment H [Automated message] The system [...] a diagnosis. Lab Interpretation (test code = 11430-8) Abnormal [facility] CenterXR [facility] 1 [id number] 17:17:59EXAM: XR CHEST 1 08/29/2023 10:59 AM HISTORY: 53 years-old Female with chest pain . TECHNIQUE: Portable AP view of the chest. COMPARISON: None. FINDINGS: Lines and tubes: None. Cardiomediastinal: The cardiomediastinal silhouette is normal in sizeaccounting for depth of inspiration. Lungs and pleura: Low lung volumes. Noacute infiltrate or effusion. Included osseous structures show no acute abnor mality.[facility] CenterCBC WITH [id number] 17:17:19* Test Item Value Reference Range Interpretation Comme nts WBC (test code = 6690-2) 6.09 See_Comment [Automated messa NTN [employer]] The system which generated this result transmitted reference range: 4.30 - 11.10 10*3/?L. The reference range was not used to interpret this result as normal/abnormal. RBC (test code = 789-8) 3.87 See_Comment L [Automated messa NTN [employer]] The system which generated this result transmitted [...] g/dL 31.6-35.1 L RDW-SD (test code = 65323-3) 52.5 fL 39.0-49.9 H RDW-CV (test code = 788-0) 17.5 % 12.0-15.5 H PLT (test code = 777-3) 344 See_Comment [Automated messa ge] The system which generated this result transmitted reference range: 166 - 358 10*3/?L. The reference range was not used to interpret this result as normal/abnormal. MPV (test code = 64247-7) 10.0 fL 9.5-12.9 NRBC/100 WBC (test code = 0076058316) 0.0 See_Comment [Automated Comunitae ssage] The system which generated this result transmitted reference range: 0.0 - 10.0 /100 WBCs. The reference range was not used to interpret this result as normal/abnormal. NRBC x10^3 (test code = 9841385648) See_Comment [Automated messa ge] The system which generated this result transmitted reference range: 10*3/?L. The reference range was not used to interpret this result as normal/abnormal. GRAN MAT (NEUT) % (test code = 770-8) 68.0 % IMM GRAN % (test code = 7054046772) 0.20 % LYMPH % (test code = 736-9) 23.8 % MONO % (test code = 5905-5) 6.1 % EOS % (test code = 713-8) 1.6 % BASO % (test code = 706-2) 0.3 % GRAN MAT x10^3(ANC) (test code = 8046352004) 4.14 10*3/uL 1.88-7.09 IMM GRAN x10^3 (test code = 0242904865) 0.00-0.06 LYMPH x10^3 (test code = 731-0) 1.45 10*3/uL 1.32-3.29 MONO x10^3 (test code = 742-7) 0.37 10*3/uL 0.33-0.92 EOS x10^3 (test code = 711-2) 0.10 10*3/uL 0.03-0.39 BASO x10^3 (test code = 704-7) 0.01-0.07 Lab Interpretation (test code = 83475-3) [facility] This is a pre-surgical type and screen. ONCE [id number] 13:38:39* Test Item Value Reference Range Interpretation Comme nts ABO & RH (test code = 20) O Positive Performed at [facility] Laboratory [facility] Blood [address] Free: [phone] No. [id number] IAT (test code = 1185) Negative Performed at [facility] Blood [place] [address]Toll Free: [phone] No. [id number] [facility] This is a [facility]-surgical type and screen. ONCE [id number] 13:38:39* Test Item Value Reference Range Interpretation Comme nts ABO & RH (test code = 20) O Positive Performed at [facility] Laboratory [facility] Blood [place] [address]Toll Free: [phone] No. [id number] IAT (test code = 1185) Negative Performed at [facility] Blood [place] [address]Toll Free: [phone] No. [id number] [facility] GLUCOSE (AUTOMATED)2022-09-23 12:53:02* Test Item Value Reference Range Interpretation Comme nts POCT GLU (test code = 3994266882) 105 mg/dL 70-110 Lab Interpretation (test cod e = 29716-7) Normal [facility] GLUCOSE (AUTOMATED)2022-09-23 12:53:02* Test Item Value Reference Range Interpretation Comme nts POCT GLU (test code = 7664985563) 105 mg/dL 70-110 Lab Interpretation (test cod e = 16074-5) [id number]* Test Item Value Reference Range Interpretation Comme nts TROPONIN I (test code = 3636335678) 0.003 ng/mL <=0.034 SRIRAM (test code = [...] of biotin. Lab Interpretation (test code = 14088-0) Normal [facility] GLUCOSE (AUTOMATED)2022-06-12 18:17:12* Test Item Value Reference Range Interpretation Comme nts POCT GLU (test code = 7225844873) 161 mg/dL 70-110 H Lab Interpretation (test cod e = 78102-8) Abnormal [facility] GLUCOSE (AUTOMATED)2022-06-12 08:00:25* Test Item Value Reference Range Interpretation Comme nts POCT GLU (test code = 1415931339) 122 mg/dL 70-110 H Lab Interpretation (test cod e = 99830-9) Abnormal [facility] GLUCOSE (AUTOMATED)2022-06-12 01:58:54* Test Item Value Reference Range Interpretation Comme nts POCT GLU (test code = 1515390918) 124 mg/dL 70-110 H Lab Interpretation (test cod e = 25173-5) Abnormal [facility] GLUCOSE (AUTOMATED)2022-06-11 22:59:46* Test Item Value Reference Range Interpretation Comme nts POCT GLU (test code = 2318997791) 115 mg/dL 70-110 H Lab Interpretation (test cod e = 63216-8) Abnormal [facility] GLUCOSE (AUTOMATED)2022-06-11 22:59:46* Test Item Value Reference Range Interpretation Comme nts POCT GLU (test code = 6076631349) 104 mg/dL 70-110 Lab Interpretation (test cod e = 41032-2) Normal [facility] GLUCOSE (AUTOMATED)2022-06-11 14:11:49* Test Item Value Reference Range Interpretation Comme nts POCT GLU (test code = 0407696094) 91 mg/dL 70-110 Lab Interpretation (test cod e = 26864-4) [id number] 09:07:50* Test Item Value Reference Range Interpretation Comme nts IRON (test code = 9379369098) 39 ug/dL 50-160 L TIBC (test code = 5749825484) 346 ug/dL 250-410 % FE SAT (test code = 9781686050) 11 % 20-50 L Lab Interpretation (test cod e = 67754-0) [facility] [id number] 08:27:06* Test Item Value Reference Range Interpretation Comme nts FERRITIN (test code = 9508992860) 7.5 ng/mL 11.0-264.0 L SRIRAM (test code = SRIRAM) Biotin has been reported to cause a negative bias, interpret results relative to patient's use of biotin. Lab Interpretation (test code = 86229-2) [facility]normal [facility] [id number] 08:01:40* Test Item Value Reference Range Interpretation Comme nts NT-proBNP (test code = 8158776015) 39 pg/mL See_Comment [Automated message] The system which generated this result transmitted reference range: <=125. The reference range was not used to interpret this result as normal/abnormal. SRIRAM (test code = SRIRAM) Biotin has been reported to cause a negative bias, interpret results relative to patient's use of biotin. Lab Interpretation (test code = 35040-1) [facility]22-[facility]-11 07:59:15* Test Item Value Reference Range Interpretation Comme nts POCT GLU (test code = 5319949976) 141 mg/dL 70-110 H Lab Interpretation (test cod e = 57173-0) [facility] 07:59:15* Test Item Value Reference Range Interpretation Comme nts MAGNESIUM (test code = 5929363344) 1.6 mg/dL 1.7-2.4 L Lab Interpretation (test cod e = 06474-4) [facility] 07:59:10* Test Item Value Reference Range Interpretation Comme nts PHOSPHORUS (test code = 4631623476) 2.6 mg/dL 2.5-5.0 Lab Interpretation (test cod e = 52965-6) [facility] [id number] 07:59:05* Test Item Value Reference Range Interpretation Comme nts URIC ACID (test code = 8734185075) 3.0 mg/dL 2.9-6.0 Lab Interpretation (test cod e = 73018-8) [facility] (NA, K, CL, CO2, GLUCOSE, BUN, CREATININE, CA)2022-06-10 18:34:39* Test Item Value Reference Range Interpretation Comme nts NA (test code = 7544918554) 139 mmol/L 135-145 K (test code = 2514401007) 4.2 mmol/L 3.5-5.0 CL (test code = 9214776364) 105 mmol/L 98-108 CO2 TOTAL (test code = 8405257637) 28 mmol/L 23-31 AGAP (test code = 4183018053) 2-16 BUN (test code = 8083442861) 15 mg/dL 7-23 GLUCOSE (test code = 8653536776) 106 mg/dL 70-110 CREATININE (test code = 1449416288) 0.75 mg/dL 0.50-1.04 CALCIUM (test code = 2026451133) 9.0 mg/dL 8.6-10.6 eGFR (test code = 1699218823) mL/min/1.73m2 SRIRAM (test code = SRIRAM) Association [...] or urine or abnormalities in imaging tests). [facility]53375[facility] (ALB,T.PRO,BILI T,BU/BC,ALT,AST,ALK PHOS)2022-06-10 18:34:39* Test Item Value Reference Range Interpretation Comme nts TOTAL BILI (test code = 0540108137) 0.4 mg/dL 0.1-1.1 BILI UNCON (test code = 0562240155) 0.2 mg/dL 0.1-1.1 BILI CONJ (test code = 4460401727) 0.0 mg/dL 0.0-0.3 T PROTEIN (test code = 5649879393) 6.9 g/dL 6.3-8.2 ALBUMIN (test code = 6492686002) 4.0 g/dL 3.5-5.0 ALK PHOS (test code = 7745509901) 139 U/L 34-122 H ALTv (test code = 1742-6) 23 U/L 5-35 AST(SGOT) (test code = 1442570862) 21 U/L 13-40 Lab Interpretation (test cod e = 16089-5) [facility]normal [facility] 18:34:39* Test Item Value Reference Range Interpretation Comme nts LIPASE (test code = 7386369698) 108 U/L 0-220 Lab Interpretation (test cod e = 38728-8) Normal [facility] WITH [id number] 18:27:20* Test Item Value Reference Range Interpretation Comme nts WBC (test code = 6690-2) See_Comment [Automated [employer] ge] The system which generated this result [...] 31.8 g/dL 31.6-35.1 RDW-SD (test code = 13688-3) 48.3 fL 39.0-49.9 RDW-CV (test code = 788-0) 15.4 % 12.0-15.5 PLT (test code = 777-3) See_Comment [Automated [employer] ge] The system which generated this result transmitted reference range: 166 - 358 10*3/?L. The reference range was not used to interpret this result as normal/abnormal. MPV (test code = 80984-2) 10.4 fL 9.5-12.9 NRBC/100 WBC (test code = 7801384826) See_Comment [Automated me ssage] The system which generated this result transmitted reference range: 0.0 - 10.0 /100 WBCs. The reference range was not used to interpret this result as normal/abnormal. NRBC x10^3 (test code = 1559158375) See_Comment [Automated me ssage] The system which generated this result transmitted reference range: 10*3/?L. The reference range was not used to interpret this result as normal/abnormal. GRAN MAT (NEUT) % (test code = 770-8) 62.1 % IMM GRAN % (test code = 1442749343) 0.50 % LYMPH % (test code = 736-9) 29.1 % MONO % (test code = 5905-5) 7.3 % EOS % (test code = 713-8) 0.6 % BASO % (test code = 706-2) 0.4 % GRAN MAT x10^3(ANC) (test code = 9315687095) 5.30 10*3/uL 1.88-7.09 IMM GRAN x10^3 (test code = 1416414999) 0.04 10*3/uL 0.00-0.06 LYMPH x10^3 (test code = 731-0) 2.48 10*3/uL 1.32-3.29 MONO x10^3 (test code = 742-7) 0.62 10*3/uL 0.33-0.92 EOS x10^3 (test code = 711-2) 0.05 10*3/uL 0.03-0.39 BASO x10^3 (test code = 704-7) 0.03 10*3/uL 0.01-0.07 [facility] Consult Notes Date/Time Note Provider Source 2023-08-30 13:19:15 Associated Order(s): CONSULT CARDIOLOGY [facility] Cardiology Consult PCP: Estefany Evans Date of Service: 08/30/2023 CHIEF COMPLAINT/reason for consult: Chest pain HISTORY OF PRESENT ILLNESS This is a 53 years old female with past med history of type 2 diabetes and morbid obesity. She came to [facility] for chest pain. It is left-sided chest pressure, not exertional, without radiation, associated with dyspnea, nausea and vomiting. It lasted a few hours. No aggravating or relieving factors. EKG showed no acute changes. Troponin x [address] scan of the chest showed no coronary artery calcification. PAST MEDICAL HISTORY Past Medical History: Diagnosis Date Allergic rhinitis Arthritis Bilateral knee pain 10/11/2015 Diabetes mellitus Past Surgical History: Procedure Laterality Date INJECTION THERAPEUTIC AGENT LOWER EXTREMITY (SHX) Left 01/14/2022 Surgeon: Kayla Lutz MD; Location: [facility] [place] JOINT SURGERY right shoulder MAJOR JOINT INJECTION Bilateral 09/23/2022 Surgeon: Kayla Lutz MD; Location: [facility] TUBAL LIGATION Family History Problem Relation Age of Onset No Significant Medical Problems Mother No Significant Medical Problems Father ALLERGIES Allergies Allergen Reactions Codeine Nausea and/or Vomiting MEDICATIONS No current facility-administered medications on file prior to encounter. Current Outpatient Medications on File Prior to Encounter Medication Sig Dispense Refill semaglutide (OZEMPIC) 1 mg/dose (4 mg/3 mL) PnIj inject 1.25 mg under the skin weekly. cyclobenzaprine 10 mg tablet Take 1 tablet by mouth in the morning and 1 tablet in the evening. gabapentin 100 mg capsule Take 8 capsules by mouth in the morning and 8 capsules at noon and 8 capsules in the evening. lidocaine-prilocaine 2.5-2.5 % cream APPLY TO AFFECTED AREA EVERY DAY NEEDED amitriptyline 150 mg tablet amitriptyline 150 mg tablet Take 1 tablet every day by oral route for 30 days. celecoxib 200 mg capsule Take 1 capsule by mouth in the morning and 1 capsule in the evening. loratadine 10 mg tablet Take 1 tablet by mouth in the morning. 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 Social Determinants of Health Food Insecurity: No Food Insecurity (06/13/2022) Hunger Vital Sign Worried About Running Out of Food in the Last Year: Never true Ran Out of Food in the Last Year: Never true Transportation Needs: No Transportation Needs (06/13/2022) PRAPARE - Transportation Lack of Transportation (Medical): No Lack of Transportation (Non-Medical): No REVIEW OF SYSTEMS At least 10 systems reviewed, negative except as mentioned in HPI PHYSICAL EXAMINATION Vitals: 08/29/23 2311 08/30/23 0306 08/30/23 0713 08/30/23 1141 BP: 125/64 105/57 115/63 129/73 BP Location: Right arm Patient Position: Supine Pulse: 79 100 87 93 Resp: 18 18 18 18 Temp: 36.2 ?C (97.1 ?F) 36.1 ?C (97 ?F) 36.6 ?C (97.8 ?F) 36.7 ?C (98 ?F) TempSrc: Temporal Artery SpO2: 100% 96% 93% 97% Weight: Height: Constitutional: alert and oriented x 3 (person, place and date/time); no apparent distress, obese ENT: normocephalic atraumatic, supple, no lymphadenopathy, no bruits, no JVD Lungs: clear to auscultation bilaterally Cardiovascular: S1, S2 normal, regular; no murmurs, rubs or gallops GI: soft; non-tender; non-distended; normoactive bowel sounds : not examined Musculoskeletal: Extremities: no clubbing, cyanosis, or edema Skin: no rashes Neuro: no focal deficits LABS - reviewed pertinent labs as below: CBC BMP PT/INR WBC (10*3/?L) Date Value 08/29/2023 6.09 NA (mmol/L) Date Value 08/29/2023 139 No results found for: "PT" PLT (10*3/?L) Date Value 08/29/2023 344 K (mmol/L) Date Value 08/29/2023 4.1 INR (no units) Date Value 06/10/2022 1.0 HGB (g/dL) Date Value 08/29/2023 9.7 (L) BUN (mg/dL) Date Value 08/29/2023 13 HCT (%) Date Value 08/29/2023 32.4 (L) CREATININE (mg/dL) Date Value 08/29/2023 0.75 LIPID PROFILE GLUCOSE (mg/dL) Date Value 08/29/2023 114 (H) No results found for: "CHOL" TSH No results found for: "LDL" No results found for: "TSH" CARDIAC ENZYMES No results found for: "HDL" CK (U/L) Date Value 06/11/2022 61 No results found for: "TRIG" LFTs CK-MB (ng/mL) Date Value 01/30/2015 0.64 AST(SGOT) (U/L) Date Value 08/29/2023 24 TROPONIN I (ng/mL) Date Value 08/30/2023 0.000 ALTv (U/L) Date Value 08/29/2023 16 No results found for: "BNP" IMAGING - reviewed, pertinent results as below: Chest x-ray-clear EKG: Normal sinus rhythm, nonspecific T wave abnormality ASSESSMENT/PLAN Principal Problem: Chest pain, unspecified type Active Problems: Other iron deficiency anemia Morbid obesity with body mass index of 40.0-49.9 Abnormal nuclear cardiac imaging test Chest pain-atypical chest pain. No acute EKG changes. Myocardial infarction has been ruled out by negative troponin. Her nuclear stress test from outside facility in December 2022 showed a small apical ischemia. Echocardiogram showed normal ejection fraction and wall motion. CT scan showed no coronary artery calcification. I recommend outpatient CT coronary angiography to assess CAD. Anemia-stable hemoglobin. Defer to primary team. Abnormal nuclear stress test-it is possible artifact versus ischemia. Recommend outpatient CT coronary angiography. Morbid obesity-recommend diet, exercise and weight loss. Thank you for allowing us to participate in the care of your patient. Please feel free to contact us for any questions or if we can be of further assistance. Bree Cervantes MD, [facility], [place] Community Engagement Specialist Division of Cardiovascular Medicine [facility] - Health History and Physical Notes Date/Time Note Provider Source 2023-08-29 20:24:02 MEDICINE [facility] ADMIT H&P Date of Service: 08/29/2023 CHIEF COMPLAINT: chest pain Subjective History of Present Illness 53 yo female with pmh of allergic rhinitis, DM who presents to the ED secondary to chest pain that started about morning. She describes her pain as left sided chest pain. Associated symptoms: dizziness, shortness of breath, and nausea and vomiting. Appears the pain in reproducible with palpitation or movement. ROS: +headache, PAST MEDICAL HISTORY Past Medical History: Diagnosis Date Allergic rhinitis Arthritis Bilateral knee pain 10/11/2015 Diabetes mellitus Past Surgical History: Procedure Laterality Date INJECTION THERAPEUTIC AGENT LOWER EXTREMITY (SHX) Left 01/14/2022 Surgeon: Kayla Lutz MD; Location: [facility] JOINT SURGERY right shoulder MAJOR JOINT INJECTION Bilateral 09/23/2022 Surgeon: Kayla Lutz MD; Location: [facility] TUBAL LIGATION Family History Problem Relation Age of Onset No Significant Medical Problems Mother No Significant Medical Problems Father ALLERGIES Allergies Allergen Reactions Codeine Nausea and/or Vomiting MEDICATIONS No current facility-administered medications on file prior to encounter. Current Outpatient Medications on File Prior to Encounter Medication Sig Dispense Refill semaglutide (OZEMPIC) 1 mg/dose (4 mg/3 mL) PnIj inject 1.25 mg under the skin weekly. cyclobenzaprine 10 mg tablet Take 1 tablet by mouth in the morning and 1 tablet in the evening. gabapentin 100 mg capsule Take 8 capsules by mouth in the morning and 8 capsules at noon and 8 capsules in the evening. lidocaine-prilocaine 2.5-2.5 % cream APPLY TO AFFECTED AREA EVERY DAY NEEDED amitriptyline 150 mg tablet amitriptyline 150 mg tablet Take 1 tablet every day by oral route for 30 days. celecoxib 200 mg capsule Take 1 capsule by mouth in the morning and 1 capsule in the evening. loratadine 10 mg tablet Take 1 tablet by mouth in the morning. 3 I attest that the foregoing medication list in the medical record is true, accurate and complete to the best of my knowledge. 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 HENT: Negative. Eyes: Negative. Respiratory: Positive for shortness of breath. Negative for apnea, cough, choking, chest tightness, wheezing and stridor. Breasts: Negative. Cardiovascular: Positive for chest pain. Negative for palpitations and leg swelling. Gastrointestinal: Positive for nausea. Negative for abdominal distention, abdominal pain, anal bleeding, blood in stool, constipation, diarrhea, rectal pain and vomiting. Genitourinary: Negative. Musculoskeletal: Negative. Skin: Negative. Neurological: Positive for dizziness and headaches. Negative for tremors, seizures, syncope, facial asymmetry, speech difficulty, weakness, light-headedness and numbness. Psychiatric/Behavioral: Negative. Endocrine: Endocrine negative Objective PHYSICAL EXAMINATION Vitals: 08/29/23 1731 08/29/23 1800 08/29/23 1929 08/29/231952 BP: 120/52 121/72 127/69 Pulse: 72 77 Resp: 17 14 18 Temp: 36.9 ?C (98.5 ?F) TempSrc: SpO2: 100% 100% 99% Weight: 102.1 kg (225 lb) 103.4 kg (228 lb) Height: 1.575 m (5' 2") Physical Exam Vitals and nursing note reviewed. Constitutional: General: She is not in acute distress. Appearance: Normal appearance. She is obese. She is not ill-appearing, toxic-appearing or diaphoretic. HENT: Head: Normocephalic and atraumatic. Right Ear: External ear normal. Left Ear: External ear normal. Nose: Nose normal. No congestion. Mouth/Throat: Mouth: Mucous membranes are moist. Pharynx: No oropharyngeal exudate or posterior oropharyngeal erythema. Eyes: General: No scleral icterus. Extraocular Movements: Extraocular movements intact. Conjunctiva/sclera: Conjunctivae normal. Pupils: Pupils are equal, round, and reactive to light. Cardiovascular: Rate and Rhythm: Normal rate and regular rhythm. Heart sounds: No murmur heard. No friction rub. No gallop. Pulmonary: Effort: Pulmonary effort is normal. No respiratory distress. Breath sounds: Normal breath sounds. No wheezing or rales. Chest: Chest wall: Tenderness present. Abdominal: General: Abdomen is flat. Bowel sounds are normal. There is no distension. Palpations: Abdomen is soft. Tenderness: There is no abdominal tenderness. There is no guarding. Musculoskeletal: General: Normal range of motion. Cervical back: Normal range of motion. Skin: General: Skin is warm and dry. Neurological: Mental Status: She is alert. Psychiatric: Mood and Affect: Mood normal. Behavior: Behavior normal. Thought Content: Thought content normal. Judgment: Judgment normal. LABS/IMAGING - reviewed EXAM: XR CHEST 1 VW 08/29/2023 10:59 AM HISTORY: 53 years-old Female with chest pain . TECHNIQUE: Portable AP view of the chest. COMPARISON: None. FINDINGS: Lines and tubes: None. Cardiomediastinal: The cardiomediastinal silhouette is normal in size accounting for depth of inspiration. Lungs and pleura: Low lung volumes. No acute infiltrate or effusion. Included osseous structures show no acute abnormality. IMPRESSION No acute cardiopulmonary abnormality. ------ CT SCAN OF THE CHEST WITH CONTRAST 08/29/2023 1:00 PM TECHNIQUE: Multidetector helical CT scan of the chest was performed following the intravenous administration of contrast. Coronal and sagittal reformats as well axial MIPs imaging were acquired. CLINICAL INFORMATION: PE suspected, intermediate prob, positive D-dimer COMPARISON: Chest x-ray obtained on the same date FINDINGS: CARDIOVASCULAR: The enhancement of the pulmonary artery is adequate. No pulmonary emboli to the level of subsegmental pulmonary arteries. Main pulmonary artery is normal in caliber. The thoracic aorta is normal in caliber. The cardiac size is normal. No pericardial effusion. There is no significant coronary artery calcification. LYMPH NODES: No thoracic adenopathy. MEDIASTINUM/ LOWER NECK: No mediastinal mass is seen.. No actionable thyroid nodule is present. BRONCHOPULMONARY/PLEURA: The central airways are patent. Patchy groundglass and linear opacities at the dependent portion of the lungs likely dependent and subsegmental atelectasis. Low lung volumes. Slight mosaic appearance to the lungs may represent an element of very mild air trapping. No suspicious nodules. . No pleural effusion. No pneumothorax. UPPER ABDOMEN: Tiny hiatal hernia. Gallbladder is surgically absent. Otherwise the visualized upper abdomen is unremarkable. BONES/ CHEST WALL: No aggressive or acute abnormalities. IMPRESSION No CT evidence of pulmonary embolus. ------ PROCEDURE:CT ABDOMEN PELVIS W CONTRAST ORDERING PHYSICIAN: MARYLOU DRIVER HISTORY: Abdominal pain TECHNIQUE: Helical CT of the abdomen and pelvis was performed using non-ionic intravenous contrast. CT scan was performed according to ALARA (as low as reasonably achievable) principle. TECHNICAL QUALITY: Adequate COMPARISON: CT abdomen/pelvis FINDINGS CT ABDOMEN/PELVIS: Lower thorax: The lung bases are clear. Liver: The liver is normal in size. There is no intrahepatic mass. Biliary tree: The patient is post cholecystectomy. There is no biliary ductal dilatation. Spleen: The spleen is normal in size. Pancreas: The pancreas is normal in size and enhances homogenously. Adrenal glands: The adrenal glands are normal in size and shape. Kidneys: There are bilateral symmetric nephrograms without hydronephrosis. Lymph nodes: Abdomen: There is no abdominal adenopathy. Pelvis: There is no pelvic adenopathy. Vasculature: The aorta is normal caliber. Peritoneum/mesentery/omentum: There is no free fluid or free air. GI tract: There is no bowel obstruction. The appendix is within normal limits. Pelvic urogenital structures:There is residual contrast in the bladder. The uterus is present. There is no adnexal mass Body wall: There are no aggressive osseous lesions. Vazquez: (S/I) = series number / image number IMPRESSION No acute abdominal or pelvic process No bowel obstruction ------ CT SCAN OF THE CHEST WITH CONTRAST 08/29/2023 1:00 PM TECHNIQUE: Multidetector helical CT scan of the chest was performed following the intravenous administration of contrast. Coronal and sagittal reformats as well axial MIPs imaging were acquired. CLINICAL INFORMATION: PE suspected, intermediate prob, positive D-dimer COMPARISON: Chest x-ray obtained on the same date FINDINGS: CARDIOVASCULAR: The enhancement of the pulmonary artery is adequate. No pulmonary emboli to the level of subsegmental pulmonary arteries. Main pulmonary artery is normal in caliber. The thoracic aorta is normal in caliber. The cardiac size is normal. No pericardial effusion. There is no significant coronary artery calcification. LYMPH NODES: No thoracic adenopathy. MEDIASTINUM/ LOWER NECK: No mediastinal mass is seen.. No actionable thyroid nodule is present. BRONCHOPULMONARY/PLEURA: The central airways are patent. Patchy groundglass and linear opacities at the dependent portion of the lungs likely dependent and subsegmental atelectasis. Low lung volumes. Slight mosaic appearance to the lungs may represent an element of very mild air trapping. No suspicious nodules. . No pleural effusion. No pneumothorax. UPPER ABDOMEN: Tiny hiatal hernia. Gallbladder is surgically absent. Otherwise the visualized upper abdomen is unremarkable. BONES/ CHEST WALL: No aggressive or acute abnormalities. IMPRESSION No CT evidence of pulmonary embolus. EKG: sinus rhythm Assessment & Plan Jazmín Rowell is a 53 year old female with PMH as listed above, admitted to the hospital with: 1. Chest pain atypical: So, far EKG and troponin are negative for an acute myocardial infarction. Noted to have muscular tenderness on examination -- Will order pain control, oxygen, nitroglycerin prn, and aspirin. -- Will continue to trend the troponin -- Echocardiogram is pending -- Flexeril has been added -- Cardiology has been consulted. 2. Diabetes: -- Will start insulin sliding scale as needed Prophylaxis: DVT- enoxaparin Code Status: Full Code [facility] EMERGENCY PHYSICIAN STAFF [facility] Notes Date/Time Note Provider Source 2023-09-02 12:28:06 TRANSITIONAL CARE MANAGEMENT ASSESSMENT 09/02/2023 Jazmín Rowell [id number] Jazmín Rowell is a 53 year old /White female was admitted on 08/29/23 to [facility], [facility] MED SURG. She was discharged on 08/30/23 with discharge disposition of HR- Routine Discharge. Admitting Physician: Annamaria Barker Discharge Diagnosis: Chest pain, unspecified type Linked Episodes Type: Episode: Status: Noted: Resolved: Last update: Updated by: TRANSITION OF CARE TCM Active 08/30/2023 09/02/2023 12:27 PM Veronika Espinoza, RN Comments: TCM [id number] outreach documentation: Discharge Assessment Chart Assessed: 09/02/23 TCM Outreach Completed: 09/02/23 Care Transitions Nurse JEAN PIERRE made f/u call to patient post-discharge. No answer, call went to voicemail. CM left discreet message with CM's call back information. DEVIN Salazar, RN, CCRN Coating Machine Feeder, Transitions of Care [email or web address] Appointments: [facility] Veronika Espinoza RN [facility] 2023-09-01 14:35:55 Care Transitions Nurse CM made f/u call to patient post-discharge. No answer, call went to voicemail. CM left discreet message with CM's call back information. CM will try again at a later time. DEVIN Salazar, RN, CCRN Coating Machine Feeder, Transitions of Care [email or web address] 2023-08-30 18:10:02 The patient was seen in the hospital for chest pain. Previously mildly abnormal nuclear stress test. Will proceed with CT coronary angiography to assess CAD. [facility] 2023-08-30 13:55:38 Problem: Discharge Planning Goal: Adequate for discharge 08/30/2023 1355 by uJlisa Parikh RN Outcome: Adequate for discharge Problem: Discharge Planning Goal: Adequate for discharge 08/30/2023 1355 by Julisa Parikh RN Outcome: Resolved Problem: Discharge Planning Goal: Effective communication 08/30/2023 1355 by Julisa Parikh RN Outcome: Resolved Problem: Discharge Planning Goal: Effective communication 08/30/2023 1355 by Julisa Parikh RN Outcome: Adequate for discharge Problem: Pain Goal: Control of pain at or below patient's documented comfort goal 08/30/2023 1355 by Julisa Parikh RN Outcome: Resolved Problem: Pain Goal: Control of pain at or below patient's documented comfort goal 08/30/2023 1355 by Julisa Parikh RN Outcome: Adequate for discharge Problem: Pain Goal: Reduction in pain sensation 08/30/2023 1355 by Julisa Parikh RN Outcome: Resolved Problem: Pain Goal: Reduction in pain sensation 08/30/2023 1355 by Julisa Parikh RN Outcome: Adequate for discharge Problem: Venous Thromboembolism, (actual or risk of) Goal: Absence of venous thromboembolism (Risk) 08/30/2023 1355 by Julisa Parikh RN Outcome: Resolved Problem: Venous Thromboembolism, (actual or risk of) Goal: Absence of venous thromboembolism (Risk) 08/30/2023 1355 by Julisa Parikh RN Outcome: Adequate for discharge Problem: Falls, Risk of Goal: Absence of falls 08/30/2023 1355 by Julisa Parikh RN Outcome: Resolved Problem: Falls, Risk of Goal: Absence of falls 08/30/2023 1355 by Julisa Parikh RN Outcome: Adequate for discharge [facility] 2023-08-30 01:54:12 Problem: Discharge Planning Goal: Adequate for discharge Outcome: Progressing as expected Goal: Effective communication Outcome: Progressing as expected Problem: Pain Goal: Control of pain at or below patient's documented comfort goal Outcome: Progressing as expected Goal: Reduction in pain sensation Outcome: Progressing as expected Problem: Venous Thromboembolism, (actual or risk of) Goal: Absence of venous thromboembolism (Risk) Outcome: Progressing as expected Problem: Falls, Risk of Goal: Absence of falls Outcome: Progressing as expected IFER Rodriguez RN [facility] 2023-08-29 19:15:25 Report given to Samantha KIDD in M/S. IFER James RN [facility] 2023-08-29 15:10:00 Patient given ice for po challenge, patient actively vomiting immediately after challenge. [facility] Allyn Berman RN [facility] 2023-08-29 13:50:00 Patient po challenge with ice [facility] 2023-08-29 10:51:43 Report received from BERNABE James 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 States N/V started last night. AL HYGIENE INSTRUCTOR Lillie Pathak RN [facility] 2023-08-29 10:17:00 AdmissionCare Guideline: Vomiting - OBS, Observation Based on the indications selected for the patient, the bed status of Admit to Observation was determined to be MET The following indications were selected as present at the time of evaluation of the patient: - Vomiting that persists despite emergency department care AdmissionCare documentation entered by: Marylou Driver [facility], 27th edition, Copyright ? 2022 [facility], [facility] All Rights Reserved. [id number] [facility]
[2024-03-29] MEDS ORDERED: ONDANSETRON 4 MG/2 ML VIAL ONE (19:06)
[2024-03-29] MEDS ORDERED: ACETAMINOPHEN 500 MG TAB ONE (19:07)
[2024-03-29] MEDS ORDERED: NA CHLORIDE 0.9% 1,000 ML ONE (19:07)
[2024-03-29 19:27] LABS: Absolute Lymphocytes (CBC) 0.5 K/uL (0.7-4.9); Absolute Monocytes 0.4 K/uL (0.1-1.3); Absolute Neutrophil 7.6 K/uL (1.8-8.0); Basophils % 0.1 % (0-1.3); Hematocrit 34.8 % (36.0-45.0); Hemoglobin 11.4 g/dL (12.0-15.0); MCH 28.2 pg (27.0-35.0); MCHC 32.7 g/dL (32.0-36.0); MCV 86.2 fL (80-100); MPV 7.8 fL (7.6-11.3); Monocytes % 4.3 % (3.3-12.3); Neutrophils % 89.6 % (41.7-73.7); Platelets 263 thou/uL (152-406); RBC Red Blood Cell Count 4.04 M/uL (3.86-4.86); Red Cell Distribution Width 16.5 % (12.1-15.2)
[2024-03-29 19:30] LABS: PT Prothrombin Time 12.1 SECONDS (9.4-12.5); PTT, Activated Partial Thromb 30.1 SECONDS (24.3-36.9); Protime INR 1.08
[2024-03-29 19:41] LABS: SARS-CoV-2 Antigen CONTROL BLUE LINE VIS/BG OK; SARS-CoV-2 Antigen Rapid Res Negative (Negative)
[2024-03-29 19:41] LABS: ALT/SGPT 17 U/L (13-56); Albumin 3.4 g/dL (3.4-5.0); Albumin/Globulin Ratio 0.8 (1.1-1.8); Alkaline Phosphatase 119 U/L (45-117); Anion Gap 9.8 mEq/L (5.0-15.0); BUN Blood Urea Nitrogen 12 mg/dL (7-18); Bicarbonate 27 mEq/L (21-32); Bilirubin Total 0.6 mg/dL (0.2-1.0); Globulin 4.5 g/dL (2.3-3.5); Glomerular Filtration Rate 72 ml/min (=/>90); Glucose Level 122 mg/dL (74-106); Potassium 3.8 mEq/L (3.5-5.1); Protein, Total 7.9 g/dL (6.4-8.2); Sodium Level 136 mEq/L (136-145); Troponin High Sensitivity 5.2 pg/mL (<58.9)
[2024-03-29 19:42] LABS: AST/SGOT < 10 U/L (15-37)
--- NOTE | 2024-03-29 19:57 | RAD REPORT ---
EXAM DESCRIPTION: Sheri Single View03/29/2024 7:32 pm CLINICAL HISTORY: Chest pain COMPARISON: September 2023 FINDINGS: The patient is in a poor degree of inspiration. The lungs appear clear of acute infiltrate. The heart is normal size
[2024-03-29 21:40] LABS: Specific Gravity 1.009 (1.005-1.030); Sqamous Epithelial <5 /HPF (None Seen); Urine Bacteria <20 /HPF (<20); Urine Bilirubin NEGATIVE (Negative); Urine Blood 1+ (Negative); Urine Clarity Turbid (Clear); Urine Color Colorless (Yellow); Urine Culture Reflex Order NOT NEEDED; Urine Glucose 3+ (Negative); Urine Ketones TRACE (Negative); Urine Microscopic Reflex YN ORDER UMIC; Urine Mucus Slight /HPF (None Seen); Urine Nitrite NEGATIVE (Negative); Urine Protein NEGATIVE (Negative); Urine RBC <5 /HPF (None Seen); Urine Urobilinogen Normal (Normal); Urine WBC <5 /HPF (<5); Urine pH 6.5 (5.0-7.0)
[2024-03-29] MEDS ORDERED: KETOROLAC 30 MG/ML INJ ONE (21:56)
--- NOTE | 2024-03-29 21:56 | RAD REPORT ---
EXAM DESCRIPTION: CT - Abdomen Pelvis W Contrast - 03/29/2024 9:28 pm CLINICAL HISTORY: Abdominal pain COMPARISON: September 2023 TECHNIQUE: Computed axial tomography of the abdomen pelvis was obtained. 100 cc Isovue-300 was admin istered intravenously. Oral contrast was not requested which limits evaluation of bowel and appendix All CT scans are performed using dose optimization technique as appropriate and may include automated exposure control or mA/KV adjustment according to patient size. FINDINGS: Cholecystectomy A 3 millimeter calculus right kidney. No hydronephrosis. Small bilateral renal cysts. The spleen, pancreas and adrenals unremarkable Normal appendix. No evidence diverticulitis. No adnexal mass Bilateral hip arthroplasties. Moderate supraumbilical hernia containing fat. Tiny umbilical hernia. 9 millimeter lipoma third portion duodenum IMPRESSION: No acute abnormality is displayed.
--- NOTE | 2024-03-29 22:43 | EDPHYS ---
Physician Documentation [facility] Name: Jazmín Perez Age: 53 yrs Sex: Female : 1970 Arrival Date: 03/29/2024 Time: 18:04 Bed 8 Private MD: ED Physician Hamilton Castillo HPI: 03/29 18:44 This 53 yrs old Female presents to ER via Wheelchair with complaints of kb Weakness. 18:44 pt is a 53 year old female who presents for nausea, vomiting, diarrhea, chills, kb weakness, chest pain and shortness of breath. States symptoms initially started 3 days ago, but got worse about an hour ago. Denies cough, congestion, sore throat. . 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 - Infectious Disease History:: Denies. - Social history:: Smoking status: Patient denies any tobacco usage or history of. ROS: 18:38 Constitutional: As per HPI kb Exam: 18:38 Constitutional: This is a well developed, well nourished patient who is awake, alert, kb and in no acute distress. Head/Face: Normocephalic, atraumatic. ENT: Moist Mucous membranes Cardiovascular: Regular rate Respiratory: Respirations even and unlabored. No increased work of breathing. Talking in full sentences Abdomen/GI: Soft, non-tender. No distention Skin: Warm, dry with normal turgor. Normal color. MS/ Extremity: Pulses equal, no cyanosis. Neurovascular intact. Full, normal range of motion. Neuro: Awake and alert, GCS 15, oriented to person, place, time, and situation. Moves all extremities. Normal gait. 20:17 ECG was reviewed by the Attending Physician. kb Vital Signs: 18:26 BP 136 / 75; Pulse 125; Resp 18; Temp 100.6; Pulse Ox 98% on R/A; Weight 101.15 kg; iw Height 5 ft. 2 in. ; Pain 9/10; 19:45 BP 140 / 73; Pulse 113; Resp 16; Pulse Ox 94% ; pc2 21:54 BP 127 / 77; Pulse 107; Resp 19; Temp 98; Pulse Ox 96% on R/A; pc2 22:43 BP 121 / 69; Pulse 105; Resp 16; Pulse Ox 95% on R/A; pc2 18:26 Body Mass Index 40.79 (101.15 kg, 157.48 cm) iw 18:26 Pain Scale: Adult iw MDM: 18:08 Patient medically screened. kb 18:44 Data reviewed: vital signs, nurses notes. kb 22:43 Counseling: I had a detailed discussion with the patient and/or guardian regarding the kb historical points, exam findings, and any diagnostic results supporting the discharge/admit diagnosis, lab results, radiology results, the need for outpatient follow up, a family practitioner, to return to the emergency department if symptoms worsen or persist or if there are any questions or concerns that arise at home. ED course: DD: weakness, abnormal electrolytes, viral syndrome, abnormal ekg, MA. 03/29 18:28 Order name: CBC with Diff; Complete Time: 19:38 kb 03/29 18:28 Order name: CMP; Complete Time: 19:45 kb 03/29 18:28 Order name: Lactate w/ 2H reflex if indic.; Complete Time: 19:45 kb 03/29 18:28 Order name: Protime (+inr); Complete Time: 19:38 kb 03/29 18:28 Order name: Ptt, Activated; Complete Time: 19:38 kb 03/29 18:28 Order name: Urinalysis w/ reflexes; Complete Time: 21:41 kb 03/29 18:28 Order name: Flu; Complete Time: 19:52 kb 03/29 18:28 Order name: SARS-COV-2 Antigen Rapid; Complete Time: 19:45 kb 03/29 18:28 Order name: Troponin High Sensitivity; Complete Time: 19:45 kb 03/29 21:57 Order name: Troponin High Sensitivity; Complete Time: 22:41 kb 03/29 18:28 Order name: Chest Single View XRAY; Complete Time: 19:58 kb 03/29 19:59 Order name: CT Abd/Pelvis - IV Contrast Only; Complete Time: 21:56 kb 03/29 18:28 Order name: EKG; Complete Time: 18:29 kb 03/29 18:28 Order name: Cardiac monitoring; Complete Time: 19:55 kb 03/29 18:28 Order name: EKG - Nurse/Tech; Complete Time: 19:55 kb 03/29 18:28 Order name: IV Saline Lock - Large Bore; Complete Time: 19:24 kb 03/29 18:28 Order name: Labs collected and sent; Complete Time: 19:24 kb 03/29 18:28 Order name: O2 Per Protocol; Complete Time: 19:24 kb 03/29 18:28 Order name: O2 Sat Monitoring; Complete Time: 19:24 kb 03/29 18:28 Order name: Vital Signs; Complete Time: 19:24 kb EC:17 Rate is 113 beats/min. Rhythm is regular. QRS [place] is Normal. CO interval is normal at kb 136 msec. QRS interval is normal at 94 msec. QT interval is normal at 488 msec. Administered Medications: 19:15 Drug: NS 0.9% IV 1000 ml IV at 1000 ml once Route: IV; Rate: 1000 ml; Site: right kj2 forearm; 19:45 Follow up: Response: No adverse reaction; IV Status: Completed infusion; IV Intake: pc2 1000ml 19:20 Drug: Acetaminophen PO 1000 mg PO once Route: PO; kj2 20:10 Follow up: Response: No adverse reaction; Pain is decreased kj2 19:23 Drug: Ondansetron IVP 4 mg IVP once; over 2 minutes Route: IVP; Site: right forearm; kj2 20:00 Follow up: Response: No adverse reaction kj2 22:00 Drug: Ketorolac IVP 15 mg IVP once Route: IVP; Site: right antecubital; kj2 22:45 Follow up: Response: No adverse reaction; Marked relief of symptoms pc2 Disposition Summary: 03/29/24 22:42 Discharge Ordered Notes: Location: Home kb Condition: Stable kb Diagnosis - Viral infection, unspecified kb Followup: kb - With: Emergency Department - When: As needed - Reason: Worsening of condition Followup: kb - With: Private Physician - When: 2 - 3 days - Reason: Recheck today's complaints, Continuance of care, Re-evaluation by your physician Discharge Instructions: - Discharge Summary Sheet kb - Viral Illness, Adult kb Forms: - Medication Reconciliation Form kb - Antibiotic Education kb - Prescription Opioid Use kb - Patient Portal Instructions kb - Leadership Thank You Letter kb Prescriptions: - Zofran 4 mg Oral tablet - take 1 tablet ORAL route every 8 hours As needed; 12 tablet; Refills: 0, kb Product Selection Permitted Signatures: Dispatcher [employer] EDNadine Jimenez, FOURDRINIER OPERATOR-C FOURDRINIER OPERATOR-Ckb Marlen Gutierrez, RN RN iw Dixie Joaquin, BERNABE RN kj2 Lianne Loja RN pc2 Corrections: (The following items were deleted from the chart) 18:29 18:29 BLOOD CULTURE*+BA.LAB.BRZ ordered. EDMS EDMS 18:29 18:29 CBC+H.LAB.BRZ ordered. EDMS EDMS 18:29 18:29 COMPREHENSIVE METABOLIC PANEL+C.LAB.BRZ ordered. EDMS EDMS 18:29 18:29 LACTATE+C.LAB.BRZ ordered. EDMS EDMS 18:29 18:29 PROTIME (+INR)+COAG.LAB.BRZ ordered. EDMS EDMS 18:29 18:29 PTT, ACTIVATED+COAG.LAB.BRZ ordered. EDMS EDMS 18:29 18:29 Urinalysis+U.LAB.BRZ ordered. EDMS EDMS 18:29 18:29 Influenza Screen (A \T\ B)+BA.LAB.BRZ ordered. EDMS EDMS 18:29 18:29 SARS-COV-2 Antigen Rapid+I.LAB.BRZ ordered. EDMS EDMS 18:29 18:29 Troponin High Sensitivity+C.LAB.BRZ ordered. EDMS EDMS 19:56 18:28 Accucheck ordered. kb pc2
--- NOTE | 2024-03-29 22:43 | ER ---
Nurse's Notes [facility] Name: Jazmín Perez Age: 53 yrs Sex: Female : 1970 Arrival Date: 03/29/2024 Time: 18:04 Bed 8 Private MD: Diagnosis: Viral infection, unspecified Presentation: 03/29 18:26 Chief complaint: Patient states: fever, chills, vomiting, weakness all day and chest iw pain an hour ago. Coronavirus screen: Client presents with at least one sign or symptom that may indicate coronavirus-19. Ebola Screen: No symptoms or risks identified at this time. Risk Assessment: Do you want to hurt yourself or someone else? Patient reports no desire to harm self or others. 18:26 Method Of Arrival: Wheelchair iw 18:27 Initial Sepsis Screen: Does the patient meet any 2 criteria? HR > 90 bpm. Does the iw patient have a suspected source of infection? No. Patient's initial sepsis screen is negative. Onset of symptoms was March 29, 2024. 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 - Infectious Disease History:: Denies. - Social history:: Smoking status: Patient denies any tobacco usage or history of. Screenin:51 [facility] ED Fall Risk Assessment (Adult) History of falling in the last 3 months, pc2 including since admission No falls in past 3 months (0 pts) Confusion or Disorientation No (0 pts) Intoxicated or Sedated No (0 pts) Impaired Gait No (0 pts) Mobility Assist Device Used No (0 pt) Altered Elimination No (0 pt) Score/Fall Risk Level 0 - 2 = Low Risk Oriented to surroundings, Maintained a safe environment, Hourly rounding (assess needs \T\ fall precautionary measures) done. Abuse screen: Denies threats or abuse. Denies injuries from another. Nutritional screening: No deficits noted. Tuberculosis screening: No symptoms or risk factors identified. Assessment: 19:15 General: Appears in no apparent distress. uncomfortable, Behavior is cooperative. kj2 19:15 Pain: Complains of pain in headache Pain currently is 8 out of 10 on a pain scale. kj2 Neuro: Level of Consciousness is awake, alert, obeys commands, Oriented to person, place, time, situation. Cardiovascular: Patient's skin is warm and dry. Respiratory: Airway is patent Respiratory effort is even, unlabored. GI: Reports nausea. : No deficits noted. Vital Signs: 18:26 BP 136 / 75; Pulse 125; Resp 18; Temp 100.6; Pulse Ox 98% on R/A; Weight 101.15 kg; iw Height 5 ft. 2 in. ; Pain 9/10; 19:45 BP 140 / 73; Pulse 113; Resp 16; Pulse Ox 94% ; pc2 21:54 BP 127 / 77; Pulse 107; Resp 19; Temp 98; Pulse Ox 96% on R/A; pc2 22:43 BP 121 / 69; Pulse 105; Resp 16; Pulse Ox 95% on R/A; pc2 18:26 Body Mass Index 40.79 (101.15 kg, 157.48 cm) iw 18:26 Pain Scale: Adult iw ED Course: 18:05 Patient arrived in ED. mr 18:08 Nadine Beatty, [facility] kb 18:08 Hamilton Castillo MD is Attending Physician. kb 18:27 Triage completed. iw 18:28 Arm band placed on. iw 18:57 ERIC SAM, RN is Primary Nurse. dd2 19:10 Initial lab(s) drawn, by me, sent to lab. First set of blood cultures drawn by me. dd2 19:15 Inserted saline lock: 20 gauge in right antecubital area, using aseptic technique. dd2 Blood collected. Flushed with 10 mL NS. 19:34 Chest Single View XRAY In Process Unspecified. EDMS 19:55 Patient has correct armband on for positive identification. Bed in low position. Call pc2 light in reach. Side rails up X2. Provided Education on: POC and time frame. Client placed on continuous cardiac and pulse oximetry monitoring. NIBP monitoring applied. 19:56 No provider procedures requiring assistance completed. pc2 21:18 Urinalysis w/ reflexes Sent. pc2 21:[address] pc2 21:29 CT Abd/Pelvis - IV Contrast Only In Process Unspecified. EDMS 22:12 Troponin High Sensitivity Sent. pc2 22:12 Repeat lab(s) drawn. by me, sent to lab. Troponin. pc2 22:45 IV discontinued, intact, bleeding controlled, No redness/swelling at site. Pressure pc2 dressing applied. Administered Medications: 19:15 Drug: NS 0.9% IV 1000 ml IV at 1000 ml once Route: IV; Rate: 1000 ml; Site: right kj2 forearm; 19:45 Follow up: Response: No adverse reaction; IV Status: Completed infusion; IV Intake: pc2 1000ml 19:20 Drug: Acetaminophen PO 1000 mg PO once Route: PO; kj2 20:10 Follow up: Response: No adverse reaction; Pain is decreased kj2 19:23 Drug: Ondansetron IVP 4 mg IVP once; over 2 minutes Route: IVP; Site: right forearm; kj2 20:00 Follow up: Response: No adverse reaction kj2 22:00 Drug: Ketorolac IVP 15 mg IVP once Route: IVP; Site: right antecubital; kj2 22:45 Follow up: Response: No adverse reaction; Marked relief of symptoms pc2 Medication: 19:56 VIS not applicable for this client. pc2 Intake: 19:45 IV: 1000ml; Total: 1000ml. pc2 Outcome: 22:42 Discharge ordered by . kb 22:44 Discharged to home ambulatory, pc2 22:44 Condition: stable 22:44 Discharge instructions given to patient, Instructed on discharge instructions, follow up and referral plans. medication usage, Demonstrated understanding of instructions, follow-up care, medications, Prescriptions given X 1, 22:54 Patient left the ED. pc2 Signatures: Dispatcher [employer] EDMS Nadine Beatty, BUILDING PRESSURE WASHER-C BUILDING PRESSURE WASHER-Ckb Lacey Dowd, Reg Reg mr Marlen Gutierrez, RN BERNABE iw Lianne Loja, RN RN pc2 Dixie Joaquin RN RN kj2 ERIC SAM RN RN dd2
[2024-03-29 23:47] VITALS: TEMP 98
[2024-03-29 23:49] VITALS: BP 121/69; O2SAT 95
--- NOTE | 2024-03-30 12:39 | EKG ---
Test Date: 2024-03-29 Test Time: 20:00:15 Circle Edger: GENESIS MEASUREMENT RESULTS: Intervals: Rate: 113 SC: 136 QRSD: 94 QT: 356 QTc: 488 [place]: P: 36 SC: 136 QRS: 45 T: 69 INTERPRETIVE STATEMENTS: Sinus tachycardia Otherwise normal ECG Compared to ECG 10/05/2023 23:30:59 Sinus rhythm no longer present T-wave abnormality no longer present Electronically Signed On 03-30-24 12:38:08 CDT by Sonu Duran
== END 2024-03-29 22:54 | disposition home or self-care (01) ==
LOC: ER 18:04
DX: B34.9 Viral infection, unspecified (principal); Z11.52 Encounter for screening for COVID-19; F41.9 Anxiety disorder, unspecified; E11.9 Type 2 diabetes mellitus without complications
CPT/HCPCS: 93005; 85025; 81001; 36415; 85610; 83605; 85730; 84484 ×2; 80053; 87804 ×2; 74177; 71045; 99284; 87811; Q9967; J2405; J7030; 87040

== ENCOUNTER 2024-05-18 03:55 | Inpatient (IN) | payer OTHER ==
--- OUTSIDE RECORDS SUMMARY | 2024-05-18 04:02 | XMS REPORT | Continuity of Care Document ---
Author Name Unknown Address 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 Role Phone ESTEFANY EVANS Primary Care Physician Unavaila Estefany Bergman Attending Clinician Unavailable KAYLA LUTZ Attending Clinician UnavailLACEY Guzman Attending Clinician Unava ilBREE Pelaez Attending Clinician Unavailable Doctor Unassigned, [place] Attending Clinician U michaela Espinoza RN, Veronika Serra Attending Clinician Unavail able ANNAMARIA BARKER Attending Clinician Unavailable Yony GOMEZ, Marylou Sanabria Attending Clinician [phone] Annamaria Barker DO Attending Clinician [phone] Billy WOODSON, Bree Attending Clinician [phone] Kayla Lutz MD Attending Clinician [phone] Bernice Amaya Attending Clinician [phone] PEDRO LUIS RUSHING Attending Clinician Unavailable PEDRO LUIS RUSHING Attending Clinician Unavailable Pob, [facility] Attending Clinician UnavailBERNICE Conrad Attending Clinician Unavailable Chelo Cornejo RN Attending Clinician Unavailab carmelo Clemons MD, Brodie Evangelista Attending Clinician [phone] FILIPE WIGGINS Attending Clinician Unavailable HEMA CLAYTONALMA PALM Attending Clinician Unavail able Bharath Padgett CRNA Attending Clinician [phone] Oliver Hunt MD Attending Clinician [phone] Only, Adc Test Attending Clinician Unavailable RENÉE AGUILERA Attending Clinician Unavail able RENÉE AGUILERA Attending Clinician Unavail able ANDREW RESENDIZ Attending Clinician Unavail able Nurse, [facility] Pob Immunization Attending Clinician Unavailable Andrew Resendiz DO Attending Clinician [phone] Jonas Barker MD Attending Clinician Calin Lazar DO Attending Clinician [phone] KAYLA LUTZ Admitting Clinician UnavailANNAMARIA Amado Admitting Clinician Unavailable Annamaria Barker DO Admitting Clinician [phone] Kayla Lutz MD Admitting Clinician [phone] BERNICE COLUNGA Admitting Clinician Unavailable Payers Payer Name Policy Type Policy Number Effective Date Expirati on Date Source [facility] STAR PLUS [id number] 2021 00:00:00 [facility] [id number] 2015 00:00:00 [facility]ETTER [facility] [id number] 2020 00:00:00 [facility] DUAL COMP CHOICE PPO DSNP [id number] 2023 00:00:00 Ambetter from [facility] [id number] [facility] HIM AMBETTER FROM [facility] [id number] 2019 00:00:00 Ambetter from [facility] [id number] [facility] Ambetter from [facility] [id number] [facility] Ambetter from [facility] [id number] [facility] Problems Condition Name Condition Details Condition Category Status Onset Date Resolution Date Last Treatment Date Treating Clinician Comments Source Abnormal nuclear cardiac imaging test Abnormal nuclear cardiac imaging test Disease Active 08-30 00:00: 00 [facility] Chest pain, unspecifie d type Chest pain, unspecifie d type Disease Active 08-29 00:00: 00 [facility] Right lower quadrant abdominal pain Right lower quadrant abdominal pain Disease Active 2021-08 00:00: 00 [facility] Morbid obesity with body mass index of 40.0-49.9 Morbid obesity with body mass index of 40.0-49.9 Disease Active 01-15 00:00: 00 [facility] Arthritis of left hip Arthritis of left hip Disease Active 01-04 00:00: 00 Overview: Formattin g of this note might be different from the original. 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 (nsaid) intermediate (current) use of non-steroi jaiden anti-infla mmatories (nsaid) Disease Active 03-31 00:00: 00 [facility] Other iron deficiency anemia Other iron deficiency anemia Disease Active 03-31 00:00: 00 [facility] Subcutaneo us nodules Subcutaneo us nodules Disease Active 03-31 00:00: 00 [facility] Bilateral knee pain Bilateral knee pain Disease Active 10-10 00:00: 00 [facility] Bilateral knee pain Bilateral knee pain Disease Active 10-10 00:00: 00 [facility] [id number] Pain, joint, hand, left Problem Active [facility] [id number] Primary osteoarthr itis of left hip Problem Active [facility] [id number] Trigger finger, right ring finger Problem Active [facility] [id number] Pain, joint, hand, right Problem Active [facility] [id number] Pain, joint, hip, right Problem [facility] [id number] Arthritis of right hip Problem [facility] [id number] Primary osteoarthr itis of right hip Problem [facility] [id number] Trochanter ic bursitis of left hip Problem [facility] [id number] Status post total replacemen t of left hip Problem [facility] Allergies, Adverse Reactions, Alerts Allergy Name Allergy Type Status Severity Reaction(s) Onset Date Inactive Date Treating Clinician Comments Source Codeine Propensi ty to adverse reaction s Active Nausea And Vomiting 09-07 00:00: 00 [facility] CODEINE DRUG INGREDI Active N/V 09-07 00:00: 00 [facility] codeine codeine Active Unknown [facility] Social History Social Habit Start Date Stop Date Quantity Comments Source History of Tobacco Use [facility] Sex Assigned At [facility] History SDOH Alcohol Std Drinks [facility] History SDOH Alcohol Binge [facility] Gender identity [facility] Sexual orientation U [facility] Exposure to SARS-CoV-2 (event) 2022-12-17 00:00:00 2022-12-27 08:47:[address] [facility] [place] [place] History of Social function 2022-09-23 00:00:00 2022-09-23 00:00:[address] [facility] [place] History SDOH Food Worry 2022-06-13 00:00:00 2022-06-13 00:00:[address] [facility] [place] History SDOH Food Scarcity 2022-06-13 00:00:00 2022-06-13 00:00:[address] [facility] [place] History SDOH Transport Med 2022-06-13 00:00:00 2022-06-13 00:00:[address] [facility] [place] History SDOH Transport Non-Med 2022-06-13 00:00:00 2022-06-13 00:00:[address] [facility] [place] [place] Tobacco use and exposure 2022-06-11 00:00:00 2022-06-11 00:00:00 Smokeless tobacco non-user [facility] [place] [place] Education - What is the highest level of school you have completed or the highest degree you have received? 2022-06-10 00:00:00 2022-06-10 00:00:00 Some college, no degree [facility] [place] Alcohol intake 2020-12-18 00:00:00 2020-12-18 00:00:00 Lifetime non-drinker (finding) [facility] History SDOH Alcohol Frequency 2020-12-18 00:00:00 2020-12-18 00:00:00 1 [facility] Smoking Status Start Date Stop Date Source Never smoked tobacco [facility] Medications Ordered Medication Name Filled Medication Name Start Date Stop Date Current Medication? Ordering Clinician Indication Dosage Frequency Signature (SIG) Comments Components Source amitriptyli ne (ELAVIL) tablet 150 mg 08-30 15:00: 00 Yes 150mg 150 mg, Oral, DAILY, First dose on 08/30/23 at 0900, Until Discontinu ed, Routine [facility] enoxaparin (LOVENOX) injection 40 mg 08-30 15:00: 00 Yes 40mg 40 mg, Subcutaneo us, DAILY, First dose on 08/30/23 at 0900, Until Discontinu ed, Routine [facility] amitriptyli ne 150 mg tablet 08-30 14:20: 33 Yes amitriptyl ine 150 mg tablet Take 1 tablet every day by oral route for 30 days. [facility] semaglutide (OZEMPIC) 1 mg/dose (4 mg/3 mL) PnIj 08-30 14:20: 33 Yes 1.25mg inject 1.25 mg under the skin weekly. [facility] Sliding Scale Insulin - Lispro (HumaLOG) 08-30 03:00: 00 Yes Subcutaneo us, TID MEALS+HS, First dose on Fri08/29/23 at 2100, Until Discontinu ed, Routine [facility] pantoprazol e (PROTONIX) injection 40 mg 08-30 02:00: 00 Yes 40mg 40 mg, Slow IV Push, Q24H, First dose on Fri08/29/23 at 2000, Until Discontinu ed [facility] NaCl 0.9% (NS) IV infusion 1,000 mL 08-30 01:15: 00 Yes 1000mL at 75 mL/hr, IV Infusion, CONTINUOUS , Starting on Fri08/29/23 at 1915, Until Discontinu ed, Routine [facility] iopamidol (ISOVUE 370-500 mL) injection 75 mL 08-30 00:15: 00 08-30 00:15 :00 No [id number] 75mL 75 mL, Intravenou s, ONCE, 1 dose, On Fri08/29/23 at 1815, Routine [facility] proMETHazin e (PHENERGAN) 12.5 mg in NS 50 mL IV piggyback (CNR) 08-30 00:01: 07 Yes 12.5mg 12.5 mg, IV Piggyback, at 200 mL/hr Administer over 15 Minutes, Q4HPRN, Starting on Fri08/29/23 at 1801, Until Discontinu ed, Routine, N/V unresponsi ve to Ondansetro n [facility] ondansetron (ZOFRAN (PF)) injection 4 mg 08-30 00:00: 10 Yes 4mg 4 mg, Slow IV Push, Q6HPRN, Starting on Fri08/29/23 at 1800, Until Discontinu ed, Routine, Nausea and Vomiting (N/V) [facility] glucagon (GLUCAGEN DIAGNOSTIC KIT) injection 1 mg 08-29 23:59: 42 Yes 1mg 1 mg, Intramuscu lar, PRN, Starting on Fri08/29/23 at 1759, Until Discontinu ed, KUNAL, Blood Glucose < or = 70 mg/dL and patient is NPO, unable to swallow or has mental changes. [facility] dextrose 50 % in water (D50W) injection 25 mL 08-29 23:59: 42 Yes 25mL 25 mL, Slow IV Push, PRN, Starting on Fri08/29/23 at 1759, Until Discontinu ed, KUNAL, Blood Glucose < or = 70 mg/dL and patient is NPO, unable to swallow or has mental status changes. [facility] FENTanyl PF (SUBLIMAZE (PF)) injection 25 mcg 08-29 23:59: 16 08-30 23:58 :16 No 25ug 25 mcg, Slow IV Push, Q3HPRN, Starting on Fri08/29/23 at 1759, Until 08/30/23 at 1758, Routine, Pain (scale 7-10) [facility] acetaminoph en (TYLENOL) tablet 650 mg 08-29 23:59: 10 Yes 650mg 650 mg, Oral, Q6HPRN, Starting on Fri08/29/23 at 1759, Until Discontinu ed, Routine, Pain (scale 1-3) [facility] haloperidol lactate (HALDOL) injection 2.5 mg 08-29 22:30: 00 08-30 00:08 :00 No 2.5mg 2.5 mg, Intravenou s, ONCE, 1 dose, On Fri08/29/23 at 1630, STAT [facility] morpHINE (4 mg/mL) injection 4 mg 08-29 21:00: 00 08-29 20:55 :00 No 4mg 4 mg, Slow IV Push, ONCE, 1 dose, On Fri08/29/23 at 1500, STAT [facility] Fesoterodin e (TOVIAZ) 4 mg tablet 08-29 20:23: 58 08-29 00:00 :00 No Toviaz 4 mg tablet,ext ended release [facility] DULoxetine 60 mg capsule 08-29 20:23: 58 08-29 00:00 :00 No 60mg Take 1 capsule by mouth in the morning. [facility] proMETHazin e (PHENERGAN) 12.5 mg in NS 50 mL IV piggyback (CNR) 08-29 20:00: 00 08-29 20:48 :00 No 12.5mg 12.5 mg, IV Piggyback, at 200 mL/hr Administer over 15 Minutes, ONCE, 1 dose, On Fri08/29/23 at 1400, KUNAL [facility] iopamidol (ISOVUE 370-500 mL) injection 100 mL 08-29 20:00: 00 08-29 20:00 :00 No [id number] 100mL 100 mL, Intravenou s, ONCE, 1 dose, On Fri08/29/23 at 1400, Routine [facility] morpHINE (4 mg/mL) injection 4 mg 08-29 18:30: 00 08-29 18:45 :00 No 4mg 4 mg, Slow IV Push, ONCE, 1 dose, On Fri08/29/23 at 1230, STAT [facility] ketorolac (TORADOL) injection 30 mg 08-29 17:45: 00 08-29 16:48 :00 No 30mg 30 mg, Slow IV Push, ONCE, 1 dose, On Fri08/29/23 at 1145, Routine [facility] NaCl 0.9% (NS) bolus infusion 1,000 mL 08-29 17:30: 00 08-29 17:42 :00 No 1000mL at 999 mL/hr, 1,000 mL, IV Infusion, ONCE, 1 dose, On Fri08/29/23 at 1130, KUNAL [facility] famotidine (PEPCID (PF)) injection 20 mg 08-29 16:45: 00 08-29 16:45 :00 No 20mg 20 mg, Slow IV Push, ONCE, 1 dose, On Fri08/29/23 at 1045, [facility] ondansetron (ZOFRAN (PF)) injection 4 mg 08-29 16:45: 00 08-29 16:44 :00 No 4mg 4 mg, Slow IV Push, ONCE, 1 dose, On Fri08/29/23 at 1045, [facility] Xarelto 10 MG Xarelto 10 MG 05 00:00: 00 No 1{table t} QD Xarelto 10 MG Lidocaine Lidocaine 01-13 00:00: 00 No 5mL [facility] Kenalog (Triamcinol one) Kenalog (Triamcinol one) 01-13 00:00: 00 No 2mL [facility] atorvastati n 10 mg tablet 12-27 09:06: 57 12-27 00:00 :00 No 10mg Take 1 tablet by mouth in the morning. [facility] amitriptyli ne 150 mg tablet 12-27 08:56: 31 Yes amitriptyl ine 150 mg tablet Take 1 tablet every day by oral route for 30 days. [facility] Fesoterodin e (TOVIAZ) 4 mg tablet 12-27 08:56: 31 Yes Toviaz 4 mg tablet,ext ended release [facility] DULoxetine 60 mg capsule 12-27 08:56: 31 Yes 60mg Take 1 capsule by mouth in the morning. [facility] semaglutide (OZEMPIC) 1 mg/dose (4 mg/3 mL) PnIj 12-27 08:56: 31 Yes 1.25mg inject 1.25 mg under the skin weekly. [facility] traMADoL 50 mg tablet 12-21 00:00: 00 08-29 00:00 :00 No TAKE 1 TABLET BY MOUTH EVERY 8 HOURS NEEDED FOR 10 DAYS [facility] FENTanyl PF (SUBLIMAZE (PF)) injection 25 mcg 09-23 14:14: 37 Yes 25ug 25 mcg, Slow IV Push, Q5MIN PRN, 4 doses, Starting on Fri09/23/22 at 0814, Until Discontinu ed, Routine, Pain (scale 4-6), PACU [facility] ondansetron (ZOFRAN (PF)) injection 4 mg 09-23 14:14: 37 09-23 14:16 :00 No 4mg 4 mg, Slow IV Push, PRN, 1 dose, Starting on Fri09/23/22 at 0814, Until Fri09/23/22 at 0816, Routine, Nausea and Vomiting (N/V), PACU [facility] triamcinolo ne acetonide (KENALOG) injection 09-23 13:55: 00 09-23 17:13 :49 No PRN, Starting on Fri09/23/22 at 0755, Until Fri09/23/22 at 1113, Routine, Intra-op [facility] bupivacaine (preserv free) 0.5% (SENSORCAIN E MPF) 0.5 % (5 mg/mL) injection 09-23 13:55: 00 09-23 17:13 :49 No PRN, Starting on Fri09/23/22 at 0755, Until Fri09/23/22 at 1113, Routine, Intra-op [facility] triamcinolo ne acetonide (KENALOG) injection 09-23 13:53: 00 09-23 17:13 :49 No PRN, Starting on Fri09/23/22 at 0753, Until Fri09/23/22 at 1113, Routine, Intra-op [facility] bupivacaine (preserv free) 0.5% (SENSORCAIN E MPF) 0.5 % (5 mg/mL) injection 09-23 13:53: 00 09-23 17:13 :49 No PRN, Starting on Fri09/23/22 at 0753, Until Fri09/23/22 at 1113, Routine, Intra-op [facility] lactated ringers IV infusion 1,000 mL 09-23 12:45: 00 09-23 13:02 :00 No 1000mL at 42 mL/hr, 1,000 mL, IV Infusion, ONCE, 1 dose, On 09/23/22 at 0645, Routine, DSU Pre-op [facility] amitriptyli ne 150 mg tablet 09-23 09:08: 45 Yes amitriptyl ine 150 mg tablet Take 1 tablet every day by oral route for 30 days. [facility] Fesoterodin e (TOVIAZ) 4 mg tablet 09-23 09:08: 45 Yes Toviaz 4 mg tablet,ext ended release [facility] DULoxetine 60 mg capsule 09-23 09:08: 45 Yes 60mg Take 60 mg by mouth daily. [facility] atorvastati n 10 mg tablet 09-23 09:08: 45 Yes 10mg Take 10 mg by mouth in the morning. [facility] semaglutide (OZEMPIC) 1 mg/dose (4 mg/3 mL) PnIj 09-23 09:08: 45 Yes 1.25mg inject 1.25 mg under the skin weekly. [facility] aspirin 325 mg tablet 09-23 00:00: 00 10-22 04:59 :00 No [id number] 325mg Take 1 tablet by mouth in the morning and 1 tablet in the evening. Take with meals. Do all this for 28 days. [facility] semaglutide (OZEMPIC) 1 mg/dose (4 mg/3 mL) PnIj 09-17 13:39: 54 Yes 1.25mg inject 1.25 mg under the skin weekly. [facility] atorvastati n 10 mg tablet 09-17 13:19: 59 Yes 10mg Take 10 mg by mouth in the morning. [facility] amitriptyli ne 150 mg tablet 09-17 13:09: 47 Yes amitriptyl ine 150 mg tablet Take 1 tablet every day by oral route for 30 days. [facility] Fesoterodin e (TOVIAZ) 4 mg tablet 09-17 13:09: 47 Yes Toviaz 4 mg tablet,ext ended release [facility] DULoxetine 60 mg capsule 09-17 13:09: 47 Yes 60mg Take 60 mg by mouth daily. [facility] cefTRIAXone (ROCEPHIN) 1,000 mg in NaCl [...] Urine
D uration of Therapy: 7 days [facility] lactobacill us acidophilus 2021-08 00:00: 00 07-14 05:59 :00 No [id number] .5mg Take 1 tablet by mouth in the morning for 30 days. [facility] polyethylen e glycol 3350 17 gram powder 2021-08 00:00: 00 07-14 05:59 :00 No [id number] 17g Take 1 Packet by mouth in the morning for 30 days. [facility] sennosides- docusate sodium (SENOKOT-S) 8.6-50 mg per tablet 1 tablet 2021-08 16:15: 00 Yes 1{tbl} 1 tablet, Oral, DAILY, First dose on Fri06/12/22 at 1015, Until Discontinu ed, Routine [facility] polyethylen e glycol 3350 powder 17 g 2021-08 16:15: 00 Yes 17g 17 g, Oral, DAILY, First dose on Fri06/12/22 at 1015, Until Discontinu ed, Routine [facility] amitriptyli ne 150 mg tablet 2021-08 16:08: 30 Yes amitriptyl ine 150 mg tablet Take 1 tablet every day by oral route for 30 days. [facility] Fesoterodin e (TOVIAZ) 4 mg tablet 2021-08 16:08: 30 Yes Toviaz 4 mg tablet,ext ended release [facility] DULoxetine 60 mg capsule 2021-08 16:08: 30 Yes 60mg Take 60 mg by mouth daily. [facility] proMETHazin e 25 mg tablet 2021-08 00:00: 00 09-17 00:00 :00 No [id number] 25mg Take 1 tablet by mouth every 4 (four) hours as needed for N/V unresponsi ve to Ondansetro n. [facility] docusate 100 mg capsule 2021-08 00:00: 00 07-13 05:59 :00 No [id number] 100mg Take 1 capsule by mouth in the morning and 1 capsule in the evening. Do all this for 30 days. [facility] HYDROcodone -acetaminop hen 5-325 mg tablet 2021-08 00:00: 00 06-20 05:59 :00 No [id number] 1{tbl} Take 1 tablet by mouth every 6 (six) hours as needed for Pain (scale 7-10) for up to 7 days. Indication s: acute pain [facility] ciprofloxac in HCl 500 mg tablet 2021-08 00:00: 00 06-20 05:59 :00 No [id number] 500mg Take 1 tablet by mouth every 12 (twelve) hours for 7 days. [facility] metroNIDAZO LE 250 mg tablet 2021-08 00:00: 00 06-20 05:59 :00 No [id number] 500mg Take 2 tablets by mouth every 12 (twelve) hours for 7 days. [facility] proMETHazin e (PHENERGAN) 25 mg in NaCl 0.9% (NS) 50 mL IV piggyback 2021-08 21:26: 59 Yes 25mg 25 mg, IV Piggyback, Q4HPRN, Starting on Fri06/11/22 at 1526, Until Discontinu ed, Routine, Nausea and Vomiting (N/V), N/V unresponsi ve to Ondansetro n [facility] acetaminoph en (TYLENOL) tablet 650 mg 2021-08 15:55: 26 Yes 650mg 650 mg, Oral, Q6HPRN, Starting on Fri06/11/22 at 0955, Until Discontinu ed, Routine, Pain (scale 1-3) [facility] enoxaparin (LOVENOX) injection 40 mg 2021-08 15:00: 00 Yes 40mg 40 mg, Subcutaneo us, DAILY, First dose on Fri06/11/22 at 0900, Until Discontinu ed, Routine [facility] DULoxetine (CYMBALTA) capsule 60 mg 2021-08 15:00: 00 Yes 60mg 60 mg, Oral, DAILY, First dose on Fri06/11/22 at 0900, Until Discontinu ed, Routine [facility] lactobacill us acidophilus tablet 0.5 mg 2021-08 15:00: 00 Yes .5mg 0.5 mg, Oral, DAILY, First dose on Fri06/11/22 at 0900, Until Discontinu ed, Routine [facility] Sliding Scale Insulin - Lispro (HumaLOG) + Fsbg Testing 2021-08 14:00: 00 Yes Subcutaneo us, TID MEALS, First dose on Fri06/11/22 at 0800, Until Discontinu ed, Routine [facility] morpHINE (4 mg/mL) injection 4 mg 2021-08 12:52: 08 Yes 4mg 4 mg, Slow IV Push, Q4HPRN, Starting on Fri06/11/22 at 0652, Until Discontinu ed, Routine, Pain (scale 7-10) [facility] cefTRIAXone (ROCEPHIN) 1,000 mg in NaCl [...] Urine
D uration of Therapy: 7 days [facility] docusate (COLACE) capsule 100 mg 2021-08 06:15: 00 Yes 100mg 100 mg, Oral, BID, First dose on Fri06/11/22 at 0015, Until Discontinu ed, Routine [facility] gabapentin (NEURONTIN) capsule 200 mg 2021-08 06:15: 00 Yes 200mg 200 mg, Oral, BID, First dose on Fri06/11/22 at 0015, Until Discontinu ed, Routine [facility] ondansetron (ZOFRAN (PF)) injection 4 mg 2021-08 06:06: 47 Yes 4mg 4 mg, Slow IV Push, Q6HPRN, Starting on Fri06/11/22 at 0006, Until Discontinu ed, Routine, Nausea and Vomiting (N/V) [facility] traMADoL (ULTRAM) tablet 50 mg 2021-08 06:06: 37 06-13 06:05 :37 No 50mg 50 mg, Oral, Q8HPRN, Starting on Fri06/11/22 at 0006, Until Sneha 06/13/22 at 0005, Routine, Pain (scale 4-6) [facility] FENTanyl PF (SUBLIMAZE (PF)) injection 50 mcg 2021-08 05:58: 16 06-11 12:52 :20 No 50ug 50 mcg, Slow IV Push, Q4HPRN, Starting on Fri06/10/22 at 2358, Until Fri06/11/22 at 0652, Routine, Pain (scale 7-10) [facility] NaCl 0.9% (NS) IV infusion 1,000 mL 2021-08 04:30: 00 Yes 1000mL at 100 mL/hr, IV Infusion, CONTINUOUS , Starting on Fri06/10/22 at 2230, Until Discontinu ed, Routine [facility] NaCl 0.9% (NS) bolus infusion 1,500 mL 2021-08 03:45: 00 06-11 03:33 :01 No 1500mL at 999 mL/hr, 1,500 mL, IV Infusion, ONCE, 1 dose, On Fri06/10/22 at 2145, KUNAL [facility] ondansetron (ZOFRAN (PF)) injection 4 mg 2021-08 03:17: 24 06-11 06:07 :04 No 4mg 4 mg, Slow IV Push, Q6HPRN, Starting on Fri06/10/22 at 2117, Until Fri06/11/22 at 0007, KUNAL, Nausea and Vomiting (N/V) [facility] metoclopram raven HCl (REGLAN) injection 10 mg 2021-08 03:17: 15 06-11 21:27 :54 No 10mg 10 mg, Slow IV Push, TIDPRN, Starting on Fri06/10/22 at 2117, Until Fri06/11/22 at 1527, Routine, Nausea and Vomiting (N/V) [facility] morpHINE (4 mg/mL) injection 4 mg 2021-08 03:16: 49 06-11 05:58 :48 No 4mg 4 mg, Slow IV Push, Q4HPRN, Starting on Fri06/10/22 at 2116, Until Fri06/10/22 at 2358, Routine, Pain (scale 7-10) [facility] oxybutynin 10 mg 24 hr tablet 2021-08 00:05: 07 06-11 00:00 :00 No oxybutynin chloride ER 10 mg tablet,ext ended release 24 hr [facility] semaglutide (OZEMPIC) 0.25 mg or 0.5 mg(2 mg/1.5 mL) PnIj 2021-08 00:05: 06-11 00:00 :00 No .25mg 0.25 mg. [facility] semaglutide , weight loss, (WEGOVY) 0.25 mg/0.5 mL PnIj SC injection 2021-08 00:05: 07 06-11 00:00 :00 No Wegovy 0.25 mg/0.5 mL subcutaneo us pen injector 0.25 mg SC qwk x4wk, then 0.5 mg SC qwk x4wk, then 1 mg SC qwk x4wk, then 1.7 mg SC qwk x4wk, then 2.4 mg SC qwk [facility] clindamycin 300 mg capsule 2021-08 00:05: 06-11 00:00 :00 No clindamyci n HCl 300 mg capsule Take 1 capsule 3 times a day by oral route for 10 days. [facility] NaCl 0.9% (NS) bolus infusion 500 mL 2021-08 00:00: 00 06-11 00:17 :00 No 500mL at 999 mL/hr, 500 mL, IV Infusion, ONCE, 1 dose, On Fri06/10/22 at 1800, STAT [facility] proMETHazin e (PHENERGAN) 25 mg in NaCl 0.9% (NS) 50 mL IV piggyback 2021-08 00:00: 00 06-11 00:06 :00 No 25mg 25 mg, IV Piggyback, ONCE, 1 dose, On Fri06/10/22 at 1800, [facility] (ZOFRAN (PF)) [facility] 4 mg 2021-08 23:15: 00 06-10 22:25 :00 No 4mg 4 mg, Slow IV Push, ONCE, 1 dose, On Fri06/10/22 at 1715, [facility] morpHINE (4 mg/mL) injection 4 mg 2021-08 22:15: 00 06-10 21:21 :00 No 4mg 4 mg, Slow IV Push, ONCE, 1 dose, On Fri06/10/22 at 1615, STAT [facility] cefTRIAXone (ROCEPHIN) 1,000 mg in NaCl 0.9% (NS) 50 mL MINI-BAG 2021-08 20:15: 00 06-10 20:51 :00 No 1000mg 1,000 mg, IV Piggyback, ONCE, 1 dose, On Fri06/10/22 at 1415, Administer over 30 Minutes, 50 mL
Reas on for Anti-Infec tive: Documented Infection< br>Documen billy Infection Site: Urine
D uration of Therapy: 7 days [facility] ketorolac (TORADOL) injection 30 mg 2021-08 20:00: 00 06-10 19:01 :00 No 30mg 30 mg, Slow IV Push, ONCE, 1 dose, On Fri06/10/22 at 1400, Routine [facility] morpHINE (4 mg/mL) injection 4 mg 2021-08 19:30: 00 06-10 19:29 :00 No 4mg 4 mg, Slow IV Push, ONCE, 1 dose, On Fri06/10/22 at 1330, STAT [facility] ondansetron (ZOFRAN (PF)) injection 4 mg 2021-08 19:30: 00 06-10 19:29 :00 No 4mg 4 mg, Slow IV Push, ONCE, 1 dose, On Fri06/10/22 at 1330, [facility] FENTanyl PF (SUBLIMAZE (PF)) injection 50 mcg 2021-08 18:01: 00 06-10 18:02 :00 No 50ug 50 mcg, Slow IV Push, ONCE, 1 dose, On Fri06/10/22 at 1215, Routine [facility] cefpodoxime 100 mg tablet 2021-08 00:00: 00 06-12 00:00 :00 No [id number] 100mg Take 1 tablet by mouth in the morning and 1 tablet in the evening. Do all this for 7 days. [facility] amitriptyli ne 150 mg tablet 01-14 09:33: 45 Yes amitriptyl ine 150 mg tablet Take 1 tablet every day by oral route for 30 days. [facility] Fesoterodin e (TOVIAZ) 4 mg tablet 01-14 09:33: 45 Yes Toviaz 4 mg tablet,ext ended release [facility] oxybutynin 10 mg 24 hr tablet 01-14 09:33: 45 Yes oxybutynin chloride ER 10 mg tablet,ext ended release 24 hr [facility] semaglutide (OZEMPIC) 0.25 mg or 0.5 mg(2 mg/1.5 mL) PnIj 01-14 09:33: 45 Yes .25mg 0.25 mg. [facility] semaglutide , weight loss, (WEGOVY) 0.25 mg/0.5 mL PnIj SC injection 01-14 09:33: 45 Yes Wegovy 0.25 mg/0.5 mL subcutaneo us pen injector 0.25 mg SC qwk x4wk, then 0.5 mg SC qwk x4wk, then 1 mg SC qwk x4wk, then 1.7 mg SC qwk x4wk, then 2.4 mg SC qwk [facility] clindamycin 300 mg capsule 01-14 09:33: 45 Yes clindamyci n HCl 300 mg capsule Take 1 capsule 3 times a day by oral route for 10 days. [facility] DULoxetine 60 mg capsule 01-14 09:33: 45 Yes 60mg Take 60 mg by mouth daily. [facility] gabapentin 100 mg capsule 11-29 00:00: 00 Yes 100mg Take 1 capsule by mouth in the morning and 1 capsule in the evening. [facility] gabapentin 100 mg capsule 11-29 00:00: 00 Yes 800mg Take 8 capsules by mouth in the morning and 8 capsules at noon and 8 capsules in the evening. [facility] lidocaine-p rilocaine 2.5-2.5 % cream 10-01 00:00: 00 Yes APPLY TO AFFECTED AREA EVERY DAY NEEDED [facility] eszopiclone 1 mg tablet 10-01 00:00: 00 09-17 00:00 :00 No 1mg Take 1 mg by mouth daily. [facility] methylPREDN ISolone (MEDROL, LUNA,) 4 mg tablets 09-24 00:00: 00 Yes [id number] 84mg Take 21 tablets by mouth SEE-INSTRU CTIONS. follow package directions [facility] methylPREDN ISolone (MEDROL, LUNA,) 4 mg tablets 2020-08 0 00:00: 00 Yes [id number] 84mg Take 21 tablets by mouth SEE-INSTRU CTIONS. follow package directions [facility] methocarbam ol (Robaxin) 750 MG tablet 12-18 00:00: 00 12-29 04:59 :00 No [id number] 750mg [id number] 3D Take 1 tablet (750 mg total) by mouth 3 (three) times a day if needed for muscle spasms for up to 10 days. [facility] metFORMIN (Glucophage ) 1000 MG tablet 12-14 00:00: 00 Yes [facility] benzonatate 100 mg capsule 01-25 00:00: 00 Yes [id number] 100mg Take 1 capsule by mouth 3 (three) times daily as needed for Cough. [facility] chlorphenir amine 4 mg tablet 01-25 00:00: 00 Yes [id number] 4mg Take 1 tablet by mouth every 6 (six) hours as needed for Allergies or Runny nose. [facility] LIDOCAINE HCL 10MG/ML LIDOCAINE HCL 10MG/ML 01-19 00:00: 00 No .5mL [facility] Depo-Medrol (Methylpred nisolone) 40mg Depo-Medrol (Methylpred nisolone) 40mg 01-19 00:00: 00 No .5mL [facility] loratadine 10 mg tablet 03-03 00:00: 00 Yes 10mg Take 1 tablet by mouth in the morning. [facility] metFORMIN 1,000 mg tablet 7-07 00:00: 00 09-17 00:00 :00 No TAKE 1 TABLET BY MOUTH TWICE A DAY NEEDED WITH MORNING AND EVENING MEAL [facility] famotidine 40 mg tablet 2-20 00:00: 00 09-17 00:00 :00 No 40mg Take 1 tablet by mouth daily. [facility] Xigduo XR 10-500 MG Xigduo XR [...] Quad IM 3+ YRS 2021-06-24 00:00:[address] [facility] [place] Influenza Virus Vaccine Quad IM 3+ YRS 2021-06-24 00:00:[address] [facility] [place] [place] Influenza Virus Vaccine Quad IM 3+ YRS 2021-06-24 00:00:[address] [facility] [place] Influenza Virus Vaccine Quad IM 3+ YRS 2021-06-24 00:00:[address] [facility] [place] Influenza Virus Vaccine Quad IM 3+ YRS 2021-06-24 00:00:[address] [facility] [place] Influenza Virus Vaccine Quad IM 3+ YRS 2021-06-24 00:00:[address] [facility] [place] Influenza Virus Vaccine Quad IM 3+ YRS 2021-06-24 00:00:[address] [facility] [place] [place] Influenza Virus Vaccine Quad IM 3+ YRS 2021-06-24 00:00:[address] [facility] [place] Influenza Virus Vaccine Quad IM 3+ YRS 2021-06-24 00:00:[address] [facility] [place] Influenza Virus Vaccine Quad IM 3+ YRS 2021-06-24 00:00:[address] [facility] [place] Influenza Virus Vaccine Quad IM 3+ YRS 2021-06-24 00:00:[address] [facility] [place] Influenza Virus Vaccine Quad IM 3+ YRS 2021-06-24 00:00:[address] [facility] [place] Influenza Virus Vaccine Quad IM 3+ YRS 2021-06-24 00:00:[address] [facility] [place] Influenza Virus Vaccine Quad IM 3+ YRS 2021-06-24 00:00:[address] [facility] [place] Influenza Virus Vaccine Quad IM 3+ YRS 2021-06-24 00:00:[address] [facility] [place] Influenza Virus Vaccine Quad IM 3+ YRS 2021-06-24 00:00:[address] [facility] [place] Influenza Virus Vaccine Quad IM 3+ YRS 2021-06-24 00:00:[address] [facility] [place] Influenza Virus Vaccine Quad IM 3+ YRS 2021-06-24 00:00:[address] [facility] [place] Influenza Virus Vaccine Quad IM 3+ YRS 2021-06-24 00:00:[address] [facility] [place] Influenza Virus Vaccine Quad IM 3+ YRS 2021-06-24 00:00:[address] [facility] [place] [place] SARS-COV-2 COVID-19 PFIZER VACCINE 2021-04-23 00:00:[address] [facility] [place] SARS-COV-2 COVID-19 ALY/J&J VACCINE 2021-04-23 00:00:[address] [facility] [place] SARS-COV-2 COVID-19 PFIZER VACCINE 2021-04-23 00:00:[address] [facility] [place] SARS-COV-2 COVID-19 ALY/J&J VACCINE 2021-04-23 00:00:[address] [facility] [place] SARS-COV-2 COVID-19 PFIZER VACCINE 2021-04-23 00:00:[address] [facility] [place] SARS-COV-2 COVID-19 ALY/J&J VACCINE 2021-04-23 00:00:[address] [facility] [place] SARS-COV-2 COVID-19 PFIZER VACCINE 2021-04-23 00:00:[address] [facility] [place] SARS-COV-2 COVID-19 ALY/J&J VACCINE 2021-04-23 00:00:[address] [facility] [place] SARS-COV-2 COVID-19 PFIZER VACCINE 2021-04-23 00:00:[address] [facility] [place] SARS-COV-2 COVID-19 ALY/J&J VACCINE 2021-04-23 00:00:[address] [facility] [place] SARS-COV-2 COVID-19 PFIZER VACCINE 2021-04-23 00:00:[address] [facility] [place] SARS-COV-2 COVID-19 ALY/J&J VACCINE 2021-04-23 00:00:[address] [facility] [place] SARS-COV-2 COVID-19 PFIZER VACCINE 2021-04-23 00:00:[address] [facility] [place] SARS-COV-2 COVID-19 ALY/J&J VACCINE 2021-04-23 00:00:[address] [facility] [place] SARS-COV-2 COVID-19 PFIZER VACCINE 2021-04-23 00:00:[address] [facility] [place] SARS-COV-2 COVID-19 ALY/J&J VACCINE 2021-04-23 00:00:[address] [facility] [place] SARS-COV-2 COVID-19 PFIZER VACCINE 2021-04-23 00:00:[address] [facility] [place] SARS-COV-2 COVID-19 ALY/J&J VACCINE 2021-04-23 00:00:[address] [facility] [place] SARS-COV-2 COVID-19 PFIZER VACCINE 2021-04-23 00:00:[address] [facility] [place] SARS-COV-2 COVID-19 ALY/J&J VACCINE 2021-04-23 00:00:[address] [facility] [place] SARS-COV-2 COVID-19 PFIZER VACCINE 2021-04-23 00:00:[address] [facility] [place] SARS-COV-2 COVID-19 ALY/J&J VACCINE 2021-04-23 00:00:[address] [facility] [place] SARS-COV-2 COVID-19 PFIZER VACCINE 2021-04-23 00:00:[address] [facility] [place] SARS-COV-2 COVID-19 ALY/J&J VACCINE 2021-04-23 00:00:[address] [facility] [place] SARS-COV-2 COVID-19 PFIZER VACCINE 2021-04-23 00:00:[address] [facility] [place] SARS-COV-2 COVID-19 ALY/J&J VACCINE 2021-04-23 00:00:[address] [facility] [place] SARS-COV-2 COVID-19 PFIZER VACCINE 2021-04-23 00:00:[address] [facility] [place] SARS-COV-2 COVID-19 ALY/J&J VACCINE 2021-04-23 00:00:[address] [facility] [place] SARS-COV-2 COVID-19 PFIZER VACCINE 2021-04-23 00:00:[address] [facility] [place] SARS-COV-2 COVID-19 ALY/J&J VACCINE 2021-04-23 00:00:[address] [facility] [place] SARS-COV-2 COVID-19 PFIZER VACCINE 2021-04-23 00:00:[address] [facility] [place] SARS-COV-2 COVID-19 ALY/J&J VACCINE 2021-04-23 00:00:[address] [facility] [place] SARS-COV-2 COVID-19 PFIZER VACCINE 2021-04-23 00:00:[address] [facility] [place] SARS-COV-2 COVID-19 ALY/J&J VACCINE 2021-04-23 00:00:[address] [facility] [place] SARS-COV-2 COVID-19 PFIZER VACCINE 2021-04-23 00:00:[address] [facility] [place] SARS-COV-2 COVID-19 ALY/J&J VACCINE 2021-04-23 00:00:[address] [facility] [place] SARS-COV-2 COVID-19 PFIZER VACCINE 2021-04-23 00:00:[address] [facility] [place] SARS-COV-2 COVID-19 ALY/J&J VACCINE 2021-04-23 00:00:[address] [facility] [place] SARS-COV-2 COVID-19 PFIZER VACCINE 2021-04-23 00:00:[address] [facility] [place] SARS-COV-2 COVID-19 ALY/J&J VACCINE 2021-04-23 00:00:[address] [facility] [place] SARS-COV-2 COVID-19 PFIZER VACCINE 2021-04-23 00:00:[address] [facility] [place] SARS-COV-2 COVID-19 ALY/J&J VACCINE 2021-04-23 00:00:[address] [facility] [place] SARS-COV-2 COVID-19 PFIZER VACCINE 2021-04-02 00:00:[address] [facility] [place] SARS-COV-2 COVID-19 ALY/J&J VACCINE 2021-04-02 00:00:[address] [facility] [place] SARS-COV-2 COVID-19 PFIZER VACCINE 2021-04-02 00:00:[address] [facility] [place] SARS-COV-2 COVID-19 ALY/J&J VACCINE 2021-04-02 00:00:[address] [facility] [place] SARS-COV-2 COVID-19 PFIZER VACCINE 2021-04-02 00:00:[address] [facility] [place] SARS-COV-2 COVID-19 ALY/J&J VACCINE 2021-04-02 00:00:[address] [facility] [place] SARS-COV-2 COVID-19 PFIZER VACCINE 2021-04-02 00:00:[address] [facility] [place] SARS-COV-2 COVID-19 ALY/J&J VACCINE 2021-04-02 00:00:[address] [facility] [place] SARS-COV-2 COVID-19 PFIZER VACCINE 2021-04-02 00:00:[address] [facility] [place] SARS-COV-2 COVID-19 ALY/J&J VACCINE 2021-04-02 00:00:[address] [facility] [place] SARS-COV-2 COVID-19 PFIZER VACCINE 2021-04-02 00:00:[address] [facility] [place] SARS-COV-2 COVID-19 ALY/J&J VACCINE 2021-04-02 00:00:[address] [facility] [place] SARS-COV-2 COVID-19 PFIZER VACCINE 2021-04-02 00:00:[address] [facility] [place] SARS-COV-2 COVID-19 ALY/J&J VACCINE 2021-04-02 00:00:[address] [facility] [place] SARS-COV-2 COVID-19 PFIZER VACCINE 2021-04-02 00:00:[address] [facility] [place] SARS-COV-2 COVID-19 ALY/J&J VACCINE 2021-04-02 00:00:[address] [facility] [place] SARS-COV-2 COVID-19 PFIZER VACCINE 2021-04-02 00:00:[address] [facility] [place] SARS-COV-2 COVID-19 ALY/J&J VACCINE 2021-04-02 00:00:[address] [facility] [place] SARS-COV-2 COVID-19 PFIZER VACCINE 2021-04-02 00:00:[address] [facility] [place] SARS-COV-2 COVID-19 ALY/J&J VACCINE 2021-04-02 00:00:[address] [facility] [place] SARS-COV-2 COVID-19 PFIZER VACCINE 2021-04-02 00:00:[address] [facility] [place] SARS-COV-2 COVID-19 ALY/J&J VACCINE 2021-04-02 00:00:[address] [facility] [place] SARS-COV-2 COVID-19 PFIZER VACCINE 2021-04-02 00:00:[address] [facility] [place] SARS-COV-2 COVID-19 ALY/J&J VACCINE 2021-04-02 00:00:[address] [facility] [place] SARS-COV-2 COVID-19 PFIZER VACCINE 2021-04-02 00:00:[address] [facility] [place] SARS-COV-2 COVID-19 ALY/J&J VACCINE 2021-04-02 00:00:[address] [facility] [place] SARS-COV-2 COVID-19 PFIZER VACCINE 2021-04-02 00:00:[address] [facility] [place] SARS-COV-2 COVID-19 ALY/J&J VACCINE 2021-04-02 00:00:[address] [facility] [place] SARS-COV-2 COVID-19 PFIZER VACCINE 2021-04-02 00:00:[address] [facility] [place] SARS-COV-2 COVID-19 ALY/J&J VACCINE 2021-04-02 00:00:[address] [facility] [place] SARS-COV-2 COVID-19 PFIZER VACCINE 2021-04-02 00:00:[address] [facility] [place] SARS-COV-2 COVID-19 ALY/J&J VACCINE 2021-04-02 00:00:[address] [facility] [place] SARS-COV-2 COVID-19 PFIZER VACCINE 2021-04-02 00:00:[address] [facility] [place] SARS-COV-2 COVID-19 ALY/J&J VACCINE 2021-04-02 00:00:[address] [facility] [place] SARS-COV-2 COVID-19 PFIZER VACCINE 2021-04-02 00:00:[address] [facility] [place] SARS-COV-2 COVID-19 ALY/J&J VACCINE 2021-04-02 00:00:[address] [facility] [place] SARS-COV-2 COVID-19 PFIZER VACCINE 2021-04-02 00:00:[address] [facility] [place] SARS-COV-2 COVID-19 ALY/J&J VACCINE 2021-04-02 00:00:[address] [facility] [place] SARS-COV-2 COVID-19 PFIZER VACCINE 2021-04-02 00:00:[address] [facility] [place] SARS-COV-2 COVID-19 ALY/J&J VACCINE 2021-04-02 00:00:[address] [facility] [place] SARS-COV-2 COVID-19 PFIZER VACCINE 2021-04-02 00:00:[address] [facility] [place] SARS-COV-2 COVID-19 ALY/J&J VACCINE 2021-04-02 00:00:[address] [facility] [place] Influenza Virus Vaccine Quad IM 3+ YRS 2020-05-12 00:00:[address] [facility] [place] Influenza Virus Vaccine Quad IM 3+ YRS 2020-05-12 00:00:[address] [facility] [place] Influenza Virus Vaccine Quad IM 3+ YRS 2020-05-12 00:00:[address] [facility] [place] Influenza Virus Vaccine Quad IM 3+ YRS 2020-05-12 00:00:[address] [facility] [place] Influenza Virus Vaccine Quad IM 3+ YRS 2020-05-12 00:00:[address] [facility] [place] Influenza Virus Vaccine Quad IM 3+ 2020-05-12 00:00:[address] [facility] [place] Influenza Virus Vaccine Quad IM 3+ 2020-05-12 00:00:[address] [facility] [place] Influenza Virus Vaccine Quad IM 3+ 2020-05-12 00:00:[address] [facility] [place] Influenza Virus Vaccine Quad IM 3+ 2020-05-12 00:00:[address] [facility] [place] Influenza Virus Vaccine Quad IM 3+ 2020-05-12 00:00:[address] [facility] [place] Influenza Virus Vaccine Quad IM 3+ YRS 2020-05-12 00:00:[address] [facility] [place] Influenza Virus Vaccine Quad IM 3+ 2020-05-12 00:00:[address] [facility] [place] Influenza Virus Vaccine Quad IM 3+ 2020-05-12 00:00:[address] [facility] [place] Influenza Virus Vaccine Quad IM 2020-05-12 00:00:[address] [facility] [place] Influenza Virus Vaccine Quad IM 2020-05-12 00:00:[address] [facility] [place] Influenza Virus Vaccine Quad IM 32020-05-12 00:00:[address] [facility] [place] Influenza Virus Vaccine Quad IM 32020-05-12 00:00:[address] [facility] [place] Influenza Virus Vaccine Quad IM 3+ 2020-05-12 00:00:[address] [facility] [place] Influenza Virus Vaccine Quad IM 3+ 2020-05-12 00:00:[address] [facility] [place] Influenza Virus Vaccine Quad IM 3+ 2020-05-12 00:00:[address] [facility] [place] Influenza Virus Vaccine Quad IM 3+ 2020-05-12 00:00:[address] [facility] [place] LIDOCAINE HCL 10MG/ML LIDOCAINE HCL 10MG/ML 2020-01-20 08:45:00 Completed [facility] Depo-Medrol (Methylprednisolone ) 40mg Depo-Medrol (Methylprednisolon e) 40mg 2020-01-20 08:44:00 Completed [facility] Depo-Medrol (Methylprednisolone ) 40mg Depo-Medrol (Methylprednisolon e) 40mg 2020-01-20 08:43:00 Completed [facility] Influenza Virus Vaccine Quad IM 3+ YRS 2019-09-13 00:00:00 Completed [facility] Influenza Virus Vaccine Quad IM 3+ YRS 2019-09-13 00:00:00 Completed [facility] Influenza Virus Vaccine Quad IM 3+ YRS 2019-09-13 00:00:00 Completed [facility] Influenza Virus Vaccine Quad IM 3+ YRS 2019-09-13 00:00:00 Completed [facility] Influenza Virus Vaccine Quad IM 3+ YRS 2019-09-13 00:00:00 Completed [facility] Influenza Virus Vaccine Quad IM 3+ YRS 2019-09-13 00:00:00 Completed [facility] Influenza Virus Vaccine Quad IM 3+ YRS 2019-09-13 00:00:00 Completed [facility] Influenza Virus Vaccine Quad IM 3+ YRS 2019-09-13 00:00:00 Completed [facility] Influenza Virus Vaccine Quad IM 3+ YRS 2019-09-13 00:00:[address] [facility] [place] Influenza Virus Vaccine Quad IM 3+ YRS 2019-09-13 00:00:00 Completed [facility] Influenza Virus Vaccine Quad IM 3+ YRS 2019-09-13 00:00:00 Completed [facility] Influenza Virus Vaccine Quad IM 3+ YRS 2019-09-13 00:00:00 Completed [facility] Influenza Virus Vaccine Quad IM 3+ YRS 2019-09-13 00:00:00 Completed [facility] Influenza Virus Vaccine Quad IM 3+ YRS 2019-09-13 00:00:00 Completed [facility] Influenza Virus Vaccine Quad IM 3+ YRS 2019-09-13 00:00:00 Completed [facility] Influenza Virus Vaccine Quad IM 3+ YRS 2019-09-13 00:00:00 Completed [facility] Influenza Virus Vaccine Quad IM 3+ YRS 2019-09-13 00:00:00 Completed [facility] Influenza Virus Vaccine Quad IM 3+ YRS 2019-09-13 00:00:00 Completed [facility] Influenza Virus Vaccine Quad IM 3+ YRS 2019-09-13 00:00:00 Completed [facility] Influenza Virus Vaccine Quad IM 3+ YRS 2019-09-13 00:00:[address] [facility] [place] Influenza Virus Vaccine Quad IM 3+ YRS 2019-09-13 00:00:[address] [facility] [place] SARS-COV-2 COVID-19 PFIZER VACCINE Unknown Completed [facility] [place] SARS-COV-2 COVID-19 ALY/J&J VACCINE Unknown Completed [facility] Influenza Virus Vaccine Quad IM 3+ YRS Unknown Completed [facility] [place] SARS-COV-2 COVID-19 PFIZER VACCINE Unknown Completed [facility] [place] SARS-COV-2 COVID-19 ALY/J&J VACCINE Unknown Completed [facility] Influenza Virus Vaccine Quad IM 3+ YRS Unknown Completed [facility] [place] SARS-COV-2 COVID-19 PFIZER VACCINE Unknown Completed [facility] [place] SARS-COV-2 COVID-19 ALY/J&J VACCINE Unknown Completed [facility] Influenza Virus Vaccine Quad IM 3+ YRS Unknown Completed [facility] [place] [place] SARS-COV-2 COVID-19 PFIZER VACCINE Unknown Completed [facility] [place] [place] SARS-COV-2 COVID-19 ALY/J&J VACCINE Unknown Completed [facility] Influenza Virus Vaccine Quad IM 3+ YRS Unknown Completed [facility] [place] [place] Vital Signs Vital Name Observation Time Observation Value Comments S ource height 2023-12-17 09:00:00 61.5 [in_i] Comm on [facility] weight 2023-12-17 09:00:00 213 [lb_av] Comm on [facility] temperature 2023-12-17 09:00:00 97.6 [degF] Com mon [facility] bmi 2023-12-17 09:00:00 39.59 kg/m2 Comm on [facility] blood pressure systolic 2023-12-17 09:00:00 126 mm[Hg] [facility] blood pressure diastolic 2023-12-17 09:00:00 78 mm[Hg] [facility] height 2023-11-28 08:00:00 61.5 [in_i] Comm on [facility] weight 2023-11-28 08:00:00 212 [lb_av] Comm on [facility] temperature 2023-11-28 08:00:00 97.4 [degF] Com mon [facility] bmi 2023-11-28 08:00:00 39.4 kg/m2 Commo n [facility] blood pressure systolic 2023-11-28 08:00:00 124 mm[Hg] [facility] blood pressure diastolic 2023-11-28 08:00:00 81 mm[Hg] [facility] height 2023-09-18 14:30:00 61.5 [in_i] Comm on [facility] weight 2023-09-18 14:30:00 217.6 [lb_av] Co mmon [facility] temperature 2023-09-18 14:30:00 97.9 [degF] Com [facility] bmi 2023-09-18 14:30:00 40.44 kg/m2 Comm on [facility] blood pressure systolic 2023-09-18 14:30:00 128 mm[Hg] [facility] blood pressure diastolic 2023-09-18 14:30:00 83 mm[Hg] [facility] Systolic blood pressure 2023-08-30 17:41:00 129 mm[Hg] [facility] Diastolic blood pressure 2023-08-30 17:41:00 73 mm[Hg] [facility] Heart rate 2023-08-30 17:41:00 93 /min [facility] Body temperature 2023-08-30 17:41:[address] [facility] [place] [place] Respiratory rate 2023-08-30 17:41:00 18 /min [facility] [place] [place] Oxygen saturation in Arterial blood by Pulse oximetry 2023-08-30 17:41:00 97 /min [facility] Body height 2023-08-30 01:53:00 157.5 cm [facility] Body weight 2023-08-30 01:53:00 103.42 kg [facility] BMI 2023-08-30 01:53:00 41.70 kg/m2 [facility] height 2023-05-23 10:30:00 61.5 [in_i] Comm on [facility] weight 2023-05-23 10:30:00 225 [lb_av] Comm on [facility] temperature 2023-05-23 10:30:00 98.1 [degF] Com mon [facility] bmi 2023-05-23 10:30:00 41.82 kg/m2 Comm on [facility] blood pressure systolic 2023-05-23 10:30:00 131 mm[Hg] [facility] blood pressure diastolic 2023-05-23 10:30:00 82 mm[Hg] [facility] height 2023-05-07 09:30:00 61.5 [in_i] Comm on [facility] weight 2023-05-07 09:30:00 227 [lb_av] Comm on [facility] temperature 2023-05-07 09:30:00 97.6 [degF] Com [facility] bmi 2023-05-07 09:30:00 42.19 kg/m2 Comm on [facility] blood pressure systolic 2023-05-07 09:30:00 130 mm[Hg] [facility] blood pressure diastolic 2023-05-07 09:30:00 78 mm[Hg] [facility] height 2023-03-17 13:45:00 61.5 [in_i] Comm on [facility] weight 2023-03-17 13:45:00 220 [lb_av] Comm on [facility] temperature 2023-03-17 13:45:00 98.2 [degF] Com [facility] bmi 2023-03-17 13:45:00 40.89 kg/m2 Comm on [facility] blood pressure systolic 2023-03-17 13:45:00 132 mm[Hg] [facility] blood pressure diastolic 2023-03-17 13:45:00 84 mm[Hg] [facility] height 2023-01-13 08:45:00 61.5 [in_i] Comm on [facility] weight 2023-01-13 08:45:00 221 [lb_av] Comm on [facility] temperature 2023-01-13 08:45:00 97.9 [degF] Com mon [facility] bmi 2023-01-13 08:45:00 41.08 kg/m2 Comm on [facility] blood pressure systolic 2023-01-13 08:45:00 128 mm[Hg] [facility] blood pressure diastolic 2023-01-13 08:45:00 82 mm[Hg] [facility] height 2023-01-07 09:30:00 61.5 [in_i] Comm on [facility] weight 2023-01-07 09:30:00 221 [lb_av] Comm on [facility] temperature 2023-01-07 09:30:00 97.7 [degF] Com mon [facility] bmi 2023-01-07 09:30:00 41.08 kg/m2 Comm on [facility] blood pressure systolic 2023-01-07 09:30:00 134 mm[Hg] [facility] blood pressure diastolic 2023-01-07 09:30:00 80 mm[Hg] [facility] Systolic blood pressure 2022-12-27 14:00:00 120 mm[Hg] [facility] Diastolic blood pressure 2022-12-27 14:00:00 87 mm[Hg] [facility] Heart rate 2022-12-27 14:00:00 102 /min [facility] Body height 2022-12-27 14:00:00 152.4 cm [facility] Body weight 2022-12-27 14:00:00 101.696 kg [facility] BMI 2022-12-27 14:00:00 43.79 kg/m2 [facility] Oxygen saturation in Arterial blood by Pulse oximetry 2022-12-27 14:00:00 98 /min [facility] Systolic blood pressure 2022-09-23 14:42:00 141 mm[Hg] [facility] Diastolic blood pressure 2022-09-23 14:42:00 74 mm[Hg] [facility] Heart rate 2022-09-23 14:42:00 76 /min [facility] Respiratory rate 2022-09-23 14:42:00 8 /min [facility] [place] [place] Oxygen saturation in Arterial blood by Pulse oximetry 2022-09-23 14:42:00 100 /min [facility] Body temperature 2022-09-23 14:07:[address] [facility] [place] [place] Body height 2022-09-17 19:30:00 154.9 cm [facility] Body weight 2022-09-17 19:30:00 113.399 kg [facility] BMI 2022-09-17 19:30:00 47.24 kg/m2 [facility] Systolic blood pressure 2022-09-23 12:46:00 144 mm[Hg] [facility] Diastolic blood pressure 2022-09-23 12:46:00 68 mm[Hg] [facility] Heart rate 2022-09-23 12:46:00 90 /min [facility] Body temperature 2022-09-23 12:46:[address] [facility] [place] [place] Respiratory rate 2022-09-23 12:46:00 17 /min [facility] [place] [place] Oxygen saturation in Arterial blood by Pulse oximetry 2022-09-23 12:46:00 95 /min [facility] Body height 2022-09-17 19:30:00 154.9 cm [facility] Body weight 2022-09-17 19:30:00 113.399 kg [facility] BMI 2022-09-17 19:30:00 47.24 kg/m2 [facility] Systolic blood pressure 2022-09-19 16:02:00 125 mm[Hg] [facility] Diastolic blood pressure 2022-09-19 16:02:00 81 mm[Hg] [facility] Heart rate 2022-09-19 16:02:00 79 /min [facility] Body temperature 2022-09-19 16:02:[address] [facility] [place] [place] Respiratory rate 2022-09-19 16:02:00 18 /min [facility] [place] [place] Body height 2022-09-19 16:02:00 154.9 cm [facility] Body weight 2022-09-19 16:02:00 104.327 kg [facility] BMI 2022-09-19 16:02:00 43.46 kg/m2 [facility] Oxygen saturation in Arterial blood by Pulse oximetry 2022-09-19 16:02:00 98 /min [facility] Body weight 2022-09-10 21:39:00 113.399 kg [facility] BMI 2022-09-10 21:39:00 47.24 kg/m2 [facility] Systolic blood pressure 2022-06-12 18:06:00 155 mm[Hg] [facility] Diastolic blood pressure 2022-06-12 18:06:00 84 mm[Hg] [facility] Heart rate 2022-06-12 18:06:00 90 /min [facility] Body temperature 2022-06-12 18:06:[address] [facility] [place] [place] Respiratory rate 2022-06-12 18:06:00 18 /min [facility] [place] [place] Oxygen saturation in Arterial blood by Pulse oximetry 2022-06-12 18:06:00 94 /min [facility] Body weight 2022-06-11 09:20:00 113.49 kg [facility] BMI 2022-06-11 09:20:00 47.27 kg/m2 [facility] Body height 2022-06-11 01:52:00 154.9 cm [facility] Systolic blood pressure 2022-04-19 13:32:00 127 mm[Hg] [place] [facility] Diastolic blood pressure 2022-04-19 13:32:00 67 mm[Hg] [place] [facility] Heart rate 2022-04-19 13:32:00 88 /min [facility] Body height 2022-04-19 13:32:00 154.9 cm [facility] Body weight 2022-04-19 13:32:00 117.028 kg [facility] BMI 2022-04-19 13:32:00 48.75 kg/m2 [facility] Body height 2020-12-18 16:17:00 [...] POCT GLUCOSE (AUTOMATED) 2023-08-30 18:30:[address] [facility] [place] [place] POCT GLUCOSE (AUTOMATED) 2023-08-30 13:51:00 [facility] [place] [place] TROPONIN I 2023-08-30 09:22:[address] [facility] GLYCOSYLATED HEMOGLOBIN (A1C) 2023-08-30 04:51:[address] [facility] [place] TROPONIN I 2023-08-30 04:50:[address] [facility] POCT GLUCOSE (AUTOMATED) 2023-08-30 02:21:[address] [facility] [place] URINE DRUG (IMMUNOASSAY) - COMPREHENSIVE DRUG SCREEN W/O REFLEX 2023-08-30 00:00:[address] [facility] [place] [place] CT ABDOMEN PELVIS W CONTRAST 2023-08-29 23:18:[address] [facility] [place] [place] CT CHEST PULMONARY ANGIOGRAM 2023-08-29 19:11:[address] [facility] [place] URINALYSIS 2023-08-29 17:44:00 Marylou Driver [facility] XR CHEST 1 VW 2023-08-29 17:05:57 Marylou Driver [facility] LIPASE 2023-08-29 16:43:00 Marylou Driver [facility] MAGNESIUM 2023-08-29 16:43:00 Marylou Driver [facility] TROPONIN I 2023-08-29 16:43:00 Marylou Driver [facility] COMP. METABOLIC PANEL (81714) 2023-08-29 16:43:[address] [facility] [place] [place] CBC WITH DIFF 2023-08-29 16:43:00 Marylou Driver [facility] D-DIMER 2023-08-29 16:43:00 Marylou Driver [facility] HB ECG ROUTINE & RHYTHM STRIP 2023-08-29 16:32:[address] [facility] [place] EXTERNAL PROVIDER - ADC CARDIOLOGY 2022-12-31 05:01:00 Doctor Unassigned, [place] [facility] [place] [place] EXTERNAL PROVIDER - ADC REFERRAL 2022-12-20 05:01:00 Doctor Unassigned, [place] [facility] [place] [place] TIME OR (NON-REPORTABLE) 2022-09-23 14:53:[address] [facility] [place] TIME OR (NON-REPORTABLE) 2022-09-23 14:53:[address] [facility] [place] MAJOR JOINT INJECTION 2022-09-23 13:32:[address] [facility] [place] POCT GLUCOSE (AUTOMATED) 2022-09-23 12:50:[address] [facility] [place] POCT GLUCOSE (AUTOMATED) 2022-09-23 12:50:[address] [facility] [place] HB ABO GROUPING 2022-09-23 12:45:[address] [facility] [place] HB ABO GROUPING 2022-09-23 12:45:[address] [facility] [place] DAY SURGERY - ADC 2022-09-23 06:01:00 Doctor Rena ssigned, [place] [facility] [place] TROPONIN I 2022-09-19 15:38:[address] [facility] XR CHEST 2 VW 2022-09-19 14:38:32 Kayla Lutz Un [facility] ASSIGNMENT OF BENEFITS 2022-09-19 14:20:21 Docto r Unassigned, [place] [facility] [place] EXTERNAL PROVIDER RECORDS 2022-09-17 06:01:00 Doctor Unassigned, [place] [facility] [place] ASSIGNMENT OF BENEFITS 2022-09-10 21:32:35 Docto r Unassigned, [place] [facility] [place] POCT GLUCOSE (AUTOMATED) 2022-06-12 18:08:[address] [facility] [place] BASIC METABOLIC PANEL (NA, K, CL, CO2, GLUCOSE, BUN, CREATININE, CA) 2022-06-12 09:27:[address] [facility] [place] CBC WITH DIFF 2022-06-12 09:27:00 Jimmy Rowland Un [facility] POCT GLUCOSE (AUTOMATED) 2022-06-12 07:56:[address] [facility] [place] POCT GLUCOSE (AUTOMATED) 2022-06-12 01:45:[address] [facility] [place] POCT GLUCOSE (AUTOMATED) 2022-06-11 22:56:[address] [facility] [place] POCT GLUCOSE (AUTOMATED) 2022-06-11 18:11:00 [facility] [place] [place] POCT GLUCOSE (AUTOMATED) 2022-06-11 14:05:[address] [facility] [place] PHOSPHORUS 2022-06-11 10:40:[address] [facility] CREATINE KINASE 2022-06-11 10:40:00 Robbi Muro [facility] AMYLASE 2022-06-11 10:40:[address] [facility] LIPASE 2022-06-11 10:40:[address] [facility] MAGNESIUM 2022-06-11 10:40:[address] [facility] COMP. METABOLIC PANEL ([id number]) 2022-06-11 10:40:[address] [facility] [place] CBC WITH DIFF 2022-06-11 10:40:00 Robbi Muro [facility] GLYCOSYLATED HEMOGLOBIN (A1C) 2022-06-11 10:40:[address] [facility] [place] N-TERMINAL PRO-BNP 2022-06-11 10:40:[address] [facility] [place] POCT GLUCOSE (AUTOMATED) 2022-06-11 07:56:[address] [facility] [place] URINE CULTURE 2022-06-11 05:18:00 Robbi Muro [facility] PROTHROMBIN TIME / INR 2022-06-11 03:24:[address] [facility] [place] LACTIC ACID WHOLE BLOOD 2022-06-11 03:18:[address] [facility] [place] C-REACTIVE PROTEIN 2022-06-11 03:17:[address] [facility] [place] SEDIMENTATION RATE 2022-06-11 03:17:[address] [facility] [place] PROCALCITONIN 2022-06-11 03:17:00 Robbi Muro [facility] US OVARY TORSION 2022-06-10 22:01:56 [facility] 2022-06-10 19:14:[address] [facility] CT ABDOMEN PELVIS WO CONTRAST 2022-06-10 18:36:[address] [facility] [place] PHOSPHORUS 2022-06-10 17:54:[address] [facility] URIC ACID 2022-06-10 17:54:[address] [facility] LIPASE 2022-06-10 17:54:[address] [facility] MAGNESIUM 2022-06-10 17:54:[address] [facility] FERRITIN SERUM 2022-06-10 17:54:00 Robbi Muro [facility] HEPATIC FUNCTION PANEL ([id number]) (ALB,T.PRO,BILI T,BU/BC,ALT,AST,ALK PHOS) 2022-06-10 17:54:[address] [facility] [place] BASIC METABOLIC PANEL (NA, K, CL, CO2, GLUCOSE, BUN, CREATININE, CA) 2022-06-10 17:54:[address] [facility] [place] IRON PANEL 2022-06-10 17:54:[address] [facility] CBC WITH DIFF 2022-06-10 17:54:00 Brodie Clemons [facility] N-TERMINAL PRO-BNP 2022-06-10 17:54:[address] [facility] [place] CONSENT/REFUSAL FOR DIAGNOSIS AND TREATMENT 2022-06-10 17:38:54 Doctor Unassigned, [place] [facility] [place] [place] Encounters Start Date/Time End Date/Time Encounter Type Admission Type Attending Clinicians Care Facility Care Department Encounter ID Source 2023-09-16 15:59:01 Outpatient Nathan Estefanytimur GUTIERREZ [facility] [id number] [facility] 2023-09-15 13:03:00 [address] Evansa [address]DA [facility] [id number] [facility] 2023-01-10 09:10:[address] [facility] [id number] [facility] 2023-01-07 11:56:[address] [facility] [id number] [facility] 2022-12-24 16:13:00 [facility] [id number] [facility] 2022-01-04 12:25:16 Outpatient KAYLA MAGDALENO [facility] [id number] [facility] 2021-08-29 12:51:44 Outpatient [facility] [id number] [facility] 2021-08-29 11:59:56 Outpatient [facility] [id number] [facility] 2021-08-29 11:28:05 Outpatient STLMLC ST[facility] [id number] [facility] 2021-08-29 11:27:12 Outpatient STLMLC ST[facility] [id number] [facility] 2021-06-01 02:46:06 Emergency [facility] [id number] [facility] 2020-12-18 09:37:27 Outpatient [facility] [id number] [facility] 2020-12-18 09:37:27 Outpatient [facility] [id number] [facility] 2020-12-18 09:37:27 Outpatient [facility] [id number] [facility] 2020-12-15 12:03:34 Outpatient [facility] [id number] [facility] 2020-12-15 12:03:34 Outpatient [facility] [id number] [facility] 2020-12-15 12:00:05 Outpatient [facility] [id number] [facility] 2020-12-09 04:06:39 Outpatient LACEY CLEMENTS [facility] [id number] [facility] 2023-12-17 00:00:00 2023-12-17 00:00:00 (PO) Post Op STLMLC ST[facility] [id number] [facility] 2023-12-11 00:00:00 2023-12-11 00:00:00 (TEL) STLMLC STLMLC [id number] [facility] 2023-12-01 00:00:00 2023-12-01 00:00:00 (TEL) STLMLC STLMLC [id number] [facility] 2023-11-28 00:00:00 2023-11-28 00:00:00 (F/U) Follow Up Visit STLMLC STLML[facility] [id number] [facility] 2023-11-28 00:00:00 2023-11-28 00:00:00 (TEL) STLMLC STLMLC [id number] [facility] 2023-10-22 00:00:00 2023-10-22 00:00:00 Outpatient R BREE WELSH [facility] [id number] [facility] 2023-09-18 00:00:00 2023-09-18 00:00:00 (ESTPT) Establishe d Patient STLMLC STLMLC [id number] [facility] 2023-09-03 00:00:00 2023-09-03 00:00:00 Patient Secure Msg Doctor Unassigned, [place] [facility] 1..114 350.1.13.10 4.2.7.2.686 [id number] [facility] 2023-09-01 00:00:00 2023-09-01 00:00:00 Transition of Care Veronika Espinoza [facility] 1..114 350.1.13.10 4.2.7.2.686 [id number] [facility] 2023-08-29 10:29:00 2023-08-30 14:13:00 Outpatient X ANNAMARIA BARKRE [facility] [id number] [facility] 2023-08-29 10:29:00 2023-08-30 14:13:00 Emergency Dreanuradha, Annamaria Burgos [facility] 1..114 350.1.13.10 4.2.7.2.686 [id number] [facility] 2023-08-30 00:00:00 2023-08-30 00:00:00 Telephone Bree Welsh [facility] 1..114 350.1.13.10 4.2.7.2.686 [id number] [facility] 2023-05-23 00:00:00 2023-05-23 00:00:00 (PO) Post Op STLMLC STLMLC [id number] [facility] 2023-05-07 00:00:00 2023-05-07 00:00:00 NON-BILLAB LE VISIT STLMLC STLMLC [id number] [facility] 2023-04-29 00:00:00 2023-04-29 00:00:00 (TEL) STLMLC STLMLC [id number] [facility] 2023-04-08 00:00:00 2023-04-08 00:00:00 (TEL) STLMLC STLMLC [id number] [facility] 2023-04-03 00:00:00 2023-04-03 00:00:00 (TEL) STLMLC STLMLC [id number] [facility] 2023-03-19 00:00:00 2023-03-19 00:00:00 (TEL) STLMLC STLMLC [id number] [facility] 2023-03-17 00:00:00 2023-03-17 00:00:00 OFFICE VISIT ESTAB PT LEVEL 3 STLMLC STLMLC [id number] [facility] 2023-01-13 00:00:00 2023-01-13 00:00:00 OFFICE VISIT ESTAB PT LEVEL 3 [facility] STL[facility]C [id number] [facility] 2023-01-07 00:00:00 2023-01-07 00:00:00 OFFICE VISIT ESTAB PT LEVEL 4 STLMLC STLMLC [id number] [facility] 2022-12-31 00:00:00 2022-12-31 00:00:00 [facility] [id number] 350.1.13.10 4.2.7.2.686 [id number] [facility] 2022-12-31 00:00:00 2022-12-31 00:00:00 Orders Only Doctor Unassigned, [place] [facility] 1.0.114 350.1.13.10 4.2.7.2.686 [id number] [facility] 2022-12-27 09:20:00 2022-12-27 09:20:00 [facility] 1..114 350.1.13.10 4.2.7.2.686 [id number] [facility] 2022-12-27 09:20:00 2022-12-27 09:12:16 Outpatient R [facility] [id number] [facility] 2022-12-26 09:40:00 2022-12-26 09:40:00 Outpatient R BILLY [facility] [id number] [facility] 2022-12-20 00:00:00 2022-12-20 00:00:00 Orders Only Doctor Unassigned, [place] [facility] 1.84.114 350.1.13.10 4.2.7.2.686 [id number] [facility] 2022-09-23 06:38:00 2022-09-23 09:05:00 Outpatient R KAYLA LUTZ [facility] [id number] [facility] 2022-09-23 06:38:00 2022-09-23 09:05:00 Hospital Encounter Kayla Lutz [facility] 1.84.114 350.1.13.10 4.2.7.2.686 [id number] [facility] 2022-09-23 07:25:00 2022-09-23 07:50:00 Surgery Kayla Lutz [facility] 1.2.840.114 350.1.13.10 4.2.7.2.686 [id number] [facility] 2022-09-23 00:00:00 2022-09-23 00:00:00 Orders Only Doctor Unassigned, [place] [facility] 1.2.840.114 350.1.13.10 4.2.7.2.686 [id number] [facility] 2022-09-20 00:00:00 2022-09-20 00:00:00 Telephone Bernice Colunga [facility] 1.2840.114 350.1.13.10 4.2.7.2.686 [id number] [facility] 2022-09-19 10:05:00 2022-09-19 11:39:00 Emergency X PEDRO LUIS [place] PEDRO LUIS [facility] ERT [id number] [facility] 2022-09-19 10:05:00 2022-09-19 11:39:00 Emergency RushingPedro Luis oliver [facility] 1.2840.114 350.1.13.10 4.2.7.2.686 [id number] [facility] 2022-09-19 10:15:00 2022-09-19 10:30:00 Hay Farmer Visit Pob, Adc Lab Main Kayla Lutz [facility] 1.2840.114 350.1.13.10 4.2.7.2.686 [id number] [facility] 2022-09-19 08:22:49 2022-09-19 10:04:00 Hospital Encounter Kayla Lutz [facility] 1.2840.114 350.1.13.10 4.2.7.2.686 [id number] [facility] 2022-09-19 08:21:46 2022-09-19 08:21:46 Outpatient R KAYLA LUTZ [facility] [id number] [facility] 2022-09-19 00:00:00 2022-09-19 00:00:00 Orders Only Doctor Unassigned, [place] [facility] 1.2840.114 350.1.13.10 4.2.7.2.686 [id number] [id number] [facility] 2022-09-17 00:00:00 2022-09-17 00:00:00 Orders Only Doctor Unassigned, [place] [facility] 1.2840.114 350.1.13.10 4.2.7.2.686 [id number] [facility] 2022-09-16 00:00:00 2022-09-16 00:00:00 Prep For Surgery Kayla Lutz [facility] 1.2.840.114 350.1.13.10 4.2.7.2.686 [id number] [facility] 2022-09-10 16:30:00 2022-09-10 23:59:00 Outpatient R BERNICE COLUNGA [facility] [id number] [facility] 2022-09-10 16:00:00 2022-09-10 16:15:00 Office Visit Bernice Colunga [facility] 1.2.840.114 350.1.13.10 4.2.7.2.686 [id number] [facility] 2022-09-10 00:00:00 2022-09-10 00:00:00 Orders Only Doctor Unassigned, [place] [facility] 1.2840.114 350.1.13.10 4.2.7.2.686 [id number] [facility] 2022-09-10 00:00:00 2022-09-10 00:00:00 Telephone Keanu [facility] GREGOR?[facility] 1.840.114 350.1.13.10 4.2.7.2.686 [id number] 198 [id number] [facility] 2022-09-09 00:00:00 2022-09-09 00:00:00 Telephone Keanu [facility] 1.84.114 350.1.13.10 4.2.7.2.686 [id number] [facility] 2022-06-13 00:00:00 2022-06-13 00:00:00 Transition of Care Chelo Cornejo 1.84.114 350.1.13.10 4.2.7.2.686 [id number] [facility] 2022-06-10 11:37:00 2022-06-12 16:00:00 Outpatient ANNAMARIA RAY [facility] [id number] [facility] 2022-06-10 11:37:00 2022-06-12 16:00:00 Emergency Brodie Clemons David [facility] 1.84.114 350.1.13.10 4.2.7.2.686 [id number] [facility] 2022-04-19 08:55:00 2022-04-19 23:59:00 Outpatient R KEANU BERNICE [facility] [id number] [facility] 2022-04-19 08:55:00 2022-04-19 23:59:00 Outpatient R KEANU [facility] [id number] [facility] 2022-04-19 08:45:00 2022-04-19 09:00:00 Office Visit Keanu [facility] GREG[facility] 1.840.114 350.1.13.10 4.2.7.2.686 [id number] [facility] 2022-02-25 15:15:00 2022-02-25 15:15:00 Outpatient R BERNICE COLUNGA [facility] [id number] [facility] 2022-02-21 10:45:00 2022-02-21 10:45:00 Outpatient R BERNICE COLUNGA [facility] [id number] [facility] 2022-02-18 10:30:00 2022-02-18 10:30:00 Outpatient R FILIPE WIGGINS [facility] [id number] [facility] 2022-01-18 10:00:00 2022-01-18 10:00:00 Outpatient R CLAYTON GARRIDO [facility] [id number] [facility] 2022-01-17 00:00:00 2022-01-17 00:00:00 RefKayla Dietrich [facility] 1..840.114 350.1.13.10 4.2.7.2.686 [id number] [facility] 2022-01-14 06:59:00 2022-01-14 09:15:00 Outpatient KAYLA MAGDALENO [facility] S[facility] [id number] [facility] 2022-01-14 06:59:00 2022-01-14 09:15:00 Hospital Encounter Kayla Lutz [facility] 1.2.840.114 350.1.13.10 4.2.7.2.686 [id number] [facility] 2022-01-14 08:20:00 2022-01-14 09:12:00 Surgery Kayla Lutz [facility] 1.2.840.114 350.1.13.10 4.2.7.2.686 [id number] [facility] 2022-01-14 08:25:00 2022-01-14 08:39:00 Anesthesia Event LorinChrystalBharath Marilee Oliver Fajardo [facility] 1.20.114 350.1.13.10 4.2.7.2.686 [id number] [facility] 2022-01-14 00:00:00 2022-01-14 00:00:00 Orders Only Doctor Unassigned, [place] [facility] 1.2840.114 350.1.13.10 4.2.7.2.686 [id number] [id number] [facility] 2022-01-11 07:39:32 2022-01-11 23:59:00 Hospital Encounter Kayla Lutz [facility] 1.2840.114 350.1.13.10 4.2.7.2.686 [id number] [facility] 2022-01-11 07:39:18 2022-01-11 23:59:00 Outpatient R LUTZKAYLA CADET [facility] [id number] [facility] 2022-01-11 08:30:00 2022-01-11 08:45:00 Hay Farmer Visit Pob, Adc Lab Main Kayla Lutz [facility] 1..114 350.1.13.10 4.2.7.2.686 [id number] [facility] 2022-01-11 08:15:00 2022-01-11 08:30:00 Laboratory Only Only, Adc Test Kayla Lutz [facility] 1.2.114 350.1.13.10 4.2.7.2.686 [id number] [facility] 2022-01-11 08:15:00 2022-01-11 08:15:00 Outpatient R LUTZKAYLA CADET [facility] [id number] [facility] 2022-01-11 00:00:00 2022-01-11 00:00:00 Telephone Kayla Lutz [facility] 1.2.840.114 350.1.13.10 4.2.7.2.686 [id number] [facility] 2022-01-04 11:15:00 2022-01-04 11:30:00 Office Visit Bernice Colunga [facility]?NATY [facility] MEDICAL OFFICE BUILDING 1.2.840.114 350.1.13.10 4.2.7.2.686 [id number] [facility] 2022-01-04 11:15:00 2022-01-04 11:15:00 Outpatient R KEANU [facility] [id number] [facility] 2022-01-04 11:15:00 2022-01-04 11:15:00 Outpatient R KEANU BERNICE [facility] [id number] [facility] 2022-01-04 00:00:00 2022-01-04 00:00:00 Prep For Surgery Kayla Lutz [facility]?NATY [facility] MEDICAL OFFICE BUILDING 1.2.840.114 350.1.13.10 4.2.7.2.686 [id number] [facility] 2021-12-20 10:00:00 2021-12-20 10:00:00 Outpatient R BOLIVAR KAYLA [facility] [id number] [facility] 2021-12-11 00:00:00 2021-12-11 00:00:00 Telephone Kayla Lutz [facility] 1.2.840.114 350.1.13.10 4.2.7.2.686 [id number] [facility] 2021-12-07 10:23:58 2021-12-07 23:59:00 Outpatient R KEANU BERNICE [facility] [id number] [facility] 2021-12-07 10:23:58 2021-12-07 23:59:00 Hospital Encounter Bernice Colunga [facility] 1..114 350.1.13.10 4.2.7.2.686 [id number] [facility] 2021-11-30 10:45:00 2021-11-30 11:13:44 [facility] [id number] [facility] 2021-11-30 10:45:00 2021-11-30 11:13:44 [facility] 1.114 350.1.13.10 4.2.7.2.686 [id number] 198 [id number] [facility] 2021-11-30 10:45:00 2021-11-30 11:13:44 Outpatient R KEANU [facility] [id number] [facility] 2021-11-28 00:00:00 2021-11-28 00:00:00 Telephone Kayla Lutz [facility]ILD[facility] 1.114 350.1.13.10 4.2.7.2.686 [id number] [facility] 2021-11-28 00:00:00 2021-11-28 00:00:00 Orders Only Doctor Unassigned, [place] [facility] 1..114 350.1.13.10 4.2.7.2.686 [id number] [id number] [facility] 2021-11-27 00:00:00 2021-11-27 00:00:00 Telephone Kayla Lutz [facility]?NATY [facility] MEDICAL OFFICE BUILDING 1..114 350.1.13.10 4.2.7.2.686 [id number] [facility] 2021-11-22 00:00:00 2021-11-22 00:00:00 Orders Only Doctor Unassigned, [place] [facility] 1.2840.114 350.1.13.10 4.2.7.2.686 [id number] [id number] [facility] 2021-11-21 00:00:00 2021-11-21 00:00:[address] OFF[facility] BUILD[facility] 1.2840.114 350.1.13.10 4.2.7.2.686 [id number] [facility] 2021-11-21 00:00:00 2021-11-21 00:00:[address] [facility] 1.840.114 350.1.13.10 4.2.7.2.686 [id number] [facility] 2021-11-19 00:00:00 2021-11-19 00:00:[address] [facility] BUILD[facility] 1.2840.114 350.1.13.10 4.2.7.2.686 [id number] [facility] 2021-11-19 00:00:00 2021-11-19 00:00:[address] [facility] OFF[facility] BUILD[facility] 1.2840.114 350.1.13.10 4.2.7.2.686 [id number] 198 [id number] [facility] 2021-11-12 00:00:00 2021-11-12 00:00:[address] [facility] MED[facility] OFF[facility] BUILD[facility] 1.2840.114 350.1.13.10 4.2.7.2.686 [id number] 198 [id number] [facility] 2021-10-29 00:00:00 2021-10-29 00:00:[address] [facility] 1..114 350.1.13.10 4.2.7.2.686 [id number] 198 [id number] [facility] 2021-10-26 00:00:00 2021-10-26 00:00:[address] [facility]Y [facility] MEDICAL OFFICE BUILDING 1.84.114 350.1.13.10 4.2.7.2.686 [id number] [facility] 2021-10-24 09:30:00 2021-10-24 10:20:40 Outpatient R KEANU [facility] [id number] [facility] 2021-10-24 09:30:00 2021-10-24 10:20:40 Office Visit Keanu [facility]REG[facility] 1.84114 350.1.13.10 4.2.7.2.686 [id number] 198 [id number] [facility] 2021-10-24 09:30:00 2021-10-24 10:20:40 Outpatient R KEANU [facility] [id number] [facility] 2021-10-24 09:30:00 2021-10-24 10:20:40 Office Visit Keanu [facility] GREG[facility] 1.84114 350.1.13.10 4.2.7.2.686 [id number] [facility] 2021-10-19 00:00:00 2021-10-19 00:00:00 [facility] 1.84.114 350.1.13.10 4.2.7.2.686 [id number] 198 [id number] [facility] 2021-10-18 00:00:00 2021-10-18 00:00:00 Telephone Keanu [facility]?NATY [facility] MEDICAL OFFICE BUILDING 1.2.840.114 350.1.13.10 4.2.7.2.686 [id number] [facility] 2021-10-12 14:00:00 2021-10-12 15:00:16 Outpatient RENÉE VILLARREAL HOWARD [facility] [id number] [facility] 2021-10-02 00:00:00 2021-10-02 00:00:00 Telephone Keanu [facility]?NATY [facility] MEDICAL OFFICE BUILDING 1.2.840.114 350.1.13.10 4.2.7.2.686 [id number] 198 [id number] [facility] 2021-10-02 00:00:00 2021-10-02 00:00:00 Orders Only Doctor Unassigned, [place] [address].2.840.114 350.1.13.10 4.2.7.2.686 [id number] 009 [id number] [facility] 2021-09-27 00:00:00 2021-09-27 00:00:00 Orders Only Doctor Unassigned, [place] [address].2840.114 350.1.13.10 4.2.7.2.686 [id number] [id number] [facility] 2021-09-24 15:50:00 2021-09-24 23:59:00 Outpatient BERNICE REYES [facility] [id number] [facility] 2021-07-02 00:00:00 2021-07-02 00:00:00 (TEL) STLMLC STLMLC [id number] [facility] 2021-06-27 14:15:00 2021-06-27 14:15:00 Outpatient BERNICE REYES [facility] [id number] [facility] 2021-06-27 14:15:00 2021-06-27 14:15:00 Outpatient R BERNICE COLUNGA [facility] [id number] [facility] 2021-06-27 13:39:57 2021-06-27 13:54:57 Office Visit Kaenu [facility]REG[facility] 1.2.840.114 350.1.13.10 4.2.7.2.686 [id number] 198 [id number] [facility] 2021-06-26 15:45:00 2021-06-26 15:45:00 Outpatient R KEANU [facility] [id number] [facility] 2021-06-26 15:45:00 2021-06-26 15:45:00 Outpatient R KEANU [facility] [id number] [facility] 2021-06-25 00:00:00 2021-06-25 00:00:00 Telephone Keanu [facility] NAL BUILDING 1.2.840.114 350.1.13.10 4.2.7.2.686 [id number] [facility] 2021-05-23 00:00:00 2021-05-23 00:00:00 Telephone Keanu [facility] Gregor?Naty paredes [facility] 1.2.840.114 350.1.13.10 4.2.7.2.686 [id number] [facility] 2021-05-22 13:00:00 2021-05-22 23:59:00 Hospital Encounter [facility]anu [facility] Gregor?Naty paredes [facility] 1.2.840.114 350.1.13.10 4.2.7.2.686 [id number] [facility] 2021-05-22 16:15:00 2021-05-22 14:56:21 Outpatient R COLUNGABERNICE [facility] [id number] [facility] 2021-05-22 16:15:00 2021-05-22 14:56:21 Outpatient R COLUNGABERNICE [facility] [id number] [facility] 2021-05-22 12:47:56 2021-05-22 14:56:21 Office Visit KeanuBernice [facility] Ivon paredes [facility] 1.84.114 350.1.13.10 4.2.7.2.686 [id number] [facility] 2021-05-22 00:00:00 2021-05-22 00:00:00 Orders Only Doctor Unassigned, [place] [facility] 1..114 350.1.13.10 4.2.7.2.686 [id number] [id number] [facility] 2021-04-23 10:10:00 2021-04-23 10:10:00 [id number] 2021-04-23 10:00:06 2021-04-23 10:00:17 Imm/Inj Visit NurseHailey [facility] .84.114 350.1.13.10 4.2.7.2.686 [id number] [facility] 2021-04-02 14:40:00 2021-04-02 14:40:00 [facility] [id number] [facility] 2021-04-02 13:41:25 2021-04-02 13:41:44 Imm/Inj Visit NurseHailey Immuniztoo Resendiz [facility] 1.84.114 350.1.13.10 4.2.7.2.686 [id number] [facility] 2021-01-26 00:00:00 2021-01-26 00:00:00 Lacey Granados [facility] 1.2.840.114 350.1.13.58 9.2.7.2.686 [id number] [facility] 2021-01-26 00:00:00 2021-01-26 00:00:00 Lacey Granados [facility] 1.2.840.114 350.1.13.58 9.2.7.2.686 [id number] 2020-12-18 09:22:21 2020-12-18 12:11:17 Office Visit Timbo Hayward Jonas [facility] 1 1.2.840.114 350.1.13.58 9.2.7.2.686 [id number] [facility] 2020-12-18 09:22:21 2020-12-18 12:11:17 Office Visit Jonas Barker [facility] 1 1.2.840.114 350.1.13.58 9.2.7.2.686 [id number] 2020-09-06 00:00:00 2020-09-06 00:00:00 (TEL) STLMLC STLMLC [id number] [facility] 2020-07-20 00:00:00 2020-07-20 00:00:00 (TEL) STLMLC STLMLC [id number] [facility] 2020-07-12 00:00:00 2020-07-12 00:00:00 (TEL) STLMLC STLMLC [id number] [facility] 2020-06-21 00:00:00 2020-06-21 00:00:00 Outpatient STLMLC STLMLC [id number] [facility] 2020-06-12 00:00:00 2020-06-12 00:00:00 Outpatient STLMLC STLMLC [id number] [facility] 2020-06-06 00:00:00 2020-06-06 00:00:00 Outpatient [facility] [id number] [facility] 2020-01-26 20:05:19 2020-01-26 21:04:[address] [facility] 1.2.840.114 350.1.13.10 4.2.7.2.686 [id number] 2020-01-26 20:05:19 2020-01-26 21:04:[address] [facility] 1.2.840.114 350.1.13.10 4.2.7.2.686 [id number] [facility] 2020-01-26 00:00:00 2020-01-26 00:00:00 Orders Only Doctor Unassigned, [place] [facility] 1.2.840.114 350.1.13.10 4.2.7.2.686 [id number] 2020-01-26 00:00:00 2020-01-26 00:00:00 Orders Only Doctor Unassigned, [place] [facility] 1.2.840.114 350.1.13.10 4.2.7.2.686 [id number] [facility] 2020-01-20 08:00:00 2020-01-20 08:00:00 Outpatient [facility] [id number] [facility] 2020-01-20 00:00:00 2020-01-20 00:00:00 Orders Only Doctor Unassigned, [place] [facility] 1.2.840.114 350.1.13.10 4.2.7.2.686 [id number] [id number] [facility] 2020-01-20 00:00:00 2020-01-20 00:00:00 Orders Only Doctor Unassigned, [place] [facility] 1.2.840.114 350.1.13.10 4.2.7.2.686 [id number] Results Test Description Test Time Test Comments Results Result Co mments [facility] GLUCOSE (AUTOMATED)2023-08-30 13:51:48* Test Item Value Reference Range Interpretation Comme [facility] POCT GLU (test code = 9435662978) 105 mg/dL 70-110 Lab Interpretation (test cod e = 80532-9) Normal [facility] [place]Glycosylated Hemoglobin (A1C)2023-08-30 05:45:04* Test Item Value Reference Range Interpretation Comme [facility] HGB A1C (test code = 4548-4) 6.0 % 4.0-5.7 H SRIRAM (test code = SRIRAM) Reference RangesNormal: <5.7%Prediabetes: 5.7 - 6.4%Diabetes: > 6.5% Lab Interpretation (test code = 48020-0) Abnormal [facility] GLUCOSE (AUTOMATED)2023-08-30 02:23:04* Test Item Value Reference Range Interpretation Comme [facility] POCT GLU (test code = 2024985277) 101 mg/dL 70-110 Lab Interpretation (test cod e = 20298-7) Normal [facility] ABDOMEN PELVIS W [id number] 00:26:53PROCEDURE:CT ABDOMEN PELVIS W CONTRAST ORDERING PHYSICIAN: [...] lesions. Vazquez: (S/I) = seriesnumber / image numberUnAdventHealth Roll[facility] BrookCT CHEST PULMONARY ANGIOGRAM 2023-08-29 19:22:01CT SCAN OF [...] BONES/ CHEST WALL: No aggressive or acute abnormalities.[facility] [place], TXTRANUPAM [id number] 17:47:43* Test Item Value Reference Range Interpretation Comme nts TROPONIN I (test code = 1206280198) 0.001 ng/mL <=0.034 SRIRAM (test code = [...] of biotin. Lab Interpretation (test code = 85332-2) Normal [facility] [place], TXMagnesium2024-01-26 17:36:59* Test Item Value Reference Range Interpretation Comme nts MAGNESIUM (test code = 8243427530) 1.7 mg/dL 1.7-2.4 Lab Interpretation (test cod e = 43977-7) Normal [facility] [place], TXCOMP. METABOLIC PANEL (07421)2023-08-29 17:36:38* Test Item Value Reference Range Interpretation Comme nts NA (test code = 7381715974) 139 mmol/L 135-145 K (test code = 7180149315) 4.1 mmol/L 3.5-5.0 CL (test code = 3211012240) 107 mmol/L 98-108 CO2 TOTAL (test code = 8207684354) 25 mmol/L 23-31 AGAP (test code = 9382193613) 7 2-16 BUN (test code = 1692308961) 13 mg/dL 7-23 GLUCOSE (test code = 5199678291) 114 mg/dL 70-110 H CREATININE (test code = 5870268933) 0.75 mg/dL 0.50-1.04 TOTAL BILI (test code = 8470597454) 0.6 mg/dL 0.1-1.1 CALCIUM (test code = 8384862035) 9.6 mg/dL 8.6-10.6 T PROTEIN (test code = 7088671237) 7.7 g/dL 6.3-8.2 ALBUMIN (test code = 2559051770) 4.1 g/dL 3.5-5.0 ALK PHOS (test code = 4169511961) 121 U/L 34-122 ALTv (test code = 1742-6) 16 U/L 5-35 AST(SGOT) (test code = 9920027821) 24 U/L 13-40 eGFR (test code = 85060-9) 94.7 mL/min/1.73m2 CKD-EPI eGFR (2020). Assuming creatinine has been stable day-to-day for at least three months, the eGFR indicates Category G1 (>= 90 mL/min/1.73 m2) Lab Interpretation (test code = 36050-3) Abnormal [facility] [place], [id number] 17:36:22* Test Item Value Reference Range Interpretation Comme nts LIPASE (test code = 4291428049) 82 U/L 0-220 Lab Interpretation (test cod e = 40599-7) Normal [facility] [place], [id number] 17:34:40* Test Item Value Reference Range Interpretation Comments D-DIMER (test code = 4115313457) 0.96 See_Comment H [Automated message] The system [...] a diagnosis. Lab Interpretation (test code = 63052-1) Abnormal [facility] [place], TXXR CHEST 1 [id number] 17:17:59EXAM: XR CHEST 1 VW 08/29/2023 10:59 AM HISTORY: 53 years-old Female with chest pain . TECHNIQUE: Portable AP view of the chest. COMPARISON: None. FINDINGS: Lines and tubes: None. Cardiomediastinal: The cardiomediastinal silhouette is normal in sizeaccounting for depth of inspiration. Lungs and pleura: Low lung volumes. Noacute infiltrate or effusion. Included osseous structures show no acute abnor mality.[facility] WITH [id number] 17:17:19* Test Item Value Reference Range Interpretation [...] g/dL 31.6-35.1 L RDW-SD (test code = 09588-7) 52.5 fL 39.0-49.9 H RDW-CV (test code = 788-0) 17.5 % 12.0-15.5 H PLT (test code = 777-3) 344 See_Comment [Automated messa ge] The system which generated this result transmitted reference range: 166 - 358 10*3/?L. The reference range was not used to interpret this result as normal/abnormal. MPV (test code = 38778-4) 10.0 fL 9.5-12.9 NRBC/100 WBC (test code = 3812030576) 0.0 See_Comment [Automated me ssage] The system which generated this result transmitted reference range: 0.0 - 10.0 /100 WBCs. The reference range was not used to interpret this result as normal/abnormal. NRBC x10^3 (test code = 7943093738) See_Comment [Automated messa ge] The system which generated this result transmitted reference range: 10*3/?L. The reference range was not used to interpret this result as normal/abnormal. GRAN MAT (NEUT) % (test code = 770-8) 68.0 % IMM GRAN % (test code = 4081658568) 0.20 % LYMPH % (test code = 736-9) 23.8 % MONO % (test code = 5905-5) 6.1 % EOS % (test code = 713-8) 1.6 % BASO % (test code = 706-2) 0.3 % GRAN MAT x10^3(ANC) (test code = 8152035199) 4.14 10*3/uL 1.88-7.09 IMM GRAN x10^3 (test code = 6965567037) 0.00-0.06 LYMPH x10^3 (test code = 731-0) 1.45 10*3/uL 1.32-3.29 MONO x10^3 (test code = 742-7) 0.37 10*3/uL 0.33-0.92 EOS x10^3 (test code = 711-2) 0.10 10*3/uL 0.03-0.39 BASO x10^3 (test code = 704-7) 0.01-0.07 Lab Interpretation (test code = 63133-6) Abnormal [facility] [place] - This is a pre-surgical type and screen. ONCE [id number] 13:38:39* Test Item Value Reference Range Interpretation Comme nts ABO & RH (test code = 20) O Positive Performed at [facility] Laboratory Services - [facility] Blood [address] [place] [address] Free: [phone] No. [id number] IAT (test code = 1185) Negative Performed at [facility] Laboratory Services - [facility] Blood [address] Free: [phone] No. [id number] [facility] [place] - This is a pre-surgical type and screen. ONCE [id number] 13:38:39* Test Item Value Reference Range Interpretation Comme nts ABO & RH (test code = 20) O Positive Performed at [facility] Laboratory Services - [facility] Blood [address] [place] [id number] Free: [phone] No. [id number] IAT (test code = 1185) Negative Performed at [facility] Laboratory [facility] Blood [address] [place], [place] [address]Fwae Free: [phone] No. [id number] [facility] GLUCOSE (AUTOMATED)2022-09-23 12:53:02* Test Item Value Reference Range Interpretation Comme nts POCT GLU (test code = 0195965755) 105 mg/dL 70-110 Lab Interpretation (test cod e = 84201-1) Normal [facility] GLUCOSE (AUTOMATED)2022-09-23 12:53:02* Test Item Value Reference Range Interpretation Comme nts POCT GLU (test code = 3784996654) 105 mg/dL 70-110 Lab Interpretation (test cod e = 74514-4) [id number]:00:16* Test Item Value Reference Range Interpretation Comme nts TROPONIN I (test code = 7199852565) 0.003 ng/mL <=0.034 SRIRAM (test code = [...] of biotin. Lab Interpretation (test code = 02316-1) Normal [facility] GLUCOSE (AUTOMATED)2022-06-12 18:17:12* Test Item Value Reference Range Interpretation Comme nts POCT GLU (test code = 0249273897) 161 mg/dL 70-110 H Lab Interpretation (test cod e = 60796-6) Abnormal [facility] GLUCOSE (AUTOMATED)2022-06-12 08:00:25* Test Item Value Reference Range Interpretation Comme nts POCT GLU (test code = 7886810068) 122 mg/dL 70-110 H Lab Interpretation (test cod e = 99077-7) Abnormal [facility] GLUCOSE (AUTOMATED)2022-06-12 01:58:54* Test Item Value Reference Range Interpretation Comme nts POCT GLU (test code = 0561051562) 124 mg/dL 70-110 H Lab Interpretation (test cod e = 76395-1) Abnormal [facility] GLUCOSE (AUTOMATED)2022-06-11 22:59:46* Test Item Value Reference Range Interpretation Comme nts POCT GLU (test code = 6621713087) 115 mg/dL 70-110 H Lab Interpretation (test cod e = 99019-3) Abnormal [facility] GLUCOSE (AUTOMATED)2022-06-11 22:59:46* Test Item Value Reference Range Interpretation Comme nts POCT GLU (test code = 2285226248) 104 mg/dL 70-110 Lab Interpretation (test cod e = 88036-9) Normal [facility] GLUCOSE (AUTOMATED)2022-06-11 14:11:49* Test Item Value Reference Range Interpretation Comme nts POCT GLU (test code = 5046130173) 91 mg/dL 70-110 Lab Interpretation (test cod e = 30154-0) Normal [facility] [place], TXIRON [id number] 09:07:50* Test Item Value Reference Range Interpretation Comme nts IRON (test code = 6018337285) 39 ug/dL 50-160 L TIBC (test code = 4896560181) 346 ug/dL 250-410 % FE SAT (test code = 6177734075) 11 % 20-50 L Lab Interpretation (test cod e = 33486-6) Abnormal [facility] [place], TXFERRITIN [id number] 08:27:06* Test Item Value Reference Range Interpretation Comme nts FERRITIN (test code = 8855711699) 7.5 ng/mL 11.0-264.0 L SRIRAM (test code = SRIRAM) Biotin has been reported to cause a negative bias, interpret results relative to patient's use of biotin. Lab Interpretation (test code = 70272-6) Abnormal [facility] [place], [place]N-TERMINAL [id number] 08:01:40* Test Item Value Reference Range Interpretation Comme nts NT-proBNP (test code = 9356709014) 39 pg/mL See_Comment [Automated message] The system which generated this result transmitted reference range: <=125. The reference range was not used to interpret this result as normal/abnormal. SRIRAM (test code = SRIRAM) Biotin has been reported to cause a negative bias, interpret results relative to patient's use of biotin. Lab Interpretation (test code = 72312-9) Normal [facility] [place], TXPOCT GLUCOSE (AUTOMATED)2022-06-11 07:59:15* Test Item Value Reference Range Interpretation Comme nts POCT GLU (test code = 5343703140) 141 mg/dL 70-110 H Lab Interpretation (test cod e = 77183-0) Abnormal [facility] [place], TXMAGNESIUM2022-11-08 07:59:15* Test Item Value Reference Range Interpretation Comme nts MAGNESIUM (test code = 4054753397) 1.6 mg/dL 1.7-2.4 L Lab Interpretation (test cod e = 34730-8) Abnormal [facility] [place], TXPHOSPHORUS2022-11-08 07:59:10* Test Item Value Reference Range Interpretation Comme nts PHOSPHORUS (test code = 6501345783) 2.6 mg/dL 2.5-5.0 Lab Interpretation (test cod e = 42737-7) Normal [facility] [place], TXURIC [id number] 07:59:05* Test Item Value Reference Range Interpretation Comme nts URIC ACID (test code = 0172740354) 3.0 mg/dL 2.9-6.0 Lab Interpretation (test cod e = 54563-8) Normal [facility] [place], TXBASI METABOLIC PANEL (NA, K, CL, CO2, GLUCOSE, BUN, CREATININE, CA)2022-06-10 18:34:39* Test Item Value Reference Range Interpretation Comme nts NA (test code = 2500550523) 139 mmol/L 135-145 K (test code = 5784694884) 4.2 mmol/L 3.5-5.0 CL (test code = 2443862570) 105 mmol/L 98-108 CO2 TOTAL (test code = 8427536680) 28 mmol/L 23-31 AGAP (test code = 6677614870) 2-16 BUN (test code = 2877227493) 15 mg/dL 7-23 GLUCOSE (test code = 3061733237) 106 mg/dL 70-110 CREATININE (test code = 4359458741) 0.75 mg/dL 0.50-1.04 CALCIUM (test code = 0840781913) 9.0 mg/dL 8.6-10.6 eGFR (test code = 7388341297) mL/min/1.73m2 SRIRAM (test code = SRIRAM) Association [...] or urine or abnormalities in imaging tests). [facility] [place], TXHEPATIC FUNCTION PANEL (05220) (ALB,T.PRO,BILI T,BU/BC,ALT,AST,ALK PHOS)2022-06-10 18:34:39* Test Item Value Reference Range Interpretation Comme nts TOTAL BILI (test code = 6168134449) 0.4 mg/dL 0.1-1.1 BILI UNCON (test code = 3104960034) 0.2 mg/dL 0.1-1.1 BILI CONJ (test code = 4345995958) 0.0 mg/dL 0.0-0.3 T PROTEIN (test code = 0888974400) 6.9 g/dL 6.3-8.2 ALBUMIN (test code = 5679503686) 4.0 g/dL 3.5-5.0 ALK PHOS (test code = 4755630379) 139 U/L 34-122 H ALTv (test code = 1742-6) 23 U/L 5-35 AST(SGOT) (test code = 4086659353) 21 U/L 13-40 Lab Interpretation (test cod e = 28480-6) Abnormal [facility] [place], TXLIPASE2022-11-07 18:34:39* Test Item Value Reference Range Interpretation Comme nts LIPASE (test code = 2178264270) 108 U/L 0-220 Lab Interpretation (test cod e = 18226-6) Normal [facility] [place], TXCB WITH [id number] 18:27:20* Test Item Value Reference Range Interpretation Comme nts WBC (test code = 6690-2) See_Comment [Automated [employer]] The system which generated this result transmitted reference range: 4.30 - 11.10 10*3/?L. The reference range was not used to interpret this result as normal/abnormal. RBC (test code = 789-8) See_Comment [Automated [employer]] The system which generated this result transmitted [...] 31.8 g/dL 31.6-35.1 RDW-SD (test code = 76356-7) 48.3 fL 39.0-49.9 RDW-CV (test code = 788-0) 15.4 % 12.0-15.5 PLT (test code = 777-3) See_Comment [Automated messa ge] The system which generated this result transmitted reference range: 166 - 358 10*3/?L. The reference range was not used to interpret this result as normal/abnormal. MPV (test code = 86732-8) 10.4 fL 9.5-12.9 NRBC/100 WBC (test code = 5717279746) See_Comment [Automated me ssage] The system which generated this result transmitted reference range: 0.0 - 10.0 /100 WBCs. The reference range was not used to interpret this result as normal/abnormal. NRBC x10^3 (test code = 2024879395) See_Comment [Automated me ssage] The system which generated this result transmitted reference range: 10*3/?L. The reference range was not used to interpret this result as normal/abnormal. GRAN MAT (NEUT) % (test code = 770-8) 62.1 % IMM GRAN % (test code = 5560443811) 0.50 % LYMPH % (test code = 736-9) 29.1 % MONO % (test code = 5905-5) 7.3 % EOS % (test code = 713-8) 0.6 % BASO % (test code = 706-2) 0.4 % GRAN MAT x10^3(ANC) (test code = 2643821010) 5.30 10*3/uL 1.88-7.09 IMM GRAN x10^3 (test code = 0246073548) 0.04 10*3/uL 0.00-0.06 LYMPH x10^3 (test code = 731-0) 2.48 10*3/uL 1.32-3.29 MONO x10^3 (test code = 742-7) 0.62 10*3/uL 0.33-0.92 EOS x10^3 (test code = 711-2) 0.05 10*3/uL 0.03-0.39 BASO x10^3 (test code = 704-7) 0.03 10*3/uL 0.01-0.[address] [facility] [place] Consult Notes Date/Time Note Provider Source 2023-08-30 13:19:15 Associated Order(s): CONSULT [facility]ARDIOLOGY [facility] Cardiology Consult PCP: Estefany Evans Date of Service: 08/30/2023 CHIEF COMPLAINT/reason for consult: Chest pain HISTORY OF PRESENT ILLNESS This is a 53 years old female with past med history of type 2 diabetes and morbid obesity. She came [facility] for chest pain. It is [...] Left 01/14/2022 Surgeon: Kayla Lutz MD; Location: [facility] JOINT SURGERY right shoulder MAJOR JOINT INJECTION Bilateral 09/23/2022 Surgeon: Kayla Lutz MD; Location: [facility] TUBAL LIGATION Family History Problem [...] we can be of further assistance. Bree Welsh MD, FACC, IVAN Creative Strategist Division of Cardiovascular Medicine [facility] [place] [place] [facility] - Health History and Physical Notes Date/Time Note Provider Source 2023-08-29 20:24:02 MEDICINE [facility] ADMIT H&P Date of Service: 08/29/2023 CHIEF [...] Left 01/14/2022 Surgeon: Kayla Lutz MD; Location: [facility] JOINT SURGERY right shoulder MAJOR JOINT INJECTION Bilateral 09/23/2022 Surgeon: Kayla Lutz MD; Location: [facility] TUBAL LIGATION Family History Problem [...] Vitals: 08/29/23 1731 08/29/23 1800 08/29/23 1929 08/29/23 1953 BP: 120/52 121/72 127/69 Pulse: 72 77 [...] principle. TECHNICAL QUALITY: Adequate COMPARISON: CT abdomen/pelvis W/02/[address] ABDOMEN/PELVIS: Lower thorax: The lung [...] Prophylaxis: DVT- enoxaparin Code Status: Full Code [facility] EMERGENCY PHYSICIAN STAFF [facility] Notes Date/Time Note Provider Source 2023-09-02 12:28:06 TRANSITIONAL CARE MANAGEMENT ASSESSMENT 09/02/2023 Jazmín Rowell [id number] Jazmín Rowell is a 53 year old /White female was admitted on 08/29/23 to [facility] SURG. She was discharged on 08/30/23 with discharge disposition of HR- Routine Discharge. Admitting Physician: Annamaria Barker Discharge Diagnosis: Chest pain, unspecified type Linked Episodes Type: Episode: Status: Noted: Resolved: Last update: Updated by: TRANSITION OF CARE TCM Active 08/30/2023 09/02/2023 12:27 PM Veronika Espinoza RN Comments: TCM [id number] outreach documentation: Discharge Assessment Chart Assessed: 09/02/23 TCM Outreach Completed: 09/02/23 Care Transitions Nurse CM made f/u call to patient post-discharge. No answer, call went to voicemail. CM left discreet message with CM's call back information. DEVIN Salazar, RN, CCRN Pricing Supervisor, Transitions of Care [email or web address] Appointments: IFER Espinoza RN [facility] 2023-09-01 14:35:55 Care Transitions Nurse CM made f/u call to patient post-discharge. No answer, call went to voicemail. CM left discreet message with CM's call back information. CM will try again at a later time. DEVIN Salazar, RN, CCRN Pricing Supervisor, Transitions of Care [email or web address] 2023-08-30 18:10:02 The patient was seen in the hospital for chest pain. Previously mildly abnormal nuclear stress test. Will proceed with CT coronary angiography to assess CAD. [facility] 2023-08-30 13:55:38 Problem: Discharge Planning Goal: Adequate for discharge 08/30/2023 135 by Julisa Parikh RN Outcome: Adequate for discharge Problem: Discharge Planning Goal: Adequate for discharge 08/30/2023 135 by Julisa Parikh RN Outcome: Resolved Problem: Discharge Planning Goal: Effective communication 08/30/20231354 by Julisa Parikh RN Outcome: Resolved Problem: Discharge Planning Goal: Effective communication 08/30/2023 135 by Julisa Parikh RN Outcome: Adequate for discharge Problem: Pain Goal: Control of pain at or below patient's documented comfort goal 08/30/2023 135 by Julisa Parikh RN Outcome: Resolved Problem: Pain Goal: Control of pain at or below patient's documented comfort goal 08/30/2023 135 by Julisa Parikh RN Outcome: Adequate for discharge Problem: Pain Goal: Reduction in pain sensation 08/30/2023 135 by Julisa Parikh RN Outcome: Resolved Problem: Pain Goal: Reduction in pain sensation 08/30/2023 135 by Jluisa Parikh RN Outcome: Adequate for discharge Problem: Venous Thromboembolism, (actual or risk of) Goal: Absence of venous thromboembolism (Risk) 08/30/2023 135 by Julisa Parikh RN Outcome: Resolved Problem: Venous Thromboembolism, (actual or risk of) Goal: Absence of venous thromboembolism (Risk) 08/30/2023 135 by Julisa Parikh RN Outcome: Adequate for discharge Problem: Falls, Risk of Goal: Absence of falls 08/30/20231354 by Julisa Parikh RN Outcome: Resolved Problem: Falls, Risk of Goal: Absence of falls 08/30/20231354 by Julisa Parikh RN Outcome: Adequate for discharge [facility] 2023-08-30 01:54:12 Problem: Discharge Planning Goal: [...] Outcome: Progressing as expected IFER Rodriguez RN [facility] 2023-08-29 19:15:25 Report given to Samantha KIDD in M/S. IFER James RN [facility] 2023-08-29 15:10:00 Patient given ice for po challenge, patient actively vomiting immediately after challenge. 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 States N/V started last night. ATCH SUPERVISOR Lillie Pathak RN [facility] 2023-08-29 10:17:00 AdmissionCare Guideline: Vomiting - OBS, Observation Based on the indications selected for the patient, the bed status of Admit to Observation was determined to be MET The following indications were selected as present at the time of evaluation of the patient: - Vomiting that persists despite emergency department care AdmissionCare documentation entered by: Marylou Driver [facility] [employer], 27th edition, Copyright ? [address] [facility] [employer] [facility] All Rights Reserved. [id number]:31:55-06:00 [facility]
[2024-05-18] MEDS ORDERED: ONDANSETRON 4 MG/2 ML VIAL ONE ×3 (04:24→12:21)
[2024-05-18] MEDS ORDERED: MORPHINE 4 MG/ML SYR ONE ×2 (04:24→07:19)
[2024-05-18] MEDS ORDERED: NA CHLORIDE 0.9% 1,000 ML ONE ×2 (04:25→06:00)
[2024-05-18] MEDS ORDERED: FAMOTIDINE 20 MG/2 ML VIAL IV ONE (04:25)
[2024-05-18 04:54] LABS: Absolute Lymphocytes (CBC) 0.8 K/uL (0.7-4.9); Absolute Monocytes 0.4 K/uL (0.1-1.3); Absolute Neutrophil 5.3 K/uL (1.8-8.0); Basophils % 0.2 % (0-1.3); Eosinophils % 0.6 % (0-4.4); Hematocrit 36.7 % (36.0-45.0); Hemoglobin 12.1 g/dL (12.0-15.0); Lymphocytes % 11.4 % (15.3-44.8); MCH 28.7 pg (27.0-35.0); MCV 86.9 fL (80-100); MPV 8.4 fL (7.6-11.3); Monocytes % 6.6 % (3.3-12.3); Neutrophils % 81.2 % (41.7-73.7); Nucleated Red Blood Cells % 0.1 % (0-0); Platelets 262 thou/uL (152-406); RBC Red Blood Cell Count 4.22 M/uL (3.86-4.86); Red Cell Distribution Width 17.1 % (12.1-15.2)
[2024-05-18 04:57] LABS: AST/SGOT 11 U/L (15-37); Albumin 3.2 g/dL (3.4-5.0); Albumin/Globulin Ratio 0.7 (1.1-1.8); Alkaline Phosphatase 122 U/L (45-117); Anion Gap 9.2 mEq/L (5.0-15.0); BUN Blood Urea Nitrogen 13 mg/dL (7-18); Bicarbonate 25 mEq/L (21-32); Bilirubin Total 0.6 mg/dL (0.2-1.0); Globulin 4.7 g/dL (2.3-3.5); Glomerular Filtration Rate 76 ml/min (=/>90); Glucose Level 149 mg/dL (74-106); Lipase 14 U/L (13-75); Potassium 3.2 mEq/L (3.5-5.1); Protein, Total 7.9 g/dL (6.4-8.2); Sodium Level 138 mEq/L (136-145)
[2024-05-18 05:02] LABS: ALT/SGPT < 14 U/L (13-56)
[2024-05-18] MEDS ORDERED: NS KCL 20MEQ 1,000 ML IV ONE (06:00)
[2024-05-18 06:07] LABS: Magnesium 1.6 mg/dL (1.6-2.4); Troponin High Sensitivity 3.6 pg/mL (<58.9)
[2024-05-18 06:26] LABS: Protime INR 1.17
[2024-05-18 06:33] LABS: Specific Gravity > 1.030 (1.005-1.030); Urine Bacteria <20 /HPF (<20); Urine Bilirubin NEGATIVE (Negative); Urine Blood 1+ (Negative); Urine Clarity Clear (Clear); Urine Color Light-Yellow (Yellow); Urine Culture Reflex Order NOT NEEDED; Urine Glucose NEGATIVE (Negative); Urine Ketones NEGATIVE (Negative); Urine Microscopic Reflex YN ORDER UMIC; Urine Mucus 3+ /HPF (None Seen); Urine Nitrite NEGATIVE (Negative); Urine Protein 1+ (Negative); Urine Urobilinogen Normal (Normal); Urine WBC <5 /HPF (<5); Urine pH 6.5 (5.0-7.0)
[2024-05-18 06:34] LABS: Specific Gravity > 1.030 (1.005-1.030)
--- NOTE | 2024-05-18 06:35 | RAD REPORT ---
EXAMINATION: CT ABDOMEN PELVIS WITH IV CONTRAST INDICATION: Female, 54 years old, ABD PAIN COMPARISON(S): 03/29/2024 TECHNIQUE: CT acquisition of the abdomen and pelvis following the administration of IV contrast. Rachelle nal and sagittal reformatted images provided. This exam was performed according to departmental dose-optimization program which includes automated exposure control, adjustment of the mA and/or kV a ccording to patient size, and/or use of iterative reconstruction technique. FINDINGS: SUPPORT DEVICES: None. LOWER CHEST: Mild basilar scarring/atelectasis. Unremarkable imaged heart. Elevated right hemidiaphra gm. ABDOMEN AND PELVIS: Photon starvation results in low [address] and limits assessment. Liver: Diffuse hypoenhancement relative to the spleen. Gallbladder and bile ducts: Postcholecystectomy changes. Pancreas: No acute findings. Unchanged fat density lesion at the uncinate process. Spleen: Normal. Adrenal glands: Normal. Kidneys and ureters: No acute findings. Unchanged nonobstructing 4 mm stone in the mid right collecti ng system. Small bilateral renal cysts without suspicious features. Bladder/Reproductive organs: Obscured by streak artifact. Right ovarian 2.6 cm simple cyst. No other obvious abnormality. GI tract: Small hiatal hernia. Otherwise the distal esophagus, stomach, and duodenum are unremarkable . Dilation of proximal to mid small bowel loops with wall and fold prominence. Gradual tapering to normal caliber in the right upper quadrant, with the distal small bowel mostly decompressed. The appe ndix is normal. The large bowel is mostly decompressed. Vessels: Unremarkable. Lymph nodes: No evident adenopathy. Peritoneum: Trace pelvic ascites. No fluid collection or free air. Abdominal wall: Unchanged small supraumbilical fat-containing hernia. MUSCULOSKELETAL: No acute osseous abnormality. Degenerative change of the spine. Bilateral total hip arthroplasties without evidence of hardware complication. IMPRESSION: 1. Dilated proximal and mid small bowel loops with wall and fold thickening, gradually tapering to normal caliber in the right upper quadrant. Findings are more consistent with ileus and low-grade obstruction. Correlate with symptoms and consider enteric decompression. 2. No other acute abdominopelvic finding. 3. Benign right ovarian 2.6 cm cyst. Additional chronic and incidental findings above. Electronically signed by: Aditya Mathias MD 05/18/2024 06:31 AM CDT Due to temporary technical issues with the PACS/[employer] reporting system, reports are being americo d by the in-house radiologist without review as a courtesy to ensure prompt reporting the interpreting radiologist is fully responsible for the content of the report. Transcribed Date/Time: 05/18/2024 6:35 AM
--- NOTE | 2024-05-18 06:52 | RAD REPORT ---
PROCEDURE: R CHEST 1 VIEW HISTORY: BDOMINAL DISTENTION COMPARISON: 03/29/2024 FINDINGS: The heart appears unremarkable. Streaky left lung base atelectasis. There is no alveolar consolidatio n, effusion or pneumothorax. There are no acute bony or soft tissue abnormalities. Possible right upper quadrant surgical clips. IMPRESSION: No acute cardiopulmonary process. Electronically signed by: Marlo Fernandez MD 05/18/2024 06:27 AM CDT RP Due to temporary technical issues with the PACS/[employer] reporting system, reports are being americo d by the in-house radiologist without review as a courtesy to ensure prompt reporting the interpreting radiologist is fully responsible for the content of the report. Transcribed Date/Time: 05/18/2024 6:52 AM
--- NOTE | 2024-05-18 07:05 | EDPHYS ---
Physician Documentation [facility] Name: Jazmín Perez Age: 54 yrs Sex: Female : 1970 Arrival Date: 05/18/2024 Time: 03:55 Bed 15 Private MD: ED Physician Onel Rausch HPI: 05/18 05:38 This 54 yrs old Female presents to ER via Wheelchair with complaints of jae Abdominal Pain, Abdominal Cramping, Diarrhea. IT LEAD: 04:25 LMP N/A - Post-menopause, Not vc1 Historical: - Allergies: 04:24 Codeine; nauseous; vc1 - PMHx: 04:24 allergies; Anxiety; Diabetes - NIDDM; vc1 - PSHx: 04:24 Right hip; vc1 - Immunization history:: Client reports receiving the 2nd dose of the Covid vaccine, Flu vaccine is up to date. - Infectious Disease History:: Denies. - Social history:: Smoking status: Patient denies any tobacco usage or history of. ROS: 05:39 Constitutional: Negative for fever, chills, and weight loss, Eyes: Negative for injury, jae pain, redness, and discharge, ENT: Negative for injury, pain, and discharge, Neck: Negative for injury, pain, and swelling, Cardiovascular: Negative for chest pain, palpitations, and edema, Respiratory: Negative for shortness of breath, cough, wheezing, and pleuritic chest pain, Back: Negative for injury and pain, : Negative for injury, bleeding, discharge, and swelling, MS/Extremity: Negative for injury and deformity, Skin: Negative for injury, rash, and discoloration, Neuro: Negative for headache, weakness, numbness, tingling, and seizure, Psych: Negative for depression, anxiety, suicide ideation, homicidal ideation, and hallucinations, Allergy/Immunology: Negative for hives, rash, and allergies, Endocrine: Negative for neck swelling, polydipsia, polyuria, polyphagia, and marked weight changes, Hematologic/Lymphatic: Negative for swollen nodes, abnormal bleeding, and unusual bruising, 05:39 Abdomen/GI: Positive for abdominal pain, diarrhea, abdominal cramps, abdominal distension, Exam: 05:39 Constitutional: This is a well developed, well nourished patient who is awake, alert, jae and in no acute distress. Head/Face: Normocephalic, atraumatic. Eyes: Pupils equal round and reactive to light, extra-ocular motions intact. Lids and lashes normal. Conjunctiva and sclera are non-icteric and not injected. Cornea within normal limits. Periorbital areas with no swelling, redness, or edema. ENT: Nares patent. No nasal discharge, no septal abnormalities noted. Tympanic membranes are normal and external auditory canals are clear. Oropharynx with no redness, swelling, or masses, exudates, or evidence of obstruction, uvula midline. Mucous membranes moist. Neck: Trachea midline, no thyromegaly or masses palpated, and no cervical lymphadenopathy. Supple, full range of motion without nuchal rigidity, or vertebral point tenderness. No Meningismus. Chest/axilla: Normal chest wall appearance and motion. Nontender with no deformity. No lesions are appreciated. Cardiovascular: Regular rate and rhythm with a normal S1 and S2. No gallops, murmurs, or rubs. Normal PMI, no JVD. No pulse deficits. Respiratory: Lungs have equal breath sounds bilaterally, clear to auscultation and percussion. No rales, rhonchi or wheezes noted. No increased work of breathing, no retractions or nasal flaring. Back: No spinal tenderness. No costovertebral tenderness. Full range of motion. Pelvic Exam: Normal external genitalia. Speculum exam with closed cervical os, no discharge or bleeding noted. Bimanual exam with normal adnexa, no adnexal or cervical motion tenderness. Normal uterus. Female : Normal external genitalia. Skin: Warm, dry with normal turgor. Normal color with no rashes, no lesions, and no evidence of cellulitis. MS/ Extremity: Pulses equal, no cyanosis. Neurovascular intact. Full, normal range of motion. Neuro: Awake and alert, GCS 15, oriented to person, place, time, and situation. Cranial nerves II-XII grossly intact. Motor strength 5/5 in all extremities. Sensory grossly intact. Cerebellar exam normal. Normal gait. 05:39 Abdomen/GI: Inspection: distension, obese Bowel sounds: normal, Palpation: mild abdominal tenderness, moderate abdominal tenderness, in the umbilical area, right upper quadrant, left upper quadrant, right lower quadrant and left lower quadrant, Liver: no appreciated palpable abnormalities, Hernia: not appreciated, 06:10 ECG was reviewed by the Attending Physician. [facility] Vital Signs: 04:10 BP 141 / 110; Pulse 109; Resp 19; Temp 98.5; Pulse Ox 97% on R/A; Weight 96.16 kg (M); oe Height 5 ft. 2 in. (R); Pain 10/10; 05:01 BP 116 / 60; Pulse 99; Resp 17; Pulse Ox 94% ; dd2 06:31 BP 111 / 67; Pulse 92; Resp 17; Pulse Ox 96% ; dd2 08:10 BP 128 / 67; Pulse 80; Resp 17; Pulse Ox 97% on R/A; rs5 09:25 BP 115 / 70; Pulse 84; Resp 16; Pulse Ox 98% on R/A; rs5 04:10 Body Mass Index 38.77 (96.16 kg, 157.48 cm) oe 04:10 Pain Scale: Adult oe MDM: 03:58 Medical Screening Exam initiated jae 06:10 Differential diagnosis: pancreatitis, diverticulitis, viral gastroenteritis, jae gastroenteritis, AAA, appendicitis, bowel obstruction, coronary artery disease, cholecystitis, Cholelithiasis, diverticulitis, Dysmenorrhea, Endometriosis, gastritis, gastroesophageal reflux disease, Hepatitis, Irritable bowel syndrome, Mesenteric ischemia or infarction, myocardia ischemia or infarction, non-specific abd pain, pancreatitis, Peptic Ulcer Disease, Perf. Duodenal Ulcer, Peritonitis, Pyelonephritis, urinary tract infection. Data reviewed: vital signs, nurses notes, lab test result(s), EKG, radiologic studies, CT scan, plain films. Consideration of Admission/Observation Patient was admitted/placed on observation. Escalation of care including admission/observation considered. I considered the following discharge prescriptions or medication management in the emergency department Medications were administered in the Emergency Department. See MAR. Independent interpretation of the following test(s) in the Emergency Department EKG: See my EKG interpretation above. Test considered but Not performed: MRI: NO MRCP. Care significantly affected by the following chronic conditions: Diabetes, Obesity, ALLERGIES, ANXIETY. 05/18 04:00 Order name: CBC with Diff; Complete Time: 05:08 [facility] 05/18 04:00 Order name: CMP; Complete Time: 05:08 [facility] 05/18 04:00 Order name: Lipase; Complete Time: 05:08 [facility] 05/18 04:00 Order name: Test, Urine; Complete Time: 06:59 [facility] 05/18 04:00 Order name: Urinalysis w/ reflexes; Complete Time: 06:59 jae 05/18 05:26 Order name: Magnesium; Complete Time: 06:59 jae 05/18 05:26 Order name: NT PRO-BNP; Complete Time: 06:59 jae 05/18 05:26 Order name: PT-INR; Complete Time: 06:59 jae 05/18 05:26 Order name: Troponin HS; Complete Time: 06:59 jae 05/18 08:21 Order name: Basic Metabolic Panel EDMS 10/15 08:21 Order name: Basic Metabolic Panel EDMS 10/15 08:22 Order name: Basic Metabolic Panel EDMS 10/15 08:22 Order name: Basic Metabolic Panel EDMS 10/15 08:22 Order name: Basic Metabolic Panel EDMS 10/15 08:22 Order name: Basic Metabolic Panel EDMS 10/15 08:22 Order name: Basic Metabolic Panel EDMS 10/15 08:22 Order name: Basic Metabolic Panel EDMS 10/15 08:22 Order name: CBC with Automated Diff EDMS 10/15 08:22 Order name: CBC with Automated Diff EDMS 10/15 08:22 Order name: CBC with Automated Diff EDMS 10/15 08:22 Order name: CBC with Automated Diff EDMS 10/15 08:22 Order name: CBC with Automated Diff EDMS 10/15 08:22 Order name: CBC with Automated Diff EDMS 10/15 08:22 Order name: CBC with Automated Diff EDMS 10/15 08:22 Order name: CBC with Automated Diff EDMS 10/15 08:22 Order name: Magnesium EDMS 10/15 08:22 Order name: Magnesium EDMS 10/15 08:22 Order name: Magnesium EDMS 10/15 08:22 Order name: Magnesium EDMS 10/15 08:22 Order name: Magnesium EDMS 10/15 08:22 Order name: Magnesium EDMS 10/15 08:22 Order name: Magnesium EDMS 10/15 08:22 Order name: Magnesium EDMS 10/15 08:22 Order name: Phosphorus EDMS 10/15 08:22 Order name: Phosphorus EDMS 10/15 08:22 Order name: Phosphorus EDMS 10/15 08:22 Order name: Phosphorus EDMS 10/15 08:22 Order name: Phosphorus EDMS 10/15 08:22 Order name: Phosphorus EDMS 05/18 08:22 Order name: Phosphorus EDMS 05/18 08:22 Order name: Phosphorus EDHI 05/18 04:00 Order name: CT Abd/Pelvis - IV Contrast Only; Complete Time: 06:59 [facility] 05/18 05:26 Order name: XRAY Chest (1 view); Complete Time: 06:59 [facility] 05/18 07:02 Order name: Abdomen 1 View (KUB) XRAY [facility] 05/18 05:26 Order name: EKG; Complete Time: 05:27 [facility] 05/18 08:21 Order name: CONS Physician Consult [facility] 05/18 04:00 Order name: IV Saline Lock; Complete Time: 04:15 [facility] 05/18 04:00 Order name: Labs collected and sent; Complete Time: 04:15 [facility] 05/18 05:26 Order name: Cardiac monitoring; Complete Time: 05:38 [facility] 05/18 05:26 Order name: EKG - Nurse/Tech; Complete Time: 08:19 [facility] 05/18 05:26 Order name: O2 Per Protocol; Complete Time: 05:38 [facility] 05/18 05:26 Order name: O2 Sat Monitoring; Complete Time: 05:38 [facility] EC:10 Rate is 92 beats/min. Rhythm is regular. QRS [place] is Normal. ME interval is normal. QRS jae interval is normal. QT interval is normal. No Q waves. T waves are Normal. No ST changes noted. Clinical impression: NSR w/ Non-specific ST/T Changes and No evidence of ischemia. Interpreted by me. Reviewed by me. Administered Medications: 04:54 Drug: Famotidine IVP 20 mg IVP once; dilute with 10 mL 0.9% NaCl; give over 2 minutes dd2 Route: IVP; Site: right antecubital; 05:20 Follow up: Response: No adverse reaction rs5 04:55 Drug: Ondansetron IVP 4 mg IVP once; over 2 minutes Route: IVP; Site: right antecubital;dd2 05:20 Follow up: Response: No adverse reaction rs5 04:55 Drug: morphine IVP or IV 4 mg IVP once over 4 mins Route: IVP; Infused Over: 4 mins; dd2 Site: right antecubital; 05:20 Follow up: Response: No adverse reaction; Pain is decreased rs5 04:55 Drug: NS 0.9% IV 1000 ml IV at 1 bolus Per protocol; to be given as a bolus over 60 dd2 minutes Route: IV; Rate: 1 bolus; Site: right antecubital; 06:00 Follow up: IV Status: Completed infusion; IV Intake: 1000ml dd2 06:30 Drug: NS 0.9% IV 1000 ml IV at 1000 ml once; to be given as a bolus over 60 minutes dd2 Route: IV; Rate: 1000 ml; Site: right antecubital; 06:45 Follow up: Response: No adverse reaction dd2 07:35 Follow up: IV Status: Completed infusion; IV Intake: 1000ml rs5 06:30 Drug: NS 0.9% with KCl IV 20 mEq/L 1000 ml IV at 150 ml/hr continuous Route: IV; Rate: dd2 150 ml/hr; Site: right antecubital; 06:45 Follow up: Response: No adverse reaction dd2 09:20 Follow up: IV Status: Order to discontinue infusion; IV Intake: 450ml rs5 07:20 Drug: Ciprofloxacin IVPB 400 mg 200 ml IVPB once over 60 mins Volume: 200 ml; Route: rs5 IVPB; Infused Over: 60 mins; Site: left antecubital; 08:30 Follow up: Response: No adverse reaction; IV Intake: 100ml rs5 07:20 Drug: morphine IVP or IV 4 mg IVP once over 4 mins Route: IVP; Infused Over: 4 mins; rs5 Site: left antecubital; 07:40 Follow up: Response: No adverse reaction; Pain is decreased rs5 07:20 Drug: Ondansetron IVP 4 mg IVP once; over 2 minutes Route: IVP; Site: left antecubital; rs5 07:40 Follow up: Response: No adverse reaction rs5 07:30 Drug: metroNIDAZOLE IVPB 500 mg 100 ml IVPB at 200 ml/hr once over 30 mins Volume: 100 rs5 ml; Route: IVPB; Rate: 200 ml/hr; Infused Over: 30 mins; Site: left antecubital; 08:10 Follow up: Response: No adverse reaction; IV Status: Completed infusion; IV Intake: rs5 100ml Disposition Summary: 05/18/24 07:04 Hospitalization Ordered Notes: Hospitalization Status: Inpatient Admission jae Provider: Donta Garcia jae Condition: Stable jae Problem: new jae Symptoms: have improved jae Bed/Room Type: Standard jae Location: Telemetry/MedSurg (Inpatient)(05/18/24 14:57) bd Room Assignment: 211(05/18/24 14:57) bd Diagnosis - Abdominal pain, unspecified jae - Diarrhea, unspecified jae - Ileus, unspecified - LOW GRADE SMALL BOWEL OBSTRUCTION jae Forms: - Medication Reconciliation Form jae - SBAR form jae - Leadership Thank You Letter jae Signatures: Dispatcher [employer] EDMS Marcial Onel Jolly MD MD cha Calcote, Vanessa RN RN vc1 Raleigh Shabazz, RN RN rs5 ERIC SAM, RN RN dd2 Corrections: (The following items were deleted from the chart) 04:01 04:01 CBC+H.LAB.BRZ ordered. EDMS EDMS 04:01 04:01 COMPREHENSIVE METABOLIC PANEL+C.LAB.BRZ ordered. EDMS EDMS 04:01 04:01 LIPASE+C.LAB.BRZ ordered. EDMS EDMS 04:01 04:01 Test, Urine+UC.LAB.BRZ ordered. EDMS EDMS 04:01 04:01 Urinalysis+U.LAB.BRZ ordered. EDMS EDMS 04:01 04:01 Abdomen Pelvis W Con+CT.RAD.BRZ ordered. EDMS EDMS 05:49 05:27 BASIC METABOLIC PANEL+C.LAB.BRZ ordered. EDMS EDMS 05:49 05:27 HEPATIC FUNCTION+C.LAB.BRZ ordered. EDMS EDMS 08:16 07:02 NG Tube ordered. jae rs5 08:42 07:04 Telemetry/MedSurg (Inpatient) jae bd 08:42 07:04 jae bd 14:57 08:42 [facility] ER HOLD bd bd 14:57 08:42 ERHOLD- bd bd
--- NOTE | 2024-05-18 07:05 | ER ---
Nurse's Notes [facility] Name: Jazmín Perez Age: 54 yrs Sex: Female : 1970 Arrival Date: 05/18/2024 Time: 03:55 Bed 15 Private MD: Diagnosis: Abdominal pain, unspecified;Diarrhea, unspecified;Ileus, unspecified-LOW GRADE SMALL BOWEL OBSTRUCTION Presentation: 05/18 04:23 Chief complaint: Patient states: Feeling bad Friday night, yesterday started getting vc1 really bad diarrhea now I am having really bad stomach pain. Coronavirus screen: Client denies travel out of the [place] in the last 14 days. At this time, the client does not indicate any symptoms associated with coronavirus-19. Ebola Screen: Patient negative for fever greater than or equal to 101.5 degrees Fahrenheit, and additional compatible Ebola Virus Disease symptoms Patient denies exposure to infectious person. Patient denies travel to an Ebola-affected area in the 21 days before illness onset. No symptoms or risks identified at this time. Initial Sepsis Screen: Does the patient meet any 2 criteria? No. Patient's initial sepsis screen is negative. Does the patient have a suspected source of infection? No. Patient's initial sepsis screen is negative. Risk Assessment: Do you want to hurt yourself or someone else? Patient reports no desire to harm self or others. Onset of symptoms was April 16, 2024. 04:23 Method Of Arrival: Wheelchair vc1 04:23 Acuity: LOU 3 vc1 Triage Assessment: 04:26 General: Appears distressed, uncomfortable, obese, well developed, well nourished, vc1 Behavior is cooperative, crying. Pain: Complains of pain in umbilical area, right lower quadrant and left lower quadrant Pain does not radiate. Pain currently is 10 out of 10 on a pain scale. EENT: No deficits noted. No signs and/or symptoms were reported regarding the EENT system. Neuro: Level of Consciousness is awake, alert, obeys commands, Oriented to person, place, time, situation, Appropriate for age. Cardiovascular: No deficits noted. Capillary refill < 3 seconds. Respiratory: Airway is patent Respiratory effort is even, unlabored, Respiratory pattern is regular, symmetrical. GI: Abdomen is round non-distended, Bowel sounds present X 4 quads. Abd is soft Abdomen is tender to palpation Reports lower abdominal pain, upper abdominal pain, diarrhea, epigastric pain. : No deficits noted. No signs and/or symptoms were reported regarding the genitourinary system. Derm: Skin is intact, is healthy with good turgor, Skin is dry, Skin is normal, Skin temperature is warm. Musculoskeletal: No deficits noted. No signs and/or symptoms reported regarding the musculoskeletal system. 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 - Infectious Disease History:: Denies. - Social history:: Smoking status: Patient denies any tobacco usage or history of. Screenin:25 [facility] ED Fall Risk Assessment (Adult) History of falling in the last 3 months, vc1 including since admission No falls in past 3 months (0 pts) Confusion or Disorientation No (0 pts) Intoxicated or Sedated No (0 pts) Impaired Gait No (0 pts) Mobility Assist Device Used No (0 pt) Altered Elimination Yes (1 pt) Score/Fall Risk Level 0 - 2 = Low Risk Oriented to surroundings, Maintained a safe environment, Educated pt \\T\\ family on fall prevention, incl call for assistance when getting out of bed. Abuse screen: Denies injuries from another. Nutritional screening: No deficits noted. Tuberculosis screening: No symptoms or risk factors identified. Assessment: 05:01 Reassessment: SEE TRIAGE ASSESSMENT FOR FULL ASSESSMENT. dd2 06:50 General: Appears in no apparent distress. uncomfortable, Behavior is calm, cooperative. rs5 Pain: Complains of pain in abdomen Pain currently is 8 out of 10 on a pain scale. Quality of pain is described as aching, Is continuous. Neuro: Level of Consciousness is awake, alert, obeys commands, Oriented to person, place, time, situation. Cardiovascular: Patient's skin is warm and dry. Respiratory: Airway is patent Respiratory effort is even, unlabored, Respiratory pattern is regular, symmetrical. GI: Abdomen is round non-distended, Abd is soft and non tender X 4 quads. : No signs and/or symptoms were reported regarding the genitourinary system. EENT: No signs and/or symptoms were reported regarding the EENT system. Derm: Skin is intact, Skin is pink, warm \\T\\ dry. Musculoskeletal: Range of motion: intact in all extremities. 06:51 Reassessment: provider notified pt is experiencing pain . rs5 07:10 Reassessment: to bedside, pt states "I DON'T WANT TO DO THE NG TUBE" provider notified .rs5 08:09 Reassessment: Patient and/or family updated on plan of care and expected duration. Pain rs5 level reassessed. Patient is alert, oriented x 3, equal unlabored respirations, skin warm/dry/pink. 09:17 Reassessment: Patient and/or family updated on plan of care and expected duration. Pain rs5 level reassessed. Patient is alert, oriented x 3, equal unlabored respirations, skin warm/dry/pink. Vital Signs: 04:10 BP 141 / 110; Pulse 109; Resp 19; Temp 98.5; Pulse Ox 97% on R/A; Weight 96.16 kg (M); oe Height 5 ft. 2 in. (R); Pain 10/10; 05:01 BP 116 / 60; Pulse 99; Resp 17; Pulse Ox 94% ; dd2 06:31 BP 111 / 67; Pulse 92; Resp 17; Pulse Ox 96% ; dd2 08:10 BP 128 / 67; Pulse 80; Resp 17; Pulse Ox 97% on R/A; rs5 09:25 BP 115 / 70; Pulse 84; Resp 16; Pulse Ox 98% on R/A; rs5 04:10 Body Mass Index 38.77 (96.16 kg, 157.48 cm) oe 04:10 Pain Scale: Adult oe ED Course: 03:56 Patient arrived in ED. [email or web address] 03:58 Onel Rausch MD is Attending Physician. jae 04:11 ERIC SAM, BERNABE is Primary Nurse. dd2 04:15 Initial lab(s) drawn, by me, sent to lab. Inserted saline lock: 22 gauge in right oe antecubital area, using aseptic technique. Blood collected. Flushed with 10 mL NS. 04:15 CBC with Diff Sent. oe 04:15 CMP Sent. oe 04:15 Lipase Sent. oe 04:15 Test, Urine Sent. oe 04:16 Patient has correct armband on for positive identification. Bed in low position. Call oe light in reach. Side rails up X 1. Door closed. Moved to private room. Pulse ox on. NIBP on. 04:24 Triage completed. vc1 04:27 Urinalysis w/ reflexes Sent. vc1 04:56 No provider procedures requiring assistance completed. dd2 06:01 CT Abd/Pelvis - IV Contrast Only In Process Unspecified. EDMS 06:12 XRAY Chest (1 view) In Process Unspecified. EDMS 06:32 Urine collected: clean catch specimen, cloudy, EKG done, by ED staff, reviewed by Onel bean2 Shalom WOODSON. 07:03 Donta Garcia is Hospitalizing Provider. [facility] 07:05 Report given to BERNABE HATHAWAY. dd2 07:12 Primary Nurse role handed off by ERIC SAM RN bd 07:14 Raleigh Shabazz, BERNABE is Primary Nurse. rs5 09:30 Patient admitted, IV remains in place. rs5 09:30 Provided Education on: discharge instructions . rs5 Administered Medications: 04:54 Drug: Famotidine IVP 20 mg IVP once; dilute with 10 mL 0.9% NaCl; give over 2 minutes dd2 Route: IVP; Site: right antecubital; 05:20 Follow up: Response: No adverse reaction rs5 04:55 Drug: Ondansetron IVP 4 mg IVP once; over 2 minutes Route: IVP; Site: right antecubital;dd2 05:20 Follow up: Response: No adverse reaction rs5 04:55 Drug: morphine IVP or IV 4 mg IVP once over 4 mins Route: IVP; Infused Over: 4 mins; dd2 Site: right antecubital; 05:20 Follow up: Response: No adverse reaction; Pain is decreased rs5 04:55 Drug: NS 0.9% IV 1000 ml IV at 1 bolus Per protocol; to be given as a bolus over 60 dd2 minutes Route: IV; Rate: 1 bolus; Site: right antecubital; 06:00 Follow up: IV Status: Completed infusion; IV Intake: 1000ml dd2 06:30 Drug: NS 0.9% IV 1000 ml IV at 1000 ml once; to be given as a bolus over 60 minutes dd2 Route: IV; Rate: 1000 ml; Site: right antecubital; 06:45 Follow up: Response: No adverse reaction dd2 07:35 Follow up: IV Status: Completed infusion; IV Intake: 1000ml rs5 06:30 Drug: NS 0.9% with KCl IV 20 mEq/L 1000 ml IV at 150 ml/hr continuous Route: IV; Rate: dd2 150 ml/hr; Site: right antecubital; 06:45 Follow up: Response: No adverse reaction dd2 09:20 Follow up: IV Status: Order to discontinue infusion; IV Intake: 450ml rs5 07:20 Drug: Ciprofloxacin IVPB 400 mg 200 ml IVPB once over 60 mins Volume: 200 ml; Route: rs5 IVPB; Infused Over: 60 mins; Site: left antecubital; 08:30 Follow up: Response: No adverse reaction; IV Intake: 100ml rs5 07:20 Drug: morphine IVP or IV 4 mg IVP once over 4 mins Route: IVP; Infused Over: 4 mins; rs5 Site: left antecubital; 07:40 Follow up: Response: No adverse reaction; Pain is decreased rs5 07:20 Drug: Ondansetron IVP 4 mg IVP once; over 2 minutes Route: IVP; Site: left antecubital; rs5 07:40 Follow up: Response: No adverse reaction rs5 07:30 Drug: metroNIDAZOLE IVPB 500 mg 100 ml IVPB at 200 ml/hr once over 30 mins Volume: 100 rs5 ml; Route: IVPB; Rate: 200 ml/hr; Infused Over: 30 mins; Site: left antecubital; 08:10 Follow up: Response: No adverse reaction; IV Status: Completed infusion; IV Intake: rs5 100ml Medication: 04:25 VIS not applicable for this client. vc1 Intake: 06:00 IV: 1000ml; Total: 1000ml. dd2 07:35 IV: 1000ml; Total: 2000ml. rs5 08:10 IV: 100ml; Total: 2100ml. rs5 08:30 IV: 100ml; Total: 2200ml. rs5 09:20 IV: 450ml; Total: 2650ml. rs5 Outcome: 07:04 Decision to Hospitalize by Provider. jae 09:30 Admitted to ER Hold. Please see [facility] for further documentation. rs5 09:30 Condition: stable rs5 09:30 Instructed on the need for admit, Demonstrated understanding of instructions, 17:24 Patient left the ED. rs5 Signatures: Dispatcher [employer] EDMS Jesusita Ceja Corey, MD MD cha Espinosa, [place] oe Jeffries, Jennifer [id number] Elza Prieto RN RN vc1 Raleigh Shabazz RN RN rs5 ERIC SAM RN RN dd2 Corrections: (The following items were deleted from the chart) 07:59 07:59 morphine IVP or IV 4 mg IVP in left antecubital over 4 mins rs5 rs5 08:00 07:59 Ondansetron IVP 4 mg IVP in left antecubital rs5 rs5 19:08 10:10 BP 115 / 70; Pulse 84bpm; Resp 16bpm; Pulse Ox 98% RA; rs5 rs5
[2024-05-18] MEDS ORDERED: Ciprofloxacin 200mg IV 400 MG/200 ML IV.SOLN. IV ONE (07:19)
[2024-05-18] MEDS ORDERED: METRONIDAZOLE 500mg IVPB 500 MG/100 ML BAG IV ONE (07:20)
[2024-05-18] MEDS ORDERED: HYDRALAZINE HCL 20 MG/ML VIAL IV PRN (08:15)
--- NOTE | 2024-05-18 08:20 | P.HP ---
Certification for Inpatient Patient admitted to: Inpatient With expected LOS: >2 Midnights Patient will require the following post-hospital care: None Practitioner: I am a practitioner with admitting privileges, knowledge of patient current condition, hospital course, and medical plan of care. Services: Services provided to patient in accordance with Admission requirements found in Title 42 Section 412.3 of the Code of Federal Regulations Patient History Date of Service: 05/18/24 Reason for admission: Ileus vs SBO History of Present Illness: Jazmín Perez is a 54 year old female with Pmhx of osteoarthritis, rheumatoid arthritis, diabetes mellitusIDDM recently started Mounjaro who presented to the ED with chief complaint of epigastric pain, diarrhea that started on Friday. She reports not having an episode similar to this in the past, but has been nervous about using mounjaro feels mounjaro is the problem. On examination, tenderness to epigastric area, no acute distress, hemodynamically stable, afebrile. Labs evaluation potassium 3.2, serum glucose 149, UA negative for infectious process. CT abdomen pelvis reports "Dilated proximal and mid small bowel loops with wall and fold thickening, gradually tapering to normal caliber in the right upper quadrant. Findings are more consistent with ileus and low-grade obstruction. Chest x-ray reports "No acute cardiopulmonary process." Jazmín will be admitted to hospitalist service for further evaluation and treatment, Dr. Hernández consulted. Allergies codeine Adverse Reaction (Mild, Verified 11/28/23 08:56) Nausea/Vomiting Home Medications: Celecoxib 200 mg PO BID 11/28/23 Cyclobenzaprine [Flexeril*] 10 mg PO BID 11/28/23 Dapagliflozin/Metformin HCl [Xigduo Xr 10 mg-1,000 mg Tab] 1 each PO DAILY 11/28/23 Diclofenac Sodium [Diclofenac Sodium ER] 100 mg PO DAILY 11/28/23 Duloxetine HCl 30 mg PO DAILY 11/28/23 Fesoterodine Fumarate [Fesoterodine Fumarate ER] 8 mg PO DAILY 11/28/23 Gabapentin 800 mg PO TID 11/28/23 Semaglutide [Ozempic] 2 mg SQ Q7D 11/28/23 Docusate [Colace Cap*] 100 mg PO DAILY PRN #30 cap 12/05/23 Hydrocodone 10/APAP 325 [[place] 10/325] 1 tab PO Q6H PRN #30 tab 12/05/23 clonazePAM [Klonopin*] 0.5 mg PO BEDTIME PRN #20 tab 12/05/23 clonazePAM [Klonopin] 0.5 mg PO BEDTIME PRN PRN #30 tab 12/05/23 Ondansetron [Zofran] 4 mg PO Q6H PRN 10 Days #30 tab 12/08/23 - Past Medical/Surgical History Diabetic: Yes -: diabetes -: rheumatoid arthritis -: osteoarthritis -: BLADDER SPASMS -: left total hip replacement 2022 -: right rotator cuff repair Psychosocial/ Personal History: Patient lives at home with her , family - Family History Mother -: Diabetes, Other (see notes) Notes: osteoarthritis Father -: Diabetes - Social History Alcohol use: No CD- Drugs: No Caffeine use: Yes Review of Systems Gastrointestinal: Abdominal Pain, Diarrhea Physical Examination - Physical Exam General: Alert, In no apparent distress, Oriented x3 HEENT: Atraumatic, Normocephalic, PERRLA Neck: 2+ carotid pulse no bruit, JVD not distended Respiratory: Clear to auscultation bilaterally, Normal air movement Cardiovascular: Normal pulses, Normal S1 S2, Irregular heart rate/rhythm (mild tachycardia) Capillary refill: <2 Seconds Gastrointestinal: Normal bowel sounds, Soft and benign, Distended (obese) Musculoskeletal: No clubbing Integumentary: No rashes Neurological: Normal speech, Normal tone, Other (tearful) - Studies Laboratory Data (last 24 hrs) 05/18/24 05/18/24 05/18/24 06:05 04:12 04:12 WBC Hgb Hct Plt Count PT 13.0 H INR 1.17 Sodium Cancelled 138 Potassium Cancelled 3.2 L BUN Cancelled 13 Creatinine Cancelled 0.90 Glucose Cancelled 149 H Magnesium 1.6 Total Bilirubin Cancelled 0.6 AST Cancelled 11 L ALT Cancelled < 14 Alkaline Phosphatase Cancelled 122 H Lipase 14 05/18/24 04:12 WBC 6.60 Hgb 12.1 Hct 36.7 Plt Count 262 PT INR Sodium Potassium BUN Creatinine Glucose Magnesium Total Bilirubin AST ALT Alkaline Phosphatase Lipase Assessment and Plan - Plan Assessment and plan Acute ileus versus small bowel obstruction -CT abdomen pelvis reports "Dilated proximal and mid small bowel loops with wall and fold thickening, gradually tapering to normal caliber in the right upper quadrant. Findings are more consistent with ileus and low-grade obstruction. -lipase 14 -N.p.o. -No nasogastric tube at this time, Dr. Hernández discussed the need but will wait for now -Dr. Hernández consulted and is following -IV fluids with D5 1/2 NS while n.p.o. -Cipro and Flagyl -Pain control Hypokalemia -K 3.2 -Replaced in the ED -Monitor in AM labs -Replace PRN Diabetes mellitusIDDM -Newly started Mounjaro -Serum glucose 149 -Accu-Chek every 6 hours while NPO -N.p.o. -Hold SSI Osteoarthritis Rheumatoid arthritis Anxiety -Continue home medications when taking p.o. DVT PPx heparin Full code LOS 2 days Discharge Plan: Home Plan to discharge in: 48 Hours - Advance Directives Does patient have a Living Will: No Does patient have a Durable POA for Healthcare: No
[2024-05-18] MEDS: HEPARIN 5000 UNIT/ML 1 ML VIAL SQ SCH (09:00)
[2024-05-18] MEDS: D5 0.45 NS 1,000 ML IV SCH (09:00)
[2024-05-18] MEDS: HYDROMORPHONE HCL 1 MG/ML INJ IV PRN (09:20)
[2024-05-18] MEDS ORDERED: HYDROMORPHONE HCL 1 MG/ML INJ ONE (09:42)
[2024-05-18] MEDS: PNEUMOCOCCAL VACCINE 0.5 ML IMVAC ONE (12:00)
[2024-05-18] MEDS: ONDANSETRON 4 MG/2 ML VIAL IV PRN (12:20)
--- NOTE | 2024-05-18 12:21 | CON ---
Date of Consultation: 05/18/2024 Reason For Consultation: Abdominal pain. History Of Present Illness: The patient is a 54-year-old female who presented to the emergency room with 1-day history of diarrhea followed by epigastric abdominal pain, cramping. No nausea or vomitin g. No blood in her stool. No dysuria or hematuria. No sore throat, runny nose, cough, headaches, o r dizziness. No chest pain. No fevers or chills, and no anorexia. Review of Systems: Otherwise, unremarkable. Past Medical History: Significant for diabetes, anxiety. Allergies: INCLUDE CODEINE. Past Surgical History: Significant for right hip surgery and cholecystectomy. Social History: The patient does not smoke or drink alcohol. Family History: Noncontributory. Physical Examination: Vital Signs: Stable, currently, and she is afebrile. General: She is awake, alert, oriented x3. Head and Neck: No masses. Chest: Clear. Heart: S1, S2. Abdomen: Soft, nondistended. Positive bowel sounds. Minimal epigastric tenderness and left upper q uadrant tenderness. No rebound, rigidity, or guarding. Extremities: Adequately perfused. Nontender. Neuro: Nonfocal. Imaging: CT scan of the abdomen and pelvis revealed postcholecystectomy changes. There is dilatatio n of the proximal to mid small bowel wall loops with wall and fold prominence, gradual tapering to no rmal caliber in the right upper quadrant and distal small bowel was decompressed. Assessment: 54-year-old female, likely with gastroenteritis and ileus. Recommendations: Hydration, empiric antibiotics, serial abdominal exam. Followup x-ray tomorrow. I f she vomits, she will need NG tube. No acute need for any surgical intervention, at this time. Tahir n of care discussed with the patient as well as the hospitalist team. /MODL Voice ID: [id number] Report ID: [id number]
[2024-05-18] MEDS ORDERED: PROMETHAZINE INJ 25 MG/ML AMP ONE (13:58)
[2024-05-18] MEDS: METRONIDAZOLE 500mg IVPB 500 MG/100 ML BAG IV SCH (17:00)
[2024-05-18 19:44] VITALS: O2SAT 97
[2024-05-18] MEDS: Ciprofloxacin 200mg IV 400 MG/200 ML IV.SOLN. IV SCH (20:26)
[2024-05-19] MEDS: DIPHENHYDRAMINE 50 MG/ML VIAL ONE (00:31)
[2024-05-19] MEDS: DIPHENHYDRAMINE 50 MG/ML VIAL IV PRN (00:36)
[2024-05-19 05:40] LABS: Absolute Eosinophils 0.1 K/uL (0-0.5); Absolute Lymphocytes (CBC) 0.8 K/uL (0.7-4.9); Absolute Monocytes 0.4 K/uL (0.1-1.3); Absolute Neutrophil 2.5 K/uL (1.8-8.0); Basophils % 0.3 % (0-1.3); Eosinophils % 3.6 % (0-4.4); Hematocrit 29.1 % (36.0-45.0); Hemoglobin 9.6 g/dL (12.0-15.0); Lymphocytes % 20.7 % (15.3-44.8); MCH 28.8 pg (27.0-35.0); MCV 87.4 fL (80-100); MPV 8.2 fL (7.6-11.3); Monocytes % 11.6 % (3.3-12.3); Neutrophils % 63.8 % (41.7-73.7); Nucleated Red Blood Cells % 0.2 % (0-0); Platelets 177 thou/uL (152-406); RBC Red Blood Cell Count 3.33 M/uL (3.86-4.86); Red Cell Distribution Width 16.7 % (12.1-15.2)
[2024-05-19 05:44] LABS: Magnesium 1.5 mg/dL (1.6-2.4)
--- NOTE | 2024-05-19 08:32 | P.PN ---
Date of Service: 05/19/24 Subjective Admitted with ileus, small bowel obstruction, n.p.o., surgery following Physical Examination - Vital Signs Reviewed - Physical Exam General: Alert, Oriented x3, morbid obese HEENT: Atraumatic, Normocephalic Neck: Supple, 2+ carotid pulse no bruit Respiratory: Clear to auscultation bilaterally, Normal air movement Cardiovascular: Regular rate/rhythm, Normal S1 S2 Capillary refill: <2 Seconds Gastrointestinal: Epigastric tenderness, hypoactive bowel sounds Musculoskeletal: No clubbing, Tenderness Integumentary: No breakdown, No tenderness/swelling Neurological: Normal speech, Normal strength at 5/5 x4 extr, Assessment and Plan Ileus with a low-grade follow-up Diet and weight loss; recently started Mounjaro Surgery consulted, n.p.o. CT abdomen pelvis reports "Dilated proximal and mid small bowel loops with wall and fold thickening, gradually tapering to normal caliber in the right upper quadrant. Findings are more consistent with ileus and low-grade obstruction. IV Cipro, Flagyl, as needed analgesics osteoarthritis rheumatoid arthritis As needed analgesics Fall precautions IDDM diabetes mellitus Morbid obesity BMI 40 Diet and weight loss; recently started Mounjaro Strict blood sugar control; accu-chek before every meal and at bedtime Microcytic anemia Trend H&H, transfuse less than 7 Hemoglobin on admission 12.1, repeat 9.6 Hypokalemia Trend electrolytes replace as needed Bladder spasms Continue home medications GI/DVT prophylaxis Advanced directive full code - Code Status/Comfort Care Code Status: Full Code Critical Care: No Time Spent Managing PTS Care (In Minutes): 30
[2024-05-19] MEDS: KCL 20 MEQ/100 mL IVPB 20 MEQ/100 ML BAG IV SCH (08:51)
--- NOTE | 2024-05-19 09:29 | RAD REPORT ---
EXAM: Abdomen 1 View (KUB) HISTORY: [facility] Abdominal pain COMPARISON: CT abdomen and pelvis 05/18/2024 FINDINGS: Single view of the abdomen shows a nonspecific, nonobstructive bowel gas pattern. No suspi cious calcifications are seen. The bones are unremarkable. Surgical clips in the right upper quadrant. IMPRESSION: Nonobstructive bowel gas pattern.
[2024-05-19] MEDS: Magnesium Sulfate 2gm IVPB 2 G/50 ML BAG IV ONE (11:09)
--- NOTE | 2024-05-19 12:51 | PN ---
Date of Progress Note: 05/19/2024 Subjective: Patient is awake and alert. No nausea. No vomiting. Pain is better. No diarrhea. Objective: Vital Signs: Stable. Afebrile. Abdomen: Soft, nondistended, nontender. Positive bowel sounds. Laboratory Data: White count is normal. There is no left shift. X-ray shows no evidence of ileus o r small bowel obstruction. Assessment: Gastroenteritis with ileus, improving. Recommendations: We will begin diet. If tolerated, patient can be discharged to home within the nex t 24 hours. Plan of care discussed with the patient, family, and Dr. Bledsoe. /MODL Voice ID: [id number] Report ID: [id number]
[2024-05-19 14:09] VITALS: BMI 38.7
[2024-05-19 16:23] VITALS: BP 119/78; TEMP 97.5
--- NOTE | 2024-05-20 11:59 | EKG ---
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
== END 2024-05-19 19:43 | disposition home or self-care (01) | DRG 389 ==
LOC: ER 03:55 → ERHOLD 08:15 → 2ND 16:39
PROVIDERS: ADMIT Internal Medicine; ATTEND Hospitalist
DX: K56.699 Other intestinal obstruction unspecified as to partial versus complete obstruction (principal); Z68.41 Body mass index [BMI] 40.0-44.9, adult; K52.9 Noninfective gastroenteritis and colitis, unspecified; F41.9 Anxiety disorder, unspecified; E87.6 Hypokalemia; M06.9 Rheumatoid arthritis, unspecified; D50.9 Iron deficiency anemia, unspecified; M19.90 Unspecified osteoarthritis, unspecified site; N32.89 Other specified disorders of bladder; E11.9 Type 2 diabetes mellitus without complications; E66.01 Morbid (severe) obesity due to excess calories; Z88.5 Allergy status to narcotic agent; Z79.84 Long term (current) use of oral hypoglycemic drugs; Z96.642 Presence of left artificial hip joint; Z79.899 Other long term (current) drug therapy
CPT/HCPCS: 36415; 71045; 74018; 74177; 80048; 80053; 81001; 81025; 82947; 83690; 83735; 83880; 84100; 84484; 85025; 85610; 93005; 99285; J0744; J1170; J1200; J1644; J2405; J2550; J3475; J3480; J7030; J7799; Q9967

== ENCOUNTER 2024-06-08 22:55 | Emergency (ER) | payer OTHER ==
--- OUTSIDE RECORDS SUMMARY | 2024-06-08 23:02 | XMS REPORT | Continuity of Care Document ---
Author Name Unknown Address [address] [facility] [place] [address] [facility] thconnect Address [address] [facility] [address] [place] [address] Care Team Providers Care Order Make Up Clerk Name Role Phone ESTEFANY EVANS Primary Care Physician Unavaila Estefany Bergman Attending Clinician Unavailable KAYLA LUTZ Attending Clinician UnavailLACEY Guzman Attending Clinician Unava ilBREE Pelaez Attending Clinician Unavailable Doctor Unassigned, Goldsmith Attending Clinician U michaela Espinoza RN, Veronika Serra Attending Clinician Unavail able ANNAMARIA BARKER Attending Clinician Unavailable Yony GOMEZ, Marylou Sanabria Attending Clinician [phone] Annamaria Barker DO Attending Clinician [phone] Billy WOODSON, Bree Attending Clinician [phone] Kayla Lutz MD Attending Clinician [phone] Bernice Amaya Attending Clinician [phone] PEDRO LUIS RUSHING Attending Clinician Unavailable PEDRO LUIS RUSHING Attending Clinician Unavailable Pob, [facility] Main Attending Clinician UnavailBERNICE Conrad Attending Clinician Unavailable Chelo Cornejo RN Attending Clinician Unavailab carmelo Clemons MD, Brodie Evangelista Attending Clinician [phone] FILIPE WIGGINS Attending Clinician Unavailable HEMA CLAYTONALMA PALM Attending Clinician Unavail able Bharath Padgett CRNA Attending Clinician [phone] Oliver Hunt MD Attending Clinician [phone] Only, Adc Test Attending Clinician Unavailable RENÉE AGUILERA Attending Clinician Unavail able RENÉE AGUILERA Attending Clinician Unavail able ANDREW RESENDIZ Attending Clinician Unavail able Nurse, [facility] Pob Immunization Attending Clinician Unavailable Andrew Resendiz DO Attending Clinician [phone] Jonas Barker MD Attending Clinician Calin Lazar DO Attending Clinician [phone] KAYLA LUTZ Admitting Clinician UnavailANNAMARIA Amado Admitting Clinician Unavailable Annamaria Barker DO Admitting Clinician [phone] Kayla Lutz MD Admitting Clinician [phone] BERNICE COLUNGA Admitting Clinician Unavailable Payers Payer Name Policy Type Policy Number Effective Date Expirati on Date Source [facility] [id number] 2021 00:00:00 [facility] [id number] 2015 00:00:00 [facility]ETTER [facility] [id number] 2020 00:00:00 [facility] DUAL COMP CHOICE PPO DSNP [id number] 2023 00:00:00 Ambetter from [facility] [id number] [facility] HIM AMBETTER FROM [facility] [id number] 2019 00:00:00 Ambetter from [facility] [id number] [facility] Ambetter from [facility] [id number] [facility] Ambetter from [facility] [id number] [facility] Problems Condition Name Condition Details Condition Category Status Onset Date Resolution Date Last Treatment Date Treating Clinician Comments Source Abnormal nuclear cardiac imaging test Abnormal nuclear cardiac imaging test Disease Active 08-30 00:00: 00 [facility] Chest pain, unspecifie d type Chest pain, unspecifie d type Disease Active 08-29 00:00: 00 [facility] Right lower quadrant abdominal pain Right lower quadrant abdominal pain Disease Active 2021-08 00:00: 00 [facility] Morbid obesity with body mass index of 40.0-49.9 Morbid obesity with body mass index of 40.0-49.9 Disease Active 01-15 00:00: 00 [facility] Arthritis of left hip Arthritis of left hip Disease Active 01-04 00:00: 00 Overview: Formattin g of this note might be different from the original. 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) use of non-steroi jaiden anti-infla mmatories (nsaid) custodial (current) use of non-steroi jaiden anti-infla mmatories (nsaid) Disease Active 03-31 00:00: 00 [facility] Other iron deficiency anemia Other iron deficiency anemia Disease Active 03-31 00:00: 00 [facility] Subcutaneo us nodules Subcutaneo us nodules Disease Active 03-31 00:00: 00 [facility] Bilateral knee pain Bilateral knee pain Disease Active 10-10 00:00: 00 [facility] Bilateral knee pain Bilateral knee pain Disease Active 10-10 00:00: 00 [facility] [id number] Pain, joint, hand, left Problem Active [facility] [id number] Primary osteoarthr itis of left hip Problem Active [facility] [id number] Trigger finger, right ring finger Problem Active [facility] [id number] Pain, joint, hand, right Problem Active [facility] [id number] Pain, joint, hip, right Problem [facility] [id number] Arthritis of right hip Problem [facility] [id number] Primary osteoarthr itis of right hip Problem [facility] [id number] Trochanter ic bursitis of left hip Problem [facility] [id number] Status post total replacemen t of left hip Problem [facility] Allergies, Adverse Reactions, Alerts Allergy Name Allergy Type Status Severity Reaction(s) Onset Date Inactive Date Treating Clinician Comments Source Codeine Propensi ty to adverse reaction s Active Nausea And Vomiting 09-07 00:00: 00 [facility] CODEINE DRUG INGREDI Active N/V 09-07 00:00: 00 [facility] codeine codeine Active Unknown [facility] Social History Social Habit Start Date Stop Date Quantity Comments Source History of Tobacco Use [facility] Sex Assigned At [facility] History SDOH Alcohol Std Drinks [facility] History SDOH Alcohol Binge [facility] Gender identity [facility] Sexual orientation [facility] Exposure to SARS-CoV-2 (event) 2022-12-17 00:00:00 2022-12-27 08:47:00 Not sure [facility] History of Social function 2022-09-23 00:00:00 2022-09-23 00:00:00 [facility] History SDOH Food Worry 2022-06-13 00:00:00 2022-06-13 00:00:00 1 [facility] History SDOH Food Scarcity 2022-06-13 00:00:00 2022-06-13 00:00:00 1 [facility] History SDOH Transport Med 2022-06-13 00:00:00 2022-06-13 00:00:00 2 [facility] History SDOH Transport Non-Med 2022-06-13 00:00:00 2022-06-13 00:00:00 2 [facility] Tobacco use and exposure 2022-06-11 00:00:00 2022-06-11 00:00:00 Smokeless tobacco non-user [facility] Education - What is the highest level of school you have completed or the highest degree you have received? 2022-06-10 00:00:00 2022-06-10 00:00:00 Some college, no degree [facility] Alcohol intake 2020-12-18 00:00:00 2020-12-18 00:00:00 Lifetime non-drinker (finding) [facility] History SDOH Alcohol Frequency 2020-12-18 00:00:00 2020-12-18 00:00:00 1 [facility] Smoking Status Start Date Stop Date Source Never smoked tobacco [facility] Medications Ordered Medication Name Filled Medication Name Start Date Stop Date Current Medication? Ordering Clinician Indication Dosage Frequency Signature (SIG) Comments Components Source amitriptyli ne (ELAVIL) tablet 150 mg 08-30 15:00: 00 Yes 150mg 150 mg, Oral, DAILY, First dose on 08/30/23 at 0900, Until Discontinu ed, Routine [facility] enoxaparin (LOVENOX) injection 40 mg 08-30 15:00: 00 Yes 40mg 40 mg, Subcutaneo us, DAILY, First dose on 08/30/23 at 0900, Until Discontinu ed, Routine [facility] amitriptyli ne 150 mg tablet 08-30 14:20: 33 Yes amitriptyl ine 150 mg tablet Take 1 tablet every day by oral route for 30 days. [facility] semaglutide (OZEMPIC) 1 mg/dose (4 mg/3 mL) PnIj 08-30 14:20: 33 Yes 1.25mg inject 1.25 mg under the skin weekly. [facility] Sliding Scale Insulin - Lispro (HumaLOG) 08-30 03:00: 00 Yes Subcutaneo us, TID MEALS+HS, First dose on Fri08/29/23 at 2100, Until Discontinu ed, Routine [facility] pantoprazol e (PROTONIX) injection 40 mg 08-30 02:00: 00 Yes 40mg 40 mg, Slow IV Push, Q24H, First dose on Fri08/29/23 at 2000, Until Discontinu ed [facility] NaCl 0.9% (NS) IV infusion 1,000 mL 08-30 01:15: 00 Yes 1000mL at 75 mL/hr, IV Infusion, CONTINUOUS , Starting on Fri08/29/23 at 1915, Until Discontinu ed, Routine [facility] iopamidol (ISOVUE 370-500 mL) injection 75 mL 08-30 00:15: 00 08-30 00:15 :00 No [id number] 75mL 75 mL, Intravenou s, ONCE, 1 dose, On Fri08/29/23 at 1815, Routine [facility] proMETHazin e (PHENERGAN) 12.5 mg in NS 50 mL IV piggyback (CNR) 08-30 00:01: 07 Yes 12.5mg 12.5 mg, IV Piggyback, at 200 mL/hr Administer over 15 Minutes, Q4HPRN, Starting on Fri08/29/23 at 1801, Until Discontinu ed, Routine, N/V unresponsi ve to Ondansetro n [facility] ondansetron (ZOFRAN (PF)) injection 4 mg 08-30 00:00: 10 Yes 4mg 4 mg, Slow IV Push, Q6HPRN, Starting on Fri08/29/23 at 1800, Until Discontinu ed, Routine, Nausea and Vomiting (N/V) [facility] glucagon (GLUCAGEN DIAGNOSTIC KIT) injection 1 mg 08-29 23:59: 42 Yes 1mg 1 mg, Intramuscu lar, PRN, Starting on Fri08/29/23 at 1759, Until Discontinu ed, KUNAL, Blood Glucose < or = 70 mg/dL and patient is NPO, unable to swallow or has mental changes. [facility] dextrose 50 % in water (D50W) injection 25 mL 08-29 23:59: 42 Yes 25mL 25 mL, Slow IV Push, PRN, Starting on Fri08/29/23 at 1759, Until Discontinu ed, KUNAL, Blood Glucose < or = 70 mg/dL and patient is NPO, unable to swallow or has mental status changes. [facility] FENTanyl PF (SUBLIMAZE (PF)) injection 25 mcg 08-29 23:59: 16 08-30 23:58 :16 No 25ug 25 mcg, Slow IV Push, Q3HPRN, Starting on Fri08/29/23 at 1759, Until 08/30/23 at 1758, Routine, Pain (scale 7-10) [facility] acetaminoph en (TYLENOL) tablet 650 mg 08-29 23:59: 10 Yes 650mg 650 mg, Oral, Q6HPRN, Starting on Fri08/29/23 at 1759, Until Discontinu ed, Routine, Pain (scale 1-3) [facility] haloperidol lactate (HALDOL) injection 2.5 mg 08-29 22:30: 00 08-30 00:08 :00 No 2.5mg 2.5 mg, Intravenou s, ONCE, 1 dose, On Fri08/29/23 at 1630, STAT [facility] morpHINE (4 mg/mL) injection 4 mg 08-29 21:00: 00 08-29 20:55 :00 No 4mg 4 mg, Slow IV Push, ONCE, 1 dose, On Fri08/29/23 at 1500, STAT [facility] Fesoterodin e (TOVIAZ) 4 mg tablet 08-29 20:23: 58 08-29 00:00 :00 No Toviaz 4 mg tablet,ext ended release [facility] DULoxetine 60 mg capsule 08-29 20:23: 58 08-29 00:00 :00 No 60mg Take 1 capsule by mouth in the morning. [facility] proMETHazin e (PHENERGAN) 12.5 mg in NS 50 mL IV piggyback (CNR) 08-29 20:00: 00 08-29 20:48 :00 No 12.5mg 12.5 mg, IV Piggyback, at 200 mL/hr Administer over 15 Minutes, ONCE, 1 dose, On Fri08/29/23 at 1400, KUNAL [facility] iopamidol (ISOVUE 370-500 mL) injection 100 mL 08-29 20:00: 00 08-29 20:00 :00 No [id number] 100mL 100 mL, Intravenou s, ONCE, 1 dose, On Fri08/29/23 at 1400, Routine [facility] morpHINE (4 mg/mL) injection 4 mg 08-29 18:30: 00 08-29 18:45 :00 No 4mg 4 mg, Slow IV Push, ONCE, 1 dose, On Fri08/29/23 at 1230, STAT [facility] ketorolac (TORADOL) injection 30 mg 08-29 17:45: 00 08-29 16:48 :00 No 30mg 30 mg, Slow IV Push, ONCE, 1 dose, On Fri08/29/23 at 1145, Routine [facility] NaCl 0.9% (NS) bolus infusion 1,000 mL 08-29 17:30: 00 08-29 17:42 :00 No 1000mL at 999 mL/hr, 1,000 mL, IV Infusion, ONCE, 1 dose, On Fri08/29/23 at 1130, KUNAL [facility] famotidine (PEPCID (PF)) injection 20 mg 08-29 16:45: 00 08-29 16:45 :00 No 20mg 20 mg, Slow IV Push, ONCE, 1 dose, On Fri08/29/23 at 1045, [facility] ondansetron (ZOFRAN (PF)) injection 4 mg 08-29 16:45: 00 08-29 16:44 :00 No 4mg 4 mg, Slow IV Push, ONCE, 1 dose, On Fri08/29/23 at 1045, [facility] Xarelto 10 MG Xarelto 10 MG 05 00:00: 00 No 1{table t} QD Xarelto 10 MG Lidocaine Lidocaine 01-13 00:00: 00 No 5mL [facility] Kenalog (Triamcinol one) Kenalog (Triamcinol one) 01-13 00:00: 00 No 2mL [facility] atorvastati n 10 mg tablet 12-27 09:06: 57 12-27 00:00 :00 No 10mg Take 1 tablet by mouth in the morning. [facility] amitriptyli ne 150 mg tablet 12-27 08:56: 31 Yes amitriptyl ine 150 mg tablet Take 1 tablet every day by oral route for 30 days. [facility] Fesoterodin e (TOVIAZ) 4 mg tablet 12-27 08:56: 31 Yes Toviaz 4 mg tablet,ext ended release [facility] DULoxetine 60 mg capsule 12-27 08:56: 31 Yes 60mg Take 1 capsule by mouth in the morning. [facility] semaglutide (OZEMPIC) 1 mg/dose (4 mg/3 mL) PnIj 12-27 08:56: 31 Yes 1.25mg inject 1.25 mg under the skin weekly. [facility] traMADoL 50 mg tablet 12-21 00:00: 00 08-29 00:00 :00 No TAKE 1 TABLET BY MOUTH EVERY 8 HOURS NEEDED FOR 10 DAYS [facility] FENTanyl PF (SUBLIMAZE (PF)) injection 25 mcg 09-23 14:14: 37 Yes 25ug 25 mcg, Slow IV Push, Q5MIN PRN, 4 doses, Starting on Fri09/23/22 at 0814, Until Discontinu ed, Routine, Pain (scale 4-6), PACU [facility] ondansetron (ZOFRAN (PF)) injection 4 mg 09-23 14:14: 37 09-23 14:16 :00 No 4mg 4 mg, Slow IV Push, PRN, 1 dose, Starting on Fri09/23/22 at 0814, Until Fri09/23/22 at 0816, Routine, Nausea and Vomiting (N/V), PACU [facility] triamcinolo ne acetonide (KENALOG) injection 09-23 13:55: 00 09-23 17:13 :49 No PRN, Starting on Fri09/23/22 at 0755, Until Fri09/23/22 at 1113, Routine, Intra-op [facility] bupivacaine (preserv free) 0.5% (SENSORCAIN E MPF) 0.5 % (5 mg/mL) injection 09-23 13:55: 00 09-23 17:13 :49 No PRN, Starting on Fri09/23/22 at 0755, Until Fri09/23/22 at 1113, Routine, Intra-op [facility] triamcinolo ne acetonide (KENALOG) injection 09-23 13:53: 00 09-23 17:13 :49 No PRN, Starting on Fri09/23/22 at 0753, Until Fri09/23/22 at 1113, Routine, Intra-op [facility] bupivacaine (preserv free) 0.5% (SENSORCAIN E MPF) 0.5 % (5 mg/mL) injection 09-23 13:53: 00 09-23 17:13 :49 No PRN, Starting on Fri09/23/22 at 0753, Until Fri09/23/22 at 1113, Routine, Intra-op [facility] lactated ringers IV infusion 1,000 mL 09-23 12:45: 00 09-23 13:02 :00 No 1000mL at 42 mL/hr, 1,000 mL, IV Infusion, ONCE, 1 dose, On 09/23/22 at 0645, Routine, DSU Pre-op [facility] amitriptyli ne 150 mg tablet 09-23 09:08: 45 Yes amitriptyl ine 150 mg tablet Take 1 tablet every day by oral route for 30 days. [facility] Fesoterodin e (TOVIAZ) 4 mg tablet 09-23 09:08: 45 Yes Toviaz 4 mg tablet,ext ended release [facility] DULoxetine 60 mg capsule 09-23 09:08: 45 Yes 60mg Take 60 mg by mouth daily. [facility] atorvastati n 10 mg tablet 09-23 09:08: 45 Yes 10mg Take 10 mg by mouth in the morning. [facility] semaglutide (OZEMPIC) 1 mg/dose (4 mg/3 mL) PnIj 09-23 09:08: 45 Yes 1.25mg inject 1.25 mg under the skin weekly. [facility] aspirin 325 mg tablet 09-23 00:00: 00 10-22 04:59 :00 No [id number] 325mg Take 1 tablet by mouth in the morning and 1 tablet in the evening. Take with meals. Do all this for 28 days. [facility] semaglutide (OZEMPIC) 1 mg/dose (4 mg/3 mL) PnIj 09-17 13:39: 54 Yes 1.25mg inject 1.25 mg under the skin weekly. [facility] atorvastati n 10 mg tablet 09-17 13:19: 59 Yes 10mg Take 10 mg by mouth in the morning. [facility] amitriptyli ne 150 mg tablet 09-17 13:09: 47 Yes amitriptyl ine 150 mg tablet Take 1 tablet every day by oral route for 30 days. [facility] Fesoterodin e (TOVIAZ) 4 mg tablet 09-17 13:09: 47 Yes Toviaz 4 mg tablet,ext ended release [facility] DULoxetine 60 mg capsule 09-17 13:09: 47 Yes 60mg Take 60 mg by mouth daily. [facility] cefTRIAXone (ROCEPHIN) 1,000 mg in [...] Urine
D uration of Therapy: 7 days [facility] lactobacill us acidophilus 2021-08 00:00: 00 07-14 05:59 :00 No [id number] .5mg Take 1 tablet by mouth in the morning for 30 days. [facility] polyethylen e glycol 3350 17 gram powder 2021-08 00:00: 00 07-14 05:59 :00 No [id number] 17g Take 1 Packet by mouth in the morning for 30 days. [facility] sennosides- docusate sodium (SENOKOT-S) 8.6-50 mg per tablet 1 tablet 2021-08 16:15: 00 Yes 1{tbl} 1 tablet, Oral, DAILY, First dose on Fri06/12/22 at 1015, Until Discontinu ed, Routine [facility] polyethylen e glycol 3350 powder 17 g 2021-08 16:15: 00 Yes 17g 17 g, Oral, DAILY, First dose on Fri06/12/22 at 1015, Until Discontinu ed, Routine [facility] amitriptyli ne 150 mg tablet 2021-08 16:08: 30 Yes amitriptyl ine 150 mg tablet Take 1 tablet every day by oral route for 30 days. [facility] Fesoterodin e (TOVIAZ) 4 mg tablet 2021-08 16:08: 30 Yes Toviaz 4 mg tablet,ext ended release [facility] DULoxetine 60 mg capsule 2021-08 16:08: 30 Yes 60mg Take 60 mg by mouth daily. [facility] proMETHazin e 25 mg tablet 2021-08 00:00: 00 09-17 00:00 :00 No [id number] 25mg Take 1 tablet by mouth every 4 (four) hours as needed for N/V unresponsi ve to Ondansetro n. [facility] docusate 100 mg capsule 2021-08 00:00: 00 07-13 05:59 :00 No [id number] 100mg Take 1 capsule by mouth in the morning and 1 capsule in the evening. Do all this for 30 days. [facility] HYDROcodone -acetaminop hen 5-325 mg tablet 2021-08 00:00: 00 06-20 05:59 :00 No [id number] 1{tbl} Take 1 tablet by mouth every 6 (six) hours as needed for Pain (scale 7-10) for up to 7 days. Indication s: acute pain [facility] ciprofloxac in HCl 500 mg tablet 2021-08 00:00: 00 06-20 05:59 :00 No [id number] 500mg Take 1 tablet by mouth every 12 (twelve) hours for 7 days. [facility] metroNIDAZO LE 250 mg tablet 2021-08 00:00: 00 06-20 05:59 :00 No [id number] 500mg Take 2 tablets by mouth every 12 (twelve) hours for 7 days. [facility] proMETHazin e (PHENERGAN) 25 mg in NaCl 0.9% (NS) 50 mL IV piggyback 2021-08 21:26: 59 Yes 25mg 25 mg, IV Piggyback, Q4HPRN, Starting on Fri06/11/22 at 1526, Until Discontinu ed, Routine, Nausea and Vomiting (N/V), N/V unresponsi ve to Ondansetro n [facility] acetaminoph en (TYLENOL) tablet 650 mg 2021-08 15:55: 26 Yes 650mg 650 mg, Oral, Q6HPRN, Starting on Fri06/11/22 at 0955, Until Discontinu ed, Routine, Pain (scale 1-3) [facility] enoxaparin (LOVENOX) injection 40 mg 2021-08 15:00: 00 Yes 40mg 40 mg, Subcutaneo us, DAILY, First dose on Fri06/11/22 at 0900, Until Discontinu ed, Routine [facility] DULoxetine (CYMBALTA) capsule 60 mg 2021-08 15:00: 00 Yes 60mg 60 mg, Oral, DAILY, First dose on Fri06/11/22 at 0900, Until Discontinu ed, Routine [facility] lactobacill us acidophilus tablet 0.5 mg 2021-08 15:00: 00 Yes .5mg 0.5 mg, Oral, DAILY, First dose on Fri06/11/22 at 0900, Until Discontinu ed, Routine [facility] Sliding Scale Insulin - Lispro (HumaLOG) + Fsbg Testing 2021-08 14:00: 00 Yes Subcutaneo us, TID MEALS, First dose on Fri06/11/22 at 0800, Until Discontinu ed, Routine [facility] morpHINE (4 mg/mL) injection 4 mg 2021-08 12:52: 08 Yes 4mg 4 mg, Slow IV Push, Q4HPRN, Starting on Fri06/11/22 at 0652, Until Discontinu ed, Routine, Pain (scale 7-10) [facility] cefTRIAXone (ROCEPHIN) 1,000 mg in [...] Urine
D uration of Therapy: 7 days [facility] docusate (COLACE) capsule 100 mg 2021-08 06:15: 00 Yes 100mg 100 mg, Oral, BID, First dose on Fri06/11/22 at 0015, Until Discontinu ed, Routine [facility] gabapentin (NEURONTIN) capsule 200 mg 2021-08 06:15: 00 Yes 200mg 200 mg, Oral, BID, First dose on Fri06/11/22 at 0015, Until Discontinu ed, Routine [facility] ondansetron (ZOFRAN (PF)) injection 4 mg 2021-08 06:06: 47 Yes 4mg 4 mg, Slow IV Push, Q6HPRN, Starting on Fri06/11/22 at 0006, Until Discontinu ed, Routine, Nausea and Vomiting (N/V) [facility] traMADoL (ULTRAM) tablet 50 mg 2021-08 06:06: 37 06-13 06:05 :37 No 50mg 50 mg, Oral, Q8HPRN, Starting on Fri06/11/22 at 0006, Until Sneha 06/13/22 at 0005, Routine, Pain (scale 4-6) [facility] FENTanyl PF (SUBLIMAZE (PF)) injection 50 mcg 2021-08 05:58: 16 06-11 12:52 :20 No 50ug 50 mcg, Slow IV Push, Q4HPRN, Starting on Fri06/10/22 at 2358, Until Fri06/11/22 at 0652, Routine, Pain (scale 7-10) [facility] NaCl 0.9% (NS) IV infusion 1,000 mL 2021-08 04:30: 00 Yes 1000mL at 100 mL/hr, IV Infusion, CONTINUOUS , Starting on Fri06/10/22 at 2230, Until Discontinu ed, Routine [facility] NaCl 0.9% (NS) bolus infusion 1,500 mL 2021-08 03:45: 00 06-11 03:33 :01 No 1500mL at 999 mL/hr, 1,500 mL, IV Infusion, ONCE, 1 dose, On Fri06/10/22 at 2145, KUNAL [facility] ondansetron (ZOFRAN (PF)) injection 4 mg 2021-08 03:17: 24 06-11 06:07 :04 No 4mg 4 mg, Slow IV Push, Q6HPRN, Starting on Fri06/10/22 at 2117, Until Fri06/11/22 at 0007, KUNAL, Nausea and Vomiting (N/V) [facility] metoclopram raven HCl (REGLAN) injection 10 mg 2021-08 03:17: 15 06-11 21:27 :54 No 10mg 10 mg, Slow IV Push, TIDPRN, Starting on Fri06/10/22 at 2117, Until Fri06/11/22 at 1527, Routine, Nausea and Vomiting (N/V) [facility] morpHINE (4 mg/mL) injection 4 mg 2021-08 03:16: 49 06-11 05:58 :48 No 4mg 4 mg, Slow IV Push, Q4HPRN, Starting on Fri06/10/22 at 2116, Until Fri06/10/22 at 2358, Routine, Pain (scale 7-10) [facility] oxybutynin 10 mg 24 hr tablet 2021-08 00:05: 07 06-11 00:00 :00 No oxybutynin chloride ER 10 mg tablet,ext ended release 24 hr [facility] semaglutide (OZEMPIC) 0.25 mg or 0.5 mg(2 mg/1.5 mL) PnIj 2021-08 00:05: 06-11 00:00 :00 No .25mg 0.25 mg. [facility] semaglutide , weight loss, (WEGOVY) 0.25 mg/0.5 mL PnIj SC injection 2021-08 00:05: 07 06-11 00:00 :00 No Wegovy 0.25 mg/0.5 mL subcutaneo us pen injector 0.25 mg SC qwk x4wk, then 0.5 mg SC qwk x4wk, then 1 mg SC qwk x4wk, then 1.7 mg SC qwk x4wk, then 2.4 mg SC qwk [facility] clindamycin 300 mg capsule 2021-08 00:05: 06-11 00:00 :00 No clindamyci n HCl 300 mg capsule Take 1 capsule 3 times a day by oral route for 10 days. [facility] NaCl 0.9% (NS) bolus infusion 500 mL 2021-08 00:00: 00 06-11 00:17 :00 No 500mL at 999 mL/hr, 500 mL, IV Infusion, ONCE, 1 dose, On Fri06/10/22 at 1800, STAT [facility] proMETHazin e (PHENERGAN) 25 mg in NaCl 0.9% (NS) 50 mL IV piggyback 2021-08 00:00: 00 06-11 00:06 :00 No 25mg 25 mg, IV Piggyback, ONCE, 1 dose, [facility]10[facility]22 [facility] 1800[facility]FR[facility] (PF[facility] 4 mg 2021-08 23:15: 00 06-10 22:25 :00 No 4mg 4 mg, Slow IV Push, ONCE, 1 dose, On Fri06/10/22 at 1715, [facility] morpHINE (4 mg/mL) injection 4 mg 2021-08 22:15: 00 06-10 21:21 :00 No 4mg 4 mg, Slow IV Push, ONCE, 1 dose, On Fri06/10/22 at 1615, STAT [facility] cefTRIAXone (ROCEPHIN) 1,000 mg in NaCl 0.9% (NS) 50 mL MINI-BAG 2021-08 20:15: 00 06-10 20:51 :00 No 1000mg 1,000 mg, IV Piggyback, ONCE, 1 dose, On Fri06/10/22 at 1415, Administer over 30 Minutes, 50 mL
Reas on for Anti-Infec tive: Documented Infection< br>Documen billy Infection Site: Urine
D uration of Therapy: 7 days [facility] ketorolac (TORADOL) injection 30 mg 2021-08 20:00: 00 06-10 19:01 :00 No 30mg 30 mg, Slow IV Push, ONCE, 1 dose, On Fri06/10/22 at 1400, Routine [facility] morpHINE (4 mg/mL) injection 4 mg 2021-08 19:30: 00 06-10 19:29 :00 No 4mg 4 mg, Slow IV Push, ONCE, 1 dose, On Fri06/10/22 at 1330, STAT [facility] ondansetron (ZOFRAN (PF)) injection 4 mg 2021-08 19:30: 00 06-10 19:29 :00 No 4mg 4 mg, Slow IV Push, ONCE, 1 dose, On Fri06/10/22 at 1330, KUNAL [facility] FENTanyl PF (SUBLIMAZE (PF)) injection 50 mcg 2021-08 18:01: 00 06-10 18:02 :00 No 50ug 50 mcg, Slow IV Push, ONCE, 1 dose, On Fri06/10/22 at 1215, Routine [facility] cefpodoxime 100 mg tablet 2021-08 00:00: 00 06-12 00:00 :00 No [id number] 100mg Take 1 tablet by mouth in the morning and 1 tablet in the evening. Do all this for 7 days. [facility] amitriptyli ne 150 mg tablet 01-14 09:33: 45 Yes amitriptyl ine 150 mg tablet Take 1 tablet every day by oral route for 30 days. [facility] Fesoterodin e (TOVIAZ) 4 mg tablet 01-14 09:33: 45 Yes Toviaz 4 mg tablet,ext ended release [facility] oxybutynin 10 mg 24 hr tablet 01-14 09:33: 45 Yes oxybutynin chloride ER 10 mg tablet,ext ended release 24 hr [facility] semaglutide (OZEMPIC) 0.25 mg or 0.5 mg(2 mg/1.5 mL) PnIj 01-14 09:33: 45 Yes .25mg 0.25 mg. [facility] semaglutide , weight loss, (WEGOVY) 0.25 mg/0.5 mL PnIj SC injection 01-14 09:33: 45 Yes Wegovy 0.25 mg/0.5 mL subcutaneo us pen injector 0.25 mg SC qwk x4wk, then 0.5 mg SC qwk x4wk, then 1 mg SC qwk x4wk, then 1.7 mg SC qwk x4wk, then 2.4 mg SC qwk [facility] clindamycin 300 mg capsule 01-14 09:33: 45 Yes clindamyci n HCl 300 mg capsule Take 1 capsule 3 times a day by oral route for 10 days. [facility] DULoxetine 60 mg capsule 01-14 09:33: 45 Yes 60mg Take 60 mg by mouth daily. [facility] gabapentin 100 mg capsule 11-29 00:00: 00 Yes 100mg Take 1 capsule by mouth in the morning and 1 capsule in the evening. [facility] gabapentin 100 mg capsule 11-29 00:00: 00 Yes 800mg Take 8 capsules by mouth in the morning and 8 capsules at noon and 8 capsules in the evening. [facility] lidocaine-p rilocaine 2.5-2.5 % cream 10-01 00:00: 00 Yes APPLY TO AFFECTED AREA EVERY DAY NEEDED [facility] eszopiclone 1 mg tablet 10-01 00:00: 00 09-17 00:00 :00 No 1mg Take 1 mg by mouth daily. [facility] methylPREDN ISolone (MEDROL, LUNA,) 4 mg tablets 09-24 00:00: 00 Yes [id number] 84mg Take 21 tablets by mouth SEE-INSTRU CTIONS. follow package directions [facility] methylPREDN ISolone (MEDROL, LUNA,) 4 mg tablets 2020-08 0 00:00: 00 Yes [id number] 84mg Take 21 tablets by mouth SEE-INSTRU CTIONS. follow package directions [facility] methocarbam ol (Robaxin) 750 MG tablet 12-18 00:00: 00 12-29 04:59 :00 No [id number] 750mg [id number] 3D Take 1 tablet (750 mg total) by mouth 3 (three) times a day if needed for muscle spasms for up to 10 days. [facility] metFORMIN (Glucophage ) 1000 MG tablet 12-14 00:00: 00 Yes [facility] benzonatate 100 mg capsule 01-25 00:00: 00 Yes [id number] 100mg Take 1 capsule by mouth 3 (three) times daily as needed for Cough. [facility] chlorphenir amine 4 mg tablet 01-25 00:00: 00 Yes [id number] 4mg Take 1 tablet by mouth every 6 (six) hours as needed for Allergies or Runny nose. [facility] LIDOCAINE HCL 10MG/ML LIDOCAINE HCL 10MG/ML 01-19 00:00: 00 No .5mL [facility] Depo-Medrol (Methylpred nisolone) 40mg Depo-Medrol (Methylpred nisolone) 40mg 01-19 00:00: 00 No .5mL [facility] loratadine 10 mg tablet 03-03 00:00: 00 Yes 10mg Take 1 tablet by mouth in the morning. [facility] metFORMIN 1,000 mg tablet 7-07 00:00: 00 09-17 00:00 :00 No TAKE 1 TABLET BY MOUTH TWICE A DAY NEEDED WITH MORNING AND EVENING MEAL [facility] famotidine 40 mg tablet 2-20 00:00: 00 09-17 00:00 :00 No 40mg Take 1 tablet by mouth daily. [facility] Xigduo XR 10-500 MG Xigduo [...] Quad IM 3+ YRS 2021-06-24 00:00:00 Completed [facility] Influenza Virus Vaccine Quad IM 3+ YRS 2021-06-24 00:00:00 Completed [facility] Influenza Virus Vaccine Quad IM 3+ YRS 2021-06-24 00:00:00 Completed [facility] Influenza Virus Vaccine Quad IM 3+ YRS 2021-06-24 00:00:00 Completed [facility] Influenza Virus Vaccine Quad IM 3+ YRS 2021-06-24 00:00:00 Completed [facility] Influenza Virus Vaccine Quad IM 3+ YRS 2021-06-24 00:00:00 Completed [facility] Influenza Virus Vaccine Quad IM 3+ YRS 2021-06-24 00:00:00 Completed [facility] Influenza Virus Vaccine Quad IM 3+ YRS 2021-06-24 00:00:00 Completed [facility] Influenza Virus Vaccine Quad IM 3+ YRS 2021-06-24 00:00:00 Completed [facility] Influenza Virus Vaccine Quad IM 3+ YRS 2021-06-24 00:00:00 Completed [facility] Influenza Virus Vaccine Quad IM 3+ YRS 2021-06-24 00:00:00 Completed [facility] Influenza Virus Vaccine Quad IM 3+ YRS 2021-06-24 00:00:00 Completed [facility] Influenza Virus Vaccine Quad IM 3+ YRS 2021-06-24 00:00:00 Completed [facility] Influenza Virus Vaccine Quad IM 3+ YRS 2021-06-24 00:00:00 Completed [facility] Influenza Virus Vaccine Quad IM 3+ YRS 2021-06-24 00:00:00 Completed [facility] Influenza Virus Vaccine Quad IM 3+ YRS 2021-06-24 00:00:00 Completed [facility] Influenza Virus Vaccine Quad IM 3+ YRS 2021-06-24 00:00:00 Completed [facility] Influenza Virus Vaccine Quad IM 3+ YRS 2021-06-24 00:00:00 Completed [facility] Influenza Virus Vaccine Quad IM 3+ YRS 2021-06-24 00:00:00 Completed [facility] Influenza Virus Vaccine Quad IM 3+ YRS 2021-06-24 00:00:00 Completed [facility] SARS-COV-2 COVID-19 PFIZER VACCINE 2021-04-23 00:00:00 Completed [facility] SARS-COV-2 COVID-19 ALY/J&J VACCINE 2021-04-23 00:00:00 Completed [facility] SARS-COV-2 COVID-19 PFIZER VACCINE 2021-04-23 00:00:00 Completed [facility] SARS-COV-2 COVID-19 ALY/J&J VACCINE 2021-04-23 00:00:00 Completed [facility] SARS-COV-2 COVID-19 PFIZER VACCINE 2021-04-23 00:00:00 Completed [facility] SARS-COV-2 COVID-19 ALY/J&J VACCINE 2021-04-23 00:00:00 Completed [facility] SARS-COV-2 COVID-19 PFIZER VACCINE 2021-04-23 00:00:00 Completed [facility] SARS-COV-2 COVID-19 ALY/J&J VACCINE 2021-04-23 00:00:00 Completed [facility] SARS-COV-2 COVID-19 PFIZER VACCINE 2021-04-23 00:00:00 Completed [facility] SARS-COV-2 COVID-19 ALY/J&J VACCINE 2021-04-23 00:00:00 Completed [facility] SARS-COV-2 COVID-19 PFIZER VACCINE 2021-04-23 00:00:00 Completed [facility] SARS-COV-2 COVID-19 ALY/J&J VACCINE 2021-04-23 00:00:00 Completed [facility] SARS-COV-2 COVID-19 PFIZER VACCINE 2021-04-23 00:00:00 Completed [facility] SARS-COV-2 COVID-19 ALY/J&J VACCINE 2021-04-23 00:00:00 Completed [facility] SARS-COV-2 COVID-19 PFIZER VACCINE 2021-04-23 00:00:00 Completed [facility] SARS-COV-2 COVID-19 ALY/J&J VACCINE 2021-04-23 00:00:00 Completed [facility] SARS-COV-2 COVID-19 PFIZER VACCINE 2021-04-23 00:00:00 Completed [facility] SARS-COV-2 COVID-19 ALY/J&J VACCINE 2021-04-23 00:00:00 Completed [facility] SARS-COV-2 COVID-19 PFIZER VACCINE 2021-04-23 00:00:00 Completed [facility] SARS-COV-2 COVID-19 ALY/J&J VACCINE 2021-04-23 00:00:00 Completed [facility] SARS-COV-2 COVID-19 PFIZER VACCINE 2021-04-23 00:00:00 Completed [facility] SARS-COV-2 COVID-19 ALY/J&J VACCINE 2021-04-23 00:00:00 Completed [facility] SARS-COV-2 COVID-19 PFIZER VACCINE 2021-04-23 00:00:00 Completed [facility] SARS-COV-2 COVID-19 ALY/J&J VACCINE 2021-04-23 00:00:00 Completed [facility] SARS-COV-2 COVID-19 PFIZER VACCINE 2021-04-23 00:00:00 Completed [facility] SARS-COV-2 COVID-19 ALY/J&J VACCINE 2021-04-23 00:00:00 Completed [facility] SARS-COV-2 COVID-19 PFIZER VACCINE 2021-04-23 00:00:00 Completed [facility] SARS-COV-2 COVID-19 ALY/J&J VACCINE 2021-04-23 00:00:00 Completed [facility] SARS-COV-2 COVID-19 PFIZER VACCINE 2021-04-23 00:00:00 Completed [facility] SARS-COV-2 COVID-19 ALY/J&J VACCINE 2021-04-23 00:00:00 Completed [facility] SARS-COV-2 COVID-19 PFIZER VACCINE 2021-04-23 00:00:00 Completed [facility] SARS-COV-2 COVID-19 ALY/J&J VACCINE 2021-04-23 00:00:00 Completed [facility] SARS-COV-2 COVID-19 PFIZER VACCINE 2021-04-23 00:00:00 Completed [facility] SARS-COV-2 COVID-19 ALY/J&J VACCINE 2021-04-23 00:00:00 Completed [facility] SARS-COV-2 COVID-19 PFIZER VACCINE 2021-04-23 00:00:00 Completed [facility] SARS-COV-2 COVID-19 ALY/J&J VACCINE 2021-04-23 00:00:00 Completed [facility] SARS-COV-2 COVID-19 PFIZER VACCINE 2021-04-23 00:00:00 Completed [facility] SARS-COV-2 COVID-19 ALY/J&J VACCINE 2021-04-23 00:00:00 Completed [facility] SARS-COV-2 COVID-19 PFIZER VACCINE 2021-04-23 00:00:00 Completed [facility] SARS-COV-2 COVID-19 ALY/J&J VACCINE 2021-04-23 00:00:00 Completed [facility] SARS-COV-2 COVID-19 PFIZER VACCINE 2021-04-23 00:00:00 Completed [facility] SARS-COV-2 COVID-19 ALY/J&J VACCINE 2021-04-23 00:00:00 Completed [facility] SARS-COV-2 COVID-19 PFIZER VACCINE 2021-04-02 00:00:00 Completed [facility] SARS-COV-2 COVID-19 ALY/J&J VACCINE 2021-04-02 00:00:00 Completed [facility] SARS-COV-2 COVID-19 PFIZER VACCINE 2021-04-02 00:00:00 Completed [facility] SARS-COV-2 COVID-19 ALY/J&J VACCINE 2021-04-02 00:00:00 Completed [facility] SARS-COV-2 COVID-19 PFIZER VACCINE 2021-04-02 00:00:00 Completed [facility] SARS-COV-2 COVID-19 ALY/J&J VACCINE 2021-04-02 00:00:00 Completed [facility] SARS-COV-2 COVID-19 PFIZER VACCINE 2021-04-02 00:00:00 Completed [facility] SARS-COV-2 COVID-19 ALY/J&J VACCINE 2021-04-02 00:00:00 Completed [facility] SARS-COV-2 COVID-19 PFIZER VACCINE 2021-04-02 00:00:00 Completed [facility] SARS-COV-2 COVID-19 ALY/J&J VACCINE 2021-04-02 00:00:00 Completed [facility] SARS-COV-2 COVID-19 PFIZER VACCINE 2021-04-02 00:00:00 Completed [facility] SARS-COV-2 COVID-19 ALY/J&J VACCINE 2021-04-02 00:00:00 Completed [facility] SARS-COV-2 COVID-19 PFIZER VACCINE 2021-04-02 00:00:00 Completed [facility] SARS-COV-2 COVID-19 ALY/J&J VACCINE 2021-04-02 00:00:00 Completed [facility] SARS-COV-2 COVID-19 PFIZER VACCINE 2021-04-02 00:00:00 Completed [facility] SARS-COV-2 COVID-19 ALY/J&J VACCINE 2021-04-02 00:00:00 Completed [facility] SARS-COV-2 COVID-19 PFIZER VACCINE 2021-04-02 00:00:00 Completed [facility] SARS-COV-2 COVID-19 ALY/J&J VACCINE 2021-04-02 00:00:00 Completed [facility] SARS-COV-2 COVID-19 PFIZER VACCINE 2021-04-02 00:00:00 Completed [facility] SARS-COV-2 COVID-19 ALY/J&J VACCINE 2021-04-02 00:00:00 Completed [facility] SARS-COV-2 COVID-19 PFIZER VACCINE 2021-04-02 00:00:00 Completed [facility] SARS-COV-2 COVID-19 LAY/J&J VACCINE 2021-04-02 00:00:00 Completed [facility] SARS-COV-2 COVID-19 PFIZER VACCINE 2021-04-02 00:00:00 Completed [facility] SARS-COV-2 COVID-19 ALY/J&J VACCINE 2021-04-02 00:00:00 Completed [facility] SARS-COV-2 COVID-19 PFIZER VACCINE 2021-04-02 00:00:00 Completed [facility] SARS-COV-2 COVID-19 ALY/J&J VACCINE 2021-04-02 00:00:00 Completed [facility] SARS-COV-2 COVID-19 PFIZER VACCINE 2021-04-02 00:00:00 Completed [facility] SARS-COV-2 COVID-19 ALY/J&J VACCINE 2021-04-02 00:00:00 Completed [facility] SARS-COV-2 COVID-19 PFIZER VACCINE 2021-04-02 00:00:00 Completed [facility] SARS-COV-2 COVID-19 ALY/J&J VACCINE 2021-04-02 00:00:00 Completed [facility] SARS-COV-2 COVID-19 PFIZER VACCINE 2021-04-02 00:00:00 Completed [facility] SARS-COV-2 COVID-19 ALY/J&J VACCINE 2021-04-02 00:00:00 Completed [facility] SARS-COV-2 COVID-19 PFIZER VACCINE 2021-04-02 00:00:00 Completed [facility] SARS-COV-2 COVID-19 ALY/J&J VACCINE 2021-04-02 00:00:00 Completed [facility] SARS-COV-2 COVID-19 PFIZER VACCINE 2021-04-02 00:00:00 Completed [facility] SARS-COV-2 COVID-19 ALY/J&J VACCINE 2021-04-02 00:00:00 Completed [facility] SARS-COV-2 COVID-19 PFIZER VACCINE 2021-04-02 00:00:00 Completed [facility] SARS-COV-2 COVID-19 ALY/J&J VACCINE 2021-04-02 00:00:00 Completed [facility] SARS-COV-2 COVID-19 PFIZER VACCINE 2021-04-02 00:00:00 Completed [facility] SARS-COV-2 COVID-19 ALY/J&J VACCINE 2021-04-02 00:00:00 Completed [facility] SARS-COV-2 COVID-19 PFIZER VACCINE 2021-04-02 00:00:00 Completed [facility] SARS-COV-2 COVID-19 ALY/J&J VACCINE 2021-04-02 00:00:00 Completed [facility] Influenza Virus Vaccine Quad IM 3+ YRS 2020-05-12 00:00:00 Completed [facility] Influenza Virus Vaccine Quad IM 3+ YRS 2020-05-12 00:00:00 Completed [facility] Influenza Virus Vaccine Quad IM 3+ YRS 2020-05-12 00:00:00 Completed [facility] Influenza Virus Vaccine Quad IM 3+ YRS 2020-05-12 00:00:00 Completed [facility] Influenza Virus Vaccine Quad IM 3+ YRS 2020-05-12 00:00:00 Completed [facility] Influenza Virus Vaccine Quad IM 3+ 2020-05-12 00:00:00 Completed [facility] Influenza Virus Vaccine Quad IM 3+ 2020-05-12 00:00:00 Completed [facility] Influenza Virus Vaccine Quad IM 3+ 2020-05-12 00:00:00 Completed [facility] Influenza Virus Vaccine Quad IM 3+ 2020-05-12 00:00:00 Completed [facility] Influenza Virus Vaccine Quad IM 3+ 2020-05-12 00:00:00 Completed [facility] Influenza Virus Vaccine Quad IM 3+ YRS 2020-05-12 00:00:00 Completed [facility] Influenza Virus Vaccine Quad IM 3+ 2020-05-12 00:00:00 Completed [facility] Influenza Virus Vaccine Quad IM 3+ 2020-05-12 00:00:00 Completed [facility] Influenza Virus Vaccine Quad IM 2020-05-12 00:00:00 Completed [facility] Influenza Virus Vaccine Quad IM 2020-05-12 00:00:00 Completed [facility] Influenza Virus Vaccine Quad IM 32020-05-12 00:00:00 Completed [facility] Influenza Virus Vaccine Quad IM 32020-05-12 00:00:00 Completed [facility] Influenza Virus Vaccine Quad IM 3+ 2020-05-12 00:00:00 Completed [facility] Influenza Virus Vaccine Quad IM 3+ 2020-05-12 00:00:00 Completed [facility] Influenza Virus Vaccine Quad IM 3+ 2020-05-12 00:00:00 Completed [facility] Influenza Virus Vaccine Quad IM 3+ 2020-05-12 00:00:00 Completed [facility] LIDOCAINE HCL 10MG/ML LIDOCAINE HCL 10MG/ML 2020-01-20 08:45:00 Completed [facility] Depo-Medrol (Methylprednisolone ) 40mg Depo-Medrol (Methylprednisolon e) 40mg 2020-01-20 08:44:00 Completed [facility] Depo-Medrol (Methylprednisolone ) 40mg Depo-Medrol (Methylprednisolon e) 40mg 2020-01-20 08:43:00 Completed [facility] Influenza Virus Vaccine Quad IM 3+ YRS 2019-09-13 00:00:00 Completed [facility] Influenza Virus Vaccine Quad IM 3+ YRS 2019-09-13 00:00:[address] [facility] Influenza Virus Vaccine Quad IM 3+ YRS 2019-09-13 00:00:[address] [facility] Influenza Virus Vaccine Quad IM 3+ YRS 2019-09-13 00:00:[address] [facility] Influenza Virus Vaccine Quad IM 3+ YRS 2019-09-13 00:00:[address] [facility] Influenza Virus Vaccine Quad IM 3+ YRS 2019-09-13 00:00:[address] [facility] Influenza Virus Vaccine Quad IM 3+ YRS 2019-09-13 00:00:00 Completed [facility] Influenza Virus Vaccine Quad IM 3+ YRS 2019-09-13 00:00:00 Completed [facility] Influenza Virus Vaccine Quad IM 3+ YRS 2019-09-13 00:00:00 Completed [facility] Influenza Virus Vaccine Quad IM 3+ YRS 2019-09-13 00:00:00 Completed [facility] Influenza Virus Vaccine Quad IM 3+ YRS 2019-09-13 00:00:00 Completed [facility] Influenza Virus Vaccine Quad IM 3+ YRS 2019-09-13 00:00:[address] [facility] Influenza Virus Vaccine Quad IM 3+ YRS 2019-09-13 00:00:00 Completed [facility] Influenza Virus Vaccine Quad IM 3+ YRS 2019-09-13 00:00:[address] [facility] Influenza Virus Vaccine Quad IM 3+ YRS 2019-09-13 00:00:[address] [facility] Influenza Virus Vaccine Quad IM 3+ YRS 2019-09-13 00:00:00 Completed [facility] Influenza Virus Vaccine Quad IM 3+ YRS 2019-09-13 00:00:[address] [facility] Influenza Virus Vaccine Quad IM 3+ YRS 2019-09-13 00:00:[address] [facility] Influenza Virus Vaccine Quad IM 3+ YRS 2019-09-13 00:00:[address] [facility] Influenza Virus Vaccine Quad IM 3+ YRS 2019-09-13 00:00:00 Completed [facility] Influenza Virus Vaccine Quad IM 3+ YRS 2019-09-13 00:00:00 Completed [facility] SARS-COV-2 COVID-19 PFIZER VACCINE Unknown Completed [facility] SARS-COV-2 COVID-19 ALY/J&J VACCINE Unknown Completed [facility] Influenza Virus Vaccine Quad IM 3+ YRS Unknown Completed [facility] SARS-COV-2 COVID-19 PFIZER VACCINE Unknown Completed [facility] SARS-COV-2 COVID-19 ALY/J&J VACCINE Unknown Completed [facility] Influenza Virus Vaccine Quad IM 3+ YRS Unknown Completed [facility] SARS-COV-2 COVID-19 PFIZER VACCINE Unknown Completed [facility] SARS-COV-2 COVID-19 ALY/J&J VACCINE Unknown Completed [facility] Influenza Virus Vaccine Quad IM 3+ YRS Unknown Completed [facility] SARS-COV-2 COVID-19 PFIZER VACCINE Unknown Completed [facility] SARS-COV-2 COVID-19 ALY/J&J VACCINE Unknown Completed [facility] Influenza Virus Vaccine Quad IM 3+ YRS Unknown Completed [facility] Vital Signs Vital Name Observation Time Observation Value Comments S ource height 2023-12-17 09:00:00 61.5 [in_i] Comm on [facility] weight 2023-12-17 09:00:00 213 [lb_av] Comm on [facility] temperature 2023-12-17 09:00:00 97.6 [degF] Com mon [facility] bmi 2023-12-17 09:00:00 39.59 kg/m2 Comm on [facility] blood pressure systolic 2023-12-17 09:00:00 126 mm[Hg] Common [facility] blood pressure diastolic 2023-12-17 09:00:00 78 mm[Hg] Common [facility] height 2023-11-28 08:00:00 61.5 [in_i] Comm on [facility] weight 2023-11-28 08:00:00 212 [lb_av] Comm on [facility] temperature 2023-11-28 08:00:00 97.4 [degF] Com mon [facility] bmi 2023-11-28 08:00:00 39.4 kg/m2 Commo n [facility] blood pressure systolic 2023-11-28 08:00:00 124 mm[Hg] Common [facility] blood pressure diastolic 2023-11-28 08:00:00 81 mm[Hg] Common [facility] height 2023-09-18 14:30:00 61.5 [in_i] Comm on [facility] weight 2023-09-18 14:30:00 217.6 [lb_av] Co mmon [facility] temperature 2023-09-18 14:30:00 97.9 [degF] Com [facility] bmi 2023-09-18 14:30:00 40.44 kg/m2 Comm on [facility] blood pressure systolic 2023-09-18 14:30:00 128 mm[Hg] [facility] blood pressure diastolic 2023-09-18 14:30:00 83 mm[Hg] Common [facility] Systolic blood pressure 2023-08-30 17:41:00 129 mm[Hg] [facility] Diastolic blood pressure 2023-08-30 17:41:00 73 mm[Hg] [facility] Heart rate 2023-08-30 17:41:00 93 /min [facility] Body temperature 2023-08-30 17:41:00 36.67 Vika [facility] Respiratory rate 2023-08-30 17:41:00 18 /min [facility] Oxygen saturation in Arterial blood by Pulse oximetry 2023-08-30 17:41:00 97 /min [facility] Body height 2023-08-30 01:53:00 157.5 cm [facility] Body weight 2023-08-30 01:53:00 103.42 kg [facility] BMI 2023-08-30 01:53:00 41.70 kg/m2 [facility] height 2023-05-23 10:30:00 61.5 [in_i] Comm on [facility] weight 2023-05-23 10:30:00 225 [lb_av] Comm on [facility] temperature 2023-05-23 10:30:00 98.1 [degF] Com mon [facility] bmi 2023-05-23 10:30:00 41.82 kg/m2 Comm on [facility] blood pressure systolic 2023-05-23 10:30:00 131 mm[Hg] [facility] blood pressure diastolic 2023-05-23 10:30:00 82 mm[Hg] Common [facility] height 2023-05-07 09:30:00 61.5 [in_i] Comm on [facility] weight 2023-05-07 09:30:00 227 [lb_av] Comm on [facility] temperature 2023-05-07 09:30:00 97.6 [degF] Com [facility] bmi 2023-05-07 09:30:00 42.19 kg/m2 Comm on [facility] blood pressure systolic 2023-05-07 09:30:00 130 mm[Hg] Common [facility] blood pressure diastolic 2023-05-07 09:30:00 78 mm[Hg] [facility] height 2023-03-17 13:45:00 61.5 [in_i] Comm on [facility] weight 2023-03-17 13:45:00 220 [lb_av] Comm on [facility] temperature 2023-03-17 13:45:00 98.2 [degF] Com [facility] bmi 2023-03-17 13:45:00 40.89 kg/m2 Comm on [facility] blood pressure systolic 2023-03-17 13:45:00 132 mm[Hg] Common [facility] blood pressure diastolic 2023-03-17 13:45:00 84 mm[Hg] Common [facility] height 2023-01-13 08:45:00 61.5 [in_i] Comm on [facility] weight 2023-01-13 08:45:00 221 [lb_av] Comm on [facility] temperature 2023-01-13 08:45:00 97.9 [degF] Com mon [facility] bmi 2023-01-13 08:45:00 41.08 kg/m2 Comm on [facility] blood pressure systolic 2023-01-13 08:45:00 128 mm[Hg] Common [facility] blood pressure diastolic 2023-01-13 08:45:00 82 mm[Hg] Common [facility] height 2023-01-07 09:30:00 61.5 [in_i] Comm on [facility] weight 2023-01-07 09:30:00 221 [lb_av] Comm on [facility] temperature 2023-01-07 09:30:00 97.7 [degF] Com mon [facility] bmi 2023-01-07 09:30:00 41.08 kg/m2 Comm on [facility] blood pressure systolic 2023-01-07 09:30:00 134 mm[Hg] Common [facility] blood pressure diastolic 2023-01-07 09:30:00 80 mm[Hg] [facility] Systolic blood pressure 2022-12-27 14:00:00 120 mm[Hg] [facility] Diastolic blood pressure 2022-12-27 14:00:00 87 mm[Hg] [facility] Heart rate 2022-12-27 14:00:00 102 /min [facility] Body height 2022-12-27 14:00:00 152.4 cm [facility] Body weight 2022-12-27 14:00:00 101.696 kg [facility] BMI 2022-12-27 14:00:00 43.79 kg/m2 [facility] Oxygen saturation in Arterial blood by Pulse oximetry 2022-12-27 14:00:00 98 /min [facility] Systolic blood pressure 2022-09-23 14:42:00 141 mm[Hg] [facility] Diastolic blood pressure 2022-09-23 14:42:00 74 mm[Hg] [facility] Heart rate 2022-09-23 14:42:00 76 /min [facility] Respiratory rate 2022-09-23 14:42:00 8 /min [facility] Oxygen saturation in Arterial blood by Pulse oximetry 2022-09-23 14:42:00 100 /min [facility] Body temperature 2022-09-23 14:07:00 36.5 Vika [facility] Body height 2022-09-17 19:30:00 154.9 cm [facility] Body weight 2022-09-17 19:30:00 113.399 kg [facility] BMI 2022-09-17 19:30:00 47.24 kg/m2 [facility] Systolic blood pressure 2022-09-23 12:46:00 144 mm[Hg] [facility] Diastolic blood pressure 2022-09-23 12:46:00 68 mm[Hg] [facility] Heart rate 2022-09-23 12:46:00 90 /min [facility] Body temperature 2022-09-23 12:46:00 36.56 Vika [facility] Respiratory rate 2022-09-23 12:46:00 17 /min [facility] Oxygen saturation in Arterial blood by Pulse oximetry 2022-09-23 12:46:00 95 /min [facility] Body height 2022-09-17 19:30:00 154.9 cm [facility] Body weight 2022-09-17 19:30:00 113.399 kg Univ [facility] BMI 2022-09-17 19:30:00 47.24 kg/m2 [facility] Systolic blood pressure 2022-09-19 16:02:00 125 mm[Hg] [facility] Diastolic blood pressure 2022-09-19 16:02:00 81 mm[Hg] [facility] Heart rate 2022-09-19 16:02:00 79 /min [facility] Body temperature 2022-09-19 16:02:00 36.94 Vika [facility] Respiratory rate 2022-09-19 16:02:00 18 /min [facility] Body height 2022-09-19 16:02:00 154.9 cm Univ [facility] Body weight 2022-09-19 16:02:00 104.327 kg Univ [facility] BMI 2022-09-19 16:02:00 43.46 kg/m2 Univ [facility] Oxygen saturation in Arterial blood by Pulse oximetry 2022-09-19 16:02:00 98 /min [facility] Body weight 2022-09-10 21:39:00 113.399 kg Univ [facility] BMI 2022-09-10 21:39:00 47.24 kg/m2 Univ [facility] Systolic blood pressure 2022-06-12 18:06:00 155 mm[Hg] [facility] Diastolic blood pressure 2022-06-12 18:06:00 84 mm[Hg] [facility] Heart rate 2022-06-12 18:06:00 90 /min [facility] Body temperature 2022-06-12 18:06:00 36 Vika [facility] Respiratory rate 2022-06-12 18:06:00 18 /min [facility] Oxygen saturation in Arterial blood by Pulse oximetry 2022-06-12 18:06:00 94 /min [facility] Body weight 2022-06-11 09:20:00 113.49 kg Univ [facility] BMI 2022-06-11 09:20:00 47.27 kg/m2 Univ [facility] Body height 2022-06-11 01:52:00 154.9 cm Univ [facility] Systolic blood pressure 2022-04-19 13:32:00 127 mm[Hg] [place] [facility] Diastolic blood pressure 2022-04-19 13:32:00 67 mm[Hg] [place] [facility] Heart rate 2022-04-19 13:32:00 88 /min [facility] Body height 2022-04-19 13:32:00 154.9 cm [facility] Body weight 2022-04-19 13:32:00 117.028 kg [facility] BMI 2022-04-19 13:32:00 48.75 kg/m2 [facility] Body height 2020-12-18 16:17:00 [...] POCT GLUCOSE (AUTOMATED) 2023-08-30 18:30:00 Jarred Barker [facility] POCT GLUCOSE (AUTOMATED) 2023-08-30 13:51:00 [facility] TROPONIN I 2023-08-30 09:22:00 Malgorzata Santos [facility] GLYCOSYLATED HEMOGLOBIN (A1C) 2023-08-30 04:51:00 Annamaria Barker [facility] TROPONIN I 2023-08-30 04:50:00 Malgorzata Santos [facility] POCT GLUCOSE (AUTOMATED) 2023-08-30 02:21:00 Jarred Barker [facility] URINE DRUG (IMMUNOASSAY) - COMPREHENSIVE DRUG SCREEN W/O REFLEX 2023-08-30 00:00:00 Marylou Driver [facility] CT ABDOMEN PELVIS W CONTRAST 2023-08-29 23:18:33 Marylou Driver [facility] CT CHEST PULMONARY ANGIOGRAM 2023-08-29 19:11:03 Marylou Driver [facility] URINALYSIS 2023-08-29 17:44:00 Marylou Driver [facility] XR CHEST 1 VW 2023-08-29 17:05:57 Marylou Driver [facility] LIPASE 2023-08-29 16:43:00 Marylou Driver [facility] MAGNESIUM 2023-08-29 16:43:00 Marylou Driver [facility] TROPONIN I 2023-08-29 16:43:00 Marylou Driver [facility] COMP. METABOLIC PANEL (83802) 2023-08-29 16:43:00 Marylou Driver [facility] CBC WITH DIFF 2023-08-29 16:43:00 Marylou Driver [facility] D-DIMER 2023-08-29 16:43:00 Marylou Driver [facility] HB ECG ROUTINE & RHYTHM STRIP 2023-08-29 16:32:22 Marylou Driver [facility] EXTERNAL PROVIDER - ADC CARDIOLOGY 2022-12-31 05:01:00 Doctor Unassigned, Goldsmith [facility] EXTERNAL PROVIDER - ADC REFERRAL 2022-12-20 05:01:00 Doctor Unassigned, [place]mith [facility] FL TIME OR (NON-REPORTABLE) 2022-09-23 14:53:25 Kayla Lutz [facility] FL TIME OR (NON-REPORTABLE) 2022-09-23 14:53:25 Kayla Lutz [facility] MAJOR JOINT INJECTION 2022-09-23 13:32:00 Inderjit Lutz [facility] POCT GLUCOSE (AUTOMATED) 2022-09-23 12:50:00 Kayla Lutz [facility] POCT GLUCOSE (AUTOMATED) 2022-09-23 12:50:00 Kayla Lutz [facility] HB ABO GROUPING 2022-09-23 12:45:00 Kayla Lutz [facility] HB ABO GROUPING 2022-09-23 12:45:00 Kayla Lutz [facility] DAY SURGERY - ADC 2022-09-23 06:01:00 Doctor Rena ssigned, [place]mith [facility] TROPONIN I 2022-09-19 15:38:00 RushingPedro Luis [facility] XR CHEST 2 VW 2022-09-19 14:38:32 Kayla Lutz Un [facility] ASSIGNMENT OF BENEFITS 2022-09-19 14:20:21 Docto r Unassigned, [place]mith [facility] EXTERNAL PROVIDER RECORDS 2022-09-17 06:01:00 Doctor Unassigned, [place] [facility] ASSIGNMENT OF BENEFITS 2022-09-10 21:32:35 Docto r Unassigned, [place]mith [facility] POCT GLUCOSE (AUTOMATED) 2022-06-12 18:08:00 Jarred Barker [facility] BASIC METABOLIC PANEL (NA, K, CL, CO2, GLUCOSE, BUN, CREATININE, CA) 2022-06-12 09:27:00 Jimmy Rowland [facility] CBC WITH DIFF 2022-06-12 09:27:00 Jimmy Rowland Un [facility] POCT GLUCOSE (AUTOMATED) 2022-06-12 07:56:00 Jarred Barker [facility] POCT GLUCOSE (AUTOMATED) 2022-06-12 01:45:00 Jarred Barker [facility] POCT GLUCOSE (AUTOMATED) 2022-06-11 22:56:00 Jarred Barker [facility] POCT GLUCOSE (AUTOMATED) 2022-06-11 18:11:00 [facility] POCT GLUCOSE (AUTOMATED) 2022-06-11 14:05:00 Jarred Barker [facility] PHOSPHORUS 2022-06-11 10:40:00 Robbi Muro [facility] CREATINE KINASE 2022-06-11 10:40:00 Robbi Muro [facility] AMYLASE 2022-06-11 10:40:00 Robbi Muro [facility] LIPASE 2022-06-11 10:40:00 [facility] MAGNESIUM 2022-06-11 10:40:00 Robbi Muro [facility] COMP. METABOLIC PANEL (52511) 2022-06-11 10:40:00 Robbi Muro [facility] CBC WITH DIFF 2022-06-11 10:40:00 Robbi Muro [facility] GLYCOSYLATED HEMOGLOBIN (A1C) 2022-06-11 10:40:00 Jimmy Rowland [facility] N-TERMINAL PRO-BNP 2022-06-11 10:40:00 Robbi Muro [facility] POCT GLUCOSE (AUTOMATED) 2022-06-11 07:56:00 Jarred Barker [facility] URINE CULTURE 2022-06-11 05:18:00 Robbi Muro [facility] PROTHROMBIN TIME / INR 2022-06-11 03:24:00 Thang Muro [facility] LACTIC ACID WHOLE BLOOD 2022-06-11 03:18:00 Jory Muro [facility] C-REACTIVE PROTEIN 2022-06-11 03:17:00 Robbi Muro [facility] SEDIMENTATION RATE 2022-06-11 03:17:00 Robbi Muro [facility] PROCALCITONIN 2022-06-11 03:17:00 Robbi Muro [facility] US OVARY TORSION 2022-06-10 22:01:56 [facility] 2022-06-10 19:14:00 Brodie Clemons [facility] CT ABDOMEN PELVIS WO CONTRAST 2022-06-10 18:36:36 Brodie Clemons [facility] PHOSPHORUS 2022-06-10 17:54:00 Robbi Muro [facility] URIC ACID 2022-06-10 17:54:00 Robbi Muro [facility] LIPASE 2022-06-10 17:54:00 Brodie Clemons [facility] MAGNESIUM 2022-06-10 17:54:00 Robbi Muro [facility] FERRITIN SERUM 2022-06-10 17:54:00 Robbi Muro [facility] HEPATIC FUNCTION PANEL (22125) (ALB,T.PRO,BILI T,BU/BC,ALT,AST,ALK PHOS) 2022-06-10 17:54:00 Brodie Clemons [facility] BASIC METABOLIC PANEL (NA, K, CL, CO2, GLUCOSE, BUN, CREATININE, CA) 2022-06-10 17:54:00 Brodie Clemons [facility] IRON PANEL 2022-06-10 17:54:00 Robbi Muro [facility] CBC WITH DIFF 2022-06-10 17:54:00 Brdoie Clemons [facility] N-TERMINAL PRO-BNP 2022-06-10 17:54:00 Robbi Muro [facility] CONSENT/REFUSAL FOR DIAGNOSIS AND TREATMENT 2022-06-10 17:38:54 Doctor Unassigned, [place] Encounters Start Date/Time End Date/Time Encounter Type Admission Type Attending Clinicians Care Facility Care Department Encounter ID Source 2023-09-16 15:59:01 Outpatient Nathan Estefanytimur GUTIERREZ [facility] [id number] [facility] 2023-09-15 13:03:00 Outpatient Janie Evansa BRENDA [facility] [id number] [facility] 2023-01-10 09:10:01 Outpatient Estefany Evans [facility] [id number] [facility] 2023-01-07 11:56:01 Outpatient Estefany Evans [facility] [id number] [facility] 2022-12-24 16:13:00 [facility] [id number] [facility] 2022-01-04 12:25:16 Outpatient KAYLA MAGDLAENO [facility] S[facility] [id number] [facility] 2021-08-29 12:51:44 Outpatient [facility] [id number] [facility] 2021-08-29 11:59:56 Outpatient [facility] [id number] [facility] 2021-08-29 11:28:05 Outpatient [facility] [id number] [facility] 2021-08-29 11:27:12 Outpatient [facility] [id number] [facility] 2021-06-01 02:46:[address] [facility] [id number] [facility] 2020-12-18 09:37:27 Outpatient [facility] [id number] [facility] 2020-12-18 09:37:27 Outpatient [facility] [id number] [facility] 2020-12-18 09:37:27 Outpatient [facility] [id number] [facility] 2020-12-15 12:03:34 Outpatient [facility] [id number] [facility] 2020-12-15 12:03:34 Outpatient [facility] [id number] [facility] 2020-12-15 12:00:05 Outpatient [facility] [id number] [facility] 2020-12-09 04:06:39 Outpatient LACEY CLEMENTS [facility] [id number] [facility] 2023-12-17 00:00:00 2023-12-17 00:00:00 (PO) Post Op [facility]LMLC ST[facility] [id number] [facility] 2023-12-11 00:00:00 2023-12-11 00:00:00 (TEL) STLMLC STLMLC [id number] [facility] 2023-12-01 00:00:00 2023-12-01 00:00:00 (TEL) STLMLC STLMLC [id number] [facility] 2023-11-28 00:00:00 2023-11-28 00:00:00 (F/U) Follow Up Visit STLMLC ST[facility] [id number] [facility] 2023-11-28 00:00:00 2023-11-28 00:00:00 (TEL) STLMLC STLMLC [id number] [facility] 2023-10-22 00:00:00 2023-10-22 00:00:00 Outpatient R BREE WELSH [facility] [id number] [facility] 2023-09-18 00:00:00 2023-09-18 00:00:00 (ESTPT) Establishe d Patient STLMLC STLMLC [id number] [facility] 2023-09-03 00:00:00 2023-09-03 00:00:00 Patient Secure Msg Doctor Unassigned, Goldsmith [facility] 1..114 350.1.13.10 4.2.7.2.686 [id number] [facility] 2023-09-01 00:00:00 2023-09-01 00:00:00 Transition of Care Veronika Espinoza [facility] 1..114 350.1.13.10 4.2.7.2.686 [id number] [facility] 2023-08-29 10:29:00 2023-08-30 14:13:00 Outpatient X ANNAMARIA BARKER [facility] [id number] [facility] 2023-08-29 10:29:00 2023-08-30 14:13:00 Emergency Dreanuradha, Annamaria Burgos [facility] 1..114 350.1.13.10 4.2.7.2.686 [id number] [facility] 2023-08-30 00:00:00 2023-08-30 00:00:00 Telephone Bree Welsh [facility] 1..114 350.1.13.10 4.2.7.2.686 [id number] [facility] 2023-05-23 00:00:00 2023-05-23 00:00:00 (PO) Post Op STLMLC STLMLC [id number] [facility] 2023-05-07 00:00:00 2023-05-07 00:00:00 NON-BILLAB LE VISIT STLMLC STLMLC [id number] [facility] 2023-04-29 00:00:00 2023-04-29 00:00:00 (TEL) STLMLC STLMLC [id number] [facility] 2023-04-08 00:00:00 2023-04-08 00:00:00 (TEL) STLMLC STLMLC [id number] [facility] 2023-04-03 00:00:00 2023-04-03 00:00:00 (TEL) STLMLC STLMLC [id number] [facility] 2023-03-19 00:00:00 2023-03-19 00:00:00 (TEL) STLMLC STLMLC [id number] [facility] 2023-03-17 00:00:00 2023-03-17 00:00:00 OFFICE VISIT ESTAB PT LEVEL 3 STLMLC STLMLC [id number] [facility] 2023-01-13 00:00:00 2023-01-13 00:00:00 OFFICE VISIT ESTAB PT LEVEL 3 STL[facility]C STLMLC [id number] [facility] 2023-01-07 00:00:00 2023-01-07 00:00:00 OFFICE VISIT ESTAB PT LEVEL 4 STLMLC STLMLC [id number] [facility] 2022-12-31 00:00:00 2022-12-31 00:00:00 Telephone Bree Welsh [facility] 1.2.840.114 350.1.13.10 4.2.7.2.686 [id number] [facility] 2022-12-31 00:00:00 2022-12-31 00:00:00 Orders Only Doctor Unassigned, Goldsmith [facility] 1.0.114 350.1.13.10 4.2.7.2.686 [id number] [facility] 2022-12-27 09:20:00 2022-12-27 09:20:00 [facility] 1..114 350.1.13.10 4.2.7.2.686 [id number] [facility] 2022-12-27 09:20:00 2022-12-27 09:12:16 Outpatient R BILLY [facility] [id number] [facility] 2022-12-26 09:40:00 2022-12-26 09:40:00 Outpatient R BILLY [facility] [id number] [facility] 2022-12-20 00:00:00 2022-12-20 00:00:00 Orders Only Doctor Unassigned, Goldsmith [facility] 1.84.114 350.1.13.10 4.2.7.2.686 [id number] [facility] 2022-09-23 06:38:00 2022-09-23 09:05:00 Outpatient R KAYLA LUTZ [facility] SOR [id number] [facility] 2022-09-23 06:38:00 2022-09-23 09:05:00 Hospital Encounter Kayla Lutz [facility] 1.84.114 350.1.13.10 4.2.7.2.686 [id number] [facility] 2022-09-23 07:25:00 2022-09-23 07:50:00 Surgery Kayla Lutz [facility] [place] 1.2.840.114 350.1.13.10 4.2.7.2.686 [id number] [facility] 2022-09-23 00:00:00 2022-09-23 00:00:00 Orders Only Doctor Unassigned, Goldsmith [facility] 1.2.840.114 350.1.13.10 4.2.7.2.686 [id number] [facility] 2022-09-20 00:00:00 2022-09-20 00:00:00 Telephone Bernice Colunga [facility] 1.2840.114 350.1.13.10 4.2.7.2.686 [id number] [facility] 2022-09-19 10:05:00 2022-09-19 11:39:00 Emergency X PEDRO LUIS RUSHING PEDRO LUIS [facility] ERT [id number] [facility] 2022-09-19 10:05:00 2022-09-19 11:39:00 Emergency RushingPedro Luis oliver [facility] 1.2840.114 350.1.13.10 4.2.7.2.686 [id number] [facility] 2022-09-19 10:15:00 2022-09-19 10:30:00 Cotton Cleaner Visit Pob, Adc Lab Main Kayla Lutz [facility] 1.2840.114 350.1.13.10 4.2.7.2.686 [id number] [facility] 2022-09-19 08:22:49 2022-09-19 10:04:00 Hospital Encounter Kayla Lutz [facility] 1.2840.114 350.1.13.10 4.2.7.2.686 [id number] [facility] 2022-09-19 08:21:46 2022-09-19 08:21:46 Outpatient R KAYLA LUTZ [facility] [id number] [facility] 2022-09-19 00:00:00 2022-09-19 00:00:00 Orders Only Doctor Unassigned, Goldsmith [facility] 1.2840.114 350.1.13.10 4.2.7.2.686 [id number] [facility] 2022-09-17 00:00:00 2022-09-17 00:00:00 Orders Only Doctor Unassigned, Goldsmith [facility] 1.2840.114 350.1.13.10 4.2.7.2.686 [id number] [facility] 2022-09-16 00:00:00 2022-09-16 00:00:00 Prep For Surgery Kayla Lutz [facility] 1.2.840.114 350.1.13.10 4.2.7.2.686 [id number] [facility] 2022-09-10 16:30:00 2022-09-10 23:59:00 Outpatient R BERNICE COLUNGA [facility] [id number] [facility] 2022-09-10 16:00:00 2022-09-10 16:15:00 Office Visit Bernice Colunga [facility] 1.2.840.114 350.1.13.10 4.2.7.2.686 [id number] [facility] 2022-09-10 00:00:00 2022-09-10 00:00:00 Orders Only Doctor Unassigned, Goldsmith [facility] 1.2840.114 350.1.13.10 4.2.7.2.686 [id number] [facility] 2022-09-10 00:00:00 2022-09-10 00:00:00 Telephone Keanu [facility] 1.840.114 350.1.13.10 4.2.7.2.686 [id number] [facility] 2022-09-09 00:00:00 2022-09-09 00:00:00 Telephone [facility] GREGOR?[facility] 1.84.114 350.1.13.10 4.2.7.2.686 [id number] [facility] 2022-06-13 00:00:00 2022-06-13 00:00:00 Transition of Care Chelo Cornejo 1.84.114 350.1.13.10 4.2.7.2.686 [id number] [facility] 2022-06-10 11:37:00 2022-06-12 16:00:00 Outpatient ANNAMARIA RAY [facility] [id number] [facility] [facility] 2022-06-10 11:37:00 2022-06-12 16:00:00 Emergency Brodie Clemons David [facility] 1.84.114 350.1.13.10 4.2.7.2.686 [id number] [facility] 2022-04-19 08:55:00 2022-04-19 23:59:00 Outpatient R KEANU BERNICE [facility] [id number] [facility] 2022-04-19 08:55:00 2022-04-19 23:59:00 [facility] 2001 [id number] [facility] 2022-04-19 08:45:00 2022-04-19 09:00:00 Office Visit Keanu [facility] GREGOR?[facility] 1.840.114 350.1.13.10 4.2.7.2.686 [id number] [facility] 2022-02-25 15:15:00 2022-02-25 15:15:00 Outpatient R BERNICE COLUNGA [facility] [id number] [facility] 2022-02-21 10:45:00 2022-02-21 10:45:00 Outpatient R BERNICE COLUNGA [facility] [id number] [facility] 2022-02-18 10:30:00 2022-02-18 10:30:00 Outpatient R FILIPE WIGGINS [facility] [id number] [facility] 2022-01-18 10:00:00 2022-01-18 10:00:00 Outpatient R CLAYTON GARRIDO [facility] [id number] [facility] 2022-01-17 00:00:00 2022-01-17 00:00:00 RefKayla Dietrich [facility] 1..840.114 350.1.13.10 4.2.7.2.686 [id number] [facility] 2022-01-14 06:59:00 2022-01-14 09:15:00 Outpatient KAYLA MAGDALENO [facility] [id number] [facility] 2022-01-14 06:59:00 2022-01-14 09:15:00 Hospital Encounter Kayla Lutz [facility] [place] 1.2.840.114 350.1.13.10 4.2.7.2.686 [id number] [facility] 2022-01-14 08:20:00 2022-01-14 09:12:00 Surgery Kayla Lutz [facility] 1.2.840.114 350.1.13.10 4.2.7.2.686 [id number] [facility] 2022-01-14 08:25:00 2022-01-14 08:39:00 Anesthesia Event LorinChrystalBharath Marilee Oliver Fajardo [facility] 1.20.114 350.1.13.10 4.2.7.2.686 [id number] [facility] 2022-01-14 00:00:00 2022-01-14 00:00:00 Orders Only Doctor Unassigned, Goldsmith [facility] 1.2840.114 350.1.13.10 4.2.7.2.686 [id number] [facility] 2022-01-11 07:39:32 2022-01-11 23:59:00 Hospital Encounter Kayla Lutz [facility] 1.2840.114 350.1.13.10 4.2.7.2.686 [id number] [facility] 2022-01-11 07:39:18 2022-01-11 23:59:00 Outpatient R LUTZKAYLA CADET [facility] [id number] [facility] 2022-01-11 08:30:00 2022-01-11 08:45:00 Cotton Cleaner Visit Pob, Adc Lab Main Kayla Lutz [facility] 1..114 350.1.13.10 4.2.7.2.686 [id number] [facility] 2022-01-11 08:15:00 2022-01-11 08:30:00 Laboratory Only Only, Adc Test Kayla Lutz [facility] 1.2.114 350.1.13.10 4.2.7.2.686 [id number] [facility] 2022-01-11 08:15:00 2022-01-11 08:15:00 Outpatient R LUTZKAYLA CADET [facility] [id number] [facility] 2022-01-11 00:00:00 2022-01-11 00:00:00 Telephone Kayla Lutz [facility] 1.2.840.114 350.1.13.10 4.2.7.2.686 [id number] [facility] 2022-01-04 11:15:00 2022-01-04 11:30:00 Office Visit Bernice Colunga [facility]?NATY [facility] 1.2.840.114 350.1.13.10 4.2.7.2.686 [id number] [facility] 2022-01-04 11:15:00 2022-01-04 11:15:00 Outpatient [facility] 2001 [id number] [facility] 2022-01-04 11:15:00 2022-01-04 11:15:00 Outpatient R KEANU BERNICE [facility] [id number] [facility] 2022-01-04 00:00:00 2022-01-04 00:00:00 Prep For Surgery Kayla Lutz [facility]?NATY [facility] OFF[facility] 1.2.840.114 350.1.13.10 4.2.7.2.686 [id number] [facility] 2021-12-20 10:00:00 2021-12-20 10:00:00 Outpatient R BOLIVAR KAYLA [facility] [id number] [facility] 2021-12-11 00:00:00 2021-12-11 00:00:00 Telephone Kayla Lutz [facility] FERNANDEZ [facility] 1.2.840.114 350.1.13.10 4.2.7.2.686 [id number] [facility] 2021-12-07 10:23:58 2021-12-07 23:59:00 Outpatient R KEANU BERNICE [facility] [id number] [facility] 2021-12-07 10:23:58 2021-12-07 23:59:00 Hospital Encounter Bernice Colunga [facility] 1..114 350.1.13.10 4.2.7.2.686 [id number] [facility] 2021-11-30 10:45:00 2021-11-30 11:13:44 [id number] 2021-11-30 10:45:00 2021-11-30 11:13:44 Office [facility] 1.114 350.1.13.10 4.2.7.2.686 [id number] [facility] 2021-11-30 10:45:00 2021-11-30 11:13:44 Outpatient [facility] 2001 [id number] [facility] 2021-11-28 00:00:00 2021-11-28 00:00:00 Telephone Kayla Lutz [facility] 1.114 350.1.13.10 4.2.7.2.686 [id number] [facility] 2021-11-28 00:00:00 2021-11-28 00:00:00 Orders Only Doctor Unassigned, Goldsmith [facility] 1..114 350.1.13.10 4.2.7.2.686 [id number] [id number] [facility] 2021-11-27 00:00:00 2021-11-27 00:00:00 Telephone Kayla Lutz [facility]?NATY [facility] 1..114 350.1.13.10 4.2.7.2.686 [id number] 198 [id number] [facility] 2021-11-22 00:00:00 2021-11-22 00:00:00 Orders Only Doctor Unassigned, Goldsmith [facility] 1.2840.114 350.1.13.10 4.2.7.2.686 [id number] [id number] [facility] 2021-11-21 00:00:00 2021-11-21 00:00:00 Telephone Kayla Lutz [facility] 1.2840.114 350.1.13.10 4.2.7.2.686 [id number] [facility] 2021-11-21 00:00:00 2021-11-21 00:00:00 Telephone Kayla Lutz [facility] 1.840.114 350.1.13.10 4.2.7.2.686 [id number] 198 [id number] [facility] 2021-11-19 00:00:00 2021-11-19 00:00:00 Telephone Bernice Colunga [facility] 1.2840.114 350.1.13.10 4.2.7.2.686 [id number] 198 [id number] [facility] 2021-11-19 00:00:00 2021-11-19 00:00:00 Telephone Kayla Lutz [facility] 1.2840.114 350.1.13.10 4.2.7.2.686 [id number] 198 [id number] [facility] 2021-11-12 00:00:00 2021-11-12 00:00:00 Telephone Kayla Lutz [facility] 1.2840.114 350.1.13.10 4.2.7.2.686 [id number] [facility] 2021-10-29 00:00:00 2021-10-29 00:00:00 Telephone Kayla Lutz [facility] 1..114 350.1.13.10 4.2.7.2.686 [id number] 198 [id number] [facility] 2021-10-26 00:00:00 2021-10-26 00:00:00 Telephone Kayla Lutz [facility]?NATY [facility] 1.84.114 350.1.13.10 4.2.7.2.686 [id number] 198 [id number] [facility] 2021-10-24 09:30:00 2021-10-24 10:20:40 Outpatient [facility] 2001 [id number] [facility] 2021-10-24 09:30:00 2021-10-24 10:20:40 Office Visit Keanu [facility] GREGOR?[facility] 1.84114 350.1.13.10 4.2.7.2.686 [id number] 198 [id number] [facility] 2021-10-24 09:30:00 2021-10-24 10:20:40 Outpatient [facility] 2001 [id number] [facility] 2021-10-24 09:30:00 2021-10-24 10:20:40 Office Visit Keanu [facility] GREGOR?[facility] 1.84114 350.1.13.10 4.2.7.2.686 [id number] [facility] 2021-10-19 00:00:00 2021-10-19 00:00:00 [facility] 1.84.114 350.1.13.10 4.2.7.2.686 [id number] 198 [id number] [facility] 2021-10-18 00:00:00 2021-10-18 00:00:00 Telephone Keanu [facility]?NATY [facility] OFF[facility]ILD[facility] 1.2.840.114 350.1.13.10 4.2.7.2.686 [id number] [facility] 2021-10-12 14:00:00 2021-10-12 15:00:16 Outpatient RENÉE VILLARREAL HOWARD [facility] [id number] [facility] 2021-10-02 00:00:00 2021-10-02 00:00:00 Telephone Keanu [facility]?NATY [facility] 1.2.840.114 350.1.13.10 4.2.7.2.686 [id number] [facility] 2021-10-02 00:00:00 2021-10-02 00:00:00 Orders Only Doctor Unassigned, Goldsmith [place] [address].2.840.114 350.1.13.10 4.2.7.2.686 [id number] [id number] [facility] 2021-09-27 00:00:00 2021-09-27 00:00:00 Orders Only Doctor Unassigned, Goldsmith [place] [address].2840.114 350.1.13.10 4.2.7.2.686 [id number] [id number] [facility] 2021-09-24 15:50:00 2021-09-24 23:59:00 Outpatient BERNICE REYES [facility] [id number] [facility] 2021-07-02 00:00:00 2021-07-02 00:00:00 (TEL) STLMLC STLMLC [id number] [facility] 2021-06-27 14:15:00 2021-06-27 14:15:00 Outpatient BERNICE REYES [facility] [id number] [facility] 2021-06-27 14:15:00 2021-06-27 14:15:00 Outpatient R BERNICE COLUNGA [facility] [id number] [facility] 2021-06-27 13:39:57 2021-06-27 13:54:57 Office Visit Keanu [facility] GREGOR?[facility] 1.2.840.114 350.1.13.10 4.2.7.2.686 [id number] [facility] 2021-06-26 15:45:00 2021-06-26 15:45:00 Outpatient [facility] 2001 [id number] [facility] 2021-06-26 15:45:00 2021-06-26 15:45:00 Outpatient [facility] 2001 [id number] [facility] 2021-06-25 00:00:00 2021-06-25 00:00:00 Telephone Keanu [facility] NAL BUILDING 1.2.840.114 350.1.13.10 4.2.7.2.686 [id number] [facility] 2021-05-23 00:00:00 2021-05-23 00:00:00 Telephone Keanu [facility] Gregor?Naty paredes [facility] 1.2.840.114 350.1.13.10 4.2.7.2.686 [id number] [facility] 2021-05-22 13:00:00 2021-05-22 23:59:00 Hospital Encounter Keanu [facility] Gregor?Naty paredes [facility] 1.2.840.114 350.1.13.10 4.2.7.2.686 [id number] [facility] 2021-05-22 16:15:00 2021-05-22 14:56:21 Outpatient R COLUNGABERNICE [facility] [id number] [facility] 2021-05-22 16:15:00 2021-05-22 14:56:21 Outpatient R COLUNGABERNICE [facility] [id number] [facility] 2021-05-22 12:47:56 2021-05-22 14:56:21 Office Visit KeanuBernice [facility] Ivon paredes [facility] 1.84.114 350.1.13.10 4.2.7.2.686 [id number] [facility] 2021-05-22 00:00:00 2021-05-22 00:00:00 Orders Only Doctor Unassigned, Goldsmith [facility] 1..114 350.1.13.10 4.2.7.2.686 [id number] [id number] [facility] 2021-04-23 10:10:00 2021-04-23 10:10:00 [facility] [id number] [facility] 2021-04-23 10:00:06 2021-04-23 10:00:17 Imm/Inj [facility]Ha[facility] .84.114 350.1.13.10 4.2.7.2.686 [id number] [facility] 2021-04-02 14:40:00 2021-04-02 14:40:00 [facility] [id number] [facility] 2021-04-02 13:41:25 2021-04-02 13:41:44 Imm/Inj Visit NurseHailey Immuniztoo Resendiz [facility] 1.84.114 350.1.13.10 4.2.7.2.686 [id number] [facility] 2021-01-26 00:00:00 2021-01-26 00:00:00 Lacey Granados [facility] 1.2.840.114 350.1.13.58 9.2.7.2.686 [id number] [facility] 2021-01-26 00:00:00 2021-01-26 00:00:00 Lacey Granados [facility] 1.2.840.114 350.1.13.58 9.2.7.2.686 [id number] 2020-12-18 09:22:21 2020-12-18 12:11:17 Office Visit Timbo Hayward Jonas [facility] 1 1.2.840.114 350.1.13.58 9.2.7.2.686 [id number] [facility] 2020-12-18 09:22:21 2020-12-18 12:11:17 Office Visit Jonas Barker [facility] 1 1.2.840.114 350.1.13.58 9.2.7.2.686 [id number] 2020-09-06 00:00:00 2020-09-06 00:00:00 (TEL) STLMLC STLMLC [id number] [facility] 2020-07-20 00:00:00 2020-07-20 00:00:00 (TEL) STLMLC STLMLC [id number] [facility] 2020-07-12 00:00:00 2020-07-12 00:00:00 (TEL) STLMLC STLMLC [id number] [facility] 2020-06-21 00:00:00 2020-06-21 00:00:00 Outpatient STLMLC STLMLC [id number] [facility] 2020-06-12 00:00:00 2020-06-12 00:00:00 Outpatient STLMLC STLMLC [id number] [facility] 2020-06-06 00:00:00 2020-06-06 00:00:00 Outpatient [facility] [id number] [facility] 2020-01-26 20:05:19 2020-01-26 21:04:00 Emergency [facility] 1.2.840.114 350.1.13.10 4.2.7.2.686 [id number] 2020-01-26 20:05:19 2020-01-26 21:04:00 Emergency [facility] 1.2.840.114 350.1.13.10 4.2.7.2.686 [id number] [facility] 2020-01-26 00:00:00 2020-01-26 00:00:00 Orders Only Doctor Unassigned, Goldsmith [facility] 1.2.840.114 350.1.13.10 4.2.7.2.686 [id number] [id number] 2020-01-26 00:00:00 2020-01-26 00:00:00 Orders Only Doctor Unassigned, Goldsmith [facility] 1.2.840.114 350.1.13.10 4.2.7.2.686 [id number] [facility] 2020-01-20 08:00:00 2020-01-20 08:00:00 Outpatient [facility] [id number] [facility] 2020-01-20 00:00:00 2020-01-20 00:00:00 Orders Only Doctor Unassigned, Goldsmith [facility] 1.2.840.114 350.1.13.10 4.2.7.2.686 [id number] [id number] [facility] 2020-01-20 00:00:00 2020-01-20 00:00:00 Orders Only Doctor Unassigned, Goldsmith [facility] 1.2.840.114 350.1.13.10 4.2.7.2.686 [id number] Results Test Description Test Time Test Comments Results Result Co mments Source [facility] GLUCOSE (AUTOMATED)2023-08-30 13:51:48* Test Item Value Reference Range Interpretation Comme [facility] POCT GLU (test code = 2462583186) 105 mg/dL 70-110 Lab Interpretation (test cod e = 27980-4) Normal [facility]2023-08-30 05:45:04* Test Item Value Reference Range Interpretation Comme [facility] HGB A1C (test code = 4548-4) 6.0 % 4.0-5.7 H SRIRAM (test code = SRIRAM) Reference RangesNormal: <5.7%Prediabetes: 5.7 - 6.4%Diabetes: > 6.5% Lab Interpretation (test code = 35418-1) Abnormal [facility] GLUCOSE (AUTOMATED)2023-08-30 02:23:04* Test Item Value Reference Range Interpretation Comme [facility] POCT GLU (test code = 7450827789) 101 mg/dL 70-110 Lab Interpretation (test cod e = 97805-5) Normal [facility] ABDOMEN PELVIS W [id number] 00:26:53PROCEDURE:CT ABDOMEN PELVIS W CONTRAST ORDERING PHYSICIAN: [...] lesions. Vazquez: (S/I) = seriesnumber / image numberUnLake Granbury Medical CenterCT CHEST PULMONARY ANGIOGRAM 2023-08-29 19:22:01CT SCAN OF [...] BONES/ CHEST WALL: No aggressive or acute abnormalities.[facility] AliceTRANUPAM [id number] 17:47:43* Test Item Value Reference Range Interpretation Comme nts TROPONIN I (test code = 5669401471) 0.001 ng/mL <=0.034 SRIRAM (test code = [...] of biotin. Lab Interpretation (test code = 47461-0) Normal [facility] AliceMagnesium2024-01-26 17:36:59* Test Item Value Reference Range Interpretation Comme nts MAGNESIUM (test code = 8271011870) 1.7 mg/dL 1.7-2.4 Lab Interpretation (test cod e = 24426-0) Normal [facility] AliceCOMP. METABOLIC PANEL (04098)2023-08-29 17:36:38* Test Item Value Reference Range Interpretation Comme nts NA (test code = 2725733265) 139 mmol/L 135-145 K (test code = 0174816960) 4.1 mmol/L 3.5-5.0 CL (test code = 5746996395) 107 mmol/L 98-108 CO2 TOTAL (test code = 7438396336) 25 mmol/L 23-31 AGAP (test code = 0448191841) 7 2-16 BUN (test code = 8153234277) 13 mg/dL 7-23 GLUCOSE (test code = 6464889668) 114 mg/dL 70-110 H CREATININE (test code = 7411005850) 0.75 mg/dL 0.50-1.04 TOTAL BILI (test code = 3145071387) 0.6 mg/dL 0.1-1.1 CALCIUM (test code = 4014225880) 9.6 mg/dL 8.6-10.6 T PROTEIN (test code = 8000898155) 7.7 g/dL 6.3-8.2 ALBUMIN (test code = 7399011364) 4.1 g/dL 3.5-5.0 ALK PHOS (test code = 8850311822) 121 U/L 34-122 ALTv (test code = 1742-6) 16 U/L 5-35 AST(SGOT) (test code = 1324806157) 24 U/L 13-40 eGFR (test code = 40822-4) 94.7 mL/min/1.73m2 CKD-EPI eGFR (2020). Assuming creatinine has been stable day-to-day for at least three months, the eGFR indicates Category G1 (>= 90 mL/min/1.73 m2) Lab Interpretation (test code = 87203-8) Abnormal [facility] AliceLIPASE2024-01-26 17:36:22* Test Item Value Reference Range Interpretation Comme nts LIPASE (test code = 2254776440) 82 U/L 0-220 Lab Interpretation (test cod e = 83263-6) Normal [facility] AliceD-[id number] 17:34:40* Test Item Value Reference Range Interpretation Comments D-DIMER (test code = 1336300111) 0.96 See_Comment H [Automated message] The system [...] a diagnosis. Lab Interpretation (test code = 38766-5) Abnormal [facility] Alice[facility] 1 [id number] 17:17:59EXAM: XR CHEST 1 VW 08/29/2023 10:59 AM HISTORY: 53 years-old Female with chest pain . TECHNIQUE: Portable AP view of the chest. COMPARISON: None. FINDINGS: Lines and tubes: None. Cardiomediastinal: The cardiomediastinal silhouette is normal in sizeaccounting for depth of inspiration. Lungs and pleura: Low lung volumes. Noacute infiltrate or effusion. Included osseous structures show no acute abnor mality.[facility] WITH [id number] 17:17:19* Test Item Value Reference Range Interpretation [...] g/dL 31.6-35.1 L RDW-SD (test code = 18215-1) 52.5 fL 39.0-49.9 H RDW-CV (test code = 788-0) 17.5 % 12.0-15.5 H PLT (test code = 777-3) 344 See_Comment [Automated messa ge] The system which generated this result transmitted reference range: 166 - 358 10*3/?L. The reference range was not used to interpret this result as normal/abnormal. MPV (test code = 53114-3) 10.0 fL 9.5-12.9 NRBC/100 WBC (test code = 8556587510) 0.0 See_Comment [Automated me ssage] The system which generated this result transmitted reference range: 0.0 - 10.0 /100 WBCs. The reference range was not used to interpret this result as normal/abnormal. NRBC x10^3 (test code = 8746836109) See_Comment [Automated messa ge] The system which generated this result transmitted reference range: 10*3/?L. The reference range was not used to interpret this result as normal/abnormal. GRAN MAT (NEUT) % (test code = 770-8) 68.0 % IMM GRAN % (test code = 7560054127) 0.20 % LYMPH % (test code = 736-9) 23.8 % MONO % (test code = 5905-5) 6.1 % EOS % (test code = 713-8) 1.6 % BASO % (test code = 706-2) 0.3 % GRAN MAT x10^3(ANC) (test code = 7073064204) 4.14 10*3/uL 1.88-7.09 IMM GRAN x10^3 (test code = 1463669626) 0.00-0.06 LYMPH x10^3 (test code = 731-0) 1.45 10*3/uL 1.32-3.29 MONO x10^3 (test code = 742-7) 0.37 10*3/uL 0.33-0.92 EOS x10^3 (test code = 711-2) 0.10 10*3/uL 0.03-0.39 BASO x10^3 (test code = 704-7) 0.01-0.07 Lab Interpretation (test code = 20693-9) Abnormal [facility] Alice[facility] Screen - This is a pre-surgical type and screen. ONCE [id number] 13:38:39* Test Item Value Reference Range Interpretation Comme nts ABO & RH (test code = 20) O Positive Performed at [facility] Laboratory Services - [facility] Blood [address] [place] [address] Free: [phone] No. [id number] IAT (test code = 1185) Negative Performed at [facility] Laboratory Services - [facility] Blood [address] Free: [phone] No. [id number] [facility] - This is a pre-surgical type and screen. ONCE [id number] 13:38:39* Test Item Value Reference Range Interpretation Comme nts ABO & RH (test code = 20) O Positive Performed at [facility] Laboratory Services - [facility] Blood [address] [place] [id number] Free: [phone] No. [id number] IAT (test code = 1185) Negative Performed at [facility] Laboratory [facility] Blood [address] [place], [place] [address]Jrkn Free: [phone] No. [id number] [facility] GLUCOSE (AUTOMATED)2022-09-23 12:53:02* Test Item Value Reference Range Interpretation Comme nts POCT GLU (test code = 8945549489) 105 mg/dL 70-110 Lab Interpretation (test cod e = 30450-6) Normal [facility] GLUCOSE (AUTOMATED)2022-09-23 12:53:02* Test Item Value Reference Range Interpretation Comme nts POCT GLU (test code = 7856058841) 105 mg/dL 70-110 Lab Interpretation (test cod e = 01770-9) [id number]* Test Item Value Reference Range Interpretation Comme nts TROPONIN I (test code = 6955150811) 0.003 ng/mL <=0.034 SRIRAM (test code = [...] of biotin. Lab Interpretation (test code = 82806-1) Normal [facility] GLUCOSE (AUTOMATED)2022-06-12 18:17:12* Test Item Value Reference Range Interpretation Comme nts POCT GLU (test code = 7599902092) 161 mg/dL 70-110 H Lab Interpretation (test cod e = 42899-9) Abnormal [facility] GLUCOSE (AUTOMATED)2022-06-12 08:00:25* Test Item Value Reference Range Interpretation Comme nts POCT GLU (test code = 0549599221) 122 mg/dL 70-110 H Lab Interpretation (test cod e = 36188-6) Abnormal [facility] GLUCOSE (AUTOMATED)2022-06-12 01:58:54* Test Item Value Reference Range Interpretation Comme nts POCT GLU (test code = 6124353210) 124 mg/dL 70-110 H Lab Interpretation (test cod e = 39369-2) Abnormal [facility] GLUCOSE (AUTOMATED)2022-06-11 22:59:46* Test Item Value Reference Range Interpretation Comme nts POCT GLU (test code = 2953190207) 115 mg/dL 70-110 H Lab Interpretation (test cod e = 13743-4) Abnormal [facility] GLUCOSE (AUTOMATED)2022-06-11 22:59:46* Test Item Value Reference Range Interpretation Comme nts POCT GLU (test code = 8842991630) 104 mg/dL 70-110 Lab Interpretation (test cod e = 67232-4) Normal [facility] GLUCOSE (AUTOMATED)2022-06-11 14:11:49* Test Item Value Reference Range Interpretation Comme nts POCT GLU (test code = 3629016173) 91 mg/dL 70-110 Lab Interpretation (test cod e = 22414-0) [facility] [id number] 09:07:50* Test Item Value Reference Range Interpretation Comme nts IRON (test code = 0005523824) 39 ug/dL 50-160 L TIBC (test code = 6353721885) 346 ug/dL 250-410 % FE SAT (test code = 3679759176) 11 % 20-50 L Lab Interpretation (test cod e = 74895-2) [facility]normal [facility] [id number] 08:27:06* Test Item Value Reference Range Interpretation Comme nts FERRITIN (test code = 8280549856) 7.5 ng/mL 11.0-264.0 L SRIRAM (test code = SRIRAM) Biotin has been reported to cause a negative bias, interpret results relative to patient's use of biotin. Lab Interpretation (test code = 22402-9) [facility]normal [facility]AL [id number] 08:01:40* Test Item Value Reference Range Interpretation Comme nts NT-proBNP (test code = 5756538978) 39 pg/mL See_Comment [Automated message] The system which generated this result transmitted reference range: <=125. The reference range was not used to interpret this result as normal/abnormal. SRIRAM (test code = SRIRAM) Biotin has been reported to cause a negative bias, interpret results relative to patient's use of biotin. Lab Interpretation (test code = 01754-1) [facility]2022-06-11 07:59:15* Test Item Value Reference Range Interpretation Comme nts POCT GLU (test code = 8903573034) 141 mg/dL 70-110 H Lab Interpretation (test cod e = 73737-2) [facility]normal [facility]2022-[facility]-08 07:59:15* Test Item Value Reference Range Interpretation Comme nts MAGNESIUM (test code = 7333848369) 1.6 mg/dL 1.7-2.4 L Lab Interpretation (test cod e = 86419-8) [facility]normal [facility]2022-[facility]-08 07:59:10* Test Item Value Reference Range Interpretation Comme nts PHOSPHORUS (test code = 3639760253) 2.6 mg/dL 2.5-5.0 Lab Interpretation (test cod e = 82044-7) [facility] Alice[facility]IC [id number] 07:59:05* Test Item Value Reference Range Interpretation Comme nts URIC ACID (test code = 4689953769) 3.0 mg/dL 2.9-6.0 Lab Interpretation (test cod e = 33609-6) [facility] METABOLIC PANEL (NA, K, CL, CO2, GLUCOSE, BUN, CREATININE, CA)2022-06-10 18:34:39* Test Item Value Reference Range Interpretation Comme nts NA (test code = 9053309107) 139 mmol/L 135-145 K (test code = 6035367960) 4.2 mmol/L 3.5-5.0 CL (test code = 2722323570) 105 mmol/L 98-108 CO2 TOTAL (test code = 5874299160) 28 mmol/L 23-31 AGAP (test code = 0514156495) 2-16 BUN (test code = 5363081777) 15 mg/dL 7-23 GLUCOSE (test code = 2170105995) 106 mg/dL 70-110 CREATININE (test code = 9358492325) 0.75 mg/dL 0.50-1.04 CALCIUM (test code = 6200641506) 9.0 mg/dL 8.6-10.6 eGFR (test code = 6739130655) mL/min/1.73m2 SRIRAM (test code = SRIRAM) Association [...] or urine or abnormalities in imaging tests). [facility] Alice[facility]AT[facility] FUN[facility] PAN[facility] (40376) (ALB,T.PRO,BILI T,BU/BC,ALT,AST,ALK PHOS)2022-06-10 18:34:39* Test Item Value Reference Range Interpretation Comme nts TOTAL BILI (test code = 9484421634) 0.4 mg/dL 0.1-1.1 BILI UNCON (test code = 2866379610) 0.2 mg/dL 0.1-1.1 BILI CONJ (test code = 1774648518) 0.0 mg/dL 0.0-0.3 T PROTEIN (test code = 5134921171) 6.9 g/dL 6.3-8.2 ALBUMIN (test code = 9805777655) 4.0 g/dL 3.5-5.0 ALK PHOS (test code = 6905820381) 139 U/L 34-122 H ALTv (test code = 1742-6) 23 U/L 5-35 AST(SGOT) (test code = 4627894736) 21 U/L 13-40 Lab Interpretation (test cod e = 19172-6) Abnormal [facility] AliceLIPASE2022-[facility]-07 18:34:39* Test Item Value Reference Range Interpretation Comme nts LIPASE (test code = 5461378189) 108 U/L 0-220 Lab Interpretation (test cod e = 93778-0) Normal [facility] AliceCB WITH [id number] 18:27:20* Test Item Value Reference Range Interpretation Comme nts WBC (test code = 6690-2) See_Comment [Automated PurpleTeal] The system which generated this result transmitted reference range: 4.30 - 11.10 10*3/?L. The reference range was not used to interpret this result as normal/abnormal. RBC (test code = 789-8) See_Comment [Automated [employer]] The system which generated this result transmitted [...] 31.8 g/dL 31.6-35.1 RDW-SD (test code = 50092-0) 48.3 fL 39.0-49.9 RDW-CV (test code = 788-0) 15.4 % 12.0-15.5 PLT (test code = 777-3) See_Comment [Automated messa ge] The system which generated this result transmitted reference range: 166 - 358 10*3/?L. The reference range was not used to interpret this result as normal/abnormal. MPV (test code = 37033-6) 10.4 fL 9.5-12.9 NRBC/100 WBC (test code = 2478876892) See_Comment [Automated me ssage] The system which generated this result transmitted reference range: 0.0 - 10.0 /100 WBCs. The reference range was not used to interpret this result as normal/abnormal. NRBC x10^3 (test code = 0379227437) See_Comment [Automated me ssage] The system which generated this result transmitted reference range: 10*3/?L. The reference range was not used to interpret this result as normal/abnormal. GRAN MAT (NEUT) % (test code = 770-8) 62.1 % IMM GRAN % (test code = 0965697909) 0.50 % LYMPH % (test code = 736-9) 29.1 % MONO % (test code = 5905-5) 7.3 % EOS % (test code = 713-8) 0.6 % BASO % (test code = 706-2) 0.4 % GRAN MAT x10^3(ANC) (test code = 0053760469) 5.30 10*3/uL 1.88-7.09 IMM GRAN x10^3 (test code = 3676964925) 0.04 10*3/uL 0.00-0.06 LYMPH x10^3 (test code = 731-0) 2.48 10*3/uL 1.32-3.29 MONO x10^3 (test code = 742-7) 0.62 10*3/uL 0.33-0.92 EOS x10^3 (test code = 711-2) 0.05 10*3/uL 0.03-0.39 BASO x10^3 (test code = 704-7) 0.03 10*3/uL 0.01-0.07 [facility] Consult Notes Date/Time Note Provider Source 2023-08-30 13:19:15 Associated Order(s): CONSULT CARDIOLOGY [facility] Cardiology Consult PCP: Estefany Evans Date of Service: 08/30/2023 CHIEF COMPLAINT/reason for consult: Chest pain HISTORY OF PRESENT ILLNESS This is a 53 years old female with past med history of type 2 diabetes and morbid obesity. She came to [facility] for chest pain. It is left-sided chest [...] Left 01/14/2022 Surgeon: Kayla Lutz MD; Location: [facility] OR [facility] JOINT SURGERY right shoulder MAJOR JOINT INJECTION Bilateral 09/23/2022 Surgeon: Kayla Lutz MD; Location: [facility] OR [facility] TUBAL LIGATION Family History [...] further assistance. Bree Welsh MD, FACC, IVAN Transportation Consultant Division of Cardiovascular Medicine [facility] - Health History and Physical Notes Date/Time Note Provider Source 2023-08-29 20:24:02 MEDICINE [facility] ADMIT H&P Date of Service: 08/29/2023 CHIEF [...] Left 01/14/2022 Surgeon: Kayla Lutz MD; Location: [facility] OR [facility] JOINT SURGERY right shoulder MAJOR JOINT INJECTION Bilateral 09/23/2022 Surgeon: Kayla Lutz MD; Location: [facility] OR [facility] TUBAL LIGATION Family History [...] Prophylaxis: DVT- enoxaparin Code Status: Full Code [facility] EMERGENCY PHYSICIAN STAFF [facility] Notes Date/Time Note Provider Source 2023-09-02 12:28:06 TRANSITIONAL CARE MANAGEMENT ASSESSMENT 09/02/2023 Jazmín Rowell [id number] Jazmín Rowell is a 53 year old /White female was admitted on 08/29/23 to [facility], ADC MED SURG. She was discharged on 08/30/23 with discharge disposition of HR- Routine Discharge. Admitting Physician: Annamaria Barker Discharge Diagnosis: Chest pain, unspecified type Linked Episodes Type: Episode: Status: Noted: Resolved: Last update: Updated by: TRANSITION OF CARE TCM Active 08/30/2023 09/02/2023 12:27 PM Veronika Espinoza RN Comments: TCM Tfw-qdne-dv-face outreach documentation: Discharge Assessment Chart Assessed: 09/02/23 TCM Outreach Completed: 09/02/23 Care Transitions Nurse CM made f/u call to patient post-discharge. No answer, call went to voicemail. CM left discreet message with CM's call back information. DEVIN Salazar, RN, CCRN Light Equipment Operator, Transitions of Care [email or web address] Appointments: IFER Espinoza RN [facility] 2023-09-01 14:35:55 Care Transitions Nurse CM made f/u call to patient post-discharge. No answer, call went to voicemail. CM left discreet message with CM's call back information. CM will try again at a later time. DEVIN Salazar, RN, CCRN Light Equipment Operator, Transitions of Care [email or web address] 2023-08-30 18:10:02 The patient was seen in the hospital for chest pain. Previously mildly abnormal nuclear stress test. Will proceed with CT coronary angiography to assess CAD. [facility] 2023-08-30 13:55:38 Problem: Discharge Planning Goal: Adequate [...] Julisa Parikh RN Outcome: Adequate for discharge [facility] 2023-08-30 01:54:12 Problem: Discharge Planning Goal: Adequate [...] as expected IFER Rodriguez RN [facility] 2023-08-29 19:15:25 Report given to Samantha KIDD in M/S. IFER James RN [facility] 2023-08-29 15:10:00 Patient given ice for po challenge, patient actively vomiting immediately after challenge. [facility] Allyn Berman RN [facility] 2023-08-29 13:50:00 Patient po challenge with ice [facility] 2023-08-29 10:51:43 Report received from BERNABE James [facility] 2023-08-29 10:26:14 Pt c/o left sided CP that started ~1.5 hours SUSTAINABLE DESIGN CONSULTANT accompanied by dizziness, SOB, and N/V. States N/V started last night. ICAL CELL CHANGER Lillie Pathak RN [facility] 2023-08-29 10:17:00 AdmissionCare Guideline: Vomiting - OBS, Observation Based on the indications selected for the patient, the bed status of Admit to Observation was determined to be MET The following indications were selected as present at the time of evaluation of the patient: - Vomiting that persists despite emergency department care AdmissionCare documentation entered by: Marylou Driver [facility] Eve, 27th edition, Copyright ? 2022 [facility] [place] [employer] [facility] All Rights Reserved. [id number]:31:55-06:00 [facility]
[2024-06-08] MEDS ORDERED: IBUPROFEN 200 MG TAB PO ONE (23:22)
--- NOTE | 2024-06-09 00:10 | EDPHYS ---
Physician Documentation [facility] Name: Jazmín Perez Age: 54 yrs Sex: Female : 1970 Arrival Date: 06/08/2024 Time: 22:55 Bed 16 Private MD: ED Physician Hernan Stevens HPI: 06/08 23:09 This 54 yrs old Female presents to ER via Unassigned with complaints of finger kb pain. 23:09 Pt is a 54 year old female who presents for pain to right middle finger that started kb one week ago. Denies injury or trauma. Reports history of arthritis. Pain aggravated by movement. . Historical: - Allergies: 23:30 Codeine; nauseous; jb4 - PMHx: 23:30 allergies; Anxiety; Diabetes - NIDDM; jb4 - PSHx: 23:30 Right hip; jb4 - Immunization history:: Adult Immunizations up to date. - Infectious Disease History:: Denies. - Social history:: Smoking status: Patient denies any tobacco usage or history of. ROS: 23:09 Constitutional: As per HPI kb Exam: 23:09 Constitutional: This is a well developed, well nourished patient who is awake, alert, kb and in no acute distress. Head/Face: Normocephalic, atraumatic. ENT: Moist Mucous membranes Cardiovascular: Regular rate Respiratory: Respirations even and unlabored. No increased work of breathing. Talking in full sentences Skin: Warm, dry with normal turgor. Normal color. Neuro: Awake and alert, GCS 15, oriented to person, place, time, and situation. 23:09 Musculoskeletal/extremity: Extremities: grossly normal except: noted in the right middle finger: pain, ROM: limited active range of motion due to pain, in the right middle finger, Circulation is intact in all extremities. Sensation intact. Vital Signs: 23:07 BP 114 / 75; Pulse 93; Resp 16; Temp 97.2(TE); Pulse Ox 100% on R/A; Weight 95.25 kg; jb4 Height 5 ft. 2 in. ; Pain 6/10; 23:07 Body Mass Index 38.41 (95.25 kg, 157.48 cm) jb4 23:07 Pain Scale: Adult jb4 MDM: 23:00 Medical Screening Exam initiated kb 23:11 Differential diagnosis: arthritis, tendonitis, sprain. Data reviewed: vital signs, kb nurses notes. 06/09 00:09 Counseling: I had a detailed discussion with the patient and/or guardian regarding the kb historical points, exam findings, and any diagnostic results supporting the discharge/admit diagnosis, radiology results, the need for outpatient follow up, a family practitioner, to return to the emergency department if symptoms worsen or persist or if there are any questions or concerns that arise at home. 06/08 23:08 Order name: Hand Right 3 View XRAY kb Administered Medications: 06/08 23:33 Not Given (Patient Refused): [id number] mg PO once jb4 Disposition: 06/09 00:58 Co-signature as Attending Physician, Hernan Stevens MD I agree with the assessment sp4 and plan of care. I reviewed the patient's care provided by the Advanced Practice Provider and agree with the diagnosis and treatment plan. Disposition Summary: 06/09/24 00:09 Discharge Ordered Notes: Location: Home kb Condition: Stable kb Diagnosis - Pain in right finger(s) kb Followup: kb - With: Emergency Department - When: As needed - Reason: Worsening of condition Followup: kb - With: Private Physician - When: 2 - 3 days - Reason: Recheck today's complaints, Continuance of care, Re-evaluation by your physician Discharge Instructions: - Discharge Summary Sheet kb - Musculoskeletal Pain kb Forms: - Medication Reconciliation Form kb - Antibiotic Education kb - Prescription Opioid Use kb - Patient Portal Instructions kb - Leadership Thank You Letter kb Prescriptions: - Diclofenac Sodium 75 mg Oral tablet, delayed release (enteric coated) - take 1 tablet ORAL route 2 times per day As needed; 30 tablet; Refills: 0, kb Product Selection Permitted Signatures: Dispatcher [employer] EDMS Nadine Beatty, LISETTE URRUTIA-Thanh Castaneda RN RN jb4 Hernan Stevens MD MD sp4 Corrections: (The following items were deleted from the chart) 06/08 2308 23:08 Hand Right 3 View+RAD.RAD.BRZ ordered. EDIN EDMS
--- NOTE | 2024-06-09 00:10 | ER ---
Nurse's Notes [facility] Name: Jazmín Perez Age: 54 yrs Sex: Female : 1970 Arrival Date: 06/08/2024 Time: 22:55 Bed 16 Private MD: Diagnosis: Pain in right finger(s) Presentation: 06/08 23:07 Chief complaint: Patient states: My right middle finger has been hurting for the past jb4 week and tonight I cannot bend it. Coronavirus screen: At this time, the client does not indicate any symptoms associated with coronavirus-19. Ebola Screen: No symptoms or risks identified at this time. Initial Sepsis Screen: Does the patient meet any 2 criteria? No. Patient's initial sepsis screen is negative. Does the patient have a suspected source of infection? No. Patient's initial sepsis screen is negative. Risk Assessment: Do you want to hurt yourself or someone else? Patient reports no desire to harm self or others. Onset of symptoms was June 01, 2024. Transition of care: patient was not received from another setting of care. 23:07 Method Of Arrival: Ambulatory jb4 23:07 Acuity: LOU 4 jb4 Historical: - Allergies: 23:30 Codeine; nauseous; jb4 - PMHx: 23:30 allergies; Anxiety; Diabetes - NIDDM; jb4 - PSHx: 23:30 Right hip; jb4 - Immunization history:: Adult Immunizations up to date. - Infectious Disease History:: Denies. - Social history:: Smoking status: Patient denies any tobacco usage or history of. Screenin:30 [facility] ED Fall Risk Assessment (Adult) History of falling in the last 3 months, jb4 including since admission No falls in past 3 months (0 pts) Confusion or Disorientation No (0 pts) Intoxicated or Sedated No (0 pts) Impaired Gait No (0 pts) Mobility Assist Device Used No (0 pt) Altered Elimination No (0 pt) Score/Fall Risk Level 0 - 2 = Low Risk Oriented to surroundings, Maintained a safe environment. Abuse screen: Denies threats or abuse. Nutritional screening: No deficits noted. Tuberculosis screening: No symptoms or risk factors identified. Assessment: 23:30 General: Appears in no apparent distress. comfortable, Behavior is calm, cooperative, jb4 appropriate for age. Pain: Complains of pain in dorsal aspect of middle phalanx of right middle finger and dorsal aspect of proximal phalanx of right middle finger Pain does not radiate. Pain currently is 6 out of 10 on a pain scale. Neuro: Level of Consciousness is awake, alert, obeys commands, Oriented to person, place, time, situation. Cardiovascular: Patient's skin is warm and dry. Respiratory: Airway is patent Respiratory effort is even, unlabored, Respiratory pattern is regular, symmetrical. Derm: Skin is intact, Skin is pink, warm \T\ dry. Musculoskeletal: Circulation, motion, and sensation intact. Range of motion: intact in all extremities. 06/09 00:33 Reassessment: Patient appears in no apparent distress at this time. Patient and/or jb4 family updated on plan of care and expected duration. Pain level reassessed. Patient is alert, oriented x 3, equal unlabored respirations, skin warm/dry/pink. Vital Signs: 06/08 23:07 BP 114 / 75; Pulse 93; Resp 16; Temp 97.2(TE); Pulse Ox 100% on R/A; Weight 95.25 kg; jb4 Height 5 ft. 2 in. ; Pain 6/10; 23:07 Body Mass Index 38.41 (95.25 kg, 157.48 cm) jb4 23:07 Pain Scale: Adult jb4 ED Course: 22:58 Patient arrived in ED. im 23:00 Nadine Beatty FNP-C [facility] kb 23:00 Hernan Stevens MD is Attending Physician. kb 23:30 Triage completed. jb4 23:30 Arm band placed on right wrist. jb4 23:30 Patient has correct armband on for positive identification. Bed in low position. Call jb4 light in reach. Side rails up X 1. Provided Education on: plan of care. 23:30 No provider procedures requiring assistance completed. Patient did not have IV access jb4 during this emergency room visit. 23:41 Hand Right 3 View XRAY In Process Unspecified. EDMS Administered Medications: 23:33 Not Given (Patient Refused): [id number] mg PO once jb4 Medication: 23:30 VIS not applicable for this client. jb4 Outcome: 06/09 00:09 Discharge ordered by . aimee 00:33 Discharged to home ambulatory, jb4 00:33 Condition: stable 00:33 Discharge instructions given to patient, Instructed on discharge instructions, follow up and referral plans. medication usage, Demonstrated understanding of instructions, follow-up care, medications, Prescriptions given X 1, 00:33 Patient left the ED. jb4 Signatures: Dispatcher [employer] EDNadine Jimenez, COSMETIC SALES ASSISTANT-C COSMETIC SALES ASSISTANT-Thanh Castaneda RN RN jb4 Calli Martinez Corrections: (The following items were deleted from the chart) 06/08 23:41 23:07 BP 114 / 75; Pulse 93bpm; Resp 16bpm; Pulse Ox 100% RA; 95.25 kg; Height 5 ft. 2 jb4 in.; BMI: 38.4; Pain 6/10, Adult; jb4
[2024-06-09 00:38] VITALS: BP 114/75; TEMP 97.2; O2SAT 100
--- NOTE | 2024-06-09 04:56 | RAD REPORT ---
CLINICAL HISTORY: PAIN. COMPARISON: None. TECHNIQUE: Three views of the right hand were obtained: PA, oblique, and lateral radiographs. FINDINGS: No acute osseous abnormality. Alignment is maintained. No radiopaque foreign object identified. IMPRESSION: No acute osseous abnormality identified. Electronically signed by: Dinah Long MD 06/09/2024 12:06 AM [facility] Due to temporary technical issues with the PACS/[employer] reporting system, reports are being americo d by the in-house radiologist without review as a courtesy to ensure prompt reporting the interpreting radiologist is fully responsible for the content of the report. Transcribed Date/Time: 06/09/2024 4:56 AM
== END 2024-06-09 00:33 | disposition home or self-care (01) ==
LOC: ER 22:55
DX: M79.644 Pain in right finger(s) (principal)

== ENCOUNTER 2024-07-24 21:18 | Emergency (ER) | payer OTHER ==
--- OUTSIDE RECORDS SUMMARY | 2024-07-24 21:23 | XMS REPORT | Continuity of Care Document ---
Author Name Unknown Address [address] 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 Phone ESTEFANY EVANS Primary Care Physician Unavaila Estefany Bergman Attending Clinician Unavailable KAYLA LUTZ Attending Clinician UnavailLACEY Guzman Attending Clinician Unava ilBREE Pelaez Attending Clinician Unavailable Doctor Unassigned, [place] Attending Clinician U michaela Espinoza RN, Veroniak Serra Attending Clinician Unavail able ANNAMARIA BARKER Attending Clinician Unavailable Yony GOMEZ, Marylou Sanabria Attending Clinician [phone] Annamaria Barker DO Attending Clinician [phone] Billy WOODSON, Bree Attending Clinician [phone] Kayla Lutz MD Attending Clinician [phone] Bernice Amaya Attending Clinician [phone] PEDRO LUIS RUSHING Attending Clinician Unavailable PEDRO LUIS RUSHING Attending Clinician Unavailable Pob, [facility] Main Attending Clinician UnavailBERNICE Conrad Attending Clinician Unavailable Chelo Cornejo RN Attending Clinician Unavailab carmelo Clemons MD, Brodie Evangelista Attending Clinician [phone] FILIPE WIGGINS Attending Clinician Unavailable HEMA CLAYTONALMA PALM Attending Clinician Unavail able Bharath Padgett CRNA Attending Clinician [phone] Oliver Hunt MD Attending Clinician [phone] Only, Adc Test Attending Clinician Unavailable RENÉE AGUILERA Attending Clinician Unavail able RENÉE AGUILERA Attending Clinician Unavail able ANDREW RESENDIZ Attending Clinician Unavail able Nurse, Adc Pob Immunization Attending Clinician Unavailable Andrew Resendiz DO Attending Clinician Jonas Barker MD Attending Clinician Calin Lazar DO Attending Clinician [phone] KAYLA LUTZ Admitting Clinician UnavailANNAMARIA Amado Admitting Clinician Unavailable Annamaria Barker DO Admitting Clinician [phone] Kayla Lutz MD Admitting Clinician [phone] BERNICE COLUNGA Admitting Clinician Unavailable Payers Payer Name Policy Type Policy Number Effective Date Expirati on Date Source [facility] [id number] 2021 00:00:00 [facility] [id number] 2015 00:00:00 [facility] [id number] 2020 00:00:00 [facility] DUAL COMP CHOICE PPO DSNP [id number] 2023 00:00:00 Ambetter from [facility] [id number] [facility] HIM AMBETTER FROM [facility] [id number] 2019 00:00:00 Ambetter from [facility] [id number] [facility] Ambetter from [facility] [id number] [facility] Ambetter from [facility] [id number] [facility] Problems Condition Name Condition Details Condition Category Status Onset Date Resolution Date Last Treatment Date Treating Clinician Comments Source Abnormal nuclear cardiac imaging test Abnormal nuclear cardiac imaging test Disease Active 08-30 00:00: 00 [facility] Chest pain, unspecifie d type Chest pain, unspecifie d type Disease Active 08-29 00:00: 00 [facility] Right lower quadrant abdominal pain Right lower quadrant abdominal pain Disease Active 2021-08 00:00: 00 [facility] Morbid obesity with body mass index of 40.0-49.9 Morbid obesity with body mass index of 40.0-49.9 Disease Active 01-15 00:00: 00 [facility] Arthritis of left hip Arthritis of left hip Disease Active 01-04 00:00: 00 Overview: Formattin g of this note might be different from the original. 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 non-steroi jaiden anti-infla mmatories (nsaid) assisted (current) use of non-steroi jaiden anti-infla mmatories (nsaid) Disease Active 03-31 00:00: 00 [facility] Other iron deficiency anemia Other iron deficiency anemia Disease Active 03-31 00:00: 00 [facility] Subcutaneo us nodules Subcutaneo us nodules Disease Active 03-31 00:00: 00 [facility] Bilateral knee pain Bilateral knee pain Disease Active 10-10 00:00: 00 [facility] Bilateral knee pain Bilateral knee pain Disease Active 10-10 00:00: 00 [facility] [id number] Pain, joint, hand, left Problem Active [facility] [id number] Primary osteoarthr itis of left hip Problem Active [facility] [id number] Trigger finger, right ring finger Problem Active [facility] [id number] Pain, joint, hand, right Problem Active [facility] [id number] Pain, joint, hip, right Problem [facility] [id number] Arthritis of right hip Problem [facility] [id number] Primary osteoarthr itis of right hip Problem [facility] [id number] Trochanter ic bursitis of left hip Problem [facility] [id number] Status post total replacemen t of left hip Problem [facility] Allergies, Adverse Reactions, Alerts Allergy Name Allergy Type Status Severity Reaction(s) Onset Date Inactive Date Treating Clinician Comments Source Codeine Propensi ty to adverse reaction s Active Nausea And Vomiting 09-07 00:00: 00 [facility] CODEINE DRUG INGREDI Active N/V 09-07 00:00: 00 [facility] codeine codeine Active Unknown [facility] Social History Social Habit Start Date Stop Date Quantity Comments Source History of Tobacco Use [facility] Sex Assigned At [facility] History SDOH Alcohol Std Drinks [facility] History SDOH Alcohol Binge [facility] Gender identity [facility] Sexual orientation [facility] Exposure to SARS-CoV-2 (event) 2022-12-17 00:00:00 2022-12-27 08:47:00 Not sure [facility] History of Social function 2022-09-23 00:00:00 2022-09-23 00:00:00 [facility] History SDOH Food Worry 2022-06-13 00:00:00 2022-06-13 00:00:00 1 [facility] History SDOH Food Scarcity 2022-06-13 00:00:00 2022-06-13 00:00:00 1 [facility] History SDOH Transport Med 2022-06-13 00:00:00 2022-06-13 00:00:00 2 [facility] History SDOH Transport Non-Med 2022-06-13 00:00:00 2022-06-13 00:00:00 2 [facility] Tobacco use and exposure 2022-06-11 00:00:00 2022-06-11 00:00:00 Smokeless tobacco non-user [facility] Education - What is the highest level of school you have completed or the highest degree you have received? 2022-06-10 00:00:00 2022-06-10 00:00:00 Some college, no degree [facility] Alcohol intake 2020-12-18 00:00:00 2020-12-18 00:00:00 Lifetime non-drinker (finding) [facility] History SDOH Alcohol Frequency 2020-12-18 00:00:00 2020-12-18 00:00:00 1 [facility] Smoking Status Start Date Stop Date Source Never smoked tobacco [facility] Medications Ordered Medication Name Filled Medication Name Start Date Stop Date Current Medication? Ordering Clinician Indication Dosage Frequency Signature (SIG) Comments Components Source amitriptyli ne (ELAVIL) tablet 150 mg 08-30 15:00: 00 Yes 150mg 150 mg, Oral, DAILY, First dose on 08/30/23 at 0900, Until Discontinu ed, Routine [facility] enoxaparin (LOVENOX) injection 40 mg 08-30 15:00: 00 Yes 40mg 40 mg, Subcutaneo us, DAILY, First dose on 08/30/23 at 0900, Until Discontinu ed, Routine [facility] amitriptyli ne 150 mg tablet 08-30 14:20: 33 Yes amitriptyl ine 150 mg tablet Take 1 tablet every day by oral route for 30 days. [facility] semaglutide (OZEMPIC) 1 mg/dose (4 mg/3 mL) PnIj 08-30 14:20: 33 Yes 1.25mg inject 1.25 mg under the skin weekly. [facility] Sliding Scale Insulin - Lispro (HumaLOG) 08-30 03:00: 00 Yes Subcutaneo us, TID MEALS+HS, First dose on Fri08/29/23 at 2100, Until Discontinu ed, Routine [facility] pantoprazol e (PROTONIX) injection 40 mg 08-30 02:00: 00 Yes 40mg 40 mg, Slow IV Push, Q24H, First dose on Fri08/29/23 at 2000, Until Discontinu ed [facility] NaCl 0.9% (NS) IV infusion 1,000 mL 08-30 01:15: 00 Yes 1000mL at 75 mL/hr, IV Infusion, CONTINUOUS , Starting on Fri08/29/23 at 1915, Until Discontinu ed, Routine [facility] iopamidol (ISOVUE 370-500 mL) injection 75 mL 08-30 00:15: 00 08-30 00:15 :00 No [id number] 75mL 75 mL, Intravenou s, ONCE, 1 dose, On Fri08/29/23 at 1815, Routine [facility] proMETHazin e (PHENERGAN) 12.5 mg in NS 50 mL IV piggyback (CNR) 08-30 00:01: 07 Yes 12.5mg 12.5 mg, IV Piggyback, at 200 mL/hr Administer over 15 Minutes, Q4HPRN, Starting on Fri08/29/23 at 1801, Until Discontinu ed, Routine, N/V unresponsi ve to Ondansetro n [facility] ondansetron (ZOFRAN (PF)) injection 4 mg 08-30 00:00: 10 Yes 4mg 4 mg, Slow IV Push, Q6HPRN, Starting on Fri08/29/23 at 1800, Until Discontinu ed, Routine, Nausea and Vomiting (N/V) [facility] glucagon (GLUCAGEN DIAGNOSTIC KIT) injection 1 mg 08-29 23:59: 42 Yes 1mg 1 mg, Intramuscu lar, PRN, Starting on Fri08/29/23 at 1759, Until Discontinu ed, KUNAL, Blood Glucose < or = 70 mg/dL and patient is NPO, unable to swallow or has mental changes. [facility] dextrose 50 % in water (D50W) injection 25 mL 08-29 23:59: 42 Yes 25mL 25 mL, Slow IV Push, PRN, Starting on Fri08/29/23 at 1759, Until Discontinu ed, KUNAL, Blood Glucose < or = 70 mg/dL and patient is NPO, unable to swallow or has mental status changes. [facility] FENTanyl PF (SUBLIMAZE (PF)) injection 25 mcg 08-29 23:59: 16 08-30 23:58 :16 No 25ug 25 mcg, Slow IV Push, Q3HPRN, Starting on Fri08/29/23 at 1759, Until 08/30/23 at 1758, Routine, Pain (scale 7-10) [facility] acetaminoph en (TYLENOL) tablet 650 mg 08-29 23:59: 10 Yes 650mg 650 mg, Oral, Q6HPRN, Starting on Fri08/29/23 at 1759, Until Discontinu ed, Routine, Pain (scale 1-3) [facility] haloperidol lactate (HALDOL) injection 2.5 mg 08-29 22:30: 00 08-30 00:08 :00 No 2.5mg 2.5 mg, Intravenou s, ONCE, 1 dose, On Fri08/29/23 at 1630, STAT [facility] morpHINE (4 mg/mL) injection 4 mg 08-29 21:00: 00 08-29 20:55 :00 No 4mg 4 mg, Slow IV Push, ONCE, 1 dose, On Fri08/29/23 at 1500, STAT [facility] Fesoterodin e (TOVIAZ) 4 mg tablet 08-29 20:23: 58 08-29 00:00 :00 No Toviaz 4 mg tablet,ext ended release [facility] DULoxetine 60 mg capsule 08-29 20:23: 58 08-29 00:00 :00 No 60mg Take 1 capsule by mouth in the morning. [facility] proMETHazin e (PHENERGAN) 12.5 mg in NS 50 mL IV piggyback (CNR) 08-29 20:00: 00 08-29 20:48 :00 No 12.5mg 12.5 mg, IV Piggyback, at 200 mL/hr Administer over 15 Minutes, ONCE, 1 dose, On Fri08/29/23 at 1400, KUNAL [facility] iopamidol (ISOVUE 370-500 mL) injection 100 mL 08-29 20:00: 00 08-29 20:00 :00 No [id number] 100mL 100 mL, Intravenou s, ONCE, 1 dose, On Fri08/29/23 at 1400, Routine [facility] morpHINE (4 mg/mL) injection 4 mg 08-29 18:30: 00 08-29 18:45 :00 No 4mg 4 mg, Slow IV Push, ONCE, 1 dose, On Fri08/29/23 at 1230, STAT [facility] ketorolac (TORADOL) injection 30 mg 08-29 17:45: 00 08-29 16:48 :00 No 30mg 30 mg, Slow IV Push, ONCE, 1 dose, On Fri08/29/23 at 1145, Routine [facility] NaCl 0.9% (NS) bolus infusion 1,000 mL 08-29 17:30: 00 08-29 17:42 :00 No 1000mL at 999 mL/hr, 1,000 mL, IV Infusion, ONCE, 1 dose, On Fri08/29/23 at 1130, KUNAL [facility] famotidine (PEPCID (PF)) injection 20 mg 08-29 16:45: 00 08-29 16:45 :00 No 20mg 20 mg, Slow IV Push, ONCE, 1 dose, On Fri08/29/23 at 1045, [facility] ondansetron (ZOFRAN (PF)) injection 4 mg 08-29 16:45: 00 08-29 16:44 :00 No 4mg 4 mg, Slow IV Push, ONCE, 1 dose, On Fri08/29/23 at 1045, [facility] Xarelto 10 MG Xarelto 10 MG 05 00:00: 00 No 1{table t} QD Xarelto 10 MG Lidocaine Lidocaine 01-13 00:00: 00 No 5mL [facility] Kenalog (Triamcinol one) Kenalog (Triamcinol one) 01-13 00:00: 00 No 2mL [facility] atorvastati n 10 mg tablet 12-27 09:06: 57 12-27 00:00 :00 No 10mg Take 1 tablet by mouth in the morning. [facility] amitriptyli ne 150 mg tablet 12-27 08:56: 31 Yes amitriptyl ine 150 mg tablet Take 1 tablet every day by oral route for 30 days. [facility] Fesoterodin e (TOVIAZ) 4 mg tablet 12-27 08:56: 31 Yes Toviaz 4 mg tablet,ext ended release [facility] DULoxetine 60 mg capsule 12-27 08:56: 31 Yes 60mg Take 1 capsule by mouth in the morning. [facility] semaglutide (OZEMPIC) 1 mg/dose (4 mg/3 mL) PnIj 12-27 08:56: 31 Yes 1.25mg inject 1.25 mg under the skin weekly. [facility] traMADoL 50 mg tablet 12-21 00:00: 00 08-29 00:00 :00 No TAKE 1 TABLET BY MOUTH EVERY 8 HOURS NEEDED FOR 10 DAYS [facility] FENTanyl PF (SUBLIMAZE (PF)) injection 25 mcg 09-23 14:14: 37 Yes 25ug 25 mcg, Slow IV Push, Q5MIN PRN, 4 doses, Starting on Fri09/23/22 at 0814, Until Discontinu ed, Routine, Pain (scale 4-6), PACU [facility] ondansetron (ZOFRAN (PF)) injection 4 mg 09-23 14:14: 37 09-23 14:16 :00 No 4mg 4 mg, Slow IV Push, PRN, 1 dose, Starting on Fri09/23/22 at 0814, Until Fri09/23/22 at 0816, Routine, Nausea and Vomiting (N/V), PACU [facility] triamcinolo ne acetonide (KENALOG) injection 09-23 13:55: 00 09-23 17:13 :49 No PRN, Starting on Fri09/23/22 at 0755, Until Fri09/23/22 at 1113, Routine, Intra-op [facility] bupivacaine (preserv free) 0.5% (SENSORCAIN E MPF) 0.5 % (5 mg/mL) injection 09-23 13:55: 00 09-23 17:13 :49 No PRN, Starting on Fri09/23/22 at 0755, Until Fri09/23/22 at 1113, Routine, Intra-op [facility] triamcinolo ne acetonide (KENALOG) injection 09-23 13:53: 00 09-23 17:13 :49 No PRN, Starting on Fri09/23/22 at 0753, Until Fri09/23/22 at 1113, Routine, Intra-op [facility] bupivacaine (preserv free) 0.5% (SENSORCAIN E MPF) 0.5 % (5 mg/mL) injection 09-23 13:53: 00 09-23 17:13 :49 No PRN, Starting on Fri09/23/22 at 0753, Until Fri09/23/22 at 1113, Routine, Intra-op [facility] lactated ringers IV infusion 1,000 mL 09-23 12:45: 00 09-23 13:02 :00 No 1000mL at 42 mL/hr, 1,000 mL, IV Infusion, ONCE, 1 dose, On 09/23/22 at 0645, Routine, DSU Pre-op [facility] amitriptyli ne 150 mg tablet 09-23 09:08: 45 Yes amitriptyl ine 150 mg tablet Take 1 tablet every day by oral route for 30 days. [facility] Fesoterodin e (TOVIAZ) 4 mg tablet 09-23 09:08: 45 Yes Toviaz 4 mg tablet,ext ended release [facility] DULoxetine 60 mg capsule 09-23 09:08: 45 Yes 60mg Take 60 mg by mouth daily. [facility] atorvastati n 10 mg tablet 09-23 09:08: 45 Yes 10mg Take 10 mg by mouth in the morning. [facility] semaglutide (OZEMPIC) 1 mg/dose (4 mg/3 mL) PnIj 09-23 09:08: 45 Yes 1.25mg inject 1.25 mg under the skin weekly. [facility] aspirin 325 mg tablet 09-23 00:00: 00 10-22 04:59 :00 No [id number] 325mg Take 1 tablet by mouth in the morning and 1 tablet in the evening. Take with meals. Do all this for 28 days. [facility] semaglutide (OZEMPIC) 1 mg/dose (4 mg/3 mL) PnIj 09-17 13:39: 54 Yes 1.25mg inject 1.25 mg under the skin weekly. [facility] atorvastati n 10 mg tablet 09-17 13:19: 59 Yes 10mg Take 10 mg by mouth in the morning. [facility] amitriptyli ne 150 mg tablet 09-17 13:09: 47 Yes amitriptyl ine 150 mg tablet Take 1 tablet every day by oral route for 30 days. [facility] Fesoterodin e (TOVIAZ) 4 mg tablet 09-17 13:09: 47 Yes Toviaz 4 mg tablet,ext ended release [facility] DULoxetine 60 mg capsule 09-17 13:09: 47 Yes 60mg Take 60 mg by mouth daily. [facility] cefTRIAXone (ROCEPHIN) 1,000 mg in [...] Urine
D uration of Therapy: 7 days [facility] lactobacill us acidophilus 2021-08 00:00: 00 07-14 05:59 :00 No [id number] .5mg Take 1 tablet by mouth in the morning for 30 days. [facility] polyethylen e glycol 3350 17 gram powder 2021-08 00:00: 00 07-14 05:59 :00 No [id number] 17g Take 1 Packet by mouth in the morning for 30 days. [facility] sennosides- docusate sodium (SENOKOT-S) 8.6-50 mg per tablet 1 tablet 2021-08 16:15: 00 Yes 1{tbl} 1 tablet, Oral, DAILY, First dose on Fri06/12/22 at 1015, Until Discontinu ed, Routine [facility] polyethylen e glycol 3350 powder 17 g 2021-08 16:15: 00 Yes 17g 17 g, Oral, DAILY, First dose on Fri06/12/22 at 1015, Until Discontinu ed, Routine [facility] amitriptyli ne 150 mg tablet 2021-08 16:08: 30 Yes amitriptyl ine 150 mg tablet Take 1 tablet every day by oral route for 30 days. [facility] Fesoterodin e (TOVIAZ) 4 mg tablet 2021-08 16:08: 30 Yes Toviaz 4 mg tablet,ext ended release [facility] DULoxetine 60 mg capsule 2021-08 16:08: 30 Yes 60mg Take 60 mg by mouth daily. [facility] proMETHazin e 25 mg tablet 2021-08 00:00: 00 09-17 00:00 :00 No [id number] 25mg Take 1 tablet by mouth every 4 (four) hours as needed for N/V unresponsi ve to Ondansetro n. [facility] docusate 100 mg capsule 2021-08 00:00: 00 07-13 05:59 :00 No [id number] 100mg Take 1 capsule by mouth in the morning and 1 capsule in the evening. Do all this for 30 days. [facility] HYDROcodone -acetaminop hen 5-325 mg tablet 2021-08 00:00: 00 06-20 05:59 :00 No [id number] 1{tbl} Take 1 tablet by mouth every 6 (six) hours as needed for Pain (scale 7-10) for up to 7 days. Indication s: acute pain [facility] ciprofloxac in HCl 500 mg tablet 2021-08 00:00: 00 06-20 05:59 :00 No [id number] 500mg Take 1 tablet by mouth every 12 (twelve) hours for 7 days. [facility] metroNIDAZO LE 250 mg tablet 2021-08 00:00: 00 06-20 05:59 :00 No [id number] 500mg Take 2 tablets by mouth every 12 (twelve) hours for 7 days. [facility] proMETHazin e (PHENERGAN) 25 mg in NaCl 0.9% (NS) 50 mL IV piggyback 2021-08 21:26: 59 Yes 25mg 25 mg, IV Piggyback, Q4HPRN, Starting on Fri06/11/22 at 1526, Until Discontinu ed, Routine, Nausea and Vomiting (N/V), N/V unresponsi ve to Ondansetro n [facility] acetaminoph en (TYLENOL) tablet 650 mg 2021-08 15:55: 26 Yes 650mg 650 mg, Oral, Q6HPRN, Starting on Fri06/11/22 at 0955, Until Discontinu ed, Routine, Pain (scale 1-3) [facility] enoxaparin (LOVENOX) injection 40 mg 2021-08 15:00: 00 Yes 40mg 40 mg, Subcutaneo us, DAILY, First dose on Fri06/11/22 at 0900, Until Discontinu ed, Routine [facility] DULoxetine (CYMBALTA) capsule 60 mg 2021-08 15:00: 00 Yes 60mg 60 mg, Oral, DAILY, First dose on Fri06/11/22 at 0900, Until Discontinu ed, Routine [facility] lactobacill us acidophilus tablet 0.5 mg 2021-08 15:00: 00 Yes .5mg 0.5 mg, Oral, DAILY, First dose on Fri06/11/22 at 0900, Until Discontinu ed, Routine [facility] Sliding Scale Insulin - Lispro (HumaLOG) + Fsbg Testing 2021-08 14:00: 00 Yes Subcutaneo us, TID MEALS, First dose on Fri06/11/22 at 0800, Until Discontinu ed, Routine [facility] morpHINE (4 mg/mL) injection 4 mg 2021-08 12:52: 08 Yes 4mg 4 mg, Slow IV Push, Q4HPRN, Starting on Fri06/11/22 at 0652, Until Discontinu ed, Routine, Pain (scale 7-10) [facility] cefTRIAXone (ROCEPHIN) 1,000 mg in [...] Urine
D uration of Therapy: 7 days [facility] docusate (COLACE) capsule 100 mg 2021-08 06:15: 00 Yes 100mg 100 mg, Oral, BID, First dose on Fri06/11/22 at 0015, Until Discontinu ed, Routine [facility] gabapentin (NEURONTIN) capsule 200 mg 2021-08 06:15: 00 Yes 200mg 200 mg, Oral, BID, First dose on Fri06/11/22 at 0015, Until Discontinu ed, Routine [facility] ondansetron (ZOFRAN (PF)) injection 4 mg 2021-08 06:06: 47 Yes 4mg 4 mg, Slow IV Push, Q6HPRN, Starting on Fri06/11/22 at 0006, Until Discontinu ed, Routine, Nausea and Vomiting (N/V) [facility] traMADoL (ULTRAM) tablet 50 mg 2021-08 06:06: 37 06-13 06:05 :37 No 50mg 50 mg, Oral, Q8HPRN, Starting on Fri06/11/22 at 0006, Until Sneha 06/13/22 at 0005, Routine, Pain (scale 4-6) [facility] FENTanyl PF (SUBLIMAZE (PF)) injection 50 mcg 2021-08 05:58: 16 06-11 12:52 :20 No 50ug 50 mcg, Slow IV Push, Q4HPRN, Starting on Fri06/10/22 at 2358, Until Fri06/11/22 at 0652, Routine, Pain (scale 7-10) [facility] NaCl 0.9% (NS) IV infusion 1,000 mL 2021-08 04:30: 00 Yes 1000mL at 100 mL/hr, IV Infusion, CONTINUOUS , Starting on Fri06/10/22 at 2230, Until Discontinu ed, Routine [facility] NaCl 0.9% (NS) bolus infusion 1,500 mL 2021-08 03:45: 00 06-11 03:33 :01 No 1500mL at 999 mL/hr, 1,500 mL, IV Infusion, ONCE, 1 dose, On Fri06/10/22 at 2145, KUNAL [facility] ondansetron (ZOFRAN (PF)) injection 4 mg 2021-08 03:17: 24 06-11 06:07 :04 No 4mg 4 mg, Slow IV Push, Q6HPRN, Starting on Fri06/10/22 at 2117, Until Fri06/11/22 at 0007, KUNAL, Nausea and Vomiting (N/V) [facility] metoclopram raven HCl (REGLAN) injection 10 mg 2021-08 03:17: 15 06-11 21:27 :54 No 10mg 10 mg, Slow IV Push, TIDPRN, Starting on Fri06/10/22 at 2117, Until Fri06/11/22 at 1527, Routine, Nausea and Vomiting (N/V) [facility] morpHINE (4 mg/mL) injection 4 mg 2021-08 03:16: 49 06-11 05:58 :48 No 4mg 4 mg, Slow IV Push, Q4HPRN, Starting on Fri06/10/22 at 2116, Until Fri06/10/22 at 2358, Routine, Pain (scale 7-10) [facility] oxybutynin 10 mg 24 hr tablet 2021-08 00:05: 07 06-11 00:00 :00 No oxybutynin chloride ER 10 mg tablet,ext ended release 24 hr [facility] semaglutide (OZEMPIC) 0.25 mg or 0.5 mg(2 mg/1.5 mL) PnIj 2021-08 00:05: 06-11 00:00 :00 No .25mg 0.25 mg. [facility] semaglutide , weight loss, (WEGOVY) 0.25 mg/0.5 mL PnIj SC injection 2021-08 00:05: 07 06-11 00:00 :00 No Wegovy 0.25 mg/0.5 mL subcutaneo us pen injector 0.25 mg SC qwk x4wk, then 0.5 mg SC qwk x4wk, then 1 mg SC qwk x4wk, then 1.7 mg SC qwk x4wk, then 2.4 mg SC qwk [facility] clindamycin 300 mg capsule 2021-08 00:05: 06-11 00:00 :00 No clindamyci n HCl 300 mg capsule Take 1 capsule 3 times a day by oral route for 10 days. [facility] NaCl 0.9% (NS) bolus infusion 500 mL 2021-08 00:00: 00 06-11 00:17 :00 No 500mL at 999 mL/hr, 500 mL, IV Infusion, ONCE, 1 dose, On Fri06/10/22 at 1800, STAT [facility] proMETHazin e (PHENERGAN) 25 mg in NaCl 0.9% (NS) 50 mL IV piggyback 2021-08 00:00: 00 06-11 00:06 :00 No 25mg 25 mg, IV Piggyback, ONCE, 1 dose, On Fri06/10/22 at 1800[facility] (PF[facility] 4 mg 2021-08 23:15: 00 06-10 22:25 :00 No 4mg 4 mg, Slow IV Push, ONCE, 1 dose, On Fri06/10/22 at 1715, [facility] morpHINE (4 mg/mL) injection 4 mg 2021-08 22:15: 00 06-10 21:21 :00 No 4mg 4 mg, Slow IV Push, ONCE, 1 dose, On Fri06/10/22 at 1615, STAT [facility] cefTRIAXone (ROCEPHIN) 1,000 mg in NaCl 0.9% (NS) 50 mL MINI-BAG 2021-08 20:15: 00 06-10 20:51 :00 No 1000mg 1,000 mg, IV Piggyback, ONCE, 1 dose, On Fri06/10/22 at 1415, Administer over 30 Minutes, 50 mL
Reas on for Anti-Infec tive: Documented Infection< br>Documen billy Infection Site: Urine
D uration of Therapy: 7 days [facility] ketorolac (TORADOL) injection 30 mg 2021-08 20:00: 00 06-10 19:01 :00 No 30mg 30 mg, Slow IV Push, ONCE, 1 dose, On Fri06/10/22 at 1400, Routine [facility] morpHINE (4 mg/mL) injection 4 mg 2021-08 19:30: 00 06-10 19:29 :00 No 4mg 4 mg, Slow IV Push, ONCE, 1 dose, On Fri06/10/22 at 1330, STAT [facility] ondansetron (ZOFRAN (PF)) injection 4 mg 2021-08 19:30: 00 06-10 19:29 :00 No 4mg 4 mg, Slow IV Push, ONCE, 1 dose, On Fri06/10/22 at 1330, KUNAL [facility] FENTanyl PF (SUBLIMAZE (PF)) injection 50 mcg 2021-08 18:01: 00 06-10 18:02 :00 No 50ug 50 mcg, Slow IV Push, ONCE, 1 dose, On Fri06/10/22 at 1215, Routine [facility] cefpodoxime 100 mg tablet 2021-08 00:00: 00 06-12 00:00 :00 No [id number] 100mg Take 1 tablet by mouth in the morning and 1 tablet in the evening. Do all this for 7 days. [facility] amitriptyli ne 150 mg tablet 01-14 09:33: 45 Yes amitriptyl ine 150 mg tablet Take 1 tablet every day by oral route for 30 days. [facility] Fesoterodin e (TOVIAZ) 4 mg tablet 01-14 09:33: 45 Yes Toviaz 4 mg tablet,ext ended release [facility] oxybutynin 10 mg 24 hr tablet 01-14 09:33: 45 Yes oxybutynin chloride ER 10 mg tablet,ext ended release 24 hr [facility] semaglutide (OZEMPIC) 0.25 mg or 0.5 mg(2 mg/1.5 mL) PnIj 01-14 09:33: 45 Yes .25mg 0.25 mg. [facility] semaglutide , weight loss, (WEGOVY) 0.25 mg/0.5 mL PnIj SC injection 01-14 09:33: 45 Yes Wegovy 0.25 mg/0.5 mL subcutaneo us pen injector 0.25 mg SC qwk x4wk, then 0.5 mg SC qwk x4wk, then 1 mg SC qwk x4wk, then 1.7 mg SC qwk x4wk, then 2.4 mg SC qwk [facility] clindamycin 300 mg capsule 01-14 09:33: 45 Yes clindamyci n HCl 300 mg capsule Take 1 capsule 3 times a day by oral route for 10 days. [facility] DULoxetine 60 mg capsule 01-14 09:33: 45 Yes 60mg Take 60 mg by mouth daily. [facility] gabapentin 100 mg capsule 11-29 00:00: 00 Yes 100mg Take 1 capsule by mouth in the morning and 1 capsule in the evening. [facility] gabapentin 100 mg capsule 11-29 00:00: 00 Yes 800mg Take 8 capsules by mouth in the morning and 8 capsules at noon and 8 capsules in the evening. [facility] lidocaine-p rilocaine 2.5-2.5 % cream 10-01 00:00: 00 Yes APPLY TO AFFECTED AREA EVERY DAY NEEDED [facility] eszopiclone 1 mg tablet 10-01 00:00: 00 09-17 00:00 :00 No 1mg Take 1 mg by mouth daily. [facility] methylPREDN ISolone (MEDROL, LUNA,) 4 mg tablets 09-24 00:00: 00 Yes [id number] 84mg Take 21 tablets by mouth SEE-INSTRU CTIONS. follow package directions [facility] methylPREDN ISolone (MEDROL, LUNA,) 4 mg tablets 2020-08 0 00:00: 00 Yes [id number] 84mg Take 21 tablets by mouth SEE-INSTRU CTIONS. follow package directions [facility] methocarbam ol (Robaxin) 750 MG tablet 12-18 00:00: 00 12-29 04:59 :00 No [id number] 750mg [id number] 3D Take 1 tablet (750 mg total) by mouth 3 (three) times a day if needed for muscle spasms for up to 10 days. [facility] metFORMIN (Glucophage ) 1000 MG tablet 12-14 00:00: 00 Yes [facility] benzonatate 100 mg capsule 01-25 00:00: 00 Yes [id number] 100mg Take 1 capsule by mouth 3 (three) times daily as needed for Cough. [facility] chlorphenir amine 4 mg tablet 01-25 00:00: 00 Yes [id number] 4mg Take 1 tablet by mouth every 6 (six) hours as needed for Allergies or Runny nose. [facility] LIDOCAINE HCL 10MG/ML LIDOCAINE HCL 10MG/ML 01-19 00:00: 00 No .5mL [facility] Depo-Medrol (Methylpred nisolone) 40mg Depo-Medrol (Methylpred nisolone) 40mg 01-19 00:00: 00 No .5mL [facility] loratadine 10 mg tablet 03-03 00:00: 00 Yes 10mg Take 1 tablet by mouth in the morning. [facility] metFORMIN 1,000 mg tablet 7-07 00:00: 00 09-17 00:00 :00 No TAKE 1 TABLET BY MOUTH TWICE A DAY NEEDED WITH MORNING AND EVENING MEAL [facility] famotidine 40 mg tablet 2-20 00:00: 00 09-17 00:00 :00 No 40mg Take 1 tablet by mouth daily. [facility] Xigduo XR 10-500 MG Xigduo XR 10-500 [...] Quad IM 3+ YRS 2021-06-24 00:00:00 Completed [facility] Influenza Virus Vaccine Quad IM 3+ YRS 2021-06-24 00:00:00 Completed [facility] Influenza Virus Vaccine Quad IM 3+ YRS 2021-06-24 00:00:00 Completed [facility] Influenza Virus Vaccine Quad IM 3+ YRS 2021-06-24 00:00:00 Completed [facility] Influenza Virus Vaccine Quad IM 3+ YRS 2021-06-24 00:00:00 Completed [facility] Influenza Virus Vaccine Quad IM 3+ YRS 2021-06-24 00:00:00 Completed [facility] Influenza Virus Vaccine Quad IM 3+ YRS 2021-06-24 00:00:00 Completed [facility] Influenza Virus Vaccine Quad IM 3+ YRS 2021-06-24 00:00:00 Completed [facility] Influenza Virus Vaccine Quad IM 3+ YRS 2021-06-24 00:00:00 Completed [facility] Influenza Virus Vaccine Quad IM 3+ YRS 2021-06-24 00:00:00 Completed [facility] Influenza Virus Vaccine Quad IM 3+ YRS 2021-06-24 00:00:00 Completed [facility] Influenza Virus Vaccine Quad IM 3+ YRS 2021-06-24 00:00:00 Completed [facility] Influenza Virus Vaccine Quad IM 3+ YRS 2021-06-24 00:00:00 Completed [facility] Influenza Virus Vaccine Quad IM 3+ YRS 2021-06-24 00:00:00 Completed [facility] Influenza Virus Vaccine Quad IM 3+ YRS 2021-06-24 00:00:00 Completed [facility] Influenza Virus Vaccine Quad IM 3+ YRS 2021-06-24 00:00:00 Completed [facility] Influenza Virus Vaccine Quad IM 3+ YRS 2021-06-24 00:00:00 Completed [facility] Influenza Virus Vaccine Quad IM 3+ YRS 2021-06-24 00:00:00 Completed [facility] Influenza Virus Vaccine Quad IM 3+ YRS 2021-06-24 00:00:00 Completed [facility] Influenza Virus Vaccine Quad IM 3+ YRS 2021-06-24 00:00:00 Completed [facility] SARS-COV-2 COVID-19 PFIZER VACCINE 2021-04-23 00:00:00 Completed [facility] SARS-COV-2 COVID-19 ALY/J&J VACCINE 2021-04-23 00:00:00 Completed [facility] SARS-COV-2 COVID-19 PFIZER VACCINE 2021-04-23 00:00:00 Completed [facility] SARS-COV-2 COVID-19 ALY/J&J VACCINE 2021-04-23 00:00:00 Completed [facility] SARS-COV-2 COVID-19 PFIZER VACCINE 2021-04-23 00:00:00 Completed [facility] SARS-COV-2 COVID-19 ALY/J&J VACCINE 2021-04-23 00:00:00 Completed [facility] SARS-COV-2 COVID-19 PFIZER VACCINE 2021-04-23 00:00:00 Completed [facility] SARS-COV-2 COVID-19 ALY/J&J VACCINE 2021-04-23 00:00:00 Completed [facility] SARS-COV-2 COVID-19 PFIZER VACCINE 2021-04-23 00:00:00 Completed [facility] SARS-COV-2 COVID-19 ALY/J&J VACCINE 2021-04-23 00:00:00 Completed [facility] SARS-COV-2 COVID-19 PFIZER VACCINE 2021-04-23 00:00:00 Completed [facility] SARS-COV-2 COVID-19 ALY/J&J VACCINE 2021-04-23 00:00:00 Completed [facility] SARS-COV-2 COVID-19 PFIZER VACCINE 2021-04-23 00:00:00 Completed [facility] SARS-COV-2 COVID-19 ALY/J&J VACCINE 2021-04-23 00:00:00 Completed [facility] SARS-COV-2 COVID-19 PFIZER VACCINE 2021-04-23 00:00:00 Completed [facility] SARS-COV-2 COVID-19 ALY/J&J VACCINE 2021-04-23 00:00:00 Completed [facility] SARS-COV-2 COVID-19 PFIZER VACCINE 2021-04-23 00:00:00 Completed [facility] SARS-COV-2 COVID-19 ALY/J&J VACCINE 2021-04-23 00:00:00 Completed [facility] SARS-COV-2 COVID-19 PFIZER VACCINE 2021-04-23 00:00:00 Completed [facility] SARS-COV-2 COVID-19 ALY/J&J VACCINE 2021-04-23 00:00:00 Completed [facility] SARS-COV-2 COVID-19 PFIZER VACCINE 2021-04-23 00:00:00 Completed [facility] SARS-COV-2 COVID-19 ALY/J&J VACCINE 2021-04-23 00:00:00 Completed [facility] SARS-COV-2 COVID-19 PFIZER VACCINE 2021-04-23 00:00:00 Completed [facility] SARS-COV-2 COVID-19 ALY/J&J VACCINE 2021-04-23 00:00:00 Completed [facility] SARS-COV-2 COVID-19 PFIZER VACCINE 2021-04-23 00:00:00 Completed [facility] SARS-COV-2 COVID-19 ALY/J&J VACCINE 2021-04-23 00:00:00 Completed [facility] SARS-COV-2 COVID-19 PFIZER VACCINE 2021-04-23 00:00:00 Completed [facility] SARS-COV-2 COVID-19 ALY/J&J VACCINE 2021-04-23 00:00:00 Completed [facility] SARS-COV-2 COVID-19 PFIZER VACCINE 2021-04-23 00:00:00 Completed [facility] SARS-COV-2 COVID-19 ALY/J&J VACCINE 2021-04-23 00:00:00 Completed [facility] SARS-COV-2 COVID-19 PFIZER VACCINE 2021-04-23 00:00:00 Completed [facility] SARS-COV-2 COVID-19 ALY/J&J VACCINE 2021-04-23 00:00:00 Completed [facility] SARS-COV-2 COVID-19 PFIZER VACCINE 2021-04-23 00:00:00 Completed [facility] SARS-COV-2 COVID-19 ALY/J&J VACCINE 2021-04-23 00:00:00 Completed [facility] SARS-COV-2 COVID-19 PFIZER VACCINE 2021-04-23 00:00:00 Completed [facility] SARS-COV-2 COVID-19 ALY/J&J VACCINE 2021-04-23 00:00:00 Completed [facility] SARS-COV-2 COVID-19 PFIZER VACCINE 2021-04-23 00:00:00 Completed [facility] SARS-COV-2 COVID-19 ALY/J&J VACCINE 2021-04-23 00:00:00 Completed [facility] SARS-COV-2 COVID-19 PFIZER VACCINE 2021-04-23 00:00:00 Completed [facility] SARS-COV-2 COVID-19 ALY/J&J VACCINE 2021-04-23 00:00:00 Completed [facility] SARS-COV-2 COVID-19 PFIZER VACCINE 2021-04-23 00:00:00 Completed [facility] SARS-COV-2 COVID-19 ALY/J&J VACCINE 2021-04-23 00:00:00 Completed [facility] SARS-COV-2 COVID-19 PFIZER VACCINE 2021-04-02 00:00:00 Completed [facility] SARS-COV-2 COVID-19 ALY/J&J VACCINE 2021-04-02 00:00:00 Completed [facility] SARS-COV-2 COVID-19 PFIZER VACCINE 2021-04-02 00:00:00 Completed [facility] SARS-COV-2 COVID-19 ALY/J&J VACCINE 2021-04-02 00:00:00 Completed [facility] SARS-COV-2 COVID-19 PFIZER VACCINE 2021-04-02 00:00:00 Completed [facility] SARS-COV-2 COVID-19 ALY/J&J VACCINE 2021-04-02 00:00:00 Completed [facility] SARS-COV-2 COVID-19 PFIZER VACCINE 2021-04-02 00:00:00 Completed [facility] SARS-COV-2 COVID-19 ALY/J&J VACCINE 2021-04-02 00:00:00 Completed [facility] SARS-COV-2 COVID-19 PFIZER VACCINE 2021-04-02 00:00:00 Completed [facility] SARS-COV-2 COVID-19 ALY/J&J VACCINE 2021-04-02 00:00:00 Completed [facility] SARS-COV-2 COVID-19 PFIZER VACCINE 2021-04-02 00:00:00 Completed [facility] SARS-COV-2 COVID-19 ALY/J&J VACCINE 2021-04-02 00:00:00 Completed [facility] SARS-COV-2 COVID-19 PFIZER VACCINE 2021-04-02 00:00:00 Completed [facility] SARS-COV-2 COVID-19 ALY/J&J VACCINE 2021-04-02 00:00:00 Completed [facility] SARS-COV-2 COVID-19 PFIZER VACCINE 2021-04-02 00:00:00 Completed [facility] SARS-COV-2 COVID-19 ALY/J&J VACCINE 2021-04-02 00:00:00 Completed [facility] SARS-COV-2 COVID-19 PFIZER VACCINE 2021-04-02 00:00:00 Completed [facility] SARS-COV-2 COVID-19 ALY/J&J VACCINE 2021-04-02 00:00:00 Completed [facility] SARS-COV-2 COVID-19 PFIZER VACCINE 2021-04-02 00:00:00 Completed [facility] SARS-COV-2 COVID-19 ALY/J&J VACCINE 2021-04-02 00:00:00 Completed [facility] SARS-COV-2 COVID-19 PFIZER VACCINE 2021-04-02 00:00:00 Completed [facility] SARS-COV-2 COVID-19 ALY/J&J VACCINE 2021-04-02 00:00:00 Completed [facility] SARS-COV-2 COVID-19 PFIZER VACCINE 2021-04-02 00:00:00 Completed [facility] SARS-COV-2 COVID-19 ALY/J&J VACCINE 2021-04-02 00:00:00 Completed [facility] SARS-COV-2 COVID-19 PFIZER VACCINE 2021-04-02 00:00:00 Completed [facility] SARS-COV-2 COVID-19 ALY/J&J VACCINE 2021-04-02 00:00:00 Completed [facility] SARS-COV-2 COVID-19 PFIZER VACCINE 2021-04-02 00:00:00 Completed [facility] SARS-COV-2 COVID-19 ALY/J&J VACCINE 2021-04-02 00:00:00 Completed [facility] SARS-COV-2 COVID-19 PFIZER VACCINE 2021-04-02 00:00:00 Completed [facility] SARS-COV-2 COVID-19 ALY/J&J VACCINE 2021-04-02 00:00:00 Completed [facility] SARS-COV-2 COVID-19 PFIZER VACCINE 2021-04-02 00:00:00 Completed [facility] SARS-COV-2 COVID-19 ALY/J&J VACCINE 2021-04-02 00:00:00 Completed [facility] SARS-COV-2 COVID-19 PFIZER VACCINE 2021-04-02 00:00:00 Completed [facility] SARS-COV-2 COVID-19 ALY/J&J VACCINE 2021-04-02 00:00:00 Completed [facility] SARS-COV-2 COVID-19 PFIZER VACCINE 2021-04-02 00:00:00 Completed [facility] SARS-COV-2 COVID-19 ALY/J&J VACCINE 2021-04-02 00:00:00 Completed [facility] SARS-COV-2 COVID-19 PFIZER VACCINE 2021-04-02 00:00:00 Completed [facility] SARS-COV-2 COVID-19 ALY/J&J VACCINE 2021-04-02 00:00:00 Completed [facility] SARS-COV-2 COVID-19 PFIZER VACCINE 2021-04-02 00:00:00 Completed [facility] SARS-COV-2 COVID-19 ALY/J&J VACCINE 2021-04-02 00:00:00 Completed [facility] SARS-COV-2 COVID-19 PFIZER VACCINE 2021-04-02 00:00:00 Completed [facility] SARS-COV-2 COVID-19 ALY/J&J VACCINE 2021-04-02 00:00:00 Completed [facility] Influenza Virus Vaccine Quad IM 3+ YRS 2020-05-12 00:00:00 Completed [facility] Influenza Virus Vaccine Quad IM 3+ YRS 2020-05-12 00:00:00 Completed [facility] Influenza Virus Vaccine Quad IM 3+ YRS 2020-05-12 00:00:00 Completed [facility] Influenza Virus Vaccine Quad IM 3+ YRS 2020-05-12 00:00:00 Completed [facility] Influenza Virus Vaccine Quad IM 3+ YRS 2020-05-12 00:00:00 Completed [facility] Influenza Virus Vaccine Quad IM 3+ 2020-05-12 00:00:00 Completed [facility] Influenza Virus Vaccine Quad IM 3+ 2020-05-12 00:00:00 Completed [facility] Influenza Virus Vaccine Quad IM 3+ 2020-05-12 00:00:00 Completed [facility] Influenza Virus Vaccine Quad IM 3+ 2020-05-12 00:00:00 Completed [facility] Influenza Virus Vaccine Quad IM 3+ 2020-05-12 00:00:00 Completed [facility] Influenza Virus Vaccine Quad IM 3+ YRS 2020-05-12 00:00:00 Completed [facility] Influenza Virus Vaccine Quad IM 3+ 2020-05-12 00:00:00 Completed [facility] Influenza Virus Vaccine Quad IM 3+ 2020-05-12 00:00:00 Completed [facility] Influenza Virus Vaccine Quad IM 2020-05-12 00:00:00 Completed [facility] Influenza Virus Vaccine Quad IM 2020-05-12 00:00:00 Completed [facility] Influenza Virus Vaccine Quad IM 32020-05-12 00:00:00 Completed [facility] Influenza Virus Vaccine Quad IM 32020-05-12 00:00:00 Completed [facility] Influenza Virus Vaccine Quad IM 3+ 2020-05-12 00:00:00 Completed [facility] Influenza Virus Vaccine Quad IM 3+ 2020-05-12 00:00:00 Completed [facility] Influenza Virus Vaccine Quad IM 3+ 2020-05-12 00:00:00 Completed [facility] Influenza Virus Vaccine Quad IM 3+ 2020-05-12 00:00:00 Completed [facility] LIDOCAINE HCL 10MG/ML LIDOCAINE HCL 10MG/ML 2020-01-20 08:45:00 Completed [facility] Depo-Medrol (Methylprednisolone ) 40mg Depo-Medrol (Methylprednisolon e) 40mg 2020-01-20 08:44:00 Completed [facility] Depo-Medrol (Methylprednisolone ) 40mg Depo-Medrol (Methylprednisolon e) 40mg 2020-01-20 08:43:00 Completed [facility] Influenza Virus Vaccine Quad IM 3+ YRS 2019-09-13 00:00:00 Completed [facility] Influenza Virus Vaccine Quad IM 3+ YRS 2019-09-13 00:00:00 Completed [facility] Influenza Virus Vaccine Quad IM 3+ YRS 2019-09-13 00:00:00 Completed [facility] Influenza Virus Vaccine Quad IM 3+ YRS 2019-09-13 00:00:00 Completed [facility] Influenza Virus Vaccine Quad IM 3+ YRS 2019-09-13 00:00:00 Completed [facility] Influenza Virus Vaccine Quad IM 3+ YRS 2019-09-13 00:00:00 Completed [facility] Influenza Virus Vaccine Quad IM 3+ YRS 2019-09-13 00:00:00 Completed [facility] Influenza Virus Vaccine Quad IM 3+ YRS 2019-09-13 00:00:00 Completed [facility] Influenza Virus Vaccine Quad IM 3+ YRS 2019-09-13 00:00:00 Completed [facility] Influenza Virus Vaccine Quad IM 3+ YRS 2019-09-13 00:00:00 Completed [facility] Influenza Virus Vaccine Quad IM 3+ YRS 2019-09-13 00:00:00 Completed [facility] Influenza Virus Vaccine Quad IM 3+ YRS 2019-09-13 00:00:00 Completed [facility] Influenza Virus Vaccine Quad IM 3+ YRS 2019-09-13 00:00:00 Completed [facility] Influenza Virus Vaccine Quad IM 3+ YRS 2019-09-13 00:00:00 Completed [facility] Influenza Virus Vaccine Quad IM 3+ YRS 2019-09-13 00:00:00 Completed [facility] Influenza Virus Vaccine Quad IM 3+ YRS 2019-09-13 00:00:00 Completed [facility] Influenza Virus Vaccine Quad IM 3+ YRS 2019-09-13 00:00:00 Completed [facility] Influenza Virus Vaccine Quad IM 3+ YRS 2019-09-13 00:00:00 Completed [facility] Influenza Virus Vaccine Quad IM 3+ YRS 2019-09-13 00:00:00 Completed [facility] Influenza Virus Vaccine Quad IM 3+ YRS 2019-09-13 00:00:00 Completed [facility] Influenza Virus Vaccine Quad IM 3+ YRS 2019-09-13 00:00:00 Completed [facility] SARS-COV-2 COVID-19 PFIZER VACCINE Unknown Completed [facility] SARS-COV-2 COVID-19 ALY/J&J VACCINE Unknown Completed [facility] Influenza Virus Vaccine Quad IM 3+ YRS Unknown Completed [facility] SARS-COV-2 COVID-19 PFIZER VACCINE Unknown Completed [facility] SARS-COV-2 COVID-19 ALY/J&J VACCINE Unknown Completed [facility] Influenza Virus Vaccine Quad IM 3+ YRS Unknown Completed [facility] SARS-COV-2 COVID-19 PFIZER VACCINE Unknown Completed [facility] SARS-COV-2 COVID-19 ALY/J&J VACCINE Unknown Completed [facility] Influenza Virus Vaccine Quad IM 3+ YRS Unknown Completed [facility] SARS-COV-2 COVID-19 PFIZER VACCINE Unknown Completed [facility] SARS-COV-2 COVID-19 ALY/J&J VACCINE Unknown Completed [facility] Influenza Virus Vaccine Quad IM 3+ YRS Unknown Completed [facility] Vital Signs Vital Name Observation Time Observation Value Comments S ource height 2023-12-17 09:00:00 61.5 [in_i] Comm on [facility] weight 2023-12-17 09:00:00 213 [lb_av] Comm on [facility] temperature 2023-12-17 09:00:00 97.6 [degF] Com mon [facility] bmi 2023-12-17 09:00:00 39.59 kg/m2 Comm on [facility] blood pressure systolic 2023-12-17 09:00:00 126 mm[Hg] Common [facility] blood pressure diastolic 2023-12-17 09:00:00 78 mm[Hg] Common [facility] height 2023-11-28 08:00:00 61.5 [in_i] Comm on [facility] weight 2023-11-28 08:00:00 212 [lb_av] Comm on [facility] temperature 2023-11-28 08:00:00 97.4 [degF] Com mon [facility] bmi 2023-11-28 08:00:00 39.4 kg/m2 Commo n [facility] blood pressure systolic 2023-11-28 08:00:00 124 mm[Hg] [facility] blood pressure diastolic 2023-11-28 08:00:00 81 mm[Hg] [facility] height 2023-09-18 14:30:00 61.5 [in_i] Comm on [facility] weight 2023-09-18 14:30:00 217.6 [lb_av] Co mmon [facility] temperature 2023-09-18 14:30:00 97.9 [degF] Com [facility] bmi 2023-09-18 14:30:00 40.44 kg/m2 Comm on [facility] blood pressure systolic 2023-09-18 14:30:00 128 mm[Hg] [facility] blood pressure diastolic 2023-09-18 14:30:00 83 mm[Hg] [facility] Systolic blood pressure 2023-08-30 17:41:00 129 mm[Hg] [facility] Diastolic blood pressure 2023-08-30 17:41:00 73 mm[Hg] [facility] Heart rate 2023-08-30 17:41:00 93 /min [facility] Body temperature 2023-08-30 17:41:00 36.67 Vika [facility] Respiratory rate 2023-08-30 17:41:00 18 /min [facility] Oxygen saturation in Arterial blood by Pulse oximetry 2023-08-30 17:41:00 97 /min [facility] Body height 2023-08-30 01:53:00 157.5 cm [facility] Body weight 2023-08-30 01:53:00 103.42 kg [facility] BMI 2023-08-30 01:53:00 41.70 kg/m2 [facility] height 2023-05-23 10:30:00 61.5 [in_i] Comm on [facility] weight 2023-05-23 10:30:00 225 [lb_av] Comm on [facility] temperature 2023-05-23 10:30:00 98.1 [degF] Com mon [facility] bmi 2023-05-23 10:30:00 41.82 kg/m2 Comm on [facility] blood pressure systolic 2023-05-23 10:30:00 131 mm[Hg] [facility] blood pressure diastolic 2023-05-23 10:30:00 82 mm[Hg] [facility] height 2023-05-07 09:30:00 61.5 [in_i] Comm on [facility] weight 2023-05-07 09:30:00 227 [lb_av] Comm on [facility] temperature 2023-05-07 09:30:00 97.6 [degF] Com [facility] bmi 2023-05-07 09:30:00 42.19 kg/m2 Comm on [facility] blood pressure systolic 2023-05-07 09:30:00 130 mm[Hg] [facility] blood pressure diastolic 2023-05-07 09:30:00 78 mm[Hg] [facility] height 2023-03-17 13:45:00 61.5 [in_i] Comm on [facility] weight 2023-03-17 13:45:00 220 [lb_av] Comm on [facility] temperature 2023-03-17 13:45:00 98.2 [degF] Com [facility] bmi 2023-03-17 13:45:00 40.89 kg/m2 Comm on [facility] blood pressure systolic 2023-03-17 13:45:00 132 mm[Hg] [facility] blood pressure diastolic 2023-03-17 13:45:00 84 mm[Hg] [facility] height 2023-01-13 08:45:00 61.5 [in_i] Comm on [facility] weight 2023-01-13 08:45:00 221 [lb_av] Comm on [facility] temperature 2023-01-13 08:45:00 97.9 [degF] Com mon [facility] bmi 2023-01-13 08:45:00 41.08 kg/m2 Comm on [facility] blood pressure systolic 2023-01-13 08:45:00 128 mm[Hg] [facility] blood pressure diastolic 2023-01-13 08:45:00 82 mm[Hg] [facility] height 2023-01-07 09:30:00 61.5 [in_i] Comm on [facility] weight 2023-01-07 09:30:00 221 [lb_av] Comm on [facility] temperature 2023-01-07 09:30:00 97.7 [degF] Com mon [facility] bmi 2023-01-07 09:30:00 41.08 kg/m2 Comm on [facility] blood pressure systolic 2023-01-07 09:30:00 134 mm[Hg] [facility] blood pressure diastolic 2023-01-07 09:30:00 80 mm[Hg] [facility] Systolic blood pressure 2022-12-27 14:00:00 120 mm[Hg] [facility] Diastolic blood pressure 2022-12-27 14:00:00 87 mm[Hg] [facility] Heart rate 2022-12-27 14:00:00 102 /min [facility] Body height 2022-12-27 14:00:00 152.4 cm [facility] Body weight 2022-12-27 14:00:00 101.696 kg [facility] BMI 2022-12-27 14:00:00 43.79 kg/m2 [facility] Oxygen saturation in Arterial blood by Pulse oximetry 2022-12-27 14:00:00 98 /min [facility] Systolic blood pressure 2022-09-23 14:42:00 141 mm[Hg] [facility] Diastolic blood pressure 2022-09-23 14:42:00 74 mm[Hg] [facility] Heart rate 2022-09-23 14:42:00 76 /min [facility] Respiratory rate 2022-09-23 14:42:00 8 /min [facility] Oxygen saturation in Arterial blood by Pulse oximetry 2022-09-23 14:42:00 100 /min [facility] Body temperature 2022-09-23 14:07:00 36.5 Vika [facility] Body height 2022-09-17 19:30:00 154.9 cm [facility] Body weight 2022-09-17 19:30:00 113.399 kg [facility] BMI 2022-09-17 19:30:00 47.24 kg/m2 [facility] Systolic blood pressure 2022-09-23 12:46:00 144 mm[Hg] [facility] Diastolic blood pressure 2022-09-23 12:46:00 68 mm[Hg] [facility] Heart rate 2022-09-23 12:46:00 90 /min [facility] Body temperature 2022-09-23 12:46:00 36.56 Vika [facility] Respiratory rate 2022-09-23 12:46:00 17 /min [facility] Oxygen saturation in Arterial blood by Pulse oximetry 2022-09-23 12:46:00 95 /min [facility] Body height 2022-09-17 19:30:00 154.9 cm [facility] Body weight 2022-09-17 19:30:00 113.399 kg [facility] BMI 2022-09-17 19:30:00 47.24 kg/m2 [facility] Systolic blood pressure 2022-09-19 16:02:00 125 mm[Hg] [facility] Diastolic blood pressure 2022-09-19 16:02:00 81 mm[Hg] [facility] Heart rate 2022-09-19 16:02:00 79 /min [facility] Body temperature 2022-09-19 16:02:00 36.94 Vika [facility] Respiratory rate 2022-09-19 16:02:00 18 /min [facility] Body height 2022-09-19 16:02:00 154.9 cm [facility] Body weight 2022-09-19 16:02:00 104.327 kg [facility] BMI 2022-09-19 16:02:00 43.46 kg/m2 [facility] Oxygen saturation in Arterial blood by Pulse oximetry 2022-09-19 16:02:00 98 /min [facility] Body weight 2022-09-10 21:39:00 113.399 kg [facility] BMI 2022-09-10 21:39:00 47.24 kg/m2 [facility] Systolic blood pressure 2022-06-12 18:06:00 155 mm[Hg] [facility] Diastolic blood pressure 2022-06-12 18:06:00 84 mm[Hg] [facility] Heart rate 2022-06-12 18:06:00 90 /min [facility] Body temperature 2022-06-12 18:06:00 36 Vika [facility] Respiratory rate 2022-06-12 18:06:00 18 /min [facility] Oxygen saturation in Arterial blood by Pulse oximetry 2022-06-12 18:06:00 94 /min [facility] Body weight 2022-06-11 09:20:00 113.49 kg [facility] BMI 2022-06-11 09:20:00 47.27 kg/m2 [facility] Body height 2022-06-11 01:52:00 154.9 cm [facility] Systolic blood pressure 2022-04-19 13:32:00 127 mm[Hg] [place] [facility] Diastolic blood pressure 2022-04-19 13:32:00 67 mm[Hg] [place] [facility] Heart rate 2022-04-19 13:32:00 88 /min [facility] Body height 2022-04-19 13:32:00 154.9 cm [facility] Body weight 2022-04-19 13:32:00 117.028 kg [facility] BMI 2022-04-19 13:32:00 48.75 kg/m2 [facility] Body height 2020-12-18 16:17:00 [...] POCT GLUCOSE (AUTOMATED) 2023-08-30 18:30:00 Jarred Barker [facility] POCT GLUCOSE (AUTOMATED) 2023-08-30 13:51:00 [facility] TROPONIN I 2023-08-30 09:22:00 Malgorzata Santos [facility] GLYCOSYLATED HEMOGLOBIN (A1C) 2023-08-30 04:51:00 Annamaria Barker [facility] TROPONIN I 2023-08-30 04:50:00 Malgorzata Santos [facility] POCT GLUCOSE (AUTOMATED) 2023-08-30 02:21:00 Jarred Barker [facility] URINE DRUG (IMMUNOASSAY) - COMPREHENSIVE DRUG SCREEN W/O REFLEX 2023-08-30 00:00:00 Marylou Driver [facility] CT ABDOMEN PELVIS W CONTRAST 2023-08-29 23:18:33 Marylou Driver [facility] CT CHEST PULMONARY ANGIOGRAM 2023-08-29 19:11:03 Marylou Driver [facility] URINALYSIS 2023-08-29 17:44:00 Marylou Driver [facility] XR CHEST 1 VW 2023-08-29 17:05:57 Marylou Driver [facility] LIPASE 2023-08-29 16:43:00 Marylou Driver [facility] MAGNESIUM 2023-08-29 16:43:00 Marylou Driver [facility] TROPONIN I 2023-08-29 16:43:00 Marylou Driver [facility] COMP. METABOLIC PANEL (76364) 2023-08-29 16:43:00 Marylou Driver [facility] CBC WITH DIFF 2023-08-29 16:43:00 Marylou Driver [facility] D-DIMER 2023-08-29 16:43:00 Marylou Driver [facility] HB ECG ROUTINE & RHYTHM STRIP 2023-08-29 16:32:22 Marylou Driver [facility] EXTERNAL PROVIDER - ADC CARDIOLOGY 2022-12-31 05:01:00 Doctor Unassigned, [place] [facility] EXTERNAL PROVIDER - ADC REFERRAL 2022-12-20 05:01:00 Doctor Unassigned, [place] [facility] FL TIME OR (NON-REPORTABLE) 2022-09-23 14:53:25 Kayla Lutz [facility] FL TIME OR (NON-REPORTABLE) 2022-09-23 14:53:25 Kayla Lutz [facility] MAJOR JOINT INJECTION 2022-09-23 13:32:00 Inderjit Lutz [facility] POCT GLUCOSE (AUTOMATED) 2022-09-23 12:50:00 Kayla Lutz [facility] POCT GLUCOSE (AUTOMATED) 2022-09-23 12:50:00 Kayla Lutz [facility] HB ABO GROUPING 2022-09-23 12:45:00 Kayla Lutz [facility] HB ABO GROUPING 2022-09-23 12:45:00 Kayla Lutz [facility] DAY SURGERY - ADC 2022-09-23 06:01:00 Doctor Rena ssigned, [place] [facility] TROPONIN I 2022-09-19 15:38:00 RushingPedro Luis [facility] XR CHEST 2 VW 2022-09-19 14:38:32 Kayla Lutz Un [facility] ASSIGNMENT OF BENEFITS 2022-09-19 14:20:21 Docto r Unassigned, [place] [facility] EXTERNAL PROVIDER RECORDS 2022-09-17 06:01:00 Doctor Unassigned, [place] [facility] ASSIGNMENT OF BENEFITS 2022-09-10 21:32:35 Docto r Unassigned, [place] [facility] POCT GLUCOSE (AUTOMATED) 2022-06-12 18:08:00 Jarred Barker [facility] BASIC METABOLIC PANEL (NA, K, CL, CO2, GLUCOSE, BUN, CREATININE, CA) 2022-06-12 09:27:00 Jimmy Rowland [facility] CBC WITH DIFF 2022-06-12 09:27:00 Jimmy Rowland Un [facility] POCT GLUCOSE (AUTOMATED) 2022-06-12 07:56:00 Jarred Barker [facility] POCT GLUCOSE (AUTOMATED) 2022-06-12 01:45:00 Jarred Barker [facility] POCT GLUCOSE (AUTOMATED) 2022-06-11 22:56:00 Jarred Barker [facility] POCT GLUCOSE (AUTOMATED) 2022-06-11 18:11:00 [facility] POCT GLUCOSE (AUTOMATED) 2022-06-11 14:05:00 Jarred Barker [facility] PHOSPHORUS 2022-06-11 10:40:00 Robbi Muro [facility] CREATINE KINASE 2022-06-11 10:40:00 Robbi Muro [facility] AMYLASE 2022-06-11 10:40:00 Robbi Muro [facility] LIPASE 2022-06-11 10:40:00 [facility] MAGNESIUM 2022-06-11 10:40:00 Robbi Muro [facility] COMP. METABOLIC PANEL ([id number]) 2022-06-11 10:40:00 Robbi Muro [facility] CBC WITH DIFF 2022-06-11 10:40:00 Robbi Muro [facility] GLYCOSYLATED HEMOGLOBIN (A1C) 2022-06-11 10:40:00 Jimmy Rowland [facility] N-TERMINAL PRO-BNP 2022-06-11 10:40:00 Robbi Muro [facility] POCT GLUCOSE (AUTOMATED) 2022-06-11 07:56:00 Jarred Barker [facility] URINE CULTURE 2022-06-11 05:18:00 Robbi Muro [facility] PROTHROMBIN TIME / INR 2022-06-11 03:24:00 Thang Muro [facility] LACTIC ACID WHOLE BLOOD 2022-06-11 03:18:00 Jory Muro [facility] C-REACTIVE PROTEIN 2022-06-11 03:17:00 Robbi Muro [facility] SEDIMENTATION RATE 2022-06-11 03:17:00 Robbi Muro [facility] PROCALCITONIN 2022-06-11 03:17:00 Robbi Muro [facility] US OVARY TORSION 2022-06-10 22:01:56 [facility] 2022-[facility]-10 19:14:00 Brodie Clemons [facility] CT ABDOMEN PELVIS WO CONTRAST 2022-06-10 18:36:36 Broide Clemons [facility] PHOSPHORUS 2022-06-10 17:54:00 Robbi Muro [facility] URIC ACID 2022-06-10 17:54:00 Robbi Muro [facility] LIPASE 2022-06-10 17:54:00 Brodie Clemons [facility] MAGNESIUM 2022-06-10 17:54:00 Robbi Muro [facility] FERRITIN SERUM 2022-06-10 17:54:00 Robbi Muro [facility] HEPATIC FUNCTION PANEL ([id number]) (ALB,T.PRO,BILI T,BU/BC,ALT,AST,ALK PHOS) 2022-06-10 17:54:00 Brodie Clemons [facility] BASIC METABOLIC PANEL (NA, K, CL, CO2, GLUCOSE, BUN, CREATININE, CA) 2022-06-10 17:54:00 Brodie Clemons [facility] IRON PANEL 2022-06-10 17:54:00 Robib Muro [facility] CBC WITH DIFF 2022-06-10 17:54:00 Brodie Clemons [facility] N-TERMINAL PRO-BNP 2022-06-10 17:54:00 Robbi Muro [facility] CONSENT/REFUSAL FOR DIAGNOSIS AND TREATMENT 2022-06-10 17:38:54 Doctor Unassigned, [place] [facility] Encounters Start Date/Time End Date/Time Encounter Type Admission Type Attending Clinicians Care Facility Care Department Encounter ID Source 2024-07-14 09:56:00 Outpatient Estefany Evans [facility] [id number] [facility] 2023-09-16 15:59:01 Outpatient Estefany Evans [facility] [id number] [facility] 2023-09-15 13:03:00 Outpatient Estefany Evans [facility] [id number] [facility] 2023-01-10 09:10:01 Outpatient Estefany Evans [facility] [id number] [facility] 2023-01-07 11:56:01 [facility] [id number] [facility] 2022-12-24 16:13:00 Outpatient Estefany Evans [facility] [id number] [facility] 2022-01-04 12:25:16 Outpatient KAYLA MAGDALENO [facility] [id number] [facility] 2021-08-29 12:51:44 Outpatient [facility] [id number] [facility] 2021-08-29 11:59:56 Outpatient [facility] [id number] [facility] 2021-08-29 11:28:05 Outpatient [facility] [id number] [facility] 2021-08-29 11:27:12 Outpatient [facility] [id number] [facility] 2021-06-01 02:46:06 Emergency [facility] [id number] [facility] 2020-12-18 09:37:27 Outpatient [facility] [id number] [facility] 2020-12-18 09:37:27 Outpatient [facility] [id number] [facility] 2020-12-18 09:37:27 Outpatient [facility] [id number] [facility] 2020-12-15 12:03:34 Outpatient [facility] [id number] [facility] 2020-12-15 12:03:34 Outpatient [facility] [id number] [facility] 2020-12-15 12:00:05 Outpatient [facility] [id number] [facility] 2020-12-09 04:06:39 Outpatient LACEY IVERSON [facility] [id number] [facility] 2023-12-17 00:00:00 2023-12-17 00:00:00 (PO) Post Op STLMLC ST[facility] [id number] [facility] 2023-12-11 00:00:00 2023-12-11 00:00:00 (TEL) STLMLC [facility] [id number] [facility] 2023-12-01 00:00:00 2023-12-01 00:00:00 (TEL) STLMLC ST[facility] [id number] [facility] 2023-11-28 00:00:00 2023-11-28 00:00:00 (F/U) Follow Up Visit [facility] ST[facility] [id number] [facility] 2023-11-28 00:00:00 2023-11-28 00:00:00 (TEL) STLMLC STLC [id number] [facility] 2023-10-22 00:00:00 2023-10-22 00:00:00 Outpatient BREE GRIFFITH [facility] [id number] [facility] 2023-09-18 00:00:00 2023-09-18 00:00:00 (ESTPT) Dayne love Patient [facility] [id number] [facility] 2023-09-03 00:00:00 2023-09-03 00:00:00 Patient Secure Msg Doctor Unassigned, [place] [facility] [id number] [id number] [facility] 2023-09-01 00:00:00 2023-09-01 00:00:00 Transition of Care Veronika Espinoza BETHANY SANTOS [id number] [id number] [facility] 2023-08-29 10:29:00 2023-08-30 14:13:00 Outpatient X ANNAMARIA BARKER [facility] [id number] [facility] 2023-08-29 10:29:00 2023-08-30 14:13:00 Emergency Marylou Driver [facility] [id number] 350.1.13.10 4.2.7.2.686 [id number] [facility] 2023-08-30 00:00:00 2023-08-30 00:00:[address] [facility] [id number] [id number] [facility] 2023-05-23 00:00:00 2023-05-23 00:00:00 (PO) Post Op STLMLC ST[facility]C [id number] [facility] 2023-05-07 00:00:00 2023-05-07 00:00:00 NON-BILLAB LE VISIT STLMLC STLMLC [id number] [facility] 2023-04-29 00:00:00 2023-04-29 00:00:00 (TEL) STLMLC STLMLC [id number] [facility] 2023-04-08 00:00:00 2023-04-08 00:00:00 (TEL) STLMLC STL[facility]C [id number] [facility] 2023-04-03 00:00:00 2023-04-03 00:00:00 (TEL) STLMLC STLMLC [id number] [facility] 2023-03-19 00:00:00 2023-03-19 00:00:00 (TEL) STLMLC STL[facility]C [id number] [facility] 2023-03-17 00:00:00 2023-03-17 00:00:00 OFFICE VISIT ESTAB PT LEVEL 3 STLMLC STL[facility]C [id number] [facility] 2023-01-13 00:00:00 2023-01-13 00:00:00 OFFICE VISIT ESTAB PT LEVEL 3 [facility]C STL[facility]C [id number] [facility] 2023-01-07 00:00:00 2023-01-07 00:00:00 OFFICE VISIT ESTAB PT LEVEL 4 STLMLC STL[facility]C [id number] [facility] 2022-12-31 00:00:00 2022-12-31 00:00:[address] [facility] [id number] [id number] [id number] [id number] [facility] 2022-12-31 00:00:00 2022-12-31 00:00:00 Orders Only Doctor Unassigned, [place] [facility] [id number] 350.1.13.10 4.2.7.2.686 [id number] [facility] 2022-12-27 09:20:00 2022-12-27 09:20:00 [facility] 1.0.114 350.1.13.10 4.2.7.2.686 [id number] [facility] 2022-12-27 09:20:00 2022-12-27 09:12:16 Outpatient R BILL[facility] [id number] [facility] 2022-12-26 09:40:00 2022-12-26 09:40:00 Outpatient R BILLY [facility] [id number] [facility] 2022-12-20 00:00:00 2022-12-20 00:00:00 Orders Only Doctor Unassigned, [place] [facility] [id number] 350.1.13.10 4.2.7.2.686 [id number] [facility] 2022-09-23 06:38:00 2022-09-23 09:05:00 Outpatient R KAYLA LUTZ [facility] SOR [id number] [facility] 2022-09-23 06:38:00 2022-09-23 09:05:00 Hospital Encounter Kayla Lutz [facility] 1.0.114 350.1.13.10 4.2.7.2.686 [id number] [facility] 2022-09-23 07:25:00 2022-09-23 07:50:00 Surgery Kayla Lutz [facility] 1.20.114 350.1.13.10 4.2.7.2.686 [id number] [facility] 2022-09-23 00:00:00 2022-09-23 00:00:00 Orders Only Doctor Unassigned, [place] [facility] 1.2840.114 350.1.13.10 4.2.7.2.686 [id number] [facility] 2022-09-20 00:00:00 2022-09-20 00:00:00 [facility]phone [facility] 1.20.114 350.1.13.10 4.2.7.2.686 [id number] 198 [id number] [facility] 2022-09-19 10:05:00 2022-09-19 11:39:00 Emergency X PEDRO LUIS RUSHINGPEDRO LUIS [facility] ERT [id number] [facility] 2022-09-19 10:05:00 2022-09-19 11:39:00 Emergency Pedro Luis Rushing [facility] 1.20.114 350.1.13.10 4.2.7.2.686 [id number] [facility] 2022-09-19 10:15:00 2022-09-19 10:30:00 Information Systems Security Officer Visit Pob, Adc Lab Main Kayla Lutz [facility] PROFESSIO NAL BUILDING 1..114 350.1.13.10 4.2.7.2.686 [id number] [facility] 2022-09-19 08:22:49 2022-09-19 10:04:00 Hospital Encounter Kayla Lutz [facility] 1.20.114 350.1.13.10 4.2.7.2.686 [id number] [facility] 2022-09-19 08:21:46 2022-09-19 08:21:46 Outpatient R KAYLA LUTZ [facility] [id number] [facility] 2022-09-19 00:00:00 2022-09-19 00:00:00 Orders Only Doctor Unassigned, [place] [facility] 1.2840.114 350.1.13.10 4.2.7.2.686 [id number] [id number] [facility] 2022-09-17 00:00:00 2022-09-17 00:00:00 Orders Only Doctor Unassigned, [place] [facility] 1.20.114 350.1.13.10 4.2.7.2.686 [id number] [id number] [facility] 2022-09-16 00:00:00 2022-09-16 00:00:00 Prep For Surgery Kayla Lutz [facility] 1.84.114 350.1.13.10 4.2.7.2.686 [id number] [facility] 2022-09-10 16:30:00 2022-09-10 23:59:00 Outpatient R BERNICE COLUNGA [facility] [id number] [facility] 2022-09-10 16:00:00 2022-09-10 16:15:00 Office Visit Bernice Colunga [facility] OFF[facility] BUILD[facility] 1.284.114 350.1.13.10 4.2.7.2.686 [id number] [facility] 2022-09-10 00:00:00 2022-09-10 00:00:00 Orders Only Doctor Unassigned, [place] [facility] 1.20.114 350.1.13.10 4.2.7.2.686 [id number] [id number] [facility] 2022-09-10 00:00:00 2022-09-10 00:00:00 [facility] 1.2.840.114 350.1.13.10 4.2.7.2.686 [id number] [facility] 2022-09-09 00:00:00 2022-09-09 00:00:00 Telephone Keanu [facility] GREGOR?[facility]Y PAREDES [facility] 1..840.114 350.1.13.10 4.2.7.2.686 [id number] 198 [id number] [facility] 2022-06-13 00:00:00 2022-06-13 00:00:00 Transition of Care Chel[facility] 1..840.114 350.1.13.10 4.2.7.2.686 [id number] [facility] 2022-06-10 11:37:00 2022-06-12 16:00:00 Outpatient ANNAMARIA [facility]AY [facility] [id number] [facility] 2022-06-10 11:37:00 2022-06-12 16:00:00 Emergency Brodie Clemons David [facility] 1..840.114 350.1.13.10 4.2.7.2.686 [id number] [facility] 2022-04-19 08:55:00 2022-04-19 23:59:00 Outpatient BERNICE REYES [facility] [id number] [facility] 2022-04-19 08:55:00 2022-04-19 23:59:00 Outpatient BERNICE REYES [facility] [id number] [facility] 2022-04-19 08:45:00 2022-04-19 09:00:00 Office Visit Bernice Colunga [facility] 1.2.840.114 350.1.13.10 4.2.7.2.686 [id number] [facility] 2022-02-25 15:15:00 2022-02-25 15:15:00 [facility] [id number] [facility] 2022-02-21 10:45:00 2022-02-21 10:45:00 Outpatient R BERNICE COLUNGA [facility] [id number] [facility] 2022-02-18 10:30:00 2022-02-18 10:30:00 Outpatient R FILIPE WIGGINS [facility] [id number] [facility] 2022-01-18 10:00:00 2022-01-18 10:00:00 Outpatient R CLAYTON GARRIDO [facility] [id number] [facility] 2022-01-17 00:00:00 2022-01-17 00:00:00 Refill Kayla Lutz [facility]?NATY FERNANDEZ [facility] OFF[facility]ILD[facility] 1..840.114 350.1.13.10 4.2.7.2.686 [id number] [facility] 2022-01-14 06:59:00 2022-01-14 09:15:00 Outpatient R KAYLA LUTZ [facility] SOR [id number] [facility] 2022-01-14 06:59:00 2022-01-14 09:15:00 Hospital Encounter Kayla Lutz [facility] 1..840.114 350.1.13.10 4.2.7.2.686 [id number] [facility] 2022-01-14 08:20:00 2022-01-14 09:12:00 Surgery Kayla Lutz [facility] 1..840.114 350.1.13.10 4.2.7.2.686 [id number] [id number] [facility] 2022-01-14 08:25:00 2022-01-14 08:39:00 Anesthesia Event Bharath Padgett, Oliver Fajardo [facility] 1.2.840.114 350.1.13.10 4.2.7.2.686 [id number] [facility] 2022-01-14 00:00:00 2022-01-14 00:00:00 Orders Only Doctor Unassigned, [place] [facility] 1.2.840.114 350.1.13.10 4.2.7.2.686 [id number] [id number] [facility] 2022-01-11 07:39:32 2022-01-11 23:59:00 Hospital Encounter Kayla Lutz [facility] 1.2840.114 350.1.13.10 4.2.7.2.686 [id number] [facility] 2022-01-11 07:39:18 2022-01-11 23:59:00 Outpatient R KAYLA LUTZ [facility] [id number] [facility] 2022-01-11 08:30:00 2022-01-11 08:45:00 Information Systems Security Officer Visit Pob, Adc Lab Main Kayla Lutz [facility] PROFESS[facility] 1.0.114 350.1.13.10 4.2.7.2.686 [id number] [facility] 2022-01-11 08:15:00 2022-01-11 08:30:00 Laboratory Only Only, Adc Test Kayla Lutz [facility] 1.840.114 350.1.13.10 4.2.7.2.686 [id number] [facility] 2022-01-11 08:15:00 2022-01-11 08:15:00 Outpatient R KAYLA LUTZ [facility] [id number] [facility] 2022-01-11 00:00:00 2022-01-11 00:00:00 Telephone Kayla Lutz [facility]?NATY ROSLYN [facility] OFF[facility]ILD[facility] 1.2.840.114 350.1.13.10 4.2.7.2.686 [id number] [facility] 2022-01-04 11:15:00 2022-01-04 11:30:00 Office Visit Bernice Colunga [facility] 1..840.114 350.1.13.10 4.2.7.2.686 [id number] [facility] 2022-01-04 11:15:00 2022-01-04 11:15:00 Outpatient R KEANU BERNICE [facility] [id number] [facility] 2022-01-04 11:15:00 2022-01-04 11:15:00 Outpatient R COLUNGA BERNICE [facility] [id number] [facility] 2022-01-04 00:00:00 2022-01-04 00:00:00 Prep For Surgery [facility] OFF[facility] BU[facility] 1..840.114 350.1.13.10 4.2.7.2.686 [id number] 198 [id number] [facility] 2021-12-20 10:00:00 2021-12-20 10:00:00 Outpatient R KAYLA LUTZ [facility] [id number] [facility] 2021-12-11 00:00:00 2021-12-11 00:00:00 Telephone Kayla Lutz [facility]?NATY [facility] OFF[facility] 1..840.114 350.1.13.10 4.2.7.2.686 [id number] [facility] 2021-12-07 10:23:58 2021-12-07 23:59:00 Outpatient R BERNICE COLUNGA [facility] [id number] [facility] 2021-12-07 10:23:58 2021-12-07 23:59:00 Hospital Encounter Bernice Colunga [facility] 1.840.114 350.1.13.10 4.2.7.2.686 [id number] [facility] 2021-11-30 10:45:00 2021-11-30 11:13:44 Outpatient R BERNICE COLUNGA [facility] [id number] [facility] 2021-11-30 10:45:00 2021-11-30 11:13:44 [facility] 1.840.114 350.1.13.10 4.2.7.2.686 [id number] [facility] 2021-11-30 10:45:00 2021-11-30 11:13:44 Outpatient R BERNICE COLUNGA [facility] [id number] [facility] 2021-11-28 00:00:00 2021-11-28 00:00:00 [facility]AYLANJory [facility] OFF[facility]ILD[facility] 1.840.114 350.1.13.10 4.2.7.2.686 [id number] [facility] 2021-11-28 00:00:00 2021-11-28 00:00:00 Orders Only Doctor Unassigned, [place] [facility] 1.840.114 350.1.13.10 4.2.7.2.686 [id number] [id number] [facility] 2021-11-27 00:00:00 2021-11-27 00:00:00 Telephone Kayla Lutz [facility] BUILD[facility] 1.2840.114 350.1.13.10 4.2.7.2.686 [id number] [facility] 2021-11-22 00:00:00 2021-11-22 00:00:00 Orders Only Doctor Unassigned, [place] [facility] 1.2840.114 350.1.13.10 4.2.7.2.686 [id number] [id number] [facility] 2021-11-21 00:00:00 2021-11-21 00:00:00 Telephone Piotr Lutzig Ponce [facility]ILD[facility] 1.2840.114 350.1.13.10 4.2.7.2.686 [id number] [facility] 2021-11-21 00:00:00 2021-11-21 00:00:00 Telephone [facility]ig [facility] 1.2840.114 350.1.13.10 4.2.7.2.686 [id number] 198 [id number] [facility] 2021-11-19 00:00:00 2021-11-19 00:00:00 Telephone [facility] 1.2840.114 350.1.13.10 4.2.7.2.686 [id number] [facility] 2021-11-19 00:00:00 2021-11-19 00:00:00 Telephone Piotr [facility]utzig [facility] 1.2840.114 350.1.13.10 4.2.7.2.686 [id number] 198 [id number] [facility] 2021-11-12 00:00:00 2021-11-12 00:00:00 Telephone Kayla Lutz [facility] 1..840.114 350.1.13.10 4.2.7.2.686 [id number] 198 [id number] [facility] 2021-10-29 00:00:00 2021-10-29 00:00:00 Telephone Kayla Lutz [facility] 1..840.114 350.1.13.10 4.2.7.2.686 [id number] 198 [id number] [facility] 2021-10-26 00:00:00 2021-10-26 00:00:00 Telephone Kayla Lutz [facility] 1..840.114 350.1.13.10 4.2.7.2.686 [id number] 198 [id number] [facility] 2021-10-24 09:30:00 2021-10-24 10:20:40 Outpatient R KEANU BERNICE [facility] [id number] [facility] 2021-10-24 09:30:00 2021-10-24 10:20:40 Office Visit Keanu [facility] 1.2.840.114 350.1.13.10 4.2.7.2.686 [id number] [facility] 2021-10-24 09:30:00 2021-10-24 10:20:40 Outpatient R BERNICE COLUNGA [facility] [id number] [facility] 2021-10-24 09:30:00 2021-10-24 10:20:40 Office Visit Keanu [facility] 1.2.840.114 350.1.13.10 4.2.7.2.686 [id number] 198 [id number] [facility] 2021-10-19 00:00:00 2021-10-19 00:00:00 Telephone Keanu [facility] OFF[facility] 1.2.840.114 350.1.13.10 4.2.7.2.686 [id number] 198 [id number] [facility] 2021-10-18 00:00:00 2021-10-18 00:00:00 Telephone Keanu [facility] OFFICE [facility] 1..840.114 350.1.13.10 4.2.7.2.686 [id number] 198 [id number] [facility] 2021-10-12 14:00:00 2021-10-12 15:00:16 Outpatient RENÉE VILLARREAL HOWARD [facility] [id number] [facility] 2021-10-02 00:00:00 2021-10-02 00:00:00 Telephone Keanu [facility]Y [facility] OFFICE [facility] 1..840.114 350.1.13.10 4.2.7.2.686 [id number] 198 [id number] [facility] 2021-10-02 00:00:00 2021-10-02 00:00:00 Orders Only Doctor Unassigned, [place] [facility] 1.2.840.114 350.1.13.10 4.2.7.2.686 [id number] [id number] [facility] 2021-09-27 00:00:00 2021-09-27 00:00:00 Orders Only Doctor Unassigned, [place] [facility] 1.2.840.114 350.1.13.10 4.2.7.2.686 [id number] [facility] 2021-09-24 15:50:00 2021-09-24 23:59:00 Outpatient BERNICE REYES [facility] [id number] [facility] 2021-07-02 00:00:00 2021-07-02 00:00:00 (TEL) STLMLC STLMLC [id number] [facility] 2021-06-27 14:15:00 2021-06-27 14:15:00 Outpatient R BERNICE COLUNGA [facility] [id number] [facility] 2021-06-27 14:15:00 2021-06-27 14:15:00 Outpatient R KEANU [facility] [id number] [facility] 2021-06-27 13:39:57 2021-06-27 13:54:57 Office Visit Keanu [facility]?KAYLANJory PELONROSLYN [facility] OFF[facility]ILDING 1.840.114 350.1.13.10 4.2.7.2.686 [id number] [facility] 2021-06-26 15:45:00 2021-06-26 15:45:00 Outpatient R KEANU [facility] [id number] [facility] 2021-06-26 15:45:00 2021-06-26 15:45:00 [facility] [id number] [facility] 2021-06-25 00:00:00 2021-06-25 00:00:00 [facility] 1..840.114 350.1.13.10 4.2.7.2.686 [id number] 198 [id number] [facility] 2021-05-23 00:00:00 2021-05-23 00:00:00 Telephone [facility] Gregor?Kaylanjory pelonroslyn [facility] 1..840.114 350.1.13.10 4.2.7.2.686 [id number] [facility] 2021-05-22 13:00:00 2021-05-22 23:59:00 Hospital Encounter Keanu [facility]?Kaylanjory pelonroslyn [facility] 1..840.114 350.1.13.10 4.2.7.2.686 [id number] [facility] 2021-05-22 16:15:00 2021-05-22 14:56:21 Outpatient R BERNICE COLUNGA [facility] [id number] [facility] 2021-05-22 16:15:00 2021-05-22 14:56:21 Outpatient R KEANU [facility] [id number] [facility] 2021-05-22 12:47:56 2021-05-22 14:56:21 Office Visit KeanuBernice [facility]?Naty paredes Medical Office Building 1..840.114 350.1.13.10 4.2.7.2.686 [id number] [facility] 2021-05-22 00:00:00 2021-05-22 00:00:00 Orders Only Doctor Unassigned, [place] [facility] 1..840.114 350.1.13.10 4.2.7.2.686 [id number] [id number] [facility] 2021-04-23 10:10:00 2021-04-23 10:10:00 [facility] [id number] [facility] 2021-04-23 10:00:06 2021-04-23 10:00:17 Imm[facility]j [facility]..840.114 350.1.13.10 4.2.7.2.686 [id number] [facility] 2021-04-02 14:40:00 2021-04-02 14:40:00 [facility] [id number] [facility] 2021-04-02 13:41:25 2021-04-02 13:41:44 Imm/Inj Visit NurseHailey Immuniztoo Resendiz [facility] 1.2.840.114 350.1.13.10 4.2.7.2.686 [id number] [facility] 2021-01-26 00:00:00 2021-01-26 00:00:00 RefLacey Mccormack [facility] 1.2.840.114 350.1.13.58 9.2.7.2.686 [id number] [facility] 2021-01-26 00:00:00 2021-01-26 00:00:00 Refill Lacey Iverson [facility] 1.2.840.114 350.1.13.58 9.2.7.2.686 [id number] 2020-12-18 09:22:21 2020-12-18 12:11:17 Office Visit Jonas Barker [facility] 1 1.2.840.114 350.1.13.58 9.2.7.2.686 [id number] [facility] 2020-12-18 09:22:21 2020-12-18 12:11:17 Office Visit Jonas Barker [facility] 1 1.2.840.114 350.1.13.58 9.2.7.2.686 [id number] 2020-09-06 00:00:00 2020-09-06 00:00:00 (TEL) STLMLC STLMLC [id number] [facility] 2020-07-20 00:00:00 2020-07-20 00:00:00 (TEL) STLMLC STLMLC [id number] [facility] 2020-07-12 00:00:00 2020-07-12 00:00:00 (TEL) STLMLC STLMLC [id number] [facility] 2020-06-21 00:00:00 2020-06-21 00:00:00 Outpatient STLMLC STLMLC [id number] [facility] 2020-06-12 00:00:00 2020-06-12 00:00:00 Outpatient [facility] [id number] [facility] 2020-06-06 00:00:00 2020-06-06 00:00:00 Outpatient [facility] [id number] [facility] 2020-01-26 20:05:2020-01-26 21:04:00 Emergency [facility] 1.2.840.114 350.1.13.10 4.2.7.2.686 [id number] 2020-01-26 20:05:19 2020-01-26 21:04:00 [facility] 1.2.840.114 350.1.13.10 4.2.7.2.686 [id number] [facility] 2020-01-26 00:00:00 2020-01-26 00:00:00 Orders Only Doctor Unassigned, [place] [facility] 1.2840.114 350.1.13.10 4.2.7.2.686 [id number] [id number] 2020-01-26 00:00:00 2020-01-26 00:00:00 Orders Only Doctor Unassigned, [place] [facility] 1.2.840.114 350.1.13.10 4.2.7.2.686 [id number] [id number] [facility] 2020-01-20 08:00:00 2020-01-20 08:00:00 Outpatient [facility] [id number] [facility] 2020-01-20 00:00:00 2020-01-20 00:00:00 Orders Only Doctor Unassigned, [place] [facility] 1.2840.114 350.1.13.10 4.2.7.2.686 [id number] [id number] [facility] 2020-01-20 00:00:00 2020-01-20 00:00:00 Orders Only Doctor Unassigned, [place] [facility] 1.2.840.114 350.1.13.10 4.2.7.2.686 [id number] 009 [id number] Results Test Description Test Time Test Comments Results Result Co mments Source [facility] GLUCOSE (AUTOMATED)2023-08-30 13:51:48* Test Item Value Reference Range Interpretation Comme [facility] POCT GLU (test code = 0363446899) 105 mg/dL 70-110 Lab Interpretation (test cod e = 07585-2) Normal [facility] Hem[facility] (A1C)2023-08-30 05:45:04* Test Item Value Reference Range Interpretation Comme [facility] HGB A1C (test code = 4548-4) 6.0 % 4.0-5.7 H SRIRAM (test code = SRIRAM) Reference RangesNormal: <5.7%Prediabetes: 5.7 - 6.4%Diabetes: > 6.5% Lab Interpretation (test code = 60098-2) Abnormal [facility] GLUCOSE (AUTOMATED)2023-08-30 02:23:04* Test Item Value Reference Range Interpretation Comme [facility] POCT GLU (test code = 6206646710) 101 mg/dL 70-110 Lab Interpretation (test cod e = 44440-3) Normal [facility] ABDOMEN PELVIS W [id number] 00:26:53PROCEDURE:CT ABDOMEN PELVIS W CONTRAST ORDERING PHYSICIAN: MARYLOU DRIVER HISTORY: ?Abdominal painTECHNIQUE: Helical CT of the abdomen and pelvis was performed usingnon-ionic intravenous contrast. CT scan was performed according to ALARA (as low as reasonably achievable)principle. TECHNICAL QUALIT Y: Adequate COMPARISON: ?CT abdomen/pelvis FINDINGS CT ABDOMEN/PELVIS: Lower thorax: ?The lung [...] numberUnB[facility]neyCT CHEST PULMONARY ANGIOGRAM 2023-08-29 19:22:01CT SCAN OF [...] BONES/ CHEST WALL: No aggressive or acute abnormalities.[facility] CampusTRANUPAM [id number] 17:47:43* Test Item Value Reference Range Interpretation Comme nts TROPONIN I (test code = 5095317482) 0.001 ng/mL <=0.034 SRIRAM (test code = [...] of biotin. Lab Interpretation (test code = 12910-1) Normal [facility] CampusMagnesium2024-01-26 17:36:59* Test Item Value Reference Range Interpretation Comme nts MAGNESIUM (test code = 1029502512) 1.7 mg/dL 1.7-2.4 Lab Interpretation (test cod e = 16327-4) Normal [facility] CampusCOMP. METABOLIC PANEL (44072)2023-08-29 17:36:38* Test Item Value Reference Range Interpretation Comme nts NA (test code = 5470821139) 139 mmol/L 135-145 K (test code = 2881575080) 4.1 mmol/L 3.5-5.0 CL (test code = 4790199526) 107 mmol/L 98-108 CO2 TOTAL (test code = 1202012456) 25 mmol/L 23-31 AGAP (test code = 7629323220) 7 2-16 BUN (test code = 6271169594) 13 mg/dL 7-23 GLUCOSE (test code = 6156218670) 114 mg/dL 70-110 H CREATININE (test code = 2406026822) 0.75 mg/dL 0.50-1.04 TOTAL BILI (test code = 0273334579) 0.6 mg/dL 0.1-1.1 CALCIUM (test code = 4444200772) 9.6 mg/dL 8.6-10.6 T PROTEIN (test code = 3873902412) 7.7 g/dL 6.3-8.2 ALBUMIN (test code = 0069009510) 4.1 g/dL 3.5-5.0 ALK PHOS (test code = 7398237738) 121 U/L 34-122 ALTv (test code = 1742-6) 16 U/L 5-35 AST(SGOT) (test code = 7796455486) 24 U/L 13-40 eGFR (test code = 38098-0) 94.7 mL/min/1.73m2 CKD-EPI eGFR (2020). Assuming creatinine has been stable day-to-day for at least three months, the eGFR indicates Category G1 (>= 90 mL/min/1.73 m2) Lab Interpretation (test code = 60324-3) Abnormal [facility] CampusLIPASE2024-01-26 17:36:22* Test Item Value Reference Range Interpretation Comme nts LIPASE (test code = 6580573359) 82 U/L 0-220 Lab Interpretation (test cod e = 83469-4) Normal [facility] CampusD-[id number] 17:34:40* Test Item Value Reference Range Interpretation Comments D-DIMER (test code = 7616349511) 0.96 See_Comment H [Automated message] The system [...] a diagnosis. Lab Interpretation (test code = 44375-2) Abnormal [facility] CampusXR CHEST 1 [id number] 17:17:59EXAM: XR CHEST 1 08/29/2023 10:59 AM HISTORY: 53 years-old Female with chest pain . TECHNIQUE: Portable AP view of the chest. COMPARISON: None. FINDINGS: Lines and tubes: None. Cardiomediastinal: The cardiomediastinal silhouette is normal in sizeaccounting for depth of inspiration. Lungs and pleura: Low lung volumes. Noacute infiltrate or effusion. Included osseous structures show no acute abnor mality.[facility] WITH [id number] 17:17:19* Test Item Value Reference Range Interpretation [...] g/dL 31.6-35.1 L RDW-SD (test code = 44607-6) 52.5 fL 39.0-49.9 H RDW-CV (test code = 788-0) 17.5 % 12.0-15.5 H PLT (test code = 777-3) 344 See_Comment [Automated messa ge] The system which generated this result transmitted reference range: 166 - 358 10*3/?L. The reference range was not used to interpret this result as normal/abnormal. MPV (test code = 43645-0) 10.0 fL 9.5-12.9 NRBC/100 WBC (test code = 0867505191) 0.0 See_Comment [Automated [employer] ssage] The system which generated this result transmitted reference range: 0.0 - 10.0 /100 WBCs. The reference range was not used to interpret this result as normal/abnormal. NRBC x10^3 (test code = 2034937377) See_Comment [Automated messa ge] The system which generated this result transmitted reference range: 10*3/?L. The reference range was not used to interpret this result as normal/abnormal. GRAN MAT (NEUT) % (test code = 770-8) 68.0 % IMM GRAN % (test code = 1121781023) 0.20 % LYMPH % (test code = 736-9) 23.8 % MONO % (test code = 5905-5) 6.1 % EOS % (test code = 713-8) 1.6 % BASO % (test code = 706-2) 0.3 % GRAN MAT x10^3(ANC) (test code = 6277701506) 4.14 10*3/uL 1.88-7.09 IMM GRAN x10^3 (test code = 0270737904) 0.00-0.06 LYMPH x10^3 (test code = 731-0) 1.45 10*3/uL 1.32-3.29 MONO x10^3 (test code = 742-7) 0.37 10*3/uL 0.33-0.92 EOS x10^3 (test code = 711-2) 0.10 10*3/uL 0.03-0.39 BASO x10^3 (test code = 704-7) 0.01-0.07 Lab Interpretation (test code = 11968-9) [facility] This is a pre-surgical type and screen. ONCE [id number] 13:38:39* Test Item Value Reference Range Interpretation Comme nts ABO & RH (test code = 20) O Positive Performed at [facility] Laboratory Services - [facility] Blood [address] [place], [place] [id number] Free: [phone] No. [id number] IAT (test code = 1185) Negative Performed at [facility] Laboratory Services - [facility] Blood [address] [place], [place] [address]Toll Free: [phone] No. [id number] [facility] This is a pre-surgical type and screen. ONCE [id number] 13:38:39* Test Item Value Reference Range Interpretation Comme nts ABO & RH (test code = 20) O Positive Performed at [facility] Laboratory [facility] - [facility] Blood [address] [place] [address] Free: [phone] No. [id number] IAT (test code = 1185) Negative Performed at [facility] Laboratory [facility] Blood [address] [place] [address] Free: [phone] No. [id number] [facility] GLUCOSE (AUTOMATED)2022-09-23 12:53:02* Test Item Value Reference Range Interpretation Comme nts POCT GLU (test code = 1073588007) 105 mg/dL 70-110 Lab Interpretation (test cod e = 95563-4) Normal [facility] GLUCOSE (AUTOMATED)2022-09-23 12:53:02* Test Item Value Reference Range Interpretation Comme nts POCT GLU (test code = 2000786231) 105 mg/dL 70-110 Lab Interpretation (test cod e = 22482-6) Normal [facility] [id number] 17:00:16* Test Item Value Reference Range Interpretation Comme nts TROPONIN I (test code = 9765759932) 0.003 ng/mL <=0.034 SRIRAM (test code = [...] of biotin. Lab Interpretation (test code = 67599-0) Normal [facility] GLUCOSE (AUTOMATED)2022-06-12 18:17:12* Test Item Value Reference Range Interpretation Comme nts POCT GLU (test code = 3872737500) 161 mg/dL 70-110 H Lab Interpretation (test cod e = 59768-1) Abnormal [facility] GLUCOSE (AUTOMATED)2022-06-12 08:00:25* Test Item Value Reference Range Interpretation Comme nts POCT GLU (test code = 7578535033) 122 mg/dL 70-110 H Lab Interpretation (test cod e = 28149-9) Abnormal [facility] GLUCOSE (AUTOMATED)2022-06-12 01:58:54* Test Item Value Reference Range Interpretation Comme nts POCT GLU (test code = 4921243967) 124 mg/dL 70-110 H Lab Interpretation (test cod e = 18831-9) Abnormal [facility] GLUCOSE (AUTOMATED)2022-06-11 22:59:46* Test Item Value Reference Range Interpretation Comme nts POCT GLU (test code = 4274494227) 115 mg/dL 70-110 H Lab Interpretation (test cod e = 10968-8) Abnormal [facility] GLUCOSE (AUTOMATED)2022-06-11 22:59:46* Test Item Value Reference Range Interpretation Comme nts POCT GLU (test code = 7796568442) 104 mg/dL 70-110 Lab Interpretation (test cod e = 65759-3) Normal [facility] GLUCOSE (AUTOMATED)2022-06-11 14:11:49* Test Item Value Reference Range Interpretation Comme nts POCT GLU (test code = 2848824685) 91 mg/dL 70-110 Lab Interpretation (test cod e = 41406-8) Normal [facility] CampusIRON [id number] 09:07:50* Test Item Value Reference Range Interpretation Comme nts IRON (test code = 2290399082) 39 ug/dL 50-160 L TIBC (test code = 4097273232) 346 ug/dL 250-410 % FE SAT (test code = 3588301782) 11 % 20-50 L Lab Interpretation (test cod e = 65186-7) Abnormal [facility] CampusFERRITIN [id number] 08:27:06* Test Item Value Reference Range Interpretation Comme nts FERRITIN (test code = 6926904202) 7.5 ng/mL 11.0-264.0 L SRIRAM (test code = SRIRAM) Biotin has been reported to cause a negative bias, interpret results relative to patient's use of biotin. Lab Interpretation (test code = 20737-4) Abnormal [facility] CampusN-TERMINAL [id number] 08:01:40* Test Item Value Reference Range Interpretation Comme nts NT-proBNP (test code = 4409975341) 39 pg/mL See_Comment [Automated message] The system which generated this result transmitted reference range: <=125. The reference range was not used to interpret this result as normal/abnormal. SRIRAM (test code = SRIRAM) Biotin has been reported to cause a negative bias, interpret results relative to patient's use of biotin. Lab Interpretation (test code = 82683-2) Normal [facility] CampusPOWY GLUCOSE (AUTOMATED)2022-06-11 07:59:15* Test Item Value Reference Range Interpretation Comme nts POCT GLU (test code = 1262215362) 141 mg/dL 70-110 H Lab Interpretation (test cod e = 20750-4) Abnormal [facility] CampusMAGNESIUM2022-11-08 07:59:15* Test Item Value Reference Range Interpretation Comme nts MAGNESIUM (test code = 3717711947) 1.6 mg/dL 1.7-2.4 L Lab Interpretation (test cod e = 79131-6) Abnormal [facility] CampusPHOSPHORUS2022-11-08 07:59:10* Test Item Value Reference Range Interpretation Comme nts PHOSPHORUS (test code = 9594585885) 2.6 mg/dL 2.5-5.0 Lab Interpretation (test cod e = 91803-9) Normal [facility] CampusURIC [id number] 07:59:05* Test Item Value Reference Range Interpretation Comme nts URIC ACID (test code = 5179771801) 3.0 mg/dL 2.9-6.0 Lab Interpretation (test cod e = 95612-5) Normal [facility] (NA, K, CL, CO2, GLUCOSE, BUN, CREATININE, CA)2022-06-10 18:34:39* Test Item Value Reference Range Interpretation Comme nts NA (test code = 0987953321) 139 mmol/L 135-145 K (test code = 4747025307) 4.2 mmol/L 3.5-5.0 CL (test code = 6040083586) 105 mmol/L 98-108 CO2 TOTAL (test code = 9145612642) 28 mmol/L 23-31 AGAP (test code = 0721238080) 2-16 BUN (test code = 8467109371) 15 mg/dL 7-23 GLUCOSE (test code = 6435213452) 106 mg/dL 70-110 CREATININE (test code = 5514043836) 0.75 mg/dL 0.50-1.04 CALCIUM (test code = 4125395322) 9.0 mg/dL 8.6-10.6 eGFR (test code = 9959496986) mL/min/1.73m2 SRIRAM (test code = SRIRAM) Association [...] or urine or abnormalities in imaging tests). [facility] CampusHEPATIC FUNCTION PANEL (47264) (ALB,T.PRO,BILI T,BU/BC,ALT,AST,ALK PHOS)2022-06-10 18:34:39* Test Item Value Reference Range Interpretation Comme nts TOTAL BILI (test code = 7412248895) 0.4 mg/dL 0.1-1.1 BILI UNCON (test code = 0260546396) 0.2 mg/dL 0.1-1.1 BILI CONJ (test code = 0221706326) 0.0 mg/dL 0.0-0.3 T PROTEIN (test code = 1676456108) 6.9 g/dL 6.3-8.2 ALBUMIN (test code = 6323739764) 4.0 g/dL 3.5-5.0 ALK PHOS (test code = 9923450491) 139 U/L 34-122 H ALTv (test code = 1742-6) 23 U/L 5-35 AST(SGOT) (test code = 7398231069) 21 U/L 13-40 Lab Interpretation (test cod e = 43777-0) Abnormal [facility] CampusLIPASE2022-11-07 18:34:39* Test Item Value Reference Range Interpretation Comme nts LIPASE (test code = 2419324750) 108 U/L 0-220 Lab Interpretation (test cod e = 87170-6) Normal [facility] WITH [id number] 18:27:20* Test Item Value Reference Range Interpretation Comme nts WBC (test code = 6690-2) See_Comment [Automated [employer]] The system which generated this result transmitted reference range: 4.30 - 11.10 10*3/?L. The reference range was not used to interpret this result as normal/abnormal. RBC (test code = 789-8) See_Comment [Automated [employer]] The system which generated this result [...] 31.8 g/dL 31.6-35.1 RDW-SD (test code = 11786-4) 48.3 fL 39.0-49.9 RDW-CV (test code = 788-0) 15.4 % 12.0-15.5 PLT (test code = 777-3) See_Comment [Automated messa ge] The system which generated this result transmitted reference range: 166 - 358 10*3/?L. The reference range was not used to interpret this result as normal/abnormal. MPV (test code = 13333-3) 10.4 fL 9.5-12.9 NRBC/100 WBC (test code = 5525556396) See_Comment [Automated me ssage] The system which generated this result transmitted reference range: 0.0 - 10.0 /100 WBCs. The reference range was not used to interpret this result as normal/abnormal. NRBC x10^3 (test code = 1456076345) See_Comment [Automated me ssage] The system which generated this result transmitted reference range: 10*3/?L. The reference range was not used to interpret this result as normal/abnormal. GRAN MAT (NEUT) % (test code = 770-8) 62.1 % IMM GRAN % (test code = 0656774695) 0.50 % LYMPH % (test code = 736-9) 29.1 % MONO % (test code = 5905-5) 7.3 % EOS % (test code = 713-8) 0.6 % BASO % (test code = 706-2) 0.4 % GRAN MAT x10^3(ANC) (test code = 6670437633) 5.30 10*3/uL 1.88-7.09 IMM GRAN x10^3 (test code = 3849434495) 0.04 10*3/uL 0.00-0.06 LYMPH x10^3 (test code = 731-0) 2.48 10*3/uL 1.32-3.29 MONO x10^3 (test code = 742-7) 0.62 10*3/uL 0.33-0.92 EOS x10^3 (test code = 711-2) 0.05 10*3/uL 0.03-0.39 BASO x10^3 (test code = 704-7) 0.03 10*3/uL 0.01-0.07 [facility] Consult Notes Date/Time Note Provider Source 2023-08-30 13:19:15 Associated Order(s): CONSULT CARDIOLOGY [facility] Cardiology Consult PCP: Estefany Evans Date of Service: 08/30/2023 CHIEF COMPLAINT/reason for consult: Chest pain HISTORY OF PRESENT ILLNESS This is a 53 years old female with past med history of type 2 diabetes and morbid obesity. She came to [facility] for chest pain. It is left-sided [...] Left 01/14/2022 Surgeon: Kayla Lutz MD; Location: [facility] JOINT SURGERY right shoulder MAJOR JOINT INJECTION Bilateral 09/23/2022 Surgeon: Kayla Lutz MD; Location: [facility] TUBAL LIGATION Family History Problem Relation Age [...] be of further assistance. Bree Cervantes MD, [facility] Division of Cardiovascular Medicine [facility] - Health History and Physical Notes Date/Time Note Provider Source 2023-08-29 20:24:02 MEDICINE MEGANJ ADMIT H&P Date of Service: 08/29/2023 CHIEF [...] Left 01/14/2022 Surgeon: Kayla Lutz MD; Location: [facility] JOINT SURGERY right shoulder MAJOR JOINT INJECTION Bilateral 09/23/2022 Surgeon: Kayla Lutz MD; Location: [facility] TUBAL LIGATION Family History Problem Relation Age [...] 08/29/23 1731 08/29/23 1800 08/29/23 1929 08/29/23 195 BP: 120/52 121/72 127/69 Pulse: 72 77 [...] Prophylaxis: DVT- enoxaparin Code Status: Full Code [facility] EMERGENCY PHYSICIAN STAFF [facility]
[2024-07-24] MEDS ORDERED: METOCLOPRAMIDE 10 MG/2mL INJ ONE (21:51)
[2024-07-24] MEDS ORDERED: NA CHLORIDE 0.9% 500 ML ONE (21:51)
[2024-07-24] MEDS ORDERED: MORPHINE 4 MG/ML SYR ONE (21:51)
[2024-07-24 21:55] LABS: Absolute Eosinophils 0.1 K/uL (0-0.5); Absolute Lymphocytes (CBC) 2.2 K/uL (0.7-4.9); Absolute Monocytes 0.6 K/uL (0.1-1.3); Absolute Neutrophil 3.8 K/uL (1.8-8.0); Basophils % 0.4 % (0-1.3); Eosinophils % 1.4 % (0-4.4); Hematocrit 34.3 % (36.0-45.0); Hemoglobin 11.3 g/dL (12.0-15.0); Lymphocytes % 33.5 % (15.3-44.8); MCH 29.1 pg (27.0-35.0); MCHC 32.8 g/dL (32.0-36.0); MCV 88.5 fL (80-100); Monocytes % 8.3 % (3.3-12.3); Neutrophils % 56.4 % (41.7-73.7); Platelets 308 thou/uL (152-406); RBC Red Blood Cell Count 3.88 M/uL (3.86-4.86); Red Cell Distribution Width 16.8 % (12.1-15.2)
[2024-07-24 22:03] LABS: PT Prothrombin Time 11.9 SECONDS (9.4-12.5); Protime INR 1.06
--- NOTE | 2024-07-24 22:15 | RAD REPORT ---
EXAM: Chest Single View HISTORY: CHEST PAIN COMPARISON: 05/18/2024 FINDINGS: LUNGS/PLEURA: The lungs are clear. No pleural effusions or pneumothorax. No pulmonary edema. MEDIASTINUM: The mediastinal silhouette is within normal limits. CARDIAC: Within normal limits. UPPER ABDOMEN: No significant abnormality. BONES: No acute fracture. LINES/TUBES/OTHER: N/A IMPRESSION: No evidence of acute cardiopulmonary disease.
[2024-07-24 22:21] LABS: ALT/SGPT 15 U/L (13-56); AST/SGOT 12 U/L (15-37); Albumin 3.1 g/dL (3.4-5.0); Albumin/Globulin Ratio 0.7 (1.1-1.8); Alkaline Phosphatase 132 U/L (45-117); Anion Gap 10.4 mEq/L (5.0-15.0); BUN Blood Urea Nitrogen 20 mg/dL (7-18); Bicarbonate 24 mEq/L (21-32); Bilirubin Total 0.3 mg/dL (0.2-1.0); Globulin 4.3 g/dL (2.3-3.5); Glomerular Filtration Rate 75 ml/min (=/>90); Glucose Level 118 mg/dL (74-106); Magnesium 1.9 mg/dL (1.6-2.4); NT PRO-BNP 21 pg/mL (<125); Potassium 3.4 mEq/L (3.5-5.1); Protein, Total 7.4 g/dL (6.4-8.2); Sodium Level 140 mEq/L (136-145); Troponin High Sensitivity 3.9 pg/mL (<58.9)
[2024-07-24 22:22] LABS: Bilirubin Direct < 0.2 mg/dL (0-0.2); Bilirubin Indirect, Calculated 0.1 mg/dL (0.2-0.8)
[2024-07-25] MEDS ORDERED: KETOROLAC 30 MG/ML INJ ONE (00:01)
[2024-07-25] MEDS ORDERED: LORazepam 2 MG/ML VIAL ONE (01:38)
--- NOTE | 2024-07-25 01:41 | RAD REPORT ---
EXAM: CT Angiography Chest With Intravenous Contrast CLINICAL HISTORY: The patient is 54 years old and is Female; Chest pain, SOB. TECHNIQUE: Axial computed tomographic angiography images of the chest with intravenous contrast. Sagittal and coronal reformatted images were created and reviewed. This CT exam was performed using one or more of the following dose reduction techniques: automated exposure control, adjustmen t of the mA and/or kV according to patient size, and/or use of iterative reconstruction technique. MIP reconstructed images were created and reviewed. CONTRAST: Not mentioned. COMPARISON: CTA Chest 10/06/2023 (report available, no images). FINDINGS: Pulmonary arteries: No pulmonary embolus. Aorta: No aortic aneurysm or dissection. No aortic atherosclerotic calcification. Lungs: Airways. No acute infiltrate. Bilateral subsegmental atelectasis. Pleural space: No pleural effusion or pneumothorax. Heart: Mild cardiomegaly. Mediastinum: Esophagus nondilated or thickened. Bones/joints: No acute fracture. No aggressive osseous lesion. Soft tissues: Normal body wall soft tissues. Lymph nodes: No enlarged lymph nodes. Gallbladder and bile ducts: Prior cholecystectomy. IMPRESSION: 1. No pulmonary embolus. No aortic aneurysm or dissection. 2. Bilateral subsegmental atelectasis. No acute infiltrate. 3. Mild cardiomegaly. Electronically signed by: Noemi Jones MD 07/25/2024 01:37 AM [facility] Due to temporary technical issues with the PACS/urturn reporting system, reports are being americo d by the in-house radiologist without review as a courtesy to ensure prompt reporting the interpreting radiologist is fully responsible for the content of the report. Transcribed Date/Time: 07/25/2024 1:41 AM
--- NOTE | 2024-07-25 02:38 | ER ---
Nurse's Notes [facility] Name: Jazmín Perez Age: 54 yrs Sex: Female : 1970 Arrival Date: 07/24/2024 Time: 21:18 Bed 5 Private MD: Diagnosis: Chest pain, unspecified;Chronic pain, not elsewhere classified Presentation: 07/24 21:36 Chief complaint: Patient states: chest pain that started while driving. Coronavirus vc1 screen: Client denies travel out of the [place] in the last 14 days. At this time, the client does not indicate any symptoms associated with coronavirus-19. Ebola Screen: Patient negative for fever greater than or equal to 101.5 degrees Fahrenheit, and additional compatible Ebola Virus Disease symptoms Patient denies exposure to infectious person. Patient denies travel to an Ebola-affected area in the 21 days before illness onset. No symptoms or risks identified at this time. Initial Sepsis Screen: Does the patient meet any 2 criteria? No. Patient's initial sepsis screen is negative. Does the patient have a suspected source of infection? No. Patient's initial sepsis screen is negative. Risk Assessment: Do you want to hurt yourself or someone else? Patient reports no desire to harm self or others. Onset of symptoms was July 24, 2024 at 20:50. 21:36 Method Of Arrival: Ambulatory vc1 21:36 Acuity: LOU 3 vc1 Triage Assessment: 21:41 General: Appears in no apparent distress. obese, Behavior is anxious, crying. Pain: vc1 Complains of pain in anterior aspect of left upper chest and mid-sternal area Pain does not radiate. Pain currently is 10 out of 10 on a pain scale. Quality of pain is described as sharp, Noted to be crying, Also complains of nausea. EENT: No deficits noted. No signs and/or symptoms were reported regarding the EENT system. Neuro: Level of Consciousness is awake, alert, obeys commands, Oriented to person, place, time, situation, Appropriate for age. Cardiovascular: Capillary refill < 3 seconds Patient's skin is warm and dry. Rhythm is Sinus with Prolonged QT Chest pain is described as severe, Pain is 9 out of 10 on a pain scale. Cardiovascular: Reports chest pain, shortness of breath, since 2049. Respiratory: Reports shortness of breath Airway is patent Respiratory effort is even, unlabored, Respiratory pattern is regular, symmetrical. GI: No deficits noted. No signs and/or symptoms were reported involving the gastrointestinal system. : No deficits noted. No signs and/or symptoms were reported regarding the genitourinary system. Derm: Skin is intact, is healthy with good turgor, Skin is dry, Skin is normal, Skin temperature is warm. Musculoskeletal: Circulation, motion, and sensation intact. Range of motion: intact in all extremities. 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 - Infectious Disease History:: Denies. - Social history:: Smoking status: Patient denies any tobacco usage or history of. Screenin:38 [facility] ED Fall Risk Assessment (Adult) History of falling in the last 3 months, vc1 including since admission No falls in past 3 months (0 pts) Confusion or Disorientation No (0 pts) Intoxicated or Sedated No (0 pts) Impaired Gait No (0 pts) Mobility Assist Device Used No (0 pt) Altered Elimination No (0 pt) Score/Fall Risk Level 0 - 2 = Low Risk Oriented to surroundings, Maintained a safe environment, Educated pt \T\ family on fall prevention, incl call for assistance when getting out of bed. Abuse screen: Denies threats or abuse. Nutritional screening: No deficits noted. Tuberculosis screening: No symptoms or risk factors identified. Assessment: 21:46 General: Appears in no apparent distress. Behavior is anxious, crying. Pain: Complains al5 of pain in mid-sternal area and anterior aspect of left upper chest Pain began suddenly. Neuro: Level of Consciousness is awake, alert, obeys commands, Oriented to person, place, time, situation. Cardiovascular: Reports chest pain, Capillary refill < 3 seconds Patient's skin is warm and dry. Respiratory: Reports shortness of breath Airway is patent Respiratory effort is even, unlabored, Respiratory pattern is regular, symmetrical. GI: Abdomen is non-distended, obese. : No signs and/or symptoms were reported regarding the genitourinary system. EENT: No signs and/or symptoms were reported regarding the EENT system. Derm: Skin is intact, is healthy with good turgor, Skin is pink, warm \T\ dry. normal. Musculoskeletal: No signs and/or symptoms reported regarding the musculoskeletal system. 23:02 Reassessment: Patient appears in no apparent distress at this time. No changes from al5 previously documented assessment. Patient and/or family updated on plan of care and expected duration. Pain level reassessed. Patient is alert, oriented x 3, equal unlabored respirations, skin warm/dry/pink. 07/25 00:45 Reassessment: Patient appears in no apparent distress at this time. No changes from al5 previously documented assessment. Patient and/or family updated on plan of care and expected duration. Pain level reassessed. Patient is alert, oriented x 3, equal unlabored respirations, skin warm/dry/pink. 01:46 Reassessment: Patient appears in no apparent distress at this time. No changes from al5 previously documented assessment. Patient and/or family updated on plan of care and expected duration. Pain level reassessed. Patient is alert, oriented x 3, equal unlabored respirations, skin warm/dry/pink. 02:37 Reassessment: Patient appears in no apparent distress at this time. No changes from al5 previously documented assessment. Patient is alert, oriented x 3, equal unlabored respirations, skin warm/dry/pink. Patient states feeling better. 03:00 Reassessment: pt was sleeping when came in to discharge, respirations were even bm8 unlabored with symmtrical rise and fall of chest. General: Appears in no apparent distress. comfortable, Behavior is calm, cooperative, appropriate for age. Pain: Complains of pain in chest Pain currently is 6 out of 10 on a pain scale. Neuro: No deficits noted. Level of Consciousness is awake, alert, obeys commands, Oriented to person, place, time, situation. Cardiovascular: Reports chest pain, Capillary refill < 3 seconds in bilateral fingers toes Patient's skin is warm and dry. Rhythm is sinus rhythm. Respiratory: Airway is patent Trachea midline Respiratory effort is even, unlabored, Respiratory pattern is regular, symmetrical, Breath sounds are clear bilaterally. Vital Signs: 07/24 21:36 BP 118 / 75; Pulse 85; Resp 16; Pulse Ox 98% ; Weight 97.98 kg; Height 5 ft. 2 in. ; vc1 Pain 9/10; 21:45 BP 140 / 65; Pulse 85; Resp 18; Pulse Ox 95% on R/A; al5 22:00 BP 121 / 68; Pulse 85; Resp 19; Pulse Ox 96% on R/A; al5 22:30 BP 123 / 61; Pulse 86; Resp 17; Pulse Ox 97% on R/A; al5 23:00 BP 117 / 63; Pulse 84; Resp 15; Pulse Ox 94% on R/A; al5 23:30 BP 118 / 63; Pulse 79; Resp 13; Pulse Ox 95% on R/A; al5 07/25 00:00 BP 130 / 70; Pulse 83; Resp 14; Pulse Ox 95% on R/A; al5 00:30 BP 113 / 51; Pulse 88; Resp 15; Pulse Ox 97% on R/A; al5 01:00 BP 108 / 50; Pulse 89; Resp 18; Pulse Ox 98% on R/A; al5 01:30 BP 115 / 68; Pulse 82; Resp 16; Pulse Ox 99% on R/A; al5 02:00 BP 103 / 69; Pulse 79; Resp 17; Pulse Ox 96% on R/A; al5 02:30 BP 115 / 73; Pulse 87; Resp 17; Pulse Ox 98% on R/A; al5 03:00 BP 110 / 64; Pulse 90; Resp 14; Temp 98.1; Pulse Ox 94% on R/A; Pain 6/10; bm8 07/24 21:36 Body Mass Index 39.51 (97.98 kg, 157.48 cm) vc1 07/24 21:36 Pain Scale: Adult vc1 03:00 Pain Scale: Adult bm8 Carlos Coma Score: 03:00 Eye Response: spontaneous(4). Motor Response: obeys commands(6). Verbal Response: bm8 oriented(5). Total: 15. ED Course: 07/24 21:23 Patient arrived in ED. gm2 21:23 Onel Gibbs PA is PHCP. cp 21:23 Malcolm Bravo MD is Attending Physician. cp 21:38 Triage completed. vc1 21:38 Arm band placed on right wrist. vc1 21:40 Patient has correct armband on for positive identification. Placed in gown. Bed in low vc1 position. Call light in reach. Provided Education on: EKG, Labs. court recording monitor on. Pulse ox on. NIBP on. 21:43 Missed attempt(s): 22 gauge in left antecubital area. Bleeding controlled, band aid vc1 applied, catheter tip intact. Patient maintains SpO2 saturation greater than 95% on room air. 21:45 Iris Gonsales, BERNABE is Primary Nurse. al5 21:47 No provider procedures requiring assistance completed. Inserted saline lock: 22 gauge al5 in right forearm, using aseptic technique. Blood collected. Flushed with 10 mL NS. 22:11 XRAY Chest (1 view) In Process Unspecified. EDMS 07/25 00:51 CT Chest For PE Angio In Process Unspecified. EDMS 03:00 IV discontinued, intact, bleeding controlled, No redness/swelling at site. Pressure al5 dressing applied. Administered Medications: 07/24 22:03 Drug: NS 0.9% IV 500 ml 500 ml IV at 1 bolus once; to be given as a bolus over 30 al5 minutes Volume: 500 ml; Route: IV; Rate: 1 bolus; Site: right forearm; 07/25 00:58 Follow up: Response: No adverse reaction; IV Status: Completed infusion; IV Intake: al5 500ml 07/24 22:03 Drug: morphine IVP or IV 4 mg IVP once over 4 mins Route: IVP; Infused Over: 4 mins; al5 Site: right forearm; 07/25 00:58 Follow up: Response: No adverse reaction al5 07/24 22:03 Drug: metoCLOPramide IVP 10 mg IVP once; over 1 to 2 minutes Route: IVP; Site: right al5 forearm; 07/25 00:58 Follow up: Response: No adverse reaction; Nausea is decreased al5 00:20 Drug: Ketorolac IVP 15 mg IVP once Route: IVP; Site: right forearm; al5 01:24 Follow up: Response: No adverse reaction; Pain is unchanged, physician notified al5 01:35 Not Given (Other Intervention Used): fentanyl (pf)50 mcg IVP once al5 01:47 Drug: Ativan IVP 2 mg IVP once Route: IVP; Site: right forearm; al5 02:50 Follow up: Response: No adverse reaction; Marked relief of symptoms al5 Medication: 07/24 21:40 VIS not applicable for this client. vc1 Intake: 07/25 00:58 IV: 500ml; Total: 500ml. al5 Outcome: 02:37 Discharge ordered by MD. funes 03:03 Patient left the ED. al5 03:03 Discharged to home ambulatory, with family, bm8 03:03 Condition: stable 03:03 Discharge instructions given to patient, Instructed on discharge instructions, follow up and referral plans. no drinking with medication, no driving heavy equipment, medication usage, safety practices, Demonstrated understanding of instructions, follow-up care, medications, Signatures: Dispatcher [employer] EDMS Onel Gibbs PA PA cp Calcote, Vanessa RN RN 1 Samatnha Torres 2 Malcolm Bravo MD MD bo1 Angel Quinones RN RN bm8 Iris Gonsales RN RN al5 Corrections: (The following items were deleted from the chart) 07/24 21:48 21:46 Cardiovascular: Capillary refill < 3 seconds Patient's skin is warm and dry. al5 al5 21:48 21:46 Respiratory: Airway is patent Respiratory effort is even, unlabored, Respiratory al5 pattern is regular, symmetrical, al5 07/25 03:03 03:01 Blood products: PRBCs X 1 unit given. al5 al5
--- NOTE | 2024-07-25 02:39 | EDPHYS ---
Physician Documentation [facility] Name: Jazmín Perez Age: 54 yrs Sex: Female : 1970 Arrival Date: 07/24/2024 Time: 21:18 Bed 5 Private MD: ED Physician Malcolm Bravo HPI: 07/24 21:40 This 54 yrs old Female presents to ER via Ambulatory with complaints of Chest cp Pain. 21:40 The patient or guardian reports chest pain that is located primarily in the anterior cp chest wall, bilaterally. Onset: today. 21:40 The chest pain is described as stabbing. Duration: The patient or guardian reports a cp single episode, that is still ongoing, and worsening. 21:40 Associated signs and symptoms: Pertinent positives: shortness of breath, Pertinent cp negatives: cough, diaphoresis, lower extremity pain, lower extremity swelling, near syncope, palpitations, syncope. 21:40 Severity of pain: in the emergency department the pain is unchanged despite home cp interventions. 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 - Infectious Disease History:: Denies. - Social history:: Smoking status: Patient denies any tobacco usage or history of. ROS: 21:45 Cardiovascular: Positive for chest pain, cp 21:45 Respiratory: Positive for shortness of breath, at rest. cp 21:45 Abdomen/GI: Negative for abdominal pain, vomiting, diarrhea, constipation, 21:45 Constitutional: Negative for fever, chills, and weight loss cp 21:45 Eyes: Negative for blurry vision, cp 21:45 Neuro: Negative for altered mental status, headache, numbness, syncope, near syncope, weakness, 21:45 All other systems are negative, Exam: 21:27 ECG was reviewed by the Attending Physician. cp 21:48 Constitutional: The patient appears in no acute distress, alert, awake, cp non-diaphoretic, non-toxic, well developed, well nourished, anxious, obese, 21:48 Head/Face: Normocephalic, atraumatic. cp 21:48 Eyes: Periorbital structures: appear normal, Conjunctiva: normal, no exudate, no injection, Sclera: no appreciated abnormality, Lids and lashes: appear normal, bilaterally, 21:48 ENT: External ear(s): are unremarkable, Nose: is normal, Mouth: Lips: moist, Oral mucosa: moist, Posterior pharynx: is normal, airway is patent, no erythema, no exudate, 21:48 Neck: ROM/movement: is normal, is supple, without pain, no range of motions limitations, 21:48 Chest/axilla: Inspection: normal, 21:48 Cardiovascular: Rate: normal, Rhythm: regular, Edema: is not appreciated, JVD: is not appreciated, 21:48 Respiratory: the patient does not display signs of respiratory distress, Respirations: normal, no use of accessory muscles, no retractions, labored breathing, is not present, Breath sounds: are clear throughout, no decreased breath sounds, no stridor, no wheezing, 21:48 Abdomen/GI: Inspection: obese Palpation: abdomen is soft and non-tender, in all quadrants, 21:48 Neuro: Orientation: to person, place \T\ time. Mentation: is normal, Vital Signs: 21:36 BP 118 / 75; Pulse 85; Resp 16; Pulse Ox 98% ; Weight 97.98 kg; Height 5 ft. 2 in. ; vc1 Pain 9/10; 21:45 BP 140 / 65; Pulse 85; Resp 18; Pulse Ox 95% on R/A; al5 22:00 BP 121 / 68; Pulse 85; Resp 19; Pulse Ox 96% on R/A; al5 22:30 BP 123 / 61; Pulse 86; Resp 17; Pulse Ox 97% on R/A; al5 23:00 BP 117 / 63; Pulse 84; Resp 15; Pulse Ox 94% on R/A; al5 23:30 BP 118 / 63; Pulse 79; Resp 13; Pulse Ox 95% on R/A; al5 1222 00:00 BP 130 / 70; Pulse 83; Resp 14; Pulse Ox 95% on R/A; al5 00:30 BP 113 / 51; Pulse 88; Resp 15; Pulse Ox 97% on R/A; al5 01:00 BP 108 / 50; Pulse 89; Resp 18; Pulse Ox 98% on R/A; al5 01:30 BP 115 / 68; Pulse 82; Resp 16; Pulse Ox 99% on R/A; al5 02:00 BP 103 / 69; Pulse 79; Resp 17; Pulse Ox 96% on R/A; al5 02:30 BP 115 / 73; Pulse 87; Resp 17; Pulse Ox 98% on R/A; al5 03:00 BP 110 / 64; Pulse 90; Resp 14; Temp 98.1; Pulse Ox 94% on R/A; Pain 6/10; bm8 07/24 21:36 Body Mass Index 39.51 (97.98 kg, 157.48 cm) vc1 07/24 21:36 Pain Scale: Adult vc1 03:00 Pain Scale: Adult bm8 Carlos Coma Score: 03:00 Eye Response: spontaneous(4). Motor Response: obeys commands(6). Verbal Response: bm8 oriented(5). Total: 15. MDM: 07/24 21:23 Medical Screening Exam initiated cp 07/25 02:36 Differential diagnosis: Atypical pain - CP, negative enzymes repeated. Data reviewed: bo1 vital signs, old medical records, lab test result(s). ED course: No indication for acute hospital stay or obs. 07/24 21:34 Order name: Basic Metabolic Panel; Complete Time: 23:05 cp 07/24 21:34 Order name: CBC with Diff; Complete Time: 23:05 cp 07/24 21:34 Order name: LFT's; Complete Time: 23:05 cp 07/24 21:34 Order name: Magnesium; Complete Time: 23:05 cp 07/24 21:34 Order name: NT PRO-BNP; Complete Time: 23:05 cp 07/24 21:34 Order name: PT-INR; Complete Time: 23:05 cp 07/24 21:34 Order name: Troponin HS; Complete Time: 23:05 cp 07/24 21:37 Order name: D-Dimer; Complete Time: 23:50 cp 07/25 00:25 Order name: Troponin High Sensitivity; Complete Time: 02:07 cp 07/24 21:34 Order name: XRAY Chest (1 view); Complete Time: 23:05 cp 07/24 23:50 Order name: CT Chest For PE Angio cp 07/24 21:34 Order name: EKG; Complete Time: 21:35 cp 07/24 21:34 Order name: Cardiac monitoring; Complete Time: 22:02 cp 07/24 21:34 Order name: EKG - Nurse/Tech; Complete Time: 21:46 cp 07/24 21:34 Order name: IV Saline Lock; Complete Time: 21:46 cp 07/24 21:34 Order name: Labs collected and sent; Complete Time: :46 cp 07/24 21:34 Order name: O2 Per Protocol; Complete Time: :46 cp 07/24 21:34 Order name: O2 Sat Monitoring; Complete Time: :46 cp EC/21 21:27 Rate is 82 beats/min. Rhythm is regular. NV interval is normal. QRS interval is normal. cp QT interval is normal. T waves are Inverted in leads aVR, V2, V3. Interpreted by me. Reviewed by me. Administered Medications: 22:03 Drug: NS 0.9% IV 500 ml 500 ml IV at 1 bolus once; to be given as a bolus over 30 al5 minutes Volume: 500 ml; Route: IV; Rate: 1 bolus; Site: right forearm; 07/25 00:58 Follow up: Response: No adverse reaction; IV Status: Completed infusion; IV Intake: al5 500ml 07/24 22:03 Drug: morphine IVP or IV 4 mg IVP once over 4 mins Route: IVP; Infused Over: 4 mins; al5 Site: right forearm; 07/25 00:58 Follow up: Response: No adverse reaction al5 07/24 22:03 Drug: metoCLOPramide IVP 10 mg IVP once; over 1 to 2 minutes Route: IVP; Site: right al5 forearm; 07/25 00:58 Follow up: Response: No adverse reaction; Nausea is decreased al5 00:20 Drug: Ketorolac IVP 15 mg IVP once Route: IVP; Site: right forearm; al5 01:24 Follow up: Response: No adverse reaction; Pain is unchanged, physician notified al5 01:35 Not Given (Other Intervention Used): fentanyl (pf)50 mcg IVP once al5 01:47 Drug: Ativan IVP 2 mg IVP once Route: IVP; Site: right forearm; al5 02:50 Follow up: Response: No adverse reaction; Marked relief of symptoms al5 Disposition: 02:38 I reviewed the patient's care provided by Advanced Practice Provider \T\ agree w/ the bo1 diagnosis \T\ care plan. I personally saw the pt \T\ performed a substantive portion of the visit, incldng all aspects of the (History/Exam/Medical Decision Making). Disposition Summary: 07/25/24 02:37 Discharge Ordered Notes: Location: Home bo1 Problem: chronic bo1 Symptoms: have improved bo1 Condition: Stable bo1 Diagnosis - Chest pain, unspecified bo1 - Chronic pain, not elsewhere classified bo1 Followup: bo1 - With: Private Physician - When: Upon discharge from the Emergency Department - Reason: Recheck today's complaints, Continuance of care Discharge Instructions: - Discharge Summary Sheet bo1 - Nonspecific Chest Pain, Adult bo1 Forms: - Medication Reconciliation Form bo1 - Antibiotic Education bo1 - Prescription Opioid Use bo1 - Patient Portal Instructions bo1 - Leadership Thank You Letter bo1 Signatures: Dispatcher [employer] EDCT Onel Gibbs PA PA cp Elza Prieto RN RN vc1 Malcolm Bravo MD MD bo1 Iris Gonsales RN RN al5 Corrections: (The following items were deleted from the chart) 07/24 21:37 21:37 D-[email or web address] ordered. [facility] EDCT 07/25 23:00 02:38 Constitutional: Negative for fever, chills, and weight loss bo1 cp
[2024-07-25 03:42] VITALS: BP 110/64; TEMP 98.1; O2SAT 94
--- NOTE | 2024-07-25 13:04 | EKG ---
Test Date: 2024-07-24 Test Time: 21:23:31 Regional Office Coordinator: SHANNAN MEASUREMENT RESULTS: Intervals: Rate: 82 OK: 148 QRSD: 98 QT: 406 QTc: 474 [place]: P: 38 OK: 148 QRS: 39 T: 56 INTERPRETIVE STATEMENTS: Normal sinus rhythm Nonspecific T wave abnormality Prolonged QT Abnormal ECG Compared to ECG 05/18/2024 06:07:48 T-wave abnormality now present Prolonged QT interval now present Myocardial infarct finding no longer present Electronically Signed On 07-25-24 13:03:40 [employer] by Sonu Duran
== END 2024-07-25 03:03 | disposition home or self-care (01) ==
LOC: ER 21:18
DX: R07.89 Other chest pain (principal); G89.29 Other chronic pain; E11.9 Type 2 diabetes mellitus without complications; F41.9 Anxiety disorder, unspecified
CPT/HCPCS: 96361; 93005; 85025; 80048; 36415; 83735; 85610; 85379; 80076; 84484 ×2; 83880; 71275; 71045; 96375; 96374; 99285; Q9967; J2765; J7040

== ENCOUNTER 2024-07-26 00:38 | Observation (INO) | payer OTHER ==
--- OUTSIDE RECORDS SUMMARY | 2024-07-26 00:43 | XMS REPORT | Continuity of Care Document ---
Author Name Unknown Address [address] [facility]. [address] [place] [address] [facility] thconnect Address [address] [facility] [address] [place] [address] Care Team Providers Care Illuminating Engineer Name Role Phone ESTEFANY EVANS Primary Care Physician Unavaila Estefany Bergman Attending Clinician Unavailable KAYLA LUTZ Attending Clinician UnavailLACEY Guzman Attending Clinician Unava ilBREE Pelaez Attending Clinician Unavailable Doctor Unassigned, [place] Attending Clinician U michaela Espinoza RN, Veronika Serra Attending Clinician Unavail able ANNAMARIA BARKER Attending Clinician Unavailable Yony GOMEZ, Marylou Sanabria Attending Clinician [phone] Annamaria Barker DO Attending Clinician [phone] Billy WOODSON, Bree Attending Clinician [phone] Kayla Lutz MD Attending Clinician [phone] Bernice Amaya Attending Clinician [phone] PEDRO LUIS RUSHING Attending Clinician Unavailable PEDRO LUIS RUSHING Attending Clinician Unavailable Pob, [facility] Attending Clinician UnavailBERNICE Conrad Attending Clinician Unavailable Chelo Cornejo RN Attending Clinician Unavailab carmelo Clemons MD, Brodie Evangelista Attending Clinician [phone] IFLIPE WIGGINS Attending Clinician Unavailable HEMA CLAYTONALMA PALM Attending Clinician Unavail able Bharath Padgett CRNA Attending Clinician [phone] Oliver Hunt MD Attending Clinician [phone] Only, Adc Test Attending Clinician Unavailable RENÉE AGUILERA Attending Clinician Unavail able RENÉE AGUILERA Attending Clinician Unavail able ANDREW RESENDIZ Attending Clinician Unavail able Nurse, Adc Pob Immunization Attending Clinician Unavailable Andrew Resendiz DO Attending Clinician Jonas Barker MD Attending Clinician Calin Lazar DO Attending Clinician [phone] KAYLA LUTZ Admitting Clinician UnavailANNAMARIA Amado Admitting Clinician Unavailable Annamaria Barker DO Admitting Clinician [phone] Kayla Lutz MD Admitting Clinician [phone] BERNICE COLUNGA Admitting Clinician Unavailable Payers Payer Name Policy Type Policy Number Effective Date Expirati on Date Source [facility] [place] [employer] [id number] 2021 00:00:00 [facility] HEALTH CHOICE [id number] 2015 00:00:00 [facility]BETTER [facility] [id number] 2020 00:00:00 [facility] DUAL COMP CHOICE PPO DSNP [id number] 2023 00:00:00 Ambetter from [facility] [id number] [facility] HIM AMBETTER FROM [facility] [id number] 2019 00:00:00 Ambetter from [facility] [id number] [facility] Ambetter from [facility] [id number] [facility] Ambetter from [facility] [id number] [facility] Problems Condition Name Condition Details Condition Category Status Onset Date Resolution Date Last Treatment Date Treating Clinician Comments Source Abnormal nuclear cardiac imaging test Abnormal nuclear cardiac imaging test Disease Active 08-30 00:00: 00 [facility] Chest pain, unspecifie d type Chest pain, unspecifie d type Disease Active 08-29 00:00: 00 [facility] Right lower quadrant abdominal pain Right lower quadrant abdominal pain Disease Active 2021-08 00:00: 00 [facility] Morbid obesity with body mass index of 40.0-49.9 Morbid obesity with body mass index of 40.0-49.9 Disease Active 01-15 00:00: 00 [facility] Arthritis of left hip Arthritis of left hip Disease Active 01-04 00:00: 00 Overview: Formattin g of this note might be different from the original. 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 non-steroi jaiden anti-infla mmatories (nsaid) long-term (current) use of non-steroi jaiden anti-infla mmatories (nsaid) Disease Active 03-31 00:00: 00 [facility] Other iron deficiency anemia Other iron deficiency anemia Disease Active 03-31 00:00: 00 [facility] Subcutaneo us nodules Subcutaneo us nodules Disease Active 03-31 00:00: 00 [facility] Bilateral knee pain Bilateral knee pain Disease Active 10-10 00:00: 00 [facility] Bilateral knee pain Bilateral knee pain Disease Active 10-10 00:00: 00 [facility] [id number] Pain, joint, hand, left Problem Active [facility] [id number] Primary osteoarthr itis of left hip Problem Active [facility] [id number] Trigger finger, right ring finger Problem Active [facility] [id number] Pain, joint, hand, right Problem Active [facility] [id number] Pain, joint, hip, right Problem [facility] [id number] Arthritis of right hip Problem [facility] [id number] Primary osteoarthr itis of right hip Problem [facility] [id number] Trochanter ic bursitis of left hip Problem [facility] [id number] Status post total replacemen t of left hip Problem [facility] Allergies, Adverse Reactions, Alerts Allergy Name Allergy Type Status Severity Reaction(s) Onset Date Inactive Date Treating Clinician Comments Source Codeine Propensi ty to adverse reaction s Active Nausea And Vomiting 09-07 00:00: 00 [facility] CODEINE DRUG INGREDI Active N/V 09-07 00:00: 00 [facility] codeine codeine Active Unknown [facility] Social History Social Habit Start Date Stop Date Quantity Comments Source History of Tobacco Use [facility] Sex Assigned At [facility] History SDOH Alcohol Std Drinks [facility] History SDOH Alcohol Binge [facility] Gender identity [facility] Sexual orientation U [facility] Exposure to SARS-CoV-2 (event) 2022-12-17 00:00:00 2022-12-27 08:47:00 Not sure [facility] History of Social function 2022-09-23 00:00:00 2022-09-23 00:00:00 [facility] History SDOH Food Worry 2022-06-13 00:00:00 2022-06-13 00:00:00 1 [facility] History SDOH Food Scarcity 2022-06-13 00:00:00 2022-06-13 00:00:00 1 [facility] History SDOH Transport Med 2022-06-13 00:00:00 2022-06-13 00:00:00 2 [facility] History SDOH Transport Non-Med 2022-06-13 00:00:00 2022-06-13 00:00:00 2 [facility] Tobacco use and exposure 2022-06-11 00:00:00 2022-06-11 00:00:00 Smokeless tobacco non-user [facility] Education - What is the highest level of school you have completed or the highest degree you have received? 2022-06-10 00:00:00 2022-06-10 00:00:00 Some college, no degree [facility] Alcohol intake 2020-12-18 00:00:00 2020-12-18 00:00:00 Lifetime non-drinker (finding) [facility] History SDOH Alcohol Frequency 2020-12-18 00:00:00 2020-12-18 00:00:00 1 [facility] Smoking Status Start Date Stop Date Source Never smoked tobacco [facility] Medications Ordered Medication Name Filled Medication Name Start Date Stop Date Current Medication? Ordering Clinician Indication Dosage Frequency Signature (SIG) Comments Components Source amitriptyli ne (ELAVIL) tablet 150 mg 08-30 15:00: 00 Yes 150mg 150 mg, Oral, DAILY, First dose on 08/30/23 at 0900, Until Discontinu ed, Routine [facility] enoxaparin (LOVENOX) injection 40 mg 08-30 15:00: 00 Yes 40mg 40 mg, Subcutaneo us, DAILY, First dose on 08/30/23 at 0900, Until Discontinu ed, Routine [facility] amitriptyli ne 150 mg tablet 08-30 14:20: 33 Yes amitriptyl ine 150 mg tablet Take 1 tablet every day by oral route for 30 days. [facility] semaglutide (OZEMPIC) 1 mg/dose (4 mg/3 mL) PnIj 08-30 14:20: 33 Yes 1.25mg inject 1.25 mg under the skin weekly. [facility] Sliding Scale Insulin - Lispro (HumaLOG) 08-30 03:00: 00 Yes Subcutaneo us, TID MEALS+HS, First dose on Fri08/29/23 at 2100, Until Discontinu ed, Routine [facility] pantoprazol e (PROTONIX) injection 40 mg 08-30 02:00: 00 Yes 40mg 40 mg, Slow IV Push, Q24H, First dose on Fri08/29/23 at 2000, Until Discontinu ed [facility] NaCl 0.9% (NS) IV infusion 1,000 mL 08-30 01:15: 00 Yes 1000mL at 75 mL/hr, IV Infusion, CONTINUOUS , Starting on Fri08/29/23 at 1915, Until Discontinu ed, Routine [facility] iopamidol (ISOVUE 370-500 mL) injection 75 mL 08-30 00:15: 00 08-30 00:15 :00 No [id number] 75mL 75 mL, Intravenou s, ONCE, 1 dose, On Fri08/29/23 at 1815, Routine [facility] proMETHazin e (PHENERGAN) 12.5 mg in NS 50 mL IV piggyback (CNR) 08-30 00:01: 07 Yes 12.5mg 12.5 mg, IV Piggyback, at 200 mL/hr Administer over 15 Minutes, Q4HPRN, Starting on Fri08/29/23 at 1801, Until Discontinu ed, Routine, N/V unresponsi ve to Ondansetro n [facility] ondansetron (ZOFRAN (PF)) injection 4 mg 08-30 00:00: 10 Yes 4mg 4 mg, Slow IV Push, Q6HPRN, Starting on Fri08/29/23 at 1800, Until Discontinu ed, Routine, Nausea and Vomiting (N/V) [facility] glucagon (GLUCAGEN DIAGNOSTIC KIT) injection 1 mg 08-29 23:59: 42 Yes 1mg 1 mg, Intramuscu lar, PRN, Starting on Fri08/29/23 at 1759, Until Discontinu ed, KUNAL, Blood Glucose < or = 70 mg/dL and patient is NPO, unable to swallow or has mental changes. [facility] dextrose 50 % in water (D50W) injection 25 mL 08-29 23:59: 42 Yes 25mL 25 mL, Slow IV Push, PRN, Starting on Fri08/29/23 at 1759, Until Discontinu ed, KUNAL, Blood Glucose < or = 70 mg/dL and patient is NPO, unable to swallow or has mental status changes. [facility] FENTanyl PF (SUBLIMAZE (PF)) injection 25 mcg 08-29 23:59: 16 08-30 23:58 :16 No 25ug 25 mcg, Slow IV Push, Q3HPRN, Starting on Fri08/29/23 at 1759, Until 08/30/23 at 1758, Routine, Pain (scale 7-10) [facility] acetaminoph en (TYLENOL) tablet 650 mg 08-29 23:59: 10 Yes 650mg 650 mg, Oral, Q6HPRN, Starting on Fri08/29/23 at 1759, Until Discontinu ed, Routine, Pain (scale 1-3) [facility] haloperidol lactate (HALDOL) injection 2.5 mg 08-29 22:30: 00 08-30 00:08 :00 No 2.5mg 2.5 mg, Intravenou s, ONCE, 1 dose, On Fri08/29/23 at 1630, STAT [facility] morpHINE (4 mg/mL) injection 4 mg 08-29 21:00: 00 08-29 20:55 :00 No 4mg 4 mg, Slow IV Push, ONCE, 1 dose, On Fri08/29/23 at 1500, STAT [facility] Fesoterodin e (TOVIAZ) 4 mg tablet 08-29 20:23: 58 08-29 00:00 :00 No Toviaz 4 mg tablet,ext ended release [facility] DULoxetine 60 mg capsule 08-29 20:23: 58 08-29 00:00 :00 No 60mg Take 1 capsule by mouth in the morning. [facility] proMETHazin e (PHENERGAN) 12.5 mg in NS 50 mL IV piggyback (CNR) 08-29 20:00: 00 08-29 20:48 :00 No 12.5mg 12.5 mg, IV Piggyback, at 200 mL/hr Administer over 15 Minutes, ONCE, 1 dose, On Fri08/29/23 at 1400, KUNAL [facility] iopamidol (ISOVUE 370-500 mL) injection 100 mL 08-29 20:00: 00 08-29 20:00 :00 No [id number] 100mL 100 mL, Intravenou s, ONCE, 1 dose, On Fri08/29/23 at 1400, Routine [facility] morpHINE (4 mg/mL) injection 4 mg 08-29 18:30: 00 08-29 18:45 :00 No 4mg 4 mg, Slow IV Push, ONCE, 1 dose, On Fri08/29/23 at 1230, STAT [facility] ketorolac (TORADOL) injection 30 mg 08-29 17:45: 00 08-29 16:48 :00 No 30mg 30 mg, Slow IV Push, ONCE, 1 dose, On Fri08/29/23 at 1145, Routine [facility] NaCl 0.9% (NS) bolus infusion 1,000 mL 08-29 17:30: 00 08-29 17:42 :00 No 1000mL at 999 mL/hr, 1,000 mL, IV Infusion, ONCE, 1 dose, On Fri08/29/23 at 1130, KUNAL [facility] famotidine (PEPCID (PF)) injection 20 mg 08-29 16:45: 00 08-29 16:45 :00 No 20mg 20 mg, Slow IV Push, ONCE, 1 dose, On Fri08/29/23 at 1045, [facility] ondansetron (ZOFRAN (PF)) injection 4 mg 08-29 16:45: 00 08-29 16:44 :00 No 4mg 4 mg, Slow IV Push, ONCE, 1 dose, On Fri08/29/23 at 1045, [facility] Xarelto 10 MG Xarelto 10 MG 05 00:00: 00 No 1{table t} QD Xarelto 10 MG Lidocaine Lidocaine 01-13 00:00: 00 No 5mL [facility] Kenalog (Triamcinol one) Kenalog (Triamcinol one) 01-13 00:00: 00 No 2mL [facility] atorvastati n 10 mg tablet 12-27 09:06: 57 12-27 00:00 :00 No 10mg Take 1 tablet by mouth in the morning. [facility] amitriptyli ne 150 mg tablet 12-27 08:56: 31 Yes amitriptyl ine 150 mg tablet Take 1 tablet every day by oral route for 30 days. [facility] Fesoterodin e (TOVIAZ) 4 mg tablet 12-27 08:56: 31 Yes Toviaz 4 mg tablet,ext ended release [facility] DULoxetine 60 mg capsule 12-27 08:56: 31 Yes 60mg Take 1 capsule by mouth in the morning. [facility] semaglutide (OZEMPIC) 1 mg/dose (4 mg/3 mL) PnIj 12-27 08:56: 31 Yes 1.25mg inject 1.25 mg under the skin weekly. [facility] traMADoL 50 mg tablet 12-21 00:00: 00 08-29 00:00 :00 No TAKE 1 TABLET BY MOUTH EVERY 8 HOURS NEEDED FOR 10 DAYS [facility] FENTanyl PF (SUBLIMAZE (PF)) injection 25 mcg 09-23 14:14: 37 Yes 25ug 25 mcg, Slow IV Push, Q5MIN PRN, 4 doses, Starting on Fri09/23/22 at 0814, Until Discontinu ed, Routine, Pain (scale 4-6), PACU [facility] ondansetron (ZOFRAN (PF)) injection 4 mg 09-23 14:14: 37 09-23 14:16 :00 No 4mg 4 mg, Slow IV Push, PRN, 1 dose, Starting on Fri09/23/22 at 0814, Until Fri09/23/22 at 0816, Routine, Nausea and Vomiting (N/V), PACU [facility] triamcinolo ne acetonide (KENALOG) injection 09-23 13:55: 00 09-23 17:13 :49 No PRN, Starting on Fri09/23/22 at 0755, Until Fri09/23/22 at 1113, Routine, Intra-op [facility] bupivacaine (preserv free) 0.5% (SENSORCAIN E MPF) 0.5 % (5 mg/mL) injection 09-23 13:55: 00 09-23 17:13 :49 No PRN, Starting on Fri09/23/22 at 0755, Until Fri09/23/22 at 1113, Routine, Intra-op [facility] triamcinolo ne acetonide (KENALOG) injection 09-23 13:53: 00 09-23 17:13 :49 No PRN, Starting on Fri09/23/22 at 0753, Until Fri09/23/22 at 1113, Routine, Intra-op [facility] bupivacaine (preserv free) 0.5% (SENSORCAIN E MPF) 0.5 % (5 mg/mL) injection 09-23 13:53: 00 09-23 17:13 :49 No PRN, Starting on Fri09/23/22 at 0753, Until Fri09/23/22 at 1113, Routine, Intra-op [facility] lactated ringers IV infusion 1,000 mL 09-23 12:45: 00 09-23 13:02 :00 No 1000mL at 42 mL/hr, 1,000 mL, IV Infusion, ONCE, 1 dose, On 09/23/22 at 0645, Routine, DSU Pre-op [facility] amitriptyli ne 150 mg tablet 09-23 09:08: 45 Yes amitriptyl ine 150 mg tablet Take 1 tablet every day by oral route for 30 days. [facility] Fesoterodin e (TOVIAZ) 4 mg tablet 09-23 09:08: 45 Yes Toviaz 4 mg tablet,ext ended release [facility] DULoxetine 60 mg capsule 09-23 09:08: 45 Yes 60mg Take 60 mg by mouth daily. [facility] atorvastati n 10 mg tablet 09-23 09:08: 45 Yes 10mg Take 10 mg by mouth in the morning. [facility] semaglutide (OZEMPIC) 1 mg/dose (4 mg/3 mL) PnIj 09-23 09:08: 45 Yes 1.25mg inject 1.25 mg under the skin weekly. [facility] aspirin 325 mg tablet 09-23 00:00: 00 10-22 04:59 :00 No [id number] 325mg Take 1 tablet by mouth in the morning and 1 tablet in the evening. Take with meals. Do all this for 28 days. [facility] semaglutide (OZEMPIC) 1 mg/dose (4 mg/3 mL) PnIj 09-17 13:39: 54 Yes 1.25mg inject 1.25 mg under the skin weekly. [facility] atorvastati n 10 mg tablet 09-17 13:19: 59 Yes 10mg Take 10 mg by mouth in the morning. [facility] amitriptyli ne 150 mg tablet 09-17 13:09: 47 Yes amitriptyl ine 150 mg tablet Take 1 tablet every day by oral route for 30 days. [facility] Fesoterodin e (TOVIAZ) 4 mg tablet 09-17 13:09: 47 Yes Toviaz 4 mg tablet,ext ended release [facility] DULoxetine 60 mg capsule 09-17 13:09: 47 Yes 60mg Take 60 mg by mouth daily. [facility] cefTRIAXone (ROCEPHIN) 1,000 mg in NaCl [...] Urine
D uration of Therapy: 7 days [facility] lactobacill us acidophilus 2021-08 00:00: 00 07-14 05:59 :00 No [id number] .5mg Take 1 tablet by mouth in the morning for 30 days. [facility] polyethylen e glycol 3350 17 gram powder 2021-08 00:00: 00 07-14 05:59 :00 No [id number] 17g Take 1 Packet by mouth in the morning for 30 days. [facility] sennosides- docusate sodium (SENOKOT-S) 8.6-50 mg per tablet 1 tablet 2021-08 16:15: 00 Yes 1{tbl} 1 tablet, Oral, DAILY, First dose on Fri06/12/22 at 1015, Until Discontinu ed, Routine [facility] polyethylen e glycol 3350 powder 17 g 2021-08 16:15: 00 Yes 17g 17 g, Oral, DAILY, First dose on Fri06/12/22 at 1015, Until Discontinu ed, Routine [facility] amitriptyli ne 150 mg tablet 2021-08 16:08: 30 Yes amitriptyl ine 150 mg tablet Take 1 tablet every day by oral route for 30 days. [facility] Fesoterodin e (TOVIAZ) 4 mg tablet 2021-08 16:08: 30 Yes Toviaz 4 mg tablet,ext ended release [facility] DULoxetine 60 mg capsule 2021-08 16:08: 30 Yes 60mg Take 60 mg by mouth daily. [facility] proMETHazin e 25 mg tablet 2021-08 00:00: 00 09-17 00:00 :00 No [id number] 25mg Take 1 tablet by mouth every 4 (four) hours as needed for N/V unresponsi ve to Ondansetro n. [facility] docusate 100 mg capsule 2021-08 00:00: 00 07-13 05:59 :00 No [id number] 100mg Take 1 capsule by mouth in the morning and 1 capsule in the evening. Do all this for 30 days. [facility] HYDROcodone -acetaminop hen 5-325 mg tablet 2021-08 00:00: 00 06-20 05:59 :00 No [id number] 1{tbl} Take 1 tablet by mouth every 6 (six) hours as needed for Pain (scale 7-10) for up to 7 days. Indication s: acute pain [facility] ciprofloxac in HCl 500 mg tablet 2021-08 00:00: 00 06-20 05:59 :00 No [id number] 500mg Take 1 tablet by mouth every 12 (twelve) hours for 7 days. [facility] metroNIDAZO LE 250 mg tablet 2021-08 00:00: 00 06-20 05:59 :00 No [id number] 500mg Take 2 tablets by mouth every 12 (twelve) hours for 7 days. [facility] proMETHazin e (PHENERGAN) 25 mg in NaCl 0.9% (NS) 50 mL IV piggyback 2021-08 21:26: 59 Yes 25mg 25 mg, IV Piggyback, Q4HPRN, Starting on Fri06/11/22 at 1526, Until Discontinu ed, Routine, Nausea and Vomiting (N/V), N/V unresponsi ve to Ondansetro n [facility] acetaminoph en (TYLENOL) tablet 650 mg 2021-08 15:55: 26 Yes 650mg 650 mg, Oral, Q6HPRN, Starting on Fri06/11/22 at 0955, Until Discontinu ed, Routine, Pain (scale 1-3) [facility] enoxaparin (LOVENOX) injection 40 mg 2021-08 15:00: 00 Yes 40mg 40 mg, Subcutaneo us, DAILY, First dose on Fri06/11/22 at 0900, Until Discontinu ed, Routine [facility] DULoxetine (CYMBALTA) capsule 60 mg 2021-08 15:00: 00 Yes 60mg 60 mg, Oral, DAILY, First dose on Fri06/11/22 at 0900, Until Discontinu ed, Routine [facility] lactobacill us acidophilus tablet 0.5 mg 2021-08 15:00: 00 Yes .5mg 0.5 mg, Oral, DAILY, First dose on Fri06/11/22 at 0900, Until Discontinu ed, Routine [facility] Sliding Scale Insulin - Lispro (HumaLOG) + Fsbg Testing 2021-08 14:00: 00 Yes Subcutaneo us, TID MEALS, First dose on Fri06/11/22 at 0800, Until Discontinu ed, Routine [facility] morpHINE (4 mg/mL) injection 4 mg 2021-08 12:52: 08 Yes 4mg 4 mg, Slow IV Push, Q4HPRN, Starting on Fri06/11/22 at 0652, Until Discontinu ed, Routine, Pain (scale 7-10) [facility] cefTRIAXone (ROCEPHIN) 1,000 mg in NaCl [...] Urine
D uration of Therapy: 7 days [facility] docusate (COLACE) capsule 100 mg 2021-08 06:15: 00 Yes 100mg 100 mg, Oral, BID, First dose on Fri06/11/22 at 0015, Until Discontinu ed, Routine [facility] gabapentin (NEURONTIN) capsule 200 mg 2021-08 06:15: 00 Yes 200mg 200 mg, Oral, BID, First dose on Fri06/11/22 at 0015, Until Discontinu ed, Routine [facility] ondansetron (ZOFRAN (PF)) injection 4 mg 2021-08 06:06: 47 Yes 4mg 4 mg, Slow IV Push, Q6HPRN, Starting on Fri06/11/22 at 0006, Until Discontinu ed, Routine, Nausea and Vomiting (N/V) [facility] traMADoL (ULTRAM) tablet 50 mg 2021-08 06:06: 37 06-13 06:05 :37 No 50mg 50 mg, Oral, Q8HPRN, Starting on Fri06/11/22 at 0006, Until Sneha 06/13/22 at 0005, Routine, Pain (scale 4-6) [facility] FENTanyl PF (SUBLIMAZE (PF)) injection 50 mcg 2021-08 05:58: 16 06-11 12:52 :20 No 50ug 50 mcg, Slow IV Push, Q4HPRN, Starting on Fri06/10/22 at 2358, Until Fri06/11/22 at 0652, Routine, Pain (scale 7-10) [facility] NaCl 0.9% (NS) IV infusion 1,000 mL 2021-08 04:30: 00 Yes 1000mL at 100 mL/hr, IV Infusion, CONTINUOUS , Starting on Fri06/10/22 at 2230, Until Discontinu ed, Routine [facility] NaCl 0.9% (NS) bolus infusion 1,500 mL 2021-08 03:45: 00 06-11 03:33 :01 No 1500mL at 999 mL/hr, 1,500 mL, IV Infusion, ONCE, 1 dose, On Fri06/10/22 at 2145, KUNAL [facility] ondansetron (ZOFRAN (PF)) injection 4 mg 2021-08 03:17: 24 06-11 06:07 :04 No 4mg 4 mg, Slow IV Push, Q6HPRN, Starting on Fri06/10/22 at 2117, Until Fri06/11/22 at 0007, KUNAL, Nausea and Vomiting (N/V) [facility] metoclopram raven HCl (REGLAN) injection 10 mg 2021-08 03:17: 15 06-11 21:27 :54 No 10mg 10 mg, Slow IV Push, TIDPRN, Starting on Fri06/10/22 at 2117, Until Fri06/11/22 at 1527, Routine, Nausea and Vomiting (N/V) [facility] morpHINE (4 mg/mL) injection 4 mg 2021-08 03:16: 49 06-11 05:58 :48 No 4mg 4 mg, Slow IV Push, Q4HPRN, Starting on Fri06/10/22 at 2116, Until Fri06/10/22 at 2358, Routine, Pain (scale 7-10) [facility] oxybutynin 10 mg 24 hr tablet 2021-08 00:05: 07 06-11 00:00 :00 No oxybutynin chloride ER 10 mg tablet,ext ended release 24 hr [facility] semaglutide (OZEMPIC) 0.25 mg or 0.5 mg(2 mg/1.5 mL) PnIj 2021-08 00:05: 06-11 00:00 :00 No .25mg 0.25 mg. [facility] semaglutide , weight loss, (WEGOVY) 0.25 mg/0.5 mL PnIj SC injection 2021-08 00:05: 07 06-11 00:00 :00 No Wegovy 0.25 mg/0.5 mL subcutaneo us pen injector 0.25 mg SC qwk x4wk, then 0.5 mg SC qwk x4wk, then 1 mg SC qwk x4wk, then 1.7 mg SC qwk x4wk, then 2.4 mg SC qwk [facility] clindamycin 300 mg capsule 2021-08 00:05: 06-11 00:00 :00 No clindamyci n HCl 300 mg capsule Take 1 capsule 3 times a day by oral route for 10 days. [facility] NaCl 0.9% (NS) bolus infusion 500 mL 2021-08 00:00: 00 06-11 00:17 :00 No 500mL at 999 mL/hr, 500 mL, IV Infusion, ONCE, 1 dose, On Fri06/10/22 at 1800, STAT [facility] proMETHazin e (PHENERGAN) 25 mg in NaCl 0.9% (NS) 50 mL IV piggyback 2021-08 00:00: 00 06-11 00:06 :00 No 25mg 25 mg, IV Piggyback, ONCE, 1 dose, [facility] Fri06/10/22 at 1800[facility] 4 mg 2021-08 23:15: 00 06-10 22:25 :00 No 4mg 4 mg, Slow IV Push, ONCE, 1 dose, On Fri06/10/22 at 1715, [facility] morpHINE (4 mg/mL) injection 4 mg 2021-08 22:15: 00 06-10 21:21 :00 No 4mg 4 mg, Slow IV Push, ONCE, 1 dose, On Fri06/10/22 at 1615, STAT [facility] cefTRIAXone (ROCEPHIN) 1,000 mg in NaCl 0.9% (NS) 50 mL MINI-BAG 2021-08 20:15: 00 06-10 20:51 :00 No 1000mg 1,000 mg, IV Piggyback, ONCE, 1 dose, On Fri06/10/22 at 1415, Administer over 30 Minutes, 50 mL
Reas on for Anti-Infec tive: Documented Infection< br>Documen billy Infection Site: Urine
D uration of Therapy: 7 days [facility] ketorolac (TORADOL) injection 30 mg 2021-08 20:00: 00 06-10 19:01 :00 No 30mg 30 mg, Slow IV Push, ONCE, 1 dose, On Fri06/10/22 at 1400, Routine [facility] morpHINE (4 mg/mL) injection 4 mg 2021-08 19:30: 00 06-10 19:29 :00 No 4mg 4 mg, Slow IV Push, ONCE, 1 dose, On Fri06/10/22 at 1330, STAT [facility] ondansetron (ZOFRAN (PF)) injection 4 mg 2021-08 19:30: 00 06-10 19:29 :00 No 4mg 4 mg, Slow IV Push, ONCE, 1 dose, On Fri06/10/22 at 1330, KUNAL [facility] FENTanyl PF (SUBLIMAZE (PF)) injection 50 mcg 2021-08 18:01: 00 06-10 18:02 :00 No 50ug 50 mcg, Slow IV Push, ONCE, 1 dose, On Fri06/10/22 at 1215, Routine [facility] cefpodoxime 100 mg tablet 2021-08 00:00: 00 06-12 00:00 :00 No [id number] 100mg Take 1 tablet by mouth in the morning and 1 tablet in the evening. Do all this for 7 days. [facility] amitriptyli ne 150 mg tablet 01-14 09:33: 45 Yes amitriptyl ine 150 mg tablet Take 1 tablet every day by oral route for 30 days. [facility] Fesoterodin e (TOVIAZ) 4 mg tablet 01-14 09:33: 45 Yes Toviaz 4 mg tablet,ext ended release [facility] oxybutynin 10 mg 24 hr tablet 01-14 09:33: 45 Yes oxybutynin chloride ER 10 mg tablet,ext ended release 24 hr [facility] semaglutide (OZEMPIC) 0.25 mg or 0.5 mg(2 mg/1.5 mL) PnIj 01-14 09:33: 45 Yes .25mg 0.25 mg. [facility] semaglutide , weight loss, (WEGOVY) 0.25 mg/0.5 mL PnIj SC injection 01-14 09:33: 45 Yes Wegovy 0.25 mg/0.5 mL subcutaneo us pen injector 0.25 mg SC qwk x4wk, then 0.5 mg SC qwk x4wk, then 1 mg SC qwk x4wk, then 1.7 mg SC qwk x4wk, then 2.4 mg SC qwk [facility] clindamycin 300 mg capsule 01-14 09:33: 45 Yes clindamyci n HCl 300 mg capsule Take 1 capsule 3 times a day by oral route for 10 days. [facility] DULoxetine 60 mg capsule 01-14 09:33: 45 Yes 60mg Take 60 mg by mouth daily. [facility] gabapentin 100 mg capsule 11-29 00:00: 00 Yes 100mg Take 1 capsule by mouth in the morning and 1 capsule in the evening. [facility] gabapentin 100 mg capsule 11-29 00:00: 00 Yes 800mg Take 8 capsules by mouth in the morning and 8 capsules at noon and 8 capsules in the evening. [facility] lidocaine-p rilocaine 2.5-2.5 % cream 10-01 00:00: 00 Yes APPLY TO AFFECTED AREA EVERY DAY NEEDED [facility] eszopiclone 1 mg tablet 10-01 00:00: 00 09-17 00:00 :00 No 1mg Take 1 mg by mouth daily. [facility] methylPREDN ISolone (MEDROL, LUNA,) 4 mg tablets 09-24 00:00: 00 Yes [id number] 84mg Take 21 tablets by mouth SEE-INSTRU CTIONS. follow package directions [facility] methylPREDN ISolone (MEDROL, LUNA,) 4 mg tablets 2020-08 0 00:00: 00 Yes [id number] 84mg Take 21 tablets by mouth SEE-INSTRU CTIONS. follow package directions [facility] methocarbam ol (Robaxin) 750 MG tablet 12-18 00:00: 00 12-29 04:59 :00 No [id number] 750mg [id number] 3D Take 1 tablet (750 mg total) by mouth 3 (three) times a day if needed for muscle spasms for up to 10 days. [facility] metFORMIN (Glucophage ) 1000 MG tablet 12-14 00:00: 00 Yes [facility] benzonatate 100 mg capsule 01-25 00:00: 00 Yes [id number] 100mg Take 1 capsule by mouth 3 (three) times daily as needed for Cough. [facility] chlorphenir amine 4 mg tablet 01-25 00:00: 00 Yes [id number] 4mg Take 1 tablet by mouth every 6 (six) hours as needed for Allergies or Runny nose. [facility] LIDOCAINE HCL 10MG/ML LIDOCAINE HCL 10MG/ML 01-19 00:00: 00 No .5mL [facility] Depo-Medrol (Methylpred nisolone) 40mg Depo-Medrol (Methylpred nisolone) 40mg 01-19 00:00: 00 No .5mL [facility] loratadine 10 mg tablet 03-03 00:00: 00 Yes 10mg Take 1 tablet by mouth in the morning. [facility] metFORMIN 1,000 mg tablet 7-07 00:00: 00 09-17 00:00 :00 No TAKE 1 TABLET BY MOUTH TWICE A DAY NEEDED WITH MORNING AND EVENING MEAL [facility] famotidine 40 mg tablet 2-20 00:00: 00 09-17 00:00 :00 No 40mg Take 1 tablet by mouth daily. [facility] Xigduo XR 10-500 MG Xigduo XR [...] Quad IM 3+ YRS 2021-06-24 00:00:00 Completed [facility] Influenza Virus Vaccine Quad IM 3+ YRS 2021-06-24 00:00:00 Completed [facility] Influenza Virus Vaccine Quad IM 3+ YRS 2021-06-24 00:00:00 Completed [facility] Influenza Virus Vaccine Quad IM 3+ YRS 2021-06-24 00:00:00 Completed [facility] Influenza Virus Vaccine Quad IM 3+ YRS 2021-06-24 00:00:00 Completed [facility] Influenza Virus Vaccine Quad IM 3+ YRS 2021-06-24 00:00:00 Completed [facility] Influenza Virus Vaccine Quad IM 3+ YRS 2021-06-24 00:00:00 Completed [facility] Influenza Virus Vaccine Quad IM 3+ YRS 2021-06-24 00:00:00 Completed [facility] Influenza Virus Vaccine Quad IM 3+ YRS 2021-06-24 00:00:00 Completed [facility] Influenza Virus Vaccine Quad IM 3+ YRS 2021-06-24 00:00:00 Completed [facility] Influenza Virus Vaccine Quad IM 3+ YRS 2021-06-24 00:00:00 Completed [facility] Influenza Virus Vaccine Quad IM 3+ YRS 2021-06-24 00:00:00 Completed [facility] Influenza Virus Vaccine Quad IM 3+ YRS 2021-06-24 00:00:00 Completed [facility] Influenza Virus Vaccine Quad IM 3+ YRS 2021-06-24 00:00:00 Completed [facility] Influenza Virus Vaccine Quad IM 3+ YRS 2021-06-24 00:00:00 Completed [facility] Influenza Virus Vaccine Quad IM 3+ YRS 2021-06-24 00:00:00 Completed [facility] Influenza Virus Vaccine Quad IM 3+ YRS 2021-06-24 00:00:00 Completed [facility] Influenza Virus Vaccine Quad IM 3+ YRS 2021-06-24 00:00:00 Completed [facility] Influenza Virus Vaccine Quad IM 3+ YRS 2021-06-24 00:00:00 Completed [facility] Influenza Virus Vaccine Quad IM 3+ YRS 2021-06-24 00:00:00 Completed [facility] SARS-COV-2 COVID-19 PFIZER VACCINE 2021-04-23 00:00:00 Completed [facility] SARS-COV-2 COVID-19 ALY/J&J VACCINE 2021-04-23 00:00:00 Completed [facility] SARS-COV-2 COVID-19 PFIZER VACCINE 2021-04-23 00:00:00 Completed [facility] SARS-COV-2 COVID-19 ALY/J&J VACCINE 2021-04-23 00:00:00 Completed [facility] SARS-COV-2 COVID-19 PFIZER VACCINE 2021-04-23 00:00:00 Completed [facility] SARS-COV-2 COVID-19 ALY/J&J VACCINE 2021-04-23 00:00:00 Completed [facility] SARS-COV-2 COVID-19 PFIZER VACCINE 2021-04-23 00:00:00 Completed [facility] SARS-COV-2 COVID-19 ALY/J&J VACCINE 2021-04-23 00:00:00 Completed [facility] SARS-COV-2 COVID-19 PFIZER VACCINE 2021-04-23 00:00:00 Completed [facility] SARS-COV-2 COVID-19 ALY/J&J VACCINE 2021-04-23 00:00:00 Completed [facility] SARS-COV-2 COVID-19 PFIZER VACCINE 2021-04-23 00:00:00 Completed [facility] SARS-COV-2 COVID-19 ALY/J&J VACCINE 2021-04-23 00:00:00 Completed [facility] SARS-COV-2 COVID-19 PFIZER VACCINE 2021-04-23 00:00:00 Completed [facility] SARS-COV-2 COVID-19 ALY/J&J VACCINE 2021-04-23 00:00:00 Completed [facility] SARS-COV-2 COVID-19 PFIZER VACCINE 2021-04-23 00:00:00 Completed [facility] SARS-COV-2 COVID-19 ALY/J&J VACCINE 2021-04-23 00:00:00 Completed [facility] SARS-COV-2 COVID-19 PFIZER VACCINE 2021-04-23 00:00:00 Completed [facility] SARS-COV-2 COVID-19 ALY/J&J VACCINE 2021-04-23 00:00:00 Completed [facility] SARS-COV-2 COVID-19 PFIZER VACCINE 2021-04-23 00:00:00 Completed [facility] SARS-COV-2 COVID-19 ALY/J&J VACCINE 2021-04-23 00:00:00 Completed [facility] SARS-COV-2 COVID-19 PFIZER VACCINE 2021-04-23 00:00:00 Completed [facility] SARS-COV-2 COVID-19 ALY/J&J VACCINE 2021-04-23 00:00:00 Completed [facility] SARS-COV-2 COVID-19 PFIZER VACCINE 2021-04-23 00:00:00 Completed [facility] SARS-COV-2 COVID-19 ALY/J&J VACCINE 2021-04-23 00:00:00 Completed [facility] SARS-COV-2 COVID-19 PFIZER VACCINE 2021-04-23 00:00:00 Completed [facility] SARS-COV-2 COVID-19 ALY/J&J VACCINE 2021-04-23 00:00:00 Completed [facility] SARS-COV-2 COVID-19 PFIZER VACCINE 2021-04-23 00:00:00 Completed [facility] SARS-COV-2 COVID-19 ALY/J&J VACCINE 2021-04-23 00:00:00 Completed [facility] SARS-COV-2 COVID-19 PFIZER VACCINE 2021-04-23 00:00:00 Completed [facility] SARS-COV-2 COVID-19 ALY/J&J VACCINE 2021-04-23 00:00:00 Completed [facility] SARS-COV-2 COVID-19 PFIZER VACCINE 2021-04-23 00:00:00 Completed [facility] SARS-COV-2 COVID-19 ALY/J&J VACCINE 2021-04-23 00:00:00 Completed [facility] SARS-COV-2 COVID-19 PFIZER VACCINE 2021-04-23 00:00:00 Completed [facility] SARS-COV-2 COVID-19 ALY/J&J VACCINE 2021-04-23 00:00:00 Completed [facility] SARS-COV-2 COVID-19 PFIZER VACCINE 2021-04-23 00:00:00 Completed [facility] SARS-COV-2 COVID-19 ALY/J&J VACCINE 2021-04-23 00:00:00 Completed [facility] SARS-COV-2 COVID-19 PFIZER VACCINE 2021-04-23 00:00:00 Completed [facility] SARS-COV-2 COVID-19 ALY/J&J VACCINE 2021-04-23 00:00:00 Completed [facility] SARS-COV-2 COVID-19 PFIZER VACCINE 2021-04-23 00:00:00 Completed [facility] SARS-COV-2 COVID-19 ALY/J&J VACCINE 2021-04-23 00:00:00 Completed [facility] SARS-COV-2 COVID-19 PFIZER VACCINE 2021-04-23 00:00:00 Completed [facility] SARS-COV-2 COVID-19 ALY/J&J VACCINE 2021-04-23 00:00:00 Completed [facility] SARS-COV-2 COVID-19 PFIZER VACCINE 2021-04-02 00:00:00 Completed [facility] SARS-COV-2 COVID-19 ALY/J&J VACCINE 2021-04-02 00:00:00 Completed [facility] SARS-COV-2 COVID-19 PFIZER VACCINE 2021-04-02 00:00:00 Completed [facility] SARS-COV-2 COVID-19 ALY/J&J VACCINE 2021-04-02 00:00:00 Completed [facility] SARS-COV-2 COVID-19 PFIZER VACCINE 2021-04-02 00:00:00 Completed [facility] SARS-COV-2 COVID-19 ALY/J&J VACCINE 2021-04-02 00:00:00 Completed [facility] SARS-COV-2 COVID-19 PFIZER VACCINE 2021-04-02 00:00:00 Completed [facility] SARS-COV-2 COVID-19 ALY/J&J VACCINE 2021-04-02 00:00:00 Completed [facility] SARS-COV-2 COVID-19 PFIZER VACCINE 2021-04-02 00:00:00 Completed [facility] SARS-COV-2 COVID-19 ALY/J&J VACCINE 2021-04-02 00:00:00 Completed [facility] SARS-COV-2 COVID-19 PFIZER VACCINE 2021-04-02 00:00:00 Completed [facility] SARS-COV-2 COVID-19 ALY/J&J VACCINE 2021-04-02 00:00:00 Completed [facility] SARS-COV-2 COVID-19 PFIZER VACCINE 2021-04-02 00:00:00 Completed [facility] SARS-COV-2 COVID-19 ALY/J&J VACCINE 2021-04-02 00:00:00 Completed [facility] SARS-COV-2 COVID-19 PFIZER VACCINE 2021-04-02 00:00:00 Completed [facility] SARS-COV-2 COVID-19 ALY/J&J VACCINE 2021-04-02 00:00:00 Completed [facility] SARS-COV-2 COVID-19 PFIZER VACCINE 2021-04-02 00:00:00 Completed [facility] SARS-COV-2 COVID-19 ALY/J&J VACCINE 2021-04-02 00:00:00 Completed [facility] SARS-COV-2 COVID-19 PFIZER VACCINE 2021-04-02 00:00:00 Completed [facility] SARS-COV-2 COVID-19 ALY/J&J VACCINE 2021-04-02 00:00:00 Completed [facility] SARS-COV-2 COVID-19 PFIZER VACCINE 2021-04-02 00:00:00 Completed [facility] SARS-COV-2 COVID-19 ALY/J&J VACCINE 2021-04-02 00:00:00 Completed [facility] SARS-COV-2 COVID-19 PFIZER VACCINE 2021-04-02 00:00:00 Completed [facility] SARS-COV-2 COVID-19 ALY/J&J VACCINE 2021-04-02 00:00:00 Completed [facility] SARS-COV-2 COVID-19 PFIZER VACCINE 2021-04-02 00:00:00 Completed [facility] SARS-COV-2 COVID-19 ALY/J&J VACCINE 2021-04-02 00:00:00 Completed [facility] SARS-COV-2 COVID-19 PFIZER VACCINE 2021-04-02 00:00:00 Completed [facility] SARS-COV-2 COVID-19 ALY/J&J VACCINE 2021-04-02 00:00:00 Completed [facility] SARS-COV-2 COVID-19 PFIZER VACCINE 2021-04-02 00:00:00 Completed [facility] SARS-COV-2 COVID-19 ALY/J&J VACCINE 2021-04-02 00:00:00 Completed [facility] SARS-COV-2 COVID-19 PFIZER VACCINE 2021-04-02 00:00:00 Completed [facility] SARS-COV-2 COVID-19 ALY/J&J VACCINE 2021-04-02 00:00:00 Completed [facility] SARS-COV-2 COVID-19 PFIZER VACCINE 2021-04-02 00:00:00 Completed [facility] SARS-COV-2 COVID-19 ALY/J&J VACCINE 2021-04-02 00:00:00 Completed [facility] SARS-COV-2 COVID-19 PFIZER VACCINE 2021-04-02 00:00:00 Completed [facility] SARS-COV-2 COVID-19 ALY/J&J VACCINE 2021-04-02 00:00:00 Completed [facility] SARS-COV-2 COVID-19 PFIZER VACCINE 2021-04-02 00:00:00 Completed [facility] SARS-COV-2 COVID-19 ALY/J&J VACCINE 2021-04-02 00:00:00 Completed [facility] SARS-COV-2 COVID-19 PFIZER VACCINE 2021-04-02 00:00:00 Completed [facility] SARS-COV-2 COVID-19 ALY/J&J VACCINE 2021-04-02 00:00:00 Completed [facility] SARS-COV-2 COVID-19 PFIZER VACCINE 2021-04-02 00:00:00 Completed [facility] SARS-COV-2 COVID-19 ALY/J&J VACCINE 2021-04-02 00:00:00 Completed [facility] Influenza Virus Vaccine Quad IM 3+ YRS 2020-05-12 00:00:00 Completed [facility] Influenza Virus Vaccine Quad IM 3+ YRS 2020-05-12 00:00:00 Completed [facility] Influenza Virus Vaccine Quad IM 3+ YRS 2020-05-12 00:00:00 Completed [facility] Influenza Virus Vaccine Quad IM 3+ YRS 2020-05-12 00:00:00 Completed [facility] Influenza Virus Vaccine Quad IM 3+ YRS 2020-05-12 00:00:00 Completed [facility] Influenza Virus Vaccine Quad IM 3+ 2020-05-12 00:00:00 Completed [facility] Influenza Virus Vaccine Quad IM 3+ 2020-05-12 00:00:00 Completed [facility] Influenza Virus Vaccine Quad IM 3+ 2020-05-12 00:00:00 Completed [facility] Influenza Virus Vaccine Quad IM 3+ 2020-05-12 00:00:00 Completed [facility] Influenza Virus Vaccine Quad IM 3+ 2020-05-12 00:00:00 Completed [facility] Influenza Virus Vaccine Quad IM 3+ YRS 2020-05-12 00:00:00 Completed [facility] Influenza Virus Vaccine Quad IM 3+ 2020-05-12 00:00:00 Completed [facility] Influenza Virus Vaccine Quad IM 3+ 2020-05-12 00:00:00 Completed [facility] Influenza Virus Vaccine Quad IM 2020-05-12 00:00:00 Completed [facility] Influenza Virus Vaccine Quad IM 2020-05-12 00:00:00 Completed [facility] Influenza Virus Vaccine Quad IM 32020-05-12 00:00:00 Completed [facility] Influenza Virus Vaccine Quad IM 32020-05-12 00:00:00 Completed [facility] Influenza Virus Vaccine Quad IM 3+ 2020-05-12 00:00:00 Completed [facility] Influenza Virus Vaccine Quad IM 3+ 2020-05-12 00:00:00 Completed [facility] Influenza Virus Vaccine Quad IM 3+ 2020-05-12 00:00:00 Completed [facility] Influenza Virus Vaccine Quad IM 3+ 2020-05-12 00:00:00 Completed [facility] LIDOCAINE HCL 10MG/ML LIDOCAINE HCL 10MG/ML 2020-01-20 08:45:00 Completed [facility] Depo-Medrol (Methylprednisolone ) 40mg Depo-Medrol (Methylprednisolon e) 40mg 2020-01-20 08:44:00 Completed [facility] Depo-Medrol (Methylprednisolone ) 40mg Depo-Medrol (Methylprednisolon e) 40mg 2020-01-20 08:43:00 Completed [facility] Influenza Virus Vaccine Quad IM 3+ YRS 2019-09-13 00:00:00 Completed [facility] Influenza Virus Vaccine Quad IM 3+ YRS 2019-09-13 00:00:00 Completed [facility] Influenza Virus Vaccine Quad IM 3+ YRS 2019-09-13 00:00:00 Completed [facility] Influenza Virus Vaccine Quad IM 3+ YRS 2019-09-13 00:00:00 Completed [facility] Influenza Virus Vaccine Quad IM 3+ YRS 2019-09-13 00:00:00 Completed [facility] Influenza Virus Vaccine Quad IM 3+ YRS 2019-09-13 00:00:00 Completed [facility] Influenza Virus Vaccine Quad IM 3+ YRS 2019-09-13 00:00:00 Completed [facility] Influenza Virus Vaccine Quad IM 3+ YRS 2019-09-13 00:00:00 Completed [facility] Influenza Virus Vaccine Quad IM 3+ YRS 2019-09-13 00:00:00 Completed [facility] Influenza Virus Vaccine Quad IM 3+ YRS 2019-09-13 00:00:00 Completed [facility] Influenza Virus Vaccine Quad IM 3+ YRS 2019-09-13 00:00:00 Completed [facility] Influenza Virus Vaccine Quad IM 3+ YRS 2019-09-13 00:00:00 Completed [facility] Influenza Virus Vaccine Quad IM 3+ YRS 2019-09-13 00:00:00 Completed [facility] Influenza Virus Vaccine Quad IM 3+ YRS 2019-09-13 00:00:00 Completed [facility] Influenza Virus Vaccine Quad IM 3+ YRS 2019-09-13 00:00:00 Completed [facility] Influenza Virus Vaccine Quad IM 3+ YRS 2019-09-13 00:00:00 Completed [facility] Influenza Virus Vaccine Quad IM 3+ YRS 2019-09-13 00:00:00 Completed [facility] Influenza Virus Vaccine Quad IM 3+ YRS 2019-09-13 00:00:00 Completed [facility] Influenza Virus Vaccine Quad IM 3+ YRS 2019-09-13 00:00:00 Completed [facility] Influenza Virus Vaccine Quad IM 3+ YRS 2019-09-13 00:00:00 Completed [facility] Influenza Virus Vaccine Quad IM 3+ YRS 2019-09-13 00:00:00 Completed [facility] SARS-COV-2 COVID-19 PFIZER VACCINE Unknown Completed [facility] SARS-COV-2 COVID-19 ALY/J&J VACCINE Unknown Completed [facility] Influenza Virus Vaccine Quad IM 3+ YRS Unknown Completed [facility] SARS-COV-2 COVID-19 PFIZER VACCINE Unknown Completed [facility] SARS-COV-2 COVID-19 ALY/J&J VACCINE Unknown Completed [facility] Influenza Virus Vaccine Quad IM 3+ YRS Unknown Completed [facility] SARS-COV-2 COVID-19 PFIZER VACCINE Unknown Completed [facility] SARS-COV-2 COVID-19 ALY/J&J VACCINE Unknown Completed [facility] Influenza Virus Vaccine Quad IM 3+ YRS Unknown Completed [facility] SARS-COV-2 COVID-19 PFIZER VACCINE Unknown Completed [facility] SARS-COV-2 COVID-19 ALY/J&J VACCINE Unknown Completed [facility] Influenza Virus Vaccine Quad IM 3+ YRS Unknown Completed [facility] Vital Signs Vital Name Observation Time Observation Value Comments S ource height 2023-12-17 09:00:00 61.5 [in_i] Comm on [facility] weight 2023-12-17 09:00:00 213 [lb_av] Comm on [facility] temperature 2023-12-17 09:00:00 97.6 [degF] Com mon [facility] bmi 2023-12-17 09:00:00 39.59 kg/m2 Comm on [facility] blood pressure systolic 2023-12-17 09:00:00 126 mm[Hg] [facility] blood pressure diastolic 2023-12-17 09:00:00 78 mm[Hg] [facility] height 2023-11-28 08:00:00 61.5 [in_i] Comm on [facility] weight 2023-11-28 08:00:00 212 [lb_av] Comm on [facility] temperature 2023-11-28 08:00:00 97.4 [degF] Com mon [facility] bmi 2023-11-28 08:00:00 39.4 kg/m2 Commo n [facility] blood pressure systolic 2023-11-28 08:00:00 124 mm[Hg] [facility] blood pressure diastolic 2023-11-28 08:00:00 81 mm[Hg] [facility] height 2023-09-18 14:30:00 61.5 [in_i] Comm on [facility] weight 2023-09-18 14:30:00 217.6 [lb_av] Co [facility] temperature 2023-09-18 14:30:00 97.9 [degF] Com [facility] bmi 2023-09-18 14:30:00 40.44 kg/m2 Comm [facility] blood pressure systolic 2023-09-18 14:30:00 128 mm[Hg] Common [facility] blood pressure diastolic 2023-09-18 14:30:00 83 mm[Hg] Common [facility] Systolic blood pressure 2023-08-30 17:41:00 129 mm[Hg] [facility] Diastolic blood pressure 2023-08-30 17:41:00 73 mm[Hg] [facility] Heart rate 2023-08-30 17:41:00 93 /min [facility] Body temperature 2023-08-30 17:41:00 36.67 Vika [facility] Respiratory rate 2023-08-30 17:41:00 18 /min [facility] Oxygen saturation in Arterial blood by Pulse oximetry 2023-08-30 17:41:00 97 /min [facility] Body height 2023-08-30 01:53:00 157.5 cm [facility] Body weight 2023-08-30 01:53:00 103.42 kg [facility] BMI 2023-08-30 01:53:00 41.70 kg/m2 [facility] height 2023-05-23 10:30:00 61.5 [in_i] Comm [facility] weight 2023-05-23 10:30:00 225 [lb_av] Comm [facility] temperature 2023-05-23 10:30:00 98.1 [degF] Com [facility] bmi 2023-05-23 10:30:00 41.82 kg/m2 Comm on [facility] blood pressure systolic 2023-05-23 10:30:00 131 mm[Hg] [facility] blood pressure diastolic 2023-05-23 10:30:00 82 mm[Hg] Common [facility] height 2023-05-07 09:30:00 61.5 [in_i] Comm on [facility] weight 2023-05-07 09:30:00 227 [lb_av] [facility] on [facility] temperature 2023-05-07 09:30:00 97.6 [degF] Com [facility] bmi 2023-05-07 09:30:00 42.19 kg/m2 Comm on [facility] blood pressure systolic 2023-05-07 09:30:00 130 mm[Hg] Common [facility] blood pressure diastolic 2023-05-07 09:30:00 78 mm[Hg] [facility] height 2023-03-17 13:45:00 61.5 [in_i] Comm on [facility] weight 2023-03-17 13:45:00 220 [lb_av] Comm on [facility] temperature 2023-03-17 13:45:00 98.2 [degF] Com [facility] bmi 2023-03-17 13:45:00 40.89 kg/m2 Comm on [facility] blood pressure systolic 2023-03-17 13:45:00 132 mm[Hg] Common [facility] blood pressure diastolic 2023-03-17 13:45:00 84 mm[Hg] Common [facility] height 2023-01-13 08:45:00 61.5 [in_i] Comm on [facility] weight 2023-01-13 08:45:00 221 [lb_av] Comm on [facility] temperature 2023-01-13 08:45:00 97.9 [degF] Com [facility] bmi 2023-01-13 08:45:00 41.08 kg/m2 Comm on [facility] blood pressure systolic 2023-01-13 08:45:00 128 mm[Hg] Common [facility] blood pressure diastolic 2023-01-13 08:45:00 82 mm[Hg] Common [facility] height 2023-01-07 09:30:00 61.5 [in_i] Comm on [facility] weight 2023-01-07 09:30:00 221 [lb_av] [facility] temperature 2023-01-07 09:30:00 97.7 [degF] Com [facility] bmi 2023-01-07 09:30:00 41.08 kg/m2 Comm on [facility] blood pressure systolic 2023-01-07 09:30:00 134 mm[Hg] Common [facility] blood pressure diastolic 2023-01-07 09:30:00 80 mm[Hg] [facility] Systolic blood pressure 2022-12-27 14:00:00 120 mm[Hg] [facility] Diastolic blood pressure 2022-12-27 14:00:00 87 mm[Hg] [facility] Heart rate 2022-12-27 14:00:00 102 /min [facility] Body height 2022-12-27 14:00:00 152.4 cm [facility] Body weight 2022-12-27 14:00:00 101.696 kg [facility] BMI 2022-12-27 14:00:00 43.79 kg/m2 [facility] Oxygen saturation in Arterial blood by Pulse oximetry 2022-12-27 14:00:00 98 /min [facility] Systolic blood pressure 2022-09-23 14:42:00 141 mm[Hg] [facility] Diastolic blood pressure 2022-09-23 14:42:00 74 mm[Hg] [facility] Heart rate 2022-09-23 14:42:00 76 /min [facility] Respiratory rate 2022-09-23 14:42:00 8 /min [facility] Oxygen saturation in Arterial blood by Pulse oximetry 2022-09-23 14:42:00 100 /min [facility] Body temperature 2022-09-23 14:07:00 36.5 Vika [facility] Body height 2022-09-17 19:30:00 154.9 cm [facility] Body weight 2022-09-17 19:30:00 113.399 kg [facility] BMI 2022-09-17 19:30:00 47.24 kg/m2 [facility] Systolic blood pressure 2022-09-23 12:46:00 144 mm[Hg] [facility] Diastolic blood pressure 2022-09-23 12:46:00 68 mm[Hg] [facility] Heart rate 2022-09-23 12:46:00 90 /min [facility] Body temperature 2022-09-23 12:46:00 36.56 Vika [facility] Respiratory rate 2022-09-23 12:46:00 17 /min [facility] Oxygen saturation in Arterial blood by Pulse oximetry 2022-09-23 12:46:00 95 /min [facility] Body height 2022-09-17 19:30:00 154.9 cm [facility] Body weight 2022-09-17 19:30:00 113.399 kg Univ [facility] BMI 2022-09-17 19:30:00 47.24 kg/m2 [facility] Systolic blood pressure 2022-09-19 16:02:00 125 mm[Hg] [facility] Diastolic blood pressure 2022-09-19 16:02:00 81 mm[Hg] [facility] Heart rate 2022-09-19 16:02:00 79 /min [facility] Body temperature 2022-09-19 16:02:00 36.94 Vika [facility] Respiratory rate 2022-09-19 16:02:00 18 /min [facility] Body height 2022-09-19 16:02:00 154.9 cm Univ [facility] Body weight 2022-09-19 16:02:00 104.327 kg Univ [facility] BMI 2022-09-19 16:02:00 43.46 kg/m2 Univ [facility] Oxygen saturation in Arterial blood by Pulse oximetry 2022-09-19 16:02:00 98 /min [facility] Body weight 2022-09-10 21:39:00 113.399 kg Univ [facility] BMI 2022-09-10 21:39:00 47.24 kg/m2 Univ [facility] Systolic blood pressure 2022-06-12 18:06:00 155 mm[Hg] [facility] Diastolic blood pressure 2022-06-12 18:06:00 84 mm[Hg] [facility] Heart rate 2022-06-12 18:06:00 90 /min [facility] Body temperature 2022-06-12 18:06:00 36 Vika [facility] Respiratory rate 2022-06-12 18:06:00 18 /min [facility] Oxygen saturation in Arterial blood by Pulse oximetry 2022-06-12 18:06:00 94 /min [facility] Body weight 2022-06-11 09:20:00 113.49 kg Univ [facility] BMI 2022-06-11 09:20:00 47.27 kg/m2 Univ [facility] Body height 2022-06-11 01:52:00 154.9 cm Univ [facility] Systolic blood pressure 2022-04-19 13:32:00 127 mm[Hg] Nisswa o [facility] Diastolic blood pressure 2022-04-19 13:32:00 67 mm[Hg] Nisswa o [facility] Heart rate 2022-04-19 13:32:00 88 /min [facility] Body height 2022-04-19 13:32:00 154.9 cm [facility] Body weight 2022-04-19 13:32:00 117.028 kg [facility] BMI 2022-04-19 13:32:00 48.75 kg/m2 [facility] Body height 2020-12-18 16:17:00 157.5 cm [...] POCT GLUCOSE (AUTOMATED) 2023-08-30 18:30:00 Jarred Barker [facility] POCT GLUCOSE (AUTOMATED) 2023-08-30 13:51:00 [facility] TROPONIN I 2023-08-30 09:22:00 Malgorzata Santos [facility] GLYCOSYLATED HEMOGLOBIN (A1C) 2023-08-30 04:51:00 Annamaria Barker [facility] TROPONIN I 2023-08-30 04:50:00 Malgorzata Santos [facility] POCT GLUCOSE (AUTOMATED) 2023-08-30 02:21:00 Jarred Barker [facility] URINE DRUG (IMMUNOASSAY) - COMPREHENSIVE DRUG SCREEN W/O REFLEX 2023-08-30 00:00:00 Marylou Driver [facility] CT ABDOMEN PELVIS W CONTRAST 2023-08-29 23:18:33 Marylou Driver [facility] CT CHEST PULMONARY ANGIOGRAM 2023-08-29 19:11:03 Marylou Driver [facility] URINALYSIS 2023-08-29 17:44:00 Marylou Driver [facility] XR CHEST 1 VW 2023-08-29 17:05:57 Marylou Driver [facility] LIPASE 2023-08-29 16:43:00 Marylou Driver [facility] MAGNESIUM 2023-08-29 16:43:00 Marylou Driver [facility] TROPONIN I 2023-08-29 16:43:00 Marylou Driver [facility] COMP. METABOLIC PANEL (60359) 2023-08-29 16:43:00 Marylou Driver [facility] CBC WITH DIFF 2023-08-29 16:43:00 Marylou Driver [facility] D-DIMER 2023-08-29 16:43:00 Marylou Driver [facility] HB ECG ROUTINE & RHYTHM STRIP 2023-08-29 16:32:22 Marylou Driver [facility] EXTERNAL PROVIDER - ADC CARDIOLOGY 2022-12-31 05:01:00 Doctor Unassigned, [place] [facility] EXTERNAL PROVIDER - ADC REFERRAL 2022-12-20 05:01:00 Doctor Unassigned, [place] [facility] FL TIME OR (NON-REPORTABLE) 2022-09-23 14:53:25 Kayla Lutz [facility] FL TIME OR (NON-REPORTABLE) 2022-09-23 14:53:25 Kayla Lutz [facility] MAJOR JOINT INJECTION 2022-09-23 13:32:00 Inderjit Lutz [facility] POCT GLUCOSE (AUTOMATED) 2022-09-23 12:50:00 Kayla Lutz [facility] POCT GLUCOSE (AUTOMATED) 2022-09-23 12:50:00 Kayla Lutz [facility] HB ABO GROUPING 2022-09-23 12:45:00 Kayla Lutz [facility] HB ABO GROUPING 2022-09-23 12:45:00 Kayla Lutz [facility] DAY SURGERY - ADC 2022-09-23 06:01:00 Doctor Rena ssigned, [place] [facility] TROPONIN I 2022-09-19 15:38:00 RushingPedro Luis [facility] XR CHEST 2 VW 2022-09-19 14:38:32 Kayla Lutz Un [facility] ASSIGNMENT OF BENEFITS 2022-09-19 14:20:21 Docto r Unassigned, [place] [facility] EXTERNAL PROVIDER RECORDS 2022-09-17 06:01:00 Doctor Unassigned, [place] [facility] ASSIGNMENT OF BENEFITS 2022-09-10 21:32:35 Docto r Unassigned, [place] [facility] POCT GLUCOSE (AUTOMATED) 2022-06-12 18:08:00 Jarred Barker [facility] BASIC METABOLIC PANEL (NA, K, CL, CO2, GLUCOSE, BUN, CREATININE, CA) 2022-06-12 09:27:00 Jimmy Rowland [facility] CBC WITH DIFF 2022-06-12 09:27:00 Jimmy Rowland Un [facility] POCT GLUCOSE (AUTOMATED) 2022-06-12 07:56:00 aJrred Barker [facility] POCT GLUCOSE (AUTOMATED) 2022-06-12 01:45:00 Jarred Barker [facility] POCT GLUCOSE (AUTOMATED) 2022-06-11 22:56:00 Jarred Barker [facility] POCT GLUCOSE (AUTOMATED) 2022-06-11 18:11:00 [facility] POCT GLUCOSE (AUTOMATED) 2022-06-11 14:05:00 Jarred Barker [facility] PHOSPHORUS 2022-06-11 10:40:00 Robbi Muro [facility] CREATINE KINASE 2022-06-11 10:40:00 Robbi Muro [facility] AMYLASE 2022-06-11 10:40:00 Robbi Muro [facility] LIPASE 2022-06-11 10:40:00 [facility] MAGNESIUM 2022-06-11 10:40:00 Robbi Muro [facility] COMP. METABOLIC PANEL (55875) 2022-06-11 10:40:00 Robbi Muro [facility] CBC WITH DIFF 2022-06-11 10:40:00 Robbi Muro [facility] GLYCOSYLATED HEMOGLOBIN (A1C) 2022-06-11 10:40:00 Jimmy Rowland [facility] N-TERMINAL PRO-BNP 2022-06-11 10:40:00 Robbi Muro [facility] POCT GLUCOSE (AUTOMATED) 2022-06-11 07:56:00 Jarred Barker [facility] URINE CULTURE 2022-06-11 05:18:00 Robbi Muro [facility] PROTHROMBIN TIME / INR 2022-06-11 03:24:00 Thang Muro [facility] LACTIC ACID WHOLE BLOOD 2022-06-11 03:18:00 Jory Muro [facility] C-REACTIVE PROTEIN 2022-06-11 03:17:00 Robbi Muro [facility] SEDIMENTATION RATE 2022-06-11 03:17:00 Robbi Muro [facility] PROCALCITONIN 2022-06-11 03:17:00 Robbi Muro [facility] US OVARY TORSION 2022-06-10 22:01:56 [facility] 2022-06-10 19:14:00 Brodie Clemons [facility] CT ABDOMEN PELVIS WO CONTRAST 2022-06-10 18:36:36 Brodie Clemons [facility] PHOSPHORUS 2022-06-10 17:54:00 Robbi Muro [facility] URIC ACID 2022-06-10 17:54:00 Robbi Muro [facility] LIPASE 2022-06-10 17:54:00 Brodie Clemons [facility] MAGNESIUM 2022-06-10 17:54:00 Robbi Muro [facility] FERRITIN SERUM 2022-06-10 17:54:00 Robbi Muro [facility] HEPATIC FUNCTION PANEL ([id number]) (ALB,T.PRO,BILI T,BU/BC,ALT,AST,ALK PHOS) 2022-06-10 17:54:00 Brodie Clemons [facility] BASIC METABOLIC PANEL (NA, K, CL, CO2, GLUCOSE, BUN, CREATININE, CA) 2022-06-10 17:54:00 Brodie Clemons [facility] IRON PANEL 2022-06-10 17:54:00 Robbi Muro [facility] CBC WITH DIFF 2022-06-10 17:54:00 Brodie Clemons [facility] N-TERMINAL PRO-BNP 2022-06-10 17:54:00 Robbi Muro [facility] CONSENT/REFUSAL FOR DIAGNOSIS AND TREATMENT 2022-06-10 17:38:54 Doctor Unassigned, [place] [facility] Encounters Start Date/Time End Date/Time Encounter Type Admission Type Attending Clinicians Care Facility Care Department Encounter ID Source 2024-07-14 09:56:00 Outpatient Estefany Evans [facility] [id number] [facility] 2023-09-16 15:59:01 Outpatient Estefany Evans [facility] [id number] [facility] 2023-09-15 13:03:00 Outpatient Estefany Evans [facility] [id number] [facility] 2023-01-10 09:10:01 Outpatient Estefany Evans [facility] [id number] [facility] 2023-01-07 11:56[facility]01 [facility] [id number] [facility] 2022-12-24 16:13:00 Outpatient Estefany Evans [facility] [id number] [facility] 2022-01-04 12:25:16 Outpatient KAYLA MAGDALENO [facility] [id number] [facility] 2021-08-29 12:51:44 Outpatient [facility] [id number] [facility] 2021-08-29 11:59:56 Outpatient [facility] [id number] [facility] 2021-08-29 11:28:05 Outpatient [facility] [id number] [facility] 2021-08-29 11:27:12 Outpatient [facility] [id number] [facility] 2021-06-01 02:46:06 Emergency [facility] [id number] [facility] 2020-12-18 09:37:[address] [facility] [id number] [facility] 2020-12-18 09:37:[address] [facility] [id number] [facility] 2020-12-18 09:37:[address] [facility] [id number] [facility] 2020-12-15 12:03:[address] [facility] [id number] [facility] 2020-12-15 12:03:[address] [facility] [id number] [facility] 2020-12-15 12:00:[address] [facility] [id number] [facility] 2020-12-09 04:06:39 Outpatient LACEY IVERSON [facility] [id number] [facility] 2023-12-17 00:00:00 2023-12-17 00:00:00 (PO) Post Op [facility] [id number] [facility] 2023-12-11 00:00:00 2023-12-11 00:00:00 (TEL) [facility] [id number] [facility] 2023-12-01 00:00:00 2023-12-01 00:00:00 (TEL) [facility] [id number] [facility] 2023-11-28 00:00:00 2023-11-28 00:00:00 (F/U) Follow Up Visit [facility] [id number] [facility] 2023-11-28 00:00:00 2023-11-28 00:00:00 (TEL) [facility] STLC [id number] [facility] 2023-10-22 00:00:00 2023-10-22 00:00:00 Outpatient BREE GRIFFITH [facility] [id number] [facility] 2023-09-18 00:00:00 2023-09-18 00:00:00 (ESTPT) [facility] [id number] 2023-09-03 00:00:00 2023-09-03 00:00:00 Patient Secure Msg Doctor Unassigned, [place] [facility] [id number] 350.1.13.10 4.2.7.2.686 [id number] [facility] 2023-09-01 00:00:00 2023-09-01 00:00:00 Transition of Care Veronika Espinoza [facility] [id number] 350.1.13.10 4.2.7.2.686 [id number] [facility] 2023-08-29 10:29:00 2023-08-30 14:13:00 Outpatient X ANNAMARIA BARKER [facility] [id number] [facility] 2023-08-29 10:29:00 2023-08-30 14:13:00 Emergency Marylou Driver David [facility] 1.2840.114 350.1.13.10 4.2.7.2.686 [id number] [facility] 2023-08-30 00:00:00 2023-08-30 00:00:00 Telephone Bree Cervantes [facility] [id number] 350.1.13.10 4.2.7.2.686 [id number] [facility] 2023-05-23 00:00:00 2023-05-23 00:00:00 (PO) Post Op [facility] [id number] [facility] 2023-05-07 00:00:00 2023-05-07 00:00:00 NON-BILLAB LE VISIT [facility]MLC [facility] [id number] [facility] 2023-04-29 00:00:00 2023-04-29 00:00:00 (TEL) STLMLC [facility] [id number] [facility] 2023-04-08 00:00:00 2023-04-08 00:00:00 (TEL) [facility]C [facility] [id number] [facility] 2023-04-03 00:00:00 2023-04-03 00:00:00 (TEL) STL[facility]C [facility] [id number] [facility] 2023-03-19 00:00:00 2023-03-19 00:00:00 (TEL) STLMLC [facility] [id number] [facility] 2023-03-17 00:00:00 2023-03-17 00:00:00 OFFICE VISIT ESTAB PT LEVEL 3 [facility] [id number] [facility] 2023-01-13 00:00:00 2023-01-13 00:00:00 OFFICE VISIT ESTAB PT LEVEL 3 [facility] [id number] [facility] 2023-01-07 00:00:00 2023-01-07 00:00:00 OFFICE VISIT ESTAB PT LEVEL 4 [facility] [id number] [facility] 2022-12-31 00:00:00 2022-12-31 00:00:00 Telephone BillyMayraministerio [facility] 1.2840.114 350.1.13.10 4.2.7.2.686 [id number] [facility] 2022-12-31 00:00:00 2022-12-31 00:00:00 Orders Only Doctor Unassigned, [place] [facility] 1.2840.114 350.1.13.10 4.2.7.2.686 [id number] [facility] 2022-12-27 09:20:00 2022-12-27 09:20:00 [facility] 1.0.114 350.1.13.10 4.2.7.2.686 [id number] [facility] 2022-12-27 09:20:00 2022-12-27 09:12:16 Outpatient [facility] [id number] [facility] 2022-12-26 09:40:00 2022-12-26 09:40:00 Outpatient R [facility] [id number] [facility] 2022-12-20 00:00:00 2022-12-20 00:00:00 Orders Only Doctor Unassigned, [place] [facility] 1.20.114 350.1.13.10 4.2.7.2.686 [id number] [facility] 2022-09-23 06:38:00 2022-09-23 09:05:00 Outpatient R KAYLA LUTZ [facility] [id number] [facility] 2022-09-23 06:38:00 2022-09-23 09:05:00 Hospital Encounter Kayla Lutz [facility] 1.0.114 350.1.13.10 4.2.7.2.686 [id number] [facility] 2022-09-23 07:25:00 2022-09-23 07:50:00 Surgery Kayla Lutz [facility] 1.20.114 350.1.13.10 4.2.7.2.686 [id number] [facility] 2022-09-23 00:00:00 2022-09-23 00:00:00 Orders Only Doctor Unassigned, [place] [facility] 1.2840.114 350.1.13.10 4.2.7.2.686 [id number] [facility] 2022-09-20 00:00:00 2022-09-20 00:00:00 Telephone Bernice Colunga [facility] 1.20.114 350.1.13.10 4.2.7.2.686 [id number] [facility] 2022-09-19 10:05:00 2022-09-19 11:39:00 Emergency X PEDRO LUIS RUSHINGPEDRO LUIS [facility] ERT [id number] [facility] 2022-09-19 10:05:00 2022-09-19 11:39:00 Emergency Pedro Luis Rushing [facility] 1.20.114 350.1.13.10 4.2.7.2.686 [id number] [facility] 2022-09-19 10:15:00 2022-09-19 10:30:00 Plate Worker Visit Pob, Adc Lab Main Kayla Lutz [facility] 1..114 350.1.13.10 4.2.7.2.686 [id number] [facility] 2022-09-19 08:22:49 2022-09-19 10:04:00 Hospital Encounter Kayla Lutz [facility] 1.20.114 350.1.13.10 4.2.7.2.686 [id number] [facility] 2022-09-19 08:21:46 2022-09-19 08:21:46 Outpatient R KAYLA LUTZ [facility] [id number] [facility] 2022-09-19 00:00:00 2022-09-19 00:00:00 Orders Only Doctor Unassigned, [place] [facility] 1.2840.114 350.1.13.10 4.2.7.2.686 [id number] [facility] 2022-09-17 00:00:00 2022-09-17 00:00:00 Orders Only Doctor Unassigned, [place] [facility] 1.20.114 350.1.13.10 4.2.7.2.686 [id number] [facility] 2022-09-16 00:00:00 2022-09-16 00:00:00 Prep For Surgery Kayla Lutz [facility] 1.84.114 350.1.13.10 4.2.7.2.686 [id number] [facility] 2022-09-10 16:30:00 2022-09-10 23:59:00 Outpatient R BERNICE COLUNGA [facility] [id number] [facility] 2022-09-10 16:00:00 2022-09-10 16:15:00 Office Visit Bernice Colunga [facility] [facility] 1.284.114 350.1.13.10 4.2.7.2.686 [id number] [facility] 2022-09-10 00:00:00 2022-09-10 00:00:00 Orders Only Doctor Unassigned, [place] [facility] 1.20.114 350.1.13.10 4.2.7.2.686 [id number] [facility] 2022-09-10 00:00:00 2022-09-10 00:00:00 [facility] 1.2.840.114 350.1.13.10 4.2.7.2.686 [id number] [facility] 2022-09-09 00:00:00 2022-09-09 00:00:00 Telephone Keanu [facility] GREGOR?[facility] 1..840.114 350.1.13.10 4.2.7.2.686 [id number] [facility] 2022-06-13 00:00:00 2022-06-13 00:00:00 Transition of Care Chelo Cor[facility]jo [facility] 1..840.114 350.1.13.10 4.2.7.2.686 [id number] [facility] 2022-06-10 11:37:00 2022-06-12 16:00:00 Outpatient [facility] [id number] [facility] 2022-06-10 11:37:00 2022-06-12 16:00:00 Emergency Brodie Clemons David [facility] 1..840.114 350.1.13.10 4.2.7.2.686 [id number] [facility] 2022-04-19 08:55:00 2022-04-19 23:59:00 Outpatient BERNICE REYES [facility] [id number] [facility] 2022-04-19 08:55:00 2022-04-19 23:59:00 Outpatient BERNICE REYES [facility] [id number] [facility] 2022-04-19 08:45:00 2022-04-19 09:00:00 Office Visit Bernice Colunga [facility] 1.2.840.114 350.1.13.10 4.2.7.2.686 [id number] [facility] 2022-02-25 15:15:00 2022-02-25 15:15:00 [facility] [id number] [facility] 2022-02-21 10:45:00 2022-02-21 10:45:00 Outpatient R BERNICE COLUNGA [facility] [id number] [facility] 2022-02-18 10:30:00 2022-02-18 10:30:00 Outpatient R FILIPE WIGGINS [facility] [id number] [facility] 2022-01-18 10:00:00 2022-01-18 10:00:00 Outpatient R CLAYTON GARRIDO [facility] [id number] [facility] 2022-01-17 00:00:00 2022-01-17 00:00:00 Refill Kayla Lutz [facility] 1..840.114 350.1.13.10 4.2.7.2.686 [id number] [facility] 2022-01-14 06:59:00 2022-01-14 09:15:00 Outpatient R KAYLA LUTZ [facility] [id number] [facility] 2022-01-14 06:59:00 2022-01-14 09:15:00 Hospital Encounter Kayla Lutz [facility] 1..840.114 350.1.13.10 4.2.7.2.686 [id number] [facility] 2022-01-14 08:20:00 2022-01-14 09:12:00 Surgery Kayla Lutz [facility] 1..840.114 350.1.13.10 4.2.7.2.686 [id number] [facility] 2022-01-14 08:25:00 2022-01-14 08:39:00 Anesthesia Event Bharath Padgett, Oliver Fajardo [facility] 1.2.840.114 350.1.13.10 4.2.7.2.686 [id number] [facility] 2022-01-14 00:00:00 2022-01-14 00:00:00 Orders Only Doctor Unassigned, [place] [facility] 1.2.840.114 350.1.13.10 4.2.7.2.686 [id number] [facility] 2022-01-11 07:39:32 2022-01-11 23:59:00 Hospital Encounter Kayla Lutz [facility] 1.2840.114 350.1.13.10 4.2.7.2.686 [id number] [facility] 2022-01-11 07:39:18 2022-01-11 23:59:00 Outpatient R KAYLA LUTZ [facility] [id number] [facility] 2022-01-11 08:30:00 2022-01-11 08:45:00 Plate Worker Visit Pob, Adc Lab Main Kayla Lutz [facility] 1.0.114 350.1.13.10 4.2.7.2.686 [id number] [facility] 2022-01-11 08:15:00 2022-01-11 08:30:00 Laboratory Only Only, Adc Test Kayla Lutz [facility] 1.840.114 350.1.13.10 4.2.7.2.686 [id number] [facility] 2022-01-11 08:15:00 2022-01-11 08:15:00 Outpatient R KAYLA LUTZ [facility] [id number] [facility] 2022-01-11 00:00:00 2022-01-11 00:00:00 Telephone Kayla Lutz [facility] 1.2.840.114 350.1.13.10 4.2.7.2.686 [id number] [facility] 2022-01-04 11:15:00 2022-01-04 11:30:00 Office Visit Bernice Colunga Lu[facility] 1..840.114 350.1.13.10 4.2.7.2.686 [id number] [facility] 2022-01-04 11:15:00 2022-01-04 11:15:00 Outpatient R KEANU BERNICE [facility] [id number] [facility] 2022-01-04 11:15:00 2022-01-04 11:15:00 Outpatient R COLUNGA BERNICE [facility] [id number] [facility] 2022-01-04 00:00:00 2022-01-04 00:00:00 Prep For Surgery Kay[facility] Lutz [facility] 1..840.114 350.1.13.10 4.2.7.2.686 [id number] [facility] 2021-12-20 10:00:00 2021-12-20 10:00:00 Outpatient R KAYLA LUTZ [facility] [id number] [facility] 2021-12-11 00:00:00 2021-12-11 00:00:00 Telephone Kayla Lutz [facility] 1..840.114 350.1.13.10 4.2.7.2.686 [id number] [facility] 2021-12-07 10:23:58 2021-12-07 23:59:00 Outpatient R BERNICE COLUNGA [facility] [id number] [facility] 2021-12-07 10:23:58 2021-12-07 23:59:00 Hospital Encounter Bernice Colunga [facility] 1.840.114 350.1.13.10 4.2.7.2.686 [id number] [facility] 2021-11-30 10:45:00 2021-11-30 11:13:44 Outpatient R BERNICE COLUNGA [facility] [id number] [facility] 2021-11-30 10:45:00 2021-11-30 11:13:44 [facility] 1.840.114 350.1.13.10 4.2.7.2.686 [id number] [facility] 2021-11-30 10:45:00 2021-11-30 11:13:44 Outpatient R BERNICE COLUNGA [facility] [id number] [facility] 2021-11-28 00:00:00 2021-11-28 00:00:00 Tele[facility]AYL[facility] 1.840.114 350.1.13.10 4.2.7.2.686 [id number] [facility] 2021-11-28 00:00:00 2021-11-28 00:00:00 Orders Only Doctor Unassigned, [place] [facility] 1.840.114 350.1.13.10 4.2.7.2.686 [id number] [id number] [facility] 2021-11-27 00:00:00 2021-11-27 00:00:00 Telephone Kayla Lutz [facility] 1.2840.114 350.1.13.10 4.2.7.2.686 [id number] [facility] 2021-11-22 00:00:00 2021-11-22 00:00:00 Orders Only Doctor Unassigned, [place] [facility] 1.2840.114 350.1.13.10 4.2.7.2.686 [id number] [id number] [facility] 2021-11-21 00:00:00 2021-11-21 00:00:00 Telephone Piotr Lutzig [place] [facility] 1.2840.114 350.1.13.10 4.2.7.2.686 [id number] [facility] 2021-11-21 00:00:00 2021-11-21 00:00:00 Telephone [facility]iot[facility]ig [place] [facility] 1.2840.114 350.1.13.10 4.2.7.2.686 [id number] [facility] 2021-11-19 00:00:00 2021-11-19 00:00:00 Telephone [facility] 1.2840.114 350.1.13.10 4.2.7.2.686 [id number] [facility] 2021-11-19 00:00:00 2021-11-19 00:00:00 Telephone Piotr [facility]utzig [place] [facility] 1.2840.114 350.1.13.10 4.2.7.2.686 [id number] [facility] 2021-11-12 00:00:00 2021-11-12 00:00:00 Telephone Kayla Lutz [facility] 1..840.114 350.1.13.10 4.2.7.2.686 [id number] [facility] 2021-10-29 00:00:00 2021-10-29 00:00:00 Telephone Kayla Lutz [facility] 1..840.114 350.1.13.10 4.2.7.2.686 [id number] [facility] 2021-10-26 00:00:00 2021-10-26 00:00:00 Telephone Kayla Lutz [facility] 1..840.114 350.1.13.10 4.2.7.2.686 [id number] [facility] 2021-10-24 09:30:00 2021-10-24 10:20:40 Outpatient R KEANU BERNICE [facility] [id number] [facility] 2021-10-24 09:30:00 2021-10-24 10:20:40 Office Visit Keanu [facility] 1.2.840.114 350.1.13.10 4.2.7.2.686 [id number] [facility] 2021-10-24 09:30:00 2021-10-24 10:20:40 Outpatient R BERNICE COLUNGA [facility] [id number] [facility] 2021-10-24 09:30:00 2021-10-24 10:20:40 Office Visit Keanu [facility] 1.2.840.114 350.1.13.10 4.2.7.2.686 [id number] [facility] 2021-10-19 00:00:00 2021-10-19 00:00:00 Telephone Keanu [facility] 1.2.840.114 350.1.13.10 4.2.7.2.686 [id number] [facility] 2021-10-18 00:00:00 2021-10-18 00:00:00 Telephone Keanu [facility] 1..840.114 350.1.13.10 4.2.7.2.686 [id number] 198 [id number] [facility] 2021-10-12 14:00:00 2021-10-12 15:00:16 Outpatient RENÉE VILLARREAL [facility]ARD [facility] [id number] [facility] 2021-10-02 00:00:00 2021-10-02 00:00:00 Telephone Keanu [facility] 1..840.114 350.1.13.10 4.2.7.2.686 [id number] [facility] 2021-10-02 00:00:00 2021-10-02 00:00:00 Orders Only Doctor Unassigned, [place] [facility] 1.2.840.114 350.1.13.10 4.2.7.2.686 [id number] [id number] [facility] 2021-09-27 00:00:00 2021-09-27 00:00:00 Orders Only Doctor Unassigned, [place] [facility] 1.2.840.114 350.1.13.10 4.2.7.2.686 [id number] [facility] 2021-09-24 15:50:00 2021-09-24 23:59:00 Outpatient BERNICE REYES [facility] [id number] [facility] 2021-07-02 00:00:00 2021-07-02 00:00:00 (TEL) STLMLC STLMLC [id number] [facility] 2021-06-27 14:15:00 2021-06-27 14:15:00 Outpatient R BERNICE COLUNGA [facility] [id number] [facility] 2021-06-27 14:15:00 2021-06-27 14:15:00 Outpatient [facility] [id number] [facility] 2021-06-27 13:39:57 2021-06-27 13:54:57 Office Visit Keanu [facility]?KAYLANJory [facility] 1.840.114 350.1.13.10 4.2.7.2.686 [id number] [facility] 2021-06-26 15:45:00 2021-06-26 15:45:00 Outpatient R KEANU [facility] [id number] [facility] 2021-06-26 15:45:00 2021-06-26 15:45:00 [facility] [id number] [facility] 2021-06-25 00:00:00 2021-06-25 00:00:[address] [facility] 1..840.114 350.1.13.10 4.2.7.2.686 [id number] [facility] 2021-05-23 00:00:00 2021-05-23 00:00:00 Telephone Keanu [facility] Gregor?Kaylanjory pelonros[facility] 1..840.114 350.1.13.10 4.2.7.2.686 [id number] [facility] 2021-05-22 13:00:00 2021-05-22 23:59:00 Hospital Encounter Keanu [facility] Gregor?Kaylanjory pelonroslyn [facility] 1..840.114 350.1.13.10 4.2.7.2.686 [id number] [facility] 2021-05-22 16:15:00 2021-05-22 14:56:21 Outpatient R BERNICE COL[facility]GA [facility] [id number] [facility] 2021-05-22 16:15:00 2021-05-22 14:56:21 Outpatient R KEANU [facility] [id number] [facility] 2021-05-22 12:47:56 2021-05-22 14:56:21 Office Visit Keanu[facility]ice [facility]?Naty paredes [facility] 1..840.114 350.1.13.10 4.2.7.2.686 [id number] [facility] 2021-05-22 00:00:00 2021-05-22 00:00:00 Orders Only Doctor Unassigned, [place] [facility] 1..840.114 350.1.13.10 4.2.7.2.686 [id number] [facility] 2021-04-23 10:10:00 2021-04-23 10:10:00 [id number] 2021-04-23 10:00:06 2021-04-23 10:00:17 Imm[facility]Inj [facility] 1..840.114 350.1.13.10 4.2.7.2.686 [id number] [facility] 2021-04-02 14:40:00 2021-04-02 14:40:00 [facility] [id number] [facility] 2021-04-02 13:41:25 2021-04-02 13:41:44 Imm/Inj Visit NurseHailey Immuniztoo Resend[facility] 1.2.840.114 350.1.13.10 4.2.7.2.686 [id number] [facility] 2021-01-26 00:00:00 2021-01-26 00:00:00 RefLacey Mccormack [facility] 1.2.840.114 350.1.13.58 9.2.7.2.686 [id number] [facility] 2021-01-26 00:00:00 2021-01-26 00:00:00 Refill Lacey Iverson [facility] 1.2.840.114 350.1.13.58 9.2.7.2.686 [id number] 2020-12-18 09:22:21 2020-12-18 12:11:17 Office Visit Jonas Barker [facility] 1.2.840.114 350.1.13.58 9.2.7.2.686 [id number] [facility] 2020-12-18 09:22:21 2020-12-18 12:11:17 Office Visit Jonas Barker [facility] 1 1.2.840.114 350.1.13.58 9.2.7.2.686 [id number] 2020-09-06 00:00:00 2020-09-06 00:00:00 (TEL) STLMLC [facility]MLC [id number] [facility] 2020-07-20 00:00:00 2020-07-20 00:00:00 (TEL) STLMLC [facility]MLC [id number] [facility] 2020-07-12 00:00:00 2020-07-12 00:00:00 (TEL) STLMLC STLMLC [id number] [facility] 2020-06-21 00:00:00 2020-06-21 00:00:00 Outpatient STLMLC [facility] [id number] [facility] 2020-06-12 00:00:00 2020-06-12 00:00:00 [facility] [id number] 2020-06-06 00:00:00 2020-06-06 00:00:00 [facility] [id number] 2020-01-26 20:05:2020-01-26 21:04:00 Emergency [facility] 1.2.840.114 350.1.13.10 4.2.7.2.686 [id number] 2020-01-26 20:05:19 2020-01-26 21:04:00 Emergency [facility] 1.2.840.114 350.1.13.10 4.2.7.2.686 [id number] [facility] 2020-01-26 00:00:00 2020-01-26 00:00:00 Orders Only Doctor Unassigned, [place] [facility] 1.2840.114 350.1.13.10 4.2.7.2.686 [id number] 2020-01-26 00:00:00 2020-01-26 00:00:00 Orders Only Doctor Unassigned, [place] [facility] 1.2.840.114 350.1.13.10 4.2.7.2.686 [id number] [facility] 2020-01-20 08:00:00 2020-01-20 08:00:00 Outpatient [facility] [id number] [facility] 2020-01-20 00:00:00 2020-01-20 00:00:00 Orders Only Doctor Unassigned, [place] [facility] 1.2840.114 350.1.13.10 4.2.7.2.686 [id number] [id number] [facility] 2020-01-20 00:00:00 2020-01-20 00:00:00 Orders Only Doctor Unassigned, [place] [facility] 1.2.840.114 350.1.13.10 4.2.7.2.686 [id number] [id number] Results Test Description Test Time Test Comments Results Result Co mments Source [facility] GLUCOSE (AUTOMATED)2023-08-30 13:51:48* Test Item Value Reference Range Interpretation Comme [facility] POCT GLU (test code = 0732515773) 105 mg/dL 70-110 Lab Interpretation (test cod e = 76812-6) Normal [facility] Hem[facility] (A1C)2023-08-30 05:45:04* Test Item Value Reference Range Interpretation Comme [facility] HGB A1C (test code = 4548-4) 6.0 % 4.0-5.7 H SRIRAM (test code = SRIRAM) Reference RangesNormal: <5.7%Prediabetes: 5.7 - 6.4%Diabetes: > 6.5% Lab Interpretation (test code = 12576-8) Abnormal [facility] GLUCOSE (AUTOMATED)2023-08-30 02:23:04* Test Item Value Reference Range Interpretation Comme [facility] POCT GLU (test code = 0479318535) 101 mg/dL 70-110 Lab Interpretation (test cod e = 79940-8) Normal [facility] ABDOMEN PELVIS W [id number] 00:26:53PROCEDURE:CT ABDOMEN PELVIS W CONTRAST ORDERING PHYSICIAN: [...] lesions. Vazquez: (S/I) = seriesnumber / image numberUnThe [facility] CampusCT CHEST PULMONARY ANGIOGRAM 2023-08-29 19:22:01CT SCAN OF [...] BONES/ CHEST WALL: No aggressive or acute abnormalities.[facility]inteTRANUPAM [id number] 17:47:43* Test Item Value Reference Range Interpretation Comme nts TROPONIN I (test code = 6559017505) 0.001 ng/mL <=0.034 SRIRAM (test code = [...] of biotin. Lab Interpretation (test code = 21424-6) Normal [facility]inte[facility]esium2024-01-26 17:36:59* Test Item Value Reference Range Interpretation Comme nts MAGNESIUM (test code = 8864701265) 1.7 mg/dL 1.7-2.4 Lab Interpretation (test cod e = 52771-5) Normal [facility]inteCOMP. METABOLIC PANEL (70096)2023-08-29 17:36:38* Test Item Value Reference Range Interpretation Comme nts NA (test code = 6955908057) 139 mmol/L 135-145 K (test code = 1829583104) 4.1 mmol/L 3.5-5.0 CL (test code = 2385035293) 107 mmol/L 98-108 CO2 TOTAL (test code = 7293189526) 25 mmol/L 23-31 AGAP (test code = 8382920265) 7 2-16 BUN (test code = 2045217152) 13 mg/dL 7-23 GLUCOSE (test code = 9852353933) 114 mg/dL 70-110 H CREATININE (test code = 4211588769) 0.75 mg/dL 0.50-1.04 TOTAL BILI (test code = 3834316460) 0.6 mg/dL 0.1-1.1 CALCIUM (test code = 9112045049) 9.6 mg/dL 8.6-10.6 T PROTEIN (test code = 9619652276) 7.7 g/dL 6.3-8.2 ALBUMIN (test code = 7482934659) 4.1 g/dL 3.5-5.0 ALK PHOS (test code = 7425846066) 121 U/L 34-122 ALTv (test code = 1742-6) 16 U/L 5-35 AST(SGOT) (test code = 5576474144) 24 U/L 13-40 eGFR (test code = 80606-0) 94.7 mL/min/1.73m2 CKD-EPI eGFR (2020). Assuming creatinine has been stable day-to-day for at least three months, the eGFR indicates Category G1 (>= 90 mL/min/1.73 m2) Lab Interpretation (test code = 64557-6) Abnormal [facility]inteLIPASE2024-01-26 17:36:22* Test Item Value Reference Range Interpretation Comme nts LIPASE (test code = 0017373674) 82 U/L 0-220 Lab Interpretation (test cod e = 28080-9) Normal [facility] PointeD-[id number] 17:34:40* Test Item Value Reference Range Interpretation Comments D-DIMER (test code = 8093775635) 0.96 See_Comment H [Automated message] The system [...] a diagnosis. Lab Interpretation (test code = 62297-4) Abnormal [facility]inteXR CHEST 1 [id number] 17:17:59EXAM: XR CHEST 1 08/29/2023 10:59 AM HISTORY: 53 years-old Female with chest pain . TECHNIQUE: Portable AP view of the chest. COMPARISON: None. FINDINGS: Lines and tubes: None. Cardiomediastinal: The cardiomediastinal silhouette is normal in sizeaccounting for depth of inspiration. Lungs and pleura: Low lung volumes. Noacute infiltrate or effusion. Included osseous structures show no acute abnor mality.[facility] WITH [id number] 17:17:19* Test Item Value Reference Range Interpretation [...] g/dL 31.6-35.1 L RDW-SD (test code = 31624-4) 52.5 fL 39.0-49.9 H RDW-CV (test code = 788-0) 17.5 % 12.0-15.5 H PLT (test code = 777-3) 344 See_Comment [Automated messa ge] The system which generated this result transmitted reference range: 166 - 358 10*3/?L. The reference range was not used to interpret this result as normal/abnormal. MPV (test code = 93642-0) 10.0 fL 9.5-12.9 NRBC/100 WBC (test code = 8457728205) 0.0 See_Comment [Automated Bioserie ssage] The system which generated this result transmitted reference range: 0.0 - 10.0 /100 WBCs. The reference range was not used to interpret this result as normal/abnormal. NRBC x10^3 (test code = 3478393039) See_Comment [Automated messa ge] The system which generated this result transmitted reference range: 10*3/?L. The reference range was not used to interpret this result as normal/abnormal. GRAN MAT (NEUT) % (test code = 770-8) 68.0 % IMM GRAN % (test code = 1731044199) 0.20 % LYMPH % (test code = 736-9) 23.8 % MONO % (test code = 5905-5) 6.1 % EOS % (test code = 713-8) 1.6 % BASO % (test code = 706-2) 0.3 % GRAN MAT x10^3(ANC) (test code = 9636280234) 4.14 10*3/uL 1.88-7.09 IMM GRAN x10^3 (test code = 7421688641) 0.00-0.06 LYMPH x10^3 (test code = 731-0) 1.45 10*3/uL 1.32-3.29 MONO x10^3 (test code = 742-7) 0.37 10*3/uL 0.33-0.92 EOS x10^3 (test code = 711-2) 0.10 10*3/uL 0.03-0.39 BASO x10^3 (test code = 704-7) 0.01-0.07 Lab Interpretation (test code = 73029-6) Abnormal [facility] Screen - This is a pre-surgical type and screen. ONCE [id number] 13:38:39* Test Item Value Reference Range Interpretation Comme nts ABO & RH (test code = 20) O Positive Performed at [facility] Laboratory Services - [facility] Blood [address] [place], [place] [id number] Free: [phone] No. [id number] IAT (test code = 1185) Negative Performed at [facility] Laboratory Services - [facility] Blood [address] [place], [place] [address]Toll Free: [phone] No. [id number] [facility] This is a pre-surgical type and screen. ONCE [id number] 13:38:39* Test Item Value Reference Range Interpretation Comme nts ABO & RH (test code = 20) O Positive Performed at [facility] Laboratory [facility] - [facility] Blood [address] [place] [address] Free: [phone] No. [id number] IAT (test code = 1185) Negative Performed at [facility] Laboratory [facility] Blood [address] [place] [address] Free: [phone] No. [id number] [facility] GLUCOSE (AUTOMATED)2022-09-23 12:53:02* Test Item Value Reference Range Interpretation Comme nts POCT GLU (test code = 3632402485) 105 mg/dL 70-110 Lab Interpretation (test cod e = 32407-5) Normal [facility] GLUCOSE (AUTOMATED)2022-09-23 12:53:02* Test Item Value Reference Range Interpretation Comme nts POCT GLU (test code = 3422820238) 105 mg/dL 70-110 Lab Interpretation (test cod e = 08924-6) [facility] [id number] 17:00:16* Test Item Value Reference Range Interpretation Comme nts TROPONIN I (test code = 7090049491) 0.003 ng/mL <=0.034 SRIRAM (test code = [...] of biotin. Lab Interpretation (test code = 89444-3) Normal [facility] GLUCOSE (AUTOMATED)2022-06-12 18:17:12* Test Item Value Reference Range Interpretation Comme nts POCT GLU (test code = 4166456834) 161 mg/dL 70-110 H Lab Interpretation (test cod e = 08360-5) Abnormal [facility] GLUCOSE (AUTOMATED)2022-06-12 08:00:25* Test Item Value Reference Range Interpretation Comme nts POCT GLU (test code = 1571855381) 122 mg/dL 70-110 H Lab Interpretation (test cod e = 98817-9) Abnormal [facility] GLUCOSE (AUTOMATED)2022-06-12 01:58:54* Test Item Value Reference Range Interpretation Comme nts POCT GLU (test code = 8399526539) 124 mg/dL 70-110 H Lab Interpretation (test cod e = 01609-6) Abnormal [facility] GLUCOSE (AUTOMATED)2022-06-11 22:59:46* Test Item Value Reference Range Interpretation Comme nts POCT GLU (test code = 7615644065) 115 mg/dL 70-110 H Lab Interpretation (test cod e = 87455-1) Abnormal [facility] GLUCOSE (AUTOMATED)2022-06-11 22:59:46* Test Item Value Reference Range Interpretation Comme nts POCT GLU (test code = 9012501149) 104 mg/dL 70-110 Lab Interpretation (test cod e = 61064-5) Normal [facility] GLUCOSE (AUTOMATED)2022-06-11 14:11:49* Test Item Value Reference Range Interpretation Comme nts POCT GLU (test code = 8649031413) 91 mg/dL 70-110 Lab Interpretation (test cod e = 82745-8) [facility] [id number] 09:07:50* Test Item Value Reference Range Interpretation Comme nts IRON (test code = 7036036745) 39 ug/dL 50-160 L TIBC (test code = 2067018292) 346 ug/dL 250-410 % FE SAT (test code = 7154801381) 11 % 20-50 L Lab Interpretation (test cod e = 68716-0) [facility]normal [facility] [id number] 08:27:06* Test Item Value Reference Range Interpretation Comme nts FERRITIN (test code = 1127357571) 7.5 ng/mL 11.0-264.0 L SRIRAM (test code = SRIRAM) Biotin has been reported to cause a negative bias, interpret results relative to patient's use of biotin. Lab Interpretation (test code = 94710-9) [facility]normal [facility] [id number] 08:01:40* Test Item Value Reference Range Interpretation Comme nts NT-proBNP (test code = 2173957261) 39 pg/mL See_Comment [Automated message] The system which generated this result transmitted reference range: <=125. The reference range was not used to interpret this result as normal/abnormal. SRIRAM (test code = SRIRAM) Biotin has been reported to cause a negative bias, interpret results relative to patient's use of biotin. Lab Interpretation (test code = 42762-8) [facility] GLUCOSE (AUTOMATED)2022-06-11 07:59:15* Test Item Value Reference Range Interpretation Comme nts POCT GLU (test code = 4241501086) 141 mg/dL 70-110 H Lab Interpretation (test cod e = 33171-3) [facility]normal [facility]2022-11-08 07:59:15* Test Item Value Reference Range Interpretation Comme nts MAGNESIUM (test code = 1852376678) 1.6 mg/dL 1.7-2.4 L Lab Interpretation (test cod e = 70159-2) [facility]normal [facility]2022-11-08 07:59:10* Test Item Value Reference Range Interpretation Comme nts PHOSPHORUS (test code = 5199794836) 2.6 mg/dL 2.5-5.0 Lab Interpretation (test cod e = 52935-0) Normal [facility] [id number] 07:59:05* Test Item Value Reference Range Interpretation Comme nts URIC ACID (test code = 3178205213) 3.0 mg/dL 2.9-6.0 Lab Interpretation (test cod e = 21406-0) [facility] (NA, K, CL, CO2, GLUCOSE, BUN, CREATININE, CA)2022-06-10 18:34:39* Test Item Value Reference Range Interpretation Comme nts NA (test code = 3904925948) 139 mmol/L 135-145 K (test code = 0761522641) 4.2 mmol/L 3.5-5.0 CL (test code = 8137579123) 105 mmol/L 98-108 CO2 TOTAL (test code = 9942331872) 28 mmol/L 23-31 AGAP (test code = 1546119554) 2-16 BUN (test code = 3934635109) 15 mg/dL 7-23 GLUCOSE (test code = 4417073525) 106 mg/dL 70-110 CREATININE (test code = 9972785948) 0.75 mg/dL 0.50-1.04 CALCIUM (test code = 1366181989) 9.0 mg/dL 8.6-10.6 eGFR (test code = 2599199154) mL/min/1.73m2 SRIRAM (test code = SRIRAM) Association [...] or urine or abnormalities in imaging tests). [facility] FUNCTION PANEL (49605) (ALB,T.PRO,BILI T,BU/BC,ALT,AST,ALK PHOS)2022-06-10 18:34:39* Test Item Value Reference Range Interpretation Comme nts TOTAL BILI (test code = 5077924460) 0.4 mg/dL 0.1-1.1 BILI UNCON (test code = 2303206548) 0.2 mg/dL 0.1-1.1 BILI CONJ (test code = 0830874533) 0.0 mg/dL 0.0-0.3 T PROTEIN (test code = 7726200614) 6.9 g/dL 6.3-8.2 ALBUMIN (test code = 0550617748) 4.0 g/dL 3.5-5.0 ALK PHOS (test code = 5347496317) 139 U/L 34-122 H ALTv (test code = 1742-6) 23 U/L 5-35 AST(SGOT) (test code = 8947799802) 21 U/L 13-40 Lab Interpretation (test cod e = 12102-6) [facility]normal [facility]IP[facility]2022-11-07 18:34:39* Test Item Value Reference Range Interpretation Comme nts LIPASE (test code = 3769047797) 108 U/L 0-220 Lab Interpretation (test cod e = 10315-8) Normal [facility] WITH [id number] 18:27:20* Test Item Value Reference Range Interpretation Comme nts WBC (test code = 6690-2) See_Comment [Automated [employer]a ge] The system which generated this result transmitted reference range: 4.30 - 11.10 10*3/?L. The reference range was not used to interpret this result as normal/abnormal. RBC (test code = 789-8) See_Comment [Automated [employer]] The system which generated this result [...] 31.8 g/dL 31.6-35.1 RDW-SD (test code = 90821-7) 48.3 fL 39.0-49.9 RDW-CV (test code = 788-0) 15.4 % 12.0-15.5 PLT (test code = 777-3) See_Comment [Automated messa ge] The system which generated this result transmitted reference range: 166 - 358 10*3/?L. The reference range was not used to interpret this result as normal/abnormal. MPV (test code = 22579-8) 10.4 fL 9.5-12.9 NRBC/100 WBC (test code = 1889212782) See_Comment [Automated me ssage] The system which generated this result transmitted reference range: 0.0 - 10.0 /100 WBCs. The reference range was not used to interpret this result as normal/abnormal. NRBC x10^3 (test code = 3141796590) See_Comment [Automated me ssage] The system which generated this result transmitted reference range: 10*3/?L. The reference range was not used to interpret this result as normal/abnormal. GRAN MAT (NEUT) % (test code = 770-8) 62.1 % IMM GRAN % (test code = 1281318787) 0.50 % LYMPH % (test code = 736-9) 29.1 % MONO % (test code = 5905-5) 7.3 % EOS % (test code = 713-8) 0.6 % BASO % (test code = 706-2) 0.4 % GRAN MAT x10^3(ANC) (test code = 3597224270) 5.30 10*3/uL 1.88-7.09 IMM GRAN x10^3 (test code = 1480092151) 0.04 10*3/uL 0.00-0.06 LYMPH x10^3 (test code = 731-0) 2.48 10*3/uL 1.32-3.29 MONO x10^3 (test code = 742-7) 0.62 10*3/uL 0.33-0.92 EOS x10^3 (test code = 711-2) 0.05 10*3/uL 0.03-0.39 BASO x10^3 (test code = 704-7) 0.03 10*3/uL 0.01-0.07 [facility] Consult Notes Date/Time Note Provider Source 2023-08-30 13:19:15 Associated Order(s): CONSULT CARDIOLOGY [facility] Cardiology Consult PCP: Estefany Evans Date of Service: 08/30/2023 CHIEF COMPLAINT/reason for consult: Chest pain HISTORY OF PRESENT ILLNESS This is a 53 years old female with past med history of type 2 diabetes and morbid obesity. She came to [facility] for chest pain. It is left-sided chest [...] Left 01/14/2022 Surgeon: Kayla Lutz MD; Location: [facility] JOINT SURGERY right shoulder MAJOR JOINT INJECTION Bilateral 09/23/2022 Surgeon: Kayla Lutz MD; Location: [facility] TUBAL LIGATION Family History Problem [...] be of further assistance. Bree Cervantes MD, [facility], [facility] [employer] Division of Cardiovascular Medicine [facility] - Health History and Physical Notes Date/Time Note Provider Source 2023-08-29 20:24:02 MEDICINE [place] ADMIT H&P Date of Service: 08/29/2023 CHIEF [...] Left 01/14/2022 Surgeon: Kayla Lutz MD; Location: [facility] JOINT SURGERY right shoulder MAJOR JOINT INJECTION Bilateral 09/23/2022 Surgeon: Kayla Lutz MD; Location: [facility] TUBAL LIGATION Family History Problem [...] Prophylaxis: DVT- enoxaparin Code Status: Full Code [facility] EMERGENCY PHYSICIAN STAFF [facility]
[2024-07-26] MEDS ORDERED: PROMETHAZINE INJ 25 MG/ML AMP ONE (01:43)
[2024-07-26 01:52] LABS: Absolute Eosinophils 0.1 K/uL (0-0.5); Absolute Monocytes 0.6 K/uL (0.1-1.3); Absolute Neutrophil 4.5 K/uL (1.8-8.0); Basophils % 0.4 % (0-1.3); Eosinophils % 1.4 % (0-4.4); Hematocrit 34.2 % (36.0-45.0); Hemoglobin 10.7 g/dL (12.0-15.0); Lymphocytes % 27.7 % (15.3-44.8); MCH 27.9 pg (27.0-35.0); MCHC 31.3 g/dL (32.0-36.0); MCV 89.2 fL (80-100); MPV 8.4 fL (7.6-11.3); Monocytes % 8.7 % (3.3-12.3); Neutrophils % 61.8 % (41.7-73.7); Platelets 283 thou/uL (152-406); RBC Red Blood Cell Count 3.83 M/uL (3.86-4.86); Red Cell Distribution Width 16.7 % (12.1-15.2)
[2024-07-26 01:56] LABS: PT Prothrombin Time 11.3 SECONDS (9.4-12.5); Protime INR 1.01
[2024-07-26 02:07] LABS: ALT/SGPT 15 U/L (13-56); AST/SGOT 13 U/L (15-37); Albumin 3.2 g/dL (3.4-5.0); Albumin/Globulin Ratio 0.8 (1.1-1.8); Alkaline Phosphatase 131 U/L (45-117); Anion Gap 10.3 mEq/L (5.0-15.0); BUN Blood Urea Nitrogen 13 mg/dL (7-18); Bicarbonate 24 mEq/L (21-32); Bilirubin Total 0.3 mg/dL (0.2-1.0); Globulin 4.1 g/dL (2.3-3.5); Glomerular Filtration Rate 95 ml/min (=/>90); Glucose Level 89 mg/dL (74-106); Magnesium 1.8 mg/dL (1.6-2.4); Potassium 3.3 mEq/L (3.5-5.1); Protein, Total 7.3 g/dL (6.4-8.2); Sodium Level 141 mEq/L (136-145); Troponin High Sensitivity 4.8 pg/mL (<58.9)
[2024-07-26 02:08] LABS: Bilirubin Direct < 0.2 mg/dL (0-0.2); Bilirubin Indirect, Calculated 0.1 mg/dL (0.2-0.8)
--- NOTE | 2024-07-26 03:05 | ER ---
Nurse's Notes [facility] Name: Jazmín Perez Age: 54 yrs Sex: Female : 1970 Arrival Date: 07/26/2024 Time: 00:38 Bed 6 Private MD: Diagnosis: Chest pain, unspecified;Syncope Presentation: 07/26 00:46 Chief complaint: Patient states: reports chest pain and shortness of breath. EMS cp4 reports patient losing consciousness enroute as well. Coronavirus screen: Client denies travel out of the [place] in the last 14 days. At this time, the client does not indicate any symptoms associated with coronavirus-19. Ebola Screen: Patient negative for fever greater than or equal to 101.5 degrees Fahrenheit, and additional compatible Ebola Virus Disease symptoms Patient denies exposure to infectious person. Patient denies travel to an Ebola-affected area in the 21 days before illness onset. No symptoms or risks identified at this time. Initial Sepsis Screen: Does the patient meet any 2 criteria? No. Patient's initial sepsis screen is negative. Does the patient have a suspected source of infection? No. Patient's initial sepsis screen is negative. Risk Assessment: Do you want to hurt yourself or someone else? Patient reports no desire to harm self or others. Onset of symptoms was July 25, 2024. 00:46 Method Of Arrival: EMS: [facility] 00:46 Acuity: LOU 3 cp4 Triage Assessment: 00:49 General: Appears in no apparent distress. uncomfortable, Behavior is calm, cooperative, cp4 appropriate for age. Pain: Complains of pain in chest Pain does not radiate. Pain currently is 7 out of 10 on a pain scale. EENT: No signs and/or symptoms were reported regarding the EENT system. Neuro: Level of Consciousness is awake, alert, obeys commands, Oriented to person, place, time, situation. Cardiovascular: Patient's skin is warm and dry. Respiratory: Airway is patent Respiratory effort is even, unlabored. GI: No signs and/or symptoms were reported involving the gastrointestinal system. : No signs and/or symptoms were reported regarding the genitourinary system. Derm: No signs and/or symptoms reported regarding the dermatologic system. Musculoskeletal: No signs and/or symptoms reported regarding the musculoskeletal system. 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 - Infectious Disease History:: Denies. - Social history:: Smoking status: Patient denies any tobacco usage or history of. - Family history:: not pertinent. - Hospitalizations: : No recent hospitalization is reported. Screenin:49 [facility] ED Fall Risk Assessment (Adult) History of falling in the last 3 months, al5 including since admission No falls in past 3 months (0 pts) Confusion or Disorientation No (0 pts) Intoxicated or Sedated No (0 pts) Impaired Gait No (0 pts) Mobility Assist Device Used No (0 pt) Altered Elimination No (0 pt) Score/Fall Risk Level 0 - 2 = Low Risk Oriented to surroundings, Maintained a safe environment, Hourly rounding (assess needs \T\ fall precautionary measures) done. Abuse screen: Denies threats or abuse. Denies injuries from another. Nutritional screening: No deficits noted. Tuberculosis screening: No symptoms or risk factors identified. Assessment: 01:51 General: Appears in no apparent distress. Behavior is anxious, crying. Pain: Complains al5 of pain in chest Pain currently is 10 out of 10 on a pain scale. Neuro: Level of Consciousness is awake, alert, obeys commands, Oriented to person, place, time, situation. Cardiovascular: Capillary refill < 3 seconds Patient's skin is warm and dry. Respiratory: Airway is patent Respiratory effort is even, unlabored, Respiratory pattern is regular, symmetrical. GI: Abdomen is non-distended, obese. : No signs and/or symptoms were reported regarding the genitourinary system. EENT: No signs and/or symptoms were reported regarding the EENT system. Derm: Skin is intact, is healthy with good turgor, Skin is pink, warm \T\ dry. normal. Musculoskeletal: No signs and/or symptoms reported regarding the musculoskeletal system. 02:39 Reassessment: No changes from previously documented assessment. Patient and/or family al5 updated on plan of care and expected duration. Pain level reassessed. Patient is alert, oriented x 3, equal unlabored respirations, skin warm/dry/pink. 03:56 Reassessment: Patient appears in no apparent distress at this time. Patient and/or al5 family updated on plan of care and expected duration. Pain level reassessed. Patient is alert, oriented x 3, equal unlabored respirations, skin warm/dry/pink. patient resting comfortably at this time. patient aware of admission. stated to patient will notify when patient gets a room upstairs. 04:28 Reassessment: Patient appears in no apparent distress at this time. No changes from al5 previously documented assessment. Patient and/or family updated on plan of care and expected duration. Pain level reassessed. Patient is alert, oriented x 3, equal unlabored respirations, skin warm/dry/pink. 05:20 Reassessment: Patient appears in no apparent distress at this time. No changes from al5 previously documented assessment. Patient and/or family updated on plan of care and expected duration. Pain level reassessed. Patient is alert, oriented x 3, equal unlabored respirations, skin warm/dry/pink. Vital Signs: 00:46 BP 153 / 100; Pulse 89; Resp 18; Temp 98.1; Pulse Ox 100% ; Pain 7/10; cp4 02:30 BP 123 / 72; Pulse 93; Resp 18; Pulse Ox 96% on R/A; al5 03:00 BP 135 / 73; Pulse 89; Resp 16; Pulse Ox 95% on R/A; al5 03:30 BP 118 / 73; Pulse 82; Resp 14; Pulse Ox 98% on R/A; al5 04:00 BP 113 / 68; Pulse 88; Resp 14; Pulse Ox 93% on R/A; al5 04:30 BP 102 / 63; Pulse 78; Resp 15; Pulse Ox 97% on R/A; al5 05:00 BP 109 / 69; Pulse 78; Resp 15; Pulse Ox 97% on R/A; al5 00:46 Pain Scale: Adult cp4 ED Course: 00:38 Patient arrived in ED. rv1 00:39 Krzysztof Em MD is Attending Physician. rn 00:46 Amelia Olmedo is Primary Nurse. cp4 00:49 Triage completed. cp4 00:49 Arm band placed on right wrist. Patient placed in an exam room, on a stretcher. cp4 01:22 Chest Single View XRAY In Process Unspecified. EDMS 01:40 Basic Metabolic Panel Sent. vc1 01:40 CBC with Diff Sent. vc1 01:40 Hepatic Function Sent. vc1 01:40 Magnesium Sent. vc1 01:40 Protime (+inr) Sent. vc1 01:40 Ptt, Activated Sent. vc1 01:40 Troponin High Sensitivity Sent. vc1 01:49 Patient has correct armband on for positive identification. Bed in low position. Call al5 light in reach. Side rails up X2. Provided Education on: plan of care. 01:50 No provider procedures requiring assistance completed. Inserted saline lock: 22 gauge al5 in right forearm, using aseptic technique. Blood collected. Flushed with 10 mL NS. 01:57 CT Head C Spine In Process Unspecified. EDMS 03:04 Prince Ríos MD is Hospitalizing Provider. rn 05:20 Patient admitted, IV remains in place. al5 Administered Medications: 01:49 Drug: Promethazine IVP 12.5 mg IVP once Route: IVP; Site: left forearm; al5 03:27 Follow up: Response: No adverse reaction; Nausea is decreased al5 03:27 Drug: Aspirin PO 325 mg PO once Route: PO; al5 03:57 Follow up: Response: No adverse reaction al5 Medication: 01:50 VIS not applicable for this client. al5 Outcome: 03:04 Decision to Hospitalize by Provider. rn 05:20 Admitted to Med/surg accompanied by tech, via wheelchair, room 407, with chart, Report al5 called to yassine do 05:20 Condition: good 05:20 Instructed on the need for admit, 05:20 Patient left the ED. al5 Signatures: Dispatcher [employer] EDMS Krzysztof Em MD MD rn Calcote, Vanessa, RN RN vc1 Perla Senior Christina cp4 Iris Gonsales RN RN al5 Corrections: (The following items were deleted from the chart) 01:53 01:51 Pain: Complains of pain in chest Pain currently is 10 out of 10 on a pain scale. al5 al5
--- NOTE | 2024-07-26 03:05 | EDPHYS ---
Physician Documentation [facility] Name: Jazmín Perez Age: 54 yrs Sex: Female : 1970 Arrival Date: 07/26/2024 Time: 00:38 Bed 6 Private MD: ED Physician Krzysztof Em HPI: 07/26 00:49 This 54 yrs old Female presents to ER via Unassigned with complaints of rn syncope. 00:49 The patient has experienced syncope, became unresponsive. Onset: The symptoms/episode rn began/occurred just prior to arrival. Duration: This was a single episode. Associated injury: Head/face:. Current symptoms: headache. The patient has not experienced similar symptoms in the past. Patient reports syncopal episode at home, was found down in laundry room. Family threw water on her to wake her up. EMS reports drowsy and at some point does not respond verbally, awakens to tactile stimulation. Patient reports has been having chest pain for the last 3 days. Evaluated here yesterday and sent home. Workup included CT PE protocol that was negative. Denies fever or recent illness. No trauma. Reports chest tightness and pressure that is nonradiating.. 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 - Infectious Disease History:: Denies. - Social history:: Smoking status: Patient denies any tobacco usage or history of. - Family history:: not pertinent. - Hospitalizations: : No recent hospitalization is reported. ROS: 00:49 Constitutional: Negative for fever, chills, and weight loss, Eyes: Negative for injury, rn pain, redness, and discharge, Cardiovascular: Negative for palpitations, and edema, Respiratory: Negative for cough, wheezing, and pleuritic chest pain, Abdomen/GI: Negative for abdominal pain, nausea, vomiting, diarrhea, and constipation, MS/Extremity: Negative for injury and deformity, Skin: Negative for injury, rash, and discoloration, Neuro: Negative for numbness, tingling, and seizure, Exam: 00:49 Constitutional: This is a well developed, well nourished patient who is awake, alert, rn appears anxious and emotional Head/Face: Normocephalic, atraumatic. ENT: Dry mucous membranes, no stridor Cardiovascular: Regular rate and rhythm 7. No pulse deficits. Respiratory: Speaking full sentences, unlabored. No increased work of breathing, no retractions or nasal flaring. Abdomen/GI: Soft, non-tender Back: No spinal tenderness. Skin: Warm, dry MS/ Extremity: Pulses equal, no cyanosis. Neurovascular intact. Full, normal range of motion. Equal circumference. Neuro: Awake and alert, GCS 15, oriented to person, place, time, and situation. Cranial nerves II-XII grossly intact. Motor strength 5/5 in all extremities. Sensory grossly intact. 01:23 ECG was reviewed by the Attending Physician. rn Vital Signs: 00:46 BP 153 / 100; Pulse 89; Resp 18; Temp 98.1; Pulse Ox 100% ; Pain 7/10; cp4 02:30 BP 123 / 72; Pulse 93; Resp 18; Pulse Ox 96% on R/A; al5 03:00 BP 135 / 73; Pulse 89; Resp 16; Pulse Ox 95% on R/A; al5 03:30 BP 118 / 73; Pulse 82; Resp 14; Pulse Ox 98% on R/A; al5 04:00 BP 113 / 68; Pulse 88; Resp 14; Pulse Ox 93% on R/A; al5 04:30 BP 102 / 63; Pulse 78; Resp 15; Pulse Ox 97% on R/A; al5 05:00 BP 109 / 69; Pulse 78; Resp 15; Pulse Ox 97% on R/A; al5 00:46 Pain Scale: Adult cp4 MDM: 00:39 Medical Screening Exam initiated rn 03:02 Differential Diagnosis: cardiac arrhythmia, cerebrovascular accident, idiopathic rn syncope, vasovagal episode, Myocardial infarction. Data reviewed: vital signs, nurses notes, lab test result(s), EKG, radiologic studies, CT scan, plain films, and as a result, I will admit patient. Consideration of Admission/Observation Patient was admitted/placed on observation. Escalation of care including admission/observation considered. Counseling: I had a detailed discussion with the patient and/or guardian regarding the historical points, exam findings, and any diagnostic results supporting the discharge/admit diagnosis, lab results, radiology results, the need for further work-up and treatment in the hospital. ED course: Patient with ongoing chest pressure and tightness. Troponin negative. Troponin negative yesterday along with CT PE protocol without acute findings. CT head today negative as well without changes from previous CT. Will admit to hospitalist service for further cardiac workup given 3 days of worsening chest pain and now syncope, found down on ground by family.. 07/26 00:46 Order name: Basic Metabolic Panel; Complete Time: 02:35 rn 07/26 00:46 Order name: CBC with Diff; Complete Time: 02:35 rn 07/26 00:46 Order name: Hepatic Function; Complete Time: 02:35 07/26 00:46 Order name: Magnesium; Complete Time: 02:35 07/26 00:46 Order name: Protime (+inr); Complete Time: 02:35 07/26 00:46 Order name: Ptt, Activated; Complete Time: 02:35 rn 07/26 00:46 Order name: Troponin High Sensitivity; Complete Time: 02:35 rn 07/26 00:46 Order name: Urinalysis w/ reflexes 07/26 03:44 Order name: Basic Metabolic Panel [facility] 07/26 03:44 Order name: Basic Metabolic Panel [facility] 07/26 03:44 Order name: CBC with Automated Diff [facility]ND 07/26 03:44 Order name: CBC with Automated Diff [facility] 07/26 03:44 Order name: Lipid Profile [facility] 07/26 03:44 Order name: Lipid Profile [facility] 07/26 03:44 Order name: Troponin High Sensitivity [facility] 07/26 03:44 Order name: Troponin High Sensitivity [facility] 07/26 03:44 Order name: Troponin High Sensitivity [facility] 07/26 03:44 Order name: Troponin High Sensitivity [facility] 07/26 03:44 Order name: Troponin High Sensitivity [facility] 07/26 03:45 Order name: Hemoglobin A1c [facility] 07/26 03:45 Order name: NT PRO-BNP [facility] 07/26 03:57 Order name: Magnesium [facility] 07/26 03:57 Order name: Phosphorus [facility]ND 07/26 00:46 Order name: CT Head C Spine 07/26 00:46 Order name: Chest Single View XRAY rn 07/26 03:44 Order name: Echo with Doppler EDMS 07/26 03:51 Order name: ERT ORTHOSTATIC V/S EDMS 07/26 00:46 Order name: EKG; Complete Time: 00:47 rn 07/26 00:46 Order name: Cardiac monitoring; Complete Time: 01:10 rn 07/26 00:46 Order name: EKG - Nurse/Tech; Complete Time: :10 rn 07/26 00:46 Order name: IV Saline Lock; Complete Time: :40 rn 07/26 00:46 Order name: Labs collected and sent; Complete Time: :40 rn 07/26 00:46 Order name: O2 Per Protocol; Complete Time: : rn 07/26 00:46 Order name: O2 Sat Monitoring; Complete Time: : rn EC:23 Rate is 80 beats/min. Rhythm is regular. QRS [place] is Normal. [place] interval is normal. QRS rn interval is normal. QT interval is normal. No Q waves. T waves are Normal. No ST changes noted. Clinical impression: NSR w/ Non-specific ST/T Changes. Interpreted by me. Reviewed by me. Administered Medications: 01:49 Drug: Promethazine IVP 12.5 mg IVP once Route: IVP; Site: left forearm; al5 03:27 Follow up: Response: No adverse reaction; Nausea is decreased al5 03:27 Drug: Aspirin PO 325 mg PO once Route: PO; al5 03:57 Follow up: Response: No adverse reaction al5 Disposition Summary: 07/26/24 03:04 Hospitalization Ordered Notes: Hospitalization Status: Observation rn Provider: Prince [place] rn Location: Telemetry/MedSurg (observation) rn Condition: Stable rn Problem: new rn Symptoms: have improved rn Bed/Room Type: Standard rn Room Assignment: 407(07/26/24 04:12) vc1 Diagnosis - Chest pain, unspecified rn - Syncope rn Forms: - Medication Reconciliation Form rn - SBAR form rn - Leadership Thank You Letter rn Signatures: Dispatcher [employer] EDKrzysztof Branch MD MD rn Calcote, Vanessa, RN RN vc1 Amelia Olmedo cp4 Iris Gonsales RN RN al5 Corrections: (The following items were deleted from the chart) 00:47 00:47 BASIC METABOLIC PANEL+C.LAB.BRZ ordered. EDMS EDMS 00:47 00:47 CBC+H.LAB.BRZ ordered. EDMS EDMS : 00:47 HEPATIC FUNCTION+C.LAB.BRZ ordered. EDMS EDMS : 00:47 MAGNESIUM+C.LAB.BRZ ordered. EDMS EDMS : 00:47 PROTIME (+INR)+COAG.LAB.BRZ ordered. EDMS EDMS : 00:47 PTT, ACTIVATED+COAG.LAB.BRZ ordered. EDMS EDMS 00: 00:47 Troponin High Sensitivity+C.LAB.BRZ ordered. EDMS EDMS :47 00:47 Urinalysis+U.LAB.BRZ ordered. EDMS EDMS 04:12 03:04 rn vc1
[2024-07-26] MEDS ORDERED: ASPIRIN 325 MG TAB ONE (03:25)
[2024-07-26] MEDS ORDERED: NITROGLYCERIN 0.4 MG/TAB SL PRN (03:40)
--- NOTE | 2024-07-26 03:40 | RAD REPORT ---
PROCEDURE: CT Head and Cervical Spine Without Intravenous Contrast CLINICAL INDICATION: The patient is 54 years old and is Female; Syncope, head injury. TECHNIQUE: Axial computed tomography images of the head/brain and cervical spine without intravenous contrast. Sagittal and coronal reformatted images were created and reviewed. This CT exam was performed using one or more of the following dose reduction techniques: automated exposure control, adjustmen t of the mA and/or kV according to patient size, and/or use of iterative reconstruction technique. COMPARISON: CT Head 12/12/2022. FINDINGS: BRAIN: No extra-axial fluid collection. No intracranial hemorrhage. No focal [place]-white matter differentiation abnormality. MIDLINE SHIFT: No midline shift. VENTRICLES: Unremarkable No ventriculomegaly. SKULL: See below. SINUSES: Unremarkable as visualized. No acute sinusitis. MASTOID AIR CELLS: Unremarkable as visualized. No mastoid effusion. SELLA: Expanded, "Empty sella" appearance of the sella turcica with thinning of the pituitary paren chyma, unchanged from reference. Nonspecific, but in the appropriate clinical setting, this could reflect intracranial hypertension (such as idiopathic intracranial hypertension). VERTEBRAE: Multilevel cervical spondylosis. Reversal of the normal lordosis of the cervical spine as the patient is positioned, centered at the C4 vertebral level. Appearance is nonspecific and could be positional or seen with muscular strain or spasm. No acute fracture or acute vertebral body height loss. No significant subluxation. DISCS/SPINAL CANAL/NEURAL FORAMINA: No acute findings. No transtentorial herniation. No significant bony spinal canal stenosis. OTHER BONES/JOINTS: Unremarkable as visualized. No fracture of the calvarium or visualized facial bones. SOFT TISSUES: Unremarkable No abnormal prevertebral soft tissue swelling. OTHER FINDINGS: Dens is intact. No dislocation. Craniocervical orientation is normal. IMPRESSION: 1. No acute intracranial abnormality. No fracture of the calvarium or visualized facial bones. 2. No acute osseous abnormality of the cervical spine. 3. Expanded, "Empty sella" appearance of the sella turcica with thinning of the pituitary parenchym a, unchanged from reference. Nonspecific, but in the appropriate clinical setting, this could reflect intracranial hypertension (such as idiopathic intracranial hypertension). Clinical correlatio n recommended. Electronically signed by: Esau Saavedra MD 07/26/2024 02:44 AM [facility] Due to temporary technical issues with the PACS/[employer] reporting system, reports are being americo d by the in-house radiologist without review as a courtesy to ensure prompt reporting the interpreting radiologist is fully responsible for the content of the report. Transcribed Date/Time: 07/26/2024 3:40 AM
--- NOTE | 2024-07-26 03:49 | P.HP ---
Certification for Inpatient Patient admitted to: Observation With expected LOS: <2 Midnights Practitioner: I am a practitioner with admitting privileges, knowledge of patient current condition, hospital course, and medical plan of care. Services: Services provided to patient in accordance with Admission requirements found in Title 42 Section 412.3 of the Code of Federal Regulations Patient History Date of Service: 07/26/24 Reason for admission: Chest pain and syncope History of Present Illness: Patient is a 54-year-old female with known past medical history of diab etes mellitus, morbid obesity and rheumatoid arthritis. She has recently been started on Mounjaro. She presented to the ER for evaluation of chest pain. Patient had a recurrent chest pain earlier today. She also syncopized and was found down in the laundry room. The duration of her loss of consciousness is unknown. She arrived in the ER hemodynamically stable. Her EKG revealed normal sinus rhythm without signs of ischemic changes. Her first troponin was negative. Patient had a CT angio of the chest which ruled out pulmonary embolism. Allergies codeine Adverse Reaction (Mild, Verified 11/28/23 08:56) Nausea/Vomiting Home Medications: Celecoxib 200 mg PO BID 11/28/23 Cyclobenzaprine [Flexeril*] 10 mg PO BID 11/28/23 Diclofenac Sodium [Diclofenac Sodium ER] 100 mg PO DAILY 11/28/23 Duloxetine HCl 30 mg PO DAILY 11/28/23 Fesoterodine Fumarate [Fesoterodine Fumarate ER] 8 mg PO DAILY 11/28/23 Gabapentin 800 mg PO TID 11/28/23 Hydrocodone 5/APAP 325 [Kingsley 5/325] 1 tab PO Q6H PRN #20 tab 05/19/24 Ondansetron [Zofran] 4 mg PO Q6H PRN #20 tab 05/19/24 - Past Medical/Surgical History Diabetic: Yes -: diabetes -: rheumatoid arthritis -: osteoarthritis -: BLADDER SPASMS -: left total hip replacement 2022 -: right rotator cuff repair Psychosocial/ Personal History: Patient lives at home with her , family - Family History Mother -: Diabetes, Other (see notes) Notes: osteoarthritis Father -: Diabetes - Social History Alcohol use: No CD- Drugs: No Caffeine use: Yes Physical Examination - Physical Exam General: Other ( morbidly obese and somnolent) HEENT: Atraumatic Respiratory: Clear to auscultation bilaterally, Normal air movement, Other Cardiovascular: No edema, Normal pulses, Regular rate/rhythm, Normal S1 S2, Other (No murmur heard) Neurological: Other (Unable to assess as patient was falling asleep during my evaluation) - Studies Laboratory Data (last 24 hrs) 07/26/24 07/26/24 07/26/24 01:36 01:36 01:36 WBC 7.30 Hgb 10.7 L Hct 34.2 L Plt Count 283 PT 11.3 INR 1.01 APTT 28.0 Sodium 141 Potassium 3.3 L BUN 13 Creatinine 0.74 Glucose 89 Magnesium 1.8 Total Bilirubin 0.3 AST 13 L ALT 15 Alkaline Phosphatase 131 H Assessment and Plan - Problems (Diagnosis) (1) Syncope Current Visit: Yes Status: Acute (2) Morbid obesity Current Visit: Yes Status: Acute (3) Anemia Current Visit: No Status: Acute (4) Atypical chest pain Current Visit: No Status: Acute (5) DM2 (diabetes mellitus, type 2) Current Visit: No Status: Acute Qualifiers: (6) Osteoarthritis Current Visit: No Status: Acute - Plan Assessment Patient is a 54-year-old female who is being admitted for recurrent chest pain complicated by syncope. Initial workup in the ER included a troponin, EKG and CT angio of the chest. Pulmonary embolism was ruled out. First troponin was negative. EKG shows normal sinus rhythm without ischemic changes. Patient is hemodynamically stable. Chest pain Syncope Hypokalemia Morbid obesity Type 2 diabetes mellitus Rheumatoid arthritis Plan: Will admit under observation with telemetry Start patient on aspirin and atorvastatin Will obtain a 2D echo Orthostatic vitals when patient is more awake DVT ppx with lovenox Cardiology consulted for recurrent chest pain Follow lipid panel and HbA1c - Advance Directives Does patient have a Living Will: No Does patient have a Durable POA for Healthcare: No
[2024-07-26] MEDS: KCL 20 MEQ/100 mL IVPB 20 MEQ/100 ML BAG IV SCH (04:00)
[2024-07-26 05:31] VITALS: BMI 39.4
[2024-07-26 05:46] VITALS: O2SAT 96
--- NOTE | 2024-07-26 05:47 | RAD REPORT ---
EXAM: XR Chest, 1 View CLINICAL HISTORY: The patient is 54 years old and is Female; syncope TECHNIQUE: Frontal view of the chest. COMPARISON: No relevant prior studies available. FINDINGS: LUNGS: Unremarkable. No consolidation. PLEURAL SPACE: Unremarkable. No pneumothorax. HEART: Unremarkable. No cardiomegaly. MEDIASTINUM: Unremarkable. Normal mediastinal contour. BONES/JOINTS: Unremarkable. No acute fracture. UPPER ABDOMEN: Unremarkable as visualized. IMPRESSION: No acute cardiopulmonary process. Electronically signed by: Nikki Morales MD 07/26/2024 01:42 AM [facility] Due to temporary technical issues with the PACS/[employer] reporting system, reports are being americo d by the in-house radiologist without review as a courtesy to ensure prompt reporting the interpreting radiologist is fully responsible for the content of the report. Transcribed Date/Time: 07/26/2024 5:47 AM
[2024-07-26] MEDS: NA CHLORIDE 0.9% 500 ML ONE (06:11)
[2024-07-26 07:31] LABS: Magnesium 1.9 mg/dL (1.6-2.4); Phosphorus 3.7 mg/dL (2.5-4.9)
[2024-07-26 07:36] LABS: Troponin High Sensitivity 5.2 pg/mL (<58.9)
[2024-07-26] MEDS: ENOXAPARIN 40 MG/0.4 ML SQ SCH (08:29)
[2024-07-26] MEDS: ASPIRIN EC 81 MG TAB PO SCH (08:29)
[2024-07-26] MEDS: ALPRAZOLAM 0.5 MG TABLET PO ONE (08:29)
--- NOTE | 2024-07-26 09:44 | P.CNS ---
Date of Consult: 07/26/24 Chief Complaint: Chest pain and syncope History of Present Illness: Patient presented with chest pain and syncope after having an argument with family, report sharp pain, started even friday and happened again yesterday, across chest associated with arm pain, no other cardiac symptoms. Allergies codeine Adverse Reaction (Mild, Verified 11/28/23 08:56) Nausea/Vomiting Home medications list reviewed: Yes Home Medications: Celecoxib 200 mg PO BID 11/28/23 Cyclobenzaprine [Flexeril*] 10 mg PO BID 11/28/23 Diclofenac Sodium [Diclofenac Sodium ER] 100 mg PO DAILY 11/28/23 Duloxetine HCl 30 mg PO DAILY 11/28/23 Fesoterodine Fumarate [Fesoterodine Fumarate ER] 8 mg PO DAILY 11/28/23 Gabapentin 800 mg PO TID 11/28/23 Hydrocodone 5/APAP 325 [Yulan 5/325] 1 tab PO Q6H PRN #20 tab 05/19/24 Ondansetron [Zofran] 4 mg PO Q6H PRN #20 tab 05/19/24 - Past Medical/Surgical History Diabetic: Yes -: diabetes -: rheumatoid arthritis -: osteoarthritis -: BLADDER SPASMS -: left total hip replacement 2022 -: right rotator cuff repair Psychosocial/ Personal History: Patient lives at home with her , family - Family History Mother Medical History: Diabetes, Other (see notes) Notes: osteoarthritis Father Medical History: Diabetes - Social History Smoking Status: Current every day smoker Alcohol use: No CD- Drugs: No Caffeine use: Yes Place of Residence: Home Review of Systems 10-point ROS is otherwise unremarkable Physical Examination Temp Pulse Resp BP Pulse Ox 83 F L 78 16 122/70 100 07/26/24 08:00 07/26/24 08:00 07/26/24 08:00 07/26/24 08:00 07/26/24 08:00 General: Alert, In no apparent distress HEENT: Atraumatic, PERRLA, Mucous membr. moist/pink, EOMI, Sclerae nonicteric Neck: Supple, 2+ carotid pulse no bruit, No LAD, Without JVD or thyroid abnormality Respiratory: Clear to auscultation bilaterally, Normal air movement Cardiovascular: Regular rate/rhythm, Normal S1 S2 Gastrointestinal: Normal bowel sounds, No tenderness Musculoskeletal: No tenderness Integumentary: No rashes Neurological: Normal gait, Normal speech, Normal tone, Normal affect Lymphatics: No axilla or inguinal lymphadenopathy Laboratory Data (last 24 hrs) 07/26/24 07/26/24 07/26/24 01:36 01:36 01:36 WBC 7.30 Hgb 10.7 L Hct 34.2 L Plt Count 283 PT 11.3 INR 1.01 APTT 28.0 Sodium 141 Potassium 3.3 L BUN 13 Creatinine 0.74 Glucose 89 Magnesium 1.8 Total Bilirubin 0.3 AST 13 L ALT 15 Alkaline Phosphatase 131 H - Problems (1) Atypical chest pain Current Visit: No Status: Acute Plan: Patient chest pain is atypical, cardiac enzymes are negative and patient had a recent coronary angiogram that i personally reviewed and shows normal coronaries. No further cardiac work up needed.
[2024-07-26] MEDS ORDERED: ALPRAZOLAM 0.5 MG TABLET PO PRN (10:41)
[2024-07-26 10:44] LABS: Specific Gravity 1.012 (1.005-1.030); Sqamous Epithelial <5 /HPF (None Seen); Urine Bacteria None Seen /HPF (<20); Urine Bilirubin NEGATIVE (Negative); Urine Blood 1+ (Negative); Urine Clarity Clear (Clear); Urine Color Light-Yellow (Yellow); Urine Culture Reflex Order NOT NEEDED; Urine Glucose NEGATIVE (Negative); Urine Ketones NEGATIVE (Negative); Urine Microscopic Reflex YN ORDER UMIC; Urine Mucus Slight /HPF (None Seen); Urine Nitrite NEGATIVE (Negative); Urine Protein NEGATIVE (Negative); Urine RBC <5 /HPF (None Seen); Urine Urobilinogen Normal (Normal); Urine WBC <5 /HPF (<5); Urine pH 5.5 (5.0-7.0)
--- NOTE | 2024-07-26 11:05 | EKG ---
Test Date: 2024-07-26 Test Time: 00:58:12 [employer] Admin: ELAINE MEASUREMENT RESULTS: Intervals: Rate: 80 UT: 180 QRSD: 100 QT: 390 QTc: 449 Busy: P: 57 UT: 180 QRS: 69 T: 73 INTERPRETIVE STATEMENTS: Normal sinus rhythm Nonspecific T wave abnormality Abnormal ECG Compared to ECG 07/24/2024 21:23:31 Prolonged QT interval no longer present T-wave abnormality still present Electronically Signed On 07-26-24 11:05:06 [employer] by Sonu Duran
[2024-07-26] MEDS: FENTANYL CITR 100 MCG/2 ML IV PRN (11:37)
[2024-07-26 17:03] VITALS: BP 108/63; TEMP 98.3
[2024-07-26] MEDS ORDERED: ATORVASTATIN 80 MG TAB PO SCH (21:00)
== END 2024-07-26 18:37 | disposition home or self-care (01) ==
LOC: ER 00:38 → ERHOLD 03:40 → 4TH 05:02
PROVIDERS: ADMIT Internal Medicine; ATTEND Hospitalist
DX: R07.89 Other chest pain (principal); R55 Syncope and collapse; E11.9 Type 2 diabetes mellitus without complications; E66.01 Morbid (severe) obesity due to excess calories; M06.9 Rheumatoid arthritis, unspecified; D64.9 Anemia, unspecified; E87.6 Hypokalemia; Z88.5 Allergy status to narcotic agent; Z68.39 Body mass index [BMI] 39.0-39.9, adult
CPT/HCPCS: 93005; 85025; 81001; 80048; 36415; 83735 ×2; 84100; 85610; 80061; 82947 ×3; 80076; 85730; 83036; 84484 ×3; 83880; 70450; 72125; 71045; 96374; 99285; J2550; J3480; J1650; J3010; J7040; G0378 ×2

== ENCOUNTER 2024-08-05 12:44 | Emergency (ER) | payer OTHER ==
--- OUTSIDE RECORDS SUMMARY | 2024-08-05 12:50 | XMS REPORT | Continuity of Care Document ---
Author Name Unknown Address [address] [facility]. [address] [place] [address] [facility] thconnect Address [address] [facility] [address] [place] [address] Care Team Providers Care Artist Model Name Role Phone ESTEFANY EVANS Primary Care Physician Unavaila Estefany Bergman Attending Clinician Unavailable KAYLA LUTZ Attending Clinician UnavailLACEY Guzman Attending Clinician Unava ilBREE Pelaez Attending Clinician Unavailable Doctor Unassigned, [place] Attending Clinician U michaela Espinoza RN, Veronika Serra Attending Clinician Unavail able ANNAMARIA BARKER Attending Clinician Unavailable Yony GOMEZ, Marylou Sanabria Attending Clinician [phone] Annamaria Barker DO Attending Clinician [phone] Billy WOODSON, Bree Attending Clinician [phone] Kayla Lutz MD Attending Clinician [phone] Bernice Amaya Attending Clinician [phone] PEDRO LUIS RUSHING Attending Clinician Unavailable PDERO LUIS RUSHING Attending Clinician Unavailable Pob, [facility] Main Attending Clinician UnavailBERNICE Conrad Attending Clinician Unavailable Chelo Cornejo RN Attending Clinician Unavailab carmelo Clemons MD, Brodie Evangelista Attending Clinician [phone] FILIPE WIGGINS Attending Clinician Unavailable HEMA CLAYTONALMA PALM Attending Clinician Unavail able Bharath Padgett CRNA Attending Clinician [phone] Oliver Hunt MD Attending Clinician [phone] Only, Adc Test Attending Clinician Unavailable RENÉE AGUILERA Attending Clinician Unavail able RENÉE AGUILERA Attending Clinician Unavail able ANDREW RESENDIZ Attending Clinician Unavail able Nurse, Adc Pob Immunization Attending Clinician Unavailable Andrew Resendiz DO Attending Clinician Jonas Barker MD Attending Clinician Calin Lazar DO Attending Clinician [phone] KAYLA LUTZ Admitting Clinician UnavailANNAMARIA Amado Admitting Clinician Unavailable Annamaria Barker DO Admitting Clinician [phone] Kayla Lutz MD Admitting Clinician [phone] BERNICE COLUNGA Admitting Clinician Unavailable Payers Payer Name Policy Type Policy Number Effective Date Expirati on Date Source [facility] [id number] 2021 00:00:00 [facility] HEALTH CHOICE [id number] 2015 00:00:00 [facility] [id number] 2020 00:00:00 [facility] DUAL COMP CHOICE PPO DSNP [id number] 2023 00:00:00 Amb[facility] from [facility] [id number] [facility] HIM AMBETTER FROM [facility] [id number] 2019 00:00:00 Ambetter from [facility] [id number] [facility] Ambetter from [facility] [id number] [facility] Ambetter from [facility] [id number] [facility] Problems Condition Name Condition Details Condition Category Status Onset Date Resolution Date Last Treatment Date Treating Clinician Comments Source Abnormal nuclear cardiac imaging test Abnormal nuclear cardiac imaging test Disease Active 08-30 00:00: 00 [facility] Chest pain, unspecifie d type Chest pain, unspecifie d type Disease Active 08-29 00:00: 00 [facility] Right lower quadrant abdominal pain Right lower quadrant abdominal pain Disease Active 2021-08 00:00: 00 [facility] Morbid obesity with body mass index of 40.0-49.9 Morbid obesity with body mass index of 40.0-49.9 Disease Active 01-15 00:00: 00 [facility] Arthritis of left hip Arthritis of left hip Disease Active 01-04 00:00: 00 Overview: Formattin g of this note might be different from the original. 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 mmatories (nsaid) Disease Active 03-31 00:00: 00 [facility] Other iron deficiency anemia Other iron deficiency anemia Disease Active 03-31 00:00: 00 [facility] Subcutaneo us nodules Subcutaneo us nodules Disease Active 03-31 00:00: 00 [facility] Bilateral knee pain Bilateral knee pain Disease Active 10-10 00:00: 00 [facility] Bilateral knee pain Bilateral knee pain Disease Active 10-10 00:00: 00 [facility] [id number] Pain, joint, hand, left Problem Active [facility] [id number] Primary osteoarthr itis of left hip Problem Active [facility] [id number] Trigger finger, right ring finger Problem Active [facility] [id number] Pain, joint, hand, right Problem Active [facility] [id number] Pain, joint, hip, right Problem [facility] [id number] Arthritis of right hip Problem [facility] [id number] Primary osteoarthr itis of right hip Problem [facility] [id number] Trochanter ic bursitis of left hip Problem [facility] [id number] Status post total replacemen t of left hip Problem [facility] Allergies, Adverse Reactions, Alerts Allergy Name Allergy Type Status Severity Reaction(s) Onset Date Inactive Date Treating Clinician Comments Source Codeine Propensi ty to adverse reaction s Active Nausea And Vomiting 09-07 00:00: 00 [facility] CODEINE DRUG INGREDI Active N/V 09-07 00:00: 00 [facility] codeine codeine Active Unknown [facility] Social History Social Habit Start Date Stop Date Quantity Comments Source History of Tobacco Use [facility] Sex Assigned At [facility] History SDOH Alcohol Std Drinks [facility] History SDOH Alcohol Binge [facility] Gender identity [facility] Sexual orientation [facility] Exposure to SARS-CoV-2 (event) 2022-12-17 00:00:00 2022-12-27 08:47:00 Not sure [facility] History of Social function 2022-09-23 00:00:00 2022-09-23 00:00:00 [facility] History SDOH Food Worry 2022-06-13 00:00:00 2022-06-13 00:00:00 1 [facility] History SDOH Food Scarcity 2022-06-13 00:00:00 2022-06-13 00:00:00 1 [facility] History SDOH Transport Med 2022-06-13 00:00:00 2022-06-13 00:00:00 2 [facility] History SDOH Transport Non-Med 2022-06-13 00:00:00 2022-06-13 00:00:00 2 [facility] Tobacco use and exposure 2022-06-11 00:00:00 2022-06-11 00:00:00 Smokeless tobacco non-user [facility] Education - What is the highest level of school you have completed or the highest degree you have received? 2022-06-10 00:00:00 2022-06-10 00:00:00 Some college, no degree [facility] Alcohol intake 2020-12-18 00:00:00 2020-12-18 00:00:00 Lifetime non-drinker (finding) [facility] History SDOH Alcohol Frequency 2020-12-18 00:00:00 2020-12-18 00:00:00 1 [facility] Smoking Status Start Date Stop Date Source Never smoked tobacco [facility] Medications Ordered Medication Name Filled Medication Name Start Date Stop Date Current Medication? Ordering Clinician Indication Dosage Frequency Signature (SIG) Comments Components Source amitriptyli ne (ELAVIL) tablet 150 mg 08-30 15:00: 00 Yes 150mg 150 mg, Oral, DAILY, First dose on 08/30/23 at 0900, Until Discontinu ed, Routine [facility] enoxaparin (LOVENOX) injection 40 mg 08-30 15:00: 00 Yes 40mg 40 mg, Subcutaneo us, DAILY, First dose on 08/30/23 at 0900, Until Discontinu ed, Routine [facility] amitriptyli ne 150 mg tablet 08-30 14:20: 33 Yes amitriptyl ine 150 mg tablet Take 1 tablet every day by oral route for 30 days. [facility] semaglutide (OZEMPIC) 1 mg/dose (4 mg/3 mL) PnIj 08-30 14:20: 33 Yes 1.25mg inject 1.25 mg under the skin weekly. [facility] Sliding Scale Insulin - Lispro (HumaLOG) 08-30 03:00: 00 Yes Subcutaneo us, TID MEALS+HS, First dose on Fri08/29/23 at 2100, Until Discontinu ed, Routine [facility] pantoprazol e (PROTONIX) injection 40 mg 08-30 02:00: 00 Yes 40mg 40 mg, Slow IV Push, Q24H, First dose on Fri08/29/23 at 2000, Until Discontinu ed [facility] NaCl 0.9% (NS) IV infusion 1,000 mL 08-30 01:15: 00 Yes 1000mL at 75 mL/hr, IV Infusion, CONTINUOUS , Starting on Fri08/29/23 at 1915, Until Discontinu ed, Routine [facility] iopamidol (ISOVUE 370-500 mL) injection 75 mL 08-30 00:15: 00 08-30 00:15 :00 No [id number] 75mL 75 mL, Intravenou s, ONCE, 1 dose, On Fri08/29/23 at 1815, Routine [facility] proMETHazin e (PHENERGAN) 12.5 mg in NS 50 mL IV piggyback (CNR) 08-30 00:01: 07 Yes 12.5mg 12.5 mg, IV Piggyback, at 200 mL/hr Administer over 15 Minutes, Q4HPRN, Starting on Fri08/29/23 at 1801, Until Discontinu ed, Routine, N/V unresponsi ve to Ondansetro n [facility] ondansetron (ZOFRAN (PF)) injection 4 mg 08-30 00:00: 10 Yes 4mg 4 mg, Slow IV Push, Q6HPRN, Starting on Fri08/29/23 at 1800, Until Discontinu ed, Routine, Nausea and Vomiting (N/V) [facility] glucagon (GLUCAGEN DIAGNOSTIC KIT) injection 1 mg 08-29 23:59: 42 Yes 1mg 1 mg, Intramuscu lar, PRN, Starting on Fri08/29/23 at 1759, Until Discontinu ed, KUNAL, Blood Glucose < or = 70 mg/dL and patient is NPO, unable to swallow or has mental changes. [facility] dextrose 50 % in water (D50W) injection 25 mL 08-29 23:59: 42 Yes 25mL 25 mL, Slow IV Push, PRN, Starting on Fri08/29/23 at 1759, Until Discontinu ed, KUNAL, Blood Glucose < or = 70 mg/dL and patient is NPO, unable to swallow or has mental status changes. [facility] FENTanyl PF (SUBLIMAZE (PF)) injection 25 mcg 08-29 23:59: 16 08-30 23:58 :16 No 25ug 25 mcg, Slow IV Push, Q3HPRN, Starting on Fri08/29/23 at 1759, Until 08/30/23 at 1758, Routine, Pain (scale 7-10) [facility] acetaminoph en (TYLENOL) tablet 650 mg 08-29 23:59: 10 Yes 650mg 650 mg, Oral, Q6HPRN, Starting on Fri08/29/23 at 1759, Until Discontinu ed, Routine, Pain (scale 1-3) [facility] haloperidol lactate (HALDOL) injection 2.5 mg 08-29 22:30: 00 08-30 00:08 :00 No 2.5mg 2.5 mg, Intravenou s, ONCE, 1 dose, On Fri08/29/23 at 1630, STAT [facility] morpHINE (4 mg/mL) injection 4 mg 08-29 21:00: 00 08-29 20:55 :00 No 4mg 4 mg, Slow IV Push, ONCE, 1 dose, On Fri08/29/23 at 1500, STAT [facility] Fesoterodin e (TOVIAZ) 4 mg tablet 08-29 20:23: 58 08-29 00:00 :00 No Toviaz 4 mg tablet,ext ended release [facility] DULoxetine 60 mg capsule 08-29 20:23: 58 08-29 00:00 :00 No 60mg Take 1 capsule by mouth in the morning. [facility] proMETHazin e (PHENERGAN) 12.5 mg in NS 50 mL IV piggyback (CNR) 08-29 20:00: 00 08-29 20:48 :00 No 12.5mg 12.5 mg, IV Piggyback, at 200 mL/hr Administer over 15 Minutes, ONCE, 1 dose, On Fri08/29/23 at 1400, KUNAL [facility] iopamidol (ISOVUE 370-500 mL) injection 100 mL 08-29 20:00: 00 08-29 20:00 :00 No [id number] 100mL 100 mL, Intravenou s, ONCE, 1 dose, On Fri08/29/23 at 1400, Routine [facility] morpHINE (4 mg/mL) injection 4 mg 08-29 18:30: 00 08-29 18:45 :00 No 4mg 4 mg, Slow IV Push, ONCE, 1 dose, On Fri08/29/23 at 1230, STAT [facility] ketorolac (TORADOL) injection 30 mg 08-29 17:45: 00 08-29 16:48 :00 No 30mg 30 mg, Slow IV Push, ONCE, 1 dose, On Fri08/29/23 at 1145, Routine [facility] NaCl 0.9% (NS) bolus infusion 1,000 mL 08-29 17:30: 00 08-29 17:42 :00 No 1000mL at 999 mL/hr, 1,000 mL, IV Infusion, ONCE, 1 dose, On Fri08/29/23 at 1130, KUNAL [facility] famotidine (PEPCID (PF)) injection 20 mg 08-29 16:45: 00 08-29 16:45 :00 No 20mg 20 mg, Slow IV Push, ONCE, 1 dose, On Fri08/29/23 at 1045, [facility] ondansetron (ZOFRAN (PF)) injection 4 mg 08-29 16:45: 00 08-29 16:44 :00 No 4mg 4 mg, Slow IV Push, ONCE, 1 dose, On Fri08/29/23 at 1045, [facility] Xarelto 10 MG Xarelto 10 MG 05 00:00: 00 No 1{table t} QD Xarelto 10 MG Lidocaine Lidocaine 01-13 00:00: 00 No 5mL [facility] Kenalog (Triamcinol one) Kenalog (Triamcinol one) 01-13 00:00: 00 No 2mL [facility] atorvastati n 10 mg tablet 12-27 09:06: 57 12-27 00:00 :00 No 10mg Take 1 tablet by mouth in the morning. [facility] amitriptyli ne 150 mg tablet 12-27 08:56: 31 Yes amitriptyl ine 150 mg tablet Take 1 tablet every day by oral route for 30 days. [facility] Fesoterodin e (TOVIAZ) 4 mg tablet 12-27 08:56: 31 Yes Toviaz 4 mg tablet,ext ended release [facility] DULoxetine 60 mg capsule 12-27 08:56: 31 Yes 60mg Take 1 capsule by mouth in the morning. [facility] semaglutide (OZEMPIC) 1 mg/dose (4 mg/3 mL) PnIj 12-27 08:56: 31 Yes 1.25mg inject 1.25 mg under the skin weekly. [facility] traMADoL 50 mg tablet 12-21 00:00: 00 08-29 00:00 :00 No TAKE 1 TABLET BY MOUTH EVERY 8 HOURS NEEDED FOR 10 DAYS [facility] FENTanyl PF (SUBLIMAZE (PF)) injection 25 mcg 09-23 14:14: 37 Yes 25ug 25 mcg, Slow IV Push, Q5MIN PRN, 4 doses, Starting on Fri09/23/22 at 0814, Until Discontinu ed, Routine, Pain (scale 4-6), PACU [facility] ondansetron (ZOFRAN (PF)) injection 4 mg 09-23 14:14: 37 09-23 14:16 :00 No 4mg 4 mg, Slow IV Push, PRN, 1 dose, Starting on Fri09/23/22 at 0814, Until Fri09/23/22 at 0816, Routine, Nausea and Vomiting (N/V), PACU [facility] triamcinolo ne acetonide (KENALOG) injection 09-23 13:55: 00 09-23 17:13 :49 No PRN, Starting on Fri09/23/22 at 0755, Until Fri09/23/22 at 1113, Routine, Intra-op [facility] bupivacaine (preserv free) 0.5% (SENSORCAIN E MPF) 0.5 % (5 mg/mL) injection 09-23 13:55: 00 09-23 17:13 :49 No PRN, Starting on Fri09/23/22 at 0755, Until Fri09/23/22 at 1113, Routine, Intra-op [facility] triamcinolo ne acetonide (KENALOG) injection 09-23 13:53: 00 09-23 17:13 :49 No PRN, Starting on Fri09/23/22 at 0753, Until Fri09/23/22 at 1113, Routine, Intra-op [facility] bupivacaine (preserv free) 0.5% (SENSORCAIN E MPF) 0.5 % (5 mg/mL) injection 09-23 13:53: 00 09-23 17:13 :49 No PRN, Starting on Fri09/23/22 at 0753, Until Fri09/23/22 at 1113, Routine, Intra-op [facility] lactated ringers IV infusion 1,000 mL 09-23 12:45: 00 09-23 13:02 :00 No 1000mL at 42 mL/hr, 1,000 mL, IV Infusion, ONCE, 1 dose, On 09/23/22 at 0645, Routine, DSU Pre-op [facility] amitriptyli ne 150 mg tablet 09-23 09:08: 45 Yes amitriptyl ine 150 mg tablet Take 1 tablet every day by oral route for 30 days. [facility] Fesoterodin e (TOVIAZ) 4 mg tablet 09-23 09:08: 45 Yes Toviaz 4 mg tablet,ext ended release [facility] DULoxetine 60 mg capsule 09-23 09:08: 45 Yes 60mg Take 60 mg by mouth daily. [facility] atorvastati n 10 mg tablet 09-23 09:08: 45 Yes 10mg Take 10 mg by mouth in the morning. [facility] semaglutide (OZEMPIC) 1 mg/dose (4 mg/3 mL) PnIj 09-23 09:08: 45 Yes 1.25mg inject 1.25 mg under the skin weekly. [facility] aspirin 325 mg tablet 09-23 00:00: 00 10-22 04:59 :00 No [id number] 325mg Take 1 tablet by mouth in the morning and 1 tablet in the evening. Take with meals. Do all this for 28 days. [facility] semaglutide (OZEMPIC) 1 mg/dose (4 mg/3 mL) PnIj 09-17 13:39: 54 Yes 1.25mg inject 1.25 mg under the skin weekly. [facility] atorvastati n 10 mg tablet 09-17 13:19: 59 Yes 10mg Take 10 mg by mouth in the morning. [facility] amitriptyli ne 150 mg tablet 09-17 13:09: 47 Yes amitriptyl ine 150 mg tablet Take 1 tablet every day by oral route for 30 days. [facility] Fesoterodin e (TOVIAZ) 4 mg tablet 09-17 13:09: 47 Yes Toviaz 4 mg tablet,ext ended release [facility] DULoxetine 60 mg capsule 09-17 13:09: 47 Yes 60mg Take 60 mg by mouth daily. [facility] cefTRIAXone (ROCEPHIN) 1,000 mg in NaCl [...] Urine
D uration of Therapy: 7 days [facility] lactobacill us acidophilus 2021-08 00:00: 00 07-14 05:59 :00 No [id number] .5mg Take 1 tablet by mouth in the morning for 30 days. [facility] polyethylen e glycol 3350 17 gram powder 2021-08 00:00: 00 07-14 05:59 :00 No [id number] 17g Take 1 Packet by mouth in the morning for 30 days. [facility] sennosides- docusate sodium (SENOKOT-S) 8.6-50 mg per tablet 1 tablet 2021-08 16:15: 00 Yes 1{tbl} 1 tablet, Oral, DAILY, First dose on Fri06/12/22 at 1015, Until Discontinu ed, Routine [facility] polyethylen e glycol 3350 powder 17 g 2021-08 16:15: 00 Yes 17g 17 g, Oral, DAILY, First dose on Fri06/12/22 at 1015, Until Discontinu ed, Routine [facility] amitriptyli ne 150 mg tablet 2021-08 16:08: 30 Yes amitriptyl ine 150 mg tablet Take 1 tablet every day by oral route for 30 days. [facility] Fesoterodin e (TOVIAZ) 4 mg tablet 2021-08 16:08: 30 Yes Toviaz 4 mg tablet,ext ended release [facility] DULoxetine 60 mg capsule 2021-08 16:08: 30 Yes 60mg Take 60 mg by mouth daily. [facility] proMETHazin e 25 mg tablet 2021-08 00:00: 00 09-17 00:00 :00 No [id number] 25mg Take 1 tablet by mouth every 4 (four) hours as needed for N/V unresponsi ve to Ondansetro n. [facility] docusate 100 mg capsule 2021-08 00:00: 00 07-13 05:59 :00 No [id number] 100mg Take 1 capsule by mouth in the morning and 1 capsule in the evening. Do all this for 30 days. [facility] HYDROcodone -acetaminop hen 5-325 mg tablet 2021-08 00:00: 00 06-20 05:59 :00 No [id number] 1{tbl} Take 1 tablet by mouth every 6 (six) hours as needed for Pain (scale 7-10) for up to 7 days. Indication s: acute pain [facility] ciprofloxac in HCl 500 mg tablet 2021-08 00:00: 00 06-20 05:59 :00 No [id number] 500mg Take 1 tablet by mouth every 12 (twelve) hours for 7 days. [facility] metroNIDAZO LE 250 mg tablet 2021-08 00:00: 00 06-20 05:59 :00 No [id number] 500mg Take 2 tablets by mouth every 12 (twelve) hours for 7 days. [facility] proMETHazin e (PHENERGAN) 25 mg in NaCl 0.9% (NS) 50 mL IV piggyback 2021-08 21:26: 59 Yes 25mg 25 mg, IV Piggyback, Q4HPRN, Starting on Fri06/11/22 at 1526, Until Discontinu ed, Routine, Nausea and Vomiting (N/V), N/V unresponsi ve to Ondansetro n [facility] acetaminoph en (TYLENOL) tablet 650 mg 2021-08 15:55: 26 Yes 650mg 650 mg, Oral, Q6HPRN, Starting on Fri06/11/22 at 0955, Until Discontinu ed, Routine, Pain (scale 1-3) [facility] enoxaparin (LOVENOX) injection 40 mg 2021-08 15:00: 00 Yes 40mg 40 mg, Subcutaneo us, DAILY, First dose on Fri06/11/22 at 0900, Until Discontinu ed, Routine [facility] DULoxetine (CYMBALTA) capsule 60 mg 2021-08 15:00: 00 Yes 60mg 60 mg, Oral, DAILY, First dose on Fri06/11/22 at 0900, Until Discontinu ed, Routine [facility] lactobacill us acidophilus tablet 0.5 mg 2021-08 15:00: 00 Yes .5mg 0.5 mg, Oral, DAILY, First dose on Fri06/11/22 at 0900, Until Discontinu ed, Routine [facility] Sliding Scale Insulin - Lispro (HumaLOG) + Fsbg Testing 2021-08 14:00: 00 Yes Subcutaneo us, TID MEALS, First dose on Fri06/11/22 at 0800, Until Discontinu ed, Routine [facility] morpHINE (4 mg/mL) injection 4 mg 2021-08 12:52: 08 Yes 4mg 4 mg, Slow IV Push, Q4HPRN, Starting on Fri06/11/22 at 0652, Until Discontinu ed, Routine, Pain (scale 7-10) [facility] cefTRIAXone (ROCEPHIN) 1,000 mg in NaCl [...] Urine
D uration of Therapy: 7 days [facility] docusate (COLACE) capsule 100 mg 2021-08 06:15: 00 Yes 100mg 100 mg, Oral, BID, First dose on Fri06/11/22 at 0015, Until Discontinu ed, Routine [facility] gabapentin (NEURONTIN) capsule 200 mg 2021-08 06:15: 00 Yes 200mg 200 mg, Oral, BID, First dose on Fri06/11/22 at 0015, Until Discontinu ed, Routine [facility] ondansetron (ZOFRAN (PF)) injection 4 mg 2021-08 06:06: 47 Yes 4mg 4 mg, Slow IV Push, Q6HPRN, Starting on Fri06/11/22 at 0006, Until Discontinu ed, Routine, Nausea and Vomiting (N/V) [facility] traMADoL (ULTRAM) tablet 50 mg 2021-08 06:06: 37 06-13 06:05 :37 No 50mg 50 mg, Oral, Q8HPRN, Starting on Fri06/11/22 at 0006, Until Sneha 06/13/22 at 0005, Routine, Pain (scale 4-6) [facility] FENTanyl PF (SUBLIMAZE (PF)) injection 50 mcg 2021-08 05:58: 16 06-11 12:52 :20 No 50ug 50 mcg, Slow IV Push, Q4HPRN, Starting on Fri06/10/22 at 2358, Until Fri06/11/22 at 0652, Routine, Pain (scale 7-10) [facility] NaCl 0.9% (NS) IV infusion 1,000 mL 2021-08 04:30: 00 Yes 1000mL at 100 mL/hr, IV Infusion, CONTINUOUS , Starting on Fri06/10/22 at 2230, Until Discontinu ed, Routine [facility] NaCl 0.9% (NS) bolus infusion 1,500 mL 2021-08 03:45: 00 06-11 03:33 :01 No 1500mL at 999 mL/hr, 1,500 mL, IV Infusion, ONCE, 1 dose, On Fri06/10/22 at 2145, KUNAL [facility] ondansetron (ZOFRAN (PF)) injection 4 mg 2021-08 03:17: 24 06-11 06:07 :04 No 4mg 4 mg, Slow IV Push, Q6HPRN, Starting on Fri06/10/22 at 2117, Until Fri06/11/22 at 0007, KUNAL, Nausea and Vomiting (N/V) [facility] metoclopram raven HCl (REGLAN) injection 10 mg 2021-08 03:17: 15 06-11 21:27 :54 No 10mg 10 mg, Slow IV Push, TIDPRN, Starting on Fri06/10/22 at 2117, Until Fri06/11/22 at 1527, Routine, Nausea and Vomiting (N/V) [facility] morpHINE (4 mg/mL) injection 4 mg 2021-08 03:16: 49 06-11 05:58 :48 No 4mg 4 mg, Slow IV Push, Q4HPRN, Starting on Fri06/10/22 at 2116, Until Fri06/10/22 at 2358, Routine, Pain (scale 7-10) [facility] oxybutynin 10 mg 24 hr tablet 2021-08 00:05: 07 06-11 00:00 :00 No oxybutynin chloride ER 10 mg tablet,ext ended release 24 hr [facility] semaglutide (OZEMPIC) 0.25 mg or 0.5 mg(2 mg/1.5 mL) PnIj 2021-08 00:05: 06-11 00:00 :00 No .25mg 0.25 mg. [facility] semaglutide , weight loss, (WEGOVY) 0.25 mg/0.5 mL PnIj SC injection 2021-08 00:05: 07 06-11 00:00 :00 No Wegovy 0.25 mg/0.5 mL subcutaneo us pen injector 0.25 mg SC qwk x4wk, then 0.5 mg SC qwk x4wk, then 1 mg SC qwk x4wk, then 1.7 mg SC qwk x4wk, then 2.4 mg SC qwk [facility] clindamycin 300 mg capsule 2021-08 00:05: 06-11 00:00 :00 No clindamyci n HCl 300 mg capsule Take 1 capsule 3 times a day by oral route for 10 days. [facility] NaCl 0.9% (NS) bolus infusion 500 mL 2021-08 00:00: 00 06-11 00:17 :00 No 500mL at 999 mL/hr, 500 mL, IV Infusion, ONCE, 1 dose, On Fri06/10/22 at 1800, STAT [facility] proMETHazin e (PHENERGAN) 25 mg in NaCl 0.9% (NS) 50 mL IV piggyback 2021-08 00:00: 00 06-11 00:06 :00 No 25mg 25 mg, IV Piggyback, ONCE, 1 dose, On Fri06/10/22 at 1800[facility] (PF[facility] 4 mg 2021-08 23:15: 00 06-10 22:25 :00 No 4mg 4 mg, Slow IV Push, ONCE, 1 dose, On Fri06/10/22 at 1715, [facility] morpHINE (4 mg/mL) injection 4 mg 2021-08 22:15: 00 06-10 21:21 :00 No 4mg 4 mg, Slow IV Push, ONCE, 1 dose, On Fri06/10/22 at 1615, STAT [facility] cefTRIAXone (ROCEPHIN) 1,000 mg in NaCl 0.9% (NS) 50 mL MINI-BAG 2021-08 20:15: 00 06-10 20:51 :00 No 1000mg 1,000 mg, IV Piggyback, ONCE, 1 dose, On Fri06/10/22 at 1415, Administer over 30 Minutes, 50 mL
Reas on for Anti-Infec tive: Documented Infection< br>Documen billy Infection Site: Urine
D uration of Therapy: 7 days [facility] ketorolac (TORADOL) injection 30 mg 2021-08 20:00: 00 06-10 19:01 :00 No 30mg 30 mg, Slow IV Push, ONCE, 1 dose, On Fri06/10/22 at 1400, Routine [facility] morpHINE (4 mg/mL) injection 4 mg 2021-08 19:30: 00 06-10 19:29 :00 No 4mg 4 mg, Slow IV Push, ONCE, 1 dose, On Fri06/10/22 at 1330, STAT [facility] ondansetron (ZOFRAN (PF)) injection 4 mg 2021-08 19:30: 00 06-10 19:29 :00 No 4mg 4 mg, Slow IV Push, ONCE, 1 dose, On Fri06/10/22 at 1330, KUNAL [facility] FENTanyl PF (SUBLIMAZE (PF)) injection 50 mcg 2021-08 18:01: 00 06-10 18:02 :00 No 50ug 50 mcg, Slow IV Push, ONCE, 1 dose, On Fri06/10/22 at 1215, Routine [facility] cefpodoxime 100 mg tablet 2021-08 00:00: 00 06-12 00:00 :00 No [id number] 100mg Take 1 tablet by mouth in the morning and 1 tablet in the evening. Do all this for 7 days. [facility] amitriptyli ne 150 mg tablet 01-14 09:33: 45 Yes amitriptyl ine 150 mg tablet Take 1 tablet every day by oral route for 30 days. [facility] Fesoterodin e (TOVIAZ) 4 mg tablet 01-14 09:33: 45 Yes Toviaz 4 mg tablet,ext ended release [facility] oxybutynin 10 mg 24 hr tablet 01-14 09:33: 45 Yes oxybutynin chloride ER 10 mg tablet,ext ended release 24 hr [facility] semaglutide (OZEMPIC) 0.25 mg or 0.5 mg(2 mg/1.5 mL) PnIj 01-14 09:33: 45 Yes .25mg 0.25 mg. [facility] semaglutide , weight loss, (WEGOVY) 0.25 mg/0.5 mL PnIj SC injection 01-14 09:33: 45 Yes Wegovy 0.25 mg/0.5 mL subcutaneo us pen injector 0.25 mg SC qwk x4wk, then 0.5 mg SC qwk x4wk, then 1 mg SC qwk x4wk, then 1.7 mg SC qwk x4wk, then 2.4 mg SC qwk [facility] clindamycin 300 mg capsule 01-14 09:33: 45 Yes clindamyci n HCl 300 mg capsule Take 1 capsule 3 times a day by oral route for 10 days. [facility] DULoxetine 60 mg capsule 01-14 09:33: 45 Yes 60mg Take 60 mg by mouth daily. [facility] gabapentin 100 mg capsule 11-29 00:00: 00 Yes 100mg Take 1 capsule by mouth in the morning and 1 capsule in the evening. [facility] gabapentin 100 mg capsule 11-29 00:00: 00 Yes 800mg Take 8 capsules by mouth in the morning and 8 capsules at noon and 8 capsules in the evening. [facility] lidocaine-p rilocaine 2.5-2.5 % cream 10-01 00:00: 00 Yes APPLY TO AFFECTED AREA EVERY DAY NEEDED [facility] eszopiclone 1 mg tablet 10-01 00:00: 00 09-17 00:00 :00 No 1mg Take 1 mg by mouth daily. [facility] methylPREDN ISolone (MEDROL, LUNA,) 4 mg tablets 09-24 00:00: 00 Yes [id number] 84mg Take 21 tablets by mouth SEE-INSTRU CTIONS. follow package directions [facility] methylPREDN ISolone (MEDROL, LUNA,) 4 mg tablets 2020-08 0 00:00: 00 Yes [id number] 84mg Take 21 tablets by mouth SEE-INSTRU CTIONS. follow package directions [facility] methocarbam ol (Robaxin) 750 MG tablet 12-18 00:00: 00 12-29 04:59 :00 No [id number] 750mg [id number] 3D Take 1 tablet (750 mg total) by mouth 3 (three) times a day if needed for muscle spasms for up to 10 days. [facility] metFORMIN (Glucophage ) 1000 MG tablet 12-14 00:00: 00 Yes [facility] benzonatate 100 mg capsule 01-25 00:00: 00 Yes [id number] 100mg Take 1 capsule by mouth 3 (three) times daily as needed for Cough. [facility] chlorphenir amine 4 mg tablet 01-25 00:00: 00 Yes [id number] 4mg Take 1 tablet by mouth every 6 (six) hours as needed for Allergies or Runny nose. [facility] LIDOCAINE HCL 10MG/ML LIDOCAINE HCL 10MG/ML 01-19 00:00: 00 No .5mL [facility] Depo-Medrol (Methylpred nisolone) 40mg Depo-Medrol (Methylpred nisolone) 40mg 01-19 00:00: 00 No .5mL [facility] loratadine 10 mg tablet 03-03 00:00: 00 Yes 10mg Take 1 tablet by mouth in the morning. [facility] metFORMIN 1,000 mg tablet 7-07 00:00: 00 09-17 00:00 :00 No TAKE 1 TABLET BY MOUTH TWICE A DAY NEEDED WITH MORNING AND EVENING MEAL [facility] famotidine 40 mg tablet 2-20 00:00: 00 09-17 00:00 :00 No 40mg Take 1 tablet by mouth daily. [facility] Xigduo XR 10-500 MG Xigduo XR [...] Quad IM 3+ YRS 2021-06-24 00:00:00 Completed [facility] Influenza Virus Vaccine Quad IM 3+ YRS 2021-06-24 00:00:00 Completed [facility] Influenza Virus Vaccine Quad IM 3+ YRS 2021-06-24 00:00:00 Completed [facility] Influenza Virus Vaccine Quad IM 3+ YRS 2021-06-24 00:00:00 Completed [facility] Influenza Virus Vaccine Quad IM 3+ YRS 2021-06-24 00:00:00 Completed [facility] Influenza Virus Vaccine Quad IM 3+ YRS 2021-06-24 00:00:00 Completed [facility] Influenza Virus Vaccine Quad IM 3+ YRS 2021-06-24 00:00:00 Completed [facility] Influenza Virus Vaccine Quad IM 3+ YRS 2021-06-24 00:00:00 Completed [facility] Influenza Virus Vaccine Quad IM 3+ YRS 2021-06-24 00:00:00 Completed [facility] Influenza Virus Vaccine Quad IM 3+ YRS 2021-06-24 00:00:00 Completed [facility] Influenza Virus Vaccine Quad IM 3+ YRS 2021-06-24 00:00:00 Completed [facility] Influenza Virus Vaccine Quad IM 3+ YRS 2021-06-24 00:00:00 Completed [facility] Influenza Virus Vaccine Quad IM 3+ YRS 2021-06-24 00:00:00 Completed [facility] Influenza Virus Vaccine Quad IM 3+ YRS 2021-06-24 00:00:00 Completed [facility] Influenza Virus Vaccine Quad IM 3+ YRS 2021-06-24 00:00:00 Completed [facility] Influenza Virus Vaccine Quad IM 3+ YRS 2021-06-24 00:00:00 Completed [facility] Influenza Virus Vaccine Quad IM 3+ YRS 2021-06-24 00:00:00 Completed [facility] Influenza Virus Vaccine Quad IM 3+ YRS 2021-06-24 00:00:00 Completed [facility] Influenza Virus Vaccine Quad IM 3+ YRS 2021-06-24 00:00:00 Completed [facility] Influenza Virus Vaccine Quad IM 3+ YRS 2021-06-24 00:00:00 Completed [facility] SARS-COV-2 COVID-19 PFIZER VACCINE 2021-04-23 00:00:00 Completed [facility] SARS-COV-2 COVID-19 ALY/J&J VACCINE 2021-04-23 00:00:00 Completed [facility] SARS-COV-2 COVID-19 PFIZER VACCINE 2021-04-23 00:00:00 Completed [facility] SARS-COV-2 COVID-19 ALY/J&J VACCINE 2021-04-23 00:00:00 Completed [facility] SARS-COV-2 COVID-19 PFIZER VACCINE 2021-04-23 00:00:00 Completed [facility] SARS-COV-2 COVID-19 ALY/J&J VACCINE 2021-04-23 00:00:00 Completed [facility] SARS-COV-2 COVID-19 PFIZER VACCINE 2021-04-23 00:00:00 Completed [facility] SARS-COV-2 COVID-19 ALY/J&J VACCINE 2021-04-23 00:00:00 Completed [facility] SARS-COV-2 COVID-19 PFIZER VACCINE 2021-04-23 00:00:00 Completed [facility] SARS-COV-2 COVID-19 ALY/J&J VACCINE 2021-04-23 00:00:00 Completed [facility] SARS-COV-2 COVID-19 PFIZER VACCINE 2021-04-23 00:00:00 Completed [facility] SARS-COV-2 COVID-19 ALY/J&J VACCINE 2021-04-23 00:00:00 Completed [facility] SARS-COV-2 COVID-19 PFIZER VACCINE 2021-04-23 00:00:00 Completed [facility] SARS-COV-2 COVID-19 ALY/J&J VACCINE 2021-04-23 00:00:00 Completed [facility] SARS-COV-2 COVID-19 PFIZER VACCINE 2021-04-23 00:00:00 Completed [facility] SARS-COV-2 COVID-19 ALY/J&J VACCINE 2021-04-23 00:00:00 Completed [facility] SARS-COV-2 COVID-19 PFIZER VACCINE 2021-04-23 00:00:00 Completed [facility] SARS-COV-2 COVID-19 ALY/J&J VACCINE 2021-04-23 00:00:00 Completed [facility] SARS-COV-2 COVID-19 PFIZER VACCINE 2021-04-23 00:00:00 Completed [facility] SARS-COV-2 COVID-19 ALY/J&J VACCINE 2021-04-23 00:00:00 Completed [facility] SARS-COV-2 COVID-19 PFIZER VACCINE 2021-04-23 00:00:00 Completed [facility] SARS-COV-2 COVID-19 ALY/J&J VACCINE 2021-04-23 00:00:00 Completed [facility] SARS-COV-2 COVID-19 PFIZER VACCINE 2021-04-23 00:00:00 Completed [facility] SARS-COV-2 COVID-19 ALY/J&J VACCINE 2021-04-23 00:00:00 Completed [facility] SARS-COV-2 COVID-19 PFIZER VACCINE 2021-04-23 00:00:00 Completed [facility] SARS-COV-2 COVID-19 ALY/J&J VACCINE 2021-04-23 00:00:00 Completed [facility] SARS-COV-2 COVID-19 PFIZER VACCINE 2021-04-23 00:00:00 Completed [facility] SARS-COV-2 COVID-19 ALY/J&J VACCINE 2021-04-23 00:00:00 Completed [facility] SARS-COV-2 COVID-19 PFIZER VACCINE 2021-04-23 00:00:00 Completed [facility] SARS-COV-2 COVID-19 ALY/J&J VACCINE 2021-04-23 00:00:00 Completed [facility] SARS-COV-2 COVID-19 PFIZER VACCINE 2021-04-23 00:00:00 Completed [facility] SARS-COV-2 COVID-19 ALY/J&J VACCINE 2021-04-23 00:00:00 Completed [facility] SARS-COV-2 COVID-19 PFIZER VACCINE 2021-04-23 00:00:00 Completed [facility] SARS-COV-2 COVID-19 ALY/J&J VACCINE 2021-04-23 00:00:00 Completed [facility] SARS-COV-2 COVID-19 PFIZER VACCINE 2021-04-23 00:00:00 Completed [facility] SARS-COV-2 COVID-19 ALY/J&J VACCINE 2021-04-23 00:00:00 Completed [facility] SARS-COV-2 COVID-19 PFIZER VACCINE 2021-04-23 00:00:00 Completed [facility] SARS-COV-2 COVID-19 ALY/J&J VACCINE 2021-04-23 00:00:00 Completed [facility] SARS-COV-2 COVID-19 PFIZER VACCINE 2021-04-23 00:00:00 Completed [facility] SARS-COV-2 COVID-19 ALY/J&J VACCINE 2021-04-23 00:00:00 Completed [facility] SARS-COV-2 COVID-19 PFIZER VACCINE 2021-04-23 00:00:00 Completed [facility] SARS-COV-2 COVID-19 ALY/J&J VACCINE 2021-04-23 00:00:00 Completed [facility] SARS-COV-2 COVID-19 PFIZER VACCINE 2021-04-02 00:00:00 Completed [facility] SARS-COV-2 COVID-19 ALY/J&J VACCINE 2021-04-02 00:00:00 Completed [facility] SARS-COV-2 COVID-19 PFIZER VACCINE 2021-04-02 00:00:00 Completed [facility] SARS-COV-2 COVID-19 ALY/J&J VACCINE 2021-04-02 00:00:00 Completed [facility] SARS-COV-2 COVID-19 PFIZER VACCINE 2021-04-02 00:00:00 Completed [facility] SARS-COV-2 COVID-19 ALY/J&J VACCINE 2021-04-02 00:00:00 Completed [facility] SARS-COV-2 COVID-19 PFIZER VACCINE 2021-04-02 00:00:00 Completed [facility] SARS-COV-2 COVID-19 ALY/J&J VACCINE 2021-04-02 00:00:00 Completed [facility] SARS-COV-2 COVID-19 PFIZER VACCINE 2021-04-02 00:00:00 Completed [facility] SARS-COV-2 COVID-19 ALY/J&J VACCINE 2021-04-02 00:00:00 Completed [facility] SARS-COV-2 COVID-19 PFIZER VACCINE 2021-04-02 00:00:00 Completed [facility] SARS-COV-2 COVID-19 ALY/J&J VACCINE 2021-04-02 00:00:00 Completed [facility] SARS-COV-2 COVID-19 PFIZER VACCINE 2021-04-02 00:00:00 Completed [facility] SARS-COV-2 COVID-19 ALY/J&J VACCINE 2021-04-02 00:00:00 Completed [facility] SARS-COV-2 COVID-19 PFIZER VACCINE 2021-04-02 00:00:00 Completed [facility] SARS-COV-2 COVID-19 ALY/J&J VACCINE 2021-04-02 00:00:00 Completed [facility] SARS-COV-2 COVID-19 PFIZER VACCINE 2021-04-02 00:00:00 Completed [facility] SARS-COV-2 COVID-19 ALY/J&J VACCINE 2021-04-02 00:00:00 Completed [facility] SARS-COV-2 COVID-19 PFIZER VACCINE 2021-04-02 00:00:00 Completed [facility] SARS-COV-2 COVID-19 ALY/J&J VACCINE 2021-04-02 00:00:00 Completed [facility] SARS-COV-2 COVID-19 PFIZER VACCINE 2021-04-02 00:00:00 Completed [facility] SARS-COV-2 COVID-19 ALY/J&J VACCINE 2021-04-02 00:00:00 Completed [facility] SARS-COV-2 COVID-19 PFIZER VACCINE 2021-04-02 00:00:00 Completed [facility] SARS-COV-2 COVID-19 ALY/J&J VACCINE 2021-04-02 00:00:00 Completed [facility] SARS-COV-2 COVID-19 PFIZER VACCINE 2021-04-02 00:00:00 Completed [facility] SARS-COV-2 COVID-19 ALY/J&J VACCINE 2021-04-02 00:00:00 Completed [facility] SARS-COV-2 COVID-19 PFIZER VACCINE 2021-04-02 00:00:00 Completed [facility] SARS-COV-2 COVID-19 ALY/J&J VACCINE 2021-04-02 00:00:00 Completed [facility] SARS-COV-2 COVID-19 PFIZER VACCINE 2021-04-02 00:00:00 Completed [facility] SARS-COV-2 COVID-19 ALY/J&J VACCINE 2021-04-02 00:00:00 Completed [facility] SARS-COV-2 COVID-19 PFIZER VACCINE 2021-04-02 00:00:00 Completed [facility] SARS-COV-2 COVID-19 ALY/J&J VACCINE 2021-04-02 00:00:00 Completed [facility] SARS-COV-2 COVID-19 PFIZER VACCINE 2021-04-02 00:00:00 Completed [facility] SARS-COV-2 COVID-19 ALY/J&J VACCINE 2021-04-02 00:00:00 Completed [facility] SARS-COV-2 COVID-19 PFIZER VACCINE 2021-04-02 00:00:00 Completed [facility] SARS-COV-2 COVID-19 ALY/J&J VACCINE 2021-04-02 00:00:00 Completed [facility] SARS-COV-2 COVID-19 PFIZER VACCINE 2021-04-02 00:00:00 Completed [facility] SARS-COV-2 COVID-19 ALY/J&J VACCINE 2021-04-02 00:00:00 Completed [facility] SARS-COV-2 COVID-19 PFIZER VACCINE 2021-04-02 00:00:00 Completed [facility] SARS-COV-2 COVID-19 ALY/J&J VACCINE 2021-04-02 00:00:00 Completed [facility] SARS-COV-2 COVID-19 PFIZER VACCINE 2021-04-02 00:00:00 Completed [facility] SARS-COV-2 COVID-19 ALY/J&J VACCINE 2021-04-02 00:00:00 Completed [facility] Influenza Virus Vaccine Quad IM 3+ YRS 2020-05-12 00:00:00 Completed [facility] Influenza Virus Vaccine Quad IM 3+ YRS 2020-05-12 00:00:00 Completed [facility] Influenza Virus Vaccine Quad IM 3+ YRS 2020-05-12 00:00:00 Completed [facility] Influenza Virus Vaccine Quad IM 3+ YRS 2020-05-12 00:00:00 Completed [facility] Influenza Virus Vaccine Quad IM 3+ YRS 2020-05-12 00:00:00 Completed [facility] Influenza Virus Vaccine Quad IM 3+ 2020-05-12 00:00:00 Completed [facility] Influenza Virus Vaccine Quad IM 3+ 2020-05-12 00:00:00 Completed [facility] Influenza Virus Vaccine Quad IM 3+ 2020-05-12 00:00:00 Completed [facility] Influenza Virus Vaccine Quad IM 3+ 2020-05-12 00:00:00 Completed [facility] Influenza Virus Vaccine Quad IM 3+ 2020-05-12 00:00:00 Completed [facility] Influenza Virus Vaccine Quad IM 3+ YRS 2020-05-12 00:00:00 Completed [facility] Influenza Virus Vaccine Quad IM 3+ 2020-05-12 00:00:00 Completed [facility] Influenza Virus Vaccine Quad IM 3+ 2020-05-12 00:00:00 Completed [facility] Influenza Virus Vaccine Quad IM 2020-05-12 00:00:00 Completed [facility] Influenza Virus Vaccine Quad IM 2020-05-12 00:00:00 Completed [facility] Influenza Virus Vaccine Quad IM 32020-05-12 00:00:00 Completed [facility] Influenza Virus Vaccine Quad IM 32020-05-12 00:00:00 Completed [facility] Influenza Virus Vaccine Quad IM 3+ 2020-05-12 00:00:00 Completed [facility] Influenza Virus Vaccine Quad IM 3+ 2020-05-12 00:00:00 Completed [facility] Influenza Virus Vaccine Quad IM 3+ 2020-05-12 00:00:00 Completed [facility] Influenza Virus Vaccine Quad IM 3+ 2020-05-12 00:00:00 Completed [facility] LIDOCAINE HCL 10MG/ML LIDOCAINE HCL 10MG/ML 2020-01-20 08:45:00 Completed [facility] Depo-Medrol (Methylprednisolone ) 40mg Depo-Medrol (Methylprednisolon e) 40mg 2020-01-20 08:44:00 Completed [facility] Depo-Medrol (Methylprednisolone ) 40mg Depo-Medrol (Methylprednisolon e) 40mg 2020-01-20 08:43:00 Completed [facility] Influenza Virus Vaccine Quad IM 3+ YRS 2019-09-13 00:00:00 Completed [facility] Influenza Virus Vaccine Quad IM 3+ YRS 2019-09-13 00:00:00 Completed [facility] Influenza Virus Vaccine Quad IM 3+ YRS 2019-09-13 00:00:00 Completed [facility] Influenza Virus Vaccine Quad IM 3+ YRS 2019-09-13 00:00:00 Completed [facility] Influenza Virus Vaccine Quad IM 3+ YRS 2019-09-13 00:00:00 Completed [facility] Influenza Virus Vaccine Quad IM 3+ YRS 2019-09-13 00:00:00 Completed [facility] Influenza Virus Vaccine Quad IM 3+ YRS 2019-09-13 00:00:00 Completed [facility] Influenza Virus Vaccine Quad IM 3+ YRS 2019-09-13 00:00:00 Completed [facility] Influenza Virus Vaccine Quad IM 3+ YRS 2019-09-13 00:00:00 Completed [facility] Influenza Virus Vaccine Quad IM 3+ YRS 2019-09-13 00:00:00 Completed [facility] Influenza Virus Vaccine Quad IM 3+ YRS 2019-09-13 00:00:00 Completed [facility] Influenza Virus Vaccine Quad IM 3+ YRS 2019-09-13 00:00:00 Completed [facility] Influenza Virus Vaccine Quad IM 3+ YRS 2019-09-13 00:00:00 Completed [facility] Influenza Virus Vaccine Quad IM 3+ YRS 2019-09-13 00:00:00 Completed [facility] Influenza Virus Vaccine Quad IM 3+ YRS 2019-09-13 00:00:00 Completed [facility] Influenza Virus Vaccine Quad IM 3+ YRS 2019-09-13 00:00:00 Completed [facility] Influenza Virus Vaccine Quad IM 3+ YRS 2019-09-13 00:00:00 Completed [facility] Influenza Virus Vaccine Quad IM 3+ YRS 2019-09-13 00:00:00 Completed [facility] Influenza Virus Vaccine Quad IM 3+ YRS 2019-09-13 00:00:00 Completed [facility] Influenza Virus Vaccine Quad IM 3+ YRS 2019-09-13 00:00:00 Completed [facility] Influenza Virus Vaccine Quad IM 3+ YRS 2019-09-13 00:00:00 Completed [facility] SARS-COV-2 COVID-19 PFIZER VACCINE Unknown Completed [facility] SARS-COV-2 COVID-19 ALY/J&J VACCINE Unknown Completed [facility] Influenza Virus Vaccine Quad IM 3+ YRS Unknown Completed [facility] SARS-COV-2 COVID-19 PFIZER VACCINE Unknown Completed [facility] SARS-COV-2 COVID-19 ALY/J&J VACCINE Unknown Completed [facility] Influenza Virus Vaccine Quad IM 3+ YRS Unknown Completed [facility] SARS-COV-2 COVID-19 PFIZER VACCINE Unknown Completed [facility] SARS-COV-2 COVID-19 ALY/J&J VACCINE Unknown Completed [facility] Influenza Virus Vaccine Quad IM 3+ YRS Unknown Completed [facility] SARS-COV-2 COVID-19 PFIZER VACCINE Unknown Completed [facility] SARS-COV-2 COVID-19 ALY/J&J VACCINE Unknown Completed [facility] Influenza Virus Vaccine Quad IM 3+ YRS Unknown Completed [facility] Vital Signs Vital Name Observation Time Observation Value Comments S ource height 2023-12-17 09:00:00 61.5 [in_i] Comm on [facility] weight 2023-12-17 09:00:00 213 [lb_av] Comm on [facility] temperature 2023-12-17 09:00:00 97.6 [degF] Com mon [facility] bmi 2023-12-17 09:00:00 39.59 kg/m2 Comm on [facility] blood pressure systolic 2023-12-17 09:00:00 126 mm[Hg] [facility] blood pressure diastolic 2023-12-17 09:00:00 78 mm[Hg] [facility] height 2023-11-28 08:00:00 61.5 [in_i] Comm on [facility] weight 2023-11-28 08:00:00 212 [lb_av] Comm on [facility] temperature 2023-11-28 08:00:00 97.4 [degF] Com mon [facility] bmi 2023-11-28 08:00:00 39.4 kg/m2 Commo n [facility] blood pressure systolic 2023-11-28 08:00:00 124 mm[Hg] [facility] blood pressure diastolic 2023-11-28 08:00:00 81 mm[Hg] [facility] height 2023-09-18 14:30:00 61.5 [in_i] Comm on [facility] weight 2023-09-18 14:30:00 217.6 [lb_av] Co mmon [facility] temperature 2023-09-18 14:30:00 97.9 [degF] Com [facility] bmi 2023-09-18 14:30:00 40.44 kg/m2 Comm on [facility] blood pressure systolic 2023-09-18 14:30:00 128 mm[Hg] Common [facility] blood pressure diastolic 2023-09-18 14:30:00 83 mm[Hg] Common [facility] Systolic blood pressure 2023-08-30 17:41:00 129 mm[Hg] [facility] Diastolic blood pressure 2023-08-30 17:41:00 73 mm[Hg] [facility] Heart rate 2023-08-30 17:41:00 93 /min [facility] Body temperature 2023-08-30 17:41:00 36.67 Vika [facility] Respiratory rate 2023-08-30 17:41:00 18 /min [facility] Oxygen saturation in Arterial blood by Pulse oximetry 2023-08-30 17:41:00 97 /min [facility] Body height 2023-08-30 01:53:00 157.5 cm [facility] Body weight 2023-08-30 01:53:00 103.42 kg [facility] BMI 2023-08-30 01:53:00 41.70 kg/m2 [facility] height 2023-05-23 10:30:00 61.5 [in_i] Comm on [facility] weight 2023-05-23 10:30:00 225 [lb_av] Comm on [facility] temperature 2023-05-23 10:30:00 98.1 [degF] Com mon [facility] bmi 2023-05-23 10:30:00 41.82 kg/m2 Comm on [facility] blood pressure systolic 2023-05-23 10:30:00 131 mm[Hg] Common [facility] blood pressure diastolic 2023-05-23 10:30:00 82 mm[Hg] Common [facility] height 2023-05-07 09:30:00 61.5 [in_i] Comm on [facility] weight 2023-05-07 09:30:00 227 [lb_av] Comm on [facility] temperature 2023-05-07 09:30:00 97.6 [degF] Com [facility] bmi 2023-05-07 09:30:00 42.19 kg/m2 Comm on [facility] blood pressure systolic 2023-05-07 09:30:00 130 mm[Hg] Common [facility] blood pressure diastolic 2023-05-07 09:30:00 78 mm[Hg] Common [facility] height 2023-03-17 13:45:00 61.5 [in_i] Comm on [facility] weight 2023-03-17 13:45:00 220 [lb_av] Comm on [facility] temperature 2023-03-17 13:45:00 98.2 [degF] Com [facility] bmi 2023-03-17 13:45:00 40.89 kg/m2 Comm on [facility] blood pressure systolic 2023-03-17 13:45:00 132 mm[Hg] Common [facility] blood pressure diastolic 2023-03-17 13:45:00 84 mm[Hg] Common [facility] height 2023-01-13 08:45:00 61.5 [in_i] Comm on [facility] weight 2023-01-13 08:45:00 221 [lb_av] Comm on [facility] temperature 2023-01-13 08:45:00 97.9 [degF] Com mon [facility] bmi 2023-01-13 08:45:00 41.08 kg/m2 Comm on [facility] blood pressure systolic 2023-01-13 08:45:00 128 mm[Hg] Common [facility] blood pressure diastolic 2023-01-13 08:45:00 82 mm[Hg] Common [facility] height 2023-01-07 09:30:00 61.5 [in_i] Comm on [facility] weight 2023-01-07 09:30:00 221 [lb_av] Comm on [facility] temperature 2023-01-07 09:30:00 97.7 [degF] Com mon [facility] bmi 2023-01-07 09:30:00 41.08 kg/m2 Comm on [facility] blood pressure systolic 2023-01-07 09:30:00 134 mm[Hg] Common [facility] blood pressure diastolic 2023-01-07 09:30:00 80 mm[Hg] [facility] Systolic blood pressure 2022-12-27 14:00:00 120 mm[Hg] [facility] Diastolic blood pressure 2022-12-27 14:00:00 87 mm[Hg] [facility] Heart rate 2022-12-27 14:00:00 102 /min [facility] Body height 2022-12-27 14:00:00 152.4 cm [facility] Body weight 2022-12-27 14:00:00 101.696 kg [facility] BMI 2022-12-27 14:00:00 43.79 kg/m2 [facility] Oxygen saturation in Arterial blood by Pulse oximetry 2022-12-27 14:00:00 98 /min [facility] Systolic blood pressure 2022-09-23 14:42:00 141 mm[Hg] [facility] Diastolic blood pressure 2022-09-23 14:42:00 74 mm[Hg] [facility] Heart rate 2022-09-23 14:42:00 76 /min [facility] Respiratory rate 2022-09-23 14:42:00 8 /min [facility] Oxygen saturation in Arterial blood by Pulse oximetry 2022-09-23 14:42:00 100 /min [facility] Body temperature 2022-09-23 14:07:00 36.5 Vika [facility] Body height 2022-09-17 19:30:00 154.9 cm [facility] Body weight 2022-09-17 19:30:00 113.399 kg [facility] BMI 2022-09-17 19:30:00 47.24 kg/m2 [facility] Systolic blood pressure 2022-09-23 12:46:00 144 mm[Hg] [facility] Diastolic blood pressure 2022-09-23 12:46:00 68 mm[Hg] [facility] Heart rate 2022-09-23 12:46:00 90 /min [facility] Body temperature 2022-09-23 12:46:00 36.56 Vika [facility] Respiratory rate 2022-09-23 12:46:00 17 /min [facility] Oxygen saturation in Arterial blood by Pulse oximetry 2022-09-23 12:46:00 95 /min [facility] Body height 2022-09-17 19:30:00 154.9 cm [facility] Body weight 2022-09-17 19:30:00 113.399 kg Univ [facility] BMI 2022-09-17 19:30:00 47.24 kg/m2 [facility] Systolic blood pressure 2022-09-19 16:02:00 125 mm[Hg] [facility] Diastolic blood pressure 2022-09-19 16:02:00 81 mm[Hg] [facility] Heart rate 2022-09-19 16:02:00 79 /min [facility] Body temperature 2022-09-19 16:02:00 36.94 Vika [facility] Respiratory rate 2022-09-19 16:02:00 18 /min [facility] Body height 2022-09-19 16:02:00 154.9 cm [facility] Body weight 2022-09-19 16:02:00 104.327 kg Univ [facility] BMI 2022-09-19 16:02:00 43.46 kg/m2 [facility] Oxygen saturation in Arterial blood by Pulse oximetry 2022-09-19 16:02:00 98 /min [facility] Body weight 2022-09-10 21:39:00 113.399 kg [facility] BMI 2022-09-10 21:39:00 47.24 kg/m2 [facility] Systolic blood pressure 2022-06-12 18:06:00 155 mm[Hg] [facility] Diastolic blood pressure 2022-06-12 18:06:00 84 mm[Hg] [facility] Heart rate 2022-06-12 18:06:00 90 /min [facility] Body temperature 2022-06-12 18:06:00 36 Vika [facility] Respiratory rate 2022-06-12 18:06:00 18 /min [facility] Oxygen saturation in Arterial blood by Pulse oximetry 2022-06-12 18:06:00 94 /min [facility] Body weight 2022-06-11 09:20:00 113.49 kg [facility] BMI 2022-06-11 09:20:00 47.27 kg/m2 [facility] Body height 2022-06-11 01:52:00 154.9 cm [facility] Systolic blood pressure 2022-04-19 13:32:00 127 mm[Hg] [facility] Diastolic blood pressure 2022-04-19 13:32:00 67 mm[Hg] [facility] Heart rate 2022-04-19 13:32:00 88 /min [facility] Body height 2022-04-19 13:32:00 154.9 cm [facility] Body weight 2022-04-19 13:32:00 117.028 kg [facility] BMI 2022-04-19 13:32:00 48.75 kg/m2 [facility] Body height 2020-12-18 16:17:00 157.5 [...] POCT GLUCOSE (AUTOMATED) 2023-08-30 18:30:00 Jarred Barker [facility] POCT GLUCOSE (AUTOMATED) 2023-08-30 13:51:00 [facility] TROPONIN I 2023-08-30 09:22:[address] [facility] GLYCOSYLATED HEMOGLOBIN (A1C) 2023-08-30 04:51:00 Annamaria Barker [facility] TROPONIN I 2023-08-30 04:50:[address] [facility] POCT GLUCOSE (AUTOMATED) 2023-08-30 02:21:00 Jarred Barker [facility] URINE DRUG (IMMUNOASSAY) - COMPREHENSIVE DRUG SCREEN W/O REFLEX 2023-08-30 00:00:00 Marylou Driver [facility] CT ABDOMEN PELVIS W CONTRAST 2023-08-29 23:18:33 Marylou Driver [facility] CT CHEST PULMONARY ANGIOGRAM 2023-08-29 19:11:03 Marylou Driver [facility] URINALYSIS 2023-08-29 17:44:00 Marylou Driver [facility] XR CHEST 1 VW 2023-08-29 17:05:57 Marylou Driver [facility] LIPASE 2023-08-29 16:43:00 Marylou Driver [facility] MAGNESIUM 2023-08-29 16:43:00 Marylou Driver [facility] TROPONIN I 2023-08-29 16:43:00 Marylou Driver [facility] COMP. METABOLIC PANEL (90459) 2023-08-29 16:43:00 Marylou Driver [facility] CBC WITH DIFF 2023-08-29 16:43:00 Marylou Driver [facility] D-DIMER 2023-08-29 16:43:00 Marylou Driver [facility] HB ECG ROUTINE & RHYTHM STRIP 2023-08-29 16:32:22 Marylou Driver [facility] EXTERNAL PROVIDER - ADC CARDIOLOGY 2022-12-31 05:01:00 Doctor Unassigned, [place] [facility] EXTERNAL PROVIDER - ADC REFERRAL 2022-12-20 05:01:00 Doctor Unassigned, [place] [facility] FL TIME OR (NON-REPORTABLE) 2022-09-23 14:53:25 Kayla Lutz [facility] FL TIME OR (NON-REPORTABLE) 2022-09-23 14:53:25 Kayla Lutz [facility] MAJOR JOINT INJECTION 2022-09-23 13:32:00 Inderjit Lutz [facility] POCT GLUCOSE (AUTOMATED) 2022-09-23 12:50:00 Kayla Lutz [facility] POCT GLUCOSE (AUTOMATED) 2022-09-23 12:50:00 Kayla Lutz [facility] HB ABO GROUPING 2022-09-23 12:45:00 Kayla Lutz [facility] HB ABO GROUPING 2022-09-23 12:45:00 Kayla Lutz [facility] DAY SURGERY - ADC 2022-09-23 06:01:00 Doctor Rena ssigned, [place] [facility] TROPONIN I 2022-09-19 15:38:[address] [facility] XR CHEST 2 VW 2022-09-19 14:38:32 Kayla Lutz Un [facility] ASSIGNMENT OF BENEFITS 2022-09-19 14:20:21 Docto r Unassigned, [place] [facility] EXTERNAL PROVIDER RECORDS 2022-09-17 06:01:00 Doctor Unassigned, [place] [facility] ASSIGNMENT OF BENEFITS 2022-09-10 21:32:35 Docto r Unassigned, [place] [facility] POCT GLUCOSE (AUTOMATED) 2022-06-12 18:08:00 Jarred Barker [facility] BASIC METABOLIC PANEL (NA, K, CL, CO2, GLUCOSE, BUN, CREATININE, CA) 2022-06-12 09:27:00 Jimmy Rowland [facility] CBC WITH DIFF 2022-06-12 09:27:00 Jimmy Rowland Un [facility] POCT GLUCOSE (AUTOMATED) 2022-06-12 07:56:00 Jarred Barker [facility] POCT GLUCOSE (AUTOMATED) 2022-06-12 01:45:00 Jarred Barker [facility] POCT GLUCOSE (AUTOMATED) 2022-06-11 22:56:00 Jarred Barker [facility] POCT GLUCOSE (AUTOMATED) 2022-06-11 18:11:00 [facility] POCT GLUCOSE (AUTOMATED) 2022-06-11 14:05:00 Jarred Barker [facility] PHOSPHORUS 2022-06-11 10:40:[address] [facility] CREATINE KINASE 2022-06-11 10:40:00 Robbi Muro [facility] AMYLASE 2022-06-11 10:40:[address] [facility] LIPASE 2022-06-11 10:40:00 [facility] MAGNESIUM 2022-06-11 10:40:[address] [facility] COMP. METABOLIC PANEL (42081) 2022-06-11 10:40:00 Robbi Muro [facility] CBC WITH DIFF 2022-06-11 10:40:00 Robbi Muro [facility] GLYCOSYLATED HEMOGLOBIN (A1C) 2022-06-11 10:40:00 Jimmy Rowland [facility] N-TERMINAL PRO-BNP 2022-06-11 10:40:00 Robbi Muro [facility] POCT GLUCOSE (AUTOMATED) 2022-06-11 07:56:00 Jarred Barker [facility] URINE CULTURE 2022-06-11 05:18:00 Robbi Muro [facility] PROTHROMBIN TIME / INR 2022-06-11 03:24:00 Thang Muro [facility] LACTIC ACID WHOLE BLOOD 2022-06-11 03:18:00 Jory Muro [facility] C-REACTIVE PROTEIN 2022-06-11 03:17:00 Robbi Muro [facility] SEDIMENTATION RATE 2022-06-11 03:17:00 Robbi Muro [facility] PROCALCITONIN 2022-06-11 03:17:00 Robbi Muro [facility] US OVARY TORSION 2022-06-10 22:01:56 [facility] 2022-[facility]-10 19:14:[address] [facility] CT ABDOMEN PELVIS WO CONTRAST 2022-06-10 18:36:36 Brodie Clemons [facility] PHOSPHORUS 2022-06-10 17:54:[address] [facility] URIC ACID 2022-06-10 17:54:[address] [facility] LIPASE 2022-06-10 17:54:[address] [facility] MAGNESIUM 2022-06-10 17:54:[address] [facility] FERRITIN SERUM 2022-06-10 17:54:00 Robbi Muro [facility] HEPATIC FUNCTION PANEL ([id number]) (ALB,T.PRO,BILI T,BU/BC,ALT,AST,ALK PHOS) 2022-06-10 17:54:00 Brodie Clemons [facility] BASIC METABOLIC PANEL (NA, K, CL, CO2, GLUCOSE, BUN, CREATININE, CA) 2022-06-10 17:54:00 Brodie Clemons [facility] IRON PANEL 2022-06-10 17:54:[address] [facility] CBC WITH DIFF 2022-06-10 17:54:00 Brodie Clemons [facility] N-TERMINAL PRO-BNP 2022-06-10 17:54:00 Robbi Muro [facility] CONSENT/REFUSAL FOR DIAGNOSIS AND TREATMENT 2022-06-10 17:38:54 Doctor Unassigned, [place] [facility] Encounters Start Date/Time End Date/Time Encounter Type Admission Type Attending Clinicians Care Facility Care Department Encounter ID Source 2024-07-14 09:56:[address] [facility] [id number] [facility] 2023-09-16 15:59:[address] [facility] [id number] [facility] 2023-09-15 13:03:[address] [facility] [id number] [facility] 2023-01-10 09:10:[address] [facility] [id number] [facility] 2023-01-07 11:56:01 [facility] [id number] [facility] 2022-12-24 16:13:00 Outpatient Estefany Evans [facility] [id number] [facility] 2022-01-04 12:25:16 Outpatient KAYLA MAGDALENO [facility] [id number] [facility] 2021-08-29 12:51:44 Outpatient [facility] [id number] [facility] 2021-08-29 11:59:56 Outpatient [facility] [id number] [facility] 2021-08-29 11:28:05 Outpatient [facility] [id number] [facility] 2021-08-29 11:27:12 Outpatient [facility] [id number] [facility] 2021-06-01 02:46:06 Emergency [facility] [id number] [facility] 2020-12-18 09:37:27 Outpatient [facility] [id number] [facility] 2020-12-18 09:37:27 Outpatient [facility] [id number] [facility] 2020-12-18 09:37:27 Outpatient [facility] [id number] [facility] 2020-12-15 12:03:34 Outpatient [facility] [id number] [facility] 2020-12-15 12:03:34 Outpatient [facility] [id number] [facility] 2020-12-15 12:00:05 Outpatient [facility] [id number] [facility] 2020-12-09 04:06:39 Outpatient LACEY IVERSON [facility] [id number] [facility] 2023-12-17 00:00:00 2023-12-17 00:00:00 (PO) Post Op [facility] [id number] [facility] 2023-12-11 00:00:00 2023-12-11 00:00:00 (TEL) STLMLC [facility] [id number] [facility] 2023-12-01 00:00:00 2023-12-01 00:00:00 (TEL) STLMLC [facility] [id number] [facility] 2023-11-28 00:00:00 2023-11-28 00:00:00 (F/U) Follow Up Visit STL[facility] ST[facility] [id number] [facility] 2023-11-28 00:00:00 2023-11-28 00:00:00 (TEL) STLMLC STLC [id number] [facility] 2023-10-22 00:00:00 2023-10-22 00:00:00 Outpatient BREE GRIFFITH [facility] [id number] [facility] 2023-09-18 00:00:00 2023-09-18 00:00:00 (ESTPT) Dayne love Patient [facility] [id number] [facility] 2023-09-03 00:00:00 2023-09-03 00:00:00 Patient Secure Msg Doctor Unassigned, [place] [facility] 1.2840.114 350.1.13.10 4.2.7.2.686 [id number] [facility] 2023-09-01 00:00:00 2023-09-01 00:00:00 Transition of Care Veronika Espinoza BETHANY SANTOS [id number] 350.1.13.10 4.2.7.2.686 [id number] [facility] 2023-08-29 10:29:00 2023-08-30 14:13:00 Outpatient X ANNAMARIA BARKER [facility] [id number] [facility] 2023-08-29 10:29:00 2023-08-30 14:13:00 Emergency Marylou Driver David [facility] 1.2840.114 350.1.13.10 4.2.7.2.686 [id number] [facility] 2023-08-30 00:00:00 2023-08-30 00:00:00 Telephone Bree Cervantes [facility] [id number] 350.1.13.10 4.2.7.2.686 [id number] [facility] 2023-05-23 00:00:00 2023-05-23 00:00:00 (PO) Post Op STLMLC ST[facility]C [id number] [facility] 2023-05-07 00:00:00 2023-05-07 00:00:00 NON-BILLAB LE VISIT STLMLC STLMLC [id number] [facility] 2023-04-29 00:00:00 2023-04-29 00:00:00 (TEL) STLMLC STL[facility]C [id number] [facility] 2023-04-08 00:00:00 2023-04-08 00:00:00 (TEL) STLMLC STLMLC [id number] [facility] 2023-04-03 00:00:00 2023-04-03 00:00:00 (TEL) STLMLC STLMLC [id number] [facility] 2023-03-19 00:00:00 2023-03-19 00:00:00 (TEL) STLMLC STL[facility]C [id number] [facility] 2023-03-17 00:00:00 2023-03-17 00:00:00 OFFICE VISIT ESTAB PT LEVEL 3 STLMLC STL[facility]C [id number] [facility] 2023-01-13 00:00:00 2023-01-13 00:00:00 OFFICE VISIT ESTAB PT LEVEL 3 STL[facility]C STL[facility]C [id number] [facility] 2023-01-07 00:00:00 2023-01-07 00:00:00 OFFICE VISIT ESTAB PT LEVEL 4 STLMLC STLMLC [id number] [facility] 2022-12-31 00:00:00 2022-12-31 00:00:00 Telephone BillyMayraministerio [facility] 1.2840.114 350.1.13.10 4.2.7.2.686 [id number] [facility] 2022-12-31 00:00:00 2022-12-31 00:00:00 Orders Only Doctor Unassigned, [place] [facility] 1.2840.114 350.1.13.10 4.2.7.2.686 [id number] [facility] 2022-12-27 09:20:00 2022-12-27 09:20:00 [facility] 1.0.114 350.1.13.10 4.2.7.2.686 [id number] [facility] 2022-12-27 09:20:00 2022-12-27 09:12:16 Outpatient R [facility]ILLY [facility] [id number] [facility] 2022-12-26 09:40:00 2022-12-26 09:40:00 Outpatient R BILLY [facility] [id number] [facility] 2022-12-20 00:00:00 2022-12-20 00:00:00 Orders Only Doctor Unassigned, [place] [facility] 1.20.114 350.1.13.10 4.2.7.2.686 [id number] [facility] 2022-09-23 06:38:00 2022-09-23 09:05:00 Outpatient R KAYLA LUTZ [facility] S[facility] [id number] [facility] 2022-09-23 06:38:00 2022-09-23 09:05:00 Hospital Encounter Kayla Lutz [facility] 1.0.114 350.1.13.10 4.2.7.2.686 [id number] [facility] 2022-09-23 07:25:00 2022-09-23 07:50:00 Surgery Kayla Lutz [facility] 1.20.114 350.1.13.10 4.2.7.2.686 [id number] [facility] 2022-09-23 00:00:00 2022-09-23 00:00:00 Orders Only Doctor Unassigned, [place] [facility] 1.2840.114 350.1.13.10 4.2.7.2.686 [id number] [facility] 2022-09-20 00:00:00 2022-09-20 00:00:00 [facility] 1.20.114 350.1.13.10 4.2.7.2.686 [id number] [facility] 2022-09-19 10:05:00 2022-09-19 11:39:00 Emergency X PEDRO LUIS RUSHINGPEDRO LUIS [facility] ERT [id number] [facility] 2022-09-19 10:05:00 2022-09-19 11:39:00 Emergency Pedro Luis Rushing [facility] 1.20.114 350.1.13.10 4.2.7.2.686 [id number] [facility] 2022-09-19 10:15:00 2022-09-19 10:30:00 Instructional Technology Coach Visit Pob, Adc Lab Main Kayla Lutz [facility] 1..114 350.1.13.10 4.2.7.2.686 [id number] [facility] 2022-09-19 08:22:49 2022-09-19 10:04:00 Hospital Encounter Kayla Lutz [facility] 1.20.114 350.1.13.10 4.2.7.2.686 [id number] [facility] 2022-09-19 08:21:46 2022-09-19 08:21:46 Outpatient R KAYLA LUTZ [facility] [id number] [facility] 2022-09-19 00:00:00 2022-09-19 00:00:00 Orders Only Doctor Unassigned, [place] [facility] 1.2840.114 350.1.13.10 4.2.7.2.686 [id number] [facility] 2022-09-17 00:00:00 2022-09-17 00:00:00 Orders Only Doctor Unassigned, [place] [facility] 1.20.114 350.1.13.10 4.2.7.2.686 [id number] [facility] 2022-09-16 00:00:00 2022-09-16 00:00:00 Prep For Surgery Kayla Lutz [facility] 1.84.114 350.1.13.10 4.2.7.2.686 [id number] [facility] 2022-09-10 16:30:00 2022-09-10 23:59:00 Outpatient R BERNICE COLUNGA [facility] [id number] [facility] 2022-09-10 16:00:00 2022-09-10 16:15:00 Office Visit Bernice Colunga [facility] 1.284.114 350.1.13.10 4.2.7.2.686 [id number] [facility] 2022-09-10 00:00:00 2022-09-10 00:00:00 Orders Only Doctor Unassigned, [place] [facility] 1.20.114 350.1.13.10 4.2.7.2.686 [id number] [facility] 2022-09-10 00:00:00 2022-09-10 00:00:00 Telephone [facility] [facility] 1.2.840.114 350.1.13.10 4.2.7.2.686 [id number] [facility] 2022-09-09 00:00:00 2022-09-09 00:00:00 Telephone Keanu [facility] GREGOR?[facility] 1..840.114 350.1.13.10 4.2.7.2.686 [id number] [facility] 2022-06-13 00:00:00 2022-06-13 00:00:00 Transition of Care Chelo Cornejo [facility] 1..840.114 350.1.13.10 4.2.7.2.686 [id number] [facility] 2022-06-10 11:37:00 2022-06-12 16:00:00 Outpatient ANNAMARIA [facility] [id number] [facility] 2022-06-10 11:37:00 2022-06-12 16:00:00 Emergency Brodie Clemons David [facility] 1..840.114 350.1.13.10 4.2.7.2.686 [id number] [facility] 2022-04-19 08:55:00 2022-04-19 23:59:00 Outpatient BERNICE REYES [facility] [id number] [facility] 2022-04-19 08:55:00 2022-04-19 23:59:00 Outpatient BERNICE REYES [facility] [id number] [facility] 2022-04-19 08:45:00 2022-04-19 09:00:00 Office Visit Bernice Colunga [facility] 1.2.840.114 350.1.13.10 4.2.7.2.686 [id number] [facility] 2022-02-25 15:15:00 2022-02-25 15:15:00 [facility] [id number] [facility] 2022-02-21 10:45:00 2022-02-21 10:45:00 Outpatient R BERNICE COLUNGA [facility] [id number] [facility] 2022-02-18 10:30:00 2022-02-18 10:30:00 Outpatient R FILIPE WIGGINS [facility] [id number] [facility] 2022-01-18 10:00:00 2022-01-18 10:00:00 Outpatient R CLAYTON GARRIDO [facility] [id number] [facility] 2022-01-17 00:00:00 2022-01-17 00:00:00 Refill Kayla Lutz [facility] 1..840.114 350.1.13.10 4.2.7.2.686 [id number] [facility] 2022-01-14 06:59:00 2022-01-14 09:15:00 Outpatient R KAYLA LUTZ [facility] [id number] [facility] 2022-01-14 06:59:00 2022-01-14 09:15:00 Hospital Encounter Kayla Lutz [facility] 1..840.114 350.1.13.10 4.2.7.2.686 [id number] [facility] 2022-01-14 08:20:00 2022-01-14 09:12:00 Surgery Kayla Lutz [facility] 1..840.114 350.1.13.10 4.2.7.2.686 [id number] [facility] 2022-01-14 08:25:00 2022-01-14 08:39:00 Anesthesia Event Bharath Padgett, Oliver Fajardo [facility] 1.2.840.114 350.1.13.10 4.2.7.2.686 [id number] [facility] 2022-01-14 00:00:00 2022-01-14 00:00:00 Orders Only Doctor Unassigned, [place] [facility] 1.2.840.114 350.1.13.10 4.2.7.2.686 [id number] [id number] [facility] 2022-01-11 07:39:32 2022-01-11 23:59:00 Hospital Encounter Kayla Lutz [facility] 1.2840.114 350.1.13.10 4.2.7.2.686 [id number] [facility] 2022-01-11 07:39:18 2022-01-11 23:59:00 Outpatient R KAYLA LUTZ [facility] [id number] [facility] 2022-01-11 08:30:00 2022-01-11 08:45:00 Instructional Technology Coach Visit Pob, Adc Lab Main Kayla Lutz [facility] PROFESSIO [facility] 1.0.114 350.1.13.10 4.2.7.2.686 [id number] [facility] 2022-01-11 08:15:00 2022-01-11 08:30:00 Laboratory Only Only, Adc Test Kayla Lutz [facility] 1.840.114 350.1.13.10 4.2.7.2.686 [id number] [facility] 2022-01-11 08:15:00 2022-01-11 08:15:00 Outpatient R KAYLA LUTZ [facility] [id number] [facility] 2022-01-11 00:00:00 2022-01-11 00:00:00 Telephone Kayla Lutz [facility] GREGOR?[facility] 1.2.840.114 350.1.13.10 4.2.7.2.686 [id number] [facility] 2022-01-04 11:15:00 2022-01-04 11:30:00 Office Visit Bernice Colunga [facility] 1..840.114 350.1.13.10 4.2.7.2.686 [id number] [facility] 2022-01-04 11:15:00 2022-01-04 11:15:00 Outpatient R KEANU BERNICE [facility] [id number] [facility] 2022-01-04 11:15:00 2022-01-04 11:15:00 Outpatient R COLUNGA BERNICE [facility] [id number] [facility] 2022-01-04 00:00:00 2022-01-04 00:00:00 Prep For Surgery Kayla Lutz [facility] 1..840.114 350.1.13.10 4.2.7.2.686 [id number] [facility] 2021-12-20 10:00:00 2021-12-20 10:00:00 Outpatient R KAYLA LUTZ [facility] [id number] [facility] 2021-12-11 00:00:00 2021-12-11 00:00:00 Telephone Kayla Lutz [facility] G[facility] 1..840.114 350.1.13.10 4.2.7.2.686 [id number] [facility] 2021-12-07 10:23:58 2021-12-07 23:59:00 Outpatient R BERNICE COLUNGA [facility] [id number] [facility] 2021-12-07 10:23:58 2021-12-07 23:59:00 Hospital Encounter Bernice Colunga [facility] 1.840.114 350.1.13.10 4.2.7.2.686 [id number] [facility] 2021-11-30 10:45:00 2021-11-30 11:13:44 Outpatient R BERNICE COLUNGA [facility] [id number] [facility] 2021-11-30 10:45:00 2021-11-30 11:13:44 [facility] 1.840.114 350.1.13.10 4.2.7.2.686 [id number] [facility] 2021-11-30 10:45:00 2021-11-30 11:13:44 Outpatient R BERNICE COLUNGA [facility] [id number] [facility] 2021-11-28 00:00:00 2021-11-28 00:00:00 Telephone [facility]LANJ[facility] 1.840.114 350.1.13.10 4.2.7.2.686 [id number] [facility] 2021-11-28 00:00:00 2021-11-28 00:00:00 Orders Only Doctor Unassigned, [place] [facility] 1.840.114 350.1.13.10 4.2.7.2.686 [id number] [id number] [facility] 2021-11-27 00:00:00 2021-11-27 00:00:00 Telephone Kayla Lutz [facility] 1.2840.114 350.1.13.10 4.2.7.2.686 [id number] [facility] 2021-11-22 00:00:00 2021-11-22 00:00:00 Orders Only Doctor Unassigned, [place] [facility] 1.2840.114 350.1.13.10 4.2.7.2.686 [id number] [facility] 2021-11-21 00:00:00 2021-11-21 00:00:00 Telephone Piotr Lutzig [place]once [facility] 1.2840.114 350.1.13.10 4.2.7.2.686 [id number] [facility] 2021-11-21 00:00:00 2021-11-21 00:00:00 Telephone [facility]ig [facility] 1.2840.114 350.1.13.10 4.2.7.2.686 [id number] [facility] 2021-11-19 00:00:00 2021-11-19 00:00:00 Telephone [facility] 1.2840.114 350.1.13.10 4.2.7.2.686 [id number] [facility] 2021-11-19 00:00:00 2021-11-19 00:00:00 Telephone Piotr Lutzig [place] [facility] 1.2840.114 350.1.13.10 4.2.7.2.686 [id number] [facility] 2021-11-12 00:00:00 2021-11-12 00:00:00 Telephone Kayla Lutz [facility] 1..840.114 350.1.13.10 4.2.7.2.686 [id number] [facility] 2021-10-29 00:00:00 2021-10-29 00:00:00 Telephone Kayla Lutz [facility] 1..840.114 350.1.13.10 4.2.7.2.686 [id number] [facility] 2021-10-26 00:00:00 2021-10-26 00:00:00 Telephone Kayla Lutz [facility] 1..840.114 350.1.13.10 4.2.7.2.686 [id number] [facility] 2021-10-24 09:30:00 2021-10-24 10:20:40 Outpatient R KEANU BERNICE [facility] [id number] [facility] 2021-10-24 09:30:00 2021-10-24 10:20:40 Office Visit Keanu [facility] GREGOR?[facility] 1.2.840.114 350.1.13.10 4.2.7.2.686 [id number] [facility] 2021-10-24 09:30:00 2021-10-24 10:20:40 Outpatient R BERNICE COLUNGA [facility] [id number] [facility] 2021-10-24 09:30:00 2021-10-24 10:20:40 Office Visit Keanu [facility] GREGOR?[facility] 1.2.840.114 350.1.13.10 4.2.7.2.686 [id number] [facility] 2021-10-19 00:00:00 2021-10-19 00:00:00 Telephone Keanu [facility] OFFICE [facility] 1.2.840.114 350.1.13.10 4.2.7.2.686 [id number] 198 [id number] [facility] 2021-10-18 00:00:00 2021-10-18 00:00:00 Telephone Keanu [facility] OFF[facility] 1..840.114 350.1.13.10 4.2.7.2.686 [id number] [facility] 2021-10-12 14:00:00 2021-10-12 15:00:16 Outpatient RENÉE VILLARREAL HOWARD [facility] [id number] [facility] 2021-10-02 00:00:00 2021-10-02 00:00:00 Telephone Keanu [facility] OFFICE [facility] 1..840.114 350.1.13.10 4.2.7.2.686 [id number] [facility] 2021-10-02 00:00:00 2021-10-02 00:00:00 Orders Only Doctor Unassigned, [place] [facility] 1.2.840.114 350.1.13.10 4.2.7.2.686 [id number] [id number] [facility] 2021-09-27 00:00:00 2021-09-27 00:00:00 Orders Only Doctor Unassigned, [place] [facility] 1.2.840.114 350.1.13.10 4.2.7.2.686 [id number] [facility] 2021-09-24 15:50:00 2021-09-24 23:59:00 Outpatient BERNICE REYES [facility] [id number] [facility] 2021-07-02 00:00:00 2021-07-02 00:00:00 (TEL) STLMLC STLMLC [id number] [facility] 2021-06-27 14:15:00 2021-06-27 14:15:00 Outpatient R BERNICE COLUNGA [facility] [id number] [facility] 2021-06-27 14:15:00 2021-06-27 14:15:00 Outpatient R KEANU [facility] [id number] [facility] 2021-06-27 13:39:57 2021-06-27 13:54:57 Office Visit Keanu [facility]?KAYLANJory [facility] 1.840.114 350.1.13.10 4.2.7.2.686 [id number] [facility] 2021-06-26 15:45:00 2021-06-26 15:45:00 Outpatient R KEANU [facility] [id number] [facility] 2021-06-26 15:45:00 2021-06-26 15:45:00 [facility] [id number] [facility] 2021-06-25 00:00:00 2021-06-25 00:00:00 [facility] 1..840.114 350.1.13.10 4.2.7.2.686 [id number] [facility] 2021-05-23 00:00:00 2021-05-23 00:00:00 Telephone Keanu [facility] Gregor?Kaylanjory [facility] 1..840.114 350.1.13.10 4.2.7.2.686 [id number] [facility] 2021-05-22 13:00:00 2021-05-22 23:59:00 Hospital Encounter Keanu [facility] Gregor?Kaylanjory [facility] 1..840.114 350.1.13.10 4.2.7.2.686 [id number] [facility] 2021-05-22 16:15:00 2021-05-22 14:56:21 Outpatient R BERNICE COLUNGA [facility] [id number] [facility] 2021-05-22 16:15:00 2021-05-22 14:56:21 Outpatient R KEANU [facility] [id number] [facility] 2021-05-22 12:47:56 2021-05-22 14:56:21 Office Visit [facility]ice [facility]?Naty [facility]ared[facility] 1..840.114 350.1.13.10 4.2.7.2.686 [id number] [facility] 2021-05-22 00:00:00 2021-05-22 00:00:00 Orders Only Doctor Unassigned, [place] [facility] 1..840.114 350.1.13.10 4.2.7.2.686 [id number] [id number] [facility] 2021-04-23 10:10:00 2021-04-23 10:10:00 [facility] [id number] 2021-04-23 10:00:06 2021-04-23 10:00:17 Imm[facility] 1..840.114 350.1.13.10 4.2.7.2.686 [id number] [facility] 2021-04-02 14:40:00 2021-04-02 14:40:00 [facility] [id number] [facility] 2021-04-02 13:41:25 2021-04-02 13:41:44 Imm/Inj Visit NurseHailey Immuniztoo Resendiz [facility] Building 1.2.840.114 350.1.13.10 4.2.7.2.686 [id number] [facility] 2021-01-26 00:00:00 2021-01-26 00:00:00 RefLacey Mccormack [facility] 1.2.840.114 350.1.13.58 9.2.7.2.686 [id number] [facility] 2021-01-26 00:00:00 2021-01-26 00:00:00 Refill Lacey Iverson [facility] 1.2.840.114 350.1.13.58 9.2.7.2.686 [id number] 2020-12-18 09:22:21 2020-12-18 12:11:17 Office Visit Jonas Barker [facility] 1 1.2.840.114 350.1.13.58 9.2.7.2.686 [id number] [facility] 2020-12-18 09:22:21 2020-12-18 12:11:17 Office Visit Jonas Barker [facility] 1 1.2.840.114 350.1.13.58 9.2.7.2.686 [id number] 2020-09-06 00:00:00 2020-09-06 00:00:00 (TEL) STLMLC STLMLC [id number] [facility] 2020-07-20 00:00:00 2020-07-20 00:00:00 (TEL) STLMLC STLMLC [id number] [facility] 2020-07-12 00:00:00 2020-07-12 00:00:00 (TEL) STLMLC STLMLC [id number] [facility] 2020-06-21 00:00:00 2020-06-21 00:00:00 Outpatient STLMLC STLMLC [id number] [facility] 2020-06-12 00:00:00 2020-06-12 00:00:00 Outpatient [facility] [id number] [facility] 2020-06-06 00:00:00 2020-06-06 00:00:00 Outpatient [facility] [id number] [facility] 2020-01-26 20:05:2020-01-26 21:04:00 Emergency [facility] 1.2.840.114 350.1.13.10 4.2.7.2.686 [id number] 2020-01-26 20:05:19 2020-01-26 21:04:00 Emergency [facility] 1.2.840.114 350.1.13.10 4.2.7.2.686 [id number] [facility] 2020-01-26 00:00:00 2020-01-26 00:00:00 Orders Only Doctor Unassigned, [place] [facility] 1.2840.114 350.1.13.10 4.2.7.2.686 [id number] [id number] 2020-01-26 00:00:00 2020-01-26 00:00:00 Orders Only Doctor Unassigned, [place] [facility] 1.2.840.114 350.1.13.10 4.2.7.2.686 [id number] [id number] [facility] 2020-01-20 08:00:00 2020-01-20 08:00:00 Outpatient [facility] [id number] [facility] 2020-01-20 00:00:00 2020-01-20 00:00:00 Orders Only Doctor Unassigned, [place] [facility] 1.2840.114 350.1.13.10 4.2.7.2.686 [id number] [id number] [facility] 2020-01-20 00:00:00 2020-01-20 00:00:00 Orders Only Doctor Unassigned, [place] [facility] 1.2.840.114 350.1.13.10 4.2.7.2.686 [id number] [id number] Results Test Description Test Time Test Comments Results Result Co mments Source [facility] GLUCOSE (AUTOMATED)2023-08-30 13:51:48* Test Item Value Reference Range Interpretation Comme [facility] POCT GLU (test code = 1057893407) 105 mg/dL 70-110 Lab Interpretation (test cod e = 79698-9) Normal [facility] Hemoglobin (A1C)2023-08-30 05:45:04* Test Item Value Reference Range Interpretation Comme [facility] HGB A1C (test code = 4548-4) 6.0 % 4.0-5.7 H SRIRAM (test code = SRIRAM) Reference RangesNormal: <5.7%Prediabetes: 5.7 - 6.4%Diabetes: > 6.5% Lab Interpretation (test code = 19098-9) Abnormal [facility] GLUCOSE (AUTOMATED)2023-08-30 02:23:04* Test Item Value Reference Range Interpretation Comme [facility] POCT GLU (test code = 4377643674) 101 mg/dL 70-110 Lab Interpretation (test cod e = 54886-1) Normal [facility] CenterCT ABDOMEN PELVIS W [id number] 00:26:53PROCEDURE:CT ABDOMEN PELVIS W CONTRAST ORDERING PHYSICIAN: [...] Vazquez: (S/I) = seriesnumber / image numberUnThe Hospitals of [facility] CampusCT CHEST PULMONARY ANGIOGRAM 2023-08-29 19:22:01CT SCAN [...] BONES/ CHEST WALL: No aggressive or acute abnormalities.[facility] CenterTRANUPAM [id number] 17:47:43* Test Item Value Reference Range Interpretation Comme nts TROPONIN I (test code = 4891219638) 0.001 ng/mL <=0.034 SRIRAM (test code = [...] of biotin. Lab Interpretation (test code = 41752-8) Normal [facility] CenterMagnesium2024-01-26 17:36:59* Test Item Value Reference Range Interpretation Comme nts MAGNESIUM (test code = 1561853922) 1.7 mg/dL 1.7-2.4 Lab Interpretation (test cod e = 63316-0) Normal [facility] CenterCOMP. METABOLIC PANEL (04550)2023-08-29 17:36:38* Test Item Value Reference Range Interpretation Comme nts NA (test code = 9454616129) 139 mmol/L 135-145 K (test code = 5676983638) 4.1 mmol/L 3.5-5.0 CL (test code = 3572967257) 107 mmol/L 98-108 CO2 TOTAL (test code = 7107296358) 25 mmol/L 23-31 AGAP (test code = 1285435047) 7 2-16 BUN (test code = 1929521639) 13 mg/dL 7-23 GLUCOSE (test code = 9478021713) 114 mg/dL 70-110 H CREATININE (test code = 2760418877) 0.75 mg/dL 0.50-1.04 TOTAL BILI (test code = 6244171861) 0.6 mg/dL 0.1-1.1 CALCIUM (test code = 5640337569) 9.6 mg/dL 8.6-10.6 T PROTEIN (test code = 3207445468) 7.7 g/dL 6.3-8.2 ALBUMIN (test code = 8304358064) 4.1 g/dL 3.5-5.0 ALK PHOS (test code = 8739559788) 121 U/L 34-122 ALTv (test code = 1742-6) 16 U/L 5-35 AST(SGOT) (test code = 1741872069) 24 U/L 13-40 eGFR (test code = 95601-8) 94.7 mL/min/1.73m2 CKD-EPI eGFR (2020). Assuming creatinine has been stable day-to-day for at least three months, the eGFR indicates Category G1 (>= 90 mL/min/1.73 m2) Lab Interpretation (test code = 56299-9) Abnormal [facility] CenterLIPASE2024-01-26 17:36:22* Test Item Value Reference Range Interpretation Comme nts LIPASE (test code = 6213367090) 82 U/L 0-220 Lab Interpretation (test cod e = 02818-4) Normal [facility] CenterD-[id number] 17:34:40* Test Item Value Reference Range Interpretation Comments D-DIMER (test code = 3122322964) 0.96 See_Comment H [Automated message] The system [...] a diagnosis. Lab Interpretation (test code = 92985-1) Abnormal [facility] CenterXR CHEST 1 [id number] 17:17:59EXAM: XR CHEST 1 08/29/2023 10:59 AM HISTORY: 53 years-old Female with chest pain . TECHNIQUE: Portable AP view of the chest. COMPARISON: None. FINDINGS: Lines and tubes: None. Cardiomediastinal: The cardiomediastinal silhouette is normal in sizeaccounting for depth of inspiration. Lungs and pleura: Low lung volumes. Noacute infiltrate or effusion. Included osseous structures show no acute abnor mality.[facility] WITH [id number] 17:17:19* Test Item Value Reference Range Interpretation [...] g/dL 31.6-35.1 L RDW-SD (test code = 47113-9) 52.5 fL 39.0-49.9 H RDW-CV (test code = 788-0) 17.5 % 12.0-15.5 H PLT (test code = 777-3) 344 See_Comment [Automated messa ge] The system which generated this result transmitted reference range: 166 - 358 10*3/?L. The reference range was not used to interpret this result as normal/abnormal. MPV (test code = 20568-0) 10.0 fL 9.5-12.9 NRBC/100 WBC (test code = 4828342411) 0.0 See_Comment [Automated QBInternational ssage] The system which generated this result transmitted reference range: 0.0 - 10.0 /100 WBCs. The reference range was not used to interpret this result as normal/abnormal. NRBC x10^3 (test code = 6512650771) See_Comment [Automated messa ge] The system which generated this result transmitted reference range: 10*3/?L. The reference range was not used to interpret this result as normal/abnormal. GRAN MAT (NEUT) % (test code = 770-8) 68.0 % IMM GRAN % (test code = 8811403889) 0.20 % LYMPH % (test code = 736-9) 23.8 % MONO % (test code = 5905-5) 6.1 % EOS % (test code = 713-8) 1.6 % BASO % (test code = 706-2) 0.3 % GRAN MAT x10^3(ANC) (test code = 3360555395) 4.14 10*3/uL 1.88-7.09 IMM GRAN x10^3 (test code = 6088280696) 0.00-0.06 LYMPH x10^3 (test code = 731-0) 1.45 10*3/uL 1.32-3.29 MONO x10^3 (test code = 742-7) 0.37 10*3/uL 0.33-0.92 EOS x10^3 (test code = 711-2) 0.10 10*3/uL 0.03-0.39 BASO x10^3 (test code = 704-7) 0.01-0.07 Lab Interpretation (test code = 84608-8) [facility] This is a pre-surgical type and screen. ONCE [id number] 13:38:39* Test Item Value Reference Range Interpretation Comme nts ABO & RH (test code = 20) O Positive Performed at [facility] Laboratory Services - [facility] Blood [address] [place], [place] [id number] Free: [phone] No. [id number] IAT (test code = 1185) Negative Performed at [facility] Laboratory Services - [facility] Blood [address] [place], [place] [address]Toll Free: [phone] No. [id number] [facility] This is a pre-surgical type and screen. ONCE [id number] 13:38:39* Test Item Value Reference Range Interpretation Comme nts ABO & RH (test code = 20) O Positive Performed at [facility] Laboratory [facility] - [facility] Blood [address] [place] [address] Free: [phone] No. [id number] IAT (test code = 1185) Negative Performed at [facility] Laboratory [facility] Blood [address] [place] [address] Free: [phone] No. [id number] [facility] GLUCOSE (AUTOMATED)2022-09-23 12:53:02* Test Item Value Reference Range Interpretation Comme nts POCT GLU (test code = 6067944253) 105 mg/dL 70-110 Lab Interpretation (test cod e = 58803-9) Normal [facility] GLUCOSE (AUTOMATED)2022-09-23 12:53:02* Test Item Value Reference Range Interpretation Comme nts POCT GLU (test code = 8713718410) 105 mg/dL 70-110 Lab Interpretation (test cod e = 87127-4) [id number]:00:16* Test Item Value Reference Range Interpretation Comme nts TROPONIN I (test code = 7925405249) 0.003 ng/mL <=0.034 SRIRAM (test code = [...] of biotin. Lab Interpretation (test code = 45936-3) Normal [facility] GLUCOSE (AUTOMATED)2022-06-12 18:17:12* Test Item Value Reference Range Interpretation Comme nts POCT GLU (test code = 2242601410) 161 mg/dL 70-110 H Lab Interpretation (test cod e = 05302-8) Abnormal [facility] GLUCOSE (AUTOMATED)2022-06-12 08:00:25* Test Item Value Reference Range Interpretation Comme nts POCT GLU (test code = 3984750005) 122 mg/dL 70-110 H Lab Interpretation (test cod e = 23190-6) Abnormal [facility] GLUCOSE (AUTOMATED)2022-06-12 01:58:54* Test Item Value Reference Range Interpretation Comme nts POCT GLU (test code = 8649453536) 124 mg/dL 70-110 H Lab Interpretation (test cod e = 63584-9) Abnormal [facility] GLUCOSE (AUTOMATED)2022-06-11 22:59:46* Test Item Value Reference Range Interpretation Comme nts POCT GLU (test code = 2795398706) 115 mg/dL 70-110 H Lab Interpretation (test cod e = 32321-1) Abnormal [facility] GLUCOSE (AUTOMATED)2022-06-11 22:59:46* Test Item Value Reference Range Interpretation Comme nts POCT GLU (test code = 3897112249) 104 mg/dL 70-110 Lab Interpretation (test cod e = 65931-0) Normal [facility] GLUCOSE (AUTOMATED)2022-06-11 14:11:49* Test Item Value Reference Range Interpretation Comme nts POCT GLU (test code = 7227542750) 91 mg/dL 70-110 Lab Interpretation (test cod e = 74984-0) [facility] [id number] 09:07:50* Test Item Value Reference Range Interpretation Comme nts IRON (test code = 2539095896) 39 ug/dL 50-160 L TIBC (test code = 7555054168) 346 ug/dL 250-410 % FE SAT (test code = 5276804127) 11 % 20-50 L Lab Interpretation (test cod e = 87721-9) [facility]normal [facility]IN [id number] 08:27:06* Test Item Value Reference Range Interpretation Comme nts FERRITIN (test code = 6479551720) 7.5 ng/mL 11.0-264.0 L SRIRAM (test code = SRIRAM) Biotin has been reported to cause a negative bias, interpret results relative to patient's use of biotin. Lab Interpretation (test code = 04070-5) Abnormal [facility] CenterN-TERMINAL [id number] 08:01:40* Test Item Value Reference Range Interpretation Comme nts NT-proBNP (test code = 0906750146) 39 pg/mL See_Comment [Automated message] The system which generated this result transmitted reference range: <=125. The reference range was not used to interpret this result as normal/abnormal. SRIRAM (test code = SRIRAM) Biotin has been reported to cause a negative bias, interpret results relative to patient's use of biotin. Lab Interpretation (test code = 34782-1) Normal [facility] (AUTOMATED)2022-06-11 07:59:15* Test Item Value Reference Range Interpretation Comme nts POCT GLU (test code = 5489509241) 141 mg/dL 70-110 H Lab Interpretation (test cod e = 74656-1) Abnormal [facility]UM2022-11-08 07:59:15* Test Item Value Reference Range Interpretation Comme nts MAGNESIUM (test code = 3742676033) 1.6 mg/dL 1.7-2.4 L Lab Interpretation (test cod e = 33810-3) Abnormal [facility]OS[facility]ORUS2022-11-08 07:59:10* Test Item Value Reference Range Interpretation Comme nts PHOSPHORUS (test code = 2957593435) 2.6 mg/dL 2.5-5.0 Lab Interpretation (test cod e = 13821-2) Normal [facility] CenterURIC [id number] 07:59:05* Test Item Value Reference Range Interpretation Comme nts URIC ACID (test code = 4793892430) 3.0 mg/dL 2.9-6.0 Lab Interpretation (test cod e = 70452-7) Normal [facility] (NA, K, CL, CO2, GLUCOSE, BUN, CREATININE, CA)2022-06-10 18:34:39* Test Item Value Reference Range Interpretation Comme nts NA (test code = 7343776273) 139 mmol/L 135-145 K (test code = 2418604575) 4.2 mmol/L 3.5-5.0 CL (test code = 5522818134) 105 mmol/L 98-108 CO2 TOTAL (test code = 1398456988) 28 mmol/L 23-31 AGAP (test code = 4589408381) 2-16 BUN (test code = 1730914911) 15 mg/dL 7-23 GLUCOSE (test code = 8461684308) 106 mg/dL 70-110 CREATININE (test code = 9536115824) 0.75 mg/dL 0.50-1.04 CALCIUM (test code = 2002216364) 9.0 mg/dL 8.6-10.6 eGFR (test code = 7303258273) mL/min/1.73m2 SRIRAM (test code = SRIRAM) Association [...] or urine or abnormalities in imaging tests). [facility] CenterHEP[facility] FUNCTION PANEL (03878) (ALB,T.PRO,BILI T,BU/BC,ALT,AST,ALK PHOS)2022-06-10 18:34:39* Test Item Value Reference Range Interpretation Comme nts TOTAL BILI (test code = 7468977156) 0.4 mg/dL 0.1-1.1 BILI UNCON (test code = 4892490153) 0.2 mg/dL 0.1-1.1 BILI CONJ (test code = 4731482731) 0.0 mg/dL 0.0-0.3 T PROTEIN (test code = 7580981690) 6.9 g/dL 6.3-8.2 ALBUMIN (test code = 2459796452) 4.0 g/dL 3.5-5.0 ALK PHOS (test code = 4933144713) 139 U/L 34-122 H ALTv (test code = 1742-6) 23 U/L 5-35 AST(SGOT) (test code = 5229479230) 21 U/L 13-40 Lab Interpretation (test cod e = 28523-8) Abnormal [facility] CenterLIPASE2022-11-07 18:34:39* Test Item Value Reference Range Interpretation Comme nts LIPASE (test code = 2249188203) 108 U/L 0-220 Lab Interpretation (test cod e = 20780-2) Normal [facility] WITH [id number] 18:27:20* Test Item Value Reference Range Interpretation Comme nts WBC (test code = 6690-2) See_Comment [Automated [employer]] The system which generated this result transmitted reference range: 4.30 - 11.10 10*3/?L. The reference range was not used to interpret this result as normal/abnormal. RBC (test code = 789-8) See_Comment [Automated [employer]] The system which generated this result [...] 31.8 g/dL 31.6-35.1 RDW-SD (test code = 32194-3) 48.3 fL 39.0-49.9 RDW-CV (test code = 788-0) 15.4 % 12.0-15.5 PLT (test code = 777-3) See_Comment [Automated messa ge] The system which generated this result transmitted reference range: 166 - 358 10*3/?L. The reference range was not used to interpret this result as normal/abnormal. MPV (test code = 21439-2) 10.4 fL 9.5-12.9 NRBC/100 WBC (test code = 4797873582) See_Comment [Automated me ssage] The system which generated this result transmitted reference range: 0.0 - 10.0 /100 WBCs. The reference range was not used to interpret this result as normal/abnormal. NRBC x10^3 (test code = 0753890292) See_Comment [Automated me ssage] The system which generated this result transmitted reference range: 10*3/?L. The reference range was not used to interpret this result as normal/abnormal. GRAN MAT (NEUT) % (test code = 770-8) 62.1 % IMM GRAN % (test code = 7634133704) 0.50 % LYMPH % (test code = 736-9) 29.1 % MONO % (test code = 5905-5) 7.3 % EOS % (test code = 713-8) 0.6 % BASO % (test code = 706-2) 0.4 % GRAN MAT x10^3(ANC) (test code = 9506018859) 5.30 10*3/uL 1.88-7.09 IMM GRAN x10^3 (test code = 6593860842) 0.04 10*3/uL 0.00-0.06 LYMPH x10^3 (test code = 731-0) 2.48 10*3/uL 1.32-3.29 MONO x10^3 (test code = 742-7) 0.62 10*3/uL 0.33-0.92 EOS x10^3 (test code = 711-2) 0.05 10*3/uL 0.03-0.39 BASO x10^3 (test code = 704-7) 0.03 10*3/uL 0.01-0.07 [facility] Consult Notes Date/Time Note Provider Source 2023-08-30 13:19:15 Associated Order(s): CONSULT CARDIOLOGY [facility] Cardiology Consult PCP: Estefany Evans Date of Service: 08/30/2023 CHIEF COMPLAINT/reason for consult: Chest pain HISTORY OF PRESENT ILLNESS This is a 53 years old female with past med history of type 2 diabetes and morbid obesity. She came to [facility] for chest pain. It is [...] Left 01/14/2022 Surgeon: Kayla Lutz MD; Location: [facility] JOINT SURGERY right shoulder MAJOR JOINT INJECTION Bilateral 09/23/2022 Surgeon: Kayla Lutz MD; Location: [facility] TUBAL LIGATION Family History Problem Relation Age [...] of further assistance. Bree Cervantes MD, [facility], IVAN [employer] Division of Cardiovascular Medicine [facility] - Health History and Physical Notes Date/Time Note Provider Source 2023-08-29 20:24:02 MEDICINE [facility] ADMIT H&P Date of Service: 08/29/2023 CHIEF [...] AGENT LOWER EXTREMITY (SHX) Left 01/14/2022 Surgeon: aKyla Lutz MD; Location: [facility] JOINT SURGERY right shoulder MAJOR JOINT INJECTION Bilateral 09/23/2022 Surgeon: Kayla Lutz MD; Location: [facility] TUBAL LIGATION Family History Problem Relation Age [...] Prophylaxis: DVT- enoxaparin Code Status: Full Code [facility] STAFF [facility]
--- NOTE | 2024-08-05 13:58 | RAD REPORT ---
EXAM: CT brain without contrast HISTORY: DIZZINESS COMPARISON: 12/12/2022 TECHNIQUE: Multiple contiguous axial images were obtained and a CT of the brain without contrast. Sag ittal and coronal reformats were performed. One or more of the following dose reduction techniques were used: Automated exposure control, adjust ment of the mA and/or kV according to patient size, and/or iterative reconstruction. FINDINGS: No evidence of hydrocephalus, intracranial hemorrhage, or extra-axial fluid collection. The brain is normal in morphology. No evidence of midline shift or areas of brain edema. The calvarium is intact. The visualized paranasal sinuses and mastoid air cells are essentially clear . IMPRESSION: No evidence of acute intracranial abnormality.
[2024-08-05 15:02] LABS: Absolute Lymphocytes (CBC) 1.1 K/uL (0.7-4.9); Absolute Monocytes 0.6 K/uL (0.1-1.3); Absolute Neutrophil 2.7 K/uL (1.8-8.0); Basophils % 0.4 % (0-1.3); Eosinophils % 0.9 % (0-4.4); Hematocrit 36.9 % (36.0-45.0); Hemoglobin 11.9 g/dL (12.0-15.0); Lymphocytes % 24.2 % (15.3-44.8); MCH 28.2 pg (27.0-35.0); MCHC 32.2 g/dL (32.0-36.0); MCV 87.5 fL (80-100); MPV 7.8 fL (7.6-11.3); Monocytes % 13.3 % (3.3-12.3); Neutrophils % 61.2 % (41.7-73.7); Nucleated Red Blood Cells % 0.1 % (0-0); Platelets 285 thou/uL (152-406); RBC Red Blood Cell Count 4.21 M/uL (3.86-4.86); Red Cell Distribution Width 16.5 % (12.1-15.2)
[2024-08-05 15:07] LABS: PT Prothrombin Time 12.1 SECONDS (9.4-12.5); Protime INR 1.08
[2024-08-05 15:19] LABS: ALT/SGPT 34 U/L (13-56); AST/SGOT 37 U/L (15-37); Albumin 3.1 g/dL (3.4-5.0); Albumin/Globulin Ratio 0.7 (1.1-1.8); Alkaline Phosphatase 126 U/L (45-117); Anion Gap 10.7 mEq/L (5.0-15.0); BUN Blood Urea Nitrogen 12 mg/dL (7-18); Bicarbonate 24 mEq/L (21-32); Bilirubin Total 0.4 mg/dL (0.2-1.0); Globulin 4.6 g/dL (2.3-3.5); Glomerular Filtration Rate 91 ml/min (=/>90); Glucose Level 99 mg/dL (74-106); Magnesium 1.8 mg/dL (1.6-2.4); Potassium 3.7 mEq/L (3.5-5.1); Protein, Total 7.7 g/dL (6.4-8.2); Sodium Level 137 mEq/L (136-145); Troponin High Sensitivity 3.5 pg/mL (<58.9)
[2024-08-05 15:20] LABS: Bilirubin Direct < 0.2 mg/dL (0-0.2); Bilirubin Indirect, Calculated 0.2 mg/dL (0.2-0.8)
[2024-08-05] MEDS ORDERED: MECLIZINE HCL 12.5 MG TAB ONE (15:27)
[2024-08-05] MEDS ORDERED: ONDANSETRON 4 MG/2 ML VIAL ONE (15:46)
[2024-08-05 16:04] LABS: Specific Gravity 1.022 (1.005-1.030); Urine Bacteria None Seen /HPF (<20); Urine Bilirubin NEGATIVE (Negative); Urine Blood 2+ (Negative); Urine Clarity Turbid (Clear); Urine Color Yellow (Yellow); Urine Crystals Unidentified Few /HPF (None Seen); Urine Culture Reflex Order NOT NEEDED; Urine Glucose NEGATIVE (Negative); Urine Ketones 1+ (Negative); Urine Microscopic Reflex YN ORDER UMIC; Urine Mucus Slight /HPF (None Seen); Urine Nitrite NEGATIVE (Negative); Urine Protein TRACE (Negative); Urine RBC <5 /HPF (None Seen); Urine Urobilinogen Normal (Normal); Urine WBC <5 /HPF (<5); Urine pH 5.5 (5.0-7.0)
[2024-08-05 16:10] LABS: Barbiturates NEGATIVE (NEGATIVE); Benzodiazepines NEGATIVE (NEGATIVE); Cocaine NEGATIVE (NEGATIVE); METHAMPHETAM NEGATIVE (NEGATIVE); Methadone NEGATIVE (NEGATIVE); Opiates NEGATIVE (NEGATIVE); Phencyclidine NEGATIVE (NEGATIVE); THC Cannibis NEGATIVE (NEGATIVE)
--- NOTE | 2024-08-05 16:24 | EDPHYS ---
Physician Documentation [facility] Name: Jazmín Perez Age: 54 yrs Sex: Female : 1970 Arrival Date: 08/05/2024 Time: 12:44 Bed 8 Private MD: ED Physician Onel Rausch HPI: 08/05 14:09 This 54 yrs old Female presents to ER via Wheelchair with complaints of sb4 Vomiting, Dizziness. 14:09 Patient reports decreased appetite, nausea and vomiting x 2 days. Says she woke up sb4 yesterday and was feeling very dizzy. Initially thought was vertigo and thought it would go away but it has persisted. She denies any history of vertigo. States that she has had a lot going on at home so she has been stressed out. Was recently admitted and discharged for a chest pain rule out. [employer] DIRECTOR: 16:42 unknown cm10 Historical: - Allergies: 13:01 Codeine; nauseous; iw - PMHx: 13:01 allergies; Anxiety; Diabetes - NIDDM; iw - PSHx: 13:01 Right hip; iw - Immunization history:: Adult Immunizations up to date. - Infectious Disease History:: Denies. - Social history:: Smoking status: Patient denies any tobacco usage or history of. ROS: 14:09 Constitutional: Negative for fever, chills, and weight loss, sb4 14:09 Abdomen/GI: Positive for nausea and vomiting, 14:09 Neuro: Positive for dizziness, 14:09 All other systems are negative, Exam: 14:09 Head/Face: Normocephalic, atraumatic. Eyes: Extra-ocular motions intact. Periorbital sb4 areas with no swelling, redness, or edema. ENT: Mucous membranes moist. Cardiovascular: Regular rate and rhythm with a normal S1 and S2. Respiratory: No increased work of breathing, no retractions or nasal flaring. Abdomen/GI: Soft, non-tender, no distension. Skin: Warm, dry with normal turgor. Normal color with no rashes, no lesions, and no evidence of cellulitis. Neuro: Awake and alert, GCS 15, oriented to person, place, time, and situation. Motor strength 5/5 in all extremities. Sensory grossly intact. 14:09 Constitutional: The patient appears in no acute distress, alert, awake, obese, Vital Signs: 12:59 BP 106 / 69; Pulse 81; Resp 18; Temp 98.4; Pulse Ox 100% ; Weight 97.98 kg; Height 5 iw ft. 2 in. ; Pain 7/10; 15:01 BP 106 / 43 Supine; kb4 15:01 BP 124 / 73 Sitting; kb4 15:01 BP 108 / 73 Standing; kb4 16:38 BP 123 / 69; Pulse 90; Resp 16; Pulse Ox 97% on R/A; cm10 12:59 Body Mass Index 39.51 (97.98 kg, 157.48 cm) iw 12:59 Pain Scale: Adult iw MDM: 13:07 Medical Screening Exam initiated sb4 16:24 Differential diagnosis: viral gastroenteritis, volume depletion, intracranial mass. sb4 Data reviewed: vital signs, nurses notes, lab test result(s), EKG, radiologic studies, and as a result, I will discharge patient. Consideration of Admission/Observation Escalation of care including admission/observation considered. Care significantly affected by the following chronic conditions: Diabetes, Obesity. Counseling: I had a detailed discussion with the patient and/or guardian regarding the historical points, exam findings, and any diagnostic results supporting the discharge/admit diagnosis, lab results, radiology results, the need for outpatient follow up, for definitive care, to return to the emergency department if symptoms worsen or persist or if there are any questions or concerns that arise at home. 08/05 13:08 Order name: Basic Metabolic Panel; Complete Time: 15:21 sb4 08/05 13:08 Order name: CBC with Diff; Complete Time: 15:03 sb4 08/05 13:08 Order name: Hepatic Function; Complete Time: 15:21 sb4 08/05 13:08 Order name: Magnesium; Complete Time: 15:21 sb4 08/05 13:08 Order name: Protime (+inr); Complete Time: 15:07 sb4 08/05 13:08 Order name: Ptt, Activated; Complete Time: 15:07 sb4 08/05 13:08 Order name: Troponin High Sensitivity; Complete Time: 15:21 sb4 08/05 13:08 Order name: UDS; Complete Time: 16:13 sb4 08/05 13:08 Order name: Urinalysis w/ reflexes; Complete Time: 16:04 sb4 08/05 13:08 Order name: CT Head Brain wo Cont; Complete Time: 14:03 sb4 08/05 13:08 Order name: EKG; Complete Time: 13:08 sb4 08/05 13:08 Order name: Cardiac monitoring; Complete Time: 14:51 sb4 08/05 13:08 Order name: EKG - Nurse/Tech; Complete Time: 14:51 sb4 08/05 13:08 Order name: IV Saline Lock; Complete Time: 14:51 sb4 08/05 13:08 Order name: Labs collected and sent; Complete Time: 14:51 sb4 08/05 13:08 Order name: NPO; Complete Time: 14:51 sb4 08/05 13:08 Order name: O2 Per Protocol; Complete Time: 14:51 sb4 08/05 13:08 Order name: O2 Sat Monitoring; Complete Time: 14:51 sb4 08/05 13:08 Order name: Orthostatics; Complete Time: 14:52 sb4 08/05 15:37 Order name: PO challenge; Complete Time: 15:42 sb4 EC:02 Rate is 83 beats/min. Rhythm is regular, Normal Sinus Rhythm. OK interval is normal at sb4 148 msec. QRS interval is normal at 98 msec. QT interval is normal at 416 msec. No Q waves. T waves are Normal. No ST changes noted. Clinical impression: Normal ECG. Interpreted by me. Reviewed by me. Administered Medications: 15:36 Drug: Meclizine PO 25 mg PO once Route: PO; cm10 16:38 Follow up: Response: No adverse reaction cm10 16:00 Drug: Ondansetron IVP 4 mg IVP once; over 2 minutes Route: IVP; Site: left forearm; bp 16:38 Follow up: Response: No adverse reaction cm10 Disposition Summary: 08/05/24 16:24 Discharge Ordered Notes: Location: Home sb4 Problem: new sb4 Symptoms: have improved sb4 Condition: Stable sb4 Diagnosis - Nausea with vomiting, unspecified sb4 - Dizziness and giddiness sb4 Followup: sb4 - With: Emergency Department - When: As needed - Reason: Trouble breathing, Worsening of condition Discharge Instructions: - Discharge Summary Sheet sb4 - Nausea and Vomiting, Adult sb4 - Dizziness, [id number]-Fqrw sb4 Forms: - Patient Portal Instructions sb4 - Leadership Thank You Letter sb4 Prescriptions: - ondansetron 4 mg Oral Tablet,disintegrating - take 1 tablet ORAL route every 8 hours As needed; 10 tablet; Refills: 0, sb4 Product Selection Permitted - Meclizine 25 mg Oral Tablet - take 1 tablet ORAL route every 8 hours As needed; 30 tablet; Refills: 0, sb4 Product Selection Permitted Addendum: 08/10/2024 15:27 Co-signature as Attending Physician, Onel Rausch MD I agree with the assessment and c calderon plan of care. Signatures: Dispatcher [employer] EDOnel Gambino MD MD cha Williams, Irene, RN Bharath Galvin RN RN bp Brown, Sophia PADeborah PAAmina Welch RN RN cm10
--- NOTE | 2024-08-05 16:24 | ER ---
Nurse's Notes [facility] Name: Jazmín Perez Age: 54 yrs Sex: Female : 1970 Arrival Date: 08/05/2024 Time: 12:44 Bed 8 Private MD: Diagnosis: Nausea with vomiting, unspecified;Dizziness and giddiness Presentation: 08/05 12:59 Chief complaint: Patient states: has been dizzy and off balance X 2 days, also has been iw vomiting , can;t keep anything down. Coronavirus screen: At this time, the client does not indicate any symptoms associated with coronavirus-19. Ebola Screen: No symptoms or risks identified at this time. Initial Sepsis Screen: Does the patient meet any 2 criteria? No. Patient's initial sepsis screen is negative. Does the patient have a suspected source of infection? No. Patient's initial sepsis screen is negative. Risk Assessment: Do you want to hurt yourself or someone else? Patient reports no desire to harm self or others. Onset of symptoms was August 03, 2024. 12:59 Method Of Arrival: Wheelchair iw 12:59 Acuity: LOU 3 iw Triage Assessment: 13:00 General: Appears in no apparent distress. Behavior is cooperative, appropriate for age, bp anxious. Pain: Denies pain. EENT: No deficits noted. Neuro: Reports dizziness. Cardiovascular: No deficits noted. Respiratory: No deficits noted. GI: Reports nausea. : No signs and/or symptoms were reported regarding the genitourinary system. Derm: No deficits noted. Musculoskeletal: No deficits noted. DEBLOCKER: 16:42 unknown cm10 Historical: - Allergies: 13:01 Codeine; nauseous; iw - PMHx: 13:01 allergies; Anxiety; Diabetes - NIDDM; iw - PSHx: 13:01 Right hip; iw - Immunization history:: Adult Immunizations up to date. - Infectious Disease History:: Denies. - Social history:: Smoking status: Patient denies any tobacco usage or history of. Screenin:41 [facility] ED Fall Risk Assessment (Adult) History of falling in the last 3 months, cm10 including since admission No falls in past 3 months (0 pts) Confusion or Disorientation No (0 pts) Intoxicated or Sedated No (0 pts) Impaired Gait No (0 pts) Mobility Assist Device Used No (0 pt) Altered Elimination No (0 pt) Score/Fall Risk Level 0 - 2 = Low Risk Oriented to surroundings, Maintained a safe environment, Hourly rounding (assess needs \T\ fall precautionary measures) done. Abuse screen: Denies threats or abuse. Denies injuries from another. Nutritional screening: No deficits noted. Tuberculosis screening: No symptoms or risk factors identified. Assessment: 16:40 Reassessment: Patient appears in no apparent distress at this time. No changes from cm10 previously documented assessment. Patient and/or family updated on plan of care and expected duration. Pain level reassessed. Patient is alert, oriented x 3, equal unlabored respirations, skin warm/dry/pink. 16:42 GI: cm10 Vital Signs: 12:59 BP 106 / 69; Pulse 81; Resp 18; Temp 98.4; Pulse Ox 100% ; Weight 97.98 kg; Height 5 iw ft. 2 in. ; Pain 7/10; 15:01 BP 106 / 43 Supine; kb4 15:01 BP 124 / 73 Sitting; kb4 15:01 BP 108 / 73 Standing; kb4 16:38 BP 123 / 69; Pulse 90; Resp 16; Pulse Ox 97% on R/A; cm10 12:59 Body Mass Index 39.51 (97.98 kg, 157.48 cm) iw 12:59 Pain Scale: Adult iw ED Course: 12:48 Patient arrived in ED. mr 13:00 Triage completed. iw 13:01 Bethany Baca PA-C is PHCP. sb4 13:01 Onel Rausch MD is Attending Physician. sb4 13:01 Arm band placed on. iw 13:31 CT Head Brain wo Cont In Process Unspecified. EDMS 13:52 Bharath Dos Santos, RN is Primary Nurse. bp 14:36 Patient has correct armband on for positive identification. Bed in low position. Call cm10 light in reach. Side rails up X2. 14:36 Provided Education on: ER process and procedures.. cm10 14:52 Initial lab(s) drawn, by me, sent to lab. EKG done, by ED staff, reviewed by Bethany Baca PA-C. Inserted saline lock: 22 gauge in left forearm, using aseptic technique. Blood collected. Flushed with 10 mL NS. 16:41 No provider procedures requiring assistance completed. IV discontinued, intact, cm10 bleeding controlled, No redness/swelling at site. Pressure dressing applied. Administered Medications: 15:36 Drug: Meclizine PO 25 mg PO once Route: PO; cm10 16:38 Follow up: Response: No adverse reaction cm10 16:00 Drug: Ondansetron IVP 4 mg IVP once; over 2 minutes Route: IVP; Site: left forearm; bp 16:38 Follow up: Response: No adverse reaction cm10 Medication: 16:42 VIS not applicable for this client. cm10 Outcome: 16:24 Discharge ordered by MD. sb4 16:41 Discharged to home ambulatory, Pt waiting on ride. cm10 16:41 Condition: good 16:41 Discharge instructions given to patient, Instructed on discharge instructions, follow up and referral plans. medication usage, Demonstrated understanding of instructions, follow-up care, medications, Prescriptions given X 2, 16:42 Patient left the ED. cm10 Signatures: Dispatcher [employer] EDMS Lacey Dowd, Reg Reg mr Marlen Gutierrez, RN BERNABE iw Bharath Dos Santos RN RN bp Brown, Sophia, PA-C PA-C sb4 Amina Holland RN RN cm10 Karen Gutierres kb4 Corrections: (The following items were deleted from the chart) 13:01 12:59 Resp 18bpm; Pulse Ox 100%; Temp 98.4F; Pain 7/10, Adult; iw iw 13:01 12:59 Resp 18bpm; Pulse Ox 100%; Temp 98.4F; 97.98 kg; Height 5 ft. 2 in.; BMI: 39.5; iw Pain 7/10, Adult; iw
[2024-08-05 18:37] VITALS: TEMP 98.4
[2024-08-05 18:41] VITALS: BP 123/69; O2SAT 97
--- NOTE | 2024-08-06 12:42 | EKG ---
Test Date: 2024-08-05 Test Time: 14:47:30 Disability Counselor: DARA MEASUREMENT RESULTS: Intervals: Rate: 83 PA: 148 QRSD: 98 QT: 416 QTc: 488 [place]: P: 65 PA: 148 QRS: 75 T: 74 INTERPRETIVE STATEMENTS: Normal sinus rhythm Normal ECG Compared to ECG 07/26/2024 00:58:12 T-wave abnormality no longer present Electronically Signed On 08-06-24 12:40:36 [employer] HELPER by Sonu Duran
== END 2024-08-05 16:42 | disposition home or self-care (01) ==
LOC: ER 12:44
DX: R42 Dizziness and giddiness (principal); R11.2 Nausea with vomiting, unspecified; E11.9 Type 2 diabetes mellitus without complications; F41.9 Anxiety disorder, unspecified; Z88.5 Allergy status to narcotic agent
CPT/HCPCS: 93005; 85025; 81001; 80048; 36415; 83735; 85610; 80076; 85730; 84484; 80307; 70450; 96374; 99284; J8597; J2405

== ENCOUNTER 2025-03-21 22:56 | Emergency (ER) | payer OTHER ==
--- OUTSIDE RECORDS SUMMARY | 2025-03-21 23:04 | XMS REPORT | Continuity of Care Document ---
Author Name Unknown Address [address] [facility] [place] [address] [facility] Address [address] [facility] [address] [place] [address] Care Team Providers Care Census Clerk Name Role Phone Pcp, Patient Does Not Have A Primary Care Physic chente Kenya Evans Attending Clinician Unavailable KAYLA LUTZ Attending Clinician UnavailLACEY Guzman Attending Clinician Unava illui Doctor Unassigned, [place] Attending Clinician U navBREE Torrez Attending Clinician Unavailable Doctor Unassigned, [place] Attending Clinician U michaela Espinoza RN, Veronika Serra Attending Clinician Unavail able ANNAMARIA BARKER Attending Clinician Unavailable Yony GOMEZ, Marylou Sanabria Attending Clinician [phone] Annamaria Barker DO Attending Clinician [phone] Billy WOODSON, Bree Attending Clinician [phone] Kayla Lutz MD Attending Clinician [phone] Bernice Amaya Attending Clinician [phone] PEDRO LUIS RUSHING Attending Clinician Unavailable PEDRO LUIS RUSHING Attending Clinician Unavailable Pob, [facility] Attending Clinician UnavailBERNICE Conrad Attending Clinician Unavailable Chelo Cornejo RN Attending Clinician Unavailab carmelo Clemons MD, Brodie Evangelista Attending Clinician [phone] FILIPE WIGGINS Attending Clinician Unavailable HEMACLAYTON MONTELONGO Attending Clinician Unavail able Bharath Padgett CRNA Attending Clinician [phone] Trang Hunt MD Attending Clinician [phone] Only, Adc Test Attending Clinician Unavailable RENÉE AGUILERA Attending Clinician Unavail able RENÉE AGUILERA Attending Clinician Unavail able ANDREW RESENDIZ Attending Clinician Unavail able Nurse, Adc Pob Immunization Attending Clinician Unavailable Andrew Resendiz DO Attending Clinician [phone] Jonas Barker MD Attending Clinician Calin Lazar DO Attending Clinician [phone] KAYLA LUTZ Admitting Clinician UnavailANNAMARIA Amado Admitting Clinician Unavailable Annamaria Barker DO Admitting Clinician [phone] Kayla Lutz MD Admitting Clinician [phone] BERNICE COLUNGA Admitting Clinician Unavailable Payers Payer Name Policy Type Policy Number Effective Date Expirati on Date Source [facility] [id number] 2021 00:00:00 [facility] [id number] 2015 00:00:00 [facility] [id number] 2020 00:00:00 [facility] DUAL COMP CHOICE PPO DSNP [id number] 2023 00:00:00 Ambetter from [facility] [id number] [facility] HIM AMBETTER FROM [facility] [id number] 2019 00:00:00 Ambetter from [facility] [id number] [facility] Ambetter from [facility] [id number] [facility] Ambetter from [facility] [id number] [facility] Problems Condition Name Condition Details Condition Category Status Onset Date Resolution Date Last Treatment Date Treating Clinician Comments Source Abnormal nuclear cardiac imaging test Abnormal nuclear cardiac imaging test Disease Active 08-30 00:00: 00 [facility] Chest pain, unspecifie d type Chest pain, unspecifie d type Disease Active 08-29 00:00: 00 [facility] Right lower quadrant abdominal pain Right lower quadrant abdominal pain Disease Active 2021-08 00:00: 00 [facility] Morbid obesity with body mass index of 40.0-49.9 Morbid obesity with body mass index of 40.0-49.9 Disease Active 14 00:00: 00 [facility] Arthritis of left hip Arthritis of left hip Disease Active 01-04 00:00: 00 Overview: Formattin g of this note might be different from the original. Added automatic ally from request for surgery [id number] [facility] Hip pain, left Hip pain, left Disease Active 12-18 00:00: 00 [facility] Left knee pain Left knee pain Disease Active 12-18 00:00: 00 [facility] Arthritis of left hip Arthritis of left hip Disease Active 12-18 00:00: 00 [facility] Arthritis of left knee Arthritis of left knee Disease Active 12-18 00:00: 00 [facility] Trochanter ic bursitis, left hip Trochanter ic bursitis, left hip Disease Active 17 00:00: 00 [facility] ESR raised ESR raised Disease Active 03-31 00:00: 00 [facility] Immunizati on counseling Immunizati on counseling Disease Active 03-31 00:00: 00 [facility] Other iron deficiency anemia Other iron deficiency anemia Disease Active 03-31 00:00: 00 [facility] Subcutaneo us nodules Subcutaneo us nodules Disease Active 03-31 00:00: 00 [facility] 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 [id number] Primary osteoarthr itis of left hip Problem Active [facility] [id number] Trigger finger, left ring finger Problem Active [facility] [id number] Pain, joint, hand, right Problem Active [facility] [id number] Pain, joint, hip, right Problem [facility] [id number] Arthritis of right hip Problem [facility] [id number] Primary osteoarthr itis of right hip Problem [facility] [id number] Trochanter ic bursitis of left hip Problem [facility] [id number] Status post total replacemen t of right hip Problem [facility] Tobacco abuse Tobacco abuse Disease Resolve d 2018-04-14 00:00:00 2018-04-14 11:37:14 [facility] Allergies, Adverse Reactions, Alerts Allergy Name Allergy Type Status Severity Reaction(s) Onset Date Inactive Date Treating Clinician Comments Source Codeine Propensi ty to adverse reaction s Active Nausea And Vomiting 09-07 00:00: 00 [facility] CODEINE DRUG INGREDI Active N/V 09-07 00:00: 00 [facility] codeine codeine Active Unknown [facility] Social History Social Habit Start Date Stop Date Quantity Comments Source History of Tobacco Use [facility] Sex Assigned At [facility] History SDOH Alcohol Std Drinks [facility] History SDOH Alcohol Binge [facility] Exposure to SARS-CoV-2 (event) 2022-12-17 00:00:00 2022-12-27 08:47:00 Not sure [facility] History of Social function 2022-09-23 00:00:00 2022-09-23 00:00:00 [facility] History SDOH Food Worry 2022-06-13 00:00:00 2022-06-13 00:00:00 1 [facility] History SDOH Food Scarcity 2022-06-13 00:00:00 2022-06-13 00:00:00 1 [facility] History SDOH Transport Med 2022-06-13 00:00:00 2022-06-13 00:00:00 2 [facility] History SDOH Transport Non-Med 2022-06-13 00:00:00 2022-06-13 00:00:00 2 [facility] Tobacco use and exposure 2022-06-11 00:00:00 2022-06-11 00:00:00 Smokeless tobacco non-user [facility] Education - What is the highest level of school you have completed or the highest degree you have received? 2022-06-10 00:00:00 2022-06-10 00:00:00 Some college, no degree [facility] Alcohol intake 2020-12-18 00:00:00 2020-12-18 00:00:00 Lifetime non-drinker (finding) [facility] History SDOH Alcohol Frequency 2020-12-18 00:00:00 2020-12-18 00:00:00 1 [facility] Alcoholic beverage intake 2017-03-13 00:00:00 2017-03-13 00:00:00 Current non-drinker of alcohol (finding) [facility] Smoking Status Start Date Stop Date Source Never Smoker [facility] Medications Ordered Medication Name Filled Medication Name Start Date Stop Date Current Medication? Ordering Clinician Indication Dosage Frequency Signature (SIG) Comments Components Source Lidocaine Lidocaine 24 00:00: [address] [facility] amitriptyli ne (ELAVIL) tablet 150 mg 08-30 15:00: 00 Yes 150mg 150 mg, Oral, DAILY, First dose on Fri08/30/23 at 0900, Until Discontinu ed, Routine [facility] enoxaparin (LOVENOX) injection 40 mg 08-30 15:00: 00 Yes 40mg 40 mg, Subcutaneo us, DAILY, First dose on Fri08/30/23 at 0900, Until Discontinu ed, Routine [facility] amitriptyli ne 150 mg tablet 08-30 14:20: 33 Yes amitriptyl ine 150 mg tablet Take 1 tablet every day by oral route for 30 days. [facility] celecoxib 200 mg capsule 08-30 14:20: 33 Yes 200mg Take 1 capsule by mouth in the morning and 1 capsule in the evening. [facility] semaglutide (OZEMPIC) 1 mg/dose (4 mg/3 mL) PnIj 08-30 14:20: 33 Yes 1.25mg inject 1.25 mg under the skin weekly. [facility] Sliding Scale Insulin - Lispro (HumaLOG) 08-30 03:00: 00 Yes Subcutaneo us, TID MEALS+HS, First dose on Fri08/29/23 at 2100, Until Discontinu ed, Routine [facility] pantoprazol e (PROTONIX) injection 40 mg 08-30 02:00: 00 Yes 40mg 40 mg, Slow IV Push, Q24H, First dose on Fri08/29/23 at 2000, Until Discontinu ed [facility] NaCl 0.9% (NS) IV infusion 1,000 mL 08-30 01:15: 00 Yes 1000mL at 75 mL/hr, IV Infusion, CONTINUOUS , Starting on Fri08/29/23 at 1915, Until Discontinu ed, Routine [facility] iopamidol (ISOVUE 370-500 mL) injection 75 mL 08-30 00:15: 00 08-30 00:15 :00 No [id number] 75mL 75 mL, Intravenou s, ONCE, 1 dose, On Fri08/29/23 at 1815, Routine [facility] proMETHazin e (PHENERGAN) 12.5 mg in NS 50 mL IV piggyback (CNR) 08-30 00:01: 07 Yes 12.5mg 12.5 mg, IV Piggyback, at 200 mL/hr Administer over 15 Minutes, Q4HPRN, Starting on Fri08/29/23 at 1801, Until Discontinu ed, Routine, N/V unresponsi ve to Ondansetro n [facility] ondansetron (ZOFRAN (PF)) injection 4 mg 08-30 00:00: 10 Yes 4mg 4 mg, Slow IV Push, Q6HPRN, Starting on Fri08/29/23 at 1800, Until Discontinu ed, Routine, Nausea and Vomiting (N/V) [facility] glucagon (GLUCAGEN DIAGNOSTIC KIT) injection 1 mg 08-29 23:59: 42 Yes 1mg 1 mg, Intramuscu lar, PRN, Starting on Fri08/29/23 at 1759, Until Discontinu ed, KUNAL, Blood Glucose < or = 70 mg/dL and patient is NPO, unable to swallow or has mental changes. [facility] dextrose 50 % in water (D50W) injection 25 mL 08-29 23:59: 42 Yes 25mL 25 mL, Slow IV Push, PRN, Starting on Fri08/29/23 at 1759, Until Discontinu ed, KUNAL, Blood Glucose < or = 70 mg/dL and patient is NPO, unable to swallow or has mental status changes. [facility] FENTanyl PF (SUBLIMAZE (PF)) injection 25 mcg 08-29 23:59: 16 08-30 23:58 :16 No 25ug 25 mcg, Slow IV Push, Q3HPRN, Starting on Fri08/29/23 at 1759, Until 08/30/23 at 1758, Routine, Pain (scale 7-10) [facility] acetaminoph en (TYLENOL) tablet 650 mg 08-29 23:59: 10 Yes 650mg 650 mg, Oral, Q6HPRN, Starting on Fri08/29/23 at 1759, Until Discontinu ed, Routine, Pain (scale 1-3) [facility] haloperidol lactate (HALDOL) injection 2.5 mg 08-29 22:30: 00 08-30 00:08 :00 No 2.5mg 2.5 mg, Intravenou s, ONCE, 1 dose, On Fri08/29/23 at 1630, STAT [facility] morpHINE (4 mg/mL) injection 4 mg 08-29 21:00: 00 08-29 20:55 :00 No 4mg 4 mg, Slow IV Push, ONCE, 1 dose, On Fri08/29/23 at 1500, STAT [facility] Fesoterodin e (TOVIAZ) 4 mg tablet 08-29 20:23: 58 08-29 00:00 :00 No Toviaz 4 mg tablet,ext ended release [facility] DULoxetine 60 mg capsule 08-29 20:23: 58 08-29 00:00 :00 No 60mg Take 1 capsule by mouth in the morning. [facility] proMETHazin e (PHENERGAN) 12.5 mg in NS 50 mL IV piggyback (CNR) 08-29 20:00: 00 08-29 20:48 :00 No 12.5mg 12.5 mg, IV Piggyback, at 200 mL/hr Administer over 15 Minutes, ONCE, 1 dose, On Fri08/29/23 at 1400, KUNAL [facility] iopamidol (ISOVUE 370-500 mL) injection 100 mL 08-29 20:00: 00 08-29 20:00 :00 No [id number] 100mL 100 mL, Intravenou s, ONCE, 1 dose, On Fri08/29/23 at 1400, Routine [facility] morpHINE (4 mg/mL) injection 4 mg 08-29 18:30: 00 08-29 18:45 :00 No 4mg 4 mg, Slow IV Push, ONCE, 1 dose, On Fri08/29/23 at 1230, STAT [facility] ketorolac (TORADOL) injection 30 mg 08-29 17:45: 00 08-29 16:48 :00 No 30mg 30 mg, Slow IV Push, ONCE, 1 dose, On Fri08/29/23 at 1145, Routine [facility] NaCl 0.9% (NS) bolus infusion 1,000 mL 08-29 17:30: 00 08-29 17:42 :00 No 1000mL at 999 mL/hr, 1,000 mL, IV Infusion, ONCE, 1 dose, On Fri08/29/23 at 1130, [facility] famot[facility] (PEPCID (PF)) [facility] 20 mg 08-29 16:45: 00 08-29 16:45 :00 No 20mg 20 mg, Slow IV Push, ONCE, 1 dose, On Fri08/29/23 at 1045, [facility] ondansetron (ZOFRAN (PF)) injection 4 mg 08-29 16:45: 00 08-29 16:44 :00 No 4mg 4 mg, Slow IV Push, ONCE, 1 dose, On Fri08/29/23 at 1045, [facility] Kenalog (Triamcinol one) Kenalog (Triamcinol one) 6-12 00:00: 00 No 2mL [facility] atorvastati n 10 mg tablet 12-27 09:06: 57 12-27 00:00 :00 No 10mg Take 1 tablet by mouth in the morning. [facility] amitriptyli ne 150 mg tablet 12-27 08:56: 31 Yes amitriptyl ine 150 mg tablet Take 1 tablet every day by oral route for 30 days. [facility] Fesoterodin e (TOVIAZ) 4 mg tablet 12-27 08:56: 31 Yes Toviaz 4 mg tablet,ext ended release [facility] DULoxetine 60 mg capsule 12-27 08:56: 31 Yes 60mg Take 1 capsule by mouth in the morning. [facility] celecoxib 200 mg capsule 12-27 08:56: 31 Yes 200mg Take 1 capsule by mouth in the morning and 1 capsule in the evening. [facility] semaglutide (OZEMPIC) 1 mg/dose (4 mg/3 mL) PnIj 12-27 08:56: 31 Yes 1.25mg inject 1.25 mg under the skin weekly. [facility] traMADoL 50 mg tablet 12-21 00:00: 00 08-29 00:00 :00 No TAKE 1 TABLET BY MOUTH EVERY 8 HOURS NEEDED FOR 10 DAYS [facility] FENTanyl PF (SUBLIMAZE (PF)) injection 25 mcg 09-23 14:14: 37 Yes 25ug 25 mcg, Slow IV Push, Q5MIN PRN, 4 doses, Starting on Fri09/23/22 at 0814, Until Discontinu ed, Routine, Pain (scale 4-6), PACU [facility] ondansetron (ZOFRAN (PF)) injection 4 mg 09-23 14:14: 37 09-23 14:16 :00 No 4mg 4 mg, Slow IV Push, PRN, 1 dose, Starting on Fri09/23/22 at 0814, Until Fri09/23/22 at 0816, Routine, Nausea and Vomiting (N/V), PACU [facility] triamcinolo ne acetonide (KENALOG) injection 09-23 13:55: 00 09-23 17:13 :49 No PRN, Starting on Fri09/23/22 at 0755, Until Fri09/23/22 at 1113, Routine, Intra-op [facility] bupivacaine (preserv free) 0.5% (SENSORCAIN E MPF) 0.5 % (5 mg/mL) injection 09-23 13:55: 00 09-23 17:13 :49 No PRN, Starting on Fri09/23/22 at 0755, Until Fri09/23/22 at 1113, Routine, Intra-op [facility] triamcinolo ne acetonide (KENALOG) injection 09-23 13:53: 00 09-23 17:13 :49 No PRN, Starting on Fri09/23/22 at 0753, Until Fri09/23/22 at 1113, Routine, Intra-op [facility] bupivacaine (preserv free) 0.5% (SENSORCAIN E MPF) 0.5 % (5 mg/mL) injection 09-23 13:53: 00 09-23 17:13 :49 No PRN, Starting on Fri09/23/22 at 0753, Until Fri09/23/22 at 1113, Routine, Intra-op [facility] lactated ringers IV infusion 1,000 mL 09-23 12:45: 00 09-23 13:02 :00 No 1000mL at 42 mL/hr, 1,000 mL, IV Infusion, ONCE, 1 dose, On Fri09/23/22 at 0645, Routine, DSU Pre-op [facility] amitriptyli ne 150 mg tablet 09-23 09:08: 45 Yes amitriptyl ine 150 mg tablet Take 1 tablet every day by oral route for 30 days. [facility] Fesoterodin e (TOVIAZ) 4 mg tablet 09-23 09:08: 45 Yes Toviaz 4 mg tablet,ext ended release [facility] DULoxetine 60 mg capsule 09-23 09:08: 45 Yes 60mg Take 60 mg by mouth daily. [facility] atorvastati n 10 mg tablet 09-23 09:08: 45 Yes 10mg Take 10 mg by mouth in the morning. [facility] celecoxib 200 mg capsule 09-23 09:08: 45 Yes 200mg Take 200 mg by mouth in the morning and 200 mg in the evening. [facility] semaglutide (OZEMPIC) 1 mg/dose (4 mg/3 mL) PnIj 09-23 09:08: 45 Yes 1.25mg inject 1.25 mg under the skin weekly. [facility] aspirin 325 mg tablet 09-23 00:00: 00 10-22 04:59 :00 No [id number] 325mg Take 1 tablet by mouth in the morning and 1 tablet in the evening. Take with meals. Do all this for 28 days. [facility] semaglutide (OZEMPIC) 1 mg/dose (4 mg/3 mL) PnIj 09-17 13:39: 54 Yes 1.25mg inject 1.25 mg under the skin weekly. [facility] atorvastati n 10 mg tablet 09-17 13:19: 59 Yes 10mg Take 10 mg by mouth in the morning. [facility] celecoxib 200 mg capsule 09-17 13:19: 59 Yes 200mg Take 200 mg by mouth in the morning and 200 mg in the evening. [facility] amitriptyli ne 150 mg tablet 09-17 13:09: 47 Yes amitriptyl ine 150 mg tablet Take 1 tablet every day by oral route for 30 days. [facility] Fesoterodin e (TOVIAZ) 4 mg tablet 09-17 13:09: 47 Yes Toviaz 4 mg tablet,ext ended release [facility] DULoxetine 60 mg capsule 09-17 13:09: 47 Yes 60mg Take 60 mg by mouth daily. [facility] cefTRIAXone (ROCEPHIN) 1,000 mg in NaCl [...] Urine
D uration of Therapy: 7 days [facility] lactobacill us acidophilus 2021-08 00:00: 00 07-14 05:59 :00 No [id number] .5mg Take 1 tablet by mouth in the morning for 30 days. [facility] polyethylen e glycol 3350 17 gram powder 2021-08 00:00: 00 07-14 05:59 :00 No [id number] 17g Take 1 Packet by mouth in the morning for 30 days. [facility] sennosides- docusate sodium (SENOKOT-S) 8.6-50 mg per tablet 1 tablet 2021-08 16:15: 00 Yes 1{tbl} 1 tablet, Oral, DAILY, First dose on Fri06/12/22 at 1015, Until Discontinu ed, Routine [facility] polyethylen e glycol 3350 powder 17 g 2021-08 16:15: 00 Yes 17g 17 g, Oral, DAILY, First dose on Fri06/12/22 at 1015, Until Discontinu ed, Routine [facility] amitriptyli ne 150 mg tablet 2021-08 16:08: 30 Yes amitriptyl ine 150 mg tablet Take 1 tablet every day by oral route for 30 days. [facility] Fesoterodin e (TOVIAZ) 4 mg tablet 2021-08 16:08: 30 Yes Toviaz 4 mg tablet,ext ended release [facility] DULoxetine 60 mg capsule 2021-08 16:08: 30 Yes 60mg Take 60 mg by mouth daily. [facility] proMETHazin e 25 mg tablet 2021-08 00:00: 00 09-17 00:00 :00 No [id number] 25mg Take 1 tablet by mouth every 4 (four) hours as needed for N/V unresponsi ve to Ondansetro n. [facility] docusate 100 mg capsule 2021-08 00:00: 00 07-13 05:59 :00 No [id number] 100mg Take 1 capsule by mouth in the morning and 1 capsule in the evening. Do all this for 30 days. [facility] HYDROcodone -acetaminop hen 5-325 mg tablet 2021-08 00:00: 00 06-20 05:59 :00 No [id number] 1{tbl} Take 1 tablet by mouth every 6 (six) hours as needed for Pain (scale 7-10) for up to 7 days. Indication s: acute pain [facility] ciprofloxac in HCl 500 mg tablet 2021-08 00:00: 00 06-20 05:59 :00 No [id number] 500mg Take 1 tablet by mouth every 12 (twelve) hours for 7 days. [facility] metroNIDAZO LE 250 mg tablet 2021-08 00:00: 00 06-20 05:59 :00 No [id number] 500mg Take 2 tablets by mouth every 12 (twelve) hours for 7 days. [facility] proMETHazin e (PHENERGAN) 25 mg in NaCl 0.9% (NS) 50 mL IV piggyback 2021-08 21:26: 59 Yes 25mg 25 mg, IV Piggyback, Q4HPRN, Starting on Fri06/11/22 at 1526, Until Discontinu ed, Routine, Nausea and Vomiting (N/V), N/V unresponsi ve to Ondansetro n [facility] acetaminoph en (TYLENOL) tablet 650 mg 2021-08 15:55: 26 Yes 650mg 650 mg, Oral, Q6HPRN, Starting on Fri06/11/22 at 0955, Until Discontinu ed, Routine, Pain (scale 1-3) [facility] enoxaparin (LOVENOX) injection 40 mg 2021-08 15:00: 00 Yes 40mg 40 mg, Subcutaneo us, DAILY, First dose on Fri06/11/22 at 0900, Until Discontinu ed, Routine [facility] DULoxetine (CYMBALTA) capsule 60 mg 2021-08 15:00: 00 Yes 60mg 60 mg, Oral, DAILY, First dose on Fri06/11/22 at 0900, Until Discontinu ed, Routine [facility] lactobacill us acidophilus tablet 0.5 mg 2021-08 15:00: 00 Yes .5mg 0.5 mg, Oral, DAILY, First dose on Fri06/11/22 at 0900, Until Discontinu ed, [facility] - Lispro (HumaLOG) + Fsbg Testing 2021-08 14:00: 00 Yes Subcutaneo us, TID MEALS, First dose on Fri06/11/22 at 0800, Until Discontinu ed, Routine [facility] mor[facility] (4 mg/mL) injection 4 mg 2021-08 12:52: 08 Yes 4mg 4 mg, Slow IV Push, Q4HPRN, Starting on Fri06/11/22 at 0652, Until Discontinu ed, Routine, Pain (scale 7-10) [facility] cefTRIAXone (ROCEPHIN) 1,000 mg in [...]
D uration of Therapy: 7 days [facility] docusate (COLACE) capsule 100 mg 2021-08 06:15: 00 Yes 100mg 100 mg, Oral, BID, First dose on Fri06/11/22 at 0015, Until Discontinu ed, Routine [facility] gabapentin (NEURONTIN) capsule 200 mg 2021-08 06:15: 00 Yes 200mg 200 mg, Oral, BID, First dose on Fri06/11/22 at 0015, Until Discontinu ed, Routine [facility] ondansetron (ZOFRAN (PF)) injection 4 mg 2021-08 06:06: 47 Yes 4mg 4 mg, Slow IV Push, Q6HPRN, Starting on Fri06/11/22 at 0006, Until Discontinu ed, Routine, Nausea and Vomiting (N/V) [facility] traMADoL (ULTRAM) tablet 50 mg 2021-08 06:06: 37 06-13 06:05 :37 No 50mg 50 mg, Oral, Q8HPRN, Starting on Fri06/11/22 at 0006, Until Sneha 06/13/22 at 0005, Routine, Pain (scale 4-6) [facility] FENTanyl PF (SUBLIMAZE (PF)) injection 50 mcg 2021-08 05:58: 16 06-11 12:52 :20 No 50ug 50 mcg, Slow IV Push, Q4HPRN, Starting on Fri06/10/22 at 2358, Until Fri06/11/22 at 0652, Routine, Pain (scale 7-10) [facility] NaCl 0.9% (NS) IV infusion 1,000 mL 2021-08 04:30: 00 Yes 1000mL at 100 mL/hr, IV Infusion, CONTINUOUS , Starting on Fri06/10/22 at 2230, Until Discontinu ed, Routine [facility] NaCl 0.9% (NS) bolus infusion 1,500 mL 2021-08 03:45: 00 06-11 03:33 :01 No 1500mL at 999 mL/hr, 1,500 mL, IV Infusion, ONCE, 1 dose, On Fri06/10/22 at 2145, KUNAL [facility] ondansetron (ZOFRAN (PF)) injection 4 mg 2021-08 03:17: 24 06-11 06:07 :04 No 4mg 4 mg, Slow IV Push, Q6HPRN, Starting on Fri06/10/22 at 2117, Until Fri06/11/22 at 0007, KUNAL, Nausea and Vomiting (N/V) [facility] metoclopram raven HCl (REGLAN) injection 10 mg 2021-08 03:17: 15 06-11 21:27 :54 No 10mg 10 mg, Slow IV Push, TIDPRN, Starting on Fri06/10/22 at 2117, Until Fri06/11/22 at 1527, Routine, Nausea and Vomiting (N/V) [facility] morpHINE (4 mg/mL) injection 4 mg 2021-08 03:16: 49 06-11 05:58 :48 No 4mg 4 mg, Slow IV Push, Q4HPRN, Starting on Fri06/10/22 at 2116, Until Fri06/10/22 at 2358, Routine, Pain (scale 7-10) [facility] oxybutynin 10 mg 24 hr tablet 2021-08 00:05: 07 06-11 00:00 :00 No oxybutynin chloride ER 10 mg tablet,ext ended release 24 hr [facility] semaglutide (OZEMPIC) 0.25 mg or 0.5 mg(2 mg/1.5 mL) PnIj 2021-08 00:05: 06-11 00:00 :00 No .25mg 0.25 mg. [facility] semaglutide , weight loss, (WEGOVY) 0.25 mg/0.5 mL PnIj SC injection 2021-08 00:05: 07 06-11 00:00 :00 No Wegovy 0.25 mg/0.5 mL subcutaneo us pen injector 0.25 mg SC qwk x4wk, then 0.5 mg SC qwk x4wk, then 1 mg SC qwk x4wk, then 1.7 mg SC qwk x4wk, then 2.4 mg SC qwk [facility] clindamycin 300 mg capsule 2021-08 00:05: 06-11 00:00 :00 No clindamyci n HCl 300 mg capsule Take 1 capsule 3 times a day by oral route for 10 days. [facility] NaCl 0.9% (NS) bolus infusion 500 mL 2021-08 00:00: 00 06-11 00:17 :00 No 500mL at 999 mL/hr, 500 mL, IV Infusion, ONCE, 1 dose, On Fri06/10/22 at 1800, STAT [facility] proMETHazin e (PHENERGAN) 25 mg in NaCl 0.9% (NS) 50 mL IV piggyback 2021-08 00:00: 00 06-11 00:06 :00 No 25mg 25 mg, IV Piggyback, ONCE, 1 dose, [facility] Fri06/10/22 at 1800[facility] (PF[facility] 4 mg 2021-08 23:15: 00 06-10 22:25 :00 No 4mg 4 mg, Slow IV Push, ONCE, 1 dose, On Fri06/10/22 at 1715, [facility] morpHINE (4 mg/mL) injection 4 mg 2021-08 22:15: 00 06-10 21:21 :00 No 4mg 4 mg, Slow IV Push, ONCE, 1 dose, On Fri06/10/22 at 1615, STAT [facility] cefTRIAXone (ROCEPHIN) 1,000 mg in NaCl 0.9% (NS) 50 mL MINI-BAG 2021-08 20:15: 00 06-10 20:51 :00 No 1000mg 1,000 mg, IV Piggyback, ONCE, 1 dose, On Fri06/10/22 at 1415, Administer over 30 Minutes, 50 mL
Reas on for Anti-Infec tive: Documented Infection< br>Documen billy Infection Site: Urine
D uration of Therapy: 7 days [facility] ketorolac (TORADOL) injection 30 mg 2021-08 20:00: 00 06-10 19:01 :00 No 30mg 30 mg, Slow IV Push, ONCE, 1 dose, On Fri06/10/22 at 1400, Routine [facility] morpHINE (4 mg/mL) injection 4 mg 2021-08 19:30: 00 06-10 19:29 :00 No 4mg 4 mg, Slow IV Push, ONCE, 1 dose, On Fri06/10/22 at 1330, STAT [facility] ondansetron (ZOFRAN (PF)) injection 4 mg 2021-08 19:30: 00 06-10 19:29 :00 No 4mg 4 mg, Slow IV Push, ONCE, 1 dose, On Fri06/10/22 at 1330, KUNAL [facility] FENTanyl PF (SUBLIMAZE (PF)) injection 50 mcg 2021-08 18:01: 00 06-10 18:02 :00 No 50ug 50 mcg, Slow IV Push, ONCE, 1 dose, On Fri06/10/22 at 1215, Routine [facility] cefpodoxime 100 mg tablet 2021-08 00:00: 00 06-12 00:00 :00 No [id number] 100mg Take 1 tablet by mouth in the morning and 1 tablet in the evening. Do all this for 7 days. [facility] amitriptyli ne 150 mg tablet 01-14 09:33: 45 Yes amitriptyl ine 150 mg tablet Take 1 tablet every day by oral route for 30 days. [facility] Fesoterodin e (TOVIAZ) 4 mg tablet 01-14 09:33: 45 Yes Toviaz 4 mg tablet,ext ended release [facility] oxybutynin 10 mg 24 hr tablet 01-14 09:33: 45 Yes oxybutynin chloride ER 10 mg tablet,ext ended release 24 hr [facility] semaglutide (OZEMPIC) 0.25 mg or 0.5 mg(2 mg/1.5 mL) PnIj 01-14 09:33: 45 Yes .25mg 0.25 mg. [facility] semaglutide , weight loss, (WEGOVY) 0.25 mg/0.5 mL PnIj SC injection 01-14 09:33: 45 Yes Wegovy 0.25 mg/0.5 mL subcutaneo us pen injector 0.25 mg SC qwk x4wk, then 0.5 mg SC qwk x4wk, then 1 mg SC qwk x4wk, then 1.7 mg SC qwk x4wk, then 2.4 mg SC qwk [facility] clindamycin 300 mg capsule 01-14 09:33: 45 Yes clindamyci n HCl 300 mg capsule Take 1 capsule 3 times a day by oral route for 10 days. [facility] DULoxetine 60 mg capsule 01-14 09:33: 45 Yes 60mg Take 60 mg by mouth daily. [facility] gabapentin 100 mg capsule 11-29 00:00: 00 Yes 100mg Take 1 capsule by mouth in the morning and 1 capsule in the evening. [facility] gabapentin 100 mg capsule 11-29 00:00: 00 Yes 800mg Take 8 capsules by mouth in the morning and 8 capsules at noon and 8 capsules in the evening. [facility] lidocaine-p rilocaine 2.5-2.5 % cream 10-01 00:00: 00 Yes APPLY TO AFFECTED AREA EVERY DAY NEEDED [facility] eszopiclone 1 mg tablet 10-01 00:00: 00 09-17 00:00 :00 No 1mg Take 1 mg by mouth daily. [facility] methylPREDN ISolone (MEDROL, LUNA,) 4 mg tablets 09-24 00:00: 00 Yes [id number] 84mg Take 21 tablets by mouth SEE-INSTRU CTIONS. follow package directions [facility] methylPREDN ISolone (MEDROL, LUNA,) 4 mg tablets 2020-08 0 00:00: 00 Yes [id number] 84mg Take 21 tablets by mouth SEE-INSTRU CTIONS. follow package directions [facility] methocarbam ol (Robaxin) 750 MG tablet 12-18 00:00: 00 12-29 04:59 :00 No [id number] 750mg [id number] 3D Take 1 tablet (750 mg total) by mouth 3 (three) times a day if needed for muscle spasms for up to 10 days. [facility] metFORMIN (Glucophage ) 1000 MG tablet 12-14 00:00: 00 Yes [facility] benzonatate 100 mg capsule 01-25 00:00: 00 Yes [id number] 100mg Take 1 capsule by mouth 3 (three) times daily as needed for Cough. [facility] chlorphenir amine 4 mg tablet 01-25 00:00: 00 Yes [id number] 4mg Take 1 tablet by mouth every 6 (six) hours as needed for Allergies or Runny nose. [facility] LIDOCAINE HCL 10MG/ML LIDOCAINE HCL 10MG/ML 01-19 00:00: [address] [facility] Depo-Medrol (Methylpred nisolone) 40mg Depo-Medrol (Methylpred nisolone) 40mg 01-19 00:00: [address] [facility] loratadine 10 mg tablet 03-03 00:00: 00 Yes 10mg Take 1 tablet by mouth in the morning. [facility] metFORMIN 1,000 mg tablet 02-07 00:00: 00 09-17 00:00 :00 No TAKE 1 TABLET BY MOUTH TWICE A DAY NEEDED WITH MORNING AND EVENING MEAL [facility] famotidine 40 mg tablet 2-20 00:00: 00 09-17 00:00 :00 No 40mg Take 1 tablet by mouth daily. [facility] Xigduo XR 10-500 MG Xigduo XR [...] No Fesoterodi ne Fumarate ER 8 MG Cetirizine HCl 10 MG Cetirizine HCl 10 MG No Cetirizine HCl 10 MG Cyclobenzap rine HCl 10 MG Cyclobenzap rine HCl 10 MG No Cyclobenza thania HCl 10 MG Ondansetron 4 MG Ondansetron 4 MG No Ondansetro n 4 MG Diclofenac Sodium ER 100 MG Diclofenac Sodium ER 100 MG No Diclofenac Sodium ER 100 MG Celecoxib 200 MG Celecoxib 200 MG No 1{capsu le_as_n eeded} QD Celecoxib 200 MG Mounjaro 2.5 MG/0.5ML Mounjaro 2.5 MG/0.5ML No Mounjaro 2.5 MG/0.5ML Immunizations Ordered Immunization Name Filled Immunization Name Date Status Comments Source Influenza Virus Vaccine Quad IM 3+ YRS 2021-06-24 00:00:00 Completed [facility] Influenza Virus Vaccine Quad IM 3+ YRS 2021-06-24 00:00:00 Completed [facility] Influenza Virus Vaccine Quad IM 3+ YRS 2021-06-24 00:00:00 Completed [facility] Influenza Virus Vaccine Quad IM 3+ 2021-06-24 00:00:00 Completed [facility] Influenza Virus Vaccine Quad IM 3+ YRS 2021-06-24 00:00:00 Completed [facility] Influenza Virus Vaccine Quad IM 3+ YRS 2021-06-24 00:00:00 Completed [facility] Influenza Virus Vaccine Quad IM 3+ 2021-06-24 00:00:00 Completed [facility] Influenza Virus Vaccine Quad IM 3+ YRS 2021-06-24 00:00:00 Completed [facility] Influenza Virus Vaccine Quad IM 3+ YRS 2021-06-24 00:00:00 Completed [facility] Influenza Virus Vaccine Quad IM 3+ YRS 2021-06-24 00:00:00 Completed [facility] Influenza Virus Vaccine Quad IM 3+ YRS 2021-06-24 00:00:00 Completed [facility] Influenza Virus Vaccine Quad IM 3+ YRS 2021-06-24 00:00:00 Completed [facility] Influenza Virus Vaccine Quad IM 3+ YRS 2021-06-24 00:00:00 Completed [facility] Influenza Virus Vaccine Quad IM 3+ YRS 2021-06-24 00:00:00 Completed [facility] Influenza Virus Vaccine Quad IM 3+ YRS 2021-06-24 00:00:00 Completed [facility] Influenza Virus Vaccine Quad IM 3+ YRS 2021-06-24 00:00:00 Completed [facility] Influenza Virus Vaccine Quad IM 3+ YRS 2021-06-24 00:00:00 Completed [facility] Influenza Virus Vaccine Quad IM 3+ YRS 2021-06-24 00:00:00 Completed [facility] Influenza Virus Vaccine Quad IM 3+ YRS 2021-06-24 00:00:00 Completed [facility] Influenza Virus Vaccine Quad IM 3+ YRS 2021-06-24 00:00:00 Completed [facility] SARS-COV-2 COVID-19 PFIZER VACCINE 2021-04-23 00:00:00 Completed [facility] SARS-COV-2 COVID-19 ALY/J&J VACCINE 2021-04-23 00:00:00 Completed [facility] SARS-COV-2 COVID-19 PFIZER VACCINE 2021-04-23 00:00:00 Completed [facility] SARS-COV-2 COVID-19 ALY/J&J VACCINE 2021-04-23 00:00:00 Completed [facility] SARS-COV-2 COVID-19 PFIZER VACCINE 2021-04-23 00:00:00 Completed [facility] SARS-COV-2 COVID-19 ALY/J&J VACCINE 2021-04-23 00:00:00 Completed [facility] SARS-COV-2 COVID-19 PFIZER VACCINE 2021-04-23 00:00:00 Completed [facility] SARS-COV-2 COVID-19 ALY/J&J VACCINE 2021-04-23 00:00:00 Completed [facility] SARS-COV-2 COVID-19 PFIZER VACCINE 2021-04-23 00:00:00 Completed [facility] SARS-COV-2 COVID-19 ALY/J&J VACCINE 2021-04-23 00:00:00 Completed [facility] SARS-COV-2 COVID-19 PFIZER VACCINE 2021-04-23 00:00:00 Completed [facility] SARS-COV-2 COVID-19 ALY/J&J VACCINE 2021-04-23 00:00:00 Completed [facility] SARS-COV-2 COVID-19 PFIZER VACCINE 2021-04-23 00:00:00 Completed [facility] SARS-COV-2 COVID-19 ALY/J&J VACCINE 2021-04-23 00:00:00 Completed [facility] SARS-COV-2 COVID-19 PFIZER VACCINE 2021-04-23 00:00:00 Completed [facility] SARS-COV-2 COVID-19 ALY/J&J VACCINE 2021-04-23 00:00:00 Completed [facility] SARS-COV-2 COVID-19 PFIZER VACCINE 2021-04-23 00:00:00 Completed [facility] SARS-COV-2 COVID-19 ALY/J&J VACCINE 2021-04-23 00:00:00 Completed [facility] SARS-COV-2 COVID-19 PFIZER VACCINE 2021-04-23 00:00:00 Completed [facility] SARS-COV-2 COVID-19 ALY/J&J VACCINE 2021-04-23 00:00:00 Completed [facility] SARS-COV-2 COVID-19 PFIZER VACCINE 2021-04-23 00:00:00 Completed [facility] SARS-COV-2 COVID-19 ALY/J&J VACCINE 2021-04-23 00:00:00 Completed [facility] SARS-COV-2 COVID-19 PFIZER VACCINE 2021-04-23 00:00:00 Completed [facility] SARS-COV-2 COVID-19 ALY/J&J VACCINE 2021-04-23 00:00:00 Completed [facility] SARS-COV-2 COVID-19 PFIZER VACCINE 2021-04-23 00:00:00 Completed [facility] SARS-COV-2 COVID-19 ALY/J&J VACCINE 2021-04-23 00:00:00 Completed [facility] SARS-COV-2 COVID-19 PFIZER VACCINE 2021-04-23 00:00:00 Completed [facility] SARS-COV-2 COVID-19 ALY/J&J VACCINE 2021-04-23 00:00:00 Completed [facility] SARS-COV-2 COVID-19 PFIZER VACCINE 2021-04-23 00:00:00 Completed [facility] SARS-COV-2 COVID-19 ALY/J&J VACCINE 2021-04-23 00:00:00 Completed [facility] SARS-COV-2 COVID-19 PFIZER VACCINE 2021-04-23 00:00:00 Completed [facility] SARS-COV-2 COVID-19 ALY/J&J VACCINE 2021-04-23 00:00:00 Completed [facility] SARS-COV-2 COVID-19 PFIZER VACCINE 2021-04-23 00:00:00 Completed [facility] SARS-COV-2 COVID-19 ALY/J&J VACCINE 2021-04-23 00:00:00 Completed [facility] SARS-COV-2 COVID-19 PFIZER VACCINE 2021-04-23 00:00:00 Completed [facility] SARS-COV-2 COVID-19 ALY/J&J VACCINE 2021-04-23 00:00:00 Completed [facility] SARS-COV-2 COVID-19 PFIZER VACCINE 2021-04-23 00:00:00 Completed [facility] SARS-COV-2 COVID-19 ALY/J&J VACCINE 2021-04-23 00:00:00 Completed [facility] SARS-COV-2 COVID-19 PFIZER VACCINE 2021-04-23 00:00:00 Completed [facility] SARS-COV-2 COVID-19 ALY/J&J VACCINE 2021-04-23 00:00:00 Completed [facility] SARS-COV-2 COVID-19 PFIZER VACCINE 2021-04-23 00:00:00 Completed [facility] SARS-COV-2 COVID-19 ALY/J&J VACCINE 2021-04-23 00:00:00 Completed [facility] SARS-COV-2 COVID-19 PFIZER VACCINE 2021-04-02 00:00:00 Completed [facility] SARS-COV-2 COVID-19 ALY/J&J VACCINE 2021-04-02 00:00:00 Completed [facility] SARS-COV-2 COVID-19 PFIZER VACCINE 2021-04-02 00:00:00 Completed [facility] SARS-COV-2 COVID-19 ALY/J&J VACCINE 2021-04-02 00:00:00 Completed [facility] SARS-COV-2 COVID-19 PFIZER VACCINE 2021-04-02 00:00:00 Completed [facility] SARS-COV-2 COVID-19 ALY/J&J VACCINE 2021-04-02 00:00:00 Completed [facility] SARS-COV-2 COVID-19 PFIZER VACCINE 2021-04-02 00:00:00 Completed [facility] SARS-COV-2 COVID-19 ALY/J&J VACCINE 2021-04-02 00:00:00 Completed [facility] SARS-COV-2 COVID-19 PFIZER VACCINE 2021-04-02 00:00:00 Completed [facility] SARS-COV-2 COVID-19 ALY/J&J VACCINE 2021-04-02 00:00:00 Completed [facility] SARS-COV-2 COVID-19 PFIZER VACCINE 2021-04-02 00:00:00 Completed [facility] SARS-COV-2 COVID-19 ALY/J&J VACCINE 2021-04-02 00:00:00 Completed [facility] SARS-COV-2 COVID-19 PFIZER VACCINE 2021-04-02 00:00:00 Completed [facility] SARS-COV-2 COVID-19 ALY/J&J VACCINE 2021-04-02 00:00:00 Completed [facility] SARS-COV-2 COVID-19 PFIZER VACCINE 2021-04-02 00:00:00 Completed [facility] SARS-COV-2 COVID-19 ALY/J&J VACCINE 2021-04-02 00:00:00 Completed [facility] SARS-COV-2 COVID-19 PFIZER VACCINE 2021-04-02 00:00:00 Completed [facility] SARS-COV-2 COVID-19 ALY/J&J VACCINE 2021-04-02 00:00:00 Completed [facility] SARS-COV-2 COVID-19 PFIZER VACCINE 2021-04-02 00:00:00 Completed [facility] SARS-COV-2 COVID-19 ALY/J&J VACCINE 2021-04-02 00:00:00 Completed [facility] SARS-COV-2 COVID-19 PFIZER VACCINE 2021-04-02 00:00:00 Completed [facility] SARS-COV-2 COVID-19 ALY/J&J VACCINE 2021-04-02 00:00:00 Completed [facility] SARS-COV-2 COVID-19 PFIZER VACCINE 2021-04-02 00:00:00 Completed [facility] SARS-COV-2 COVID-19 ALY/J&J VACCINE 2021-04-02 00:00:00 Completed [facility] SARS-COV-2 COVID-19 PFIZER VACCINE 2021-04-02 00:00:00 Completed [facility] SARS-COV-2 COVID-19 ALY/J&J VACCINE 2021-04-02 00:00:00 Completed [facility] SARS-COV-2 COVID-19 PFIZER VACCINE 2021-04-02 00:00:00 Completed [facility] SARS-COV-2 COVID-19 ALY/J&J VACCINE 2021-04-02 00:00:00 Completed [facility] SARS-COV-2 COVID-19 PFIZER VACCINE 2021-04-02 00:00:00 Completed [facility] SARS-COV-2 COVID-19 ALY/J&J VACCINE 2021-04-02 00:00:00 Completed [facility] SARS-COV-2 COVID-19 PFIZER VACCINE 2021-04-02 00:00:00 Completed [facility] SARS-COV-2 COVID-19 ALY/J&J VACCINE 2021-04-02 00:00:00 Completed [facility] SARS-COV-2 COVID-19 PFIZER VACCINE 2021-04-02 00:00:00 Completed [facility] SARS-COV-2 COVID-19 ALY/J&J VACCINE 2021-04-02 00:00:00 Completed [facility] SARS-COV-2 COVID-19 PFIZER VACCINE 2021-04-02 00:00:00 Completed [facility] SARS-COV-2 COVID-19 ALY/J&J VACCINE 2021-04-02 00:00:00 Completed [facility] SARS-COV-2 COVID-19 PFIZER VACCINE 2021-04-02 00:00:00 Completed [facility] SARS-COV-2 COVID-19 ALY/J&J VACCINE 2021-04-02 00:00:00 Completed [facility] SARS-COV-2 COVID-19 PFIZER VACCINE 2021-04-02 00:00:00 Completed [facility] SARS-COV-2 COVID-19 ALY/J&J VACCINE 2021-04-02 00:00:00 Completed [facility] SARS-COV-2 COVID-19 PFIZER VACCINE 2021-04-02 00:00:00 Completed [facility] SARS-COV-2 COVID-19 ALY/J&J VACCINE 2021-04-02 00:00:00 Completed [facility] Influenza Virus Vaccine Quad IM 2020-05-12 00:00:00 Completed [facility] Influenza Virus Vaccine Quad IM 2020-05-12 00:00:00 Completed [facility] Influenza Virus Vaccine Quad IM 2020-05-12 00:00:00 Completed [facility] Influenza Virus Vaccine Quad IM 2020-05-12 00:00:00 Completed [facility] Influenza Virus Vaccine Quad IM 2020-05-12 00:00:00 Completed [facility] Influenza Virus Vaccine Quad IM 2020-05-12 00:00:00 Completed [facility] Influenza Virus Vaccine Quad IM 2020-05-12 00:00:00 Completed [facility] Influenza Virus Vaccine Quad IM 2020-05-12 00:00:00 Completed [facility] Influenza Virus Vaccine Quad IM 2020-05-12 00:00:00 Completed [facility] Influenza Virus Vaccine Quad IM + 2020-05-12 00:00:00 Completed [facility] Influenza Virus Vaccine Quad IM 2020-05-12 00:00:00 Completed [facility] Influenza Virus Vaccine Quad IM 2020-05-12 00:00:00 Completed [facility] Influenza Virus Vaccine Quad IM 2020-05-12 00:00:00 Completed [facility] Influenza Virus Vaccine Quad IM 2020-05-12 00:00:00 Completed [facility] Influenza Virus Vaccine Quad IM 32020-05-12 00:00:00 Completed [facility] Influenza Virus Vaccine Quad IM 2020-05-12 00:00:00 Completed [facility] Influenza Virus Vaccine Quad IM 2020-05-12 00:00:00 Completed [facility] Influenza Virus Vaccine Quad IM 2020-05-12 00:00:00 Completed [facility] Influenza Virus Vaccine Quad IM 2020-05-12 00:00:00 Completed [facility] Influenza Virus Vaccine Quad IM 2020-05-12 00:00:00 Completed [facility] Influenza Virus Vaccine Quad IM 2020-05-12 00:00:00 Completed [facility] LIDOCAINE HCL 10MG/ML LIDOCAINE HCL 10MG/ML 2020-01-20 08:45:[address] [facility] Depo-Medrol (Methylprednisolone ) 40mg Depo-Medrol (Methylprednisolon e) 40mg 2020-01-20 08:44:[address] [facility] Depo-Medrol (Methylprednisolone ) 40mg Depo-Medrol (Methylprednisolon e) 40mg 2020-01-20 08:43:[address] [facility] Influenza Virus Vaccine Quad IM 2019-09-13 00:00:00 Completed [facility] Influenza Virus Vaccine Quad IM 2019-09-13 00:00:00 Completed [facility] Influenza Virus Vaccine Quad IM 2019-09-13 00:00:00 Completed [facility] Influenza Virus Vaccine Quad IM 2019-09-13 00:00:00 Completed [facility] Influenza Virus Vaccine Quad IM 32019-09-13 00:00:00 Completed [facility] Influenza Virus Vaccine Quad IM 32019-09-13 00:00:00 Completed [facility] Influenza Virus Vaccine Quad IM 32019-09-13 00:00:00 Completed [facility] Influenza Virus Vaccine Quad IM 32019-09-13 00:00:00 Completed [facility] Influenza Virus Vaccine Quad IM 32019-09-13 00:00:00 Completed [facility] Influenza Virus Vaccine Quad IM 3+ YRS 2019-09-13 00:00:00 Completed [facility] Influenza Virus Vaccine Quad IM 3+ YRS 2019-09-13 00:00:00 Completed [facility] Influenza Virus Vaccine Quad IM 3+ YRS 2019-09-13 00:00:00 Completed [facility] Influenza Virus Vaccine Quad IM 3+ YRS 2019-09-13 00:00:00 Completed [facility] Influenza Virus Vaccine Quad IM 3+ YRS 2019-09-13 00:00:00 Completed [facility] Influenza Virus Vaccine Quad IM 3+ YRS 2019-09-13 00:00:00 Completed [facility] Influenza Virus Vaccine Quad IM 3+ YRS 2019-09-13 00:00:00 Completed [facility] Influenza Virus Vaccine Quad IM 3+ YRS 2019-09-13 00:00:00 Completed [facility] Influenza Virus Vaccine Quad IM 3+ YRS 2019-09-13 00:00:00 Completed [facility] Influenza Virus Vaccine Quad IM 3+ YRS 2019-09-13 00:00:00 Completed [facility] Influenza Virus Vaccine Quad IM 3+ YRS 2019-09-13 00:00:00 Completed [facility] Influenza Virus Vaccine Quad IM 3+ YRS 2019-09-13 00:00:00 Completed [facility] SARS-COV-2 COVID-19 PFIZER VACCINE Unknown Completed [facility] SARS-COV-2 COVID-19 ALY/J&J VACCINE Unknown Completed [facility] Influenza Virus Vaccine Quad IM 3+ YRS Unknown Completed [facility] SARS-COV-2 COVID-19 PFIZER VACCINE Unknown Completed [facility] SARS-COV-2 COVID-19 ALY/J&J VACCINE Unknown [facility] Influenza Virus Vaccine Quad IM 3+ YRS Unknown Completed [facility] SARS-COV-2 COVID-19 PFIZER VACCINE Unknown Completed [facility] SARS-COV-2 COVID-19 ALY/J&J VACCINE Unknown [facility] Influenza Virus Vaccine Quad IM 3+ YRS Unknown Completed [facility] SARS-COV-2 COVID-19 PFIZER VACCINE Unknown Completed [facility] SARS-COV-2 COVID-19 ALY/J&J VACCINE Unknown [facility] Influenza Virus Vaccine Quad IM 3+ YRS Unknown Completed [facility] Vital Signs Vital Name Observation Time Observation Value Comments S racquel height 2025-01-12 08:30:00 61.5 [in_i] Comm on [facility] weight 2025-01-12 08:30:00 226.1 [lb_av] Co on [facility] bmi 2025-01-12 08:30:00 42.02 kg/m2 Comm on [facility] blood pressure systolic 2025-01-12 08:30:00 115 mm[Hg] Common [facility] blood pressure diastolic 2025-01-12 08:30:00 55 mm[Hg] Common [facility] height 2024-10-25 10:30:00 61.5 [in_i] Comm on [facility] weight 2024-10-25 10:30:00 228.6 [lb_av] Co [facility] temperature 2024-10-25 10:30:00 98.3 [degF] Com [facility] bmi 2024-10-25 10:30:00 42.49 kg/m2 Comm on [facility] blood pressure systolic 2024-10-25 10:30:00 139 mm[Hg] Common [facility] blood pressure diastolic 2024-10-25 10:30:00 82 mm[Hg] Common [facility] height 2023-12-17 09:00:00 61.5 [in_i] Comm on [facility] weight 2023-12-17 09:00:00 213 [lb_av] Comm on [facility] temperature 2023-12-17 09:00:00 97.6 [degF] Com [facility] bmi 2023-12-17 09:00:00 39.59 kg/m2 Comm on [facility] blood pressure systolic 2023-12-17 09:00:00 126 mm[Hg] Common [facility] blood pressure diastolic 2023-12-17 09:00:00 78 mm[Hg] [facility] height 2023-11-28 08:00:00 61.5 [in_i] Comm on [facility] weight 2023-11-28 08:00:00 212 [lb_av] Comm on [facility] temperature 2023-11-28 08:00:00 97.4 [degF] Com mon [facility] bmi 2023-11-28 08:00:00 39.4 kg/m2 Commo n [facility] blood pressure systolic 2023-11-28 08:00:00 124 mm[Hg] [facility] blood pressure diastolic 2023-11-28 08:00:00 81 mm[Hg] Common [facility] height 2023-09-18 14:30:00 61.5 [in_i] Comm on [facility] weight 2023-09-18 14:30:00 217.6 [lb_av] Co mmon [facility] temperature 2023-09-18 14:30:00 97.9 [degF] Com mon [facility] bmi 2023-09-18 14:30:00 40.44 kg/m2 Comm on [facility] blood pressure systolic 2023-09-18 14:30:00 128 mm[Hg] [facility] blood pressure diastolic 2023-09-18 14:30:00 83 mm[Hg] [facility] Systolic blood pressure 2023-08-30 17:41:00 129 mm[Hg] [facility] Diastolic blood pressure 2023-08-30 17:41:00 73 mm[Hg] [facility] Heart rate 2023-08-30 17:41:00 93 /min [facility] Body temperature 2023-08-30 17:41:00 36.67 Vika [facility] Respiratory rate 2023-08-30 17:41:00 18 /min [facility] Oxygen saturation in Arterial blood by Pulse oximetry 2023-08-30 17:41:00 97 /min [facility] Body height 2023-08-30 01:53:00 157.5 cm [facility] Body weight 2023-08-30 01:53:00 103.42 kg [facility] BMI 2023-08-30 01:53:00 41.70 kg/m2 [facility] height 2023-05-23 10:30:00 61.5 [in_i] Comm on [facility] weight 2023-05-23 10:30:00 225 [lb_av] Comm on [facility] temperature 2023-05-23 10:30:00 98.1 [degF] Com [facility] bmi 2023-05-23 10:30:00 41.82 kg/m2 Comm on [facility] blood pressure systolic 2023-05-23 10:30:00 131 mm[Hg] Common [facility] blood pressure diastolic 2023-05-23 10:30:00 82 mm[Hg] Common [facility] height 2023-05-07 09:30:00 61.5 [in_i] Comm on [facility] weight 2023-05-07 09:30:00 227 [lb_av] Comm on [facility] temperature 2023-05-07 09:30:00 97.6 [degF] Com [facility] bmi 2023-05-07 09:30:00 42.19 kg/m2 Comm on [facility] blood pressure systolic 2023-05-07 09:30:00 130 mm[Hg] Common [facility] blood pressure diastolic 2023-05-07 09:30:00 78 mm[Hg] Common [facility] height 2023-03-17 13:45:00 61.5 [in_i] Comm on [facility] weight 2023-03-17 13:45:00 220 [lb_av] Comm on [facility] temperature 2023-03-17 13:45:00 98.2 [degF] Com mon [facility] bmi 2023-03-17 13:45:00 40.89 kg/m2 Comm on [facility] blood pressure systolic 2023-03-17 13:45:00 132 mm[Hg] Common [facility] blood pressure diastolic 2023-03-17 13:45:00 84 mm[Hg] [facility] height 2023-01-13 08:45:00 61.5 [in_i] Comm on [facility] weight 2023-01-13 08:45:00 221 [lb_av] Comm on [facility] temperature 2023-01-13 08:45:00 97.9 [degF] Com mon [facility] bmi 2023-01-13 08:45:00 41.08 kg/m2 Comm on [facility] blood pressure systolic 2023-01-13 08:45:00 128 mm[Hg] [facility] blood pressure diastolic 2023-01-13 08:45:00 82 mm[Hg] Common [facility] height 2023-01-07 09:30:00 61.5 [in_i] Comm on [facility] weight 2023-01-07 09:30:00 221 [lb_av] Comm on [facility] temperature 2023-01-07 09:30:00 97.7 [degF] Com [facility] bmi 2023-01-07 09:30:00 41.08 kg/m2 Comm on [facility] blood pressure systolic 2023-01-07 09:30:00 134 mm[Hg] [facility] blood pressure diastolic 2023-01-07 09:30:00 80 mm[Hg] Common [facility] Systolic blood pressure 2022-12-27 14:00:00 120 mm[Hg] [facility] Diastolic blood pressure 2022-12-27 14:00:00 87 mm[Hg] [facility] Heart rate 2022-12-27 14:00:00 102 /min [facility] Body height 2022-12-27 14:00:00 152.4 cm [facility] Body weight 2022-12-27 14:00:00 101.696 kg [facility] BMI 2022-12-27 14:00:00 43.79 kg/m2 [facility] Oxygen saturation in Arterial blood by Pulse oximetry 2022-12-27 14:00:00 98 /min [facility] Systolic blood pressure 2022-09-23 14:42:00 141 mm[Hg] [facility] Diastolic blood pressure 2022-09-23 14:42:00 74 mm[Hg] [facility] Heart rate 2022-09-23 14:42:00 76 /min [facility] Respiratory rate 2022-09-23 14:42:00 8 /min [facility] Oxygen saturation in Arterial blood by Pulse oximetry 2022-09-23 14:42:00 100 /min [facility] Body temperature 2022-09-23 14:07:00 36.5 Vika [facility] Body height 2022-09-17 19:30:00 154.9 cm [facility] Body weight 2022-09-17 19:30:00 113.399 kg [facility] BMI 2022-09-17 19:30:00 47.24 kg/m2 [facility] Systolic blood pressure 2022-09-23 12:46:00 144 mm[Hg] [facility] Diastolic blood pressure 2022-09-23 12:46:00 68 mm[Hg] [facility] Heart rate 2022-09-23 12:46:00 90 /min [facility] Body temperature 2022-09-23 12:46:00 36.56 Vika [facility] Respiratory rate 2022-09-23 12:46:00 17 /min [facility] Oxygen saturation in Arterial blood by Pulse oximetry 2022-09-23 12:46:00 95 /min [facility] Body height 2022-09-17 19:30:00 154.9 cm [facility] Body weight 2022-09-17 19:30:00 113.399 kg [facility] BMI 2022-09-17 19:30:00 47.24 kg/m2 [facility] Systolic blood pressure 2022-09-19 16:02:00 125 mm[Hg] [facility] Diastolic blood pressure 2022-09-19 16:02:00 81 mm[Hg] [facility] Heart rate 2022-09-19 16:02:00 79 /min [facility] Body temperature 2022-09-19 16:02:00 36.94 Vika [facility] Respiratory rate 2022-09-19 16:02:00 18 /min [facility] Body height 2022-09-19 16:02:00 154.9 cm [facility] Body weight 2022-09-19 16:02:00 104.327 kg [facility] BMI 2022-09-19 16:02:00 43.46 kg/m2 [facility] Oxygen saturation in Arterial blood by Pulse oximetry 2022-09-19 16:02:00 98 /min [facility] Body weight 2022-09-10 21:39:00 113.399 kg [facility] BMI 2022-09-10 21:39:00 47.24 kg/m2 [facility] Systolic blood pressure 2022-06-12 18:06:00 155 mm[Hg] [facility] Diastolic blood pressure 2022-06-12 18:06:00 84 mm[Hg] [facility] Heart rate 2022-06-12 18:06:00 90 /min [facility] Body temperature 2022-06-12 18:06:00 36 Vika [facility] Respiratory rate 2022-06-12 18:06:00 18 /min [facility] Oxygen saturation in Arterial blood by Pulse oximetry 2022-06-12 18:06:00 94 /min [facility] Body weight 2022-06-11 09:20:00 113.49 kg [facility] BMI 2022-06-11 09:20:00 47.27 kg/m2 [facility] Body height 2022-06-11 01:52:00 154.9 cm [facility] Systolic blood pressure 2022-04-19 13:32:00 127 mm[Hg] [facility] Diastolic blood pressure 2022-04-19 13:32:00 67 mm[Hg] [facility] Heart rate 2022-04-19 13:32:00 88 /min [facility] Body height 2022-04-19 13:32:00 154.9 cm [facility] Body weight 2022-04-19 13:32:00 117.028 kg [facility] BMI 2022-04-19 13:32:00 48.75 kg/m2 [facility] Body height 2020-12-18 16:17:00 [...] POCT GLUCOSE (AUTOMATED) 2023-08-30 18:30:00 Jarred Barker [facility] POCT GLUCOSE (AUTOMATED) 2023-08-30 13:51:00 Jarred Barker [facility] TROPONIN I 2023-08-30 09:22:00 Malgorzata Santos [facility] GLYCOSYLATED HEMOGLOBIN (A1C) 2023-08-30 04:51:00 Annamaria Barker [facility] TROPONIN I 2023-08-30 04:50:00 Malgorzata Santos [facility] POCT GLUCOSE (AUTOMATED) 2023-08-30 02:21:00 Jarred Barker [facility] URINE DRUG (IMMUNOASSAY) - COMPREHENSIVE DRUG SCREEN W/O REFLEX 2023-08-30 00:00:00 Marylou Driver [facility] CT ABDOMEN PELVIS W CONTRAST 2023-08-29 23:18:33 Marylou Driver [facility] CT CHEST PULMONARY ANGIOGRAM 2023-08-29 19:11:03 Marylou Driver [facility] URINALYSIS 2023-08-29 17:44:00 Marylou Driver [facility] XR CHEST 1 VW 2023-08-29 17:05:57 Marylou Driver [facility] LIPASE 2023-08-29 16:43:00 Marylou Driver [facility] MAGNESIUM 2023-08-29 16:43:00 Marylou Driver [facility] TROPONIN I 2023-08-29 16:43:00 Marylou Driver [facility] COMP. METABOLIC PANEL (13280) 2023-08-29 16:43:00 Marylou Driver [facility] CBC WITH DIFF 2023-08-29 16:43:00 Marylou Driver [facility] D-DIMER 2023-08-29 16:43:00 Marylou Driver [facility] HB ECG ROUTINE & RHYTHM STRIP 2023-08-29 16:32:22 Marylou Driver [facility] EXTERNAL PROVIDER - ADC CARDIOLOGY 2022-12-31 05:01:00 Doctor Unassigned, [place] [facility] EXTERNAL PROVIDER - ADC REFERRAL 2022-12-20 05:01:00 Doctor Unassigned, [place] [facility] FL TIME OR (NON-REPORTABLE) 2022-09-23 14:53:25 Kayla Lutz [facility] FL TIME OR (NON-REPORTABLE) 2022-09-23 14:53:25 Kayla Lutz [facility] MAJOR JOINT INJECTION 2022-09-23 13:32:00 Inderjit Lutz [facility] POCT GLUCOSE (AUTOMATED) 2022-09-23 12:50:00 Kayla Lutz [facility] POCT GLUCOSE (AUTOMATED) 2022-09-23 12:50:00 Kayla Lutz [facility] HB ABO GROUPING 2022-09-23 12:45:00 Kayla Lutz [facility] HB ABO GROUPING 2022-09-23 12:45:00 Kayla Lutz [facility] DAY SURGERY - ADC 2022-09-23 06:01:00 Doctor Rena ssigned, [place] [facility] TROPONIN I 2022-09-19 15:38:00 Pedro Luis Rushing [facility] XR CHEST 2 VW 2022-09-19 14:38:32 [facility] 2022-09-19 14:20:21 Docto r Unassigned, [place] [facility] EXTERNAL PROVIDER RECORDS 2022-09-17 06:01:00 Doctor Unassigned, [place] [facility] ASSIGNMENT OF BENEFITS 2022-09-10 21:32:35 Docto r Unassigned, [place] [facility] POCT GLUCOSE (AUTOMATED) 2022-06-12 18:08:00 Jarred Barker [facility] BASIC METABOLIC PANEL (NA, K, CL, CO2, GLUCOSE, BUN, CREATININE, CA) 2022-06-12 09:27:00 Jimmy Rowland [facility] CBC WITH DIFF 2022-06-12 09:27:00 Jimmy Rowland Un [facility] POCT GLUCOSE (AUTOMATED) 2022-06-12 07:56:00 Jarred Barker [facility] POCT GLUCOSE (AUTOMATED) 2022-06-12 01:45:00 Jarred Barker [facility] POCT GLUCOSE (AUTOMATED) 2022-06-11 22:56:00 Jarred Barker [facility] POCT GLUCOSE (AUTOMATED) 2022-06-11 18:11:00 Jarred Barker [facility] POCT GLUCOSE (AUTOMATED) 2022-06-11 14:05:00 Jarred Barker [facility] PHOSPHORUS 2022-06-11 10:40:00 Robbi Muro [facility] CREATINE KINASE 2022-06-11 10:40:00 [facility] 2022-06-11 10:40:00 Robbi Muro [facility] LIPASE 2022-06-11 10:40:00 Robbi Muro [facility] MAGNESIUM 2022-06-11 10:40:00 Robbi Muro [facility] COMP. METABOLIC PANEL (12992) 2022-06-11 10:40:00 Rbobi Muro [facility] CBC WITH DIFF 2022-06-11 10:40:00 Robbi Muro [facility] GLYCOSYLATED HEMOGLOBIN (A1C) 2022-06-11 10:40:00 Jimmy Rowland [facility] N-TERMINAL PRO-BNP 2022-06-11 10:40:00 Robbi Muro [facility] POCT GLUCOSE (AUTOMATED) 2022-06-11 07:56:00 Jarred Barker [facility] URINE CULTURE 2022-06-11 05:18:00 Robbi Muro [facility] PROTHROMBIN TIME / INR 2022-06-11 03:24:00 Thang Muro [facility] LACTIC ACID WHOLE BLOOD 2022-06-11 03:18:00 Jory Muro [facility] C-REACTIVE PROTEIN 2022-06-11 03:17:00 Robbi Muro [facility] SEDIMENTATION RATE 2022-06-11 03:17:00 Robbi Muro [facility] PROCALCITONIN 2022-06-11 03:17:00 Robbi Muro [facility] US OVARY TORSION 2022-06-10 22:01:56 [facility] 2022-06-10 19:14:00 Brodie Clemons [facility] CT ABDOMEN PELVIS WO CONTRAST 2022-06-10 18:36:36 Brodie Clemons [facility] PHOSPHORUS 2022-06-10 17:54:00 Robbi Muro [facility] URIC ACID 2022-06-10 17:54:00 Robbi Muro [facility] LIPASE 2022-06-10 17:54[facility]22-06-10 17:54:00 Robbi Muro [facility] FERRITIN SERUM 2022-06-10 17:54:00 Robbi Muro [facility] HEPATIC FUNCTION PANEL (69494) (ALB,T.PRO,BILI T,BU/BC,ALT,AST,ALK PHOS) 2022-06-10 17:54:00 Brodie Clemons [facility] BASIC METABOLIC PANEL (NA, K, CL, CO2, GLUCOSE, BUN, CREATININE, CA) 2022-06-10 17:54:00 Brodie Clemons [facility] IRON PANEL 2022-06-10 17:54:00 Robbi Muro [facility] CBC WITH DIFF 2022-06-10 17:54:00 Brodie Clemons [facility] N-TERMINAL PRO-BNP 2022-06-10 17:54:00 Robbi Muro [facility] CONSENT/REFUSAL FOR DIAGNOSIS AND TREATMENT 2022-06-10 17:38:54 Doctor Unassigned, [place] [facility] REFERRAL- REQUEST/RESPONSE 2017-03-18 05:01:00 Doctor Unassigned, [place] [facility] Encounters Start Date/Time End Date/Time Encounter Type Admission Type Attending Clinicians Care Facility Care Department Encounter ID Source 2024-10-25 11:26:00 Outpatient Kenya Evans [facility] [id number] [facility] 2024-07-14 09:56:00 Outpatient Kenya Evans [facility] [id number] [facility] 2023-09-16 15:59:01 Outpatient Kenya Evans [facility] [id number] [facility] 2023-09-15 13:03:00 Outpatient Kenya Evans [facility] [id number] [facility] 2023-01-10 09:10:01 Outpatient Kenya Evans [facility] [id number] [facility] 2023-01-07 11:56:01 Outpatient Kenya Evans [facility] ST[facility] [id number] [facility] 2022-12-24 16:13:00 Outpatient Kenya Evans [facility] ST[facility] [id number] [facility] 2022-01-04 12:25:16 Outpatient KAYLA MAGDALENO [facility] [id number] [facility] 2021-08-29 12:51:44 Outpatient STLMLC STLML[facility] [id number] [facility] 2021-08-29 11:59:56 Outpatient STLMLC STLMLC [id number] [facility] 2021-08-29 11:28:05 Outpatient [facility]LMLC STLMLC [id number] [facility] 2021-08-29 11:27:12 Outpatient STLMLC STLMLC [id number] [facility] 2021-06-01 02:46:06 Emergency [facility] [id number] [facility] 2020-12-18 09:37:27 Outpatient [facility] [id number] [facility] 2020-12-18 09:37:27 Outpatient [facility] [id number] [facility] 2020-12-18 09:37:27 Outpatient [facility] [id number] [facility] 2020-12-15 12:03:34 Outpatient [facility] [id number] [facility] 2020-12-15 12:03:34 Outpatient [facility] [id number] [facility] 2020-12-15 12:00:05 Outpatient [facility] [id number] [facility] 2020-12-09 04:06:39 Outpatient LACEY CLEMENTS [facility] [id number] [facility] 2025-01-12 00:00:00 2025-01-12 00:00:00 (F/U) Follow Up Visit STLMLC STLMLC [id number] [facility] 2024-10-25 00:00:00 2024-10-25 00:00:00 (ESTPT) Establishe d Patient STLMLC STLC [id number] [facility] 2017-03-13 00:00:00 2024-09-18 03:41:08 Orders Only Doctor Unassigned, [place] Doctor Unassigned, [place] [facility] 1.2.840.114 350.1.13.10 4.2.7.2.686 [id number] [facility] 2023-12-17 00:00:00 2023-12-17 00:00:00 (PO) Post Op STLMLC STLMLC [id number] [facility] 2023-12-11 00:00:00 2023-12-11 00:00:00 (TEL) STLMLC STLMLC [id number] [facility] 2023-12-01 00:00:00 2023-12-01 00:00:00 (TEL) STLMLC STLMLC [id number] [facility] 2023-11-28 00:00:00 2023-11-28 00:00:00 (F/U) Follow Up Visit STLMLC STLMLC [id number] [facility] 2023-11-28 00:00:00 2023-11-28 00:00:00 (TEL) STLMLC STLMLC [id number] [facility] 2023-10-22 00:00:00 2023-10-22 00:00:00 Outpatient BREE GRIFFITH [facility] [id number] [facility] 2023-09-18 00:00:00 2023-09-18 00:00:00 (ESTPT) Establishe d Patient STLMLC STLMLC [id number] [facility] 2023-09-03 00:00:00 2023-09-03 00:00:00 Patient Secure Msg Doctor Unassigned, [place] [facility] 1.2840.114 350.1.13.10 4.2.7.2.686 [id number] [facility] 2023-09-01 00:00:00 2023-09-01 00:00:00 Transition of Care Terriejesus alberto Veronika L MIKFanta BETHANY SANTOS 1.84.114 350.1.13.10 4.2.7.2.686 [id number] [facility] 2023-08-29 10:29:00 2023-08-30 14:13:00 Outpatient X ANNAMARIA BARKER [facility] [id number] [facility] 2023-08-29 10:29:00 2023-08-30 14:13:00 Emergency Drever, Marylou Barker [facility] 1.84.114 350.1.13.10 4.2.7.2.686 [id number] [facility] 2023-08-30 00:00:00 2023-08-30 00:00:00 Telephone Bree Welsh [facility] 1.84.114 350.1.13.10 4.2.7.2.686 [id number] [facility] 2023-05-23 00:00:00 2023-05-23 00:00:00 (PO) Post Op STLMLC STLMLC [id number] [facility] 2023-05-07 00:00:00 2023-05-07 00:00:00 NON-BILLAB LE VISIT STLMLC STLC [id number] [facility] 2023-04-29 00:00:00 2023-04-29 00:00:00 (TEL) STLMLC STLMLC [id number] [facility] 2023-04-08 00:00:00 2023-04-08 00:00:00 (TEL) STLMLC STLMLC [id number] [facility] 2023-04-03 00:00:00 2023-04-03 00:00:00 (TEL) STLMLC STLMLC [id number] [facility] 2023-03-19 00:00:00 2023-03-19 00:00:00 (TEL) STLMLC STLMLC [id number] [facility] 2023-03-17 00:00:00 2023-03-17 00:00:00 OFFICE VISIT ESTAB PT LEVEL [id number] [facility] 2023-01-13 00:00:00 2023-01-13 00:00:00 OFFICE VISIT ESTAB PT LEVEL [id number] [facility] 2023-01-07 00:00:00 2023-01-07 00:00:00 OFFICE VISIT ESTAB PT LEVEL [id number] [facility] 2022-12-31 00:00:00 2022-12-31 00:00:00 [facility] [address].840.114 350.1.13.10 4.2.7.2.686 [id number] [facility] 2022-12-31 00:00:00 2022-12-31 00:00:00 Orders Only Doctor Unassigned, [place] [address]840.114 350.1.13.10 4.2.7.2.686 [id number] [facility] 2022-12-27 09:20:00 2022-12-27 09:20:00 Office Visit Billy, Q[facility] 1.2.840.114 350.1.13.10 4.2.7.2.686 [id number] [facility] 2022-12-27 09:20:00 2022-12-27 09:12:16 [facility] [id number] [facility] 2022-12-26 09:40:00 2022-12-26 09:40:00 Outpatient R [facility]ILLY [facility] [id number] [facility] 2022-12-20 00:00:00 2022-12-20 00:00:00 Orders Only Doctor Unassigned, [place] [facility] 1.840.114 350.1.13.10 4.2.7.2.686 [id number] [facility] 2022-09-23 06:38:00 2022-09-23 09:05:00 Outpatient R KAYLA LUTZ [facility] [id number] [facility] 2022-09-23 06:38:00 2022-09-23 09:05:00 Hospital Encounter Kayla Lutz [facility] 1.840.114 350.1.13.10 4.2.7.2.686 [id number] [facility] 2022-09-23 07:25:00 2022-09-23 07:50:00 Surgery Kayla Lutz [facility] 1.2840.114 350.1.13.10 4.2.7.2.686 [id number] [facility] 2022-09-23 00:00:00 2022-09-23 00:00:00 Orders Only Doctor Unassigned, [place] [facility] 1.2840.114 350.1.13.10 4.2.7.2.686 [id number] [facility] 2022-09-20 00:00:00 2022-09-20 00:00:00 Telephone [facility] 1.2840.114 350.1.13.10 4.2.7.2.686 [id number] [facility] 2022-09-19 10:05:00 2022-09-19 11:39:00 Emergency X PEDRO LUIS RUSHING PEDRO LUIS [facility] [id number] [facility] 2022-09-19 10:05:00 2022-09-19 11:39:00 Emergency Pedro Luis Rushing [facility] 1.2840.114 350.1.13.10 4.2.7.2.686 [id number] [facility] 2022-09-19 10:15:00 2022-09-19 10:30:00 Solution Manager Visit Pob, Adc Lab Main Kayla Lutz [facility] 1.2840.114 350.1.13.10 4.2.7.2.686 [id number] [facility] 2022-09-19 08:22:49 2022-09-19 10:04:00 Hospital Encounter Piotr Lutzbrandon Serra [facility] 1.2840.114 350.1.13.10 4.2.7.2.686 [id number] [facility] [facility]-09-19 08:21:46 2022-09-19 08:21:46 Outpatient R KAYLA LUTZ [facility] [id number] [facility] 2022-09-19 00:00:00 2022-09-19 00:00:00 Orders Only Doctor Unassigned, [place] [facility] 1.2840.114 350.1.13.10 4.2.7.2.686 [id number] [id number] [facility] 2022-09-17 00:00:00 2022-09-17 00:00:00 Orders Only Doctor Unassigned, [place] [facility] 1.2.114 350.1.13.10 4.2.7.2.686 [id number] [id number] [facility] 2022-09-16 00:00:00 2022-09-16 00:00:00 Prep For Surgery Joni Kayla Ponce [facility]Y [facility] MEDICAL OFFICE BUILDING 1.114 350.1.13.10 4.2.7.2.686 [id number] 198 [id number] [facility] 2022-09-10 16:30:00 2022-09-10 23:59:00 Outpatient R KEANU BERNICE [facility] [id number] [facility] 2022-09-10 16:00:00 2022-09-10 16:15:00 [facility] MED[facility] OFF[facility] BU[facility] 1.84.114 350.1.13.10 4.2.7.2.686 [id number] 198 [id number] [facility] 2022-09-10 00:00:00 2022-09-10 00:00:00 Orders Only Doctor Unassigned, [place] [facility] 1.84114 350.1.13.10 4.2.7.2.686 [id number] 009 [id number] [facility] 2022-09-10 00:00:00 2022-09-10 00:00:00 Telephone Keanu [facility]?KAYLANJory [facility] 1.84.114 350.1.13.10 4.2.7.2.686 [id number] 198 [id number] [facility] 2022-09-09 00:00:00 2022-09-09 00:00:00 Telephone Keanu [facility]?NATY [facility] MEDICAL OFFICE BUILDING 1.114 350.1.13.10 4.2.7.2.686 [id number] 198 [id number] [facility] 2022-06-13 00:00:00 2022-06-13 00:00:00 Transition of Care Chelo Cornejo 1..840.114 350.1.13.10 4.2.7.2.686 [id number] [facility] 2022-06-10 11:37:00 2022-06-12 16:00:00 Outpatient ANNAMARIA RAY [facility] [id number] [facility] 2022-06-10 11:37:00 2022-06-12 16:00:00 Emergency Brodie Clemons David [facility] 1..840.114 350.1.13.10 4.2.7.2.686 [id number] [facility] 2022-04-19 08:55:00 2022-04-19 23:59:00 Outpatient BERNICE REYES [facility] [id number] [facility] 2022-04-19 08:55:00 2022-04-19 23:59:00 Outpatient BERNICE REYES [facility] [id number] [facility] 2022-04-19 08:45:00 2022-04-19 09:00:00 Office Visit Bernice Colunga [facility]?NATY [facility] 1.2.840.114 350.1.13.10 4.2.7.2.686 [id number] [facility] 2022-02-25 15:15:00 2022-02-25 15:15:00 Outpatient BERNICE REYES [facility] [id number] [facility] 2022-02-21 10:45:00 2022-02-21 10:45:00 Outpatient BERNICE REYES [facility] [id number] [facility] 2022-02-18 10:30:00 2022-02-18 10:30:00 Outpatient R FILIPE WIGGINS [facility] [id number] [facility] 2022-01-18 10:00:00 2022-01-18 10:00:00 Outpatient R CLAYTON GARRIDO [facility] [id number] [facility] 2022-01-17 00:00:00 2022-01-17 00:00:00 Refill Kayla Lutz [facility]?NATY MCKEON [facility] OFF[facility] BUILD[facility] 1.84.114 350.1.13.10 4.2.7.2.686 [id number] [facility] 2022-01-14 06:59:00 2022-01-14 09:15:00 Outpatient R KAYLA LUTZ [facility] [id number] [facility] 2022-01-14 06:59:00 2022-01-14 09:15:00 Hospital Encounter Kayla Lutz [facility] 1.2840.114 350.1.13.10 4.2.7.2.686 [id number] [facility] 2022-01-14 08:20:00 2022-01-14 09:12:00 Surgery Kayla [facility]utz [facility] 1.840.114 350.1.13.10 4.2.7.2.686 [id number] [facility] 2022-01-14 08:25:00 2022-01-14 08:39:00 Anesthesia Event Bharath Padgett John M [facility] 1.2.114 350.1.13.10 4.2.7.2.686 [id number] 020 [id number] [facility] 2022-01-14 00:00:00 2022-01-14 00:00:00 Orders Only Doctor Unassigned, [place] [facility] 1.2.840.114 350.1.13.10 4.2.7.2.686 [id number] [facility] 2022-01-11 07:39:32 2022-01-11 23:59:00 Hospital Encounter Kayla Lutz [facility] 1.2.840.114 350.1.13.10 4.2.7.2.686 [id number] [facility] 2022-01-11 07:39:18 2022-01-11 23:59:00 Outpatient R KAYLA LUTZ [facility] [id number] [facility] 2022-01-11 08:30:00 2022-01-11 08:45:00 Solution Manager Visit Pob, Adc Lab Main Kayla Lutz [facility] PROFESSIO NAL BUILDING 1..84.114 350.1.13.10 4.2.7.2.686 [id number] [facility] 2022-01-11 08:15:00 2022-01-11 08:30:00 Laboratory Only Only, Adc Test Kayla Lutz [facility] 1.2840.114 350.1.13.10 4.2.7.2.686 [id number] [facility] 2022-01-11 08:15:00 2022-01-11 08:15:00 Outpatient R KAYLA LUTZ [facility] [id number] [facility] 2022-01-11 00:00:00 2022-01-11 00:00:00 Telephone Kayla Lutz [facility] 1.2.84.114 350.1.13.10 4.2.7.2.686 [id number] 198 [id number] [facility] 2022-01-04 11:15:00 2022-01-04 11:30:00 Office Visit Bernice Colunga [facility]?BLEA KNEY [facility] OFF[facility] BUILDING 1.2.840.114 350.1.13.10 4.2.7.2.686 [id number] 198 [id number] [facility] 2022-01-04 11:15:00 2022-01-04 11:15:00 Outpatient Shira BERNICE COLUNGA [facility] [id number] [facility] 2022-01-04 11:15:00 2022-01-04 11:15:00 Outpatient Shira KEANU BERNICE [facility] [id number] [facility] 2022-01-04 00:00:00 2022-01-04 00:00:00 [facility] 1.2.840.114 350.1.13.10 4.2.7.2.686 [id number] 198 [id number] [facility] 2021-12-20 10:00:00 2021-12-20 10:00:00 Outpatient R KAYLA LUTZ [facility] [id number] [facility] 2021-12-11 00:00:00 2021-12-11 00:00:00 Telephone Kayla Lutz [facility] 1.2.840.114 350.1.13.10 4.2.7.2.686 [id number] 198 [id number] [facility] 2021-12-07 10:23:58 2021-12-07 23:59:00 Outpatient Shira KEANU BERNICE [facility] [id number] [facility] 2021-12-07 10:23:58 2021-12-07 23:59:00 [facility] Bernice Jackson [facility] 1..840.114 350.1.13.10 4.2.7.2.686 [id number] [facility] 2021-11-30 10:45:00 2021-11-30 11:13:44 Outpatient R BERNICE COLUNGA [facility] [id number] [facility] 2021-11-30 10:45:00 2021-11-30 11:13:44 [facility] MED[facility] OFF[facility] BUILD[facility] 1..840.114 350.1.13.10 4.2.7.2.686 [id number] 198 [id number] [facility] 2021-11-30 10:45:00 2021-11-30 11:13:44 Outpatient R BERNICE COLUNGA [facility] [id number] [facility] 2021-11-28 00:00:00 2021-11-28 00:00:00 Telephone [facility] MED[facility] OFF[facility] BUILD[facility] 1..840.114 350.1.13.10 4.2.7.2.686 [id number] [facility] 2021-11-28 00:00:00 2021-11-28 00:00:00 Orders Only Doctor Unassigned, [place] [facility] 1.840.114 350.1.13.10 4.2.7.2.686 [id number] [id number] [facility] 2021-11-27 00:00:00 2021-11-27 00:00:00 Telephone [facility] MED[facility] 1.840.114 350.1.13.10 4.2.7.2.686 [id number] 198 [id number] [facility] 2021-11-22 00:00:00 2021-11-22 00:00:00 Orders Only Doctor Unassigned, [place] [facility] 1.84.114 350.1.13.10 4.2.7.2.686 [id number] [id number] [facility] 2021-11-21 00:00:00 2021-11-21 00:00:00 Telephone [facility] MED[facility] 1.2840.114 350.1.13.10 4.2.7.2.686 [id number] [facility] 2021-11-21 00:00:00 2021-11-21 00:00:00 Telephone Kayla Lutz [facility] 1.2840.114 350.1.13.10 4.2.7.2.686 [id number] 198 [id number] [facility] 2021-11-19 00:00:00 2021-11-19 00:00:00 Telephone Bernice Colunga [facility] 1.2840.114 350.1.13.10 4.2.7.2.686 [id number] 198 [id number] [facility] 2021-11-19 00:00:00 2021-11-19 00:00:00 Telephone Kayla Lutz [facility] 1.2840.114 350.1.13.10 4.2.7.2.686 [id number] 198 [id number] [facility] 2021-11-12 00:00:00 2021-11-12 00:00:00 Telephone Kayla Lutz [facility] 1.2840.114 350.1.13.10 4.2.7.2.686 [id number] 198 [id number] [facility] 2021-10-29 00:00:00 2021-10-29 00:00:00 Telephone Kayla Lutz [facility] 1.2840.114 350.1.13.10 4.2.7.2.686 [id number] 198 [id number] [facility] 2021-10-26 00:00:00 2021-10-26 00:00:00 Telephone [facility] 1..840.114 350.1.13.10 4.2.7.2.686 [id number] 198 [id number] [facility] 2021-10-24 09:30:00 2021-10-24 10:20:40 Outpatient R KEANU [facility] [id number] [facility] 2021-10-24 09:30:00 2021-10-24 10:20:40 Office Visit Keanu [facility]?NATY FERNANDEZ MEDICAL OFFICE BUILDING 1..840.114 350.1.13.10 4.2.7.2.686 [id number] 198 [id number] [facility] 2021-10-24 09:30:00 2021-10-24 10:20:40 Outpatient R KEANU [facility] [id number] [facility] 2021-10-24 09:30:00 2021-10-24 10:20:40 Office Visit Keanu [facility]?NATY FERNANDEZ [facility] 1..840.114 350.1.13.10 4.2.7.2.686 [id number] 198 [id number] [facility] 2021-10-19 00:00:00 2021-10-19 00:00:00 [facility] 1..840.114 350.1.13.10 4.2.7.2.686 [id number] 198 [id number] [facility] 2021-10-18 00:00:00 2021-10-18 00:00:00 [facility] 1.2.840.114 350.1.13.10 4.2.7.2.686 [id number] 198 [id number] [facility] 2021-10-12 14:00:00 2021-10-12 15:00:16 Outpatient RENÉE VILLARREAL HOWARD [facility] [id number] [facility] 2021-10-02 00:00:00 2021-10-02 00:00:00 Telephone Keanu [facility]?NATY LINDA MEDICAL OFFICE BUILDING 1..840.114 350.1.13.10 4.2.7.2.686 [id number] 198 [id number] [facility] 2021-10-02 00:00:00 2021-10-02 00:00:00 Orders Only Doctor Unassigned, [place] [address].840.114 350.1.13.10 4.2.7.2.686 [id number] 009 [id number] [facility] 2021-09-27 00:00:00 2021-09-27 00:00:00 Orders Only Doctor Unassigned, [place] [address].840.114 350.1.13.10 4.2.7.2.686 [id number] 009 [id number] [facility] 2021-09-24 15:50:00 2021-09-24 23:59:00 Outpatient BERNICE REYES [facility] [id number] [facility] 2021-07-02 00:00:00 2021-07-02 00:00:00 (TEL) STLMLC STLC [id number] [facility] 2021-06-27 14:15:00 2021-06-27 14:15:00 Outpatient BERNICE REYES [facility] [id number] [facility] 2021-06-27 14:15:00 2021-06-27 14:15:00 Outpatient BERNICE REYES [facility] [id number] [facility] 2021-06-27 13:39:57 2021-06-27 13:54:57 Office Visit Keanu [facility]?KAYLANJory MCKEON MED[facility] OFF[facility]ILD[facility] 1..840.114 350.1.13.10 4.2.7.2.686 [id number] 198 [id number] [facility] 2021-06-26 15:45:00 2021-06-26 15:45:00 Outpatient R BERNICE COLUNGA [facility] [id number] [facility] 2021-06-26 15:45:00 2021-06-26 15:45:00 Outpatient R COLUNGA [facility] [id number] [facility] 2021-06-25 00:00:00 2021-06-25 00:00:00 [facility] 1.2.840.114 350.1.13.10 4.2.7.2.686 [id number] 198 [id number] [facility] 2021-05-23 00:00:00 2021-05-23 00:00:00 Telephone Keanu [facility] Medical Office Building 1.2.840.114 350.1.13.10 4.2.7.2.686 [id number] 198 [id number] [facility] 2021-05-22 13:00:00 2021-05-22 23:59:00 [facility] Medical Office Building 1.2.840.114 350.1.13.10 4.2.7.2.686 [id number] [facility] 2021-05-22 16:15:00 2021-05-22 14:56:21 Outpatient R KEANU BERNICE [facility] [id number] [facility] 2021-05-22 16:15:00 2021-05-22 14:56:21 Outpatient R COLUNGA [facility] [id number] [facility] 2021-05-22 12:47:56 2021-05-22 14:56:21 [facility] 1.2.840.114 350.1.13.10 4.2.7.2.686 [id number] [facility] 2021-05-22 00:00:00 2021-05-22 00:00:00 Orders Only Doctor Unassigned, [place] [facility] 1.84.114 350.1.13.10 4.2.7.2.686 [id number] [id number] [facility] 2021-04-23 10:10:00 2021-04-23 10:10:00 Outpatient ANDREW BRAY [facility] [id number] [facility] 2021-04-23 10:00:06 2021-04-23 10:00:17 Imm/Inj Visit Nurse, [facility]iley [facility] 1.840.114 350.1.13.10 4.2.7.2.686 [id number] [facility] 2021-04-02 14:40:00 2021-04-02 14:40:00 Outpatient ANDREW BRAY [facility] [id number] [facility] 2021-04-02 13:41:25 2021-04-02 13:41:44 Imm/Inj Visit Nurse, Hailey Dutta ImmunizAndrew Cazares [facility] 1.840.114 350.1.13.10 4.2.7.2.686 [id number] [facility] 2021-01-26 00:00:00 2021-01-26 00:00:00 Lacey Granados [facility] 1.840.114 350.1.13.58 9.2.7.2.686 [id number] 2021-01-26 00:00:00 2021-01-26 00:00:00 Lacey Granados [facility] 1.2.840.114 350.1.13.58 9.2.7.2.686 [id number] 1 [id number] [facility] 2020-12-18 09:22:21 2020-12-18 12:11:17 Office Visit Jonas Barker [facility] 1 1.2.840.114 350.1.13.58 9.2.7.2.686 [id number] 2020-12-18 09:22:21 2020-12-18 12:11:17 Office Visit Jonas Barker [facility] 1 1.2840.114 350.1.13.58 9.2.7.2.686 [id number] [facility] 2020-09-06 00:00:00 2020-09-06 00:00:00 (TEL) STLMLC STLMLC [id number] [facility] 2020-07-20 00:00:00 2020-07-20 00:00:00 (TEL) STLMLC STLMLC [id number] [facility] 2020-07-12 00:00:00 2020-07-12 00:00:00 (TEL) STLMLC STLMLC [id number] [facility] 2020-06-21 00:00:00 2020-06-21 00:00:00 Out[address]C STLMLC [id number] [facility] 2020-06-12 00:00:00 2020-06-12 00:00:00 Outpatient [address]LMLC STLMLC [id number] [facility] 2020-06-06 00:00:00 2020-06-06 00:00:00 [address]C STLMLC [id number] [facility] 2020-01-26 20:05:19 2020-01-26 21:04:00 Emergency Calin Lazar [facility] 1.2.840.114 350.1.13.10 4.2.7.2.686 [id number] 2020-01-26 20:05:19 2020-01-26 21:04:00 Emergency Calin Lazar [facility] 1.2.840.114 350.1.13.10 4.2.7.2.686 [id number] [facility] 2020-01-26 00:00:00 2020-01-26 00:00:00 Orders Only Doctor Unassigned, [place] [facility] 1.2.840.114 350.1.13.10 4.2.7.2.686 [id number] [id number] 2020-01-26 00:00:00 2020-01-26 00:00:00 Orders Only Doctor Unassigned, [place] [facility] 1.2.840.114 350.1.13.10 4.2.7.2.686 [id number] [id number] [facility] 2020-01-20 08:00:00 2020-01-20 08:00:00 Outpatient [facility] [id number] [facility] 2020-01-20 00:00:00 2020-01-20 00:00:00 Orders Only Doctor Unassigned, [place] [facility] 1.2.840.114 350.1.13.10 4.2.7.2.686 [id number] [id number] [facility] 2020-01-20 00:00:00 2020-01-20 00:00:00 Orders Only Doctor Unassigned, [place] [facility] 1.2.840.114 350.1.13.10 4.2.7.2.686 [id number] 009 [id number] Results Test Description Test Time Test Comments Results Result Co mments Source [facility]2023-08-30 13:51:48* Test Item Value Reference Range Interpretation Comme nts POCT GLU (test code = 8462512996) 105 mg/dL 70-110 Lab Interpretation (test cod e = 67323-3) Normal [facility] Hospital[facility]cos[facility] Hemoglobin (A1C)2023-08-30 05:45:04* Test Item Value Reference Range Interpretation Comme [facility] HGB A1C (test code = 4548-4) 6.0 % 4.0-5.7 H SRIRAM (test code = SRIRAM) Reference RangesNormal: <5.7%Prediabetes: 5.7 - 6.4%Diabetes: > 6.5% Lab Interpretation (test code = 04990-0) Abnormal [facility] GLU[facility]SE (AUTOMATED)2023-08-30 02:23:04* Test Item Value Reference Range Interpretation Comme [facility] POCT GLU (test code = 9996622636) 101 mg/dL 70-110 Lab Interpretation (test cod e = 71865-2) Normal [facility] ABDOMEN PELVIS W [id number] 00:26:53PROCEDURE:CT ABDOMEN PELVIS W CONTRAST ORDERING PHYSICIAN: MARYLOU DRIVER HISTORY: ?Abdominal painTECHNIQUE: Helical CT of the abdomen and pelvis was performed usingnon-ionic intravenous contrast. CT scan was performed according to ALARA (as low as reasonably achievable)principle. TECHNICAL QUALIT Y: Adequate COMPARISON: ?CT abdomen/pelvis W/02/[address] ABDOMEN/PELVIS: Lower thorax: ?The lung [...] lesions. Vazquez: (S/I) = seriesnumber / image [facility]UnMad[facility] CHEST PULMONARY ANGIOGRAM 2023-08-29 19:22:01CT SCAN OF [...] abnormalities.[facility] [id number] 17:47:43* Test Item Value Reference Range Interpretation Comme nts TROPONIN I (test code = 9326688794) 0.001 ng/mL <=0.034 SRIRAM (test code = [...] of biotin. Lab Interpretation (test code = 50888-4) [facility] 17:36:59* Test Item Value Reference Range Interpretation Comme nts MAGNESIUM (test code = 1877995645) 1.7 mg/dL 1.7-2.4 Lab Interpretation (test cod e = 86423-2) Normal [facility] HospitalCOMP. METABOLIC PANEL (50886)2023-08-29 17:36:38* Test Item Value Reference Range Interpretation Comme nts NA (test code = 9089314268) 139 mmol/L 135-145 K (test code = 3720333190) 4.1 mmol/L 3.5-5.0 CL (test code = 2025356173) 107 mmol/L 98-108 CO2 TOTAL (test code = 8132480137) 25 mmol/L 23-31 AGAP (test code = 5837550347) 7 2-16 BUN (test code = 8165527368) 13 mg/dL 7-23 GLUCOSE (test code = 5818298330) 114 mg/dL 70-110 H CREATININE (test code = 7408674374) 0.75 mg/dL 0.50-1.04 TOTAL BILI (test code = 2015191491) 0.6 mg/dL 0.1-1.1 CALCIUM (test code = 5551651807) 9.6 mg/dL 8.6-10.6 T PROTEIN (test code = 3299359745) 7.7 g/dL 6.3-8.2 ALBUMIN (test code = 8285175644) 4.1 g/dL 3.5-5.0 ALK PHOS (test code = 2957605233) 121 U/L 34-122 ALTv (test code = 1742-6) 16 U/L 5-35 AST(SGOT) (test code = 7214142340) 24 U/L 13-40 eGFR (test code = 59750-5) 94.7 mL/min/1.73m2 CKD-EPI eGFR (2020). Assuming creatinine has been stable day-to-day for at least three months, the eGFR indicates Category G1 (>= 90 mL/min/1.73 m2) Lab Interpretation (test code = 87198-5) Abnormal [facility]2024-01-26 17:36:22* Test Item Value Reference Range Interpretation Comme nts LIPASE (test code = 7568547502) 82 U/L 0-220 Lab Interpretation (test cod e = 70081-3) Normal [facility] HospitalD-[id number] 17:34:40* Test Item Value Reference Range Interpretation Comments D-DIMER (test code = 2141193720) 0.96 See_Comment H [Automated message] The system [...] a diagnosis. Lab Interpretation (test code = 67336-8) Abnormal [facility] HospitalXR CHEST 1 [id number] 17:17:59EXAM: XR CHEST 1 VW 08/29/2023 10:59 AM HISTORY: 53 years-old Female with chest pain . TECHNIQUE: Portable AP view of the chest. COMPARISON: None. FINDINGS: Lines and tubes: None. Cardiomediastinal: The cardiomediastinal silhouette is normal in sizeaccounting for depth of inspiration. Lungs and pleura: Low lung volumes. Noacute infiltrate or effusion. Included osseous structures show no acute abnor mality.[facility] WITH [id number] 17:17:19* Test Item Value Reference Range Interpretation [...] g/dL 31.6-35.1 L RDW-SD (test code = 29330-1) 52.5 fL 39.0-49.9 H RDW-CV (test code = 788-0) 17.5 % 12.0-15.5 H PLT (test code = 777-3) 344 See_Comment [Automated messa ge] The system which generated this result transmitted reference range: 166 - 358 10*3/?L. The reference range was not used to interpret this result as normal/abnormal. MPV (test code = 02539-5) 10.0 fL 9.5-12.9 NRBC/100 WBC (test code = 5763597241) 0.0 See_Comment [Automated me ssage] The system which generated this result transmitted reference range: 0.0 - 10.0 /100 WBCs. The reference range was not used to interpret this result as normal/abnormal. NRBC x10^3 (test code = 3369521077) See_Comment [Automated messa ge] The system which generated this result transmitted reference range: 10*3/?L. The reference range was not used to interpret this result as normal/abnormal. GRAN MAT (NEUT) % (test code = 770-8) 68.0 % IMM GRAN % (test code = 0843435286) 0.20 % LYMPH % (test code = 736-9) 23.8 % MONO % (test code = 5905-5) 6.1 % EOS % (test code = 713-8) 1.6 % BASO % (test code = 706-2) 0.3 % GRAN MAT x10^3(ANC) (test code = 7045081595) 4.14 10*3/uL 1.88-7.09 IMM GRAN x10^3 (test code = 4446726064) 0.00-0.06 LYMPH x10^3 (test code = 731-0) 1.45 10*3/uL 1.32-3.29 MONO x10^3 (test code = 742-7) 0.37 10*3/uL 0.33-0.92 EOS x10^3 (test code = 711-2) 0.10 10*3/uL 0.03-0.39 BASO x10^3 (test code = 704-7) 0.01-0.07 Lab Interpretation (test code = 99593-9) [facility] This is a pre-surgical type and screen. ONCE [id number] 13:38:39* Test Item Value Reference Range Interpretation Comme nts ABO & RH (test code = 20) O Positive Performed at [facility] Laboratory [facility] Blood [place] [address]Toll Free: [phone] No. [id number] IAT (test code = 1185) Negative Performed at [facility] Blood [address]Toll Free: [phone] No. [id number] [facility] This is a pre-surgical type and screen. ONCE [id number] 13:38:39* Test Item Value Reference Range Interpretation Comme nts ABO & RH (test code = 20) O Positive Performed at [facility] Laboratory [facility] Blood [address]Toll Free: [phone] No. [id number] IAT (test code = 1185) Negative Performed at [facility] Laboratory [facility] Blood [address]Toll Free: [phone] No. [id number] [facility]23 12:53:02* Test Item Value Reference Range Interpretation Comme nts POCT GLU (test code = 9855831540) 105 mg/dL 70-110 Lab Interpretation (test cod e = 09864-9) Normal [facility] GLUCOSE (AUTOMATED)2022-09-23 12:53:02* Test Item Value Reference Range Interpretation Comme nts POCT GLU (test code = 7386785021) 105 mg/dL 70-110 Lab Interpretation (test cod e = 29231-2) [id number] 17:00:16* Test Item Value Reference Range Interpretation Comme nts TROPONIN I (test code = 9395055758) 0.003 ng/mL <=0.034 SRIRAM (test code = [...] of biotin. Lab Interpretation (test code = 58168-1) Normal [facility] GLUCOSE (AUTOMATED)2022-06-12 18:17:12* Test Item Value Reference Range Interpretation Comme nts POCT GLU (test code = 4671681457) 161 mg/dL 70-110 H Lab Interpretation (test cod e = 45650-7) Abnormal [facility] GLUCOSE (AUTOMATED)2022-06-12 08:00:25* Test Item Value Reference Range Interpretation Comme nts POCT GLU (test code = 8900818943) 122 mg/dL 70-110 H Lab Interpretation (test cod e = 86969-8) Abnormal [facility] GLUCOSE (AUTOMATED)2022-06-12 01:58:54* Test Item Value Reference Range Interpretation Comme nts POCT GLU (test code = 7008427833) 124 mg/dL 70-110 H Lab Interpretation (test cod e = 86159-0) Abnormal [facility] GLUCOSE (AUTOMATED)2022-06-11 22:59:46* Test Item Value Reference Range Interpretation Comme nts POCT GLU (test code = 1851063375) 115 mg/dL 70-110 H Lab Interpretation (test cod e = 69418-5) Abnormal [facility] GLUCOSE (AUTOMATED)2022-06-11 22:59:46* Test Item Value Reference Range Interpretation Comme nts POCT GLU (test code = 8463836741) 104 mg/dL 70-110 Lab Interpretation (test cod e = 67068-8) Normal [facility] GLUCOSE (AUTOMATED)2022-06-11 14:11:49* Test Item Value Reference Range Interpretation Comme nts POCT GLU (test code = 9363522468) 91 mg/dL 70-110 Lab Interpretation (test cod e = 65383-2) Normal [facility]IR[facility] [id number] 09:07:50* Test Item Value Reference Range Interpretation Comme nts IRON (test code = 6038359458) 39 ug/dL 50-160 L TIBC (test code = 5807895961) 346 ug/dL 250-410 % FE SAT (test code = 2186210596) 11 % 20-50 L Lab Interpretation (test cod e = 33034-7) Abnormal [facility] HospitalFERRITIN [id number] 08:27:06* Test Item Value Reference Range Interpretation Comme nts FERRITIN (test code = 1540646988) 7.5 ng/mL 11.0-264.0 L SRIRAM (test code = SRIRAM) Biotin has been reported to cause a negative bias, interpret results relative to patient's use of biotin. Lab Interpretation (test code = 48376-7) Abnormal [facility] HospitalN-TERMINAL [id number] 08:01:40* Test Item Value Reference Range Interpretation Comme nts NT-proBNP (test code = 5802973468) 39 pg/mL See_Comment [Automated message] The system which generated this result transmitted reference range: <=125. The reference range was not used to interpret this result as normal/abnormal. SRIRAM (test code = SRIRAM) Biotin has been reported to cause a negative bias, interpret results relative to patient's use of biotin. Lab Interpretation (test code = 57153-4) Normal [facility]2022-06-11 07:59:15* Test Item Value Reference Range Interpretation Comme nts POCT GLU (test code = 5216619446) 141 mg/dL 70-110 H Lab Interpretation (test cod e = 53863-1) Abnormal [facility]MAGN[facility]IUM2022-11-08 07:59:15* Test Item Value Reference Range Interpretation Comme nts MAGNESIUM (test code = 8017075224) 1.6 mg/dL 1.7-2.4 L Lab Interpretation (test cod e = 28145-9) Abnormal [facility]PHOS[facility]ORUS2022-11-08 07:59:10* Test Item Value Reference Range Interpretation Comme nts PHOSPHORUS (test code = 7762192666) 2.6 mg/dL 2.5-5.0 Lab Interpretation (test cod e = 66484-1) Normal [facility] HospitalURIC [id number] 07:59:05* Test Item Value Reference Range Interpretation Comme nts URIC ACID (test code = 2767765055) 3.0 mg/dL 2.9-6.0 Lab Interpretation (test cod e = 17020-0) Normal [facility] (NA, K, CL, CO2, GLUCOSE, BUN, CREATININE, CA)2022-06-10 18:34:39* Test Item Value Reference Range Interpretation Comme nts NA (test code = 7354578718) 139 mmol/L 135-145 K (test code = 8619047741) 4.2 mmol/L 3.5-5.0 CL (test code = 0282158360) 105 mmol/L 98-108 CO2 TOTAL (test code = 4116521367) 28 mmol/L 23-31 AGAP (test code = 1299960625) 2-16 BUN (test code = 4333847646) 15 mg/dL 7-23 GLUCOSE (test code = 3228503714) 106 mg/dL 70-110 CREATININE (test code = 7955176540) 0.75 mg/dL 0.50-1.04 CALCIUM (test code = 0265963400) 9.0 mg/dL 8.6-10.6 eGFR (test code = 3453026444) mL/min/1.73m2 SRIRAM (test code = SRIRAM) Association [...] or urine or abnormalities in imaging tests). [facility] HospitalHEPAT[facility] FUN[facility] PANEL (91457) (ALB,T.PRO,BILI T,BU/BC,ALT,AST,ALK PHOS)2022-06-10 18:34:39* Test Item Value Reference Range Interpretation Comme nts TOTAL BILI (test code = 1464649723) 0.4 mg/dL 0.1-1.1 BILI UNCON (test code = 0485052553) 0.2 mg/dL 0.1-1.1 BILI CONJ (test code = 8771519082) 0.0 mg/dL 0.0-0.3 T PROTEIN (test code = 0988175455) 6.9 g/dL 6.3-8.2 ALBUMIN (test code = 4890486269) 4.0 g/dL 3.5-5.0 ALK PHOS (test code = 6667760550) 139 U/L 34-122 H ALTv (test code = 1742-6) 23 U/L 5-35 AST(SGOT) (test code = 7044345547) 21 U/L 13-40 Lab Interpretation (test cod e = 61682-2) Abnormal [facility] HospitalLIPASE2022-11-07 18:34:39* Test Item Value Reference Range Interpretation Comme nts LIPASE (test code = 3550920939) 108 U/L 0-220 Lab Interpretation (test cod e = 25384-4) Normal [facility] HospitalCB WITH [id number] 18:27:20* Test Item Value Reference Range Interpretation Comme nts WBC (test code = 6690-2) See_Comment [Automated [facility]] The system which generated this result [...] 31.8 g/dL 31.6-35.1 RDW-SD (test code = 58911-3) 48.3 fL 39.0-49.9 RDW-CV (test code = 788-0) 15.4 % 12.0-15.5 PLT (test code = 777-3) See_Comment [Automated [facility]] The system which generated this result transmitted reference range: 166 - 358 10*3/?L. The reference range was not used to interpret this result as normal/abnormal. MPV (test code = 09776-9) 10.4 fL 9.5-12.9 NRBC/100 WBC (test code = 3318288290) See_Comment [Automated me ssage] The system which generated this result transmitted reference range: 0.0 - 10.0 /100 WBCs. The reference range was not used to interpret this result as normal/abnormal. NRBC x10^3 (test code = 8024720665) See_Comment [Automated me ssage] The system which generated this result transmitted reference range: 10*3/?L. The reference range was not used to interpret this result as normal/abnormal. GRAN MAT (NEUT) % (test code = 770-8) 62.1 % IMM GRAN % (test code = 0932018019) 0.50 % LYMPH % (test code = 736-9) 29.1 % MONO % (test code = 5905-5) 7.3 % EOS % (test code = 713-8) 0.6 % BASO % (test code = 706-2) 0.4 % GRAN MAT x10^3(ANC) (test code = 7650563437) 5.30 10*3/uL 1.88-7.09 IMM GRAN x10^3 (test code = 8515573236) 0.04 10*3/uL 0.00-0.06 LYMPH x10^3 (test code = 731-0) 2.48 10*3/uL 1.32-3.29 MONO x10^3 (test code = 742-7) 0.62 10*3/uL 0.33-0.92 EOS x10^3 (test code = 711-2) 0.05 10*3/uL 0.03-0.39 BASO x10^3 (test code = 704-7) 0.03 10*3/uL 0.01-0.07 [facility] Consult Notes Date/Time Note Provider Source 2023-08-30 13:19:15 Associated Order(s): CONSULT CARDIOLOGY [facility] Cardiology Consult PCP: Kenya Evans Date of Service: 08/30/2023 CHIEF COMPLAINT/reason for consult: Chest pain HISTORY OF PRESENT ILLNESS This is a 53 years old female with past med history of type 2 diabetes and morbid obesity. She came to [facility] for chest pain. It is left-sided [...] Left 01/14/2022 Surgeon: Kayla Lutz MD; Location: [facility] JOINT SURGERY right shoulder MAJOR JOINT INJECTION Bilateral 09/23/2022 Surgeon: Kayla Lutz MD; Location: [facility] Family History Problem Relation Age [...] further assistance. Bree Welsh MD, FACC, IVAN [employer] Division of Cardiovascular Medicine [facility] - Health History and Physical Notes Date/Time Note Provider Source 2023-08-29 20:24:02 MEDICINE [facility] ADMIT H&P Date of Service: 08/29/2023 CHIEF [...] Left 01/14/2022 Surgeon: Kayla Lutz MD; Location: [facility] JOINT SURGERY right shoulder MAJOR JOINT INJECTION Bilateral 09/23/2022 Surgeon: Kayla Lutz MD; Location: [facility] Family History Problem Relation Age [...] LABS/IMAGING - reviewed EXAM: XR CHEST 1 08/29/2023 10:59 AM HISTORY: [...] Prophylaxis: DVT- enoxaparin Code Status: Full Code [facility] EMERGENCY PHYSICIAN STAFF [facility] Notes Date/Time Note Provider Source 2023-09-02 12:28:06 TRANSITIONAL CARE MANAGEMENT ASSESSMENT 09/02/2023 Jazmín Rowell [id number] Jazmín Rowell is a 53 year old /White female was admitted on 08/29/23 to [facility], [facility] MED SURG. She was discharged on 08/30/23 with discharge disposition of HR- Routine Discharge. Admitting Physician: Annamaria Barker Discharge Diagnosis: Chest pain, unspecified type Linked Episodes Type: Episode: Status: Noted: Resolved: Last update: Updated by: TRANSITION OF CARE TCM Active 08/30/2023 09/02/2023 12:27 PM Veronika Espinoza RN Comments: TCM Qaa-[id number]-ii-face outreach documentation: Discharge Assessment Chart Assessed: 09/02/23 TCM Outreach Completed: 09/02/23 Care Transitions Nurse CM made f/u call to patient post-discharge. No answer, call went to voicemail. CM left discreet message with CM's call back information. DEVIN Salazar, RN, CCRN Telephone Recorder, Transitions of Care [email or web address] Appointments: [facility] Veronika Espinoza RN [facility] 2023-09-01 14:35:55 Care Transitions Nurse CM made f/u call to patient post-discharge. No answer, call went to voicemail. CM left discreet message with CM's call back information. CM will try again at a later time. DEVIN Salazar, RN, CCRN Telephone Recorder, Transitions of [facility] [email or web address] 2023-08-30 18:10:02 The patient was seen in the hospital for chest pain. Previously mildly abnormal nuclear stress test. Will proceed with CT coronary angiography to assess CAD. [facility] 2023-08-30 13:55:38 Problem: Discharge Planning [...] Julisa Parikh RN Outcome: Adequate for discharge [facility] 2023-08-30 01:54:12 Problem: Discharge Planning [...] Outcome: Progressing as expected IFER Rodriguez RN [facility] 2023-08-29 19:15:25 Report given to Samantha KIDD in M/S. IFER James RN [facility] 2023-08-29 15:10:00 Patient given ice for po challenge, patient actively vomiting immediately after challenge. 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 States N/V started last night. IFER Pathak RN [facility] 2023-08-29 10:17:00 AdmissionCare Guideline: Vomiting - OBS, Observation Based on the indications selected for the patient, the bed status of Admit to Observation was determined to be MET The following indications were selected as present at the time of evaluation of the patient: - Vomiting that persists despite emergency department care AdmissionCare documentation entered by: Marylou Driver [facility], 27th edition, Copyright ? 2022 [facility] All Rights Reserved. [id number]:31:55-06:00 [facility]
[2025-03-21] MEDS ORDERED: HYDROCODONE/APAP 5/325 MG TAB ONE (23:10)
[2025-03-21] MEDS ORDERED: ONDANSETRON 4 MG (ODT) TAB ONE (23:28)
[2025-03-22] MEDS ORDERED: KETOROLAC 30 MG/ML INJ ONE (00:50)
[2025-03-22 00:54] LABS: Urine Culture Reflex Order REFLEXED; Urine Microscopic Reflex YN ORDER UMIC
[2025-03-22] MEDS ORDERED: AMOX/K CLAV 875 MG TAB ONE (01:01)
--- NOTE | 2025-03-22 01:29 | ER ---
Nurse's Notes [facility] Name: Jazmín Perez Age: 54 yrs Sex: Female : 1970 Arrival Date: 03/21/2025 Time: 22:56 Bed 14 Private MD: Diagnosis: Fall on same level, unspecified;UTI/ Urinary tract infection, site not specified;Unspecified injury of head, initial encounter;Pain in left shoulder Presentation: 03/21 23:10 Chief complaint: Patient states: TRIPPED ON THE CARPET IN HER HOUSE AND FELL AND HIT [facility] HER HEAD ON THE BED 1 HR AGO. Coronavirus screen: At this time, the client does not indicate any symptoms associated with coronavirus-19. Ebola Screen: No symptoms or risks identified at this time. Initial Sepsis Screen: Does the patient meet any 2 criteria? No. Patient's initial sepsis screen is negative. Does the patient have a suspected source of infection? No. Patient's initial sepsis screen is negative. Risk Assessment: Do you want to hurt yourself or someone else? Patient reports no desire to harm self or others. Note TOOK A TYLENOL 500 MG. Onset of symptoms was March 21, 2025 at 22:00. 23:10 Method Of Arrival: Ambulatory [facility] 23:10 Acuity: LOU 3 jj7 Triage Assessment: 23:10 General: Appears in no apparent distress. uncomfortable, Behavior is calm, cooperative, jj7 appropriate for age. Historical: - Allergies: 23:13 Codeine; nauseous; jj7 - PMHx: 23:13 allergies; Anxiety; Diabetes - NIDDM; jj7 - PSHx: 23:13 Right hip; jj7 - Immunization history:: Adult Immunizations up to date. - Infectious Disease History:: Denies. - Social history:: Smoking status: Patient denies any tobacco usage or history of. Patient/guardian denies using alcohol, street drugs, IV drugs. Screenin:14 [facility] ED Fall Risk Assessment (Adult) History of falling in the last 3 months, jj7 including since admission Yes- single mechanical fall (1 pt) Confusion or Disorientation No (0 pts) Intoxicated or Sedated No (0 pts) Impaired Gait No (0 pts) Mobility Assist Device Used No (0 pt) Altered Elimination No (0 pt) Score/Fall Risk Level 0 - 2 = Low Risk Oriented to surroundings, Maintained a safe environment, Educated pt \T\ family on fall prevention, incl call for assistance when getting out of bed, Assessed \T\ reinforced patient's understanding of fall precautions. Abuse screen: Denies threats or abuse. Nutritional screening: No deficits noted. Tuberculosis screening: No symptoms or risk factors identified. Assessment: 23:10 General: Smells of urine. jj7 23:14 Reassessment: SEE TRIAGE ASSESSMENT. Pain: Complains of pain in scalp and anterior jj7 aspect of left shoulder. Neuro: Reports dizziness, headache. GI: Reports nausea. 23:14 Musculoskeletal: Reports pain in neck. jj7 Vital Signs: 23:10 BP 142 / 81; Pulse 94; Resp 20; Temp 98.2; Pulse Ox 96% ; Weight 96.62 kg; Height 5 ft. jj7 2 in. ; Pain 9/10; 03/22 00:15 BP 130 / 75; Pulse 80; Resp 20; Pulse Ox 100% ; jj7 01:15 BP 113 / 69; Pulse 73; Resp 20; Temp 98.1; Pulse Ox 97% ; jj7 03/21 23:10 Body Mass Index 38.96 (96.62 kg, 157.48 cm) jj7 03/21 23:10 Pain Scale: Adult jj7 ED Course: 03/21 22:58 Patient arrived in ED. jj6 23:00 Nadine Beatty FNP-C is [facility] kb 23:01 Hernan Stevens MD is Attending Physician. kb 23:10 Maria E Blackwell RN is Primary Nurse. jj7 23:13 Triage completed. jj7 23:13 Arm band placed on right wrist. Patient placed in an exam room, on a stretcher. jj7 23:14 Patient has correct armband on for positive identification. Bed in low position. Call j7 light in reach. Side rails up X 1. Provided Education on: USE OF CALL DURÁN. Client placed on continuous cardiac and pulse oximetry monitoring. NIBP monitoring applied. campus monitor on. 23:21 CT Head C Spine In Process Unspecified. EDMS 03/22 00:08 Shoulder Left (2 View) XRAY In Process Unspecified. EDMS 01:34 No provider procedures requiring assistance completed. Patient did not have IV access jj7 during this emergency room visit. Administered Medications: 03/21 23:38 Drug: HYDROcodone-acetaminophen PO 5 mg-325 mg 1 tabs PO once Route: PO; jj7 03/22 00:57 Follow up: Response: Pain is unchanged, physician notified jj7 03/21 23:38 Drug: Ondansetron Oral Disintegrating Tablet Oral Disintegrating Tablet 4 mg PO once jj7 Route: PO; 03/22 00:57 Follow up: Response: Marked relief of symptoms; Nausea is decreased jj7 01:13 Drug: Ketorolac IM 30 mg IM once Route: IM; Site: right deltoid; jj7 01:33 Follow up: Response: Marked relief of symptoms; Pain is decreased jj7 01:13 Drug: Amoxicillin-Clavulanate PO 875 mg PO once Route: PO; jj7 01:33 Follow up: Response: No adverse reaction jj7 Medication: 03/21 23:14 VIS not applicable for this client. jj7 Outcome: 03/22 01:28 Discharge ordered by MD. yu 01:34 Discharged to home ambulatory, with significant other, jj7 01:34 Condition: improved 01:34 Discharge instructions given to family, Instructed on discharge instructions, medication usage, Demonstrated understanding of instructions, medications, Prescriptions given X 3, 01:34 Patient left the ED. jj7 Signatures: Dispatcher [employer] EDMS Nadine Beatty, LISETTE GONZALEZP-Yaneli Núñez jj6 Maria E Blackwell, RN RN jj7 Corrections: (The following items were deleted from the chart) 00:15 03/21 23:10 BP 130 / 75; Pulse 80bpm; Resp 20bpm; Pulse Ox 100%; jj7 jj7
--- NOTE | 2025-03-22 01:29 | EDPHYS ---
Physician Documentation [facility] Name: Jazmín Perez Age: 54 yrs Sex: Female : 1970 Arrival Date: 03/21/2025 Time: 22:56 Bed 14 Private MD: ED Physician Hernan Stevens HPI: 03/21 23:06 This 54 yrs old Female presents to ER via Unassigned with complaints of Fall kb Injury, Dizziness. 23:06 Pt is a 54 year old female who presents after fall from standing position. States she kb tripped when walking into her bedroom and hit her head on the bedframe. Denies loc. Reports dizziness. Reports pain to left shoulder and neck as well. . Historical: - Allergies: 23:13 Codeine; nauseous; jj7 - PMHx: 23:13 allergies; Anxiety; Diabetes - NIDDM; jj7 - PSHx: 23:13 Right hip; jj7 - Immunization history:: Adult Immunizations up to date. - Infectious Disease History:: Denies. - Social history:: Smoking status: Patient denies any tobacco usage or history of. Patient/guardian denies using alcohol, street drugs, IV drugs. ROS: 23:05 Constitutional: As per HPI kb Exam: 23:05 Constitutional: This is a well developed, well nourished patient who is awake, alert, kb and in no acute distress. ENT: Moist Mucous membranes Cardiovascular: Regular rate Respiratory: Respirations even and unlabored. No increased work of breathing. Talking in full sentences Skin: Warm, dry with normal turgor. Normal color. Neuro: Awake and alert, GCS 15, oriented to person, place, time, and situation. 23:05 Head/face: Noted is no obvious of injury or deformity except tenderness, that is moderate, of the left occipital area, 23:05 Neck: External neck: tenderness, that is mild, of the left mid cervical area, right mid cervical area, left trapezius, lower cervical area and right trapezius, 23:05 Musculoskeletal/extremity: Extremities: grossly normal except: noted in the anterior aspect of left shoulder: decreased ROM, pain, tenderness, ROM: limited active range of motion due to pain, Circulation is intact in all extremities. Sensation intact. Vital Signs: 23:10 BP 142 / 81; Pulse 94; Resp 20; Temp 98.2; Pulse Ox 96% ; Weight 96.62 kg; Height 5 ft. jj7 2 in. ; Pain 9/10; 03/22 00:15 BP 130 / 75; Pulse 80; Resp 20; Pulse Ox 100% ; j7 01:15 BP 113 / 69; Pulse 73; Resp 20; Temp 98.1; Pulse Ox 97% ; jj7 03/21 23:10 Body Mass Index 38.96 (96.62 kg, 157.48 cm) j7 03/21 23:10 Pain Scale: Adult jj7 MDM: 03/21 23:01 Medical Screening Exam initiated kb 03/22 00:27 Data reviewed: vital signs, nurses notes. Independent interpretation of the following kb test(s) in the Emergency Department X-Ray: My interpretation is no fracture on shoulder xray. 01:29 Differential diagnosis: closed head injury, contusion, fracture, sprain, strain. kb Counseling: I had a detailed discussion with the patient and/or guardian regarding the historical points, exam findings, and any diagnostic results supporting the discharge/admit diagnosis, radiology results, the need for outpatient follow up, a family practitioner, to return to the emergency department if symptoms worsen or persist or if there are any questions or concerns that arise at home. 03/21 23:39 Order name: UA Rfx Sami Cult if indicated; Complete Time: 00:58 kb 03/22 01:00 Order name: Urine Culture EDPA 03/21 23:04 Order name: CT Head C Spine 03/21 23:04 Order name: Shoulder Left (2 View) XRAY Administered Medications: 03/21 23:38 Drug: HYDROcodone-acetaminophen PO 5 mg-325 mg 1 tabs PO once Route: PO; jj7 03/22 00:57 Follow up: Response: Pain is unchanged, physician notified j7 03/21 23:38 Drug: Ondansetron Oral Disintegrating Tablet Oral Disintegrating Tablet 4 mg PO once j7 Route: PO; 03/22 00:57 Follow up: Response: Marked relief of symptoms; Nausea is decreased j7 01:13 Drug: Ketorolac IM 30 mg IM once Route: IM; Site: right deltoid; j7 01:33 Follow up: Response: Marked relief of symptoms; Pain is decreased j7 01:13 Drug: Amoxicillin-Clavulanate PO 875 mg PO once Route: PO; jj7 01:33 Follow up: Response: No adverse reaction jj7 Disposition: 06:40 Co-signature as Attending Physician, Hernan Stevens MD I agree with the assessment sp4 and plan of care. I reviewed the patient's care provided by the Advanced Practice Provider and agree with the diagnosis and treatment plan. Disposition Summary: 03/22/25 01:28 Discharge Ordered Notes: Location: Home kb Condition: Stable kb Diagnosis - Fall on same level, unspecified kb - UTI/ Urinary tract infection, site not specified kb - Unspecified injury of head, initial encounter kb - Pain in left shoulder kb Followup: kb - With: Emergency Department - When: As needed - Reason: Worsening of condition Followup: kb - With: Private Physician - When: 2 - 3 days - Reason: Recheck today's complaints, Continuance of care, Re-evaluation by your physician Discharge Instructions: - Discharge Summary Sheet kb - Musculoskeletal Pain kb - Urinary Tract Infection, Adult, [id number] kb - Head Injury, Adult, Etlx-fi-Lyty kb Forms: - Medication Reconciliation Form kb - Antibiotic Education kb - Prescription Opioid Use kb - Patient Portal Instructions kb - Leadership Thank You Letter kb Prescriptions: - Augmentin 875-125 mg Oral Tablet - take 1 tablet ORAL route every 12 hours for 10 days; 20 tablet; Refills: 0, kb Product Selection Permitted - Diclofenac Sodium 75 mg Oral tablet, delayed release (enteric coated) - take 1 tablet ORAL route 2 times per day As needed; 30 tablet; Refills: 0, kb Product Selection Permitted - orphenadrine citrate 100 mg Oral Tablet Sustained Release - take 1 tablet ORAL route 2 times per day As needed; 20 tablet; Refills: 0, kb Product Selection Permitted Signatures: Dispatcher [employer] Nadine Aviles, LISETTE GONZALEZP-Maria E Min RN RN Hernan Chamberlain MD MD sp4
--- NOTE | 2025-03-22 01:29 | RAD REPORT ---
EXAM: Shoulder Left 2+ Views XR Left Shoulder 2 Views HISTORY: pain COMPARISON: None TECHNIQUE: Left Shoulder 2 Views FINDINGS: No fracture or dislocation. No significant sclerotic/lytic bone lesion. Left acromioclavicular joint space shows mild narrowing. Linear metallic density measuring 2.4 cm length overlies left upper arm midlevel soft tissues. IMPRESSION: 1. Mild left acromioclavicular joint space narrowing. 2. Linear metallic density overlies left upper arm midlevel soft tissues. This more likely represents object located outside patient and less likely foreign body inside patien t. Clinical correlation recommended. Electronically signed by: Delano Cota MD 03/22/2025 01:22 AM CDT RP Due to temporary technical issues with the PACS/[email or web address] reporting system, reports are being americo d by the in-house radiologist without review as a courtesy to ensure prompt reporting the interpreting radiologist is fully responsible for the content of the report. Transcribed Date/Time: 03/22/2025 1:29 AM
--- NOTE | 2025-03-22 01:59 | RAD REPORT ---
EXAM: CT Head and Cervical Spine Without Intravenous Contrast CLINICAL HISTORY: The patient is 54 years old and is Female; TRAUMA TECHNIQUE: Axial computed tomography images of the head/brain and cervical spine without intravenous contrast. Sagittal and coronal reformatted images were created and reviewed. This CT exam was performed using one or more of the following dose reduction techniques: automated exposure control, adjustmen t of the mA and/or kV according to patient size, and/or use of iterative reconstruction technique. COMPARISON: August 05, 2024 FINDINGS: BRAIN: Unremarkable. No hemorrhage. No significant white matter disease. No edema. VENTRICLES: Unremarkable. No ventriculomegaly. SKULL: No acute fracture. SINUSES: Unremarkable as visualized. No acute sinusitis. MASTOID AIR CELLS: Unremarkable as visualized. No mastoid effusion. VERTEBRAE: Mild reversal of the normal cervical curvature is present. Vertebral body heights an d alignment are maintained. There is no acute fracture. Calcification of posterior to the odontoid is noted. DISCS/SPINAL CANAL/NEURAL FORAMINA: There is multi-level intervertebral disc height loss. There a re disc-osteophyte complexes at several levels, with associated mild spinal canal narrowing. There is also facet hypertrophy and uncovertebral joint osteophytosis, with associated multilevel neural fo raminal narrowing. SOFT TISSUES: The soft tissues are normal. LUNG APICES: The lung apices are clear. IMPRESSION: 1. No acute intracranial findings. 2. Mild reversal of the normal cervical curvature is present. Findings may be secondary to patien t position versus muscle spasm. Due to temporary technical issues with the PACS/[employer] reporting system, reports are being americo d by the in-house radiologist without review as a courtesy to ensure prompt reporting the interpreting radiologist is fully responsible for the content of the report. Electronically signed by: Nikki Morales MD 03/22/2025 01:12 AM CDT RP Transcribed Date/Time: 03/22/2025 1:58 AM
[2025-03-22 09:23] VITALS: BP 113/69; TEMP 98.1; O2SAT 97
== END 2025-03-22 01:34 | disposition home or self-care (01) ==
LOC: ER 22:56
DX: S09.90XA Unspecified injury of head, initial encounter (principal); M25.512 Pain in left shoulder; M54.2 Cervicalgia; N39.0 Urinary tract infection, site not specified; W18.30XA Fall on same level, unspecified, initial encounter
CPT/HCPCS: 81001; 70450; 72125; 73030; Q0162; 87086; 87088